=== PATIENT | female | born 1945 | race Caucasian/White ===

== ENCOUNTER 2017-12-30 09:44 | Inpatient (IN) | payer MEDICARE, OTHER, SELFPAY ==
[2017-12-30] VITALS (24 sets, daily range): BP systolic 100–158; BP diastolic 59–105; PULSE 90–140; RESP 14–22; TEMP 36.3–37; O2SAT 94–98; BMI 31.9; BMI 30.9
--- NOTE | 2017-12-30 10:03 | EKG12_ITS ---
Test Reason : Blood Pressure : / mmHG Vent. Rate : 131 BPM Atrial Rate : 120 BPM P-R Int : 000 ms QRS Dur : 088 ms QT Int : 330 ms P-R-T Axes : 000 -17 043 degrees QTc Int : 487 ms Atrial fibrillation Anteroseptal infarct , age undetermined Abnormal ECG Confirmed by ELOISE GILBERT, JAXON ([id number]), science editor NORMA SALEH ([id number] on 01/01/2018 3:28:32 PM Referred By: PRITI Confirmed By:JAXON NAVAS MD
--- NOTE | 2017-12-30 10:03 | RAD_ITS ---
STUDY: X-RAY CHEST REASON FOR EXAM: Female, 72 years old. Shortness of breath x5 days TECHNIQUE: Single AP portable view of the chest. COMPARISON: None. FINDINGS: There is hyperinflation of the lungs consistent with chronic obstructive lung disease (COPD). Right lung is clear. There is left upper lobe airspace disease with questionable nodule measuring 3.3 x 1.8 cm. There is no demonstrated pleural abnormality. There is mild cardiac enlargement. Normal mediastinum and mike. Normal visualized pulmonary arteries. Normal visualized aortic arch and descending thoracic aorta. There is a dextroscoliosis of the thoracic spine. Normal visualized ribs, clavicles, and shoulders. There is no demonstrated abnormality of the visualized soft tissue structures of the upper abdomen. RAD/Chest 1 View (Portable) IMPRESSION: Right lung is clear. Left upper lobe airspace disease with possible nodule. Underlying neoplastic process cannot be excluded with post obstructive pneumonia. Recommend CT chest to further evaluate Electronically Signed: Vishal Ruiz DO at 10:45 EDT Tel , Service support ,
[2017-12-30 10:14] LABS: Absolute Lymphocyte Count 1.65 X10^3/ul (0.83-4.51); Basophil# 0.03 X10^3/uL; Basophil% 0.5 % (0-1); Eosinophil# 0.14 X10^3/uL; Eosinophils% 2.2 % (0-5); Hematocrit 47.9 % (37-47); Hemoglobin 15.3 g/dl (12.0-15.0); Lymphocyte # 1.65 X10^3/ul (4.0); Lymphocyte % 25.9 % (19-41); Mean Corp Hgb Conc 31.9 g/gl (32-36); Mean Corpuscular Hgb 32.1 pg (27.0-32.0); Mean Corpuscular Volume 100.6 fL (81-99); Mean Platelet Vol. 9.2 fl (6.2-12.0); Monocyte# 0.52 X10^3/uL; Monocyte% 8.2 % (0-10); Neutrophil # 4.01 X10^3/uL (2.7-7.7); Platelet Count 234 K/mm3 (150-450); RBC Distribution Width SD 47.3 fl (35.1-43.9); Red Blood Count 4.76 M/mm3 (4.2-5.4); White Blood Count 6.4 K/mm3 (4.4-11.0)
[2017-12-30 10:18] LABS: POSITIVE COUNT NO; POSITIVE DIFFERENTIAL NO; POSITIVE MORPHOLOGY NO
[2017-12-30] MEDS: dilTIAZem 25 MG/5 ML Vial 20 MG IV BOLUS (10:24)
[2017-12-30 10:27] LABS: Anion Gap 8 (5-15); BUN 6 mg/dL (7-18); BUN/Creat Ratio 6.3 RATIO (10-20); Calcium,Total 9.7 mg/dL (8.5-10.1); Chloride 102 mmol/L (98-107); Creatinine, Serum 0.94 mg/dL (0.55-1.02); EST Glomerular Filtration Rate 62 mL/min (>60); Est Glom Filt Rate - Afr Amer 75 mL/min (>60); Glucose 112 mg/dL (74-106); Potassium 3.9 mmol/L (3.5-5.1); Sodium Level 140 mmol/L (136-145)
--- NOTE | 2017-12-30 11:09 | CT_ITS ---
STUDY: CTA CHEST REASON FOR EXAM: Female, 72 years old. Chest pain and shortness of breath. Possible chest mass. RADIATION DOSAGE (If Supplied By Facility): CTDIvol = ( 11.9 ) mGy, DLP = ( 506.09 ) mGycm TECHNIQUE: The examination was performed with the intravenous administration of 100 ml of Isovue 300 contrast material. Post-processing of the angiographic images was performed, with multiplanar reformation and 3D reconstruction. Individualized dose optimization techniques were used for this CT. COMPARISON: 07/17/2010 FINDINGS: Normal enhancement of the main pulmonary artery and right and left pulmonary arteries. Normal enhancement of the bilateral peripheral pulmonary arteries. There is no demonstrated pulmonary embolism. Normal thoracic aorta and visualized great vessels. There is no demonstrated aortic dissection. Mild cardiomegaly. There is a component of pectus excavatum. Normal mediastinum. Normal hilar regions. Normal visualized trachea and bronchi. The lungs are hyper expanded, with flattening of the hemidiaphragms. Small amount of right lower lobe infiltrate could represent infection. Normal pleura. In the left hemithorax, there again is noted to be a dense calcified mass involving the third rib anteriorly. Patient is status post left mastectomy with left axillary lymph node dissection. This calcified mass involving the rib is essentially unchanged however, there has been development of a soft tissue mass versus area of scarring in the left upper lobe measuring 2.9 x 1.9 cm. No other pulmonary masses or nodules are seen. Unsure if this is radiation scarring versus recurrent disease. There is thickening of the skin of the right breast suggesting prior radiation involvement as well. Remaining osseous structures demonstrate degenerative change with some scoliosis. Normal visualized upper abdomen. CT/CTA Chest W/WO Contrast IMPRESSION: 1. Negative for pulmonary emphysema or thoracic aortic dissection 2. As compared to the exam from 2009, there is a stable calcified mass involving the left anterior third rib and chest wall however, there has been development of a spiculated masslike lesion in the left upper lobe measuring 2.9 x 1.9 cm. Recurrent or metastatic disease cannot be excluded. However, this may be related to post radiation changes. PET/CT versus tissue sampling may be needed to further evaluate 3. Subtle right lower lobe infiltrate could represent infection 4. Patient is status post left mastectomy with left axillary lymph node dissection. Postradiation changes noted of the right breast with skin thickening. Electronically Signed: Visahl Ruiz DO at 14:33 EDT Tel , Service support ,
[2017-12-30] MEDS: dilTIAZem 25 MG/5 ML Vial IV BOLUS (11:28)
--- NOTE | 2017-12-30 12:22 | ED.RN ---
WENT TO [facility]MED[facility] PT FOR CT SCAN WITH CONTRAST. PT APREHENSIVE AND WOUND LIKE TO DISCUSS WITH DR PRIOR TO MEDS/TEST
[2017-12-30] MEDS: DiphenhydrAMINE 50 MG/ML Syringe IV (12:33)
[2017-12-30] MEDS: MethylPREDNISolone 125 MG/2 ML Vial IV (12:33)
--- NOTE | 2017-12-30 15:03 | ED.VISSUMM ---
- ER Visit Summary Date of Service: 12/30/17 Chief Complaint: [Shortness of breath] History of Present Illness: The patient is a 72 F [presents with shortness of breath that started about 2 weeks ago. Patient also describes exertional dyspnea. Patient denies any chest pain or palpitations. Patient's legs have been swollen for about 4 days. Patient is gained about 5 pounds. Patient seen by primary care physician today sent to the ER for further workup and evaluation. Patient had EKG in the office that showed new onset A. fib RVR.] Physical Examination: [HEENT-PERRLA, EOMI. Cranial nerves II through XII grossly intact. TMs clear. Mucous membranes moist. No adenopathy. Cardiovascular-irregularly irregular, no murmurs auscultated. Lungs-clear to auscultation, chest wall stable without crepitus or subcu emphysema Abdomen-normoactive bowel sounds, soft, nontender, no rebound or rigidity, no peritoneal signs. Extremities-intact ?4, normal range of motion, normal pulses, atraumatic]. Patient has +2 edema both lower extremities. Test Results: EKG obtained on arrival showed atrial fibrillation with a ventricular rate of 131 bpm. Questionable old anterior wall infarct noted. CBC with differential obtained showed a white blood cell count of 6.4, hemoglobin 15, hematocrit 48, platelets 234. Chemistries unremarkable. Troponin was less than 0.02. BNP was 223. Chest x-ray showed questionable nodule left upper lobe and they recommended obtaining a CT scan to evaluate further. CT scan of the chest with IV contrast showed no evidence for PE or dissection. Patient was noted to have a left upper lobe spiculated mass which could be from prior radiation or may represent a cancerous lesion potentially. Patient tells me that she has had some scarring in the left upper lobe from prior radiation that she is aware of. Radiology recommended potentially obtaining a PET scan to evaluate further. [] Emergency Department Course and Treatment: [Patient was started on a Cardizem drip] Treatment Plan: [Admit for further workup and evaluation] Disposition: [Admit] Impression: [Atrial fibrillation with rapid ventricular response-new onset] This note was generated with [email or web address] dictation software. It may contain incorrect words, spelling, and punctuation that were not noted in review of the chart prior to signing ED Disposition - Plan for ED Patient: Chief Complaint: Palpitations Referrals: Juan Brandt MD [Primary Care Provider] -
--- NOTE | 2017-12-30 15:38 | PCM.HP.STD ---
Problem List (1) Acute CHF Status: Acute (2) New onset A. fib with RVR Status: Acute (3) History of breast cancer Status: Chronic (4) COPD (chronic obstructive pulmonary disease) Status: Chronic (5) Hypertension Status: Chronic History of Present Illness Date of Admission: 12/30/17 Chief Complaint: Shortness of breath. The patient is a 72 year old F with past medical history as mentioned above presented to the medicine because of shortness of breath. Her symptoms started around 2 weeks ago with progressive shortness of breath, initially was with moderate exertion that progressed to become even with minimal exertion and sometimes at rest, aggravated by activity, minimally relieved with rest associated with leg swelling more on the right leg as well as orthopnea. She mentioned that she sleeps on a recliner because of her back pain but over the last week, she has been also complaining of shortness of breath when she lay flat. She denied associated chest pain, dictation, dizziness or lightheadedness. Today, she went to her PCPs office for bilateral leg swelling and shortness of breath, EKG performed and she was found to be in A. fib with RVR and she was sent to the emergency department for evaluation. In the emergency room, she was in A. fib with RVR, heart rate has been in the 130s, blood pressure stable. She was dyspneic and tachypneic, pulse ox was 97% on room air. She was afebrile. Her routine blood work was unremarkable. Troponin was negative. BNP was 223. Her EKG revealed A. fib with RVR, rate has been in 130s, no acute ischemic changes. Chest x-ray revealed left upper lobe opacity, irregular. CTA chest revealed no evidence of PE or dissection, revealed spiculated masslike lesion in the left upper lobe which could be due to lung scarring versus possible metastasis. The patient mentioned that she is aware that she has lung scarring on the left upper lung and her doctor is aware of this as well. Admitted for new onset A. fib with RVR and acute probably systolic CHF. Past Medical History Past Medical History (Chronic Problems): Chronic Problems History of breast cancer (Chronic) COPD (chronic obstructive pulmonary disease) (Chronic) Hypertension (Chronic) Allergies albuterol sulfate [From Combivent] Allergy (Verified 12/30/17 09:50) Swelling ipratropium bromide [From Combivent] Allergy (Verified 12/30/17 09:50) Swelling metoprolol Allergy (Verified 12/30/17 09:50) Laryngospasms Sulfa (Sulfonamide Antibiotics) Allergy (Verified 12/30/17 09:50) Rash beclomethasone [From Qvar] Adverse Reaction (Verified 12/30/17 09:50) COUGHING benzalkonium chloride [From Merthiolate (benzalkonium)] Adverse Reaction (Verified 12/30/17 09:50) Other codeine Adverse Reaction (Verified 12/30/17 09:50) Other doxycycline Adverse Reaction (Verified 12/30/17 09:50) Abd cramps/diarrhea formoterol fumarate [From Dulera] Adverse Reaction (Verified 12/30/17 09:50) Other hydrochlorothiazide Adverse Reaction (Verified 12/30/17 09:50) Other ibuprofen [From Advil] Adverse Reaction (Verified 12/30/17 09:50) Other iodine Adverse Reaction (Verified 12/30/17 09:50) Itching merbromin Adverse Reaction (Verified 12/30/17 09:50) Other mometasone furoate [From Dulera] Adverse Reaction (Verified 12/30/17 09:50) Other prednisone Adverse Reaction (Verified 12/30/17 09:50) Abd cramps/diarrhea PLASTIC TAPE Allergy (Uncoded 12/30/17 09:50) Rash Home Medications: Ambulatory Orders Medication Instructions Recorded Amlodipine [Norvasc] 5 mg PO DAILY 04/11/15 Doxazosin Mesylate [Cardura] 0.5 mg PO QHS 04/11/15 Fluticasone/Salmeterol [Advair 1 puff INHALATION BID 04/11/15 250/50 Mcg Diskus] Quinapril HCl [Accupril] 20 mg PO BID 04/11/15 Acetaminophen [Tylenol] 325 mg PO PRN PRN 10/16/16 Albuterol Inhaler [Ventolin Hfa 1 - 2 puff INHALATION Q4H PRN PRN 10/16/16 (SP)] Multivitamins,Therapeutic 1 tablet PO DAILY 10/16/16 [Multivitamin] Vitamin B Complex 1 each PO DAILY 10/16/16 Vitamin E 400 unit PO DAILY 10/16/16 Surgical History: mastectomy Psychiatric History: No pertinent psych hx MEDICAL RESEARCHER 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 Denies: Chest Pain, Chest Pressure, Light Headedness, Orthopnea, Paroxysmal Noc. Dyspnea, Syncope Respiratory: Reports: Cough, Shortness of Breath, Shortness of breath at rest, Shortness of breath upon exertion. Denies: Pleuritic Pain, Sputum production, Wheezing Gastrointestinal: Denies: Abdominal Pain, Constipation, Diarrhea, Nausea, Vomiting Genitourinary: Denies: Dysuria, Frequency, Hematuria Musculoskeletal: Denies: Arm Pain, Back Pain Skin: Denies: Dryness, Rash Neurological: Denies: Balance problems, Double vision, Slurred speech, Confusion, Headaches, Incoordination Psychiatric: Denies: Anxiety, Depression Endocrine: Denies: Change in Body Habitus, Polydipsia VTE Information - Inpt Only VTE Present on Admission: No VTE Mechan Device Prophylaxis: None VTE Pharm Prophylaxis ordered?: No Patient Problems: Active and Suspected Problems Acute CHF (Acute) New onset A. fib with RVR (Acute) - Physical Exam General: Alert, Oriented x3, Cooperative, - - Moderately short of breath. HEENT: Atraumatic, PERRLA, EOMI Oral: Moist Mucosa, No Gingival or Mucosal Lesions/ Ulcerations Neck: Supple, No JVD, Negative Carotid Bruits, Trachea Midline, Thyroid Normal Size and Texture Lungs: No wheeze, Diminished, Rales, Rhonchi, Short of Breath, - - Decreased breath sounds at the bases, bilateral basal crackles, rhonchi. Cardiovascular: Normal S1, Normal S2, No murmurs, PMI Normal, Irregular Rate, Tachycardic Abdomen: Bowel Sounds Present, Soft, Non Tender, Non-Distended, No Hepato-splenomegaly Extremities: No clubbing, No cyanosis, Edema - Trace edema on the left leg,++ edema on the right leg. Skin: No rashes, No breakdown Lymphatic: No Cervical, Supraclavicular, or Inguinal Adenopathy Neurological: Cranial nerves II-XII grossly intact, Motor Exam 5/5 strength throughout Psych/Mental Status: Normal Affect, Appropriate, Alert and oriented to time, place, person, mood and affect Vital Signs Temp Pulse Resp BP Pulse Ox 98.2 F 115 H 20 H 123/90 H 96 12/30/17 09:46 12/30/17 15:35 12/30/17 15:35 12/30/17 15:35 12/30/17 15:35 Laboratory Tests 12/30/17 12/30/17 12/30/17 Range/Units 10:00 10:00 10:00 WBC 6.4 (4.4-11.0) K/mm3 RBC 4.76 (4.2-5.4) M/mm3 Hgb 15.3 H (12.0-15.0) g/dl Hct 47.9 H (37-47) % MCV 100.6 H (81-99) fL MCH 32.1 H (27.0-32.0) pg MCHC 31.9 L (32-36) g/gl RDW 13.0 (11.6-14.6) % RDW Differential 47.3 H (35.1-43.9) fl Plt Count 234 (150-450) K/mm3 MPV 9.2 (6.2-12.0) fl Immature Gran % (Auto) 0.200 (0.0-0.9) % Neut % (Auto) 63.0 (47-70) % Lymph % (Auto) 25.9 (19-41) % [place] % (Auto) 8.2 (0-10) % Eos % (Auto) 2.2 (0-5) % Baso % (Auto) 0.5 (0-1) % Absolute Neuts (auto) 4.0 (2.0-7.7) X10^3/uL Absolute Lymphs (auto) 1.65 (0.83-4.51) X10^3/ul Total Counted Not Reportable Sodium 140 (136-145) mmol/L Potassium 3.9 (3.5-5.1) mmol/L Chloride 102 (98-107) mmol/L Carbon Dioxide 30.0 (21.0-32.0) mmol/L Anion Gap 8 (5-15) BUN 6 L (7-18) mg/dL Creatinine 0.94 (0.55-1.02) mg/dL Estim Creat Clear Calc 47.40 ml/min Est GFR (MDRD) Af Amer 75 (>60) mL/min Est GFR (MDRD) Non-Af 62 (>60) mL/min BUN/Creatinine Ratio 6.3 L (10-20) RATIO Glucose 112 H (74-106) mg/dL Calcium 9.7 (8.5-10.1) mg/dL Troponin I < 0.02 (<0.06) ng/mL B-Natriuretic Peptide 223.0 H (0-100) pg/mL Clinical Impression(s) from Imaging Studies Chest X-Ray 12/30/17 10:03 IMPRESSION: Right lung is clear. Left upper lobe airspace disease with possible nodule. Underlying neoplastic process cannot be excluded with post obstructive pneumonia. Recommend CT chest to further evaluate Electronically Signed: Vishal Ruiz DO at 10:45 EDT Tel , Service support , Chest CTA 12/30/17 11:09 IMPRESSION: 1. Negative for pulmonary emphysema or thoracic aortic dissection 2. As compared to the exam from 2009, there is a stable calcified mass involving the left anterior third rib and chest wall however, there has been development of a spiculated masslike lesion in the left upper lobe measuring 2.9 x 1.9 cm. Recurrent or metastatic disease cannot be excluded. However, this may be related to post radiation changes. PET/CT versus tissue sampling may be needed to further evaluate 3. Subtle right lower lobe infiltrate could represent infection 4. Patient is status post left mastectomy with left axillary lymph node dissection. Postradiation changes noted of the right breast with skin thickening. Electronically Signed: Vishal Ruiz DO at 14:33 EDT Tel , Service support , Assessment/Plan Active and Suspected Problems Acute CHF (Acute) New onset A. fib with RVR (Acute) This is a 72 years old female patient seen because of shortness of breath and leg swelling and she was found to have new onset A. fib with RVR and acute probably systolic CHF. #1 new onset/newly diagnosed A. fib with RVR: Reviewed, revealed A. fib with RVR, rate has been in 130s, no acute ischemic changes. Patient received 2 bolus of IV Cardizem and she remained in 130s, blood pressure stable and she was started on IV Cardizem drip. First troponin is negative. Plan: Admit to PCU, cardiac monitoring, serial cardiac enzymes, repeat EKG tomorrow morning, continue IV Cardizem drip, start therapeutic Lovenox twice daily, TSH, serum magnesium, 2D echocardiogram, cardiology consult. Her [id number] is 4 and she is at moderate risk of stroke and she is a candidate for anticoagulation. #2 acute probably systolic CHF: This is based on symptoms of shortness of breath, leg edema and orthopnea as well as elevated BNP and chest x-ray findings. Plan: Diuresis with IV Lasix, 2D echocardiogram, further dissection to less than 1500 cc daily, continue Accupril. , Cardiology consult. She is allergic to beta-blockers. #3 questionable left upper lobe mass: CTA chest reviewed, revealed left upper lobe spiculated masslike. Patient mentioned she is aware she has scarring on her left lung due to radiation to her left breast cancer many years ago. I would recommend follow-up with her oncologist upon discharge. #3 history of breast cancer status post total left mastectomy and right lumpectomy: Status post chemotherapy and radiation. In remission at this time, plan to follow-up with her PCP and oncology as outpatient. #5 hypertension: Blood pressure stable, continue Norvasc and Accupril. #6 COPD: Pulse ox is normal on room air. She is allergic to albuterol and ipratropium bromide. Plan to continue Ventolin inhaler and Advair. #7 DVT prophylaxis: She will be on therapeutic Lovenox twice daily. This note was generated with [employer] dictation software. It may contain incorrect words, spelling, and punctuation that were not noted in checking the note before signing. Code Visit Inpatient E&M: 72712 Init Hosp L3
--- NOTE | 2017-12-30 15:52 | HP.PCM_ITS ---
Problem List (1) Acute CHF Status: Acute (2) New onset A. fib with RVR Status: Acute (3) History of breast cancer Status: Chronic (4) COPD (chronic obstructive pulmonary disease) Status: Chronic (5) Hypertension Status: Chronic History of Present Illness Date of Admission: 12/30/17 Chief Complaint: Shortness of breath. The patient is a 72 year old F with past medical history as mentioned above presented to the medicine because of shortness of breath. Her symptoms started around 2 weeks ago with progressive shortness of breath, initially was with moderate exertion that progressed to become even with minimal exertion and sometimes at rest, aggravated by activity, minimally relieved with rest associated with leg swelling more on the right leg as well as orthopnea. She mentioned that she sleeps on a recliner because of her back pain but over the last week, she has been also complaining of shortness of breath when she lay flat. She denied associated chest pain, dictation, dizziness or lightheadedness. Today, she went to her PCPs office for bilateral leg swelling and shortness of breath, EKG performed and she was found to be in A. fib with RVR and she was sent to the emergency department for evaluation. In the emergency room, she was in A. fib with RVR, heart rate has been in the 130s, blood pressure stable. She was dyspneic and tachypneic, pulse ox was 97% on room air. She was afebrile. Her routine blood work was unremarkable. Troponin was negative. BNP was 223. Her EKG revealed A. fib with RVR, rate has been in 130s, no acute ischemic changes. Chest x-ray revealed left upper lobe opacity, irregular. CTA chest revealed no evidence of PE or dissection, revealed spiculated masslike lesion in the left upper lobe which could be due to lung scarring versus possible metastasis. The patient mentioned that she is aware that she has lung scarring on the left upper lung and her doctor is aware of this as well. Admitted for new onset A. fib with RVR and acute probably systolic CHF. Past Medical History Past Medical History (Chronic Problems): Chronic Problems History of breast cancer (Chronic) COPD (chronic obstructive pulmonary disease) (Chronic) Hypertension (Chronic) Allergies albuterol sulfate [From Combivent] Allergy (Verified 12/30/17 09:50) Swelling ipratropium bromide [From Combivent] Allergy (Verified 12/30/17 09:50) Swelling metoprolol Allergy (Verified 12/30/17 09:50) Laryngospasms Sulfa (Sulfonamide Antibiotics) Allergy (Verified 12/30/17 09:50) Rash beclomethasone [From Qvar] Adverse Reaction (Verified 12/30/17 09:50) COUGHING benzalkonium chloride [From Merthiolate (benzalkonium)] Adverse Reaction ( Verified 12/30/17 09:50) Other codeine Adverse Reaction (Verified 12/30/17 09:50) Other doxycycline Adverse Reaction (Verified 12/30/17 09:50) Abd cramps/diarrhea formoterol fumarate [From Dulera] Adverse Reaction (Verified 12/30/17 09:50) Other hydrochlorothiazide Adverse Reaction (Verified 12/30/17 09:50) Other ibuprofen [From Advil] Adverse Reaction (Verified 12/30/17 09:50) Other iodine Adverse Reaction (Verified 12/30/17 09:50) Itching merbromin Adverse Reaction (Verified 12/30/17 09:50) Other mometasone furoate [From Dulera] Adverse Reaction (Verified 12/30/17 09:50) Other prednisone Adverse Reaction (Verified 12/30/17 09:50) Abd cramps/diarrhea PLASTIC TAPE Allergy (Uncoded 12/30/17 09:50) Rash Home Medications: Ambulatory Orders Medication Instructions Recorded Amlodipine [Norvasc] 5 mg PO DAILY 04/11/15 Doxazosin Mesylate [Cardura] 0.5 mg PO QHS 04/11/15 Fluticasone/Salmeterol [Advair 1 puff INHALATION BID 04/11/15 250/50 Mcg Diskus] Quinapril HCl [Accupril] 20 mg PO BID 04/11/15 Acetaminophen [Tylenol] 325 mg PO PRN PRN 10/16/16 Albuterol Inhaler [Ventolin Hfa 1 - 2 puff INHALATION Q4H PRN PRN 10/16/16 (SP)] Multivitamins,Therapeutic 1 tablet PO DAILY 10/16/16 [Multivitamin] Vitamin B Complex 1 each PO DAILY 10/16/16 Vitamin E 400 unit PO DAILY 10/16/16 Surgical History: mastectomy Psychiatric History: No pertinent psych hx 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 Denies: Chest Pain, Chest Pressure, Light Headedness, Orthopnea, Paroxysmal Noc. Dyspnea, Syncope Respiratory: Reports: Cough, Shortness of Breath, Shortness of breath at rest, Shortness of breath upon exertion. Denies: Pleuritic Pain, Sputum production, Wheezing Gastrointestinal: Denies: Abdominal Pain, Constipation, Diarrhea, Nausea, Vomiting Genitourinary: Denies: Dysuria, Frequency, Hematuria Musculoskeletal: Denies: Arm Pain, Back Pain Skin: Denies: Dryness, Rash Neurological: Denies: Balance problems, Double vision, Slurred speech, Confusion , Headaches, Incoordination Psychiatric: Denies: Anxiety, Depression Endocrine: Denies: Change in Body Habitus, Polydipsia VTE Information - Inpt Only VTE Present on Admission: No VTE Mechan Device Prophylaxis: None VTE Pharm Prophylaxis ordered?: No Patient Problems: Active and Suspected Problems Acute CHF (Acute) New onset A. fib with RVR (Acute) - Physical Exam General: Alert, Oriented x3, Cooperative, - - Moderately short of breath. HEENT: Atraumatic, PERRLA, EOMI Oral: Moist Mucosa, No Gingival or Mucosal Lesions/ Ulcerations Neck: Supple, No JVD, Negative Carotid Bruits, Trachea Midline, Thyroid Normal Size and Texture Lungs: No wheeze, Diminished, Rales, Rhonchi, Short of Breath, - - Decreased breath sounds at the bases, bilateral basal crackles, rhonchi. Cardiovascular: Normal S1, Normal S2, No murmurs, PMI Normal, Irregular Rate, Tachycardic Abdomen: Bowel Sounds Present, Soft, Non Tender, Non-Distended, No Hepato- splenomegaly Extremities: No clubbing, No cyanosis, Edema - Trace edema on the left leg,++ edema on the right leg. Skin: No rashes, No breakdown Lymphatic: No Cervical, Supraclavicular, or Inguinal Adenopathy Neurological: Cranial nerves II-XII grossly intact, Motor Exam 5/5 strength throughout Psych/Mental Status: Normal Affect, Appropriate, Alert and oriented to time, place, person, mood and affect Vital Signs Temp Pulse Resp BP Pulse Ox 98.2 F 115 H 20 H 123/90 H 96 12/30/17 09:46 12/30/17 15:35 12/30/17 15:35 12/30/17 15:35 12/30/17 15:35 Laboratory Tests 3 12/30/17 12/30/17 12/30/17 Range/Units 10:00 10:00 10:00 WBC 6.4 (4.4-11.0) K/mm3 RBC 4.76 (4.2-5.4) M/mm3 Hgb 15.3 H (12.0-15.0) g/dl Hct 47.9 H (37-47) % MCV 100.6 H (81-99) fL MCH 32.1 H (27.0-32.0) pg MCHC 31.9 L (32-36) g/gl RDW 13.0 (11.6-14.6) % RDW Differential 47.3 H (35.1-43.9) fl Plt Count 234 (150-450) K/mm3 MPV 9.2 (6.2-12.0) fl Immature Gran % (Auto) 0.200 (0.0-0.9) % Neut % (Auto) 63.0 (47-70) % Lymph % (Auto) 25.9 (19-41) % [place] % (Auto) 8.2 (0-10) % Eos % (Auto) 2.2 (0-5) % Baso % (Auto) 0.5 (0-1) % Absolute Neuts (auto) 4.0 (2.0-7.7) X10^3/uL Absolute Lymphs (auto) 1.65 (0.83-4.51) X10^3/ul Total Counted Not Reportable Sodium 140 (136-145) mmol/L Potassium 3.9 (3.5-5.1) mmol/L Chloride 102 (98-107) mmol/L Carbon Dioxide 30.0 (21.0-32.0) mmol/L Anion Gap 8 (5-15) BUN 6 L (7-18) mg/dL Creatinine 0.94 (0.55-1.02) mg/dL Estim Creat Clear Calc 47.40 ml/min Est GFR (MDRD) Af Amer 75 (>60) mL/min Est GFR (MDRD) Non-Af 62 (>60) mL/min BUN/Creatinine Ratio 6.3 L (10-20) RATIO Glucose 112 H (74-106) mg/dL Calcium 9.7 (8.5-10.1) mg/dL Troponin I < 0.02 (<0.06) ng/mL B-Natriuretic Peptide 223.0 H (0-100) pg/mL Clinical Impression(s) from Imaging Studies Chest X-Ray 12/30/17 10:03 IMPRESSION: Right lung is clear. Left upper lobe airspace disease with possible nodule. Underlying neoplastic process cannot be excluded with post obstructive pneumonia. Recommend CT chest to further evaluate Electronically Signed: Vishal Ruiz DO at 10:45 EDT Tel , Service support , Chest CTA 12/30/17 11:09 IMPRESSION: 1. Negative for pulmonary emphysema or thoracic aortic dissection 2. As compared to the exam from 2009, there is a stable calcified mass involving the left anterior third rib and chest wall however, there has been development of a spiculated masslike lesion in the left upper lobe measuring 2.9 x 1.9 cm. Recurrent or metastatic disease cannot be excluded. However, this may be related to post radiation changes. PET/CT versus tissue sampling may be needed to further evaluate 3. Subtle right lower lobe infiltrate could represent infection 4. Patient is status post left mastectomy with left axillary lymph node dissection. Postradiation changes noted of the right breast with skin thickening. Electronically Signed: Vishal Ruiz DO at 14:33 EDT Tel , Service support , Assessment/Plan Active and Suspected Problems Acute CHF (Acute) New onset A. fib with RVR (Acute) This is a 72 years old female patient seen because of shortness of breath and leg swelling and she was found to have new onset A. fib with RVR and acute probably systolic CHF. #1 new onset/newly diagnosed A. fib with RVR: Reviewed, revealed A. fib with RVR , rate has been in 130s, no acute ischemic changes. Patient received 2 bolus of IV Cardizem and she remained in 130s, blood pressure stable and she was started on IV Cardizem drip. First troponin is negative. Plan: Admit to PCU, cardiac monitoring, serial cardiac enzymes, repeat EKG tomorrow morning, continue IV Cardizem drip, start therapeutic Lovenox twice daily, TSH, serum magnesium, 2D echocardiogram, cardiology consult. Her [id number] is 4 and she is at moderate risk of stroke and she is a candidate for anticoagulation. #2 acute probably systolic CHF: This is based on symptoms of shortness of breath , leg edema and orthopnea as well as elevated BNP and chest x-ray findings. Plan: Diuresis with IV Lasix, 2D echocardiogram, further dissection to less than 1500 cc daily, continue Accupril. , Cardiology consult. She is allergic to beta-blockers. #3 questionable left upper lobe mass: CTA chest reviewed, revealed left upper lobe spiculated masslike. Patient mentioned she is aware she has scarring on her left lung due to radiation to her left breast cancer many years ago. I would recommend follow-up with her oncologist upon discharge. #3 history of breast cancer status post total left mastectomy and right lumpectomy: Status post chemotherapy and radiation. In remission at this time, plan to follow-up with her PCP and oncology as outpatient. #5 hypertension: Blood pressure stable, continue Norvasc and Accupril. #6 COPD: Pulse ox is normal on room air. She is allergic to albuterol and ipratropium bromide. Plan to continue Ventolin inhaler and Advair. #7 DVT prophylaxis: She will be on therapeutic Lovenox twice daily. This note was generated with Optimus dictation software. It may contain incorrect words, spelling, and punctuation that were not noted in checking the note before signing. Code Visit Inpatient E&M: 67650 Init Hosp L3
--- NOTE | 2017-12-30 16:16 | ECHOD_ITS ---
Reason For Study: AFIB/FLUTTER Procedure This was a 2D Doppler, Color Flow transthoracic echocardiogram. The study was technically difficult. Due to arrhythmia and left breast mastectomy. Exam performed portable in patient room. Left Ventricle Mild concentric left ventricular hypertrophy. The estimated ejection fraction is 60 %. No regional wall motion abnormalities noted. Right Ventricle Normal size and thickness. Normal systolic function. Atria The left atrium is moderately enlarged. The right atrium is mildly enlarged. Normal atrial septum. Mitral Valve Mild diffuse mitral valve thickening. Severe mitral annular calcification extending into the posterior leaflet. Mild (1+) mitral valve insufficiency. Tricuspid Valve Normal tricuspid valve. Trivial tricuspid valve insufficiency. Right ventricular systolic pressure estimated to be 43 mmHg. Mild pulmonary hypertension. Aortic Valve Trisinus/trileaflet aortic valve. Mild diffuse aortic valve thickening. Pulmonic Valve Normal pulmonic valve. Great Vessels Normal aortic root. Normal arch. Normal inferior vena cava. Inferior vena cava collapse with sniff. Pericardium/Pleural Trivial pericardial effusion. There are no echocardiographic indications of cardiac tamponade. MMode/2D Measurements & Calculations LVIDd: 3.9 cm IVSd: 1.3 cm Ao root diam: 2.4 cm LVIDs: 3.1 cm LVPWd: 1.2 cm LA dimension: 4.4 cm RVDd: 2.8 cm FS: 21.5 % LAV(MOD-bp): 85.0 ml LA A4 area: 24.6 cm2 RA A4 area: 21.8 cm2 LAV(MOD-bp) Indexed: 44.9 ml/m2 LAV(MOD-sp2): 84.2 ml LAV(MOD-sp4): 76.1 ml Doppler Measurements & Calculations MV E max cas: 123.9 cm/sec Ao V2 max: 155.1 cm/sec LV V1 max: 88.9 cm/sec Ao max P.7 mmHg LV V1 max P.2 mmHg PA V2 max: 94.2 cm/sec TR max cas: 256.5 cm/sec TR max P.3 mmHg Interpretation Summary Mild concentric left ventricular hypertrophy. The estimated ejection fraction is 60 %. The left atrium is moderately enlarged. The right atrium is mildly enlarged. Mild (1+) mitral valve insufficiency. Trivial tricuspid valve insufficiency. Right ventricular systolic pressure estimated to be 43 mmHg. Mild pulmonary hypertension. Trivial pericardial effusion. There are no echocardiographic indications of cardiac tamponade. PT appears to be in atrial fibrillation. There is no comparison study available. The study was technically difficult. Ordering Physician: Leno Croft Referring Physician: Juan Brandt Performed By: Arlette Fulton, JESUS, RVT
--- NOTE | 2017-12-30 16:16 | VDLE_ITS ---
Reason For Study: swelling RIGHT GSV is normal. CFV is compressible, spontaneous, phasic, competent and demonstrates normal augmentation. FV is compressible, spontaneous, phasic, competent and demonstrates normal augmentation. POP V is compressible, spontaneous, phasic, competent and demonstrates normal augmentation. T/P Trunk is compressible. PTV is compressible. RT PerV is compressible. Procedure Exam performed portable in patient room. The exam was diagnostic. A preliminary report was called and/or faxed to the pt's RN. Interpretation Summary There is no evidence of right lower extremity deep vein thrombosis. Right greater saphenous vein appears patent and compressible segmentally. Ordering Physician: Leno Croft Performed By: Edward Manriquez RVT
[2017-12-30 17:12] LABS: International Normalized Ratio 1.1
[2017-12-30] MEDS: Furosemide 40 MG/4 ML Vial IV (17:15)
[2017-12-30] MEDS: Enoxaparin 80 MG/0.8 ML Syringe SC (17:41)
[2017-12-30 18:03] LABS: Thyroid Stim Hormone (TSH) 1.09 uIU/mL (0.358-3.74)
--- NOTE | 2017-12-30 19:00 | PCM.CONS.C ---
Reason for Consult Date of Consultation: 12/30/17 Reason for Consultation: Shortness of breath and irregular heartbeat History of Present Illness: The patient is a 72 year old F with past medical history as mentioned above presented to the medicine because of shortness of breath. Her symptoms started around 2 weeks ago with progressive shortness of breath, initially was with moderate exertion that progressed to become even with minimal exertion and sometimes at rest, aggravated by activity, minimally relieved with rest associated with leg swelling more on the right leg as well as orthopnea. She denied any chest pain or palpitations or paroxysmal nocturnal dyspnea. She has not had any dizziness or diaphoresis no near syncope or syncope. Today, she went to her PCPs office for bilateral leg swelling and shortness of breath, EKG performed and she was found to be in A. fib with RVR and she was sent to the emergency department for evaluation. In the emergency room, she was in A. fib with RVR, heart rate has been in the 130s, blood pressure stable. She was dyspneic and tachypneic, pulse ox was 97% on room air. She was afebrile. Her routine blood work was unremarkable. Troponin was negative. BNP was 223. Her EKG revealed A. fib with RVR, rate has been in 130s, no acute ischemic changes. Chest x-ray revealed left upper lobe opacity, irregular. CTA chest revealed no evidence of PE or dissection, revealed spiculated masslike lesion in the left upper lobe which could be due to lung scarring versus possible metastasis. Cardiology was consulted to evaluate her and assist in management. Past Medical History Allergies/Adverse Reactions: Allergies albuterol sulfate [From Combivent] Allergy (Verified 12/30/17 09:50) Swelling ipratropium bromide [From Combivent] Allergy (Verified 12/30/17 09:50) Swelling metoprolol Allergy (Verified 12/30/17 09:50) Laryngospasms Sulfa (Sulfonamide Antibiotics) Allergy (Verified 12/30/17 09:50) Rash beclomethasone [From Qvar] Adverse Reaction (Verified 12/30/17 09:50) COUGHING benzalkonium chloride [From Merthiolate (benzalkonium)] Adverse Reaction (Verified 12/30/17 09:50) Other codeine Adverse Reaction (Verified 12/30/17 16:34) doesn't remember doxycycline Adverse Reaction (Verified 12/30/17 09:50) Abd cramps/diarrhea fluticasone [From Advair Diskus] Adverse Reaction (Verified 12/30/17 16:36) headache formoterol fumarate [From Dulera] Adverse Reaction (Verified 12/30/17 09:50) Other hydrochlorothiazide Adverse Reaction (Verified 12/30/17 09:50) Other ibuprofen [From Advil] Adverse Reaction (Verified 12/30/17 09:50) Other iodine Adverse Reaction (Verified 12/30/17 09:50) Itching merbromin Adverse Reaction (Verified 12/30/17 09:50) Other mometasone furoate [From Dulera] Adverse Reaction (Verified 12/30/17 09:50) Other oseltamivir [From Tamiflu] Adverse Reaction (Verified 12/30/17 16:32) uterine pain prednisone Adverse Reaction (Verified 12/30/17 09:50) Abd cramps/diarrhea PLASTIC TAPE Allergy (Uncoded 12/30/17 09:50) Rash Home Medications: Ambulatory Orders Medication Instructions Recorded Amlodipine [Norvasc] 5 mg PO DAILY 04/11/15 Doxazosin Mesylate [Cardura] 0.5 mg PO QHS 04/11/15 Fluticasone/Salmeterol [Advair 1 puff INHALATION BID 04/11/15 250/50 Mcg Diskus] Quinapril HCl [Accupril] 20 mg PO BID 04/11/15 Acetaminophen [Tylenol] 325 mg PO Q4H PRN PRN 10/16/16 Albuterol Inhaler [Ventolin Hfa 1 - 2 puff INHALATION Q4H PRN PRN 10/16/16 (SP)] Multivitamins,Therapeutic 1 tablet PO DAILY 10/16/16 [Multivitamin] Vitamin B Complex 1 each PO DAILY 10/16/16 Vitamin E 400 unit PO DAILY 10/16/16 Past Medical History (Chronic Problems): Chronic Problems History of breast cancer (Chronic) COPD (chronic obstructive pulmonary disease) (Chronic) Hypertension (Chronic) Surgical History: mastectomy Psychiatric History: No pertinent psych hx 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 Denies: Fever, Night Sweats Cardiovascular: Reports: Shortness of Breath, Shortness of Breath at Rest, Shortness of Breath with Exertion, Peripheral Edema. Denies: Chest Discomfort, Orthopnea, PND, Palpitations, Lightheadedness, Dizziness, Near Syncope, Syncope Respiratory: Denies: Cough, Sputum Production, Hemoptysis Gastrointestinal: Denies: Hematemesis, Hematochezia, Melena Genitourinary: Denies: Dysuria, Hematuria Skin: Denies: Rash Psychiatric: Reports: Anxiety Subjectve: Elderly lady in no apparent distress. Objective: Vital Signs Temp Pulse Resp BP Pulse Ox 97.9 F 110 H 20 H 113/79 94 12/30/17 16:53 12/30/17 18:00 12/30/17 18:00 12/30/17 18:00 12/30/17 18:00 Oxygen Flow Rate (L/min) 2 Oxygen Delivery Method Nasal Cannula Weight: 180 lb 1.6 oz Body Mass Index (BMI) 30.9 Intake and Output for Last 24 Hours 12/28/17 12/29/17 12/30/17 22:59 23:59 23:59 Intake Total 309.2 / 309.2 Output Total 1100 / 1100 Balance -790.8 / -790.8 General: Awake, Alert, Oriented x 3 HEENT: PERRL, EOMI, Sclera Non Icteric Neck: Supple, Good ROM, No Lymph Node Enlargement Lungs: Diminished Cortes Bases Cardiovascular: Irregular Rhythm, Normal S1, Normal S2, No Murmurs, No Rubs, No Gallops Vascular: No Carotid Bruits, Normal Femoral Pulses, Normal Radial Pulses, Normal Dorsalis Pedal Pulse, Normal Posterior Tibial Pulses Abdomen: Bowel Sounds Present, Soft, Non Tender, No HSM, No Organomegaly Extremities: No Cyanosis, No Clubbing, No edema Neurological: No Focal Motor or Sensory Deficit Psych/Mental Status: Appropriate 12/30/17 16:48: PT 14.0, INR 1.1 12/30/17 16:48: Magnesium 2.0 12/30/17 16:48: Troponin I < 0.02 Rhythm: EKG: Atrial fibrillation with a ventricular response rate of 131 bpm Assessment/Plan #1 Newly diagnosed A. fib with RVR: She has been started on intravenous Cardizem which will be continued for rate control. An echocardiogram should be performed to assess her left ventricular function.. Her [id number] is 4 and she is at moderate risk of stroke and she is a candidate for anticoagulation. My recommendation at this time would be to start her on a factor X inhibitor starting in a.m. #2 Congestive heart failure -acute systolic : This is based on symptoms of shortness of breath, leg edema and orthopnea as well as elevated BNP and chest x-ray findings. Plan: Diuresis with IV Lasix, 2D echocardiogram, further dissection to less than 1500 cc daily, continue Accupril. , She apparently has not tolerated beta-blockers in the past but we may be able to start her on carvedilol after she is off the Cardizem. I would need to exclude chemotherapy or radiation induced cardiomyopathy as an etiology of the above. #3 Hypertension: Blood pressure stable, continue Norvasc and Accupril. Will suggest aggressive management of the above. Thank you for allowing me to participate in the care of your patient. Please don't hesitate to call if any issues arise
[2017-12-30] MEDS: Budesonide Respules 0.5 MG/2 ML AMPUL.NEB. INHALATION (19:01)
[2017-12-30] MEDS: Albuterol 2.5 MG/3 ML VIAL.NEB. INHALATION (19:01)
--- NOTE | 2017-12-30 19:03 | CON.PCM_ITS ---
Reason for Consult Date of Consultation: 12/30/17 Reason for Consultation: Shortness of breath and irregular heartbeat History of Present Illness: The patient is a 72 year old F with past medical history as mentioned above presented to the medicine because of shortness of breath. Her symptoms started around 2 weeks ago with progressive shortness of breath, initially was with moderate exertion that progressed to become even with minimal exertion and sometimes at rest, aggravated by activity, minimally relieved with rest associated with leg swelling more on the right leg as well as orthopnea. She denied any chest pain or palpitations or paroxysmal nocturnal dyspnea. She has not had any dizziness or diaphoresis no near syncope or syncope. Today, she went to her PCPs office for bilateral leg swelling and shortness of breath, EKG performed and she was found to be in A. fib with RVR and she was sent to the emergency department for evaluation. In the emergency room, she was in A. fib with RVR, heart rate has been in the 130s, blood pressure stable. She was dyspneic and tachypneic, pulse ox was 97% on room air. She was afebrile. Her routine blood work was unremarkable. Troponin was negative. BNP was 223. Her EKG revealed A. fib with RVR, rate has been in 130s, no acute ischemic changes. Chest x-ray revealed left upper lobe opacity, irregular. CTA chest revealed no evidence of PE or dissection, revealed spiculated masslike lesion in the left upper lobe which could be due to lung scarring versus possible metastasis. Cardiology was consulted to evaluate her and assist in management. Past Medical History Allergies/Adverse Reactions: Allergies albuterol sulfate [From Combivent] Allergy (Verified 12/30/17 09:50) Swelling ipratropium bromide [From Combivent] Allergy (Verified 12/30/17 09:50) Swelling metoprolol Allergy (Verified 12/30/17 09:50) Laryngospasms Sulfa (Sulfonamide Antibiotics) Allergy (Verified 12/30/17 09:50) Rash beclomethasone [From Qvar] Adverse Reaction (Verified 12/30/17 09:50) COUGHING benzalkonium chloride [From Merthiolate (benzalkonium)] Adverse Reaction ( Verified 12/30/17 09:50) Other codeine Adverse Reaction (Verified 12/30/17 16:34) doesn't remember doxycycline Adverse Reaction (Verified 12/30/17 09:50) Abd cramps/diarrhea fluticasone [From Advair Diskus] Adverse Reaction (Verified 12/30/17 16:36) headache formoterol fumarate [From Dulera] Adverse Reaction (Verified 12/30/17 09:50) Other hydrochlorothiazide Adverse Reaction (Verified 12/30/17 09:50) Other ibuprofen [From Advil] Adverse Reaction (Verified 12/30/17 09:50) Other iodine Adverse Reaction (Verified 12/30/17 09:50) Itching merbromin Adverse Reaction (Verified 12/30/17 09:50) Other mometasone furoate [From Dulera] Adverse Reaction (Verified 12/30/17 09:50) Other oseltamivir [From Tamiflu] Adverse Reaction (Verified 12/30/17 16:32) uterine pain prednisone Adverse Reaction (Verified 12/30/17 09:50) Abd cramps/diarrhea PLASTIC TAPE Allergy (Uncoded 12/30/17 09:50) Rash Home Medications: Ambulatory Orders Medication Instructions Recorded Amlodipine [Norvasc] 5 mg PO DAILY 04/11/15 Doxazosin Mesylate [Cardura] 0.5 mg PO QHS 04/11/15 Fluticasone/Salmeterol [Advair 1 puff INHALATION BID 04/11/15 250/50 Mcg Diskus] Quinapril HCl [Accupril] 20 mg PO BID 04/11/15 Acetaminophen [Tylenol] 325 mg PO Q4H PRN PRN 10/16/16 Albuterol Inhaler [Ventolin Hfa 1 - 2 puff INHALATION Q4H PRN PRN 10/16/16 (SP)] Multivitamins,Therapeutic 1 tablet PO DAILY 10/16/16 [Multivitamin] Vitamin B Complex 1 each PO DAILY 10/16/16 Vitamin E 400 unit PO DAILY 10/16/16 Past Medical History (Chronic Problems): Chronic Problems History of breast cancer (Chronic) COPD (chronic obstructive pulmonary disease) (Chronic) Hypertension (Chronic) Surgical History: mastectomy Psychiatric History: No pertinent psych hx 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 Denies: Fever, Night Sweats Cardiovascular: Reports: Shortness of Breath, Shortness of Breath at Rest, Shortness of Breath with Exertion, Peripheral Edema. Denies: Chest Discomfort, Orthopnea, PND, Palpitations, Lightheadedness, Dizziness, Near Syncope, Syncope Respiratory: Denies: Cough, Sputum Production, Hemoptysis Gastrointestinal: Denies: Hematemesis, Hematochezia, Melena Genitourinary: Denies: Dysuria, Hematuria Skin: Denies: Rash Psychiatric: Reports: Anxiety Subjectve: Elderly lady in no apparent distress. Objective: Vital Signs Temp Pulse Resp BP Pulse Ox 97.9 F 110 H 20 H 113/79 94 12/30/17 16:53 12/30/17 18:00 12/30/17 18:00 12/30/17 18:00 12/30/17 18:00 Oxygen Flow Rate (L/min) 2 Oxygen Delivery Method Nasal Cannula Weight: 180 lb 1.6 oz Body Mass Index (BMI) 30.9 Intake and Output for Last 24 Hours 12/28/17 12/29/17 12/30/17 22:59 23:59 23:59 Intake Total 309.2 / 309.2 Output Total 1100 / 1100 Balance -790.8 / -790.8 General: Awake, Alert, Oriented x 3 HEENT: PERRL, EOMI, Sclera Non Icteric Neck: Supple, Good ROM, No Lymph Node Enlargement Lungs: Diminished Cortes Bases Cardiovascular: Irregular Rhythm, Normal S1, Normal S2, No Murmurs, No Rubs, No Gallops Vascular: No Carotid Bruits, Normal Femoral Pulses, Normal Radial Pulses, Normal Dorsalis Pedal Pulse, Normal Posterior Tibial Pulses Abdomen: Bowel Sounds Present, Soft, Non Tender, No HSM, No Organomegaly Extremities: No Cyanosis, No Clubbing, No edema Neurological: No Focal Motor or Sensory Deficit Psych/Mental Status: Appropriate 12/30/17 16:48: PT 14.0, INR 1.1 12/30/17 16:48: Magnesium 2.0 12/30/17 16:48: Troponin I < 0.02 Rhythm: EKG: Atrial fibrillation with a ventricular response rate of 131 bpm Assessment/Plan #1 Newly diagnosed A. fib with RVR: She has been started on intravenous Cardizem which will be continued for rate control. An echocardiogram should be performed to assess her left ventricular function.. Her [id number] is 4 and she is at moderate risk of stroke and she is a candidate for anticoagulation. My recommendation at this time would be to start her on a factor X inhibitor starting in a.m. #2 Congestive heart failure -acute systolic : This is based on symptoms of shortness of breath, leg edema and orthopnea as well as elevated BNP and chest x -ray findings. Plan: Diuresis with IV Lasix, 2D echocardiogram, further dissection to less than 1500 cc daily, continue Accupril. , She apparently has not tolerated beta- blockers in the past but we may be able to start her on carvedilol after she is off the Cardizem. I would need to exclude chemotherapy or radiation induced cardiomyopathy as an etiology of the above. #3 Hypertension: Blood pressure stable, continue Norvasc and Accupril. Will suggest aggressive management of the above. Thank you for allowing me to participate in the care of your patient. Please don't hesitate to call if any issues arise
[2017-12-30] MEDS: Lisinopril 20 MG Tablet PO (21:23)
[2017-12-30] MEDS: Doxazosin 1 MG Tablet 0.5 MG PO (21:23)
[2017-12-31] VITALS (26 sets, daily range): BP systolic 87–123; BP diastolic 53–90; PULSE 74–116; RESP 15–24; TEMP 36.4–36.9; O2SAT 93–97
[2017-12-31 03:14] LABS: Absolute Lymphocyte Count 0.81 X10^3/ul (0.83-4.51); Absolute Neutrophil Count 5.6 X10^3/uL (2.0-7.7); Basophil# 0.01 X10^3/uL; Basophil% 0.2 % (0-1); Hematocrit 44.5 % (37-47); Hemoglobin 14.4 g/dl (12.0-15.0); Lymphocyte # 0.81 X10^3/ul (4.0); Lymphocyte % 12.3 % (19-41); Mean Corp Hgb Conc 32.4 g/gl (32-36); Mean Corpuscular Volume 98.9 fL (81-99); Mean Platelet Vol. 9.3 fl (6.2-12.0); Monocyte# 0.15 X10^3/uL; Monocyte% 2.3 % (0-10); Platelet Count 235 K/mm3 (150-450); RBC Distribution Width CV 12.7 % (11.6-14.6); RBC Distribution Width SD 45.5 fl (35.1-43.9); White Blood Count 6.6 K/mm3 (4.4-11.0)
[2017-12-31 03:15] LABS: POSITIVE COUNT NO; POSITIVE DIFFERENTIAL NO; POSITIVE MORPHOLOGY NO
[2017-12-31 03:40] LABS: Anion Gap 8 (5-15); BUN 9 mg/dL (7-18); Calcium,Total 8.9 mg/dL (8.5-10.1); Chloride 102 mmol/L (98-107); EST Glomerular Filtration Rate 104 mL/min (>60); Est Glom Filt Rate - Afr Amer 126 mL/min (>60); Estimated Creatinine Clearance 44.56 ml/min; Glucose 138 mg/dL (74-106); Potassium 3.6 mmol/L (3.5-5.1); Sodium Level 138 mmol/L (136-145)
[2017-12-31] MEDS: Enoxaparin 80 MG/0.8 ML Syringe SC (05:34)
--- NOTE | 2017-12-31 05:55 | EKG12_ITS ---
Test Reason : AM EKG Blood Pressure : / mmHG Vent. Rate : 080 BPM Atrial Rate : 357 BPM P-R Int : 000 ms QRS Dur : 084 ms QT Int : 406 ms P-R-T Axes : 000 -15 017 degrees QTc Int : 468 ms Atrial fibrillation Anterior infarct , age undetermined Abnormal ECG When compared with ECG of 30-DEC-2017 09:55, MANUAL COMPARISON REQUIRED, DATA IS UNCONFIRMED Confirmed by ELOISE GILBERT, JAXON ([id number]), online content editor ONRMA SALEH ([id number]) on 01/03/2018 1:54:17 PM Referred By: APARNA Confirmed By:JAXON NAVAS MD
[2017-12-31] MEDS: Budesonide Respules 0.5 MG/2 ML AMPUL.NEB. INHALATION (06:49)
[2017-12-31] MEDS: Albuterol 2.5 MG/3 ML VIAL.NEB. INHALATION (06:49)
--- NOTE | 2017-12-31 07:30 | PCM.PN.CARD ---
Subjectve: The patient was seen and evaluated. She appears to be breathing much better today. Objective: Vital Signs Temp Pulse Resp BP Pulse Ox 97.6 F L 111 H 16 107/58 L 96 12/31/17 06:00 12/31/17 07:09 12/31/17 07:00 12/31/17 07:00 12/31/17 07:00 Oxygen Flow Rate (L/min) 2 Oxygen Delivery Method Nasal Cannula Weight: 177 lb 4.026 oz Body Mass Index (BMI) 30.9 Intake and Output for Last 24 Hours 12/29/17 12/30/17 12/31/17 23:59 23:59 23:59 Intake Total 429.2 / 429.2 120 / 120 Output Total 1825 / 1825 500 / 500 Balance -1395.8 / -1395.8 -380 / -380 General: Awake, Alert, Oriented x 3 HEENT: PERRL, EOMI, Sclera Non Icteric Neck: Supple, Good ROM, No Lymph Node Enlargement Lungs: Clear to auscultation Cardiovascular: Irregular Rhythm, Normal S1, Normal S2, No Murmurs, No Rubs, No Gallops Vascular: No Carotid Bruits, Normal Femoral Pulses, Normal Radial Pulses, Normal Dorsalis Pedal Pulse, Normal Posterior Tibial Pulses Abdomen: Bowel Sounds Present, Soft, Non Tender, No HSM, No Organomegaly Extremities: No Cyanosis, No Clubbing, No edema Neurological: No Focal Motor or Sensory Deficit 12/30/17 16:48: PT 14.0, INR 1.1 12/30/17 16:48: Magnesium 2.0 12/30/17 16:48: Troponin I < 0.02 12/30/17 20:50: Troponin I < 0.02 12/31/17 02:56: WBC 6.6, RBC 4.50, Hgb 14.4, Hct 44.5, MCV 98.9, MCH 32.0, MCHC 32.4, RDW 12.7, RDW Differential 45.5 H, Plt Count 235, MPV 9.3, Immature Gran % (Auto) 0.200, Neut % (Auto) 85.0 H, Lymph % (Auto) 12.3 L, [place] % (Auto) 2.3, Eos % (Auto) 0.0, Baso % (Auto) 0.2, Absolute Neuts (auto) 5.6, Total Counted Not Reportable 12/31/17 02:56: Sodium 138, Potassium 3.6, Chloride 102, Carbon Dioxide 28.0, Anion Gap 8, BUN 9, Creatinine 0.60, Est GFR (MDRD) Af Amer 126, Est GFR (MDRD) Non-Af 104, BUN/Creatinine Ratio 15.0, Glucose 138 H, Calcium 8.9 12/31/17 02:56: Troponin I < 0.02 Rhythm: Atrial fibrillation with a controlled ventricular response rate. Assessment/Plan #1 Newly diagnosed AMatt martin with RVR: She has been started on intravenous Cardizem which will be continued for rate control. An echocardiogram should be performed to assess her left ventricular function.. Her [id number] is 4 and she is at moderate risk of stroke and she is a candidate for anticoagulation. My recommendation at this time would be to start her on a factor X inhibitor starting in a.m. I would like to switch her to Coreg oral twice a day. #2 Congestive heart failure -acute systolic : This is based on symptoms of shortness of breath, leg edema and orthopnea as well as elevated BNP and chest x-ray findings. Plan: Diuresis with IV Lasix, 2D echocardiogram, further dissection to less than 1500 cc daily, continue Accupril. , She apparently has not tolerated beta-blockers in the past but we may be able to start her on carvedilol after she is off the intravenous Cardizem. I would need to exclude chemotherapy or radiation induced cardiomyopathy as an etiology of the above. #3 Hypertension: Blood pressure stable, continue Norvasc and Accupril. Will suggest aggressive management of the above. Thank you for allowing me to participate in the care of your patient. Please don't hesitate to call if any issues arise
--- NOTE | 2017-12-31 07:38 | PN.CARD_ITS ---
Subjectve: The patient was seen and evaluated. She appears to be breathing much better today. Objective: Vital Signs Temp Pulse Resp BP Pulse Ox 97.6 F L 111 H 16 107/58 L 96 12/31/17 06:00 12/31/17 07:09 12/31/17 07:00 12/31/17 07:00 12/31/17 07:00 Oxygen Flow Rate (L/min) 2 Oxygen Delivery Method Nasal Cannula Weight: 177 lb 4.026 oz Body Mass Index (BMI) 30.9 Intake and Output for Last 24 Hours 12/29/17 12/30/17 12/31/17 23:59 23:59 23:59 Intake Total 429.2 / 429.2 120 / 120 Output Total 1825 / 1825 500 / 500 Balance -1395.8 / -1395.8 -380 / -380 General: Awake, Alert, Oriented x 3 HEENT: PERRL, EOMI, Sclera Non Icteric Neck: Supple, Good ROM, No Lymph Node Enlargement Lungs: Clear to auscultation Cardiovascular: Irregular Rhythm, Normal S1, Normal S2, No Murmurs, No Rubs, No Gallops Vascular: No Carotid Bruits, Normal Femoral Pulses, Normal Radial Pulses, Normal Dorsalis Pedal Pulse, Normal Posterior Tibial Pulses Abdomen: Bowel Sounds Present, Soft, Non Tender, No HSM, No Organomegaly Extremities: No Cyanosis, No Clubbing, No edema Neurological: No Focal Motor or Sensory Deficit 12/30/17 16:48: PT 14.0, INR 1.1 12/30/17 16:48: Magnesium 2.0 12/30/17 16:48: Troponin I < 0.02 12/30/17 20:50: Troponin I < 0.02 12/31/17 02:56: WBC 6.6, RBC 4.50, Hgb 14.4, Hct 44.5, MCV 98.9, MCH 32.0, MCHC 32.4, RDW 12.7, RDW Differential 45.5 H, Plt Count 235, MPV 9.3, Immature Gran % (Auto) 0.200, Neut % (Auto) 85.0 H, Lymph % (Auto) 12.3 L, [place] % (Auto) 2.3, Eos % (Auto) 0.0, Baso % (Auto) 0.2, Absolute Neuts (auto) 5.6, Total Counted Not Reportable 12/31/17 02:56: Sodium 138, Potassium 3.6, Chloride 102, Carbon Dioxide 28.0, Anion Gap 8, BUN 9, Creatinine 0.60, Est GFR (MDRD) Af Amer 126, Est GFR (MDRD) Non-Af 104, BUN/Creatinine Ratio 15.0, Glucose 138 H, Calcium 8.9 12/31/17 02:56: Troponin I < 0.02 Rhythm: Atrial fibrillation with a controlled ventricular response rate. Assessment/Plan #1 Newly diagnosed AMatt martin with RVR: She has been started on intravenous Cardizem which will be continued for rate control. An echocardiogram should be performed to assess her left ventricular function.. Her [id number] is 4 and she is at moderate risk of stroke and she is a candidate for anticoagulation. My recommendation at this time would be to start her on a factor X inhibitor starting in a.m. I would like to switch her to Coreg oral twice a day. #2 Congestive heart failure -acute systolic : This is based on symptoms of shortness of breath, leg edema and orthopnea as well as elevated BNP and chest x -ray findings. Plan: Diuresis with IV Lasix, 2D echocardiogram, further dissection to less than 1500 cc daily, continue Accupril. , She apparently has not tolerated beta- blockers in the past but we may be able to start her on carvedilol after she is off the intravenous Cardizem. I would need to exclude chemotherapy or radiation induced cardiomyopathy as an etiology of the above. #3 Hypertension: Blood pressure stable, continue Norvasc and Accupril. Will suggest aggressive management of the above. Thank you for allowing me to participate in the care of your patient. Please don't hesitate to call if any issues arise
[2017-12-31] MEDS: Carvedilol 6.25 MG Tablet PO ×2 (08:10→20:51)
[2017-12-31] MEDS: Lisinopril 20 MG Tablet PO ×2 (10:47→20:51)
[2017-12-31] MEDS: Furosemide 40 MG Tablet PO ×2 (10:47→16:42)
--- NOTE | 2017-12-31 10:47 | CASEMGMT ---
SANAM THAPA ASSESSMENT COMPLETE. LACE Strata: 3 ADM Dx: Afib with RVR, CHF Transition Planning; Care Coordination: Patient reports she is independent, drives, and denies use of mobility equipment. The patient understands she will need follow-up with oncology, cardiology, and PCP. The patient does have prescription drug coverage through [employer], and was provided with a $0/Free Trial coupon card for Xarelto. Patient denies other home going needs. SANAM THAPA will remain available to assist should additional needs arise. Verbal Handoff provided to Mono Kelly RN CM, PCU TMatt Jones, BSN, RN-BC, CCM
[2017-12-31] MEDS: 0.9% NaCl Peripheral Flush Adult/Peds IV (10:51)
--- NOTE | 2017-12-31 12:38 | PCM.PROGNOTE ---
<Javi Hankins - Last Filed: 12/31/17 12:38> Patient Problems: Active and Suspected Problems Acute CHF (Acute) New onset A. fib with RVR (Acute) Subjective: Pt presented with new onset AF with RVR, she had been placed on cardizem drip which was discontinued this AM and changed to PO coreg. When examined she had just returned from ambulating to the bathroom and her heart rate josue to at least 128 and she felt SOB. I asked her about the possible mass on CT and she thinks it is the same mass that was evaluated by her oncologist prior and found to be scar tissue. Regardless, I have asked her to follow up with her oncologist at [facility] in [place]. No CP. No palp. No Fever or Chills. The patient has smoked since being a teenager, although has cut back to one or two cigarettes per day. - Physical Exam General: Alert, Oriented x3, Cooperative HEENT: Atraumatic, PERRLA, EOMI, Normocephalic Neck: Supple, No JVD, Negative Carotid Bruits Lungs: Clear to auscultation, Normal air movement Cardiovascular: No murmurs, Irregular Rate, Tachycardic Abdomen: Bowel Sounds Present, Soft, Non Tender Extremities: No edema, Capillary Refill Less than 3 Seconds Skin: No rashes, No breakdown Musculoskeletal: No Tenderness to Palpation of Joints or Extremities Neurological: Cranial nerves II-XII grossly intact Psych/Mental Status: Normal Affect, Appropriate, Alert and oriented to time, place, person, mood and affect Vital Signs Temp Pulse Resp BP Pulse Ox 97.8 F 102 H 16 100/81 H 94 12/31/17 09:00 12/31/17 10:58 12/31/17 09:00 12/31/17 09:00 12/31/17 09:00 Oxygen Flow Rate (L/min) 2 Oxygen Delivery Method Room Air Weight: 80.4 kg Body Mass Index (BMI) 30.9 Intake and Output for Last 24 Hours 12/29/17 12/30/17 12/31/17 23:59 23:59 23:59 Intake Total 429.2 / 429.2 505 / 505 Output Total 1825 / 1825 700 / 700 Balance -1395.8 / -1395.8 -195 / -195 Laboratory Tests Past 24 Hrs 03/10/0712/30/17 12/30/17 16:48 16:48 16:48 WBC RBC Hgb Hct MCV MCH MCHC RDW RDW Differential Plt Count MPV Immature Gran % (Auto) Neut % (Auto) Lymph % (Auto) [place] % (Auto) Eos % (Auto) Baso % (Auto) Absolute Neuts (auto) Absolute Lymphs (auto) Total Counted PT 14.0 INR 1.1 Sodium Potassium Chloride Carbon Dioxide Anion Gap BUN Creatinine Estim Creat Clear Calc Est GFR (MDRD) Af Amer Est GFR (MDRD) Non-Af BUN/Creatinine Ratio Glucose Calcium Magnesium 2.0 Troponin I < 0.02 TSH 1.09 12/30/17 12/31/17 12/31/17 20:50 02:56 02:56 WBC 6.6 RBC 4.50 Hgb 14.4 Hct 44.5 MCV 98.9 MCH 32.0 MCHC 32.4 RDW 12.7 RDW Differential 45.5 H Plt Count 235 MPV 9.3 Immature Gran % (Auto) 0.200 Neut % (Auto) 85.0 H Lymph % (Auto) 12.3 L [place] % (Auto) 2.3 Eos % (Auto) 0.0 Baso % (Auto) 0.2 Absolute Neuts (auto) 5.6 Absolute Lymphs (auto) 0.81 L Total Counted Not Reportable PT INR Sodium 138 Potassium 3.6 Chloride 102 Carbon Dioxide 28.0 Anion Gap 8 BUN 9 Creatinine 0.60 Estim Creat Clear Calc 44.56 Est GFR (MDRD) Af Amer 126 Est GFR (MDRD) Non-Af 104 BUN/Creatinine Ratio 15.0 Glucose 138 H Calcium 8.9 Magnesium Troponin I < 0.02 TSH 12/31/17 02:56 WBC RBC Hgb Hct MCV MCH MCHC RDW RDW Differential Plt Count MPV Immature Gran % (Auto) Neut % (Auto) Lymph % (Auto) [place] % (Auto) Eos % (Auto) Baso % (Auto) Absolute Neuts (auto) Absolute Lymphs (auto) Total Counted PT INR Sodium Potassium Chloride Carbon Dioxide Anion Gap BUN Creatinine Estim Creat Clear Calc Est GFR (MDRD) Af Amer Est GFR (MDRD) Non-Af BUN/Creatinine Ratio Glucose Calcium Magnesium Troponin I < 0.02 TSH Assessment/Plan Active and Suspected Problems Acute CHF (Acute) New onset A. fib with RVR (Acute) 1. AF with RVR - new onset. Cardiology following. EKG with A flutter. Transitioned to coreg from cardizem today, however still tachy and SOB with light exertion. She will be started on xarelto. CTA neg for PE. Troponin negative ?4. Magnesium normal. TSH normal. -Echo with 60% EF mild concentric LVH, right ventricular systolic pressure estimated to be 43 mmHg, L a moderately enlarged, right a mildly enlarged, mild pulmonary hypertension no indication of tamponade on. 2. Acute diastolic CHF - continue lasix, lisinopril fluid restriction. Coreg started. BNP 223.0. EF 60%. 3. Lung mass vs scar tissue - follow up with oncology. Pt had breast cancer on that same side, and has smoked since teenager. 4. Tobacco abuse - encouraged cessation especially in light of above. 5. History of breast cancer-status post chemo and radiation, status post total left mastectomy and right lumpectomy follows with [facility] oncology. 6. Hypertension-running low, AM meds held other than coreg and lasix. 7. COPD-pulse ox normal on room air, continue aerosols as ordered. Allergic to albuterol and ipratropium bromide. DVT prophylaxis: Xarelto Discharge planning: Rate is still unstable This patient was seen by Javi Hankins PA-C under the supervision of Doctor Rao. <Rohan Yeh - Last Filed: 12/31/17 13:19> - Physical Exam Vital Signs Temp Pulse Resp BP Pulse Ox 97.8 F 102 H 16 100/81 H 94 12/31/17 09:00 12/31/17 10:58 12/31/17 09:00 12/31/17 09:00 12/31/17 09:00 Oxygen Flow Rate (L/min) 2 Oxygen Delivery Method Room Air Weight: 80.4 kg Body Mass Index (BMI) 30.9 Intake and Output for Last 24 Hours 12/29/17 12/30/17 12/31/17 23:59 23:59 23:59 Intake Total 429.2 / 429.2 505 / 505 Output Total 1825 / 1825 700 / 700 Balance -1395.8 / -1395.8 -195 / -195 Laboratory Tests Past 24 Hrs 12/30/17 12/30/17 12/30/17 16:48 16:48 16:48 WBC RBC Hgb Hct MCV MCH MCHC RDW RDW Differential Plt Count MPV Immature Gran % (Auto) Neut % (Auto) Lymph % (Auto) [place] % (Auto) Eos % (Auto) Baso % (Auto) Absolute Neuts (auto) Absolute Lymphs (auto) Total Counted PT 14.0 INR 1.1 Sodium Potassium Chloride Carbon Dioxide Anion Gap BUN Creatinine Estim Creat Clear Calc Est GFR (MDRD) Af Amer Est GFR (MDRD) Non-Af BUN/Creatinine Ratio Glucose Calcium Magnesium 2.0 Troponin I < 0.02 TSH 1.09 12/30/17 12/31/17 12/31/17 20:50 02:56 02:56 WBC 6.6 RBC 4.50 Hgb 14.4 Hct 44.5 MCV 98.9 MCH 32.0 MCHC 32.4 RDW 12.7 RDW Differential 45.5 H Plt Count 235 MPV 9.3 Immature Gran % (Auto) 0.200 Neut % (Auto) 85.0 H Lymph % (Auto) 12.3 L [place] % (Auto) 2.3 Eos % (Auto) 0.0 Baso % (Auto) 0.2 Absolute Neuts (auto) 5.6 Absolute Lymphs (auto) 0.81 L Total Counted Not Reportable PT INR Sodium 138 Potassium 3.6 Chloride 102 Carbon Dioxide 28.0 Anion Gap 8 BUN 9 Creatinine 0.60 Estim Creat Clear Calc 44.56 Est GFR (MDRD) Af Amer 126 Est GFR (MDRD) Non-Af 104 BUN/Creatinine Ratio 15.0 Glucose 138 H Calcium 8.9 Magnesium Troponin I < 0.02 TSH 12/31/17 02:56 WBC RBC Hgb Hct MCV MCH MCHC RDW RDW Differential Plt Count MPV Immature Gran % (Auto) Neut % (Auto) Lymph % (Auto) [place] % (Auto) Eos % (Auto) Baso % (Auto) Absolute Neuts (auto) Absolute Lymphs (auto) Total Counted PT INR Sodium Potassium Chloride Carbon Dioxide Anion Gap BUN Creatinine Estim Creat Clear Calc Est GFR (MDRD) Af Amer Est GFR (MDRD) Non-Af BUN/Creatinine Ratio Glucose Calcium Magnesium Troponin I < 0.02 TSH Assessment/Plan This patient was seen in conjunction with Javi Cr PA-C. I have independently interviewed and examined the patient and reviewed pertinent historical, laboratory, and other data. Please refer to Javi lin for details of this patient's presentation, findings, and recommendations. I have reviewed Javi Hankins PA-C note and concur with documented findings. In brief, patient is a 72-year-old female who was admitted with progressive shortness of breath and assessment of new onset A. fib with RVR was made, patient was also found to be in acute diastolic congestive heart failure admitted to a monitored bed for further management Physical Examination: GENERAL: Not in distress HEENT: Clear conjunctiva, NECK; supple, normal thyroid, CHEST: Diminished to auscultation bilaterally, HEART: Irregular S1 S2, ABDOMEN: soft, normoactive bowel sounds, MASTER FISHER: Awake, oriented to self and place SKIN: No Rash Assessment: 1. A. fib with RVR 2. Acute diastolic congestive heart failure 3. spiculated masslike lesion in the left upper lobe measuring 2.9 x 1.9 cm ~ Pulm noted 4. History of breast CA status post chemoradiation with left mastectomy and right lumpectomy 5. Hypertension 6. COPD 7. Tobacco dependence 8. DVT prophylaxis; Xarelto Recommendations: 1. I have discussed the results of my overview and impressions with the patient 2. Options for management were reviewed Clinical Impression(s) from Imaging Studies Chest X-Ray 12/30/17 10:03 IMPRESSION: Right lung is clear. Left upper lobe airspace disease with possible nodule. Underlying neoplastic process cannot be excluded with post obstructive pneumonia. Recommend CT chest to further evaluate Electronically Signed: Vishal Ruiz DO at 10:45 EDT Tel , Service support , Chest CTA 12/30/17 11:09 IMPRESSION: 1. Negative for pulmonary emphysema or thoracic aortic dissection 2. As compared to the exam from 2009, there is a stable calcified mass involving the left anterior third rib and chest wall however, there has been development of a spiculated masslike lesion in the left upper lobe measuring 2.9 x 1.9 cm. Recurrent or metastatic disease cannot be excluded. However, this may be related to post radiation changes. PET/CT versus tissue sampling may be needed to further evaluate 3. Subtle right lower lobe infiltrate could represent infection 4. Patient is status post left mastectomy with left axillary lymph node dissection. Postradiation changes noted of the right breast with skin thickening. Electronically Signed: Vishal Ruiz DO at 14:33 EDT Tel , Service support , Code Visit Inpatient E&M: [id number] Subs Hosp L3
--- NOTE | 2017-12-31 12:50 | PN_ITS ---
<Javi Hankins - Last Filed: 12/31/17 12:38> Patient Problems: Active and Suspected Problems Acute CHF (Acute) New onset A. fib with RVR (Acute) Subjective: Pt presented with new onset AF with RVR, she had been placed on cardizem drip which was discontinued this AM and changed to PO coreg. When examined she had just returned from ambulating to the bathroom and her heart rate josue to at least 128 and she felt SOB. I asked her about the possible mass on CT and she thinks it is the same mass that was evaluated by her oncologist prior and found to be scar tissue. Regardless, I have asked her to follow up with her oncologist at [facility] in [place]. No CP. No palp. No Fever or Chills. The patient has smoked since being a teenager, although has cut back to one or two cigarettes per day. - Physical Exam General: Alert, Oriented x3, Cooperative HEENT: Atraumatic, PERRLA, EOMI, Normocephalic Neck: Supple, No JVD, Negative Carotid Bruits Lungs: Clear to auscultation, Normal air movement Cardiovascular: No murmurs, Irregular Rate, Tachycardic Abdomen: Bowel Sounds Present, Soft, Non Tender Extremities: No edema, Capillary Refill Less than 3 Seconds Skin: No rashes, No breakdown Musculoskeletal: No Tenderness to Palpation of Joints or Extremities Neurological: Cranial nerves II-XII grossly intact Psych/Mental Status: Normal Affect, Appropriate, Alert and oriented to time, place, person, mood and affect Vital Signs Temp Pulse Resp BP Pulse Ox 97.8 F 102 H 16 100/81 H 94 12/31/17 09:00 12/31/17 10:58 12/31/17 09:00 12/31/17 09:00 12/31/17 09:00 Oxygen Flow Rate (L/min) 2 Oxygen Delivery Method Room Air Weight: 80.4 kg Body Mass Index (BMI) 30.9 Intake and Output for Last 24 Hours 12/29/17 12/30/17 12/31/17 23:59 23:59 23:59 Intake Total 429.2 / 429.2 505 / 505 Output Total 1825 / 1825 700 / 700 Balance -1395.8 / -1395.8 -195 / -195 Laboratory Tests Past 24 Hrs 03/10/0712/30/17 12/30/17 16:48 16:48 16:48 WBC RBC Hgb Hct MCV MCH MCHC RDW RDW Differential Plt Count MPV Immature Gran % (Auto) Neut % (Auto) Lymph % (Auto) [place] % (Auto) Eos % (Auto) Baso % (Auto) Absolute Neuts (auto) Absolute Lymphs (auto) Total Counted PT 14.0 INR 1.1 Sodium Potassium Chloride Carbon Dioxide Anion Gap BUN Creatinine Estim Creat Clear Calc Est GFR (MDRD) Af Amer Est GFR (MDRD) Non-Af BUN/Creatinine Ratio Glucose Calcium Magnesium 2.0 Troponin I < 0.02 TSH 1.09 12/30/17 12/31/17 12/31/17 20:50 02:56 02:56 WBC 6.6 RBC 4.50 Hgb 14.4 Hct 44.5 MCV 98.9 MCH 32.0 MCHC 32.4 RDW 12.7 RDW Differential 45.5 H Plt Count 235 MPV 9.3 Immature Gran % (Auto) 0.200 Neut % (Auto) 85.0 H Lymph % (Auto) 12.3 L [place] % (Auto) 2.3 Eos % (Auto) 0.0 Baso % (Auto) 0.2 Absolute Neuts (auto) 5.6 Absolute Lymphs (auto) 0.81 L Total Counted Not Reportable PT INR Sodium 138 Potassium 3.6 Chloride 102 Carbon Dioxide 28.0 Anion Gap 8 BUN 9 Creatinine 0.60 Estim Creat Clear Calc 44.56 Est GFR (MDRD) Af Amer 126 Est GFR (MDRD) Non-Af 104 BUN/Creatinine Ratio 15.0 Glucose 138 H Calcium 8.9 Magnesium Troponin I < 0.02 TSH 12/31/17 02:56 WBC RBC Hgb Hct MCV MCH MCHC RDW RDW Differential Plt Count MPV Immature Gran % (Auto) Neut % (Auto) Lymph % (Auto) [place] % (Auto) Eos % (Auto) Baso % (Auto) Absolute Neuts (auto) Absolute Lymphs (auto) Total Counted PT INR Sodium Potassium Chloride Carbon Dioxide Anion Gap BUN Creatinine Estim Creat Clear Calc Est GFR (MDRD) Af Amer Est GFR (MDRD) Non-Af BUN/Creatinine Ratio Glucose Calcium Magnesium Troponin I < 0.02 TSH Assessment/Plan Active and Suspected Problems Acute CHF (Acute) New onset A. fib with RVR (Acute) 1. AF with RVR - new onset. Cardiology following. EKG with A flutter. Transitioned to coreg from cardizem today, however still tachy and SOB with light exertion. She will be started on xarelto. CTA neg for PE. Troponin negative ?4. Magnesium normal. TSH normal. -Echo with 60% EF mild concentric LVH, right ventricular systolic pressure estimated to be 43 mmHg, L a moderately enlarged, right a mildly enlarged, mild pulmonary hypertension no indication of tamponade on. 2. Acute diastolic CHF - continue lasix, lisinopril fluid restriction. Coreg started. BNP 223.0. EF 60%. 3. Lung mass vs scar tissue - follow up with oncology. Pt had breast cancer on that same side, and has smoked since teenager. 4. Tobacco abuse - encouraged cessation especially in light of above. 5. History of breast cancer-status post chemo and radiation, status post total left mastectomy and right lumpectomy follows with [facility] oncology. 6. Hypertension-running low, AM meds held other than coreg and lasix. 7. COPD-pulse ox normal on room air, continue aerosols as ordered. Allergic to albuterol and ipratropium bromide. DVT prophylaxis: Xarelto Discharge planning: Rate is still unstable This patient was seen by Javi Hankins PA-C under the supervision of Doctor Rao. <Rohan Yeh - Last Filed: 12/31/17 13:19> - Physical Exam Vital Signs Temp Pulse Resp BP Pulse Ox 97.8 F 102 H 16 100/81 H 94 12/31/17 09:00 12/31/17 10:58 12/31/17 09:00 12/31/17 09:00 12/31/17 09:00 Oxygen Flow Rate (L/min) 2 Oxygen Delivery Method Room Air Weight: 80.4 kg Body Mass Index (BMI) 30.9 Intake and Output for Last 24 Hours 12/29/17 12/30/17 12/31/17 23:59 23:59 23:59 Intake Total 429.2 / 429.2 505 / 505 Output Total 1825 / 1825 700 / 700 Balance -1395.8 / -1395.8 -195 / -195 Laboratory Tests Past 24 Hrs 12/30/17 12/30/17 12/30/17 16:48 16:48 16:48 WBC RBC Hgb Hct MCV MCH MCHC RDW RDW Differential Plt Count MPV Immature Gran % (Auto) Neut % (Auto) Lymph % (Auto) [place] % (Auto) Eos % (Auto) Baso % (Auto) Absolute Neuts (auto) Absolute Lymphs (auto) Total Counted PT 14.0 INR 1.1 Sodium Potassium Chloride Carbon Dioxide Anion Gap BUN Creatinine Estim Creat Clear Calc Est GFR (MDRD) Af Amer Est GFR (MDRD) Non-Af BUN/Creatinine Ratio Glucose Calcium Magnesium 2.0 Troponin I < 0.02 TSH 1.09 12/30/17 12/31/17 12/31/17 20:50 02:56 02:56 WBC 6.6 RBC 4.50 Hgb 14.4 Hct 44.5 MCV 98.9 MCH 32.0 MCHC 32.4 RDW 12.7 RDW Differential 45.5 H Plt Count 235 MPV 9.3 Immature Gran % (Auto) 0.200 Neut % (Auto) 85.0 H Lymph % (Auto) 12.3 L [place] % (Auto) 2.3 Eos % (Auto) 0.0 Baso % (Auto) 0.2 Absolute Neuts (auto) 5.6 Absolute Lymphs (auto) 0.81 L Total Counted Not Reportable PT INR Sodium 138 Potassium 3.6 Chloride 102 Carbon Dioxide 28.0 Anion Gap 8 BUN 9 Creatinine 0.60 Estim Creat Clear Calc 44.56 Est GFR (MDRD) Af Amer 126 Est GFR (MDRD) Non-Af 104 BUN/Creatinine Ratio 15.0 Glucose 138 H Calcium 8.9 Magnesium Troponin I < 0.02 TSH 12/31/17 02:56 WBC RBC Hgb Hct MCV MCH MCHC RDW RDW Differential Plt Count MPV Immature Gran % (Auto) Neut % (Auto) Lymph % (Auto) [place] % (Auto) Eos % (Auto) Baso % (Auto) Absolute Neuts (auto) Absolute Lymphs (auto) Total Counted PT INR Sodium Potassium Chloride Carbon Dioxide Anion Gap BUN Creatinine Estim Creat Clear Calc Est GFR (MDRD) Af Amer Est GFR (MDRD) Non-Af BUN/Creatinine Ratio Glucose Calcium Magnesium Troponin I < 0.02 TSH Assessment/Plan This patient was seen in conjunction with Javi Cr PA-C. I have independently interviewed and examined the patient and reviewed pertinent historical, laboratory, and other data. Please refer to Javi lin for details of this patient's presentation, findings, and recommendations. I have reviewed Javi Hankins PA-C note and concur with documented findings. In brief, patient is a 72-year-old female who was admitted with progressive shortness of breath and assessment of new onset A. fib with RVR was made, patient was also found to be in acute diastolic congestive heart failure admitted to a monitored bed for further management Physical Examination: GENERAL: Not in distress HEENT: Clear conjunctiva, NECK; supple, normal thyroid, CHEST: Diminished to auscultation bilaterally, HEART: Irregular S1 S2, ABDOMEN: soft, normoactive bowel sounds, NUTRITION INTERN: Awake, oriented to self and place SKIN: No Rash Assessment: 1. A. fib with RVR 2. Acute diastolic congestive heart failure 3. spiculated masslike lesion in the left upper lobe measuring 2.9 x 1.9 cm ~ Pulm noted 4. History of breast CA status post chemoradiation with left mastectomy and right lumpectomy 5. Hypertension 6. COPD 7. Tobacco dependence 8. DVT prophylaxis; Xarelto Recommendations: 1. I have discussed the results of my overview and impressions with the patient 2. Options for management were reviewed Clinical Impression(s) from Imaging Studies Chest X-Ray 12/30/17 10:03 IMPRESSION: Right lung is clear. Left upper lobe airspace disease with possible nodule. Underlying neoplastic process cannot be excluded with post obstructive pneumonia. Recommend CT chest to further evaluate Electronically Signed: Vishal Ruiz DO at 10:45 EDT Tel , Service support , Chest CTA 12/30/17 11:09 IMPRESSION: 1. Negative for pulmonary emphysema or thoracic aortic dissection 2. As compared to the exam from 2009, there is a stable calcified mass involving the left anterior third rib and chest wall however, there has been development of a spiculated masslike lesion in the left upper lobe measuring 2.9 x 1.9 cm. Recurrent or metastatic disease cannot be excluded. However, this may be related to post radiation changes. PET/CT versus tissue sampling may be needed to further evaluate 3. Subtle right lower lobe infiltrate could represent infection 4. Patient is status post left mastectomy with left axillary lymph node dissection. Postradiation changes noted of the right breast with skin thickening. Electronically Signed: Vishal Ruiz DO at 14:33 EDT Tel , Service support , Code Visit Inpatient E&M: [id number] Subs Hosp L3
[2017-12-31] MEDS: Rivaroxaban 20 MG Tablet PO (16:42)
[2018-01-01] VITALS (14 sets, daily range): BP systolic 116–137; BP diastolic 51–83; PULSE 79–121; RESP 16–18; TEMP 36–36.8; O2SAT 93–95
[2018-01-01 06:05] LABS: Anion Gap 6 (5-15); BUN 16 mg/dL (7-18); BUN/Creat Ratio 24.3 RATIO (10-20); Calcium,Total 9.2 mg/dL (8.5-10.1); Chloride 100 mmol/L (98-107); Creatinine, Serum 0.66 mg/dL (0.55-1.02); EST Glomerular Filtration Rate 94 mL/min (>60); Est Glom Filt Rate - Afr Amer 114 mL/min (>60); Estimated Creatinine Clearance 44.56 ml/min; Glucose 94 mg/dL (74-106); Potassium 3.9 mmol/L (3.5-5.1); Sodium Level 136 mmol/L (136-145)
--- NOTE | 2018-01-01 07:44 | PN.CARD_ITS ---
Subjectve: The patient was seen and evaluated and appears to be stable and doing well. Objective: Vital Signs Temp Pulse Resp BP Pulse Ox 97.6 F L 88 16 116/72 95 01/01/18 02:22 01/01/18 03:04 01/01/18 02:22 01/01/18 02:22 01/01/18 07:31 Oxygen Flow Rate (L/min) 2 Oxygen Delivery Method Room Air Weight: 177 lb 11.081 oz Body Mass Index (BMI) 30.9 Intake and Output for Last 24 Hours 12/30/17 12/31/17 01/01/18 23:59 23:59 23:59 Intake Total 429.2 / 429.2 985 / 985 Output Total 1825 / 1825 700 / 700 Balance -1395.8 / -1395.8 285 / 285 General: Awake, Alert, Oriented x 3 HEENT: PERRL, EOMI, Sclera Non Icteric Neck: Supple, Good ROM, No Lymph Node Enlargement Lungs: Clear to auscultation Cardiovascular: Irregular Rhythm, Normal S1, Normal S2, No Murmurs, No Rubs, No Gallops Vascular: No Carotid Bruits, Normal Femoral Pulses, Normal Radial Pulses, Normal Dorsalis Pedal Pulse, Normal Posterior Tibial Pulses Abdomen: Bowel Sounds Present, Soft, Non Tender, No HSM, No Organomegaly Extremities: No Cyanosis, No Clubbing, No edema Neurological: No Focal Motor or Sensory Deficit 01/01/18 05:25: Sodium 136, Potassium 3.9, Chloride 100, Carbon Dioxide 30.0, Anion Gap 6, BUN 16, Creatinine 0.66, Est GFR (MDRD) Af Amer 114, Est GFR (MDRD ) Non-Af 94, BUN/Creatinine Ratio 24.3 H, Glucose 94, Calcium 9.2 Rhythm: Atrial fibrillation with a controlled ventricular response rate Assessment/Plan #1 Newly diagnosed A. fib with RVR: Her ventricular response rate appears to be better controlled at this time. She has been started on anticoagulation as well as beta-donovan for rate control. She can be followed up as an outpatient. Her left ventricular ejection fraction was noted to be normal based on the recent echocardiogram. I have discussed the above with them. I have also suggested minimal alcohol use. #2 Congestive heart failure -acute diastolic: This is based on symptoms of shortness of breath, leg edema and orthopnea as well as elevated BNP and chest x -ray findings. The plan will be to control her rate from her atrial fibrillation, continue diuresis, and beta-donovan for rate control. #3 Hypertension: Blood pressure stable, Accupril. Will suggest aggressive management of the above. We will increase the beta-donovan for blood pressure and rate control. She can be followed up as an outpatient. Thank you for allowing me to participate in the care of your patient. Please don't hesitate to call if any issues arise
[2018-01-01] MEDS: Lisinopril 20 MG Tablet PO ×2 (09:24→21:01)
[2018-01-01] MEDS: Furosemide 40 MG Tablet PO (09:24)
[2018-01-01] MEDS: Carvedilol 12.5 MG Tablet PO (09:26)
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
--- NOTE | 2018-01-01 14:27 | PCM.PROGNOTE ---
<Javi Hankins - Last Filed: 01/01/18 14:27> Patient Problems: Active and Suspected Problems Acute CHF (Acute) New onset A. fib with RVR (Acute) Subjective: The patient continues to have racing heart at rest, for example I went to see her while she was eating breakfast and her rate was between 120 and 140. She denies palpitations. When she ambulated around the unit she became short of breath. No fevers or chills. No wheezing. No SOB at rest. No CP/tightness/pressure. No dizziness or LH. - Physical Exam General: Alert, Oriented x3, Cooperative HEENT: Atraumatic, PERRLA, EOMI, Normocephalic Neck: Supple, No JVD, Negative Carotid Bruits Lungs: Clear to auscultation, Normal air movement Cardiovascular: Irregular Rate, Tachycardic Abdomen: Bowel Sounds Present, Soft, Non Tender Extremities: No edema, Capillary Refill Less than 3 Seconds Skin: No rashes, No breakdown Musculoskeletal: No Tenderness to Palpation of Joints or Extremities Neurological: Cranial nerves II-XII grossly intact Psych/Mental Status: Normal Affect, Appropriate, Alert and oriented to time, place, person, mood and affect Vital Signs Temp Pulse Resp BP Pulse Ox 98.2 F 121 H 16 134/78 H 95 01/01/18 08:30 01/01/18 12:00 01/01/18 08:30 01/01/18 08:30 01/01/18 08:30 Oxygen Flow Rate (L/min) 2 Oxygen Delivery Method Room Air Weight: 80.6 kg Body Mass Index (BMI) 30.9 Intake and Output for Last 24 Hours 12/30/17 12/31/17 01/01/18 23:59 23:59 23:59 Intake Total 429.2 / 429.2 985 / 985 325 / 325 Output Total 1825 / 1825 700 / 700 Balance -1395.8 / -1395.8 285 / 285 325 / 325 Laboratory Tests Past 24 Hrs 01/01/18 05:25 Sodium 136 Potassium 3.9 Chloride 100 Carbon Dioxide 30.0 Anion Gap 6 BUN 16 Creatinine 0.66 Estim Creat Clear Calc 44.56 Est GFR (MDRD) Af Amer 114 Est GFR (MDRD) Non-Af 94 BUN/Creatinine Ratio 24.3 H Glucose 94 Calcium 9.2 Assessment/Plan Active and Suspected Problems Acute CHF (Acute) New onset A. fib with RVR (Acute) 1. AF with RVR - new onset. Cardiology following. EKG with A flutter. Still in RVR at rest and exertion and SOB with light exertion. She will be started on xarelto. CTA neg for PE. Troponin negative ?4. Magnesium normal. TSH normal. -Echo with 60% EF mild concentric LVH, right ventricular systolic pressure estimated to be 43 mmHg, L a moderately enlarged, right a mildly enlarged, mild pulmonary hypertension no indication of tamponade on. 2. Acute diastolic CHF - lasix now PO. lisinopril. fluid restriction. Coreg. BNP 223.0. EF 60%. 3. Lung mass vs scar tissue - follow up with oncology and pulmonology. Pt had breast cancer on that same side, and has smoked since teenager. 4. Tobacco abuse - encouraged cessation especially in light of above. 5. History of breast cancer-status post chemo and radiation, status post total left mastectomy and right lumpectomy follows with [facility] oncology. 6. Hypertension- coreg, petra, lasix. 7. COPD-pulse ox normal on room air, continue aerosols as ordered. Allergic to albuterol and ipratropium bromide. DVT prophylaxis: Xarelto, will need rx Discharge planning: Rate is still unstable This patient was seen by Javi Hankins PA-C under the supervision of Doctor Rao. <Rohan Yeh - Last Filed: 01/01/18 15:24> - Physical Exam Vital Signs Temp Pulse Resp BP Pulse Ox 97.4 F L 108 H 16 133/83 H 93 01/01/18 14:30 01/01/18 14:30 01/01/18 14:30 01/01/18 14:30 01/01/18 14:35 Oxygen Flow Rate (L/min) 2 Oxygen Delivery Method Room Air Weight: 80.6 kg Body Mass Index (BMI) 30.9 Intake and Output for Last 24 Hours 12/30/17 12/31/17 01/01/18 23:59 23:59 23:59 Intake Total 429.2 / 429.2 985 / 985 325 / 325 Output Total 1825 / 1825 700 / 700 Balance -1395.8 / -1395.8 285 / 285 325 / 325 Laboratory Tests Past 24 Hrs 01/01/18 05:25 Sodium 136 Potassium 3.9 Chloride 100 Carbon Dioxide 30.0 Anion Gap 6 BUN 16 Creatinine 0.66 Estim Creat Clear Calc 44.56 Est GFR (MDRD) Af Amer 114 Est GFR (MDRD) Non-Af 94 BUN/Creatinine Ratio 24.3 H Glucose 94 Calcium 9.2 Assessment/Plan This patient was seen in conjunction with Javi Hankins PA-C. I have independently interviewed and examined the patient and reviewed pertinent historical, laboratory, and other data. Please refer to Javi Hankins PA-C note for details of this patient's presentation, findings, and recommendations. I have reviewed Javi Hankins PA-C note and concur with documented findings. In brief, patient is a 72-year-old female who was admitted with progressive shortness of breath and assessment of new onset A. 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 A. fib with RVR 2. Acute diastolic congestive heart failure 3. Spiculated masslike lesion in the left upper lobe measuring 2.9 x 1.9 cm ~ Pulm consulted 4. History of breast CA status post chemoradiation with left mastectomy and right lumpectomy 5. Hypertension 6. COPD 7. Tobacco dependence 8. DVT prophylaxis; Xarelto Recommendations: 1. I have discussed the results of my overview and impressions with the patient 2. Options for management were reviewed Code Visit Inpatient E&M: 02233 Subs Hosp L2
--- NOTE | 2018-01-01 14:38 | PN_ITS ---
<Javi Hankins - Last Filed: 01/01/18 14:27> Patient Problems: Active and Suspected Problems Acute CHF (Acute) New onset A. fib with RVR (Acute) Subjective: The patient continues to have racing heart at rest, for example I went to see her while she was eating breakfast and her rate was between 120 and 140. She denies palpitations. When she ambulated around the unit she became short of breath. No fevers or chills. No wheezing. No SOB at rest. No CP/tightness/ pressure. No dizziness or LH. - Physical Exam General: Alert, Oriented x3, Cooperative HEENT: Atraumatic, PERRLA, EOMI, Normocephalic Neck: Supple, No JVD, Negative Carotid Bruits Lungs: Clear to auscultation, Normal air movement Cardiovascular: Irregular Rate, Tachycardic Abdomen: Bowel Sounds Present, Soft, Non Tender Extremities: No edema, Capillary Refill Less than 3 Seconds Skin: No rashes, No breakdown Musculoskeletal: No Tenderness to Palpation of Joints or Extremities Neurological: Cranial nerves II-XII grossly intact Psych/Mental Status: Normal Affect, Appropriate, Alert and oriented to time, place, person, mood and affect Vital Signs Temp Pulse Resp BP Pulse Ox 98.2 F 121 H 16 134/78 H 95 01/01/18 08:30 01/01/18 12:00 01/01/18 08:30 01/01/18 08:30 01/01/18 08:30 Oxygen Flow Rate (L/min) 2 Oxygen Delivery Method Room Air Weight: 80.6 kg Body Mass Index (BMI) 30.9 Intake and Output for Last 24 Hours 12/30/17 12/31/17 01/01/18 23:59 23:59 23:59 Intake Total 429.2 / 429.2 985 / 985 325 / 325 Output Total 1825 / 1825 700 / 700 Balance -1395.8 / -1395.8 285 / 285 325 / 325 Laboratory Tests Past 24 Hrs 01/01/18 05:25 Sodium 136 Potassium 3.9 Chloride 100 Carbon Dioxide 30.0 Anion Gap 6 BUN 16 Creatinine 0.66 Estim Creat Clear Calc 44.56 Est GFR (MDRD) Af Amer 114 Est GFR (MDRD) Non-Af 94 BUN/Creatinine Ratio 24.3 H Glucose 94 Calcium 9.2 Assessment/Plan Active and Suspected Problems Acute CHF (Acute) New onset A. fib with RVR (Acute) 1. AF with RVR - new onset. Cardiology following. EKG with A flutter. Still in RVR at rest and exertion and SOB with light exertion. She will be started on xarelto. CTA neg for PE. Troponin negative ?4. Magnesium normal. TSH normal. -Echo with 60% EF mild concentric LVH, right ventricular systolic pressure estimated to be 43 mmHg, L a moderately enlarged, right a mildly enlarged, mild pulmonary hypertension no indication of tamponade on. 2. Acute diastolic CHF - lasix now PO. lisinopril. fluid restriction. Coreg. BNP 223.0. EF 60%. 3. Lung mass vs scar tissue - follow up with oncology and pulmonology. Pt had breast cancer on that same side, and has smoked since teenager. 4. Tobacco abuse - encouraged cessation especially in light of above. 5. History of breast cancer-status post chemo and radiation, status post total left mastectomy and right lumpectomy follows with [facility] oncology. 6. Hypertension- coreg, petra, lasix. 7. COPD-pulse ox normal on room air, continue aerosols as ordered. Allergic to albuterol and ipratropium bromide. DVT prophylaxis: Xarelto, will need rx Discharge planning: Rate is still unstable This patient was seen by Javi Hankins PA-C under the supervision of Doctor Rao. <Rohan Yeh - Last Filed: 01/01/18 15:24> - Physical Exam Vital Signs Temp Pulse Resp BP Pulse Ox 97.4 F L 108 H 16 133/83 H 93 01/01/18 14:30 01/01/18 14:30 01/01/18 14:30 01/01/18 14:30 01/01/18 14:35 Oxygen Flow Rate (L/min) 2 Oxygen Delivery Method Room Air Weight: 80.6 kg Body Mass Index (BMI) 30.9 Intake and Output for Last 24 Hours 12/30/17 12/31/17 01/01/18 23:59 23:59 23:59 Intake Total 429.2 / 429.2 985 / 985 325 / 325 Output Total 1825 / 1825 700 / 700 Balance -1395.8 / -1395.8 285 / 285 325 / 325 Laboratory Tests Past 24 Hrs 01/01/18 05:25 Sodium 136 Potassium 3.9 Chloride 100 Carbon Dioxide 30.0 Anion Gap 6 BUN 16 Creatinine 0.66 Estim Creat Clear Calc 44.56 Est GFR (MDRD) Af Amer 114 Est GFR (MDRD) Non-Af 94 BUN/Creatinine Ratio 24.3 H Glucose 94 Calcium 9.2 Assessment/Plan This patient was seen in conjunction with Javi Hankins PA-C. I have independently interviewed and examined the patient and reviewed pertinent historical, laboratory, and other data. Please refer to Javi Hankins PA-C note for details of this patient's presentation, findings, and recommendations. I have reviewed aJvi Hankins PA-C note and concur with documented findings. In brief, patient is a 72-year-old female who was admitted with progressive shortness of breath and assessment of new onset A. fib with RVR was made, patient was also found to be in acute diastolic congestive heart failure admitted to a monitored bed for further management 01/01/2018: Plan to discharge patient placed on hold after patient became tachycardic with minimal activity Physical Examination: GENERAL: Not in distress HEENT: Clear conjunctiva, NECK; supple, normal thyroid, CHEST: Diminished to auscultation bilaterally, HEART: Irregular S1 S2, ABDOMEN: soft, normoactive bowel sounds, HVAC SALES ENGINEER: Awake, oriented to self and place SKIN: No Rash Assessment: 1. A. fib with RVR 2. Acute diastolic congestive heart failure 3. Spiculated masslike lesion in the left upper lobe measuring 2.9 x 1.9 cm ~ Pulm consulted 4. History of breast CA status post chemoradiation with left mastectomy and right lumpectomy 5. Hypertension 6. COPD 7. Tobacco dependence 8. DVT prophylaxis; Xarelto Recommendations: 1. I have discussed the results of my overview and impressions with the patient 2. Options for management were reviewed Code Visit Inpatient E&M: 15701 Subs Hosp L2
[2018-01-01] MEDS: Rivaroxaban 20 MG Tablet PO (17:13)
[2018-01-01] MEDS: Carvedilol 25 MG Tablet PO (21:01)
[2018-01-02] VITALS (7 sets, daily range): BP systolic 120–137; BP diastolic 68–81; PULSE 73–112; RESP 18; TEMP 36–36.9; O2SAT 90–94
[2018-01-02] MEDS: Lisinopril 20 MG Tablet PO (09:50)
[2018-01-02] MEDS: Furosemide 40 MG Tablet PO (09:50)
[2018-01-02] MEDS: Carvedilol 25 MG Tablet PO (09:51)
--- NOTE | 2018-01-02 10:37 | PCM.DC ---
- Discharge Diagnoses Current Active Problems: Current Active and Chronic Problems Suspected chronic obstructive pulmonary disease based on initial evaluation (Chronic) Acute CHF (Acute) New onset A. fib with RVR (Acute) History of breast cancer (Chronic) COPD (chronic obstructive pulmonary disease) (Chronic) Hypertension (Chronic) You will use the following diet at home:: Cardiac Discharge Activity: Return to Normal Activity Call your doctor if you observe: Shortness of breath, Dizziness, Fainting spells, Chest pain, Increased palpitations (irregular heartbeat) Allergies/Adverse Reactions: Allergies albuterol sulfate [From Combivent] Allergy (Verified 12/30/17 09:50) Swelling ipratropium bromide [From Combivent] Allergy (Verified 12/30/17 09:50) Swelling metoprolol Allergy (Verified 12/30/17 09:50) Laryngospasms Sulfa (Sulfonamide Antibiotics) Allergy (Verified 12/30/17 09:50) Rash beclomethasone [From Qvar] Adverse Reaction (Verified 12/30/17 09:50) COUGHING benzalkonium chloride [From Merthiolate (benzalkonium)] Adverse Reaction (Verified 12/30/17 09:50) Other codeine Adverse Reaction (Verified 12/30/17 16:34) doesn't remember doxycycline Adverse Reaction (Verified 12/30/17 09:50) Abd cramps/diarrhea fluticasone [From Advair Diskus] Adverse Reaction (Verified 12/30/17 16:36) headache formoterol fumarate [From Dulera] Adverse Reaction (Verified 12/30/17 09:50) Other hydrochlorothiazide Adverse Reaction (Verified 12/30/17 09:50) Other ibuprofen [From Advil] Adverse Reaction (Verified 12/30/17 09:50) Other iodine Adverse Reaction (Verified 12/30/17 09:50) Itching merbromin Adverse Reaction (Verified 12/30/17 09:50) Other mometasone furoate [From Dulera] Adverse Reaction (Verified 12/30/17 09:50) Other oseltamivir [From Tamiflu] Adverse Reaction (Verified 12/30/17 16:32) uterine pain prednisone Adverse Reaction (Verified 12/30/17 09:50) Abd cramps/diarrhea PLASTIC TAPE Allergy (Uncoded 12/30/17 09:50) Rash Medications to take at Discharge Fluticasone/Salmeterol [Advair 250/50 Mcg Diskus] 1 puff INHALATION BID 04/11/15 Quinapril HCl [Accupril] 20 mg PO BID 04/11/15 Acetaminophen [Tylenol] 325 mg PO Q4H PRN PRN 10/16/16 Albuterol Inhaler [Ventolin Hfa] 1 - 2 puff INHALATION Q4H PRN PRN 10/16/16 Multivitamins,Therapeutic [Multivitamin] 1 tablet PO DAILY 10/16/16 Vitamin B Complex 1 each PO DAILY 10/16/16 Vitamin E 400 unit PO DAILY 10/16/16 Carvedilol [Coreg (Beta Dionisio)] 25 mg PO BID #60 tab 01/02/18 Furosemide [Lasix] 40 mg PO DAILY #30 tab 01/02/18 Rivaroxaban [Xarelto] 20 mg PO DINNER #30 tab 01/02/18 The following prescriptions were given: Furosemide [Lasix] 40 mg PO DAILY #30 tab Rivaroxaban [Xarelto] 20 mg PO DINNER #30 tab Carvedilol [Coreg (Beta Dionisio)] 25 mg PO BID #60 tab Primary Care Physician: Juan Brandt MD [Primary Care Provider] - Please follow up with your Primary Care Physician in: 1 Week Please Follow Up With: Rusty Jovel MD When: 1-2 Weeks Please Follow Up With: Mark Campos DO - May see PHOTOTYPESETTING EQUIPMENT MONITOR When: 1-2 Weeks Proposed Discharge Date: 01/02/18
--- NOTE | 2018-01-02 10:41 | DCINST_ITS ---
- Discharge Diagnoses Current Active Problems: Current Active and Chronic Problems Suspected chronic obstructive pulmonary disease based on initial evaluation ( Chronic) Acute CHF (Acute) New onset A. fib with RVR (Acute) History of breast cancer (Chronic) COPD (chronic obstructive pulmonary disease) (Chronic) Hypertension (Chronic) You will use the following diet at home:: Cardiac Discharge Activity: Return to Normal Activity Call your doctor if you observe: Shortness of breath, Dizziness, Fainting spells , Chest pain, Increased palpitations (irregular heartbeat) Allergies/Adverse Reactions: Allergies albuterol sulfate [From Combivent] Allergy (Verified 12/30/17 09:50) Swelling ipratropium bromide [From Combivent] Allergy (Verified 12/30/17 09:50) Swelling metoprolol Allergy (Verified 12/30/17 09:50) Laryngospasms Sulfa (Sulfonamide Antibiotics) Allergy (Verified 12/30/17 09:50) Rash beclomethasone [From Qvar] Adverse Reaction (Verified 12/30/17 09:50) COUGHING benzalkonium chloride [From Merthiolate (benzalkonium)] Adverse Reaction ( Verified 12/30/17 09:50) Other codeine Adverse Reaction (Verified 12/30/17 16:34) doesn't remember doxycycline Adverse Reaction (Verified 12/30/17 09:50) Abd cramps/diarrhea fluticasone [From Advair Diskus] Adverse Reaction (Verified 12/30/17 16:36) headache formoterol fumarate [From Dulera] Adverse Reaction (Verified 12/30/17 09:50) Other hydrochlorothiazide Adverse Reaction (Verified 12/30/17 09:50) Other ibuprofen [From Advil] Adverse Reaction (Verified 12/30/17 09:50) Other iodine Adverse Reaction (Verified 12/30/17 09:50) Itching merbromin Adverse Reaction (Verified 12/30/17 09:50) Other mometasone furoate [From Dulera] Adverse Reaction (Verified 12/30/17 09:50) Other oseltamivir [From Tamiflu] Adverse Reaction (Verified 12/30/17 16:32) uterine pain prednisone Adverse Reaction (Verified 12/30/17 09:50) Abd cramps/diarrhea PLASTIC TAPE Allergy (Uncoded 12/30/17 09:50) Rash Medications to take at Discharge Fluticasone/Salmeterol [Advair 250/50 Mcg Diskus] 1 puff INHALATION BID Quinapril HCl [Accupril] 20 mg PO BID 04/11/15 Acetaminophen [Tylenol] 325 mg PO Q4H PRN PRN 10/16/16 Albuterol Inhaler [Ventolin Hfa] 1 - 2 puff INHALATION Q4H PRN PRN 10/16/16 Multivitamins,Therapeutic [Multivitamin] 1 tablet PO DAILY 10/16/16 Vitamin B Complex 1 each PO DAILY 10/16/16 Vitamin E 400 unit PO DAILY 10/16/16 Carvedilol [Coreg (Beta Dionisio)] 25 mg PO BID #60 tab 01/02/18 Furosemide [Lasix] 40 mg PO DAILY #30 tab 01/02/18 Rivaroxaban [Xarelto] 20 mg PO DINNER #30 tab 01/02/18 The following prescriptions were given: Furosemide [Lasix] 40 mg PO DAILY #30 tab Rivaroxaban [Xarelto] 20 mg PO DINNER #30 tab Carvedilol [Coreg (Beta Dionisio)] 25 mg PO BID #60 tab Primary Care Physician: Juan Brandt MD [Primary Care Provider] - Please follow up with your Primary Care Physician in: 1 Week Please Follow Up With: Rusty Jovel MD When: 1-2 Weeks Please Follow Up With: Mark Campos DO - May see CREATIVE ENGAGEMENT DIRECTOR When: 1-2 Weeks Proposed Discharge Date: 01/02/18
--- NOTE | 2018-01-02 10:49 | PCM.DC.SUM ---
<Teodora Parsons - Last Filed: 01/02/18 11:09> Discharge Date and Diagnosis Date of Admission: 12/30/17 Date of Discharge: 01/02/18 - Primary Discharge Diagnosis Active and Suspected Problems 1. Acute diastolic CHF 2. New onset A. fib with RVR 3. Suspected COPD 4. Left-sided lung mass - Secondary Discharge Diagnosis Chronic Problems Suspected chronic obstructive pulmonary disease based on initial evaluation (Chronic) History of breast cancer (Chronic) Hypertension (Chronic) Tobacco abuse Hospital Course and Treatment Imaging Results: Diagnostic Data Chest X-Ray 12/30/17 10:03 IMPRESSION: Right lung is clear. Left upper lobe airspace disease with possible nodule. Underlying neoplastic process cannot be excluded with post obstructive pneumonia. Recommend CT chest to further evaluate Electronically Signed: Vishal Ruiz DO at 10:45 EDT Tel , Service support , Chest CTA 12/30/17 11:09 IMPRESSION: 1. Negative for pulmonary emphysema or thoracic aortic dissection 2. As compared to the exam from 2009, there is a stable calcified mass involving the left anterior third rib and chest wall however, there has been development of a spiculated masslike lesion in the left upper lobe measuring 2.9 x 1.9 cm. Recurrent or metastatic disease cannot be excluded. However, this may be related to post radiation changes. PET/CT versus tissue sampling may be needed to further evaluate 3. Subtle right lower lobe infiltrate could represent infection 4. Patient is status post left mastectomy with left axillary lymph node dissection. Postradiation changes noted of the right breast with skin thickening. Electronically Signed: Vishal Ruiz DO at 14:33 EDT Tel , Service support , Dr. Campos-Pulmonary Dr. Jovel- Cardiology Operations: None Procedures: 2-D Echocardiogram Summary of Care Provided: The patient is a 72 year old F admitted 12/30/2017 due to shortness of breath. She has a past medical history of breast cancer status post total l left mastectomy, right lumpectomy, chemotherapy/radiation, hypertension, suspected COPD. Patient was found to have new onset atrial fibrillation with RVR and acute diastolic CHF. Cardiology consulted. Echocardiogram showed an estimated ejection fraction of 60%, mild mitral valve insufficiency, trivial tricuspid valve insufficiency, RVSP estimated to be 43 mmHg, mild pulmonary hypertension. Troponin negative ?4. Patient was started on anticoagulation with Xarelto. She will continue carvedilol 25 mg twice daily, Lasix 40 mg daily, quinapril 20 mg twice daily. Heart rate currently well controlled, she remains in atrial fibrillation. She will follow-up as outpatient with Dr. Jovel in 1-2 weeks. Pulmonary medicine was consulted due to abnormal chest imaging. CTA showed soft tissue mass versus scarring in the left upper lobe. Patient does have a history of breast cancer. She previously followed with [facility] oncology. Patient has been on Advair and albuterol at home but denies previous diagnosis of COPD or asthma. She has a long time tobacco user. COPD suspected. Patient will need further follow-up with pulmonary medicine as outpatient in 1-2 weeks for pulmonary function testing for COPD and further monitoring of left upper lobe mass. She can continue albuterol inhaler as needed as well as Advair twice daily. Encourage smoking cessation. Recommend additional follow-up with oncology in 1-[address] findings as noted above. General: Alert, Oriented x3, Cooperative HEENT: Atraumatic, PERRLA, EOMI, Normocephalic Neck: Supple, No JVD, Negative Carotid Bruits Lungs: Clear to auscultation, diminished Cardiovascular: Atrial fibrillation, rate controlled Abdomen: Bowel Sounds Present, Soft, Non Tender Extremities: No edema, Capillary Refill Less than 3 Seconds Skin: No rashes, No breakdown Musculoskeletal: No Tenderness to Palpation of Joints or Extremities Neurological: Cranial nerves II-XII grossly intact Psych/Mental Status: Normal Affect, Appropriate Patient seen and examined prior to discharge. Physical assessment as above. Heart rate has remained stable. Patient denies shortness of breath, dizziness, chest pain. She is stable for discharge home with recommendations as noted above. This patient was seen by RAFAEL Le under the supervision of Dr. Yeh. Discharge Diet: Low fat/ Low Cholesterol Discharge Activity: Return to Normal Activity Call your doctor if you observe: Shortness of breath, Dizziness, Fainting spells, Chest pain, Increased palpitations (irregular heartbeat) Home Medications: Medications to take at Discharge Fluticasone/Salmeterol [Advair 250/50 Mcg Diskus] 1 puff INHALATION BID 04/11/15 Quinapril HCl [Accupril] 20 mg PO BID 04/11/15 Acetaminophen [Tylenol] 325 mg PO Q4H PRN PRN 10/16/16 Albuterol Inhaler [Ventolin Hfa] 1 - 2 puff INHALATION Q4H PRN PRN 10/16/16 Multivitamins,Therapeutic [Multivitamin] 1 tablet PO DAILY 10/16/16 Vitamin B Complex 1 each PO DAILY 10/16/16 Vitamin E 400 unit PO DAILY 10/16/16 Carvedilol [Coreg (Beta Dionisio)] 25 mg PO BID #60 tab 01/02/18 Furosemide [Lasix] 40 mg PO DAILY #30 tab 01/02/18 Rivaroxaban [Xarelto] 20 mg PO DINNER #30 tab 01/02/18 Following Prescrptions Were Given to Patient: Furosemide [Lasix] 40 mg PO DAILY #30 tab Rivaroxaban [Xarelto] 20 mg PO DINNER #30 tab Carvedilol [Coreg (Beta Dionisio)] 25 mg PO BID #60 tab Primary Care Physician: Juan Brandt MD [Primary Care Provider] - Please follow up with your Primary Care Physician in: 1 Week Please Follow Up With: Rusty Jovel MD When: 1-2 Weeks Please Follow Up With: Mark Campos DO - May see LIBRARY SCIENCE PROFESSOR When: 1-2 Weeks Please Follow Up With: [facility] When: 1-2 Weeks Disposition: Home Minutes spent on discharge:: 35 Patient Condition:: Stable Meaningful Use Info Meaningful Use Diagnoses (Choose all that apply): CHF - CHF EVELIN/ARB ordered at discharge?: Yes Documented LVEF (%): 60 <Rohan Yeh - Last Filed: 01/02/18 12:24> Discharge Date and Diagnosis - Secondary Discharge Diagnosis Chronic Problems Suspected chronic obstructive pulmonary disease based on initial evaluation (Chronic) History of breast cancer (Chronic) COPD (chronic obstructive pulmonary disease) (Chronic) Hypertension (Chronic) Hospital Course and Treatment Summary of Care Provided: In brief, patient is a 72-year-old female who was admitted with progressive shortness of breath and assessment of new onset A. fib with RVR was made, patient was also found to be in acute diastolic congestive heart failure admitted to a monitored bed for further management Assessment: 1. A. fib with RVR 2. Acute diastolic congestive heart failure 3. Spiculated masslike lesion in the left upper lobe measuring 2.9 x 1.9 cm ~ Pulm consulted 4. History of breast CA status post chemoradiation with left mastectomy and right lumpectomy 5. Hypertension 6. COPD 7. Tobacco dependence 8. DVT prophylaxis; [facility] course as elicited above by RAFAEL Le Time spent on Discharge 35 min Code Visit Inpatient E&M: 48908 Disch Hosp
--- NOTE | 2018-01-02 11:07 | DS.PCM_ITS ---
<Teodora Parsons - Last Filed: 01/02/18 11:09> Discharge Date and Diagnosis Date of Admission: 12/30/17 Date of Discharge: 01/02/18 - Primary Discharge Diagnosis Active and Suspected Problems 1. Acute diastolic CHF 2. New onset A. fib with RVR 3. Suspected COPD 4. Left-sided lung mass - Secondary Discharge Diagnosis Chronic Problems Suspected chronic obstructive pulmonary disease based on initial evaluation ( Chronic) History of breast cancer (Chronic) Hypertension (Chronic) Tobacco abuse Hospital Course and Treatment Imaging Results: Diagnostic Data Chest X-Ray 12/30/17 10:03 IMPRESSION: Right lung is clear. Left upper lobe airspace disease with possible nodule. Underlying neoplastic process cannot be excluded with post obstructive pneumonia. Recommend CT chest to further evaluate Electronically Signed: Vishal Ruiz DO at 10:45 EDT Tel , Service support , Chest CTA 12/30/17 11:09 IMPRESSION: 1. Negative for pulmonary emphysema or thoracic aortic dissection 2. As compared to the exam from 2009, there is a stable calcified mass involving the left anterior third rib and chest wall however, there has been development of a spiculated masslike lesion in the left upper lobe measuring 2.9 x 1.9 cm. Recurrent or metastatic disease cannot be excluded. However, this may be related to post radiation changes. PET/CT versus tissue sampling may be needed to further evaluate 3. Subtle right lower lobe infiltrate could represent infection 4. Patient is status post left mastectomy with left axillary lymph node dissection. Postradiation changes noted of the right breast with skin thickening. Electronically Signed: Vishal Ruiz DO at 14:33 EDT Tel , Service support , Dr. Campos-Pulmonary Dr. Jovel- Cardiology Operations: None Procedures: 2-D Echocardiogram Summary of Care Provided: The patient is a 72 year old F admitted 12/30/2017 due to shortness of breath. She has a past medical history of breast cancer status post total l left mastectomy, right lumpectomy, chemotherapy/radiation, hypertension, suspected COPD. Patient was found to have new onset atrial fibrillation with RVR and acute diastolic CHF. Cardiology consulted. Echocardiogram showed an estimated ejection fraction of 60%, mild mitral valve insufficiency, trivial tricuspid valve insufficiency, RVSP estimated to be 43 mmHg, mild pulmonary hypertension. Troponin negative ?4. Patient was started on anticoagulation with Xarelto. She will continue carvedilol 25 mg twice daily, Lasix 40 mg daily, quinapril 20 mg twice daily. Heart rate currently well controlled, she remains in atrial fibrillation. She will follow-up as outpatient with Dr. Jovel in 1-2 weeks. Pulmonary medicine was consulted due to abnormal chest imaging. CTA showed soft tissue mass versus scarring in the left upper lobe. Patient does have a history of breast cancer. She previously followed with [facility] oncology. Patient has been on Advair and albuterol at home but denies previous diagnosis of COPD or asthma. She has a long time tobacco user. COPD suspected. Patient will need further follow-up with pulmonary medicine as outpatient in 1-2 weeks for pulmonary function testing for COPD and further monitoring of left upper lobe mass. She can continue albuterol inhaler as needed as well as Advair twice daily. Encourage smoking cessation. Recommend additional follow-up with oncology in 1-[address] findings as noted above. General: Alert, Oriented x3, Cooperative HEENT: Atraumatic, PERRLA, EOMI, Normocephalic Neck: Supple, No JVD, Negative Carotid Bruits Lungs: Clear to auscultation, diminished Cardiovascular: Atrial fibrillation, rate controlled Abdomen: Bowel Sounds Present, Soft, Non Tender Extremities: No edema, Capillary Refill Less than 3 Seconds Skin: No rashes, No breakdown Musculoskeletal: No Tenderness to Palpation of Joints or Extremities Neurological: Cranial nerves II-XII grossly intact Psych/Mental Status: Normal Affect, Appropriate Patient seen and examined prior to discharge. Physical assessment as above. Heart rate has remained stable. Patient denies shortness of breath, dizziness, chest pain. She is stable for discharge home with recommendations as noted above. This patient was seen by RAFAEL Le under the supervision of Dr. Yeh. Discharge Diet: Low fat/ Low Cholesterol Discharge Activity: Return to Normal Activity Call your doctor if you observe: Shortness of breath, Dizziness, Fainting spells , Chest pain, Increased palpitations (irregular heartbeat) Home Medications: Medications to take at Discharge Fluticasone/Salmeterol [Advair 250/50 Mcg Diskus] 1 puff INHALATION BID Quinapril HCl [Accupril] 20 mg PO BID 04/11/15 Acetaminophen [Tylenol] 325 mg PO Q4H PRN PRN 10/16/16 Albuterol Inhaler [Ventolin Hfa] 1 - 2 puff INHALATION Q4H PRN PRN 10/16/16 Multivitamins,Therapeutic [Multivitamin] 1 tablet PO DAILY 10/16/16 Vitamin B Complex 1 each PO DAILY 10/16/16 Vitamin E 400 unit PO DAILY 10/16/16 Carvedilol [Coreg (Beta Dionisio)] 25 mg PO BID #60 tab 01/02/18 Furosemide [Lasix] 40 mg PO DAILY #30 tab 01/02/18 Rivaroxaban [Xarelto] 20 mg PO DINNER #30 tab 01/02/18 Following Prescrptions Were Given to Patient: Furosemide [Lasix] 40 mg PO DAILY #30 tab Rivaroxaban [Xarelto] 20 mg PO DINNER #30 tab Carvedilol [Coreg (Beta Dionisio)] 25 mg PO BID #60 tab Primary Care Physician: Juan Brandt MD [Primary Care Provider] - Please follow up with your Primary Care Physician in: 1 Week Please Follow Up With: Rusty Jovel MD When: 1-2 Weeks Please Follow Up With: Mark Campos DO - May see [employer] When: 1-2 Weeks Please Follow Up With: [facility] When: 1-2 Weeks Disposition: Home Minutes spent on discharge:: 35 Patient Condition:: Stable Meaningful Use Info Meaningful Use Diagnoses (Choose all that apply): CHF - CHF EVELIN/ARB ordered at discharge?: Yes Documented LVEF (%): 60 <Rohan Yeh - Last Filed: 01/02/18 12:24> Discharge Date and Diagnosis - Secondary Discharge Diagnosis Chronic Problems Suspected chronic obstructive pulmonary disease based on initial evaluation ( Chronic) History of breast cancer (Chronic) COPD (chronic obstructive pulmonary disease) (Chronic) Hypertension (Chronic) Hospital Course and Treatment Summary of Care Provided: In brief, patient is a 72-year-old female who was admitted with progressive shortness of breath and assessment of new onset A. fib with RVR was made, patient was also found to be in acute diastolic congestive heart failure admitted to a monitored bed for further management Assessment: 1. A. fib with RVR 2. Acute diastolic congestive heart failure 3. Spiculated masslike lesion in the left upper lobe measuring 2.9 x 1.9 cm ~ Pulm consulted 4. History of breast CA status post chemoradiation with left mastectomy and right lumpectomy 5. Hypertension 6. COPD 7. Tobacco dependence 8. DVT prophylaxis; [facility] Hospital course as elicited above by RAFAEL eL Time spent on Discharge 35 min Code Visit Inpatient E&M: 42339 Disch Hosp
--- NOTE | 2018-01-02 11:22 | CASEMGMT ---
Pt to be sent home on Xarelto. Script e-scribed to [facility] retail pharmacy. Call to Mark at [facility] pharmacy and he states that pt's co-pay will be $43.00. Pt had already been given Xarelto 30 day free coupon but her left it at home. This RN ELIER provided pt with a new coupon at this time. Pt updated on all and voices understanding at this time. Pt voices no further concerns/needs at this time. Pt aware that meds were e-scribed to [facility] retail pharmacy and that they can knot picker cloth there on their way out, voice understanding. SStaten SANAM THAPA
== END 2018-01-02 11:40 | disposition home or self-care (01) | DRG 308 ==
LOC: ED 11:21 → PCU 15:16
PROVIDERS: Physician Assistant; Admitting Provider Hospitalist; Emergency Provider Emergency Medicine; Family Provider Family Medicine; PCP Family Medicine; Visit Provider Internal Medicine
DX: I48.91 Unspecified atrial fibrillation (principal); I50.31 Acute diastolic (congestive) heart failure; I27.20 Pulmonary hypertension, unspecified; I08.1 Rheumatic disorders of both mitral and tricuspid valves; J44.9 Chronic obstructive pulmonary disease, unspecified; I11.0 Hypertensive heart disease with heart failure; Z85.3 Personal history of malignant neoplasm of breast; Z90.12 Acquired absence of left breast and nipple; Z92.21 Personal history of antineoplastic chemotherapy; Z92.3 Personal history of irradiation; R91.8 Other nonspecific abnormal finding of lung field; Z72.0 Tobacco use; Z79.899 Other long term (current) drug therapy
CPT/HCPCS: 36415; 71045; 71275; 80048; 83735; 83880; 84443; 84484; 85025; 85610; 93005; 93306; 93971; 94640; 97116; 97162; 97166; 97530; 97802; 99285; 99406; Q9967; A4216; J1940

== ENCOUNTER → 2018-01-27 08:40 | Outpatient (CLI) | payer MEDICARE, OTHER, SELFPAY ==
[2018-01-27 09:07] VITALS: PULSE 105; PULSE 110; PULSE 88; PULSE 91; PULSE 93; PULSE 94; PULSE 98; PULSE 99; O2SAT 90; O2SAT 91; O2SAT 92; O2SAT 93
--- NOTE | 2018-01-27 11:50 | WT_ITS ---
PSN 6 Minute Walk Test - 6 Minute Walk Test 6 Minute Walk Test: 6 Minute Walk Test PSN:6-Minute Walk Test Start: 01/27/18 09: 07 Freq: Status: Active Protocol: RESP.6MINW Document 01/27/18 09:07 ROYER (Rec: 01/27/18 09:11 ROYER [id number]) 6 Minute Walk Test Date Performed 01/27/18 Time Performed 08:49 Height 5 ft 4 in Weight: 175 lb 12.943 oz Weight in Pounds 175.[address]: Jayleen Burr Assistive device used: None Pre-test Oxygen Delivery Method Room Air Pulse Ox (%) 93 Pulse Rate (60-100 beats/min) 94 1st minute Oxygen Delivery Method Room Air Pulse Ox (%) 93 Pulse Rate (60-100 beats/min) 93 2nd minute Oxygen Delivery Method Room Air Pulse Ox (%) 92 Pulse Rate (60-100 beats/min) 91 3rd minute Oxygen Delivery Method Room Air Pulse Ox (%) 90 Pulse Rate (60-100 beats/min) 99 Number of Rests Taken 1 4th minute Oxygen Delivery Method Room Air Pulse Ox (%) 90 Pulse Rate (60-100 beats/min) 105 H 5th minute Oxygen Delivery Method Room Air Pulse Ox (%) 90 Pulse Rate (60-100 beats/min) 98 6th minute Oxygen Delivery Method Room Air Pulse Ox (%) 91 Pulse Rate (60-100 beats/min) 110 H Dyspnea Sravanthi Scale (0-10) 2 Exertion Sravanthi Scale (6-20) 13 Post-test Oxygen Delivery Method Room Air Pulse Ox (%) 91 Pulse Rate (60-100 beats/min) 88 Full Laps Walked 8 Partial Lap, Number of Tiles Walked 15 Total Distance Walked (ft) 487 - Interpretation Interpretation: The patient ambulated 487 feet over the course of 6 minutes beginning on room air without assistive devices or breaks. Pretesting oxygen saturation was noted to be 93% on room air. With ambulation, the bi oxygen saturation was 90%. Although there was evidence of impaired walk distance, there was no significant exertional oxygen desaturation. - Recommendations Recommendations: There is no indication for the use of supplemental oxygen at this time.
== END ==
PROVIDERS: Family Provider Family Medicine; PCP Family Medicine; Visit Provider Nurse Practitioner Acute Care
DX: J44.9 Chronic obstructive pulmonary disease, unspecified (principal)
CPT/HCPCS: 94618

== ENCOUNTER → 2018-01-30 10:40 | Outpatient (CLI) | payer MEDICARE, OTHER, SELFPAY ==
--- NOTE | 2018-01-31 10:55 | PFT ---
INTRODUCTION: The patient is a 72-year-old female currently under the care of myself the presents for pulmonary function testing secondary to a diagnosis of COPD. Respiratory therapy reports good patient effort and reports no other concerns. Bronchodilators were used during testing. INTERPRETATION: Forced expiration spirometry demonstrates the presence of a very severe large airways obstructive ventilatory defect. There was no significant bronchodilator response noted. Spirograms and respiratory flow volume loop are consistent with airways obstruction. Body plethysmography was performed and reveals an elevated RV to 165% of predicted, indicative of underlying air trapping. Diffusing capacity by single breath CO is moderately reduced at 48% of predicted. IMPRESSION: These pulmonary function studies demonstrate the presence of an irreversible very severe large airways obstructive ventilatory defect with associated air trapping and reduction in diffusing capacity.
== END ==
PROVIDERS: Family Provider Family Medicine; PCP Family Medicine; Visit Provider Nurse Practitioner Acute Care
DX: J44.9 Chronic obstructive pulmonary disease, unspecified (principal)
CPT/HCPCS: 94060; 94726; 94729

== ENCOUNTER → 2018-02-03 10:02 | Outpatient (CLI) | payer MEDICARE, OTHER, SELFPAY ==
--- NOTE | 2018-02-03 10:00 | PET_ITS ---
EXAMINATION: FDG PET CT INDICATIONS: A 72-year-old female with reported history of carcinoma of the breast presenting for restaging examination and evaluation of pulmonary nodularity. COMPARISON EXAMINATION: CT of the chest report dated 12/30/17. INDEX LESION SIZE SUV INTERPRETATION Left mid anterior hemithorax, left upper lobe 21.4 mm x 26.5 mm (frame 193) 6.8 Fulfills quantitative criteria for viable neoplasm, histopathologic analysis is recommended NON-INDEX LESION SIZE SUV INTERPRETATION Right breast heterogeneous 1.3 Quantitative criteria for viable neoplasm are not fulfilled Left anterior chest wall circumferential 1.1 Quantitative criteria for viable neoplasm are not fulfilled TECHNIQUE: Following the intravenous administration of 13.16 mCi of F-18 deoxyglucose via the left hand, multiplanar image acquisitions of the neck, chest, abdomen and pelvis to level of mid thigh, obtained at one hour post radiopharmaceutical administration contemporaneously interpreted with the current CT of the neck, chest, abdomen and pelvis to level of mid thigh, dated 02/03/[address] of the chest report dated 12/30/17 reveal: SERUM GLUCOSE LEVEL: 111 mg/dl. HEIGHT: 64 inches. WEIGHT: 175 lbs. FINDINGS: 1. Focal increased glucose metabolism is identified in the left mid anterior hemithorax pulmonary parenchyma, left upper lobe generating a calculated maximum standard uptake value of 6.8. The maximal axial diameter of the corresponding parenchymal density on review of CT of the thorax dated 02/03/18 is 21.4 mm (transverse) x 26.5 mm (AP). 2. Heterogeneous enhanced glucose metabolism is defined in the right breast with a calculated standard uptake value of 1.3. Quantitative criteria for viable neoplastic transformation are not fulfilled. 3. A circumferential increase in glucose concentration is demonstrated in the left upper anterior chest wall corresponding to a partially calcified soft tissue mass generating a calculated maximum standard uptake value of 1.1. 4. Normal physiologic distribution of the radiopharmaceutical is apparent in the hepatic (3.7) and splenic parenchyma, both renal units, bladder and visualized intestinal tract. There is uniform distribution of the radiopharmaceutical concentration compared on the cerebellar hemispheres and cerebral cortex. Diffuse intestinal tract activity is noted throughout all four quadrants of the abdominal-pelvic retroperitoneum, mesentery consistent with normal physiologic distribution of the radiopharmaceutical. Pertinent CT findings are as follows. CHEST: Surgical clips are identified in the bilateral axillary regions. The left breast is surgically absent. Atherosclerotic calcification is defined in the thoracic aorta without evidence of dilatation, aneurysm formation. Coronary arterial calcification is observed. A small left hemithorax pleural effusion demonstrates no evidence of quantitatively significant increased glucose metabolism. There are no additional parenchymal densities-nodules noted in the right-left hemithorax manifesting quantitatively significant increased glucose metabolism. Subcentimeter bilateral axillary soft tissue densities are non-glucose avid. ABDOMEN AND PELVIS: Cholelithiasis is defined. Atherosclerotic calcification is defined in the abdominal aorta without evidence of dilatation, aneurysm formation. Pelvic arterial calcification is observed. Right-left inguinal soft tissue densities with fatty hilus formation are ametabolic. SKELETAL: Degenerative changes defined in the cervical, thoracic and lumbar spine demonstrate no evidence for glucose hypermetabolism. PET/PET/CT Tumor Base -Thigh Init IMPRESSION: 1. Increased fluorine labeled glucose uptake defined in the left mid anterior hemithorax pulmonary parenchyma, left upper lobe fulfills quantitative criteria for viable neoplasm. Histopathologic analysis is recommended. (Polanco et al, Annals of Internal Medicine, 138:724, 2003). 2. Heterogeneous enhanced glucose metabolism manifest in the breast does not fulfill quantitative criteria for viable neoplasm. 3. The circumferential increase in radiopharmaceutical concentration demonstrated in the left anterior chest wall does not fulfill quantitative criteria for malignant transformation. Electronic Signature Dionisio Rdz D.O. Electronically Signed: Dionisio Rdz DO at 19:24 EDT Tel , Service support ,
== END ==
PROVIDERS: Family Provider Family Medicine; PCP Family Medicine; Visit Provider Internal Medicine Hematology & Oncology
DX: R91.1 Solitary pulmonary nodule (principal); Z85.3 Personal history of malignant neoplasm of breast
CPT/HCPCS: 78815; A9552; A4216

== ENCOUNTER → 2018-03-07 09:26 | Outpatient (CLI) | payer MEDICARE, OTHER, SELFPAY ==
[2018-03-07 10:48] LABS: Hematocrit 45.4 % (37-47); Hemoglobin 14.6 g/dl (12.0-15.0); Mean Corp Hgb Conc 32.2 g/gl (32-36); Mean Corpuscular Hgb 30.7 pg (27.0-32.0); Mean Corpuscular Volume 95.4 fL (81-99); Mean Platelet Vol. 9.8 fl (6.2-12.0); Platelet Count 249 K/mm3 (150-450); RBC Distribution Width CV 12.8 % (11.6-14.6); RBC Distribution Width SD 43.5 fl (35.1-43.9); Red Blood Count 4.76 M/mm3 (4.2-5.4); White Blood Count 5.6 K/mm3 (4.4-11.0)
[2018-03-07 10:50] LABS: International Normalized Ratio 1.1; Prothrombin Time (Protime)PT. 14.3 SECONDS (11.7-14.9)
[2018-03-07 10:55] LABS: Scan Indicated on CBC? Y/N NO
[2018-04-16 09:22] VITALS: BP 156/85; PULSE 113; RESP 18; TEMP 36.6; O2SAT 96; BMI 28.8
== END ==
PROVIDERS: Family Provider Family Medicine; PCP Family Medicine; Visit Provider Internal Medicine Critical Care Medicine
DX: I50.9 Heart failure, unspecified (principal); B37.0 Candidal stomatitis
CPT/HCPCS: 36415; 85027; 85610

== ENCOUNTER → 2018-04-16 08:47 | Outpatient (CLI) | payer MEDICARE, OTHER, SELFPAY ==
[2018-04-16] VITALS (9 sets, daily range): BP systolic 147–163; BP diastolic 73–110; PULSE 92–110; RESP 18–25; O2SAT 20–100
--- NOTE | 2018-04-16 | IMM_PTH ---
PATIENT: EUNICE BRAVO LOC: CT U#:[id number] AGE/SX: 79/F ROOM: RE04/16/[address]: Dr. Apolinar Cazares DO : 1945 BED: DIS: SPEC #: [id number] RECD: 04/17/18 12:05 STATUS: KEVIN REOumar #: [id number] ELSA: 04/16/18 00:[address]: Apolinar Cazares DEPT: IMMUNOHISTOCHEMISTRY RECD BY: Alexus Schwartz ENTERED: 04/17/18 12:07 SP TYPE: IMMUNO OTHR DR: Dr. Juan Brandt MD Tissues: Lung, NOS Procedures: ER (add) TTF1 (add) CK7 (initial) PHYSICIAN & INSTITUTION [place] [id number] SPECIMEN INFORMATION: Tissue Source: CT guided lung biopsy Clinical Info: Mass Specimen Number: [id number] CPT code: 01879, 39012 x2 METHODOLOGY: Deparaffinized sections of prefer/formalin-fixed tissue or PAP/DQ stained slides are incubated with monoclonal/polyclonal antibodies/oligonucleotide probes. Localization is made via biotin free immunoperoxidase method. Appropriate controls are performed and reacted as expected. Results on target cell population are indicated in the following table: RESULTS: ANTIBODY / CLONE RESULT CK7 (OV-TL12/30) positive ER (6F11) *non-contributory TTF-1 (8G7G3/1) *non-contributory These tests were developed and their performance characteristics determined by [facility]. They may not have been cleared or approved by the U.S. Food and Drug Administration. The FDA has determined that such clearance or approval is not necessary. INTERPRETATION: CT guided lung biopsy: Non-small cell carcinoma consistent with adenocarcinoma *The tissue is exhausted in the block Case has been reviewed in consultation with Dr. Trejo who concurs with the above diagnosis. IDC:[email or web address] AM:manny 04/21/18
--- NOTE | 2018-04-16 | ASPIGT_PTH ---
PATIENT: EUNICE BRAVO LOC: CT U#:[id number] AGE/SX: 79/F ROOM: RE04/16/[address]: Dr. Apolinar Cazares DO : 1945 BED: DIS: SPEC #: [id number] RECD: 04/16/18 13:16 STATUS: KEVIN MERLYN #: [id number] ELSA: 04/16/18 00:[address]: Apolinar Cazares DEPT: SURGICAL PATHOLOGY RECD BY: Leo Smith ENTERED: 04/16/18 13:16 SP TYPE: ASP RAD OTHR DR: Dr. Juan Brandt MD Tissues: Lung, NOS Procedures: FNA Specimen Adequacy Special Stain Group II Surgery Specimen Level IV Diff Quik Stain (control) Imprint (control) HEADER OPERATION: CT guided lung biopsy PRE-OP DIAGNOSIS: Mass TISSUE SUBMITTED: 20 gauge cores x4 MICROSCOPIC DI[address]IS CT guided lung mass, core biopsy: Non small cell carcinoma, adenocarcinoma. AM:sp 04/17/18 COMMENT The specimen is evaluated at the time of CT by Dr. Trejo. Immediate Evaluation = Atypical cells consistent with plasma cells are noted. Immunohistochemistry ([id number]) supports the above diagnosis. The tumor is positive for CK7. The tissue was limited and exhausted in the block. Clinical correlation is suggested. A metastatic carcinoma cannot be excluded. Case has been reviewed in consultation with Dr. Trejo who concurs with the above diagnosis. IDC:[email or web address] MICROSCOPIC DESCRIPTION Slides are reviewed. GROSS DESCRIPTION Received in fixative is one container labeled with the patient's name and designated lung biopsy CT guided. The specimen consists of multiple fragments of bliss soft tissue measuring in aggregate 1.5 x 0.1 x less than 0.1 cm. The specimen is totally submitted in one cassette. Smiley 04/16/18 TC:0 CPT: 10884, 63764, 43460
--- NOTE | 2018-04-16 09:11 | CT_ITS ---
PROCEDURE: CT GUIDED CORE NEEDLE BIOPSY OF A anterior left upper lobe LUNG LESION INDICATION: Female, 72 years old. Left upper lobe soft tissue density and overlying bony destruction. PHYSICIAN: Dr. Brad GILBERT CONSENT: Written informed consent was obtained having explained the risks, benefits and alternatives in detail with the patient who accepted the risks and agreed to proceed. Laboratory review and clinical assessment was performed. CONSCIOUS SEDATION PROTOCOL: The Drugs used were: 2 mg Versed, IV., and 50 mcg Fentanyl, IV. The sedation time was: 16 minutes. The contrast sedation protocol was started at 10:00 AM and terminated at 10:16 AM. The conscious sedation protocol was independently monitored. RADIATION DOSAGE (If Supplied By Facility): CTDIvol = ( 18.5 ) mGy, DLP = ( 495.17 ) mGycm Individualized dose optimization techniques were used for this CT. TECHNIQUE: The patient was placed in the supine position. A noncontrast CT was performed to localize the lesion in the anterior aspect of the left upper lobe . The skin surface was prepped and draped in a sterile fashion. 1% lidocaine was used for local anesthesia. Using CT guidance, a 20-gauge coaxial biopsy device was advanced to the periphery of the lesion. A total of 3 core specimens were obtained. The specimens were placed in a formalin solution. A post procedure CT demonstrated no adverse sequelae or pneumothorax. The patient tolerated the procedure well without adverse event. A negative biopsy does not exclude malignancy. Further imaging or clinical followup based on patient condition and degree of clinical suspicion for malignancy. Suggest rebiopsy, if biopsy results do not match with clinical scenario. CT/Biopsy/Inj or Needle Placement IMPRESSION: 1. CT directed core needle biopsy of the anterior left upper lobe pulmonary lesion using CT image guidance with image documentation as described. Pathology results are pending. 2. Conscious Sedation protocol utilized with independent monitoring. Electronically Signed: Kenneth Salinas MD at 11:14 EDT Tel [phone], Service support ,
[2018-04-16 09:28] LABS: International Normalized Ratio 1.1; Prothrombin Time (Protime)PT. 14.5 SECONDS (11.7-14.9)
[2018-04-16 09:33] LABS: Partial Thromboplast Time 27.1 Seconds (24.1-36.2)
--- NOTE | 2018-04-16 10:19 | RAD_ITS ---
STUDY: X-RAY CHEST REASON FOR EXAM: Female, 72 years old. Post left lung biopsy radiograph. TECHNIQUE: AP inspiration and expiration views. COMPARISON: Comparison is made with prior study dated December 30, 2017. FINDINGS: There is no evidence of pneumothorax on the post left lung biopsy radiographs. RAD/Chest Insp/Exp 2 View IMPRESSION: No evidence of pneumothorax. Electronically Signed: Kenneth Salinas MD at 8:30 EDT Tel [phone], Service support ,
== END ==
PROVIDERS: Family Provider Family Medicine; PCP Family Medicine; Visit Provider Internal Medicine Hematology & Oncology
DX: R91.1 Solitary pulmonary nodule (principal); Z85.3 Personal history of malignant neoplasm of breast
CPT/HCPCS: 32405; 36415; 71046; 77012; 85610; 85730; 88172; 88305; 88313; 88341; 88342; 99156; J7040; A4216

== ENCOUNTER → 2018-05-07 08:25 | Outpatient (CLI) | payer MEDICARE, OTHER, SELFPAY ==
[2018-05-07 09:23] LABS: Hematocrit 45.7 % (37-47); Hemoglobin 14.6 g/dl (12.0-15.0); Mean Corp Hgb Conc 31.9 g/gl (32-36); Mean Corpuscular Hgb 30.7 pg (27.0-32.0); Mean Corpuscular Volume 96.2 fL (81-99); Mean Platelet Vol. 9.9 fl (6.2-12.0); Platelet Count 192 K/mm3 (150-450); RBC Distribution Width CV 13.9 % (11.6-14.6); Red Blood Count 4.75 M/mm3 (4.2-5.4); White Blood Count 4.9 K/mm3 (4.4-11.0)
[2018-05-07 09:25] LABS: Scan Indicated on CBC? Y/N NO
[2018-05-07 09:30] LABS: International Normalized Ratio 1.2; Prothrombin Time (Protime)PT. 14.9 SECONDS (11.7-14.9)
[2018-05-07 09:31] LABS: Partial Thromboplast Time 28.6 Seconds (24.1-36.2)
== END ==
PROVIDERS: Family Provider Family Medicine; PCP Family Medicine; Visit Provider Nurse Practitioner Acute Care
DX: I50.9 Heart failure, unspecified (principal); R91.8 Other nonspecific abnormal finding of lung field; B37.0 Candidal stomatitis
CPT/HCPCS: 36415; 85027; 85610; 85730

== ENCOUNTER → 2018-05-09 09:31 | Outpatient (CLI) | payer MEDICARE, OTHER, SELFPAY ==
[2018-05-09] VITALS (9 sets, daily range): BP systolic 129–180; BP diastolic 75–128; PULSE 90–125; RESP 12–20; TEMP 36.6; O2SAT 92–98; BMI 28.5
--- NOTE | 2018-05-09 | ASPIGT_PTH ---
PATIENT: EUNICE BRAVO LOC: [facility] U#:[id number] AGE/SX: 79/F ROOM: RE05/09/[address]: RAFAEL Conner : 1945 BED: DIS: SPEC #: [id number] RECD: 05/09/18 14:36 STATUS: KEVIN REOumar #: [id number] ELSA: 05/09/18 00:[address]: Apolinar Cazares DEPT: SURGICAL PATHOLOGY RECD BY: Leo Smith ENTERED: 05/09/18 14:36 SP TYPE: ASP RAD OTHR DR: Dr. Juan Brandt, MD Jayleen Burr, GRADUATE TEACHING ASSOCIATE-C Tissues: Lung, NOS Procedures: FNA Specimen Adequacy Special Stain Group II Surgery Specimen Level IV Diff Quik Stain (control) Imprint (control) Comments: @ Ordering doctor for SSII edited from SHIRLEY to @ by GANESH at 05/12/18 1012 @ Ordering doctor for SUIV edited from SHIRLEY to DR.PMASCI Painting by GANESH at 05/12/18 1012 @ Ordering doctor for DQ edited from SHIRLEY to DR.PMASCI Painting by GANESH at 05/12/18 1012 @ Ordering doctor for IMPRINT edited from SHIRLEY to DR.PMASCI Painting by GANESH at 05/12/18 1012 @ Ordering doctor for FNASA edited from SHIRLEY to DR.PMASCI Painting by GANESH at 05/12/18 1012 @ Submitting doctor edited from SHIRLEY to DR.PMASCI Garima ANDERSEN at 05/12/18 1012 HEADER OPERATION: CT-guided left lung biopsy PRE-OP DIAGNOSIS: RICHARD lung mass TISSUE SUBMITTED: Left upper lung 18g core x4 MICROSCOPIC DIAGNOSIS Left upper lung lobe mass, CT-guided core biopsy: Malignant cells consistent with non-small cell carcinoma, adenocarcinoma. See comment. SJ:jayden 05/12/18 COMMENT The specimen is evaluated at the time of CT-guided biopsy by Dr. Trejo. Immediate Evaluation = Malignant cells present, non-small cell carcinoma. Immunohistochemistry ([id number]) supports the above diagnosis. Please make reference to previous specimen ([id number]) right breast, core biopsy with diagnosis of infiltrating ductal carcinoma and ([id number]) CT-guided lung mass, core biopsy with diagnosis of nonsmall cell carcinoma, adenocarcinoma. Molecular studies on the tumor will be reported separately as an addendum. MICROSCOPIC DESCRIPTION Slides are reviewed. GROSS DESCRIPTION Received in fixative is one container labeled with the patient's name and designated left upper lung mass, CT-guided core biopsy. The specimen consists of multiple elongated fragments of bliss soft tissue that in aggregate measure 1.5 x 0.3 x 0.1 cm. The entire specimen is submitted in two cassettes. One touch imprint is prepared at the time of core biopsy. / SJ:rg 05/09/18 TC:0 CPT: 11330, 84692 ADDENDUM ADDENDUM ADDENDUM ADDENDUM ADDENDUM ADDENDUM ADDENDUM ADDENDUM ADDENDUM ADDENDUM ADDENDUM ADDENDUM 06/02/2018 09:20 ADDENDUM 06/02/2018 09:20 ADDENDUM 06/02/2018 09:20 ADDENDUM 06/02/2018 09:20 ADDENDUM 06/02/2018 09:20 (KEYUDA) PD-L1 [facility] INTERPRETATION: No expression. Tumor proportion score 0% ALK FISH, LUNG, NON-SMALL CELL [facility] FISH RESULT: No result. INTERPRETATION: Repeated FISH testing on the paraffin block submitted was unsuccessful. Please see complete report in e-chart or EMR for complete details.
--- NOTE | 2018-05-09 | IMM_PTH ---
PATIENT: EUNICE BRAVO LOC: CT U#:[id number] AGE/SX: 79/F ROOM: RE05/09/[address]: Jayleen Burr, CUSTOMER SOLUTIONS TEAMMATE-C : 1945 BED: DIS: SPEC #: [id number] RECD: 05/12/18 09:59 STATUS: KEVIN REQ #: [id number] ELSA: 05/09/18 00:[address]: Apolinar Cazares DEPT: IMMUNOHISTOCHEMISTRY RECD BY: Lo Mejia ENTERED: 05/12/18 10:00 SP TYPE: IMMUNO OTHR DR: MD Jayleen Qureshi, CUSTOMER SOLUTIONS TEAMMATE-C Tissues: Lung, NOS Procedures: RCC (add) NAPSIN A (add) CK20 (add) CK5-6 (add) ER (add) MAMM (add) NH (add) TTF1 (add) GATA3 (add) P40 (add) CK7 (initial) Comments: @ Ordering doctor for CK7 edited from SHIRLEY to DR.PMASCI Painting by GANESH at 05/12/18 1012 @ Ordering doctor for NAP. edited from SHIRLEY to DR.PMASCI Painting by GANESH at 05/12/18 1012 @ Ordering doctor for CK20. edited from SHIRLEY to DR.PMASCI Painting by GANESH at 05/12/18 1012 @ Ordering doctor for CK5-6. edited from SHIRLEY to DR.PMASCI Painting by GANESH at 05/12/18 1012 @ Ordering doctor for TTF1. edited from SHIRLEY to DR.PMASCI Painting by GANESH at 05/12/18 1012 @ Ordering doctor for P40. edited from SHIRLEY to DR.PMASCI Painting by GANESH at 05/12/18 1012 @ Submitting doctor edited from SHIRLEY to @ by CHENGOD at 05/12/18 1012 PHYSICIAN & INSTITUTION [place] [id number] SPECIMEN INFORMATION: Tissue Source: Left upper lung Clinical Info: Left upper lung mass Specimen Number: [id number] #2 CPT code: 40732, 85787 x10 METHODOLOGY: Deparaffinized sections of prefer/formalin-fixed tissue or PAP/DQ stained slides are incubated with monoclonal/polyclonal antibodies/oligonucleotide probes. Localization is made via biotin free immunoperoxidase method. Appropriate controls are performed and reacted as expected. Results on target cell population are indicated in the following table: RESULTS: ANTIBODY / CLONE RESULT Block 2 CK7 (OV-TL12/30) positive CK20 (KS20.8) negative P40 (BC28) negative CK5-6 (D5 & 1684) negative TTF-1 (8G7G3/1) positive Napsin A (Rabbit Polyclonal) positive ER (6F11) negative NH (1E2) negative GATA3 (L50-823) negative Mammaglobin (31A5) negative RCC (PN-15) negative These tests were developed and their performance characteristics determined by [facility]. They may not have been cleared or approved by the U.S. Food and Drug Administration. The FDA has determined that such clearance or approval is not necessary. INTERPRETATION: Left upper lung, CT-guided biopsy: Non-small cell carcinoma, favor adenocarcinoma, consistent with lung primary. SJ:jayden 05/13/18
--- NOTE | 2018-05-09 09:33 | CT_ITS ---
PROCEDURE: CT GUIDED CORE NEEDLE BIOPSY OF A left upper lobe peripheral LUNG LESION INDICATION: Female, 72 years old. Metastatic breast cancer. PHYSICIAN: Dr. Brad GILBERT CONSENT: Written informed consent was obtained having explained the risks, benefits and alternatives in detail with the patient who accepted the risks and agreed to proceed. Laboratory review and clinical assessment was performed. CONSCIOUS SEDATION PROTOCOL: The Drugs used were: 1 mg Versed, IV., and 25 mcg Fentanyl, IV. The sedation time was: 18 minutes. Conscious sedation was started 10:15 AM and terminated at 10:33 AM. The conscious sedation protocol was independently monitored. RADIATION DOSAGE (If Supplied By Facility): CTDIvol = ( 22 ) mGy, DLP = ( 702.47 ) mGycm Individualized dose optimization techniques were used for this CT. TECHNIQUE: The patient was placed in the supine position. A noncontrast CT was performed to localize the lesion in the anterior aspect of the left upper lobe . The skin surface was prepped and draped in a sterile fashion. 1% lidocaine was used for local anesthesia. Using CT guidance, a 18-gauge coaxial biopsy device was advanced to the periphery of the lesion. A total of 6 core specimens were obtained. The specimens were placed in a formalin solution. A post procedure CT demonstrated no adverse sequelae or pneumothorax. The patient tolerated the procedure well without adverse event. A negative biopsy does not exclude malignancy. Further imaging or clinical followup based on patient condition and degree of clinical suspicion for malignancy. Suggest rebiopsy, if biopsy results do not match with clinical scenario. CT/Biopsy/Inj or Needle Placement IMPRESSION: 1. CT directed core needle biopsy of the left upper lobe using CT image guidance with image documentation as described. Pathology results are pending. 2. Conscious Sedation protocol utilized with independent monitoring. Electronically Signed: Kenneth Salinas MD at 12:49 EDT Tel [phone], Service support ,
--- NOTE | 2018-05-09 10:40 | RAD_ITS ---
STUDY: X-RAY CHEST REASON FOR EXAM: Female, 72 years old. Status post left lung biopsy. TECHNIQUE: AP expiration and inspiration views were obtained. COMPARISON: Comparison is made with prior study dated April 16, 2018. FINDINGS: The patient is status post left upper lobe biopsy. There is no evidence of pneumothorax. Stable nodular densities in the left mid lung. RAD/Chest Insp/Exp 2 View IMPRESSION: Status post left upper lobe biopsy. There is no evidence of pneumothorax. Electronically Signed: Kenneth Salinas MD at 14:52 EDT Tel [phone], Service support ,
== END ==
PROVIDERS: Family Provider Family Medicine; PCP Family Medicine; Visit Provider Nurse Practitioner Acute Care
DX: R91.1 Solitary pulmonary nodule (principal); C50.919 Malignant neoplasm of unspecified site of unspecified female breast; C79.9 Secondary malignant neoplasm of unspecified site
CPT/HCPCS: 32405; 71046; 77012; 88172; 88305; 88313; 88341; 88342; 99156; 99157; J7040; A4216

== ENCOUNTER → 2018-07-21 10:42 | Outpatient (CLI) | payer MEDICARE, OTHER, SELFPAY ==
--- NOTE | 2018-07-21 11:30 | PET_ITS ---
EXAMINATION: FDG PET CT INDICATIONS: A 72-year-old female with reported history of carcinoma of the breast presenting for restaging examination. COMPARISON EXAMINATION: Previous FDG PET study dated 02/02/18. INDEX LESION SIZE SUV INTERPRETATION PERSISTENT: Left mid anterior hemithorax pulmonary parenchyma, left upper lobe 19.7 mm x 29.1 mm (frame 177) compared to 26.5 mm, 02/03/18 10.5 compared to 6.8, 02/03/18 Quantitative criteria for viable neoplasm are fulfilled, interim metabolic progression NON-INDEX LESION SIZE SUV INTERPRETATION PERSISTENT: Right breast 1.6 compared to 1.3, 02/03/18 Quantitative criteria for viable neoplasm are not fulfilled PERSISTENT: Left anterior chest wall 1.2 compared to 1.1, 02/03/18 Quantitative criteria for viable neoplasm are not fulfilled TECHNIQUE: Following the intravenous administration of 14.8 mCi of F-18 deoxyglucose via the left antecubital fossa, multiplanar image acquisitions of the neck, chest, abdomen and pelvis to level of mid thigh, obtained at one hour post radiopharmaceutical administration contemporaneously interpreted with the current CT of the neck, chest, abdomen and pelvis to level of mid thigh, dated 07/21/18 via coregistration and previous FDG PET study dated 02/03/18 reveal: SERUM GLUCOSE LEVEL: 83 mg/dl. HEIGHT: 64 inches. WEIGHT: 160 lbs. FINDINGS: 1. Redefined increased glucose metabolism is manifest in the left mid anterior hemithorax pulmonary parenchyma, left upper lobe generating a current calculated maximum standard uptake value of 10.5 compared to 6.8 demonstrated on the FDG PET study dated 02/03/18. The maximal axial diameter of the corresponding parenchymal density on review of CT of the thorax dated 07/21/18 is 19.6 mm (transverse) x 29.1 mm (AP). 2. Normal physiologic distribution of the radiopharmaceutical is apparent in the hepatic (2.6/3.7) and splenic parenchyma, both renal units, bladder and visualized intestinal tract. There is uniform distribution of the radiopharmaceutical concentration defined in the visualized cerebellar hemispheres and cerebral cortical structures.? Diffuse intestinal tract activity is noted throughout all four quadrants of the abdominal-pelvic retroperitoneum, mesentery consistent with normal physiologic distribution of the radiopharmaceutical. Heterogeneous enhanced FDG uptake persists in the right breast generating a current calculated maximum standard uptake value of 1.6 compared to 1.3 defined on the FDG PET study dated 02/03/18 and left anterior chest wall with a current calculated maximum standard uptake value of 1.2 compared to 1.1 demonstrated on the examination dated 02/03/18. The prior defined morphologic-anatomic changes noted on CT of the neck, chest, abdomen and pelvis manifest on the FDG PET CT study dated 02/03/18 are essentially unchanged on the present examination. PET/PET/CT Tumor Base -Thigh Init IMPRESSION: 1. ABNORMAL EXAMINATION INDICATIVE OF MALIGNANT VIABLE NEOPLASM. 2. Increased glucose concentration persistently defined in the left mid anterior hemithorax pulmonary parenchyma, left upper lobe fulfills quantitative criteria for viable neoplasm. (Polanco et al, Annals of Internal Medicine, 138:724, 2003). 3. Facilitated FDG uptake persistently defined in the right breast and left anterior chest wall does not fulfill quantitative criteria for malignant transformation. 4. Overall, compared to the prior FDG PET study dated 02/03/18, there is interim metabolic progression of defined viable neoplastic disease within the context of the left mid anterior lung zone-left upper lobe hypermetabolic focus. Electronic Signature Dionisio Rdz D.O. Electronically Signed: Dionisio Rdz DO at 23:34 EDT Tel , Service support ,
== END ==
PROVIDERS: Family Provider Family Medicine; PCP Family Medicine; Referring Provider Internal Medicine Hematology & Oncology; Visit Provider Internal Medicine Hematology & Oncology
DX: C34.12 Malignant neoplasm of upper lobe, left bronchus or lung (principal); R91.8 Other nonspecific abnormal finding of lung field; Z85.3 Personal history of malignant neoplasm of breast
CPT/HCPCS: 78815; A9552

== ENCOUNTER → 2018-09-16 11:17 | Outpatient (CLI) | payer MEDICARE, OTHER, SELFPAY ==
[2018-09-03 11:10] VITALS: BMI 29.2
--- NOTE | 2018-09-16 | FLU_PTH ---
PATIENT: EUNICE BRAVO LOC: [facility]#:[id number] AGE/SX: 79/F ROOM: RE09/16/[address]: Dr. Apolinar Cazares DO : 1945 BED: DIS: SPEC #: [id number] RECD: 09/16/18 14:13 STATUS: KEVIN MERLYN #: [id number] ELSA: 09/16/18 00:[address]: Apolinar Cazares DEPT: CYTOLOGY RECD BY: Alexus Schwartz ENTERED: 09/16/18 14:14 SP TYPE: Fluid OTHR DR: Dr. Juan Brandt MD Tissues: THORACIC FLUID Procedures: Special Stain Group II Surgery Specimen Level IV Cytospin Fluid HEADER OPERATION: Ultrasound-guided right thoracentesis PRE-OP DIAGNOSIS: Right pleural effusion TISSUE SUBMITTED: Thoracentesis fluid for cytology DIAGNOSIS CYTOLOGY Thoracentesis fluid for cytology (cytospin and cell block): Negative for malignant cells. See cytology study and comment. SJ:jayden 09/17/18 COMMENT Clinical correlation and appropriate follow up are necessary. Please make reference to previous specimen ([id number]), left breast, modified radical mastectomy with diagnosis of invasive ductal carcinoma, ([id number]) right breast, lumpectomy with diagnosis of infiltrating moderately differentiated ductal carcinoma, ([id number] and [id number]) left lung, CT-guided core biopsy with diagnosis of non-small cell carcinoma, adenocarcinoma. CYTOLOGY STUDY Slides are reviewed. The specimen consists of macrophages, mesothelial cells and inflammatory cells. CYTOLOGY GROSS Received is 95 ml of cloudy red fluid labeled with the patient's name and and designated per the requisition as thoracentesis. Submitted for cytology preparation including cell block. / 09/16/18 TC:5 CPT: 75876, 63707
--- NOTE | 2018-09-16 11:37 | US_ITS ---
PROCEDURE: ULTRASOUND GUIDED THORACENTESIS. DATE: September 16, 2018. INDICATION: Female, 72 years old. Right pleural effusion. PHYSICIAN: Kenneth Salinas M.D. PROCEDURE: The risks, benefits, and alternatives to the procedure were explained to the patient. The specific risks of bleeding, infection, and pneumothorax requiring chest tube insertion were discussed and accepted. Written informed consent was obtained. Ultrasonographic evaluation of the right lower pleural space was carried out. An adequate pocket was identified. The patient was placed in the sitting, upright position. The overlying skin was prepped and draped in sterile fashion. 1% lidocaine was administered subcutaneously for local anesthesia. Under ultrasound guidance, a 5 [place] thoracentesis needle/catheter system was advanced into the right posterior lower pleural fluid collection. Approximately 220 mL of blood-tinged fluid fluid was drained. The catheter was removed, and a sterile dressing was applied. A specimen was collected and sent to the laboratory for analysis, as requested by the referring clinician. The patient tolerated the procedure well. A chest x-ray was ordered. US/Thoracentesis W US IMPRESSION: Ultrasound-guided right thoracentesis. Electronically Signed: Kenneth Salinas MD at 14:01 EST Tel [phone], Service support ,
[2018-09-16 11:54] LABS: ALB/GLOB Ratio 1.1 RATIO (0.9-2.4); AST(SGOT) 29 U/L (15-37); Alanine Aminotransfer ALT/SGPT 31 U/L (13-56); Albumin, Serum 3.7 g/dL (3.2-5.0); Alkaline Phosphatase 154 U/L (45-117); Anion Gap 5 (5-15); BUN 5 mg/dL (7-18); BUN/Creat Ratio 8.7 RATIO (10-20); Calcium,Total 9.2 mg/dL (8.5-10.1); Chloride 98 mmol/L (98-107); Creatinine, Serum 0.57 mg/dL (0.55-1.02); EST Glomerular Filtration Rate 110 mL/min (>60); Est Glom Filt Rate - Afr Amer 134 mL/min (>60); Globulin 3.3 g/dL (2.2-4.2); Glucose 111 mg/dL (74-106); LDH 165 U/L (84-246); Potassium 3.4 mmol/L (3.5-5.1); Sodium Level 134 mmol/L (136-145)
[2018-09-16 11:55] LABS: International Normalized Ratio 1.2; Prothrombin Time (Protime)PT. 14.7 SECONDS (11.7-14.9)
[2018-09-16 11:56] LABS: Partial Thromboplast Time 28.6 Seconds (24.1-36.2)
[2018-09-16 12:40] VITALS: BP 154/107; PULSE 111; RESP 16; O2SAT 93; BMI 27.4
[2018-09-16 12:52] VITALS: BP 150/102; PULSE 104; RESP 16; O2SAT 93
--- NOTE | 2018-09-16 12:58 | RAD_ITS ---
STUDY: X-RAY CHEST REASON FOR EXAM: Female, 72 years old. Post thoracentesis TECHNIQUE: 2 AP portable view of the chest. Inspiration and expiration views COMPARISON: 05/09/2018 FINDINGS: There is hyperinflation of the lungs consistent with chronic obstructive lung disease (COPD). Right and left pleural effusion is noted. No evidence of pneumothorax. Again noted is left midlung field mass. There is mild cardiac enlargement. Normal mediastinum and mike. Normal visualized pulmonary arteries. There is atherosclerotic tortuosity of the aortic arch and descending thoracic aorta. There is a dextroscoliosis of the thoracic spine. Normal visualized ribs, clavicles, and shoulders. There is no demonstrated abnormality of the visualized soft tissue structures of the upper abdomen. RAD/Chest Insp/Exp 2 View IMPRESSION: No evidence of pneumothorax. Small bilateral pleural effusions. COPD. Left midlung field mass Electronically Signed: Vishal Ruiz DO at 11:41 EST Tel , Service support ,
[2018-09-16 13:05] VITALS: BP 163/97; PULSE 103; RESP 16; O2SAT 93
[2018-09-16 13:34] LABS: Cytology, Body Fluid / CSF SEE PATHOLOGY REPORT
[2018-09-16 14:19] LABS: LDH,Body Fluid 71 Units/l (Not Establ.); Protein, Body Fluid 2.7 g/dL (Not Establ.)
--- OUTSIDE RECORDS SUMMARY | 2018-10-29 03:00 | XMS RPT_ITS ---
:1945 Author Organization OHIP Support Name Relationship Address Phone R Unavailable Unavailable Unavailable LAWRENCE MARIA DOLORES Unavailable [id number] + [place] [address] R Unavailable Unavailable Unavailable EV MARIA DOLORES Unavailable [address] + [place] [address] R Unavailable Unavailable Unavailable LAWRENCE MARIA DOLORES Unavailable [address] + [place] [address] R Unavailable Unavailable Unavailable EV MARIA DOLORES Unavailable [id number] [place] [address] RD + [place] [address] R Unavailable Unavailable Unavailable EV MARIA DOLORES Unavailable [address] + [place] [address] R Unavailable Unavailable Unavailable EV MARIA DOLORES Unavailable [address] + [place] [address] R Unavailable Unavailable Unavailable LAWRENCE MARIA DOLORES Unavailable [address] + [place] [address] R Unavailable Unavailable Unavailable LAWRENCE MARIA DOLORES Unavailable [address] + [place] [address] R Unavailable Unavailable Unavailable EV MARIA DOLORES Unavailable [address] + [place] [address] R Unavailable Unavailable Unavailable EV MARIA DOLORES Unavailable [address] + [place] [address] R Unavailable Unavailable Unavailable LAWRENCE MARIA DOLORES Unavailable [address] + [place] [address] R Unavailable Unavailable Unavailable LAWRENCE MARIA DOLORES Unavailable [address] + [place] [address] R Unavailable Unavailable Unavailable LAWRENCE MARIA DOLORES Unavailable [address] + [place] [address] R Unavailable Unavailable Unavailable [facility] MARIA DOLORES Unavailable [address] + [place] [address] R Unavailable Unavailable Unavailable [facility] MARIA DOLORES Unavailable [address] + [place] [address] R Unavailable Unavailable Unavailable [facility] MARIA DOLORES Unavailable [address] + [place] [address] R Unavailable Unavailable Unavailable [facility] MARIA DOLORES Unavailable [address] + [place] [address] R Unavailable Unavailable Unavailable [facility] MARIA DOLORES Unavailable [address] + [place] [address] R Unavailable Unavailable Unavailable [facility] MARIA DOLORES Unavailable [address] + [place] [address] R Unavailable Unavailable Unavailable [facility] MARIA DOLORES Unavailable [address] + [place] [address] R Unavailable Unavailable Unavailable [facility] MARIA DOLORES Unavailable [address] + [place] [address] R Unavailable Unavailable Unavailable [facility] MARIA DOLORES Unavailable [address] + [place] [address] R Unavailable Unavailable Unavailable [facility] MARIA DOLORES Unavailable [address] + [place] [address] R Unavailable Unavailable Unavailable [facility] MARIA DOLORES Unavailable [address] + [place] [address] R Unavailable Unavailable Unavailable [facility] MARIA DOLORES Unavailable [address] + [place] [address] R Unavailable Unavailable Unavailable [facility] MARIA DOLORES Unavailable [address] + [place] [address] R Unavailable Unavailable Unavailable [facility] MARIA DOLORES Unavailable [address] + [place] [address] R Unavailable Unavailable Unavailable [facility] MARIA DOLORES Unavailable [address] + [place] [address] R Unavailable Unavailable Unavailable LAWRENCE, MARIA DOLORES Unavailable [address] + [place] [address] R Unavailable Unavailable Unavailable LAWRENCE, MARIA DOLORES Unavailable [address] + [place] [address] R Unavailable Unavailable Unavailable LAWRENCE, MARIA DOLORES Unavailable [address] + [place] [address] Care Team Providers Name Role Phone JUAN MCDANIEL Attending Unavailable VIOLETAJUAN Referring Unavailable VIOLETA, JUAN Lehman Attending Unavailable RASHID BRISCOE (QUOTATION CHECKER) Attending Unavailable MASCI, APOLINAR Glass Attending Unavailable RASHID BRISCOE (QUOTATION CHECKER) Referring Unavailable RACHNARASHID GLASS (QUOTATION CHECKER) Referring Unavailable VIOLETA, JUAN Lehman Attending Unavailable VIOLETA, JUAN Lehman Referring Unavailable VIOLTEA, JUAN Lehman Referring Unavailable Isac AKBAR (MILLY) Attending Unavailable VIOLETA, JUAN Lehman Referring Unavailable VIOLETA, JUAN Lehman Referring Unavailable MASCI, APOLINAR Glass Attending Unavailable MASCI, APOLINAR Glass Referring Unavailable VIOLETA, JUAN Lehman Referring Unavailable MASCI, APOLINAR Glass Attending Unavailable MASCI, APOLINAR Glass Referring Unavailable VIOLETA, JUAN Lehman Attending Unavailable VIOLETA, JUAN Lehman Referring Unavailable VIOLETA, JUAN Lehman Referring Unavailable VIOLETA, JUAN Lehman Attending Unavailable VIOLETA, JUAN Lehman Referring Unavailable VIOLETA, JUAN Lehman Attending Unavailable VIOLETA, JUAN Lehman Referring Unavailable VIOLETA, JUAN Lehman Referring Unavailable MASCI, APOLINAR Glass Attending Unavailable MASCI, APOLINAR Glass Referring Unavailable MASCI, APOLINAR Glass Referring Unavailable MIRNA, GIOVANNI Attending Unavailable MASCI, APOLINAR Glass Referring Unavailable MIRNA, GIOVANNI Attending Unavailable MIRNA, GIOVANNI Referring Unavailable MIRNA, GIOVANNI Attending Unavailable MIRNA, GIOVANNI Attending Unavailable MIRNA, GIOVANNI Attending Unavailable MIRNA, GIOVANNI Attending Unavailable Param Jerome Attending Unavailable Gabriel Robert Referring Unavailable VioletaJuan cantu Primary Care Unavailable DoffingJuan cantu Primary Care Unavailable Ashelfah, Ghasem Admitting Unavailable Becka, [place] Consulting Unavailable Rohan Yeh Attending Unavailable Mark Campos D.O. Consulting Unavailable Ashelfah, Ghasem Admitting Unavailable Ashelfah, Ghasem Attending Unavailable Juan Mcdaniel Primary Care Unavailable Ashelfah, Ghasem Consulting Unavailable Ashelfah, Ghasem Admitting Unavailable Becka, [place] Attending Unavailable Juan Mcdaniel Primary Care Unavailable Becka, [place] Consulting Unavailable Kittoe, Rohan Consulting Unavailable Ashelfah, Ghasem Admitting Unavailable Doffing, Juan Primary Care Unavailable Becka, Rusty Consulting Unavailable Kittoe, Rohan Attending Unavailable Kittoe, Rohan Consulting Unavailable Ashelfah, Ghasem Admitting Unavailable Becka, [place] Attending Unavailable Doffing, Juan Primary Care Unavailable Becka, [place] Consulting Unavailable Mark Campos D.O. Consulting Unavailable Kithaider, Rohan Consulting Unavailable Ashelfah, Ghasem Admitting Unavailable Cassandra Kearns CHIEF CLIENT OFFICER-C Attending Unavailable Doffing, [facility] Primary Care Unavailable Becka, [place] Consulting Unavailable Mark Campos D.O. Consulting Unavailable Rao, Rohan Consulting Unavailable Ashelfah, Ghasem Admitting Unavailable Mark Campos D.O. Attending Unavailable Violeta, [facility] Primary Care Unavailable Becka, Rusty Consulting Unavailable Mark Campos D.O. Consulting Unavailable Kittotory, Rohan Consulting Unavailable Ashelfah, Ghasem Admitting Unavailable Doffing, [facility] Primary Care Unavailable Becka, Rusty Consulting Unavailable Rohan Yeh Attending Unavailable Catarino Blake.Donato Consulting Unavailable Rao, Rohan Consulting Unavailable Ashelfah, Ghasem Admitting Unavailable Teodora Parsons NP-C Attending Unavailable Doffing, [facility] Primary Care Unavailable Becka, Rusty Consulting Unavailable Mark Campos D.O. Consulting Unavailable Rohan Yeh Consulting Unavailable Jayleen Burr Attending Unavailable Violeta, Juan Referring Unavailable Manolo Rothman Attending Unavailable Violeta, Juan Referring Unavailable Doffing, [facility] Primary Care Unavailable Aminah, Jayleen Attending Unavailable Burr, Jayleen Referring Unavailable Doffing, [facility] Primary Care Unavailable Burr, Jayleen Attending Unavailable Burr, Jayleen Referring Unavailable Doffing, Juan Primary Care Unavailable Apolinar Cazares Attending Unavailable Doffing, Juan Primary Care Unavailable Becka, [place] Attending Unavailable Ashelfah, Ghasem Referring Unavailable Becka, [place] Attending Unavailable Ashelfah, Ghasem Referring Unavailable Vignesh Escalera Attending Unavailable Mark Campos D.O. Attending Unavailable Aminah, Jayleen Referring Unavailable Mark Campos D.O. Attending Unavailable Aminah, Jayleen Referring Unavailable Mark Campos D.O. Attending Unavailable Violeta, Juan Referring Unavailable Mark Campos D.O. Attending Unavailable Mark Campos D.O. Referring Unavailable Doffing, Juan Primary Care Unavailable Mark Campos D.O. Attending Unavailable Mark Campos D.O. Referring Unavailable Doffing, Juan Primary Care Unavailable Aminah, Jayleen Attending Unavailable Violeta, Juan Referring Unavailable Masci, Apolinar Attending Unavailable Masci, Apolinar Referring Unavailable Doffing, Juan Primary Care Unavailable Aminah, Jayleen Attending Unavailable Doffing, Juan Referring Unavailable Burr, Jayleen Attending Unavailable Burr, Jayleen Referring Unavailable Doffing, Juan Primary Care Unavailable Burr, Jayleen Attending Unavailable Burr, Jayleen Referring Unavailable Violeta, Juan Primary Care Unavailable Mark Campos D.O. Attending Unavailable Violeta, Juan Referring Unavailable Masci, Apolinar Attending Unavailable Masci, Apolinar Referring Unavailable Violeta, Juan Primary Care Unavailable Mark Campos D.O. Attending Unavailable Doffing, Juan Referring Unavailable Masci, Apolinar Attending Unavailable Masci, Apolinar Referring Unavailable Violeta, Juan Primary Care Unavailable PROBLEMS PROBLEMS DATE TYPE CONDITION / CODE ATTENDING STATUS SOURCE 09/19/2018 Unknown I50.9 - Heart failure, Apolinar Cazares Active [facility] unspecified / Community I50.9(ICD-10) Hospital Repository 09/19/2018 Unknown J90 - Pleural Masci, Apolinar Active [place] effusion, not Community elsewhere classified / Hospital J90(ICD-10) Repository 08/01/2012 Active Personal history of NA Active [place] malignant neoplasm of [facility] Main breast / Z85.3(ICD-10) [place] Repository 06/24/2018 Active Malignant neoplasm of NA Active [facility] upper lobe, left [facility] Main bronchus or lung / [place] C34.12(ICD-10) Repository 07/15/2018 Active Abnormal results of NA Active [facility] liver function studies [facility] Main / R94.5(ICD-10) [place] Repository 07/03/2018 Active Hypokalemia / NA Active [facility] E87.6(ICD-10) [facility] Main [place] Repository 06/26/2018 Active Localized edema / NA Active [facility] R60.0(ICD-10) Clinic Main [place] Repository 06/26/2018 Active Edema, unspecified / NA Active [facility] R60.9(ICD-10) [facility] Main [place] Repository 06/26/2018 Active Hypercalcemia / NA Active [facility] E83.52(ICD-10) Clinic Main [place] Repository 06/26/2018 Active Pain in right leg / NA Active [facility] M79.604(ICD-10) Clinic Main [place] Repository 05/05/2018 Active Abnormal levels of NA Active [facility] other serum enzymes / Clinic Main R74.8(ICD-10) [place] Repository 05/01/2018 Unknown B37.0 - Candidal Burr, Active [place] stomatitis / [facility] Community B37.0(ICD-10) Hospital Repository 05/01/2018 Unknown R91.8 - Other Burr, Active [place] nonspecific abnormal [facility] Community finding of lung field Hospital / R91.8(ICD-10) Repository 04/28/2018 Active Pericardial effusion NA Active [facility] (noninflammatory) / Clinic Main I31.3(ICD-10) [place] Repository 04/16/2018 Unknown R91.1 - Solitary Apolinar Cazares Active [place] pulmonary nodule / Community R91.1(ICD-10) Hospital Repository 04/16/2018 Unknown Z85.3 - Personal Apolinar Cazares Active [facility] history of malignant Community neoplasm of breast / Hospital Z85.3(ICD-10) Repository 04/11/2018 Active Other microscopic NA Active [facility] hematuria / Clinic Main R31.29(ICD-10) [place] Repository 04/04/2018 Active Abnormal weight loss / NA Active [facility] R63.4(ICD-10) Clinic Main [place] Repository 04/04/2018 Active Other malaise / NA Active [facility] R53.81(ICD-10) Clinic Main [place] Repository 04/04/2018 Active Unspecified atrial NA Active [place] fibrillation / Clinic Main I48.91(ICD-10) [place] Repository 07/10/2010 Active Essential (primary) NA Active [place] hypertension / Clinic Main I10(ICD-10) [place] Repository 07/10/2010 Active Mixed hyperlipidemia / NA Active [facility] E78.2(ICD-10) Clinic Main [place] Repository 03/04/2018 Unknown J44.9 - Chronic Mark Campos, Active [place] obstructive pulmonary D.O. Community disease, unspecified / Hospital J44.9(ICD-10) Repository 03/04/2018 Unknown F17.200 - Nicotine Mark Campos, Active [facility] dependence, D.O. Community unspecified, Hospital uncomplicated / Repository F17.200(ICD-10) 01/09/2018 Active Acute systolic RACHNACELIAE Active [facility] (congestive) heart (QUOTATION CHECKER) Clinic Main failure / [place] I50.21(ICD-10) Repository 01/09/2018 Active Other nonspecific RACHNARASHID Active [facility] abnormal finding of (QUOTATION CHECKER) [facility] Main lung field / [place] R91.8(ICD-10) Repository 01/09/2018 Active Persistent atrial RACHNARASHID Active [place] fibrillation / (QUOTATION CHECKER) [facility] Main I48.1(ICD-10) [place] Repository 02/01/2018 Unknown R94.31 - Abnormal Becka, Rusty Active [place] electrocardiogram Community [ECG] [EKG] / Hospital R94.31(ICD-10) Repository 02/12/2018 Unknown M79.89 - Other Cebul, Vignesh Active [facility] specified soft tissue Community disorders / Hospital M79.89(ICD-10) Repository 10/15/2017 Active Cough / R05(ICD-10) NA Active [facility] Repository PROCEDURES PROCEDURES No Procedure Records FoundRESULTS RESULTS PROGRESS Observed: 10/06/2018 Status: COMPLETED Source: [place] 12:01 PM [facility] REPOSITORY HNO ID: [id number] Author: Giovanni Ovalle Service: (none) Author Type: Physician Type: Progress Notes Filed: 10/06/2018 12:30 PM Note Text: Radiation Oncology - On Treatment Review (OTR) Note PATIENT NAME: Cecile Vallejo PATIENT DIAGNOSIS: 1. Clinical stage I, T1cN0, non-small cell lung cancer (adenocarcinmoa). 2. history of stage III, T2N2, left breast adenocarcinoma (ER less than 2%, MS less than 2%) in 1996, s/p left modified radical mastectomy on 10/06/96 followed by 3 cycles of FAC and then radiation treatment to the left chest wall and lymphatics. 3. history of stage II, T1N1, right breast invasive ductal carcinoma (ER positive, MS negative and Her2/yoav positive) in 2003 treated with right breast lumpectomy and sentinel node biopsy, adjuvant chemotherapy and then radiation treatment to the right breast COURSE: definitive AREA TREATED: Left upper lobe lung. CURRENT DOSE: 2000 cGy in 2 fx PLANNED DOSE: 5000 cGy in 5 fx SUBJECTIVE: She is doing well without any specific new complaints related to radiation treatment. EXAM: KPS: 100 BP 138/86 Pulse 107 Temp 36.5 ?C (97.7 ?F) (Temporal Artery) Resp 20 Wt 79.6 kg (175 lb 8 oz) SpO2 94% BMI 32.62 kg/m? General Appearance: Alert and oriented. No acute distress. No radiation dermatitis. IMAGING/LAB RESULTS: None Treatment chart checked: Yes Patient treatment site reviewed and verified:Yes CBCTs reviewed and current:Yes Medications started: None ASSESSMENT/PLAN: Clinically stable. No signs of toxicity. Continue radiation treatment as planned. Giovanni Ovalle MD CNOV Observed: 10/06/2018 Status: COMPLETED Source: [place] 12:00 PM [facility] REPOSITORY Office Visit (RADTWS) CECILE VALLEJO ([id number]) 1945 F Date Time Provider Department 10/06/18 12:00 PM GIOVANNI OVALLE During your visit today, we recorded the following information about you: Temperature Pulse Respiration Blood pressure 97.7 degrees 107/minute 20/minute 138/86 Weight 79.6 kg Bandar Miramontes, RN, RN 10/06/2018 12:04 PM Signed Radiation Therapy - Nursing Note (OTV) PATIENT NAME: Cecile Vallejo PATIENT October 06, 2018 [facility] FACILITY/LOCATION: [place] NURSING NOTE TYPE: CHEST Subjective Data No c/o Additional Data Do you want to see a Knife Machine Operator? No Status: Post-menopausal. Stress Scale: On a scale of 0 to 10, what number best describes how much distress you have experienced in the past week?(0 being no distress and 10 being extreme distress) 4 Social work notified: no Nursing Assessment Fatigue: increased fatigue over baseline but not altering normal activities Appetite: good Nutritional Intake: Regular oral intake. Weight Gain/Loss: No Ambulatory weight history: Last 6 Encounter Wt Readings: Date: Wt: 10/06/2018 79.6 kg (175 lb 8 oz) 07/17/2018 76.4 kg (168 lb 8 oz) 07/16/2018 76 kg (167 lb 8 oz) 06/27/2018 74.4 kg (164 lb) 06/24/2018 75.3 kg (166 lb) 06/18/2018 75.3 kg (166 lb) Nausea:None Vomiting: None Bowel Function: normal bowel movements Erythema/Hyperpigmentation:none Desquamation:none Rash:none Skin Care: Aquaphor Skin Sensation: mild itching Focused Assessment CHEST: Dysphagia: No. Pain with swallowing: No. Shortness of breath: On Exertion. Cough: Moderate. SIGNED by: NANDA Hernandez MD 10/06/2018 12:30 PM Signed Radiation Oncology - On Treatment Review (OTR) Note PATIENT NAME: Cecile Vallejo PATIENT DIAGNOSIS: 1. Clinical stage I, T1cN0, non-small cell lung cancer (adenocarcinmoa). 2. history of stage III, T2N2, left breast adenocarcinoma (ER less than 2%, MS less than 2%) in 1996, s/p left modified radical mastectomy on 10/06/96 followed by 3 cycles of FAC and then radiation treatment to the left chest wall and lymphatics. 3. history of stage II, T1N1, right breast invasive ductal carcinoma (ER positive, MS negative and Her2/yoav positive) in 2003 treated with right breast lumpectomy and sentinel node biopsy, adjuvant chemotherapy and then radiation treatment to the right breast COURSE: definitive AREA TREATED: Left upper lobe lung. CURRENT DOSE: 2000 cGy in 2 fx PLANNED DOSE: 5000 cGy in 5 fx SUBJECTIVE: She is doing well without any specific new complaints related to radiation treatment. EXAM: KPS: 100 BP 138/86 Pulse 107 Temp 36.5 ?C (97.7 ?F) (Temporal Artery) Resp 20 Wt 79.6 kg (175 lb 8 oz) SpO2 94% BMI 32.62 kg/m? General Appearance: Alert and oriented. No acute distress. No radiation dermatitis. IMAGING/LAB RESULTS: None Treatment chart checked: Yes Patient treatment site reviewed and verified:Yes CBCTs reviewed and current:Yes Medications started: None ASSESSMENT/PLAN: Clinically stable. No signs of toxicity. Continue radiation treatment as planned. Giovanni Ovalle MD Allergies As of Date: 10/06/2018 Noted Allergy Reaction SULFA (SULFONAMIDE ANTIBIOTICS) 08/08/2005 2 - Rash Comments: SOME SULFA DRUGS Specifically reacted to topical sulfa cream, pt stated. CODEINE 03/05/2008 Comments: Severe headaches COMBIVENT (IPRATROPIUM-ALBUTEROL) 08/25/2012 7 - Swelling DOXYCYCLINE 08/08/2005 5 - Intolerance Comments: Stomach pains..it makes me double over, pt stated. DULERA (MOMETASONE-FORMOTEROL) 09/03/2012 5 - Intolerance Comments: tachycardia GABAPENTIN 06/16/2014 14 - Other: See Comments Comments: Loss of balance HCTZ (AMILORIDE-HYDROCHLOROTHIAZI*01/19/2009 Comments: blurry vision, fatigue IODINE 08/08/2005 MERCUROCHROME (MERBROMIN) 08/08/2005 5 - Intolerance Comments: Wound becomes infected, inflamed AND hyper- reactionary, pt stated. MERTHIOLATE [Other] 08/08/2005 METOPROLOL 07/17/2013 3 - Cough PREDNISONE 01/19/2009 Comments: messed up stomach patient states is able to take in small divided doses QVAR (BECLOMETHASONE) 03/08/2016 14 - Other: See Comments Comments: Reports coughing, headache, dizziness, nausea, wheezing. TAMIFLU (OSELTAMIVIR) 12/30/2017 5 - Intolerance Comments: Reported abdominal pain, changes in breathing, and severe dry mouth tape [Other] 03/28/2006 2 - Rash ADVIL (IBUPROFEN) 08/08/2005 5 - Intolerance Comments: severe headache Date Reviewed: 10/06/2018 Reviewed by: Bandar LópezRn) NANDA Miramontes - Fully Assessed Reason for Visit: Radiotherapy On-treatment Visit [1722] Primary Visit Diagnosis:Cancer of upper lobe of left lung (HCC) [C34.12] Prescriptions as of 10/06/2018 Sig: ACETAMINOPHEN 500 MG TABLET Take one(1) tablet every four* ALBUTEROL SULFATE HFA 90 MCG/* Inhale 2 Puffs as instructed * VITAMIN B COMPLEX ER TABLET,E* Take 1 tablet by mouth once d* CARVEDILOL 25 MG TABLET Take 25 mg by mouth twice lynda* EMOLLIENT COMBINATION NO.10 T* APPLY 1 APPLICATION TO AFFECT* FLUTICASONE 250 MCG-SALMETERO* Inhale 1 Puff as instructed t* FUROSEMIDE 40 MG TABLET Take 40 mg by mouth once yoli* QUINAPRIL 20 MG TABLET Take 1 tablet by mouth twice * RANITIDINE 75 MG TABLET Take 1 tablet by mouth twice * RIVAROXABAN 20 MG TABLET Take 1 tablet by mouth daily * TIOTROPIUM BROMIDE 2.5 MCG/AC* Inhale 2 Puffs as instructed * TRIAMCINOLONE ACETONIDE 0.025* Apply 1 application to affect* VITAMIN E 400 UNIT TABLET Take 1 tablet by mouth once d* CLINDAMYCIN HCL 150 MG CAPSULE Take 1 capsule by mouth four * Problem List As Of Date 10/06/2018 Noted Resolved Breast neoplasm [D49.3] More... Essential Hypertension, Benign [I10] INVALID FOR* Osteoarth NOS-Unspec [M19.90] INVALID FOR* Malig Yayo Lymph-Axilla/Arm [C77.3] INVALID FOR*07/10/2010 Sebaceous Cyst [L72.3] INVALID FOR*07/10/2010 Unspecified Pleural Effusion [J90] INVALID FOR*07/10/2010 SCREEN (SEE ALSO ADMISSION) CANCER - COLON [Z*INVALID FOR*07/10/2010 Emphysema of lung (HCC) [J43.9] INVALID FOR* Tobacco Use Disorder [F17.200] INVALID FOR* POLYP COLON [D12.6] INVALID FOR* More... DIVERTICULOSIS [K57.30] INVALID FOR*02/01/2017 Routine general medical examination at a [facility]*INVALID FOR*08/01/2012 Class: Chronic More... Routine gynecological examination [Z01.419] INVALID FOR*08/01/2012 Class: Chronic More... RIB LESION, UNCERTAIN BEHAVIOR [M99.9] INVALID FOR*08/14/2016 More... Mixed Hyperlipidemia [E78.2] INVALID FOR* Back pain [M54.9] INVALID FOR* Personal history of breast cancer [Z85.3] INVALID FOR* COPD (chronic obstructive pulmonary disease) (H* 08/14/2016 Lumbar radiculopathy [M54.16] INVALID FOR* DDD (degenerative disc disease), lumbar [M51.36]INVALID FOR* Lumbar scoliosis [M41.9] INVALID FOR* Persistent atrial fibrillation (HCC) [I48.1] INVALID FOR* More... Mass of upper lobe of lung [R91.8] INVALID FOR*06/18/2018 More... Acute systolic CHF (congestive heart failure) (*INVALID FOR* More... Cancer of upper lobe of left lung (HCC) [C34.12]INVALID FOR* Visit Notes: >> Bandar (Nanda) NANDA Miramontes SatOct 06, 2018 11:59 AM Status: Signed Radiation Therapy - Nursing Note (OTV) PATIENT NAME: Cecile Vallejo PATIENT October 06, 2018 [facility] FACILITY/LOCATION: [facility] NOTE TYPE: CHEST Subjective Data No c/o Additional Data Do you want to see a Knife Machine Operator? No Status: Post-menopausal. Stress Scale: On a scale of 0 to 10, what number best describes how much distress you have experienced in the past week?(0 being no distress and 10 being extreme distress) 4 Social work notified: no Nursing Assessment Fatigue: increased fatigue over baseline but not altering normal activities Appetite: good Nutritional Intake: Regular oral intake. Weight Gain/Loss: No Ambulatory weight history: Last 6 Encounter Wt Readings: Date: Wt: 10/06/2018 79.6 kg (175 lb 8 oz) 07/17/2018 76.4 kg (168 lb 8 oz) 07/16/2018 76 kg (167 lb 8 oz) 06/27/2018 74.4 kg (164 lb) 06/24/2018 75.3 kg (166 lb) 06/18/2018 75.3 kg (166 lb) Nausea:None Vomiting: None Bowel Function: normal bowel movements Erythema/Hyperpigmentation:none Desquamation:none Rash:none Skin Care: Aquaphor Skin Sensation: mild itching Focused Assessment CHEST: Dysphagia: No. Pain with swallowing: No. Shortness of breath: On Exertion. Cough: Moderate. SIGNED by: Bandar Miramontes RN Encounter Status:Closed by GIOVANNI OVALLE MD on 10/06/18 PROGRESS Observed: 10/03/2018 Status: COMPLETED Source: [place] 1:47 PM [facility] REPOSITORY HNO ID: [id number] Author: Giovanni Ovalle Service: (none) Author Type: Physician Type: Progress Notes Filed: 10/03/2018 2:01 PM Note Text: Radiation Oncology - On Treatment Review (OTR) Note PATIENT NAME: Cecile Vallejo PATIENT DIAGNOSIS: 1. Clinical stage I, T1cN0, non-small cell lung cancer (adenocarcinmoa). 2. history of stage III, T2N2, left breast adenocarcinoma (ER less than 2%, MS less than 2%) in 1996, s/p left modified radical mastectomy on 12/17/96 followed by 3 cycles of FAC and then radiation treatment to the left chest wall and lymphatics. 3. history of stage II, T1N1, right breast invasive ductal carcinoma (ER positive, MS negative and Her2/yoav positive) in 2004 treated with right breast lumpectomy and sentinel node biopsy, adjuvant chemotherapy and then radiation treatment to the right breast COURSE: definitive AREA TREATED: Left upper lobe lung. CURRENT DOSE: 1000 cGy in 1 fx PLANNED DOSE: 5000 cGy in 5 fx SUBJECTIVE: She is doing well without any specific new complaints related to radiation treatment. EXAM: KPS: 100 BP 142/90 Pulse 99 Temp 36.7 ?C (98 ?F) (Temporal Artery) Resp 20 SpO2 91% General Appearance: Alert and oriented. No acute distress. IMAGING/LAB RESULTS: None Treatment chart checked: Yes Patient treatment site reviewed and verified:Yes CBCTs reviewed and current:Yes Medications started: None ASSESSMENT/PLAN: Clinically stable. No signs of toxicity. Continue radiation treatment as planned. Giovanni Ovalle MD CNOV Observed: 10/03/2018 Status: COMPLETED Source: [place] 1:15 PM [facility] REPOSITORY Office Visit (RADTWS) CECILE VALLEJO ([id number]) 1945 F Date Time Provider Department 10/03/18 1:15 PM GIOVANNI OVALLE [facility]PoliWS During your visit today, we recorded the following information about you: Temperature Pulse Respiration Blood pressure 98 degrees 99/minute 20/minute 142/90 Bandar Miramontes, RN, RN 10/03/2018 1:45 PM Signed Radiation Therapy - Nursing Note (OTV) PATIENT NAME: Cecile Vallejo PATIENT October 03, 2018 [facility] FACILITY/LOCATION: [place] NURSING NOTE TYPE: CHEST Subjective Data No c/o Additional Data Do you want to see a Knife Machine Operator? No Status: Post-menopausal. Stress Scale: On a scale of 0 to 10, what number best describes how much distress you have experienced in the past week?(0 being no distress and 10 being extreme distress) 4 Social work notified: no Nursing Assessment Fatigue: increased fatigue over baseline but not altering normal activities Appetite: fair Nutritional Intake: Regular oral intake. Weight Gain/Loss: No Ambulatory weight history: Last 6 Encounter Wt Readings: Date: Wt: 07/17/2018 76.4 kg (168 lb 8 oz) 07/16/2018 76 kg (167 lb 8 oz) 06/27/2018 74.4 kg (164 lb) 06/24/2018 75.3 kg (166 lb) 06/18/2018 75.3 kg (166 lb) 04/28/2018 79.6 kg (175 lb 8 oz) Nausea:None Vomiting: None Bowel Function: normal bowel movements Erythema/Hyperpigmentation:none Desquamation:none Rash:none Skin Care: Aquaphor Skin Sensation: Within Normal Limits Focused Assessment CHEST: Dysphagia: No. Pain with swallowing: No. Shortness of breath: On Exertion. Cough: Mild. SIGNED by: NANDA Hernandez MD 10/03/2018 2:01 PM Signed Radiation Oncology - On Treatment Review (OTR) Note PATIENT NAME: Cecile Vallejo PATIENT DIAGNOSIS: 1. Clinical stage I, T1cN0, non-small cell lung cancer (adenocarcinmoa). 2. history of stage III, T2N2, left breast adenocarcinoma (ER less than 2%, MS less than 2%) in 1996, s/p left modified radical mastectomy on 10/06/96 followed by 3 cycles of FAC and then radiation treatment to the left chest wall and lymphatics. 3. history of stage II, T1N1, right breast invasive ductal carcinoma (ER positive, MS negative and Her2/yoav positive) in 2003 treated with right breast lumpectomy and sentinel node biopsy, adjuvant chemotherapy and then radiation treatment to the right breast COURSE: definitive AREA TREATED: Left upper lobe lung. CURRENT DOSE: 1000 cGy in 1 fx PLANNED DOSE: 5000 cGy in 5 fx SUBJECTIVE: She is doing well without any specific new complaints related to radiation treatment. EXAM: KPS: 100 BP 142/90 Pulse 99 Temp 36.7 ?C (98 ?F) (Temporal Artery) Resp 20 SpO2 91% General Appearance: Alert and oriented. No acute distress. IMAGING/LAB RESULTS: None Treatment chart checked: Yes Patient treatment site reviewed and verified:Yes CBCTs reviewed and current:Yes Medications started: None ASSESSMENT/PLAN: Clinically stable. No signs of toxicity. Continue radiation treatment as planned. Giovanni Ovalle MD Allergies As of Date: 10/03/2018 Noted Allergy Reaction SULFA (SULFONAMIDE ANTIBIOTICS) 08/08/2005 2 - Rash Comments: SOME SULFA DRUGS Specifically reacted to topical sulfa cream, pt stated. CODEINE 03/05/2008 Comments: Severe headaches COMBIVENT (IPRATROPIUM-ALBUTEROL) 08/25/2012 7 - Swelling DOXYCYCLINE 08/08/2005 5 - Intolerance Comments: Stomach pains..it makes me double over, pt stated. DULERA (MOMETASONE-FORMOTEROL) 09/03/2012 5 - Intolerance Comments: tachycardia GABAPENTIN 06/16/2014 14 - Other: See Comments Comments: Loss of balance HCTZ (AMILORIDE-HYDROCHLOROTHIAZI*01/19/2009 Comments: blurry vision, fatigue IODINE 08/08/2005 MERCUROCHROME (MERBROMIN) 08/08/2005 5 - Intolerance Comments: Wound becomes infected, inflamed AND hyper- reactionary, pt stated. MERTHIOLATE [Other] 08/08/2005 METOPROLOL 07/17/2013 3 - Cough PREDNISONE 01/19/2009 Comments: messed up stomach patient states is able to take in small divided doses QVAR (BECLOMETHASONE) 03/08/2016 14 - Other: See Comments Comments: Reports coughing, headache, dizziness, nausea, wheezing. TAMIFLU (OSELTAMIVIR) 12/30/2017 5 - Intolerance Comments: Reported abdominal pain, changes in breathing, and severe dry mouth tape [Other] 03/28/2006 2 - Rash ADVIL (IBUPROFEN) 08/08/2005 5 - Intolerance Comments: severe headache Date Reviewed: 10/03/2018 Reviewed by: Bandar (Rn) NANDA Miramontes - Fully Assessed Reason for Visit: Radiotherapy On-treatment Visit [1722] Primary Visit Diagnosis:Cancer of upper lobe of left lung (HCC) [C34.12] Prescriptions as of 10/03/2018 Sig: ACETAMINOPHEN 500 MG TABLET Take one(1) tablet every four* ALBUTEROL SULFATE HFA 90 MCG/* Inhale 2 Puffs as instructed * VITAMIN B COMPLEX ER TABLET,E* Take 1 tablet by mouth once d* CARVEDILOL 25 MG TABLET Take 25 mg by mouth twice lynda* EMOLLIENT COMBINATION NO.10 T* APPLY 1 APPLICATION TO AFFECT* FLUTICASONE 250 MCG-SALMETERO* Inhale 1 Puff as instructed t* FUROSEMIDE 40 MG TABLET Take 40 mg by mouth once yoli* QUINAPRIL 20 MG TABLET Take 1 tablet by mouth twice * RANITIDINE 75 MG TABLET Take 1 tablet by mouth twice * RIVAROXABAN 20 MG TABLET Take 1 tablet by mouth daily * TIOTROPIUM BROMIDE 2.5 MCG/AC* Inhale 2 Puffs as instructed * TRIAMCINOLONE ACETONIDE 0.025* Apply 1 application to affect* VITAMIN E 400 UNIT TABLET Take 1 tablet by mouth once d* CLINDAMYCIN HCL 150 MG CAPSULE Take 1 capsule by mouth four * Problem List As Of Date 10/03/2018 Noted Resolved Breast neoplasm [D49.3] More... Essential Hypertension, Benign [I10] INVALID FOR* Osteoarth NOS-Unspec [M19.90] INVALID FOR* Malig Yayo Lymph-Axilla/Arm [C77.3] INVALID FOR*07/10/2010 Sebaceous Cyst [L72.3] INVALID FOR*07/10/2010 Unspecified Pleural Effusion [J90] INVALID FOR*07/10/2010 SCREEN (SEE ALSO ADMISSION) CANCER - COLON [Z*INVALID FOR*07/10/2010 Emphysema of lung (HCC) [J43.9] INVALID FOR* Tobacco Use Disorder [F17.200] INVALID FOR* POLYP COLON [D12.6] INVALID FOR* More... DIVERTICULOSIS [K57.30] INVALID FOR*02/01/2017 Routine general medical examination at a health*INVALID FOR*08/01/2012 Class: Chronic More... Routine gynecological examination [Z01.419] INVALID FOR*08/01/2012 Class: Chronic More... RIB LESION, UNCERTAIN BEHAVIOR [M99.9] INVALID FOR*08/14/2016 More... Mixed Hyperlipidemia [E78.2] INVALID FOR* Back pain [M54.9] INVALID FOR* Personal history of breast cancer [Z85.3] INVALID FOR* COPD (chronic obstructive pulmonary disease) (H* 08/14/2016 Lumbar radiculopathy [M54.16] INVALID FOR* DDD (degenerative disc disease), lumbar [M51.36]INVALID FOR* Lumbar scoliosis [M41.9] INVALID FOR* Persistent atrial fibrillation (HCC) [I48.1] INVALID FOR* More... Mass of upper lobe of lung [R91.8] INVALID FOR*06/18/2018 More... Acute systolic CHF (congestive heart failure) (*INVALID FOR* More... Cancer of upper lobe of left lung (HCC) [C34.12]INVALID FOR* Visit Notes: >> Bandar (Nanda) NANDA Miramontes SatOct 03, 2018 1:43 PM Status: Signed Radiation Therapy - Nursing Note (OTV) PATIENT NAME: Cecile Vallejo PATIENT October 03, 2018 [facility] FACILITY/LOCATION: [place] NURSING NOTE TYPE: CHEST Subjective Data No c/o Additional Data Do you want to see a Knife Machine Operator? No Status: Post-menopausal. Stress Scale: On a scale of 0 to 10, what number best describes how much distress you have experienced in the past week?(0 being no distress and 10 being extreme distress) 4 Social work notified: no Nursing Assessment Fatigue: increased fatigue over baseline but not altering normal activities Appetite: fair Nutritional Intake: Regular oral intake. Weight Gain/Loss: No Ambulatory weight history: Last 6 Encounter Wt Readings: Date: Wt: 07/17/2018 76.4 kg (168 lb 8 oz) 07/16/2018 76 kg (167 lb 8 oz) 06/27/2018 74.4 kg (164 lb) 06/24/2018 75.3 kg (166 lb) 06/18/2018 75.3 kg (166 lb) 04/28/2018 79.6 kg (175 lb 8 oz) Nausea:None Vomiting: None Bowel Function: normal bowel movements Erythema/Hyperpigmentation:none Desquamation:none Rash:none Skin Care: Aquaphor Skin Sensation: Within Normal Limits Focused Assessment CHEST: Dysphagia: No. Pain with swallowing: No. Shortness of breath: On Exertion. Cough: Mild. SIGNED by: Bandar Miramontes RN Encounter Status:Closed by GIOVANNI OVALLE MD on 10/03/18 CHEST INSP/EXP 2 VIEW Observed: 09/16/2018 Status: F Source: [place] 12:58 PM [facility] REPOSITORY [facility] Imaging Services [address] [place] [id number] Chest Insp/Exp 2 View MR#: [id number] Acct: [id number] Name: CECILE VALLEJO Rep #: [id number] : 1945 F 72 From: Vishal Ruiz DO PCP: Juan Mcdaniel MD Status: REG CLI Study: Chest Insp/Exp 2 View Date of Exam: 09/16/18 Exam# [id number] Ordering Dr: Kenneth Salinas MD STUDY: X-RAY CHEST REASON FOR EXAM: Female, 72 years old. Post thoracentesis TECHNIQUE: 2 AP portable view of the chest. Inspiration and expiration views COMPARISON: 05/09/2018 FINDINGS: There is hyperinflation of the lungs consistent with chronic obstructive lung disease (COPD). Right and left pleural effusion is noted. No evidence of pneumothorax. Again noted is left midlung field mass. There is mild cardiac enlargement. Normal mediastinum and mike. Normal visualized pulmonary arteries. There is atherosclerotic tortuosity of the aortic arch and descending thoracic aorta. There is a dextroscoliosis of the thoracic spine. Normal visualized ribs, clavicles, and shoulders. There is no demonstrated abnormality of the visualized soft tissue structures of the upper abdomen. RAD/Chest Insp/Exp 2 View IMPRESSION: No evidence of pneumothorax. Small bilateral pleural effusions. COPD. Left midlung field mass Electronically Signed: Vishal Ruiz DO at 11:41 EST Tel , Service support , CC: Kenneth Salinas MD; Juan Mcdaniel MD [employer] Consultant: Signed PROTEIN, BODY FLUID Collected: 09/16/2018 Status: F Source: [place] 12:30 PM [facility] REPOSITORY Order Comment: Specimen Source: PLEURAL FLUID TYPE CODE TESTS RESULT OUT OF RANGE REFERENCE UNITS LAB L503.0300 Not Establ. g/dL Normal 2.7 PROTEIN,BF Performed By: #### L503.0300, L504.0250 #### [facility] [address] [place], [address] LDH,BODY FLUID Collected: 09/16/2018 Status: F Source: [place] 12:30 PM [facility] REPOSITORY Order Comment: Specimen Source: PLEURAL FLUID TYPE CODE TESTS RESULT OUT OF RANGE REFERENCE UNITS LAB L504.0250 Not Establ. Units/l Normal LDH,BF 72 Performed By: #### L503.0300, L504.0250 #### [facility] [address] [place], [address] CYTOLOGY, BODY FLUID / Collected: 09/16/2018 Status: F Source: [place] CSF 12:30 PM [facility] REPOSITORY Order Comment: Specimen Source: PLEURAL FLUID TYPE CODE TESTS RESULT OUT OF RANGE REFERENCE UNITS LAB L350.1000 SEE Normal PATHOLOGY CYTOLOGY,BF REPORT /CSF Result Comment: Specimen submitted to Anatomical Pathology Department for testing. Performed By: #### L350.1000 #### [facility] [address] [place], [address] MISCELLANEOUS LAB Collected: 09/16/2018 Status: F Source: [place] PROCEDURE 12:30 PM [facility] REPOSITORY Order Comment: Comments: [id number] ALBUMIN BODY FLUID Test(s) Ordered: [id number] ALBUMIN BODY FLUID TYPE CODE TESTS RESULT OUT OF RANGE REFERENCE UNITS LAB L801.1541 Normal MISC LAB TEST Result Comment: TEST RESULT LIMITS Albumin, Body Fluid 2.1 g/dL : Peritoneal : Pleural : Synovial : : : : : : : Transudate : Exudate : : : : : : : : Not Estab. : Not Estab. : Not Estab.: Not Estab. : : : : : : The method performance specifications have not been established for this test in body fluid. The test result should be integrated into the clinical context for interpretation. The reference intervals and other method performance specifications have not been established for this test. The test result should be integrated into the clinical context for interpretation. TESTING PERFORMED AT [facility]. ORIGINAL REPORT ON FILE IN LAB CONTAINS ADDITIONAL TEST SITE INFORMATION. Performed By: #### L801.1541 #### [facility] [address] [place], [address] THORACENTESIS W US Observed: 09/16/2018 Status: F Source: [place] 11:37 AM [facility] REPOSITORY [facility] Imaging Services [address] [place] [address] Thoracentesis W US MR#: [id number] Acct: [id number] Name: CECILE VALLEJO Rep #: [id number] : 1945 F 72 From: Kenneth Salinas MD PCP: Juan Mcdaniel MD Status: REG CLI Study: Thoracentesis W US Date of Exam: 09/16/18 Exam# [id number] Ordering Dr: Apolinar Cazares DO PROCEDURE: ULTRASOUND GUIDED THORACENTESIS. DATE: September 16, 2018. INDICATION: Female, 72 years old. Right pleural effusion. PHYSICIAN: Kenneth Salinas M.D. PROCEDURE: The risks, benefits, and alternatives to the procedure were explained to the patient. The specific risks of bleeding, infection, and pneumothorax requiring chest tube insertion were discussed and accepted. Written informed consent was obtained. Ultrasonographic evaluation of the right lower pleural space was carried out. An adequate pocket was identified. The patient was placed in the sitting, upright position. The overlying skin was prepped and draped in sterile fashion. 1% lidocaine was administered subcutaneously for local anesthesia. Under ultrasound guidance, a 5 Bengali thoracentesis needle/catheter system was advanced into the right posterior lower pleural fluid collection. Approximately 220 mL of blood-tinged fluid fluid was drained. The catheter was removed, and a sterile dressing was applied. A specimen was collected and sent to the laboratory for analysis, as requested by the referring clinician. The patient tolerated the procedure well. A chest x-ray was ordered. US/Thoracentesis W US IMPRESSION: Ultrasound-guided right thoracentesis. Electronically Signed: Kenneth Salinas MD at 14:01 EST Tel [phone], Service support , CC: Apolinar Mcdaniel MD [employer] Consultant: Signed COMPREHENSIVE METABOLIC Collected: 09/16/2018 Status: F Source: [place] PROFIL 11:22 AM [facility] REPOSITORY Order Comment: Serial Specimen #1, #2 or #3? 1 TYPE CODE TESTS RESULT OUT OF RANGE REFERENCE UNITS LAB L501.0100 74-106 mg/dL High GLU 111 Result Comment: Fasting Glucose result from 100 to 125 mg/dL suggests IMPAIRED HOMEOSTASIS per A.D.A. criteria. Please note revised GLUCOSE reference range effective 2017. LAB L501.1000 7-18 mg/dL Low BUN 5 LAB L501.1100 0.55-1.02 mg/dL Normal CREAT,SERUM 0.57 Result Comment: The validity of the calculated GFR AND GFRAA in patients over 70 years has not been determined. Clinical correlation is essential. LAB L501.1110 >60 mL/min Normal EST GFR 110 Result Comment: Non- GFR Calc LAB L501.1115 >60 mL/min Normal EST GFR - AA 134 Result Comment: GFR Calc LAB L501.1300 10-20 RATIO Low BUN/CRE 8.7 LAB L501.1500 6.4-8.2 g/dL Normal T PROT 7.0 LAB L501.1800 3.2-5.0 g/dL Normal ALB 3.7 LAB L501.1950 2.2-4.2 g/dL Normal GLOB 3.3 LAB L501.2000 0.9-2.4 RATIO Normal A/G 1.1 LAB L501.2200 8.5-10.1 mg/dL Normal CA 9.2 LAB L501.4100 15-37 U/L Normal AST 29 LAB L501.4305 45-117 U/L High ALK P 154 LAB L501.4405 13-56 U/L Normal ALT 31 LAB L501.4600 0.20-1.00 mg/dL High T BILI 1.80 LAB L501.5300 136-145 mmol/L Low NA 134 LAB L501.5600 3.5-5.1 mmol/L Low K 3.4 LAB L501.5900 98-107 mmol/L Normal CL 98 LAB L501.6100 21.0-32.0 mmol/L Normal CO2 31.0 LAB L501.6200 5-15 Normal GAP 5 Performed By: #### L500.4050, L504.2610 #### [facility] [address] [address] [facility] [place], [place], [address] LDH Collected: 09/16/2018 Status: F Source: [place] 11:22 AM [facility] REPOSITORY Order Comment: Serial Specimen #1, #2 or #3? 1 TYPE CODE TESTS RESULT OUT OF RANGE REFERENCE UNITS LAB L504.2610 84-246 U/L Normal LDH 165 Performed By: #### L500.4050, L504.2610 #### [facility] [address] [place], [address] PROTHROMBIN TIME W/INR Collected: 09/16/2018 Status: F Source: [place] 11:21 AM [facility] REPOSITORY TYPE CODE TESTS RESULT OUT OF RANGE REFERENCE UNITS LAB L300.4150 11.7-14.9 SECONDS Normal PROTIME 14.7 LAB L300.4200 Normal INR 1.2 Performed By: #### L300.3900, L300.4310 #### [facility] [address] [place], [address] PARTIAL THROMBOPLAST Collected: 09/16/2018 Status: F Source: [place] TIME 11:21 AM [facility] REPOSITORY TYPE CODE TESTS RESULT OUT OF RANGE REFERENCE UNITS LAB L300.4310 24.1-36.2 Seconds Normal PTT 28.6 Performed By: #### L300.3900, L300.4310 #### [facility] [address] [place], [address] FLUID/WASHING Observed: 09/16/2018 Status: F Source: [place] 12:00 AM [facility] REPOSITORY Patient: CECILE VALLEJO : 1945 (72/F) Acct Num: [id number] Phys: Apolinar Cazares DO Unit Num: [id number] Loc: Specimen: [id number] Received: 09/16/18 - 1413 Spec Type: Fluid TISSUES 1 TISSUES: THORACIC FLUID COMMENT Clinical correlation and appropriate follow up are necessary. Please make reference to previous specimen ([id number]), left breast, modified radical mastectomy with diagnosis of invasive ductal carcinoma, ([id number]) right breast, lumpectomy with diagnosis of infiltrating moderately differentiated ductal carcinoma, (D13-3074 and N24-8560) left lung, CT-guided core biopsy with diagnosis of non-small cell carcinoma, adenocarcinoma. CYTOLOGY GROSS Received is 95 ml of cloudy red fluid labeled with the patient's name and and designated per the requisition as thoracentesis. Submitted for cytology preparation including cell block. / 09/16/18 TC:5 CPT: 06351, 88374 CYTOLOGY STUDY Slides are reviewed. The specimen consists of macrophages, mesothelial cells and inflammatory cells. DIAGNOSIS CYTOLOGY Thoracentesis fluid for cytology (cytospin and cell block): Negative for malignant cells. See cytology study and comment. SJ:jayden 09/17/18 HEADER OPERATION: Ultrasound-guided right thoracentesis PRE-OP DIAGNOSIS: Right pleural effusion TISSUE SUBMITTED: Thoracentesis fluid for cytology Signed Pasha Trejo 09/17/18 <signature on file> Performed By: #### PFLU #### [facility] [address] [place], [place], [address] PULMONARY VISIT REPORT Observed: 09/03/2018 Status: F Source: [place] 1:26 PM [facility] REPOSITORY [facility] [place] [address] [place], [place] [address] OFFICE VISIT Date of Service: 09/03/18 MR#: [id number] Acct: [id number] Name: CECILE VALLEJO Rep #: [id number] : 1945 Provider: Mark Campos D.O. Age/Sex: 72/F Location: [facility] Status: Signed Assessment AND Plan 1. Chronic obstructive pulmonary disease, unspecified COPD type J44.9 Plan The patient has known severe COPD and is currently on a triple therapy inhaler regimen. The patient is concerned about the cost of her Spiriva. We did look into potential patient assistance programs. However, I have recommended that the patient be given a trial of Trelegy, which would consolidate her inhaler regimen down to 1 maintenance inhaler. The patient is going to look into the cost at the pharmacy. The patient was provided with samples today. If the medication proves to be too expensive for the patient does not respond favorably to its use, she will be transitioned back to her prior inhaler regimen. 2. Non-small cell lung cancer C34.90 Plan The patient is currently following with Dr. Cazares at [facility] with plans for upcoming SBRT. 3. Nicotine dependence, cigarettes, uncomplicated F17.210 Plan The patient was once again counseled regarding the deleterious effects of ongoing tobacco use, including modalities which could be utilized to achieve a smoke-free lifestyle. Plan Detail Other Medications New: ircgcnwfvqt-tkrkwfbhh-jyskmwum 100-62.5-25 mcg (Trele1 inh Inhalation DAILY 1 device 6RF gy Ellipta) Follow Up 3 Months (CSM) HPI HPI Comments Details: The patient is a 72-year-old female who presents to the clinic today for a routine scheduled follow-up office visit. The patient was recently admitted to the hospital December 30 with decompensated diastolic heart failure, new onset atrial fibrillation and suspected COPD. A CTA chest was completed during that hospitalization was negative for the presence of pulmonary embolism. However, there was note of a new spiculated masslike lesion in left upper lobe measuring 2.9 x 1.9 cm. Surface echocardiogram revealed an ejection fraction of 60% with an RVSP which was estimated to be 43 mmHg. Pulmonary function testing completed January 31, 2018 revealed the presence of an irreversible very severe large airways obstructive ventilatory defect with associated air trapping and reduction in diffusing capacity. A 6 minute walk test was also completed at that time and revealed evidence of impaired walk distance without the need for supplemental oxygen with exertion. A PET scan, ordered by Dr. Cazares, and completed on February 03 revealed increased glucose uptake in the left upper lobe that fulfilled quantitative criteria for viable neoplasm. Therefore, the patient was referred to undergo a CT-guided lung biopsy, which was completed in March 2018. Pathology revealed malignant cells consistent with non-small cell carcinoma, adenocarcinoma. Following a discussion with the patient's oncologist, Dr. Cazares, the patient was referred to thoracic surgery, Dr. Nunez at [facility]. However, following evaluation, she was not deemed to be appropriate for surgical resection due to the severity of her underlying obstructive lung disease. The patient is now going to be prepped to undergo SBRT under the direction of Dr. Ovalle. Unfortunately, the patient continues to smoke 0.25 packs of cigarettes daily. She states that she is scheduled to undergo a thoracentesis tomorrow due to the presence of pleural effusions, prior to proceeding with radiation therapy. Her weight has remained stable. She denies fevers, chills or night sweats. Intake Vital Signs09/03/18 Height 5 ft 4 in 09/03/18 Weight: 170 lb Intake Visit Reasons: 3 M FU Accompanied by: Allergies albuterol sulfate [From Combivent] Allergy (Verified 09/03/18 11:11) Swelling ipratropium bromide [From Combivent] Allergy (Verified 09/03/18 11:11) Swelling metoprolol Allergy (Verified 09/03/18 11:11) Laryngospasms Sulfa (Sulfonamide Antibiotics) Allergy (Verified 09/03/18 11:11) Rash beclomethasone [From Qvar] Adverse Reaction (Verified 09/03/18 11:11) COUGHING benzalkonium chloride [From Merthiolate (benzalkonium)] Adverse Reaction (Verified 09/03/18 11:11) Other codeine Adverse Reaction (Verified 09/03/18 11:11) doesn't remember doxycycline Adverse Reaction (Verified 09/03/18 11:11) Abd cramps/diarrhea formoterol fumarate [From Dulera] Adverse Reaction (Verified 09/03/18 11:11) Other hydrochlorothiazide Adverse Reaction (Verified 09/03/18 11:11) Other ibuprofen [From Advil] Adverse Reaction (Verified 09/03/18 11:11) Other iodine Adverse Reaction (Verified 09/03/18 11:11) Itching merbromin Adverse Reaction (Verified 09/03/18 11:11) Other mometasone furoate [From Dulera] Adverse Reaction (Verified 09/03/18 11:11) Other oseltamivir [From Tamiflu] Adverse Reaction (Verified 09/03/18 11:11) uterine pain prednisone Adverse Reaction (Verified 09/03/18 11:11) Abd cramps/diarrhea PLASTIC TAPE Allergy (Uncoded 09/03/18 11:11) Rash Medications Fluticasone/Salmeterol [Advair 250/50 Mcg Diskus] 1 puff INHALATION BID 04/11/15 [History Confirmed 09/03/18] Quinapril HCl [Accupril] 20 mg PO BID 04/11/15 [History Confirmed 09/03/18] Acetaminophen [Tylenol] 500 mg PO Q4H PRN PRN 10/16/16 [History Confirmed 09/03/18] Albuterol Inhaler [Ventolin Hfa] 1 - 2 puff INHALATION Q4H PRN PRN 10/16/16 [History Confirmed 09/03/18] Multivitamins,Therapeutic [Multivitamin] 1 tab PO DAILY 10/16/16 [History Confirmed 09/03/18] Vitamin B Complex 1 ea PO DAILY 10/16/16 [History Confirmed 09/03/18] Vitamin E 400 unit PO DAILY 10/16/16 [History Confirmed 09/03/18] carvedilol 25 mg tablet 25 mg PO BID #180 tab 01/20/18 [Rx Confirmed 09/03/18] furosemide 40 mg tablet 40 mg PO DAILY #90 tab 01/20/18 [Rx Confirmed 09/03/18] rivaroxaban 20 mg tablet 20 mg PO DINNER #90 tab 01/20/18 [Rx Confirmed 09/03/18] tiotropium bromide 2.5 mcg/actuation mist for inhalation 2 puff INHALATION QDAY #1 device 03/04/18 [Rx Confirmed 09/03/18] Emollient Combination No.10 [Prutect] 45 gm TP 04/16/18 [History Confirmed 09/03/18] Triamcinolone 0.025% Cream [Kenalog] 1 applic TOPICAL BID 04/16/18 [History Confirmed 09/03/18] fluticasone 100 mcg-umeclid 62.5 mcg-vilant 25 mcg powd for inhalation 1 inh INHALATION DAILY #1 device 09/03/18 [Rx Confirmed 09/03/18] [facility] Medical History Nonrheumatic mitral (valve) insufficiency (Acute) Thrush, oral (Acute) Lung mass (Acute) Suspected chronic obstructive pulmonary disease based on initial evaluation (Chronic) Acute CHF (Acute) New onset A. fib with RVR (Acute) History of breast cancer (Chronic) COPD (chronic obstructive pulmonary disease) (Chronic) Hypertension (Chronic) Surgical History History of left mastectomy (Resolved) History of lumpectomy of right breast (Resolved) History of tubal ligation (Resolved) polyp removal (Resolved) Family History Father Emphysema of lung Sister Cancer uterine cancer Social History Smoking Status: Current every day smoker second hand exposure: Yes alcohol intake: current alcohol intake frequency: a few times a month Alcohol type: wine substance use type: does not use caffeine: No what type of physical activity do you participate in: none seatbelt use: always do you feel safe at home: Yes Review of Systems Const CONSTITUTIONAL: Negative anorexia, body ache, chills, daytime sleepiness, fever(s), night sweats, oral thrush, stops breathing during sleep, weight loss, sleeping in chair, fatigue, weight loss, weight gain, frequent colds, seasonal allergies, other, headache(s) or orthopnea EETM Ear Nose Throat Mouth: Positive hearing normal; negative hard of hearing, hoarseness, dry mouth in morning, change in vision, itchy eyes, eye pain, swallowing Difficulty, ear pain, nose bleed, headache(s), mouth pain, nasal congestion, nasal discharge, post nasal drip, sinus pain, sinus pressure, sore throat or other Cardio Cardiovascular: Negative chest pain, chest pain at rest, chest pain with activity, irregular heart rhythm, edema, shortness of breath when lying down, palpitations, murmur or other Resp Respiratory: Positive as per HPI and shortness of breath shortness of breath: Positive with activity; negative pain with cough, wheezing, chest congestion, cough, chest tightness, pain on inspiration, inhalers, increase use of rescue inhalers, snoring, apnea or other Gastro Gastrointestional: Negative bloody stools, change in appetite, difficulty swallowing, reflux, hematemesis, melena stool, loose stool, constipation or other Genitourinary: Negative blood in urine, nocturia, pain with urination or other Musc Musculoskeletal: Negative body pain, back pain, neck pain or other Skin/Breast Skin/Breast: Negative dry skin, itching, rash, unusual bruising, breast lump or other Neuro Neurological: Negative restless legs, confusion, weakness or other Psych Psychocological: Negative abnormal sleep pattern, anxiety, thoughts of hurting self/others, hopelessness or other Lymph Lymphatic: Negative easy bleeding, easy bruising, swollen lymph nodes or other Exam Const Constitutional: Positive conversant, cooperative, in no acute respiratory distress, well developed, well nourished and good hygiene Head Head: Positive normocephalic and atraumatic; negative cyanosis of lips/distal nose Eyes Eye: Positive clear conjunctiva; negative nystagmus or scleral abnormality Ears Ear: Positive hearing normal and external ears normal; negative hard of hearing Nose Nose: Positive external nose normal; negative epistaxis Mouth Mouth: Positive oral mucosae normal and posterior oropharynx is adequate; negative no lesions or post nasal drip Mallampati Score: II: Mallampati Score Neck Neck: Positive normal visual inspection and trachea midline; negative lymphadenopathy Chest Wall Chest: Positive symmetric chest movement Normal AP diameter. Resp lung sounds: Positive diminished diminished: Positive global and prolonged expiratory time; negative wheezes, rhonchi or rales Cardio Cardiac: Positive regular rate, regular rhythm, S1 normal and S2 normal; negative rub, gallop or murmur GI GI: Positive normal bowel sounds Soft without distention Genitourinary: Positive deferred Musc Musculoskeletal: Positive in a wheelchair Skin Pulmonary Skin Exam: Positive intact; negative lesion, ulcers, dermal atrophy or rash Pulses Pulse: Yes Pedal pulses present: Extremities Extremities: No clubbing, No cyanosis, No edema Neuro Neurologic: Yes conversant, Yes no focal neuro deficits, Yes cooperative Lymph Lymphatic: No lymphadenopathy Psych Appearance: Positive grossly normal Mental Status: Positive mental status grossly normal Mood: Positive congruent mood Affect: Positive normal affect Coding Level of Care Code Off vis,est,level 3 Diagnoses Chronic obstructive pulmonary disease, unspecified COPD type J44.9 COPD type: unspecified COPD Non-small cell lung cancer C34.90 Nicotine dependence, cigarettes, uncomplicated F17.210 09/03/18 1326 <Electronically signed by Mark Campos DO> Date Mark Campos DO Cosigner Signature: Date (if applicable) CC: Juan Mcdaniel MD [facility] CT NON-RADIOLOGY Observed: 08/28/2018 Status: F Source: [facility] 12:00 AM [facility] REPOSITORY [facility] - CT Images - Obtained Outside of Imaging In[place] [id number] PROGRESS Observed: 08/28/2018 Status: COMPLETED Source: [place] 12:00 AM [facility] [place] REPOSITORY HNO ID: [id number] Author: Giovanni Ovalle Service: (none) Author Type: Physician Type: Progress Notes Filed: 08/30/2018 12:34 AM Note Text: CECILE VALLEJO [id number] 08/28/2018 [facility] Department of Radiation Oncology [facility] RADIATION ONCOLOGY SIMULATION NOTE DATE OF SIMULATION: 08/28/2018 MACHINE: RF Controls Definition CT Simulator Diagnosis: Clinical stage I, T1cN0, non-small cell lung cancer AREA:left lung PATIENT POSITION: Supine. CONTRAST: None PROTOCOL: None BLOCKING: Custom blocking to be determined at treatment planning. FIXATION DEVICE: In order to achieve accurate and reproducible treatments, the patient is to be immobilized with full body vacbag PROCEDURE: A time-out was conducted and recorded by the therapist. Patient was simulated on the CT scanner for external beam radiation therapy. Treatment site was marked by the simulation therapist. ASSESSMENT/PLAN: Patient tolerated simulation procedure well. Treatments will be initiated after treatment planning. The patient is scheduled for a verification simulation on the treatment machine to ensure proper set-up and field arrangement is correct prior to the first treatment of primary and boost dawson if applicable. Electronically Signed Giovanni Ovalle M.D./srinivasan 08/29/20181:43 PM CNCNPATED Observed: 07/30/2018 Status: COMPLETED Source: [place] 12:00 AM [facility] REPOSITORY Education (RADTWS) CECILE VALLEJO ([id number]) 1945 F Date Time Provider Department 07/30/18 GIOVANNI OVALLE Reason for Visit: Patient Education [91] Visit Notes: >> Bandar (Nanda) NANDA Miramontes SatJul 30, 2018 11:09 AM Status: Signed Radiation Therapy - Patient Education Note PATIENT NAME: Cecile Vallejo PATIENT July 30, 2018 [facility] FACILITY/LOCATION: [place] READINESS TO LEARN Cognitive Ability: Alert and oriented Motivation to learn: Eager Interested Family Support: High - Very involved in pt care Instruction provide to: Patient and Spouse Patient learns best by: Individual Instruction Written Instruction - Hand-outs Verbal Instruction Factors effecting learning: None Physical limitations effecting learning: None LEARNING RESPONSE Diagnosis: Pt simulated today for radiation therapy to lung. Education Topic/Teaching Points: Radiation therapy, Side effects, OTV and ABC breathing: Reviewed [facility] hand out on Active Breathing Coordinator with pt. Explained to pt that machine will assist with holding breath for treatment. A call button to release the breath hold at anytime is held by the patient. The goal would be not to release the button because that will mean the treatment will be interrupted. Pt acknowledged that he/she can hold their breath for 20 seconds and can breathe without difficulty when patient's nose is clipped. Method of instruction: Teach Back skin care Individual instruction Written instruction - handouts Verbal instruction Patient /Family response: Patient and family verbalized understanding of radiation treatments, side effects, OTV, and transportation. Follow-up plan: Patient instructed to call with any further issues Reinforce - Repeat previous content Contact information given. Supplemental material: Informational handouts on Department phone list, Esophagitis/Mucositis, Fatigue, ABC Handout and XRT sheet, Satinder instruction, Aquaphor coupon. Referral (recommendation): None, Pt denied need for social work, van service, and automatic profile shaper operator. Signed by: Bandar Miramontes RN During your visit today, we recorded the following information about you: Allergies As of Date: 07/30/2018 Noted Allergy Reaction SULFA (SULFONAMIDE ANTIBIOTICS) 08/08/2005 2 - Rash Comments: SOME SULFA DRUGS Specifically reacted to topical sulfa cream, pt stated. CODEINE 03/05/2008 Comments: Severe headaches COMBIVENT (IPRATROPIUM-ALBUTEROL) 08/25/2012 7 - Swelling DOXYCYCLINE 08/08/2005 5 - Intolerance Comments: Stomach pains..it makes me double over, pt stated. DULERA (MOMETASONE-FORMOTEROL) 09/03/2012 5 - Intolerance Comments: tachycardia GABAPENTIN 06/16/2014 14 - Other: See Comments Comments: Loss of balance HCTZ (AMILORIDE-HYDROCHLOROTHIAZI*01/19/2009 Comments: blurry vision, fatigue IODINE 08/08/2005 MERCUROCHROME (MERBROMIN) 08/08/2005 5 - Intolerance Comments: Wound becomes infected, inflamed AND hyper- reactionary, pt stated. MERTHIOLATE [Other] 08/08/2005 METOPROLOL 07/17/2013 3 - Cough PREDNISONE 01/19/2009 Comments: messed up stomach patient states is able to take in small divided doses QVAR (BECLOMETHASONE) 03/08/2016 14 - Other: See Comments Comments: Reports coughing, headache, dizziness, nausea, wheezing. TAMIFLU (OSELTAMIVIR) 12/30/2017 5 - Intolerance Comments: Reported abdominal pain, changes in breathing, and severe dry mouth tape [Other] 03/28/2006 2 - Rash ADVIL (IBUPROFEN) 08/08/2005 5 - Intolerance Comments: severe headache Date Reviewed: 07/17/2018 Reviewed by: Mireya LópezRn) NANDA Pettit - Fully Assessed Prescriptions as of 07/30/2018 Sig: CLINDAMYCIN HCL 150 MG CAPSULE Take 1 capsule by mouth four * TIOTROPIUM BROMIDE 2.5 MCG/AC* Inhale 2 Puffs as instructed * RANITIDINE 75 MG TABLET Take 1 tablet by mouth twice * CARVEDILOL 25 MG TABLET Take 25 mg by mouth twice lynda* FUROSEMIDE 40 MG TABLET Take 40 mg by mouth once yoli* RIVAROXABAN 20 MG TABLET Take 1 tablet by mouth daily * QUINAPRIL 20 MG TABLET Take 1 tablet by mouth twice * TRIAMCINOLONE ACETONIDE 0.025* Apply 1 application to affect* FLUTICASONE 250 MCG-SALMETERO* Inhale 1 Puff as instructed t* ALBUTEROL SULFATE HFA 90 MCG/* Inhale 2 Puffs as instructed * EMOLLIENT COMBINATION NO.10 T* APPLY 1 APPLICATION TO AFFECT* VITAMIN B COMPLEX ER TABLET,E* Take 1 tablet by mouth once d* VITAMIN E 400 UNIT TABLET Take 1 tablet by mouth once d* ACETAMINOPHEN 500 MG TABLET Take one(1) tablet every four* Encounter Status:Closed by BANDAR MIRAMONTES on 07/30/18 PET/CT TUMOR BASE Observed: 07/21/2018 Status: F Source: [place] [facility] 5:23 AM [facility] REPOSITORY [facility] Imaging Services [address] [place] [address] PET/CT Tumor Base -Thigh Init MR#: [id number] Acct: [id number] Name: CECILE VALLEJO Rep #: [id number] : 1945 F 72 From: Dionisio Rdz DO PCP: Juan Mcdaniel MD Status: REG CLI Study: PET/CT Tumor Base -Thigh Init Date of Exam: 07/21/18 Exam# [id number] Ordering Dr: Apolinar Cazares DO EXAMINATION: FDG PET CT INDICATIONS: A 72-year-old female with reported history of carcinoma of the breast presenting for restaging examination. COMPARISON EXAMINATION: Previous FDG PET study dated 02/02/18. INDEX LESION SIZE SUV INTERPRETATION PERSISTENT: Left mid anterior hemithorax pulmonary parenchyma, left upper lobe 19.7 mm x 29.1 mm (frame 177) compared to 26.5 mm, 02/03/18 10.5 compared to 6.8, 02/03/18 Quantitative criteria for viable neoplasm are fulfilled, interim metabolic progression NON-INDEX LESION SIZE SUV INTERPRETATION PERSISTENT: Right breast 1.6 compared to 1.3, 02/03/18 Quantitative criteria for viable neoplasm are not fulfilled PERSISTENT: Left anterior chest wall 1.2 compared to 1.1, 02/03/18 Quantitative criteria for viable neoplasm are not fulfilled TECHNIQUE: Following the intravenous administration of 14.8 mCi of F-18 deoxyglucose via the left antecubital fossa, multiplanar image acquisitions of the neck, chest, abdomen and pelvis to level of mid thigh, obtained at one hour post radiopharmaceutical administration contemporaneously interpreted with the current CT of the neck, chest, abdomen and pelvis to level of mid thigh, dated 07/21/18 via coregistration and previous FDG PET study dated 02/03/18 reveal: SERUM GLUCOSE LEVEL: 83 mg/dl. HEIGHT: 64 inches. WEIGHT: 160 lbs. FINDINGS: 1. Redefined increased glucose metabolism is manifest in the left mid anterior hemithorax pulmonary parenchyma, left upper lobe generating a current calculated maximum standard uptake value of 10.5 compared to 6.8 demonstrated on the FDG PET study dated 02/03/18. The maximal axial diameter of the corresponding parenchymal density on review of CT of the thorax dated 07/21/18 is 19.6 mm (transverse) x 29.1 mm (AP). 2. Normal physiologic distribution of the radiopharmaceutical is apparent in the hepatic (2.6/3.7) and splenic parenchyma, both renal units, bladder and visualized intestinal tract. There is uniform distribution of the radiopharmaceutical concentration defined in the visualized cerebellar hemispheres and cerebral cortical structures.? Diffuse intestinal tract activity is noted throughout all four quadrants of the abdominal-pelvic retroperitoneum, mesentery consistent with normal physiologic distribution of the radiopharmaceutical. Heterogeneous enhanced FDG uptake persists in the right breast generating a current calculated maximum standard uptake value of 1.6 compared to 1.3 defined on the FDG PET study dated 02/03/18 and left anterior chest wall with a current calculated maximum standard uptake value of 1.2 compared to 1.1 demonstrated on the examination dated 02/03/18. The prior defined morphologic-anatomic changes noted on CT of the neck, chest, abdomen and pelvis manifest on the FDG PET CT study dated 02/03/18 are essentially unchanged on the present examination. PET/PET/CT Tumor Base -Thigh Init IMPRESSION: 1. ABNORMAL EXAMINATION INDICATIVE OF MALIGNANT VIABLE NEOPLASM. 2. Increased glucose concentration persistently defined in the left mid anterior hemithorax pulmonary parenchyma, left upper lobe fulfills quantitative criteria for viable neoplasm. (Polanco et al, Annals of Internal Medicine, 138:724, 2003). 3. Facilitated FDG uptake persistently defined in the right breast and left anterior chest wall does not fulfill quantitative criteria for malignant transformation. 4. Overall, compared to the prior FDG PET study dated 02/03/18, there is interim metabolic progression of defined viable neoplastic disease within the context of the left mid anterior lung zone-left upper lobe hypermetabolic focus. Electronic Signature Dionisio Rdz D.O. Electronically Signed: Dionisio Rdz DO at 23:34 EDT Tel , Service support , CC: Apolinar Cazares DO; Juan Mcdaniel MD [employer] Consultant: Signed PT-PET 1PETCT_WHOLEBODY Observed: 07/21/2018 Status: F Source: [place] (ADULT) IMPORT 12:00 AM [facility] REPOSITORY Images were obtained outside of [facility] [id number] CNOV Observed: 07/17/2018 Status: COMPLETED Source: [place] 1:30 PM [facility] REPOSITORY Office Visit (RADTWS) CECILE VALLEJO ([id number]) 1945 F Date Time Provider Department 07/17/18 1:30 PM IGOVANNI OVALLE During your visit today, we recorded the following information about you: Temperature Pulse Respiration Blood pressure 97.8 degrees 87/minute 18/minute 176/81 Weight 76.4 kg Giovanni Ovalle MD 07/18/2018 1:00 PM Signed Radiation Oncology - New Patient/Consult Note PATIENT NAME: Cecile Vallejo PATIENT REQUESTING PROVIDER: Apolinar Cazares DO DIAGNOSIS: 1. Clinical stage I, T1cN0, non-small cell lung cancer (adenocarcinmoa). 2. history of stage III, T2N2, left breast adenocarcinoma (ER less than 2%, MS less than 2%) in 1996, s/p left modified radical mastectomy on 10/06/96 followed by 3 cycles of FAC and then radiation treatment to the left chest wall and lymphatics. 3. history of stage II, T1N1, right breast invasive ductal carcinoma (ER positive, MS negative and Her2/yoav positive) in 2003 treated with right breast lumpectomy and sentinel node biopsy, adjuvant chemotherapy and then radiation treatment to the right breast HPI: 72 year old female who presents with above diagnosis, for an opinion regarding the role of radiation therapy in the management of the patient's disease. Final recommendations will be communicated back to the requesting physician by way of the shared medical record, or letter to requesting physician via [place] mail. 72 year old woman who is an active smoker for 52 years and with history of stage III, T2N2, left breast adenocarcinoma (ER less than 2%, MS less than 2%) in 1996. She had left modified radical mastectomy on 10/06/96 followed by 3 cycles of FAC and then radiation treatment to the left chest wall and lymphatics. She had 50 Gy in 25 fractions followed by chest wall boost of 16Gy from 02/09/97 to 03/26/97. She then had stage II, T1N1, right breast invasive ductal carcinoma (ER positive, MS negative and Her2/yoav positive) treated with right breast lumpectomy and sentinel node biopsy in 2003. She had chemotherapy. However, she didn't tolerate it well. She had radiation treatment to the right breast with 50Gy in 25 fractions followed by boost with 16 Gy in 8 fractions using 12 MeV electrons from 04/13/04 to 05/30/04. She was doing well until this spring when she had chest pain and shortness of breath. CXR on 12/30/17 showed a left upper lobe lung nodule measuring 3.3 x 1.8 cm. CTA chest on 12/30/17 showed a soft tissue mass vs. scarring in the left upper lobe lung measuring 2.9 cm. PET/CT scan on 02/03/18 showed a hypermetabolic lesion in the left upper lobe lung measuring 21.4 mm x 26.5 mm and max SUV of 6.8. CT guided core biopsy of the left upper lung lobe mass on 05/09/18 showed malignant cells consistent with non-small cell carcinoma, adenocarcinoma. IHC is consistent with lung primary. It's TTF-1 positive and ER/MS negative. CT abdomen/pelvis on 07/15/18 showed no definite evidence of metastases. She was seen by a thoracic surgeon, in [facility]. She was felt to be not a surgical candidate due to poor pulmonary reserve. She is here for consideration of SBRT. ALLERGIES Allergen Reactions - Sulfa (Sulfonamide * Rash SOME SULFA DRUGS Specifically reacted to topical sulfa cream, pt stated. - Codeine Severe headaches - Combivent [Ipratrop* Swelling - Doxycycline Intolerance Stomach pains..it makes me double over, pt stated. - Dulera [Mometasone-* Intolerance tachycardia - Gabapentin Other: See Comments Loss of balance - Hctz [Amiloride-Hyd* blurry vision, fatigue - Iodine - Mercurochrome [Merb* Intolerance Wound becomes infected, inflamed AND hyper-reactionary, pt stated. - Merthiolate [Other] - Metoprolol Cough - Prednisone messed up stomach patient states is able to take in small divided doses - Qvar [Beclomethason* Other: See Comments Reports coughing, headache, dizziness, nausea, wheezing. - Tamiflu [Oseltamivi* Intolerance Reported abdominal pain, changes in breathing, and severe dry mouth - Tape [Other] Rash - Advil [Ibuprofen] Intolerance severe headache PAST MEDICAL HISTORY Diagnosis Date - Benign neoplasm of colon - COPD (chronic obstructive pulmonary disease) (HCC) - History of breast cancer - Neoplasm of unspecified nature of breast left 13yrs ago/right 5yrs LEFT AND RIGHT - Scoliosis - Unspecified essential hypertension Prior radiation therapy, collagen vascular disease, or inflammatory bowel disease: Yes, previous radiation treatment to the left chest wall/axilla/SC and previous radiation treatment to the right breast as above. status: Post-menopausal. PAST SURGICAL HISTORY Procedure Laterality Date - BREAST BIOPSY W/ULTRASOUND GUIDANCE 06/10/14 U/S needle core upper inner right breast - COLONOS W/REM POLYP SNARE 03/04/09 Sigmoid polyp and diverticulosis - LIGATE FALLOPIAN TUBE 1987 Tubal ligation - MASTECTOMY 1993 Left - PAST SURGICAL HISTORY OF 2003 right lumpectomy - REM LESION NEC,HND,SCAL 1.1-2.0CM 03/13/06 Infected jacqueline cyst posterior neck - REMOVE PERM CANNULA/CATHETER 07/31/06 Remove right IJ port FAMILY HISTORY Problem Relation Age of Onset - Coronary Artery Disease Mother - Cancer Sister uterine or ovarian (pt not sure) - Cancer Brother , brain cancer Social History Marital status: Spouse name: maria dolores Years of education: 11 Number of children: 3 Occupational History 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 Alcohol use: Yes Comment: rarely Drug use: No Sexual activity: Yes Partners with: Male control/protection: Surgical Comment: tubal ligation COMPLETE REVIEW OF SYSTEMS: GENERAL: 20 pounds of weight loss over 10 months. HEENT: Negative for sudden vision or hearing changes. NECK: Negative for masses in the neck. RESPIRATORY: Occasional cough with white mucosa. She still smokes. CARDIAC: a fib and on Xarelto. GI: Negative for nausea, vomiting, diarrhea, constipation, blood per rectum, or melena. : stress incontinence. MUSCULOSKELETAL: Arthritis pain in the right leg and back. NEURO: Negative for dizziness, headache, weakness or numbness. HEMATOLOGIC: Negative for bleeding or easy bruising. SKIN: Negative for rashes or other skin changes. PHYSICAL EXAM: VS: BP 176/81 (BP Site: Right Arm, BP Position: Sitting, BP Cuff Size: Large Adult) Pulse 87 Temp 36.6 ?C (97.8 ?F) (Temporal Artery) Resp 18 Wt 76.4 kg (168 lb 8 oz) SpO2 96% BMI 31.32 kg/m? KPS: 100 General Appearance: Alert and oriented. No acute distress. HEENT: NCAT. Sclera anicteric. EOMI. Neck: Normal ROM. Chest: No respiratory distress. Lungs clear to auscultation bilaterally. Heart: Regular rate and rhythm. Abdomen: Soft. Nontender. Nondistended. Musculoskeletal: No edema. Normal ROM in extremities. Neuro: No gross focal deficits. Skin: No rashes noted Lymphatics: No palpable cervical or supraclavicular adenopathy. RADIOLOGY/LABORATORY DATA: see HPI ASSESSMENT AND PLAN: 72 year old woman with clinical stage I, T1cN0, non-small cell lung cancer (adenocarcinmoa). 2. history of stage III, T2N2, left breast adenocarcinoma (ER less than 2%, MS less than 2%) in 1996, s/p left modified radical mastectomy on 10/06/96 followed by 3 cycles of FAC and then radiation treatment to the left chest wall and lymphatics. 3. history of stage II, T1N1, right breast invasive ductal carcinoma (ER positive, MS negative and Her2/yoav positive) in 2003 treated with right breast lumpectomy and sentinel node biopsy, adjuvant chemotherapy and then radiation treatment to the right breast She was seen by a thoracic surgeon and was felt to be not a surgical candidate for her lung cancer due to poor pulmonary reserve. I recommend SBRT. Her last PET scan was done more than five months ago and she will have repeat PET scan on Saturday. I talked to her about more accurate mediastinum staging with EBUS but she declined it. I explained the rationale, benefits, alternative management options and potential complications of radiation treatment to the patient and she understands and agrees to proceed. It was explained and understood that other personnel such as radiation therapists, mooner, and physicists will participate in planning and delivery of radiation treatment. Permanent tattoo han will be placed to aid with positioning for daily treatment and the patient consented. Patient will have a simulation procedure after PET/CT scan on Saturday. Thank you very much for allowing us to participate in her care. Signed by: Giovanni Ovalle MD cc: Juan Mcdaniel MD [id number] [place] [address] Apolinar Cazares, [address] [facility] [address] Mireya Pettit RN, RN 07/17/2018 1:55 PM Signed Radiation Therapy - Nursing Note (Consult) PATIENT NAME: Cecile Vallejo PATIENT July 17, 2018 [facility] FACILITY/LOCATION: [place] Chief Complaint: consult Reason for visit: Consult. Referring physician: Internal provider Dr Cazares Subjective Data: no c/o. Additional Data Do you want to see a Knife Machine Operator? No Are you interested in information about fertility? No Sexual Activity: Female: No Stress Scale: On a scale of 0 to 10, what number best describes how much distress you have experienced in the past week?(0 being no distress and 10 being extreme distress) 3 Social work notified: Pt denied need to see social sciences research scientist at this time. SIGNED by: Mireya Pettit RN Referring Provider: APOLINAR CAZARES [[id number]] Allergies As of Date: 07/17/2018 Noted Allergy Reaction SULFA (SULFONAMIDE ANTIBIOTICS) 08/08/2005 2 - Rash Comments: SOME SULFA DRUGS Specifically reacted to topical sulfa cream, pt stated. CODEINE 03/05/2008 Comments: Severe headaches COMBIVENT (IPRATROPIUM-ALBUTEROL) 08/25/2012 7 - Swelling DOXYCYCLINE 08/08/2005 5 - Intolerance Comments: Stomach pains..it makes me double over, pt stated. DULERA (MOMETASONE-FORMOTEROL) 09/03/2012 5 - Intolerance Comments: tachycardia GABAPENTIN 06/16/2014 14 - Other: See Comments Comments: Loss of balance HCTZ (AMILORIDE-HYDROCHLOROTHIAZI*01/19/2009 Comments: blurry vision, fatigue IODINE 08/08/2005 MERCUROCHROME (MERBROMIN) 08/08/2005 5 - Intolerance Comments: Wound becomes infected, inflamed AND hyper- reactionary, pt stated. MERTHIOLATE [Other] 08/08/2005 METOPROLOL 07/17/2013 3 - Cough PREDNISONE 01/19/2009 Comments: messed up stomach patient states is able to take in small divided doses QVAR (BECLOMETHASONE) 03/08/2016 14 - Other: See Comments Comments: Reports coughing, headache, dizziness, nausea, wheezing. TAMIFLU (OSELTAMIVIR) 12/30/2017 5 - Intolerance Comments: Reported abdominal pain, changes in breathing, and severe dry mouth tape [Other] 03/28/2006 2 - Rash ADVIL (IBUPROFEN) 08/08/2005 5 - Intolerance Comments: severe headache Date Reviewed: 07/17/2018 Reviewed by: Mireya (Rn) NANDA Pettit - Fully Assessed Reason for Visit: Consult [502] Primary Visit Diagnosis:Cancer of upper lobe of left lung (HCC) [C34.12] Prescriptions as of 07/17/2018 Sig: TIOTROPIUM BROMIDE 2.5 MCG/AC* Inhale 2 Puffs as instructed * RANITIDINE 75 MG TABLET Take 1 tablet by mouth twice * CARVEDILOL 25 MG TABLET Take 25 mg by mouth twice lynda* FUROSEMIDE 40 MG TABLET Take 40 mg by mouth once yoli* RIVAROXABAN 20 MG TABLET Take 1 tablet by mouth daily * QUINAPRIL 20 MG TABLET Take 1 tablet by mouth twice * TRIAMCINOLONE ACETONIDE 0.025* Apply 1 application to affect* FLUTICASONE 250 MCG-SALMETERO* Inhale 1 Puff as instructed t* ALBUTEROL SULFATE HFA 90 MCG/* Inhale 2 Puffs as instructed * EMOLLIENT COMBINATION NO.10 T* APPLY 1 APPLICATION TO AFFECT* VITAMIN B COMPLEX ER TABLET,E* Take 1 tablet by mouth once d* VITAMIN E 400 UNIT TABLET Take 1 tablet by mouth once d* ACETAMINOPHEN 500 MG TABLET Take one(1) tablet every four* CLINDAMYCIN HCL 150 MG CAPSULE Take 1 capsule by mouth four * Problem List As Of Date 07/17/2018 Noted Resolved Breast neoplasm [D49.3] Priority: B More... Essential Hypertension, Benign [I10] INVALID FOR* Priority: A Osteoarth NOS-Unspec [M19.90] INVALID FOR* Malig Yayo Lymph-Axilla/Arm [C77.3] INVALID FOR*07/10/2010 Sebaceous Cyst [L72.3] INVALID FOR*07/10/2010 Unspecified Pleural Effusion [J90] INVALID FOR*07/10/2010 SCREEN (SEE ALSO ADMISSION) CANCER - COLON [Z*INVALID FOR*07/10/2010 Emphysema of lung (HCC) [J43.9] INVALID FOR* Priority: A Tobacco Use Disorder [F17.200] INVALID FOR* POLYP COLON [D12.6] INVALID FOR* Priority: B More... DIVERTICULOSIS [K57.30] INVALID FOR*02/01/2017 Priority: B Routine general medical examination at a health*INVALID FOR*08/01/2012 Class: Chronic More... Routine gynecological examination [Z01.419] INVALID FOR*08/01/2012 Class: Chronic More... RIB LESION, UNCERTAIN BEHAVIOR [M99.9] INVALID FOR*08/14/2016 Priority: A More... Mixed Hyperlipidemia [E78.2] INVALID FOR* Priority: A Back pain [M54.9] INVALID FOR* Priority: B Personal history of breast cancer [Z85.3] INVALID FOR* COPD (chronic obstructive pulmonary disease) (H* 08/14/2016 Lumbar radiculopathy [M54.16] INVALID FOR* DDD (degenerative disc disease), lumbar [M51.36]INVALID FOR* Lumbar scoliosis [M41.9] INVALID FOR* Persistent atrial fibrillation (HCC) [I48.1] INVALID FOR* More... Mass of upper lobe of lung [R91.8] INVALID FOR*06/18/2018 More... Acute systolic CHF (congestive heart failure) (*INVALID FOR* More... Cancer of upper lobe of left lung (HCC) [C34.12]INVALID FOR* Visit Notes: >> Mireya (Nanda) NANDA Pettit [facility] Jul 17, 2018 1:52 PM Status: Signed Radiation Therapy - Nursing Note (Consult) PATIENT NAME: Cecile Vallejo PATIENT July 17, 2018 [facility] FACILITY/LOCATION: [place] Chief Complaint: consult Reason for visit: Consult. Referring physician: Internal provider Dr Cazares Subjective Data: no c/o. Additional Data Do you want to see a Knife Machine Operator? No Are you interested in information about fertility? No Sexual Activity: Female: No Stress Scale: On a scale of 0 to 10, what number best describes how much distress you have experienced in the past week?(0 being no distress and 10 being extreme distress) 3 Social work notified: Pt denied need to see social sciences research scientist at this time. SIGNED by: Mireya Pettit RN Encounter Status:Closed by GIOVANNI OVALLE MD on 07/18/18 PROGRESS Observed: 07/17/2018 Status: COMPLETED Source: [place] [id number]:[id number] PM [facility] REPOSITORY HNO ID: [id number] Author: Giovanni Ovalle Service: (none) Author Type: Physician Type: Progress Notes Filed: 07/18/2018 1:00 PM Note Text: Radiation Oncology - New Patient/Consult Note PATIENT NAME: Cecile Vallejo PATIENT REQUESTING PROVIDER: Apolinar Cazares DO DIAGNOSIS: 1. Clinical stage I, T1cN0, non-small cell lung cancer (adenocarcinmoa). 2. history of stage III, T2N2, left breast adenocarcinoma (ER less than 2%, MS less than 2%) in 1996, s/p left modified radical mastectomy on 10/06/96 followed by 3 cycles of FAC and then radiation treatment to the left chest wall and lymphatics. 3. history of stage II, T1N1, right breast invasive ductal carcinoma (ER positive, MS negative and Her2/yoav positive) in 2003 treated with right breast lumpectomy and sentinel node biopsy, adjuvant chemotherapy and then radiation treatment to the right breast HPI: 72 year old female who presents with above diagnosis, for an opinion regarding the role of radiation therapy in the management of the patient's disease. Final recommendations will be communicated back to the requesting physician by way of the shared medical record, or letter to requesting physician via US mail. 72 year old woman who is an active smoker for 52 years and with history of stage III, T2N2, left breast adenocarcinoma (ER less than 2%, MS less than 2%) in 1996. She had left modified radical mastectomy on 10/06/96 followed by 3 cycles of FAC and then radiation treatment to the left chest wall and lymphatics. She had 50 Gy in 25 fractions followed by chest wall boost of 16Gy from 02/09/97 to 03/26/97. She then had stage II, T1N1, right breast invasive ductal carcinoma (ER positive, MS negative and Her2/yoav positive) treated with right breast lumpectomy and sentinel node biopsy in 2003. She had chemotherapy. However, she didn't tolerate it well. She had radiation treatment to the right breast with 50Gy in 25 fractions followed by boost with 16 Gy in 8 fractions using 12 MeV electrons from 04/13/04 to 05/30/04. She was doing well until this spring when she had chest pain and shortness of breath. CXR on 12/30/17 showed a left upper lobe lung nodule measuring 3.3 x 1.8 cm. CTA chest on 12/30/17 showed a soft tissue mass vs. scarring in the left upper lobe lung measuring 2.9 cm. PET/CT scan on 02/03/18 showed a hypermetabolic lesion in the left upper lobe lung measuring 21.4 mm x 26.5 mm and max SUV of 6.8. CT guided core biopsy of the left upper lung lobe mass on 05/09/18 showed malignant cells consistent with non-small cell carcinoma, adenocarcinoma. IHC is consistent with lung primary. It's TTF-1 positive and ER/MS negative. CT abdomen/pelvis on 07/15/18 showed no definite evidence of metastases. She was seen by a thoracic surgeon, in [facility]. She was felt to be not a surgical candidate due to poor pulmonary reserve. She is here for consideration of SBRT. ALLERGIES Allergen Reactions - Sulfa (Sulfonamide * Rash SOME SULFA DRUGS Specifically reacted to topical sulfa cream, pt stated. - Codeine Severe headaches - Combivent [Ipratrop* Swelling - Doxycycline Intolerance Stomach pains..it makes me double over, pt stated. - Dulera [Mometasone-* Intolerance tachycardia - Gabapentin Other: See Comments Loss of balance - Hctz [Amiloride-Hyd* blurry vision, fatigue - Iodine - Mercurochrome [Merb* Intolerance Wound becomes infected, inflamed AND hyper-reactionary, pt stated. - Merthiolate [Other] - Metoprolol Cough - Prednisone messed up stomach patient states is able to take in small divided doses - Qvar [Beclomethason* Other: See Comments Reports coughing, headache, dizziness, nausea, wheezing. - Tamiflu [Oseltamivi* Intolerance Reported abdominal pain, changes in breathing, and severe dry mouth - Tape [Other] Rash - Advil [Ibuprofen] Intolerance severe headache PAST MEDICAL HISTORY Diagnosis Date - Benign neoplasm of colon - COPD (chronic obstructive pulmonary disease) (HCC) - History of breast cancer - Neoplasm of unspecified nature of breast left 13yrs ago/right 5yrs LEFT AND RIGHT - Scoliosis - Unspecified essential hypertension Prior radiation therapy, collagen vascular disease, or inflammatory bowel disease: Yes, previous radiation treatment to the left chest wall/axilla/SC and previous radiation treatment to the right breast as above. status: Post-menopausal. PAST SURGICAL HISTORY Procedure Laterality Date - BREAST BIOPSY W/ULTRASOUND GUIDANCE 06/10/14 U/S needle core upper inner right breast - COLONOS W/REM POLYP SNARE 03/04/09 Sigmoid polyp and diverticulosis - LIGATE FALLOPIAN TUBE 1988 Tubal ligation - MASTECTOMY 1993 Left - PAST SURGICAL HISTORY OF 2003 right lumpectomy - REM LESION NEC,HND,SCAL 1.1-2.0CM 03/13/06 Infected jacqueline cyst posterior neck - REMOVE PERM CANNULA/CATHETER 07/31/06 Remove right IJ port FAMILY HISTORY Problem Relation Age of Onset - Coronary Artery Disease Mother - Cancer Sister uterine or ovarian (pt not sure) - Cancer Brother , brain cancer Social History Marital status: Spouse name: maria dolores Years of education: 11 Number of children: 3 Occupational History 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 Alcohol use: Yes Comment: rarely Drug use: No Sexual activity: Yes Partners with: Male control/protection: Surgical Comment: tubal ligation COMPLETE REVIEW OF SYSTEMS: GENERAL: 20 pounds of weight loss over 10 months. HEENT: Negative for sudden vision or hearing changes. NECK: Negative for masses in the neck. RESPIRATORY: Occasional cough with white mucosa. She still smokes. CARDIAC: a fib and on Xarelto. GI: Negative for nausea, vomiting, diarrhea, constipation, blood per rectum, or melena. : stress incontinence. MUSCULOSKELETAL: Arthritis pain in the right leg and back. NEURO: Negative for dizziness, headache, weakness or numbness. HEMATOLOGIC: Negative for bleeding or easy bruising. SKIN: Negative for rashes or other skin changes. PHYSICAL EXAM: VS: BP 176/81 (BP Site: Right Arm, BP Position: Sitting, BP Cuff Size: Large Adult) Pulse 87 Temp 36.6 ?C (97.8 ?F) (Temporal Artery) Resp 18 Wt 76.4 kg (168 lb 8 oz) SpO2 96% BMI 31.32 kg/m? KPS: 100 General Appearance: Alert and oriented. No acute distress. HEENT: NCAT. Sclera anicteric. EOMI. Neck: Normal ROM. Chest: No respiratory distress. Lungs clear to auscultation bilaterally. Heart: Regular rate and rhythm. Abdomen: Soft. Nontender. Nondistended. Musculoskeletal: No edema. Normal ROM in extremities. Neuro: No gross focal deficits. Skin: No rashes noted Lymphatics: No palpable cervical or supraclavicular adenopathy. RADIOLOGY/LABORATORY DATA: see HPI ASSESSMENT AND PLAN: 72 year old woman with clinical stage I, T1cN0, non-small cell lung cancer (adenocarcinmoa). 2. history of stage III, T2N2, left breast adenocarcinoma (ER less than 2%, MS less than 2%) in 1996, s/p left modified radical mastectomy on 10/06/96 followed by 3 cycles of FAC and then radiation treatment to the left chest wall and lymphatics. 3. history of stage II, T1N1, right breast invasive ductal carcinoma (ER positive, MS negative and Her2/yoav positive) in 2003 treated with right breast lumpectomy and sentinel node biopsy, adjuvant chemotherapy and then radiation treatment to the right breast She was seen by a thoracic surgeon and was felt to be not a surgical candidate for her lung cancer due to poor pulmonary reserve. I recommend SBRT. Her last PET scan was done more than five months ago and she will have repeat PET scan on Saturday. I talked to her about more accurate mediastinum staging with EBUS but she declined it. I explained the rationale, benefits, alternative management options and potential complications of radiation treatment to the patient and she understands and agrees to proceed. It was explained and understood that other personnel such as radiation therapists, mooner, and physicists will participate in planning and delivery of radiation treatment. Permanent tattoo han will be placed to aid with positioning for daily treatment and the patient consented. Patient will have a simulation procedure after PET/CT scan on Saturday. Thank you very much for allowing us to participate in her care. Signed by: Giovanni Ovalle MD cc: Juan Mcdaniel MD [id number] [place] [address] Apolinar Cazares DO [address] [facility] [id number] [address] BMP Collected: 07/16/2018 Status: F Source: [place] 11:14 AM [facility] REPOSITORY TYPE CODE TESTS RESULT OUT OF REFERENCE UNITS RANGE LAB NAWB 132-148 mmol/L Sodium, Whole 136 Bld LAB K1WB 3.5-5.0 mmol/L Potassium,Who 3.8 le Bld LAB CLWB 98-110 mmol/L Low Chloride, 97 Whole Bld LAB ICAWB 1.08-1.30 mmol/L Ionized 1.25 Calcium, WB Result Comment: Please note: This value represents ionized calcium not total calcium. LAB CO2WB 23-32 mmol/L TCO2, Whole Blood 28 LAB GLUWB 65-100 mg/dL Glucose, Whole Bld 92 LAB BUNWB 8-25 mg/dL Low BUN, Whole 7 Blood LAB BCRET 0.70-1.40 mg/dL Low Creatinine,Wh ole Bld 0.60 LAB AGAPWB 0-15 mmol/L Anion Gap, Whole Bld 11 LAB GFRAA eGFR- Amer. >60 LAB GFRNAA . eGFR-All Other Races >60 Result Comment: eGFR (Estimated GFR) Units of measure: mL/min/1.73 meters squared eGFR is derived from the reexpressed MDRD Study equation using the following parameters: serum creatinine, age, gender and race. The creatinine assay has been calibrated to be traceable to IDMS. An eGFR <60 mL/min/1.73m2 for >3 months is consistent with chronic kidney disease. Refer to KDOQI guidelines for clinical interpretation. In patients with unstable renal function, e.g. those with acute kidney injury, the eGFR may not accurately reflect actual GFR. PTH RELATED PEPTIDE Collected: 07/16/2018 Status: F Source: [place] 11:14 AM [facility] [place] REPOSITORY TYPE CODE TESTS RESULT OUT OF REFERENCE UNITS RANGE LAB PTHP 0.0-3.4 pmol/L PTH Related <2.0 Peptide Result Comment: (NOTE) INTERPRETIVE INFORMATION: Parathyroid Hormone-Related Peptide Test developed and characteristics determined by [facility]. See Compliance Statement B: [facility] Performed by [facility], [address] [place] [address] [email or web address] Kendall aHzel MD, Lab. Director Performed By: #### PTHPEP #### [facility] [address] [place] [address] [phone] PROGRESS Observed: 07/16/2018 Status: COMPLETED Source: [place] 10:32 AM [facility] REPOSITORY HNO ID: [id number] Author: Apolinar Cazares Service: (none) Author Type: Physician Type: Progress Notes Filed: 07/16/2018 11:04 AM Note Text: Diagnosis: 1) Breast cancer. 2) Lung mass. HPI: The patient is 72-year-old female with past medical history significant for bilateral breast cancer as outlined below, chronic back pain, tobacco use, COPD and atrial fibrillation. Patient was originally diagnosed in September 1996 with an infiltrating ductal carcinoma the left breast. It was a poorly differentiated tumor, grade 3 measuring 3 cm in diameter. There was also metastatic disease to 3 of 7 axillary nodes and lymphatic invasion of the nipple. She underwent a left modified radical mastectomy. Estrogen receptors were quantified less than 2% and progesterone receptors were less than 2%. She then received 3 cycles of FAC between 11/27/1996 through 01/07/1997. She had significant anorexia malaise and discontinued treatment after the third cycle. She went on to receive radiation treatment to the chest wall. In 2003 she was found to have an abnormality in the right breast. She underwent lumpectomy and sentinel lymph node dissection on 01/04/2004. 2 sentinel lymph nodes were positive for metastatic disease and subsequent axillary exploration showed no further lymph nodes in the specimen. Tumor in the breast measured 1 cm. Estrogen receptors quantified at 41%. MS was negative. HER-2 was strongly overexpressed. On 12/30/2017, she was directed to emergency room [facility] for progressive lower extremity edema and increasing shortness of breath. She was found to be in RVR atrial fibrillation. While in the emergency room she underwent a CTA of the chest because of her complaints. There was no evidence of pulmonary embolism but there was note made of a dense calcified mass involving the anterior portion of the third rib on the left. Patient was also noted be status post left mastectomy along with axillary lymph node dissection. The calcified mass was noted to be unchanged when compared to a CT done in June 2010 but there was development of a soft tissue mass versus area of scarring in the left upper lobe measuring 2.9 x 1.9 cm. No other pulmonary masses or nodules were visualized. Presents for ongoing oncologic management. Interim history: PET 02/03/2018: IMPRESSION: 1. Increased fluorine labeled glucose uptake defined in the left mid anterior hemithorax pulmonary parenchyma, left upper lobe fulfills quantitative criteria for viable neoplasm. Histopathologic analysis is recommended. (Sherri et al, Annals of Internal Medicine, 138:724, 2003). 2. Heterogeneous enhanced glucose metabolism manifest in the breast does not fulfill quantitative criteria for viable neoplasm. 3. The circumferential increase in radiopharmaceutical concentration demonstrated in the left anterior chest wall does not fulfill quantitative criteria for malignant transformation. CT guided biopsy of lung mass on 04/16/2018: MICROSCOPIC DIAGNOSIS CT guided lung mass, core biopsy: Non small cell carcinoma, adenocarcinoma. COMMENT The specimen is evaluated at the time of CT by Dr. Trejo. Immediate Evaluation = Atypical cells consistent with plasma cells are noted. Immunohistochemistry ([id number]) supports the above diagnosis. The tumor is positive for CK7. The tissue was limited and exhausted in the block. Clinical correlation is suggested. A metastatic carcinoma cannot be excluded. Underwent repeat CT guided biopsy 05/09/2018: Pathology: Left upper lung lobe mass, CT-guided core biopsy: Malignant cells consistent with non-small cell carcinoma, adenocarcinoma. See comment. ADDENDUM (KEYTRUDA) PD-L1 IMMUNOHISTOCHEMISTRY ANALYSIS FROM [facility] INTERPRETATION: No expression. Tumor proportion score 0% ALK FISH, LUNG, NON-SMALL CELL FROM [facility] FISH RESULT: No result. INTERPRETATION: Repeated FISH testing on the paraffin block submitted was unsuccessful. Presents for ongoing oncologic management. Interim history: She was seen by Dr. Nunez in [facility]. Not a surgical candidate due to the need for lobectomy and her poor pulmonary reserve. S/P RT was recommended. Symptoms or cellulitis have resolved. She was seen by her PCP and routine lab work suggested a mild increase in alkaline phosphatase. Fractionation demonstrated 80% from liver source. CT scan was done without IV contrast on Saturday. Results are still pending. She was also noted to have an increase in serum calcium. She was advised to stop multivitamins which she has done. PMH, medications and allergies personally reviewed by me today. Any changes documented in appropriate section. ROS: Constitutional: Denies episodes of fever and night sweats. Normal appetite. Fatigued. Neuro: Denies ALMEIDA, vertigo, dizziness and imbalance. HEENT: No recent change in voice, vision or hearing. Resp: See above. CVS: See above. GI: Denies dysgeusia. Denies symptoms of stomatitis. Denies dysphagia and odynophagia. Denies reflux, n/v, change in bowel habits and abdominal pain. : Denies dysuria or gross hematuria. No symptoms of bladder outlet obstruction. Endo: Denies hot flashes. Denies polyuria and polydipsia. Denies heat and cold intolerance. Musculoskeletal: See above. Derm: Denies rash. Denies jaundice. Heme: Denies unusual bleeding and unexplained bruising. Psych: Normal mood. PHYSICAL EXAM: Vitals: There were no vitals taken for this visit. Well-appearing and in no acute distress. EYES: Sclerae are anicteric bilaterally. NECK: Supple. LYMPHATIC: There is no palpable cervical, supraclavicular or axillary adenopathy. RESPIRATORY: Inspiratory breath sounds are of diminished intensity in all dawson. Coarse rhonchi throughout. CARDIOVASCULAR: Rhythm is regular. BREAST: Left mastectomy site is contracted from previous radiation. No chest wall mass or nodule. Extremities: More swelling with confluent erythema anterior RLE. SKIN: No jaundice or rash. No petechiae. NEUROLOGIC: band straightener II-XII are grossly intact. ASSESSMENT/PLAN: (C34.12) Cancer of upper lobe of left lung (HCC) (primary encounter diagnosis) (E83.52) Hypercalcemia Assessment: -The patient is a 72-year-old female who had 2 primary breast cancers. She has a chronic calcified lesion of the anterior left third rib most likely due to mal-healed fracture. -Biopsy proven NSCLC of RICHARD. -Clinical T1c N0 primary. PET from 02/2018 did not suggest hilar or mediastinal adenopathy nor was there evidence distant metastases. -Not a surgical candidate. -I discussed with her that I recommended repeat imaging including PET scan. She is allergic to iodine so the CT images from the PET scan and will be just as good as a non-IV contrast enhanced CT of the chest. We discussed the need for bronchoscopy for appropriate mediastinal staging is PET scan negative in the mediastinum but patient declines to undergo this procedure. She is anxious to get underway for therapy since the workup and treatment plan has taken place over months. -Discussed that our facility here is capable of S/P RT. She is interested in having it done here because she does not want to travel to [place] for radiation treatment. -I reviewed the CT of abdomen and pelvis along with the patient and her . It was done without oral and IV contrast. Very difficult to discern any abnormality in the liver but nothing obviously or grossly suggestive of malignancy. Plan: -Repeat PET scan on Saturday or first available which [facility]. -Referral to Dr. Ovalle for opinion on S/P RT. -Stat BMP/parathyroid-like hormone level today. -Awaiting CT A/P results. Apolinar Cazares DO CNOVSP Observed: 07/16/2018 Status: COMPLETED Source: [place] 10:30 AM [facility] REPOSITORY Visit (SP) Office ([place]) CECILE VALLEJO ([id number]) 1945 F Date Time Provider Department 07/16/18 10:30 AM APOLINAR CAZARES During your visit today, we recorded the following information about you: Temperature Pulse Blood pressure Weight 98.5 degrees 80/minute 124/78 76 kg Apolinar Cazares DO 07/16/2018 11:04 AM Signed Diagnosis: 1) Breast cancer. 2) Lung mass. HPI: The patient is 72-year-old female with past medical history significant for bilateral breast cancer as outlined below, chronic back pain, tobacco use, COPD and atrial fibrillation. Patient was originally diagnosed in September 1996 with an infiltrating ductal carcinoma the left breast. It was a poorly differentiated tumor, grade 3 measuring 3 cm in diameter. There was also metastatic disease to 3 of 7 axillary nodes and lymphatic invasion of the nipple. She underwent a left modified radical mastectomy. Estrogen receptors were quantified less than 2% and progesterone receptors were less than 2%. She then received 3 cycles of FAC between 11/27/1996 through 01/07/1997. She had significant anorexia malaise and discontinued treatment after the third cycle. She went on to receive radiation treatment to the chest wall. In 2003 she was found to have an abnormality in the right breast. She underwent lumpectomy and sentinel lymph node dissection on 01/04/2004. 2 sentinel lymph nodes were positive for metastatic disease and subsequent axillary exploration showed no further lymph nodes in the specimen. Tumor in the breast measured 1 cm. Estrogen receptors quantified at 41%. MS was negative. HER-2 was strongly overexpressed. On 12/30/2017, she was directed to emergency room [facility] for progressive lower extremity edema and increasing shortness of breath. She was found to be in RVR atrial fibrillation. While in the emergency room she underwent a CTA of the chest because of her complaints. There was no evidence of pulmonary embolism but there was note made of a dense calcified mass involving the anterior portion of the third rib on the left. Patient was also noted be status post left mastectomy along with axillary lymph node dissection. The calcified mass was noted to be unchanged when compared to a CT done in June 2010 but there was development of a soft tissue mass versus area of scarring in the left upper lobe measuring 2.9 x 1.9 cm. No other pulmonary masses or nodules were visualized. Presents for ongoing oncologic management. Interim history: PET 02/03/2018: IMPRESSION: 1. Increased fluorine labeled glucose uptake defined in the left mid anterior hemithorax pulmonary parenchyma, left upper lobe fulfills quantitative criteria for viable neoplasm. Histopathologic analysis is recommended. (Sherri et al, Annals of Internal Medicine, 138:724, 2003). 2. Heterogeneous enhanced glucose metabolism manifest in the breast does not fulfill quantitative criteria for viable neoplasm. 3. The circumferential increase in radiopharmaceutical concentration demonstrated in the left anterior chest wall does not fulfill quantitative criteria for malignant transformation. CT guided biopsy of lung mass on 04/16/2018: MICROSCOPIC DIAGNOSIS CT guided lung mass, core biopsy: Non small cell carcinoma, adenocarcinoma. COMMENT The specimen is evaluated at the time of CT by Dr. Trejo. Immediate Evaluation = Atypical cells consistent with plasma cells are noted. Immunohistochemistry ([id number]) supports the above diagnosis. The tumor is positive for CK7. The tissue was limited and exhausted in the block. Clinical correlation is suggested. A metastatic carcinoma cannot be excluded. Underwent repeat CT guided biopsy 05/09/2018: Pathology: Left upper lung lobe mass, CT-guided core biopsy: Malignant cells consistent with non-small cell carcinoma, adenocarcinoma. See comment. ADDENDUM (KEYTRUDA) PD-L1 IMMUNOHISTOCHEMISTRY ANALYSIS FROM [facility] INTERPRETATION: No expression. Tumor proportion score 0% ALK FISH, LUNG, NON-SMALL CELL FROM [facility] FISH RESULT: No result. INTERPRETATION: Repeated FISH testing on the paraffin block submitted was unsuccessful. Presents for ongoing oncologic management. Interim history: She was seen by Dr. Nunez in [facility]. Not a surgical candidate due to the need for lobectomy and her poor pulmonary reserve. S/P RT was recommended. Symptoms or cellulitis have resolved. She was seen by her PCP and routine lab work suggested a mild increase in alkaline phosphatase. Fractionation demonstrated 80% from liver source. CT scan was done without IV contrast on Saturday. Results are still pending. She was also noted to have an increase in serum calcium. She was advised to stop multivitamins which she has done. PMH, medications and allergies personally reviewed by me today. Any changes documented in appropriate section. ROS: Constitutional: Denies episodes of fever and night sweats. Normal appetite. Fatigued. Neuro: Denies ALMEIDA, vertigo, dizziness and imbalance. HEENT: No recent change in voice, vision or hearing. Resp: See above. CVS: See above. GI: Denies dysgeusia. Denies symptoms of stomatitis. Denies dysphagia and odynophagia. Denies reflux, n/v, change in bowel habits and abdominal pain. : Denies dysuria or gross hematuria. No symptoms of bladder outlet obstruction. Endo: Denies hot flashes. Denies polyuria and polydipsia. Denies heat and cold intolerance. Musculoskeletal: See above. Derm: Denies rash. Denies jaundice. Heme: Denies unusual bleeding and unexplained bruising. Psych: Normal mood. PHYSICAL EXAM: Vitals: There were no vitals taken for this visit. Well-appearing and in no acute distress. EYES: Sclerae are anicteric bilaterally. NECK: Supple. LYMPHATIC: There is no palpable cervical, supraclavicular or axillary adenopathy. RESPIRATORY: Inspiratory breath sounds are of diminished intensity in all dawson. Coarse rhonchi throughout. CARDIOVASCULAR: Rhythm is regular. BREAST: Left mastectomy site is contracted from previous radiation. No chest wall mass or nodule. Extremities: More swelling with confluent erythema anterior RLE. SKIN: No jaundice or rash. No petechiae. NEUROLOGIC: band straightener II-XII are grossly intact. ASSESSMENT/PLAN: (C34.12) Cancer of upper lobe of left lung (HCC) (primary encounter diagnosis) (E83.52) Hypercalcemia Assessment: -The patient is a 72-year-old female who had 2 primary breast cancers. She has a chronic calcified lesion of the anterior left third rib most likely due to mal-healed fracture. -Biopsy proven NSCLC of RICHARD. -Clinical T1c N0 primary. PET from 02/2018 did not suggest hilar or mediastinal adenopathy nor was there evidence distant metastases. -Not a surgical candidate. -I discussed with her that I recommended repeat imaging including PET scan. She is allergic to iodine so the CT images from the PET scan and will be just as good as a non-IV contrast enhanced CT of the chest. We discussed the need for bronchoscopy for appropriate mediastinal staging is PET scan negative in the mediastinum but patient declines to undergo this procedure. She is anxious to get underway for therapy since the workup and treatment plan has taken place over months. -Discussed that our facility here is capable of S/P RT. She is interested in having it done here because she does not want to travel to [place] for radiation treatment. -I reviewed the CT of abdomen and pelvis along with the patient and her . It was done without oral and IV contrast. Very difficult to discern any abnormality in the liver but nothing obviously or grossly suggestive of malignancy. Plan: -Repeat PET scan on Saturday or first available which [facility]. -Referral to Dr. Ovalle for opinion on S/P RT. -Stat BMP/parathyroid-like hormone level today. -Awaiting CT A/P results. Apolinar Cazares DO Referring Provider: APOLINAR CAZARES [[id number]] Allergies As of Date: 07/16/2018 Noted Allergy Reaction SULFA (SULFONAMIDE ANTIBIOTICS) 08/08/2005 2 - Rash Comments: SOME SULFA DRUGS Specifically reacted to topical sulfa cream, pt stated. CODEINE 03/05/2008 Comments: Severe headaches COMBIVENT (IPRATROPIUM-ALBUTEROL) 08/25/2012 7 - Swelling DOXYCYCLINE 08/08/2005 5 - Intolerance Comments: Stomach pains..it makes me double over, pt stated. DULERA (MOMETASONE-FORMOTEROL) 09/03/2012 5 - Intolerance Comments: tachycardia GABAPENTIN 06/16/2014 14 - Other: See Comments Comments: Loss of balance HCTZ (AMILORIDE-HYDROCHLOROTHIAZI*01/19/2009 Comments: blurry vision, fatigue IODINE 08/08/2005 MERCUROCHROME (MERBROMIN) 08/08/2005 5 - Intolerance Comments: Wound becomes infected, inflamed AND hyper- reactionary, pt stated. MERTHIOLATE [Other] 08/08/2005 METOPROLOL 07/17/2013 3 - Cough PREDNISONE 01/19/2009 Comments: messed up stomach patient states is able to take in small divided doses QVAR (BECLOMETHASONE) 03/08/2016 14 - Other: See Comments Comments: Reports coughing, headache, dizziness, nausea, wheezing. TAMIFLU (OSELTAMIVIR) 12/30/2017 5 - Intolerance Comments: Reported abdominal pain, changes in breathing, and severe dry mouth tape [Other] 03/28/2006 2 - Rash ADVIL (IBUPROFEN) 08/08/2005 5 - Intolerance Comments: severe headache Date Reviewed: 07/16/2018 Reviewed by: Analia Vences - Fully Assessed Reason for Visit: Established Patient [175] Primary Visit Diagnosis:Cancer of upper lobe of left lung (HCC) [C34.12] Other Visit Diagnoses:Lung nodules [R91.8] Personal history of breast cancer [Z85.3] Hypercalcemia [E83.52] Order(s):NM PET/CT SKULL-THIGH SUBQ [5512039] Order #: [id number] FUTURE SATINDER ISTAT BMP [SQWSTBMP] Order #: [id number] FUTURE PTH RELATED PEPTIDE [SQPTHPEP] Order #: [id number] FUTURE Follow-up and Disposition History Recorded Prescriptions as of 07/16/2018 Sig: TIOTROPIUM BROMIDE 2.5 MCG/AC* Inhale 2 Puffs as instructed * RANITIDINE 75 MG TABLET Take 1 tablet by mouth twice * CARVEDILOL 25 MG TABLET Take 25 mg by mouth twice lynda* FUROSEMIDE 40 MG TABLET Take 40 mg by mouth once yoli* RIVAROXABAN 20 MG TABLET Take 1 tablet by mouth daily * QUINAPRIL 20 MG TABLET Take 1 tablet by mouth twice * TRIAMCINOLONE ACETONIDE 0.025* Apply 1 application to affect* FLUTICASONE 250 MCG-SALMETERO* Inhale 1 Puff as instructed t* ALBUTEROL SULFATE HFA 90 MCG/* Inhale 2 Puffs as instructed * EMOLLIENT COMBINATION NO.10 T* APPLY 1 APPLICATION TO AFFECT* VITAMIN B COMPLEX ER TABLET,E* Take 1 tablet by mouth once d* VITAMIN E 400 UNIT TABLET Take 1 tablet by mouth once d* ACETAMINOPHEN 500 MG TABLET Take one(1) tablet every four* CLINDAMYCIN HCL 150 MG CAPSULE Take 1 capsule by mouth four * Medication notes this encounter CLINDAMYCIN HCL 150 MG CAPSULE >> Analia Vences MA 07/16/2018 10:30 AM >> ANALIA VENCES MA SatJul 16, 2018 10:30 AM Completed Problem List As Of Date 07/16/2018 Noted Resolved Breast neoplasm [D49.3] Priority: B More... Essential Hypertension, Benign [I10] INVALID FOR* Priority: A Osteoarth NOS-Unspec [M19.90] INVALID FOR* Malig Yayo Lymph-Axilla/Arm [C77.3] INVALID FOR*07/10/2010 Sebaceous Cyst [L72.3] INVALID FOR*07/10/2010 Unspecified Pleural Effusion [J90] INVALID FOR*07/10/2010 SCREEN (SEE ALSO ADMISSION) CANCER - COLON [Z*INVALID FOR*07/10/2010 Emphysema of lung (HCC) [J43.9] INVALID FOR* Priority: A Tobacco Use Disorder [F17.200] INVALID FOR* POLYP COLON [D12.6] INVALID FOR* Priority: B More... DIVERTICULOSIS [K57.30] INVALID FOR*02/01/2017 Priority: B Routine general medical examination at a health*INVALID FOR*08/01/2012 Class: Chronic More... Routine gynecological examination [Z01.419] INVALID FOR*08/01/2012 Class: Chronic More... RIB LESION, UNCERTAIN BEHAVIOR [M99.9] INVALID FOR*08/14/2016 Priority: A More... Mixed Hyperlipidemia [E78.2] INVALID FOR* Priority: A Back pain [M54.9] INVALID FOR* Priority: B Personal history of breast cancer [Z85.3] INVALID FOR* COPD (chronic obstructive pulmonary disease) (H* 08/14/2016 Lumbar radiculopathy [M54.16] INVALID FOR* DDD (degenerative disc disease), lumbar [M51.36]INVALID FOR* Lumbar scoliosis [M41.9] INVALID FOR* Persistent atrial fibrillation (HCC) [I48.1] INVALID FOR* More... Mass of upper lobe of lung [R91.8] INVALID FOR*06/18/2018 More... Acute systolic CHF (congestive heart failure) (*INVALID FOR* More... Cancer of upper lobe of left lung (HCC) [C34.12]INVALID FOR* Encounter Status:Closed by APOLINAR CAZARES DO on 07/16/18 PROGRESS Observed: 07/15/2018 Status: COMPLETED Source: [place] 11:31 AM [facility] REPOSITORY [facility] ID: [id number] Author: Celeste Samson Lockhartiain Baires Service: (none) Author Type: (none) Type: Progress Notes Filed: 07/15/2018 11:31 AM Note Text: Radiology Service Progress Note PATIENT NAME: Cecile Vallejo DATE OF SERVICE: July 15, 2018 TIME: 11:31 AM PATIENT IDENTITY VERIFICATION COMPLETED USING TWO (2) METHODS: Patient confirmed name verbally and Date of . PATIENT GENDER DATA: Female. status: : No status: NO. PATIENT RELEVANT IMPLANT DATA REVIEWED: Not Applicable RADIOLOGY DEPARTMENT: CT; Exam(s) Completed: Abdomen/Pelvis PERIPHERAL IV DATA: Not applicable SIGNED BY: Celeste Samson Chantelle Viry July 15, 2018 11:[address] ABD/PEL WO IVCON Observed: 07/15/2018 Status: F Source: [place] 8:30 AM [facility] REPOSITORY * * *Final Report* * * DATE OF EXAM: Jul 15 2018 8:30AM [facility] 0531 - CT ABD/PEL WO IVCON / PROCEDURE REASON: multiple diagnoses * * * * Physician Interpretation * * * * EXAMINATION: CT ABDOMEN AND PELVIS WITHOUT IV CONTRAST CLINICAL HISTORY: History of lung cancer. Abnormal liver function tests. TECHNIQUE: Non-IV contrast imaging of the abdomen and pelvis was performed using standard technique, scanning from just above the dome of the diaphragm to the symphysis pubis. Unenhanced imaging is limited for the evaluation of some intra-abdominal and pelvic pathology. MQ: [id number]_3 Contrast: IV: None Oral: None CT Radiation dose: Integrated Dose-length product (DLP) for this visit = 486 mGy*cm. CT Dose Reduction Employed: Automated exposure control(AEC) and iterative recon COMPARISON: CT abdomen and pelvis 04/11/[address]/PET scan 02/03/2018 RESULT: Abdomen / Pelvis: Liver: Normal hepatic morphology. There is a 2.5 x 1 cm hypodense area in the posterior right lobe of liver on image 32 which appears unchanged compared to both prior studies. Biliary: No biliary dilatation. There are tiny stones in the dependent portion of the gallbladder. Spleen: No splenomegaly. Pancreas: Unremarkable. Adrenals: No mass. Kidneys: No calculus, hydronephrosis or finding to suggest a cyst or mass in the unenhanced kidney. GI Tract: No bowel dilation. The appendix has a normal appearance. There are diverticula in the descending and sigmoid colon without evidence of acute diverticulitis. Lymph Nodes: No lymphadenopathy. Mesentery/peritoneum: No ascites. Retroperitoneum: No mass. Vasculature: No abdominal aortic aneurysm. Pelvis: No mass or ascites. The bladder has a normal appearance. Bones/Soft Tissues: No acute abnormality. There is degenerative disease of the lumbar spine. Lower thorax: No pleural effusion or consolidation. IMPRESSION: 1. Stable linear hypodense area in the posterior right lobe of the liver which may represent some scarring. No new liver lesion is visualized. 2. No acute pathology 3. Cholelithiasis [employer] Consultant: VICTORIANO Transcribe Date/Time: Jul 16 2018 3:11P Dictated by : CHALINO MAYER MD This examination was interpreted and the report reviewed and electronically signed by: CHALINO MAYER MD on Jul 16 2018 3:30PM EST [id number] Observed: 07/04/2018 Status: COMPLETED Source: [place] 10:25 AM [facility] REPOSITORY [facility] ID: [id number] Author: Juan Mcdaniel Service: (none) Author Type: Physician Type: Progress Notes Filed: 07/04/2018 10:41 AM Note Text: Patient presents with: Recheck: cellulitis HPI: Patient presents today for office visit for followup. She has a few antibiotics left did well with the prednisone. Overall is doing better. Rash and edema of both leg and back are much better. No itching. No fever or chills. Overall doing much better. Reviewed labs. Her calcium is still up. Her liver alk phos remains up. She is scheduled for a ct of her abd on 07/14 No stomach pain, itching or nausea or vomiting. Her calcium remains elevated. Her vit d and parathyroid are normal. ? Related to malignancy. Will discuss with oncology. Component Latest Ref Rng AND Units 06/26/2018 07/03/2018 WBC 3.70 - 11.00 k/uL 4.81 RBC 3.90 - 5.20 m/uL 4.93 Hemoglobin 11.5 - 15.5 g/dL 15.5 Hematocrit 36.0 - 46.0 % 48.7 (H) MCV 80.0 - 100.0 fL 98.8 MCH 26.0 - 34.0 pG 31.4 MCHC 30.5 - 36.0 g/dL 31.8 RDW-CV 11.5 - 15.0 % 13.6 Platelet Count 150 - 400 k/uL 258 MPV 9.0 - 12.7 fL 9.9 Neut% % 62.2 Abs Neut (ANC) 1.45 - 7.50 k/uL 2.98 Lymph% % 23.5 Abs Lymph 1.00 - 4.00 k/uL 1.13 [place]% % 8.7 Abs [place] <0.87 k/uL 0.42 Eosin% % 4.8 Abs Eosin <0.46 k/uL 0.23 Baso% % 0.8 Abs Baso <0.11 k/uL 0.04 Nucleated Reds 0 /100 WBC 0.0 Absolute nRBC <0.01 k/uL <0.01 Diff Type Auto Diff Glucose 74 - 99 mg/dL 96 98 BUN 7 - 21 mg/dL 3 (L) 5 (L) Creatinine 0.58 - 0.96 mg/dL 0.62 0.57 (L) Sodium 136 - 144 mmol/L 133 (L) 134 (L) Potassium 3.7 - 5.1 mmol/L 3.5 (L) 3.5 (L) Chloride 97 - 105 mmol/L 92 (L) 89 (L) CO2 22 - 30 mmol/L 27 31 (H) Anion Gap 9 - 18 mmol/L 14 14 Calcium 8.5 - 10.2 mg/dL 9.9 9.8 eGFR- >60 >60 eGFR-All Other Races . >60 >60 Albumin 3.9 - 4.9 g/dL 4.1 Bilirubin, Total 0.2 - 1.3 mg/dL 1.6 (H) Bilirubin, Conjug <0.2 mg/dL 0.6 (H) Alkaline Phosphatase 32 - 117 U/L 119 (H) AST 13 - 35 U/L 39 (H) ALT 7 - 38 U/L 29 Protein, Total 6.3 - 8.0 g/dL 6.5 Alkaline Phosphatase (ALKISO) 32 - 117 U/L 127 (H) Alk Phos Bone % 10.7 - 68.3 % 29.5 Bone Fraction 12.0 - 50.0 U/L 37.5 Alk Phos Liver % 26.0 - 86.2 % 66.2 Liver Fraction 15.0 - 66.0 U/L 84.1 (H) Alk Phos Intestine % 0.0 - 24.2 % 4.4 Intestine Fraction 0.0 - 15.3 U/L 5.6 Hep A Ab, IgM Negative Negative Hep B Surface Ag Negative Negative HCV RNA by PCR IU/mL HCV RNA not detected by PCR. Hep B Core Ab, IgM Negative Negative Ionized Calcium 1.08 - 1.30 mmol/L 1.31 (H) 1.37 (H) Normalized CAlcium 1.08 - 1.30 mmol/L 1.31 (H) 1.35 (H) PTH, Intact 15 - 65 pg/mL 47 Vitamin D 25 Hydroxy 31.0 - 80.0 ng/mL 30.9 (L) MEDICATIONS: Current Outpatient Prescriptions: clindamycin (CLEOCIN) 150 mg capsule Take 1 capsule by mouth four times daily. tiotropium bromide (SPIRIVA RESPIMAT) 2.5 mcg/actuation mist Inhale 2 Puffs as instructed once daily. ranitidine (ZANTAC 75) 75 mg tablet Take 1 tablet by mouth twice daily. carvedilol (COREG) 25 mg tablet Take 25 mg by mouth twice daily. furosemide (LASIX) 40 mg tablet Take 40 mg by mouth once daily. rivaroxaban (XARELTO) 20 mg tablet Take 1 tablet by mouth daily with dinner. quinapril (ACCUPRIL) 20 mg tablet Take 1 tablet by mouth twice daily. triamcinolone (KENALOG) 0.025 % cream Apply 1 application to affected area twice daily. fluticasone-salmeterol (ADVAIR DISKUS) 250-50 mcg/dose dsdv Inhale 1 Puff as instructed twice daily. Rinse and gargle mouth after use with water. albuterol HFA (VENTOLIN HFA) 90 mcg/actuation inhaler Inhale 2 Puffs as instructed every 4 hours as needed for Wheezing/Shortness of Breath. emollient combination (PRUTECT) emul APPLY 1 APPLICATION TO AFFECTED AREA NEEDED B Complex Vitamins (B-50 COMPLEX) TbER Take 1 tablet by mouth once daily. Vitamin E 400 unit tab Take 1 tablet by mouth once daily. ACETAMINOPHEN 500 MG TAB Take one(1) tablet every four(4) hours prn. No current facility-administered medications for this visit. ALLERGIES: ALLERGIES Allergen Reactions - Sulfa (Sulfonamide * Rash SOME SULFA DRUGS Specifically reacted to topical sulfa cream, pt stated. - Codeine Severe headaches - Combivent [Ipratrop* Swelling - Doxycycline Intolerance Stomach pains..it makes me double over, pt stated. - Dulera [Mometasone-* Intolerance tachycardia - Gabapentin Other: See Comments Loss of balance - Hctz [Amiloride-Hyd* blurry vision, fatigue - Iodine - Mercurochrome [Merb* Intolerance Wound becomes infected, inflamed AND hyper-reactionary, pt stated. - Merthiolate [Other] - Metoprolol Cough - Prednisone messed up stomach patient states is able to take in small divided doses - Qvar [Beclomethason* Other: See Comments Reports coughing, headache, dizziness, nausea, wheezing. - Tamiflu [Oseltamivi* Intolerance Reported abdominal pain, changes in breathing, and severe dry mouth - Tape [Other] Rash - Advil [Ibuprofen] Intolerance severe headache PAST MEDICAL HISTORY Diagnosis Date - Benign neoplasm of colon - COPD (chronic obstructive pulmonary disease) (HCC) - History of breast cancer - Neoplasm of unspecified nature of breast left 13yrs ago/right 5yrs LEFT AND RIGHT - Unspecified essential hypertension PAST SURGICAL HISTORY Procedure Laterality Date - BREAST BIOPSY W/ULTRASOUND GUIDANCE 06/10/14 U/S needle core upper inner right breast - COLONOS W/REM POLYP SNARE 03/04/09 Sigmoid polyp and diverticulosis - LIGATE FALLOPIAN TUBE 1987 Tubal ligation - MASTECTOMY 1993 Left - PAST SURGICAL HISTORY OF 2003 right lumpectomy - REM LESION NEC,HND,SCAL 1.1-2.0CM 03/13/06 Infected jacqueline cyst posterior neck - REMOVE PERM CANNULA/CATHETER 07/31/06 Remove right IJ port FAMILY HISTORY Problem Relation Age of Onset - Coronary Artery Disease Mother - Cancer Sister uterine or ovarian (pt not sure) - Cancer Brother , brain cancer Social History Marital status: Spouse name: maria dolores Years of education: 11 Number of children: 3 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 Alcohol use: Yes Comment: rarely Drug use: No Sexual activity: Yes Partners with: Male control/protection: Surgical Comment: tubal ligation Reviewed current medications, allergies, past medical history, surgical history, family history and social history today. REVIEW OF SYSTEMS RESPIRATORY: breathing is much better. no increased cough or congestion. CARDIOVASCULAR: no chest pain or palpitations. GI: Negative for change in bowel habit, heart burn, nausea, vomiting All other reviewed and negative other than HPI. HEALTH MAINTENANCE: Reviewed health maintenance issues today and recommended the following in detail. BP CONTROLLED (<130/80) due on 1964 VITALS: BP 138/72 Pulse 84 Temp 36.8 ?C (98.2 ?F) (Tympanic) Resp 18 Last 4 Encounter Wt Readings: Date: Wt: 06/27/2018 74.4 kg (164 lb) 06/24/2018 75.3 kg (166 lb) 06/18/2018 75.3 kg (166 lb) 04/28/2018 79.6 kg (175 lb 8 oz) PHYSICAL EXAMINATION: General appearance: Well appearing, alert, in no acute distress, well-hydrated, well nourished. Skin: rashes in lower back, both legs is markedly better. Still some mild redness on right leg and lower back. Head: Normocephalic, no masses, lesions, tenderness or abnormalities Lungs: Lungs clear to auscultation. No wheezing, rhonchi, rales Heart: RRR without murmur, gallop, or rubs. No ectopy Abdomen: Normal abdominal exam, Abdomen soft, non-tender. Bowel sounds normal. No masses, organomegaly Extremities: left leg shows no edema. Right leg is much improved in edema. No calf tenderness. PSYCH:Affect normal. Normal speech. Normal eye contact ASSESSMENT/PLAN: 1. Dermatitis - ICD9: 692.9, ICD10: L30.9 (primary diagnosis) - discussed skin care of rash - follow up if symptoms persist or worsen. - Rash dramatically improved with steroids. Will give five additional days. Call if symptoms worsen at all or if not better in one to two weeks - PREDNISONE 20 MG TABLET 2. Cellulitis of skin - ICD9: 682.9, ICD10: L03.90 - as above. Finish out antibiotic today just in case. Call if symptoms worsen at all or if not better in one to two weeks 3. Essential hypertension, benign - ICD9: 401.1, ICD10: I10 - good control - Continue current medication(s) - Goal of BP <140/90 4. Cancer of upper lobe of left lung (HCC) - ICD9: 162.3, ICD10: C34.12 - per oncology 5. Edema, unspecified type - ICD9: 782.3, ICD10: R60.9 - looks improved. Ct of abdomen will make sure nothing is obstructing the right leg. 6. Hypercalcemia - ICD9: 275.42, ICD10: E83.52 - will discuss with oncology. 7. Elevated alkaline phosphatase level - ICD9: 790.5, ICD10: R74.8 - check ct as above.l 8. Elevated liver enzymes - ICD9: 790.5, ICD10: R74.8 - liver alk phos is up. Will check ct of liver. Will notify heme onc Juan Mcdaniel MD RTO in three months and prn. CNOV Observed: 07/04/2018 Status: COMPLETED Source: [place] 9:40 AM [facility] REPOSITORY [facility] CECILE VALLEJO ([id number]) 1945 F Date Time Provider Department 07/04/18 9:40 AM JUAN MCDANIEL FAMPWS During your visit today, we recorded the following information about you: Temperature Pulse Respiration Blood pressure 98.2 degrees 84/minute 18/minute 138/72 Brynn Landaverde Ma 07/04/2018 9:51 AM Signed CELLULITIS: Patient has finished the prednisone. She has about 3-4 tablets of the antibiotic left. The itching has resolved. Some of the swelling and redness has subsided. Juan Mcdaniel MD 07/04/2018 10:41 AM Signed Patient presents with: Recheck: cellulitis HPI: Patient presents today for office visit for followup. She has a few antibiotics left did well with the prednisone. Overall is doing better. Rash and edema of both leg and back are much better. No itching. No fever or chills. Overall doing much better. Reviewed labs. Her calcium is still up. Her liver alk phos remains up. She is scheduled for a ct of her abd on 07/14 No stomach pain, itching or nausea or vomiting. Her calcium remains elevated. Her vit d and parathyroid are normal. ? Related to malignancy. Will discuss with oncology. Component Latest Ref Rng AND Units 06/26/2018 07/03/2018 WBC 3.70 - 11.00 k/uL 4.81 RBC 3.90 - 5.20 m/uL 4.93 Hemoglobin 11.5 - 15.5 g/dL 15.5 Hematocrit 36.0 - 46.0 % 48.7 (H) MCV 80.0 - 100.0 fL 98.8 MCH 26.0 - 34.0 pG 31.4 MCHC 30.5 - 36.0 g/dL 31.8 RDW-CV 11.5 - 15.0 % 13.6 Platelet Count 150 - 400 k/uL 258 MPV 9.0 - 12.7 fL 9.9 Neut% % 62.2 Abs Neut (ANC) 1.45 - 7.50 k/uL 2.98 Lymph% % 23.5 Abs Lymph 1.00 - 4.00 k/uL 1.13 [place]% % 8.7 Abs [place] <0.87 k/uL 0.42 Eosin% % 4.8 Abs Eosin <0.46 k/uL 0.23 Baso% % 0.8 Abs Baso <0.11 k/uL 0.04 Nucleated Reds 0 /100 WBC 0.0 Absolute nRBC <0.01 k/uL <0.01 Diff Type Auto Diff Glucose 74 - 99 mg/dL 96 98 BUN 7 - 21 mg/dL 3 (L) 5 (L) Creatinine 0.58 - 0.96 mg/dL 0.62 0.57 (L) Sodium 136 - 144 mmol/L 133 (L) 134 (L) Potassium 3.7 - 5.1 mmol/L 3.5 (L) 3.5 (L) Chloride 97 - 105 mmol/L 92 (L) 89 (L) CO2 22 - 30 mmol/L 27 31 (H) Anion Gap 9 - 18 mmol/L 14 14 Calcium 8.5 - 10.2 mg/dL 9.9 9.8 eGFR- >60 >60 eGFR-All Other Races . >60 >60 Albumin 3.9 - 4.9 g/dL 4.1 Bilirubin, Total 0.2 - 1.3 mg/dL 1.6 (H) Bilirubin, Conjug <0.2 mg/dL 0.6 (H) Alkaline Phosphatase 32 - 117 U/L 119 (H) AST 13 - 35 U/L 39 (H) ALT 7 - 38 U/L 29 Protein, Total 6.3 - 8.0 g/dL 6.5 Alkaline Phosphatase (ALKISO) 32 - 117 U/L 127 (H) Alk Phos Bone % 10.7 - 68.3 % 29.5 Bone Fraction 12.0 - 50.0 U/L 37.5 Alk Phos Liver % 26.0 - 86.2 % 66.2 Liver Fraction 15.0 - 66.0 U/L 84.1 (H) Alk Phos Intestine % 0.0 - 24.2 % 4.4 Intestine Fraction 0.0 - 15.3 U/L 5.6 Hep A Ab, IgM Negative Negative Hep B Surface Ag Negative Negative HCV RNA by PCR IU/mL HCV RNA not detected by PCR. Hep B Core Ab, IgM Negative Negative Ionized Calcium 1.08 - 1.30 mmol/L 1.31 (H) 1.37 (H) Normalized CAlcium 1.08 - 1.30 mmol/L 1.31 (H) 1.35 (H) PTH, Intact 15 - 65 pg/mL 47 Vitamin D 25 Hydroxy 31.0 - 80.0 ng/mL 30.9 (L) MEDICATIONS: Current Outpatient Prescriptions: clindamycin (CLEOCIN) 150 mg capsule Take 1 capsule by mouth four times daily. tiotropium bromide (SPIRIVA RESPIMAT) 2.5 mcg/actuation mist Inhale 2 Puffs as instructed once daily. ranitidine (ZANTAC 75) 75 mg tablet Take 1 tablet by mouth twice daily. carvedilol (COREG) 25 mg tablet Take 25 mg by mouth twice daily. furosemide (LASIX) 40 mg tablet Take 40 mg by mouth once daily. rivaroxaban (XARELTO) 20 mg tablet Take 1 tablet by mouth daily with dinner. quinapril (ACCUPRIL) 20 mg tablet Take 1 tablet by mouth twice daily. triamcinolone (KENALOG) 0.025 % cream Apply 1 application to affected area twice daily. fluticasone-salmeterol (ADVAIR DISKUS) 250-50 mcg/dose dsdv Inhale 1 Puff as instructed twice daily. Rinse and gargle mouth after use with water. albuterol HFA (VENTOLIN HFA) 90 mcg/actuation inhaler Inhale 2 Puffs as instructed every 4 hours as needed for Wheezing/Shortness of Breath. emollient combination (PRUTECT) emul APPLY 1 APPLICATION TO AFFECTED AREA NEEDED B Complex Vitamins (B-50 COMPLEX) TbER Take 1 tablet by mouth once daily. Vitamin E 400 unit tab Take 1 tablet by mouth once daily. ACETAMINOPHEN 500 MG TAB Take one(1) tablet every four(4) hours prn. No current facility-administered medications for this visit. ALLERGIES: ALLERGIES Allergen Reactions - Sulfa (Sulfonamide * Rash SOME SULFA DRUGS Specifically reacted to topical sulfa cream, pt stated. - Codeine Severe headaches - Combivent [Ipratrop* Swelling - Doxycycline Intolerance Stomach pains..it makes me double over, pt stated. - Dulera [Mometasone-* Intolerance tachycardia - Gabapentin Other: See Comments Loss of balance - Hctz [Amiloride-Hyd* blurry vision, fatigue - Iodine - Mercurochrome [Merb* Intolerance Wound becomes infected, inflamed AND hyper-reactionary, pt stated. - Merthiolate [Other] - Metoprolol Cough - Prednisone messed up stomach patient states is able to take in small divided doses - Qvar [Beclomethason* Other: See Comments Reports coughing, headache, dizziness, nausea, wheezing. - Tamiflu [Oseltamivi* Intolerance Reported abdominal pain, changes in breathing, and severe dry mouth - Tape [Other] Rash - Advil [Ibuprofen] Intolerance severe headache PAST MEDICAL HISTORY Diagnosis Date - Benign neoplasm of colon - COPD (chronic obstructive pulmonary disease) (HCC) - History of breast cancer - Neoplasm of unspecified nature of breast left 13yrs ago/right 5yrs LEFT AND RIGHT - Unspecified essential hypertension PAST SURGICAL HISTORY Procedure Laterality Date - BREAST BIOPSY W/ULTRASOUND GUIDANCE 06/10/14 U/S needle core upper inner right breast - COLONOS W/REM POLYP SNARE 03/04/09 Sigmoid polyp and diverticulosis - LIGATE FALLOPIAN TUBE 1987 Tubal ligation - MASTECTOMY 1993 Left - PAST SURGICAL HISTORY OF 2003 right lumpectomy - REM LESION NEC,HND,SCAL 1.1-2.0CM 03/13/06 Infected jacqueline cyst posterior neck - REMOVE PERM CANNULA/CATHETER 07/31/06 Remove right IJ port FAMILY HISTORY Problem Relation Age of Onset - Coronary Artery Disease Mother - Cancer Sister uterine or ovarian (pt not sure) - Cancer Brother , brain cancer Social History Marital status: Spouse name: maria dolores Years of education: 11 Number of children: 3 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 Alcohol use: Yes Comment: rarely Drug use: No Sexual activity: Yes Partners with: Male control/protection: Surgical Comment: tubal ligation Reviewed current medications, allergies, past medical history, surgical history, family history and social history today. REVIEW OF SYSTEMS RESPIRATORY: breathing is much better. no increased cough or congestion. CARDIOVASCULAR: no chest pain or palpitations. GI: Negative for change in bowel habit, heart burn, nausea, vomiting All other reviewed and negative other than HPI. HEALTH MAINTENANCE: Reviewed health maintenance issues today and recommended the following in detail. BP CONTROLLED (<130/80) due on 1964 VITALS: BP 138/72 Pulse 84 Temp 36.8 ?C (98.2 ?F) (Tympanic) Resp 18 Last 4 Encounter Wt Readings: Date: Wt: 06/27/2018 74.4 kg (164 lb) 06/24/2018 75.3 kg (166 lb) 06/18/2018 75.3 kg (166 lb) 04/28/2018 79.6 kg (175 lb 8 oz) PHYSICAL EXAMINATION: General appearance: Well appearing, alert, in no acute distress, well-hydrated, well nourished. Skin: rashes in lower back, both legs is markedly better. Still some mild redness on right leg and lower back. Head: Normocephalic, no masses, lesions, tenderness or abnormalities Lungs: Lungs clear to auscultation. No wheezing, rhonchi, rales Heart: RRR without murmur, gallop, or rubs. No ectopy Abdomen: Normal abdominal exam, Abdomen soft, non-tender. Bowel sounds normal. No masses, organomegaly Extremities: left leg shows no edema. Right leg is much improved in edema. No calf tenderness. PSYCH:Affect normal. Normal speech. Normal eye contact ASSESSMENT/PLAN: 1. Dermatitis - ICD9: 692.9, ICD10: L30.9 (primary diagnosis) - discussed skin care of rash - follow up if symptoms persist or worsen. - Rash dramatically improved with steroids. Will give five additional days. Call if symptoms worsen at all or if not better in one to two weeks - PREDNISONE 20 MG TABLET 2. Cellulitis of skin - ICD9: 682.9, ICD10: L03.90 - as above. Finish out antibiotic today just in case. Call if symptoms worsen at all or if not better in one to two weeks 3. Essential hypertension, benign - ICD9: 401.1, ICD10: I10 - good control - Continue current medication(s) - Goal of BP <140/90 4. Cancer of upper lobe of left lung (HCC) - ICD9: 162.3, ICD10: C34.12 - per oncology 5. Edema, unspecified type - ICD9: 782.3, ICD10: R60.9 - looks improved. Ct of abdomen will make sure nothing is obstructing the right leg. 6. Hypercalcemia - ICD9: 275.42, ICD10: E83.52 - will discuss with oncology. 7. Elevated alkaline phosphatase level - ICD9: 790.5, ICD10: R74.8 - check ct as above.l 8. Elevated liver enzymes - ICD9: 790.5, ICD10: R74.8 - liver alk phos is up. Will check ct of liver. Will notify heme onc Juan Mcdaniel MD RTO in three months and prn. Referring Provider: SELF [[id number]] Allergies As of Date: 07/04/2018 Noted Allergy Reaction SULFA (SULFONAMIDE ANTIBIOTICS) 08/08/2005 2 - Rash Comments: SOME SULFA DRUGS Specifically reacted to topical sulfa cream, pt stated. CODEINE 03/05/2008 Comments: Severe headaches COMBIVENT (IPRATROPIUM-ALBUTEROL) 08/25/2012 7 - Swelling DOXYCYCLINE 08/08/2005 5 - Intolerance Comments: Stomach pains..it makes me double over, pt stated. DULERA (MOMETASONE-FORMOTEROL) 09/03/2012 5 - Intolerance Comments: tachycardia GABAPENTIN 06/16/2014 14 - Other: See Comments Comments: Loss of balance HCTZ (AMILORIDE-HYDROCHLOROTHIAZI*01/19/2009 Comments: blurry vision, fatigue IODINE 08/08/2005 MERCUROCHROME (MERBROMIN) 08/08/2005 5 - Intolerance Comments: Wound becomes infected, inflamed AND hyper- reactionary, pt stated. MERTHIOLATE [Other] 08/08/2005 METOPROLOL 07/17/2013 3 - Cough PREDNISONE 01/19/2009 Comments: messed up stomach patient states is able to take in small divided doses QVAR (BECLOMETHASONE) 03/08/2016 14 - Other: See Comments Comments: Reports coughing, headache, dizziness, nausea, wheezing. TAMIFLU (OSELTAMIVIR) 12/30/2017 5 - Intolerance Comments: Reported abdominal pain, changes in breathing, and severe dry mouth tape [Other] 03/28/2006 2 - Rash ADVIL (IBUPROFEN) 08/08/2005 5 - Intolerance Comments: severe headache Date Reviewed: 07/04/2018 Reviewed by: Brynn Landaverde Ma - Fully Assessed Reason for Visit: Recheck [92] Cmt: cellulitis Primary Visit Diagnosis:Dermatitis [L30.9] Other Visit Diagnoses:Cellulitis of skin [L03.90] Essential hypertension, benign [I10] Cancer of upper lobe of left lung (HCC) [C34.12] Edema, unspecified type [R60.9] Hypercalcemia [E83.52] Elevated alkaline phosphatase level [R74.8] Elevated liver enzymes [R74.8] Order(s):predniSONE (DELTASONE) 20 mg tabletTake 1 tablet by mouth once daily for 5 days. Take daily with food.Disp: 5 tabletRfl: 0 Prescriptions as of 07/04/2018 Sig: CLINDAMYCIN HCL 150 MG CAPSULE Take 1 capsule by mouth four * TIOTROPIUM BROMIDE 2.5 MCG/AC* Inhale 2 Puffs as instructed * RANITIDINE 75 MG TABLET Take 1 tablet by mouth twice * CARVEDILOL 25 MG TABLET Take 25 mg by mouth twice lynda* FUROSEMIDE 40 MG TABLET Take 40 mg by mouth once yoli* RIVAROXABAN 20 MG TABLET Take 1 tablet by mouth daily * QUINAPRIL 20 MG TABLET Take 1 tablet by mouth twice * TRIAMCINOLONE ACETONIDE 0.025* Apply 1 application to affect* FLUTICASONE 250 MCG-SALMETERO* Inhale 1 Puff as instructed t* ALBUTEROL SULFATE HFA 90 MCG/* Inhale 2 Puffs as instructed * EMOLLIENT COMBINATION NO.10 T* APPLY 1 APPLICATION TO AFFECT* VITAMIN B COMPLEX ER TABLET,E* Take 1 tablet by mouth once d* VITAMIN E 400 UNIT TABLET Take 1 tablet by mouth once d* ACETAMINOPHEN 500 MG TABLET Take one(1) tablet every four* PREDNISONE 20 MG TABLET Take 1 tablet by mouth once d* Problem List As Of Date 07/04/2018 Noted Resolved Breast neoplasm [D49.3] Priority: B More... Essential Hypertension, Benign [I10] INVALID FOR* Priority: A Osteoarth NOS-Unspec [M19.90] INVALID FOR* Malig Yayo Lymph-Axilla/Arm [C77.3] INVALID FOR*07/10/2010 Sebaceous Cyst [L72.3] INVALID FOR*07/10/2010 Unspecified Pleural Effusion [J90] INVALID FOR*07/10/2010 SCREEN (SEE ALSO ADMISSION) CANCER - COLON [Z*INVALID FOR*07/10/2010 Emphysema of lung (HCC) [J43.9] INVALID FOR* Priority: A Tobacco Use Disorder [F17.200] INVALID FOR* POLYP COLON [D12.6] INVALID FOR* Priority: B More... DIVERTICULOSIS [K57.30] INVALID FOR*02/01/2017 Priority: B Routine general medical examination at a health*INVALID FOR*08/01/2012 Class: Chronic More... Routine gynecological examination [Z01.419] INVALID FOR*08/01/2012 Class: Chronic More... RIB LESION, UNCERTAIN BEHAVIOR [M99.9] INVALID FOR*08/14/2016 Priority: A More... Mixed Hyperlipidemia [E78.2] INVALID FOR* Priority: A Back pain [M54.9] INVALID FOR* Priority: B Personal history of breast cancer [Z85.3] INVALID FOR* COPD (chronic obstructive pulmonary disease) (H* 08/14/2016 Lumbar radiculopathy [M54.16] INVALID FOR* DDD (degenerative disc disease), lumbar [M51.36]INVALID FOR* Lumbar scoliosis [M41.9] INVALID FOR* Persistent atrial fibrillation (HCC) [I48.1] INVALID FOR* More... Mass of upper lobe of lung [R91.8] INVALID FOR*06/18/2018 More... Acute systolic CHF (congestive heart failure) (*INVALID FOR* More... Cancer of upper lobe of left lung (HCC) [C34.12]INVALID FOR* Visit Notes: >> Brynn Wallmani Aguilar SatJul 04, 2018 9:47 AM Status: Signed CELLULITIS: Patient has finished the prednisone. She has about 3-4 tablets of the antibiotic left. The itching has resolved. Some of the swelling and redness has subsided. Prescriptions ordered this encounter Disp Refills Start End PREDNISONE 20 MG TABLET 5 ta* 0 07/04/2018 07/09/2018 Route: ORAL Sig: Take 1 tablet by mouth once daily for 5 days. Take daily with food. Medications Discontinued During This Encounter predniSONE (DELTASONE) 10 mg tablet 5 ta* 0 06/27/2018 07/04/2018 Route: ORAL Sig: Take 1 tablet by mouth once daily. Disc: Course of therapy completed Disposition: Return in about 3 months (around 10/03/2018). Follow-up and Disposition History Recorded Encounter Status:Closed by JUAN MCDANIEL MD on 07/04/18 BASIC METABOLIC PANL Collected: 07/03/2018 Status: F Source: [place] 8:26 AM [facility] [place] REPOSITORY TYPE CODE TESTS RESULT OUT OF REFERENCE UNITS RANGE LAB GLU 74-99 mg/dL Glucose 98 Result Comment: The [place] Diabetes Association (ADA) provides guidance for cutoff values for fasting glucose and random glucose. The ADA defines fasting as no caloric intake for at least 8 hours. Fas ting plasma glucose results between 100 to 125 mg/dL indicate increased risk for diabetes (prediabetes). Fasting plasma glucose results greater than or equal to 126 mg/dL meet the criteria for diagnosis of diabetes. In the absence of unequivocal hyperglycemia, results should be confirmed by repeat testing. In a patient with classic symptoms of hyperglycemia or hyperglycemic crisis, random plasma glucose results greater than or equal to 200 mg/dL meet the criteria for diagnosis of diabetes. Reference: Standards of Medical Care in Diabetes 2016, [place] Diabetes Association. Diabetes Care. 2016.39(Suppl 1). LAB BUN 7-21 mg/dL Low BUN 5 LAB CRET 0.58-0.96 mg/dL Low Creatinine 0.57 LAB NA 136-144 mmol/L Low Sodium 134 LAB K 3.7-5.1 mmol/L Low Potassium 3.5 LAB CL 97-105 mmol/L Low Chloride 89 LAB CO2 22-30 mmol/L CO2 High 31 LAB AGAP 9-18 mmol/L Anion Gap 14 LAB CA 8.5-10.2 mg/dL Calcium, Total 9.8 LAB GFRAA eGFR- Amer. >60 LAB GFRNAA . eGFR-All Other Races >60 Result Comment: eGFR (Estimated GFR) Units of measure: mL/min/1.73 meters squared eGFR is derived from the reexpressed MDRD Study equation using the following parameters: serum creatinine, age, gender and race. The creatinine assay has been calibrated to be traceable to IDMS. An eGFR <60 mL/min/1.73m2 for >3 months is consistent with chronic kidney disease. Refer to KDOQI guidelines for clinical interpretation. In patients with unstable renal function, e.g. those with acute kidney injury, the eGFR may not accurately reflect actual GFR. Performed By: #### BMP, ICA #### [facility] [address] [place] [id number] CALCIUM, IONIZED Collected: 07/03/2018 Status: F Source: [place] 8:26 AM [facility] REPOSITORY TYPE CODE TESTS RESULT OUT OF REFERENCE UNITS RANGE LAB ICAL 1.08-1.30 mmol/L High Calcium, 1.37 Ionized Result Comment: Collection tube not filled. Ionized calcium may be falsely decreased. LAB NCA 1.08-1.30 mmol/L Calcium, High Normalized 1.35 Performed By: #### BMP, ICA #### [facility] [address] [place], [place] [id number] PROGRESS Observed: 06/27/2018 Status: COMPLETED Source: [place] 8:48 AM [facility] REPOSITORY HNO ID: [id number] Author: Juan Mcdaniel Service: (none) Author Type: Physician Type: Progress Notes Filed: 06/27/2018 5:38 PM Note Text: Patient presents with: Musculoskeletal Problem: right leg pain Rash HPI: Patient presents today for office visit for follow up. Her right leg is not really much different. Her left leg is now having a rash without swelling on the left. Also now has a rash on her trunk on the back. No fever or chills. She states she may have had a little bit of rash on left leg before being placed on the clindamycin. Rash on the back started Saturday but she did not say much about it. She did start drinking an acia containing juice which may have started some of the rash. Has now stopped it. No other new rashes. No real pain in the leg. Rash predates the antibiotics. labs are not completely done yet. Potassium is minimally low and calcium is borderline high. She is on a multivitamin that has calcium in it. Will stop it before working up further. Has issues with steroids but can take them in small dose. Rashes itch. Component Latest Ref Rng AND Units 06/26/2018 WBC 3.70 - 11.00 k/uL 4.81 RBC 3.90 - 5.20 m/uL 4.93 Hemoglobin 11.5 - 15.5 g/dL 15.5 Hematocrit 36.0 - 46.0 % 48.7 (H) MCV 80.0 - 100.0 fL 98.8 MCH 26.0 - 34.0 pG 31.4 MCHC 30.5 - 36.0 g/dL 31.8 RDW-CV 11.5 - 15.0 % 13.6 Platelet Count 150 - 400 k/uL 258 MPV 9.0 - 12.7 fL 9.9 Neut% % 62.2 Abs Neut (ANC) 1.45 - 7.50 k/uL 2.98 Lymph% % 23.5 Abs Lymph 1.00 - 4.00 k/uL 1.13 [place]% % 8.7 Abs [place] <0.87 k/uL 0.42 Eosin% % 4.8 Abs Eosin <0.46 k/uL 0.23 Baso% % 0.8 Abs Baso <0.11 k/uL 0.04 Nucleated Reds 0 /100 WBC 0.0 Absolute nRBC <0.01 k/uL <0.01 Diff Type Auto Diff Glucose 74 - 99 mg/dL 96 BUN 7 - 21 mg/dL 3 (L) Creatinine 0.58 - 0.96 mg/dL 0.62 Sodium 136 - 144 mmol/L 133 (L) Potassium 3.7 - 5.1 mmol/L 3.5 (L) Chloride 97 - 105 mmol/L 92 (L) CO2 22 - 30 mmol/L 27 Anion Gap 9 - 18 mmol/L 14 Calcium 8.5 - 10.2 mg/dL 9.9 eGFR- >60 eGFR-All Other Races . >60 Albumin 3.9 - 4.9 g/dL 4.1 Bilirubin, Total 0.2 - 1.3 mg/dL 1.6 (H) Bilirubin, Conjug <0.2 mg/dL 0.6 (H) Alkaline Phosphatase 32 - 117 U/L 119 (H) AST 13 - 35 U/L 39 (H) ALT 7 - 38 U/L 29 Protein, Total 6.3 - 8.0 g/dL 6.5 Hep A Ab, IgM Negative Negative Hep B Surface Ag Negative Negative HCV RNA by PCR IU/mL HCV RNA not detected by PCR. Hep B Core Ab, IgM Negative Negative Ionized Calcium 1.08 - 1.30 mmol/L 1.31 (H) Normalized CAlcium 1.08 - 1.30 mmol/L 1.31 (H) Alkaline Phosphatase (ALKISO) 32 - 117 U/L 127 (H) PTH, Intact 15 - 65 pg/mL 47 Vitamin D 25 Hydroxy 31.0 - 80.0 ng/mL 30.9 (L) MEDICATIONS: Current Outpatient Prescriptions: clindamycin (CLEOCIN) 150 mg capsule Take 1 capsule by mouth four times daily. tiotropium bromide (SPIRIVA RESPIMAT) 2.5 mcg/actuation mist Inhale 2 Puffs as instructed once daily. ranitidine (ZANTAC 75) 75 mg tablet Take 1 tablet by mouth twice daily. carvedilol (COREG) 25 mg tablet Take 25 mg by mouth twice daily. furosemide (LASIX) 40 mg tablet Take 40 mg by mouth once daily. rivaroxaban (XARELTO) 20 mg tablet Take 1 tablet by mouth daily with dinner. quinapril (ACCUPRIL) 20 mg tablet Take 1 tablet by mouth twice daily. triamcinolone (KENALOG) 0.025 % cream Apply 1 application to affected area twice daily. fluticasone-salmeterol (ADVAIR DISKUS) 250-50 mcg/dose dsdv Inhale 1 Puff as instructed twice daily. Rinse and gargle mouth after use with water. albuterol HFA (VENTOLIN HFA) 90 mcg/actuation inhaler Inhale 2 Puffs as instructed every 4 hours as needed for Wheezing/Shortness of Breath. emollient combination (PRUTECT) emul APPLY 1 APPLICATION TO AFFECTED AREA NEEDED B Complex Vitamins (B-50 COMPLEX) TbER Take 1 tablet by mouth once daily. Vitamin E 400 unit tab Take 1 tablet by mouth once daily. MULTIVITAMIN ORAL Take 1 tablet by mouth once daily. ACETAMINOPHEN 500 MG TAB Take one(1) tablet every four(4) hours prn. No current facility-administered medications for this visit. ALLERGIES: ALLERGIES Allergen Reactions - Sulfa (Sulfonamide * Rash SOME SULFA DRUGS Specifically reacted to topical sulfa cream, pt stated. - Codeine Severe headaches - Combivent [Ipratrop* Swelling - Doxycycline Intolerance Stomach pains..it makes me double over, pt stated. - Dulera [Mometasone-* Intolerance tachycardia - Gabapentin Other: See Comments Loss of balance - Hctz [Amiloride-Hyd* blurry vision, fatigue - Iodine - Mercurochrome [Merb* Intolerance Wound becomes infected, inflamed AND hyper-reactionary, pt stated. - Merthiolate [Other] - Metoprolol Cough - Prednisone messed up stomach patient states is able to take in small divided doses - Qvar [Beclomethason* Other: See Comments Reports coughing, headache, dizziness, nausea, wheezing. - Tamiflu [Oseltamivi* Intolerance Reported abdominal pain, changes in breathing, and severe dry mouth - Tape [Other] Rash - Advil [Ibuprofen] Intolerance severe headache PAST MEDICAL HISTORY Diagnosis Date - Benign neoplasm of colon - COPD (chronic obstructive pulmonary disease) (HCC) - History of breast cancer - Neoplasm of unspecified nature of breast left 13yrs ago/right 5yrs LEFT AND RIGHT - Unspecified essential hypertension PAST SURGICAL HISTORY Procedure Laterality Date - BREAST BIOPSY W/ULTRASOUND GUIDANCE 06/10/14 U/S needle core upper inner right breast - COLONOS W/REM POLYP SNARE 03/04/09 Sigmoid polyp and diverticulosis - LIGATE FALLOPIAN TUBE 1987 Tubal ligation - MASTECTOMY 1993 Left - PAST SURGICAL HISTORY OF 2003 right lumpectomy - REM LESION NEC,HND,SCAL 1.1-2.0CM 03/13/06 Infected jacqueline cyst posterior neck - REMOVE PERM CANNULA/CATHETER 07/31/06 Remove right IJ port FAMILY HISTORY Problem Relation Age of Onset - Coronary Artery Disease Mother - Cancer Sister uterine or ovarian (pt not sure) - Cancer Brother , brain cancer Social History Marital status: Spouse name: maria dolores Years of education: 11 Number of children: 3 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 Alcohol use: Yes Comment: rarely Drug use: No Sexual activity: Yes Partners with: Male control/protection: Surgical Comment: tubal ligation Reviewed current medications, allergies, past medical history, surgical history, family history and social history today. REVIEW OF SYSTEMS All other reviewed and negative other than HPI. HEALTH MAINTENANCE: Reviewed health maintenance issues today and recommended the following in detail. BP CONTROLLED (<130/80) due on 1964 VITALS: BP 128/80 Pulse 100 Temp 36.3 ?C (97.4 ?F) (Tympanic) Wt 74.4 kg (164 lb) SpO2 97% BMI 30.49 kg/m? Last 4 Encounter Wt Readings: Date: Wt: 06/27/2018 74.4 kg (164 lb) 06/24/2018 75.3 kg (166 lb) 06/18/2018 75.3 kg (166 lb) 04/28/2018 79.6 kg (175 lb 8 oz) PHYSICAL EXAMINATION: General appearance: Well appearing, alert, in no acute distress, well-hydrated, well nourished. Skin: right leg is still edematous. It is slightly less red. However now has red patches that itch on her left muñoz and a large patch on her back. Not tender and not warm. Slightly raised. Neck: Supple, no adenopathy; thyroid symmetric, normal size, no bruits Lungs: Lungs clear to auscultation. No wheezing, rhonchi, rales Heart: RRR without murmur, gallop, or rubs. No ectopy Abdomen: Normal abdominal exam, Abdomen soft, non-tender. Bowel sounds normal. No masses, organomegaly Extremities: No deformities, one pluse edema of leg. No palpable cords, skin discoloration, clubbing or cyanosis. Good capillary refill. ASSESSMENT/PLAN: 1. Hypercalcemia - ICD9: 275.42, ICD10: E83.52 (primary diagnosis) - stop multivitamin. Recheck labs in one week. - BASIC METABOLIC PNL - CALCIUM IONIZED B 2. Hypokalemia - ICD9: 276.8, ICD10: E87.6 - as above. - BASIC METABOLIC PNL - CALCIUM IONIZED B 3. Cellulitis of right lower extremity - ICD9: 682.6, ICD10: L03.115 - continue clindamycin. - Red flags for re-assessment reviewed with patient in detail. - Call if symptoms worsen at all or if not better in one to two weeks 4. Dermatitis - ICD9: 692.9, ICD10: L30.9 - ? Could some of this actually not be cellulitic, left muñoz and back do not appear to be. Discussed risks and benefits of new medication with the patient. Advised them to call if any side effects or questions. - PREDNISONE 10 MG TABLET 5. Essential hypertension, benign - ICD9: 401.1, ICD10: I10 - good control - Continue current medication(s) - Goal of BP <140/90 6. Persistent atrial fibrillation (HCC) - ICD9: 427.31, ICD10: I48.1 - continue meds. Juan Mcdaniel MD RTO in one week and prn. ROSALINA Observed: 06/27/2018 Status: COMPLETED Source: [place] 8:20 AM [facility] REPOSITORY Office Visit (FAMPWS) CECILE VALLEJO ([id number]) 1945 F Date Time Provider Department 06/27/18 8:20 AM JUAN MCDANIELWS During your visit today, we recorded the following information about you: Temperature Pulse Blood pressure Weight 97.4 degrees 100/minute 128/80 74.4 kg Janetgianna Francemary alice HOLGUIN 06/27/2018 8:27 AM Signed Still with swelling and redness to right lower leg. Now with rash on back and on her left foot. Itching to left muñoz and area is red. Using OTC Benadryl pills and cream. Has also been using her triamcinalone cream. Did buy different juice that has Acai levy in it and wonders if allergy to it so stopped drinking. Juan Mcdaniel MD 06/27/2018 5:38 PM Signed Patient presents with: Musculoskeletal Problem: right leg pain Rash HPI: Patient presents today for office visit for follow up. Her right leg is not really much different. Her left leg is now having a rash without swelling on the left. Also now has a rash on her trunk on the back. No fever or chills. She states she may have had a little bit of rash on left leg before being placed on the clindamycin. Rash on the back started Saturday but she did not say much about it. She did start drinking an acia containing juice which may have started some of the rash. Has now stopped it. No other new rashes. No real pain in the leg. Rash predates the antibiotics. labs are not completely done yet. Potassium is minimally low and calcium is borderline high. She is on a multivitamin that has calcium in it. Will stop it before working up further. Has issues with steroids but can take them in small dose. Rashes itch. Component Latest Ref Rng AND Units 06/26/2018 WBC 3.70 - 11.00 k/uL 4.81 RBC 3.90 - 5.20 m/uL 4.93 Hemoglobin 11.5 - 15.5 g/dL 15.5 Hematocrit 36.0 - 46.0 % 48.7 (H) MCV 80.0 - 100.0 fL 98.8 MCH 26.0 - 34.0 pG 31.4 MCHC 30.5 - 36.0 g/dL 31.8 RDW-CV 11.5 - 15.0 % 13.6 Platelet Count 150 - 400 k/uL 258 MPV 9.0 - 12.7 fL 9.9 Neut% % 62.2 Abs Neut (ANC) 1.45 - 7.50 k/uL 2.98 Lymph% % 23.5 Abs Lymph 1.00 - 4.00 k/uL 1.13 [place]% % 8.7 Abs [place] <0.87 k/uL 0.42 Eosin% % 4.8 Abs Eosin <0.46 k/uL 0.23 Baso% % 0.8 Abs Baso <0.11 k/uL 0.04 Nucleated Reds 0 /100 WBC 0.0 Absolute nRBC <0.01 k/uL <0.01 Diff Type Auto Diff Glucose 74 - 99 mg/dL 96 BUN 7 - 21 mg/dL 3 (L) Creatinine 0.58 - 0.96 mg/dL 0.62 Sodium 136 - 144 mmol/L 133 (L) Potassium 3.7 - 5.1 mmol/L 3.5 (L) Chloride 97 - 105 mmol/L 92 (L) CO2 22 - 30 mmol/L 27 Anion Gap 9 - 18 mmol/L 14 Calcium 8.5 - 10.2 mg/dL 9.9 eGFR- >60 eGFR-All Other Races . >60 Albumin 3.9 - 4.9 g/dL 4.1 Bilirubin, Total 0.2 - 1.3 mg/dL 1.6 (H) Bilirubin, Conjug <0.2 mg/dL 0.6 (H) Alkaline Phosphatase 32 - 117 U/L 119 (H) AST 13 - 35 U/L 39 (H) ALT 7 - 38 U/L 29 Protein, Total 6.3 - 8.0 g/dL 6.5 Hep A Ab, IgM Negative Negative Hep B Surface Ag Negative Negative HCV RNA by PCR IU/mL HCV RNA not detected by PCR. Hep B Core Ab, IgM Negative Negative Ionized Calcium 1.08 - 1.30 mmol/L 1.31 (H) Normalized CAlcium 1.08 - 1.30 mmol/L 1.31 (H) Alkaline Phosphatase (ALKISO) 32 - 117 U/L 127 (H) PTH, Intact 15 - 65 pg/mL 47 Vitamin D 25 Hydroxy 31.0 - 80.0 ng/mL 30.9 (L) MEDICATIONS: Current Outpatient Prescriptions: clindamycin (CLEOCIN) 150 mg capsule Take 1 capsule by mouth four times daily. tiotropium bromide (SPIRIVA RESPIMAT) 2.5 mcg/actuation mist Inhale 2 Puffs as instructed once daily. ranitidine (ZANTAC 75) 75 mg tablet Take 1 tablet by mouth twice daily. carvedilol (COREG) 25 mg tablet Take 25 mg by mouth twice daily. furosemide (LASIX) 40 mg tablet Take 40 mg by mouth once daily. rivaroxaban (XARELTO) 20 mg tablet Take 1 tablet by mouth daily with dinner. quinapril (ACCUPRIL) 20 mg tablet Take 1 tablet by mouth twice daily. triamcinolone (KENALOG) 0.025 % cream Apply 1 application to affected area twice daily. fluticasone-salmeterol (ADVAIR DISKUS) 250-50 mcg/dose dsdv Inhale 1 Puff as instructed twice daily. Rinse and gargle mouth after use with water. albuterol HFA (VENTOLIN HFA) 90 mcg/actuation inhaler Inhale 2 Puffs as instructed every 4 hours as needed for Wheezing/Shortness of Breath. emollient combination (PRUTECT) emul APPLY 1 APPLICATION TO AFFECTED AREA NEEDED B Complex Vitamins (B-50 COMPLEX) TbER Take 1 tablet by mouth once daily. Vitamin E 400 unit tab Take 1 tablet by mouth once daily. MULTIVITAMIN ORAL Take 1 tablet by mouth once daily. ACETAMINOPHEN 500 MG TAB Take one(1) tablet every four(4) hours prn. No current facility-administered medications for this visit. ALLERGIES: ALLERGIES Allergen Reactions - Sulfa (Sulfonamide * Rash SOME SULFA DRUGS Specifically reacted to topical sulfa cream, pt stated. - Codeine Severe headaches - Combivent [Ipratrop* Swelling - Doxycycline Intolerance Stomach pains..it makes me double over, pt stated. - Dulera [Mometasone-* Intolerance tachycardia - Gabapentin Other: See Comments Loss of balance - Hctz [Amiloride-Hyd* blurry vision, fatigue - Iodine - Mercurochrome [Merb* Intolerance Wound becomes infected, inflamed AND hyper-reactionary, pt stated. - Merthiolate [Other] - Metoprolol Cough - Prednisone messed up stomach patient states is able to take in small divided doses - Qvar [Beclomethason* Other: See Comments Reports coughing, headache, dizziness, nausea, wheezing. - Tamiflu [Oseltamivi* Intolerance Reported abdominal pain, changes in breathing, and severe dry mouth - Tape [Other] Rash - Advil [Ibuprofen] Intolerance severe headache PAST MEDICAL HISTORY Diagnosis Date - Benign neoplasm of colon - COPD (chronic obstructive pulmonary disease) (HCC) - History of breast cancer - Neoplasm of unspecified nature of breast left 13yrs ago/right 5yrs LEFT AND RIGHT - Unspecified essential hypertension PAST SURGICAL HISTORY Procedure Laterality Date - BREAST BIOPSY W/ULTRASOUND GUIDANCE 06/10/14 U/S needle core upper inner right breast - COLONOS W/REM POLYP SNARE 03/04/09 Sigmoid polyp and diverticulosis - LIGATE FALLOPIAN TUBE 1987 Tubal ligation - MASTECTOMY 1993 Left - PAST SURGICAL HISTORY OF 2003 right lumpectomy - REM LESION NEC,HND,SCAL 1.1-2.0CM 03/13/06 Infected jacqueline cyst posterior neck - REMOVE PERM CANNULA/CATHETER 07/31/06 Remove right IJ port FAMILY HISTORY Problem Relation Age of Onset - Coronary Artery Disease Mother - Cancer Sister uterine or ovarian (pt not sure) - Cancer Brother , brain cancer Social History Marital status: Spouse name: maria dolores Years of education: 11 Number of children: 3 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 Alcohol use: Yes Comment: rarely Drug use: No Sexual activity: Yes Partners with: Male control/protection: Surgical Comment: tubal ligation Reviewed current medications, allergies, past medical history, surgical history, family history and social history today. REVIEW OF SYSTEMS All other reviewed and negative other than HPI. HEALTH MAINTENANCE: Reviewed health maintenance issues today and recommended the following in detail. BP CONTROLLED (<130/80) due on 1964 VITALS: BP 128/80 Pulse 100 Temp 36.3 ?C (97.4 ?F) (Tympanic) Wt 74.4 kg (164 lb) SpO2 97% BMI 30.49 kg/m? Last 4 Encounter Wt Readings: Date: Wt: 06/27/2018 74.4 kg (164 lb) 06/24/2018 75.3 kg (166 lb) 06/18/2018 75.3 kg (166 lb) 04/28/2018 79.6 kg (175 lb 8 oz) PHYSICAL EXAMINATION: General appearance: Well appearing, alert, in no acute distress, well-hydrated, well nourished. Skin: right leg is still edematous. It is slightly less red. However now has red patches that itch on her left muñoz and a large patch on her back. Not tender and not warm. Slightly raised. Neck: Supple, no adenopathy; thyroid symmetric, normal size, no bruits Lungs: Lungs clear to auscultation. No wheezing, rhonchi, rales Heart: RRR without murmur, gallop, or rubs. No ectopy Abdomen: Normal abdominal exam, Abdomen soft, non-tender. Bowel sounds normal. No masses, organomegaly Extremities: No deformities, one pluse edema of leg. No palpable cords, skin discoloration, clubbing or cyanosis. Good capillary refill. ASSESSMENT/PLAN: 1. Hypercalcemia - ICD9: 275.42, ICD10: E83.52 (primary diagnosis) - stop multivitamin. Recheck labs in one week. - BASIC METABOLIC PNL - CALCIUM IONIZED B 2. Hypokalemia - ICD9: 276.8, ICD10: E87.6 - as above. - BASIC METABOLIC PNL - CALCIUM IONIZED B 3. Cellulitis of right lower extremity - ICD9: 682.6, ICD10: L03.115 - continue clindamycin. - Red flags for re-assessment reviewed with patient in detail. - Call if symptoms worsen at all or if not better in one to two weeks 4. Dermatitis - ICD9: 692.9, ICD10: L30.9 - ? Could some of this actually not be cellulitic, left muñoz and back do not appear to be. Discussed risks and benefits of new medication with the patient. Advised them to call if any side effects or questions. - PREDNISONE 10 MG TABLET 5. Essential hypertension, benign - ICD9: 401.1, ICD10: I10 - good control - Continue current medication(s) - Goal of BP <140/90 6. Persistent atrial fibrillation (HCC) - ICD9: 427.31, ICD10: I48.1 - continue meds. Juan Mcdaniel MD RTO in one week and prn. Referring Provider: SELF [[id number]] Allergies As of Date: 06/27/2018 Noted Allergy Reaction SULFA (SULFONAMIDE ANTIBIOTICS) 08/08/2005 2 - Rash Comments: SOME SULFA DRUGS Specifically reacted to topical sulfa cream, pt stated. CODEINE 03/05/2008 Comments: Severe headaches COMBIVENT (IPRATROPIUM-ALBUTEROL) 08/25/2012 7 - Swelling DOXYCYCLINE 08/08/2005 5 - Intolerance Comments: Stomach pains..it makes me double over, pt stated. DULERA (MOMETASONE-FORMOTEROL) 09/03/2012 5 - Intolerance Comments: tachycardia GABAPENTIN 06/16/2014 14 - Other: See Comments Comments: Loss of balance HCTZ (AMILORIDE-HYDROCHLOROTHIAZI*01/19/2009 Comments: blurry vision, fatigue IODINE 08/08/2005 MERCUROCHROME (MERBROMIN) 08/08/2005 5 - Intolerance Comments: Wound becomes infected, inflamed AND hyper- reactionary, pt stated. MERTHIOLATE [Other] 08/08/2005 METOPROLOL 07/17/2013 3 - Cough PREDNISONE 01/19/2009 Comments: messed up stomach patient states is able to take in small divided doses QVAR (BECLOMETHASONE) 03/08/2016 14 - Other: See Comments Comments: Reports coughing, headache, dizziness, nausea, wheezing. TAMIFLU (OSELTAMIVIR) 12/30/2017 5 - Intolerance Comments: Reported abdominal pain, changes in breathing, and severe dry mouth tape [Other] 03/28/2006 2 - Rash ADVIL (IBUPROFEN) 08/08/2005 5 - Intolerance Comments: severe headache Date Reviewed: 06/27/2018 Reviewed by: Janet Rubi LPN - Fully Assessed Reason for Visit: Musculoskeletal Problem [69] Cmt: right leg pain Rash [1087] Primary Visit Diagnosis:Hypercalcemia [E83.52] Other Visit Diagnoses:Hypokalemia [E87.6] Cellulitis of right lower extremity [L03.115] Dermatitis [L30.9] Essential hypertension, benign [I10] Persistent atrial fibrillation (HCC) [I48.1] Order(s):BASIC METABOLIC PNL [SQBMP] Order #: [id number] FUTURE CALCIUM IONIZED B [SQICA] Order #: [id number] FUTURE predniSONE (DELTASONE) 10 mg tabletTake 1 tablet by mouth once daily.Disp: 5 tabletRfl: 0 Prescriptions as of 06/27/2018 Sig: PREDNISONE 10 MG TABLET Take 1 tablet by mouth once d* CLINDAMYCIN HCL 150 MG CAPSULE Take 1 capsule by mouth four * TIOTROPIUM BROMIDE 2.5 MCG/AC* Inhale 2 Puffs as instructed * RANITIDINE 75 MG TABLET Take 1 tablet by mouth twice * CARVEDILOL 25 MG TABLET Take 25 mg by mouth twice lynda* FUROSEMIDE 40 MG TABLET Take 40 mg by mouth once yoli* RIVAROXABAN 20 MG TABLET Take 1 tablet by mouth daily * QUINAPRIL 20 MG TABLET Take 1 tablet by mouth twice * TRIAMCINOLONE ACETONIDE 0.025* Apply 1 application to affect* FLUTICASONE 250 MCG-SALMETERO* Inhale 1 Puff as instructed t* ALBUTEROL SULFATE HFA 90 MCG/* Inhale 2 Puffs as instructed * EMOLLIENT COMBINATION NO.10 T* APPLY 1 APPLICATION TO AFFECT* VITAMIN B COMPLEX ER TABLET,E* Take 1 tablet by mouth once d* VITAMIN E 400 UNIT TABLET Take 1 tablet by mouth once d* ACETAMINOPHEN 500 MG TABLET Take one(1) tablet every four* Problem List As Of Date 06/27/2018 Noted Resolved Breast neoplasm [D49.3] Priority: B More... Essential Hypertension, Benign [I10] INVALID FOR* Priority: A Osteoarth NOS-Unspec [M19.90] INVALID FOR* Malig Yayo Lymph-Axilla/Arm [C77.3] INVALID FOR*07/10/2010 Sebaceous Cyst [L72.3] INVALID FOR*07/10/2010 Unspecified Pleural Effusion [J90] INVALID FOR*07/10/2010 SCREEN (SEE ALSO ADMISSION) CANCER - COLON [Z*INVALID FOR*07/10/2010 Emphysema of lung (HCC) [J43.9] INVALID FOR* Priority: A Tobacco Use Disorder [F17.200] INVALID FOR* POLYP COLON [D12.6] INVALID FOR* Priority: B More... DIVERTICULOSIS [K57.30] INVALID FOR*02/01/2017 Priority: B Routine general medical examination at a health*INVALID FOR*08/01/2012 Class: Chronic More... Routine gynecological examination [Z01.419] INVALID FOR*08/01/2012 Class: Chronic More... RIB LESION, UNCERTAIN BEHAVIOR [M99.9] INVALID FOR*08/14/2016 Priority: A More... Mixed Hyperlipidemia [E78.2] INVALID FOR* Priority: A Back pain [M54.9] INVALID FOR* Priority: B Personal history of breast cancer [Z85.3] INVALID FOR* COPD (chronic obstructive pulmonary disease) (H* 08/14/2016 Lumbar radiculopathy [M54.16] INVALID FOR* DDD (degenerative disc disease), lumbar [M51.36]INVALID FOR* Lumbar scoliosis [M41.9] INVALID FOR* Persistent atrial fibrillation (HCC) [I48.1] INVALID FOR* More... Mass of upper lobe of lung [R91.8] INVALID FOR*06/18/2018 More... Acute systolic CHF (congestive heart failure) (*INVALID FOR* More... Cancer of upper lobe of left lung (HCC) [C34.12]INVALID FOR* Visit Notes: >> Janet Rubi CLINICAL PHLEBOTOMIST SatJun 27, 2018 8:18 AM Status: Signed Still with swelling and redness to right lower leg. Now with rash on back and on her left foot. Itching to left muñoz and area is red. Using OTC Benadryl pills and cream. Has also been using her triamcinalone cream. Did buy different juice that has Acai levy in it and wonders if allergy to it so stopped drinking. Prescriptions ordered this encounter Disp Refills Start End PREDNISONE 10 MG TABLET 5 ta* 0 06/27/2018 Route: ORAL Sig: Take 1 tablet by mouth once daily. Medications Discontinued During This Encounter MULTIVITAMIN ORAL 06/27/2018 Class: Historical Med Route: ORAL Sig: Take 1 tablet by mouth once daily. Disc: Reason for discontinue is not on file. Disposition: Return if symptoms worsen or fail to improve. Follow-up and Disposition History Recorded Encounter Status:Closed by JUAN MCDANIEL MD on 06/27/18 CBC AND DIFFERENTIAL Collected: 06/26/2018 Status: F Source: [place] 9:14 AM [facility] REPOSITORY TYPE CODE TESTS RESULT OUT OF REFERENCE UNITS RANGE LAB WBC 3.70-11.00 k/uL WBC 4.81 LAB RBC 3.90-5.20 m/uL RBC 4.93 LAB HGB 11.5-15.5 g/dL Hemoglobin 15.5 LAB HCT 36.0-46.0 % High Hematocrit 48.7 LAB MCV 80.0-100.0 fL MCV 98.8 LAB MCH 26.0-34.0 pG MCH 31.4 LAB MCHC 30.5-36.0 g/dL MCHC 31.8 LAB RDWCV 11.5-15.0 % RDW-CV 13.6 LAB PLTCT 150-400 k/uL Platelet Count 258 LAB MPV 9.0-12.7 fL MPV 9.9 LAB ANEUT % Neut% 62.2 LAB AANEUT 1.45-7.50 k/uL Abs Neut 2.98 LAB ALYMP % Lymph% 23.5 LAB AALYMP 1.00-4.00 k/uL Abs Lymph 1.13 LAB AMONO % [place]% 8.7 LAB AAMONO <0.87 k/uL Abs [place] 0.42 LAB AEOS % Eosin% 4.8 LAB AAEOS <0.46 k/uL Abs Eosin 0.23 LAB ABASO % Baso% 0.8 LAB AABASO <0.11 k/uL Abs Baso 0.04 LAB AUNRBC 0 /100 WBC NRBCs 0.0 LAB ABNRBC <0.01 k/uL Absolute nRBC <0.01 LAB DTYP DTYPE Auto Diff Performed By: #### CBCDIF, VITD, PTHI, ICA, BMP, HFP, HACRNA #### [facility] [address] [place], [place] [address] VITAMIN D 25 HYDROXY Collected: 06/26/2018 Status: F Source: [place] 9:14 [facility] REPOSITORY TYPE CODE TESTS RESULT OUT OF REFERENCE UNITS RANGE LAB VITD 31.0-80.0 ng/mL Low Vitamin D 25 30.9 Hydroxy Result Comment: Classification of 25 [place] Vitamin D status: Insufficiency/Moderate Deficiency: < or = 30 ng/mL Sufficiency/Optimal Levels: 31 to 80 ng/mL Toxicity: > 100 ng/mL Test performed by chemiluminescent immunoassay. Performed By: #### CBCDIF, VITD, PTHI, ICA, BMP, HFP, HACRNA #### [facility] [address] [place], [place] [address] PTH, INTACT Collected: 06/26/2018 Status: F Source: [place] 9:14 [facility] REPOSITORY TYPE CODE TESTS RESULT OUT OF REFERENCE UNITS RANGE LAB PTH 15-65 pg/mL PTH, Intact 47 Performed By: #### CBCDIF, VITD, PTHI, ICA, BMP, HFP, HACRNA #### [facility] [address] [place], [place] [address] CALCIUM, IONIZED Collected: 06/26/2018 Status: F Source: [place] 9:14 [facility] REPOSITORY TYPE CODE TESTS RESULT OUT OF REFERENCE UNITS RANGE LAB ICAL 1.08-1.30 mmol/L Calcium, High Ionized 1.31 LAB NCA 1.08-1.30 mmol/L Calcium, High Normalized 1.31 Performed By: #### CBCDIF, VITD, PTHI, ICA, BMP, HFP, HACRNA #### [facility] [address] [place] [id number] BASIC METABOLIC PANL Collected: 06/26/2018 Status: F Source: [place] 9:14 AM [facility] REPOSITORY TYPE CODE TESTS RESULT OUT OF REFERENCE UNITS RANGE LAB GLU 74-99 mg/dL Glucose 96 Result Comment: The [place] Diabetes Association (ADA) provides guidance for cutoff values for fasting glucose and random glucose. The ADA defines fasting as no caloric intake for at least 8 hours. Fas ting plasma glucose results between 100 to 125 mg/dL indicate increased risk for diabetes (prediabetes). Fasting plasma glucose results greater than or equal to 126 mg/dL meet the criteria for diagnosis of diabetes. In the absence of unequivocal hyperglycemia, results should be confirmed by repeat testing. In a patient with classic symptoms of hyperglycemia or hyperglycemic crisis, random plasma glucose results greater than or equal to 200 mg/dL meet the criteria for diagnosis of diabetes. Reference: Standards of Medical Care in Diabetes 2016, [place] Diabetes Association. Diabetes Care. 2016.39(Suppl 1). LAB BUN 7-21 mg/dL BUN Low 3 LAB CRET 0.58-0.96 mg/dL Creatinine 0.62 LAB NA 136-144 mmol/L Sodium Low 133 LAB K 3.7-5.1 mmol/L Potassium Low 3.5 LAB CL 97-105 mmol/L Chloride Low 92 LAB CO2 22-30 mmol/L CO2 27 LAB AGAP 9-18 mmol/L Anion Gap 14 LAB CA 8.5-10.2 mg/dL Calcium, Total 9.9 LAB GFRAA eGFR- Amer. >60 LAB GFRNAA . eGFR-All Other Races >60 Result Comment: eGFR (Estimated GFR) Units of measure: mL/min/1.73 meters squared eGFR is derived from the reexpressed MDRD Study equation using the following parameters: serum creatinine, age, gender and race. The creatinine assay has been calibrated to be traceable to IDMS. An eGFR <60 mL/min/1.73m2 for >3 months is consistent with chronic kidney disease. Refer to KDOQI guidelines for clinical interpretation. In patients with unstable renal function, e.g. those with acute kidney injury, the eGFR may not accurately reflect actual GFR. Performed By: #### CBCDIF, VITD, PTHI, ICA, BMP, HFP, HACRNA #### [facility] [address] [place] [id number] HEPATIC FUNCTN PANEL Collected: 06/26/2018 Status: F Source: [place] 9:14 AM [facility] REPOSITORY TYPE CODE TESTS RESULT OUT OF REFERENCE UNITS RANGE LAB ALB 3.9-4.9 g/dL Albumin 4.1 LAB TBIL 0.2-1.3 mg/dL Bilirubin, High Total 1.6 LAB CBIL <0.2 mg/dL High Bilirubin,Conjuga 0.6 aftab LAB ALKP 32-117 U/L Alkaline High Phosphatase 119 LAB AST 13-35 U/L AST High 39 LAB ALT 7-38 U/L ALT 29 LAB TP 6.3-8.0 g/dL Protein, Total 6.5 Performed By: #### CBCDIF, VITD, PTHI, ICA, BMP, HFP, HACRNA #### [facility] [address] [place] [address] HEPATITIS ACUTE RNA Collected: 06/26/2018 Status: F Source: [place] 9:14 [facility] REPOSITORY TYPE CODE TESTS RESULT OUT OF REFERENCE UNITS RANGE LAB AHAVM Negative Hepatitis A Ab Negative IgM LAB HBSAGA Negative HBsAg Negative LAB HCQPCR IU/mL Hepatitis C RNA HCV RNA not detected by PCR. Result Comment: Reference Range: Negative for HCV RNA The Linear Range of this assay is 15 IU/mL to 100,000,000 IU/mL. LAB AHBCM Negative Negative Hep B Core Ab, IgM Performed By: #### CBCDIF, VITD, PTHI, ICA, BMP, HFP, HACRNA #### [facility] [address] [id number] ALK PHOS ISOENZYMES Collected: 06/26/2018 Status: F Source: [place] 9:14 [facility] REPOSITORY TYPE CODE TESTS RESULT OUT OF REFERENCE UNITS RANGE LAB ALKPS 32-117 U/L Alkaline High Phosphatase 127 LAB ALKBO 10.7-68.3 % Alk Phos Bone % 29.5 LAB ALKBF 12.0-50.0 U/L Bone Fraction 37.5 LAB ALKLIV 26.0-86.2 % Alk Phos Liver % 66.2 LAB ALKLF 15.0-66.0 U/L Liver High Fraction 84.1 LAB ALKINT 0.0-24.2 % Alk Phos Intestine % 4.4 LAB ALKINF 0.0-15.3 U/L Intestine Fraction 5.6 Performed By: #### ALKISO #### [facility] [address] [place], [place] [address] PROGRESS Observed: 06/24/2018 Status: COMPLETED Source: [place] 11:56 AM [facility] REPOSITORY HNO ID: [id number] Author: Juan Mcdaniel Service: (none) Author Type: Physician Type: Progress Notes Filed: 06/24/2018 12:16 PM Note Text: Patient presents with: Edema: in right leg with some areas leaking clear fluid lower leg is red and warm to touch HPI: Patient presents today for office visit for acute visit. Patient complains of: cellulitis Duration: one month Location:right lower leg Associated Symptoms: no trauma. Has been more edematous. Has some itching. Now draining. Had some swelling since in the hospital. - seen recently by Dr. Cazares. Begun on Keflex. Did not do duplex since on eliquis. Reports compliance with meds. Did have some busted blood vessels in that leg. Did have a pet scan. Was bitten twice on the leg. ONC:to see surgery for possible intervention with her lung. ANTICOAGULATION: Patient is on eliquis for atrial fib except for procedures. Length of treatment: indefinite. Bleeding or bruising No.GERD: CARDIO:no chest pain. No increased shortness of breath. No left leg edema. PULMONARY: still using her inhalers. MEDICATIONS: Current Outpatient Prescriptions: amoxicillin-clavulanic acid (AUGMENTIN) 875-125 mg per tablet Take 1 tablet by mouth twice daily for 7 days. tiotropium bromide (SPIRIVA RESPIMAT) 2.5 mcg/actuation mist Inhale 2 Puffs as instructed once daily. ranitidine (ZANTAC 75) 75 mg tablet Take 1 tablet by mouth twice daily. carvedilol (COREG) 25 mg tablet Take 25 mg by mouth twice daily. furosemide (LASIX) 40 mg tablet Take 40 mg by mouth once daily. rivaroxaban (XARELTO) 20 mg tablet Take 1 tablet by mouth daily with dinner. quinapril (ACCUPRIL) 20 mg tablet Take 1 tablet by mouth twice daily. triamcinolone (KENALOG) 0.025 % cream Apply 1 application to affected area twice daily. fluticasone-salmeterol (ADVAIR DISKUS) 250-50 mcg/dose dsdv Inhale 1 Puff as instructed twice daily. Rinse and gargle mouth after use with water. albuterol HFA (VENTOLIN HFA) 90 mcg/actuation inhaler Inhale 2 Puffs as instructed every 4 hours as needed for Wheezing/Shortness of Breath. emollient combination (PRUTECT) emul APPLY 1 APPLICATION TO AFFECTED AREA NEEDED B Complex Vitamins (B-50 COMPLEX) TbER Take 1 tablet by mouth once daily. Vitamin E 400 unit tab Take 1 tablet by mouth once daily. MULTIVITAMIN ORAL Take 1 tablet by mouth once daily. ACETAMINOPHEN 500 MG TAB Take one(1) tablet every four(4) hours prn. No current facility-administered medications for this visit. ALLERGIES: ALLERGIES Allergen Reactions - Sulfa (Sulfonamide * Rash SOME SULFA DRUGS Specifically reacted to topical sulfa cream, pt stated. - Codeine Severe headaches - Combivent [Ipratrop* Swelling - Doxycycline Intolerance Stomach pains..it makes me double over, pt stated. - Dulera [Mometasone-* Intolerance tachycardia - Gabapentin Other: See Comments Loss of balance - Hctz [Amiloride-Hyd* blurry vision, fatigue - Iodine - Mercurochrome [Merb* Intolerance Wound becomes infected, inflamed AND hyper-reactionary, pt stated. - Merthiolate [Other] - Metoprolol Cough - Prednisone messed up stomach patient states is able to take in small divided doses - Qvar [Beclomethason* Other: See Comments Reports coughing, headache, dizziness, nausea, wheezing. - Tamiflu [Oseltamivi* Intolerance Reported abdominal pain, changes in breathing, and severe dry mouth - Tape [Other] Rash - Advil [Ibuprofen] Intolerance severe headache PAST MEDICAL HISTORY Diagnosis Date - Benign neoplasm of colon - COPD (chronic obstructive pulmonary disease) (HCC) - History of breast cancer - Neoplasm of unspecified nature of breast left 13yrs ago/right 5yrs LEFT AND RIGHT - Unspecified essential hypertension PAST SURGICAL HISTORY Procedure Laterality Date - BREAST BIOPSY W/ULTRASOUND GUIDANCE 06/10/14 U/S needle core upper inner right breast - COLONOS W/REM POLYP SNARE 03/04/09 Sigmoid polyp and diverticulosis - LIGATE FALLOPIAN TUBE 1987 Tubal ligation - MASTECTOMY 1993 Left - PAST SURGICAL HISTORY OF 2003 right lumpectomy - REM LESION NEC,HND,SCAL 1.1-2.0CM 03/13/06 Infected jacqueline cyst posterior neck - REMOVE PERM CANNULA/CATHETER 07/31/06 Remove right IJ port FAMILY HISTORY Problem Relation Age of Onset - Coronary Artery Disease Mother - Cancer Sister uterine or ovarian (pt not sure) - Cancer Brother , brain cancer Social History Marital status: Spouse name: maria dolores Years of education: 11 Number of children: 3 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 Alcohol use: Yes Comment: rarely Drug use: No Sexual activity: Yes Partners with: Male control/protection: Surgical Comment: tubal ligation Reviewed current medications, allergies, past medical history, surgical history, family history and social history today. REVIEW OF SYSTEMS RESPIRATORY: Negative for cough, hemoptysis, wheezing, COPD, dyspnea or shortness of breath GI: Negative for blood in stools or black stools, change in bowel habit : Negative All other reviewed and negative other than HPI. HEALTH MAINTENANCE: Reviewed health maintenance issues today and recommended the following in detail. BP CONTROLLED (<130/80) due on 1964 INFLUENZA(1) due on 06/21/2018-recommended declines VITALS: BP 138/86 Pulse 80 Temp 36.7 ?C (98.1 ?F) (Tympanic) Resp 28 Wt 75.3 kg (166 lb) BMI 30.86 kg/m? Last 4 Encounter Wt Readings: Date: Wt: 06/24/2018 75.3 kg (166 lb) 06/18/2018 75.3 kg (166 lb) 04/28/2018 79.6 kg (175 lb 8 oz) 04/04/2018 78.9 kg (174 lb) PHYSICAL EXAMINATION: General appearance: alert and comfortable. Skin: left muñoz is red and shows some clear fluid draining. Tender to touch. Goes three fingerbreadths below the knee. Neck: Supple, no adenopathy; thyroid symmetric, normal size, no bruits Lungs: Lungs clear to auscultation. No wheezing, rhonchi, rales Heart: RRR without murmur, gallop, or rubs. No ectopy Abdomen: Normal abdominal exam, Abdomen soft, non-tender. Bowel sounds normal. No masses, organomegaly Extremities: two plus edema of the right leg. As above. Musculoskeletal: No joint swelling, deformity, or tenderness Peripheral pulses: Normal ASSESSMENT/PLAN: 1. Cellulitis of leg, right - ICD9: 682.6, ICD10: L03.115 (primary diagnosis) - Begin treatment with Clindamycin - Check labs CBC with Diff and bmp - Red flags for re-assessment reviewed with patient in detail. - No lymphangetic streaking, this was defined for patient to watch for and to seek medical care immediately if appears - Follow up for recheck in three days 2. Cancer of upper lobe of left lung (HCC) - ICD9: 162.3, ICD10: C34.12 - recommended to follow with surgery. 3. Mixed hyperlipidemia - ICD9: 272.2, ICD10: E78.2 - good control - Continue current medication. 4. Essential hypertension, benign - ICD9: 401.1, ICD10: I10 - good control - Continue current medication(s) - Goal of BP <140/90 5. Acute systolic CHF (congestive heart failure) (HCC) - ICD9: 428.21, 428.0, ICD10: I50.21 - stable. Do not think this is an issue. 6. Persistent atrial fibrillation (HCC) - ICD9: 427.31, ICD10: I48.1 - continue meds. 7. Tobacco use disorder - ICD9: 305.1, ICD10: F17.200 - Cessation encouraged. - Physiologic and physical aspects of tobacco addiction as well as strategies for quitting were discussed. - Counseling was given focusing on the harmful effects of this addiction especially given the patient's medical condition(s) which will be worsened because of the chemicals in tobacco. 8. Personal history of breast cancer - ICD9: V10.3, ICD10: Z85.3 - stable. 9. Pain of right lower extremity - ICD9: 729.5, ICD10: M79.604 - reinforced need to elevate leg. - CBC + DIFF - BASIC METABOLIC PNL - CLINDAMYCIN HCL 150 MG CAPSULE 10. Localized edema - ICD9: 782.3, ICD10: R60.0 - US LEG VEIN DVT UNL VAS LAB 11. Edema, unspecified type - ICD9: 782.3, ICD10: R60.9 - US LEG VEIN DVT UNL VAS LAB Juan Mcdaniel MD RTO on Saturday and prn. CNOV Observed: 06/24/2018 Status: COMPLETED Source: [place] 11:00 AM [facility] REPOSITORY [facility] CECILE VALLEJO ([id number]) 1945 F Date Time Provider Department 06/24/18 11:00 AM JUAN MCDANIEL [facility] During your visit today, we recorded the following information about you: Temperature Pulse Respiration Blood pressure 98.1 degrees 80/minute 28/minute 138/86 Weight 75.3 kg Juan Mcdaniel MD 06/24/2018 12:16 PM Signed Patient presents with: Edema: in right leg with some areas leaking clear fluid lower leg is red and warm to touch HPI: Patient presents today for office visit for acute visit. Patient complains of: cellulitis Duration: one month Location:right lower leg Associated Symptoms: no trauma. Has been more edematous. Has some itching. Now draining. Had some swelling since in the hospital. - seen recently by Dr. Cazares. Begun on Keflex. Did not do duplex since on eliquis. Reports compliance with meds. Did have some busted blood vessels in that leg. Did have a pet scan. Was bitten twice on the leg. ONC:to see surgery for possible intervention with her lung. ANTICOAGULATION: Patient is on eliquis for atrial fib except for procedures. Length of treatment: indefinite. Bleeding or bruising No.GERD: CARDIO:no chest pain. No increased shortness of breath. No left leg edema. PULMONARY: still using her inhalers. MEDICATIONS: Current Outpatient Prescriptions: amoxicillin-clavulanic acid (AUGMENTIN) 875-125 mg per tablet Take 1 tablet by mouth twice daily for 7 days. tiotropium bromide (SPIRIVA RESPIMAT) 2.5 mcg/actuation mist Inhale 2 Puffs as instructed once daily. ranitidine (ZANTAC 75) 75 mg tablet Take 1 tablet by mouth twice daily. carvedilol (COREG) 25 mg tablet Take 25 mg by mouth twice daily. furosemide (LASIX) 40 mg tablet Take 40 mg by mouth once daily. rivaroxaban (XARELTO) 20 mg tablet Take 1 tablet by mouth daily with dinner. quinapril (ACCUPRIL) 20 mg tablet Take 1 tablet by mouth twice daily. triamcinolone (KENALOG) 0.025 % cream Apply 1 application to affected area twice daily. fluticasone-salmeterol (ADVAIR DISKUS) 250-50 mcg/dose dsdv Inhale 1 Puff as instructed twice daily. Rinse and gargle mouth after use with water. albuterol HFA (VENTOLIN HFA) 90 mcg/actuation inhaler Inhale 2 Puffs as instructed every 4 hours as needed for Wheezing/Shortness of Breath. emollient combination (PRUTECT) emul APPLY 1 APPLICATION TO AFFECTED AREA NEEDED B Complex Vitamins (B-50 COMPLEX) TbER Take 1 tablet by mouth once daily. Vitamin E 400 unit tab Take 1 tablet by mouth once daily. MULTIVITAMIN ORAL Take 1 tablet by mouth once daily. ACETAMINOPHEN 500 MG TAB Take one(1) tablet every four(4) hours prn. No current facility-administered medications for this visit. ALLERGIES: ALLERGIES Allergen Reactions - Sulfa (Sulfonamide * Rash SOME SULFA DRUGS Specifically reacted to topical sulfa cream, pt stated. - Codeine Severe headaches - Combivent [Ipratrop* Swelling - Doxycycline Intolerance Stomach pains..it makes me double over, pt stated. - Dulera [Mometasone-* Intolerance tachycardia - Gabapentin Other: See Comments Loss of balance - Hctz [Amiloride-Hyd* blurry vision, fatigue - Iodine - Mercurochrome [Merb* Intolerance Wound becomes infected, inflamed AND hyper-reactionary, pt stated. - Merthiolate [Other] - Metoprolol Cough - Prednisone messed up stomach patient states is able to take in small divided doses - Qvar [Beclomethason* Other: See Comments Reports coughing, headache, dizziness, nausea, wheezing. - Tamiflu [Oseltamivi* Intolerance Reported abdominal pain, changes in breathing, and severe dry mouth - Tape [Other] Rash - Advil [Ibuprofen] Intolerance severe headache PAST MEDICAL HISTORY Diagnosis Date - Benign neoplasm of colon - COPD (chronic obstructive pulmonary disease) (HCC) - History of breast cancer - Neoplasm of unspecified nature of breast left 13yrs ago/right 5yrs LEFT AND RIGHT - Unspecified essential hypertension PAST SURGICAL HISTORY Procedure Laterality Date - BREAST BIOPSY W/ULTRASOUND GUIDANCE 06/10/14 U/S needle core upper inner right breast - COLONOS W/REM POLYP SNARE 03/04/09 Sigmoid polyp and diverticulosis - LIGATE FALLOPIAN TUBE 1987 Tubal ligation - MASTECTOMY 1993 Left - PAST SURGICAL HISTORY OF 2003 right lumpectomy - REM LESION NEC,HND,SCAL 1.1-2.0CM 03/13/06 Infected jacqueline cyst posterior neck - REMOVE PERM CANNULA/CATHETER 07/31/06 Remove right IJ port FAMILY HISTORY Problem Relation Age of Onset - Coronary Artery Disease Mother - Cancer Sister uterine or ovarian (pt not sure) - Cancer Brother , brain cancer Social History Marital status: Spouse name: marai dolores Years of education: 11 Number of children: 3 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 Alcohol use: Yes Comment: rarely Drug use: No Sexual activity: Yes Partners with: Male control/protection: Surgical Comment: tubal ligation Reviewed current medications, allergies, past medical history, surgical history, family history and social history today. REVIEW OF SYSTEMS RESPIRATORY: Negative for cough, hemoptysis, wheezing, COPD, dyspnea or shortness of breath GI: Negative for blood in stools or black stools, change in bowel habit : Negative All other reviewed and negative other than HPI. HEALTH MAINTENANCE: Reviewed health maintenance issues today and recommended the following in detail. BP CONTROLLED (<130/80) due on 1964 INFLUENZA(1) due on 06/21/2018-recommended declines VITALS: BP 138/86 Pulse 80 Temp 36.7 ?C (98.1 ?F) (Tympanic) Resp 28 Wt 75.3 kg (166 lb) BMI 30.86 kg/m? Last 4 Encounter Wt Readings: Date: Wt: 06/24/2018 75.3 kg (166 lb) 06/18/2018 75.3 kg (166 lb) 04/28/2018 79.6 kg (175 lb 8 oz) 04/04/2018 78.9 kg (174 lb) PHYSICAL EXAMINATION: General appearance: alert and comfortable. Skin: left muñoz is red and shows some clear fluid draining. Tender to touch. Goes three fingerbreadths below the knee. Neck: Supple, no adenopathy; thyroid symmetric, normal size, no bruits Lungs: Lungs clear to auscultation. No wheezing, rhonchi, rales Heart: RRR without murmur, gallop, or rubs. No ectopy Abdomen: Normal abdominal exam, Abdomen soft, non-tender. Bowel sounds normal. No masses, organomegaly Extremities: two plus edema of the right leg. As above. Musculoskeletal: No joint swelling, deformity, or tenderness Peripheral pulses: Normal ASSESSMENT/PLAN: 1. Cellulitis of leg, right - ICD9: 682.6, ICD10: L03.115 (primary diagnosis) - Begin treatment with Clindamycin - Check labs CBC with Diff and bmp - Red flags for re-assessment reviewed with patient in detail. - No lymphangetic streaking, this was defined for patient to watch for and to seek medical care immediately if appears - Follow up for recheck in three days 2. Cancer of upper lobe of left lung (HCC) - ICD9: 162.3, ICD10: C34.12 - recommended to follow with surgery. 3. Mixed hyperlipidemia - ICD9: 272.2, ICD10: E78.2 - good control - Continue current medication. 4. Essential hypertension, benign - ICD9: 401.1, ICD10: I10 - good control - Continue current medication(s) - Goal of BP <140/90 5. Acute systolic CHF (congestive heart failure) (HCC) - ICD9: 428.21, 428.0, ICD10: I50.21 - stable. Do not think this is an issue. 6. Persistent atrial fibrillation (HCC) - ICD9: 427.31, ICD10: I48.1 - continue meds. 7. Tobacco use disorder - ICD9: 305.1, ICD10: F17.200 - Cessation encouraged. - Physiologic and physical aspects of tobacco addiction as well as strategies for quitting were discussed. - Counseling was given focusing on the harmful effects of this addiction especially given the patient's medical condition(s) which will be worsened because of the chemicals in tobacco. 8. Personal history of breast cancer - ICD9: V10.3, ICD10: Z85.3 - stable. 9. Pain of right lower extremity - ICD9: 729.5, ICD10: M79.604 - reinforced need to elevate leg. - CBC + DIFF - BASIC METABOLIC PNL - CLINDAMYCIN HCL 150 MG CAPSULE 10. Localized edema - ICD9: 782.3, ICD10: R60.0 - US LEG VEIN DVT UNL VAS LAB 11. Edema, unspecified type - ICD9: 782.3, ICD10: R60.9 - US LEG VEIN DVT UNL VAS LAB Juan Mcdaniel MD RTO on Saturday and prn. Referring Provider: SELF [[id number]] Allergies As of Date: 06/24/2018 Noted Allergy Reaction SULFA (SULFONAMIDE ANTIBIOTICS) 08/08/2005 2 - Rash Comments: SOME SULFA DRUGS Specifically reacted to topical sulfa cream, pt stated. CODEINE 03/05/2008 Comments: Severe headaches COMBIVENT (IPRATROPIUM-ALBUTEROL) 08/25/2012 7 - Swelling DOXYCYCLINE 08/08/2005 5 - Intolerance Comments: Stomach pains..it makes me double over, pt stated. DULERA (MOMETASONE-FORMOTEROL) 09/03/2012 5 - Intolerance Comments: tachycardia GABAPENTIN 06/16/2014 14 - Other: See Comments Comments: Loss of balance HCTZ (AMILORIDE-HYDROCHLOROTHIAZI*01/19/2009 Comments: blurry vision, fatigue IODINE 08/08/2005 MERCUROCHROME (MERBROMIN) 08/08/2005 5 - Intolerance Comments: Wound becomes infected, inflamed AND hyper- reactionary, pt stated. MERTHIOLATE [Other] 08/08/2005 METOPROLOL 07/17/2013 3 - Cough PREDNISONE 01/19/2009 Comments: messed up stomach patient states is able to take in small divided doses QVAR (BECLOMETHASONE) 03/08/2016 14 - Other: See Comments Comments: Reports coughing, headache, dizziness, nausea, wheezing. TAMIFLU (OSELTAMIVIR) 12/30/2017 5 - Intolerance Comments: Reported abdominal pain, changes in breathing, and severe dry mouth tape [Other] 03/28/2006 2 - Rash ADVIL (IBUPROFEN) 08/08/2005 5 - Intolerance Comments: severe headache Date Reviewed: 06/24/2018 Reviewed by: Judy Land LPN - Fully Assessed Reason for Visit: Edema [39] Cmt: in right leg with some areas leaking clear fluid lower leg is red and warm to touch Primary Visit Diagnosis:Cellulitis of leg, right [L03.115] Other Visit Diagnoses:Cancer of upper lobe of left lung (HCC) [C34.12] Mixed hyperlipidemia [E78.2] Essential hypertension, benign [I10] Acute systolic CHF (congestive heart failure) (HCC) [I50.21] Persistent atrial fibrillation (HCC) [I48.1] Tobacco use disorder [F17.200] Personal history of breast cancer [Z85.3] Pain of right lower extremity [M79.604] Localized edema [R60.0] Edema, unspecified type [R60.9] Order(s):US LEG VEIN DVT UNL VAS LAB [[id number]] Order #: [id number] FUTURE CBC + DIFF [SQCBCDIF] Order #: [id number] FUTURE BASIC METABOLIC PNL [SQBMP] Order #: [id number] FUTURE clindamycin (CLEOCIN) 150 mg capsuleTake 1 capsule by mouth four times daily.Disp: 40 capsuleRfl: 0 Prescriptions as of 06/24/2018 Sig: TIOTROPIUM BROMIDE 2.5 MCG/AC* Inhale 2 Puffs as instructed * RANITIDINE 75 MG TABLET Take 1 tablet by mouth twice * CARVEDILOL 25 MG TABLET Take 25 mg by mouth twice lynda* FUROSEMIDE 40 MG TABLET Take 40 mg by mouth once yoli* RIVAROXABAN 20 MG TABLET Take 1 tablet by mouth daily * QUINAPRIL 20 MG TABLET Take 1 tablet by mouth twice * TRIAMCINOLONE ACETONIDE 0.025* Apply 1 application to affect* FLUTICASONE 250 MCG-SALMETERO* Inhale 1 Puff as instructed t* ALBUTEROL SULFATE HFA 90 MCG/* Inhale 2 Puffs as instructed * EMOLLIENT COMBINATION NO.10 T* APPLY 1 APPLICATION TO AFFECT* VITAMIN B COMPLEX ER TABLET,E* Take 1 tablet by mouth once d* VITAMIN E 400 UNIT TABLET Take 1 tablet by mouth once d* MULTIVITAMIN ORAL Take 1 tablet by mouth once d* ACETAMINOPHEN 500 MG TABLET Take one(1) tablet every four* CLINDAMYCIN HCL 150 MG CAPSULE Take 1 capsule by mouth four * Problem List As Of Date 06/24/2018 Noted Resolved Breast neoplasm [D49.3] Priority: B More... Essential Hypertension, Benign [I10] INVALID FOR* Priority: A Osteoarth NOS-Unspec [M19.90] INVALID FOR* Malig Yayo Lymph-Axilla/Arm [C77.3] INVALID FOR*07/10/2010 Sebaceous Cyst [L72.3] INVALID FOR*07/10/2010 Unspecified Pleural Effusion [J90] INVALID FOR*07/10/2010 SCREEN (SEE ALSO ADMISSION) CANCER - COLON [Z*INVALID FOR*07/10/2010 Emphysema of lung (HCC) [J43.9] INVALID FOR* Priority: A Tobacco Use Disorder [F17.200] INVALID FOR* POLYP COLON [D12.6] INVALID FOR* Priority: B More... DIVERTICULOSIS [K57.30] INVALID FOR*02/01/2017 Priority: B Routine general medical examination at a health*INVALID FOR*08/01/2012 Class: Chronic More... Routine gynecological examination [Z01.419] INVALID FOR*08/01/2012 Class: Chronic More... RIB LESION, UNCERTAIN BEHAVIOR [M99.9] INVALID FOR*08/14/2016 Priority: A More... Mixed Hyperlipidemia [E78.2] INVALID FOR* Priority: A Back pain [M54.9] INVALID FOR* Priority: B Personal history of breast cancer [Z85.3] INVALID FOR* COPD (chronic obstructive pulmonary disease) (H* 08/14/2016 Lumbar radiculopathy [M54.16] INVALID FOR* DDD (degenerative disc disease), lumbar [M51.36]INVALID FOR* Lumbar scoliosis [M41.9] INVALID FOR* Persistent atrial fibrillation (HCC) [I48.1] INVALID FOR* More... Mass of upper lobe of lung [R91.8] INVALID FOR*06/18/2018 More... Acute systolic CHF (congestive heart failure) (*INVALID FOR* More... Cancer of upper lobe of left lung (HCC) [C34.12]INVALID FOR* Prescriptions ordered this encounter Disp Refills Start End CLINDAMYCIN HCL 150 MG CAPSULE 40 c* 0 06/24/2018 Route: ORAL Sig: Take 1 capsule by mouth four times daily. Medications Discontinued During This Encounter amoxicillin-clavulanic acid (AUGMENT* 14 t* 0 06/18/2018 06/24/2018 Route: ORAL Sig: Take 1 tablet by mouth twice daily for 7 days. Disc: Reason for discontinue is not on file. Follow-up and Disposition History Recorded Encounter Status:Closed by JUAN MCDANIEL MD on 06/24/18 PROGRESS Observed: 06/18/2018 Status: COMPLETED Source: [place] 4:50 PM [facility] [place] REPOSITORY [facility] ID: [id number] Author: Isabel Sears (Sw) Service: (none) Author Type: Copy Clerk Type: Progress Notes Filed: 06/18/2018 4:54 PM Note Text: Social Work Problem Referral Note INFORMATION/REFERRAL : Cecile Vallejo 72 year old female was referred by physician - Dr. Cazares to [facility] for the following reason(s): transportation PERSONS INTERVIEWED: patient and physician - Dr. Cazares INTERVENTION: Phone Contact, Team Meeting and Information AND Referral Service Co-ordination Affect/Mood: The patient is noted as appropriate IDENTIFIED PROBLEMS/NEEDS: Transportation Intervention/Referral to be provided:Information for transportation needs which include community support IMPRESSION/PLAN: REUBEN received referral from Dr. Cazares to speak with patient regarding transportation services to [id number] appointments. REUBEN researched some options and provided this information to patient. Patient had already contacted [facility] program through the [employer] and she states she did not have luck with this. REUBEN provided information for [id number], which Dr. Cazares states another patient has had success with. REUBEN then provided information for [employer] to see if patient may qualify for a waiver program. Patient is agreeable to calling REUBEN with outcomes of these options. F/U APPOINTMENT: DRE Izquierdo PROGRESS Observed: 06/18/2018 Status: COMPLETED Source: [place] 11:45 AM [facility] REPOSITORY HNO ID: [id number] Author: Apolinar Cazares Service: (none) Author Type: Physician Type: Progress Notes Filed: 06/18/2018 4:24 PM Note Text: Diagnosis: 1) Breast cancer. 2) Lung mass. HPI: The patient is 72-year-old female with past medical history significant for bilateral breast cancer as outlined below, chronic back pain, tobacco use, COPD and atrial fibrillation. Patient was originally diagnosed in September 1996 with an infiltrating ductal carcinoma the left breast. It was a poorly differentiated tumor, grade 3 measuring 3 cm in diameter. There was also metastatic disease to 3 of 7 axillary nodes and lymphatic invasion of the nipple. She underwent a left modified radical mastectomy. Estrogen receptors were quantified less than 2% and progesterone receptors were less than 2%. She then received 3 cycles of FAC between 11/27/1996 through 01/07/1997. She had significant anorexia malaise and discontinued treatment after the third cycle. She went on to receive radiation treatment to the chest wall. In 2003 she was found to have an abnormality in the right breast. She underwent lumpectomy and sentinel lymph node dissection on 01/04/2004. 2 sentinel lymph nodes were positive for metastatic disease and subsequent axillary exploration showed no further lymph nodes in the specimen. Tumor in the breast measured 1 cm. Estrogen receptors quantified at 41%. MS was negative. HER-2 was strongly overexpressed. On 12/30/2017, she was directed to emergency room [facility] for progressive lower extremity edema and increasing shortness of breath. She was found to be in RVR atrial fibrillation. While in the emergency room she underwent a CTA of the chest because of her complaints. There was no evidence of pulmonary embolism but there was note made of a dense calcified mass involving the anterior portion of the third rib on the left. Patient was also noted be status post left mastectomy along with axillary lymph node dissection. The calcified mass was noted to be unchanged when compared to a CT done in June 2010 but there was development of a soft tissue mass versus area of scarring in the left upper lobe measuring 2.9 x 1.9 cm. No other pulmonary masses or nodules were visualized. Presents for ongoing oncologic management. Interim history: PET 02/03/2018: IMPRESSION: 1. Increased fluorine labeled glucose uptake defined in the left mid anterior hemithorax pulmonary parenchyma, left upper lobe fulfills quantitative criteria for viable neoplasm. Histopathologic analysis is recommended. (Polanco et al, Annals of Internal Medicine, 138:724, 2003). 2. Heterogeneous enhanced glucose metabolism manifest in the breast does not fulfill quantitative criteria for viable neoplasm. 3. The circumferential increase in radiopharmaceutical concentration demonstrated in the left anterior chest wall does not fulfill quantitative criteria for malignant transformation. CT guided biopsy of lung mass on 04/16/2018: MICROSCOPIC DIAGNOSIS CT guided lung mass, core biopsy: Non small cell carcinoma, adenocarcinoma. COMMENT The specimen is evaluated at the time of CT by Dr. Trejo. Immediate Evaluation = Atypical cells consistent with plasma cells are noted. Immunohistochemistry ([id number]) supports the above diagnosis. The tumor is positive for CK7. The tissue was limited and exhausted in the block. Clinical correlation is suggested. A metastatic carcinoma cannot be excluded. Presents for ongoing oncologic management. Interim history: Underwent repeat CT guided biopsy 05/09/2018. Pathology: Left upper lung lobe mass, CT-guided core biopsy: Malignant cells consistent with non-small cell carcinoma, adenocarcinoma. See comment. ADDENDUM (KEYTRUDA) PD-L1 IMMUNOHISTOCHEMISTRY ANALYSIS FROM [facility] INTERPRETATION: No expression. Tumor proportion score 0% ALK FISH, LUNG, NON-SMALL CELL FROM [facility] FISH RESULT: No result. INTERPRETATION: Repeated FISH testing on the paraffin block submitted was unsuccessful. She has frequent cough with white sputum production. No hemoptysis. Stable FISHER and with hotter, humid days. No chest pain. Normal appetite. Has c/o RLE erythema and itch. Has had swelling in RLE since hospitalization in December. Last few weeks anterior RLE red and itchy. No fever. Has been using triamcinolone cream she had on hand. Not helping. PMH, medications and allergies personally reviewed by me today. Any changes documented in appropriate section. ROS: Constitutional: Denies episodes of fever and night sweats. Normal appetite. Fatigued. Neuro: Denies ALMEIDA, vertigo, dizziness and imbalance. HEENT: No recent change in voice, vision or hearing. Resp: See above. CVS: See above. GI: Denies dysgeusia. Denies symptoms of stomatitis. Denies dysphagia and odynophagia. Denies reflux, n/v, change in bowel habits and abdominal pain. : Denies dysuria or gross hematuria. No symptoms of bladder outlet obstruction. Endo: Denies hot flashes. Denies polyuria and polydipsia. Denies heat and cold intolerance. Musculoskeletal: See above. Derm: Denies rash. Denies jaundice. Heme: Denies unusual bleeding and unexplained bruising. Psych: Normal mood. PHYSICAL EXAM: Vitals: Blood pressure 169/91, pulse 73, temperature 36.8 ?C (98.3 ?F), temperature source Temporal Artery, weight 75.3 kg (166 lb). Well-appearing and in no acute distress. EYES: Sclerae are anicteric bilaterally. NECK: Supple. LYMPHATIC: There is no palpable cervical, supraclavicular or axillary adenopathy. RESPIRATORY: Inspiratory breath sounds are of diminished intensity in all dawson. Coarse rhonchi throughout. CARDIOVASCULAR: Rhythm is regular. BREAST: Left mastectomy site is contracted from previous radiation. No chest wall mass or nodule. Extremities: More swelling with confluent erythema anterior RLE. SKIN: No jaundice or rash. No petechiae. NEUROLOGIC: band straightener II-XII are grossly intact. ASSESSMENT/PLAN: (R91.1) Lung nodule (primary encounter diagnosis) (Z85.3) Personal history of breast cancer Assessment: -The patient is a 72-year-old female who had 2 primary breast cancers. She has a chronic calcified lesion of the anterior left third rib most likely due to mal-healed fracture. -Now biopsy proven NSCLC of RICHARD. -Clinical T1c N0 primary. PET from 02/2018 did not suggest hilar or mediastinal adenopathy nor was there evidence distant metastases. -Discussed with patient and that at this juncture surgical opinion is warranted. Anticipate will need repeat imaging. -Also discussed that if not a surgical candidate, then SB RT may be an option. She is very has a tentative about leaving the area for medical care however. But I told her that if has stage I/2 disease then surgery or SBRT would be the only therapies that offer potential long- term control or cure. We're going to have our social sciences research scientist assist with transportation. Plan: -She will keep her appointment with Dr. Nunez in June. -Office visit in one month. (L03.521) Cellulitis of right lower extremity Assessment: -On Eliquis, so very low suspicion underlying DVT. Plan: -Augmentin x7 days -Continue kenalog cream. -She'll let me know next week how it is doing. Apolinar Cazares DO CNOVSP Observed: 06/18/2018 Status: COMPLETED Source: [place] 11:30 AM [facility] REPOSITORY Visit (SP) Office ([place]) CECILE VALLEJO ([id number]) 1945 F Date Time Provider Department 06/18/18 11:30 AM APOLINAR CAZARES During your visit today, we recorded the following information about you: Temperature Pulse Blood pressure Weight 98.3 degrees 73/minute 169/91 75.3 kg Belle Engel LPN 06/18/2018 11:59 AM Signed Est patient. Had appointment with Dr. Campos last week, recommended appointment with Dr. Nunez. Patient is scheduled to see Dr. Nunez 07/08/2018, but is having trouble finding transportation. Belle Cazares DO 06/18/2018 4:24 PM Signed Diagnosis: 1) Breast cancer. 2) Lung mass. HPI: The patient is 72-year-old female with past medical history significant for bilateral breast cancer as outlined below, chronic back pain, tobacco use, COPD and atrial fibrillation. Patient was originally diagnosed in September 1996 with an infiltrating ductal carcinoma the left breast. It was a poorly differentiated tumor, grade 3 measuring 3 cm in diameter. There was also metastatic disease to 3 of 7 axillary nodes and lymphatic invasion of the nipple. She underwent a left modified radical mastectomy. Estrogen receptors were quantified less than 2% and progesterone receptors were less than 2%. She then received 3 cycles of FAC between 11/27/1996 through 01/07/1997. She had significant anorexia malaise and discontinued treatment after the third cycle. She went on to receive radiation treatment to the chest wall. In 2003 she was found to have an abnormality in the right breast. She underwent lumpectomy and sentinel lymph node dissection on 01/04/2004. 2 sentinel lymph nodes were positive for metastatic disease and subsequent axillary exploration showed no further lymph nodes in the specimen. Tumor in the breast measured 1 cm. Estrogen receptors quantified at 41%. MS was negative. HER-2 was strongly overexpressed. On 12/30/2017, she was directed to emergency room [facility] for progressive lower extremity edema and increasing shortness of breath. She was found to be in RVR atrial fibrillation. While in the emergency room she underwent a CTA of the chest because of her complaints. There was no evidence of pulmonary embolism but there was note made of a dense calcified mass involving the anterior portion of the third rib on the left. Patient was also noted be status post left mastectomy along with axillary lymph node dissection. The calcified mass was noted to be unchanged when compared to a CT done in June 2010 but there was development of a soft tissue mass versus area of scarring in the left upper lobe measuring 2.9 x 1.9 cm. No other pulmonary masses or nodules were visualized. Presents for ongoing oncologic management. Interim history: PET 02/03/2018: IMPRESSION: 1. Increased fluorine labeled glucose uptake defined in the left mid anterior hemithorax pulmonary parenchyma, left upper lobe fulfills quantitative criteria for viable neoplasm. Histopathologic analysis is recommended. (Sherri et al, Annals of Internal Medicine, 138:724, 2003). 2. Heterogeneous enhanced glucose metabolism manifest in the breast does not fulfill quantitative criteria for viable neoplasm. 3. The circumferential increase in radiopharmaceutical concentration demonstrated in the left anterior chest wall does not fulfill quantitative criteria for malignant transformation. CT guided biopsy of lung mass on 04/16/2018: MICROSCOPIC DIAGNOSIS CT guided lung mass, core biopsy: Non small cell carcinoma, adenocarcinoma. COMMENT The specimen is evaluated at the time of CT by Dr. Trejo. Immediate Evaluation = Atypical cells consistent with plasma cells are noted. Immunohistochemistry ([id number]) supports the above diagnosis. The tumor is positive for CK7. The tissue was limited and exhausted in the block. Clinical correlation is suggested. A metastatic carcinoma cannot be excluded. Presents for ongoing oncologic management. Interim history: Underwent repeat CT guided biopsy 05/09/2018. Pathology: Left upper lung lobe mass, CT-guided core biopsy: Malignant cells consistent with non-small cell carcinoma, adenocarcinoma. See comment. ADDENDUM (KEYTRUDA) PD-L1 IMMUNOHISTOCHEMISTRY ANALYSIS FROM [facility] INTERPRETATION: No expression. Tumor proportion score 0% ALK FISH, LUNG, NON-SMALL CELL FROM [facility] FISH RESULT: No result. INTERPRETATION: Repeated FISH testing on the paraffin block submitted was unsuccessful. She has frequent cough with white sputum production. No hemoptysis. Stable FISHER and with hotter, humid days. No chest pain. Normal appetite. Has c/o RLE erythema and itch. Has had swelling in RLE since hospitalization in December. Last few weeks anterior RLE red and itchy. No fever. Has been using triamcinolone cream she had on hand. Not helping. PMH, medications and allergies personally reviewed by me today. Any changes documented in appropriate section. ROS: Constitutional: Denies episodes of fever and night sweats. Normal appetite. Fatigued. Neuro: Denies ALMEIDA, vertigo, dizziness and imbalance. HEENT: No recent change in voice, vision or hearing. Resp: See above. CVS: See above. GI: Denies dysgeusia. Denies symptoms of stomatitis. Denies dysphagia and odynophagia. Denies reflux, n/v, change in bowel habits and abdominal pain. : Denies dysuria or gross hematuria. No symptoms of bladder outlet obstruction. Endo: Denies hot flashes. Denies polyuria and polydipsia. Denies heat and cold intolerance. Musculoskeletal: See above. Derm: Denies rash. Denies jaundice. Heme: Denies unusual bleeding and unexplained bruising. Psych: Normal mood. PHYSICAL EXAM: Vitals: Blood pressure 169/91, pulse 73, temperature 36.8 ?C (98.3 ?F), temperature source Temporal Artery, weight 75.3 kg (166 lb). Well-appearing and in no acute distress. EYES: Sclerae are anicteric bilaterally. NECK: Supple. LYMPHATIC: There is no palpable cervical, supraclavicular or axillary adenopathy. RESPIRATORY: Inspiratory breath sounds are of diminished intensity in all dawson. Coarse rhonchi throughout. CARDIOVASCULAR: Rhythm is regular. BREAST: Left mastectomy site is contracted from previous radiation. No chest wall mass or nodule. Extremities: More swelling with confluent erythema anterior RLE. SKIN: No jaundice or rash. No petechiae. NEUROLOGIC: band straightener II-XII are grossly intact. ASSESSMENT/PLAN: (R91.1) Lung nodule (primary encounter diagnosis) (Z85.3) Personal history of breast cancer Assessment: -The patient is a 72-year-old female who had 2 primary breast cancers. She has a chronic calcified lesion of the anterior left third rib most likely due to mal-healed fracture. -Now biopsy proven NSCLC of RICHARD. -Clinical T1c N0 primary. PET from 02/2018 did not suggest hilar or mediastinal adenopathy nor was there evidence distant metastases. -Discussed with patient and that at this juncture surgical opinion is warranted. Anticipate will need repeat imaging. -Also discussed that if not a surgical candidate, then SB RT may be an option. She is very has a tentative about leaving the area for medical care however. But I told her that if has stage I/2 disease then surgery or SBRT would be the only therapies that offer potential long-term control or cure. We're going to have our social sciences research scientist assist with transportation. Plan: -She will keep her appointment with Dr. Nunez in June. -Office visit in one month. (L03.115) Cellulitis of right lower extremity Assessment: -On Eliquis, so very low suspicion underlying DVT. Plan: -Augmentin x7 days -Continue kenalog cream. -She'll let me know next week how it is doing. Apolinar Cazares DO Referring Provider: APOLINAR CAZARES [[id number]] Allergies As of Date: 06/18/2018 Noted Allergy Reaction SULFA (SULFONAMIDE ANTIBIOTICS) 08/08/2005 2 - Rash Comments: SOME SULFA DRUGS Specifically reacted to topical sulfa cream, pt stated. CODEINE 03/05/2008 Comments: Severe headaches COMBIVENT (IPRATROPIUM-ALBUTEROL) 08/25/2012 7 - Swelling DOXYCYCLINE 08/08/2005 5 - Intolerance Comments: Stomach pains..it makes me double over, pt stated. DULERA (MOMETASONE-FORMOTEROL) 09/03/2012 5 - Intolerance Comments: tachycardia GABAPENTIN 06/16/2014 14 - Other: See Comments Comments: Loss of balance HCTZ (AMILORIDE-HYDROCHLOROTHIAZI*01/19/2009 Comments: blurry vision, fatigue IODINE 08/08/2005 MERCUROCHROME (MERBROMIN) 08/08/2005 5 - Intolerance Comments: Wound becomes infected, inflamed AND hyper- reactionary, pt stated. MERTHIOLATE [Other] 08/08/2005 METOPROLOL 07/17/2013 3 - Cough PREDNISONE 01/19/2009 Comments: messed up stomach patient states is able to take in small divided doses QVAR (BECLOMETHASONE) 03/08/2016 14 - Other: See Comments Comments: Reports coughing, headache, dizziness, nausea, wheezing. TAMIFLU (OSELTAMIVIR) 12/30/2017 5 - Intolerance Comments: Reported abdominal pain, changes in breathing, and severe dry mouth tape [Other] 03/28/2006 2 - Rash ADVIL (IBUPROFEN) 08/08/2005 5 - Intolerance Comments: severe headache Date Reviewed: 06/18/2018 Reviewed by: Belle Engel LPN - Fully Assessed Reason for Visit: Established Patient [175] Primary Visit Diagnosis:Malignant neoplasm of upper lobe of left lung (HCC) [C34.12] Other Visit Diagnosis:Cellulitis of right lower extremity [L03.115] Order(s):amoxicillin-clavulanic acid (AUGMENTIN) 875-125 mg per tabletTake 1 tablet by mouth twice daily for 7 days.Disp: 14 tabletRfl: 0 Follow-up and Disposition History Recorded Prescriptions as of 06/18/2018 Sig: TIOTROPIUM BROMIDE 2.5 MCG/AC* Inhale 2 Puffs as instructed * RANITIDINE 75 MG TABLET Take 1 tablet by mouth twice * CARVEDILOL 25 MG TABLET Take 25 mg by mouth twice lynda* FUROSEMIDE 40 MG TABLET Take 40 mg by mouth once yoli* RIVAROXABAN 20 MG TABLET Take 1 tablet by mouth daily * QUINAPRIL 20 MG TABLET Take 1 tablet by mouth twice * TRIAMCINOLONE ACETONIDE 0.025* Apply 1 application to affect* FLUTICASONE 250 MCG-SALMETERO* Inhale 1 Puff as instructed t* ALBUTEROL SULFATE HFA 90 MCG/* Inhale 2 Puffs as instructed * EMOLLIENT COMBINATION NO.10 T* APPLY 1 APPLICATION TO AFFECT* VITAMIN B COMPLEX ER TABLET,E* Take 1 tablet by mouth once d* VITAMIN E 400 UNIT TABLET Take 1 tablet by mouth once d* MULTIVITAMIN ORAL Take 1 tablet by mouth once d* ACETAMINOPHEN 500 MG TABLET Take one(1) tablet every four* AMOXICILLIN 875 MG-POTASSIUM * Take 1 tablet by mouth twice * Problem List As Of Date 06/18/2018 Noted Resolved Breast neoplasm [D49.3] Priority: B More... Essential Hypertension, Benign [I10] INVALID FOR* Priority: A Osteoarth NOS-Unspec [M19.90] INVALID FOR* Malig Yayo Lymph-Axilla/Arm [C77.3] INVALID FOR*07/10/2010 Sebaceous Cyst [L72.3] INVALID FOR*07/10/2010 Unspecified Pleural Effusion [J90] INVALID FOR*07/10/2010 SCREEN (SEE ALSO ADMISSION) CANCER - COLON [Z*INVALID FOR*07/10/2010 Emphysema of lung (HCC) [J43.9] INVALID FOR* Priority: A Tobacco Use Disorder [F17.200] INVALID FOR* POLYP COLON [D12.6] INVALID FOR* Priority: B More... DIVERTICULOSIS [K57.30] INVALID FOR*02/01/2017 Priority: B Routine general medical examination at a health*INVALID FOR*08/01/2012 Class: Chronic More... Routine gynecological examination [Z01.419] INVALID FOR*08/01/2012 Class: Chronic More... RIB LESION, UNCERTAIN BEHAVIOR [M99.9] INVALID FOR*08/14/2016 Priority: A More... Mixed Hyperlipidemia [E78.2] INVALID FOR* Priority: A Back pain [M54.9] INVALID FOR* Priority: B Personal history of breast cancer [Z85.3] INVALID FOR* COPD (chronic obstructive pulmonary disease) (H* 08/14/2016 Lumbar radiculopathy [M54.16] INVALID FOR* DDD (degenerative disc disease), lumbar [M51.36]INVALID FOR* Lumbar scoliosis [M41.9] INVALID FOR* Persistent atrial fibrillation (HCC) [I48.1] INVALID FOR* More... Mass of upper lobe of lung [R91.8] INVALID FOR*06/18/2018 More... Acute systolic CHF (congestive heart failure) (*INVALID FOR* More... Visit Notes: >> Belle Engel LPN SatJun 18, 2018 11:23 AM Status: Signed Est patient. Had appointment with Dr. Campos last week, recommended appointment with Dr. Nunez. Patient is scheduled to see Dr. Nunez 07/08/2018, but is having trouble finding transportation. Belle Engel LPN Encounter Status:Closed by APOLINAR CAZARES DO on 06/18/18 CNSW Observed: 06/18/2018 Status: COMPLETED Source: [place] 12:00 AM [facility] REPOSITORY Social Work (Ocision) CECILE VALLEJO ([id number]) 1945 F Date Time Provider Department 06/18/18 ISABEL SEARS) [place] During your visit today, we recorded the following information about you: DRE De Los Santos 06/18/2018 4:54 PM Signed Social Work Problem Referral Note INFORMATION/REFERRAL : Cecile Vallejo 72 year old female was referred by physician - Dr. Cazares to [facility] [facility] for the following reason(s): transportation PERSONS INTERVIEWED: patient and physician - Dr. Cazares INTERVENTION: Phone Contact, Team Meeting and Information AND Referral Service Co-ordination Affect/Mood: The patient is noted as appropriate IDENTIFIED PROBLEMS/NEEDS: Transportation Intervention/Referral to be provided:Information for transportation needs which include community support IMPRESSION/PLAN: SW received referral from Dr. Cazares to speak with patient regarding transportation services to [id number] appointments. SW researched some options and provided this information to patient. Patient had already contacted [facility] program through the [employer] and she states she did not have luck with this. REUBEN provided information for [facility], which Dr. Cazares states another patient has had success with. REUBEN then provided information for [employer] [facility] to see if patient may qualify for a waiver program. Patient is agreeable to calling REUBEN with outcomes of these options. F/U APPOINTMENT: PRN DRE De Los Santos Allergies As of Date: 06/18/2018 Noted Allergy Reaction SULFA (SULFONAMIDE ANTIBIOTICS) 08/08/2005 2 - Rash Comments: SOME SULFA DRUGS Specifically reacted to topical sulfa cream, pt stated. CODEINE 03/05/2008 Comments: Severe headaches COMBIVENT (IPRATROPIUM-ALBUTEROL) 08/25/2012 7 - Swelling DOXYCYCLINE 08/08/2005 5 - Intolerance Comments: Stomach pains..it makes me double over, pt stated. DULERA (MOMETASONE-FORMOTEROL) 09/03/2012 5 - Intolerance Comments: tachycardia GABAPENTIN 06/16/2014 14 - Other: See Comments Comments: Loss of balance HCTZ (AMILORIDE-HYDROCHLOROTHIAZI*01/19/2009 Comments: blurry vision, fatigue IODINE 08/08/2005 MERCUROCHROME (MERBROMIN) 08/08/2005 5 - Intolerance Comments: Wound becomes infected, inflamed AND hyper- reactionary, pt stated. MERTHIOLATE [Other] 08/08/2005 METOPROLOL 07/17/2013 3 - Cough PREDNISONE 01/19/2009 Comments: messed up stomach patient states is able to take in small divided doses QVAR (BECLOMETHASONE) 03/08/2016 14 - Other: See Comments Comments: Reports coughing, headache, dizziness, nausea, wheezing. TAMIFLU (OSELTAMIVIR) 12/30/2017 5 - Intolerance Comments: Reported abdominal pain, changes in breathing, and severe dry mouth tape [Other] 03/28/2006 2 - Rash ADVIL (IBUPROFEN) 08/08/2005 5 - Intolerance Comments: severe headache Date Reviewed: 06/18/2018 Reviewed by: Belle Engel LPN - Fully Assessed Reason for Visit: Social Work Services [507] Prescriptions as of 06/18/2018 Sig: AMOXICILLIN 875 MG-POTASSIUM * Take 1 tablet by mouth twice * TIOTROPIUM BROMIDE 2.5 MCG/AC* Inhale 2 Puffs as instructed * RANITIDINE 75 MG TABLET Take 1 tablet by mouth twice * CARVEDILOL 25 MG TABLET Take 25 mg by mouth twice lynda* FUROSEMIDE 40 MG TABLET Take 40 mg by mouth once yoli* RIVAROXABAN 20 MG TABLET Take 1 tablet by mouth daily * QUINAPRIL 20 MG TABLET Take 1 tablet by mouth twice * TRIAMCINOLONE ACETONIDE 0.025* Apply 1 application to affect* FLUTICASONE 250 MCG-SALMETERO* Inhale 1 Puff as instructed t* ALBUTEROL SULFATE HFA 90 MCG/* Inhale 2 Puffs as instructed * EMOLLIENT COMBINATION NO.10 T* APPLY 1 APPLICATION TO AFFECT* VITAMIN B COMPLEX ER TABLET,E* Take 1 tablet by mouth once d* VITAMIN E 400 UNIT TABLET Take 1 tablet by mouth once d* MULTIVITAMIN ORAL Take 1 tablet by mouth once d* ACETAMINOPHEN 500 MG TABLET Take one(1) tablet every four* Problem List As Of Date 06/18/2018 Noted Resolved Breast neoplasm [D49.3] Priority: B More... Essential Hypertension, Benign [I10] INVALID FOR* Priority: A Osteoarth NOS-Unspec [M19.90] INVALID FOR* Malig Yayo Lymph-Axilla/Arm [C77.3] INVALID FOR*07/10/2010 Sebaceous Cyst [L72.3] INVALID FOR*07/10/2010 Unspecified Pleural Effusion [J90] INVALID FOR*07/10/2010 SCREEN (SEE ALSO ADMISSION) CANCER - COLON [Z*INVALID FOR*07/10/2010 Emphysema of lung (HCC) [J43.9] INVALID FOR* Priority: A Tobacco Use Disorder [F17.200] INVALID FOR* POLYP COLON [D12.6] INVALID FOR* Priority: B More... DIVERTICULOSIS [K57.30] INVALID FOR*02/01/2017 Priority: B Routine general medical examination at a [facility]*INVALID FOR*08/01/2012 Class: Chronic More... Routine gynecological examination [Z01.419] INVALID FOR*08/01/2012 Class: Chronic More... RIB LESION, UNCERTAIN BEHAVIOR [M99.9] INVALID FOR*08/14/2016 Priority: A More... Mixed Hyperlipidemia [E78.2] INVALID FOR* Priority: A Back pain [M54.9] INVALID FOR* Priority: B Personal history of breast cancer [Z85.3] INVALID FOR* COPD (chronic obstructive pulmonary disease) (H* 08/14/2016 Lumbar radiculopathy [M54.16] INVALID FOR* DDD (degenerative disc disease), lumbar [M51.36]INVALID FOR* Lumbar scoliosis [M41.9] INVALID FOR* Persistent atrial fibrillation (HCC) [I48.1] INVALID FOR* More... Mass of upper lobe of lung [R91.8] INVALID FOR*06/18/2018 More... Acute systolic CHF (congestive heart failure) (*INVALID FOR* More... Encounter Status:Closed by ISABEL SEARS on 06/18/18 PULMONARY VISIT REPORT Observed: 06/11/2018 Status: F Source: ARVIN 1:16 PM [facility] REPOSITORY Pulmonary Medicine [address] [place] [address] OFFICE VISIT Date of Service: 06/11/18 MR#: [id number] Acct: [id number] Name: CECILE VALLEJO Rep #: [id number] : 1945 Provider: Mark Campos D.O. Age/Sex: 72/F Location: [facility] Status: Signed Assessment AND Plan 1. Chronic obstructive pulmonary disease, unspecified COPD type J44.9 Plan The patient's most recent pulmonary function testing from approximately 4 months ago revealed evidence of a very severe large airways obstructive ventilatory defect. She is currently on a maximal triple therapy inhaler regimen and seems to be doing well symptomatically. This will be continued without change. Her 6-minute walk test revealed no significant exertional oxygen desaturation. 2. Tobacco dependency F17.200 Plan The patient was again counseled regarding the deleterious effects of ongoing tobacco use, including modalities which could be utilized to achieve a smoke free lifestyle. 3. Non-small cell lung cancer C34.90 Plan Patient was recently diagnosed with non-small cell lung cancer, adenocarcinoma. She is currently following with Dr. Cazares of Oncology at [facility]. My last discussion with him, recommendation has been made for a referral to thoracic surgery, Dr. Nunez at [facility]. The patient is in agreement to follow-up with the aforementioned surgeon for further evaluation. Plan Detail Follow Up 3 Months (DMB) HPI HPI Comments Details: The patient is a 72-year-old female who presents to the clinic today for a routine scheduled follow-up office visit. The patient was recently admitted to the hospital December 30 with decompensated diastolic heart failure, new onset atrial fibrillation and suspected COPD. A CTA chest was completed during that hospitalization was negative for the presence of pulmonary embolism. However, there was note of a new spiculated masslike lesion in left upper lobe measuring 2.9 x 1.9 cm. Surface echocardiogram revealed an ejection fraction of 60% with an RVSP which was estimated to be 43 mmHg. Pulmonary function testing completed January 31, 2018 revealed the presence of an irreversible very severe large airways obstructive ventilatory defect with associated air trapping and reduction in diffusing capacity. A 6 minute walk test was also completed at that time and revealed evidence of impaired walk distance without the need for supplemental oxygen with exertion. A PET scan, ordered by Dr. Cazares, and completed on February 03 revealed increased glucose uptake in the left upper lobe that fulfilled quantitative criteria for viable neoplasm. Therefore, the patient was referred to undergo a CT-guided lung biopsy, which was completed in March 2018. Pathology revealed malignant cells consistent with non-small cell carcinoma, adenocarcinoma. Following a discussion with the patient's oncologist, Dr. Cazares, the patient was referred to thoracic surgery, Dr. Nunez at [facility]. Today, the patient remains on a stable inhaler regimen that includes Advair and Spiriva. She reports infrequent use of her rescue inhaler. She does report that heat and humidity oftentimes lead to worsening in her breathing quality. She does report that she has been losing weight recently. She continues to smoke cigarettes daily. She reports that she is anxious about going to [place] to see Dr. Nunez, due to the distance that she has to travel and the potential for traffic. Intake Vital Signs06/11/18 Height 5 ft 4 in 06/11/18 Weight: 164 lb Intake Visit Reasons: 1 M FU Allergies albuterol sulfate [From Combivent] Allergy (Verified 06/11/18 12:05) Swelling ipratropium bromide [From Combivent] Allergy (Verified 06/11/18 12:05) Swelling metoprolol Allergy (Verified 06/11/18 12:05) Laryngospasms Sulfa (Sulfonamide Antibiotics) Allergy (Verified 06/11/18 12:05) Rash beclomethasone [From Qvar] Adverse Reaction (Verified 06/11/18 12:05) COUGHING benzalkonium chloride [From Merthiolate (benzalkonium)] Adverse Reaction (Verified 06/11/18 12:05) Other codeine Adverse Reaction (Verified 06/11/18 12:05) doesn't remember doxycycline Adverse Reaction (Verified 06/11/18 12:05) Abd cramps/diarrhea formoterol fumarate [From Dulera] Adverse Reaction (Verified 06/11/18 12:05) Other hydrochlorothiazide Adverse Reaction (Verified 06/11/18 12:05) Other ibuprofen [From Advil] Adverse Reaction (Verified 06/11/18 12:05) Other iodine Adverse Reaction (Verified 06/11/18 12:05) Itching merbromin Adverse Reaction (Verified 06/11/18 12:05) Other mometasone furoate [From Dulera] Adverse Reaction (Verified 06/11/18 12:05) Other oseltamivir [From Tamiflu] Adverse Reaction (Verified 06/11/18 12:05) uterine pain prednisone Adverse Reaction (Verified 06/11/18 12:05) Abd cramps/diarrhea PLASTIC TAPE Allergy (Uncoded 06/11/18 12:05) Rash Medications Fluticasone/Salmeterol [Advair 250/50 Mcg Diskus] 1 puff INHALATION BID 04/11/15 [History Confirmed 06/11/18] Quinapril HCl [Accupril] 20 mg PO BID 04/11/15 [History Confirmed 06/11/18] Acetaminophen [Tylenol] 500 mg PO Q4H PRN PRN 10/16/16 [History Confirmed 06/11/18] Albuterol Inhaler [Ventolin Hfa] 1 - 2 puff INHALATION Q4H PRN PRN 10/16/16 [History Confirmed 06/11/18] Multivitamins,Therapeutic [Multivitamin] 1 tab PO DAILY 10/16/16 [History Confirmed 06/11/18] Vitamin B Complex 1 ea PO DAILY 10/16/16 [History Confirmed 06/11/18] Vitamin E 400 unit PO DAILY 10/16/16 [History Confirmed 06/11/18] carvedilol 25 mg tablet 25 mg PO BID #180 tab 01/20/18 [Rx Confirmed 06/11/18] furosemide 40 mg tablet 40 mg PO DAILY #90 tab 01/20/18 [Rx Confirmed 06/11/18] rivaroxaban 20 mg tablet 20 mg PO DINNER #90 tab 01/20/18 [Rx Confirmed 06/11/18] tiotropium bromide 2.5 mcg/actuation mist for inhalation 2 puff INHALATION QDAY #1 device 03/04/18 [Rx Confirmed 06/11/18] Emollient Combination No.10 [Prutect] 45 gm TP 04/16/18 [History Confirmed 06/11/18] Triamcinolone 0.025% Cream [Kenalog] 1 applic TOPICAL BID 04/16/18 [History Confirmed 06/11/18] PFSH Medical History Nonrheumatic mitral (valve) insufficiency (Acute) Thrush, oral (Acute) Lung mass (Acute) Suspected chronic obstructive pulmonary disease based on initial evaluation (Chronic) Acute CHF (Acute) New onset A. fib with RVR (Acute) History of breast cancer (Chronic) COPD (chronic obstructive pulmonary disease) (Chronic) Hypertension (Chronic) Surgical History History of left mastectomy (Resolved) History of lumpectomy of right breast (Resolved) History of tubal ligation (Resolved) polyp removal (Resolved) Family History Father Emphysema of lung Sister Cancer uterine cancer Social History Smoking Status: Current every day smoker second hand exposure: Yes alcohol intake: current alcohol intake frequency: a few times a month Alcohol type: wine substance use type: does not use caffeine: No what type of physical activity do you participate in: none seatbelt use: always do you feel safe at home: Yes Review of Systems Const CONSTITUTIONAL: Negative anorexia, body ache, chills, daytime sleepiness, fever(s), night sweats, oral thrush, stops breathing during sleep, weight loss, sleeping in chair, fatigue, weight loss, weight gain, frequent colds, seasonal allergies, other, headache(s) or orthopnea EETM Ear Nose Throat Mouth: Positive hearing normal; negative hard of hearing, hoarseness, dry mouth in morning, change in vision, itchy eyes, eye pain, swallowing Difficulty, ear pain, nose bleed, headache(s), mouth pain, nasal congestion, nasal discharge, post nasal drip, sinus pain, sinus pressure, sore throat or other Cardio Cardiovascular: Negative chest pain, chest pain at rest, chest pain with activity, irregular heart rhythm, edema, shortness of breath when lying down, palpitations, murmur or other Resp Respiratory: Positive as per HPI, shortness of breath shortness of breath: Positive with activity, inhalers and cough cough: Positive productive color: Positive thick and white; negative pain with cough, wheezing, chest congestion, chest tightness, pain on inspiration, increase use of rescue inhalers, snoring, apnea or other Gastro Gastrointestional: Negative bloody stools, change in appetite, difficulty swallowing, reflux, hematemesis, melena stool, loose stool, constipation or other Genitourinary: Negative blood in urine, nocturia, pain with urination or other Musc Musculoskeletal: Negative body pain, back pain, neck pain or other Skin/Breast Skin/Breast: Negative dry skin, itching, rash, unusual bruising, breast lump or other Neuro Neurological: Negative restless legs, confusion, weakness or other Psych Psychocological: Positive anxiety; negative abnormal sleep pattern, thoughts of hurting self/others, hopelessness or other Lymph Lymphatic: Negative easy bleeding, easy bruising, swollen lymph nodes or other Exam Const Constitutional: Positive conversant, cooperative, in no acute respiratory distress, well developed and good hygiene Head Head: Positive normocephalic and atraumatic; negative cyanosis of lips/distal nose Eyes Eye: Positive clear conjunctiva; negative nystagmus or scleral abnormality Ears Ear: Positive hearing normal and external ears normal; negative hard of hearing Nose Nose: Positive external nose normal; negative epistaxis Mouth Mouth: Positive oral mucosae normal and posterior oropharynx is adequate; negative no lesions or post nasal drip Mallampati Score: II: Mallampati Score Neck Neck: Positive normal visual inspection and trachea midline; negative lymphadenopathy Chest Wall Chest: Positive symmetric chest movement Normal AP diameter. Resp lung sounds: Positive diminished diminished: Positive global and prolonged expiratory time; negative wheezes, rhonchi or rales Cardio Cardiac: Positive S1 normal and S2 normal; negative rub, gallop or murmur IRIR GI GI: Positive normal bowel sounds Soft without distention Genitourinary: Positive deferred Musc Musculoskeletal: Positive in a wheelchair Skin Pulmonary Skin Exam: Positive intact; negative lesion, ulcers, dermal atrophy or rash Pulses Pulse: Yes Pedal pulses present: Extremities Extremities: No clubbing, No cyanosis, No edema Neuro Neurologic: Yes conversant, Yes no focal neuro deficits, Yes cooperative Lymph Lymphatic: No lymphadenopathy Psych Appearance: Positive grossly normal Mental Status: Positive mental status grossly normal Mood: Positive congruent mood Affect: Positive normal affect Coding Level of Care Code Off vis,est,level 3 Diagnoses Chronic obstructive pulmonary disease, unspecified COPD type J44.9 COPD type: unspecified COPD Tobacco dependency F17.200 Non-small cell lung cancer C34.90 06/11/18 1315 <Electronically signed by Mark Campos DO> Date Mark Campos DO Cosigner Signature: Date (if applicable) CC: Juan ROWE Observed: 05/14/2018 Status: COMPLETED Source: RAMOS 12:00 AM [facility] REPOSITORY Telephone (HEMAWS) CECILE VALLEJO ([id number]) 1945 F Date Time Provider Department 05/14/18 APOLINAR CAZARES During your visit today, we recorded the following information about you: Gideon KIMBROUGH 05/14/2018 10:00 AM Signed Bing from Pulmonary Medicine [facility] called to speak with a nurse about the results of the patient's recent CT biopsy. Please have a nurse call her back and follow th prompts to speak directly with a nurse. Their phone number is [phone] Thanks Gideon VILLEDAR Belle Engel LPN 05/14/2018 10:11 AM Signed Spoke with Bing from Pulmonary Medicine [facility]. She is faxing over the most recent CT biopsy results from 05/09/2018. Belle Engel LPN 05/14/2018 12:05 PM Signed Biopsy results placed on physician's desk for review. Belle Engel LPN Allergies As of Date: 05/14/2018 Noted Allergy Reaction SULFA (SULFONAMIDE ANTIBIOTICS) 08/08/2005 2 - Rash Comments: SOME SULFA DRUGS Specifically reacted to topical sulfa cream, pt stated. CODEINE 03/05/2008 Comments: Severe headaches COMBIVENT (IPRATROPIUM-ALBUTEROL) 08/25/2012 7 - Swelling DOXYCYCLINE 08/08/2005 5 - Intolerance Comments: Stomach pains..it makes me double over, pt stated. DULERA (MOMETASONE-FORMOTEROL) 09/03/2012 5 - Intolerance Comments: tachycardia GABAPENTIN 06/16/2014 14 - Other: See Comments Comments: Loss of balance HCTZ (AMILORIDE-HYDROCHLOROTHIAZI*01/19/2009 Comments: blurry vision, fatigue IODINE 08/08/2005 MERCUROCHROME (MERBROMIN) 08/08/2005 5 - Intolerance Comments: Wound becomes infected, inflamed AND hyper- reactionary, pt stated. MERTHIOLATE [Other] 08/08/2005 METOPROLOL 07/17/2013 3 - Cough PREDNISONE 01/19/2009 Comments: messed up stomach patient states is able to take in small divided doses QVAR (BECLOMETHASONE) 03/08/2016 14 - Other: See Comments Comments: Reports coughing, headache, dizziness, nausea, wheezing. TAMIFLU (OSELTAMIVIR) 12/30/2017 5 - Intolerance Comments: Reported abdominal pain, changes in breathing, and severe dry mouth tape [Other] 03/28/2006 2 - Rash ADVIL (IBUPROFEN) 08/08/2005 5 - Intolerance Comments: severe headache Date Reviewed: 04/28/2018 Reviewed by: Ramona Galdamez (Ezio) EZIO Puckett - Fully Assessed Reason for Visit: Results [95] Prescriptions as of 05/14/2018 Sig: TIOTROPIUM BROMIDE 2.5 MCG/AC* Inhale 2 Puffs as instructed * RANITIDINE 75 MG TABLET Take 1 tablet by mouth twice * CARVEDILOL 25 MG TABLET Take 25 mg by mouth twice lynda* FUROSEMIDE 40 MG TABLET Take 40 mg by mouth once yoli* RIVAROXABAN 20 MG TABLET Take 1 tablet by mouth daily * QUINAPRIL 20 MG TABLET Take 1 tablet by mouth twice * TRIAMCINOLONE ACETONIDE 0.025* Apply 1 application to affect* FLUTICASONE 250 MCG-SALMETERO* Inhale 1 Puff as instructed t* ALBUTEROL SULFATE HFA 90 MCG/* Inhale 2 Puffs as instructed * EMOLLIENT COMBINATION NO.10 T* APPLY 1 APPLICATION TO AFFECT* VITAMIN B COMPLEX ER TABLET,E* Take 1 tablet by mouth once d* VITAMIN E 400 UNIT TABLET Take 1 tablet by mouth once d* MULTIVITAMIN ORAL Take 1 tablet by mouth once d* ACETAMINOPHEN 500 MG TABLET Take one(1) tablet every four* Problem List As Of Date 05/14/2018 Noted Resolved Breast neoplasm [D49.3] Priority: B More... Essential Hypertension, Benign [I10] INVALID FOR* Priority: A Osteoarth NOS-Unspec [M19.90] INVALID FOR* Malig Yayo Lymph-Axilla/Arm [C77.3] INVALID FOR*07/10/2010 Sebaceous Cyst [L72.3] INVALID FOR*07/10/2010 Unspecified Pleural Effusion [J90] INVALID FOR*07/10/2010 SCREEN (SEE ALSO ADMISSION) CANCER - COLON [Z*INVALID FOR*07/10/2010 Emphysema of lung (HCC) [J43.9] INVALID FOR* Priority: A Tobacco Use Disorder [F17.200] INVALID FOR* POLYP COLON [D12.6] INVALID FOR* Priority: B More... DIVERTICULOSIS [K57.30] INVALID FOR*02/01/2017 Priority: B Routine general medical examination at a [facility]*INVALID FOR*08/01/2012 Class: Chronic More... Routine gynecological examination [Z01.419] INVALID FOR*08/01/2012 Class: Chronic More... RIB LESION, UNCERTAIN BEHAVIOR [M99.9] INVALID FOR*08/14/2016 Priority: A More... Mixed Hyperlipidemia [E78.2] INVALID FOR* Priority: A Back pain [M54.9] INVALID FOR* Priority: B Personal history of breast cancer [Z85.3] INVALID FOR* COPD (chronic obstructive pulmonary disease) (H* 08/14/2016 Lumbar radiculopathy [M54.16] INVALID FOR* DDD (degenerative disc disease), lumbar [M51.36]INVALID FOR* Lumbar scoliosis [M41.9] INVALID FOR* Persistent atrial fibrillation (HCC) [I48.1] INVALID FOR* More... Mass of upper lobe of lung [R91.8] INVALID FOR* More... Acute systolic CHF (congestive heart failure) (*INVALID FOR* More... Encounter Status:Closed by GIDEON DURBIN on 05/14/18 MISCELLANEOUS LAB Collected: 05/09/2018 Status: F Source: [place] PROCEDURE 12:08 PM [facility] REPOSITORY Order Comment: Comments: [id number], [id number] Test(s) Ordered: PD-L1 [id number] TYPE CODE TESTS RESULT OUT OF RANGE REFERENCE UNITS LAB L801.1541 Normal MIS LAB TEST Result Comment: Please see Pathology Report Performed By: #### L801.1541 #### [facility] [address] [place], [address] MISCELLANEOUS LAB Collected: 05/09/2018 Status: F Source: [place] PROCEDURE 2 12:08 PM [facility] REPOSITORY Order Comment: Comments: [id number], [id number] List Test(s) Ordered by Physician: EGFR/KRAS/ALK [id number] TYPE CODE TESTS RESULT OUT OF RANGE REFERENCE UNITS LAB L801.1543 Normal [facility] [place] TEST 2 Result Comment: Please see Pathology Report Performed By: #### L801.1543 #### [facility] [address] [place], [address] CHEST INSP/EXP 2 VIEW Observed: 05/09/2018 Status: F Source: [place] 10:40 AM [facility] REPOSITORY [facility] Imaging Services [address] [place] [address] Chest Insp/Exp 2 View MR#: [id number] Acct: [id number] Name: CECILE VALLEJO Rep #: [id number] : 1945 F 72 From: Kenneth Salinas MD PCP: Juan Mcdaniel MD Status: REG CLI Study: Chest Insp/Exp 2 View Date of Exam: 05/09/18 Exam# [id number] Ordering Dr: Kenneth Salinas MD STUDY: X-RAY CHEST REASON FOR EXAM: Female, 72 years old. Status post left lung biopsy. TECHNIQUE: AP expiration and inspiration views were obtained. COMPARISON: Comparison is made with prior study dated April 16, 2018. FINDINGS: The patient is status post left upper lobe biopsy. There is no evidence of pneumothorax. Stable nodular densities in the left mid lung. RAD/Chest Insp/Exp 2 View IMPRESSION: Status post left upper lobe biopsy. There is no evidence of pneumothorax. Electronically Signed: Kenneth Salinas MD at 14:52 EDT Tel [phone], Service support , CC: Kenneth Salinas MD; Juan Mcdaniel MD [employer] Consultant: Signed BIOPSY/INJ OR NEEDLE Observed: 05/09/2018 Status: F Source: [place] PLACEMENT 9:33 AM [facility] REPOSITORY [facility] Imaging Services [address] [place] [address] Biopsy/Inj or Needle Placement MR#: [id number] Acct: [id number] Name: CECILE VALLEJO Rep #: [id number] : 1945 F 72 From: Kenneth Salinas MD PCP: Juan Mcdaniel MD Status: REG CLI Study: Biopsy/Inj or Needle Placement Date of Exam: 05/09/18 Exam# [id number] Ordering Dr: Jayleen Burr CHIEF CLIENT OFFICER-C PROCEDURE: CT GUIDED CORE NEEDLE BIOPSY OF A left upper lobe peripheral LUNG LESION INDICATION: Female, 72 years old. Metastatic breast cancer. PHYSICIAN: Dr. Brad GILBERT CONSENT: Written informed consent was obtained having explained the risks, benefits and alternatives in detail with the patient who accepted the risks and agreed to proceed. Laboratory review and clinical assessment was performed. CONSCIOUS SEDATION PROTOCOL: The Drugs used were: 1 mg Versed, IV., and 25 mcg Fentanyl, IV. The sedation time was: 18 minutes. Conscious sedation was started 10:15 AM and terminated at 10:33 AM. The conscious sedation protocol was independently monitored. RADIATION DOSAGE (If Supplied By Facility): CTDIvol = ( 22 ) mGy, DLP = ( 702.47 ) mGycm Individualized dose optimization techniques were used for this CT. TECHNIQUE: The patient was placed in the supine position. A noncontrast CT was performed to localize the lesion in the anterior aspect of the left upper lobe . The skin surface was prepped and draped in a sterile fashion. 1% lidocaine was used for local anesthesia. Using CT guidance, a 18-gauge coaxial biopsy device was advanced to the periphery of the lesion. A total of 6 core specimens were obtained. The specimens were placed in a formalin solution. A post procedure CT demonstrated no adverse sequelae or pneumothorax. The patient tolerated the procedure well without adverse event. A negative biopsy does not exclude malignancy. Further imaging or clinical followup based on patient condition and degree of clinical suspicion for malignancy. Suggest rebiopsy, if biopsy results do not match with clinical scenario. CT/Biopsy/Inj or Needle Placement IMPRESSION: 1. CT directed core needle biopsy of the left upper lobe using CT image guidance with image documentation as described. Pathology results are pending. 2. Conscious Sedation protocol utilized with independent monitoring. Electronically Signed: Kenneth Salinas MD at 12:49 EDT Tel [phone], Service support , CC: Jayleen Burr; Juan Mcdaniel MD [employer] Consultant: Signed IMMUNOHISTOCHEMISTRY Observed: 05/09/2018 Status: F Source: [place] 12:00 AM [facility] REPOSITORY Patient: CECILE VALLEJO : 1945 (72/F) Acct Num: [id number] Phys: Jayleen Burr NP Unit Num: [id number] Loc: CT Specimen: [id number] Received: 05/12/18958 Spec Type: IMMUNO TISSUES TISSUES: Lung, NOS - #2 SPECIMEN INFORMATION: Tissue Source: Left upper lung Clinical Info: Left upper lung mass Specimen Number: [id number] #2 CPT code: 52098, 28201 x10 METHODOLOGY: Deparaffinized sections of prefer/formalin-fixed tissue or PAP/DQ stained slides are incubated with monoclonal/polyclonal antibodies/oligonucleotide probes. Localization is made via biotin free immunoperoxidase method. Appropriate controls are performed and reacted as expected. Results on target cell population are indicated in the following table: RESULTS: ANTIBODY / CLONE RESULT Block 2 CK7 (OV-TL12/30) positive CK20 (KS20.8) negative P40 (BC28) negative CK5-6 (D5 AND 1684) negative TTF-1 (8G7G3/1) positive Napsin A (Rabbit Polyclonal) positive ER (6F11) negative MS (1E2) negative GATA3 (L50-823) negative Mammaglobin (31A5) negative RCC (PN-15) negative These tests were developed and their performance characteristics determined by [facility]. They may not have been cleared or approved by the U.S. Food and Drug Administration. The FDA has determined that such clearance or approval is not necessary. INTERPRETATION: Left upper lung, CT-guided biopsy: Non-small cell carcinoma, favor adenocarcinoma, consistent with lung primary. SJ:jayden 05/13/18 PHYSICIAN AND INSTITUTION [place] [address] [place], [place] [address] Signed Pasha Trejo 05/13/18 <signature on file> Performed By: #### PIMM #### [facility] [place], [address] ASP RADIOLOGY (TISSUE) Observed: 05/09/2018 Status: F Source: ARV[place] 12:00 AM [facility] REPOSITORY Patient: CECILE VALLEJO : 1945 (72/F) Acct Num: [id number] Phys: Jayleen Burr CHIEF CLIENT OFFICER Unit Num: [id number] Loc: CT Specimen: [id number] Received: 05/09/18 - 1436 Spec Type: ASP RAD TISSUES TISSUES: Lung, NOS ADDENDUM Addendum Number 1 ([facility]) PD-L1 IMMUNOHISTOCHEMISTRY ANALYSIS FROM [facility] INTERPRETATION: No expression. Tumor proportion score 0% ALK FISH, LUNG, NON-SMALL CELL FROM [facility] FISH RESULT: No result. INTERPRETATION: Repeated FISH testing on the paraffin block submitted was unsuccessful. Please see complete report in e-chart or EMR for complete details. Addendum Signed Pasha Trejo 06/02/18 <signature on file> COMMENT The specimen is evaluated at the time of CT-guided biopsy by Dr. Trejo. Immediate Evaluation = Malignant cells present, non-small cell carcinoma. Immunohistochemistry ([id number]) supports the above diagnosis. Please make reference to previous specimen ([id number]) right breast, core biopsy with diagnosis of infiltrating ductal carcinoma and ([id number]) CT-guided lung mass, core biopsy with diagnosis of nonsmall cell carcinoma, adenocarcinoma. Molecular studies on the tumor will be reported separately as an addendum. GROSS DESCRIPTION Received in fixative is one container labeled with the patient's name and designated left upper lung mass, CT-guided core biopsy. The specimen consists of multiple elongated fragments of bliss soft tissue that in aggregate measure 1.5 x 0.3 x 0.1 cm. The entire specimen is submitted in two cassettes. One touch imprint is prepared at the time of core biopsy. / PADMAJA:jayden 05/09/18 TC:0 CPT: 37638, 42390 HEADER OPERATION: CT-guided left lung biopsy PRE-OP DIAGNOSIS: RICHARD lung mass TISSUE SUBMITTED: Left upper lung 18g core x4 MICROSCOPIC DESCRIPTION Slides are reviewed. MICROSCOPIC DIAGNOSIS Left upper lung lobe mass, CT-guided core biopsy: Malignant cells consistent with non-small cell carcinoma, adenocarcinoma. See comment. PADMAJA:jayden 05/12/18 Signed Pasha Trejo 05/13/18 <signature on file> Performed By: #### TONI #### [facility] [place], [address] CBC-COMPLETE BLOOD CNT Collected: 05/07/2018 Status: F Source: [place] NO DIFF 8:30 AM [facility] REPOSITORY TYPE CODE TESTS RESULT OUT OF RANGE REFERENCE UNITS LAB L100.1000 4.4-11.0 K/mm3 Normal WBC 4.9 LAB L100.1200 4.2-5.4 M/mm3 Normal RBC 4.75 LAB L100.1300 12.0-15.0 g/dl Normal HGB 14.6 LAB L100.1400 37-47 % Normal HCT 45.7 LAB L100.1500 81-99 fL Normal MCV 96.2 LAB L100.1600 27.0-32.0 pg Normal MCH 30.7 LAB L100.1700 32-36 g/gl Low MCHC 31.9 LAB L100.1810 11.6-14.6 % Normal RDW CV 13.9 LAB L100.1820 35.1-43.9 fl High RDW SD 49.0 LAB L100.1900 150-450 K/mm3 Normal PLT 192 LAB L100.2000 6.2-12.0 fl Normal MPV 9.9 Performed By: #### L100.0500, L300.3900, L300.4310 #### [facility] [address] [place], [address] PROTHROMBIN TIME W/INR Collected: 05/07/2018 Status: F Source: [place] 8:30 AM [facility] REPOSITORY TYPE CODE TESTS RESULT OUT OF RANGE REFERENCE UNITS LAB L300.4150 11.7-14.9 SECONDS Normal PROTIME 14.9 LAB L300.4200 Normal INR 1.2 Performed By: #### L100.0500, L300.3900, L300.4310 #### [facility] [address] [place], [place], [address] PARTIAL THROMBOPLAST Collected: 05/07/2018 Status: F Source: [place] TIME 8:30 AM [facility] REPOSITORY TYPE CODE TESTS RESULT OUT OF RANGE REFERENCE UNITS LAB L300.4310 24.1-36.2 Seconds Normal PTT 28.6 Performed By: #### L100.0500, L300.3900, L300.4310 #### [facility] [address] [place], [address] PROGRESS Observed: 05/05/2018 Status: COMPLETED Source: [place] 10:22 AM [facility] [place] REPOSITORY HNO ID: [id number] Author: Teodora Rahman Service: (none) Author Type: Cardiac Care Nurse Type: Progress Notes Filed: 05/05/2018 10:23 AM Note Text: Radiology Service Progress Note PATIENT NAME: Cecile Vallejo DATE OF SERVICE: May 05, 2018 TIME: 10:22 AM PATIENT IDENTITY VERIFICATION COMPLETED USING TWO (2) METHODS: Patient confirmed name verbally and Date of . PATIENT GENDER DATA: Female. status: : No status: N/A PATIENT RELEVANT IMPLANT DATA REVIEWED: Not Applicable RADIOLOGY DEPARTMENT: Ultrasound RUQ ABD wl Spleen PERIPHERAL IV DATA: Not applicable SIGNED BY: TEODORA RAHMAN RDMS RVT May 05, 2018 10:22 AM US ABD SPLEEN -NB Observed: 05/05/2018 Status: F Source: [place] 10:21 AM [facility] REPOSITORY * * *Final Report* * * DATE OF EXAM: May 05 2018 10:21AM [facility] 1232 - US ABD SPLEEN -NB / PROCEDURE REASON: Abnormal levels of other serum enzymes * * * * Physician Interpretation * * * * EXAMINATION: RIGHT UPPER QUADRANT ULTRASOUND CLINICAL HISTORY: Elevated liver enzymes. TECHNIQUE: Sonography of the right upper quadrant and spleen was performed. Images were obtained and stored in a permanent archive. MQ: URUQ_1 COMPARISON: CT 04/11/2018 RESULT: Pancreas: Normal sonographic appearance. Portions obscured: tail Liver: Echotexture: Normal, homogeneous. Echogenicity: Normal Surface contour: Smooth Lesions: None. Biliary: No intrahepatic biliary duct dilation. CBD: 0.3 cm at the hilum. Gallbladder: Upper normal in size measuring 9.9 x 4.6 x 3.8 cm. -Contents: Cholelithiasis and sludge present. 1.1 cm nonshadowing stone versus sludge in the gallbladder neck. -Wall: Normal -Other: No pericholecystic fluid. Right Kidney: No hydronephrosis. Ascites: None. Spleen: The craniocaudal length of the spleen is 9.3 cm, normal. There are no splenic lesions. IMPRESSION: CHOLELITHIASIS WITHOUT CHOLECYSTITIS. [employer] Consultant: VICTORIANO Transcribe Date/Time: May 05 2018 11:30A Dictated by : SUMAN DENT MD This examination was interpreted and the report reviewed and electronically signed by: SUMAN DENT MD on May 05 2018 11:35AM EST [id number] US ABD RIGHT UPPER Observed: 05/05/2018 Status: F Source: [facility] 10:21 AM [facility] REPOSITORY * * *Final Report* * * DATE OF EXAM: May 05 2018 10:21AM [facility] 1032 - US ABD RIGHT UPPER QUADRANT / PROCEDURE REASON: Abnormal levels of other serum enzymes * * * * Physician Interpretation * * * * EXAMINATION: RIGHT UPPER QUADRANT ULTRASOUND CLINICAL HISTORY: Elevated liver enzymes. TECHNIQUE: Sonography of the right upper quadrant and spleen was performed. Images were obtained and stored in a permanent archive. MQ: URUQ_1 COMPARISON: CT 04/11/2018 RESULT: Pancreas: Normal sonographic appearance. Portions obscured: tail Liver: Echotexture: Normal, homogeneous. Echogenicity: Normal Surface contour: Smooth Lesions: None. Biliary: No intrahepatic biliary duct dilation. CBD: 0.3 cm at the hilum. Gallbladder: Upper normal in size measuring 9.9 x 4.6 x 3.8 cm. -Contents: Cholelithiasis and sludge present. 1.1 cm nonshadowing stone versus sludge in the gallbladder neck. -Wall: Normal -Other: No pericholecystic fluid. Right Kidney: No hydronephrosis. Ascites: None. Spleen: The craniocaudal length of the spleen is 9.3 cm, normal. There are no splenic lesions. IMPRESSION: CHOLELITHIASIS WITHOUT CHOLECYSTITIS. [employer] Consultant: VICTORIANO Transcribe Date/Time: May 05 2018 11:30A Dictated by : SUMAN DENT MD This examination was interpreted and the report reviewed and electronically signed by: SUMAN DENT MD on May 05 2018 11:35AM EST [id number] PULMONARY VISIT REPORT Observed: 05/02/2018 Status: F Source: [place] 1:20 PM [facility] REPOSITORY Pulmonary Medicine of [address] [place] [address] OFFICE VISIT Date of Service: 05/01/18 MR#: [id number] Acct: [id number] Name: CECILE VALLEJO Rep #: [id number] : 1945 Provider: Jayleen Burr Age/Sex: 72/F Location: [facility] Status: Signed with Addenda ADDENDUM by Jayleen Burr on 05/02/18 at 1320 Addendum entered and electronically signed by RAFAEL Conner 05/02/18 13:20: Contacted the PCP, left a message with his nurse, regarding the patient's possible DVT, no additional testing was ordered, patient is back on appropriate therapy. Assessment AND Plan 1. Lung mass R91.8 Plan - RAFAEL Conner Explained to the patient adequate tissue sample had actually been obtained for the test that was requested, however additional tissue is necessary for more specific decisions regarding treatment. She does convey understanding. She is adamant that she does not wish to seek any treatment outside of blister. We discussed the possibility of being referred to [place] for a navigational bronchoscopy, as Dr. Campos has reviewed her CT results and believes the lesion in question is to peripherally based for a standard bronchoscopy. Another option would be that the patient have a second CT-guided biopsy. After discussing the benefits of each test, the patient chooses to remain here in [place] and have a repeat CT-guided biopsy. She states that she had a good experience with the previous CT-guided biopsy. She has a follow-up visit scheduled with Dr. Campos on June 11, which we will keep. She has also been educated that if she is needed to be seen prior to that she will be contacted for additional appointment. Otherwise, she has also been encouraged to contact our office in case of any acute needs, she conveys understanding. Blood work have been ordered to be obtained prior to CT-guided biopsy. The patient has been advised to hold her Xarelto 2 days prior to the scheduled procedure, she conveys understanding. Orders Orders: 2. Chronic obstructive pulmonary disease, unspecified COPD type J44.9 Plan - RAFAEL Conner She does not appear to be an exacerbation of her COPD today. No change in maintenance medications. No additional testing with regard to her COPD at this time. Keep previously scheduled routine follow-up with Dr. Campos. 3. Leg edema, right R60.0 Plan - RAFAEL Conner New onset of right lower extremity edema, this did occur after she was told to hold her anticoagulation for 7 days prior to the CT-guided biopsy. It is suspicious of a right lower extremity DVT, however she is back on her anticoagulation. Given that there would be no change in management of this problem I discussed with the patient and we have decided to defer further evaluation at this time. Considered right lower extremity venous ultrasound, deferred at this time. Continue anticoagulation as previously ordered. Monitor the lower extremity edema contact the office if it worsens. Should resolve with time. Discussed this case with my attending physician today. Plan Detail Other Orders Orders: 05/02/18 1320 <Electronically signed by Jayleen CARVAJALC> Date Jayleen Burr cc: Juan Mcdaniel MD * Signed Assessment AND Plan 1. Lung mass R91.8 Status Acute Plan Explained to the patient adequate tissue sample had actually been obtained for the test that was requested, however additional tissue is necessary for more specific decisions regarding treatment. She does convey understanding. She is adamant that she does not wish to seek any treatment outside [facility]. We discussed the possibility of being referred to [facility] for a navigational bronchoscopy, as Dr. Campos has reviewed her CT results and believes the lesion in question is to peripherally based for a standard bronchoscopy. Another option would be that the patient have a second CT-guided biopsy. After discussing the benefits of each test, the patient chooses to remain here in [place] and have a repeat CT-guided biopsy. She states that she had a good experience with the previous CT-guided biopsy. She has a follow-up visit scheduled with Dr. Campos on June 11, which we will keep. She has also been educated that if she is needed to be seen prior to that she will be contacted for additional appointment. Otherwise, she has also been encouraged to contact our office in case of any acute needs, she conveys understanding. Blood work have been ordered to be obtained prior to CT-guided biopsy. The patient has been advised to hold her Xarelto 2 days prior to the scheduled procedure, she conveys understanding. Orders Orders: 2. Chronic obstructive pulmonary disease, unspecified COPD type J44.9 Plan She does not appear to be an exacerbation of her COPD today. No change in maintenance medications. No additional testing with regard to her COPD at this time. Keep previously scheduled routine follow-up with Dr. Campos. 3. Leg edema, right R60.0 Plan New onset of right lower extremity edema, this did occur after she was told to hold her anticoagulation for 7 days prior to the CT-guided biopsy. It is suspicious of a right lower extremity DVT, however she is back on her anticoagulation. Given that there would be no change in management of this problem I discussed with the patient and we have decided to defer further evaluation at this time. Considered right lower extremity venous ultrasound, deferred at this time. Continue anticoagulation as previously ordered. Monitor the lower extremity edema contact the office if it worsens. Should resolve with time. Discussed this case with my attending physician today. Plan Detail Other Orders Orders: HPI FOLLOW UP PER DMB: Chief Complaint: None HPI Comments Details: This patient presents the office today to follow- up after having a CT-guided biopsy preformed on April 16, 2018. Pathology returned consistent with non-small cell lung cancer, adenocarcinoma. Unfortunately, suboptimal quantities of tissue was available for more specific evaluation to direct treatment. The oncologist has requested that the patient be considered for a bronchoscopy for additional tissue. She is here today to discuss options. She is in a wheelchair, wearing nasal cannula oxygen and accompanied today by her . She reports that she continues to smoke half pack cigarettes per day. She also has a cough that is productive of white sputum, this is her baseline sputum production. She continues to experience dyspnea on exertion, this has not worsened. She does admit to occasional hoarseness. She reports that all of these symptoms are baseline for her and she has no acute symptoms or concerns today. She has not been seen in the ED or urgent care for any respiratory problems since her last office visit. She has not required any antibiotics or prednisone for breathing problems. She is compliant with Advair twice daily, as well as Spiriva once daily. She reports that since initiation of the Spiriva she has noticed a decrease in her shortness of breath on exertion. They are very pleased with her response to the Spiriva. He has a Ventolin rescue inhaler which she reports she needs rarely. When questioned why she is here today she reports that she has been made aware that the biopsy results did show some type of lung cancer. And she was also told that they did not get enough tissue. They have not discussed treatment type at that point. Intake Vital Signs05/01/18 Height 5 ft 4 in 05/01/18 Weight: 172 lb Intake Visit Reasons: FOLLOW UP PER DMB Chief Complaint: Cough Allergies albuterol sulfate [From Combivent] Allergy (Verified 04/09/18 12:50) Swelling ipratropium bromide [From Combivent] Allergy (Verified 04/09/18 12:50) Swelling metoprolol Allergy (Verified 04/09/18 12:50) Laryngospasms Sulfa (Sulfonamide Antibiotics) Allergy (Verified 04/09/18 12:50) Rash beclomethasone [From Qvar] Adverse Reaction (Verified 04/09/18 12:50) COUGHING benzalkonium chloride [From Merthiolate (benzalkonium)] Adverse Reaction (Verified 04/09/18 12:50) Other codeine Adverse Reaction (Verified 04/09/18 12:50) doesn't remember doxycycline Adverse Reaction (Verified 04/09/18 12:50) Abd cramps/diarrhea formoterol fumarate [From Dulera] Adverse Reaction (Verified 04/09/18 12:50) Other hydrochlorothiazide Adverse Reaction (Verified 04/09/18 12:50) Other ibuprofen [From Advil] Adverse Reaction (Verified 04/09/18 12:50) Other iodine Adverse Reaction (Verified 04/09/18 12:50) Itching merbromin Adverse Reaction (Verified 04/09/18 12:50) Other mometasone furoate [From Dulera] Adverse Reaction (Verified 04/09/18 12:50) Other oseltamivir [From Tamiflu] Adverse Reaction (Verified 04/09/18 12:50) uterine pain prednisone Adverse Reaction (Verified 04/09/18 12:50) Abd cramps/diarrhea PLASTIC TAPE Allergy (Uncoded 04/09/18 12:50) Rash Medications Fluticasone/Salmeterol [Advair 250/50 Mcg Diskus] 1 puff INHALATION BID 04/11/15 [History Confirmed 04/16/18] Quinapril HCl [Accupril] 20 mg PO BID 04/11/15 [History Confirmed 04/16/18] Acetaminophen [Tylenol] 500 mg PO Q4H PRN PRN 10/16/16 [History Confirmed 04/16/18] Albuterol Inhaler [Ventolin Hfa] 1 - 2 puff INHALATION Q4H PRN PRN 10/16/16 [History Confirmed 04/16/18] Multivitamins,Therapeutic [Multivitamin] 1 tab PO DAILY 10/16/16 [History Confirmed 04/16/18] Vitamin B Complex 1 ea PO DAILY 10/16/16 [History Confirmed 04/16/18] Vitamin E 400 unit PO DAILY 10/16/16 [History Confirmed 04/16/18] carvedilol 25 mg tablet 25 mg PO BID #180 tab 01/20/18 [Rx Confirmed 04/16/18] furosemide 40 mg tablet 40 mg PO DAILY #90 tab 01/20/18 [Rx Confirmed 04/16/18] rivaroxaban 20 mg tablet 20 mg PO DINNER #90 tab 01/20/18 [Rx Confirmed 04/16/18] tiotropium bromide 2.5 mcg/actuation mist for inhalation 2 puff INHALATION QDAY #1 device 03/04/18 [Rx Confirmed 04/16/18] Emollient Combination No.10 [Prutect] 45 gm TP 04/16/18 [History] Triamcinolone 0.025% Cream [Kenalog] 1 applic TOPICAL BID 04/16/18 [History Confirmed 04/16/18] [facility] Medical History Thrush, oral (Acute) Lung mass (Acute) Suspected chronic obstructive pulmonary disease based on initial evaluation (Chronic) Acute CHF (Acute) New onset A. fib with RVR (Acute) History of breast cancer (Chronic) COPD (chronic obstructive pulmonary disease) (Chronic) Hypertension (Chronic) Surgical History History of left mastectomy (Resolved) History of lumpectomy of right breast (Resolved) History of tubal ligation (Resolved) polyp removal (Resolved) Family History Father Emphysema of lung Sister Cancer uterine cancer Social History Smoking Status: Current every day smoker second hand exposure: Yes alcohol intake: current alcohol intake frequency: a few times a month Alcohol type: wine substance use type: does not use caffeine: No what type of physical activity do you participate in: none seatbelt use: always do you feel safe at home: Yes Review of Systems Const CONSTITUTIONAL: Negative anorexia, body ache, chills, daytime sleepiness, fever(s), night sweats, oral thrush, stops breathing during sleep, weight loss, sleeping in chair, fatigue, weight loss, weight gain, frequent colds, seasonal allergies, other, headache(s) or orthopnea EETM Ear Nose Throat Mouth: Positive hearing normal and hoarseness; negative hard of hearing, dry mouth in morning, change in vision, itchy eyes, eye pain, swallowing Difficulty, ear pain, nose bleed, headache(s), mouth pain, nasal congestion, nasal discharge, sinus pain, sinus pressure, sore throat or other Cardio Cardiovascular: Negative chest pain, chest pain at rest, chest pain with activity, irregular heart rhythm, edema, shortness of breath when lying down, palpitations, murmur or other Resp Respiratory: Positive as per HPI, shortness of breath shortness of breath: Positive with activity and cough cough: Positive productive color: Positive white; negative pain with cough, wheezing, chest congestion, chest tightness, pain on inspiration, inhalers, increase use of rescue inhalers, snoring, apnea or other Gastro Gastrointestional: Negative bloody stools, change in appetite, difficulty swallowing, reflux, hematemesis, melena stool, loose stool, constipation or other Genitourinary: Negative blood in urine, nocturia, pain with urination or other Musc Musculoskeletal: Negative body pain, back pain, neck pain or other Skin/Breast Skin/Breast: Negative dry skin, itching, rash, unusual bruising, breast lump or other Neuro Neurological: Negative restless legs, confusion, weakness or other Psych Psychocological: Negative abnormal sleep pattern, anxiety, thoughts of hurting self/others, hopelessness or other Lymph Lymphatic: Negative easy bleeding, easy bruising, swollen lymph nodes or other Exam Const Constitutional: Positive conversant, cooperative, in no acute respiratory distress, good hygiene and frail appearing Head Head: Positive normocephalic and atraumatic; negative cyanosis of lips/distal nose Eyes Eye: Positive clear conjunctiva and nystagmus; negative scleral abnormality Ears Ear: Positive hearing normal and external ears normal; negative hard of hearing Nose Nose: Positive external nose normal and no nasal discharge; negative epistaxis Mouth Mouth: Positive oral mucosae normal; negative malodorous breath Neck Neck: Positive normal visual inspection, full ROM and trachea midline; negative lymphadenopathy, JVD or tender Chest Wall Chest: Positive symmetric chest movement and increased A/P diameter Resp lung sounds: Positive diminished, clear to auscultation, normal expiratory time and normal respiratory effort; negative wheezes, wheeze present on forced exhalation, rhonchi, rales or dullness to percussion Cardio Cardiac: Negative murmur, regular rate or regular rhythm GI GI: Positive normal to inspection and normal bowel sounds; negative distended Genitourinary: Positive deferred Musc Musculoskeletal: Positive ROM normal and in a wheelchair; negative kyphosis or scoliosis Skin Pulmonary Skin Exam: Positive intact; negative rash, lesion, ulcers, erythema, scaly or dermal atrophy Pulses Pulse: Yes pulses normal x4 extremities Extremities Extremities: Yes edema Location: lower extremity location: Right pitting +2, Yes capillary refill normal, Yes clubbing, No cyanosis, No stasis dermatitis Neuro Neurologic: Yes conversant, Yes no focal neuro deficits, Yes cooperative, Yes normal cognition, Yes normal concentration, Yes understands questions, Yes normal coordination Lymph Lymphatic: No lymphadenopathy, No tenderness, No cervical adenopathy, No axillary adenopathy Psych Appearance: Positive grossly normal, eye contact and well kempt Mental Status: Positive mental status grossly normal Mood: Positive labile mood Affect: Positive irritable affect Coding Level of Care Code Off vis,est,level 5 Diagnoses Lung mass R91.8 Chronic obstructive pulmonary disease, unspecified COPD type J44.9 COPD type: unspecified COPD Leg edema, right R60.0 05/02/18 0850 <Electronically signed by Jayleen HALL> Date Jayleen HALL Cosigner Signature: Date (if applicable) CC: Juan Mcdaniel MD PROGRESS Observed: 04/28/2018 Status: COMPLETED Source: [place] 4:31 PM [facility] [place] REPOSITORY HNO ID: [id number] Author: Apolinar Cazares Service: (none) Author Type: Physician Type: Progress Notes Filed: 04/29/2018 1:27 PM Note Text: Diagnosis: 1) Breast cancer. 2) Lung mass. HPI: The patient is 72-year-old female with past medical history significant for bilateral breast cancer as outlined below, chronic back pain, tobacco use, COPD and atrial fibrillation. Patient was originally diagnosed in September 1996 with an infiltrating ductal carcinoma the left breast. It was a poorly differentiated tumor, grade 3 measuring 3 cm in diameter. There was also metastatic disease to 3 of 7 axillary nodes and lymphatic invasion of the nipple. She underwent a left modified radical mastectomy. Estrogen receptors were quantified less than 2% and progesterone receptors were less than 2%. She then received 3 cycles of FAC between 11/27/1996 through 01/07/1997. She had significant anorexia malaise and discontinued treatment after the third cycle. She went on to receive radiation treatment to the chest wall. In 2003 she was found to have an abnormality in the right breast. She underwent lumpectomy and sentinel lymph node dissection on 01/04/2004. 2 sentinel lymph nodes were positive for metastatic disease and subsequent axillary exploration showed no further lymph nodes in the specimen. Tumor in the breast measured 1 cm. Estrogen receptors quantified at 41%. MS was negative. HER-2 was strongly overexpressed. On 12/30/2017, she was directed to emergency room [facility] for progressive lower extremity edema and increasing shortness of breath. She was found to be in RVR atrial fibrillation. While in the emergency room she underwent a CTA of the chest because of her complaints. There was no evidence of pulmonary embolism but there was note made of a dense calcified mass involving the anterior portion of the third rib on the left. Patient was also noted be status post left mastectomy along with axillary lymph node dissection. The calcified mass was noted to be unchanged when compared to a CT done in June 2010 but there was development of a soft tissue mass versus area of scarring in the left upper lobe measuring 2.9 x 1.9 cm. No other pulmonary masses or nodules were visualized. Presents for ongoing oncologic management. Interim history: PET 02/03/2018: IMPRESSION: 1. Increased fluorine labeled glucose uptake defined in the left mid anterior hemithorax pulmonary parenchyma, left upper lobe fulfills quantitative criteria for viable neoplasm. Histopathologic analysis is recommended. (Sherri et al, Annals of Internal Medicine, 138:724, 2003). 2. Heterogeneous enhanced glucose metabolism manifest in the breast does not fulfill quantitative criteria for viable neoplasm. 3. The circumferential increase in radiopharmaceutical concentration demonstrated in the left anterior chest wall does not fulfill quantitative criteria for malignant transformation. CT guided biopsy of lung mass on 04/16/2018: MICROSCOPIC DIAGNOSIS CT guided lung mass, core biopsy: Non small cell carcinoma, adenocarcinoma. COMMENT The specimen is evaluated at the time of CT by Dr. Trejo. Immediate Evaluation = Atypical cells consistent with plasma cells are noted. Immunohistochemistry ([id number]) supports the above diagnosis. The tumor is positive for CK7. The tissue was limited and exhausted in the block. Clinical correlation is suggested. A metastatic carcinoma cannot be excluded. She continues to smoke but says she doesn't inhale and never has. She has a chronic cough. She attributes this to a lot of medication she is taking. Her blood pressures elevated but she has white coat hypertension and is very nervous today about discussing biopsy results. No subjective sense a wheeze. Occasional palpitation. No shortness of breath at rest. PMH, medications and allergies personally reviewed by me today. Any changes documented in appropriate section. ROS: Constitutional: Denies episodes of fever and night sweats. Normal appetite. Fatigued. Neuro: Denies ALMEIDA, vertigo, dizziness and imbalance. HEENT: No recent change in voice, vision or hearing. Resp: See above. CVS: See above. GI: Denies dysgeusia. Denies symptoms of stomatitis. Denies dysphagia and odynophagia. Denies reflux, n/v, change in bowel habits and abdominal pain. : Denies dysuria or gross hematuria. No symptoms of bladder outlet obstruction. Endo: Denies hot flashes. Denies polyuria and polydipsia. Denies heat and cold intolerance. Musculoskeletal: See above. Derm: Denies rash. Denies jaundice and diffuse pruritis. Heme: Denies unusual bleeding and unexplained bruising. Psych: Normal mood. PHYSICAL EXAM: Vitals: Blood pressure 164/103, pulse 95, temperature 36.8 ?C (98.2 ?F), weight 79.6 kg (175 lb 8 oz). Well-appearing and in no acute distress. EYES: Sclerae are anicteric bilaterally. NECK: Supple. LYMPHATIC: There is no palpable cervical, supraclavicular or axillary adenopathy. RESPIRATORY: Inspiratory breath sounds are of diminished intensity in all dawson. Coarse rhonchi throughout. CARDIOVASCULAR: Rhythm is regular. BREAST: Left mastectomy site is well-healed and unremarkable. There is no particular palpable chest wall mass or protruding rib. The area is not tender. ABDOMEN: The abdomen is nondistended. No organomegaly. No tenderness. Extremities: Mild swelling with pitting at the ankles bilaterally. SKIN: No jaundice or rash. No petechiae. NEUROLOGIC: band straightener II-XII are grossly intact. ASSESSMENT/PLAN: (R91.1) Lung nodule (primary encounter diagnosis) (Z85.3) Personal history of breast cancer Assessment: -The patient is a 72-year-old female whose had 2 primary breast cancers. She has a chronic calcified lesion of the anterior left third rib most likely due to mal-healed fracture. -I reviewed the results of the biopsy which clearly indicated a malignancy. Unfortunately histology and molecular studies beyond that are not obtainable. 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 If that's not feasible then she will require thoracic surgery consultation as we definitely need more tissue for a clear diagnosis and molecular studies if truly lung adenocarcinoma. Plan: -Will contact Dr. Campos. Apolinar Cazares DO CNOVSP Observed: 04/28/2018 Status: COMPLETED Source: [place] 4:10 PM [facility] REPOSITORY Visit (SP) Office ([facility]) CECILE VALLEJO ([id number]) 1945 F Date Time Provider Department 04/28/18 4:10 PM APOLINAR CAZARES During your visit today, we recorded the following information about you: Temperature Pulse Blood pressure Weight 98.2 degrees 95/minute 164/103 79.6 kg Ramona Puckett LPN, LPN 04/28/2018 4:39 PM Signed Est pt. Discuss ct guided bx of lung results NOTE elevated Blood Pressure EZIO Ba DO 04/29/2018 1:27 PM Signed Diagnosis: 1) Breast cancer. 2) Lung mass. HPI: The patient is 72-year-old female with past medical history significant for bilateral breast cancer as outlined below, chronic back pain, tobacco use, COPD and atrial fibrillation. Patient was originally diagnosed in September 1996 with an infiltrating ductal carcinoma the left breast. It was a poorly differentiated tumor, grade 3 measuring 3 cm in diameter. There was also metastatic disease to 3 of 7 axillary nodes and lymphatic invasion of the nipple. She underwent a left modified radical mastectomy. Estrogen receptors were quantified less than 2% and progesterone receptors were less than 2%. She then received 3 cycles of FAC between 11/27/1996 through 01/07/1997. She had significant anorexia malaise and discontinued treatment after the third cycle. She went on to receive radiation treatment to the chest wall. In 2003 she was found to have an abnormality in the right breast. She underwent lumpectomy and sentinel lymph node dissection on 01/04/2004. 2 sentinel lymph nodes were positive for metastatic disease and subsequent axillary exploration showed no further lymph nodes in the specimen. Tumor in the breast measured 1 cm. Estrogen receptors quantified at 41%. MS was negative. HER-2 was strongly overexpressed. On 12/30/2017, she was directed to emergency room [facility] for progressive lower extremity edema and increasing shortness of breath. She was found to be in RVR atrial fibrillation. While in the emergency room she underwent a CTA of the chest because of her complaints. There was no evidence of pulmonary embolism but there was note made of a dense calcified mass involving the anterior portion of the third rib on the left. Patient was also noted be status post left mastectomy along with axillary lymph node dissection. The calcified mass was noted to be unchanged when compared to a CT done in June 2010 but there was development of a soft tissue mass versus area of scarring in the left upper lobe measuring 2.9 x 1.9 cm. No other pulmonary masses or nodules were visualized. Presents for ongoing oncologic management. Interim history: PET 02/03/2018: IMPRESSION: 1. Increased fluorine labeled glucose uptake defined in the left mid anterior hemithorax pulmonary parenchyma, left upper lobe fulfills quantitative criteria for viable neoplasm. Histopathologic analysis is recommended. (Polanco et al, Annals of Internal Medicine, 138:724, 2003). 2. Heterogeneous enhanced glucose metabolism manifest in the breast does not fulfill quantitative criteria for viable neoplasm. 3. The circumferential increase in radiopharmaceutical concentration demonstrated in the left anterior chest wall does not fulfill quantitative criteria for malignant transformation. CT guided biopsy of lung mass on 04/16/2018: MICROSCOPIC DIAGNOSIS CT guided lung mass, core biopsy: Non small cell carcinoma, adenocarcinoma. COMMENT The specimen is evaluated at the time of CT by Dr. Trejo. Immediate Evaluation = Atypical cells consistent with plasma cells are noted. Immunohistochemistry ([id number]) supports the above diagnosis. The tumor is positive for CK7. The tissue was limited and exhausted in the block. Clinical correlation is suggested. A metastatic carcinoma cannot be excluded. She continues to smoke but says she doesn't inhale and never has. She has a chronic cough. She attributes this to a lot of medication she is taking. Her blood pressures elevated but she has white coat hypertension and is very nervous today about discussing biopsy results. No subjective sense a wheeze. Occasional palpitation. No shortness of breath at rest. PMH, medications and allergies personally reviewed by me today. Any changes documented in appropriate section. ROS: Constitutional: Denies episodes of fever and night sweats. Normal appetite. Fatigued. Neuro: Denies ALMEIDA, vertigo, dizziness and imbalance. HEENT: No recent change in voice, vision or hearing. Resp: See above. CVS: See above. GI: Denies dysgeusia. Denies symptoms of stomatitis. Denies dysphagia and odynophagia. Denies reflux, n/v, change in bowel habits and abdominal pain. : Denies dysuria or gross hematuria. No symptoms of bladder outlet obstruction. Endo: Denies hot flashes. Denies polyuria and polydipsia. Denies heat and cold intolerance. Musculoskeletal: See above. Derm: Denies rash. Denies jaundice and diffuse pruritis. Heme: Denies unusual bleeding and unexplained bruising. Psych: Normal mood. PHYSICAL EXAM: Vitals: Blood pressure 164/103, pulse 95, temperature 36.8 ?C (98.2 ?F), weight 79.6 kg (175 lb 8 oz). Well-appearing and in no acute distress. EYES: Sclerae are anicteric bilaterally. NECK: Supple. LYMPHATIC: There is no palpable cervical, supraclavicular or axillary adenopathy. RESPIRATORY: Inspiratory breath sounds are of diminished intensity in all dawson. Coarse rhonchi throughout. CARDIOVASCULAR: Rhythm is regular. BREAST: Left mastectomy site is well-healed and unremarkable. There is no particular palpable chest wall mass or protruding rib. The area is not tender. ABDOMEN: The abdomen is nondistended. No organomegaly. No tenderness. Extremities: Mild swelling with pitting at the ankles bilaterally. SKIN: No jaundice or rash. No petechiae. NEUROLOGIC: band straightener II-XII are grossly intact. ASSESSMENT/PLAN: (R91.1) Lung nodule (primary encounter diagnosis) (Z85.3) Personal history of breast cancer Assessment: -The patient is a 72-year-old female whose had 2 primary breast cancers. She has a chronic calcified lesion of the anterior left third rib most likely due to mal-healed fracture. -I reviewed the results of the biopsy which clearly indicated a malignancy. Unfortunately histology and molecular studies beyond that are not obtainable. 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 If that's not feasible then she will require thoracic surgery consultation as we definitely need more tissue for a clear diagnosis and molecular studies if truly lung adenocarcinoma. Plan: -Will contact Dr. Campos. Apolinar Cazares DO Referring Provider: APOLINAR CAZARES [[id number]] Allergies As of Date: 04/28/2018 Noted Allergy Reaction SULFA (SULFONAMIDE ANTIBIOTICS) 08/08/2005 2 - Rash Comments: SOME SULFA DRUGS Specifically reacted to topical sulfa cream, pt stated. CODEINE 03/05/2008 Comments: Severe headaches COMBIVENT (IPRATROPIUM-ALBUTEROL) 08/25/2012 7 - Swelling DOXYCYCLINE 08/08/2005 5 - Intolerance Comments: Stomach pains..it makes me double over, pt stated. DULERA (MOMETASONE-FORMOTEROL) 09/03/2012 5 - Intolerance Comments: tachycardia GABAPENTIN 06/16/2014 14 - Other: See Comments Comments: Loss of balance HCTZ (AMILORIDE-HYDROCHLOROTHIAZI*01/19/2009 Comments: blurry vision, fatigue IODINE 08/08/2005 MERCUROCHROME (MERBROMIN) 08/08/2005 5 - Intolerance Comments: Wound becomes infected, inflamed AND hyper- reactionary, pt stated. MERTHIOLATE [Other] 08/08/2005 METOPROLOL 07/17/2013 3 - Cough PREDNISONE 01/19/2009 Comments: messed up stomach patient states is able to take in small divided doses QVAR (BECLOMETHASONE) 03/08/2016 14 - Other: See Comments Comments: Reports coughing, headache, dizziness, nausea, wheezing. TAMIFLU (OSELTAMIVIR) 12/30/2017 5 - Intolerance Comments: Reported abdominal pain, changes in breathing, and severe dry mouth tape [Other] 03/28/2006 2 - Rash ADVIL (IBUPROFEN) 08/08/2005 5 - Intolerance Comments: severe headache Date Reviewed: 04/28/2018 Reviewed by: Ramona Galdamez (Ezio) EZIO Puckett - Fully Assessed Reason for Visit: Established Patient [175] Primary Visit Diagnosis:Personal history of breast cancer [Z85.3] Other Visit Diagnosis:Lung nodule [R91.1] Prescriptions as of 04/28/2018 Sig: TIOTROPIUM BROMIDE 2.5 MCG/AC* Inhale 2 Puffs as instructed * RANITIDINE 75 MG TABLET Take 1 tablet by mouth twice * CARVEDILOL 25 MG TABLET Take 25 mg by mouth twice lynda* FUROSEMIDE 40 MG TABLET Take 40 mg by mouth once yoli* RIVAROXABAN 20 MG TABLET Take 1 tablet by mouth daily * QUINAPRIL 20 MG TABLET Take 1 tablet by mouth twice * TRIAMCINOLONE ACETONIDE 0.025* Apply 1 application to affect* FLUTICASONE 250 MCG-SALMETERO* Inhale 1 Puff as instructed t* ALBUTEROL SULFATE HFA 90 MCG/* Inhale 2 Puffs as instructed * EMOLLIENT COMBINATION NO.10 T* APPLY 1 APPLICATION TO AFFECT* VITAMIN B COMPLEX ER TABLET,E* Take 1 tablet by mouth once d* VITAMIN E 400 UNIT TABLET Take 1 tablet by mouth once d* MULTIVITAMIN ORAL Take 1 tablet by mouth once d* ACETAMINOPHEN 500 MG TABLET Take one(1) tablet every four* Medication notes this encounter RANITIDINE 75 MG TABLET >> Ramona Puckett LPN, LPN 04/28/2018 3:35 PM >> RAMONA PUCKETT Mon Apr 28, 2018 3:35 PM Using prn Problem List As Of Date 04/28/2018 Noted Resolved Breast neoplasm [D49.3] Priority: B More... Essential Hypertension, Benign [I10] INVALID FOR* Priority: A Osteoarth NOS-Unspec [M19.90] INVALID FOR* Malig Yayo Lymph-Axilla/Arm [C77.3] INVALID FOR*07/10/2010 Sebaceous Cyst [L72.3] INVALID FOR*07/10/2010 Unspecified Pleural Effusion [J90] INVALID FOR*07/10/2010 SCREEN (SEE ALSO ADMISSION) CANCER - COLON [Z*INVALID FOR*07/10/2010 Emphysema of lung (HCC) [J43.9] INVALID FOR* Priority: A Tobacco Use Disorder [F17.200] INVALID FOR* POLYP COLON [D12.6] INVALID FOR* Priority: B More... DIVERTICULOSIS [K57.30] INVALID FOR*02/01/2017 Priority: B Routine general medical examination at a health*INVALID FOR*08/01/2012 Class: Chronic More... Routine gynecological examination [Z01.419] INVALID FOR*08/01/2012 Class: Chronic More... RIB LESION, UNCERTAIN BEHAVIOR [M99.9] INVALID FOR*08/14/2016 Priority: A More... Mixed Hyperlipidemia [E78.2] INVALID FOR* Priority: A Back pain [M54.9] INVALID FOR* Priority: B Personal history of breast cancer [Z85.3] INVALID FOR* COPD (chronic obstructive pulmonary disease) (H* 08/14/2016 Lumbar radiculopathy [M54.16] INVALID FOR* DDD (degenerative disc disease), lumbar [M51.36]INVALID FOR* Lumbar scoliosis [M41.9] INVALID FOR* Persistent atrial fibrillation (HCC) [I48.1] INVALID FOR* More... Mass of upper lobe of lung [R91.8] INVALID FOR* More... Acute systolic CHF (congestive heart failure) (*INVALID FOR* More... Visit Notes: >> Ramona Puckett LPN Mon Apr 28, 2018 3:36 PM Status: Signed Est pt. Discuss ct guided bx of lung results NOTE elevated Blood Pressure Ramona Puckett LPN Encounter Status:Closed by APOLINAR CAZARES DO on 04/29/18 CHEST INSP/EXP 2 VIEW Observed: 04/16/2018 Status: F Source: [place] 10:20 AM [facility] REPOSITORY [facility] Imaging Services [address] [place] [address] Chest Insp/Exp 2 View MR#: [id number] Acct: [id number] Name: CECILE VALLEJO Rep #: [id number] : 1945 F 72 From: Kenneth Salinas MD PCP: Juan Mcdaniel MD Status: REG CLI Study: Chest Insp/Exp 2 View Date of Exam: 04/16/18 Exam# [id number] Ordering Dr: Kenneth Salinas MD STUDY: X-RAY CHEST REASON FOR EXAM: Female, 72 years old. Post left lung biopsy radiograph. TECHNIQUE: AP inspiration and expiration views. COMPARISON: Comparison is made with prior study dated December 30, 2017. FINDINGS: There is no evidence of pneumothorax on the post left lung biopsy radiographs. RAD/Chest Insp/Exp 2 View IMPRESSION: No evidence of pneumothorax. Electronically Signed: Kenneth Salinas MD at 8:30 EDT Tel [phone], Service support , CC: Kenneth Salinas MD; Juan Mcdaniel MD [employer] Consultant: Signed BIOPSY/INJ OR NEEDLE Observed: 04/16/2018 Status: F Source: [place] PLACEMENT 9:11 AM [facility] REPOSITORY [facility] Imaging Services [address] [place] [address] Biopsy/Inj or Needle Placement MR#: [id number] Acct: [id number] Name: CECILE VALLEJO Rep #: [id number] : 1945 F 72 From: Kenneth Salinas MD PCP: Juan Mcdaniel MD Status: REG CLI Study: Biopsy/Inj or Needle Placement Date of Exam: 04/16/18 Exam# [id number] Ordering Dr: Apolinar Cazares DO PROCEDURE: CT GUIDED CORE NEEDLE BIOPSY OF A anterior left upper lobe LUNG LESION INDICATION: Female, 72 years old. Left upper lobe soft tissue density and overlying bony destruction. PHYSICIAN: Dr. Brad GILBERT CONSENT: Written informed consent was obtained having explained the risks, benefits and alternatives in detail with the patient who accepted the risks and agreed to proceed. Laboratory review and clinical assessment was performed. CONSCIOUS SEDATION PROTOCOL: The Drugs used were: 2 mg Versed, IV., and 50 mcg Fentanyl, IV. The sedation time was: 16 minutes. The contrast sedation protocol was started at 10:00 AM and terminated at 10:16 AM. The conscious sedation protocol was independently monitored. RADIATION DOSAGE (If Supplied By Facility): CTDIvol = ( 18.5 ) mGy, DLP = ( 495.17 ) mGycm Individualized dose optimization techniques were used for this CT. TECHNIQUE: The patient was placed in the supine position. A noncontrast CT was performed to localize the lesion in the anterior aspect of the left upper lobe . The skin surface was prepped and draped in a sterile fashion. 1% lidocaine was used for local anesthesia. Using CT guidance, a 20-gauge coaxial biopsy device was advanced to the periphery of the lesion. A total of 3 core specimens were obtained. The specimens were placed in a formalin solution. A post procedure CT demonstrated no adverse sequelae or pneumothorax. The patient tolerated the procedure well without adverse event. A negative biopsy does not exclude malignancy. Further imaging or clinical followup based on patient condition and degree of clinical suspicion for malignancy. Suggest rebiopsy, if biopsy results do not match with clinical scenario. CT/Biopsy/Inj or Needle Placement IMPRESSION: 1. CT directed core needle biopsy of the anterior left upper lobe pulmonary lesion using CT image guidance with image documentation as described. Pathology results are pending. 2. Conscious Sedation protocol utilized with independent monitoring. Electronically Signed: Kenneth Salinas MD at 11:14 EDT Tel [phone], Service support , CC: Apolinar Mcdaniel MD [employer] Consultant: Signed PROTHROMBIN TIME W/INR Collected: 04/16/2018 Status: F Source: [place] 9:04 AM [facility] REPOSITORY TYPE CODE TESTS RESULT OUT OF RANGE REFERENCE UNITS LAB L300.4150 11.7-14.9 SECONDS Normal PROTIME 14.5 LAB L300.4200 Normal INR 1.1 Performed By: #### L300.3900, L300.4310 #### [facility] [address] [place], [address] PARTIAL THROMBOPLAST Collected: 04/16/2018 Status: F Source: [place] TIME 9:04 AM [facility] REPOSITORY TYPE CODE TESTS RESULT OUT OF RANGE REFERENCE UNITS LAB L300.4310 24.1-36.2 Seconds Normal PTT 27.1 Performed By: #### L300.3900, L300.4310 #### [facility] [address] [place], [address] ASP RADIOLOGY (TISSUE) Observed: 04/16/2018 Status: F Source: [place] 12:00 AM [facility] REPOSITORY Patient: CECILE VALLEJO : 1945 (72/) Acct Num: [id number] Phys: Apolinar Cazares DO Unit Num: [id number] Loc: CT Specimen: [id number] Received: 04/16/18 - 1316 Spec Type: ASP RAD TISSUES TISSUES: Lung, NOS COMMENT The specimen is evaluated at the time of CT by Dr. Trejo. Immediate Evaluation = Atypical cells consistent with plasma cells are noted. Immunohistochemistry ([id number]) supports the above diagnosis. The tumor is positive for CK7. The tissue was limited and exhausted in the block. Clinical correlation is suggested. A metastatic carcinoma cannot be excluded. Case has been reviewed in consultation with Dr. Trejo who concurs with the above diagnosis. IDC:SJ GROSS DESCRIPTION Received in fixative is one container labeled with the patient's name and designated lung biopsy CT guided. The specimen consists of multiple fragments of bliss soft tissue measuring in aggregate 1.5 x 0.1 x less than 0.1 cm. The specimen is totally submitted in one cassette. SJ:nidia 04/16/18 TC:0 CPT: 26764, 06770, 42839 HEADER OPERATION: CT guided lung biopsy PRE-OP DIAGNOSIS: Mass TISSUE SUBMITTED: 20 gauge cores x4 MICROSCOPIC DESCRIPTION Slides are reviewed. MICROSCOPIC DIAGNOSIS CT guided lung mass, core biopsy: Non small cell carcinoma, adenocarcinoma. AM:nidia 04/17/18 Signed [facility] 04/21/18 <signature on file> Performed By: #### PASPIGT #### [facility] [address] [place] [address]. [place], [address] IMMUNOHISTOCHEMISTRY Observed: 04/16/2018 Status: F Source: [place] 12:00 AM [facility] REPOSITORY Patient: CECILE VALLEJO : 1945 (72/F) Acct Num: [id number] Phys: Apolinar Cazares DO Unit Num: [id number] Loc: CT Specimen: [id number] Received: 04/17/18 - 1205 Spec Type: IMMUNO TISSUES TISSUES: Lung, NOS SPECIMEN INFORMATION: Tissue Source: CT guided lung biopsy Clinical Info: Mass Specimen Number: [id number] CPT code: 33860, 44540 x2 METHODOLOGY: Deparaffinized sections of prefer/formalin-fixed tissue or PAP/DQ stained slides are incubated with monoclonal/polyclonal antibodies/oligonucleotide probes. Localization is made via biotin free immunoperoxidase method. Appropriate controls are performed and reacted as expected. Results on target cell population are indicated in the following table: RESULTS: ANTIBODY / CLONE RESULT CK7 (OV-TL12/30) positive ER (6F11) *non-contributory TTF-1 (8G7G3/1) *non-contributory These tests were developed and their performance characteristics determined by [facility]. They may not have been cleared or approved by the U.S. Food and Drug Administration. The FDA has determined that such clearance or approval is not necessary. INTERPRETATION: CT guided lung biopsy: Non-small cell carcinoma consistent with adenocarcinoma *The tissue is exhausted in the block Case has been reviewed in consultation with Dr. Trejo who concurs with the above diagnosis. IDC:PADMAJA AM:cc 04/21/18 PHYSICIAN AND INSTITUTION [address] [address] Signed [facility] 04/21/18 <signature on file> Performed By: #### PIMM #### [facility] [address] [place] [address]. [place], [address] PROGRESS Observed: 04/11/2018 Status: COMPLETED Source: [place] 2:09 PM [facility] REPOSITORY HNO ID: [id number] Author: Celeste Baires Service: (none) Author Type: (none) Type: Progress Notes Filed: 04/11/2018 2:09 PM Note Text: Radiology Service Progress Note PATIENT NAME: Cecile Vallejo DATE OF SERVICE: April 11, 2018 TIME: 2:09 PM PATIENT IDENTITY VERIFICATION COMPLETED USING TWO (2) METHODS: Patient confirmed name verbally and Date of . PATIENT GENDER DATA: Female. status: : No status: NO. PATIENT RELEVANT IMPLANT DATA REVIEWED: Not Applicable RADIOLOGY DEPARTMENT: CT; Exam(s) Completed: Abdomen/Pelvis PERIPHERAL IV DATA: Not applicable SIGNED BY: Celeste Baries April 11, 2018 2:[address] FLANK WO IVCON Observed: 04/11/2018 Status: F Source: [place] 1:57 PM [facility] REPOSITORY * * *Final Report* * * DATE OF EXAM: Apr 11 2018 1:57PM [facility] 0529 - CT FLANK WO IVCON / PROCEDURE REASON: Other microscopic hematuria * * * * Physician Interpretation * * * * EXAMINATION: CT ABDOMEN AND PELVIS WITHOUT IV CONTRAST (Renal stone protocol) CLINICAL HISTORY: Unspecified flank pain. Hematuria. TECHNIQUE: Non-contrast imaging of the abdomen and pelvis was performed through the urinary tract. Study performed without intravenous or oral contrast to evaluate for urinary tract calculus. MQ: [id number] Contrast: IV contrast: None Oral contrast: None CT Radiation dose: Integrated dose-length product (DLP) for this visit = 372 mGy*cm. CT Dose Reduction Employed: Automated exposure control (AEC) COMPARISON: None. RESULT: Limitations: Unenhanced imaging is limited for the evaluation of some renal and other intra-abdominal and pelvic pathology. Urinary Tract: Right kidney and ureter: No calculus. No hydronephrosis. No finding to suggest cyst or mass in the unenhanced kidney. Left kidney and ureter: No calculus. No hydronephrosis. No finding to suggest cyst or mass in the unenhanced kidney. Bladder: Not completely distended but no calculus.. Abdomen and Pelvis: Liver: Unremarkable. Biliary: Cholelithiasis. Spleen: No splenomegaly. Pancreas: Unremarkable. Adrenals: Normal. GI Tract: Appendix is unremarkable. No bowel dilation. Lymph Nodes: No lymphadenopathy. Mesentery/peritoneum: No ascites. Vasculature: Tortuous atherosclerotic aorta without aneurysmal dilatation. Pelvis: Uterine calcifications probably calcified fibroids.. Bones/Soft Tissues: Levoscoliosis of lumbar spine with degenerative changes.. Lower thorax: Cardiomegaly. Pericardial effusion. Calcified mitral annulus.. IMPRESSION: No evidence for urolithiasis or obstructive uropathy. Cholelithiasis. No bowel obstruction. Unremarkable appendix. Limited evaluation due to lack of intravenous and oral contrast. Atherosclerotic aorta. Cardiomegaly, pericardial effusion and calcified mitral annulus. [employer] Consultant: VICTORIANO Transcribe Date/Time: Apr 13 2018 9:46A Dictated by : MICHAEL SALDANA MD This examination was interpreted and the report reviewed and electronically signed by: MICHAEL SALDANA MD on Apr 13 2018 9:51AM EST [id number] PULMONARY VISIT REPORT Observed: 04/10/2018 Status: F Source: [place] 8:22 AM [facility] REPOSITORY Pulmonary Medicine of [address] [place] [address] OFFICE VISIT Date of Service: 04/09/18 MR#: [id number] Acct: [id number] Name: CECILE VALLEJO Rep #: [id number] : 1945 Provider: Jayleen Burr Age/Sex: 72/F Location: [facility] Status: Signed Assessment AND Plan 1. Chronic obstructive pulmonary disease, unspecified COPD type J44.9 Status Chronic Plan She does not appear to be in exacerbation of her COPD today. No indication for antibiotics or prednisone. Continue triple therapy inhalers. No additional testing at this time. Follow-up with Dr. Campos in 1 month. 2. Lung mass R91.8 Status Acute Plan The patient canceled and rescheduled lung biopsy, therefore it is still pending. Follow-up with Dr. Campos in 1 month to discuss test results and to see a plan developed by oncology. 3. Thrush, oral B37.0 Status Acute Plan New. The patient was not aware that she has thrush however it was discovered on exam. She will be treated with nystatin 3 times daily for the next 10 days. Plan Detail Other Medications New: nystatin swish and swallow 5 cc three times per day for 10 da5 mL Mucous Membrane TID ys Follow Up 1 Month (JALEESA) HPI 1 M FU: Chief Complaint: Cough HPI Comments Details: This patient presents to the office today to follow- up on her COPD. She is in a wheelchair, currently on room air and accompanied today by her . She has not been to the ED or urgent care for any breathing problems since her last office visit. She has not required antibiotics or prednisone for breathing problems. Her last office visit she was ordered to have a lung biopsy which was set up for March 13, the patient canceled and rescheduled. She then followed up with her oncologist who also ordered the lung biopsy and it is now scheduled for April 16. Currently, she denies any shortness of breath during conversation, at rest or even on exertion. She does have a cough is productive of clear to white sputum. She denies any hemoptysis. She denies any wheezing, chest tightness, chest pain or palpitations. She has not experienced any fever, chills or body aches. She does report feeling fatigued. She is compliant with Advair twice daily. She does report rinsing her mouth out after each use. She does not believe she has thrush and denies any sore throat. She is not utilizing her rescue inhaler very often, does not feel it is necessary. She is compliant with Spiriva daily. She reports that she has only used the rescue inhaler 2 times since she was discharged from the hospital. She has not had any [id number] medications. See complete review of systems. Intake Vital Signs04/09/18 Height 5 ft 4 in 04/09/18 Weight: 174 lb Intake Visit Reasons: 1 M FU Chief Complaint: CHF/ A.Fib Client Support Administrator Required: No Accompanied by: Is patient in pain?: No Allergies albuterol sulfate [From Combivent] Allergy (Verified 04/09/18 12:50) Swelling ipratropium bromide [From Combivent] Allergy (Verified 04/09/18 12:50) Swelling metoprolol Allergy (Verified 04/09/18 12:50) Laryngospasms Sulfa (Sulfonamide Antibiotics) Allergy (Verified 04/09/18 12:50) Rash beclomethasone [From Qvar] Adverse Reaction (Verified 04/09/18 12:50) COUGHING benzalkonium chloride [From Merthiolate (benzalkonium)] Adverse Reaction (Verified 04/09/18 12:50) Other codeine Adverse Reaction (Verified 04/09/18 12:50) doesn't remember doxycycline Adverse Reaction (Verified 04/09/18 12:50) Abd cramps/diarrhea formoterol fumarate [From Dulera] Adverse Reaction (Verified 04/09/18 12:50) Other hydrochlorothiazide Adverse Reaction (Verified 04/09/18 12:50) Other ibuprofen [From Advil] Adverse Reaction (Verified 04/09/18 12:50) Other iodine Adverse Reaction (Verified 04/09/18 12:50) Itching merbromin Adverse Reaction (Verified 04/09/18 12:50) Other mometasone furoate [From Dulera] Adverse Reaction (Verified 04/09/18 12:50) Other oseltamivir [From Tamiflu] Adverse Reaction (Verified 04/09/18 12:50) uterine pain prednisone Adverse Reaction (Verified 04/09/18 12:50) Abd cramps/diarrhea PLASTIC TAPE Allergy (Uncoded 04/09/18 12:50) Rash Medications Fluticasone/Salmeterol [Advair 250/50 Mcg Diskus] 1 puff INHALATION BID 04/11/15 [History Confirmed 04/09/18] Quinapril HCl [Accupril] 20 mg PO BID 04/11/15 [History Confirmed 04/09/18] Acetaminophen [Tylenol] 325 mg PO Q4H PRN PRN 10/16/16 [History Confirmed 04/09/18] Albuterol Inhaler [Ventolin Hfa] 1 - 2 puff INHALATION Q4H PRN PRN 10/16/16 [History Confirmed 04/09/18] Multivitamins,Therapeutic [Multivitamin] 1 tab PO DAILY 10/16/16 [History Confirmed 04/09/18] Vitamin B Complex 1 ea PO DAILY 10/16/16 [History Confirmed 04/09/18] Vitamin E 400 unit PO DAILY 10/16/16 [History Confirmed 04/09/18] carvedilol 25 mg tablet 25 mg PO BID #180 tab 01/20/18 [Rx Confirmed 04/09/18] furosemide 40 mg tablet 40 mg PO DAILY #90 tab 01/20/18 [Rx Confirmed 04/09/18] rivaroxaban 20 mg tablet 20 mg PO DINNER #90 tab 01/20/18 [Rx Confirmed 04/09/18] tiotropium bromide 2.5 mcg/actuation mist for inhalation 2 puff INHALATION QDAY #1 device 03/04/18 [Rx Confirmed 04/09/18] nystatin 100,000 unit/mL oral suspension 5 ml MUCOUS MEMBRANE TID #250 ml 04/09/18 [Rx Confirmed 04/09/18] [facility] Medical History Thrush, oral (Acute) Lung mass (Acute) Suspected chronic obstructive pulmonary disease based on initial evaluation (Chronic) Acute CHF (Acute) New onset A. fib with RVR (Acute) History of breast cancer (Chronic) COPD (chronic obstructive pulmonary disease) (Chronic) Hypertension (Chronic) Surgical History History of left mastectomy (Resolved) History of lumpectomy of right breast (Resolved) History of tubal ligation (Resolved) polyp removal (Resolved) Family History Father Emphysema of lung Sister Cancer uterine cancer Social History Smoking Status: Current every day smoker second hand exposure: Yes alcohol intake: current alcohol intake frequency: a few times a month Alcohol type: wine substance use type: does not use caffeine: No what type of physical activity do you participate in: none seatbelt use: always do you feel safe at home: Yes Review of Systems Const CONSTITUTIONAL: Negative anorexia, body ache, chills, daytime sleepiness, fever(s), night sweats, oral thrush, stops breathing during sleep, weight loss, sleeping in chair, fatigue, weight loss, weight gain, frequent colds, seasonal allergies, other, headache(s) or orthopnea EETM Ear Nose Throat Mouth: Positive hearing normal; negative hard of hearing, hoarseness, dry mouth in morning, change in vision, itchy eyes, eye pain, swallowing Difficulty, ear pain, nose bleed, headache(s), mouth pain, nasal congestion, nasal discharge, post nasal drip, sinus pain, sinus pressure, sore throat or other Cardio Cardiovascular: Positive edema Location: lower extremity Right/Left: Right; negative chest pain, chest pain at rest, chest pain with activity, irregular heart rhythm, shortness of breath when lying down, palpitations, murmur or other Resp Respiratory: Positive as per HPI, cough cough: Positive productive color: Positive white and inhalers; negative shortness of breath, pain with cough, wheezing, chest congestion, chest tightness, pain on inspiration, increase use of rescue inhalers, snoring, apnea or other Gastro Gastrointestional: Negative bloody stools, change in appetite, difficulty swallowing, reflux, hematemesis, melena stool, loose stool, constipation or other Genitourinary: Negative blood in urine, nocturia, pain with urination or other Musc Musculoskeletal: Negative body pain, back pain, neck pain or other Skin/Breast Skin/Breast: Negative dry skin, itching, rash, unusual bruising, breast lump or other Neuro Neurological: Negative restless legs, confusion, weakness or other Psych Psychocological: Negative abnormal sleep pattern, anxiety, thoughts of hurting self/others, hopelessness or other Lymph Lymphatic: Negative easy bleeding, easy bruising, swollen lymph nodes or other Exam Const Constitutional: Positive conversant, cooperative, in no acute respiratory distress, well developed, well nourished, good hygiene, obese and frail appearing Head Head: Positive normocephalic and atraumatic; negative cyanosis of lips/distal nose Eyes Eye: Positive clear conjunctiva and nystagmus; negative scleral abnormality Ears Ear: Positive hearing normal and external ears normal; negative hard of hearing Nose Nose: Positive external nose normal and no nasal discharge; negative epistaxis Mouth Mouth: Positive oral thrush present, oral mucosae normal, no lesions and crowded posterior oropharynx; negative post nasal drip or malodorous breath Mallampati Score: III: Mallampati Score Neck Neck: Positive normal visual inspection, full ROM, trachea midline, thick neck and female neck greater than 37 cm (15 in); negative lymphadenopathy, JVD or tender Chest Wall Chest: Positive normal inspection of the chest and symmetric chest movement; negative increased A/P diameter Resp lung sounds: Positive wheeze present on forced exhalation, wheezes wheezing: Positive left, normal expiratory time and normal respiratory effort; negative rhonchi, rales or dullness to percussion Cardio Cardiac: Positive regular rate, regular rhythm, S1 normal and S2 normal; negative murmur GI GI: Positive normal to inspection, normal bowel sounds and obese; negative distended Genitourinary: Positive deferred Musc Musculoskeletal: Positive ROM normal and in a wheelchair; negative kyphosis or scoliosis Skin Pulmonary Skin Exam: Positive intact; negative rash, lesion, ulcers, erythema, scaly or dermal atrophy Pulses Pulse: Yes pulses normal x4 extremities Extremities Extremities: Yes capillary refill normal, No clubbing, No cyanosis, Yes edema Location: lower extremity location: Bilateral pitting +1, No stasis dermatitis Neuro Neurologic: Yes conversant, Yes no focal neuro deficits, Yes cooperative, Yes normal cognition, Yes normal coordination, Yes normal concentration, Yes understands questions, No tremor Lymph Lymphatic: No lymphadenopathy, No tenderness, No cervical adenopathy, No axillary adenopathy Psych Appearance: Positive grossly normal, eye contact and well kempt Mental Status: Positive mental status grossly normal Mood: Positive congruent mood Affect: Positive normal affect Coding Level of Care Code Off vis,est,level 4 Diagnoses Chronic obstructive pulmonary disease, unspecified COPD type J44.9 COPD type: unspecified COPD Lung mass R91.8 Thrush, oral B37.0 04/10/18 0822 <Electronically signed by Jayleen HALL> Date Jayleen HALL Cosigner Signature: Date (if applicable) CC: Juan Mcdaniel MD PROGRESS Observed: 04/08/2018 Status: COMPLETED Source: [place] 12:29 PM [facility] [place] REPOSITORY [facility] ID: [id number] Author: Isac Le) Raffy Service: (none) Author Type: Physician Securities Attorney Type: Progress Notes Filed: 04/08/2018 4:36 PM Note Text: Looks good. Follow up in 6 months. Thanks, Ronen Akbar PA-C PROGRESS Observed: 04/08/2018 Status: COMPLETED Source: [place] 9:13 AM [facility] REPOSITORY [facility] ID: [id number] Author: Isac Akbar Service: (none) Author Type: Physician Securities Attorney Type: Progress Notes Filed: 04/08/2018 4:36 PM Note Text: Manual Readin/82 Pulse: 104irregular Reason for blood pressure check - Last BP elevated Patient is: Taking medication as prescribed Yes Took medication today Yes Recommendations Continue taking medications as prescribed Follow-up Yes will come in next week open access to see Dr Mcdaniel. Pt has been identified by name and birthdate: Yes Allergies reviewed: Yes Latex allergy: no. Medication - prescribed and OTC reviewed and updated: Yes Do you need any prescription refills prior to your next visit: No Health Maintenance: Reviewed and up to date CNOV Observed: 04/08/2018 Status: COMPLETED Source: [place] 9:00 AM [facility] REPOSITORY [facility] CECILE VALLEJO ([id number]) 1945 F Date Time Provider Department 04/08/18 9:00 AM [facility] your visit today, we recorded the following information about you: Pulse Blood pressure 104/minute 122/82 Isac Akbar PA-C 04/08/2018 4:36 PM Signed Manual Readin/82 Pulse: 104irregular Reason for blood pressure check - Last BP elevated Patient is: Taking medication as prescribed Yes Took medication today Yes Recommendations Continue taking medications as prescribed Follow-up Yes will come in next week open access to see Dr Mcdaniel. Pt has been identified by name and birthdate: Yes Allergies reviewed: Yes Latex allergy: no. Medication - prescribed and OTC reviewed and updated: Yes Do you need any prescription refills prior to your next visit: No Health Maintenance: Reviewed and up to date Isac Akbar PA-C 04/08/2018 4:36 PM Signed Looks good. Follow up in 6 months. Thanks, Ronen Akbar PA-C Referring Provider: SELF [200] Allergies As of Date: 04/08/2018 Noted Allergy Reaction SULFA (SULFONAMIDE ANTIBIOTICS) 08/08/2005 2 - Rash Comments: SOME SULFA DRUGS Specifically reacted to topical sulfa cream, pt stated. CODEINE 03/05/2008 Comments: Severe headaches COMBIVENT (IPRATROPIUM-ALBUTEROL) 08/25/2012 7 - Swelling DOXYCYCLINE 08/08/2005 5 - Intolerance Comments: Stomach pains..it makes me double over, pt stated. DULERA (MOMETASONE-FORMOTEROL) 09/03/2012 5 - Intolerance Comments: tachycardia GABAPENTIN 06/16/2014 14 - Other: See Comments Comments: Loss of balance HCTZ (AMILORIDE-HYDROCHLOROTHIAZI*01/19/2009 Comments: blurry vision, fatigue IODINE 08/08/2005 MERCUROCHROME (MERBROMIN) 08/08/2005 5 - Intolerance Comments: Wound becomes infected, inflamed AND hyper- reactionary, pt stated. MERTHIOLATE [Other] 08/08/2005 METOPROLOL 07/17/2013 3 - Cough PREDNISONE 01/19/2009 Comments: messed up stomach patient states is able to take in small divided doses QVAR (BECLOMETHASONE) 03/08/2016 14 - Other: See Comments Comments: Reports coughing, headache, dizziness, nausea, wheezing. TAMIFLU (OSELTAMIVIR) 12/30/2017 5 - Intolerance Comments: Reported abdominal pain, changes in breathing, and severe dry mouth tape [Other] 03/28/2006 2 - Rash ADVIL (IBUPROFEN) 08/08/2005 5 - Intolerance Comments: severe headache Date Reviewed: 04/07/2018 Reviewed by: Celeste Lockhart Ct - Fully Assessed Reason for Visit: Blood Pressure [15] Primary Visit Diagnosis:Essential hypertension, benign [I10] Prescriptions as of 04/08/2018 Sig: TIOTROPIUM BROMIDE 2.5 MCG/AC* Inhale 2 Puffs as instructed * RANITIDINE 75 MG TABLET Take 1 tablet by mouth twice * CIPROFLOXACIN 250 MG TABLET Take 1 tablet by mouth twice * CARVEDILOL 25 MG TABLET Take 25 mg by mouth twice ylnda* FUROSEMIDE 40 MG TABLET Take 40 mg by mouth once yoli* RIVAROXABAN 20 MG TABLET Take 1 tablet by mouth daily * QUINAPRIL 20 MG TABLET Take 1 tablet by mouth twice * TRIAMCINOLONE ACETONIDE 0.025* Apply 1 application to affect* FLUTICASONE 250 MCG-SALMETERO* Inhale 1 Puff as instructed t* ALBUTEROL SULFATE HFA 90 MCG/* Inhale 2 Puffs as instructed * EMOLLIENT COMBINATION NO.10 T* APPLY 1 APPLICATION TO AFFECT* VITAMIN B COMPLEX ER TABLET,E* Take 1 tablet by mouth once d* VITAMIN E 400 UNIT TABLET Take 1 tablet by mouth once d* MULTIVITAMIN ORAL Take 1 tablet by mouth once d* ACETAMINOPHEN 500 MG TABLET Take one(1) tablet every four* Problem List As Of Date 04/08/2018 Noted Resolved Breast neoplasm [D49.3] Priority: B More... Essential Hypertension, Benign [I10] INVALID FOR* Priority: A Osteoarth NOS-Unspec [M19.90] INVALID FOR* Malig Yayo Lymph-Axilla/Arm [C77.3] INVALID FOR*07/10/2010 Sebaceous Cyst [L72.3] INVALID FOR*07/10/2010 Unspecified Pleural Effusion [J90] INVALID FOR*07/10/2010 SCREEN (SEE ALSO ADMISSION) CANCER - COLON [Z*INVALID FOR*07/10/2010 Emphysema of lung (HCC) [J43.9] INVALID FOR* Priority: A Tobacco Use Disorder [F17.200] INVALID FOR* POLYP COLON [D12.6] INVALID FOR* Priority: B More... DIVERTICULOSIS [K57.30] INVALID FOR*02/01/2017 Priority: B Routine general medical examination at a health*INVALID FOR*08/01/2012 Class: Chronic More... Routine gynecological examination [Z01.419] INVALID FOR*08/01/2012 Class: Chronic More... RIB LESION, UNCERTAIN BEHAVIOR [M99.9] INVALID FOR*08/14/2016 Priority: A More... Mixed Hyperlipidemia [E78.2] INVALID FOR* Priority: A Back pain [M54.9] INVALID FOR* Priority: B Personal history of breast cancer [Z85.3] INVALID FOR* COPD (chronic obstructive pulmonary disease) (H* 08/14/2016 Lumbar radiculopathy [M54.16] INVALID FOR* DDD (degenerative disc disease), lumbar [M51.36]INVALID FOR* Lumbar scoliosis [M41.9] INVALID FOR* Persistent atrial fibrillation (HCC) [I48.1] INVALID FOR* More... Mass of upper lobe of lung [R91.8] INVALID FOR* More... Acute systolic CHF (congestive heart failure) (*INVALID FOR* More... Follow-up and Disposition History Recorded Encounter Status:Closed by JANET RUBI LPN on 04/08/18 CBC AND DIFFERENTIAL Collected: 04/04/2018 Status: F Source: [place] 11:03 AM [facility] REPOSITORY TYPE CODE TESTS RESULT OUT OF REFERENCE UNITS RANGE LAB WBC 3.70-11.00 k/uL WBC 6.98 LAB RBC 3.90-5.20 m/uL RBC 4.70 LAB HGB 11.5-15.5 g/dL Hemoglobin 14.2 LAB HCT 36.0-46.0 % Hematocrit 45.3 LAB MCV 80.0-100.0 fL MCV 96.4 LAB MCH 26.0-34.0 pG MCH 30.2 LAB MCHC 30.5-36.0 g/dL MCHC 31.3 LAB RDWCV 11.5-15.0 % RDW-CV 13.0 LAB PLTCT 150-400 k/uL Platelet Count 286 LAB MPV 9.0-12.7 fL MPV 10.1 LAB ANEUT % Neut% 65.6 LAB AANEUT 1.45-7.50 k/uL Abs Neut 4.58 LAB ALYMP % Lymph% 22.8 LAB AALYMP 1.00-4.00 k/uL Abs Lymph 1.59 LAB AMONO % [place]% 9.5 LAB AAMONO <0.87 k/uL Abs [place] 0.66 LAB AEOS % Eosin% 1.4 LAB AAEOS <0.46 k/uL Abs Eosin 0.10 LAB ABASO % Baso% 0.7 LAB AABASO <0.11 k/uL Abs Baso 0.05 LAB AUNRBC 0 /100 WBC NRBCs 0.0 LAB ABNRBC <0.01 k/uL Absolute nRBC <0.01 LAB DTYP DTYPE Auto Diff Performed By: #### CBCDIF, NTBNP, TSH #### [facility] [address] [place] [id number] NT PRO BNP Collected: 04/04/2018 Status: F Source: [place] 11:03 AM [facility] REPOSITORY TYPE CODE TESTS RESULT OUT OF REFERENCE UNITS RANGE LAB PBNP <125 pg/mL High PRO B Natr 2525 Peptide Performed By: #### CBCDIF, NTBNP, TSH #### [facility] [address] [place] [address] TSH Collected: 04/04/2018 Status: F Source: [place] 11:03 AM [facility] REPOSITORY TYPE CODE TESTS RESULT OUT OF RANGE REFERENCE UNITS LAB TSH 0.400-5.500 uU/mL TSH 2.480 Performed By: #### CBCDIF, NTBNP, TSH #### [facility] [address] [place] [address] Observed: 04/04/2018 Status: F Source: [place] URINE CULTURE 10:59 AM [facility] REPOSITORY Sp. Request/Comment: - Specimen received in preservative Culture Result - 10,000 - <50,000 CFU/ml Normal urogenital luci Performed By: #### URCUL #### [facility] [address] [place] [address] PROGRESS Observed: 04/04/2018 Status: COMPLETED Source: [place] 9:52 AM [facility] REPOSITORY [facility] ID: [id number] Author: Juan Mcdaniel Service: (none) Author Type: Physician Type: Progress Notes Filed: 04/04/2018 11:02 AM Note Text: No chief complaint on file. HPI: Patient presents today for office visit for follow up. Nursing Notes: Brynn Landaverde Ma 04/04/2018 9:23 AM Signed LUNG MASS:Pt saw Dr Cazares on 01/28/18 and was advised to have a PET scan done based on her history of smoking and breast cancer. Based on PET scan results she was advised to get a biopsy. Pt feels that she has had this nodule for a long time and there is not a need. She is also concerned about her lung collapsing during the procedure. She is seeing Lopez Garza also. A FIB: Pt feels the new medications are causing multiple side effects. She is taking Coreg, Lasix, and Xarelto. She complains of swelling in her legs and feet, decreased energy, back pain, constipation, decreased appetite, dry mouth. Saw Manolo Rothman CNP at [facility] in February. FALL: Pt fell on 03/23/18 and land on her backside on top of her push mower. She later on urinated a pink color that day. She has done this on 03/27, 04/01, and 04/02. She also complains of abdominal cramping since. MOLE: Pt has a large irregular mole on her right axilla area that she keeps scratching at. Reviewed old records. Patients mass in the lung is NOT her previous calcified area. That was not suspicious for malignancy. Discussed at length the risks of not doing biopsy or staying on her meds, including massive stroke or . After discussion she is agreeable to stay on meds and have procedure done. She has cut back on her smoking. She sees pulmonary soon. She has been using spiriva and is breathing better. No pain in the chest. No hemoptysis. Cough is decreased. Discussed tobacco cessation, including risks of continued use. Offered assistance to help quit if patient desires. She did not take her coreg this am which could be why her heart rate was initially Up. Was in the 90's later. No chest pain. Does get occasional palpitations. No syncope. Gets occasional swelling. Does go down when elevated. Edema is better than in the hospital. Has a mole she has had on her right axilla. Irritated at times. She is unsure how long it has been there. No bruising issues. She noted some hematuria. Was taking a wheelbarrow out of the barn. 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 Denies trauma to the back or pelvis. Has noted some hematuria four times. Urine was mildly pink. No clots. Last time was a few days ago. Some bilateral flank pain and mid back pain. Goes across. No dysuria. No fever or chills. Some frequency. No abd pain. No nausea or vomiting. Has some constipation. Has been there on and off. Has issues eating things and has decreased appetite. No bloody or black stools. Says just has occasional upset stomach. Has zantac at home. Advised to start it. Has lost 9 lbs. Admits to mild depression. No suicidal ideation. She is upset because she can't do as much as she used to. Did previously ordered labs already this am. Urine shows one small leuks and mod blood MEDICATIONS: Current Outpatient Prescriptions: tiotropium bromide (SPIRIVA RESPIMAT) 2.5 mcg/actuation mist Inhale 2 Puffs as instructed once daily. carvedilol (COREG) 25 mg tablet Take 25 mg by mouth twice daily. furosemide (LASIX) 40 mg tablet Take 40 mg by mouth once daily. rivaroxaban (XARELTO) 20 mg tablet Take 1 tablet by mouth daily with dinner. quinapril (ACCUPRIL) 20 mg tablet Take 1 tablet by mouth twice daily. fluticasone-salmeterol (ADVAIR DISKUS) 250-50 mcg/dose dsdv Inhale 1 Puff as instructed twice daily. Rinse and gargle mouth after use with water. albuterol HFA (VENTOLIN HFA) 90 mcg/actuation inhaler Inhale 2 Puffs as instructed every 4 hours as needed for Wheezing/Shortness of Breath. emollient combination (PRUTECT) emul APPLY 1 APPLICATION TO AFFECTED AREA NEEDED B Complex Vitamins (B-50 COMPLEX) TbER Take 1 tablet by mouth once daily. Vitamin E 400 unit tab Take 1 tablet by mouth once daily. MULTIVITAMIN ORAL Take 1 tablet by mouth once daily. ACETAMINOPHEN 500 MG TAB Take one(1) tablet every four(4) hours prn. triamcinolone (KENALOG) 0.025 % cream Apply 1 application to affected area twice daily. No current facility-administered medications for this visit. ALLERGIES: ALLERGIES Allergen Reactions - Sulfa (Sulfonamide * Rash SOME SULFA DRUGS Specifically reacted to topical sulfa cream, pt stated. - Codeine Severe headaches - Combivent [Ipratrop* Swelling - Doxycycline Intolerance Stomach pains..it makes me double over, pt stated. - Dulera [Mometasone-* Intolerance tachycardia - Gabapentin Other: See Comments Loss of balance - Hctz [Amiloride-Hyd* blurry vision, fatigue - Iodine - Mercurochrome [Merb* Intolerance Wound becomes infected, inflamed AND hyper-reactionary, pt stated. - Merthiolate [Other] - Metoprolol Cough - Prednisone messed up stomach patient states is able to take in small divided doses - Qvar [Beclomethason* Other: See Comments Reports coughing, headache, dizziness, nausea, wheezing. - Tamiflu [Oseltamivi* Intolerance Reported abdominal pain, changes in breathing, and severe dry mouth - Tape [Other] Rash - Advil [Ibuprofen] Intolerance severe headache PAST MEDICAL HISTORY Diagnosis Date - Benign neoplasm of colon - COPD (chronic obstructive pulmonary disease) (HCC) - History of breast cancer - Neoplasm of unspecified nature of breast left 13yrs ago/right 5yrs LEFT AND RIGHT - Unspecified essential hypertension PAST SURGICAL HISTORY Procedure Laterality Date - BREAST BIOPSY W/ULTRASOUND GUIDANCE 06/10/14 U/S needle core upper inner right breast - COLONOS W/REM POLYP SNARE 03/04/09 Sigmoid polyp and diverticulosis - LIGATE FALLOPIAN TUBE 1987 Tubal ligation - MASTECTOMY 1993 Left - PAST SURGICAL HISTORY OF 2003 right lumpectomy - REM LESION NEC,HND,SCAL 1.1-2.0CM 03/13/06 Infected jacqueline cyst posterior neck - REMOVE PERM CANNULA/CATHETER 07/31/06 Remove right IJ port FAMILY HISTORY Problem Relation Age of Onset - Coronary Artery Disease Mother - Cancer Sister uterine or ovarian (pt not sure) - Cancer Brother , brain cancer Social History Marital status: Spouse name: maria dolores Years of education: 11 Number of children: 3 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 Alcohol use: Yes Comment: rarely Drug use: No Sexual activity: Yes Partners with: Male control/protection: Surgical Comment: tubal ligation Reviewed current medications, allergies, past medical history, surgical history, family history and social history today. REVIEW OF SYSTEMS All other reviewed and negative other than HPI. HEALTH MAINTENANCE: Reviewed health maintenance issues today and recommended the following in detail. VITALS: BP 152/80 Pulse 99 Wt 78.9 kg (174 lb) SpO2 96% BMI 32.34 kg/m? Last 4 Encounter Wt Readings: Date: Wt: 04/04/2018 78.9 kg (174 lb) 01/28/2018 83.2 kg (183 lb 8 oz) 01/09/2018 80.7 kg (178 lb) 12/30/2017 84.4 kg (186 lb) PHYSICAL EXAMINATION: General appearance: Well appearing, alert, in no acute distress, well-hydrated, well nourished. Skin: benign appearing lesion on right axilla. Appears to be sk vs ? Wart. Advised could freeze etc at some point but not urgent. Red flags for re-assessment reviewed with patient in detail. Head: Normocephalic, no masses, lesions, tenderness or abnormalities Neck: Supple, no adenopathy; thyroid symmetric, normal size, no bruits Back: no cva tendernss. Lungs: Lungs clear to auscultation. No wheezing, rhonchi, rales Heart: irregular. Normal s1 and s2 Abdomen: Normal abdominal exam, Abdomen soft, non-tender. Bowel sounds normal. No masses, organomegaly Extremities: right leg shows one plus edema. Left is normal. No palpable masses or cords. No redness or warmth. ASSESSMENT/PLAN: 1. Hematuria, unspecified type - ICD9: 599.70, ICD10: R31.9 (primary diagnosis) - rule out uti. Her mechanism of injury would be unlikely for trauma to the urinary tract. Also rule out stone etc. Do ct and labs. Cover with cipro. Push fluids. - Red flags for re-assessment reviewed with patient in detail. - UA DIP B/O - URINE CULTURE - CIPROFLOXACIN 250 MG TABLET - CT UROGRAM WO/W IVCON - IV CONTRAST (RADIOLOGY PROCEDURE) 2. Atrial fibrillation, unspecified type (HCC) - ICD9: 427.31, ICD10: I48.91 - reinforced need to follow cardiology recommendations and reinforced importance of med compliance Recheck pulse and bp when she has taken med - ECG COMPLETE W INTERPRETATION - TSH BLD 3. Mixed hyperlipidemia - ICD9: 272.2, ICD10: E78.2 - wait on pending labs. 4. Essential hypertension, benign - ICD9: 401.1, ICD10: I10 - suboptimal control - bp and pulse check in next week - Goal of BP <130/80 5. Breast neoplasm - ICD9: 239.3, ICD10: D49.3 - stable. 6. Mass of upper lobe of lung - ICD9: 786.6, ICD10: R91.8 - she has agreed to biopsy. Will let Dr. Cazares know 7. Acute systolic CHF (congestive heart failure) (HCC) - ICD9: 428.21, 428.0, ICD10: I50.21 - check labs. - NT PRO BNP 8. Tobacco use disorder - ICD9: 305.1, ICD10: F17.200 - Cessation encouraged. - Physiologic and physical aspects of tobacco addiction as well as strategies for quitting were discussed. - Counseling was given focusing on the harmful effects of this addiction especially given the patient's medical condition(s) which will be worsened because of the chemicals in tobacco. 9. Edema leg - ICD9: 782.3, ICD10: R60.0 - check venous duplex. I am not totally sure how compliant she has been with meds. Elevate prn. Take meds. Call if worsens. 10. Weight loss - ICD9: 783.21, ICD10: R63.4 - may in part be related to mood. Denies major depression but will follow - add zantac - could consider remeron. - follow closely - CBC + DIFF - TSH BLD - RANITIDINE 75 MG TABLET - CT UROGRAM WO/W IVCON - IV CONTRAST (RADIOLOGY PROCEDURE) 11. Malaise - ICD9: 780.79, ICD10: R53.81 - as above. - CBC + DIFF - RANITIDINE 75 MG TABLET 12. Gross hematuria - ICD9: 599.71, ICD10: R31.0 - CT UROGRAM WO/W IVCON Juan Mcdaniel MD RTO in two weeks and prn. bp and pulse check next week. ECG COMPLETE W Observed: 04/04/2018 Status: F Source: [place] INTERPRETATION 9:47 AM [facility] REPOSITORY NAME : CECILE VALLEJO PID : [id number] : 1945 Gender : Female Race : ORD : [id number] Procedure Date : Apr 04 2018 09:47:30 Edit Date : Apr 08 2018 07:45:04 Diagnosis:ATRIAL FIBRILLATION WITH PREMATURE VENTRICULAR COMPLEXES LOW VOLTAGE QRS, CONSIDER PULMONARY DISEASE, PERICARDIAL EFFUSION, OR NORMAL VARIANT ANTERIOR MYOCARDIAL INFARCTION , AGE UNDETERMINED ABNORMAL ECG Confirmed by SARIKA SNYDER D.O. ([id number]) on 04/08/2018 7:44:56 AM Ventricular Rate : 99 BPM Atrial Rate : 96 BPM QRS Duration : 84 ms Q-T Interval : 362 ms QTC Calculation(Bezet) : 464 ms R Marlow : -3 degrees T Marlow : 60 degrees Test Reason : Location : 185 : [facility] Overread By : SARIKA SNYDER D.O. Edited By : SARIKA SNYDER D.O. Referred By : JUAN MCDANIEL Acquired by : BRYNN LANDAVERDE CNOV Observed: 04/04/2018 Status: COMPLETED Source: [place] 8:40 AM [facility] REPOSITORY Office Visit (FAMPWS) CECILE VALLEJO ([id number]) 1945 F Date Time Provider Department 04/04/18 8:40 AM [facility] During your visit today, we recorded the following information about you: Pulse Blood pressure Weight 99/minute 152/80 78.9 kg Brynn Landaverde Ma 04/04/2018 9:23 AM Signed LUNG MASS:Pt saw Dr Cazares on 01/28/18 and was advised to have a PET scan done based on her history of smoking and breast cancer. Based on PET scan results she was advised to get a biopsy. Pt feels that she has had this nodule for a long time and there is not a need. She is also concerned about her lung collapsing during the procedure. She is seeing Lopez Garza also. A FIB: Pt feels the new medications are causing multiple side effects. She is taking Coreg, Lasix, and Xarelto. She complains of swelling in her legs and feet, decreased energy, back pain, constipation, decreased appetite, dry mouth. Saw Manolo Rothman CNP at [facility] in February. FALL: Pt fell on 03/23/18 and land on her backside on top of her push mower. She later on urinated a pink color that day. She has done this on 03/27, 04/01, and 04/02. She also complains of abdominal cramping since. MOLE: Pt has a large irregular mole on her right axilla area that she keeps scratching at. Juan Mcdaniel MD 04/04/2018 11:02 AM Signed No chief complaint on file. HPI: Patient presents today for office visit for follow up. Nursing Notes: Brynn Wallmani Aguilar 04/04/2018 9:23 AM Signed LUNG MASS:Pt saw Dr Cazares on 01/28/18 and was advised to have a PET scan done based on her history of smoking and breast cancer. Based on PET scan results she was advised to get a biopsy. Pt feels that she has had this nodule for a long time and there is not a need. She is also concerned about her lung collapsing during the procedure. She is seeing Lopez Garza also. A FIB: Pt feels the new medications are causing multiple side effects. She is taking Coreg, Lasix, and Xarelto. She complains of swelling in her legs and feet, decreased energy, back pain, constipation, decreased appetite, dry mouth. Saw Manolo Rothman CNP at [facility] in February. FALL: Pt fell on 03/23/18 and land on her backside on top of her push mower. She later on urinated a pink color that day. She has done this on 03/27, 04/01, and 04/02. She also complains of abdominal cramping since. MOLE: Pt has a large irregular mole on her right axilla area that she keeps scratching at. Reviewed old records. Patients mass in the lung is NOT her previous calcified area. That was not suspicious for malignancy. Discussed at length the risks of not doing biopsy or staying on her meds, including massive stroke or . After discussion she is agreeable to stay on meds and have procedure done. She has cut back on her smoking. She sees pulmonary soon. She has been using spiriva and is breathing better. No pain in the chest. No hemoptysis. Cough is decreased. Discussed tobacco cessation, including risks of continued use. Offered assistance to help quit if patient desires. She did not take her coreg this am which could be why her heart rate was initially Up. Was in the 90's later. No chest pain. Does get occasional palpitations. No syncope. Gets occasional swelling. Does go down when elevated. Edema is better than in the hospital. Has a mole she has had on her right axilla. Irritated at times. She is unsure how long it has been there. No bruising issues. She noted some hematuria. Was taking a wheelbarrow out of the barn. 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 Denies trauma to the back or pelvis. Has noted some hematuria four times. Urine was mildly pink. No clots. Last time was a few days ago. Some bilateral flank pain and mid back pain. Goes across. No dysuria. No fever or chills. Some frequency. No abd pain. No nausea or vomiting. Has some constipation. Has been there on and off. Has issues eating things and has decreased appetite. No bloody or black stools. Says just has occasional upset stomach. Has zantac at home. Advised to start it. Has lost 9 lbs. Admits to mild depression. No suicidal ideation. She is upset because she can't do as much as she used to. Did previously ordered labs already this am. Urine shows one small leuks and mod blood MEDICATIONS: Current Outpatient Prescriptions: tiotropium bromide (SPIRIVA RESPIMAT) 2.5 mcg/actuation mist Inhale 2 Puffs as instructed once daily. carvedilol (COREG) 25 mg tablet Take 25 mg by mouth twice daily. furosemide (LASIX) 40 mg tablet Take 40 mg by mouth once daily. rivaroxaban (XARELTO) 20 mg tablet Take 1 tablet by mouth daily with dinner. quinapril (ACCUPRIL) 20 mg tablet Take 1 tablet by mouth twice daily. fluticasone-salmeterol (ADVAIR DISKUS) 250-50 mcg/dose dsdv Inhale 1 Puff as instructed twice daily. Rinse and gargle mouth after use with water. albuterol HFA (VENTOLIN HFA) 90 mcg/actuation inhaler Inhale 2 Puffs as instructed every 4 hours as needed for Wheezing/Shortness of Breath. emollient combination (PRUTECT) emul APPLY 1 APPLICATION TO AFFECTED AREA NEEDED B Complex Vitamins (B-50 COMPLEX) TbER Take 1 tablet by mouth once daily. Vitamin E 400 unit tab Take 1 tablet by mouth once daily. MULTIVITAMIN ORAL Take 1 tablet by mouth once daily. ACETAMINOPHEN 500 MG TAB Take one(1) tablet every four(4) hours prn. triamcinolone (KENALOG) 0.025 % cream Apply 1 application to affected area twice daily. No current facility-administered medications for this visit. ALLERGIES: ALLERGIES Allergen Reactions - Sulfa (Sulfonamide * Rash SOME SULFA DRUGS Specifically reacted to topical sulfa cream, pt stated. - Codeine Severe headaches - Combivent [Ipratrop* Swelling - Doxycycline Intolerance Stomach pains..it makes me double over, pt stated. - Dulera [Mometasone-* Intolerance tachycardia - Gabapentin Other: See Comments Loss of balance - Hctz [Amiloride-Hyd* blurry vision, fatigue - Iodine - Mercurochrome [Merb* Intolerance Wound becomes infected, inflamed AND hyper-reactionary, pt stated. - Merthiolate [Other] - Metoprolol Cough - Prednisone messed up stomach patient states is able to take in small divided doses - Qvar [Beclomethason* Other: See Comments Reports coughing, headache, dizziness, nausea, wheezing. - Tamiflu [Oseltamivi* Intolerance Reported abdominal pain, changes in breathing, and severe dry mouth - Tape [Other] Rash - Advil [Ibuprofen] Intolerance severe headache PAST MEDICAL HISTORY Diagnosis Date - Benign neoplasm of colon - COPD (chronic obstructive pulmonary disease) (HCC) - History of breast cancer - Neoplasm of unspecified nature of breast left 13yrs ago/right 5yrs LEFT AND RIGHT - Unspecified essential hypertension PAST SURGICAL HISTORY Procedure Laterality Date - BREAST BIOPSY W/ULTRASOUND GUIDANCE 06/10/14 U/S needle core upper inner right breast - COLONOS W/REM POLYP SNARE 03/04/09 Sigmoid polyp and diverticulosis - LIGATE FALLOPIAN TUBE 1987 Tubal ligation - MASTECTOMY 1993 Left - PAST SURGICAL HISTORY OF 2003 right lumpectomy - REM LESION NEC,HND,SCAL 1.1-2.0CM 03/13/06 Infected jacqueline cyst posterior neck - REMOVE PERM CANNULA/CATHETER 07/31/06 Remove right IJ port FAMILY HISTORY Problem Relation Age of Onset - Coronary Artery Disease Mother - Cancer Sister uterine or ovarian (pt not sure) - Cancer Brother , brain cancer Social History Marital status: Spouse name: maria dolores Years of education: 11 Number of children: 3 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 Alcohol use: Yes Comment: rarely Drug use: No Sexual activity: Yes Partners with: Male control/protection: Surgical Comment: tubal ligation Reviewed current medications, allergies, past medical history, surgical history, family history and social history today. REVIEW OF SYSTEMS All other reviewed and negative other than HPI. HEALTH MAINTENANCE: Reviewed health maintenance issues today and recommended the following in detail. VITALS: BP 152/80 Pulse 99 Wt 78.9 kg (174 lb) SpO2 96% BMI 32.34 kg/m? Last 4 Encounter Wt Readings: Date: Wt: 04/04/2018 78.9 kg (174 lb) 01/28/2018 83.2 kg (183 lb 8 oz) 01/09/2018 80.7 kg (178 lb) 12/30/2017 84.4 kg (186 lb) PHYSICAL EXAMINATION: General appearance: Well appearing, alert, in no acute distress, well-hydrated, well nourished. Skin: benign appearing lesion on right axilla. Appears to be sk vs ? Wart. Advised could freeze etc at some point but not urgent. Red flags for re-assessment reviewed with patient in detail. Head: Normocephalic, no masses, lesions, tenderness or abnormalities Neck: Supple, no adenopathy; thyroid symmetric, normal size, no bruits Back: no cva tendernss. Lungs: Lungs clear to auscultation. No wheezing, rhonchi, rales Heart: irregular. Normal s1 and s2 Abdomen: Normal abdominal exam, Abdomen soft, non-tender. Bowel sounds normal. No masses, organomegaly Extremities: right leg shows one plus edema. Left is normal. No palpable masses or cords. No redness or warmth. ASSESSMENT/PLAN: 1. Hematuria, unspecified type - ICD9: 599.70, ICD10: R31.9 (primary diagnosis) - rule out uti. Her mechanism of injury would be unlikely for trauma to the urinary tract. Also rule out stone etc. Do ct and labs. Cover with cipro. Push fluids. - Red flags for re-assessment reviewed with patient in detail. - UA DIP B/O - URINE CULTURE - CIPROFLOXACIN 250 MG TABLET - CT UROGRAM WO/W IVCON - IV CONTRAST (RADIOLOGY PROCEDURE) 2. Atrial fibrillation, unspecified type (HCC) - ICD9: 427.31, ICD10: I48.91 - reinforced need to follow cardiology recommendations and reinforced importance of med compliance Recheck pulse and bp when she has taken med - ECG COMPLETE W INTERPRETATION - TSH BLD 3. Mixed hyperlipidemia - ICD9: 272.2, ICD10: E78.2 - wait on pending labs. 4. Essential hypertension, benign - ICD9: 401.1, ICD10: I10 - suboptimal control - bp and pulse check in next week - Goal of BP <130/80 5. Breast neoplasm - ICD9: 239.3, ICD10: D49.3 - stable. 6. Mass of upper lobe of lung - ICD9: 786.6, ICD10: R91.8 - she has agreed to biopsy. Will let Dr. Cazares know 7. Acute systolic CHF (congestive heart failure) (HCC) - ICD9: 428.21, 428.0, ICD10: I50.21 - check labs. - NT PRO BNP 8. Tobacco use disorder - ICD9: 305.1, ICD10: F17.200 - Cessation encouraged. - Physiologic and physical aspects of tobacco addiction as well as strategies for quitting were discussed. - Counseling was given focusing on the harmful effects of this addiction especially given the patient's medical condition(s) which will be worsened because of the chemicals in tobacco. 9. Edema leg - ICD9: 782.3, ICD10: R60.0 - check venous duplex. I am not totally sure how compliant she has been with meds. Elevate prn. Take meds. Call if worsens. 10. Weight loss - ICD9: 783.21, ICD10: R63.4 - may in part be related to mood. Denies major depression but will follow - add zantac - could consider remeron. - follow closely - CBC + DIFF - TSH BLD - RANITIDINE 75 MG TABLET - CT UROGRAM WO/W IVCON - IV CONTRAST (RADIOLOGY PROCEDURE) 11. Malaise - ICD9: 780.79, ICD10: R53.81 - as above. - CBC + DIFF - RANITIDINE 75 MG TABLET 12. Gross hematuria - ICD9: 599.71, ICD10: R31.0 - CT UROGRAM WO/W IVCON Juan Mcdaniel MD RTO in two weeks and prn. bp and pulse check next week. Referring Provider: SELF [[id number]] Allergies As of Date: 04/04/2018 Noted Allergy Reaction SULFA (SULFONAMIDE ANTIBIOTICS) 08/08/2005 2 - Rash Comments: SOME SULFA DRUGS Specifically reacted to topical sulfa cream, pt stated. CODEINE 03/05/2008 Comments: Severe headaches COMBIVENT (IPRATROPIUM-ALBUTEROL) 08/25/2012 7 - Swelling DOXYCYCLINE 08/08/2005 5 - Intolerance Comments: Stomach pains..it makes me double over, pt stated. DULERA (MOMETASONE-FORMOTEROL) 09/03/2012 5 - Intolerance Comments: tachycardia GABAPENTIN 06/16/2014 14 - Other: See Comments Comments: Loss of balance HCTZ (AMILORIDE-HYDROCHLOROTHIAZI*01/19/2009 Comments: blurry vision, fatigue IODINE 08/08/2005 MERCUROCHROME (MERBROMIN) 08/08/2005 5 - Intolerance Comments: Wound becomes infected, inflamed AND hyper- reactionary, pt stated. MERTHIOLATE [Other] 08/08/2005 METOPROLOL 07/17/2013 3 - Cough PREDNISONE 01/19/2009 Comments: messed up stomach patient states is able to take in small divided doses QVAR (BECLOMETHASONE) 03/08/2016 14 - Other: See Comments Comments: Reports coughing, headache, dizziness, nausea, wheezing. TAMIFLU (OSELTAMIVIR) 12/30/2017 5 - Intolerance Comments: Reported abdominal pain, changes in breathing, and severe dry mouth tape [Other] 03/28/2006 2 - Rash ADVIL (IBUPROFEN) 08/08/2005 5 - Intolerance Comments: severe headache Date Reviewed: 01/28/2018 Reviewed by: Apolinar Cazares - Fully Assessed Primary Visit Diagnosis:Hematuria, unspecified type [R31.9] Other Visit Diagnoses:Atrial fibrillation, unspecified type (HCC) [I48.91] Mixed hyperlipidemia [E78.2] Essential hypertension, benign [I10] Breast neoplasm [D49.3] Mass of upper lobe of lung [R91.8] Acute systolic CHF (congestive heart failure) (HCC) [I50.21] Tobacco use disorder [F17.200] Edema leg [R60.0] Weight loss [R63.4] Malaise [R53.81] Gross hematuria [R31.0] Order(s):UA DIP B/O [[id number]] Order #: [id number] ECG COMPLETE W INTERPRETATION [ECG01] Order #: [id number] FUTURE CBC + DIFF [SQCBCDIF] Order #: [id number] FUTURE NT PRO BNP [SQNTBNP] Order #: [id number] FUTURE URINE CULTURE [SQURCUL] Order #: [id number] TSH BLD [SQTSH] Order #: [id number] FUTURE ranitidine (ZANTAC 75) 75 mg tabletTake 1 tablet by mouth twice daily.Disp: 60 tabletRfl: 11 ciprofloxacin HCl (CIPRO) 250 mg tabletTake 1 tablet by mouth twice daily for 7 days.Disp: 14 tabletRfl: 0 CT UROGRAM WO/W IVCON [[id number]] Order #: [id number] FUTURE iv contrast (will be provided with radiology test)CT Urogram WO/W Inject, intravenously, once for 1 dose.No IV access, insert saline lock prior to the beginning of sedation, infusion, injection of imaging exam. Discontinue saline lock post exam. If Pt. has a central line or IVAD, may access for administration according to line specific nursing protocol. Once exam is complete flush line and de-access according to line specific nursing protocol in the CT contrast administration guidelines link.Disp: 1 EachRfl: 0 Prescriptions as of 04/04/2018 Sig: TIOTROPIUM BROMIDE 2.5 MCG/AC* Inhale 2 Puffs as instructed * CARVEDILOL 25 MG TABLET Take 25 mg by mouth twice lynda* FUROSEMIDE 40 MG TABLET Take 40 mg by mouth once yoli* RIVAROXABAN 20 MG TABLET Take 1 tablet by mouth daily * QUINAPRIL 20 MG TABLET Take 1 tablet by mouth twice * FLUTICASONE 250 MCG-SALMETERO* Inhale 1 Puff as instructed t* ALBUTEROL SULFATE HFA 90 MCG/* Inhale 2 Puffs as instructed * EMOLLIENT COMBINATION NO.10 T* APPLY 1 APPLICATION TO AFFECT* VITAMIN B COMPLEX ER TABLET,E* Take 1 tablet by mouth once d* VITAMIN E 400 UNIT TABLET Take 1 tablet by mouth once d* MULTIVITAMIN ORAL Take 1 tablet by mouth once d* ACETAMINOPHEN 500 MG TABLET Take one(1) tablet every four* RANITIDINE 75 MG TABLET Take 1 tablet by mouth twice * CIPROFLOXACIN 250 MG TABLET Take 1 tablet by mouth twice * IV CONTRAST (RADIOLOGY PROCED* CT Urogram WO/W Inject, intra* TRIAMCINOLONE ACETONIDE 0.025* Apply 1 application to affect* Problem List As Of Date 04/04/2018 Noted Resolved Breast neoplasm [D49.3] Priority: B More... Essential Hypertension, Benign [I10] INVALID FOR* Priority: A Osteoarth NOS-Unspec [M19.90] INVALID FOR* Malig Yayo Lymph-Axilla/Arm [C77.3] INVALID FOR*07/10/2010 Sebaceous Cyst [L72.3] INVALID FOR*07/10/2010 Unspecified Pleural Effusion [J90] INVALID FOR*07/10/2010 SCREEN (SEE ALSO ADMISSION) CANCER - COLON [Z*INVALID FOR*07/10/2010 Emphysema of lung (HCC) [J43.9] INVALID FOR* Priority: A Tobacco Use Disorder [F17.200] INVALID FOR* POLYP COLON [D12.6] INVALID FOR* Priority: B More... DIVERTICULOSIS [K57.30] INVALID FOR*02/01/2017 Priority: B Routine general medical examination at a [facility]*INVALID FOR*08/01/2012 Class: Chronic More... Routine gynecological examination [Z01.419] INVALID FOR*08/01/2012 Class: Chronic More... RIB LESION, UNCERTAIN BEHAVIOR [M99.9] INVALID FOR*08/14/2016 Priority: A More... Mixed Hyperlipidemia [E78.2] INVALID FOR* Priority: A Back pain [M54.9] INVALID FOR* Priority: B Personal history of breast cancer [Z85.3] INVALID FOR* COPD (chronic obstructive pulmonary disease) (H* 08/14/2016 Lumbar radiculopathy [M54.16] INVALID FOR* DDD (degenerative disc disease), lumbar [M51.36]INVALID FOR* Lumbar scoliosis [M41.9] INVALID FOR* Persistent atrial fibrillation (HCC) [I48.1] INVALID FOR* More... Mass of upper lobe of lung [R91.8] INVALID FOR* More... Acute systolic CHF (congestive heart failure) (*INVALID FOR* More... Visit Notes: >> Brynn Landaverde Ma SatApr 04, 2018 8:58 AM Status: Signed LUNG MASS:Pt saw Dr Cazares on 01/28/18 and was advised to have a PET scan done based on her history of smoking and breast cancer. Based on PET scan results she was advised to get a biopsy. Pt feels that she has had this nodule for a long time and there is not a need. She is also concerned about her lung collapsing during the procedure. She is seeing Lopez Garza also. A FIB: Pt feels the new medications are causing multiple side effects. She is taking Coreg, Lasix, and Xarelto. She complains of swelling in her legs and feet, decreased energy, back pain, constipation, decreased appetite, dry mouth. Saw Manolo Rothman CNP at [facility] in February. FALL: Pt fell on 03/23/18 and land on her backside on top of her push mower. She later on urinated a pink color that day. She has done this on 03/27, 04/01, and 04/02. She also complains of abdominal cramping since. MOLE: Pt has a large irregular mole on her right axilla area that she keeps scratching at. Prescriptions ordered this encounter Disp Refills Start End RANITIDINE 75 MG TABLET 60 t* 11 04/04/2018 Class: OTC Route: ORAL Sig: Take 1 tablet by mouth twice daily. CIPROFLOXACIN 250 MG TABLET 14 t* 0 04/04/2018 04/11/2018 Route: ORAL Sig: Take 1 tablet by mouth twice daily for 7 days. IV CONTRAST (RADIOLOGY PROCEDURE) 1 Ea* 0 04/04/2018 04/05/2018 Class: In Office Sig: CT Urogram WO/W Inject, intravenously, once for 1 dose.No IV access, insert saline lock prior to the beginning of sedation, infusion, injection of imaging exam. Discontinue saline lock post exam. If Pt. has a central line or IVAD, may access for administration according to line specific nursing protocol. Once exam is complete flush line and de-access according to line specific nursing protocol in the CT contrast administration guidelines link. Medications Discontinued During This Encounter hydrOXYzine pamoate (VISTARIL) 25 mg* 30 c* 0 01/09/2018 04/04/2018 Route: ORAL Sig: Take 1 capsule by mouth three times daily as needed. Patient not taking: Reported on 04/04/2018 Disc: Reason for discontinue is not on file. Disposition: Return in about 2 weeks (around 04/18/2018). Follow-up and Disposition History Recorded Encounter Status:Closed by JUAN MCDANIEL MD on 04/04/18 COMP METABOLIC PANEL Collected: 04/04/2018 Status: F Source: [place] 8:31 AM [facility] REPOSITORY TYPE CODE TESTS RESULT OUT OF REFERENCE UNITS RANGE LAB TP 6.3-8.0 g/dL Protein, Total 7.0 LAB ALB 3.9-4.9 g/dL Albumin 4.1 LAB CA 8.5-10.2 mg/dL Calcium, High Total 10.4 LAB TBIL 0.2-1.3 mg/dL Bilirubin, High Total 1.6 LAB ALKP 32-117 U/L Alkaline High Phosphatase 142 LAB AST 13-35 U/L AST 33 LAB GLU 74-99 mg/dL Glucose High 109 Result Comment: The [place] Diabetes Association (ADA) provides guidance for cutoff values for fasting glucose and random glucose. The ADA defines fasting as no caloric intake for at least 8 hours. Fas ting plasma glucose results between 100 to 125 mg/dL indicate increased risk for diabetes (prediabetes). Fasting plasma glucose results greater than or equal to 126 mg/dL meet the criteria for diagnosis of diabetes. In the absence of unequivocal hyperglycemia, results should be confirmed by repeat testing. In a patient with classic symptoms of hyperglycemia or hyperglycemic crisis, random plasma glucose results greater than or equal to 200 mg/dL meet the criteria for diagnosis of diabetes. Reference: Standards of Medical Care in Diabetes 2016, [place] Diabetes Association. Diabetes Care. 2016.39(Suppl 1). LAB BUN 7-21 mg/dL BUN Low 6 LAB CRET 0.58-0.96 mg/dL Creatinine 0.65 LAB NA 136-144 mmol/L Sodium Low 135 LAB K 3.7-5.1 mmol/L Potassium 3.9 LAB CL 97-105 mmol/L Chloride Low 93 LAB CO2 22-30 mmol/L CO2 30 LAB AGAP 9-18 mmol/L Anion Gap 12 LAB ALT 7-38 U/L ALT 30 LAB GFRAA eGFR- Amer. >60 LAB GFRNAA . eGFR-All Other Races >60 Result Comment: eGFR (Estimated GFR) Units of measure: mL/min/1.73 meters squared eGFR is derived from the reexpressed MDRD Study equation using the following parameters: serum creatinine, age, gender and race. The creatinine assay has been calibrated to be traceable to IDMS. An eGFR <60 mL/min/1.73m2 for >3 months is consistent with chronic kidney disease. Refer to KDOQI guidelines for clinical interpretation. In patients with unstable renal function, e.g. those with acute kidney injury, the eGFR may not accurately reflect actual GFR. Performed By: #### CMP, LIPB #### [facility] [address] [place], [place] [address] LIPID PANEL, BASIC Collected: 04/04/2018 Status: F Source: [place] 8:31 AM [facility] REPOSITORY TYPE CODE TESTS RESULT OUT OF REFERENCE UNITS RANGE LAB CHOL <200 mg/dL Cholesterol 140 Result Comment: <200 mg/dL, Desirable 200-239 mg/dL, Borderline high >239 mg/dL, High LAB TRIGLY <150 mg/dL Triglyceride 87 Result Comment: <150 mg/dL, Normal 150-199 mg/dL, Borderline high 200-499 mg/dL, High >499 mg/dL, Very high LAB HDL >39 mg/dL HDL-Cholesterol Low 36 Result Comment: 40-59 mg/dL, Acceptable >59 mg/dL, High: Negative risk factor for coronary heart disease <40 mg/dL, Low: Positive risk factor for coronary heart disease LAB LDL <100 mg/dL LDL-Cholesterol 87 Result Comment: <100 mg/dL, Optimal 100-129 mg/dL, Near optimal/above optimal 130-159 mg/dL, Borderline high 160-189 mg/dL, High >189 mg/dL, Very high Secondary prevention optimal LDL Cholesterol levels are recommended to be < 70 mg/dL LAB NONHDL <130 mg/dL Non HDL Cholesterol 104 Result Comment: <130 mg/dL, Optimal 130-159 mg/dL, Near optimal/above optimal 160-189 mg/dL, Borderline high 190-219 mg/dL, High >219 mg/dL, Very high Secondary prevention optimal non HDL Cholesterol levels are recommended to be < 100 mg/dL LAB FT hrs Fasting Time 14 LAB VLDL <30 mg/dL VLDL Cholesterol 17 LAB TCHDL <5.10 TC:HDL Ratio 3.89 LAB LDLHDL <2.54 LDL:HDL Ratio 2.42 Result Comment: Reference: 1. National Cholesterol Education Program ATP III Guideline At-A-Glance Quick Desk Reference: National Heart, Lung, and Blood Inez. National Institutes of Health. 2001: NIH Publication No. 01-3305. 2. An International Atherosclerosis Society position paper: global recommendations for the management of dyslipidemia: executive summary, Atherosclerosis. 2014: 232(2):410-413. Performed By: #### CMP, LIPB #### [facility] [address] [place] [id number] CNPN Observed: 04/04/2018 Status: COMPLETED Source: [place] 12:00 AM [facility] REPOSITORY Telephone (HEMAWS) CECILE VALLEJO ([id number]) 1945 F Date Time Provider Department 04/04/18 APOLINAR CAZARES During your visit today, we recorded the following information about you: Apolinar Cazares DO 04/04/2018 12:41 PM Signed I received a note from Dr. Mcdaniel who had discussed the importance of biopsy with the patient. She is now agreeable to biopsy. Please schedule at [facility] to be done under CT guidance. I would like for her to have an office visit with me established complex approximately 5-7 days after the biopsy. Please remind her to take Xarelto so the last dose is at least 48 hours prior to the biopsy. She may restart Xarelto when the radiologist who does the biopsy tells her it will be okay to do so. ? DO Angelica Pedro PSR 04/04/2018 2:39 PM Addendum Scheduled at [facility] on 04/16/18 @ 10:00 AM. Spoke with PT and relayed appointment information and CT prep guidelines per [facility]. Also scheduled follow-up on 04/28 @ 4:10 PM. Advised PT per Dr. Cazares to stop taking Xarelto only [address] due to A Fib. Mailing reminder of follow-up with hand-written information on CT guided biopsy appointment. Angelica Jacob PSR Allergies As of Date: 04/04/2018 Noted Allergy Reaction SULFA (SULFONAMIDE ANTIBIOTICS) 08/08/2005 2 - Rash Comments: SOME SULFA DRUGS Specifically reacted to topical sulfa cream, pt stated. CODEINE 03/05/2008 Comments: Severe headaches COMBIVENT (IPRATROPIUM-ALBUTEROL) 08/25/2012 7 - Swelling DOXYCYCLINE 08/08/2005 5 - Intolerance Comments: Stomach pains..it makes me double over, pt stated. DULERA (MOMETASONE-FORMOTEROL) 09/03/2012 5 - Intolerance Comments: tachycardia GABAPENTIN 06/16/2014 14 - Other: See Comments Comments: Loss of balance HCTZ (AMILORIDE-HYDROCHLOROTHIAZI*01/19/2009 Comments: blurry vision, fatigue IODINE 08/08/2005 MERCUROCHROME (MERBROMIN) 08/08/2005 5 - Intolerance Comments: Wound becomes infected, inflamed AND hyper- reactionary, pt stated. MERTHIOLATE [Other] 08/08/2005 METOPROLOL 07/17/2013 3 - Cough PREDNISONE 01/19/2009 Comments: messed up stomach patient states is able to take in small divided doses QVAR (BECLOMETHASONE) 03/08/2016 14 - Other: See Comments Comments: Reports coughing, headache, dizziness, nausea, wheezing. TAMIFLU (OSELTAMIVIR) 12/30/2017 5 - Intolerance Comments: Reported abdominal pain, changes in breathing, and severe dry mouth tape [Other] 03/28/2006 2 - Rash ADVIL (IBUPROFEN) 08/08/2005 5 - Intolerance Comments: severe headache Date Reviewed: 01/28/2018 Reviewed by: Apolinar Cazares - Fully Assessed Reason for Visit: Biopsy Request [[id number]] Prescriptions as of 04/04/2018 Sig: TIOTROPIUM BROMIDE 2.5 MCG/AC* Inhale 2 Puffs as instructed * RANITIDINE 75 MG TABLET Take 1 tablet by mouth twice * CIPROFLOXACIN 250 MG TABLET Take 1 tablet by mouth twice * IV CONTRAST (RADIOLOGY PROCED* CT Urogram WO/W Inject, intra* CARVEDILOL 25 MG TABLET Take 25 mg by mouth twice lynda* FUROSEMIDE 40 MG TABLET Take 40 mg by mouth once yoli* RIVAROXABAN 20 MG TABLET Take 1 tablet by mouth daily * QUINAPRIL 20 MG TABLET Take 1 tablet by mouth twice * TRIAMCINOLONE ACETONIDE 0.025* Apply 1 application to affect* FLUTICASONE 250 MCG-SALMETERO* Inhale 1 Puff as instructed t* ALBUTEROL SULFATE HFA 90 MCG/* Inhale 2 Puffs as instructed * EMOLLIENT COMBINATION NO.10 T* APPLY 1 APPLICATION TO AFFECT* VITAMIN B COMPLEX ER TABLET,E* Take 1 tablet by mouth once d* VITAMIN E 400 UNIT TABLET Take 1 tablet by mouth once d* MULTIVITAMIN ORAL Take 1 tablet by mouth once d* ACETAMINOPHEN 500 MG TABLET Take one(1) tablet every four* Problem List As Of Date 04/04/2018 Noted Resolved Breast neoplasm [D49.3] Priority: B More... Essential Hypertension, Benign [I10] INVALID FOR* Priority: A Osteoarth NOS-Unspec [M19.90] INVALID FOR* Malig Yayo Lymph-Axilla/Arm [C77.3] INVALID FOR*07/10/2010 Sebaceous Cyst [L72.3] INVALID FOR*07/10/2010 Unspecified Pleural Effusion [J90] INVALID FOR*07/10/2010 SCREEN (SEE ALSO ADMISSION) CANCER - COLON [Z*INVALID FOR*07/10/2010 Emphysema of lung (HCC) [J43.9] INVALID FOR* Priority: A Tobacco Use Disorder [F17.200] INVALID FOR* POLYP COLON [D12.6] INVALID FOR* Priority: B More... DIVERTICULOSIS [K57.30] INVALID FOR*02/01/2017 Priority: B Routine general medical examination at a health*INVALID FOR*08/01/2012 Class: Chronic More... Routine gynecological examination [Z01.419] INVALID FOR*08/01/2012 Class: Chronic More... RIB LESION, UNCERTAIN BEHAVIOR [M99.9] INVALID FOR*08/14/2016 Priority: A More... Mixed Hyperlipidemia [E78.2] INVALID FOR* Priority: A Back pain [M54.9] INVALID FOR* Priority: B Personal history of breast cancer [Z85.3] INVALID FOR* COPD (chronic obstructive pulmonary disease) (H* 08/14/2016 Lumbar radiculopathy [M54.16] INVALID FOR* DDD (degenerative disc disease), lumbar [M51.36]INVALID FOR* Lumbar scoliosis [M41.9] INVALID FOR* Persistent atrial fibrillation (HCC) [I48.1] INVALID FOR* More... Mass of upper lobe of lung [R91.8] INVALID FOR* More... Acute systolic CHF (congestive heart failure) (*INVALID FOR* More... Encounter Status:Closed by TRA KIMBROUGH ANGELICA on 04/04/18 CBC-COMPLETE BLOOD CNT Collected: 03/07/2018 Status: F Source: [place] NO [place] 9:39 AM [facility] REPOSITORY TYPE CODE TESTS RESULT OUT OF RANGE REFERENCE UNITS LAB L100.1000 4.4-11.0 K/mm3 Normal WBC 5.6 LAB L100.1200 4.2-5.4 M/mm3 Normal RBC 4.76 LAB L100.1300 12.0-15.0 g/dl Normal HGB 14.6 LAB L100.1400 37-47 % Normal HCT 45.4 LAB L100.1500 81-99 fL Normal MCV 95.4 LAB L100.1600 27.0-32.0 pg Normal MCH 30.7 LAB L100.1700 32-36 g/gl Normal MCHC 32.2 LAB L100.1810 11.6-14.6 % Normal RDW CV 12.8 LAB L100.1820 35.1-43.9 fl Normal RDW SD 43.5 LAB L100.1900 150-450 K/mm3 Normal PLT 249 LAB L100.2000 6.2-12.0 fl Normal MPV 9.8 Performed By: #### L100.0500 #### [facility] [address] [place], [place], [address] PROTHROMBIN TIME W/INR Collected: 03/07/2018 Status: F Source: [place] 9:39 AM [facility] REPOSITORY TYPE CODE TESTS RESULT OUT OF RANGE REFERENCE UNITS LAB L300.4150 11.7-14.9 SECONDS Normal PROTIME 14.3 LAB L300.4200 Normal INR 1.1 Performed By: #### L300.3900 #### [facility] [address] [place], [address] PULMONARY VISIT REPORT Observed: 03/04/2018 Status: F Source: [place] 9:58 AM [facility] REPOSITORY Pulmonary Medicine of [address] [place] [address] OFFICE VISIT Date of Service: 03/04/18 MR#: [id number] Acct: [id number] Name: CECILE VALLEJO Rep #: [id number] : 1945 Provider: Mark Campos D.O. Age/Sex: 72/F Location: [facility].PMW Status: Signed Assessment AND Plan 1. COPD (chronic obstructive pulmonary disease) J44.9 Plan The patient has evidence of very severe COPD based upon her recent pulmonary function testing. She is currently utilizing Advair and as needed albuterol. However, her reliance on her short acting beta agonist is excessive. Therefore, we will plan to start her on Spiriva Respimat to be used in conjunction with Advair as a maintenance inhaler regimen. She can continue to utilize albuterol on an as-needed basis. The patient will follow up with our nurse practitioner to assess her symptom response to therapy. 2. Lung mass R91.8 Plan The patient's recent PET scan was personally reviewed at today's office visit. The suspicious lesion in the left upper lobe fulfilled quantitative criteria for viable neoplasm. Therefore, I recommended that the patient undergo a percutaneous CT-guided lung biopsy for further evaluation. She is agreeable to proceed accordingly. Will place orders for CBC with PT/INR. The patient will need to hold her Xarelto therapy prior to the procedure. Depending on the results of the biopsy, she may need to follow-up with Dr. Cazares of oncology. Orders Orders: 3. Tobacco dependency F17.200 Plan I personally discussed the ongoing deleterious effects of tobacco use with the patient, including modalities which could be utilized to achieve a smoke-free lifestyle. The patient is now attempting to cut back. Plan Detail Other Orders Orders: Other Medications New: Follow Up 1 Month ([facility]) HPI HPI Comments Details: The patient is a 72-year-old female who presents to the clinic today for a routine scheduled follow-up office visit. The patient was recently admitted to the hospital December 30- with decompensated diastolic heart failure, new onset atrial fibrillation and suspected COPD. A CTA chest was completed during that hospitalization was negative for the presence of pulmonary embolism. However, there was note of a new spiculated masslike lesion in left upper lobe measuring 2.9 x 1.9 cm. Surface echocardiogram revealed an ejection fraction of 60% with an RVSP which was estimated to be 43 mmHg. Pulmonary function testing completed January 31, 2018 revealed the presence of an irreversible very severe large airways obstructive ventilatory defect with associated air trapping and reduction in diffusing capacity. A 6 minute walk test was also completed at that time and revealed evidence of impaired walk distance without the need for supplemental oxygen with exertion. A PET scan, ordered by Dr. Cazares, and completed on February 03 revealed increased glucose uptake in the left upper lobe that fulfilled quantitative criteria for viable neoplasm. Today, the patient reports continued cough and shortness of breath. The patient's cough is productive of sputum. She is currently utilizing Advair and as needed albuterol. She is relying on her rescue inhaler 4 times per day. The patient has a smoking history of 0.5 packs per day 50 years, but is cut back to 0.25 packs per day. She is insistent that despite her prolonged smoking history, she has never inhaled a cigarette. Her weight has remained stable. However, her appetite is poor. She denies fevers, chills or night sweats. She denies chest pain, dizziness or lightheadedness. The results from her recent PET scan were personally reviewed with her at today's office visit. Intake Vital Signs03/04/18 Height 5 ft 4 in 03/04/18 Weight: 180 lb Intake Visit Reasons: 1 M FU Chief Complaint: CHF/ A.Fib Accompanied by: Family / Other Allergies albuterol sulfate [From Combivent] Allergy (Verified 03/04/18 09:10) Swelling ipratropium bromide [From Combivent] Allergy (Verified 03/04/18 09:10) Swelling metoprolol Allergy (Verified 03/04/18 09:10) Laryngospasms Sulfa (Sulfonamide Antibiotics) Allergy (Verified 03/04/18 09:10) Rash beclomethasone [From Qvar] Adverse Reaction (Verified 03/04/18 09:10) COUGHING benzalkonium chloride [From Merthiolate (benzalkonium)] Adverse Reaction (Verified 03/04/18 09:10) Other codeine Adverse Reaction (Verified 03/04/18 09:10) doesn't remember doxycycline Adverse Reaction (Verified 03/04/18 09:10) Abd cramps/diarrhea formoterol fumarate [From Dulera] Adverse Reaction (Verified 03/04/18 09:10) Other hydrochlorothiazide Adverse Reaction (Verified 03/04/18 09:10) Other ibuprofen [From Advil] Adverse Reaction (Verified 03/04/18 09:10) Other iodine Adverse Reaction (Verified 03/04/18 09:10) Itching merbromin Adverse Reaction (Verified 03/04/18 09:10) Other mometasone furoate [From Dulera] Adverse Reaction (Verified 03/04/18 09:10) Other oseltamivir [From Tamiflu] Adverse Reaction (Verified 03/04/18 09:10) uterine pain prednisone Adverse Reaction (Verified 03/04/18 09:10) Abd cramps/diarrhea PLASTIC TAPE Allergy (Uncoded 03/04/18 09:10) Rash Medications Fluticasone/Salmeterol [Advair 250/50 Mcg Diskus] 1 puff INHALATION BID 04/11/15 [History Confirmed 03/04/18] Quinapril HCl [Accupril] 20 mg PO BID 04/11/15 [History Confirmed 03/04/18] Acetaminophen [Tylenol] 325 mg PO Q4H PRN PRN 10/16/16 [History Confirmed 03/04/18] Albuterol Inhaler [Ventolin Hfa] 1 - 2 puff INHALATION Q4H PRN PRN 10/16/16 [History Confirmed 03/04/18] Multivitamins,Therapeutic [Multivitamin] 1 tab PO DAILY 10/16/16 [History Confirmed 03/04/18] Vitamin B Complex 1 ea PO DAILY 10/16/16 [History Confirmed 03/04/18] Vitamin E 400 unit PO DAILY 10/16/16 [History Confirmed 03/04/18] carvedilol 25 mg tablet 25 mg PO BID #180 tab 01/20/18 [Rx Confirmed 03/04/18] furosemide 40 mg tablet 40 mg PO DAILY #90 tab 01/20/18 [Rx Confirmed 03/04/18] rivaroxaban 20 mg tablet 20 mg PO DINNER #90 tab 01/20/18 [Rx Confirmed 03/04/18] tiotropium bromide 2.5 mcg/actuation mist for inhalation 2 puff INHALATION QDAY #1 device 03/04/18 [Rx Confirmed 03/04/18] [facility] Medical History Thrush, oral (Acute) Lung mass (Acute) Suspected chronic obstructive pulmonary disease based on initial evaluation (Chronic) Acute CHF (Acute) New onset A. fib with RVR (Acute) History of breast cancer (Chronic) COPD (chronic obstructive pulmonary disease) (Chronic) Hypertension (Chronic) Surgical History History of left mastectomy (Resolved) History of lumpectomy of right breast (Resolved) History of tubal ligation (Resolved) polyp removal (Resolved) Family History Father Emphysema of lung Sister Cancer uterine cancer Social History Smoking Status: Current every day smoker second hand exposure: Yes alcohol intake: current alcohol intake frequency: a few times a month Alcohol type: wine substance use type: does not use caffeine: No what type of physical activity do you participate in: none seatbelt use: always do you feel safe at home: Yes Review of Systems Const CONSTITUTIONAL: Positive sleeping in chair and fatigue; negative anorexia, body ache, chills, daytime sleepiness, fever(s), night sweats, oral thrush, stops breathing during sleep, weight loss, weight loss, weight gain, frequent colds, seasonal allergies, other, headache(s) or orthopnea EETM Ear Nose Throat Mouth: Positive hearing normal; negative hard of hearing, hoarseness, dry mouth in morning, change in vision, itchy eyes, eye pain, swallowing Difficulty, ear pain, nose bleed, headache(s), mouth pain, nasal congestion, nasal discharge, post nasal drip, sinus pain, sinus pressure, sore throat or other Cardio Cardiovascular: Positive edema Location: lower extremity; negative chest pain, chest pain at rest, chest pain with activity, irregular heart rhythm, shortness of breath when lying down, palpitations, murmur or other Resp Respiratory: Positive as per HPI, shortness of breath shortness of breath: Positive with activity and cough cough: Positive productive color: Positive thick and white; negative pain with cough, wheezing, chest congestion, chest tightness, pain on inspiration, inhalers, increase use of rescue inhalers, snoring, apnea or other Gastro Gastrointestional: Negative bloody stools, change in appetite, difficulty swallowing, reflux, hematemesis, melena stool, loose stool, constipation or other Genitourinary: Negative blood in urine, nocturia, pain with urination or other Musc Musculoskeletal: Positive neck pain; negative body pain, back pain or other Skin/Breast Skin/Breast: Negative dry skin, itching, rash, unusual bruising, breast lump or other Neuro Neurological: Negative restless legs, confusion, weakness or other Psych Psychocological: Negative abnormal sleep pattern, anxiety, thoughts of hurting self/others, hopelessness or other Lymph Lymphatic: Negative easy bleeding, easy bruising, swollen lymph nodes or other Exam Const Constitutional: Positive conversant, cooperative, in no acute respiratory distress, well developed and smells of smoke Head Head: Positive normocephalic and atraumatic; negative cyanosis of lips/distal nose Eyes Eye: Positive clear conjunctiva; negative nystagmus or scleral abnormality Ears Ear: Positive hearing normal and external ears normal; negative hard of hearing Nose Nose: Positive external nose normal; negative epistaxis Mouth Mouth: Positive oral mucosae normal and posterior oropharynx is adequate; negative no lesions or post nasal drip Mallampati Score: II: Mallampati Score Neck Neck: Positive normal visual inspection and trachea midline; negative lymphadenopathy Chest Wall Chest: Positive symmetric chest movement Normal AP diameter. Resp lung sounds: Positive diminished diminished: Positive global and normal expiratory time; negative wheezes, rhonchi or rales Cardio Cardiac: Positive S1 normal and S2 normal; negative rub, gallop or murmur Irregular GI GI: Positive normal bowel sounds Soft without distention Genitourinary: Positive deferred Musc Musculoskeletal: Positive in a wheelchair Skin Pulmonary Skin Exam: Positive intact; negative lesion, ulcers, dermal atrophy or rash Pulses Pulse: Yes Pedal pulses present: Extremities Extremities: No clubbing, No cyanosis, Yes edema Location: lower extremity Neuro Neurologic: Yes conversant, Yes no focal neuro deficits, Yes cooperative Lymph Lymphatic: No lymphadenopathy Psych Appearance: Positive grossly normal Mental Status: Positive mental status grossly normal Mood: Positive congruent mood Affect: Positive flat Coding Level of Care Code Off vis,est,level 4 Diagnoses COPD (chronic obstructive pulmonary disease) J44.9 Lung mass R91.8 Tobacco dependency F17.200 03/04/18 0958 <Electronically signed by Mark Campos DO> Date Mark Campos DO Cosigner Signature: Date (if applicable) CC: Juan Mcdaniel MD PT-PET [id number] Observed: 02/03/2018 Status: F Source: [place] (ADULT) [place] 12:00 AM [facility] [facility] Images were obtained outside of [facility] [id number] PULMONARY FUNCTION Observed: 01/31/2018 Status: F Source: SATINDER TEST 10:57 AM [facility] REPOSITORY [facility] Pulmonary Services/Neurology [address] [place] [address] MR#: [id number] Acct: [id number] Name: CECILE VALLEJO Rep #: [id number] : 1945 72 From: Mark Campos DO Referring Dr: Jayleen Burr NP Status: REG CLI Ordering Dr: Date: Location: [facility] Sex: F C INTRODUCTION: The patient is a 72-year-old female currently under the care of myself the presents for pulmonary function testing secondary to a diagnosis of COPD. Respiratory therapy reports good patient effort and reports no other concerns. Bronchodilators were used during testing. INTERPRETATION: Forced expiration spirometry demonstrates the presence of a very severe large airways obstructive ventilatory defect. There was no significant bronchodilator response noted. Spirograms and respiratory flow volume loop are consistent with airways obstruction. Body plethysmography was performed and reveals an elevated RV to 165% of predicted, indicative of underlying air trapping. Diffusing capacity by single breath CO is moderately reduced at 48% of predicted. IMPRESSION: These pulmonary function studies demonstrate the presence of an irreversible very severe large airways obstructive ventilatory defect with associated air trapping and reduction in diffusing capacity. 01/31/18 1057 <Electronically signed by Mark Campos DO> Date Mark Campos DO CC: Jayleen Mcdaniel MD Date Dictated: 01/31/18 1055 Date Transcribed: 01/31/18 105 [employer] Consultant: HUNTER Signed PET/CT TUMOR BASE Observed: 01/31/2018 Status: F Source: SATINDER -THIGH INIT 9:58 AM [facility] REPOSITORY [facility] Imaging Services [address] [place] [address] PET/CT Tumor Base -Thigh Init MR#: [id number] Acct: [id number] Name: CECILE VALLEJO Rep #: [id number] : 1945 F 72 From: Dionisio Rdz DO PCP: Juan Mcdaniel MD Status: REG CLI Study: PET/CT Tumor Base -Thigh Init Date of Exam: 02/03/18 Exam# [id number] Ordering Dr: Apolinar Cazares DO EXAMINATION: FDG PET CT INDICATIONS: A 72-year-old female with reported history of carcinoma of the breast presenting for restaging examination and evaluation of pulmonary nodularity. COMPARISON EXAMINATION: CT of the chest report dated 12/30/17. INDEX LESION SIZE SUV INTERPRETATION Left mid anterior hemithorax, left upper lobe 21.4 mm x 26.5 mm (frame 193) 6.8 Fulfills quantitative criteria for viable neoplasm, histopathologic analysis is recommended NON-INDEX LESION SIZE SUV INTERPRETATION Right breast heterogeneous 1.3 Quantitative criteria for viable neoplasm are not fulfilled Left anterior chest wall circumferential 1.1 Quantitative criteria for viable neoplasm are not fulfilled TECHNIQUE: Following the intravenous administration of 13.16 mCi of F-18 deoxyglucose via the left hand, multiplanar image acquisitions of the neck, chest, abdomen and pelvis to level of mid thigh, obtained at one hour post radiopharmaceutical administration contemporaneously interpreted with the current CT of the neck, chest, abdomen and pelvis to level of mid thigh, dated 02/03/[address] of the chest report dated 12/30/17 reveal: SERUM GLUCOSE LEVEL: 111 mg/dl. HEIGHT: 64 inches. WEIGHT: 175 lbs. FINDINGS: 1. Focal increased glucose metabolism is identified in the left mid anterior hemithorax pulmonary parenchyma, left upper lobe generating a calculated maximum standard uptake value of 6.8. The maximal axial diameter of the corresponding parenchymal density on review of CT of the thorax dated 02/03/18 is 21.4 mm (transverse) x 26.5 mm (AP). 2. Heterogeneous enhanced glucose metabolism is defined in the right breast with a calculated standard uptake value of 1.3. Quantitative criteria for viable neoplastic transformation are not fulfilled. 3. A circumferential increase in glucose concentration is demonstrated in the left upper anterior chest wall corresponding to a partially calcified soft tissue mass generating a calculated maximum standard uptake value of 1.1. 4. Normal physiologic distribution of the radiopharmaceutical is apparent in the hepatic (3.7) and splenic parenchyma, both renal units, bladder and visualized intestinal tract. There is uniform distribution of the radiopharmaceutical concentration compared on the cerebellar hemispheres and cerebral cortex. Diffuse intestinal tract activity is noted throughout all four quadrants of the abdominal-pelvic retroperitoneum, mesentery consistent with normal physiologic distribution of the radiopharmaceutical. Pertinent CT findings are as follows. CHEST: Surgical clips are identified in the bilateral axillary regions. The left breast is surgically absent. Atherosclerotic calcification is defined in the thoracic aorta without evidence of dilatation, aneurysm formation. Coronary arterial calcification is observed. A small left hemithorax pleural effusion demonstrates no evidence of quantitatively significant increased glucose metabolism. There are no additional parenchymal densities-nodules noted in the right-left hemithorax manifesting quantitatively significant increased glucose metabolism. Subcentimeter bilateral axillary soft tissue densities are non-glucose avid. ABDOMEN AND PELVIS: Cholelithiasis is defined. Atherosclerotic calcification is defined in the abdominal aorta without evidence of dilatation, aneurysm formation. Pelvic arterial calcification is observed. Right- left inguinal soft tissue densities with fatty hilus formation are ametabolic. SKELETAL: Degenerative changes defined in the cervical, thoracic and lumbar spine demonstrate no evidence for glucose hypermetabolism. PET/PET/CT Tumor Base -Thigh Init IMPRESSION: 1. Increased fluorine labeled glucose uptake defined in the left mid anterior hemithorax pulmonary parenchyma, left upper lobe fulfills quantitative criteria for viable neoplasm. Histopathologic analysis is recommended. (Polanco et al, Annals of Internal Medicine, 138:724, 2003). 2. Heterogeneous enhanced glucose metabolism manifest in the breast does not fulfill quantitative criteria for viable neoplasm. 3. The circumferential increase in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 History Smoking Status: Current every day smoker second hand exposure: Yes alcohol intake: current alcohol intake frequency: a few times a month Alcohol type: wine substance use type: does not use caffeine: No what type of physical activity do you participate in: none seatbelt use: always do you feel safe at home: Yes ROS Const Const: Negative for fatigue, weakness, body ache, fever(s) or chills ENT ENT: Negative for dizziness Cardio Chest Pain: No Palpitations: No Edema: Left Muscle aches with walking: None Resp Respiratory: Positive for SOB with activity and SOB orthopnea\SOB lying down; negative for SOB at rest or paroxysmal nocturnal dyspnea GI GI: Negative nausea, black,tarry stools, bright, red blood in stools or vomiting blood/hematemesis : Negative for hematuria or frequent nighttime urination/ nocturia Musc Musc: Negative for muscle aches/ myalgia Neuro Neuro: Negative for weakness, dizziness, lightheadedness, near syncope, syncope or orthostatic symptoms Endo Endo: Negative for fatigue Cardiology Exam Const Appearance: cooperative, healthy appearing, comfortable and no acute distress Orientation: alert, awake and oriented x3 Head Head: normal to inspection Mouth: oral mucosae normal Neck Neck: no JVD and normal visual inspection Carotids: normal carotid upstroke Chest Chest inspection: normal inspection of the chest and normal respiratory effort Auscultation: Bilateral: Clear to Auscultation Cardio Rate: regular rate Rhythm: irregular rhythm Heart sounds: S1 normal and S2 normal; negative rub or gallop GI GI: normal to inspection Neuro General: alert, awake, oriented x3 and CN's II-XI intact bilaterally Skin Skin: no rashes or lesions noted Extremities Pulses: Normal: Right Posterior Tibial Pulse, Left Posterior Tibial Pulse, Right Radial Pulse, Left Radial Pulse Lower Extremity Edema: None: Left, +2: Right Psych Psychological: normal affect Supplemental Info Echocardiogram from December 2017 showed an estimated ejection fraction of 60%, moderately enlarged left atrium, mildly enlarged right atrium, mild mitral valve insufficiency, trivial tricuspid valve insufficiency, RVSP of 43 mmHg, mild pulmonary hypertension, trivial pericardial effusion, no echocardiographic indications of cardiac tamponade, and patient appear to be in atrial fibrillation. Lower extremity venous study was negative for right lower extremity DVT. Assessment AND Plan 1. New onset A. fib with RVR RAFAEL Portillo This does not appear to be causing any symptoms. Patient's heart rate is well controlled. She will continue with both beta-donovan and factor Xa inhibitor. We will continue to monitor this. 2. Essential hypertension I10 RAFAEL Portillo Patient blood pressures on the higher end of expected range. She will continue with current medications. We will continue to monitor this. 3. Suspected chronic obstructive pulmonary disease based on initial evaluation J44.9 RAFAEL Portillo Patient will continue to follow-up with pulmonology for further evaluation of this. We will defer to pulmonology team for management of this. 4. Lung mass R91.8 RAFAEL Portillo Patient will continue to follow-up with pulmonology for further evaluation of this. We will defer to pulmonology team for management of this. 5. Cough R05 Plan - RAFAEL Vanessa Patient does mention having a productive cough. She will continue pulmonology workup for this. She was reminded that if pulmonology workup cannot explain cough, we can consider switching EVELIN inhibitor. At this time we will not make any medication regimen changes and will continue to monitor this. Plan Detail Other Medications Refilled: Additional Comments - RAFAEL Vanessa Discussed the above patient with Dr. Jovel, he agrees with the plan of care. Thank you for allowing us to participate in the patients plan of care, if you have any questions please do not hesitate to call. This note was generated using a voice recognition system and there may be incorrect words, spelling or punctuation that were not noted when reviewing the office note prior to saving. Follow Up 6 Months (SACK SEWER) Coding Level of Care Code Off vis,est,level 3 Diagnoses New onset A. fib with RVR Essential hypertension I10 Hypertension type: essential hypertension Suspected chronic obstructive pulmonary disease based on initial evaluation J44.9 Lung mass R91.8 Cough R05 Coding Level of Care Code Off vis,est,level 3 Diagnoses New onset A. fib with RVR Essential hypertension I10 Hypertension type: essential hypertension Suspected chronic obstructive pulmonary disease based on initial evaluation J44.9 Lung mass R91.8 Cough R05 01/20/18 1153 <Electronically signed by Manolo CARVAJALC> Date Manolo CARVAJALC 01/21/18 1108<Electronically signed by Rusty Jovel MD> Cosigner Signature: Date (if applicable) Rusty Jovel MD CC: Juan Mcdaniel MD PULMONARY VISIT REPORT Observed: 01/16/2018 Status: F Source: [place] 5:39 PM [facility] REPOSITORY [facility] [address] [place] [address] OFFICE VISIT Date of Service: 01/16/18 MR#: [id number] Acct: [id number] Name: CECILE VALLEJO Rep #: [id number] : 1945 Provider: Jayleen Burr Age/Sex: 72/F Location: [facility] Status: Signed Assessment AND Plan 1. Suspected chronic obstructive pulmonary disease based on initial evaluation J44.9 Plan COPD changes noted on chest x-ray and CT. Smoking history of present, likely has COPD. Will obtain a complete pulmonary function test to identify if in fact she does have COPD and to quantify it. No maintenance medication changes done at this point, will await test results and if her plan to Dr. Campos at the one-month follow-up. Will also check for possible exertional hypoxia with a formal pulmonary stress test. If hypoxia is identified supplemental oxygen will be ordered appropriately. Orders Orders: 2. Lung mass R91.8 Status Acute Plan Unclear if this is new or existing. Have requested results of previous testing from [facility] for Dr. Campos to review prior to the one- month follow-up. Defer additional CT follow-up orders to Dr. Campos at the one-month follow-up. 3. Thrush, oral B37.0 Status Acute Plan New. Thrush was identified on exam today. She will be treated with nystatin 3 times daily. She has been encouraged to watch the lesions that identified today over the next 10 days to see if they resolve. Follow-up with Dr. Campos in 1 month. Plan Detail Other Medications New: nystatin swish and swallow 5 cc three times per day for 10 da5 mL Mucous Membrane TID ys Follow Up 1 Month ([facility]) [facility] Hospital FU: Chief Complaint: Cough HPI Comments Details: This is a 72 year old F, currently under the care of Juan Mcdaniel, here to follow up after a recent hospitalization at [facility] , from December 30 - January 02, 2018 for acute diastolic congestive heart failure, new onset A. fib with RVR, suspected COPD and left sided lung mass. The hospital stay relatively uncomplicated. 19 pages of hospital documentation was reviewed, and found to be significant for chest x-ray completed on December 30 showing left upper lobe airspace disease with possible nodule, CTA of the chest was completed on December 30, 2017 and was negative for pulmonary embolism, showed a stable calcified mass in the left anterior third rib and chest wall as compared to exam from 2010, however there was a new development of a spiculated masslike lesion in the left upper lobe measuring 2.9 x 1.9 cm. echocardiogram completed showed an EF of 60%, mild mitral valve insufficiency, trivial tricuspid valve insufficiency and RVSP estimated to be 43 mmHg and labeled as mild pulmonary hypertension. Upon discharge, the patient is on 40 mg of Lasix daily. Currently, she is ambulatory, on room air and accompanied by her . She states that her breathing is back to normal. She only uses her rescue inhaler rarely. She continues compliance with her maintenance medication consisting of Advair twice daily. She reports rinsing her mouth out after each use and denies any medication side effects such as sore throat or thrush. She believes that she had a pulmonary function test years ago. She currently smokes one half pack per day but never inhales. She has a history of breast cancer and received subsequent chemotherapy and radiation. She was told that she has scarring from the radiation. She believes that all of her breathing problems are related to the scarring. She does not feel as though she has COPD, but was told that she had a many years ago by a nurse. Currently she reports a nonproductive cough. She denies any sputum production or hemoptysis. She does experience shortness of breath on exertion. Denies any shortness of breath with conversation or at rest. She denies any chest pain or palpitations. She denies any other signs of bleeding such as easy bruising, hematemesis, hematochezia, epistaxis, or melena stools. See complete review of systems. Intake Vital Signs01/16/18 Height 5 ft 4 in 01/16/18 Weight: 174 lb Intake Visit Reasons: Hospital FU Chief Complaint: CHF/ A.Fib Accompanied by: Allergies albuterol sulfate [From Combivent] Allergy (Verified 01/16/18 09:47) Swelling ipratropium bromide [From Combivent] Allergy (Verified 01/16/18 09:47) Swelling metoprolol Allergy (Verified 01/16/18 09:47) Laryngospasms Sulfa (Sulfonamide Antibiotics) Allergy (Verified 01/16/18 09:47) Rash beclomethasone [From Qvar] Adverse Reaction (Verified 01/16/18 09:47) COUGHING benzalkonium chloride [From Merthiolate (benzalkonium)] Adverse Reaction (Verified 01/16/18 09:47) Other codeine Adverse Reaction (Verified 01/16/18 09:47) doesn't remember doxycycline Adverse Reaction (Verified 01/16/18 09:47) Abd cramps/diarrhea fluticasone [From Advair Diskus] Adverse Reaction (Verified 01/16/18 09:47) headache formoterol fumarate [From Dulera] Adverse Reaction (Verified 01/16/18 09:47) Other hydrochlorothiazide Adverse Reaction (Verified 01/16/18 09:47) Other ibuprofen [From Advil] Adverse Reaction (Verified 01/16/18 09:47) Other iodine Adverse Reaction (Verified 01/16/18 09:47) Itching merbromin Adverse Reaction (Verified 01/16/18 09:47) Other mometasone furoate [From Dulera] Adverse Reaction (Verified 01/16/18 09:47) Other oseltamivir [From Tamiflu] Adverse Reaction (Verified 01/16/18 09:47) uterine pain prednisone Adverse Reaction (Verified 01/16/18 09:47) Abd cramps/diarrhea PLASTIC TAPE Allergy (Uncoded 01/16/18 09:47) Rash Medications Fluticasone/Salmeterol [Advair 250/50 Mcg Diskus] 1 puff INHALATION BID 04/11/15 [History Confirmed 01/16/18] Quinapril HCl [Accupril] 20 mg PO BID 04/11/15 [History Confirmed 01/16/18] Acetaminophen [Tylenol] 325 mg PO Q4H PRN PRN 10/16/16 [History Confirmed 01/16/18] Albuterol Inhaler [Ventolin Hfa] 1 - 2 puff INHALATION Q4H PRN PRN 10/16/16 [History Confirmed 01/16/18] Multivitamins,Therapeutic [Multivitamin] 1 tab PO DAILY 10/16/16 [History Confirmed 01/16/18] Vitamin B Complex 1 ea PO DAILY 10/16/16 [History Confirmed 01/16/18] Vitamin E 400 unit PO DAILY 10/16/16 [History Confirmed 01/16/18] Carvedilol [Coreg (Beta Donovan)] 25 mg PO BID #60 tab 01/02/18 [Rx Confirmed 01/16/18] Furosemide [Lasix] 40 mg PO DAILY #30 tab 01/02/18 [Rx Confirmed 01/16/18] Rivaroxaban [Xarelto] 20 mg PO DINNER #30 tab 01/02/18 [Rx Confirmed 01/16/18] nystatin 100,000 unit/mL oral suspension 5 ml MUCOUS MEMBRANE TID #250 ml 01/16/18 [Rx Confirmed 01/16/18] [facility] Medical History Suspected chronic obstructive pulmonary disease based on initial evaluation (Chronic) Acute CHF (Acute) New onset A. fib with RVR (Acute) History of breast cancer (Chronic) COPD (chronic obstructive pulmonary disease) (Chronic) Hypertension (Chronic) Social History Smoking Status: Current every day smoker second hand exposure: Yes alcohol intake: current alcohol intake frequency: a few times a month substance use type: does not use Review of Systems Const CONSTITUTIONAL: Positive fatigue; negative anorexia, body ache, chills, daytime sleepiness, fever(s), night sweats, oral thrush, stops breathing during sleep, weight loss, sleeping in chair, weight loss, weight gain, frequent colds, seasonal allergies, other, headache(s) or orthopnea EETM Ear Nose Throat Mouth: Positive nasal congestion and post nasal drip; negative hard of hearing, hearing normal, hoarseness, dry mouth in morning, change in vision, itchy eyes, eye pain, swallowing Difficulty, ear pain, nose bleed, headache(s), mouth pain, nasal discharge, sinus pain, sinus pressure, sore throat or other Cardio Cardiovascular: Positive edema (now on Lasix ) Location: lower extremity and palpitations; negative chest pain, chest pain at rest, chest pain with activity, irregular heart rhythm, shortness of breath when lying down, murmur or other Resp Respiratory: Positive shortness of breath shortness of breath: Positive with activity, cough cough: Positive productive color: Positive thick and white and inhalers; negative as per HPI, pain with cough, wheezing, chest congestion, chest tightness, pain on inspiration, increase use of rescue inhalers, snoring, apnea or other Gastro Gastrointestional: Negative bloody stools, change in appetite, difficulty swallowing, reflux, hematemesis, melena stool, loose stool, constipation or other Genitourinary: Negative blood in urine, nocturia, pain with urination or other Musc Musculoskeletal: Negative body pain, back pain, neck pain or other Skin/Breast Skin/Breast: Negative dry skin, itching, rash, unusual bruising, breast lump or other Neuro Neurological: Negative restless legs, confusion, weakness or other Psych Psychocological: Negative abnormal sleep pattern, anxiety, thoughts of hurting self/others, hopelessness or other Lymph Lymphatic: Negative easy bleeding, easy bruising, swollen lymph nodes or other Exam Const Constitutional: Positive conversant, cooperative, in no acute respiratory distress, healthy appearing, well developed, well nourished and smells of smoke Head Head: Positive normocephalic and atraumatic; negative cyanosis of lips/distal nose Eyes Eye: Positive clear conjunctiva and nystagmus; negative scleral abnormality Ears Ear: Positive external ears normal; negative hard of hearing or hearing normal Nose Nose: Positive external nose normal and no nasal discharge; negative epistaxis Mouth Mouth: Positive post nasal drip, oral thrush present, oral mucosae normal, no lesions, poor dentition and posterior oropharynx is adequate; negative malodorous breath Mallampati Score: II: Mallampati Score Neck Neck: Positive normal visual inspection, full ROM and trachea midline; negative lymphadenopathy, JVD or tender Chest Wall Chest: Positive normal inspection of the chest and symmetric chest movement; negative increased A/P diameter Resp lung sounds: Positive wheeze present on forced exhalation, diminished, normal respiratory effort and prolonged expiratory time; negative wheezes, rhonchi, rales or dullness to percussion Cardio Cardiac: Positive S1 normal and S2 normal; negative murmur, regular rate or regular rhythm GI GI: Positive normal to inspection and normal bowel sounds; negative distended Genitourinary: Positive deferred Musc Musculoskeletal: Positive steady gait and ROM normal; negative kyphosis or scoliosis Skin Pulmonary Skin Exam: Positive intact; negative rash, lesion, ulcers, erythema, scaly or dermal atrophy Pulses Pulse: Yes pulses normal x4 extremities Extremities Extremities: Yes edema Location: lower extremity location: Bilateral pitting +2, Yes clubbing, No capillary refill normal, No cyanosis Neuro Neurologic: Yes conversant, Yes no focal neuro deficits, Yes cooperative, Yes normal cognition, Yes normal coordination, Yes normal concentration, Yes understands questions Lymph Lymphatic: No lymphadenopathy, No tenderness, No cervical adenopathy, No axillary adenopathy Psych Appearance: Positive grossly normal, eye contact and well kempt Mental Status: Positive mental status grossly normal Mood: Positive anxious mood and irritable mood Affect: Positive anxious affect and irritable affect Coding Level of Care Code Off vis,est,level 4 Diagnoses Suspected chronic obstructive pulmonary disease based on initial evaluation J44.9 Lung mass R91.8 Thrush, oral B37.0 01/16/18 1739 <Electronically signed by Jayleen HALL> Date Jayleen HALL Cosigner Signature: Date (if applicable) CC: Juan Mcdaniel MD PROGRESS Observed: 01/09/2018 Status: COMPLETED Source: [place] 9:03 AM [facility] [place] REPOSITORY [facility] ID: [id number] Author: Rashid (Bilingual School Psychologist) [place].[facility] Service: (none) Author Type: Nurse Practitioner Type: Progress Notes Filed: 01/09/2018 2:40 PM Note Text: Chief Complaint Patient presents with: [facility] F/U [facility] Cecile Vallejo is a 72 year old female who presents here today for Above Complaints.. Patient presents to the office for hospital follow up. Patient was originally in Dr. Mcdaniel's office on 12/30/2017. Had complaints of shortness of breath, tachycardia and bilateral leg swelling. Patient was found to be in atrial fibrillation with RVR. Sent to [facility] ER and was admitted. BNP was 223, chest x-ray indicated a left upper lobe opacity with irregularity. A CTA of the chest revealed no evidence of PE or dissection. It did reveal a speculated mass-like lesion in the left upper lobe measuring 2.9 X 1.9 cm. Pulmonology, Mark Campos DO, was consulted and will be following this finding outpatient. Patient does have prior finding of a calcified mass in the left anterior aspect of her chest wall that has been present since 2009. Does have a history of breast cancer status post total left mastectomy and right lumpectomy, status post chemotherapy and radiation. Follow up with oncology was indicated. During his admission, cardiology was consulted with Dr. Jovel. Echocardiogram was completed, which showed mild left ventricular hypertrophy, mild pulmonary hypertension, a moderately enlarged left atrium, a mildly enlarge right atrium, and a reserved EF of 60%. After the Cardizem drip was discontinued, the patient was transitioned to Carvedilol 25 mg bid for rate control and ant coagulated with Xarelto. Furosemide 40 mg daily was also prescribed. Patient was stabilized and eventually discharged. At this time, the patient is doing okay. Does have a rash on her chest and upper back. Pruritis is present. No swelling or drainage is present. Since discharge from the hospital on 01/02/2018, the patient is not experiencing any chest pain, shortness of breath, fevers, chills or leg swelling. No hemoptysis. No nausea, vomiting, or abdominal pain. No complaints of fatigue or weakness. She is states that she is able to walk long distances without any exertional fatigue and generally feels good. Weight is stable. She is weighing herself every morning with a dry weight. Will be following up with Dr. Jovel in the coming weeks. Also will be seeing a nurse practitioner with pulmonology. Does not have an oncologist, she previously saw Dr. Foy, who is not in the area anymore, would prefer not to see Dr. Hilliard. Past medical history, appointments, medications, allergies reviewed. Previous Medical History PAST MEDICAL HISTORY Diagnosis Date - Benign neoplasm of colon - COPD (chronic obstructive pulmonary disease) (HCC) - Neoplasm of unspecified nature of breast left 13yrs ago/right 5yrs LEFT AND RIGHT - Unspecified essential hypertension Previous Surgical History PAST SURGICAL HISTORY Procedure Laterality Date - BREAST BIOPSY W/ULTRASOUND GUIDANCE 06/10/14 U/S needle core upper inner right breast - COLONOS W/REM POLYP SNARE 03/04/09 Sigmoid polyp and diverticulosis - LIGATE FALLOPIAN TUBE 1987 Tubal ligation - MASTECTOMY 1993 Left - PAST SURGICAL HISTORY OF 2003 right lumpectomy - REM LESION NEC,HND,SCAL 1.1-2.0CM 03/13/06 Infected jacqueline cyst posterior neck - REMOVE PERM CANNULA/CATHETER 07/31/06 Remove right IJ port Family History FAMILY HISTORY Problem Relation Age of Onset - Coronary Artery Disease Mother - Cancer Sister uterine or ovarian (pt not sure) - Cancer Brother , brain cancer Patient Allergies ALLERGIES Allergen Reactions - Sulfa (Sulfonamide * Rash SOME SULFA DRUGS Specifically reacted to topical sulfa cream, pt stated. - Codeine Severe headaches - Combivent [Ipratrop* Swelling - Doxycycline Intolerance Stomach pains..it makes me double over, pt stated. - Dulera [Mometasone-* Intolerance tachycardia - Gabapentin Other: See Comments Loss of balance - Hctz [Amiloride-Hyd* blurry vision, fatigue - Iodine - Mercurochrome [Merb* Intolerance Wound becomes infected, inflamed AND hyper-reactionary, pt stated. - Merthiolate [Other] - Metoprolol Cough - Prednisone messed up stomach patient states is able to take in small divided doses - Qvar [Beclomethason* Other: See Comments Reports coughing, headache, dizziness, nausea, wheezing. - Tamiflu [Oseltamivi* Intolerance Reported abdominal pain, changes in breathing, and severe dry mouth - Tape [Other] Rash - Advil [Ibuprofen] Intolerance severe headache Current Medications Current Outpatient Prescriptions on File Prior to Visit: fluticasone-salmeterol (ADVAIR DISKUS) 250-50 mcg/dose dsdv Inhale 1 Puff as instructed twice daily. Rinse and gargle mouth after use with water. albuterol HFA (VENTOLIN HFA) 90 mcg/actuation inhaler Inhale 2 Puffs as instructed every 4 hours as needed for Wheezing/Shortness of Breath. emollient combination (PRUTECT) emul APPLY 1 APPLICATION TO AFFECTED AREA NEEDED B Complex Vitamins (B-50 COMPLEX) TbER Take 1 tablet by mouth once daily. Vitamin E 400 unit tab Take by mouth. MULTIVITAMIN ORAL Take by mouth. ACETAMINOPHEN 500 MG TAB Take one(1) tablet every four(4) hours prn. No current facility-administered medications on file prior to visit. 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 Reviewed relevant PMHx, PSHx, Social Hx, current medications and allergies. EXAM: BP 113/66 Pulse 96 Temp 36.2 ?C (97.1 ?F) (Tympanic) Wt 80.7 kg (178 lb) SpO2 96% BMI 33.36 kg/m2 General Appearance: Well appearing, alert, in no acute distress, well-hydrated, well nourished.. Skin: Non-blanchable rash is present on the upper back and upper chest wall with erythema present. Limbs are sparred. Head: Normocephalic, no masses, lesions, tenderness or abnormalities. Eyes: Anicteric sclera. Pupils are equally round and reactive to light. Extraocular movements are intact. . Ears: External ears normal, canals clear. Nose/Sinuses: Nares normal, septum midline, mucosa normal, no drainage or sinus tenderness. Oropharynx: Lips, mucosa, and tongue normal, teeth and gums normal, oropharynx normal. Neck: Supple, no adenopathy; thyroid symmetric, normal size, no bruits. Lungs: Lungs clear to auscultation. No wheezing, rhonchi, rales. Heart: Positive findings: controlled irregular rhythm without murmur or click. Abdomen: Normal abdominal exam, Abdomen soft, non-tender. Bowel sounds normal. No masses, organomegaly. Extremities: No deformities, very fine, trace edema is present bilaterally at sock line. Peripheral Pulses: Normal, Pulses: radial=4/4, dorsalis pedis=4/4, posterior tibial=4/4. Lymph Nodes: No cervical lymphadenopathy and No supraclavicular lymphadenopathy. Health Maintenance List TETANUS due on 01/19/2019 COLORECTAL CANCER SCREENING,SEE MODIFIER due on 03/04/2019 DIABETES SCREEN due on 05/31/2020 LIPID SCREEN due on 01/31/2022 BONE DENSITY Completed ADULT PREVNAR-13 Completed INFLUENZA Completed HEPATITIS C SCREENING Completed PNEUMOVAX AGE 65 AND OVER WITH 5YR LOOKBACK Completed Data reviewed [facility] ER note, discharge note, Chest x-ray, Echocardiogram, chest CT, labs results reviewed. ASSESSMENT/PLAN: 1. Persistent atrial fibrillation (HCC) - ICD9: 427.31, ICD10: I48.1 (primary diagnosis) - Controlled irregular rate, continue following with cardiology, continue with beta-donovan, anti-coag therapy. - RIVAROXABAN 20 MG TABLET 2. Mass of upper lobe of lung - ICD9: 786.6, ICD10: R91.8 - This spiculated mass is different in appearance than previous calcified area from radiation, Informed patient of this finding and need to continue to follow with pulmonology, oncology for possible PET scan. - Continue following with pulmonology; will get opinion from oncology as indicated in discharge summary. - CONSULT TO ONCOLOGY 3. Acute systolic CHF (congestive heart failure) (HCC) - ICD9: 428.21, 428.0, ICD10: I50.21 - Stable, continue following with cardiology. Continue with daily weights. Encouraged patient to reach out of the office, cardiology if greater than 3 pounds in 24 hours. - QUINAPRIL 20 MG TABLET 4. Essential hypertension, benign - ICD9: 401.1, ICD10: I10 - good control - Continue current medication(s) - Encouraged dietary sodium restriction/DASH diet - Recommended regular aerobic exercise. - Goal of BP <130/80 - QUINAPRIL 20 MG TABLET - COMP METABOLIC PANEL 5. Pulmonary emphysema, unspecified emphysema type (HCC) - ICD9: 492.8, ICD10: J43.9 - Stable. - Continue with current inhalers, following with pulmonology. 6. Mixed hyperlipidemia - ICD9: 272.2, ICD10: E78.2 - to be determined upon return of lab results - LIPID PANEL BASIC 7. Rash - ICD9: 782.1, ICD10: R21 - Unclear source. Does have new medications, Xarelto? She will reach out to cardiology to see if they want to switch to Eliquis. - TRIAMCINOLONE ACETONIDE 0.025 % TOPICAL CREAM - HYDROXYZINE PAMOATE 25 MG CAPSULE 8. Hospital discharge follow-up - ICD9: V67.59, ICD10: Z09 - See above. Follow up in 3 months with PCP team, sooner if problems arise, Get labs prior. Rashid Briscoe APRN.QUOTATION CHECKER CNOV Observed: 01/09/2018 Status: COMPLETED Source: [place] 9:00 AM [facility] REPOSITORY Office Visit (FAMPWS) CECILE VALLEJO ([id number]) 1945 F Date Time Provider Department 01/09/18 9:00 AM RASHID BRISCOE) [place] During your visit today, we recorded the following information about you: Temperature Pulse Blood pressure Weight 97.1 degrees 96/minute 113/66 80.7 kg Rashid rBiscoe APRN.CNP, APRN.CNP 01/09/2018 2:40 PM Addendum Chief Complaint Patient presents with: Hospital F/U HPI Cecile Vallejo is a 72 year old female who presents here today for Above Complaints.. Patient presents to the office for hospital follow up. Patient was originally in Dr. Mcdaniel's office on 12/30/2017. Had complaints of shortness of breath, tachycardia and bilateral leg swelling. Patient was found to be in atrial fibrillation with RVR. Sent to [facility] ER and was admitted. BNP was 223, chest x-ray indicated a left upper lobe opacity with irregularity. A CTA of the chest revealed no evidence of PE or dissection. It did reveal a speculated mass-like lesion in the left upper lobe measuring 2.9 X 1.9 cm. Pulmonology, Mark Campos DO, was consulted and will be following this finding outpatient. Patient does have prior finding of a calcified mass in the left anterior aspect of her chest wall that has been present since 2009. Does have a history of breast cancer status post total left mastectomy and right lumpectomy, status post chemotherapy and radiation. Follow up with oncology was indicated. During his admission, cardiology was consulted with Dr. Jovel. Echocardiogram was completed, which showed mild left ventricular hypertrophy, mild pulmonary hypertension, a moderately enlarged left atrium, a mildly enlarge right atrium, and a reserved EF of 60%. After the Cardizem drip was discontinued, the patient was transitioned to Carvedilol 25 mg bid for rate control and ant coagulated with Xarelto. Furosemide 40 mg daily was also prescribed. Patient was stabilized and eventually discharged. At this time, the patient is doing okay. Does have a rash on her chest and upper back. Pruritis is present. No swelling or drainage is present. Since discharge from the hospital on 01/02/2018, the patient is not experiencing any chest pain, shortness of breath, fevers, chills or leg swelling. No hemoptysis. No nausea, vomiting, or abdominal pain. No complaints of fatigue or weakness. She is states that she is able to walk long distances without any exertional fatigue and generally feels good. Weight is stable. She is weighing herself every morning with a dry weight. Will be following up with Dr. Jovel in the coming weeks. Also will be seeing a nurse practitioner with pulmonology. Does not have an oncologist, she previously saw Dr. Foy, who is not in the area anymore, would prefer not to see Dr. Hilliard. Past medical history, appointments, medications, allergies reviewed. Previous Medical History PAST MEDICAL HISTORY Diagnosis Date - Benign neoplasm of colon - COPD (chronic obstructive pulmonary disease) (HCC) - Neoplasm of unspecified nature of breast left 13yrs ago/right 5yrs LEFT AND RIGHT - Unspecified essential hypertension Previous Surgical History PAST SURGICAL HISTORY Procedure Laterality Date - BREAST BIOPSY W/ULTRASOUND GUIDANCE 06/10/14 U/S needle core upper inner right breast - COLONOS W/REM POLYP SNARE 03/04/09 Sigmoid polyp and diverticulosis - LIGATE FALLOPIAN TUBE 1987 Tubal ligation - MASTECTOMY 1993 Left - PAST SURGICAL HISTORY OF 2003 right lumpectomy - REM LESION NEC,HND,SCAL 1.1-2.0CM 03/13/06 Infected jacqueline cyst posterior neck - REMOVE PERM CANNULA/CATHETER 07/31/06 Remove right IJ port Family History FAMILY HISTORY Problem Relation Age of Onset - Coronary Artery Disease Mother - Cancer Sister uterine or ovarian (pt not sure) - Cancer Brother , brain cancer Patient Allergies ALLERGIES Allergen Reactions - Sulfa (Sulfonamide * Rash SOME SULFA DRUGS Specifically reacted to topical sulfa cream, pt stated. - Codeine Severe headaches - Combivent [Ipratrop* Swelling - Doxycycline Intolerance ANDquot;Stomach pains..it makes me double over,ANDquot; pt stated. - Dulera [Mometasone-* Intolerance tachycardia - Gabapentin Other: See Comments Loss of balance - Hctz [Amiloride-Hyd* blurry vision, fatigue - Iodine - Mercurochrome [Merb* Intolerance Wound becomes infected, inflamed ANDamp; ANDquot;hyper-reactionary,ANDquot; pt stated. - Merthiolate [Other] - Metoprolol Cough - Prednisone ANDquot;messed up stomachANDquot; patient states is able to take in small divided doses - Qvar [Beclomethason* Other: See Comments Reports coughing, headache, dizziness, nausea, wheezing. - Tamiflu [Oseltamivi* Intolerance Reported abdominal pain, changes in breathing, and severe dry mouth - Tape [Other] Rash - Advil [Ibuprofen] Intolerance severe headache Current Medications Current Outpatient Prescriptions on File Prior to Visit: fluticasone-salmeterol (ADVAIR DISKUS) 250-50 mcg/dose dsdv Inhale 1 Puff as instructed twice daily. Rinse and gargle mouth after use with water. albuterol HFA (VENTOLIN HFA) 90 mcg/actuation inhaler Inhale 2 Puffs as instructed every 4 hours as needed for Wheezing/Shortness of Breath. emollient combination (PRUTECT) emul APPLY 1 APPLICATION TO AFFECTED AREA NEEDED B Complex Vitamins (B-50 COMPLEX) TbER Take 1 tablet by mouth once daily. Vitamin E 400 unit tab Take by mouth. MULTIVITAMIN ORAL Take by mouth. ACETAMINOPHEN 500 MG TAB Take one(1) tablet every four(4) hours prn. No current facility-administered medications on file prior to visit. 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 Reviewed relevant PMHx, PSHx, Social Hx, current medications and allergies. EXAM: BP 113/66 Pulse 96 Temp 36.2 ?C (97.1 ?F) (Tympanic) Wt 80.7 kg (178 lb) SpO2 96% BMI 33.36 kg/m2 General Appearance: Well appearing, alert, in no acute distress, well-hydrated, well nourished.. Skin: Non-blanchable rash is present on the upper back and upper chest wall with erythema present. Limbs are sparred. Head: Normocephalic, no masses, lesions, tenderness or abnormalities. Eyes: Anicteric sclera. Pupils are equally round and reactive to light. Extraocular movements are intact. . Ears: External ears normal, canals clear. Nose/Sinuses: Nares normal, septum midline, mucosa normal, no drainage or sinus tenderness. Oropharynx: Lips, mucosa, and tongue normal, teeth and gums normal, oropharynx normal. Neck: Supple, no adenopathy; thyroid symmetric, normal size, no bruits. Lungs: Lungs clear to auscultation. No wheezing, rhonchi, rales. Heart: Positive findings: controlled irregular rhythm without murmur or click. Abdomen: Normal abdominal exam, Abdomen soft, non-tender. Bowel sounds normal. No masses, organomegaly. Extremities: No deformities, very fine, trace edema is present bilaterally at sock line. Peripheral Pulses: Normal, Pulses: radial=4/4, dorsalis pedis=4/4, posterior tibial=4/4. Lymph Nodes: No cervical lymphadenopathy and No supraclavicular lymphadenopathy. Health Maintenance List TETANUS due on 01/19/2019 COLORECTAL CANCER SCREENING,SEE MODIFIER due on 03/04/2019 DIABETES SCREEN due on 05/31/2020 LIPID SCREEN due on 01/31/2022 BONE DENSITY Completed ADULT PREVNAR-13 Completed INFLUENZA Completed HEPATITIS C SCREENING Completed PNEUMOVAX AGE 65 AND OVER WITH 5YR LOOKBACK Completed Data reviewed [facility] ER note, discharge note, Chest x-ray, Echocardiogram, chest CT, labs results reviewed. ASSESSMENT/PLAN: 1. Persistent atrial fibrillation (HCC) - ICD9: 427.31, ICD10: I48.1 (primary diagnosis) - Controlled irregular rate, continue following with cardiology, continue with beta-donovan, anti-coag therapy. - RIVAROXABAN 20 MG TABLET 2. Mass of upper lobe of lung - ICD9: 786.6, ICD10: R91.8 - This spiculated mass is different in appearance than previous calcified area from radiation, Informed patient of this finding and need to continue to follow with pulmonology, oncology for possible PET scan. - Continue following with pulmonology; will get opinion from oncology as indicated in discharge summary. - CONSULT TO ONCOLOGY 3. Acute systolic CHF (congestive heart failure) (HCC) - ICD9: 428.21, 428.0, ICD10: I50.21 - Stable, continue following with cardiology. Continue with daily weights. Encouraged patient to reach out of the office, cardiology if greater than 3 pounds in 24 hours. - QUINAPRIL 20 MG TABLET 4. Essential hypertension, benign - ICD9: 401.1, ICD10: I10 - good control - Continue current medication(s) - Encouraged dietary sodium restriction/DASH diet - Recommended regular aerobic exercise. - Goal of BP ANDlt;130/80 - QUINAPRIL 20 MG TABLET - COMP METABOLIC PANEL 5. Pulmonary emphysema, unspecified emphysema type (HCC) - ICD9: 492.8, ICD10: J43.9 - Stable. - Continue with current inhalers, following with pulmonology. 6. Mixed hyperlipidemia - ICD9: 272.2, ICD10: E78.2 - to be determined upon return of lab results - LIPID PANEL BASIC 7. Rash - ICD9: 782.1, ICD10: R21 - Unclear source. Does have new medications, Xarelto? She will reach out to cardiology to see if they want to switch to Eliquis. - TRIAMCINOLONE ACETONIDE 0.025 % TOPICAL CREAM - HYDROXYZINE PAMOATE 25 MG CAPSULE 8. Hospital discharge follow-up - ICD9: V67.59, ICD10: Z09 - See above. Follow up in 3 months with PCP team, sooner if problems arise, Get labs prior. Rashid Briscoe APRN.QUOTATION CHECKER Referring Provider: [facility] [[id number]] Allergies As of Date: 01/09/2018 Noted Allergy Reaction SULFA (SULFONAMIDE ANTIBIOTICS) 08/08/2005 2 - Rash Comments: SOME SULFA DRUGS Specifically reacted to topical sulfa cream, pt stated. CODEINE 03/05/2008 Comments: Severe headaches COMBIVENT (IPRATROPIUM-ALBUTEROL) 08/25/2012 7 - Swelling DOXYCYCLINE 08/08/2005 5 - Intolerance Comments: Stomach pains..it makes me double over, pt stated. DULERA (MOMETASONE-FORMOTEROL) 09/03/2012 5 - Intolerance Comments: tachycardia GABAPENTIN 06/16/2014 14 - Other: See Comments Comments: Loss of balance HCTZ (AMILORIDE-HYDROCHLOROTHIAZI*01/19/2009 Comments: blurry vision, fatigue IODINE 08/08/2005 MERCUROCHROME (MERBROMIN) 08/08/2005 5 - Intolerance Comments: Wound becomes infected, inflamed AND hyper- reactionary, pt stated. MERTHIOLATE [Other] 08/08/2005 METOPROLOL 07/17/2013 3 - Cough PREDNISONE 01/19/2009 Comments: messed up stomach patient states is able to take in small divided doses QVAR (BECLOMETHASONE) 03/08/2016 14 - Other: See Comments Comments: Reports coughing, headache, dizziness, nausea, wheezing. TAMIFLU (OSELTAMIVIR) 12/30/2017 5 - Intolerance Comments: Reported abdominal pain, changes in breathing, and severe dry mouth tape [Other] 03/28/2006 2 - Rash ADVIL (IBUPROFEN) 08/08/2005 5 - Intolerance Comments: severe headache Date Reviewed: 01/09/2018 Reviewed by: Ann Brown Diabetes Specialist - Fully Assessed Reason for Visit: Hospital F/U [57] Primary Visit Diagnosis:Persistent atrial fibrillation (HCC) [I48.1] Other Visit Diagnoses:Mass of upper lobe of lung [R91.8] Acute systolic CHF (congestive heart failure) (HCC) [I50.21] Essential hypertension, benign [I10] Pulmonary emphysema, unspecified emphysema type (HCC) [J43.9] Mixed hyperlipidemia [E78.2] Rash [R21] Hospital discharge follow-up [Z09] Order(s):rivaroxaban (XARELTO) 20 mg tabletTake 1 tablet by mouth daily with dinner.Disp: Rfl: quinapril (ACCUPRIL) 20 mg tabletTake 1 tablet by mouth twice daily.Disp: 180 tabletRfl: 4 triamcinolone (KENALOG) 0.025 % creamApply 1 application to affected area twice daily.Disp: 80 gRfl: 1 CONSULT TO ONCOLOGY [9087] Order #: [id number]: 1 hydrOXYzine pamoate (VISTARIL) 25 mg capsuleTake 1 capsule by mouth three times daily as needed.Disp: 30 capsuleRfl: 0 COMP METABOLIC PANEL [SQCMP] Order #: [id number] FUTURE LIPID PANEL BASIC [SQLIPB] Order #: [id number] FUTURE Prescriptions as of 01/09/2018 Sig: FLUTICASONE 250 MCG-SALMETERO* Inhale 1 Puff as instructed t* ALBUTEROL SULFATE HFA 90 MCG/* Inhale 2 Puffs as instructed * EMOLLIENT COMBINATION NO.10 T* APPLY 1 APPLICATION TO AFFECT* VITAMIN B COMPLEX ER TABLET,E* Take 1 tablet by mouth once d* VITAMIN E 400 UNIT TABLET Take by mouth. MULTIVITAMIN ORAL Take by mouth. ACETAMINOPHEN 500 MG TABLET Take one(1) tablet every four* CARVEDILOL 25 MG TABLET Take 25 mg by mouth twice lynda* FUROSEMIDE 40 MG TABLET Take 40 mg by mouth once yoli* RIVAROXABAN 20 MG TABLET Take 1 tablet by mouth daily * QUINAPRIL 20 MG TABLET Take 1 tablet by mouth twice * TRIAMCINOLONE ACETONIDE 0.025* Apply 1 application to affect* HYDROXYZINE PAMOATE 25 MG CAP* Take 1 capsule by mouth three* Medication notes this encounter QUINAPRIL 20 MG TABLET >> Ann Brown Cma 01/09/2018 8:52 AM Heart Doctor CARVEDILOL 25 MG TABLET >> Rashid Briscoe APRN.CNP, [facility]* 01/09/2018 8:49 AM >> RASHID BRISCOE CNP [place] Jan 09, 2018 8:49 AM Received from: External Pharmacy FUROSEMIDE 40 MG TABLET >> Rashid Briscoe APRN.CNP, [facility]* 01/09/2018 8:49 AM >> RASHID BRISCOE CNP [place] Jan 09, 2018 8:49 AM Received from: External Pharmacy Problem List As Of Date 01/09/2018 Noted Resolved Neoplasm of Unspecified Nature of Breast [D49.3] Priority: B More... Essential Hypertension, Benign [I10] INVALID FOR* Priority: A Osteoarth NOS-Unspec [M19.90] INVALID FOR* Malig Yayo Lymph-Axilla/Arm [C77.3] INVALID FOR*07/10/2010 Sebaceous Cyst [L72.3] INVALID FOR*07/10/2010 Unspecified Pleural Effusion [J90] INVALID FOR*07/10/2010 SCREEN (SEE ALSO ADMISSION) CANCER - COLON [Z*INVALID FOR*07/10/2010 Emphysema of lung (HCC) [J43.9] INVALID FOR* Priority: A Tobacco Use Disorder [F17.200] INVALID FOR* POLYP COLON [D12.6] INVALID FOR* Priority: B More... DIVERTICULOSIS [K57.30] INVALID FOR*02/01/2017 Priority: B Routine general medical examination at a health*INVALID FOR*08/01/2012 Class: Chronic More... Routine gynecological examination [Z01.419] INVALID FOR*08/01/2012 Class: Chronic More... RIB LESION, UNCERTAIN BEHAVIOR [M99.9] INVALID FOR*08/14/2016 Priority: A More... Mixed Hyperlipidemia [E78.2] INVALID FOR* Priority: A Back pain [M54.9] INVALID FOR* Priority: B Personal history of breast cancer [Z85.3] INVALID FOR* COPD (chronic obstructive pulmonary disease) (H* 08/14/2016 Lumbar radiculopathy [M54.16] INVALID FOR* DDD (degenerative disc disease), lumbar [M51.36]INVALID FOR* Lumbar scoliosis [M41.9] INVALID FOR* Persistent atrial fibrillation (HCC) [I48.1] INVALID FOR* More... Mass of upper lobe of lung [R91.8] INVALID FOR* More... Acute systolic CHF (congestive heart failure) (*INVALID FOR* More... Prescriptions ordered this encounter Disp Refills Start End RIVAROXABAN 20 MG TABLET 01/09/2018 Class: Med Update Route: ORAL Sig: Take 1 tablet by mouth daily with dinner. QUINAPRIL 20 MG TABLET 180 * 4 01/09/2018 Class: Med Update Route: ORAL Sig: Take 1 tablet by mouth twice daily. TRIAMCINOLONE ACETONIDE 0.025 % TOPI* 80 g 1 01/09/2018 Route: TOPICAL Sig: Apply 1 application to affected area twice daily. HYDROXYZINE PAMOATE 25 MG CAPSULE 30 c* 0 01/09/2018 Route: ORAL Sig: Take 1 capsule by mouth three times daily as needed. Medications Discontinued During This Encounter amLODIPine (NORVASC) 5 mg tablet 90 t* 1 11/18/2017 01/09/2018 Route: ORAL Sig: Take 1 tablet by mouth once daily. Patient taking differently: Take 2.5 mg by mouth once daily. Disc: Discontinued by another Health Care Provider quinapril (ACCUPRIL) 20 mg tablet 180 * 4 11/18/2017 01/09/2018 Route: ORAL Sig: Take 1 tablet by mouth twice daily. Disc: Discontinued by another Health Care Provider doxazosin (CARDURA) 1 mg tablet 45 t* 3 11/18/2017 01/09/2018 Route: ORAL Sig: Take 0.5 tablets by mouth once daily. Disc: Discontinued by another Health Care Provider Disposition: Return in about 3 months (around 04/11/2018) for Routine follow up . Follow-up and Disposition History Recorded Encounter Status:Closed by RASHID BRISCOE CNP on 01/09/18 12 LEAD ELECTROCARDIOGRAM Observed: 01/03/2018 Status: F Source: [place] 1:54 PM [facility] Cardiovascular Services [address] [place] [address] 12 Lead EKG 12/31/17 0531 MR#: [id number] Acct: [id number] Name: CECILE VALLEJO Rep #: [id number] : 1945 72 From: Rusty Jovel MD Attending Dr: Rohan Yeh MD Status: DIS IN Ordering Dr: Leno Croft MD Date: 12/31/17 Location: [facility] Sex: F C Admitted: 12/30/17 Test Reason : AM EKG Blood Pressure : / mmHG Vent. Rate : 080 BPM Atrial Rate : 357 BPM P-R Int : 000 ms QRS Dur : 084 ms QT Int : 406 ms P-R-T Axes : 000 -15 017 degrees QTc Int : 468 ms Atrial fibrillation Anterior infarct , age undetermined Abnormal ECG When compared with ECG of 30-DEC-2017 09:55, MANUAL COMPARISON REQUIRED, DATA IS UNCONFIRMED Confirmed by RUSTY JOVEL MD ([id number]), content editor NORMA SALEH ([id number]) on 01/03/2018 1:54:17 PM Referred By: APARNA Confirmed By:RUSTY JOVEL MD 01/03/18 1354 Date Rusty Jovel MD CC: Leno Croft; Juan Mcdaniel MD Signed DISCHARGE SUMMARY Observed: 01/02/2018 Status: F Source: [place] 12:25 PM [facility] Medical Records Department [address] [place] [address] Discharge Summary 01/02/18 1049 MR#: [id number] Acct: [id number] Name: CECILE VALLEJO Rep #: [id number] : 1945 72 From: Teodora CARVAJALC PCP: Juan Mcdaniel MD Status: DIS IN Y Location: [place] [address] <Teodora Parsons - Last Filed: 01/02/18 11:09> Discharge Date and Diagnosis Date of Admission: 12/30/17 Date of Discharge: 01/02/18 - Primary Discharge Diagnosis Active and Suspected Problems 1. Acute diastolic CHF 2. New onset A. fib with RVR 3. Suspected COPD 4. Left-sided lung mass - Secondary Discharge Diagnosis Chronic Problems Suspected chronic obstructive pulmonary disease based on initial evaluation (Chronic) History of breast cancer (Chronic) Hypertension (Chronic) Tobacco abuse Hospital Course and Treatment Imaging Results: Diagnostic Data Chest X-Ray 12/30/17 10:03 IMPRESSION: Right lung is clear. Left upper lobe airspace disease with possible nodule. Underlying neoplastic process cannot be excluded with post obstructive pneumonia. Recommend CT chest to further evaluate Electronically Signed: Vishal Ruiz DO at 10:45 EDT Tel , Service support , Chest CTA 12/30/17 11:09 IMPRESSION: 1. Negative for pulmonary emphysema or thoracic aortic dissection 2. As compared to the exam from 2009, there is a stable calcified mass involving the left anterior third rib and chest wall however, there has been development of a spiculated masslike lesion in the left upper lobe measuring 2.9 x 1.9 cm. Recurrent or metastatic disease cannot be excluded. However, this may be related to post radiation changes. PET/CT versus tissue sampling may be needed to further evaluate 3. Subtle right lower lobe infiltrate could represent infection 4. Patient is status post left mastectomy with left axillary lymph node dissection. Postradiation changes noted of the right breast with skin thickening. Electronically Signed: Vishal Ruiz DO at 14:33 EDT Tel , Service support , Dr. Campos-Pulmonary Dr. Jovel- Cardiology Operations: None Procedures: 2-D Echocardiogram Summary of Care Provided: The patient is a 72 year old F admitted 12/30/2017 due to shortness of breath. She has a past medical history of breast cancer status post total l left mastectomy, right lumpectomy, chemotherapy/radiation, hypertension, suspected COPD. Patient was found to have new onset atrial fibrillation with RVR and acute diastolic CHF. Cardiology consulted. Echocardiogram showed an estimated ejection fraction of 60%, mild mitral valve insufficiency, trivial tricuspid valve insufficiency, RVSP estimated to be 43 mmHg, mild pulmonary hypertension. Troponin negative 4. Patient was started on anticoagulation with Xarelto. She will continue carvedilol 25 mg twice daily, Lasix 40 mg daily, quinapril 20 mg twice daily. Heart rate currently well controlled, she remains in atrial fibrillation. She will follow-up as outpatient with Dr. Jovel in 1-2 weeks. Pulmonary medicine was consulted due to abnormal chest imaging. CTA showed soft tissue mass versus scarring in the left upper lobe. Patient does have a history of breast cancer. She previously followed with [facility] oncology. Patient has been on Advair and albuterol at home but denies previous diagnosis of COPD or asthma. She has a long time tobacco user. COPD suspected. Patient will need further follow-up with pulmonary medicine as outpatient in 1-2 weeks for pulmonary function testing for COPD and further monitoring of left upper lobe mass. She can continue albuterol inhaler as needed as well as Advair twice daily. Encourage smoking cessation. Recommend additional follow-up with oncology in 1-[address] findings as noted above. General: Alert, Oriented x3, Cooperative HEENT: Atraumatic, PERRLA, EOMI, Normocephalic Neck: Supple, No JVD, Negative Carotid Bruits Lungs: Clear to auscultation, diminished Cardiovascular: Atrial fibrillation, rate controlled Abdomen: Bowel Sounds Present, Soft, Non Tender Extremities: No edema, Capillary Refill Less than 3 Seconds Skin: No rashes, No breakdown Musculoskeletal: No Tenderness to Palpation of Joints or Extremities Neurological: Cranial nerves II-XII grossly intact Psych/Mental Status: Normal Affect, Appropriate Patient seen and examined prior to discharge. Physical assessment as above. Heart rate has remained stable. Patient denies shortness of breath, dizziness, chest pain. She is stable for discharge home with recommendations as noted above. This patient was seen by RAFAEL Le under the supervision of Dr. Yeh. Discharge Diet: Low fat/ Low Cholesterol Discharge Activity: Return to Normal Activity Call your doctor if you observe: Shortness of breath, Dizziness, Fainting spells, Chest pain, Increased palpitations (irregular heartbeat) Home Medications: Medications to take at Discharge Fluticasone/Salmeterol [Advair 250/50 Mcg Diskus] 1 puff INHALATION BID 04/11/15 Quinapril HCl [Accupril] 20 mg PO BID 04/11/15 Acetaminophen [Tylenol] 325 mg PO Q4H PRN PRN 10/16/16 Albuterol Inhaler [Ventolin Hfa] 1 - 2 puff INHALATION Q4H PRN PRN 10/16/16 Multivitamins,Therapeutic [Multivitamin] 1 tablet PO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 effective 2017. LAB L501.1000 7-18 mg/dL Normal BUN 16 LAB L501.1100 0.55-1.02 mg/dL Normal CREAT,SERUM 0.66 Result Comment: The validity of the calculated GFR AND GFRAA in patients over 70 years has not been determined. Clinical correlation is essential. LAB L501.1110 >60 mL/min Normal EST GFR 94 Result Comment: Non- GFR Calc LAB L501.1115 >60 mL/min Normal EST GFR - AA 114 Result Comment: GFR Calc LAB L501.1255 ml/min Normal Estimated CRCL 44.56 LAB L501.1300 10-20 RATIO High BUN/CRE 24.3 LAB L501.2200 8.5-10 mg/dL Normal .1 CA 9.2 LAB L501.5300 136-14 mmol/L Normal 5 NA 136 LAB L501.5600 3.5-5. mmol/L Normal 1 K 3.9 LAB L501.5900 98-107 mmol/L Normal CL 100 LAB L501.6100 21.0-3 mmol/L Normal 2.0 CO2 30.0 LAB L501.6200 5-15 Normal GAP 6 Performed By: #### L500.2500 #### [facility] [address] [place], [address] VENOUS DUPLEX LOWER Observed: 12/31/2017 Status: F Source: ARVIN EXTREMITY 6:45 PM [facility] REPOSITORY [facility] Cardiovascular Services [address] [place] [address] Venous Duplex US, Unilateral 12/31/17 0711 MR#: [id number] Acct: [id number] Name: CECILE VALLEJO Rep #: [id number] : 1945 72 From: Vignesh Escalera MD Attending Dr: Rohan Yeh MD Status: ADM IN Ordering Dr: Leno Croft MD Date: 12/30/17 Location: [facility] Sex: F C Admitted: 12/30/17 Reason For Study: swelling RIGHT GSV is normal. CFV is compressible, spontaneous, phasic, competent and demonstrates normal augmentation. FV is compressible, spontaneous, phasic, competent and demonstrates normal augmentation. POP V is compressible, spontaneous, phasic, competent and demonstrates normal augmentation. T/P Trunk is compressible. PTV is compressible. RT PerV is compressible. Procedure Exam performed portable in patient room. The exam was diagnostic. A preliminary report was called and/or faxed to the pt's RN. Interpretation Summary There is no evidence of right lower extremity deep vein thrombosis. Right greater saphenous vein appears patent and compressible segmentally. Ordering Physician: Leno Croft Performed By: Edward Manriquez RVT 12/31/175 Date Vignesh Escalera MD CC: Leno Croft; Juan Mcdaniel MD Date Dictated: 12/31/17 0711 Date Transcribed: 12/31/171844 [employer] Ebs Consultant: Signed CONSULTATION Observed: 12/31/2017 Status: F Source: ARV[place] 2:57 PM [facility] REPOSITORY [facility] Medical Records Department [address] [address] Consultation 12/30/17 1900 MR#: [id number] Acct: [id number] Name: CECILE VALLEJO Rep #: [id number] : 1945 72 From: Rusty Jovel MD PCP: Juan Mcdaniel MD Status: ADM IN Y Location: [place] [address] Reason for Consult Date of Consultation: 12/30/17 Reason for Consultation: Shortness of breath and irregular heartbeat History of Present Illness: The patient is a 72 year old F with past medical history as mentioned above presented to the medicine because of shortness of breath. Her symptoms started around 2 weeks ago with progressive shortness of breath, initially was with moderate exertion that progressed to become even with minimal exertion and sometimes at rest, aggravated by activity, minimally relieved with rest associated with leg swelling more on the right leg as well as orthopnea. She denied any chest pain or palpitations or paroxysmal nocturnal dyspnea. She has not had any dizziness or diaphoresis no near syncope or syncope. Today, she went to her PCPs office for bilateral leg swelling and shortness of breath, EKG performed and she was found to be in A. fib with RVR and she was sent to the emergency department for evaluation. In the emergency room, she was in A. fib with RVR, heart rate has been in the 130s, blood pressure stable. She was dyspneic and tachypneic, pulse ox was 97% on room air. She was afebrile. Her routine blood work was unremarkable. Troponin was negative. BNP was 223. Her EKG revealed A. fib with RVR, rate has been in 130s, no acute ischemic changes. Chest x-ray revealed left upper lobe opacity, irregular. CTA chest revealed no evidence of PE or dissection, revealed spiculated masslike lesion in the left upper lobe which could be due to lung scarring versus possible metastasis. Cardiology was consulted to evaluate her and assist in management. Past Medical History Allergies/Adverse Reactions: Allergies albuterol sulfate [From Combivent] Allergy (Verified 12/30/17 09:50) Swelling ipratropium bromide [From Combivent] Allergy (Verified 12/30/17 09:50) Swelling metoprolol Allergy (Verified 12/30/17 09:50) Laryngospasms Sulfa (Sulfonamide Antibiotics) Allergy (Verified 12/30/17 09:50) Rash beclomethasone [From Qvar] Adverse Reaction (Verified 12/30/17 09:50) COUGHING benzalkonium chloride [From Merthiolate (benzalkonium)] Adverse Reaction (Verified 12/30/17 09:50) Other codeine Adverse Reaction (Verified 12/30/17 16:34) doesn't remember doxycycline Adverse Reaction (Verified 12/30/17 09:50) Abd cramps/diarrhea fluticasone [From Advair Diskus] Adverse Reaction (Verified 12/30/17 16:36) headache formoterol fumarate [From Dulera] Adverse Reaction (Verified 12/30/17 09:50) Other hydrochlorothiazide Adverse Reaction (Verified 12/30/17 09:50) Other ibuprofen [From Advil] Adverse Reaction (Verified 12/30/17 09:50) Other iodine Adverse Reaction (Verified 12/30/17 09:50) Itching merbromin Adverse Reaction (Verified 12/30/17 09:50) Other mometasone furoate [From Dulera] Adverse Reaction (Verified 12/30/17 09:50) Other oseltamivir [From Tamiflu] Adverse Reaction (Verified 12/30/17 16:32) uterine pain prednisone Adverse Reaction (Verified 12/30/17 09:50) Abd cramps/diarrhea PLASTIC TAPE Allergy (Uncoded 12/30/17 09:50) Rash Home Medications: Ambulatory Orders Medication Instructions Recorded Amlodipine [Norvasc] 5 mg PO DAILY 04/11/15 Doxazosin Mesylate [Cardura] 0.5 mg PO QHS 04/11/15 Fluticasone/Salmeterol [Advair 1 puff INHALATION BID 04/11/15 Past Medical History (Chronic Problems): Chronic Problems History of breast cancer (Chronic) COPD (chronic obstructive pulmonary disease) (Chronic) Hypertension (Chronic) Surgical History: mastectomy Psychiatric History: No pertinent psych hx BUSINESS CONSULTANT History: No pertinent BUSINESS CONSULTANT 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 Denies: Fever, Night Sweats Cardiovascular: Reports: Shortness of Breath, Shortness of Breath at Rest, Shortness of Breath with Exertion, Peripheral Edema. Denies: Chest Discomfort, Orthopnea, PND, Palpitations, Lightheadedness, Dizziness, Near Syncope, Syncope Respiratory: Denies: Cough, Sputum Production, Hemoptysis Gastrointestinal: Denies: Hematemesis, Hematochezia, Melena Genitourinary: Denies: Dysuria, Hematuria Skin: Denies: Rash Psychiatric: Reports: Anxiety Subjectve: Elderly lady in no apparent distress. Objective: Vital Signs Temp Pulse Resp BP Pulse Ox 97.9 F 110 H 20 H 113/79 94 12/30/17 16:53 12/30/17 18:00 12/30/17 18:00 12/30/17 18:00 12/30/17 18:00 Oxygen Flow Rate (L/min) 2 Oxygen Delivery Method Nasal Cannula Weight: 180 lb 1.6 oz Body Mass Index (BMI) 30.9 Intake and Output for Last 24 Hours Intake Total 309.2 / 309.2 Output Total 1100 / 1100 Balance -790.8 / -790.8 General: Awake, Alert, Oriented x 3 HEENT: PERRL, EOMI, Sclera Non Icteric Neck: Supple, Good ROM, No Lymph Node Enlargement Lungs: Diminished Cortes Bases Cardiovascular: Irregular Rhythm, Normal S1, Normal S2, No Murmurs, No Rubs, No Gallops Vascular: No Carotid Bruits, Normal Femoral Pulses, Normal Radial Pulses, Normal Dorsalis Pedal Pulse, Normal Posterior Tibial Pulses Abdomen: Bowel Sounds Present, Soft, Non Tender, No HSM, No Organomegaly Extremities: No Cyanosis, No Clubbing, No edema Neurological: No Focal Motor or Sensory Deficit Psych/Mental Status: Appropriate 12/30/17 16:48: PT 14.0, INR 1.1 12/30/17 16:48: Magnesium 2.0 12/30/17 16:48: Troponin I < 0.02 Rhythm: EKG: Atrial fibrillation with a ventricular response rate of 131 bpm Assessment/Plan #1 Newly diagnosed A. fib with RVR: She has been started on intravenous Cardizem which will be continued for rate control. An echocardiogram should be performed to assess her left ventricular function.. Her [id number] is 4 and she is at moderate risk of stroke and she is a candidate for anticoagulation. My recommendation at this time would be to start her on a factor X inhibitor starting in a.m. #2 Congestive heart failure -acute systolic : This is based on symptoms of shortness of breath, leg edema and orthopnea as well as elevated BNP and chest x-ray findings. Plan: Diuresis with IV Lasix, 2D echocardiogram, further dissection to less than 1500 cc daily, continue Accupril. , She apparently has not tolerated beta-blockers in the past but we may be able to start her on carvedilol after she is off the Cardizem. I would need to exclude chemotherapy or radiation induced cardiomyopathy as an etiology of the above. #3 Hypertension: Blood pressure stable, continue Norvasc and Accupril. Will suggest aggressive management of the above. Thank you for allowing me to participate in the care of your patient. Please don't hesitate to call if any issues arise 12/31/17 7521 <Electronically signed by Rusty Jovel MD> Date Rusty Jovel MD Cosigner Signature (if applicable): Date CC: Rusty Jovel MD; Mark Campos D.O.; Juan Mcdaniel MD Signed ECHOCARDIOGRAM COMPLETE Observed: 12/31/2017 Status: F Source: SATINDER 10:22 AM [facility] REPOSITORY [facility] Cardiovascular Services [address] [place] [address] Echo Complete 12/31/17 0805 MR#: [id number] Acct: [id number] Name: CECILE VALLEJO Rep #: [id number] : 1945 72 From: Mike Freedman MD Attending Dr: Rohan Yeh MD Status: ADM IN Ordering Dr: Leno Croft MD Date: 12/30/17 Location: [facility] Sex: F C Admitted: 12/30/17 Reason For Study: AFIB/FLUTTER Procedure This was a 2D Doppler, Color Flow transthoracic echocardiogram. The study was technically difficult. Due to arrhythmia and left breast mastectomy. Exam performed portable in patient room. Left Ventricle Mild concentric left ventricular hypertrophy. The estimated ejection fraction is 60 %. No regional wall motion abnormalities noted. Right Ventricle Normal size and thickness. Normal systolic function. Atria The left atrium is moderately enlarged. The right atrium is mildly enlarged. Normal atrial septum. Mitral Valve Mild diffuse mitral valve thickening. Severe mitral annular calcification extending into the posterior leaflet. Mild (1+) mitral valve insufficiency. Tricuspid Valve Normal tricuspid valve. Trivial tricuspid valve insufficiency. Right ventricular systolic pressure estimated to be 43 mmHg. Mild pulmonary hypertension. Aortic Valve Trisinus/trileaflet aortic valve. Mild diffuse aortic valve thickening. Pulmonic Valve Normal pulmonic valve. Great Vessels Normal aortic root. Normal arch. Normal inferior vena cava. Inferior vena cava collapse with sniff. Pericardium/Pleural Trivial pericardial effusion. There are no echocardiographic indications of cardiac tamponade. MMode/2D Measurements AND Calculations LVIDd: 3.9 cm IVSd: 1.3 cm Ao root diam: 2.4 cm LVIDs: 3.1 cm LVPWd: 1.2 cm LA dimension: 4.4 cm RVDd: 2.8 cm FS: 21.5 % LAV(MOD-bp): 85.0 ml LA A4 area: 24.6 cm2 RA A4 area: 21.8 cm2 LAV(MOD-bp) Indexed: 44.9 ml/m2 LAV(MOD-sp2): 84.2 ml LAV(MOD-sp4): 76.1 ml Doppler Measurements AND Calculations MV E max cas: 123.9 cm/sec Ao V2 max: 155.1 cm/sec LV V1 max: 88.9 cm/sec Ao max P.7 mmHg LV V1 max P.2 mmHg PA V2 max: 94.2 cm/sec TR max cas: 256.5 cm/sec TR max P.3 mmHg Interpretation Summary Mild concentric left ventricular hypertrophy. The estimated ejection fraction is 60 %. The left atrium is moderately enlarged. The right atrium is mildly enlarged. Mild (1+) mitral valve insufficiency. Trivial tricuspid valve insufficiency. Right ventricular systolic pressure estimated to be 43 mmHg. Mild pulmonary hypertension. Trivial pericardial effusion. There are no echocardiographic indications of cardiac tamponade. PT appears to be in atrial fibrillation. There is no comparison study available. The study was technically difficult. Ordering Physician: Leno Croft Referring Physician: Juan Mcdaniel Performed By: Arlette Fulton, JESUS, RVT 03/13/18 1021 Date Mike Freedman MD CC: Leno Croft; Juan Mcdaniel MD Date Dictated: 12/31/17 0805 Date Transcribed: 12/31/17 1022 Oracle Ebs Consultant: Signed TROPONIN-I Collected: 12/31/2017 Status: F Source: [place] 2:56 AM [facility] REPOSITORY Order Comment: 'TROP' Serial specimen #1, #2, #3, or #4: 4 TYPE CODE TESTS RESULT OUT OF RANGE REFERENCE UNITS LAB L501.4010 <0.06 ng/mL Normal < 0.02 TROPONIN-I Result Comment: TROPONIN-I EXPECTED VALUES <0.05 NEGATIVE 0.06 - 0.59 AT RISK OF ID > OR = 0.60 SUGGEST ID Performed By: #### L501.4010 #### [facility] [place], [address] CBC W/DIFF, AUTOMATED Collected: 12/31/2017 Status: F Source: [place] 2:56 AM [facility] REPOSITORY TYPE CODE TESTS RESULT OUT OF RANGE REFERENCE UNITS LAB L100.1000 4.4-11.0 K/mm3 Normal WBC 6.6 LAB L100.1200 4.2-5.4 M/mm3 Normal RBC 4.50 LAB L100.1300 12.0-15.0 g/dl Normal HGB 14.4 LAB L100.1400 37-47 % Normal HCT 44.5 LAB L100.1500 81-99 fL Normal MCV 98.9 LAB L100.1600 27.0-32.0 pg Normal MCH 32.0 LAB L100.1700 32-36 g/gl Normal MCHC 32.4 LAB L100.1810 11.6-14.6 % Normal RDW CV 12.7 LAB L100.1820 35.1-43.9 fl High RDW SD 45.5 LAB L100.1900 150-450 K/mm3 Normal PLT 235 LAB L100.2000 6.2-12.0 fl Normal MPV 9.3 LAB L100.2100 47-70 % High NEUT% 85.0 LAB L100.2200 19-41 % Low LY% 12.3 LAB L100.2300 0-10 % Normal MONO% 2.3 LAB L100.2400 0-5 % Normal EO% 0.0 LAB L100.2500 0-1 % Normal BASO% 0.2 LAB L100.2550 0.0-0.9 % Normal IM GRAN % 0.200 Result Comment: IG% - Immature Granulocytes (promyelocytes, myelocytes and metamyelocytes) > 1% indicates that a LEFT SHIFT is Present. LAB L100.2620 2.0-7.7 X10 3/uL Normal Absolute Neut 5.6 LAB L100.2720 0.83-4.51 X10 3/ul Low Absolute Lymph 0.81 Performed By: #### L100.0100 #### [facility] [address] [place], [address] BASIC METABOLIC Collected: 12/31/2017 Status: F Source: [place]VIN PROFILE ([facility]) 2:56 AM [facility] REPOSITORY TYPE CODE TESTS RESULT OUT OF RANGE REFERENCE UNITS LAB L501.0100 74-106 mg/dL High GLU 138 Result Comment: Fasting Glucose result greater than or equal to 126 mg/dL suggests DIABETES MELLITUS per A.D.A. criteria. Please note revised GLUCOSE reference range effective 2017. LAB L501.1000 7-18 mg/dL Normal BUN 9 LAB L501.1100 0.55-1.02 mg/dL Normal CREAT,SERUM 0.60 Result Comment: The validity of the calculated GFR AND GFRAA in patients over 70 years has not been determined. Clinical correlation is essential. LAB L501.1110 >60 mL/min Normal EST GFR 104 Result Comment: Non- GFR Calc LAB L501.1115 >60 mL/min Normal EST GFR - AA 126 Result Comment: GFR Calc LAB L501.1255 ml/min Normal Estimated CRCL 44.56 LAB L501.1300 10-20 RATIO Normal BUN/CRE 15.0 LAB L501.2200 8.5-10 mg/dL Normal .1 CA 8.9 LAB L501.5300 136-14 mmol/L Normal 5 NA 138 LAB L501.5600 3.5-5. mmol/L Normal 1 K 3.6 LAB L501.5900 98-107 mmol/L Normal CL 102 LAB L501.6100 21.0-3 mmol/L Normal 2.0 CO2 28.0 LAB L501.6200 5-15 Normal GAP 8 Performed By: #### L500.2500 #### [facility] [address] [place], [address] PROTHROMBIN TIME W/INR Collected: 12/30/2017 Status: F Source: [place] 4:48 PM [facility] REPOSITORY TYPE CODE TESTS RESULT OUT OF RANGE REFERENCE UNITS LAB L300.4150 11.7-14.9 SECONDS Normal PROTIME 14.0 LAB L300.4200 Normal INR 1.1 Performed By: #### L300.3900 #### [facility] [address] [place], [address] TROPONIN-I Collected: 12/30/2017 Status: F Source: [place] 4:48 PM [facility] REPOSITORY Order Comment: 'TROP' Serial specimen #1, #2, #3, or #4: 2 TYPE CODE TESTS RESULT OUT OF RANGE REFERENCE UNITS LAB L501.4010 <0.06 ng/mL Normal < 0.02 TROPONIN-I Result Comment: TROPONIN-I EXPECTED VALUES <0.05 NEGATIVE 0.06 - 0.59 AT RISK OF ID > OR = 0.60 SUGGEST ID Performed By: #### L501.4010 #### [facility] [address] [place], [address] MAGNESIUM Collected: 12/30/2017 Status: F Source: [place] 4:48 PM [facility] REPOSITORY TYPE CODE TESTS RESULT OUT OF RANGE REFERENCE UNITS LAB L501.5200 1.6-2.6 mg/dL Normal MG 2.0 Result Comment: Please note revised Magnesium reference range effective 2017. Performed By: #### L501.5200, L501.9520 #### [facility] [address] [place], [address] THYROID STIM HORMONE Collected: 12/30/2017 Status: F Source: [facility] (TSH) 4[facility]48 PM [facility] TYPE CODE TESTS RESULT OUT OF RANGE REFERENCE UNITS LAB L501.9520 0.358-3.74 uIU/mL Normal TSH 1.09 Performed By: #### L501.5200, L501.9520 #### [facility] [address] [place], [address] HISTORY AND PHYSICAL Observed: 12/30/2017 Status: F Source: ARVIN EXAM 3:53 PM [facility] REPOSITORY [facility] Medical Records Department [address] [place] [address] History and Physical 12/30/17 1538 MR#: [id number] Acct: [id number] Name: CECILE VALLEJO Rep #: [id number] : 1945 72 From: Leno Croft MD PCP: Juan Mcdaniel MD Status: ADM IN Location: [place] [address] Problem List (1) Acute CHF Status: Acute (2) New onset A. fib with RVR Status: Acute (3) History of breast cancer Status: Chronic (4) COPD (chronic obstructive pulmonary disease) Status: Chronic (5) Hypertension Status: Chronic History of Present Illness Date of Admission: 12/30/17 Chief Complaint: Shortness of breath. The patient is a 72 year old F with past medical history as mentioned above presented to the medicine because of shortness of breath. Her symptoms started around 2 weeks ago with progressive shortness of breath, initially was with moderate exertion that progressed to become even with minimal exertion and sometimes at rest, aggravated by activity, minimally relieved with rest associated with leg swelling more on the right leg as well as orthopnea. She mentioned that she sleeps on a recliner because of her back pain but over the last week, she has been also complaining of shortness of breath when she lay flat. She denied associated chest pain, dictation, dizziness or lightheadedness. Today, she went to her PCPs office for bilateral leg swelling and shortness of breath, EKG performed and she was found to be in A. fib with RVR and she was sent to the emergency department for evaluation. In the emergency room, she was in A. fib with RVR, heart rate has been in the 130s, blood pressure stable. She was dyspneic and tachypneic, pulse ox was 97% on room air. She was afebrile. Her routine blood work was unremarkable. Troponin was negative. BNP was 223. Her EKG revealed A. fib with RVR, rate has been in 130s, no acute ischemic changes. Chest x- ray revealed left upper lobe opacity, irregular. CTA chest revealed no evidence of PE or dissection, revealed spiculated masslike lesion in the left upper lobe which could be due to lung scarring versus possible metastasis. The patient mentioned that she is aware that she has lung scarring on the left upper lung and her doctor is aware of this as well. Admitted for new onset A. fib with RVR and acute probably systolic CHF. Past Medical History Past Medical History (Chronic Problems): Chronic Problems History of breast cancer (Chronic) COPD (chronic obstructive pulmonary disease) (Chronic) Hypertension (Chronic) Allergies albuterol sulfate [From Combivent] Allergy (Verified 12/30/17 09:50) Swelling ipratropium bromide [From Combivent] Allergy (Verified 12/30/17 09:50) Swelling metoprolol Allergy (Verified 12/30/17 09:50) Laryngospasms Sulfa (Sulfonamide Antibiotics) Allergy (Verified 12/30/17 09:50) Rash beclomethasone [From Qvar] Adverse Reaction (Verified 12/30/17 09:50) COUGHING benzalkonium chloride [From Merthiolate (benzalkonium)] Adverse Reaction (Verified 12/30/17 09:50) Other codeine Adverse Reaction (Verified 12/30/17 09:50) Other doxycycline Adverse Reaction (Verified 12/30/17 09:50) Abd cramps/diarrhea formoterol fumarate [From Dulera] Adverse Reaction (Verified 12/30/17 09:50) Other hydrochlorothiazide Adverse Reaction (Verified 12/30/17 09:50) Other ibuprofen [From Advil] Adverse Reaction (Verified 12/30/17 09:50) Other iodine Adverse Reaction (Verified 12/30/17 09:50) Itching merbromin Adverse Reaction (Verified 12/30/17 09:50) Other mometasone furoate [From Dulera] Adverse Reaction (Verified 12/30/17 09:50) Other prednisone Adverse Reaction (Verified 12/30/17 09:50) Abd cramps/diarrhea PLASTIC TAPE Allergy (Uncoded 12/30/17 09:50) Rash Home Medications: Ambulatory Orders Medication Instructions Recorded Amlodipine [Norvasc] 5 mg PO DAILY 04/11/15 Doxazosin Mesylate [Cardura] 0.5 mg PO QHS 04/11/15 Fluticasone/Salmeterol [Advair 1 puff INHALATION BID 04/11/15 Surgical History: mastectomy Psychiatric History: No pertinent psych hx BUSINESS CONSULTANT History: No pertinent BUSINESS CONSULTANT history Lives: Spouse/ Significant Other Smoking Status: Current every day smoker Alcohol: None Drugs: None - *Family History Maternal History Items: No pertinent history Paternal History Items: No pertinent history Review of Systems Constitutional: Denies: Anorexia, Chills, Fever, Weakness Eyes: Denies: Blurred vision, Double vision, Drainage, Redness HEENT: Denies: Difficulty Hearing, Ear Pain, Eye Pain, Nasal Congestion, Sore Throat Cardiovascular: Reports: Edema. Denies: Chest Pain, Chest Pressure, Light Headedness, Orthopnea, Paroxysmal Noc. Dyspnea, Syncope Respiratory: Reports: Cough, Shortness of Breath, Shortness of breath at rest, Shortness of breath upon exertion. Denies: Pleuritic Pain, Sputum production, Wheezing Gastrointestinal: Denies: Abdominal Pain, Constipation, Diarrhea, Nausea, Vomiting Genitourinary: Denies: Dysuria, Frequency, Hematuria Musculoskeletal: Denies: Arm Pain, Back Pain Skin: Denies: Dryness, Rash Neurological: Denies: Balance problems, Double vision, Slurred speech, Confusion, Headaches, Incoordination Psychiatric: Denies: Anxiety, Depression Endocrine: Denies: Change in Body Habitus, Polydipsia VTE Information - Inpt Only VTE Present on Admission: No VTE Mechan Device Prophylaxis: None VTE Pharm Prophylaxis ordered?: No Patient Problems: Active and Suspected Problems Acute CHF (Acute) New onset A. fib with RVR (Acute) - Physical Exam General: Alert, Oriented x3, Cooperative, - - Moderately short of breath. HEENT: Atraumatic, PERRLA, EOMI Oral: Moist Mucosa, No Gingival or Mucosal Lesions/ Ulcerations Neck: Supple, No JVD, Negative Carotid Bruits, Trachea Midline, Thyroid Normal Size and Texture Lungs: No wheeze, Diminished, Rales, Rhonchi, Short of Breath, - - Decreased breath sounds at the bases, bilateral basal crackles, rhonchi. Cardiovascular: Normal S1, Normal S2, No murmurs, PMI Normal, Irregular Rate, Tachycardic Abdomen: Bowel Sounds Present, Soft, Non Tender, Non-Distended, No Hepato-splenomegaly Extremities: No clubbing, No cyanosis, Edema - Trace edema on the left leg,++ edema on the right leg. Skin: No rashes, No breakdown Lymphatic: No Cervical, Supraclavicular, or Inguinal Adenopathy Neurological: Cranial nerves II-XII grossly intact, Motor Exam 5/5 strength throughout Psych/Mental Status: Normal Affect, Appropriate, Alert and oriented to time, place, person, mood and affect Vital Signs Temp Pulse Resp BP Pulse Ox 98.2 F 115 H 20 H 123/90 H 96 12/30/17 09:46 12/30/17 15:35 12/30/17 15:35 12/30/17 15:35 12/30/17 15:35 Laboratory Tests WBC 6.4 (4.4-11.0) K/mm3 RBC 4.76 (4.2-5.4) M/mm3 Hgb 15.3 H (12.0-15.0) g/dl Hct 47.9 H (37-47) % Clinical Impression(s) from Imaging Studies Chest X-Ray 12/30/17 10:03 IMPRESSION: Right lung is clear. Left upper lobe airspace disease with possible nodule. Underlying neoplastic process cannot be excluded with post obstructive pneumonia. Recommend CT chest to further evaluate Electronically Signed: Vishal Ruiz DO at 10:45 EDT Tel , Service support , Chest CTA 12/30/17 11:09 IMPRESSION: 1. Negative for pulmonary emphysema or thoracic aortic dissection 2. As compared to the exam from 2009, there is a stable calcified mass involving the left anterior third rib and chest wall however, there has been development of a spiculated masslike lesion in the left upper lobe measuring 2.9 x 1.9 cm. Recurrent or metastatic disease cannot be excluded. However, this may be related to post radiation changes. PET/CT versus tissue sampling may be needed to further evaluate 3. Subtle right lower lobe infiltrate could represent infection 4. Patient is status post left mastectomy with left axillary lymph node dissection. Postradiation changes noted of the right breast with skin thickening. Electronically Signed: Vishal Ruiz DO at 14:33 EDT Tel , Service support , Assessment/Plan Active and Suspected Problems Acute CHF (Acute) New onset A. fib with RVR (Acute) This is a 72 years old female patient seen because of shortness of breath and leg swelling and she was found to have new onset A. fib with RVR and acute probably systolic CHF. #1 new onset/newly diagnosed A. fib with RVR: Reviewed, revealed A. fib with RVR, rate has been in 130s, no acute ischemic changes. Patient received 2 bolus of IV Cardizem and she remained in 130s, blood pressure stable and she was started on IV Cardizem drip. First troponin is negative. Plan: Admit to PCU, cardiac monitoring, serial cardiac enzymes, repeat EKG tomorrow morning, continue IV Cardizem drip, start therapeutic Lovenox twice daily, TSH, serum magnesium, 2D echocardiogram, cardiology consult. Her [id number]- VASc is 4 and she is at moderate risk of stroke and she is a candidate for anticoagulation. #2 acute probably systolic CHF: This is based on symptoms of shortness of breath, leg edema and orthopnea as well as elevated BNP and chest x-ray findings. Plan: Diuresis with IV Lasix, 2D echocardiogram, further dissection to less than 1500 cc daily, continue Accupril. , Cardiology consult. She is allergic to beta-blockers. #3 questionable left upper lobe mass: CTA chest reviewed, revealed left upper lobe spiculated masslike. Patient mentioned she is aware she has scarring on her left lung due to radiation to her left breast cancer many years ago. I would recommend follow-up with her oncologist upon discharge. #3 history of breast cancer status post total left mastectomy and right lumpectomy: Status post chemotherapy and radiation. In remission at this time, plan to follow-up with her PCP and oncology as outpatient. #5 hypertension: Blood pressure stable, continue Norvasc and Accupril. #6 COPD: Pulse ox is normal on room air. She is allergic to albuterol and ipratropium bromide. Plan to continue Ventolin inhaler and Advair. #7 DVT prophylaxis: She will be on therapeutic Lovenox twice daily. This note was generated with KXEN dictation software. It may contain incorrect words, spelling, and punctuation that were not noted in checking the note before signing. Code Visit Inpatient E AND M: 43271 Init Hosp L3 12/30/17 1553 <Electronically signed by Leno Croft MD> Date Leno Croft MD Cosigner Signature: Date (if applicable) CC: Leno Croft; Juan Mcdaniel MD Signed EMERGENCY DEPARTMENT Observed: 12/30/2017 Status: F Source: [facility]VIN SUMMARY 3:06 PM [facility] REPOSITORY [facility] Medical Records Department [address] [facility] [place] [place] [address] Emergency Department Summary 12/30/17 1503 MR#: [id number] Acct: [id number] Name: CECILE VALLEJO Rep #: [id number] : 1945 72 From: Emily Dsouza DO PCP: Juan Mcdaniel MD Status: REG ER - ER Visit Summary Date of Service: 12/30/17 Chief Complaint: [Shortness of breath] History of Present Illness: The patient is a 72 F [presents with shortness of breath that started about 2 weeks ago. Patient also describes exertional dyspnea. Patient denies any chest pain or palpitations. Patient's legs have been swollen for about 4 days. Patient is gained about 5 pounds. Patient seen by primary care physician today sent to the ER for further workup and evaluation. Patient had EKG in the office that showed new onset A. fib RVR.] Physical Examination: [HEENT-PERRLA, EOMI. Cranial nerves II through XII grossly intact. TMs clear. Mucous membranes moist. No adenopathy. Cardiovascular-irregularly irregular, no murmurs auscultated. Lungs-clear to auscultation, chest wall stable without crepitus or subcu emphysema Abdomen-normoactive bowel sounds, soft, nontender, no rebound or rigidity, no peritoneal signs. Extremities-intact 4, normal range of motion, normal pulses, atraumatic]. Patient has +2 edema both lower extremities. Test Results: EKG obtained on arrival showed atrial fibrillation with a ventricular rate of 131 bpm. Questionable old anterior wall infarct noted. CBC with differential obtained showed a white blood cell count of 6.4, hemoglobin 15, hematocrit 48, platelets 234. Chemistries unremarkable. Troponin was less than 0.02. BNP was 223. Chest x-ray showed questionable nodule left upper lobe and they recommended obtaining a CT scan to evaluate further. CT scan of the chest with IV contrast showed no evidence for PE or dissection. Patient was noted to have a left upper lobe spiculated mass which could be from prior radiation or may represent a cancerous lesion potentially. Patient tells me that she has had some scarring in the left upper lobe from prior radiation that she is aware of. Radiology recommended potentially obtaining a PET scan to evaluate further. [] Emergency Department Course and Treatment: [Patient was started on a Cardizem drip] Treatment Plan: [Admit for further workup and evaluation] Disposition: [Admit] Impression: [Atrial fibrillation with rapid ventricular response- new onset] This note was generated with KXEN dictation software. It may contain incorrect words, spelling, and punctuation that were not noted in review of the chart prior to signing ED Disposition - Plan for ED Patient: Chief Complaint: Palpitations Referrals: Juan Mcdaniel MD [Primary Care Provider] - What to do if you have Problems For any increased pain, shortness of breath, bleeding, nausea or vomiting, chest pain, or any unexpected problems, contact your Primary Care Provider. Call [facility] ([phone]) or report to the closest Emergency Room. Call 911 if necessary. 12/30/17 1506 <Electronically signed by Emily Dsouza DO> Date Emily Dsouza DO Cosigner Signature (If Indicated): Date CC: Juan Mcdaniel MD CTA CHEST W/WO Observed: 12/30/2017 Status: F Source: [place] CONTRAST 11:10 AM [facility] REPOSITORY [facility] Imaging Services [address] [place] [address] CTA Chest W/WO Contrast MR#: [id number] Acct: [id number] Name: CECILE VALLEJO Rep #: [id number] : 1945 F 72 From: Vishal Ruiz DO PCP: Juan Mcdaniel MD Status: REG ER Study: CTA Chest W/WO Contrast Date of Exam: 12/30/17 Exam# [id number] Ordering Dr: Emily Dsouza DO STUDY: CTA CHEST REASON FOR EXAM: Female, 72 years old. Chest pain and shortness of breath. Possible chest mass. RADIATION DOSAGE (If Supplied By Facility): CTDIvol = ( 11.9 ) mGy, DLP = ( 506.09 ) mGycm TECHNIQUE: The examination was performed with the intravenous administration of 100 ml of Isovue 300 contrast material. Post-processing of the angiographic images was performed, with multiplanar reformation and 3D reconstruction. Individualized dose optimization techniques were used for this CT. COMPARISON: 07/17/2010 FINDINGS: Normal enhancement of the main pulmonary artery and right and left pulmonary arteries. Normal enhancement of the bilateral peripheral pulmonary arteries. There is no demonstrated pulmonary embolism. Normal thoracic aorta and visualized great vessels. There is no demonstrated aortic dissection. Mild cardiomegaly. There is a component of pectus excavatum. Normal mediastinum. Normal hilar regions. Normal visualized trachea and bronchi. The lungs are hyper expanded, with flattening of the hemidiaphragms. Small amount of right lower lobe infiltrate could represent infection. Normal pleura. In the left hemithorax, there again is noted to be a dense calcified mass involving the third rib anteriorly. Patient is status post left mastectomy with left axillary lymph node dissection. This calcified mass involving the rib is essentially unchanged however, there has been development of a soft tissue mass versus area of scarring in the left upper lobe measuring 2.9 x 1.9 cm. No other pulmonary masses or nodules are seen. Unsure if this is radiation scarring versus recurrent disease. There is thickening of the skin of the right breast suggesting prior radiation involvement as well. Remaining osseous structures demonstrate degenerative change with some scoliosis. Normal visualized upper abdomen. CT/CTA Chest W/WO Contrast IMPRESSION: 1. Negative for pulmonary emphysema or thoracic aortic dissection 2. As compared to the exam from 2009, there is a stable calcified mass involving the left anterior third rib and chest wall however, there has been development of a spiculated masslike lesion in the left upper lobe measuring 2.9 x 1.9 cm. Recurrent or metastatic disease cannot be excluded. However, this may be related to post radiation changes. PET/CT versus tissue sampling may be needed to further evaluate 3. Subtle right lower lobe infiltrate could represent infection 4. Patient is status post left mastectomy with left axillary lymph node dissection. Postradiation changes noted of the right breast with skin thickening. Electronically Signed: Vishal Ruiz DO at 14:33 EDT Tel , Service support , CC: Emily Dsouza DO; Juan Mcdaniel MD [employer] Consultant: Signed CHEST 1 VIEW Observed: 12/30/2017 Status: F Source: ARVIN (PORTABLE) 10:04 AM [facility] REPOSITORY [facility] Imaging Services [address] [place] [id number] Chest 1 View (Portable) MR#: [id number] Acct: [id number] Name: CECILE VALLEJO Rep #: [id number] : 1945 F 72 From: Vishal Ruiz DO PCP: Juan Mcdaniel MD Status: REG ER Study: Chest 1 View (Portable) Date of Exam: 12/30/17 Exam# [id number] Ordering Dr: Emily Dsouza DO STUDY: X-RAY CHEST REASON FOR EXAM: Female, 72 years old. Shortness of breath x5 days TECHNIQUE: Single AP portable view of the chest. COMPARISON: None. FINDINGS: There is hyperinflation of the lungs consistent with chronic obstructive lung disease (COPD). Right lung is clear. There is left upper lobe airspace disease with questionable nodule measuring 3.3 x 1.8 cm. There is no demonstrated pleural abnormality. There is mild cardiac enlargement. Normal mediastinum and mike. Normal visualized pulmonary arteries. Normal visualized aortic arch and descending thoracic aorta. There is a dextroscoliosis of the thoracic spine. Normal visualized ribs, clavicles, and shoulders. There is no demonstrated abnormality of the visualized soft tissue structures of the upper abdomen. RAD/Chest 1 View (Portable) IMPRESSION: Right lung is clear. Left upper lobe airspace disease with possible nodule. Underlying neoplastic process cannot be excluded with post obstructive pneumonia. Recommend CT chest to further evaluate Electronically Signed: Vishal Ruiz DO at 10:45 EDT Tel , Service support , CC: Emily Dsouza DO; Juan Mcdaniel MD [employer] Consultant: Signed CBC W/DIFF, AUTOMATED Collected: 12/30/2017 Status: F Source: SATINDER 10:00 AM [facility] REPOSITORY TYPE CODE TESTS RESULT OUT OF RANGE REFERENCE UNITS LAB L100.1000 4.4-11.0 K/mm3 Normal WBC 6.4 LAB L100.1200 4.2-5.4 M/mm3 Normal RBC 4.76 LAB L100.1300 12.0-15.0 g/dl High HGB 15.3 LAB L100.1400 37-47 % High HCT 47.9 LAB L100.1500 81-99 fL High MCV 100.6 LAB L100.1600 27.0-32.0 pg High MCH 32.1 LAB L100.1700 32-36 g/gl Low MCHC 31.9 LAB L100.1810 11.6-14.6 % Normal RDW CV 13.0 LAB L100.1820 35.1-43.9 fl High RDW SD 47.3 LAB L100.1900 150-450 K/mm3 Normal PLT 234 LAB L100.2000 6.2-12.0 fl Normal MPV 9.2 LAB L100.2100 47-70 % Normal NEUT% 63.0 LAB L100.2200 19-41 % Normal LY% 25.9 LAB L100.2300 0-10 % Normal MONO% 8.2 LAB L100.2400 0-5 % Normal EO% 2.2 LAB L100.2500 0-1 % Normal BASO% 0.5 LAB L100.2550 0.0-0.9 % Normal IM GRAN % 0.200 Result Comment: IG% - Immature Granulocytes (promyelocytes, myelocytes and metamyelocytes) > 1% indicates that a LEFT SHIFT is Present. LAB L100.2620 2.0-7.7 X10 3/uL Normal Absolute Neut 4.0 LAB L100.2720 0.83-4.51 X10 3/ul Normal Absolute Lymph 1.65 Performed By: #### L100.0100 #### [facility] [address] [place], [address] BASIC METABOLIC Collected: 12/30/2017 Status: F Source: SATINDER PROFILE (BMP) 10:00 AM [facility] REPOSITORY Order Comment: 'TROP' Serial specimen #1, #2, #3, or #4: 1 TYPE CODE TESTS RESULT OUT OF RANGE REFERENCE UNITS LAB L501.0100 74-106 mg/dL High GLU 112 Result Comment: Fasting Glucose result from 100 to 125 mg/dL suggests IMPAIRED HOMEOSTASIS per A.D.A. criteria. Please note revised GLUCOSE reference range effective 2017. LAB L501.1000 7-18 mg/dL Low BUN 6 LAB L501.1100 0.55-1.02 mg/dL Normal CREAT,SERUM 0.94 Result Comment: The validity of the calculated GFR AND GFRAA in patients over 70 years has not been determined. Clinical correlation is essential. LAB L501.1110 >60 mL/min Normal EST GFR 62 Result Comment: Non- GFR Calc LAB L501.1115 >60 mL/min Normal EST GFR - AA 75 Result Comment: GFR Calc LAB L501.1255 ml/min Normal Estimated CRCL 47.40 LAB L501.1300 10-20 RATIO Low BUN/CRE 6.3 LAB L501.2200 8.5-10 mg/dL Normal .1 CA 9.7 LAB L501.5300 136-14 mmol/L Normal 5 NA 140 LAB L501.5600 3.5-5. mmol/L Normal 1 K 3.9 LAB L501.5900 98-107 mmol/L Normal CL 102 LAB L501.6100 21.0-3 mmol/L Normal 2.0 CO2 30.0 LAB L501.6200 5-15 Normal GAP 8 Performed By: #### L500.2500, L501.4010 #### [facility] [address] [facility] [place], [address] TROPONIN-I Collected: 12/30/2017 Status: F Source: ARVIN 10:00 AM [facility] REPOSITORY Order Comment: 'TROP' Serial specimen #1, #2, #3, or #4: 1 TYPE CODE TESTS RESULT OUT OF RANGE REFERENCE UNITS LAB L501.4010 <0.06 ng/mL Normal < 0.02 TROPONIN-I Result Comment: TROPONIN-I EXPECTED VALUES <0.05 NEGATIVE 0.06 - 0.59 AT RISK OF ID > OR = 0.60 SUGGEST ID Performed By: #### L500.2500, L501.4010 #### [facility] [address] [place], [address] BNP,B-TYPE NATRIURETIC Collected: 12/30/2017 Status: F Source: ARVIN PEPTIDE 10:00 AM [facility] REPOSITORY TYPE CODE TESTS RESULT OUT OF RANGE REFERENCE UNITS LAB L503.6620 0-100 pg/mL High B-TYPE 223.0 CATALINO PEP Performed By: #### L503.6620 #### [facility] [address] [facility] [place], [address] PROGRESS Observed: 12/30/2017 Status: COMPLETED Source: [place] 9:15 AM [facility] REPOSITORY HNO ID: [id number] Author: Juan Mcdaniel Service: (none) Author Type: Physician Type: Progress Notes Filed: 12/30/2017 9:24 AM Note Text: Patient presents with: Edema: bilateral ankle edema HPI: Patient presents today for office visit for an acute visit. Nursing Notes: Janet Rubi EZIO 12/30/2017 9:01 AM Addendum Bilateral ankle edema. Really flared up for the past 4 days. They are slightly better in the morning. Has noticed more cough and shortness of breath since swelling has started. had to bring her back to office in wheelchair today because she knew was too far with her shortness of breath. No fever or chills. No chest pain. Edema goes down slightly at night. Has gained 5 lbs. No pain in the calves. She is short of breath with any exertion. Nursing noted very rast and irregular heart rate on arrival. MEDICATIONS: Current Outpatient Prescriptions: fluticasone-salmeterol (ADVAIR DISKUS) 250-50 mcg/dose dsdv Inhale 1 Puff as instructed twice daily. Rinse and gargle mouth after use with water. albuterol HFA (VENTOLIN HFA) 90 mcg/actuation inhaler Inhale 2 Puffs as instructed every 4 hours as needed for Wheezing/Shortness of Breath. doxazosin (CARDURA) 1 mg tablet Take 0.5 tablets by mouth once daily. amLODIPine (NORVASC) 5 mg tablet Take 1 tablet by mouth once daily. (Patient taking differently: Take 2.5 mg by mouth once daily. ) quinapril (ACCUPRIL) 20 mg tablet Take 1 tablet by mouth twice daily. B Complex Vitamins (B-50 COMPLEX) TbER Take 1 tablet by mouth once daily. Vitamin E 400 unit tab Take by mouth. MULTIVITAMIN ORAL Take by mouth. emollient combination (PRUTECT) emul APPLY 1 APPLICATION TO AFFECTED AREA NEEDED ACETAMINOPHEN 500 MG TAB Take one(1) tablet every four(4) hours prn. No current facility-administered medications for this visit. ALLERGIES: ALLERGIES Allergen Reactions - Sulfa (Sulfonamide * Rash SOME SULFA DRUGS Specifically reacted to topical sulfa cream, pt stated. - Codeine Severe headaches - Combivent [Ipratrop* Swelling - Doxycycline Intolerance Stomach pains..it makes me double over, pt stated. - Dulera [Mometasone-* Intolerance tachycardia - Gabapentin Other: See Comments Loss of balance - Hctz [Amiloride-Hyd* blurry vision, fatigue - Iodine - Mercurochrome [Merb* Intolerance Wound becomes infected, inflamed AND hyper-reactionary, pt stated. - Merthiolate [Other] - Metoprolol Cough - Prednisone messed up stomach patient states is able to take in small divided doses - Qvar [Beclomethason* Other: See Comments Reports coughing, headache, dizziness, nausea, wheezing. - Tamiflu [Oseltamivi* Intolerance Reported abdominal pain, changes in breathing, and severe dry mouth 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 - Unspecified essential hypertension PAST SURGICAL HISTORY Procedure Laterality Date - BREAST BIOPSY W/ULTRASOUND GUIDANCE 06/10/14 U/S needle core upper inner right breast - COLONOS W/REM POLYP SNARE 03/04/09 Sigmoid polyp and diverticulosis - LIGATE FALLOPIAN TUBE 1987 Tubal ligation - MASTECTOMY 1993 Left - PAST SURGICAL HISTORY OF 2003 right lumpectomy - REM LESION NEC,HND,SCAL 1.1-2.0CM 03/13/06 Infected jacqueline cyst posterior neck - REMOVE PERM CANNULA/CATHETER 07/31/06 Remove right IJ port FAMILY HISTORY Problem Relation Age of Onset - Cancer Sister uterine or ovarian (pt not sure) - Coronary Artery Disease Mother - Cancer Brother , brain cancer Social History Marital status: Spouse name: maria dolores Years of education: 11 Number of children: 3 Occupational History 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 REVIEW OF SYSTEMS All other reviewed and negative other than HPI. HEALTH MAINTENANCE: Reviewed health maintenance issues today and recommended the following in detail. There are no preventive care reminders to display for this patient. VITALS: BP 152/82 Pulse (!) 127 Temp 36.7 ?C (98 ?F) (Tympanic) Wt 84.4 kg (186 lb) SpO2 93% BMI 34.86 kg/m2 Last 4 Encounter Wt Readings: Date: Wt: 12/30/2017 84.4 kg (186 lb) 10/15/2017 82.1 kg (181 lb) 05/31/2017 82.7 kg (182 lb 6.4 oz) 11/01/2016 85.1 kg (187 lb 9.6 oz) PHYSICAL EXAMINATION: General appearance: Well appearing, alert, in no acute distress, well-hydrated, well nourished. Skin: Skin color, texture, turgor normal, no suspicious rashes or lesions Head: Normocephalic, no masses, lesions, tenderness or abnormalities Lungs: Lungs clear to auscultation. No wheezing, rhonchi, rales Heart: tachy, irregularly irregular. No murmur Abdomen: Normal abdominal exam, Abdomen soft, non-tender. Bowel sounds normal. No masses, organomegaly Extremities: 2 plus edema. No redness or warmth. ASSESSMENT/PLAN: 1. Tachycardia - ICD9: 785.0, ICD10: R00.0 (primary diagnosis) - new onset a fib with rapid rate. She is symptomatic. No current chest pain. will transport to Er and will give report. - ECG COMPLETE W INTERPRETATION 2. Paroxysmal atrial fibrillation (HCC) - ICD9: 427.31, ICD10: I48.0 3. Generalized edema - ICD9: 782.3, ICD10: R60.1 4. Essential hypertension, benign - ICD9: 401.1, ICD10: I10 5. Pulmonary emphysema, unspecified emphysema type (HCC) - ICD9: 492.8, ICD10: J43.9 Juan Mcdaniel MD CNOV Observed: 12/30/2017 Status: COMPLETED Source: [place] 8:20 AM [facility] REPOSIT[facility] Office Visit (FAMPWS) CECILE VALLEJO ([id number]) 1945 F Date Time Provider Department 12/30/17 8:20 AM JUAN MCDANIEL During your visit today, we recorded the following information about you: Temperature Pulse Blood pressure Weight 98 degrees 127/minute 152/82 84.4 kg Janet Rubi ZEIO 12/30/2017 9:01 AM Addendum Bilateral ankle edema. Really flared up for the past 4 days. They are slightly better in the morning. Has noticed more cough and shortness of breath since swelling has started. had to bring her back to office in wheelchair today because she knew was too far with her shortness of breath. Juan Mcdaniel MD 12/30/2017 9:24 AM Signed Patient presents with: Edema: bilateral ankle edema HPI: Patient presents today for office visit for an acute visit. Nursing Notes: Janet Rubi EZIO 12/30/2017 9:01 AM Addendum Bilateral ankle edema. Really flared up for the past 4 days. They are slightly better in the morning. Has noticed more cough and shortness of breath since swelling has started. had to bring her back to office in wheelchair today because she knew was too far with her shortness of breath. No fever or chills. No chest pain. Edema goes down slightly at night. Has gained 5 lbs. No pain in the calves. She is short of breath with any exertion. Nursing noted very rast and irregular heart rate on arrival. MEDICATIONS: Current Outpatient Prescriptions: fluticasone-salmeterol (ADVAIR DISKUS) 250-50 mcg/dose dsdv Inhale 1 Puff as instructed twice daily. Rinse and gargle mouth after use with water. albuterol HFA (VENTOLIN HFA) 90 mcg/actuation inhaler Inhale 2 Puffs as instructed every 4 hours as needed for Wheezing/Shortness of Breath. doxazosin (CARDURA) 1 mg tablet Take 0.5 tablets by mouth once daily. amLODIPine (NORVASC) 5 mg tablet Take 1 tablet by mouth once daily. (Patient taking differently: Take 2.5 mg by mouth once daily. ) quinapril (ACCUPRIL) 20 mg tablet Take 1 tablet by mouth twice daily. B Complex Vitamins (B-50 COMPLEX) TbER Take 1 tablet by mouth once daily. Vitamin E 400 unit tab Take by mouth. MULTIVITAMIN ORAL Take by mouth. emollient combination (PRUTECT) emul APPLY 1 APPLICATION TO AFFECTED AREA NEEDED ACETAMINOPHEN 500 MG TAB Take one(1) tablet every four(4) hours prn. No current facility-administered medications for this visit. ALLERGIES: ALLERGIES Allergen Reactions - Sulfa (Sulfonamide * Rash SOME SULFA DRUGS Specifically reacted to topical sulfa cream, pt stated. - Codeine Severe headaches - Combivent [Ipratrop* Swelling - Doxycycline Intolerance ANDquot;Stomach pains..it makes me double over,ANDquot; pt stated. - Dulera [Mometasone-* Intolerance tachycardia - Gabapentin Other: See Comments Loss of balance - Hctz [Amiloride-Hyd* blurry vision, fatigue - Iodine - Mercurochrome [Merb* Intolerance Wound becomes infected, inflamed ANDamp; ANDquot;hyper-reactionary,ANDquot; pt stated. - Merthiolate [Other] - Metoprolol Cough - Prednisone ANDquot;messed up stomachANDquot; patient states is able to take in small divided doses - Qvar [Beclomethason* Other: See Comments Reports coughing, headache, dizziness, nausea, wheezing. - Tamiflu [Oseltamivi* Intolerance Reported abdominal pain, changes in breathing, and severe dry mouth 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 - Unspecified essential hypertension PAST SURGICAL HISTORY Procedure Laterality Date - BREAST BIOPSY W/ULTRASOUND GUIDANCE 06/10/14 U/S needle core upper inner right breast - COLONOS W/REM POLYP SNARE 03/04/09 Sigmoid polyp and diverticulosis - LIGATE FALLOPIAN TUBE 1987 Tubal ligation - MASTECTOMY 1993 Left - PAST SURGICAL HISTORY OF 2003 right lumpectomy - REM LESION NEC,HND,SCAL 1.1-2.0CM 03/13/06 Infected jacqueline cyst posterior neck - REMOVE PERM CANNULA/CATHETER 07/31/06 Remove right IJ port FAMILY HISTORY Problem Relation Age of Onset - Cancer Sister uterine or ovarian (pt not sure) - Coronary Artery Disease Mother - Cancer Brother , brain cancer Social History Marital status: Spouse name: maria dolores Years of education: 11 Number of children: 3 Occupational History 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 REVIEW OF SYSTEMS All other reviewed and negative other than HPI. HEALTH MAINTENANCE: Reviewed health maintenance issues today and recommended the following in detail. There are no preventive care reminders to display for this patient. VITALS: BP 152/82 Pulse (!) 127 Temp 36.7 ?C (98 ?F) (Tympanic) Wt 84.4 kg (186 lb) SpO2 93% BMI 34.86 kg/m2 Last 4 Encounter Wt Readings: Date: Wt: 12/30/2017 84.4 kg (186 lb) 10/15/2017 82.1 kg (181 lb) 05/31/2017 82.7 kg (182 lb 6.4 oz) 11/01/2016 85.1 kg (187 lb 9.6 oz) PHYSICAL EXAMINATION: General appearance: Well appearing, alert, in no acute distress, well-hydrated, well nourished. Skin: Skin color, texture, turgor normal, no suspicious rashes or lesions Head: Normocephalic, no masses, lesions, tenderness or abnormalities Lungs: Lungs clear to auscultation. No wheezing, rhonchi, rales Heart: tachy, irregularly irregular. No murmur Abdomen: Normal abdominal exam, Abdomen soft, non-tender. Bowel sounds normal. No masses, organomegaly Extremities: 2 plus edema. No redness or warmth. ASSESSMENT/PLAN: 1. Tachycardia - ICD9: 785.0, ICD10: R00.0 (primary diagnosis) - new onset a fib with rapid rate. She is symptomatic. No current chest pain. will transport to Er and will give report. - ECG COMPLETE W INTERPRETATION 2. Paroxysmal atrial fibrillation (HCC) - ICD9: 427.31, ICD10: I48.0 3. Generalized edema - ICD9: 782.3, ICD10: R60.1 4. Essential hypertension, benign - ICD9: 401.1, ICD10: I10 5. Pulmonary emphysema, unspecified emphysema type (HCC) - ICD9: 492.8, ICD10: J43.9 Juan Mcdaniel MD Referring Provider: SELF [[id number]] Allergies As of Date: 12/30/2017 Noted Allergy Reaction SULFA (SULFONAMIDE ANTIBIOTICS) 08/08/2005 2 - Rash Comments: SOME SULFA DRUGS Specifically reacted to topical sulfa cream, pt stated. CODEINE 03/05/2008 Comments: Severe headaches COMBIVENT (IPRATROPIUM-ALBUTEROL) 08/25/2012 7 - Swelling DOXYCYCLINE 08/08/2005 5 - Intolerance Comments: Stomach pains..it makes me double over, pt stated. DULERA (MOMETASONE-FORMOTEROL) 09/03/2012 5 - Intolerance Comments: tachycardia GABAPENTIN 06/16/2014 14 - Other: See Comments Comments: Loss of balance HCTZ (AMILORIDE-HYDROCHLOROTHIAZI*01/19/2009 Comments: blurry vision, fatigue IODINE 08/08/2005 MERCUROCHROME (MERBROMIN) 08/08/2005 5 - Intolerance Comments: Wound becomes infected, inflamed AND hyper- reactionary, pt stated. MERTHIOLATE [Other] 08/08/2005 METOPROLOL 07/17/2013 3 - Cough PREDNISONE 01/19/2009 Comments: messed up stomach patient states is able to take in small divided doses QVAR (BECLOMETHASONE) 03/08/2016 14 - Other: See Comments Comments: Reports coughing, headache, dizziness, nausea, wheezing. TAMIFLU (OSELTAMIVIR) 12/30/2017 5 - Intolerance Comments: Reported abdominal pain, changes in breathing, and severe dry mouth tape [Other] 03/28/2006 2 - Rash ADVIL (IBUPROFEN) 08/08/2005 5 - Intolerance Comments: severe headache Date Reviewed: 12/30/2017 Reviewed by: Janet Rubi LPN - Fully Assessed Reason for Visit: Edema [39] Cmt: bilateral ankle edema Primary Visit Diagnosis:Tachycardia [R00.0] Other Visit Diagnoses:Paroxysmal atrial fibrillation (HCC) [I48.0] Generalized edema [R60.1] Essential hypertension, benign [I10] Pulmonary emphysema, unspecified emphysema type (HCC) [J43.9] Order(s):ECG COMPLETE W INTERPRETATION [ECG01] Order #: [id number] FUTURE Prescriptions as of 12/30/2017 Sig: FLUTICASONE 250 MCG-SALMETERO* Inhale 1 Puff as instructed t* ALBUTEROL SULFATE HFA 90 MCG/* Inhale 2 Puffs as instructed * DOXAZOSIN 1 MG TABLET Take 0.5 tablets by mouth onc* AMLODIPINE 5 MG TABLET Take 1 tablet by mouth once d* Patient taking differently: Take 2.5 mg by mouth once lynda* QUINAPRIL 20 MG TABLET Take 1 tablet by mouth twice * VITAMIN B COMPLEX ER TABLET,E* Take 1 tablet by mouth once d* VITAMIN E 400 UNIT TABLET Take by mouth. MULTIVITAMIN ORAL Take by mouth. EMOLLIENT COMBINATION NO.10 T* APPLY 1 APPLICATION TO AFFECT* ACETAMINOPHEN 500 MG TABLET Take one(1) tablet every four* Problem List As Of Date 12/30/2017 Noted Resolved Neoplasm of Unspecified Nature of Breast [D49.3] Priority: B More... Essential Hypertension, Benign [I10] INVALID FOR* Priority: A Osteoarth NOS-Unspec [M19.90] INVALID FOR* Malig Yayo Lymph-Axilla/Arm [C77.3] INVALID FOR*07/10/2010 Sebaceous Cyst [L72.3] INVALID FOR*07/10/2010 Unspecified Pleural Effusion [J90] INVALID FOR*07/10/2010 SCREEN (SEE ALSO ADMISSION) CANCER - COLON [Z*INVALID FOR*07/10/2010 Emphysema of lung (HCC) [J43.9] INVALID FOR* Priority: A Tobacco Use Disorder [F17.200] INVALID FOR* POLYP COLON [D12.6] INVALID FOR* Priority: B More... DIVERTICULOSIS [K57.30] INVALID FOR*02/01/2017 Priority: B Routine general medical examination at a health*INVALID FOR*08/01/2012 Class: Chronic More... Routine gynecological examination [Z01.419] INVALID FOR*08/01/2012 Class: Chronic More... RIB LESION, UNCERTAIN BEHAVIOR [M99.9] INVALID FOR*08/14/2016 Priority: A More... Mixed Hyperlipidemia [E78.2] INVALID FOR* Priority: A Back pain [M54.9] INVALID FOR* Priority: B Personal history of breast cancer [Z85.3] INVALID FOR* COPD (chronic obstructive pulmonary disease) (H* 08/14/2016 Lumbar radiculopathy [M54.16] INVALID FOR* DDD (degenerative disc disease), lumbar [M51.36]INVALID FOR* Lumbar scoliosis [M41.9] INVALID FOR* Visit Notes: >> Janet Rubi LPN Mon Dec 30, 2017 8:42 AM Status: Addendum Bilateral ankle edema. Really flared up for the past 4 days. They are slightly better in the morning. Has noticed more cough and shortness of breath since swelling has started. had to bring her back to office in wheelchair today because she knew was too far with her shortness of breath. Medications Discontinued During This Encounter benzonatate (TESSALON PERLE) 100 mg * 20 c* 0 10/15/2017 12/30/2017 Route: ORAL Sig: Take 1 capsule by mouth three times daily as needed for Cough. Disc: Course of therapy completed Disposition: Return in about 3 months (around 04/01/2018). Follow-up and Disposition History Recorded Encounter Status:Closed by JUAN MCDANIEL MD on 12/30/17 OBSOLETE Observed: 11/18/2017 Status: COMPLETED Source: [place] 12:00 AM [facility] REPOS[facility]ORY Refill (FAMPWS) CECILE VALLEJO ([id number]) 1945 F Date Time Provider Department 11/18/17 [facility]CDANIEL [facility] your visit today, we recorded the following information about you: Brynn Geena Aguilar 11/18/2017 10:38 AM Signed Patient has been identified by name and date of : Yes Pending Prescriptions Disp Refills FLUTICASONE 250 MCG-SALMETEROL 50 MCG/DOSE BLISTR POWDR FOR INHALATION 3 Inhaler 3 Sig: Inhale 1 Puff as instructed twice daily. Rinse and gargle mouth after use with water. ADRIEN: No ALBUTEROL SULFATE HFA 90 MCG/ACTUATION AEROSOL INHALER 3 Inhaler 3 Sig: Inhale 2 Puffs as instructed every 4 hours as needed for Wheezing/Shortness of Breath. ADRIEN: No DOXAZOSIN 1 MG TABLET 45 tablet 3 Sig: Take 0.5 tablets by mouth once daily. ADRIEN: No AMLODIPINE 5 MG TABLET 90 tablet 1 Sig: Take 1 tablet by mouth once daily. ADRIEN: No QUINAPRIL 20 MG TABLET 180 tablet 4 Sig: Take 1 tablet by mouth twice daily. ADRIEN: No RX INSTRUCTIONS: Patient aware RX will be sent to pharmacy. No need to notify patient. Brynn Land LPN 11/18/2017 4:18 PM Signed The following approved medication requests have been transmitted electronically. Signed Prescriptions Disp Refills fluticasone-salmeterol (ADVAIR DISKUS) 250-50 mcg/dose dsdv 3 Inhaler 3 Sig: Inhale 1 Puff as instructed twice daily. Rinse and gargle mouth after use with water. ADRIEN: No Authorizing Provider: JUAN MCDANIEL albuterol HFA (VENTOLIN HFA) 90 mcg/actuation inhaler 3 Inhaler 3 Sig: Inhale 2 Puffs as instructed every 4 hours as needed for Wheezing/Shortness of Breath. ADRIEN: No Authorizing Provider: JUAN MCDANIEL doxazosin (CARDURA) 1 mg tablet 45 tablet 3 Sig: Take 0.5 tablets by mouth once daily. ADRIEN: No Authorizing Provider: JUAN MCDANIEL amLODIPine (NORVASC) 5 mg tablet 90 tablet 1 Sig: Take 1 tablet by mouth once daily. ADRIEN: No Authorizing Provider: JUAN MCDANIEL quinapril (ACCUPRIL) 20 mg tablet 180 tablet 4 Sig: Take 1 tablet by mouth twice daily. ADRIEN: No Authorizing Provider: JUAN MCDANIEL LPN Allergies As of Date: 11/18/2017 Noted Allergy Reaction SULFA (SULFONAMIDE ANTIBIOTICS) 08/08/2005 2 - Rash Comments: SOME SULFA DRUGS Specifically reacted to topical sulfa cream, pt stated. CODEINE 03/05/2008 Comments: Severe headaches COMBIVENT (IPRATROPIUM-ALBUTEROL) 08/25/2012 7 - Swelling DOXYCYCLINE 08/08/2005 5 - Intolerance Comments: Stomach pains..it makes me double over, pt stated. DULERA (MOMETASONE-FORMOTEROL) 09/03/2012 5 - Intolerance Comments: tachycardia GABAPENTIN 06/16/2014 14 - Other: See Comments Comments: Loss of balance HCTZ (AMILORIDE-HYDROCHLOROTHIAZI*01/19/2009 Comments: blurry vision, fatigue IODINE 08/08/2005 MERCUROCHROME (MERBROMIN) 08/08/2005 5 - Intolerance Comments: Wound becomes infected, inflamed AND hyper- reactionary, pt stated. MERTHIOLATE [Other] 08/08/2005 METOPROLOL 07/17/2013 3 - Cough PREDNISONE 01/19/2009 Comments: messed up stomach patient states is able to take in small divided doses QVAR (BECLOMETHASONE) 03/08/2016 14 - Other: See Comments Comments: Reports coughing, headache, dizziness, nausea, wheezing. tape [Other] 03/28/2006 2 - Rash ADVIL (IBUPROFEN) 08/08/2005 5 - Intolerance Comments: severe headache Date Reviewed: 10/15/2017 Reviewed by: Tiffany De Leon Ma - Fully Assessed Primary Visit Diagnosis:Screening for breast cancer [Z12.31] Other Visit Diagnosis:Pulmonary emphysema, unspecified emphysema type (HCC) [J43.9] Order(s):[facility] SCREENING [[id number]] Order #: [id number] FUTURE fluticasone-salmeterol (ADVAIR DISKUS) 250-50 mcg/dose dsdvInhale 1 Puff as instructed twice daily. Rinse and gargle mouth after use with water.Disp: 3 InhalerRfl: 3 albuterol HFA (VENTOLIN HFA) 90 mcg/actuation inhalerInhale 2 Puffs as instructed every 4 hours as needed for Wheezing/Shortness of Breath.Disp: 3 InhalerRfl: 3 doxazosin (CARDURA) 1 mg tabletTake 0.5 tablets by mouth once daily.Disp: 45 tabletRfl: 3 amLODIPine (NORVASC) 5 mg tabletTake 1 tablet by mouth once daily.Disp: 90 tabletRfl: 1 quinapril (ACCUPRIL) 20 mg tabletTake 1 tablet by mouth twice daily.Disp: 180 tabletRfl: 4 Prescriptions as of 11/18/2017 Sig: FLUTICASONE 250 MCG-SALMETERO* Inhale 1 Puff as instructed t* ALBUTEROL SULFATE HFA 90 MCG/* Inhale 2 Puffs as instructed * DOXAZOSIN 1 MG TABLET Take 0.5 tablets by mouth onc* AMLODIPINE 5 MG TABLET Take 1 tablet by mouth once d* QUINAPRIL 20 MG TABLET Take 1 tablet by mouth twice * BENZONATATE 100 MG CAPSULE Take 1 capsule by mouth three* EMOLLIENT COMBINATION NO.10 T* APPLY 1 APPLICATION TO AFFECT* VITAMIN B COMPLEX ER TABLET,E* Take 1 tablet by mouth once d* VITAMIN E 400 UNIT TABLET Take by mouth. MULTIVITAMIN ORAL Take by mouth. ACETAMINOPHEN 500 MG TABLET Take one(1) tablet every four* Problem List As Of Date 11/18/2017 Noted Resolved Neoplasm of Unspecified Nature of Breast [D49.3] Priority: B More... Essential Hypertension, Benign [I10] INVALID FOR* Priority: A Osteoarth NOS-Unspec [M19.90] INVALID FOR* Malig Yayo Lymph-Axilla/Arm [C77.3] INVALID FOR*07/10/2010 Sebaceous Cyst [L72.3] INVALID FOR*07/10/2010 Unspecified Pleural Effusion [J90] INVALID FOR*07/10/2010 SCREEN (SEE ALSO ADMISSION) CANCER - COLON [Z*INVALID FOR*07/10/2010 Emphysema of lung (HCC) [J43.9] INVALID FOR* Priority: A Tobacco Use Disorder [F17.200] INVALID FOR* POLYP COLON [D12.6] INVALID FOR* Priority: B More... DIVERTICULOSIS [K57.30] INVALID FOR*02/01/2017 Priority: B Routine general medical examination at a health*INVALID FOR*08/01/2012 Class: Chronic More... Routine gynecological examination [Z01.419] INVALID FOR*08/01/2012 Class: Chronic More... RIB LESION, UNCERTAIN BEHAVIOR [M99.9] INVALID FOR*08/14/2016 Priority: A More... Mixed Hyperlipidemia [E78.2] INVALID FOR* Priority: A Back pain [M54.9] INVALID FOR* Priority: B Personal history of breast cancer [Z85.3] INVALID FOR* COPD (chronic obstructive pulmonary disease) (H* 08/14/2016 Lumbar radiculopathy [M54.16] INVALID FOR* DDD (degenerative disc disease), lumbar [M51.36]INVALID FOR* Lumbar scoliosis [M41.9] INVALID FOR* Prescriptions ordered this encounter Disp Refills Start End FLUTICASONE 250 MCG-SALMETEROL 50 MC* 3 In* 3 11/18/2017 Cmt: Failed q allen Route: INHALATION Sig: Inhale 1 Puff as instructed twice daily. Rinse and gargle mouth after use with water. ALBUTEROL SULFATE HFA 90 MCG/ACTUATI* 3 In* 3 11/18/2017 Route: INHALATION Sig: Inhale 2 Puffs as instructed every 4 hours as needed for Wheezing/Shortness of Breath. DOXAZOSIN 1 MG TABLET 45 t* 3 11/18/2017 Route: ORAL Sig: Take 0.5 tablets by mouth once daily. AMLODIPINE 5 MG TABLET 90 t* 1 11/18/2017 Route: ORAL Sig: Take 1 tablet by mouth once daily. QUINAPRIL 20 MG TABLET 180 * 4 11/18/2017 Route: ORAL Sig: Take 1 tablet by mouth twice daily. Medications Discontinued During This Encounter fluticasone-salmeterol (ADVAIR DISKU* 3 In* 3 07/10/2017 11/18/2017 Cmt: Failed q allen Route: INHALATION Sig: Inhale 1 Puff as instructed twice daily. Rinse and gargle mouth after use with water. Disc: Reason for discontinue is not on file. albuterol HFA (VENTOLIN HFA) 90 mcg/* 3 In* 3 05/31/2017 11/18/2017 Route: INHALATION Sig: Inhale 2 Puffs as instructed every 4 hours as needed for Wheezing/Shortness of Breath. Disc: Reason for discontinue is not on file. doxazosin (CARDURA) 1 mg tablet 45 t* 3 02/22/2017 11/18/2017 Sig: TAKE ONE-HALF (1/2) TABLET DAILY Disc: Reason for discontinue is not on file. amLODIPine (NORVASC) 5 mg tablet 90 t* 1 12/10/2016 11/18/2017 Route: ORAL Sig: Take 1 tablet by mouth once daily. Disc: Reason for discontinue is not on file. quinapril (ACCUPRIL) 20 mg tablet 180 * 4 08/31/2016 11/18/2017 Route: ORAL Sig: Take 1 tablet by mouth twice daily. Disc: Reason for discontinue is not on file. Encounter Status:Closed by JUDY LAND LPN on 11/18/17 XR CHEST 2V FRONTAL/LAT Observed: 10/15/2017 Status: F Source: [place] 10:17 AM [facility] RE[facility] * * *Final Report* * * DATE OF EXAM: Oct 15 2017 10:17AM WOX [id number] - XR CHEST 2V FRONTAL/LAT / PROCEDURE REASON: Cough * * * * Physician Interpretation * * * * EXAMINATION: CHEST RADIOGRAPH (2 VIEW FRONTAL and LATERAL) Clinical History: Cough M: XC2_3 Comparison: Comparison is made to prior chest dated 02/13/2016 and dating back to 07/10/2013 RESULT: Lines, tubes, and devices: None. Lungs and pleura: Chronic interstitial lung changes with left midlung fibrocalcific plaque are stable. There is no focal consolidation or acute pleural process. There is no overt pulmonary edema. Cardiomediastinal silhouette: The cardiac, mediastinal and hilar shadows are unchanged. Other: The visualized bony structures are intact IMPRESSION: Stable chest. No acute cardiopulmonary process. [employer] Consultant: VICTORIANO Transcribe Date/Time: Oct 15 2017 10:48A Dictated by : ELSA HERNANDEZ MD This examination was interpreted and the report reviewed and electronically signed by: ELSA HERNANDEZ MD on Oct 15 2017 10:50AM EST [id number] Observed: 10/15/2017 Status: COMPLETED Source: [place] 10:09 AM [facility] REPOSITORY HNO ID: [id number] Author: Ruth Ann Mills (Tech) Service: (none) Author Type: Sericulturist Type: Progress Notes Filed: 10/15/2017 10:17 AM Note Text: Radiology Service Progress Note PATIENT NAME: Cecile Vallejo DATE OF SERVICE: October 15, 2017 TIME: 10:09 AM PATIENT IDENTITY VERIFICATION COMPLETED USING TWO (2) METHODS: Patient confirmed name verbally and Date of . PATIENT GENDER DATA: Female. status: : No status: NO. PATIENT RELEVANT IMPLANT DATA REVIEWED: Not Applicable RADIOLOGY DEPARTMENT: General X-ray: Exam(s) Completed: Chest X-Ray PERIPHERAL IV DATA: Not applicable SIGNED BY: Ruth Ann Montero October 15, 2017 10:09 AM PROGRESS Observed: 10/15/2017 Status: COMPLETED Source: [place] 9:37 AM [facility] REPOSITORY HNO ID: [id number] Author: Juan Mcdaniel Service: (none) Author Type: Physician Type: Progress Notes Filed: 10/15/2017 9:51 AM Note Text: Patient presents with: Cough HPI: Patient presents today for office visit for Patient presents today complaining of increased cough. Feels similar to when she had walking pneumonia. Duration: since Saturday Cough is productive:YES, white. Fever: :YES. Shortness of breath:YES. Sore throat :No. Ear Pain :No. Chest Pain :No. Previous treatments tried: using advair and delsym. . MEDICATIONS: Current Outpatient Prescriptions: fluticasone-salmeterol (ADVAIR DISKUS) 250-50 mcg/dose dsdv Inhale 1 Puff as instructed twice daily. Rinse and gargle mouth after use with water. albuterol HFA (VENTOLIN HFA) 90 mcg/actuation inhaler Inhale 2 Puffs as instructed every 4 hours as needed for Wheezing/Shortness of Breath. emollient combination (PRUTECT) emul APPLY 1 APPLICATION TO AFFECTED AREA NEEDED doxazosin (CARDURA) 1 mg tablet TAKE ONE-HALF (1/2) TABLET DAILY amLODIPine (NORVASC) 5 mg tablet Take 1 tablet by mouth once daily. quinapril (ACCUPRIL) 20 mg tablet Take 1 tablet by mouth twice daily. B Complex Vitamins (B-50 COMPLEX) TbER Take 1 tablet by mouth once daily. Vitamin E 400 unit tab Take by mouth. MULTIVITAMIN ORAL Take by mouth. ACETAMINOPHEN 500 MG TAB Take one(1) tablet every four(4) hours prn. No current facility-administered medications for this visit. ALLERGIES: ALLERGIES Allergen Reactions - Sulfa (Sulfonamide * Rash SOME SULFA DRUGS Specifically reacted to topical sulfa cream, pt stated. - Codeine Severe headaches - Combivent [Ipratrop* Swelling - Doxycycline Intolerance Stomach pains..it makes me double over, pt stated. - Dulera [Mometasone-* Intolerance tachycardia - Gabapentin Other: See Comments Loss of balance - Hctz [Amiloride-Hyd* blurry vision, fatigue - Iodine - Mercurochrome [Merb* Intolerance Wound becomes infected, inflamed AND hyper-reactionary, pt stated. - Merthiolate [Other] - Metoprolol Cough - Prednisone messed up stomach patient states is able to take in small divided doses - Qvar [Beclomethason* Other: See Comments Reports coughing, headache, dizziness, nausea, wheezing. 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 - Unspecified essential hypertension PAST SURGICAL HISTORY Procedure Laterality Date - BREAST BIOPSY W/ULTRASOUND GUIDANCE 06/10/14 U/S needle core upper inner right breast - COLONOS W/REM POLYP SNARE 03/04/09 Sigmoid polyp and diverticulosis - LIGATE FALLOPIAN TUBE 1987 Tubal ligation - MASTECTOMY 1993 Left - PAST SURGICAL HISTORY OF 2003 right lumpectomy - REM LESION NEC,HND,SCAL 1.1-2.0CM 03/13/06 Infected jacqueline cyst posterior neck - REMOVE PERM CANNULA/CATHETER 07/31/06 Remove right IJ port FAMILY HISTORY Problem Relation Age of Onset - Cancer Sister uterine or ovarian (pt not sure) - Coronary Artery Disease Mother - Cancer Brother , brain cancer Social History Marital status: Spouse name: maria dolores Years of education: 11 Number of children: 3 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 Offered assistance to help quit if patient desires. Reviewed current medications, allergies, past medical history, surgical history, family history and social history today. REVIEW OF SYSTEMS GI: No nausea, vomiting, or diarrhea All other reviewed and negative other than HPI. HEALTH MAINTENANCE: Reviewed health maintenance issues today and recommended the following in detail. There are no preventive care reminders to display for this patient. VITALS: BP 138/70 Pulse 98 Temp 38.7 ?C (101.6 ?F) (Left Tympanic) Resp 20 Wt 82.1 kg (181 lb) SpO2 95% BMI 33.92 kg/m2 Last 4 Encounter Wt Readings: Date: Wt: 10/15/2017 82.1 kg (181 lb) 05/31/2017 82.7 kg (182 lb 6.4 oz) 11/01/2016 85.1 kg (187 lb 9.6 oz) 09/27/2016 85.3 kg (188 lb) PHYSICAL EXAMINATION: General appearance: Well appearing, alert, in no acute distress, well-hydrated, well nourished. Skin: Skin color, texture, turgor normal, no suspicious rashes or lesions Head: Normocephalic, no masses, lesions, tenderness or abnormalities Eyes: Anicteric sclera. Pupils are equally round and reactive to light. Extraocular movements are intact. Ears: External ears normal, canals clear Nose/Sinuses: Nares normal, septum midline, mucosa normal, no drainage or sinus tenderness Oropharynx: Lips, mucosa, and tongue normal, teeth and gums normal, oropharynx normal Neck: Supple, no adenopathy; thyroid symmetric, normal size, no bruits Lungs: Lungs clear to auscultation. No wheezing, rhonchi, rales Heart: RRR without murmur, gallop, or rubs. No ectopy Abdomen: Normal abdominal exam, Abdomen soft, non-tender. Bowel sounds normal. No masses, organomegaly Moving air well and speaking in full sentences. ASSESSMENT/PLAN: 1. Cough - ICD9: 786.2, ICD10: R05 (primary diagnosis) - could be flu. Treat empirically. Hold on antibiotics unless worsens or does not improve. Check xray. - Red flags for re-assessment reviewed with patient in detail. - Discussed risks and benefits of new medication with the patient. Advised them to call if any side effects or questions. - Call if symptoms worsen at all or if not better in one to two weeks - XR CHEST 2V FRONTAL/LAT - OSELTAMIVIR 75 MG CAPSULE - BENZONATATE 100 MG CAPSULE 2. Essential hypertension, benign - ICD9: 401.1, ICD10: I10 - good control - Continue current medication(s) - Goal of BP <140/90 3. Tobacco use disorder - ICD9: 305.1, ICD10: F17.200 - Cessation encouraged. - Physiologic and physical aspects of tobacco addiction as well as strategies for quitting were discussed. - Counseling was given focusing on the harmful effects of this addiction especially given the patient's medical condition(s) which will be worsened because of the chemicals in tobacco. 4. Pulmonary emphysema, unspecified emphysema type (HCC) - ICD9: 492.8, ICD10: J43.9 Juan Mcdaniel MD RTO prn. CNOV Observed: 10/15/2017 Status: COMPLETED Source: [place] 9:20 AM [facility] REPOSITORY Office Visit (FAMPWS) LAWRENCECECILE Cristofer ([id number]) 1945 F Date Time Provider Department 10/15/17 9:20 AM [facility]CD[facility] During your visit today, we recorded the following information about you: Temperature Pulse Respiration Blood pressure 101.6 degrees 98/minute 20/minute 138/70 Weight 82.1 kg Juan Mcdaniel MD 10/15/2017 9:51 AM Signed Patient presents with: Cough HPI: Patient presents today for office visit for Patient presents today complaining of increased cough. Feels similar to when she had ANDquot;walking pneumonia.ANDquot; Duration: since Saturday Cough is productive:YES, white. Fever: :YES. Shortness of breath:YES. Sore throat :No. Ear Pain :No. Chest Pain :No. Previous treatments tried: using advair and delsym. . MEDICATIONS: Current Outpatient Prescriptions: fluticasone-salmeterol (ADVAIR DISKUS) 250-50 mcg/dose dsdv Inhale 1 Puff as instructed twice daily. Rinse and gargle mouth after use with water. albuterol HFA (VENTOLIN HFA) 90 mcg/actuation inhaler Inhale 2 Puffs as instructed every 4 hours as needed for Wheezing/Shortness of Breath. emollient combination (PRUTECT) emul APPLY 1 APPLICATION TO AFFECTED AREA NEEDED doxazosin (CARDURA) 1 mg tablet TAKE ONE-HALF (1/2) TABLET DAILY amLODIPine (NORVASC) 5 mg tablet Take 1 tablet by mouth once daily. quinapril (ACCUPRIL) 20 mg tablet Take 1 tablet by mouth twice daily. B Complex Vitamins (B-50 COMPLEX) TbER Take 1 tablet by mouth once daily. Vitamin E 400 unit tab Take by mouth. MULTIVITAMIN ORAL Take by mouth. ACETAMINOPHEN 500 MG TAB Take one(1) tablet every four(4) hours prn. No current facility-administered medications for this visit. ALLERGIES: ALLERGIES Allergen Reactions - Sulfa (Sulfonamide * Rash SOME SULFA DRUGS Specifically reacted to topical sulfa cream, pt stated. - Codeine Severe headaches - Combivent [Ipratrop* Swelling - Doxycycline Intolerance ANDquot;Stomach pains..it makes me double over,ANDquot; pt stated. - Dulera [Mometasone-* Intolerance tachycardia - Gabapentin Other: See Comments Loss of balance - Hctz [Amiloride-Hyd* blurry vision, fatigue - Iodine - Mercurochrome [Merb* Intolerance Wound becomes infected, inflamed ANDamp; ANDquot;hyper-reactionary,ANDquot; pt stated. - Merthiolate [Other] - Metoprolol Cough - Prednisone ANDquot;messed up stomachANDquot; patient states is able to take in small divided doses - Qvar [Beclomethason* Other: See Comments Reports coughing, headache, dizziness, nausea, wheezing. 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 - Unspecified essential hypertension PAST SURGICAL HISTORY Procedure Laterality Date - BREAST BIOPSY W/ULTRASOUND GUIDANCE 06/10/14 U/S needle core upper inner right breast - COLONOS W/REM POLYP SNARE 03/04/09 Sigmoid polyp and diverticulosis - LIGATE FALLOPIAN TUBE 1987 Tubal ligation - MASTECTOMY 1993 Left - PAST SURGICAL HISTORY OF 2003 right lumpectomy - REM LESION NEC,HND,SCAL 1.1-2.0CM 03/13/06 Infected jacqueline cyst posterior neck - REMOVE PERM CANNULA/CATHETER 07/31/06 Remove right IJ port FAMILY HISTORY Problem Relation Age of Onset - Cancer Sister uterine or ovarian (pt not sure) - Coronary Artery Disease Mother - Cancer Brother , brain cancer Social History Marital status: Spouse name: maria dolores Years of education: 11 Number of children: 3 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 Offered assistance to help quit if patient desires. Reviewed current medications, allergies, past medical history, surgical history, family history and social history today. REVIEW OF SYSTEMS GI: No nausea, vomiting, or diarrhea All other reviewed and negative other than HPI. HEALTH MAINTENANCE: Reviewed health maintenance issues today and recommended the following in detail. There are no preventive care reminders to display for this patient. VITALS: BP 138/70 Pulse 98 Temp 38.7 ?C (101.6 ?F) (Left Tympanic) Resp 20 Wt 82.1 kg (181 lb) SpO2 95% BMI 33.92 kg/m2 Last 4 Encounter Wt Readings: Date: Wt: 10/15/2017 82.1 kg (181 lb) 05/31/2017 82.7 kg (182 lb 6.4 oz) 11/01/2016 85.1 kg (187 lb 9.6 oz) 09/27/2016 85.3 kg (188 lb) PHYSICAL EXAMINATION: General appearance: Well appearing, alert, in no acute distress, well-hydrated, well nourished. Skin: Skin color, texture, turgor normal, no suspicious rashes or lesions Head: Normocephalic, no masses, lesions, tenderness or abnormalities Eyes: Anicteric sclera. Pupils are equally round and reactive to light. Extraocular movements are intact. Ears: External ears normal, canals clear Nose/Sinuses: Nares normal, septum midline, mucosa normal, no drainage or sinus tenderness Oropharynx: Lips, mucosa, and tongue normal, teeth and gums normal, oropharynx normal Neck: Supple, no adenopathy; thyroid symmetric, normal size, no bruits Lungs: Lungs clear to auscultation. No wheezing, rhonchi, rales Heart: RRR without murmur, gallop, or rubs. No ectopy Abdomen: Normal abdominal exam, Abdomen soft, non-tender. Bowel sounds normal. No masses, organomegaly Moving air well and speaking in full sentences. ASSESSMENT/PLAN: 1. Cough - ICD9: 786.2, ICD10: R05 (primary diagnosis) - could be flu. Treat empirically. Hold on antibiotics unless worsens or does not improve. Check xray. - Red flags for re-assessment reviewed with patient in detail. - Discussed risks and benefits of new medication with the patient. Advised them to call if any side effects or questions. - Call if symptoms worsen at all or if not better in one to two weeks - XR CHEST 2V FRONTAL/LAT - OSELTAMIVIR 75 MG CAPSULE - BENZONATATE 100 MG CAPSULE 2. Essential hypertension, benign - ICD9: 401.1, ICD10: I10 - good control - Continue current medication(s) - Goal of BP ANDlt;140/90 3. Tobacco use disorder - ICD9: 305.1, ICD10: F17.200 - Cessation encouraged. - Physiologic and physical aspects of tobacco addiction as well as strategies for quitting were discussed. - Counseling was given focusing on the harmful effects of this addiction especially given the patient's medical condition(s) which will be worsened because of the chemicals in tobacco. 4. Pulmonary emphysema, unspecified emphysema type (HCC) - ICD9: 492.8, ICD10: J43.9 Juan Mcdaniel MD RTO prn. Referring Provider: SELF [[id number]] Allergies As of Date: 10/15/2017 Noted Allergy Reaction SULFA (SULFONAMIDE ANTIBIOTICS) 08/08/2005 2 - Rash Comments: SOME SULFA DRUGS Specifically reacted to topical sulfa cream, pt stated. CODEINE 03/05/2008 Comments: Severe headaches COMBIVENT (IPRATROPIUM-ALBUTEROL) 08/25/2012 7 - Swelling DOXYCYCLINE 08/08/2005 5 - Intolerance Comments: Stomach pains..it makes me double over, pt stated. DULERA (MOMETASONE-FORMOTEROL) 09/03/2012 5 - Intolerance Comments: tachycardia GABAPENTIN 06/16/2014 14 - Other: See Comments Comments: Loss of balance HCTZ (AMILORIDE-HYDROCHLOROTHIAZI*01/19/2009 Comments: blurry vision, fatigue IODINE 08/08/2005 MERCUROCHROME (MERBROMIN) 08/08/2005 5 - Intolerance Comments: Wound becomes infected, inflamed AND hyper- reactionary, pt stated. MERTHIOLATE [Other] 08/08/2005 METOPROLOL 07/17/2013 3 - Cough PREDNISONE 01/19/2009 Comments: messed up stomach patient states is able to take in small divided doses QVAR (BECLOMETHASONE) 03/08/2016 14 - Other: See Comments Comments: Reports coughing, headache, dizziness, nausea, wheezing. tape [Other] 03/28/2006 2 - Rash ADVIL (IBUPROFEN) 08/08/2005 5 - Intolerance Comments: severe headache Date Reviewed: 10/15/2017 Reviewed by: Tiffany De Leon Ma - Fully Assessed Reason for Visit: Cough [28] Primary Visit Diagnosis:Cough [R05] Other Visit Diagnoses:Essential hypertension, benign [I10] Tobacco use disorder [F17.200] Pulmonary emphysema, unspecified emphysema type (HCC) [J43.9] Order(s):XR CHEST 2V FRONTAL/LAT [0483097] Order #: [id number] FUTURE oseltamivir (TAMIFLU) 75 mg capsuleTake 1 capsule by mouth twice daily for 5 days.Disp: 10 capsuleRfl: 0 benzonatate (TESSALON PERLE) 100 mg capsuleTake 1 capsule by mouth three times daily as needed for Cough.Disp: 20 capsuleRfl: 0 Prescriptions as of 10/15/2017 Sig: FLUTICASONE 250 MCG-SALMETERO* Inhale 1 Puff as instructed t* ALBUTEROL SULFATE HFA 90 MCG/* Inhale 2 Puffs as instructed * EMOLLIENT COMBINATION NO.10 T* APPLY 1 APPLICATION TO AFFECT* DOXAZOSIN 1 MG TABLET TAKE ONE-HALF (1/2) TABLET DA* AMLODIPINE 5 MG TABLET Take 1 tablet by mouth once d* QUINAPRIL 20 MG TABLET Take 1 tablet by mouth twice * VITAMIN B COMPLEX ER TABLET,E* Take 1 tablet by mouth once d* VITAMIN E 400 UNIT TABLET Take by mouth. MULTIVITAMIN ORAL Take by mouth. ACETAMINOPHEN 500 MG TABLET Take one(1) tablet every four* OSELTAMIVIR 75 MG CAPSULE Take 1 capsule by mouth twice* BENZONATATE 100 MG CAPSULE Take 1 capsule by mouth three* Problem List As Of Date 10/15/2017 Noted Resolved Neoplasm of Unspecified Nature of Breast [D49.3] Priority: B More... Essential Hypertension, Benign [I10] INVALID FOR* Priority: A Osteoarth NOS-Unspec [M19.90] INVALID FOR* Malig Yayo Lymph-Axilla/Arm [C77.3] INVALID FOR*07/10/2010 Sebaceous Cyst [L72.3] INVALID FOR*07/10/2010 Unspecified Pleural Effusion [J90] INVALID FOR*07/10/2010 SCREEN (SEE ALSO ADMISSION) CANCER - COLON [Z*INVALID FOR*07/10/2010 Emphysema of lung (HCC) [J43.9] INVALID FOR* Priority: A Tobacco Use Disorder [F17.200] INVALID FOR* POLYP COLON [D12.6] INVALID FOR* Priority: B More... DIVERTICULOSIS [K57.30] INVALID FOR*02/01/2017 Priority: B Routine general medical examination at a health*INVALID FOR*08/01/2012 Class: Chronic More... Routine gynecological examination [Z01.419] INVALID FOR*08/01/2012 Class: Chronic More... RIB LESION, UNCERTAIN BEHAVIOR [M99.9] INVALID FOR*08/14/2016 Priority: A More... Mixed Hyperlipidemia [E78.2] INVALID FOR* Priority: A Back pain [M54.9] INVALID FOR* Priority: B Personal history of breast cancer [Z85.3] INVALID FOR* COPD (chronic obstructive pulmonary disease) (H* 08/14/2016 Lumbar radiculopathy [M54.16] INVALID FOR* DDD (degenerative disc disease), lumbar [M51.36]INVALID FOR* Lumbar scoliosis [M41.9] INVALID FOR* Prescriptions ordered this encounter Disp Refills Start End OSELTAMIVIR 75 MG CAPSULE 10 c* 0 10/15/2017 10/20/2017 Route: ORAL Sig: Take 1 capsule by mouth twice daily for 5 days. BENZONATATE 100 MG CAPSULE 20 c* 0 10/15/2017 Route: ORAL Sig: Take 1 capsule by mouth three times daily as needed for Cough. Encounter Status:Closed by JUAN MCDANIEL MD on 10/15/17 ALLERGIES ALLERGIES DATE TYPE / CODE NAME / CODE REACTION SEVERITY SOURCE 09/03/20 Drug ipratropium Swelling Unknown [place] [facility] Allergy/386046353 bromide/[id number] [facility] (SNOMED CT) (RXNORM) Hospital Repository 09/03/20 Drug albuterol Swelling Unknown [place] [facility] Allergy/760260374 sulfate/Q330694751 [facility] (SNOMED CT) (RXNORM) Hospital Repository 09/03/20 Drug formoterol Other Unknown [place] 18 Allergy/149212840 fumarate/X26554048 [facility] (SNOMED CT) (RXNO) Hospital Repository 09/03/20 Drug Sulfa (Sulfonamide Rash Unknown [place] 18 Allergy/475509435 Antibiotics)/F0010 [facility] (SNOMED CT) [address]152(RXNORM) Hospital Repository 09/03/20 Drug iodine/Y511260274( Itching Unknown [place] 18 Allergy/656484168 RXNORM) [facility] (SNOMED CT) Hospital Repository 09/03/20 Drug codeine/[id number] doesn't remember Unknown [place] 18 Allergy/143489257 (RXNORM) [facility] (SNOMED CT) Hospital Repository 09/03/20 Drug prednisone/K541669 Abd Unknown [place] 18 Allergy/384124017 164(RXNORM) cramps/diarrhea [facility] (SNOMED CT) Hospital Repository 09/03/20 Drug mometasone Other Unknown [place] 18 Allergy/491306331 furoate/Y711646576 [facility] (OMED CT) (RXNORM) Hospital Repository 09/03/20 Drug hydrochlorothiazid Other Unknown [place] 18 Allergy/175226481 e/F889202279([facility] ([facility] ) Hospital Repository 09/03/20 Drug ibuprofen/Y4035274 Other Unknown [place] 18 Allergy/425995596 77(RXNORM) [facility] (SNOMED CT) Hospital Repository 09/03/20 Drug doxycycline/M89048 Abd Unknown [place] 18 Allergy/881173143 2748(RXNORM) cramps/diarrhea [facility] (OMED CT) Hospital Repository 09/03/20 Drug merbromin/Y8943342 Other Unknown [place] 18 Allergy/641325941 29(RXNORM) [facility] (SNOMED CT) Hospital Repository 09/03/20 Drug benzalkonium Other Unknown [place] 18 Allergy/805971466 chloride/G03123606 [facility] (SNOMED CT) 1(RXNORM) Hospital Repository 09/03/20 Drug metoprolol/N969921 Laryngospasms Unknown [place] 18 Allergy/415224796 627(RXNORM) [facility] (SNOMED CT) Hospital Repository 09/03/20 Drug beclomethasone/F00 COUGHING Unknown [place] 18 Allergy/198486239 8912399(RXNORM) [facility] (SNOMED CT) Hospital Repository 09/03/20 Drug oseltamivir/O23863 uterine pain Unknown [place] 18 Allergy/970988997 7918(RXNORM) [facility] (SNOMED CT) Hospital Repository 09/03/20 Miscellaneous PLASTIC TAPE Rash Unknown [place] 18 Allergy/061231112 [facility] (SNOMED CT) Hospital Repository 01/17/20 Drug fluticasone/Q05586 HEADACHE Unknown [place] 18 Allergy/443205325 4952(RXNORM) [facility] (SNOMED CT) Hospital Repository 12/31/19 DRUG OSELTAMIVIR INTOLERANCE [place] [facility] INGREDI/[id number] [facility] (SNOMED [facility]) [place] Repository 03/08/20 DRUG BECLOMETHASONE OTHER: SEE C [place] 16 INGREDI/[id number] [facility] (SNOMED CT) [place] Repository 06/16/20 DRUG GABAPENTIN OTHER: SEE C [place] [facility] INGREDI/[id number] [facility] (SNOMED CT) [place] Repository 07/17/20 DRUG METOPROLOL COUGH [place] [facility] INGREDI/[id number] [facility] (SNOMED CT) [place] Repository 09/03/20 DRUG/[id number](SN MOMETASONE-FORMOTE INTOLERANCE [place] [address]) ROL [facility] [place] Repository 08/25/20 DRUG/[id number](SN IPRATROPIUM-ALBUTE SWELLING [place] [address]) ROL [facility] [place] Repository 01/20/20 DRUG/[id number](SN AMILORIDE-HYDROCHL [place] [address]) OROTHIAZIDE [facility] [place] Repository 01/20/20 DRUG PREDNISONE [place] [facility] INGREDI/[id number] [facility] (SNOMED CT) [place] Repository 03/05/20 DRUG CODEINE [place] 08 INGREDI/[id number] [facility] (SNOMED CT) [place] Repository 03/28/20 Miscellaneous OTHER RASH [place] 06 Allergy/240761527 [facility] (SNOMED CT) [place] Repository 08/08/20 Drug SULFA (SULFONAMIDE RASH [facility] [place] 05 Class/606528816(S ANTIBIOTICS) [facility] NOMED CT) [place] Repository 08/08/20 DRUG DOXYCYCLINE INTOLERANCE [place] 05 INGREDI/[id number] [facility] (SNOMED CT) [place] Repository 08/08/20 DRUG IODINE [place] 05 INGREDI/[id number] [facility] (SNOMED CT) [place] Repository 08/08/20 DRUG MERBROMIN INTOLERANCE [place] 05 INGREDI/[id number] [facility] (SNOMED CT) [place] Repository 08/08/20 Miscellaneous OTHER [place] 05 Allergy/934306420 [facility] (SNOMED CT) [place] Repository 08/08/20 DRUG IBUPROFEN INTOLERANCE [place] 05 INGREDI/[id number] [facility] Main (SNOMED CT) [place] Repository ENCOUNTERS ENCOUNTERS ADMIT/DISCHARGE ACCOUNT NUMBER ADMITTING ENCOUNTER LOCATION SOURCE CLASS 10/06/2018/10/06/20 [id number] Ambulatory [address] Main [place] Repository 10/06/2018/10/06/20 [id number] Ambulatory [address] [facility] [place] Repository 10/03/2018/10/03/20 [id number] Ambulatory [address] [facility] [place] Repository 10/03/2018/10/03/20 [id number] Ambulatory [address] [facility] [place] Repository 09/25/2018/09/25/20 [id number] Ambulatory [address] [place] Repository 09/16/2018 [id number] Ambulatory [facility] ding:[place] Repository 09/03/2018/09/03/20 [id number] Ambulatory [facility]MSBuilding: [address] Repository 08/28/2018/09/03/20 [id number] Ambulatory [address] [place] Repository 07/30/2018 [id number] Ambulatory [facility] [place] Repository 07/21/2018 [id number] Ambulatory [facility] ding:[facility] Repository 07/17/2018/07/18/20 [id number] Ambulatory [address] [place] Repository 07/17/2018 [id number] Ambulatory [facility] Repository 07/16/2018/07/16/20 [id number] Ambulatory [address] [facility] [place] Repository 07/16/2018/07/17/20 [id number] Ambulatory [address] Main [place] Repository 07/15/2018/07/15/20 [id number] Ambulatory [address] Main [place] Repository 07/15/2018/07/15/20 [id number] Ambulatory [address] Main [place] Repository 07/04/2018/07/08/20 [id number] Ambulatory [address] [place] Repository 07/03/2018/07/03/20 [id number] Ambulatory [address] [place] Repository 06/27/2018/06/30/20 [id number] Ambulatory [address] Repository 06/26/2018/06/26/20 [id number] Ambulatory [address] Repository 06/26/2018/06/26/20 [id number] Ambulatory [address] Repository 06/24/2018/06/25/20 [id number] Ambulatory [address] Repository 06/18/2018/06/19/20 [id number] Ambulatory [address] Repository 06/11/2018/06/11/20 [id number] Ambulatory BMSBuilding: [place] 18 BMS.[facility] Repository 05/09/2018 [id number] Ambulatory [facility] ding:CT Repository 05/07/2018 [id number] Ambulatory [facility] ding:LAB Repository 05/05/2018/05/05/20 [id number] Ambulatory [address] Repository 05/01/2018/05/01/20 [id number] Ambulatory BMSBuilding: [place] 18 BMS.[facility] Repository 04/28/2018/04/29/20 [id number] Ambulatory [address] Repository 04/28/2018/04/28/20 [id number] Ambulatory [address] Repository 04/16/2018 [id number] Ambulatory [facility] ding:CT Repository 04/11/2018/04/11/20 [id number] Ambulatory [address] Repository 04/09/2018/04/09/20 [id number] Ambulatory BMSBuilding: [place] 18 BMS.[facility] Repository 04/08/2018/04/09/20 [id number] Ambulatory [address] Repository 04/04/2018 [id number] Ambulatory [facility] Repository 04/04/2018/04/04/20 [id number] Ambulatory [address] Repository 04/04/2018/04/07/20 [id number] Ambulatory [address] Repository 04/04/2018 [id number] Ambulatory [facility] Repository 03/13/2018 [id number] Ambulatory [facility] ding:CT Repository 03/07/2018 [id number] Ambulatory [facility] ding:LAB Repository 03/04/2018/03/04/20 [id number] Ambulatory BMSBuilding: [place] 18 BMS.[facility] Repository 02/03/2018 [id number] Ambulatory [facility] ding:ONC Repository 01/31/2018 [id number] Ambulatory BMSBuilding: [facility] Repository 01/30/2018 [id number] Ambulatory [facility] ding:PSN Repository 01/28/2018/01/30/20 [id number] Ambulatory [address] Repository 01/27/2018 [id number] Ambulatory [facility] ding:PSN Repository 01/27/2018 [id number] Ambulatory BMSBuilding: [facility] Repository 01/20/2018/01/21/20 [id number] Ambulatory BMSBuilding: [place] 18 BMS.[facility] Repository 01/16/2018/01/17/20 [id number] Ambulatory BMSBuilding: [place] 18 BMS.[facility] Repository 01/09/2018/01/14/20 [id number] Ambulatory [address] Repository 12/31/2017/01/03/20 [id number] Ambulatory BMSBuilding: [place] 18 [facility] Repository 12/30/2017/01/03/20 [id number] [place], Inpatient [place] [facility] : [id number]: 1 12/30/2017 [id number] [place], Ambulatory BMSBuilding: [place] Ghasem BMS.[facility] Repository 12/30/2017 [id number] [place], Ambulatory BMSBuilding: [place] Ghasem BMS.[facility] Repository 12/30/2017 [id number] [place], Ambulatory BMSBuilding: [place] Ghasem BMS.[facility] Repository 12/30/2017 [id number] [place], Ambulatory BMSBuilding: [place] Ghasem BMS.CF.[facility] Repository 12/30/2017 [id number] [place], Ambulatory BMSBuilding: [place] Ghasem [facility] Repository 12/30/2017 [id number] [place], Ambulatory BMSBuilding: [place] Ghasem BMS.CF.[facility] Repository 12/30/2017 [id number] [place], Ambulatory BMSBuilding: [place] Ghasem BMS.[facility] Repository 12/30/2017 [id number] [place], Ambulatory BMSBuilding: [place] Ghasem BMS.[facility] Repository 12/30/2017/01/03/20 [id number] Ambulatory BMSBuilding: [place] 18 [facility] Repository 12/30/2017/01/03/20 [id number] Ambulatory BMSBuilding: [place] 18 BMS.CF.[facility] Repository 12/30/2017/01/01/20 [id number] Ambulatory [address] Repository 10/15/2017/10/15/20 [id number] Ambulatory [address] Repository 10/15/2017/10/15/20 [id number] Ambulatory [address] Repository PAYERS PAYERS ENCOUNTER GUARANTOR PAYER SUBSCRIBER SOURCE 09/16/2018 CECILE L Primary CECILE L [place] [id number] Insurance:MEDICARE ROCKHOLDDOB: [facility] [id number] Number: Repository [address]Txq: (654) [id number] [phone] () Date:2018-09-02 09/16/2018 Secondary CECILE L [place] Insurance:CIGNA [facility] ROCKHOLDDOB: Community SUPPLEMENT [id number] of [facility] Repository Number: [id number] Date:1910-27-87PVSMNM [facility] [address] [place] [address]RU: 09/16/2018 Tertiary NOT GIVENUNK [place] Insurance:SELF PAY [facility] Number: Effective Repository Date:2018-09-02 09/03/2018 CECILE L Primary CECILE L [place] [id number] Insurance:MEDICARE ROCKHOLDDOB: [facility] [id number] Number: Repository [address]Ksr: (167) [id number] [phone] (HP) Date:2018-06-11 09/03/2018 Secondary CECILE L [place] Insurance:CIGNA [facility]DD[facility]: Community SUPPLEMENT [id number] of [facility] Hospital and [facility] Repository Number: [id number] Date:9202-06-60AFDMCD [employer] [address] [address]N, [place] [address]MV: 09/03/2018 Tertiary NOT GIVENUNK [place] Insurance:SELF PAY [facility] Number: Effective Repository Date:2018-06-11 07/21/2018 CECILE L Primary CECILE L [place] [id number] Insurance:MEDICARE ROCKHOLDDOB: [facility] [id number], [place] Number: Repository [address]Zur: (247) [id number] [phone] (HP) Date:2018-07-18 07/21/2018 Secondary CECILE L [place] Insurance:[facility]ENTER[facility]OLDDOB: Community SUPPLEMENT [id number] of [facility] Hospital and Clinics Repository Number: [id number] Date:9259-76-33EDTHIU [employer] [address] [address]QVIKZV, [place] [address]RG: 07/21/2018 Tertiary NOT GIVENUNK [place] Insurance:SELF PAY [facility] Number: Effective Repository Date:2018-07-18 07/17/2018 Cecile L Primary [facility] Insurance:MedicarePol SmithlandholdDOB: System [id number] icy Number: Effective [id number] [facility] Date: [place], [place] [address]Whx: () 07/17/2018 Secondary Cecile L [facility] Insurance:MedicarePol SmithlandholdDOB: System icy Number: Effective [id number] Repository Date: 07/17/2018 Tertiary Cecile L [facility] RockholdDOB: System Number: Effective [id number] Repository Date: 06/11/2018 CECILE L Primary CECILE L [place] [id number] Insurance:MEDICARE ROCKHOLDDOB: [facility] [id number], [place] Number: Repository [address]Ywh: 330 [id number] [phone] () Date:2018-04-09 06/11/2018 Secondary CECILE L [place] Insurance:[facility] SUPPLEMENT [id number] of [facility] Hospital and [facility] Repository Number: [id number] Date:3558-96-49PYZMSZ [address] [address] [address]DWDJAK, [place] [address]ZI: 06/11/2018 Tertiary NOT GIVENUNK [place] Insurance:SELF PAY [facility] Number: Effective Repository Date:2018-06-04 05/09/2018 CECILE L Primary CECILE L [place] [id number] Insurance:MEDICARE MANSFIELDHOLDDOB: [facility] [id number] Hospital [facility] Number: Repository [address]Fto: 330 [id number] [phone] () Date:2018-05-01 05/09/2018 Secondary CECILE L [place] Insurance:[facility]OSPITALDOB: [facility] SUPPLEMENT [id number] of [facility] Hospital [facility] Repository Number: [id number] Date:5488-33-05QCAZNK [employer] [address] [address]UCSHGR, [place] [address]YV: 05/09/2018 Tertiary NOT GIVENUNK [place] Insurance:SELF PAY [facility] Number: Effective Repository Date:2018-05-01 05/07/2018 CECILE L Primary CECILE L [place] [id number] Insurance:MEDICARE ROCKHOLDDOB: [facility] [id number] Hospital District, [place] Number: Repository [address]Qhv: 330 [id number] [phone] (HP) Date:2018-05-07 05/07/2018 Secondary CECILE L [place] Insurance:VIVIAN LUONGB: Community SUPPLEMENT [id number] of [facility] Hospital and Clinics Repository Number: [id number] Date:6484-10-43NGJBCR [employer] [address] [address] [address]OPTOBQ, [place] [address]ED: 05/07/2018 Tertiary NOT GIVENUNK [place] Insurance:SELF PAY [facility] Number: Effective Repository Date:2018-05-07 05/01/2018 CECILE L Primary CECILE L [place] [id number] Insurance:MEDICARE ROCKHOLDDOB: [facility] [id number] Regional MedCenter [place] Number: Repository [address]Ayy: 330 [id number] [phone] (HP) Date:2018-04-29 05/01/2018 Secondary CECILE L [place] Insurance:VIVIAN LUONGB: Community SUPPLEMENT [id number] of [facility] Hospital [facility] Repository Number: [id number] Date:5591-48-25YPCXNR [employer] [address] [address]FHYAGJ, [place] [address]CN: 05/01/2018 Tertiary NOT GIVENUNK [place] Insurance:SELF PAY [facility] Number: Effective Repository Date:2018-04-29 04/16/2018 CECILE L Primary CECILE L [place] [id number] Insurance:MEDICARE ROCKHOLDDOB: [facility] [id number] Regional MedCenter [place] Number: Repository [address]Fue: 330 [id number] [phone] (HP) Date:2018-04-04 04/16/2018 Secondary CECILE L [place] Insurance:VIVIAN LUONGB: Community SUPPLEMENT [id number] of Wisconsin Hospital and Clinics Repository Number: [id number] Date:9625-17-44SNDHVN [employer] [address]AQZEFS, [place] [address]IS: 04/16/2018 Tertiary NOT GIVENUNK [place] Insurance:SELF PAY [facility] Number: Effective Repository Date:2018-04-04 04/09/2018 CECILE L Primary CECILE L [place] [id number] Insurance:MEDICARE ROCKHOLDDOB: [facility] [id number] Number: Repository [address]Hmc: 330 [id number] [phone] () Date:2018-03-04 04/09/2018 Secondary CECILE L [place] [facility]: Community SUPPLEMENT [id number] of [facility] Hospital and Clinics Repository Number: [id number] Date:7365-56-36JUJHBX [employer] [address] [address]IYUPSY, [place] [address]XZ: 04/09/2018 Tertiary NOT GIVENUNK [place] Insurance:SELF PAY [facility] Number: Effective Repository Date:2018-04-04 03/13/2018 CECILE L Primary CECILE L [place] [id number] Insurance:MEDICARE ROCKHOLDDOB: [facility] [id number], [place] Number: Repository [address]Xgm: 330 [id number] [phone] () Date:2018-03-04 03/13/2018 Secondary CECILE L [place] Insurance:VIVIAN [facility]ITALHOLDDOB: Community SUPPLEMENT [id number] of [facility] Hospital and Clinics Repository Number: [id number] Date:6643-56-09EBHRQI [employer] [address] [address]TPQOXC, [place] [address]UK: 03/13/2018 Tertiary NOT GIVENUNK [place] Insurance:SELF PAY [facility] Number: Effective Repository Date:2018-03-04 03/07/2018 CECILE L Primary CECILE L [place] [id number] Insurance:MEDICARE ROCKHOLDDOB: [facility] [id number] Hospital District, [place] Number: Repository [address]Wds: 330) [id number] [phone] (HP) Date:2018-03-07 03/07/2018 Secondary CECILE L [place] Insurance:VIVIAN VALLEJODOB: Community SUPPLEMENT [id number] of Wisconsin Hospital and Clinics Repository Number: [id number] Date:0442-28-54HSLYQF [employer] [address] [address]TWPZTE, [place] [address]IG: 03/07/2018 Tertiary NOT GIVENUNK [place] Insurance:SELF PAY [facility] Number: Effective Repository Date:2018-03-07 03/04/2018 CECILE L Primary CECILE L [place] [id number] Insurance:MEDICARE ROCKHOLDDOB: [facility] [id number], [place] Number: Repository [address]Kaf: 330 [id number] [phone] () Date:2018-01-16 03/04/2018 Secondary CECILE L [place] Insurance:VIVIAN VALLEJODOB: Community SUPPLEMENT [id number] of Wisconsin Hospital and Clinics Repository Number: [id number] Date:1185-74-67EHPTDO [employer] [address] [address]YRGBFY, [place] [address]EG: 03/04/2018 Tertiary NOT GIVENUNK [place] Insurance:SELF PAY [facility] Number: Effective Repository Date:2018-02-28 02/03/2018 CECILE L Primary CECILE L [place] [id number] Insurance:MEDICARE ROCKHOLDDOB: [facility] [id number], [place] Number: Repository [address]Zwv: 330 [id number] [phone] () Date:2018-01-30 02/03/2018 Secondary CECILE L [place] Insurance:VIVIAN VALLEJODOB: Community SUPPLEMENT [id number] of Wisconsin Hospital and Clinics Repository Number: [id number] Date:9214-52-66RYETUK [employer] [address] [address]ZORVNZ, [place] [address]PZ: 02/03/2018 Tertiary NOT GIVENUNK [place] Insurance:SELF PAY [facility] Number: Effective Repository Date:2018-01-30 01/31/2018 CECILE L Primary CECILE L [place] [id number] Insurance:MEDICARE ROCKHOLDDOB: [facility] [id number] Regional MedCenter [place] Number: Repository [address]Sjr: 330 [id number] [phone] () Date:2018-01-16 01/31/2018 Secondary CECILE L [place] Insurance:[facility]ASWEDISH MEDICAL CENTERHOLDDOB: Community SUPPLEMENT [id number] of [facility] Hospital [facility] Repository Number: [id number] Date:8770-30-07GYOQSH [employer] [address] [address]LBYPMT, [place] [address]IQ: 01/31/2018 Tertiary NOT GIVENUNK [place] Insurance:SELF PAY [facility] Number: Effective Repository Date:2018-01-31 01/30/2018 CECILE L Primary CECILE L [place] [id number] Insurance:MEDICARE ROCKHOLDDOB: [facility] [id number] Regional MedCenter [place] Number: Repository [address]Qak: 330 [id number] [phone] () Date:2018-01-16 01/30/2018 Secondary CECILE L [place] Insurance:VIVIAN [facility]ITALHOLDDOB: Community SUPPLEMENT [id number] of [facility] Hospital [facility] Repository Number: [id number] Date:1529-56-25YBIUGH [employer] [address] [address]J[place]AL[place], [place] [address]BP: 01/30/2018 Tertiary NOT GIVENUNK [place] Insurance:SELF PAY [facility] Number: Effective Repository Date:2018-01-16 01/27/2018 CECILE L Primary CECILE L [place] [id number] Insurance:MEDICARE ROCKHOLDDOB: [facility] [id number] Hospital District, [place] Number: Repository [address]Wmd: 330 [id number] [phone] (HP) Date:2018-01-16 01/27/2018 Secondary CECILE L [place] Insurance:VIVIAN VALLEJODOB: Community SUPPLEMENT [id number] of Wisconsin Hospital and Clinics Repository Number: [id number] Date:8252-92-60UWYSXG [employer] [address] [address]OFLLFA, [place] [address]BT: 01/27/2018 Tertiary NOT GIVENUNK [place] Insurance:SELF PAY [facility] Number: Effective Repository Date:2018-01-16 01/27/2018 CECILE L Primary CECILE L [place] [id number] Insurance:MEDICARE ROCKHOLDDOB: [facility] [id number] Hospital District, [place] Number: Repository [address]Yea: 330 [id number] [phone] () Date:2018-01-16 01/27/2018 Secondary CECILE L [place] Insurance:VIVIAN VALLEJODOB: Community SUPPLEMENT [id number] of [facility] Hospital [facility] Repository Number: [id number] Date:0476-93-62ARURXG [employer] [address] [address]CFBCNY, [place] [address]YQ: 01/27/2018 Tertiary NOT GIVENUNK [place] Insurance:SELF PAY [facility] Number: Effective Repository Date:2018-01-27 01/20/2018 CECILE L Primary CECILE L [place] [id number] Insurance:MEDICARE ROCKHOLDDOB: [facility] [id number] Hospital District, [place] Number: Repository [address]Njn: 330 [id number] [phone] (HP) Date:2017-12-31 01/20/2018 Secondary CECILE L [place] Insurance:VIVIAN VALLEJODOB: Community SUPPLEMENT [id number] of [facility] Hospital and Clinics Repository Number: [id number] Date:2665-96-75FEGXAB [employer] [address] [address]SAA[place], [place] [address]ZN: 01/20/2018 Tertiary NOT GIVENUNK [place] Insurance:SELF PAY [facility] Number: Effective Repository Date:2018-01-20 01/16/2018 CECILE L Primary CECILE L [place] [id number] Insurance:MEDICARE ROCKHOLDDOB: [facility] [id number], [place] Number: Repository [address]Tjs: 330 [id number] [phone] () Date:2018-01-02 01/16/2018 Secondary CECILE L [place] Insurance:VIVIAN REYHOLDDOB: Community SUPPLEMENT [id number] of [facility] Hospital and Clinics Repository Number: [id number] Date:5663-99-12VLORQE [employer] [address] [address] [address]EHEXJI, [place] [address]TU: 01/16/2018 Tertiary NOT GIVENUNK [place] Insurance:SELF PAY [facility] Number: Effective Repository Date:2018-01-14 12/31/2017 CECILE L Primary CECILE L [place] [id number] Insurance:MEDICARE ROCKHOLDDOB: [facility] [id number], [place] Number: Repository [address]Xhw: 330 [id number] [phone] () Date:2017-12-30 12/31/2017 Secondary CECILE L [place] Insurance:VIVIAN VALLEJODOB: Community SUPPLEMENT [id number] of [facility] Hospital and Clinics Repository Number: [id number] Date:4475-75-30RVUKTK [employer] [address] [address]KMTUVW, [place] [address]EU: 12/31/2017 Tertiary NOT GIVENUNK [place] Insurance:SELF PAY [facility] Number: Effective Repository Date:2017-12-31 12/30/2017 CECILE L Primary CECILE L [place] [id number] Insurance:MEDICARE ROCKHOLDDOB: [facility] [id number] Hospital District, [place] Number: Repository [address]Sxo: 330 [id number] [phone] (HP) Date:2017-12-30 12/30/2017 Secondary CECILE L [place] Insurance:VIVIAN VALLEJODOB: Community SUPPLEMENT [id number] of Wisconsin Hospital and Clinics Repository Number: [id number] Date:8269-08-96QPCQSM [employer] [address] [address]OFIDQJ, [place] [address]WR: 12/30/2017 Tertiary NOT GIVENUNK [place] Insurance:SELF PAY [facility] Number: Effective Repository Date:2017-12-30 12/30/2017 CECILE L Primary CECILE L [place] [id number] Insurance:MEDICARE ROCKHOLDDOB: [facility] [id number] Hospital District, [place] Number: Repository [address]Fhv: 330 [id number] [phone] (HP) Date:2017-12-30 12/30/2017 Secondary CECILE L [place] Insurance:VIVIAN VALLEJODOB: Community SUPPLEMENT [id number] of [facility] Hospital and Clinics Repository Number: [id number] Date:1199-38-42MZOWBL [employer] [address] [address]LXSDKG, [place] [address]UU: 12/30/2017 Tertiary NOT GIVENUNK [place] Insurance:SELF PAY [facility] Number: Effective Repository Date:2017-12-30 12/30/2017 CECILE L Primary CECILE L [place] [id number] Insurance:MEDICARE ROCKHOLDDOB: [facility] A [facility] [id number] Hospital District, [place] Number: Repository [address]Kkb: 330 [id number] [phone] (HP) Date:2017-12-30 12/30/2017 Secondary CECILE L [place] Insurance:VIVIAN VALLEJODOB: Community SUPPLEMENT [id number] of Wisconsin Hospital and Clinics Repository Number: [id number] Date:3443-39-85VJOBQR [employer] [address] [address]MMUVLG, [place] [address]WK: 12/30/2017 Tertiary NOT GIVENUNK [place] Insurance:SELF PAY [facility] Number: Effective Repository Date:2017-12-30 12/30/2017 CECILE L Primary CECILE L [place] [id number] Insurance:MEDICARE ROCKHOLDDOB: [facility] A [facility] [id number] Hospital District, [place] Number: Repository [address]Dzo: 330 [id number] [phone] () Date:2017-12-30 12/30/2017 Secondary CECILE L [place] Insurance:CIGNA AMADOU ROCKHOLDDOB: Community SUPPLEMENT [id number] of Wisconsin Hospital and Clinics Repository Number: [id number] Date:5479-26-15MHAIDJ [employer] [address] [address]WLCJPF, [place] [address]US: 12/30/2017 Tertiary NOT GIVENUNK [place] Insurance:SELF PAY [facility] Number: Effective Repository Date:2017-12-30 12/30/2017 CECILE L Primary CECILE L [place] [id number] Insurance:MEDICARE ROCKHOLDDOB: [facility] A [facility] [id number], [place] Number: Repository [address]Gwg: 330 [id number] [phone] () Date:2017-12-30 12/30/2017 Secondary CECILE L [place] Insurance:VIVIAN TOBAR MANSFIELDHOLDDOB: Community SUPPLEMENT [id number] of Wisconsin Hospital and Clinics Repository Number: [id number] Date:9219-56-50BBMTKE [employer] [address] [address]TYYQRK, [place] [address]HQ: 12/30/2017 Tertiary NOT GIVENUNK [place] Insurance:SELF PAY [facility] Number: Effective Repository Date:2017-12-30 12/30/2017 CECILE L Primary CECILE L [place] [id number] Insurance:MEDICARE ROCKHOLDDOB: [facility] [id number] Regional MedCenter [place] Number: Repository [address]Cyi: 330 [id number] [phone] (HP) Date:2017-12-30 12/30/2017 Secondary CECILE L [place] Insurance:VIVIAN VALLEJODOB: Community SUPPLEMENT [id number] of Wisconsin Hospital and Clinics Repository Number: [id number] Date:5996-37-93VBYYPS [employer] [address] [address]YLLFTK, [place] [address]ST: 12/30/2017 Tertiary NOT GIVENUNK [place] Insurance:SELF PAY [facility] Number: Effective Repository Date:2017-12-30 12/30/2017 CECILE L Primary CECILE L [place] [id number] Insurance:MEDICARE ROCKHOLDDOB: [facility] [id number] Hospital District, [place] Number: Repository [address]Bps: 330 [id number] [phone] (HP) Date:2017-12-30 12/30/2017 Secondary CECILE L [place] Insurance:VIVIAN LUONGB: [facility] SUPPLEMENT [id number] of [facility] Hospital and Clinics Repository Number: [id number] Date:1901-64-36PBEBDW [employer] [address] [address]BNSBSI, [place] [address]MV: 12/30/2017 Tertiary NOT GIVENUNK [place] Insurance:SELF PAY [facility] Number: Effective Repository Date:2017-12-30 12/30/2017 CECILE L Primary CECILE L [place] [id number] Insurance:MEDICARE ROCKHOLDDOB: [facility] [id number] [place] Number: Repository [address]Uew: [id number] [phone] (HP) Date:2017-12-30 12/30/2017 Secondary CECILE L [place] Insurance:VIVIAN VALLEJODOB: Community [facility]PPLE[id number] Number: [id number] Date:[id number] [employer] [address] [address], [place] [address]ZA: 12/30/2017 Tertiary NOT GIVENUNK [place] Insurance:SELF PAY [facility]: Effective Repository Date:2017-12-30 12/30/2017 CECILE L Primary CECILE L [place] [id number] Insurance:MEDICARE ROCKHOLDDOB: [facility] [id number]: Rep[place] [id number]: [phone] [phone] () Date:2017-12-30 12/30/2017 Secondary CECILE L [place] Insurance:CIGNA AMADOU ROCKHOLDDOB: Community SUPPLEMENT [id number] Number: [id number] Date:[id number] [employer] [address] [address], [place] [address]QS: 12/30/2017 Tertiary NOT GIVENUNK [place] Insurance:SELF PAY [facility] Number: Effective Repository Date:2017-12-30 12/30/2017 CECILE L Primary CECILE L [place] [id number] Insurance:MEDICARE ROCKHOLDDOB: [facility] [id number] Number: Repository [id number]: [phone] [id number] [phone] () Date:2017-12-30 12/30/2017 Secondary CECILE L [place] Insurance:CIGNA AMADOU ROCKHOLDDOB: Community SUPPLEMENT [id number] of [facility] Repository Number: [id number] Date:1506-54-31RUUCBF [employer] [address] [address], [place] [address]ZH: 12/30/2017 Tertiary NOT GIVENUNK [place] Insurance:SELF PAY [facility]: Effective Repository Date:2017-12-30 12/30/2017 CECILE L Primary CECILE L [place] [id number] Insurance:MEDICARE ROCKHOLDDOB: Community [facility] PART A BPolicy [id number] Number: Repository [id number]: [phone] [id number] [phone] () Date:2017-12-30 12/30/2017 Secondary CECILE Rajan Insurance:CIGNA [facility]CR [facility] SUPPLEMENT [id number] of [facility] Hospital and Clin[facility] Repository Number: [id number] Date:[id number] [employer] [address] [address], [place] [address]FL: 12/30/2017 Tertiary NOT GIVENUNK [place] Insurance:SELF PAY [facility] Number: Effective Repository Date:2017-12-30
== END ==
PROVIDERS: Family Provider Family Medicine; PCP Family Medicine; Referring Provider Internal Medicine Hematology & Oncology; Visit Provider Internal Medicine Hematology & Oncology
DX: J90 Pleural effusion, not elsewhere classified (principal); C34.90 Malignant neoplasm of unspecified part of unspecified bronchus or lung
CPT/HCPCS: 32555; 36415; 71046; 80053; 83615; 84157; 85610; 85730; 88108; 88305; 88313

== ENCOUNTER → 2019-02-02 14:06 | Outpatient (CLI) | payer MEDICARE, OTHER, SELFPAY ==
[2019-02-02 13:49] VITALS: BMI 27.4
[2019-02-02 15:14] LABS: Anion Gap 7 (5-15); BUN 6 mg/dL (7-18); Chloride 92 mmol/L (98-107); EST Glomerular Filtration Rate 128 mL/min (>60); Est Glom Filt Rate - Afr Amer 155 mL/min (>60); Glucose 117 mg/dL (74-106); Sodium Level 128 mmol/L (136-145)
== END ==
PROVIDERS: Family Provider Family Medicine; PCP Family Medicine; Referring Provider Nurse Practitioner Family; Visit Provider Nurse Practitioner Family
DX: I48.0 Paroxysmal atrial fibrillation (principal); I10 Essential (primary) hypertension; I34.0 Nonrheumatic mitral (valve) insufficiency
CPT/HCPCS: 36415; 80048

== ENCOUNTER → 2019-02-03 09:07 | Outpatient (CLI) | payer MEDICARE, OTHER, SELFPAY ==
[2019-02-02 13:49] VITALS: BMI 27.4
== END ==
PROVIDERS: Family Provider Family Medicine; PCP Family Medicine; Referring Provider Nurse Practitioner Family; Visit Provider Nurse Practitioner Family
DX: I10 Essential (primary) hypertension (principal); I48.0 Paroxysmal atrial fibrillation; I34.0 Nonrheumatic mitral (valve) insufficiency
CPT/HCPCS: 93225; 93226

== ENCOUNTER → 2019-02-25 08:32 | Outpatient (CLI) | payer MEDICARE, OTHER, SELFPAY ==
[2019-02-02 13:49] VITALS: BMI 27.4
[2019-02-25 09:45] LABS: Anion Gap 2 (5-15); BUN 4 mg/dL (7-18); Calcium,Total 9.1 mg/dL (8.5-10.1); Chloride 93 mmol/L (98-107); Creatinine, Serum 0.57 mg/dL (0.55-1.02); EST Glomerular Filtration Rate 111 mL/min (>60); Est Glom Filt Rate - Afr Amer 135 mL/min (>60); Glucose 111 mg/dL (74-106); Potassium 3.6 mmol/L (3.5-5.1); Sodium Level 127 mmol/L (136-145)
== END ==
PROVIDERS: Family Provider Family Medicine; PCP Family Medicine; Referring Provider Nurse Practitioner Family; Visit Provider Nurse Practitioner Family
DX: I10 Essential (primary) hypertension (principal); I48.91 Unspecified atrial fibrillation
CPT/HCPCS: 36415; 80048

== ENCOUNTER → 2019-04-08 13:39 | Outpatient (CLI) | payer MEDICARE, OTHER, SELFPAY ==
[2019-04-08 12:59] VITALS: BMI 27.4
[2019-04-08 14:32] LABS: Anion Gap 5 (5-15); BUN 6 mg/dL (7-18); BUN/Creat Ratio 11.4 RATIO (10-20); Calcium,Total 9.8 mg/dL (8.5-10.1); Chloride 94 mmol/L (98-107); Creatinine, Serum 0.53 mg/dL (0.55-1.02); EST Glomerular Filtration Rate 121 mL/min (>60); Est Glom Filt Rate - Afr Amer 146 mL/min (>60); Glucose 100 mg/dL (74-106); Potassium 4.1 mmol/L (3.5-5.1); Sodium Level 131 mmol/L (136-145)
== END ==
PROVIDERS: Family Provider Family Medicine; PCP Family Medicine; Referring Provider Nurse Practitioner Family; Visit Provider Nurse Practitioner Family
DX: E87.1 Hypo-osmolality and hyponatremia (principal); I48.91 Unspecified atrial fibrillation
CPT/HCPCS: 36415; 80048

== ENCOUNTER 2019-10-05 11:06 | Inpatient (IN) | payer MEDICARE, OTHER, SELFPAY ==
[2019-07-23 14:10] VITALS: BMI 28.1
[2019-10-05] VITALS (10 sets, daily range): BP systolic 137–151; BP diastolic 73–97; PULSE 72–104; RESP 17–22; TEMP 36.6–36.7; O2SAT 92–100; BMI 27.4; BMI 29.7
--- NOTE | 2019-10-05 11:14 | EKG12_ITS ---
Test Reason : EDEMA Blood Pressure : / mmHG Vent. Rate : 085 BPM Atrial Rate : 085 BPM P-R Int : 000 ms QRS Dur : 092 ms QT Int : 362 ms P-R-T Axes : 000 -26 093 degrees QTc Int : 430 ms Atrial fibrillation Low voltage QRS Cannot rule out Anterior infarct , age undetermined Abnormal ECG Confirmed by ANIKET GILBERT, CATALINA ([id number]), editor trade journal DANIEL GRANGER ([id number]) on 10/07/2019 11:54:01 AM Referred By: Rohan Yeh Confirmed By:CATALINA MARCIAL MD
--- NOTE | 2019-10-05 11:24 | RAD_ITS ---
STUDY: X-RAY CHEST REASON FOR EXAM: Female, 73 years old. Cough and chest congestion. TECHNIQUE: Single AP portable view of the chest. COMPARISON: Comparison is made with prior study dated September 16, 2018. FINDINGS: Surgical clips are seen in both axillary regions. Increasing right pleural effusion with right basilar infiltration and/or atelectasis. Stable pleural parenchymal changes at the left lung base. Stable appearance of the calcific pleural plaques in the left midlung. Normal size heart. Normal mediastinum and mike. Normal visualized pulmonary arteries. There is atherosclerotic calcification of the aortic arch with tortuosity. There are diffuse degenerative changes of the visualized thoracic spine. Findings suggestive of skeletal metastatic disease. Normal visualized ribs, clavicles, and shoulders. There is no demonstrated abnormality of the visualized soft tissue structures of the upper abdomen. RAD/Chest 1 View (Portable) IMPRESSION: Increasing right pleural effusion with underlying infiltration and/or atelectasis. Electronically Signed: Kenneth Salinas, at 11:42 EST , Service support ,
[2019-10-05 11:42] LABS: Absolute Lymphocyte Count 0.65 X10^3/uL (0.83-4.51); Basophil# 0.03 X10^3/uL; Basophil% 0.6 % (0-1); Eosinophil# 0.04 X10^3/uL; Eosinophils% 0.8 % (0-5); Hemoglobin 13.7 g/dL (12.0-15.0); Lymphocyte # 0.65 X10^3/ul (4.0); Lymphocyte % 12.5 % (19-41); Mean Corp Hgb Conc 33.4 g/dL (32-36); Mean Corpuscular Hgb 31.9 pg (27.0-32.0); Mean Corpuscular Volume 95.3 fL (81-99); Mean Platelet Vol. 9.3 fl (6.2-12.0); Monocyte# 0.53 X10^3/uL; Monocyte% 10.2 % (0-10); NRBC Flagged by Analyzer 0 % (0-5); Neutrophil # 3.95 X10^3/uL (2.7-7.7); Neutrophil % 75.5 % (47-70); Platelet Count 204 K/mm3 (150-450); RBC Distribution Width CV 12.8 % (11.6-14.6); RBC Distribution Width SD 44.8 fl (35.1-43.9); White Blood Count 5.2 K/mm3 (4.4-11.0)
[2019-10-05 12:00] LABS: Anion Gap 2 (5-15); BUN 5 mg/dL (7-18); BUN/Creat Ratio 9.8 RATIO (10-20); Calcium,Total 8.7 mg/dL (8.5-10.1); Chloride 88 mmol/L (98-107); Creatinine, Serum 0.51 mg/dL (0.55-1.02); EST Glomerular Filtration Rate 126 mL/min (>60); Est Glom Filt Rate - Afr Amer 152 mL/min (>60); Estimated Creatinine Clearance 43.91 ml/min; Glucose 105 mg/dL (74-106); Potassium 4.4 mmol/L (3.5-5.1); Sodium Level 125 mmol/L (136-145)
[2019-10-05 12:09] LABS: BNP,B-Type NATRIURETIC PEPTIDE 1716.2 pg/mL (0-100)
--- NOTE | 2019-10-05 12:23 | ED.VIS.GEN ---
History of Present Illness Chief Complaint: Edema Informant: Patient, Family Onset: Weeks Maximum Severity: Mild Narrative: Increasing lower extremity edema shortness of breath she now indicates she has had worsening edema for many weeks to the point she has blisters that are oozing fluid right leg more than left, she also complains of increasing shortness of breath decreased exertional status, chronic cough unchanged no fever normal bowel bladder habits she is seen by pulmonary and cardiology Past Medical History - Allergies and Home Meds Allergies/Adverse Reactions: Allergies albuterol sulfate [From Combivent] Allergy (Verified 10/05/19 11:08) Swelling ipratropium bromide [From Combivent] Allergy (Verified 10/05/19 11:08) Swelling metoprolol Allergy (Verified 10/05/19 11:08) Laryngospasms Sulfa (Sulfonamide Antibiotics) Allergy (Verified 10/05/19 11:08) Rash beclomethasone [From Qvar] Adverse Reaction (Verified 10/05/19 11:08) COUGHING benzalkonium chloride [From Merthiolate (benzalkonium)] Adverse Reaction (Verified 10/05/19 11:08) Other codeine Adverse Reaction (Verified 10/05/19 11:08) doesn't remember doxycycline Adverse Reaction (Verified 10/05/19 11:08) Abd cramps/diarrhea formoterol fumarate [From Dulera] Adverse Reaction (Verified 10/05/19 11:08) Other hydrochlorothiazide Adverse Reaction (Verified 10/05/19 11:08) Other ibuprofen [From Advil] Adverse Reaction (Verified 10/05/19 11:08) Other iodine Adverse Reaction (Verified 10/05/19 11:08) Itching merbromin Adverse Reaction (Verified 10/05/19 11:08) Other mometasone furoate [From Dulera] Adverse Reaction (Verified 10/05/19 11:08) Other oseltamivir [From Tamiflu] Adverse Reaction (Verified 10/05/19 11:08) uterine pain prednisone Adverse Reaction (Verified 10/05/19 11:08) Abd cramps/diarrhea PLASTIC TAPE Allergy (Uncoded 10/05/19 11:08) Rash Primary Care Physician: Juan Brandt MD [Primary Care Provider] - Past Medical History: - - Includes as above CHF hypertension edema Surgical History: mastectomy Smoking Status: Current some day smoker - Family History Maternal Family History: Family History (Last Reviewed 07/23/19 @ 14:37 by Rusty Jovel MD) Father Emphysema of lung Sister Cancer Family History: Reports: No pertinent history Paternal Family History: Family History (Last Reviewed 07/23/19 @ 14:37 by Rusty Jovel MD) Father Emphysema of lung Sister Cancer Family History: Reports: No pertinent history Review of Systems General: Denies: Chills, Fever, Sweats Eyes: Denies: Visual changes - bilaterally, Diplopia ENT: Denies: Rhinorrhea, Sore throat Cardiovascular: Denies: Chest pain, Palpitations Respiratory: Reports: Dyspnea, Cough. Denies: Dyspnea on exertion Gastrointestinal: Denies: Abdominal pain, Nausea, Vomiting, Diarrhea, Melena, Hematochezia Genitourinary: Denies: Dysuria, Hematuria, Frequency Musculoskeletal: Reports: Swelling. Denies: Back pain, Extremity Pain Skin: Denies: Rash, Wounds Neurological: Denies: Headache, Weakness, Numbness Physical Exam Vital Signs/Narrative: Vital Signs Temp Pulse Resp BP Pulse Ox 10/05/19 11:47 92 10/05/19 11:09 97.8 F 89 17 147/96 H 94 10/05/19 11:07 86 18 137/97 H 94 General: Well nourished, Well developed, No Acute Distress Head: Normocephalic, Atraumatic Eyes: Perrl, EOMI ENT: Moist mucous membranes, No rhinorrhea Neck: Supple, Nontender Cardiovascular: Regular rate, Regular rhythm, No murmurs Respiratory: No distress, Chest nontender, Diminished, Decreased Air Movement Abdomen: Soft, Nontender, Nondistended, Normal bowel sounds Back: Nontender, Normal Inspection Extremities: Nontender, Edema Skin: Normal color, - - He has blisters to her lower extremities right greater than left that are oozing clear fluid some minimal redness Neurological: Alert, Oriented x3, Cranial nerves II-XII grossly intact, Normal Strength, Normal Sensation Psychological: Normal affect, Normal Mood Diagnostic/Tx/Re-eval - Medical Decision Making Differentials rather extensive CHF might, cellulitis The patient's EKG shows atrial fibrillation rate of about 80 no acute injury pattern appreciated chest x-ray per radiology shows worsening pleural effusions, atelectasis versus pneumonia, and her BNP is about 1300, at this time she is resting comfortably in the bed there is no signs of cardiopulmonary failure she will be started IV Lasix we have asked hospice here for admission for further management of all the above Admit stable Impression final acute congestive heart failure ED Disposition - Plan for ED Patient: Diagnosis: Acute CHF, Atrial fibrillation, Hypertension Referrals: Juan Brandt MD [Primary Care Provider] -
--- NOTE | 2019-10-05 13:05 | NURSING ---
[address] [facility]
--- NOTE | 2019-10-05 13:45 | ECHOD_ITS ---
Reason For Study: CHF Procedure This was a 2D Doppler, Color Flow transthoracic echocardiogram. Pt sitting upright due to SOB. Exam performed portable in patient room. Left Ventricle Normal LV size. The estimated ejection fraction is 37 %. No regional wall motion abnormalities noted. Right Ventricle Normal RV size. Normal systolic function. Atria Normal left atrium. The right atrium is mildly enlarged. Mitral Valve Bileaflet diffuse mitral valve thickening. Moderately severe (3+) eccentric mitral valve insufficiency. Tricuspid Valve Normal tricuspid valve. Moderate (2+) tricuspid valve insufficiency. Moderate pulmonary hypertension. Pulmonary artery systolic pressure is 60 mmHg. Great Vessels Normal aortic root. The pulmonary artery is normal size. The inferior vena cava is dilated. Pericardium/Pleural Small pericardial effusion. There are no echocardiographic indications of cardiac tamponade. Moderate size left pleural effusion. MMode/2D Measurements & Calculations LVIDd: 5.3 cm IVSd: 0.80 cm Ao root diam: 3.6 cm LVIDs: 4.4 cm LVPWd: 0.89 cm RVDd: 3.6 cm FS: 17.6 % LAV(MOD-bp): 76.8 ml LA dimension(2D): 4.6 cm LA A4 area: 19.1 cm2 LAV(MOD-bp) Indexed: 43.2 ml/m2 LAV(MOD-sp2): 90.3 ml LAV(MOD-sp4): 53.4 ml RA A4 area: 22.4 cm2 Doppler Measurements & Calculations MV V2 max: 127.1 cm/sec Ao V2 max: 123.0 cm/sec LV V1 max: 78.3 cm/sec MV max P.5 mmHg Ao max P.1 mmHg LV V1 max P.5 mmHg MV V2 mean: 62.2 cm/sec Ao V2 mean: 90.1 cm/sec LV V1 mean P.2 mmHg MV mean P.0 mmHg Ao mean P.6 mmHg LV V1 mean: 51.3 cm/sec MV V2 VTI: 25.7 cm Ao V2 VTI: 19.7 cm LV V1 VTI: 11.9 cm PA V2 max: 60.5 cm/sec TR max cas: 363.2 cm/sec TR max P.8 mmHg Interpretation Summary Normal LV size. The estimated ejection fraction is 37 %. No regional wall motion abnormalities noted. The right atrium is mildly enlarged. Moderate pulmonary hypertension. Pulmonary artery systolic pressure is 60 mmHg. Small pericardial effusion. Ordering Physician: Rohan Yeh Referring Physician: GINA MCDANIEL Performed By: Kayla Bustamante RDCS, RVT
--- NOTE | 2019-10-05 13:51 | HP.PCM_ITS ---
Problem List (1) Paroxysmal atrial fibrillation Status: Chronic (2) Atrial fibrillation Status: Chronic Qualifiers: Atrial fibrillation type: paroxysmal Qualified Code(s): I48.0 - Paroxysmal atrial fibrillation (3) Nonrheumatic mitral (valve) insufficiency Status: Chronic (4) Lung mass Status: Chronic (5) Suspected chronic obstructive pulmonary disease based on initial evaluation Status: Chronic (6) Acute CHF Status: Acute Qualifiers: Heart failure type: diastolic Qualified Code(s): I50.31 - Acute diastolic (congestive) heart failure (7) History of breast cancer Status: Chronic (8) COPD (chronic obstructive pulmonary disease) Status: Chronic Qualifiers: COPD type: unspecified COPD Qualified Code(s): J44.9 - Chronic obstructive pulmonary disease, unspecified (9) Hypertension Status: Chronic Qualifiers: Hypertension type: essential hypertension Qualified Code(s): I10 - Essential (primary) hypertension History of Present Illness Date of Admission: 10/05/19 Chief Complaint: Bilateral lower extremity swelling The patient is a 73 year old F last medical history significant for congestive heart failure with preserved ejection fraction, paroxysmal atrial fibrillation who presented with bilateral lower extremity swelling. Patient reports 2 weeks of increasing swelling involving both lower extremity. He did notice some excoriations on the lateral aspect of the right lower extremity hence the decision to present to the ED. In the ED patient was found to have Increasing right pleural effusion with underlying infiltration and/or atelectasis. Was also noted to have elevated BNP a diagnosis of acute congestive heart failure made admitted to regular nursing floor for further management Past Medical History Past Medical History (Chronic Problems): Chronic Problems (Last Reviewed 10/05/19 @ 13:53 by Rohan Yeh MD) Paroxysmal atrial fibrillation (Chronic) Atrial fibrillation (Chronic) Nonrheumatic mitral (valve) insufficiency (Chronic) Lung mass (Chronic) Suspected chronic obstructive pulmonary disease based on initial evaluation (Chronic) History of breast cancer (Chronic) COPD (chronic obstructive pulmonary disease) (Chronic) Hypertension (Chronic) Medical History: Medical History (Last Reviewed 10/05/19 @ 13:53 by Rohan Yeh MD) Paroxysmal atrial fibrillation (Chronic) I48.0 Nonrheumatic mitral (valve) insufficiency (Chronic) I34.0 Lung mass (Chronic) R91.8 Suspected chronic obstructive pulmonary disease based on initial evaluation (Chronic) J44.9 Acute CHF (Acute) I50.9 History of breast cancer (Chronic) Z85.3 COPD (chronic obstructive pulmonary disease) (Chronic) J44.9 Hypertension (Chronic) I10 New onset A. fib with RVR Thrush, oral (Resolved) B37.0 Allergies albuterol sulfate [From Combivent] Allergy (Verified 10/05/19 11:08) Swelling ipratropium bromide [From Combivent] Allergy (Verified 10/05/19 11:08) Swelling metoprolol Allergy (Verified 10/05/19 11:08) Laryngospasms Sulfa (Sulfonamide Antibiotics) Allergy (Verified 10/05/19 11:08) Rash beclomethasone [From Qvar] Adverse Reaction (Verified 10/05/19 11:08) COUGHING benzalkonium chloride [From Merthiolate (benzalkonium)] Adverse Reaction (Verified 10/05/19 11:08) Other codeine Adverse Reaction (Verified 10/05/19 11:08) doesn't remember doxycycline Adverse Reaction (Verified 10/05/19 11:08) Abd cramps/diarrhea formoterol fumarate [From Dulera] Adverse Reaction (Verified 10/05/19 11:08) Other hydrochlorothiazide Adverse Reaction (Verified 10/05/19 11:08) Other ibuprofen [From Advil] Adverse Reaction (Verified 10/05/19 11:08) Other iodine Adverse Reaction (Verified 10/05/19 11:08) Itching merbromin Adverse Reaction (Verified 10/05/19 11:08) Other mometasone furoate [From Dulera] Adverse Reaction (Verified 10/05/19 11:08) Other oseltamivir [From Tamiflu] Adverse Reaction (Verified 10/05/19 11:08) uterine pain prednisone Adverse Reaction (Verified 10/05/19 11:08) Abd cramps/diarrhea PLASTIC TAPE Allergy (Uncoded 10/05/19 11:08) Rash Home Medications: Ambulatory Orders Medication Instructions Recorded Albuterol Inhaler [Ventolin Hfa] 1 - 2 puff INHALATION Q4H PRN PRN 10/16/16 carvedilol 25 mg tablet 25 mg PO BID #180 tab 02/02/19 quinapril 20 mg tablet 20 mg PO BID #180 tab 02/02/19 rivaroxaban 20 mg tablet 20 mg PO DINNER #30 tab 02/02/19 fluticasone propionate-salmeterol 2 puff INHALATION BID #1 device 04/08/19 230 mcg-21 mcg/actuation HFA inhaler furosemide 40 mg tablet 40 mg PO BID #120 tab 07/23/19 potassium chloride ER 20 mEq 20 meq PO DAILY #90 tab 07/23/19 tablet,extended release Multivit-Min/Iron/Folic/Lutein 1 tab PO DAILY 10/05/19 [Centrum Silver Women Tablet] Tiotropium [place] [Spiriva 2 puff INHALATION BID 10/05/19 Respimat] Surgical History: Surgical History (Last Reviewed 10/05/19 @ 13:53 by Rohan Yeh MD) History of left mastectomy Z90.12 History of lumpectomy of right breast Z98.890 History of tubal ligation Z98.51 polyp removal uterus Surgical History: mastectomy Psychiatric History: No pertinent psych hx 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 Denies: Anorexia, Chills, Fever, Night Sweats, Weight Change HEENT: Denies: Head Aches, Sinus Congestion, Sinus Drainage Cardiovascular: Reports: Edema. Denies: Chest Pain, Orthopnea, Palpitations, Paroxysmal Noc. Dyspnea Respiratory: Reports: Cough, Shortness of Breath Gastrointestinal: Denies: Abdominal Pain, Hematemesis, Hematochezia, Nausea, Melena, Vomiting Genitourinary: Denies: Dysuria, Frequency, Hematuria, Urgency Musculoskeletal: Denies: Joint Pain, Joint Tenderness Skin: Denies: Rash Neurological: Denies: Focal weakness, Numbness, Tingling Psychiatric: Denies: Homicidal Ideations, Suicidal Ideations Hematologic/ Lymphatic: Denies: Easy Bruising, Easy Bleeding VTE Information - Inpt Only VTE Present on Admission: No VTE Mechan Device Prophylaxis: None VTE Pharm Prophylaxis ordered?: Yes Patient Problems: Active and Suspected Problems (Last Reviewed 10/05/19 @ 13:53 by oRhan Yeh MD) Acute CHF (Acute) Objective: GENERAL: cooperative HEENT: Atraumatic; EYES; Anicteric, Normal Conjunctiva NECK; supple, normal thyroid, RESPIRATORY: Diminished to auscultation CARDIOVASCULAR: Regular S1 S2, GI: soft, normoactive bowel sounds, : No Renal angle tenderness; EXTREMITIES: Bilateral stasis dermatitis, MUSCULOSKELETAL: no muscle waisting NEURO: Awake; no lateralizing signs. SKIN: No Rash PSYCH; Flat affect - Physical Exam Vitals/I&O's: Vital Signs Temp Pulse Resp BP Pulse Ox 97.8 F 89 17 147/96 H 92 10/05/19 11:09 10/05/19 11:09 10/05/19 11:10/05/19 11:10/05/19 11:47 Oxygen Flow Rate (L/min) 2 Oxygen Delivery Method Nasal Cannula Weight: 78.9 kg Body Mass Index (BMI) 29.7 Laboratory Results 10/05/19 11:25: WBC 5.2, RBC 4.30, Hgb 13.7, Hct 41.0, MCV 95.3, MCH 31.9, MCHC 33.4, RDW Std Deviation 44.8 H, RDW Coeff of Malini 12.8, Plt Count 204, MPV 9.3, Immature Gran % (Auto) 0.400, Neut % (Auto) 75.5 H, Lymph % (Auto) 12.5 L, [place] % (Auto) 10.2 H, Eos % (Auto) 0.8, Baso % (Auto) 0.6, Absolute Neuts (auto) 4.0, Absolute Lymphs (auto) 0.65 L, Nucleated RBC % 0 10/05/19 11:25: Sodium 125 L, Potassium 4.4, Chloride 88 L, Carbon Dioxide 35.0 H, Anion Gap 2 L, BUN 5 L, Creatinine 0.51 L, Estim Creat Clear Calc 43.91, Est GFR (MDRD) Af Amer 152, Est GFR (MDRD) Non-Af 126, BUN/Creatinine Ratio 9.8 L, Glucose 105, Calcium 8.7, Troponin I < 0.015 10/05/19 11:25: B-Natriuretic Peptide 1716.2 H Current Medications Acetaminophen (Tylenol) 650 mg PO Q6H PRN PRN PRN Reason: Pain Score 1-3/Temp > 100.7 F Al Hydroxide/Mg Hydroxide (Mylanta Ii) 30 ml PO Q6H PRN PRN PRN Reason: Gastric Burning Albuterol Sulfate (Ventolin Aerosols) 2.5 mg INHALATION Q2H PRN PRN PRN Reason: DYSPNEA/WHEEZING/SOB Carvedilol (Coreg) 25 mg PO BID NIKKI Guaifenesin (Robitussin) 20 ml PO Q4H PRN PRN PRN Reason: COUGH Magnesium Hydroxide (Milk Of Magnesia) 30 ml PO DAILY PRN PRN PRN Reason: Constipation Melatonin (Melatonin) 3 mg PO QHS PRN PRN PRN Reason: INSOMNIA Non-Formulary Medication (Multivit-Min/Iron/Folic/Lutein [Centrum Silver Women Tablet]) 1 tab PO DAILY [facility] Non-Formulary Medication (Quinapril Hcl [Accupril]) 20 mg PO BID [facility] Non-Formulary Medication (Potassium Chloride [K-Tab Er]) 20 meq PO DAILY [facility] Non-Formulary Medication (Fluticasone/Salmeterol) 2 puff INHALATION BID NIKKI Non-Formulary Medication (Tiotropium [place]) 2 puff inhalation BID [facility] Ondansetron HCl (Zofran) 4 mg IV Q8H PRN PRN PRN Reason: NAUSEA/VOMITING Oxycodone HCl (Oxyir) 5 mg PO Q4H PRN PRN PRN Reason: Pain Score 4-5/10 Oxycodone HCl (Oxyir) 10 mg PO Q4H PRN PRN PRN Reason: Pain Score 6-10/10 Promethazine HCl (Phenergan) 25 mg IM Q6H PRN PRN PRN Reason: Breakthrough Nausea/Vomiting Rivaroxaban (Xarelto) 20 mg PO DINNER [facility] Assessment/Plan All Active Problems (Last Reviewed 10/05/19 @ 13:53 by Rohan Yeh MD) Acute CHF (Acute) Thrush, oral (Resolved) Patient is a 73-year-old lady who presented with progressive shortness of breath and assessment of acute congestive heart failure made admitted to monitored nursing floor further management 1. Acute congestive heart failure with preserved ejection fraction ?Echo obtained on 04/29/2018 demonstrated preserved ejection fraction of 50%. Patient has been admitted to monitored bed placed on strict input and output: Daily weight, low-sodium diet and IV Lasix. Repeat echo ordered for EF assessment 2. Paroxysmal atrial fibrillation ~ rate controlled on systemic anticoagulation with Xarelto did continue 3. COPD ~ Currently not in exacerbation did continue patient home aerosol regimen 4. History of breast CA ~status post chemoradiation with left mastectomy and right lumpectomy and has since remained in remission 5. Non-small cell carcinoma of lung ?Involving the left upper lobe. Patient was treated with radiation therapy. Patient was deemed to be a poor surgical candidate for resection in view of her severe underlying obstructive lung disease. Patient is managed by Dr. Cazares as outpatient 6. Hypertension ~ blood pressure controlled, home medications continued with dose adjustment as needed 7. Tobacco dependence counseled on cessation, offered nicotine patch for tobacco cravings 8. DVT prophylaxis ~ Xarelto Advance planning; did discuss with the patient and patient's regarding advanced directives as well as CODE STATUS. Did explain the various scenarios involved ( FULL CODE, DNR CCA, DNR CCA with no intubation, and DNR CC and what each meant) patient elected main full code with intubation and CPR if warranted. Order was placed. Time spent on discussion 16 minutes. Code Visit Inpatient E&M: 97204 Init Hosp L3 Procedures: 59599 Advncd Care Plan 30 Min
[2019-10-05] MEDS: Ipratropium/Albuterol Sulfate 3 ML AMPUL.NEB INHALATION ×2 (15:59→18:54)
[2019-10-05] MEDS: Rivaroxaban 20 MG Tablet PO (18:26)
[2019-10-05] MEDS: Furosemide 40 MG/4 ML Vial IV (18:26)
[2019-10-05] MEDS: Budesonide Respules 0.5 MG/2 ML AMPUL.NEB. INHALATION (18:54)
[2019-10-05] MEDS: Lisinopril 20 MG Tablet PO (22:30)
[2019-10-05] MEDS: Carvedilol 25 MG Tablet PO (22:30)
[2019-10-06] VITALS (13 sets, daily range): BP systolic 120–135; BP diastolic 58–82; PULSE 72–95; RESP 16–20; TEMP 36.4–36.7; O2SAT 89–98
[2019-10-06 05:18] LABS: Absolute Lymphocyte Count 0.57 X10^3/uL (0.83-4.51); Absolute Neutrophil Count 3.2 X10^3/uL (2.0-7.7); Basophil# 0.02 X10^3/uL; Basophil% 0.5 % (0-1); Eosinophil# 0.03 X10^3/uL; Eosinophils% 0.7 % (0-5); Hemoglobin 12.6 g/dL (12.0-15.0); Lymphocyte # 0.57 X10^3/ul (4.0); Mean Corp Hgb Conc 33.2 g/dL (32-36); Mean Corpuscular Hgb 31.7 pg (27.0-32.0); Mean Corpuscular Volume 95.7 fL (81-99); Mean Platelet Vol. 9.4 fl (6.2-12.0); Monocyte% 11.4 % (0-10); NRBC Flagged by Analyzer 0 % (0-5); Neutrophil # 3.24 X10^3/uL (2.7-7.7); Neutrophil % 74.2 % (47-70); POSITIVE DIFFERENTIAL YES; Platelet Count 198 K/mm3 (150-450); RBC Distribution Width CV 12.8 % (11.6-14.6); RBC Distribution Width SD 45.4 fl (35.1-43.9); Red Blood Count 3.97 M/mm3 (4.2-5.4); White Blood Count 4.4 K/mm3 (4.4-11.0)
[2019-10-06 05:30] LABS: Differential Indicated SCAN CRITERIA MET
[2019-10-06 05:44] LABS: Anion Gap 4 (5-15); BUN 5 mg/dL (7-18); BUN/Creat Ratio 12.1 RATIO (10-20); Calcium,Total 8.7 mg/dL (8.5-10.1); Chloride 88 mmol/L (98-107); Creatinine, Serum 0.41 mg/dL (0.55-1.02); EST Glomerular Filtration Rate 161 mL/min (>60); Est Glom Filt Rate - Afr Amer 195 mL/min (>60); Estimated Creatinine Clearance 43.91 ml/min; Glucose 94 mg/dL (74-106); Potassium 3.2 mmol/L (3.5-5.1); Sodium Level 126 mmol/L (136-145)
[2019-10-06] MEDS: 0.9% Saline Lock 10 ML Syringe IV ×2 (05:55→08:59)
[2019-10-06] MEDS: Furosemide 40 MG/4 ML Vial IV ×3 (05:55→21:37)
[2019-10-06] MEDS: Budesonide Respules 0.5 MG/2 ML AMPUL.NEB. INHALATION ×2 (06:49→18:35)
[2019-10-06] MEDS: Ipratropium/Albuterol Sulfate 3 ML AMPUL.NEB INHALATION ×3 (06:49→18:35)
--- NOTE | 2019-10-06 07:01 | CON.PCM_ITS ---
Reason for Consult Date of Consultation: 10/06/19 Reason for Consultation: Pleural effusion History of Present Illness: The patient is a 73-year-old female, with a history as outlined below, who presented to the emergency department on October 05 with worsening shortness of breath and bilateral lower extremity edema. I currently follow the patient in the pulmonary medicine clinic due to a history of COPD and non-small cell lung cancer. The patient's last pulmonary function studies from January 2018 did reveal evidence of an irreversible very severe large airways obstructive ventilatory defect with associated air trapping and reduction in diffusing capacity. A 6-minute walk test completed at that time revealed evidence of impaired walk distance without the need for supplemental oxygen. In March 2018, the patient underwent CT-guided lung biopsy of the left upper lobe, which revealed malignant cells consistent with non-small cell carcinoma, adenocarcinoma. Following a discussion with the patient's oncologist, Dr. Cazares, the patient was referred to thoracic surgery, Dr. Nunez at [facility]. However, following evaluation, she was not deemed to be appropriate for surgical resection due to the severity of her underlying obstructive lung disease. The patient recently completed radiation treatment at [facility] in October. The patient is currently prescribed a triple therapy inhaler regimen including Advair and Spiriva. Despite the aforementioned medical history, the patient does continue to smoke cigarettes daily. The patient is also followed by Dr. Jovel in the cardiology clinic due to a history of atrial fibrillation and underlying heart failure. On presentation to the emergency department, the patient was noted to be afebrile and hemodynamically stable. She was initially documented to be saturating 94% on room air. Initial laboratory evaluation revealed no evidence of a leukocytosis. Chemistry profile was notable for a sodium of 125, chloride of 88, bicarbonate of 35 and creatinine of 0.51. Troponin was negative. However, BNP was elevated to 1716. Plain film chest x-ray revealed a moderate sized right-sided pleural effusion. A surface echocardiogram was obtained on October 05 which revealed normal LV size with an ejection fraction of 37%. No regional wall motion abnormalities were identified. There was evidence of mild right atrial enlargement along with moderately severe mitral valve insufficiency and moderate tricuspid valve insufficiency with a pulmonary artery systolic pressure estimated to be 60 mmHg. The patient was subsequently admitted to the progressive care unit for management of her acute decompensated heart failure. Past Medical History Past Medical History (Chronic Problems): Chronic Problems (Last Reviewed 10/05/19 @ 13:53 by Rohan Yeh MD) Paroxysmal atrial fibrillation (Chronic) Atrial fibrillation (Chronic) Nonrheumatic mitral (valve) insufficiency (Chronic) Lung mass (Chronic) Suspected chronic obstructive pulmonary disease based on initial evaluation (Chronic) History of breast cancer (Chronic) COPD (chronic obstructive pulmonary disease) (Chronic) Hypertension (Chronic) Medical History: Medical History (Last Reviewed 10/05/19 @ 13:53 by Rohan Yeh MD) Paroxysmal atrial fibrillation (Chronic) I48.0 Nonrheumatic mitral (valve) insufficiency (Chronic) I34.0 Lung mass (Chronic) R91.8 Suspected chronic obstructive pulmonary disease based on initial evaluation (Chronic) J44.9 Acute CHF (Acute) I50.9 History of breast cancer (Chronic) Z85.3 COPD (chronic obstructive pulmonary disease) (Chronic) J44.9 Hypertension (Chronic) I10 New onset A. fib with RVR Thrush, oral (Resolved) B37.0 Allergies albuterol sulfate [From Combivent] Allergy (Verified 10/05/19 11:08) Swelling ipratropium bromide [From Combivent] Allergy (Verified 10/05/19 11:08) Swelling metoprolol Allergy (Verified 10/05/19 11:08) Laryngospasms Sulfa (Sulfonamide Antibiotics) Allergy (Verified 10/05/19 11:08) Rash beclomethasone [From Qvar] Adverse Reaction (Verified 10/05/19 11:08) COUGHING benzalkonium chloride [From Merthiolate (benzalkonium)] Adverse Reaction (Verified 10/05/19 11:08) Other codeine Adverse Reaction (Verified 10/05/19 11:08) doesn't remember doxycycline Adverse Reaction (Verified 10/05/19 11:08) Abd cramps/diarrhea formoterol fumarate [From Dulera] Adverse Reaction (Verified 10/05/19 11:08) Other hydrochlorothiazide Adverse Reaction (Verified 10/05/19 11:08) Other ibuprofen [From Advil] Adverse Reaction (Verified 10/05/19 11:08) Other iodine Adverse Reaction (Verified 10/05/19 11:08) Itching merbromin Adverse Reaction (Verified 10/05/19 11:08) Other mometasone furoate [From Dulera] Adverse Reaction (Verified 10/05/19 11:08) Other oseltamivir [From Tamiflu] Adverse Reaction (Verified 10/05/19 11:08) uterine pain prednisone Adverse Reaction (Verified 10/05/19 11:08) Abd cramps/diarrhea PLASTIC TAPE Allergy (Uncoded 10/05/19 11:08) Rash Home Medications: Ambulatory Orders Medication Instructions Recorded Albuterol Inhaler [Ventolin Hfa] 1 - 2 puff INHALATION Q4H PRN PRN 10/16/16 carvedilol 25 mg tablet 25 mg PO BID #180 tab 02/02/19 quinapril 20 mg tablet 20 mg PO BID #180 tab 02/02/19 rivaroxaban 20 mg tablet 20 mg PO DINNER #30 tab 02/02/19 fluticasone propionate-salmeterol 2 puff INHALATION BID #1 device 04/08/19 230 mcg-21 mcg/actuation HFA inhaler furosemide 40 mg tablet 40 mg PO BID #120 tab 07/23/19 potassium chloride 20 mEq 20 meq PO DAILY #90 tab 07/23/19 tablet,extended release Multivit-Min/Iron/Folic/Lutein 1 tab PO DAILY 10/05/19 [Centrum Silver Women Tablet] Tiotropium [place] [Spiriva 2 puff INHALATION BID 10/05/19 Respimat] Surgical History: Surgical History (Last Reviewed 10/05/19 @ 13:53 by Rohan Yeh MD) History of left mastectomy Z90.12 History of lumpectomy of right breast Z98.890 History of tubal ligation Z98.51 polyp removal uterus Surgical History: mastectomy Psychiatric History: No pertinent psych hx [employer] History: No pertinent [employer] history Smoking Status: Current some day smoker - *Family History Maternal Family History: Family History (Last Reviewed 10/05/19 @ 13:53 by Rohan Yeh MD) Father Emphysema of lung Sister Cancer History Items: No pertinent history Paternal Family History: Family History (Last Reviewed 10/05/19 @ 13:53 by Rohan Yeh MD) Father Emphysema of lung Sister Cancer History Items: No pertinent history Review of Systems Constitutional: Denies: Chills, Fever Eyes: Denies: Blurred vision, Double vision HEENT: Denies: Head Aches, Sinus Congestion, Sinus Drainage Cardiovascular: Reports: Edema. Denies: Chest Pain, Palpitations Respiratory: Reports: Shortness of Breath Gastrointestinal: Denies: Abdominal Pain, Nausea, Vomiting Genitourinary: Denies: Dysuria Musculoskeletal: Denies: Joint Pain, Joint Tenderness Skin: Denies: Rash, Wounds Neurological: Denies: Numbness, Tingling, Focal weakness Psychiatric: Denies: Anxiety, Depression, Homicidal Ideations, Suicidal Ideations Hematologic/ Lymphatic: Denies: Easy Bruising, Easy Bleeding Patient Problems: Active and Suspected Problems (Last Reviewed 10/05/19 @ 13:53 by Rohan Yeh MD) Acute CHF (Acute) Objective: The patient's most recent lab work, culture data and imaging studies have all been personally reviewed. - Physical Exam Vitals/I&O's: Vital Signs Temp Pulse Resp BP Pulse Ox 97.7 F L 81 16 132/82 H 98 10/06/19 03:55 10/06/19 03:55 10/06/19 03:55 10/06/19 03:55 10/06/19 03:55 Oxygen Flow Rate (L/min) 2 Oxygen Delivery Method Nasal Cannula Weight: 174 lb 2.643 oz Body Mass Index (BMI) 29.7 Intake and Output for Last 24 Hours 10/04/19 10/05/19 10/06/19 23:59 23:59 23:59 Intake Total 390 / 390 120 / 120 Output Total 2200 / 2200 1000 / 1000 Balance -1810 / -1810 -880 / -880 General: Alert, Cooperative, No apparent distress, - - Sitting in bedside recliner, eating breakfast. HEENT: Atraumatic, PERRLA, Normocephalic Oral: No Gingival or Mucosal Lesions/ Ulcerations Neck: Supple, No Nodes, Trachea Midline Lungs: Diminished, Rales Cardiovascular: Regular rate, Regular Rhythm, Normal S1, Normal S2, No murmurs Abdomen: Bowel Sounds Present, Soft, Non Tender Extremities: No clubbing, No cyanosis, Edema Skin: No breakdown Musculoskeletal: No Muscle Wasting Lymphatic: No Cervical, Supraclavicular, or Inguinal Adenopathy Neurological: Cranial nerves II-XII grossly intact, Neuro grossly intact Psych/Mental Status: Normal Affect, Appropriate Labs (Last 48 Hours) 10/05/19 10/05/19 10/05/19 11:25 11:25 11:25 WBC 5.2 RBC 4.30 Hgb 13.7 Hct 41.0 MCV 95.3 MCH 31.9 MCHC 33.4 RDW Std Deviation 44.8 H RDW Coeff of Malini 12.8 Plt Count 204 MPV 9.3 Immature Gran % (Auto) 0.400 Neut % (Auto) 75.5 H Lymph % (Auto) 12.5 L [place] % (Auto) 10.2 H Eos % (Auto) 0.8 Baso % (Auto) 0.6 Absolute Neuts (auto) 4.0 Absolute Lymphs (auto) 0.65 L Nucleated RBC % 0 Diff Path Review Sodium 125 L Potassium 4.4 Chloride 88 L Carbon Dioxide 35.0 H Anion Gap 2 L BUN 5 L Creatinine 0.51 L Estim Creat Clear Calc 43.91 Est GFR (MDRD) Af Amer 152 Est GFR (MDRD) Non-Af 126 BUN/Creatinine Ratio 9.8 L Glucose 105 Calcium 8.7 Troponin I < 0.015 B-Natriuretic Peptide 1716.2 H 10/05/19 10/05/19 10/06/19 15:00 17:13 04:38 WBC 4.4 RBC 3.97 L Hgb 12.6 Hct 38.0 MCV 95.7 MCH 31.7 MCHC 33.2 RDW Std Deviation 45.4 H RDW Coeff of Malini 12.8 Plt Count 198 MPV 9.4 Immature Gran % (Auto) 0.200 Neut % (Auto) 74.2 H Lymph % (Auto) 13.0 L [place] % (Auto) 11.4 H Eos % (Auto) 0.7 Baso % (Auto) 0.5 Absolute Neuts (auto) 3.2 Absolute Lymphs (auto) 0.57 L Nucleated RBC % 0 Diff Path Review May foll Sodium Potassium Chloride Carbon Dioxide Anion Gap BUN Creatinine Estim Creat Clear Calc Est GFR (MDRD) Af Amer Est GFR (MDRD) Non-Af BUN/Creatinine Ratio Glucose Calcium Troponin I < 0.015 < 0.015 B-Natriuretic Peptide 10/06/19 04:38 WBC RBC Hgb Hct MCV MCH MCHC RDW Std Deviation RDW Coeff of Malini Plt Count MPV Immature Gran % (Auto) Neut % (Auto) Lymph % (Auto) [place] % (Auto) Eos % (Auto) Baso % (Auto) Absolute Neuts (auto) Absolute Lymphs (auto) Nucleated RBC % Diff Path Review Sodium 126 L Potassium 3.2 L Chloride 88 L Carbon Dioxide 34.0 H Anion Gap 4 L BUN 5 L Creatinine 0.41 L Estim Creat Clear Calc 43.91 Est GFR (MDRD) Af Amer 195 Est GFR (MDRD) Non-Af 161 BUN/Creatinine Ratio 12.1 Glucose 94 Calcium 8.7 Troponin I B-Natriuretic Peptide Clinical Impression(s) from Imaging Studies Chest X-Ray 10/05/19 11:24 IMPRESSION: Increasing right pleural effusion with underlying infiltration and/or atelectasis. Electronically Signed: Kenneth Brad, at 11:42 EST , Service support , Current Medications Acetaminophen (Tylenol) 650 mg PO Q6H PRN PRN PRN Reason: Pain Score 1-3/Temp > 100.7 F Al Hydroxide/Mg Hydroxide (Mylanta Ii) 30 ml PO Q6H PRN PRN PRN Reason: Gastric Burning Albuterol Sulfate (Ventolin Aerosols) 2.5 mg INHALATION Q2H PRN PRN PRN Reason: DYSPNEA/WHEEZING/SOB Albuterol/Ipratropium (Duoneb) 3 ml INHALATION Q6HWA.RT [facility] Last Admin: 10/06/19 06:49 Dose: 3 ml Documented by: Budesonide (Pulmicort Aerosol) 0.5 mg INHALATION Q12H.RT [facility] Last Admin: 10/06/19 06:49 Dose: 0.5 mg Documented by: Carvedilol (Coreg) 25 mg PO BID [facility] Last Admin: 10/05/19 22:30 Dose: 25 mg Documented by: Furosemide (Lasix) 40 mg IV Q8 [facility] Last Admin: 10/06/19 05:55 Dose: 40 mg Documented by: Guaifenesin (Robitussin) 20 ml PO Q4H PRN PRN PRN Reason: COUGH Lisinopril (Zestril) 20 mg PO BID [facility] Last Admin: 10/05/19 22:30 Dose: 20 mg Documented by: Magnesium Hydroxide (Milk Of Magnesia) 30 ml PO DAILY PRN PRN PRN Reason: Constipation Melatonin (Melatonin) 3 mg PO QHS PRN PRN PRN Reason: INSOMNIA Multivitamins/Minerals (Multivitamin With Minerals) 1 tablet PO DAILY@0800 [facility] Ondansetron HCl (Zofran) 4 mg IV Q8H PRN PRN PRN Reason: NAUSEA/VOMITING Oxycodone HCl (Oxyir) 5 mg PO Q4H PRN PRN PRN Reason: Pain Score 4-5/10 Oxycodone HCl (Oxyir) 10 mg PO Q4H PRN PRN PRN Reason: Pain Score 6-10/10 Potassium Chloride (K-Dur) 20 meq PO DAILYCM [facility] Promethazine HCl (Phenergan) 25 mg IM Q6H PRN PRN PRN Reason: Breakthrough Nausea/Vomiting Rivaroxaban (Xarelto) 20 mg PO DINNER [facility] Last Admin: 10/05/19 18:26 Dose: 20 mg Documented by: Sodium Chloride () 10 - 40 ml IV UD PRN PRN Reason: SALINE FLUSH Last Admin: 10/06/19 05:55 Dose: 10 ml Documented by: Assessment/Plan All Active Problems (Last Reviewed 10/05/19 @ 13:53 by Rohan Yeh MD) Acute CHF (Acute) Thrush, oral (Resolved) RECOMMENDATIONS: 1. Continue attempts at diuresis. 2. Place consultation to cardiology as the patient's presenting symptoms appear to be related to decompensated heart failure. 3. Continue bronchodilators and inhaled corticosteroid. 4. Wean supplemental oxygen to maintain saturations at or above 90%. Encourage incentive spirometer use. 5. Hold Xarelto, should thoracentesis be required in the next 24 to 48 hours. IMPRESSIONS: 1. Acute hypoxemic respiratory insufficiency Likely secondary to right pleural effusion in the setting of decompensated heart failure. The patient's echocardiogram did reveal a depressed ejection fraction when compared to prior echocardiogram, along with valvular heart disease and pulmonary hypertension. Her BNP was elevated. Therefore, I do suspect that her pleural effusion is likely secondary to her current cardiac status. Agree with attempts at aggressive diuresis. If the patient's pleural effusion does not improve with attempts at diuretic therapy, consideration can be given to performing an ultrasound-guided thoracentesis. Accordingly, I would recommend that we empirically hold her Xarelto, should this procedure be required in the next 24 to 48 hours. In the interim, recommend weaning supplemental oxygen to maintain saturations at or above 90%. Encourage incentive spirometer use. 2. Non-small cell carcinoma of the lung The patient is currently under the management of [facility] oncology. 3. Continuous tobacco dependency I spent 5 minutes once again discussing the deleterious effects of continued tobacco use with the patient, including modalities which could be utilized to achieve a smoke-free lifestyle. 4. Baseline severe COPD without exacerbation Continue scheduled bronchodilators and inhaled corticosteroid. 5. Paroxysmal atrial fibrillation/history of breast CA/hypertension/hyponatremia/hypokalemia Complicates care, management, recovery and prognosis. Suspect electrolyte abnormalities are related to state of hypervolemia. Continue electrolyte repletion as needed. This note was generated with [employer] dictation software. It may contain incorrect words, spelling, and punctuation that were not noted in checking the note before signing. Code Visit Inpatient E&M: 18512 Init Hosp L3 - Behavior Interventions Behavior Intervention: 07298 Smoking Cessation 3-10 min
--- NOTE | 2019-10-06 07:43 | PCM.PN.HOSP ---
Patient Problems: Active and Suspected Problems (Last Reviewed 10/05/19 @ 13:53 by Rohan Yeh MD) Acute CHF (Acute) Reason for Visit: Acute congestive heart failure Subjective: Patient was admitted with acute congestive heart failure, right-sided pleural effusion,. Found to be hyponatremic and hypokalemic this morning. Objective: GENERAL: cooperative HEENT: Atraumatic; EYES; Anicteric, Normal Conjunctiva NECK; supple, normal thyroid, RESPIRATORY: Diminished to auscultation CARDIOVASCULAR: Regular S1 S2, GI: soft, normoactive bowel sounds, : No Renal angle tenderness; EXTREMITIES: Bilateral stasis dermatitis, MUSCULOSKELETAL: no muscle waisting NEURO: Awake; no lateralizing signs. SKIN: No Rash PSYCH; Flat affect Vitals/I&O's: Vital Signs Temp Pulse Resp BP Pulse Ox 97.7 F L 82 16 132/82 H 98 10/06/19 03:55 10/06/19 06:54 10/06/19 03:55 10/06/19 03:55 10/06/19 03:55 Oxygen Flow Rate (L/min) 2 Oxygen Delivery Method Nasal Cannula Weight: 79 kg Body Mass Index (BMI) 29.7 Intake and Output for Last 24 Hours 10/04/19 10/05/19 10/06/19 23:59 23:59 23:59 Intake Total 390 / 390 120 / 120 Output Total 2200 / 2200 1000 / 1000 Balance -1810 / -1810 -880 / -880 Laboratory Results 10/05/19 11:25: WBC 5.2, RBC 4.30, Hgb 13.7, Hct 41.0, MCV 95.3, MCH 31.9, MCHC 33.4, RDW Std Deviation 44.8 H, RDW Coeff of Malini 12.8, Plt Count 204, MPV 9.3, Immature Gran % (Auto) 0.400, Neut % (Auto) 75.5 H, Lymph % (Auto) 12.5 L, [place] % (Auto) 10.2 H, Eos % (Auto) 0.8, Baso % (Auto) 0.6, Absolute Neuts (auto) 4.0, Absolute Lymphs (auto) 0.65 L, Nucleated RBC % 0 10/05/19 11:25: Sodium 125 L, Potassium 4.4, Chloride 88 L, Carbon Dioxide 35.0 H, Anion Gap 2 L, BUN 5 L, Creatinine 0.51 L, Estim Creat Clear Calc 43.91, Est GFR (MDRD) Af Amer 152, Est GFR (MDRD) Non-Af 126, BUN/Creatinine Ratio 9.8 L, Glucose 105, Calcium 8.7, Troponin I < 0.015 10/05/19 11:25: B-Natriuretic Peptide 1716.2 H 10/05/19 15:00: Troponin I < 0.015 10/05/19 17:13: Troponin I < 0.015 10/06/19 04:38: WBC 4.4, RBC 3.97 L, Hgb 12.6, Hct 38.0, MCV 95.7, MCH 31.7, MCHC 33.2, RDW Std Deviation 45.4 H, RDW Coeff of Malini 12.8, Plt Count 198, MPV 9.4, Immature Gran % (Auto) 0.200, Neut % (Auto) 74.2 H, Lymph % (Auto) 13.0 L, [place] % (Auto) 11.4 H, Eos % (Auto) 0.7, Baso % (Auto) 0.5, Absolute Neuts (auto) 3.2, Absolute Lymphs (auto) 0.57 L, Nucleated RBC % 0, Diff Path Review February10/06/19 04:38: Sodium 126 L, Potassium 3.2 L, Chloride 88 L, Carbon Dioxide 34.0 H, Anion Gap 4 L, BUN 5 L, Creatinine 0.41 L, Estim Creat Clear Calc 43.91, Est GFR (MDRD) Af Amer 195, Est GFR (MDRD) Non-Af 161, BUN/Creatinine Ratio 12.1, Glucose 94, Calcium 8.7 Current Medications Acetaminophen (Tylenol) 650 mg PO Q6H PRN PRN PRN Reason: Pain Score 1-3/Temp > 100.7 F Al Hydroxide/Mg Hydroxide (Mylanta Ii) 30 ml PO Q6H PRN PRN PRN Reason: Gastric Burning Albuterol Sulfate (Ventolin Aerosols) 2.5 mg INHALATION Q2H PRN PRN PRN Reason: DYSPNEA/WHEEZING/SOB Albuterol/Ipratropium (Duoneb) 3 ml INHALATION Q6HWA.RT [facility] Last Admin: 10/06/19 06:49 Dose: 3 ml Documented by: Budesonide (Pulmicort Aerosol) 0.5 mg INHALATION Q12H.RT [facility] Last Admin: 10/06/19 06:49 Dose: 0.5 mg Documented by: Carvedilol (Coreg) 25 mg PO BID [facility] Last Admin: 10/05/19 22:30 Dose: 25 mg Documented by: Furosemide (Lasix) 40 mg IV Q8 [facility] Last Admin: 10/06/19 05:55 Dose: 40 mg Documented by: Guaifenesin (Robitussin) 20 ml PO Q4H PRN PRN PRN Reason: COUGH Lisinopril (Zestril) 20 mg PO BID [facility] Last Admin: 10/05/19 22:30 Dose: 20 mg Documented by: Magnesium Hydroxide (Milk Of Magnesia) 30 ml PO DAILY PRN PRN PRN Reason: Constipation Melatonin (Melatonin) 3 mg PO QHS PRN PRN PRN Reason: INSOMNIA Multivitamins/Minerals (Multivitamin With Minerals) 1 tablet PO DAILY@0800 [facility] Ondansetron HCl (Zofran) 4 mg IV Q8H PRN PRN PRN Reason: NAUSEA/VOMITING Oxycodone HCl (Oxyir) 5 mg PO Q4H PRN PRN PRN Reason: Pain Score 4-5/10 Oxycodone HCl (Oxyir) 10 mg PO Q4H PRN PRN PRN Reason: Pain Score 6-10/10 Potassium Chloride (K-Dur) 20 meq PO DAILYCM [facility] Promethazine HCl (Phenergan) 25 mg IM Q6H PRN PRN PRN Reason: Breakthrough Nausea/Vomiting Rivaroxaban (Xarelto) 20 mg PO DINNER [facility] Last Admin: 10/05/19 18:26 Dose: 20 mg Documented by: Sodium Chloride () 10 - 40 ml IV UD PRN PRN Reason: SALINE FLUSH Last Admin: 10/06/19 05:55 Dose: 10 ml Documented by: STROKE Vital Signs/Narrative: Vital Signs Temp Pulse Resp BP Pulse Ox 10/06/19 06:54 82 10/06/19 03:55 97.7 F L 81 16 132/82 H 98 Medical Necessity - Tobacco Use Smoking Status: Current some day smoker Assessment/Plan All Active Problems (Last Reviewed 10/05/19 @ 13:53 by Rohan Yeh MD) Acute CHF (Acute) Thrush, oral (Resolved) Patient is a 73-year-old lady who presented with progressive shortness of breath and assessment of acute congestive heart failure made admitted to monitored nursing floor further management 1. Acute congestive heart failure with reduced ejection fraction. ?Echo obtained on 04/29/2018 demonstrated preserved ejection fraction of 50%. Patient has been admitted to monitored bed placed on strict input and output: Daily weight, low-sodium diet and IV Lasix. Repeat echo ordered for EF assessment ?10/06/2019; repeat echo demonstrated Normal LV size. The estimated ejection fraction is 37 %. No regional wall motion abnormalities noted. The right atrium is mildly enlarged. Moderate pulmonary hypertension. Pulmonary artery systolic pressure is 60 mmHg. Small pericardial effusion. Consult was placed to cardiology given patient significantly reduced ejection fraction 2. Right-sided pleural effusion ~[place] to be related to patient acute congestive heart failure. Patient had previously been seen and evaluated by Dr. Campos with pulmonary medicine consult placed to him case discussed with him. Did discuss about possibility of patient undergoing ultrasound-guided thoracocentesis if pleural effusion persist. Repeat chest x-ray ordered for 10/07/2019. 2. Paroxysmal atrial fibrillation ~ rate controlled on systemic anticoagulation with Xarelto did continue ?10/06/2019; Xarelto held in anticipation of possible ultrasound-guided thoracocentesis 3. COPD ~ Currently not in exacerbation did continue patient home aerosol regimen 4. History of breast CA ~status post chemoradiation with left mastectomy and right lumpectomy and has since remained in remission 5. Non-small cell carcinoma of lung ?Involving the left upper lobe. Patient was treated with radiation therapy. Patient was deemed to be a poor surgical candidate for resection in view of her severe underlying obstructive lung disease. Patient is managed by Dr. Cazares as outpatient 6. Hypertension ~ blood pressure controlled, home medications continued with dose adjustment as needed 7. Tobacco dependence counseled on cessation, offered nicotine patch for tobacco cravings 8. DVT prophylaxis ~ Xarelto 9. Hyponatremia ~Thought to be secondary to patient fluid overload status as well as possible SIADH given patient history of lung CA 10. Hypokalemia ~Corrected per protocol. Subsequent BMP ordered for monitoring Code Visit Inpatient E&M: 83779 [facility] Hosp L3
[2019-10-06] MEDS: Multivitamins,Ther W-Minerals Tablet 1 TABLET PO (08:58)
[2019-10-06] MEDS: Carvedilol 25 MG Tablet PO ×2 (08:58→21:37)
[2019-10-06] MEDS: Lisinopril 20 MG Tablet PO ×2 (08:58→21:37)
--- NOTE | 2019-10-06 11:02 | CON.PCM_ITS ---
<Manolo Rothman - Last Filed: 10/06/19 12:35> Problem List (1) Paroxysmal atrial fibrillation Status: Chronic (2) Nonrheumatic mitral (valve) insufficiency Status: Chronic (3) Acute CHF Status: Acute Qualifiers: Heart failure type: diastolic Qualified Code(s): I50.31 - Acute diastolic (congestive) heart failure (4) Hypertension Status: Chronic Qualifiers: Hypertension type: essential hypertension Qualified Code(s): I10 - Essential (primary) hypertension Reason for Consult Date of Consultation: 10/06/19 Reason for Consultation: CHF, PAF, Mitral Valve Insufficiency History of Present Illness: The patient is a 73 year old F who presented to [facility] Emergency Department on 10/05/2019 for ongoing shortness of breath on exertion and lower extremity bilateral edema. She has a past medical history of atrial fibrillation, diastolic congestive heart failure, breast cancer status post mastectomy, chemotherapy, and radiation, lung cancer status post radiation therapy in September 2018 x 5 treatments, COPD, hypertension, and tobacco abuse starting at age 20. Her Emergency Department work-up revealed an EKG showing atrial fibrillation wit h a controlled rate without acute ST or T wave changes. Her chest x-ray revealed a right pleural effusion and infiltrate/atelectasis. Her BNP was elevated at 1300. She received IV Lasix and was admitted for further evaluation. She underwent an echocardiogram on 10/05/2019 that showed ejection fraction of 37%, no regional wall motion abnormalities, mildly enlarged right atrium, moderate pulmonary hypertension RVSP of 60 mmHg, 3+ moderately severe mitral valve insufficiency, and small pericardial effusion. Her previous echocardiogram in December 2017 showed ejection unction of 60%, no regional wall motion abnormalities, mild right atrial enlargement, 1+ mitral valve regurgitation, RVSP of 43 mmHg, and trivial pericardial effusion. Due to symptoms and changes on echocardiogram, cardiology was consulted for further input. Past Medical History Allergies/Adverse Reactions: Allergies albuterol sulfate [From Combivent] Allergy (Verified 10/05/19 11:08) Swelling ipratropium bromide [From Combivent] Allergy (Verified 10/05/19 11:08) Swelling metoprolol Allergy (Verified 10/05/19 11:08) Laryngospasms Sulfa (Sulfonamide Antibiotics) Allergy (Verified 10/05/19 11:08) Rash beclomethasone [From Qvar] Adverse Reaction (Verified 10/05/19 11:08) COUGHING benzalkonium chloride [From Merthiolate (benzalkonium)] Adverse Reaction (Verifi ed 10/05/19 11:08) Other codeine Adverse Reaction (Verified 10/05/19 11:08) doesn't remember doxycycline Adverse Reaction (Verified 10/05/19 11:08) Abd cramps/diarrhea formoterol fumarate [From Dulera] Adverse Reaction (Verified 10/05/19 11:08) Other hydrochlorothiazide Adverse Reaction (Verified 10/05/19 11:08) Other ibuprofen [From Advil] Adverse Reaction (Verified 10/05/19 11:08) Other iodine Adverse Reaction (Verified 10/05/19 11:08) Itching merbromin Adverse Reaction (Verified 10/05/19 11:08) Other mometasone furoate [From Dulera] Adverse Reaction (Verified 10/05/19 11:08) Other oseltamivir [From Tamiflu] Adverse Reaction (Verified 10/05/19 11:08) uterine pain prednisone Adverse Reaction (Verified 10/05/19 11:08) Abd cramps/diarrhea PLASTIC TAPE Allergy (Uncoded 10/05/19 11:08) Rash Home Medications: Ambulatory Orders Medication Instructions Recorded Albuterol Inhaler [Ventolin Hfa] 1 - 2 puff INHALATION Q4H PRN PRN 10/16/16 carvedilol 25 mg tablet 25 mg PO BID #180 tab 02/02/19 quinapril 20 mg tablet 20 mg PO BID #180 tab 02/02/19 rivaroxaban 20 mg tablet 20 mg PO DINNER #30 tab 02/02/19 fluticasone propionate-salmeterol 2 puff INHALATION BID #1 device 04/08/19 230 mcg-21 mcg/actuation HFA inhaler furosemide 40 mg tablet 40 mg PO BID #120 tab 07/23/19 potassium chloride 20 mEq 20 meq PO DAILY #90 tab 07/23/19 tablet,extended release Multivit-Min/Iron/Folic/Lutein 1 tab PO DAILY 10/05/19 [Centrum Silver Women Tablet] Tiotropium [place] [Spiriva 2 puff INHALATION BID 10/05/19 Respimat] Past Medical History (Chronic Problems): Chronic Problems (Last Reviewed 10/05/19 @ 13:53 by Rohan Yeh MD) Paroxysmal atrial fibrillation (Chronic) Atrial fibrillation (Chronic) Nonrheumatic mitral (valve) insufficiency (Chronic) Lung mass (Chronic) Suspected chronic obstructive pulmonary disease based on initial evaluation (Chronic) History of breast cancer (Chronic) COPD (chronic obstructive pulmonary disease) (Chronic) Hypertension (Chronic) Surgical History: mastectomy Psychiatric History: No pertinent psych hx NURSING EDUCATOR History: No pertinent NURSING EDUCATOR history - *Family History Maternal Family History: Family History (Last Reviewed 10/05/19 @ 13:53 by Rohan Yeh MD) Father Emphysema of lung Sister Cancer History Items: No pertinent history Paternal Family History: Family History (Last Reviewed 10/05/19 @ 13:53 by Rohan Yeh MD) Father Emphysema of lung Sister Cancer History Items: No pertinent history Smoking Status: Current some day smoker Review of Systems - Review of Systems General: Denies: Fever, Fatigue, Malaise, Chills HEENT: Denies: Vision Change Cardiovascular: Reports: Shortness of Breath, Shortness of Breath with Exertion, Peripheral Edema. Denies: Chest Discomfort, Chest Discomfort at Rest, Chest Discomfort with Exertion, Chest Pressure, Chest Tightness, Chest Heaviness, Shortness of Breath at Rest, Orthopnea, PND, Palpitations, Lightheadedness, Dizziness, Near Syncope, Syncope, Orthostatic Symptoms, Claudication Respiratory: Reports: Cough Neurological: Denies: Dizziness Subjectve: Patient seen and evaluated. She does acknowledge improvement in shortness of breath since admission. Her activity level has been very limited. She denies any ongoing chest pain today or prior to admission. She does continue to have fatigue with minimal activity. Objective: Vital Signs Temp Pulse Resp BP Pulse Ox 97.5 F L 78 18 135/76 H 92 10/06/19 08:57 10/06/19 08:57 10/06/19 08:57 10/06/19 08:57 10/06/19 08:57 Oxygen Flow Rate (L/min) 2 Oxygen Delivery Method Nasal Cannula Weight: 174 lb 2.643 oz Body Mass Index (BMI) 29.7 Intake and Output for Last 24 Hours 10/04/19 10/05/19 10/06/19 23:59 23:59 23:59 Intake Total 390 / 390 120 / 120 Output Total 2200 / 2200 1000 / 1000 Balance -1810 / -1810 -880 / -880 General: Healthy Appearing, Awake, Alert, Oriented x 3, Cooperative, No Acute Distress Neck: No Lymph Node Enlargement Lungs: Diminished Right Base, - - Inspiratory left base crackles Cardiovascular: Irregular Rhythm, Normal S1, Normal S2, No Rubs, No Gallops Murmur Murmur: Grade 2/6, Soft, LLSB Vascular: No Carotid Bruits Abdomen: Bowel Sounds Present, Soft Extremities: No Cyanosis, No Clubbing, Normal Capillary Refill, Bilateral Edema +3 Skin: No Rashes, No Breakdown, No Tears, No Excoriation, No Ulcers Neurological: No Focal Motor or Sensory Deficit Psych/Mental Status: Appropriate, Normal Affect 10/05/19 11:25: WBC 5.2, RBC 4.30, Hgb 13.7, Hct 41.0, MCV 95.3, MCH 31.9, MCHC 33.4, Plt Count 204, MPV 9.3, Immature Gran % (Auto) 0.400, Neut % (Auto) 75.5 H , Lymph % (Auto) 12.5 L, [place] % (Auto) 10.2 H, Eos % (Auto) 0.8, Baso % (Auto) 0.6, Absolute Neuts (auto) 4.0, Nucleated RBC % 0 10/05/19 11:25: Sodium 125 L, Potassium 4.4, Chloride 88 L, Carbon Dioxide 35.0 H, Anion Gap 2 L, BUN 5 L, Creatinine 0.51 L, Est GFR (MDRD) Af Amer 152, Est GFR (MDRD) Non-Af 126, BUN/Creatinine Ratio 9.8 L, Glucose 105, Calcium 8.7, Troponin I < 0.015 10/05/19 11:25: B-Natriuretic Peptide 1716.2 H 10/05/19 15:00: Troponin I < 0.015 10/05/19 17:13: Troponin I < 0.015 10/06/19 04:38: WBC 4.4, RBC 3.97 L, Hgb 12.6, Hct 38.0, MCV 95.7, MCH 31.7, MCHC 33.2, Plt Count 198, MPV 9.4, Immature Gran % (Auto) 0.200, Neut % (Auto) 74.2 H, Lymph % (Auto) 13.0 L, [place] % (Auto) 11.4 H, Eos % (Auto) 0.7, Baso % (Auto) 0.5, Absolute Neuts (auto) 3.2, Nucleated RBC % 0 10/06/19 04:38: Sodium 126 L, Potassium 3.2 L, Chloride 88 L, Carbon Dioxide 34.0 H, Anion Gap 4 L, BUN 5 L, Creatinine 0.41 L, Est GFR (MDRD) Af Amer 195, Est GFR (MDRD) Non-Af 161, BUN/Creatinine Ratio 12.1, Glucose 94, Calcium 8.7 Rhythm: EKG: ECHO: 10/05/2019 Interpretation Summary Normal LV size. The estimated ejection fraction is 37 %. No regional wall motion abnormalities noted. The right atrium is mildly enlarged. Moderate pulmonary hypertension. Pulmonary artery systolic pressure is 60 mmHg. Small pericardial effusion. ECHO: 12/31/2017 Interpretation Summary Mild concentric left ventricular hypertrophy. The estimated ejection fraction is 60 %. The left atrium is moderately enlarged. The right atrium is mildly enlarged. Mild (1+) mitral valve insufficiency. Trivial tricuspid valve insufficiency. Right ventricular systolic pressure estimated to be 43 mmHg. Mild pulmonary hypertension. Trivial pericardial effusion. There are no echocardiographic indications of cardiac tamponade. PT appears to be in atrial fibrillation. There is no comparison study available. The study was technically difficult. Stress Test: Cardiac Cath: PCI: CT Surgery: Holter monitor: EPS: PPM: CXR: Chest CT Scan: Assessment/Plan 1. Congestive heart failure Patient's echocardiogram showed ejection fraction of 37%. Compared to December 2017 this is reduced from 60%. Her echocardiogram did reveal 3+ mitral valve insufficiency versus 1+ mitral valve insufficiency previously. Her RVSP has increased from 43 mmHg to 60 mmHg. Her BNP on admission was elevated at 1300. She does acknowledge improvement in symptoms since admission. At this time, she will continue with IV diuretic therapy and electrolyte replacement. She will continue with DOUGLAS inhibitor and beta-donovan therapy. Possible etiology for reduced ejection fraction include radiation therapy 1 year ago for left sided small cell lung cancer and previous breast cancer treatment, atrial fibrillation, worsening mitral valve disease, or undiagnosed coronary artery disease. It appears that her Xarelto is currently on hold for potential thoracentesis on 10/07/2019. Thus, cardioversion will be considered at a later date. In regards to medication therapy, Aldactone and Entresto can be considered based on overall work-up. Her case will be discussed with Dr. Lawrence in regards to stress testing to further rule out coronary artery disease. Her troponin has been negative x3. She denies any chest pain prior to admission. Her EKG was negative for acute ST or T wave changes. However, she does acknowledge very low level energy and gets fatigued very easily, which could be an anginal equivalent. She may require stress test and/or heart catheterization to further rule out coronary artery disease. Her last dose of Xarelto appears to have been yesterday on 10/05/2019. 2. Paroxysmal atrial fibrillation At this time, her rate is well controlled. As mentioned above, her Xarelto is being held for thoracentesis. She will continue with current beta-donovan. She will resume Xarelto once clinically stable and indicated. Cardioversion could be considered, even on an outpatient basis if still indicated. 3. Hypertension Patient's blood pressure is well-controlled. We will continue to monitor. We will not make any medication regimen changes. 4. Mitral valve insufficiency This has worsened compared to previous echocardiogram. This may be due to to worsening valvular disease or fluid volume overload state. This will need to be reassessed in the future post diuresis. This can be done on an outpatient basis. 5. COPD This will be evaluated and managed by Automobile Assembly Supervisor and Primary team. Patient's case was discussed with Dr. Lawrence, who also will personally evaluate patient. Thank you for allowing us to participate in the patients plan of care, if you have any questions please do not hesitate to call. This note was generated using a voice recognition system and there may be incorrect words, spelling or punctuation that were not noted when reviewing the office note prior to saving. <Apolinar Lawrence - Last Filed: 10/06/19 17:48> Reason for Consult History of Present Illness: The patient is a 73 year old F [] Past Medical History - *Family History Maternal Family History: Family History (Last Reviewed 10/05/19 @ 13:53 by Rohan Yeh MD) Father Emphysema of lung Sister Cancer Paternal Family History: Family History (Last Reviewed 10/05/19 @ 13:53 by Rohan Yeh MD) Father Emphysema of lung Sister Cancer Objective: Vital Signs Temp Pulse Resp BP Pulse Ox 98.1 F 87 16 120/67 92 10/06/19 14:52 10/06/19 15:02 10/06/19 14:52 10/06/19 14:52 10/06/19 14:52 Oxygen Flow Rate (L/min) 92 Oxygen Delivery Method Room Air Weight: 174 lb 2.643 oz Body Mass Index (BMI) 29.7 Intake and Output for Last 24 Hours 10/04/19 10/05/19 10/06/19 23:59 23:59 23:59 Intake Total 390 / 390 240 / 240 Output Total 2200 / 2200 1400 / 1400 Balance -1810 / -1810 -1160 / -1160 10/05/19 17:13: Troponin I < 0.015 10/06/19 04:38: WBC 4.4, RBC 3.97 L, Hgb 12.6, Hct 38.0, MCV 95.7, MCH 31.7, MCHC 33.2, Plt Count 198, MPV 9.4, Immature Gran % (Auto) 0.200, Neut % (Auto) 74.2 H, Lymph % (Auto) 13.0 L, [place] % (Auto) 11.4 H, Eos % (Auto) 0.7, Baso % (Auto) 0.5, Absolute Neuts (auto) 3.2, Nucleated RBC % 0 10/06/19 04:38: Sodium 126 L, Potassium 3.2 L, Chloride 88 L, Carbon Dioxide 34.0 H, Anion Gap 4 L, BUN 5 L, Creatinine 0.41 L, Est GFR (MDRD) Af Amer 195, Est GFR (MDRD) Non-Af 161, BUN/Creatinine Ratio 12.1, Glucose 94, Calcium 8.7 Rhythm: EKG: ECHO: Stress Test: Cardiac Cath: PCI: CT Surgery: Holter monitor: EPS: PPM: CXR: Chest CT Scan: Assessment/Plan Addendum: Date: 10-06-19 The patient was independently evaluated and examined The patient originally complained of concerns of a infection of the lower extremity. Upon evaluation at the [facility] she was found to have concerns of underlying volume overload and CHF . She has subsequently undergone additional evaluation which demonstrated negative troponin I levels, and elevated BNP level, and a transthoracic echocardiogram suggesting her LVEF had declined to 37% with additional findings of moderately severe MR, moderate TR, and an estimated RV systolic pressure of 60 mmHg compatible with pulmonary hypertension. She states that she is short of breath and dyspneic at home. She sleeps in a recliner because she cannot lie flat because she cannot breathe comfortably. She has been having edema of her lower extremities including up to her thigh regions. She denies ongoing chest discomfort at this time. There is been no near syncope or syncope. She does have a history of atrial fibrillation and she appears to be in atrial fibrillation at this time. She states she is unaware of her underlying rate or rhythm. On examination her lungs demonstrate diminished breath sounds bilaterally. Her cardiovascular exam demonstrates an irregular rhythm with a normal S1-S2 and a soft 2/6 somewhat holosystolic murmur in the apex/left axillary region. Her lower extremities demonstrate positive peripheral pitting edema in her thigh area. Her legs are wrapped in Douglas wraps bilaterally. Her transthoracic echocardiogram is as noted. At the present time the concerns are related to her underlying atrial dysrhythmia, congestive heart failure which had previously been considered diastolic but now based upon diminished LV systolic function may be systolic mediated, mitral valve regurgitation, elevated pulmonary pressures and a right- sided pleural effusion. This is superimposed upon a history of underlying COPD. The etiology of her declining LV systolic function is uncertain. There would be concerns about the possibility of CAD, her mitral valve disease process contributing to her diminished LV systolic function, or her previous breast carcinoma chemotherapy and/or radiation therapy. At the moment from a cardiac standpoint she is continue to be monitored. She will continue medical therapy. This will include a combination of medicines for her underlying atrial dysrhythmia and appearance of a cardiomyopathy and systolic mediated CHF as well as her mitral valve regurgitation and elevated pulmonary pressures. Her medication combination can include agent such as nitrates, beta-blockers, diuretics, and afterload reducing agents with adjustment as needed. She has been on anticoagulant therapy. This is being temporarily interrupted for the possibility of a thoracentesis procedure. From a further diagnostic standpoint, once she is symptomatically improved she may need to be considered for further noninvasive and/or invasive studies to further evaluate further etiologies of her diminishing LV systolic function such as coronary artery disease with either noninvasive studies and/or diagnostic cardiac catheterization. The above was discussed with the patient and her spouse. The above was also discussed with Manolo Rothman CNP. Thank you for allowing me to participate in the care of your patient. Please don't hesitate to call if any issues arise
--- NOTE | 2019-10-06 11:10 | NURSING ---
wound photo: right posterolateral lower leg
--- NOTE | 2019-10-06 11:11 | NURSING ---
wound photo: left medial lower leg
[2019-10-06 12:07] LABS: Pathologist Review Reviewed
--- NOTE | 2019-10-06 13:28 | CASEMGMT ---
Social Work Palliative Care Screening Tool completed with a patient score of 6. SW met with pt and spouse and presented the Palliative Medicine Program. Pt states she will accept written information and consider program but is not interested in a referral at this time. RADHA Webber
--- NOTE | 2019-10-06 14:20 | CASEMGMT ---
RN CM Assessment Introduced role of RN CM to patient and patient Bernardino at bedside.? Patient is alert, oriented and able?to participate in RN CM Assessment. ?Care providers, pharmacy, and demographics verified. Presentation: Bilt LE swelling. H/o CHF w/preserved EF. Admit Dx: CHF Re-Admit: No Barriers/Issues: None. Discussed CHF and offered CCN referral, declines at this point and states that they will f/u with the providers first to see what they need to do. States has a scale at home to weigh self, denies being told on a sodium and fluid restriction yet. PCP: latonia Brandt Specialists: Cardio- Dr Jovel, Pulm- Dr Campos Preferred [facility]acy: [facility] Insurance: [employer], [facility]:?Yes ?LNOK: Bernardino Vallejo LW/HPOA: Not addressed by this group underwriter at this time. Living Arrangements:? Lives with her in a SSh, 4 steps to enter home at one entrance, 3 steps to enter at another entrance ADL?s: WC Bound, can walk 3-4ft to transfer places. Transportation: , denies any transportation issues. DME: WC, denies any other DME HHC: None SNF: None Goal: Home and does not think will have any needs. Denies any issues, concerns, or questions at this time. Aware CM remains available for any emerging needs. DC PLAN: Home with no anticipated needs identified at this time. PT/OT currently at bedside during RNCM assessment to work with patient. CM to f/u on PT/OT progression for any further care coordination needs. Mono Mckenna, ARACELI
--- NOTE | 2019-10-06 14:31 | CASEMGMT ---
RN CM Assessment Introduced role of RN CM to patient and patient Bernardino at bedside.? Patient is alert, oriented and able?to participate in RN CM Assessment. ?Care providers, pharmacy, and demographics verified. Presentation: Bilt LE swelling. H/o CHF w/preserved EF. Admit Dx: CHF Re-Admit: No Barriers/Issues: None. Discussed CHF and offered CCN referral, declines at this point and states that they will f/u with the providers first to see what they need to do. States has a scale at home to weigh self, denies being told on a sodium and fluid restriction yet. PCP: latonia Brandt- does not want to see him anymore and wants to switch, agreed to pcp list- this commercial loan underwriter provided pcp list. Specialists: Cardio- Dr Jovel, Pulm- Dr Campos Preferred Pharmacy: [facility] Insurance: [facility], [facility] Benef[facility]:?Yes ?LNOK: Bernardino Vallejo LW/HPOA: Denies/None. Denies offered information or completion on this admission. Living Arrangements:? Lives with her in a SSh, 4 steps to enter home at one entrance, 3 steps to enter at another entrance ADL?s: WC Bound, can walk 3-4ft to transfer places. Transportation: , denies any transportation issues. DME: WC, denies any other DME HHC: None SNF: None Goal: Home and does not think will have any needs. Denies any issues, concerns, or questions at this time. Aware CM remains available for any emerging needs. DC PLAN: Home with no anticipated needs identified at this time. PT/OT currently at bedside during RNCM assessment to work with patient. CM to f/u on PT/OT progression for any further care coordination needs. ARACELI Hull
[2019-10-06] MEDS: guaiFENesin 10 ML UDC (200MG/10ML) 20 ML PO (16:19)
[2019-10-06] MEDS: Spironolactone 25 MG Tablet PO (18:33)
[2019-10-06] MEDS: Benzonatate 100 MG Capsule PO (21:37)
[2019-10-06] MEDS: guaiFENesin 1,200 MG Tablet 1200 MG PO (21:38)
[2019-10-07] VITALS (15 sets, daily range): BP systolic 99–144; BP diastolic 58–86; PULSE 65–90; RESP 16–22; TEMP 36.4–37; O2SAT 93–100
--- NOTE | 2019-10-07 | FLU_PTH ---
PATIENT: EUNICE BRAVO LOC: PCU U#:[id number] AGE/SX: 73/F [facility]OM: [facility] RE10/05/[address]: Dr. Rohan Yeh MD : 1945 BED: 1 DIS: 10/08/2019 SPEC #: [id number] RECD: 10/07/19 14:31 STATUS: KEVIN REQ #: [id number] ELSA: 10/07/19 00:[address]: Rohan Yeh DEPT: CYTOLOGY RECD BY: Swapnil Alberts ENTERED: 10/08/19 08:57 SP TYPE: Fluid OTHR DR: DO Dr. Apolinar Coles MD Dr. William Lago, MD Tissues: THORACIC FLUID Procedures: Special Stain Group II Surgery Specimen Level IV Cytospin Fluid HEADER OPERATION: Ultrasound-guided thoracentesis PRE-OP DIAGNOSIS: Right pleural effusion TISSUE SUBMITTED: Thoracentesis fluid for cytology DIAGNOSIS CYTOLOGY Thoracentesis fluid for cytology (cytospin and cell block): Negative for malignant cells. See comment. PADMAJA:jayden 10/09/19 COMMENT Please make reference to previous specimens ([id number] and [id number]) lung, CT-guided biopsies with diagnosis of malignant cells present consistent with non-small cell carcinoma, adenocarcinoma. CYTOLOGY STUDY Slides are reviewed. CYTOLOGY GROSS Received is 100 ml of red cloudy fluid labeled with the patient's name and and designated per the requisition as thoracentesis. Submitted for cytology preparation including cell block. / PADMAJA:jayden 10/08/19 TC:5 CPT: 71672, 58429
--- NOTE | 2019-10-07 05:55 | RAD_ITS ---
We are attempting to reach an attending provider to discuss findings. An addendum with communication details will be sent when the communication is complete. HISTORY: RT SIDED PLEURAL EFFUSION EXAM: XR Chest 1 View: COMPARISON: October 05, 2019 FINDINGS: # of images incl. paperwork: 1 Bilateral pleural effusions right greater than left are similar sizes to previous study. Left lung airspace disease similar in distribution and severity of the previous study. A right pneumothorax is present. It is small in apical, less than 10%. Bilateral axillary surgical clips. Scoliosis. Severe calcific plaque within the aortic arch. Likely cardiomegaly. Shoulder arthritis. RAD/Chest 1 View IMPRESSION: Small right apical pneumothorax, perhaps 10%. Bilateral pleural effusion right greater than left. Persistent left lung disease. at 0543 Reported and signed by: Norm Vega MD Electronically Signed: Norm Vega MD at 5:42 EST Tel , Service support ,
[2019-10-07 06:34] LABS: Absolute Lymphocyte Count 0.61 X10^3/uL (0.83-4.51); Absolute Neutrophil Count 2.9 X10^3/uL (2.0-7.7); Basophil# 0.02 X10^3/uL; Basophil% 0.5 % (0-1); Eosinophil# 0.03 X10^3/uL; Eosinophils% 0.7 % (0-5); Hematocrit 36.4 % (37-47); Hemoglobin 11.9 g/dL (12.0-15.0); Lymphocyte # 0.61 X10^3/ul (4.0); Lymphocyte % 14.9 % (19-41); Mean Corp Hgb Conc 32.7 g/dL (32-36); Mean Corpuscular Hgb 31.4 pg (27.0-32.0); Mean Platelet Vol. 9.3 fl (6.2-12.0); Monocyte% 12.2 % (0-10); NRBC Flagged by Analyzer 0 % (0-5); Neutrophil # 2.93 X10^3/uL (2.7-7.7); Neutrophil % 71.5 % (47-70); Platelet Count 184 K/mm3 (150-450); RBC Distribution Width SD 46.5 fl (35.1-43.9); Red Blood Count 3.79 M/mm3 (4.2-5.4); White Blood Count 4.1 K/mm3 (4.4-11.0)
--- NOTE | 2019-10-07 06:35 | PN_ITS ---
Progress Note Notified on a 10% right apical pneumothorax. Patient already on oxygen by nasal cannula. Patient is stable. Discussed with wind commissioning technician. STROKE Vital Signs/Narrative: Vital Signs Temp Pulse Resp BP Pulse Ox 10/07/19 03:45 97.8 F 85 18 127/67 H 94 10/07/19 03:02 71
[2019-10-07] MEDS: Furosemide 40 MG/4 ML Vial IV ×3 (06:37→21:03)
[2019-10-07] MEDS: 0.9% Saline Lock 10 ML Syringe IV ×2 (06:38→14:39)
[2019-10-07] MEDS: Budesonide Respules 0.5 MG/2 ML AMPUL.NEB. INHALATION ×2 (06:48→19:05)
[2019-10-07] MEDS: Ipratropium/Albuterol Sulfate 3 ML AMPUL.NEB INHALATION ×3 (06:48→19:05)
--- NOTE | 2019-10-07 06:51 | PN_ITS ---
Patient Problems: Active and Suspected Problems (Last Reviewed 10/05/19 @ 13:53 by Rohan Yeh MD) Acute CHF (Acute) Subjective: The patient was seen and examined at the bedside this morning. Events from the last 24 hours have been reviewed. The patient is currently afebrile, hemodynamically stable and maintaining appropriate oxygen saturations on 2 L/min via nasal cannula. I was contacted this morning by the overnight hospitalist with regards to the patient's morning plain film chest x-ray, which reportedly demonstrated a small right apical pneumothorax. However, on my review of the patient's plain film chest x-ray from this morning, I suspect that it is her overlying oxygen tubing which may have given the perception of a pneumothorax. A noncontrasted chest CT was completed this morning as well and personally reviewed. There is no evidence of pneumothorax on CT scan. The patient does have stable appearing left mid lung field lung changes along with a right-sided pleural effusion. Objective: The patient's most recent lab work, culture data and imaging studies have all been personally reviewed. Surface echocardiogram revealed normal LV size with an ejection fraction of 37%. No regional wall motion abnormalities were identified. There was moderately severe mitral valve insufficiency, moderate tricuspid valve insufficiency and a pulmonary artery systolic pressure estimated to be 60 mmHg. - Physical Exam Vitals/I&O's: Vital Signs Temp Pulse Resp BP Pulse Ox 97.8 F 85 18 127/67 H 94 10/07/19 03:45 10/07/19 03:45 10/07/19 03:45 10/07/19 03:45 10/07/19 03:45 Oxygen Flow Rate (L/min) 2 Oxygen Delivery Method Nasal Cannula Weight: 171 lb 15.369 oz Body Mass Index (BMI) 29.7 Intake and Output for Last 24 Hours 10/05/19 10/06/19 10/07/19 23:59 23:59 23:59 Intake Total 390 / 390 1071 / 1071 200 / 200 Output Total 2200 / 2200 1750 / 1750 1100 / 1100 Balance -1810 / -1810 -679 / -679 -900 / -900 General: Alert, Cooperative, No apparent distress, - - Sitting in bedside recliner. is present at the bedside. HEENT: Atraumatic, PERRLA, Normocephalic Oral: No Gingival or Mucosal Lesions/ Ulcerations Neck: Supple, No Nodes, Trachea Midline Lungs: Diminished Cardiovascular: Normal S1, Normal S2, Irregular Rate, Murmur Abdomen: Bowel Sounds Present, Soft, Non Tender Extremities: No clubbing, No cyanosis, Edema Skin: - - Wrapped lower extremities. Musculoskeletal: No Tenderness to Palpation of Joints or Extremities Lymphatic: No Cervical, Supraclavicular, or Inguinal Adenopathy Neurological: Cranial nerves II-XII grossly intact, Neuro grossly intact Psych/Mental Status: Normal Affect, Appropriate Labs (Last 48 Hours) 10/05/19 10/05/19 10/05/19 11:25 11:25 11:25 WBC 5.2 RBC 4.30 Hgb 13.7 Hct 41.0 MCV 95.3 MCH 31.9 MCHC 33.4 RDW Std Deviation 44.8 H RDW Coeff of Malini 12.8 Plt Count 204 MPV 9.3 Immature Gran % (Auto) 0.400 Neut % (Auto) 75.5 H Lymph % (Auto) 12.5 L [place] % (Auto) 10.2 H Eos % (Auto) 0.8 Baso % (Auto) 0.6 Absolute Neuts (auto) 4.0 Absolute Lymphs (auto) 0.65 L Nucleated RBC % 0 Diff Path Review Sodium 125 L Potassium 4.4 Chloride 88 L Carbon Dioxide 35.0 H Anion Gap 2 L BUN 5 L Creatinine 0.51 L Estim Creat Clear Calc 43.91 Est GFR (MDRD) Af Amer 152 Est GFR (MDRD) Non-Af 126 BUN/Creatinine Ratio 9.8 L Glucose 105 Calcium 8.7 Troponin I < 0.015 B-Natriuretic Peptide 1716.2 H 10/05/19 10/05/19 10/06/19 15:00 17:13 04:38 WBC 4.4 RBC 3.97 L Hgb 12.6 Hct 38.0 MCV 95.7 MCH 31.7 MCHC 33.2 RDW Std Deviation 45.4 H RDW Coeff of Malini 12.8 Plt Count 198 MPV 9.4 Immature Gran % (Auto) 0.200 Neut % (Auto) 74.2 H Lymph % (Auto) 13.0 L [place] % (Auto) 11.4 H Eos % (Auto) 0.7 Baso % (Auto) 0.5 Absolute Neuts (auto) 3.2 Absolute Lymphs (auto) 0.57 L Nucleated RBC % 0 [address] Review Reviewed Sodium Potassium Chloride Carbon Dioxide Anion Gap BUN Creatinine Estim Creat Clear Calc Est GFR (MDRD) Af Amer Est GFR (MDRD) Non-Af BUN/Creatinine Ratio Glucose Calcium Troponin I < 0.015 < 0.015 B-Natriuretic Peptide 10/06/19 10/07/19 10/07/19 04:38 06:00 06:00 WBC 4.1 L RBC 3.79 L Hgb 11.9 L Hct 36.4 L MCV 96.0 MCH 31.4 MCHC 32.7 RDW Std Deviation 46.5 H RDW Coeff of Malini 13.0 Plt Count 184 MPV 9.3 Immature Gran % (Auto) 0.200 Neut % (Auto) 71.5 H Lymph % (Auto) 14.9 L [place] % (Auto) 12.2 H Eos % (Auto) 0.7 Baso % (Auto) 0.5 Absolute Neuts (auto) 2.9 Absolute Lymphs (auto) 0.61 L Nucleated RBC % 0 Diff Path Review Sodium 126 L Pending Potassium 3.2 L Pending Chloride 88 L Pending Carbon Dioxide 34.0 H Pending Anion Gap 4 L Pending BUN 5 L Pending Creatinine 0.41 L Pending Estim Creat Clear Calc 43.91 Est GFR (MDRD) Af Amer 195 Pending Est GFR (MDRD) Non-Af 161 Pending BUN/Creatinine Ratio 12.1 Pending Glucose 94 Pending Calcium 8.7 Pending Troponin I B-Natriuretic Peptide Clinical Impression(s) from Imaging Studies Chest X-Ray 10/05/19 11:24 IMPRESSION: Increasing right pleural effusion with underlying infiltration and/or atelectasis. Electronically Signed: Kenneth Brad, at 11:42 EST , Service support , Chest X-Ray 10/07/19 05:55 IMPRESSION: Small right apical pneumothorax, perhaps 10%. Bilateral pleural effusion right greater than left. Persistent left lung disease. at 0543 Reported and signed by: Norm Vega MD Electronically Signed: Nomr Vega MD at 5:42 EST Tel , Service support , ADDENDUM: 10/07/19 0602 IMPRESSION: Small right apical pneumothorax, perhaps 10%. Bilateral pleural effusion right greater than left. Persistent left lung disease. at 0543 Reported and signed by: Norm Vega MD N.B. : The above information has been verbally conveyed by Norm Vega MD to Kiesha Ca RN, on 10/07/2019 05:55:52 (ET). Electronically Signed: Norm Vega MD at 5:42 EST Tel , Service support , Current Medications Acetaminophen (Tylenol) 650 mg PO Q6H PRN PRN PRN Reason: Pain Score 1-3/Temp > 100.7 F Al Hydroxide/Mg Hydroxide (Mylanta Ii) 30 ml PO Q6H PRN PRN PRN Reason: Gastric Burning Albuterol Sulfate (Ventolin Aerosols) 2.5 mg INHALATION Q2H PRN PRN PRN Reason: DYSPNEA/WHEEZING/SOB Albuterol/Ipratropium (Duoneb) 3 ml INHALATION Q6HWA.RT NIKKI Last Admin: 10/07/19 06:48 Dose: 3 ml Documented by: Benzonatate (Tessalon Perle) 100 mg PO TID PRN PRN PRN Reason: COUGH Last Admin: 10/06/19 21:37 Dose: 100 mg Documented by: Budesonide (Pulmicort Aerosol) 0.5 mg INHALATION Q12H.RT NIKKI Last Admin: 10/07/19 06:48 Dose: 0.5 mg Documented by: Carvedilol (Coreg) 25 mg PO BID NIKKI Last Admin: 10/06/19 21:37 Dose: 25 mg Documented by: Chlorothiazide Sodium (Diuril) 500 mg IV X1 ONE Stop: 10/07/19 07:31 Furosemide (Lasix) 40 mg IV Q8 NIKKI Last Admin: 10/07/19 06:37 Dose: 40 mg Documented by: Guaifenesin (Robitussin) 20 ml PO Q4H PRN PRN PRN Reason: COUGH Last Admin: 10/06/19 16:19 Dose: 20 ml Documented by: Guaifenesin (Mucinex) 1,200 mg PO BID [facility] Last Admin: 10/06/19 21:38 Dose: 1,200 mg Documented by: Lisinopril (Zestril) 20 mg PO BID [facility] Last Admin: 10/06/19 21:37 Dose: 20 mg Documented by: Magnesium Hydroxide (Milk Of Magnesia) 30 ml PO DAILY PRN PRN PRN Reason: Constipation Melatonin (Melatonin) 3 mg PO QHS PRN PRN PRN Reason: INSOMNIA Multivitamins/Minerals (Multivitamin With Minerals) 1 tablet PO DAILY@0800 [facility] Last Admin: 10/06/19 08:58 Dose: 1 tablet Documented by: Ondansetron HCl (Zofran) 4 mg IV Q8H PRN PRN PRN Reason: NAUSEA/VOMITING Oxycodone HCl (Oxyir) 5 mg PO Q4H PRN PRN PRN Reason: Pain Score 4-5/10 Oxycodone HCl (Oxyir) 10 mg PO Q4H PRN PRN PRN Reason: Pain Score 6-10/10 Potassium Chlor[facility] ([facility]Dur) [facility] Last Admin: 10/06/19 16:08 Dose: 40 meq Documented by: Promethazine HCl (Phenergan) 25 mg IM Q6H PRN PRN PRN Reason: Breakthrough Nausea/Vomiting Sodium Chloride () 10 - 40 ml IV UD PRN PRN Reason: SALINE FLUSH Last Admin: 10/07/19 06:38 Dose: 10 ml Documented by: Spironolactone (Aldactone) 25 mg PO DAILY [facility] Last Admin: 10/06/19 18:33 Dose: 25 mg Documented by: Medical Necessity - Tobacco Use Smoking Status: Current some day smoker Assessment/Plan All Active Problems (Last Reviewed 10/05/19 @ 13:53 by Rohan Yeh MD) Acute CHF (Acute) Thrush, oral (Resolved) RECOMMENDATIONS: 1. Obtain noncontrasted chest CT. 2. Continue to hold Xarelto for now. 3. Continue volume optimization with IV diuretic therapy. 4. Continue scheduled potassium repletion. 5. Obtain ultrasound-guided thoracentesis. Orders for pleural fluid studies have been placed. IMPRESSIONS: 1. Acute hypoxemic respiratory insufficiency Likely secondary to right pleural effusion in the setting of decompensated heart failure. The patient's echocardiogram did reveal a depressed ejection fraction when compared to prior echocardiogram, along with valvular heart disease and pulmonary hypertension. Her BNP was elevated. Therefore, I do suspect that her pleural effusion is likely secondary to her current cardiac status. Agree with attempts at aggressive diuresis. Given that the patient has been off of Xarelto now for greater than 24 hours, will plan to proceed with ultrasound-guided thoracentesis. Pleural fluid studies will be sent. Continue to encourage aggressive incentive spirometer use. Wean supplemental oxygen to maintain saturations at or above 90%. Encourage incentive spirometer use. Xarelto can be resumed post thoracentesis. 2. Non-small cell carcinoma of the lung The patient is currently under the management of [facility] oncology. 3. Continuous tobacco dependency Complete tobacco cessation is strongly recommended. Counseling was provided. 4. Baseline severe COPD without exacerbation Continue scheduled bronchodilators and inhaled corticosteroid. 5. Paroxysmal atrial fibrillation/history of breast CA/hypertension/hyponatremia/hypokalemia Complicates care, management, recovery and prognosis. Suspect electrolyte a bnormalities are related to state of hypervolemia. Continue electrolyte repletion as needed. This note was generated with [employer] dictation software. It may contain incorrect words, spelling, and punctuation that were not noted in checking the note before signing. Code Visit Inpatient E&M: [address] [facility] L3
[2019-10-07 07:02] LABS: Anion Gap 2 (5-15); BUN 6 mg/dL (7-18); Calcium,Total 9.2 mg/dL (8.5-10.1); Chloride 91 mmol/L (98-107); Creatinine, Serum 0.46 mg/dL (0.55-1.02); EST Glomerular Filtration Rate 142 mL/min (>60); Est Glom Filt Rate - Afr Amer 171 mL/min (>60); Estimated Creatinine Clearance 43.91 ml/min; Glucose 88 mg/dL (74-106); Potassium 3.3 mmol/L (3.5-5.1); Sodium Level 130 mmol/L (136-145)
--- NOTE | 2019-10-07 07:59 | CT_ITS ---
STUDY: CT CHEST WITHOUT CONTRAST REASON FOR EXAM: Female, 73 years old. Patient has history of breast carcinoma. Possible mass. RADIATION DOSAGE (If Supplied By Facility): CTDIvol = ( 9.78 ) mGy, DLP = ( 330.05 ) mGycm TECHNIQUE: Transaxial imaging was performed without the administration of intravenous contrast material. Multiplanar coronal and sagittal images were reformatted. Individualized dose optimization techniques were used for this CT. COMPARISON: Comparison is made with prior examination dated July 17, 2010. FINDINGS: Mild degree of emphysematous changes in the upper lobes. There is a 3.2 cm x 2.5 cm mass in the left upper lobe. This is pleural-based. There is evidence of sclerosis of the overlying ribs. This may represent a neoplastic process treated with radiation therapy and causing radiation necrosis of the overlying bony ribs. The soft tissue density has progressed slightly as compared to prior study. Clinical correlation is recommended. Moderate sized right pleural effusion with left lower lobe infiltration and atelectasis. Small left pleural effusion with atelectasis. There are calcifications of the coronary arteries. There are multiple small lymph nodes within the mediastinum, which are normal in size and morphology most compatible with reactive lymph hyperplasia. Normal hilar regions. Normal unenhanced pulmonary arteries. Normal aorta arch and descending thoracic aorta. There are multi-level degenerative changes of the thoracic spine. Sclerotic changes of the anterior left upper ribs. There is no demonstrated abnormality of the visualized upper abdomen. CT/Chest without Contrast IMPRESSION: Bilateral pleural effusions right greater than left with underlying infiltration and/or atelectasis worse on the right side. Slight increase in size of the left upper lobe peripheral mass with the sclerosis of the overlying ribs. Electronically Signed: eKnneth Salinas, at 11:17 EST , Service support ,
--- NOTE | 2019-10-07 08:47 | US_ITS ---
PROCEDURE: ULTRASOUND GUIDED THORACENTESIS. DATE: October 07, 2019. INDICATION: Female, 73 years old. Right pleural effusion. PHYSICIAN: Kenneth Salinas M.D. PROCEDURE: The risks, benefits, and alternatives to the procedure were explained to the patient. The specific risks of bleeding, infection, and pneumothorax requiring chest tube insertion were discussed and accepted. Written informed consent was obtained. Ultrasonographic evaluation of the right lower pleural space was carried out. An adequate pocket was identified. The patient was placed in the sitting, upright position. The overlying skin was prepped and draped in sterile fashion. 1% lidocaine was administered subcutaneously for local anesthesia. Under ultrasound guidance, a 5 [place] thoracentesis needle/catheter system was advanced into the right posterior lower pleural fluid collection. Approximately 850 mL of blood tinged fluid was drained. The catheter was removed, and a sterile dressing was applied. A specimen was collected and sent to the laboratory for analysis, as requested by the referring clinician. The patient tolerated the procedure well. A chest x-ray was ordered. US/Thoracentesis W US IMPRESSION: Ultrasound-guided right thoracentesis. Electronically Signed: Kenneth Salinas, at 14:47 EST , Service support ,
[2019-10-07] MEDS: Carvedilol 25 MG Tablet PO ×2 (08:56→21:03)
[2019-10-07] MEDS: Multivitamins,Ther W-Minerals Tablet 1 TABLET PO (08:56)
[2019-10-07] MEDS: Spironolactone 25 MG Tablet PO (08:56)
[2019-10-07] MEDS: Lisinopril 20 MG Tablet PO ×2 (08:57→21:03)
[2019-10-07] MEDS: guaiFENesin 1,200 MG Tablet 1200 MG PO ×2 (08:57→21:03)
[2019-10-07 09:12] LABS: Partial Thromboplast Time 33.8 Seconds (24.1-36.2)
--- NOTE | 2019-10-07 09:24 | CASEMGMT ---
Addendum entered by Hill Rogers 10/07/19 14:38: Participated in PCU rounds @ bedside. RIVETER HAND informed SANAM THAPA that she felt pt may be interested in OP therapy or HHC after she worked with pt today. RIVETER HAND also stated felt pt could use a walker. Addressed HHC and OP therapy with pt/ again during rounds and pt states she is still not interested in doing either, stating she will do the exercises taught to her by therapy already. Pt/ also state that pt has a walker at home, although she does not use it. Original Note: SANAM THAPA NOTE: Reviewed PT/OT notes. PT recommended further therapy/HHC. SANAM THAPA to room to talk with pt. Introduced self/role. Pt sitting up in recliner chair. A/O. Pt made aware of PT recommendations. Pt declines any HHC or OP therapy. She states she feels she is back to her baseline, stating, I don't feel like I need that. I'm pretty strong and getting around better than I had been. Pt made aware that if she decides in the future that she would like any additional therapy, HHC/OP PT, to discuss this with her PCP. Pt voices understanding. She denies any concerns/needs @ discharge at this time. Benjy SARMIENTO RN, CM
[2019-10-07 09:36] LABS: LDH 189 U/L (84-246); Protein, Total 6.1 g/dL (6.4-8.2)
[2019-10-07 09:48] LABS: International Normalized Ratio 1.4; Prothrombin Time (Protime)PT. 16.7 SECONDS (11.7-14.9)
--- NOTE | 2019-10-07 10:00 | PCM.PN.HOSP ---
Patient Problems: Active and Suspected Problems (Last Reviewed 10/05/19 @ 13:53 by Rohan Yeh MD) Acute CHF (Acute) Reason for Visit: Follow-up acute congestive heart failure and right-sided pleural effusion. Subjective: Patient is a 73-year-old lady who is currently being managed as a case of acute congestive heart failure with right-sided pleural effusion. Follow-up chest x-ray obtained this a.m. was questionable for small right apical pneumothorax however CT subsequently obtained did not demonstrate any evidence of pleural effusion. Objective: GENERAL: cooperative HEENT: Atraumatic; EYES; Anicteric, Normal Conjunctiva NECK; supple, normal thyroid, RESPIRATORY: Diminished to auscultation CARDIOVASCULAR: Regular S1 S2, GI: soft, normoactive bowel sounds, : No Renal angle tenderness; EXTREMITIES: Bilateral stasis dermatitis, MUSCULOSKELETAL: no muscle waisting NEURO: Awake; no lateralizing signs. SKIN: No Rash PSYCH; Flat affect Vitals/I&O's: Vital Signs Temp Pulse Resp BP Pulse Ox 97.5 F L 82 20 H 127/64 H 98 10/07/19 08:45 10/07/19 08:45 10/07/19 08:45 10/07/19 08:45 10/07/19 08:45 Oxygen Flow Rate (L/min) 4 Oxygen Delivery Method Nasal Cannula Weight: 78 kg Body Mass Index (BMI) 29.7 Intake and Output for Last 24 Hours 10/05/19 10/06/19 10/07/19 23:59 23:59 23:59 Intake Total 390 / 390 1071 / 1071 200 / 200 Output Total 2200 / 2200 1750 / 1750 1100 / 1100 Balance -1810 / -1810 -679 / -679 -900 / -900 Laboratory Results 10/06/19 04:38: Diff Path Review Reviewed 10/07/19 06:00: WBC 4.1 L, RBC 3.79 L, Hgb 11.9 L, Hct 36.4 L, MCV 96.0, MCH 31.4, MCHC 32.7, RDW Std Deviation 46.5 H, RDW Coeff of Malini 13.0, Plt Count 184, MPV 9.3, Immature Gran % (Auto) 0.200, Neut % (Auto) 71.5 H, Lymph % (Auto) 14.9 L, [place] % (Auto) 12.2 H, Eos % (Auto) 0.7, Baso % (Auto) 0.5, Absolute Neuts (auto) 2.9, Absolute Lymphs (auto) 0.61 L, Nucleated RBC % 0 10/07/19 06:00: Sodium 130 L, Potassium 3.3 L, Chloride 91 L, Carbon Dioxide 37.0 H, Anion Gap 2 L, BUN 6 L, Creatinine 0.46 L, Estim Creat Clear Calc 43.91, Est GFR (MDRD) Af Amer 171, Est GFR (MDRD) Non-Af 142, BUN/Creatinine Ratio 13.0, Glucose 88, Calcium 9.2 10/07/19 06:00: Lactate Dehydrogenase 189, Total Protein 6.1 L, Globulin 3.0, Albumin/Globulin Ratio 1.0 10/07/19 06:00: PT 16.7 H, INR 1.4 10/07/19 06:00: APTT 33.8 Current Medications Acetaminophen (Tylenol) 650 mg PO Q6H PRN PRN PRN Reason: Pain Score 1-3/Temp > 100.7 F Al Hydroxide/Mg Hydroxide (Mylanta Ii) 30 ml PO Q6H PRN PRN PRN Reason: Gastric Burning Albuterol Sulfate (Ventolin Aerosols) 2.5 mg INHALATION Q2H PRN PRN PRN Reason: DYSPNEA/WHEEZING/SOB Albuterol/Ipratropium (Duoneb) 3 ml INHALATION Q6HWA.RT [facility] Last Admin: 10/07/19 06:48 Dose: 3 ml Documented by: Benzonatate (Tessalon Perle) 100 mg PO TID PRN PRN PRN Reason: COUGH Last Admin: 10/06/19 21:37 Dose: 100 mg Documented by: Budesonide (Pulmicort Aerosol) 0.5 mg INHALATION Q12H.RT [facility] Last Admin: 10/07/19 06:48 Dose: 0.5 mg Documented by: Carvedilol (Coreg) 25 mg PO BID [facility] Last Admin: 10/07/19 08:56 Dose: 25 mg Documented by: Furosemide (Lasix) 40 mg IV Q8 NIKKI Last Admin: 10/07/19 06:37 Dose: 40 mg Documented by: Guaifenesin (Robitussin) 20 ml PO Q4H PRN PRN PRN Reason: COUGH Last Admin: 10/06/19 16:19 Dose: 20 ml Documented by: Guaifenesin (Mucinex) 1,200 mg PO BID [facility] Last Admin: 10/07/19 08:57 Dose: 1,200 mg Documented by: Lisinopril (Zestril) 20 mg PO BID [facility] Last Admin: 10/07/19 08:57 Dose: 20 mg Documented by: Magnesium Hydroxide (Milk Of Magnesia) 30 ml PO DAILY PRN PRN PRN Reason: Constipation Melatonin (Melatonin) 3 mg PO QHS PRN PRN PRN Reason: INSOMNIA Multivitamins/Minerals (Multivitamin With Minerals) 1 tablet PO DAILY@0800 [facility] Last Admin: 10/07/19 08:56 Dose: 1 tablet Documented by: Ondansetron HCl (Zofran) 4 mg IV Q8H PRN PRN PRN Reason: NAUSEA/VOMITING Oxycodone HCl (Oxyir) 5 mg PO Q4H PRN PRN PRN Reason: Pain Score 4-5/10 Oxycodone HCl (Oxyir) 10 mg PO Q4H PRN PRN PRN Reason: Pain Score 6-10/10 Potassium Chlor[facility] (K-Dur) [facility] Last Admin: 10/07/19 08:56 Dose: 40 meq Documented by: Promethazine HCl (Phenergan) 25 mg IM Q6H PRN PRN PRN Reason: Breakthrough Nausea/Vomiting Sodium Chloride () 10 - 40 ml IV UD PRN PRN Reason: SALINE FLUSH Last Admin: 10/07/19 06:38 Dose: 10 ml Documented by: Spironolactone (Aldactone) 25 mg PO DAILY [facility] Last Admin: 10/07/19 08:56 Dose: 25 mg Documented by: STROKE Vital Signs/Narrative: Vital Signs Temp Pulse Resp BP Pulse Ox 10/07/19 08:45 97.5 F L 82 20 H 127/64 H 98 10/07/19 06:51 80 10/07/19 06:48 90 18 98 Medical Necessity - Tobacco Use Smoking Status: Current some day smoker Assessment/Plan All Active Problems (Last Reviewed 10/05/19 @ 13:53 by Rohan Yeh MD) Acute CHF (Acute) Thrush, oral (Resolved) Patient is a 73-year-old lady who presented with progressive shortness of breath and assessment of acute congestive heart failure made admitted to monitored nursing floor further management 1. Acute congestive heart failure with reduced ejection fraction. ?Echo obtained on 04/29/2018 demonstrated preserved ejection fraction of 50%. Patient has been admitted to monitored bed placed on strict input and output: Daily weight, low-sodium diet and IV Lasix. Repeat echo ordered for EF assessment ?10/06/2019; repeat echo demonstrated Normal LV size. The estimated ejection fraction is 37 %. No regional wall motion abnormalities noted. The right atrium is mildly enlarged. Moderate pulmonary hypertension. Pulmonary artery systolic pressure is 60 mmHg. Small pericardial effusion. Consult was placed to cardiology given patient significantly reduced ejection fraction 2. Right-sided pleural effusion ~[place] to be related to patient acute congestive heart failure. Patient had previously been seen and evaluated by Dr. Campos with pulmonary medicine consult placed to him case discussed with him. Did discuss about possibility of patient undergoing ultrasound-guided thoracocentesis if pleural effusion persist. Repeat chest x-ray ordered for 10/07/2019. ?10/07/2019; Follow-up chest x-ray obtained this a.m. was questionable for small right apical pneumothorax however CT subsequently obtained did not demonstrate any evidence of pleural effusion. Patient has subsequently been scheduled to undergo ultrasound-guided thoracocentesis of her right-sided pleural effusion. 3. Paroxysmal atrial fibrillation ~ rate controlled on systemic anticoagulation with Xarelto did continue ?10/06/2019; Xarelto held in anticipation of possible ultrasound-guided thoracocentesis 4. COPD ~ Currently not in exacerbation did continue patient home aerosol regimen 5. History of breast CA ~status post chemoradiation with left mastectomy and right lumpectomy and has since remained in remission 6. Non-small cell carcinoma of lung ?Involving the left upper lobe. Patient was treated with radiation therapy. Patient was deemed to be a poor surgical candidate for resection in view of her severe underlying obstructive lung disease. Patient is managed by Dr. Cazares as outpatient 7. Hypertension ~ blood pressure controlled, home medications continued with dose adjustment as needed 8. Tobacco dependence counseled on cessation, offered nicotine patch for tobacco cravings 9. DVT prophylaxis ~ Xarelto 10. Hyponatremia ~Thought to be secondary to patient fluid overload status as well as possible SIADH given patient history of lung CA ?10/07/2019: Patient sodium levels improving with fluid restriction 11. Hypokalemia ~Corrected per protocol. Subsequent BMP ordered for monitoring Code Visit Inpatient E&M: 57593 Subs Hosp L2
--- NOTE | 2019-10-07 13:06 | PN.CARD_ITS ---
Subjectve: Patient seen and evaluated. Appears to be breathing better. Sitting in chair today. Objective: Vital Signs Temp Pulse Resp BP Pulse Ox 97.5 F L 82 20 H 127/64 H 98 10/07/19 08:45 10/07/19 08:45 10/07/19 08:45 10/07/19 08:45 10/07/19 08:45 Oxygen Flow Rate (L/min) 4 Oxygen Delivery Method Nasal Cannula Weight: 171 lb 15.369 oz Body Mass Index (BMI) 29.7 Intake and Output for Last 24 Hours 10/05/19 10/06/19 10/07/19 23:59 23:59 23:59 Intake Total 390 / 390 1071 / 1071 440 / 440 Output Total 2200 / 2200 1750 / 1750 3450 / 3450 Balance -1810 / -1810 -679 / -679 -3010 / -3010 General: Awake, Alert, Oriented x 3 HEENT: PERRL, EOMI, Sclera Non Icteric Neck: Supple, Good ROM, No Lymph Node Enlargement Lungs: Diminished Cortes Bases Cardiovascular: Regular Rhythm, Normal S1, Normal S2, No Murmurs, No Rubs, No Gallops Vascular: No Carotid Bruits, Normal Femoral Pulses, Normal Radial Pulses, Normal Dorsalis Pedal Pulse, Normal Posterior Tibial Pulses Abdomen: Bowel Sounds Present, Soft, Non Tender, No HSM, No Organomegaly Extremities: No Cyanosis, No Clubbing, Bilateral Edema +2 Musculoskeletal: No Erythema Skin: No Rashes Neurological: No Focal Motor or Sensory Deficit Psych/Mental Status: Appropriate 10/07/19 06:00: WBC 4.1 L, RBC 3.79 L, Hgb 11.9 L, Hct 36.4 L, MCV 96.0, MCH 31.4, MCHC 32.7, Plt Count 184, MPV 9.3, Immature Gran % (Auto) 0.200, Neut % (Auto) 71.5 H, Lymph % (Auto) 14.9 L, Benzie % (Auto) 12.2 H, Eos % (Auto) 0.7, Baso % (Auto) 0.5, Absolute Neuts (auto) 2.9, Nucleated RBC % 0 10/07/19 06:00: Sodium 130 L, Potassium 3.3 L, Chloride 91 L, Carbon Dioxide 37.0 H, Anion Gap 2 L, BUN 6 L, Creatinine 0.46 L, Est GFR (MDRD) Af Amer 171, Est GFR (MDRD) Non-Af 142, BUN/Creatinine Ratio 13.0, Glucose 88, Calcium 9.2 10/07/19 06:00: PT 16.7 H, INR 1.4 10/07/19 06:00: APTT 33.8 Rhythm: EKG: ECHO: Stress Test: Cardiac Cath: PCI: CT Surgery: Holter monitor: EPS: PPM: CXR: Chest CT Scan: Medical Necessity - Tobacco Use Smoking Status: Current some day smoker Assessment/Plan 1. Congestive heart failure Patient's echocardiogram showed ejection fraction of 37%. Compared to December 2017 this is reduced from 60%. Her echocardiogram did reveal 3+ mitral valve insufficiency versus 1+ mitral valve insufficiency previously. Her RVSP has increased from 43 mmHg to 60 mmHg. Her BNP on admission was elevated at 1300. She does acknowledge improvement in symptoms since admission. At this time, she will continue with IV diuretic therapy and electrolyte replacement. She will continue with EVELIN inhibitor and beta-donovan therapy. * Possible etiology for reduced ejection fraction include radiation therapy 1 year ago for left sided small cell lung cancer and previous breast cancer treatment, atrial fibrillation, worsening mitral valve disease, or undiagnosed coronary artery disease. * Eventually she may need an evaluation of her coronary anatomy at some point to exclude obstructive coronary disease 2. Paroxysmal atrial fibrillation At this time, her rate is well controlled. As mentioned above, her Xarelto is being held for thoracentesis. She will continue with current beta-donovan. She will resume Xarelto once clinically stable and indicated. Cardioversion could be considered, even on an outpatient basis if still indicated. 3. Hypertension Patient's blood pressure is well-controlled. We will continue to monitor. We will not make any medication regimen changes. 4. Mitral valve insufficiency This has worsened compared to previous echocardiogram. This may be due to to worsening valvular disease or fluid volume overload state. This will need to be reassessed in the future post diuresis. This can be done on an outpatient basis. 5. COPD This will be evaluated and managed by Strategic Partnership Representative and Primary team. Thank you for allowing me to participate in the care of your patient. Please don't hesitate to call if any issues arise
--- NOTE | 2019-10-07 14:05 | RAD_ITS ---
STUDY: X-RAY CHEST REASON FOR EXAM: Female, 73 years old. Status post right thoracentesis. TECHNIQUE: AP inspiration and expiration views. COMPARISON: Comparison is made with prior examination dated October 07, 2019 at 4:57 AM. FINDINGS: EKG electrodes are seen. Surgical clips are seen in both axillary regions. The patient is status post right thoracentesis. There is no evidence of pneumothorax. The remainder of the examination is unchanged. RAD/Chest Insp/Exp 2 View IMPRESSION: Status post right thoracentesis. There is no evidence of pneumothorax. Electronically Signed: Kenneth Salinas, at 15:36 EST , Service support ,
[2019-10-07 14:31] LABS: Cytology, Body Fluid / CSF SEE PATHOLOGY REPORT
--- NOTE | 2019-10-07 14:40 | NURSING ---
Multidisciplinary rounds held late due to patient's thorocentesis at the regularly scheduled time.
[2019-10-07 14:56] LABS: Body Fluid Mononuclear WBC # 0.077 10^3/uL; Body Fluid Mononuclear WBC % 88.5 %; Body Fluid Polynuclear WBC % 11.5 %; Body Fluid Total Cells Counted 0.098 10^3/ul; White Blood Count/Body Fluid 0.087 10^3/uL
[2019-10-07 15:14] LABS: Appearance/Body Fluid SL CLDY; Auto B Fluid Analyzer BKGD Ct COUNTS W/IN LIMITS (W/IN LIMITS); Color/Body Fluid YELLOW; Glucose, Body Fluid 105 mg/dL (40-70); LDH,Body Fluid 59 Units/l (Not Establ.); Protein, Body Fluid 2.8 g/dL (Not Establ.); Source- Body Fluid THORACENTESIS
[2019-10-07 15:22] LABS: Red Cell Count/Body Fluid 604 /mm3
[2019-10-07 15:40] LABS: Body Fluid QC Type(s) BF1Q; Lymphocytes 28 %; Monocytes 36 %; Neutrophil (Segs) 16 %; Other Cell Type/BF 20 %
[2019-10-07] MEDS: Acetaminophen 325 MG Tablet 650 MG PO (19:25)
[2019-10-08] VITALS (8 sets, daily range): BP systolic 101–125; BP diastolic 43–64; PULSE 75–88; RESP 18–20; TEMP 36.4–37.1; O2SAT 84–96
[2019-10-08] MEDS: Acetaminophen 325 MG Tablet 650 MG PO (05:12)
[2019-10-08] MEDS: Furosemide 40 MG/4 ML Vial IV (05:15)
[2019-10-08] MEDS: 0.9% Saline Lock 10 ML Syringe IV (05:16)
[2019-10-08] MEDS: Budesonide Respules 0.5 MG/2 ML AMPUL.NEB. INHALATION (06:39)
[2019-10-08] MEDS: Ipratropium/Albuterol Sulfate 3 ML AMPUL.NEB INHALATION (06:39)
--- NOTE | 2019-10-08 06:46 | PCM.PN.PUL ---
Patient Problems: Active and Suspected Problems (Last Reviewed 10/05/19 @ 13:53 by Rohan Yeh MD) Acute CHF (Acute) Subjective: The patient was seen and examined at the bedside this morning. Events from the last 24 hours have been reviewed. The patient is currently afebrile, hemodynamically stable and maintaining appropriate oxygen saturations on 2 L/min via nasal cannula. The patient underwent successful ultrasound-guided thoracentesis with 850 mL's of fluid removed. Objective: The patient's most recent lab work, culture data and imaging studies have all been personally reviewed. Surface echocardiogram revealed normal LV size with an ejection fraction of 37%. No regional wall motion abnormalities were identified. There was moderately severe mitral valve insufficiency, moderate tricuspid valve insufficiency and a pulmonary artery systolic pressure estimated to be [address] revealed no evidence of pneumothorax. There were stable appearing left mid lung field lung changes along with a right-sided pleural effusion. - Physical Exam Vitals/I&O's: Vital Signs Temp Pulse Resp BP Pulse Ox 98.8 F 75 20 H 101/43 L 94 10/08/19 02:25 10/08/19 03:00 10/08/19 02:25 10/08/19 02:25 10/08/19 02:25 Oxygen Flow Rate (L/min) [4] 2 Oxygen Flow Rate (L/min) [3] 2 Oxygen Flow Rate (L/min) [2] 2 Oxygen Flow Rate (L/min) [1 ( 2 Initial Baseline)] Oxygen Flow Rate (L/min) 2 Oxygen Delivery Method [4] Nasal Cannula Oxygen Delivery Method [3] Nasal Cannula Oxygen Delivery Method [2] Nasal Cannula Oxygen Delivery Method [1 ( Nasal Cannula Initial Baseline)] Oxygen Delivery Method Nasal Cannula Weight: 165 lb 9.074 oz Body Mass Index (BMI) 29.7 Intake and Output for Last 24 Hours 10/06/19 10/07/19 10/08/19 23:59 23:59 23:59 Intake Total 1071 / 1071 674 / 974 540 / 540 Output Total 1750 / 1750 6400 / 7600 1900 / 1900 Balance -679 / -679 -5726 / -6626 -1360 / -1360 General: Alert, Cooperative, No apparent distress HEENT: Atraumatic, PERRLA, Normocephalic Oral: No Gingival or Mucosal Lesions/ Ulcerations Neck: Supple, No Nodes, Trachea Midline Lungs: No rhonchi, No wheeze, No rales, Diminished Cardiovascular: Normal S1, Normal S2, Irregular Rate, Murmur Abdomen: Bowel Sounds Present, Soft, Non Tender Extremities: No clubbing, No cyanosis, Edema Skin: - - No significant change from previous. Musculoskeletal: No Tenderness to Palpation of Joints or Extremities Lymphatic: No Cervical, Supraclavicular, or Inguinal Adenopathy Neurological: Cranial nerves II-XII grossly intact, Neuro grossly intact Psych/Mental Status: Alert and oriented to time, place, person, mood and affect Labs (Last 48 Hours) 10/06/19 10/07/19 10/07/19 04:38 06:00 06:00 WBC 4.1 L RBC 3.79 L Hgb 11.9 L Hct 36.4 L MCV 96.0 MCH 31.4 MCHC 32.7 RDW Std Deviation 46.5 H RDW Coeff of Malini 13.0 Plt Count 184 MPV 9.3 Immature Gran % (Auto) 0.200 Neut % (Auto) 71.5 H Lymph % (Auto) 14.9 L Burnett % (Auto) 12.2 H Eos % (Auto) 0.7 Baso % (Auto) 0.5 Absolute Neuts (auto) 2.9 Absolute Lymphs (auto) 0.61 L Nucleated RBC % 0 Diff Path Review Reviewed PT INR APTT Sodium 130 L Potassium 3.3 L Chloride 91 L Carbon Dioxide 37.0 H Anion Gap 2 L BUN 6 L Creatinine 0.46 L Estim Creat Clear Calc 43.91 Est GFR (MDRD) Af Amer 171 Est GFR (MDRD) Non-Af 142 BUN/Creatinine Ratio 13.0 Glucose 88 Calcium 9.2 Lactate Dehydrogenase Total Protein Globulin Albumin/Globulin Ratio Fluid Source Fluid Color Fluid Appearance Fluid WBC Fluid RBC Fluid Tot Cell Count Fld Polynuclear WBCs # Fld Polynuclear WBCs % Fluid Mononuclear WBCs Fld Mononuclear WBCs % Fluid Neutrophils Fluid Lymphocytes Fluid Monocytes Fluid Other Cells Fl Pathologist Comment Fluid Glucose Fluid Total Protein Fluid LDH Fluid Comment 2 Miscellaneous Cytology 10/07/19 10/07/19 10/07/19 06:00 06:00 06:00 WBC RBC Hgb Hct MCV MCH MCHC RDW Std Deviation RDW Coeff of Malini Plt Count MPV Immature Gran % (Auto) Neut % (Auto) Lymph % (Auto) Burnett % (Auto) Eos % (Auto) Baso % (Auto) Absolute Neuts (auto) Absolute Lymphs (auto) Nucleated RBC % Diff Path Review PT 16.7 H INR 1.4 APTT 33.8 Sodium Potassium Chloride Carbon Dioxide Anion Gap BUN Creatinine Estim Creat Clear Calc Est GFR (MDRD) Af Amer Est GFR (MDRD) Non-Af BUN/Creatinine Ratio Glucose Calcium Lactate Dehydrogenase 189 Total Protein 6.1 L Globulin 3.0 Albumin/Globulin Ratio 1.0 Fluid Source Fluid Color Fluid Appearance Fluid WBC Fluid RBC Fluid Tot Cell Count Fld Polynuclear WBCs # Fld Polynuclear WBCs % Fluid Mononuclear WBCs Fld Mononuclear WBCs % Fluid Neutrophils Fluid Lymphocytes Fluid Monocytes Fluid Other Cells Fl Pathologist Comment Fluid Glucose Fluid Total Protein Fluid LDH Fluid Comment 2 Miscellaneous Cytology 10/07/19 10/07/19 10/07/19 14:00 14:00 14:00 WBC RBC Hgb Hct MCV MCH MCHC RDW Std Deviation RDW Coeff of Malini Plt Count MPV Immature Gran % (Auto) Neut % (Auto) Lymph % (Auto) Burnett % (Auto) Eos % (Auto) Baso % (Auto) Absolute Neuts (auto) Absolute Lymphs (auto) Nucleated RBC % Diff Path Review PT INR APTT Sodium Potassium Chloride Carbon Dioxide Anion Gap BUN Creatinine Estim Creat Clear Calc Est GFR (MDRD) Af Amer Est GFR (MDRD) Non-Af BUN/Creatinine Ratio Glucose Calcium Lactate Dehydrogenase Total Protein Globulin Albumin/Globulin Ratio Fluid Source THORACENTESIS Fluid Color YELLOW Fluid Appearance SL CLDY Fluid WBC 0.087 Fluid RBC 604 Fluid Tot Cell Count 0.098 H Fld Polynuclear WBCs # 0.010 Fld Polynuclear WBCs % 11.5 Fluid Mononuclear WBCs 0.077 Fld Mononuclear WBCs % 88.5 Fluid Neutrophils 16 Fluid Lymphocytes 28 Fluid Monocytes 36 Fluid Other Cells 20 Fl Pathologist Comment May follow Fluid Glucose 105 H Fluid Total Protein 2.8 Fluid LDH 59 Fluid Comment 2 SEE COMMENT Miscellaneous Cytology Pending 10/08/19 05:55 WBC RBC Hgb Hct MCV MCH MCHC RDW Std Deviation RDW Coeff of Malini Plt Count MPV Immature Gran % (Auto) Neut % (Auto) Lymph % (Auto) Burnett % (Auto) Eos % (Auto) Baso % (Auto) Absolute Neuts (auto) Absolute Lymphs (auto) Nucleated RBC % Diff Path Review PT INR APTT Sodium Pending Potassium Pending Chloride Pending Carbon Dioxide Pending Anion Gap Pending BUN Pending Creatinine Pending Estim Creat Clear Calc Est GFR (MDRD) Af Amer Pending Est GFR (MDRD) Non-Af Pending BUN/Creatinine Ratio Pending Glucose Pending Calcium Pending Lactate Dehydrogenase Total Protein Globulin Albumin/Globulin Ratio Fluid Source Fluid Color Fluid Appearance Fluid WBC Fluid RBC Fluid Tot Cell Count Fld Polynuclear WBCs # Fld Polynuclear WBCs % Fluid Mononuclear WBCs Fld Mononuclear WBCs % Fluid Neutrophils Fluid Lymphocytes Fluid Monocytes Fluid Other Cells Fl Pathologist Comment Fluid Glucose Fluid Total Protein Fluid LDH Fluid Comment 2 Miscellaneous Cytology Clinical Impression(s) from Imaging Studies Chest X-Ray 10/05/19 11:24 IMPRESSION: Increasing right pleural effusion with underlying infiltration and/or atelectasis. Electronically Signed: Kenneth Salinas, at 11:42 EST , Service support , Chest X-Ray 10/07/19 05:55 IMPRESSION: Small right apical pneumothorax, perhaps 10%. Bilateral pleural effusion right greater than left. Persistent left lung disease. at 8439 Reported and signed by: Norm Vega MD Electronically Signed: Norm Vega MD at 5:42 EST Tel , Service support , ADDENDUM: 10/07/19 0602 IMPRESSION: Small right apical pneumothorax, perhaps 10%. Bilateral pleural effusion right greater than left. Persistent left lung disease. at 3996 Reported and signed by: Norm Vega MD N.B. : The above information has been verbally conveyed by Norm Vega MD to Kiesha Ca RN, on 10/07/2019 05:55:52 (ET). Electronically Signed: Norm Vega MD at 5:42 EST Tel , Service support , Chest CT 10/07/19 07:59 IMPRESSION: Bilateral pleural effusions right greater than left with underlying infiltration and/or atelectasis worse on the right side. Slight increase in size of the left upper lobe peripheral mass with the sclerosis of the overlying ribs. Electronically Signed: Kenneth Salinas, at 11:17 EST , Service support , Thoracentesis Ultrasound 10/07/19 08:47 IMPRESSION: Ultrasound-guided right thoracentesis. Electronically Signed: Kenneth Salinas, at 14:47 EST , Service support , Chest X-Ray 10/07/19 14:05 IMPRESSION: Status post right thoracentesis. There is no evidence of pneumothorax. Electronically Signed: Kenneth Salinas, at 15:36 EST , Service support , Current Medications Acetaminophen (Tylenol) 650 mg PO Q6H PRN PRN PRN Reason: Pain Score 1-3/Temp > 100.7 F Last Admin: 10/08/19 05:12 Dose: 650 mg Documented by: Al Hydroxide/Mg Hydroxide (Mylanta Ii) 30 ml PO Q6H PRN PRN PRN Reason: Gastric Burning Albuterol Sulfate (Ventolin Aerosols) 2.5 mg INHALATION Q2H PRN PRN PRN Reason: DYSPNEA/WHEEZING/SOB Albuterol/Ipratropium (Duoneb) 3 ml INHALATION Q6HWA.RT NIKKI Last Admin: 10/08/19 06:39 Dose: 3 ml Documented by: Benzonatate (Tessalon Perle) 100 mg PO TID PRN PRN PRN Reason: COUGH Last Admin: 10/06/19 21:37 Dose: 100 mg Documented by: Budesonide (Pulmicort Aerosol) 0.5 mg INHALATION Q12H.RT [facility] Last Admin: 10/08/19 06:39 Dose: 0.5 mg Documented by: Carvedilol (Coreg) 25 mg PO BID [facility] Last Admin: 10/07/19 21:03 Dose: 25 mg Documented by: Furosemide (Lasix) 40 mg IV Q8 [facility] Last Admin: 10/08/19 05:15 Dose: 40 mg Documented by: Guaifenesin (Robitussin) 20 ml PO Q4H PRN PRN PRN Reason: COUGH Last Admin: 10/06/19 16:19 Dose: 20 ml Documented by: Guaifenesin (Mucinex) 1,200 mg PO BID [facility] Last Admin: 10/07/19 21:03 Dose: 1,200 mg Documented by: Lisinopril (Zestril) 20 mg PO BID [facility] Last Admin: 10/07/19 21:03 Dose: 20 mg Documented by: Magnesium Hydroxide (Milk Of Magnesia) 30 ml PO DAILY PRN PRN PRN Reason: Constipation Melatonin (Melatonin) 3 mg PO QHS PRN PRN PRN Reason: INSOMNIA Multivitamins/Minerals (Multivitamin With Minerals) 1 tablet PO DAILY@0800 [facility] Last Admin: 10/07/19 08:56 Dose: 1 tablet Documented by: Nutritional Formula (Lactose Free) (Ensure Enlive) 60 ml PO 4X/DAY [facility] Last Admin: 10/07/19 21:02 Dose: 60 ml Documented by: Ondansetron HCl (Zofran) 4 mg IV Q8H PRN PRN PRN Reason: NAUSEA/VOMITING Oxycodone HCl (Oxyir) 5 mg PO Q4H PRN PRN PRN Reason: Pain Score 4-5/10 Oxycodone HCl (Oxyir) 10 mg PO Q4H PRN PRN PRN Reason: Pain Score 6-10/10 Potassium Chloride (K-Dur) 40 meq PO BIDCM [facility] Last Admin: 10/07/19 16:36 Dose: 40 meq Documented by: Promethazine HCl (Phenergan) 25 mg IM Q6H PRN PRN PRN Reason: Breakthrough Nausea/Vomiting Sodium Chloride () 10 - 40 ml IV UD PRN PRN Reason: SALINE FLUSH Last Admin: 10/08/19 05:16 Dose: 10 ml Documented by: Spironolactone (Aldactone) 25 mg PO DAILY NIKKI Last Admin: 10/07/19 08:56 Dose: 25 mg Documented by: Medical Necessity - Tobacco Use Smoking Status: Current some day smoker Assessment/Plan All Active Problems (Last Reviewed 10/05/19 @ 13:53 by Rohan Yeh MD) Acute CHF (Acute) Thrush, oral (Resolved) RECOMMENDATIONS: 1. Continue diuretic therapy per cardiology recommendations. 2. Resume Xarelto. 3. Continue bronchodilators. 4. Wean supplemental oxygen to maintain saturations at or above 90%. 5. Perform walking oximetry study prior to consideration for discharge home. 6. Outpatient pulmonary follow-up within 2 weeks of discharge is warranted. IMPRESSIONS: 1. Acute hypoxemic respiratory insufficiency Likely secondary to right pleural effusion in the setting of decompensated heart failure. The patient's echocardiogram did reveal a depressed ejection fraction when compared to prior echocardiogram, along with valvular heart disease and pulmonary hypertension. Her BNP was elevated. Therefore, I do suspect that her pleural effusion is likely secondary to her current cardiac status. Agree with attempts at aggressive diuresis. The patient also underwent a successful ultrasound-guided thoracentesis with 850 mL's of fluid removed. Per traditional Light's criteria, if at least one of the following three is fulfilled, the fluid would be considered an exudate: 1. Pleural fluid protein/serum protein ratio greater than 0.5 2. Pleural fluid LDH/serum LDH ratio greater than 0.6 3. Pleural fluid LDH greater than two thirds the upper limits of the laboratories normal serum LDH Based upon my review of the patient's pleural fluid analysis, along with serum LDH and total protein levels, the pleural fluid would be considered transudative in nature. 2. Non-small cell carcinoma of the lung The patient is currently under the management of [facility] oncology. 3. Continuous tobacco dependency Complete tobacco cessation is strongly recommended. Counseling was provided. 4. Baseline severe COPD without exacerbation Continue scheduled bronchodilators and inhaled corticosteroid. 5. Paroxysmal atrial fibrillation/history of breast CA/hypertension/hyponatremia/hypokalemia Complicates care, management, recovery and prognosis. Suspect electrolyte abnormalities are related to state of hypervolemia. Continue electrolyte repletion as needed. This note was generated with [employer] software. It may contain incorrect words, spelling, and punctuation that were not noted in checking the note before signing. Code Visit Inpatient E&M: 80485 Subs Hosp L2
[2019-10-08 06:52] LABS: Anion Gap 2 (5-15); BUN 7 mg/dL (7-18); BUN/Creat Ratio 13.4 RATIO (10-20); Calcium,Total 9.4 mg/dL (8.5-10.1); Chloride 90 mmol/L (98-107); Creatinine, Serum 0.52 mg/dL (0.55-1.02); EST Glomerular Filtration Rate 122 mL/min (>60); Est Glom Filt Rate - Afr Amer 148 mL/min (>60); Estimated Creatinine Clearance 43.91 ml/min; Glucose 113 mg/dL (74-106); Potassium 3.5 mmol/L (3.5-5.1); Sodium Level 130 mmol/L (136-145)
[2019-10-08] MEDS: Multivitamins,Ther W-Minerals Tablet 1 TABLET PO (09:02)
[2019-10-08] MEDS: Carvedilol 25 MG Tablet PO (09:02)
[2019-10-08] MEDS: Lisinopril 20 MG Tablet PO (09:02)
[2019-10-08] MEDS: Spironolactone 25 MG Tablet PO (09:03)
[2019-10-08] MEDS: guaiFENesin 1,200 MG Tablet 1200 MG PO (09:03)
--- NOTE | 2019-10-08 09:43 | PCM.DC ---
- Discharge Diagnoses Current Active Problems: Current Active and Chronic Problems (Last Reviewed 10/05/19 @ 13:53 by Rohan Yeh MD) Atrial fibrillation (Chronic) Acute CHF (Acute) Hypertension (Chronic) You will use the following diet at home:: Fluid restricted (specify 2000 mls, 1500 mls) - 1500 Your food should be the consistency of: Regular Allergies/Adverse Reactions: Allergies albuterol sulfate [From Combivent] Allergy (Verified 10/05/19 11:08) Swelling ipratropium bromide [From Combivent] Allergy (Verified 10/05/19 11:08) Swelling metoprolol Allergy (Verified 10/05/19 11:08) Laryngospasms Sulfa (Sulfonamide Antibiotics) Allergy (Verified 10/05/19 11:08) Rash beclomethasone [From Qvar] Adverse Reaction (Verified 10/05/19 11:08) COUGHING benzalkonium chloride [From Merthiolate (benzalkonium)] Adverse Reaction (Verified 10/05/19 11:08) Other codeine Adverse Reaction (Verified 10/05/19 11:08) doesn't remember doxycycline Adverse Reaction (Verified 10/05/19 11:08) Abd cramps/diarrhea formoterol fumarate [From Dulera] Adverse Reaction (Verified 10/05/19 11:08) Other hydrochlorothiazide Adverse Reaction (Verified 10/05/19 11:08) Other ibuprofen [From Advil] Adverse Reaction (Verified 10/05/19 11:08) Other iodine Adverse Reaction (Verified 10/05/19 11:08) Itching merbromin Adverse Reaction (Verified 10/05/19 11:08) Other mometasone furoate [From Dulera] Adverse Reaction (Verified 10/05/19 11:08) Other oseltamivir [From Tamiflu] Adverse Reaction (Verified 10/05/19 11:08) uterine pain prednisone Adverse Reaction (Verified 10/05/19 11:08) Abd cramps/diarrhea PLASTIC TAPE Allergy (Uncoded 10/05/19 11:08) Rash Medications to take at Discharge Albuterol Inhaler [Ventolin Hfa] 1 - 2 puff INHALATION Q4H PRN PRN 10/16/16 carvedilol 25 mg tablet 25 mg PO BID #180 tab 02/02/19 quinapril 20 mg tablet 20 mg PO BID #180 tab 02/02/19 rivaroxaban 20 mg tablet 20 mg PO DINNER #30 tab 02/02/19 fluticasone propionate-salmeterol 230 mcg-21 mcg/actuation HFA inhaler 2 puff INHALATION BID #1 device 04/08/19 furosemide 40 mg tablet 40 mg PO BID #120 tab 07/23/19 potassium chloride 20 mEq tablet,extended release 20 meq PO DAILY #90 tab 07/23/19 Multivit-Min/Iron/Folic/Lutein [Centrum Silver Women Tablet] 1 tab PO DAILY 10/05/19 Tiotropium [place] [Spiriva Respimat] 2 puff INHALATION BID 10/05/19 Spironolactone [Aldactone] 25 mg PO DAILY #60 tab 10/08/19 The following prescriptions were given: Spironolactone [Aldactone] 25 mg PO DAILY #60 tab Transmission Status: Pending to [facility] [place] [facility] Primary Care Physician: Juan Brandt MD [Primary Care Provider] - Please follow up with your Primary Care Physician in: in 5-7 days Test Results: Test results from this visit will be discussed in further detail at your follow-up appointment, if applicable. Please Follow Up With: Juan Brandt MD Please Follow Up With: Rusty Jovel MD When: in 2-3 weeks Please Follow Up With: Mark Campos DO When: in 2-3 weeks Please Follow Up With: Clinic,Wound When: for leg wraps Proposed Discharge Date: 10/08/19
--- NOTE | 2019-10-08 09:45 | DS.PCM_ITS ---
Discharge Date and Diagnosis Date of Admission: 10/05/19 Date of Discharge: 10/08/19 - Primary Discharge Diagnosis Active and Suspected Problems (Last Reviewed 10/05/19 @ 13:53 by Rohan Yeh MD) Acute CHF (Acute) - Secondary Discharge Diagnosis Chronic Problems (Last Reviewed 10/05/19 @ 13:53 by Rohan Yeh MD) Paroxysmal atrial fibrillation (Chronic) Atrial fibrillation (Chronic) Nonrheumatic mitral (valve) insufficiency (Chronic) Lung mass (Chronic) Suspected chronic obstructive pulmonary disease based on initial evaluation (Chronic) History of breast cancer (Chronic) COPD (chronic obstructive pulmonary disease) (Chronic) Hypertension (Chronic) Hospital Course and Treatment Consultations 10/05/19 13:45 Consult: Onc/Wound/adolescent counselor Routine Comment: Operations: None Summary of Care Provided: Patient is a 73-year-old lady who presented with progressive shortness of breath and assessment of acute congestive heart failure made admitted to monitored nursing floor further management 1. Acute congestive heart failure with reduced ejection fraction. ?Echo obtained on 04/29/2018 demonstrated preserved ejection fraction of 50%. Patient has been admitted to monitored bed placed on strict input and output: Daily weight, low-sodium diet and IV Lasix. Repeat echo ordered for EF assessment ?10/06/2019; repeat echo demonstrated Normal LV size. The estimated ejection fraction is 37 %. No regional wall motion abnormalities noted. The right atrium is mildly enlarged. Moderate pulmonary hypertension. Pulmonary artery systolic pressure is 60 mmHg. Small pericardial effusion. Consult was placed to cardiology given patient significantly reduced ejection fraction 2. Right-sided pleural effusion ~[place] to be related to patient acute congestive heart failure. Patient had previously been seen and evaluated by Dr. Campos with pulmonary medicine consult placed to him case discussed with him. Did discuss about possibility of patient undergoing ultrasound-guided thoracocentesis if pleural effusion persist. Repeat chest x-ray ordered for 10/07/2019. ?10/07/2019; Follow-up chest x-ray obtained this a.m. was questionable for small right apical pneumothorax however CT subsequently obtained did not demonstrate any evidence of pleural effusion. Patient has subsequently been scheduled to undergo ultrasound-guided thoracocentesis of her right-sided pleural effusion. ~ 10/08/2019 thoracocentesis performed the day prior; 850 mL of transudate fluid was taking on. Case was discussed with Dr. Campos on the day of patient's discharge to follow-up with the patient regarding the cytology results 3. Paroxysmal atrial fibrillation ~ rate controlled on systemic anticoagulation with Xarelto did continue ?10/06/2019; Xarelto held in anticipation of possible ultrasound-guided thoracocentesis 4. COPD ~ Currently not in exacerbation did continue patient home aerosol regimen 5. History of breast CA ~status post chemoradiation with left mastectomy and right lumpectomy and has since remained in remission 6. Non-small cell carcinoma of lung ?Involving the left upper lobe. Patient was treated with radiation therapy. Patient was deemed to be a poor surgical candidate for resection in view of her severe underlying obstructive lung disease. Patient is managed by Dr. Cazares as outpatient 7. Hypertension ~ blood pressure controlled, home medications continued with dose adjustment as needed 8. Tobacco dependence counseled on cessation, offered nicotine patch for tobacco cravings 9. DVT prophylaxis ~ Xarelto 10. Hyponatremia ~Thought to be secondary to patient fluid overload status as well as possible SIADH given patient history of lung CA ?10/07/2019: Patient sodium levels improving with fluid restriction 11. Hypokalemia ~Corrected per protocol. Subsequent BMP ordered for monitoring 4. Acute respiratory insufficiency secondary to patient's CHF as well as COPD Patient was assessed for home oxygen prior to discharge she did qualify she would need portability since patient is active both at home as well as in the community Objective: GENERAL: cooperative HEENT: Atraumatic; EYES; Anicteric, Normal Conjunctiva NECK; supple, normal thyroid, RESPIRATORY: Diminished to auscultation CARDIOVASCULAR: Regular S1 S2, GI: soft, normoactive bowel sounds, : No Renal angle tenderness; EXTREMITIES: Bilateral stasis dermatitis, MUSCULOSKELETAL: no muscle waisting NEURO: Awake; no lateralizing signs. SKIN: No Rash PSYCH; Flat affect - Physical Exam Vitals/I&O's: Vital Signs Temp Pulse Resp BP Pulse Ox 97.5 F L 84 18 125/64 H 86 10/08/19 09:00 10/08/19 09:00 10/08/19 09:00 10/08/19 09:00 10/08/19 09:19 Oxygen Flow Rate (L/min) [4] 2 Oxygen Flow Rate (L/min) [3] 2 Oxygen Flow Rate (L/min) [2] 2 Oxygen Flow Rate (L/min) [1 ( 2 Initial Baseline)] Oxygen Flow Rate (L/min) 2 Oxygen Delivery Method [4] Nasal Cannula Oxygen Delivery Method [3] Nasal Cannula Oxygen Delivery Method [2] Nasal Cannula Oxygen Delivery Method [1 ( Nasal Cannula Initial Baseline)] Oxygen Delivery Method Room Air Weight: 75.1 kg Body Mass Index (BMI) 29.7 Intake and Output for Last 24 Hours 10/06/19 10/07/19 10/08/19 23:59 23:59 23:59 Intake Total 1071 / 1071 674 / 974 540 / 540 Output Total 1750 / 1750 6400 / 7600 1900 / 1900 Balance -679 / -679 -5726 / -6626 -1360 / -1360 Laboratory Results 10/07/19 06:00: PT 16.7 H, INR 1.4 10/07/19 14:00: Fluid Glucose 105 H, Fluid Total Protein 2.8, Fluid LDH 59 10/07/19 14:00: Miscellaneous Cytology Pending 10/07/19 14:00: Fluid Source THORACENTESIS, Fluid Color YELLOW, Fluid Appearance SL CLDY, Fluid WBC 0.087, Fluid RBC 604, Fluid Tot Cell Count 0.098 H, Fld Polynuclear WBCs # 0.010, Fld Polynuclear WBCs % 11.5, Fluid Mononuclear WBCs 0.077, Fld Mononuclear WBCs % 88.5, Fluid Neutrophils 16, Fluid Lymphocytes 28, Fluid Monocytes 36, Fluid Other Cells 20, Fl Pathologist Comment May follow, Fluid Comment 2 SEE COMMENT 10/08/19 05:55: Sodium 130 L, Potassium 3.5, Chloride 90 L, Carbon Dioxide 38.0 H, Anion Gap 2 L, BUN 7, Creatinine 0.52 L, Estim Creat Clear Calc 43.91, Est GFR (MDRD) Af Amer 148, Est GFR (MDRD) Non-Af 122, BUN/Creatinine Ratio 13.4, Glucose 113 H, Calcium 9.4 Current Medications Acetaminophen (Tylenol) 650 mg PO Q6H PRN PRN PRN Reason: Pain Score 1-3/Temp > 100.7 F Last Admin: 10/08/19 05:12 Dose: 650 mg Documented by: Al Hydroxide/Mg Hydroxide (Mylanta Ii) 30 ml PO Q6H PRN PRN PRN Reason: Gastric Burning Albuterol Sulfate (Ventolin Aerosols) 2.5 mg INHALATION Q2H PRN PRN PRN Reason: DYSPNEA/WHEEZING/SOB Albuterol/Ipratropium (Duoneb) 3 ml INHALATION Q6HWA.RT [facility] Last Admin: 10/08/19 06:39 Dose: 3 ml Documented by: Benzonatate (Tessalon Perle) 100 mg PO TID PRN PRN PRN Reason: COUGH Last Admin: 10/06/19 21:37 Dose: 100 mg Documented by: Budesonide (Pulmicort Aerosol) 0.5 mg INHALATION Q12H.RT [facility] Last Admin: 10/08/19 06:39 Dose: 0.5 mg Documented by: Carvedilol (Coreg) 25 mg PO BID [facility] Last Admin: 10/08/19 09:02 Dose: 25 mg Documented by: Furosemide (Lasix) 40 mg IV Q8 [facility] Last Admin: 10/08/19 05:15 Dose: 40 mg Documented by: Guaifenesin (Robitussin) 20 ml PO Q4H PRN PRN PRN Reason: COUGH Last Admin: 10/06/19 16:19 Dose: 20 ml Documented by: Guaifenesin (Mucinex) 1,200 mg PO BID [facility] Last Admin: 10/08/19 09:03 Dose: 1,200 mg Documented by: Lisinopril (Zestril) 20 mg PO BID [facility] Last Admin: 10/08/19 09:02 Dose: 20 mg Documented by: Magnesium Hydroxide (Milk Of Magnesia) 30 ml PO DAILY PRN PRN PRN Reason: Constipation Melatonin (Melatonin) 3 mg PO QHS PRN PRN PRN Reason: INSOMNIA Multivitamins/Minerals (Multivitamin With Minerals) 1 tablet PO DAILY@0800 [facility] Last Admin: 10/08/19 09:02 Dose: 1 tablet Documented by: Nutritional Formula (Lactose Free) (Ensure Enlive) 60 ml PO 4X/DAY [facility] Last Admin: 10/08/19 09:06 Dose: 60 ml Documented by: Ondansetron HCl (Zofran) 4 mg IV Q8H PRN PRN PRN Reason: NAUSEA/VOMITING Oxycodone HCl (Oxyir) 5 mg PO Q4H PRN PRN PRN Reason: Pain Score 4-5/10 Oxycodone HCl (Oxyir) 10 mg PO Q4H PRN PRN PRN Reason: Pain Score 6-10/10 Potassium Ch[facility] ([facility]-Dur) [facility] Admin: 10/08/19 09:02 Dose: 40 meq Documented by: Promethazine HCl (Phenergan) 25 mg IM Q6H PRN PRN PRN Reason: Breakthrough Nausea/Vomiting Sodium Chloride () 10 - 40 ml IV UD PRN PRN Reason: SALINE FLUSH Last Admin: 10/08/19 05:16 Dose: 10 ml Documented by: Spironolactone (Aldactone) 25 mg PO DAILY [facility] Last Admin: 10/08/19 09:03 Dose: 25 mg Documented by: Discharge Diet: 8 Cup Fluid Restriciton Discharge Activity: Return to Normal Activity Home Medications: Medications to take at Discharge Albuterol Inhaler [Ventolin Hfa] 1 - 2 puff INHALATION Q4H PRN PRN 10/16/16 carvedilol 25 mg tablet 25 mg PO BID #180 tab 02/02/19 quinapril 20 mg tablet 20 mg PO BID #180 tab 02/02/19 rivaroxaban 20 mg tablet 20 mg PO DINNER #30 tab 02/02/19 fluticasone propionate-salmeterol 230 mcg-21 mcg/actuation HFA inhaler 2 puff INHALATION BID #1 device 04/08/19 furosemide 40 mg tablet 40 mg PO BID #120 tab 07/23/19 potassium chloride 20 mEq tablet,extended release 20 meq PO DAILY #90 tab 07/23/19 Multivit-Min/Iron/Folic/Lutein [Centrum Silver Women Tablet] 1 tab PO DAILY 10/05/19 Tiotropium [place] [Spiriva Respimat] 2 puff INHALATION BID 10/05/19 Spironolactone [Aldactone] 25 mg PO DAILY #60 tab 10/08/19 Following Prescrptions Were Given to Patient: Spironolactone [Aldactone] 25 mg PO DAILY #60 tab Transmission Status: Received by [employer] [id number] Primary Care Physician: Juan Brandt MD [Primary Care Provider] - Please follow up with your Primary Care Physician in: in 5-7 days Please Follow Up With: Juan Brandt MD Please Follow Up With: Rusty Jovel MD When: in 2-3 weeks Please Follow Up With: Brown,Mark, DO When: in 2-3 weeks Please Follow Up With: Clinic,Wound When: for leg wraps Disposition: Home Minutes spent on discharge:: 35 Patient Condition:: Stable Medical Necessity - Tobacco Use Smoking Status: Current some day smoker Meaningful Use Info Meaningful Use Diagnoses (Choose all that apply): CHF - CHF EVELIN/ARB ordered at discharge?: Yes Documented LVEF (%): 35 Code Visit Inpatient E&M: 67742 Disch Hosp
--- NOTE | 2019-10-08 10:57 | CASEMGMT ---
Per Jesica MARION, pt does qualify for home oxygen at this time. Pt provided with list of local DME companies and pt would like [facility] for home oxygen at this time. Referral faxed to [facility] at this time and call to Omar at [facility] and he is aware of referral and that pt to be discharged today, voices understanding. Pt declines any other needs at this time and per Shahid, slots manager, pt's will change dressings at home and pt will f/u in the wound clinic at discharge. [place] secretary of state aware at this time to make f/u appt in the wound center, voices understanding. Pt/ voice no further concerns/needs at this time. Brenton MARION CM
[2019-10-08 14:12] LABS: Pathologist Comment/Body Fluid Reviewed
--- NOTE | 2019-10-09 16:46 | CASEMGMT ---
SANAM THAPA Discharge Follow-Up Phone Call. Marialuisa: Comfort Strata: 3 Discharge Date: 10/08/19 Adm Dx: CHF Call to pt to inquire about how she has been doing since being discharged from the hospital. Pt states, I'm doing great. She states she was able to peanut picker the new prescription yesterday after discharge and denies having any questions about the discharge instructions or medications. She states she is aware of the follow-up appts with the doctors. She also states she has been doing the exercises the therapists gave her. She states her breathing is good as well and that the home oxygen was delivered shortly upon returning home yesterday. She denies having any concerns/needs. SANAM THAPA thanked pt for choosing [facility] Benjy STOKESN SANAM THAPA
== END 2019-10-08 11:51 | disposition home or self-care (01) | DRG 291 ==
LOC: ED 13:40 → PCU 13:44
PROVIDERS: Internal Medicine Critical Care Medicine; Admitting Provider Internal Medicine; Emergency Provider Emergency Medicine; Family Provider Family Medicine; PCP Family Medicine; Referring Provider Internal Medicine; Visit Provider Internal Medicine
DX: I11.0 Hypertensive heart disease with heart failure (principal); I50.21 Acute systolic (congestive) heart failure; J91.8 Pleural effusion in other conditions classified elsewhere; C34.12 Malignant neoplasm of upper lobe, left bronchus or lung; E22.2 Syndrome of inappropriate secretion of antidiuretic hormone; I48.0 Paroxysmal atrial fibrillation; J44.9 Chronic obstructive pulmonary disease, unspecified; E87.6 Hypokalemia; I34.0 Nonrheumatic mitral (valve) insufficiency; F17.200 Nicotine dependence, unspecified, uncomplicated; I27.20 Pulmonary hypertension, unspecified; Z85.3 Personal history of malignant neoplasm of breast; Z92.3 Personal history of irradiation; Z92.21 Personal history of antineoplastic chemotherapy; Z90.12 Acquired absence of left breast and nipple; Z79.01 Long term (current) use of anticoagulants; R06.89 Other abnormalities of breathing
CPT/HCPCS: 32555; 36415; 71045; 71046; 71250; 80048; 82945; 83615; 83880; 84156; 84157; 84484; 85025; 85610; 85730; 88108; 88305; 88313; 89050; 93005; 93306; 94640; 97116; 97162; 97165; 97530; 97802; 99251; 99285; 99406; A4216; G0463; J1940

== ENCOUNTER 2019-10-20 09:01 | Outpatient (RCR) | payer MEDICARE, OTHER, SELFPAY ==
[2019-10-05 13:49] VITALS: BMI 29.7
[2019-10-20 09:20] VITALS: BP 140/69; PULSE 98; RESP 16; TEMP 36.7; BMI 25.4
--- NOTE | 2019-10-20 13:25 | HP.PCM_ITS ---
(1) Tobacco abuse Status: Chronic Current Visit: Yes Code(s): Z72.0 - Tobacco use (2) Tobacco abuse counseling Status: Chronic Current Visit: Yes Code(s): Z71.6 - Tobacco abuse counseling (3) Lumbar disc disease Status: Chronic Current Visit: No Code(s): M51.9 - Unspecified thoracic, thoracolumbar and lumbosacral intervertebral disc disorder (4) Dependence on supplemental oxygen Status: Chronic Current Visit: Yes Code(s): Z99.81 - Dependence on supplemental oxygen (5) Debility Status: Chronic Current Visit: Yes Code(s): R53.81 - Other malaise (6) Chronic anticoagulation Status: Chronic Current Visit: No Code(s): Z79.01 - skilled nursing (current) use of anticoagulants (7) Dependent edema Status: Chronic Current Visit: Yes Code(s): R60.9 - Edema, unspecified (8) Immobility Status: Chronic Current Visit: Yes Code(s): Z74.09 - Other reduced mobility (9) Leg swelling Status: Chronic Current Visit: Yes Code(s): M79.89 - Other specified soft tissue disorders (10) Leg edema, left Status: Chronic Current Visit: Yes Code(s): R60.0 - Localized edema (11) Leg edema, right Status: Chronic Current Visit: Yes Code(s): R60.0 - Localized edema (12) Bilateral leg ulcer Status: Chronic Current Visit: Yes Qualifiers: Non-pressure ulcer stage: with fat layer exposed Qualified Code(s): L97.912 - Non-pressure chronic ulcer of unspecified part of right lower leg with fat layer exposed; L97.922 - Non-pressure chronic ulcer of unspecified part of left lower leg with fat layer exposed Code(s): L97.919 - Non-pressure chronic ulcer of unspecified part of right lower leg with unspecified severity; L97.929 - Non-pressure chronic ulcer of unspecified part of left lower leg with unspecified severity (13) Atrial fibrillation Status: Chronic Current Visit: No Qualifiers: Code(s): I48.91 - Unspecified atrial fibrillation (14) Nonrheumatic mitral (valve) insufficiency Status: Chronic Current Visit: No Code(s): I34.0 - Nonrheumatic mitral (valve) insufficiency (15) Suspected chronic obstructive pulmonary disease based on initial evaluation Status: Chronic Current Visit: No Code(s): J44.9 - Chronic obstructive pulmonary disease, unspecified (16) Acute CHF Status: Acute Current Visit: No Qualifiers: Code(s): I50.9 - Heart failure, unspecified (17) History of breast cancer Status: Chronic Current Visit: No Code(s): Z85.3 - Personal history of malignant neoplasm of breast (18) COPD (chronic obstructive pulmonary disease) Status: Chronic Current Visit: No Qualifiers: Code(s): J44.9 - Chronic obstructive pulmonary disease, unspecified (19) Hypertension Status: Chronic Current Visit: No Qualifiers: Code(s): I10 - Essential (primary) hypertension History of Present Illness Date of Service: 10/20/19 Chief Complaint: Bilateral lower extremity swelling and edema with bilateral lower extremity ulcerations. History of Wound: This is a 73-year-old female who was hospitalized approximately 2 weeks ago at [facility] and treatment for congestive heart failure and a right pleural effusion. She was treated medically by means of diuretics, and underwent a right thoracentesis for drainage of her pleural effusion. She was noted to have extreme swelling and edema in her lower extremities, which has persisted until the current time. She presents for evaluation and management relative to the swelling and edema in her lower extremities, which are associated with ulcerations. The patient is debilitated, and relatively immobile. Her ambulatory capacity is extremely limited. She sits throughout the day, and sleeps in a chair in an upright position at night. The swelling and edema in her legs has been present for over 1 month. The ulcerations on her lower extremities are said to have begun as blisters. The patient denies a history of lower extremity thrombophlebitis. She has multiple pre-existing medical problems, as listed below. Past Medical History Past Medical History: Chronic Problems (Last Reviewed 10/05/19 @ 13:53 by Rohan Yeh MD) Tobacco abuse (Chronic) Tobacco abuse counseling (Chronic) Lumbar disc disease (Chronic) Dependence on supplemental oxygen (Chronic) Debility (Chronic) Chronic anticoagulation (Chronic) Dependent edema (Chronic) Immobility (Chronic) Leg swelling (Chronic) Leg edema, left (Chronic) Leg edema, right (Chronic) Bilateral leg ulcer (Chronic) Paroxysmal atrial fibrillation (Chronic) Atrial fibrillation (Chronic) Nonrheumatic mitral (valve) insufficiency (Chronic) Lung mass (Chronic) Suspected chronic obstructive pulmonary disease based on initial evaluation (Chronic) History of breast cancer (Chronic) COPD (chronic obstructive pulmonary disease) (Chronic) Hypertension (Chronic) Past Medical History: The patient's history is negative for diabetes mellitus. The patient has a history of atrial fibrillation, for which she is on systemic anticoagulation with Xarelto. She has a history of congestive heart failure, bilateral breast cancer, chronic obstructive pulmonary disease, hypertension, tobacco abuse, lumbar disc disease, debility, and obesity. Surgical History: mastectomy, - - The patient has previously undergone a left ma stectomy, right breast lumpectomy, and resection of a left pulmonary nodule. She also has undergone tubal ligation. She is a Ab0. Allergies/Adverse Reactions: Allergies albuterol sulfate [From Combivent] Allergy (Verified 10/05/19 11:08) Swelling ipratropium bromide [From Combivent] Allergy (Verified 10/05/19 11:08) Swelling metoprolol Allergy (Verified 10/05/19 11:08) Laryngospasms Sulfa (Sulfonamide Antibiotics) Allergy (Verified 10/05/19 11:08) Rash beclomethasone [From Qvar] Adverse Reaction (Verified 10/05/19 11:08) COUGHING benzalkonium chloride [From Merthiolate (benzalkonium)] Adverse Reaction (Verified 10/05/19 11:08) Other codeine Adverse Reaction (Verified 10/05/19 11:08) doesn't remember doxycycline Adverse Reaction (Verified 10/05/19 11:08) Abd cramps/diarrhea formoterol fumarate [From Dulera] Adverse Reaction (Verified 10/05/19 11:08) Other hydrochlorothiazide Adverse Reaction (Verified 10/05/19 11:08) Other ibuprofen [From Advil] Adverse Reaction (Verified 10/05/19 11:08) Other iodine Adverse Reaction (Verified 10/05/19 11:08) Itching merbromin Adverse Reaction (Verified 10/05/19 11:08) Other mometasone furoate [From Dulera] Adverse Reaction (Verified 10/05/19 11:08) Other oseltamivir [From Tamiflu] Adverse Reaction (Verified 10/05/19 11:08) uterine pain prednisone Adverse Reaction (Verified 10/05/19 11:08) Abd cramps/diarrhea PLASTIC TAPE Allergy (Uncoded 10/05/19 11:08) Rash Home Medications: Ambulatory Orders Medication Instructions Recorded Albuterol Inhaler [Ventolin Hfa] 1 - 2 puff INHALATION Q4H PRN PRN 10/16/16 carvedilol 25 mg tablet 25 mg PO BID #180 tab 02/02/19 quinapril 20 mg tablet 20 mg PO BID #180 tab 02/02/19 rivaroxaban 20 mg tablet 20 mg PO DINNER #30 tab 02/02/19 fluticasone propionate-salmeterol 2 puff INHALATION BID #1 device 04/08/19 230 mcg-21 mcg/actuation HFA inhaler furosemide 40 mg tablet 40 mg PO BID #120 tab 07/23/19 potassium chloride 20 mEq 20 meq PO DAILY #90 tab 07/23/19 tablet,extended release Multivit-Min/Iron/Folic/Lutein 1 tab PO DAILY 10/05/19 [Centrum Silver Women Tablet] Tiotropium [place] [Spiriva 2 puff INHALATION BID 10/05/19 Respimat] Spironolactone [Aldactone] 25 mg PO DAILY #60 tab 10/08/19 - Family History Maternal Family History: Family History (Last Reviewed 10/05/19 @ 13:53 by Rohan Yeh MD) Father Emphysema of lung Sister Cancer No pertinent history Paternal Family History: Family History (Last Reviewed 10/05/19 @ 13:53 by Rohan Yeh MD) Father Emphysema of lung Sister Cancer No pertinent history Social History: The patient lives with her . 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 She has a longstanding history of tobacco abuse. She has several alcoholic beverages on a daily basis. Lives: Spouse/ Significant Other Smoking Status: Current some day smoker Tobacco Use: Cigarettes Alcohol: Heavy - Daily Drugs: None Review of Systems Constitutional: Denies: Chills, Fever, Weight Change Eyes: Denies: Pain, Vision Change HEENT: Denies: Difficulty Hearing, Difficulty Swallowing, Sinus Congestion Cardiovascular: Denies: Chest Pain, Palpitations Respiratory: Denies: Cough, Shortness of Breath Gastrointestinal: Denies: Diarrhea, Nausea, Vomiting Genitourinary: Denies: Dysuria, Hematuria Endocrine: Denies: Heat/ Cold Intolerance, Polydipsia, Polyuria Hematologic/ Lymphatic: Denies: Easy Bruising, Easy Bleeding - Physical Exam Vital Signs Temp Pulse Resp BP 98.1 F 98 16 140/69 H 10/20/19 09:20 10/20/19 09:20 10/20/19 09:20 10/20/19 09:20 General: Alert, Oriented x3, Cooperative, No apparent distress, Well developed, Well nourished, - - Patient is mildly obese HEENT: Atraumatic, PERRLA, EOMI, Normocephalic Oral: Moist Mucosa Neck: Supple, No JVD, Negative Carotid Bruits, Negative Hepatojugular Reflux, No Nodes, No Nuchal Rigidity, Trachea Midline Lungs: Clear to auscultation, Normal air movement, No rhonchi, No wheeze, No rales Cardiovascular: Regular rate, Regular Rhythm, Normal S1, Normal S2, No murmurs Abdomen: Soft, Non Tender, Non-Distended, Obese Extremities: No clubbing, No cyanosis, No Calf Tenderness, - - Bilateral lower extremity swelling and edema is noted. There are ulcerations on the right posterior calf, which is rather large in size, and on both the left medial and lateral calf. Dimensions are documented elsewhere. There is a moderate amount of bioburden. There is no sign of infection or cellulitis. Wound Measurements and Assessment WC - Nurse 1 - General Ulcer Measurement Start: 10/20/19 09:20 Freq: Status: Active Protocol: Activity Type Activity Date Activity User E-Sign Co-Sign Detail Recorded Client Recorded Date Recorded By Document 10/20/19 09:20 [facility] [id number] 10/20/19 09:46 [facility] 10/20/19 09:20 Wound Center Nurse 1 [Ulcer Assessment] #3 L MED LE -Current Size (cm) - Length 1.9 -Current Size (cm) - Width 0.3 -Current Size (cm) - Depth 0.1 -Total Square Cm 0.57 -Photo Taken Yes -Exudate Amt Medium -Exudate Type Serosanguineous -Wound Margin Distinct, Outline Attached -Granulation Amt Large (67-100%) -Granulation Quality Pale,[place] -Necrosis Amt Small (1-33%) -Necrotic Tissue Type Adherent Slough -Structure Exposed N/A -Texture (Yesenia-wound Skin Appearance) Localized Edema ,Scarring -Moisture (Yesenia-wound Skin Appearance Weeping ) -Color (Yesenia-wound Skin Appearance) Erythema -Temperature (Yesenia-wound Skin No Abnormality Appearance) (Pt Warm) -Tenderness on Palpation (Yesenia-wound Yes Skin Appearance) -Ulcer Cleansing Wound Cleanser -Anesthetic Used 4% Lidocaine Solution,5% Lidocaine Gel #2 L LAT LE -Current Size (cm) - Length 0.9 -Current Size (cm) - Width 0.4 -Current Size (cm) - Depth 0.2 -Total Square Cm 0.36 -Photo Taken Yes -Classification - Thickness Full Thickness without Exposed Support Structure -Exudate Amt Medium -Exudate Type Serosanguineous -Wound Margin Distinct, Outline Attached -Granulation Amt Medium (34-66%) -Granulation Quality Red -Necrosis Amt Medium (34-66%) -Necrotic Tissue Type Adherent Slough -Structure Exposed N/A -Texture (Yesenia-wound Skin Appearance) Localized Edema ,Scarring -Moisture (Yesenia-wound Skin Appearance Weeping ) -Color (Yesenia-wound Skin Appearance) Erythema -Temperature (Yesenia-wound Skin No Abnormality Appearance) (Pt Warm) -Tenderness on Palpation (Yesenia-wound Yes Skin Appearance) -Ulcer Cleansing Wound Cleanser -Foul Odor after Cleansing No -Anesthetic Used 4% Lidocaine Solution,5% Lidocaine Gel #1 r cALF -Current Size (cm) - Length 16.2 -Current Size (cm) - Width 17.1 -Current Size (cm) - Depth 0.1 -Total Square Cm 277.02 -Photo Taken Yes -Classification - Thickness Full Thickness without Exposed Support Structure -Exudate Amt Large -Exudate Type Serosanguineous -Wound Margin Indistinct, Non -Visible -Granulation Amt Medium (34-66%) -Granulation Quality Red -Necrosis Amt Medium (34-66%) -Necrotic Tissue Type Adherent Slough -Structure Exposed N/A -Texture (Yesenia-wound Skin Appearance) Localized Edema ,Scarring -Moisture (Yesenia-wound Skin Appearance Weeping ) -Color (Yesenia-wound Skin Appearance) Erythema -Temperature (Yesenia-wound Skin No Abnormality Appearance) (Pt Warm) -Tenderness on Palpation (Yesenia-wound Yes Skin Appearance) -Ulcer Cleansing Wound Cleanser -Foul Odor after Cleansing No -Anesthetic Used 4% Lidocaine Solution,5% Lidocaine Gel [Edema Assessment] -Right Calf (cm) 41.1 -Right Ankle (cm) 23.5 -Left Calf (cm) 40.7 -Left Ankle (cm) 23.4 WC - Nurse 2 - General Ulcer CM Notes Start: 10/20/19 09:20 Freq: Status: Active Protocol: Activity Type Activity Date Activity User E-Sign Co-Sign Detail Recorded Client Recorded Date Recorded By Document 10/20/19 11:02 [facility] [id number] 10/20/19 11:07 10/20/19 11:02 Wound Center Nurse 2 [Procedure/Treatment] #3 L MED LE -Correct Patient No -Correct Side, Site, Position No -Correct Procedure No -Procedure Performed No -Wound/Ulcer Outcome Not Healed #2 L LAT LE -Correct Patient No -Correct Side, Site, Position No -Correct Procedure No -Procedure Performed No -Wound/Ulcer Outcome Not Healed #1 r cALF -Time 11:06 -Correct Patient Yes -Correct Side, Site, Position Yes -Correct Procedure Yes -Procedure Performed Yes -Type of Procedure Debridement -Clinical Debridement Subcutaneous -Post Debridement Size (cm) - Length 16.2 -Post Debridement Size (cm) - Width 17.2 -Post Debridement Size (cm) - Depth 0.1 -Total Square Cm 278.64 -Wound/Ulcer Outcome Not Healed -Ulcer Cleansing Rinsed/ Irrigated with Saline -Foul Odor after Cleansing No -Bioengineered Tissue No -Bleeding Controlled with Pressure -Offloading No -Treatment Response Procedure Tolerated Well [See Physician Procedure note for Specifics] Pain Scale: 0-10 Numeric [Pain] -Is Patient Pain Free? Yes Neurological: Cranial nerves II-XII grossly intact, Neuro grossly intact Psych/Mental Status: Normal Affect, Appropriate, Alert and oriented to time, place, person, mood and affect Debridement Note Post-Debridement Measurements/Treatment WC - Nurse 2 - General Ulcer CM Notes Start: 10/20/19 09:20 Freq: Status: Active Protocol: Activity Type Activity Date Activity User E-Sign Co-Sign Detail Recorded Client Recorded Date Recorded By Document 10/20/19 11:02 [facility] [id number] 10/20/19 11:07 10/20/19 11:02 Wound Center Nurse 2 #3 L MED LE -Correct Patient No -Correct Side, Site, Position No -Correct Procedure No -Procedure Performed No -Wound/Ulcer Outcome Not Healed #2 L LAT LE -Correct Patient No -Correct Side, Site, Position No -Correct Procedure No -Procedure Performed No -Wound/Ulcer Outcome Not Healed #1 r cALF -Time 11:06 -Correct Patient Yes -Correct Side, Site, Position Yes -Correct Procedure Yes -Procedure Performed Yes -Type of Procedure Debridement -Clinical Debridement Subcutaneous -Post Debridement Size (cm) - Length 16.2 -Post Debridement Size (cm) - Width 17.2 -Post Debridement Size (cm) - Depth 0.1 -Total Square Cm 278.64 -Wound/Ulcer Outcome Not Healed -Ulcer Cleansing Rinsed/ Irrigated with Saline -Foul Odor after Cleansing No -Bioengineered Tissue No -Bleeding Controlled with Pressure -Offloading No -Treatment Response Procedure Tolerated Well Pain Scale: 0-10 Numeric Is Patient Pain Free? Yes Laterality: Right - Posterior calf Type of Debridement: Excisional debridement Anesthesia Used: 5% Lidocaine Gel Depth: Down to and including healthy tissue, in the subcutaneous layer Percentage of wound debrided: 100 Instrument Used: 5mm curette Tissue Removed: Bioburden and nonviable tissue Severity: Fat Layer Exposed Amount of bleeding with debridement: Mild Bleeding Controlled with: Compression and gauze Patient tolerated procedure well - Additional Wound Laterality: Left - Medial and lateral calf Type of Debridement: Excisional debridement Anesthesia Used: 5% Lidocaine Gel Depth: Down to and including healthy tissue, in the subcutaneous layer Percentage of wound debrided: 100 Instrument Used: 5mm curette Tissue Removed: Bioburden and nonviable tissue Severity: Fat Layer Exposed Amount of bleeding with debridement: Mild Bleeding Controlled with: Compression and gauze Patient tolerated procedure: Patient tolerated procedure well Assessment/Plan Active Problems (Last Reviewed 10/05/19 @ 13:53 by Rohan Yeh MD) Tobacco abuse (Chronic) Tobacco abuse counseling (Chronic) Dependence on supplemental oxygen (Chronic) Debility (Chronic) Dependent edema (Chronic) Immobility (Chronic) Leg swelling (Chronic) Leg edema, left (Chronic) Leg edema, right (Chronic) Bilateral leg ulcer (Chronic) Assessment: This is a 73-year-old female who presents with severe swelling, edema, and ulcerations in her lower extremities. She has also noted drainage from her ulcerations as well. She has recently been treated as an inpatient at [facility] for congestive heart failure and a right pleural effusion. It has been ascertained that the patient is relatively immobile. She sits for long hours each day. Due to her pre-existing medical problems, she also sleeps in a chair, sitting in an upright position. Thus, it appears as though the swelling and edema in her lower extremities is largely related to dependency and a lack of activity. She has recently undergone diagnostic studies, the results of which are as follows: White blood count 4.1, hemoglobin 11.9, hematocrit 36.4, platelets 184,000, Plan: A lengthy discussion has been undertaken with the patient and her , who was at the bedside. The importance of leg elevation has been strongly stressed. Patient has been encouraged to elevate her lower extremities much as possible. She resolutely states that she is unable to lay on a flat mattress. Therefore, she has been encouraged to elevate her lower extremities as much as possible while in her recliner. It has been stressed that the patient should position her legs to the same level as her heart, or higher. This should be accomplished as much as possible. Activity has been encouraged. Prolonged idle sitting has been discouraged. We are to implement modest compression initially by means of Douglas wraps, though it is anticipated that this will be increased subsequent to the performance of a noninvasive lower extremity arterial study. A noninvasive lower extremity arterial study will be obtained to assess the arterial status in the patient's lower extremities. A venous duplex examination will also be obtained. We are to implement the use of Aquacel Extra topically to the ulcerations on her lower extremities. This will be applied on a daily basis. The patient has been instructed in the appropriate means of application. Patient is to return in 1 week for reassessment. Serial excisional debridements are anticipated. It is expected that the degree of compression will be enhanced, unless contraindicated by findings of her noninvasive lower extremity arterial study. Ultimately, mechanical pneumatic compression pumps may be of some benefit as well. Certainly, these measures will be implemented in staged fashion, given the patient's recent treatment for congestive heart failure. Nutritional optimization has been encouraged. Patient is to return in 1 week for reassessment. Influenza vaccine was not administered. The patient is a smoker, and has been advised to quit. Hazards of smoking have been explained. The patient weighs 148 pounds. She stands 5 feet 4 inches tall. Her BMI is 25.4, which places her in the overweight category. Weight optimization has been recommended.
== END 2019-10-20 23:59 ==
LOC: WC 09:01
PROVIDERS: Family Provider Family Medicine; PCP Family Medicine; Visit Provider Surgery
DX: I87.2 Venous insufficiency (chronic) (peripheral) (principal); J44.9 Chronic obstructive pulmonary disease, unspecified; M51.9 Unspecified thoracic, thoracolumbar and lumbosacral intervertebral disc disorder; R60.0 Localized edema; M79.89 Other specified soft tissue disorders; I48.20 Chronic atrial fibrillation, unspecified; I48.0 Paroxysmal atrial fibrillation; L97.222 Non-pressure chronic ulcer of left calf with fat layer exposed; L97.212 Non-pressure chronic ulcer of right calf with fat layer exposed; I11.0 Hypertensive heart disease with heart failure; I50.9 Heart failure, unspecified; Z99.81 Dependence on supplemental oxygen; Z79.01 Long term (current) use of anticoagulants; F17.210 Nicotine dependence, cigarettes, uncomplicated
CPT/HCPCS: 11042; 11045; 99213; G0463

== ENCOUNTER 2019-11-09 08:28 | Day surgery (SDC) | payer MEDICARE, OTHER, SELFPAY ==
[2019-10-22 12:23] VITALS: BMI 25.9
[2019-11-06 09:40] VITALS: BMI 25.9
[2019-11-06 11:50] VITALS: BMI 25.9
--- NOTE | 2019-11-09 11:06 | CL.D_ITS ---
Patient Name: EUNICE BRAVO Study Date: 11/09/2019 Performing: Rusty Jovel MD Ht: 64.17 inches 163 cm : 1945 Wt: 149.91 lbs 68 kg Age: 73 Gender: female BSA: 1.73 PROCEDURE(S) PERFORMED PR66-FQR/COR/LV CLINICAL PROFILE AND INDICATIONS Indications: Suspected CAD Heart Failure: NYHA Class: 2, Newly Diagnosed: Yes, Heart Failure Type: Diastolic CONCLUSIONS Mild nonobstructive coronary artery disease, hypertension, mitral annular calcification with mild reg urgitation. RECOMMENDATIONS Medical therapy Repeat echocardiogram DESCRIPTION OF PROCEDURE The patient arrived to the procedure lab. The risks and benefits of the procedure as well as a full d escription of our services here and current unavailability of surgical backup were fully explained to the patient and/or their significant other prior to the catheterization. The Timeout was completed, verifying the correct patient and procedure. The patient's procedural site was prepped and draped in the usual fashion. Local anesthetic was given subcutaneously to right radial region with Lidocaine 2% . Using a modified Seldinger technique, arterial access was obtained via the right radial artery, a 6 Fr sheath was inserted. Left Coronary Artery selective angiography was performed in multiple views u sing a 5 Fr. 4.0 Cayce catheter. Right Coronary Artery selective angiography was then performed in mu ltiple views using a 5 Fr. 4.0 Cayce catheter. Left Ventriculography was performed in LINO projection using a 5 Fr. Pigtail catheter. LV to AO pullback pressures were then recorded.The arterial sheath was pulled and a TR Band was applied for hemostasis. 11cc air CORONARY ANGIOGRAPHY DOMINANCE: Right Dominant LEFT HEART ASSESSMENT Left Ventricular Ejection Fraction: by LV Gram 60 % Normal LV wall motion Normal Left Ventricular systolic function LEFT MAIN: Mild calcification LEFT ANTERIOR DESCENDING ARTERY: MID LAD: Mild luminal irregularities less than 30% CIRCUMFLEX ARTERY: Mild luminal irregularities RIGHT CORONARY ARTERY: No significant disease noted VALVE FINDINGS: Mitral Valve Calcification Severe Mitral Valve Insufficiency - Grade 1 COMPLICATIONS No Complications PROCEDURE MEDICATIONS Fentanyl 25 mcg IV Fentanyl 25 mcg IV Versed 1 mg IV Fentanyl 25 mcg IV Heparin diluted in 23cc Heparinized saline. Patient given 10cc IA of this solution. 11/09/2019 10:41: 44 Verapamil 2.5mg, Ntg 100mcgs, 2000 units of Heparin diluted in 23cc Heparinized saline. Patient give n 10cc IA of this solution. 11/09/2019 10:41:44 SUMMARY OF HEMODYNAMIC DATA Time AIR REST ECG 09:17:54 ECG 10:28:17 AO 142/66 (94) SA 10:47:37 LV 137/3, 21 10:54:04 LV 152/0, 4 10:54:11 LV 139/2, 5 10:55:01 LVp 146/2, 6 10:55:09 AOp 133/-74 (26) 10:55:14 Signed By Rusty Jovel MD On 11/09/2019 11:05:49 Rusty Jovel MD
--- NOTE | 2019-11-09 11:36 | ECHOD_ITS ---
Version 2 Reason For Study: Assess MV Procedure This was a 2D Doppler, Color Flow transthoracic echocardiogram. Echo done with patient sitting mostly upright. Heart Cath done prior to echo. Exam performed in department. Left Ventricle Normal LV size. Mild concentric left ventricular hypertrophy. Left ventricular systolic function is lower limits of normal. The estimated ejection fraction is 50 %. Stage 3 diastolic dysfunction. No regional wall motion abnormalities noted. Right Ventricle Normal RV size. Normal systolic function. Atria The left atrium is moderately enlarged. The right atrium is moderately enlarged. Mitral Valve There is moderate to severe mitral annular calcification. Mild-Moderate (1-2+) eccentric mitral valve insufficiency. Tricuspid Valve Normal tricuspid valve. Mild to moderate (1-2+) tricuspid valve insufficiency. Pulmonary artery systolic pressure is 26 mmHg. Pulmonic Valve Normal pulmonic valve. Great Vessels Normal aortic root. The pulmonary artery is normal size. Pericardium/Pleural Small pericardial effusion. MMode/2D Measurements & Calculations LVIDd: 4.3 cm IVSd: 1.2 cm LA dimension: 4.3 cm LVIDs: 2.9 cm LVPWd: 1.3 cm RVDd: 3.7 cm FS: 33.8 % LAV(MOD-sp4): 120.1 ml LA A4 area: 32.4 cm2 RA A4 area: 29.4 cm2 Time Measurements MV dec time: 0.18 sec Doppler Measurements & Calculations MV E max cas: 121.8 cm/sec MV V2 max: 120.8 cm/sec MV P1/2t max cas: 121.5 cm/sec MV A max cas: 37.0 cm/sec MV max P.8 mmHg MV P1/2t: 89.0 msec MV E/A: 3.3 MV V2 mean: 54.7 cm/sec MV mean P.6 mmHg MV dec slope: 399.9 cm/sec2 MV V2 VTI: 31.9 cm MVA(P1/2t): 2.5 cm2 MR max cas: 522.9 cm/sec PA V2 max: 95.3 cm/sec TR max cas: 236.5 cm/sec MR max P.4 mmHg TR max P.4 mmHg MR mean cas: 425.3 cm/sec MR mean P.2 mmHg MR VTI: 181.7 cm Interpretation Summary Normal LV size. Mild concentric left ventricular hypertrophy. Left ventricular systolic function is lower limits of normal. The estimated ejection fraction is 50 %. The left atrium is moderately enlarged. The right atrium is moderately enlarged. Stage 3 diastolic dysfunction. Pulmonary artery systolic pressure is 26 mmHg. Compared to the previous the pulmonary pressures are better There is moderate to severe mitral annular calcification. Small pericardial effusion. Ordering Physician: Rusty Jovel Referring Physician: Juan Brandt Performed By: Chuy Kinney RCS
== END 2019-11-09 12:58 | disposition home or self-care (01) ==
PROVIDERS: Family Provider Family Medicine; PCP Family Medicine; Referring Provider Internal Medicine Cardiovascular Disease; Visit Provider Internal Medicine Cardiovascular Disease
DX: I25.10 Atherosclerotic heart disease of native coronary artery without angina pectoris (principal); I11.0 Hypertensive heart disease with heart failure; I50.23 Acute on chronic systolic (congestive) heart failure; I48.0 Paroxysmal atrial fibrillation; I27.21 Secondary pulmonary arterial hypertension; I36.1 Nonrheumatic tricuspid (valve) insufficiency; I34.0 Nonrheumatic mitral (valve) insufficiency; J44.9 Chronic obstructive pulmonary disease, unspecified; F17.200 Nicotine dependence, unspecified, uncomplicated; Z99.81 Dependence on supplemental oxygen; Z79.01 Long term (current) use of anticoagulants; Z85.3 Personal history of malignant neoplasm of breast; Z92.21 Personal history of antineoplastic chemotherapy; Z92.3 Personal history of irradiation
CPT/HCPCS: 93005; 93306; 93458; 99152; 99153; J7040; Q9967; C1769; C1894

== ENCOUNTER 2019-11-17 11:00 | Outpatient (RCR) | payer MEDICARE, OTHER, SELFPAY ==
[2019-10-21 01:10] VITALS: BP 140/69; PULSE 98; RESP 16; TEMP 36.7
[2019-10-22 12:23] VITALS: BMI 25.9
[2019-10-22 16:08] LABS: Absolute Lymphocyte Count 0.71 X10^3/uL (0.83-4.51); Absolute Neutrophil Count 3.6 X10^3/uL (2.0-7.7); Basophil# 0.03 X10^3/uL; Basophil% 0.6 % (0-1); Eosinophil# 0.07 X10^3/uL; Eosinophils% 1.4 % (0-5); Hematocrit 38.6 % (37-47); Hemoglobin 12.4 g/dL (12.0-15.0); Lymphocyte # 0.71 X10^3/ul (4.0); Lymphocyte % 14.2 % (19-41); Mean Corp Hgb Conc 32.1 g/dL (32-36); Mean Corpuscular Hgb 30.4 pg (27.0-32.0); Mean Corpuscular Volume 94.6 fL (81-99); Mean Platelet Vol. 8.9 fl (6.2-12.0); Monocyte# 0.56 X10^3/uL; Monocyte% 11.2 % (0-10); NRBC Flagged by Analyzer 0 % (0-5); Neutrophil # 3.62 X10^3/uL (2.7-7.7); Neutrophil % 72.4 % (47-70); Platelet Count 297 K/mm3 (150-450); RBC Distribution Width CV 12.6 % (11.6-14.6); Red Blood Count 4.08 M/mm3 (4.2-5.4)
[2019-10-22 16:26] LABS: Anion Gap 4 (5-15); BUN 6 mg/dL (7-18); BUN/Creat Ratio 12.6 RATIO (10-20); Calcium,Total 9.2 mg/dL (8.5-10.1); Chloride 89 mmol/L (98-107); Creatinine, Serum 0.48 mg/dL (0.55-1.02); EST Glomerular Filtration Rate 136 mL/min (>60); Est Glom Filt Rate - Afr Amer 165 mL/min (>60); Estimated Creatinine Clearance 43.91 ml/min; Glucose 95 mg/dL (74-106); Potassium 4.5 mmol/L (3.5-5.1); Sodium Level 125 mmol/L (136-145)
[2019-10-27 10:51] VITALS: BP 143/62; PULSE 66; RESP 18; TEMP 36.6; BMI 25.9
--- NOTE | 2019-10-27 11:41 | HP.PCM_ITS ---
(1) Bilateral leg ulcer Status: Chronic Current Visit: Yes Qualifiers: Non-pressure ulcer stage: with fat layer exposed Code(s): L97.919 - Non-pressure chronic ulcer of unspecified part of right lower leg with unspecified severity; L97.929 - Non-pressure chronic ulcer of unspecified part of left lower leg with unspecified severity (2) Non-ischemic cardiomyopathy Status: Chronic Current Visit: No Code(s): I42.8 - Other cardiomyopathies (3) Paroxysmal atrial fibrillation Status: Chronic Current Visit: No Code(s): I48.0 - Paroxysmal atrial fibrillation (4) Acute on chronic systolic (congestive) heart failure Status: Chronic Current Visit: No Code(s): I50.23 - Acute on chronic systolic (congestive) heart failure (5) Secondary pulmonary arterial hypertension Status: Chronic Current Visit: No Code(s): I27.21 - Secondary pulmonary arterial hypertension (6) Non-rheumatic tricuspid valve insufficiency Status: Chronic Current Visit: No Code(s): I36.1 - Nonrheumatic tricuspid (valve) insufficiency (7) Nonrheumatic mitral (valve) insufficiency Status: Chronic Current Visit: No Code(s): I34.0 - Nonrheumatic mitral (valve) insufficiency (8) Essential (primary) hypertension Status: Chronic Current Visit: No Code(s): I10 - Essential (primary) hypertension (9) Lung mass Status: Chronic Current Visit: No Code(s): R91.8 - Other nonspecific abnormal finding of lung field (10) History of breast cancer Status: Chronic Current Visit: No Code(s): Z85.3 - Personal history of malignant neoplasm of breast (11) COPD (chronic obstructive pulmonary disease) Status: Chronic Current Visit: No Qualifiers: Code(s): J44.9 - Chronic obstructive pulmonary disease, unspecified (12) Nicotine dependence Status: Chronic Current Visit: No Code(s): F17.200 - Nicotine dependence, unspecified, uncomplicated (13) Chronic anticoagulation Status: Chronic Current Visit: No Code(s): Z79.01 - retirement (current) use of anticoagulants (14) Tobacco abuse Status: Chronic Current Visit: Yes Code(s): Z72.0 - Tobacco use (15) Tobacco abuse counseling Status: Chronic Current Visit: Yes Code(s): Z71.6 - Tobacco abuse counseling (16) Dependent edema Status: Chronic Current Visit: Yes Code(s): R60.9 - Edema, unspecified History of Present Illness Date of Service: 10/27/19 Chief Complaint: Bilateral lower extremity swelling and edema with bilateral lower extremity ulcerations. History of Wound: This is a 73-year-old female who was hospitalized approximately 2 weeks prior to presentation at [facility] in treatment for congestive heart failure and a right pleural effusion. She was treated medically by means of diuretics, and underwent a right thoracentesis for drainage of her pleural effusion. She was noted to have extreme swelling and edema in her lower extremities. [facility] and [facility] relative to the swelling and edema in her lower extremities, which are associated with ulcerations. The patient is debilitated, and relatively immobile. Her ambulatory capacity is extremely limited. She sits throughout the day, and sleeps in a chair in an upright position at night. The swelling and edema in her legs has been present for over 1 month. The ulcerations on her lower extremities are said to have begun as blisters. The patient denies a history of lower extremity thrombophlebitis. She has multiple pre-existing medical problems, as listed below. Past Medical History Past Medical History: Chronic Problems (Last Reviewed 10/22/19 @ 14:50 by Rusty Jovel MD) Tobacco abuse (Chronic) Tobacco abuse counseling (Chronic) Dependent edema (Chronic) Bilateral leg ulcer (Chronic) Non-ischemic cardiomyopathy (Chronic) Paroxysmal atrial fibrillation (Chronic) Acute on chronic systolic (congestive) heart failure (Chronic) Secondary pulmonary arterial hypertension (Chronic) Non-rheumatic tricuspid valve insufficiency (Chronic) Nonrheumatic mitral (valve) insufficiency (Chronic) Essential (primary) hypertension (Chronic) Lung mass (Chronic) History of breast cancer (Chronic) COPD (chronic obstructive pulmonary disease) (Chronic) Nicotine dependence (Chronic) Chronic anticoagulation (Chronic) Surgical History: mastectomy, - - The patient has previously undergone a left mastectomy, right breast lumpectomy, and resection of a left pulmonary nodule. She also has undergone tubal ligation. She is a Ab0. Allergies/Adverse Reactions: Allergies albuterol sulfate [From Combivent] Allergy (Verified 10/22/19 12:24) Swelling ipratropium bromide [From Combivent] Allergy (Verified 10/22/19 12:24) Swelling metoprolol Allergy (Verified 10/22/19 12:24) Laryngospasms Sulfa (Sulfonamide Antibiotics) Allergy (Verified 10/22/19 12:24) Rash beclomethasone [From Qvar] Adverse Reaction (Verified 10/22/19 12:24) COUGHING benzalkonium chloride [From Merthiolate (benzalkonium)] Adverse Reaction (Verified 10/22/19 12:24) Other codeine Adverse Reaction (Verified 10/22/19 12:24) doesn't remember doxycycline Adverse Reaction (Verified 10/22/19 12:24) Abd cramps/diarrhea formoterol fumarate [From Dulera] Adverse Reaction (Verified 10/22/19 12:24) Other hydrochlorothiazide Adverse Reaction (Verified 10/22/19 12:24) Other ibuprofen [From Advil] Adverse Reaction (Verified 10/22/19 12:24) Other iodine Adverse Reaction (Verified 10/22/19 12:24) Itching merbromin Adverse Reaction (Verified 10/22/19 12:24) Other mometasone furoate [From Dulera] Adverse Reaction (Verified 10/22/19 12:24) Other oseltamivir [From Tamiflu] Adverse Reaction (Verified 10/22/19 12:24) uterine pain prednisone Adverse Reaction (Verified 10/22/19 12:24) Abd cramps/diarrhea PLASTIC TAPE Allergy (Uncoded 10/22/19 12:24) Rash Home Medications: Ambulatory Orders Medication Instructions Recorded Albuterol Inhaler [Ventolin Hfa] 1 - 2 puff INHALATION Q4H PRN PRN 10/16/16 carvedilol 25 mg tablet 25 mg PO BID #180 tab 02/02/19 rivaroxaban 20 mg tablet 20 mg PO DINNER #30 tab 02/02/19 fluticasone propionate 230 2 puff INHALATION BID #1 device 04/08/19 mcg-salmeterol 21 mcg/actuation HFA inhaler furosemide 40 mg tablet 40 mg PO BID #120 tab 07/23/19 potassium chloride 20 mEq 20 meq PO DAILY #90 tab 07/23/19 tablet,extended release Multivit-Min/Iron/Folic/Lutein 1 tab PO DAILY 10/05/19 [Centrum Silver Women Tablet] Tiotropium [place] [Spiriva 2 puff INHALATION BID 12/16/19 Respimat] Spironolactone [Aldactone] 25 mg PO DAILY #60 tab 10/08/19 Handicap Placard #1 ea 10/22/19 quinapril 20 mg tablet 20 mg PO BID #180 tab 10/22/19 - Family History Maternal Family History: Family History (Last Reviewed 10/22/19 @ 14:50 by Rusty Jovel MD) Father Emphysema of lung Sister Cancer No pertinent history Paternal Family History: Family History (Last Reviewed 10/22/19 @ 14:50 by Rusty Jovel MD) Father Emphysema of lung Sister Cancer No pertinent history Smoking Status: Current some day smoker Tobacco Use: Cigarettes Review of Systems Constitutional: Denies: Chills, Fever, Weight Change Eyes: Denies: Pain, Vision Change HEENT: Denies: Difficulty Hearing, Difficulty Swallowing, Sinus Congestion Cardiovascular: Denies: Chest Pain, Palpitations Respiratory: Denies: Cough, Shortness of Breath Gastrointestinal: Denies: Diarrhea, Nausea, Vomiting Genitourinary: Denies: Dysuria, Hematuria Endocrine: Denies: Heat/ Cold Intolerance, Polydipsia, Polyuria Hematologic/ Lymphatic: Denies: Easy Bruising, Easy Bleeding - Physical Exam Vital Signs Temp Pulse Resp BP 98 F 66 18 143/62 H 10/27/19 10:51 10/27/19 10:51 10/27/19 10:51 10/27/19 10:51 General: Alert, Oriented x3, Cooperative, No apparent distress, Well developed, Well nourished HEENT: Atraumatic, PERRLA, EOMI, Normocephalic Oral: Moist Mucosa Neck: No JVD Lungs: Normal air movement Abdomen: Non-Distended Extremities: No clubbing, No cyanosis, No Calf Tenderness, - - Swelling and edema are noted bilaterally in the lower extremities. Rather diffuse and large ulceration is noted on the right calf. Several very small superficial ulcerations are noted on the left calf. Dimensions are documented elsewhere. There is no sign of infection or cellulitis. Wound Measurements and Assessment WC - Nurse 1 - General Ulcer Measurement Start: 10/27/19 10:49 Freq: Status: Active Protocol: Activity Type Activity Date Activity User E-Sign Co-Sign Detail Recorded Client Recorded Date Recorded By Document 10/27/19 10:51 [facility] [id number] 10/27/19 11:06 BMF 10/27/19 10:51 [facility] Nurse 1 [Ulcer Assessment] #3 L MED LE -Combined with other wound No -Current Size (cm) - Length 0.1 -Current Size (cm) - Width 0.1 -Current Size (cm) - Depth 0.1 -Total Square Cm 0.01 -Photo Taken No -Epithelialization Large 67-100% -Tunneling No -Undermining/Tunneling No -Circular Undermining No -Exudate Amt None Present -Granulation Amt Small (1-33%) -Granulation Quality [place] -Texture (Yesenia-wound Skin Appearance) Assessed, Scarring -Moisture (Yesenia-wound Skin Appearance Assessed, ) Weeping -Color (Yesenia-wound Skin Appearance) Assessed -Temperature (Yesenia-wound Skin No Abnormality Appearance) (Pt Warm) -Tenderness on Palpation (Yesenia-wound No Skin Appearance) -Ulcer Cleansing soapy water -Foul Odor after Cleansing No -Anesthetic Used 4% Lidocaine Solution #2 L LAT LE -Combined with other wound No -Current Size (cm) - Length 0.3 -Current Size (cm) - Width 0.2 -Current Size (cm) - Depth 0.1 -Total Square Cm 0.06 -Photo Taken No -Epithelialization Small 1-33% -Tunneling No -Undermining/Tunneling No -Circular Undermining No -Exudate Amt Small -Exudate Type Serous -Wound Margin Flat & Intact -Granulation Amt Small (1-33%) -Granulation Quality Red -Slough/Fibrin Yes -Necrosis Amt Small (1-33%) -Necrotic Tissue Type Adherent Slough -Texture (Yesenia-wound Skin Appearance) Assessed -Moisture (Yesenia-wound Skin Appearance Assessed, ) Weeping -Color (Yesenia-wound Skin Appearance) Assessed -Temperature (Yesenia-wound Skin No Abnormality Appearance) (Pt Warm) -Tenderness on Palpation (Yesenia-wound No Skin Appearance) -Ulcer Cleansing soapy water -Foul Odor after Cleansing No -Anesthetic Used 4% Lidocaine Solution #1 r cALF -Combined with other wound No -Current Size (cm) - Length 14.5 -Current Size (cm) - Width 6.1 -Current Size (cm) - Depth 0.2 -Total Square Cm 88.45 -Photo Taken No -Epithelialization Small 1-33% -Tunneling No -Undermining/Tunneling No -Circular Undermining No -Exudate Amt Small -Exudate Type Serosanguineous -Wound Margin Distinct, Outline Attached -Granulation Amt Small (1-33%) -Granulation Quality Red -Slough/Fibrin Yes -Necrosis Amt Large (67-100%) -Necrotic Tissue Type Adherent Slough -Texture (Yesenia-wound Skin Appearance) Assessed, Scarring -Moisture (Yesenia-wound Skin Appearance Assessed ) -Color (Yesenia-wound Skin Appearance) Assessed, Erythema -Temperature (Yesenia-wound Skin No Abnormality Appearance) (Pt Warm) -Tenderness on Palpation (Yesenia-wound Yes Skin Appearance) -Ulcer Cleansing soapy water -Foul Odor after Cleansing No -Anesthetic Used 4% Lidocaine Solution [Edema Assessment] -Lower Limb Edema Present Yes -Right Calf (cm) 43.2 -Right Ankle (cm) 23.3 -Left Calf (cm) 42.3 -Left Ankle (cm) 20.8 Neurological: Cranial nerves II-XII grossly intact, Neuro grossly intact Psych/Mental Status: Normal Affect, Appropriate, Alert and oriented to time, place, person, mood and affect Debridement Note Laterality: Right - Lateral calf Type of Debridement: Excisional debridement Anesthesia Used: 5% Lidocaine Gel Depth: Down to and including healthy tissue, in the subcutaneous layer Percentage of wound debrided: 100 Instrument Used: 5mm curette Tissue Removed: Bioburden and nonviable tissue Severity: Fat Layer Exposed Amount of bleeding with debridement: Mild Bleeding Controlled with: Compression and gauze Patient tolerated procedure well Assessment/Plan Active Problems (Last Reviewed 10/22/19 @ 14:50 by Rusty Jovel MD) Tobacco abuse (Chronic) Tobacco abuse counseling (Chronic) Dependent edema (Chronic) Bilateral leg ulcer (Chronic) Assessment: This is a 73-year-old female who presented with severe swelling, edema, and ulcerations in her lower extremities. She has also noted drainage from her ulcerations as well. She has recently been treated as an inpatient at [facility] for congestive heart failure and a right pleural effusion. It has been ascertained that the patient is relatively immobile. She sits for long hours each day. Due to her pre-existing medical problems, she also sleeps in a chair, sitting in an upright position. Thus, it appears as though the swelling and edema in her lower extremities is largely related to dependency and a lack of activity. She has recently undergone diagnostic studies, the results of which are as follows: White blood count 4.1, hemoglobin 11.9, hematocrit 36.4, platelets 184,000, Plan: A lengthy discussion has been undertaken with the patient and her , who was at the bedside. The importance of leg elevation has been strongly stressed. Patient has been encouraged to elevate her lower extremities much as possible. She resolutely states that she is unable to lay on a flat mattress. Therefore, she has been encouraged to elevate her lower extremities as much as possible while in her recliner. It has been stressed that the patient should position her legs to the same level as her heart, or higher. This should be accomplished as much as possible. Activity has been encouraged. Prolonged idle sitting has been discouraged. We are to continue modest compression initially by means of [place] wraps, though it is anticipated that this will be increased subsequent to the performance of a noninvasive lower extremity arterial study. A noninvasive lower extremity arterial study will be obtained to assess the arterial status in the patient's lower extremities. The noninvasive lower extremity arterial study has not yet been performed, but attempts will be made to expedite this diagnostic study. A venous duplex examination will also be obtained. We are to continue the use of Aquacel Extra topically to the ulcerations on her lower extremities. This will be applied on a daily basis. The patient has been instructed in the appropriate means of application. Patient is to return in 1 week for reassessment. It is expected that the degree of compression will be enhanced, unless contraindicated by findings of her noninvasive lower extremity arterial study. Ultimately, mechanical pneumatic compression pumps may be of some benefit as well. Certainly, these measures will be implemented in staged fashion, given the patient's recent treatment for congestive heart failure. Nutritional optimization has been encouraged. Patient is to return in 1 week for reassessment. Influenza vaccine was not adm inistered. The patient is a smoker, and has been advised to quit. Hazards of smoking have been explained. The patient weighs 148 pounds. She stands 5 feet 4 inches tall. Her BMI is 25.4, which places her in the overweight category. Weight optimization has been recommended.
--- NOTE | 2019-10-27 12:44 | HP.PCM_ITS ---
(1) Bilateral leg ulcer Status: Chronic Current Visit: Yes Qualifiers: Non-pressure ulcer stage: with fat layer exposed Code(s): L97.919 - Non-pressure chronic ulcer of unspecified part of right lower leg with unspecified severity; L97.929 - Non-pressure chronic ulcer of unspecified part of left lower leg with unspecified severity (2) Non-ischemic cardiomyopathy Status: Chronic Current Visit: No Code(s): I42.8 - Other cardiomyopathies (3) Paroxysmal atrial fibrillation Status: Chronic Current Visit: No Code(s): I48.0 - Paroxysmal atrial fibrillation (4) Acute on chronic systolic (congestive) heart failure Status: Chronic Current Visit: No Code(s): I50.23 - Acute on chronic systolic (congestive) heart failure (5) Secondary pulmonary arterial hypertension Status: Chronic Current Visit: No Code(s): I27.21 - Secondary pulmonary arterial hypertension (6) Non-rheumatic tricuspid valve insufficiency Status: Chronic Current Visit: No Code(s): I36.1 - Nonrheumatic tricuspid (valve) insufficiency (7) Nonrheumatic mitral (valve) insufficiency Status: Chronic Current Visit: No Code(s): I34.0 - Nonrheumatic mitral (valve) insufficiency (8) Essential (primary) hypertension Status: Chronic Current Visit: No Code(s): I10 - Essential (primary) hypertension (9) Lung mass Status: Chronic Current Visit: No Code(s): R91.8 - Other nonspecific abnormal finding of lung field (10) History of breast cancer Status: Chronic Current Visit: No Code(s): Z85.3 - Personal history of malignant neoplasm of breast (11) COPD (chronic obstructive pulmonary disease) Status: Chronic Current Visit: No Qualifiers: Code(s): J44.9 - Chronic obstructive pulmonary disease, unspecified (12) Nicotine dependence Status: Chronic Current Visit: No Code(s): F17.200 - Nicotine dependence, unspecified, uncomplicated (13) Chronic anticoagulation Status: Chronic Current Visit: No Code(s): Z79.01 - correction (current) use of anticoagulants (14) Tobacco abuse Status: Chronic Current Visit: Yes Code(s): Z72.0 - Tobacco use (15) Tobacco abuse counseling Status: Chronic Current Visit: Yes Code(s): Z71.6 - Tobacco abuse counseling (16) Dependent edema Status: Chronic Current Visit: Yes Code(s): R60.9 - Edema, unspecified History of Present Illness Date of Service: 10/27/19 Chief Complaint: Bilateral lower extremity swelling and edema with bilateral lower extremity ulcerations. History of Wound: This is a 73-year-old female who was hospitalized approximately 2 weeks prior to presentation at [facility] in treatment for congestive heart failure and a right pleural effusion. She was treated medically by means of diuretics, and underwent a right thoracentesis for drainage of her pleural effusion. She was noted to have extreme swelling and edema in her lower extremities. [facility] relative to the swelling and edema in her lower extremities, which are associated with ulcerations. The patient is debilitated, and relatively immobile. Her ambulatory capacity is extremely limited. She sits throughout the day, and sleeps in a chair in an upright position at night. The swelling and edema in her legs has been present for over 1 month. The ulcerations on her lower extremities are said to have begun as blisters. The patient denies a history of lower extremity thrombophlebitis. She has multiple pre-existing medical problems, as listed below. Past Medical History Past Medical History: Chronic Problems (Last Reviewed 10/22/19 @ 14:50 by Rusty Jovel MD) Tobacco abuse (Chronic) Tobacco abuse counseling (Chronic) Dependent edema (Chronic) Bilateral leg ulcer (Chronic) Non-ischemic cardiomyopathy (Chronic) Paroxysmal atrial fibrillation (Chronic) Acute on chronic systolic (congestive) heart failure (Chronic) Secondary pulmonary arterial hypertension (Chronic) Non-rheumatic tricuspid valve insufficiency (Chronic) Nonrheumatic mitral (valve) insufficiency (Chronic) Essential (primary) hypertension (Chronic) Lung mass (Chronic) History of breast cancer (Chronic) COPD (chronic obstructive pulmonary disease) (Chronic) Nicotine dependence (Chronic) Chronic anticoagulation (Chronic) Surgical History: mastectomy, - - The patient has previously undergone a left mastectomy, right breast lumpectomy, and resection of a left pulmonary nodule. She also has undergone tubal ligation. She is a Ab0. Allergies/Adverse Reactions: Allergies albuterol sulfate [From Combivent] Allergy (Verified 10/22/19 12:24) Swelling ipratropium bromide [From Combivent] Allergy (Verified 10/22/19 12:24) Swelling metoprolol Allergy (Verified 10/22/19 12:24) Laryngospasms Sulfa (Sulfonamide Antibiotics) Allergy (Verified 10/22/19 12:24) Rash beclomethasone [From Qvar] Adverse Reaction (Verified 10/22/19 12:24) COUGHING benzalkonium chloride [From Merthiolate (benzalkonium)] Adverse Reaction (Verified 10/22/19 12:24) Other codeine Adverse Reaction (Verified 10/22/19 12:24) doesn't remember doxycycline Adverse Reaction (Verified 10/22/19 12:24) Abd cramps/diarrhea formoterol fumarate [From Dulera] Adverse Reaction (Verified 10/22/19 12:24) Other hydrochlorothiazide Adverse Reaction (Verified 10/22/19 12:24) Other ibuprofen [From Advil] Adverse Reaction (Verified 10/22/19 12:24) Other iodine Adverse Reaction (Verified 10/22/19 12:24) Itching merbromin Adverse Reaction (Verified 10/22/19 12:24) Other mometasone furoate [From Dulera] Adverse Reaction (Verified 10/22/19 12:24) Other oseltamivir [From Tamiflu] Adverse Reaction (Verified 10/22/19 12:24) uterine pain prednisone Adverse Reaction (Verified 10/22/19 12:24) Abd cramps/diarrhea PLASTIC TAPE Allergy (Uncoded 10/22/19 12:24) Rash Home Medications: Ambulatory Orders Medication Instructions Recorded Albuterol Inhaler [Ventolin Hfa] 1 - 2 puff INHALATION Q4H PRN PRN 10/16/16 carvedilol 25 mg tablet 25 mg PO BID #180 tab 02/02/19 rivaroxaban 20 mg tablet 20 mg PO DINNER #30 tab 02/02/19 fluticasone propionate 230 2 puff INHALATION BID #1 device 04/08/19 mcg-salmeterol 21 mcg/actuation HFA inhaler furosemide 40 mg tablet 40 mg PO BID #120 tab 07/23/19 potassium chloride 20 mEq 20 meq PO DAILY #90 tab 07/23/19 tablet,extended release Multivit-Min/Iron/Folic/Lutein 1 tab PO DAILY 10/05/19 [Centrum Silver Women Tablet] Tiotropium [place] [Spiriva 2 puff INHALATION BID 12/16/19 Respimat] Spironolactone [Aldactone] 25 mg PO DAILY #60 tab 10/08/19 Handicap Placard #1 ea 10/22/19 quinapril 20 mg tablet 20 mg PO BID #180 tab 10/22/19 - Family History Maternal Family History: Family History (Last Reviewed 10/22/19 @ 14:50 by Rusty Jovel MD) Father Emphysema of lung Sister Cancer No pertinent history Paternal Family History: Family History (Last Reviewed 10/22/19 @ 14:50 by Rusty Jovel MD) Father Emphysema of lung Sister Cancer No pertinent history Smoking Status: Current some day smoker Tobacco Use: Cigarettes - Physical Exam Vital Signs Temp Pulse Resp BP 98 F 66 18 143/62 H 10/27/19 10:51 10/27/19 10:51 10/27/19 10:51 10/27/19 10:51 Wound Measurements and Assessment WC - Nurse 1 - General Ulcer Measurement Start: 10/27/19 10:49 Freq: Status: Active Protocol: Activity Type Activity Date Activity User E-Sign Co-Sign Detail Recorded Client Recorded Date Recorded By Document 10/27/19 10:51 [facility] [id number] 10/27/19 11:06 [facility] 10/27/19 10:51 Wound Center Nurse 1 [Ulcer Assessment] #3 L MED LE -Combined with other wound No -Current Size (cm) - Length 0.1 -Current Size (cm) - Width 0.1 -Current Size (cm) - Depth 0.1 -Total Square Cm 0.01 -Photo Taken No -Epithelialization Large 67-100% -Tunneling No -Undermining/Tunneling No -Circular Undermining No -Exudate Amt None Present -Granulation Amt Small (1-33%) -Granulation Quality [place] -Texture (Yesenia-wound Skin Appearance) Assessed, Scarring -Moisture (Yesenia-wound Skin Appearance Assessed, ) Weeping -Color (Yesenia-wound Skin Appearance) Assessed -Temperature ([place]-wound Skin No Abnormality Appearance) (Pt Warm) -Tenderness on Palpation (Yesenia-wound No Skin Appearance) -Ulcer Cleansing soapy water -Foul Odor after Cleansing No -Anesthetic Used 4% Lidocaine Solution #2 L LAT LE -Combined with other wound No -Current Size (cm) - Length 0.3 -Current Size (cm) - Width 0.2 -Current Size (cm) - Depth 0.1 -Total Square Cm 0.06 -Photo Taken No -Epithelialization Small 1-33% -Tunneling No -Undermining/Tunneling No -Circular Undermining No -Exudate Amt Small -Exudate Type Serous -Wound Margin Flat & Intact -Granulation Amt Small (1-33%) -Granulation Quality Red -Slough/Fibrin Yes -Necrosis Amt Small (1-33%) -Necrotic Tissue Type Adherent Slough -Texture ([place]-wound Skin Appearance) Assessed -Moisture (Yes[place]-wound Skin Appearance Assessed, ) Weeping -Color ([place]-wound Skin Appearance) Assessed -Temperature ([place]-wound Skin No Abnormality Appearance) (Pt Warm) -Tenderness on Palpation ([place]-wound No Skin Appearance) -Ulcer Cleansing soapy water -Foul Odor after Cleansing No -Anesthetic Used 4% Lidocaine Solution #1 Lateral RLE -Combined with other wound No -Current Size (cm) - Length 14.5 -Current Size (cm) - Width 6.1 -Current Size (cm) - Depth 0.2 -Total Square Cm 88.45 -Photo Taken No -Epithelialization Small 1-33% -Tunneling No -Undermining/Tunneling No -Circular Undermining No -Exudate Amt Small -Exudate Type Serosanguineous -Wound Margin Distinct, Outline Attached -Granulation Amt Small (1-33%) -Granulation Quality Red -Slough/Fibrin Yes -Necrosis Amt Large (67-100%) -Necrotic Tissue Type Adherent Slough -Texture ([place]-wound Skin Appearance) Assessed, Scarring -Moisture ([place]-wound Skin Appearance Assessed ) -Color (Yesenia-wound Skin Appearance) Assessed, Erythema -Temperature ([place]-wound Skin No Abnormality Appearance) (Pt Warm) -Tenderness on Palpation (Yesenia-wound Yes Skin Appearance) -Ulcer Cleansing soapy water -Foul Odor after Cleansing No -Anesthetic Used 4% Lidocaine Solution [Edema Assessment] -Lower Limb Edema Present Yes -Right Calf (cm) 43.2 -Right Ankle (cm) 23.3 -Left Calf (cm) 42.3 -Left Ankle (cm) 20.8 WC - Nurse 2 - General Ulcer CM Notes Start: 10/27/19 10:49 Freq: Status: Active Protocol: Activity Type Activity Date Activity User E-Sign Co-Sign Detail Recorded Client Recorded Date Recorded By Document 10/27/19 11:43 DV [id number] 10/27/19 11:46 DV 10/27/19 11:43 Wound Center Nurse 2 [Procedure/Treatment] #3 L MED LE -Time 11:43 -Correct Patient Yes -Correct Side, Site, Position Yes -Correct Procedure No -Procedure Performed No -Wound/Ulcer Outcome Not Healed #2 L LAT LE -Time 11:44 -Correct Patient Yes -Correct Side, Site, Position Yes -Correct Procedure No -Procedure Performed No -Wound/Ulcer Outcome Not Healed #1 Lateral RLE -Time 11:45 -Correct Patient Yes -Correct Side, Site, Position Yes -Correct Procedure Yes -Procedure Performed Yes -Type of Procedure Debridement -Clinical Debridement Subcutaneous -Post Debridement Size (cm) - Length 15.0 -Post Debridement Size (cm) - Width 7.0 -Post Debridement Size (cm) - Depth 0.2 -Total Square Cm 105.00 -Wound/Ulcer Outcome Not Healed -Ulcer Cleansing Rinsed/ Irrigated with Saline -Foul Odor after Cleansing No -Bioengineered Tissue No -Bleeding Controlled with Pressure -Offloading No -Treatment Response Procedure Tolerated Well [See Physician Procedure note for Specifics] Pain Scale: 0-10 Numeric [Pain] -Is Patient Pain Free? Yes Debridement Note Post-Debridement Measurements/Treatment WC - Nurse 2 - General Ulcer CM Notes Start: 10/27/19 10:49 Freq: Status: Active Protocol: Activity Type Activity Date Activity User E-Sign Co-Sign Detail Recorded Client Recorded Date Recorded By Document 10/27/19 11:43 DV [id number] 10/27/19 11:46 DV 10/27/19 11:43 Wound Center Nurse 2 #3 L MED LE -Time 11:43 -Correct Patient Yes -Correct Side, Site, Position Yes -Correct Procedure No -Procedure Performed No -Wound/Ulcer Outcome Not Healed #2 L LAT LE -Time 11:44 -Correct Patient Yes -Correct Side, Site, Position Yes -Correct Procedure No -Procedure Performed No -Wound/Ulcer Outcome Not Healed #1 Lateral RLE -Time 11:45 -Correct Patient Yes -Correct Side, Site, Position Yes -Correct Procedure Yes -Procedure Performed Yes -Type of Procedure Debridement -Clinical Debridement Subcutaneous -Post Debridement Size (cm) - Length 15.0 -Post Debridement Size (cm) - Width 7.0 -Post Debridement Size (cm) - Depth 0.2 -Total Square Cm 105.00 -Wound/Ulcer Outcome Not Healed -Ulcer Cleansing Rinsed/ Irrigated with Saline -Foul Odor after Cleansing No -Bioengineered Tissue No -Bleeding Controlled with Pressure -Offloading No -Treatment Response Procedure Tolerated Well Pain Scale: 0-10 Numeric Is Patient Pain Free? Yes Assessment/Plan Active Problems (Last Reviewed 10/22/19 @ 14:50 by Rusty Jovel MD) Tobacco abuse (Chronic) Tobacco abuse counseling (Chronic) Dependent edema (Chronic) Bilateral leg ulcer (Chronic) Assessment: This is a 73-year-old female who presented with severe swelling, edema, and ulcerations in her lower extremities. She has also noted drainage from her ulcerations as well. She has recently been treated as an inpatient at [facility] for congestive heart failure and a right pleural effusion. It has been ascertained that the patient is relatively immobile. She sits for long hours each day. Due to her pre-existing medical problems, she also sleeps in a chair, sitting in an upright position. Thus, it appears as though the swelling and edema in her lower extremities is largely related to dependency and a lack of activity. She has recently undergone diagnostic studies on October 22, 2019, the results of which are as follows: White blood co unt 5.0, hemoglobin 12.4, hematocrit 38.6, platelets 297,000, glucose 95, BUN 6, creatinine 0.48, sodium 125, potassium 4.5, chloride 89. Plan: A lengthy discussion has been undertaken with the patient and her , who was at the bedside. The importance of leg elevation has been strongly stressed. Patient has been encouraged to elevate her lower extremities much as possible. She resolutely states that she is unable to lay on a flat mattress. Therefore, she has been encouraged to elevate her lower extremities as much as possible while in her recliner. It has been stressed that the patient should position her legs to the same level as her heart, or higher. This should be accomplished as much as possible. Activity has been encouraged. Prolonged idle sitting has been discouraged. We are to continue modest compression initially by means of Douglas wraps, though it is anticipated that this will be increased subsequent to the performance of a noninvasive lower extremity arterial study. A noninvasive lower extremity arterial study will be obtained to assess the arterial status in the patient's lower extremities. The noninvasive lower extremity arterial study has not yet been performed, but attempts will be made to expedite this diagnostic study. A venous duplex examination will also be obtained. We are to continue the use of Aquacel Extra topically to the ulcerations on her lower extremities. This will be applied on a daily basis. The patient has been instructed in the appropriate means of application. Patient is to return in 1 week for reassessment. It is expected that the degree of compression will be enhanced, unless contraindicated by findings of her noninvasive lower extremity arterial study. Ultimately, mechanical pneumatic compression pumps may be of some benefit as well. Certainly, these measures will be implemented in staged fashion, given the patient's recent treatment for congestive heart failure. Nutritional optimization has been encouraged. Patient is to return in 1 week for reassessment. Influenza vaccine was not administered. The patient is a smoker, and has been advised to quit. Hazards of smoking have been explained. The patient weighs 148 pounds. She stands 5 feet 4 inches tall. Her BMI is 25.4, which places her in the overweight category. Weight optimization has been recommended.
--- NOTE | 2019-11-03 09:51 | VDLE_ITS ---
Reason For Study: Leg ulcer RIGHT LEFT CFV is compressible, spontaneous, phasic, CFV is compressible, spontaneous, phasic, competent and demonstrates normal competent, and demonstrates normal augmentation. augmentation. FV is compressible, spontaneous, phasic, FV is compressible, spontaneous, phasic, competent and demonstrates normal competent and demonstrates normal augmentation. augmentation. POP V is compressible, spontaneous, phasic, POP V is compressible, spontaneous, phasic, competent and demonstrates normal competent and demonstrates normal augmentation. augmentation. T/P Trunk is compressible. T/P Trunk is compressible. PTV is compressible. PTV is compressible. RT PerV is compressible. LT PerV is compressible. SFJ is competent and measures 0.78 x 0.86 cm. SFJ is competent and measures 0.66 x 0.75 cm. GSV proximal thigh measures 0.33 x 0.34 cm. GSV proximal thigh measures 0.35 x 0.38 cm. GSV above knee is competent. GSV at knee measures 0.28 x 0.30 cm. GSV at knee measures 0.29 x 0.30 cm. GSV is competent throughout. GSV below knee is INCOMPETENT for greater SSV at junction is competent and measures than 0.5 seconds. 0.40 x 0.36 cm. SSV at junction is competent and measures 0.24 x 0.23 cm. Procedure Exam performed in department. A preliminary report was called and/or faxed to . Interpretation Summary Deep veins of the lower extremities are bilaterally patent and compressible segmentally. There is no evidence of deep vein thrombosis on either side. Valvular competence appears intact within the proximal deep venous systems bilaterally. The great saphenous veins appear bilaterally patent and compressible segmentally. Sapheno-femoral junctions are bilaterally competent . The right great saphenous vein appears competent above the knee. The right great saphenous vein appears incompetent below the knee. The left great saphenous vein appears segmentally competent. Small saphenous veins are patent and competent bilaterally. Ordering Physician: Franco Mckinley Referring Physician: Juan Brandt Performed By: Maylin Cheung RVT
--- NOTE | 2019-11-03 09:57 | ART_ITS ---
Reason For Study: PVD Procedure A bilateral lower extremity continuous wave Doppler with analog waveform analysis,segmental pressures,and ankle brachial indexes without exercise. Left Segmental Pressures Left brachial= 145mmHg. Left posterior tibial artery = 164mmHg. Left dorsalis pedis artery = 160mmHg. Left digit = 139 mmHg. The left dorsalis pedis waveforms are triphasic. The left posterior tibial artery waveforms are triphasic. Right Segmental Pressures Right brachial= 141mmHg. Right posterior tibial artery = 176mmHg. Right dorsalis pedis artery = 154mmHg. Right digit = 116 mmHg. The right dorsalis pedis waveforms are triphasic. The right posterior tibial artery waveforms are triphasic. Indices The right ankle brachial index by the dorsalis pedis is 1.06. The right ankle brachial index by the posterior tibial artery is 1.21. The right digital-brachial index is 0.80. The left ankle brachial index by the dorsalis pedis is 1.10. The left ankle brachial index by the posterior tibial artery is 1.13. The left digital-brachial index is 0.96. Interpretation Summary Triphasic Doppler waveforms are noted at ankle level bilaterally. Pulse-volume recordings appear satisfactory bilaterally. Resting ankle-brachial indices are normal bilaterally. Digital-brachial indices are normal bilaterally. There is no evidence of significant arterial occlusive disease in the lower extremities bilaterally. Ordering Physician: Franco Mckinley Referring Physician: Juan Brandt Performed By: Maylin Cheung RVT
[2019-11-03 11:24] VITALS: BP 143/65; PULSE 74; RESP 18; TEMP 36.3; BMI 25.9
--- NOTE | 2019-11-03 11:53 | HP.PCM_ITS ---
(1) Bilateral leg ulcer Status: Chronic Current Visit: Yes Qualifiers: Non-pressure ulcer stage: with fat layer exposed Code(s): L97.919 - Non-pressure chronic ulcer of unspecified part of right lower leg with unspecified severity; L97.929 - Non-pressure chronic ulcer of unspecified part of left lower leg with unspecified severity (2) Non-ischemic cardiomyopathy Status: Chronic Current Visit: No Code(s): I42.8 - Other cardiomyopathies (3) Paroxysmal atrial fibrillation Status: Chronic Current Visit: No Code(s): I48.0 - Paroxysmal atrial fibrillation (4) Acute on chronic systolic (congestive) heart failure Status: Chronic Current Visit: No Code(s): I50.23 - Acute on chronic systolic (congestive) heart failure (5) Secondary pulmonary arterial hypertension Status: Chronic Current Visit: No Code(s): I27.21 - Secondary pulmonary arterial hypertension (6) Non-rheumatic tricuspid valve insufficiency Status: Chronic Current Visit: No Code(s): I36.1 - Nonrheumatic tricuspid (valve) insufficiency (7) Nonrheumatic mitral (valve) insufficiency Status: Chronic Current Visit: No Code(s): I34.0 - Nonrheumatic mitral (valve) insufficiency (8) Essential (primary) hypertension Status: Chronic Current Visit: No Code(s): I10 - Essential (primary) hypertension (9) Lung mass Status: Chronic Current Visit: No Code(s): R91.8 - Other nonspecific abnormal finding of lung field (10) History of breast cancer Status: Chronic Current Visit: No Code(s): Z85.3 - Personal history of malignant neoplasm of breast (11) COPD (chronic obstructive pulmonary disease) Status: Chronic Current Visit: No Qualifiers: Code(s): J44.9 - Chronic obstructive pulmonary disease, unspecified (12) Nicotine dependence Status: Chronic Current Visit: No Code(s): F17.200 - Nicotine dependence, unspecified, uncomplicated (13) Chronic anticoagulation Status: Chronic Current Visit: No Code(s): Z79.01 - shelter (current) use of anticoagulants (14) Tobacco abuse Status: Chronic Current Visit: Yes Code(s): Z72.0 - Tobacco use (15) Tobacco abuse counseling Status: Chronic Current Visit: Yes Code(s): Z71.6 - Tobacco abuse counseling (16) Dependent edema Status: Chronic Current Visit: Yes Code(s): R60.9 - Edema, unspecified History of Present Illness Date of Service: 11/03/19 Chief Complaint: Bilateral lower extremity swelling and edema with bilateral lower extremity ulcerations. History of Wound: This is a 73-year-old female who was hospitalized approximately 2 weeks prior to presentation at [facility] in treatment for congestive heart failure and a right pleural effusion. She was treated medically by means of diuretics, and underwent a right thoracentesis for drainage of her pleural effusion. She was noted to have extreme swelling and edema in her lower extremities. [facility] and management relative to the swelling and edema in her lower extremities, which are associated with ulcerations. The patient is debilitated, and relatively immobile. Her ambulatory capacity is extremely limited. She sits throughout the day, and sleeps in a chair in an upright position at night. The swelling and edema in her legs has been present for over 1 month. The ulcerations on her lower extremities are said to have begun as blisters. The patient denies a history of lower extremity thrombophlebitis. She has multiple pre-existing medical problems, as listed below. Past Medical History Past Medical History: Chronic Problems (Last Reviewed 10/29/19 @ 10:43 by RAFAEL Conner) Tobacco abuse (Chronic) Tobacco abuse counseling (Chronic) Dependent edema (Chronic) Bilateral leg ulcer (Chronic) Non-ischemic cardiomyopathy (Chronic) Paroxysmal atrial fibrillation (Chronic) Acute on chronic systolic (congestive) heart failure (Chronic) Secondary pulmonary arterial hypertension (Chronic) Non-rheumatic tricuspid valve insufficiency (Chronic) Nonrheumatic mitral (valve) insufficiency (Chronic) Essential (primary) hypertension (Chronic) Lung mass (Chronic) History of breast cancer (Chronic) COPD (chronic obstructive pulmonary disease) (Chronic) Nicotine dependence (Chronic) Chronic anticoagulation (Chronic) Surgical History: mastectomy, - - The patient has previously undergone a left mastectomy, right breast lumpectomy, and resection of a left pulmonary nodule. She also has undergone tubal ligation. She is a Ab0. Allergies/Adverse Reactions: Allergies albuterol sulfate [From Combivent] Allergy (Verified 10/29/19 10:26) Swelling ipratropium bromide [From Combivent] Allergy (Verified 10/29/19 10:26) Swelling metoprolol Allergy (Verified 10/29/19 10:) Laryngospasms Sulfa (Sulfonamide Antibiotics) Allergy (Verified 10/29/19 10:) Rash beclomethasone [From Qvar] Adverse Reaction (Verified 10/29/19 10:) COUGHING benzalkonium chloride [From Merthiolate (benzalkonium)] Adverse Reaction (Verified 10/29/19 10:) Other codeine Adverse Reaction (Verified 10/29/19 10:) doesn't remember doxycycline Adverse Reaction (Verified 10/29/19 10:) Abd cramps/diarrhea formoterol fumarate [From Dulera] Adverse Reaction (Verified 10/29/19 10:) Other hydrochlorothiazide Adverse Reaction (Verified 10/29/19 10:) Other ibuprofen [From Advil] Adverse Reaction (Verified 10/29/19 10:) Other iodine Adverse Reaction (Verified 10/29/19 10:) Itching merbromin Adverse Reaction (Verified 10/29/19 10:) Other mometasone furoate [From Dulera] Adverse Reaction (Verified 10/29/19 10:) Other oseltamivir [From Tamiflu] Adverse Reaction (Verified 10/29/19 10:) uterine pain prednisone Adverse Reaction (Verified 10/29/19 10:) Abd cramps/diarrhea PLASTIC TAPE Allergy (Uncoded 10/29/19 10:) Rash Home Medications: Ambulatory Orders Medication Instructions Recorded Albuterol Inhaler [Ventolin Hfa] 1 - 2 puff INHALATION Q4H PRN PRN 10/16/16 carvedilol 25 mg tablet 25 mg PO BID #180 tab 02/02/19 rivaroxaban 20 mg tablet 20 mg PO DINNER #30 tab 02/02/19 fluticasone propionate 230 2 puff INHALATION BID #1 device 04/08/19 mcg-salmeterol 21 mcg/actuation HFA inhaler furosemide 40 mg tablet 40 mg PO BID #120 tab 07/23/19 potassium chloride 20 mEq 20 meq PO DAILY #90 tab 07/23/19 tablet,extended release Multivit-Min/Iron/Folic/Lutein 1 tab PO DAILY 10/05/19 [Centrum Silver Women Tablet] Tiotropium [place] [Spiriva 2 puff INHALATION BID 12/16/19 Respimat] Spironolactone [Aldactone] 25 mg PO DAILY #60 tab 10/08/19 Handicap Placard #1 ea 10/22/19 quinapril 20 mg tablet 20 mg PO BID #180 tab 10/22/19 - Family History Maternal Family History: Family History (Last Reviewed 10/29/19 @ 10:43 by RAFAEL Conner) Father Emphysema of lung Sister Cancer No pertinent history Paternal Family History: Family History (Last Reviewed 10/29/19 @ 10:43 by RAFAEL Conner) Father Emphysema of lung Sister Cancer No pertinent history Smoking Status: Current some day smoker Tobacco Use: Cigarettes Review of Systems Constitutional: Denies: Chills, Fever, Weight Change Eyes: Denies: Pain, Vision Change HEENT: Denies: Difficulty Hearing, Difficulty Swallowing, Sinus Congestion Cardiovascular: Denies: Chest Pain, Palpitations Respiratory: Denies: Cough, Shortness of Breath Gastrointestinal: Denies: Diarrhea, Nausea, Vomiting Genitourinary: Denies: Dysuria, Hematuria Endocrine: Denies: Heat/ Cold Intolerance, Polydipsia, Polyuria Hematologic/ Lymphatic: Denies: Easy Bruising, Easy Bleeding - Physical Exam Vital Signs Temp Pulse Resp BP 97.3 F L 74 18 143/65 H 11/03/19 11:24 11/03/19 11:24 11/03/19 11:24 11/03/19 11:24 General: Alert, Oriented x3, Cooperative, No apparent distress, Well developed, Well nourished HEENT: Atraumatic, PERRLA, EOMI, Normocephalic Oral: Moist Mucosa Neck: No JVD Lungs: Normal air movement Abdomen: Non-Distended Extremities: No clubbing, No cyanosis, No Calf Tenderness, - - Mild swelling and edema persist in the lower extremities bilaterally, though much improved recently. The ulceration on the left medial calf is now completely healed and epithelialized. Ulcerations on the right posterior calf persists, though appeared improved. Dimensions are documented elsewhere. They are clustered ulcerations, and with evidence of epithelialization. There is no sign of infection or cellulitis. There is a small amount of bioburden. Wound Measurements and Assessment WC - Nurse 1 - General Ulcer Measurement Start: 10/27/19 10:49 Freq: Status: Active Protocol: Activity Type Activity Date Activity User E-Sign Co-Sign Detail Recorded Client Recorded Date Recorded By Document 11/03/19 11:24 [facility] [id number] 11/03/19 11:30 [facility] 11/03/19 11:24 W[facility] Center Nurse 1 [Ulcer Assessment] #3 L MED LE -Combined with other wound No -Current Size (cm) - Length 0.1 -Current Size (cm) - Width 0.1 -Current Size (cm) - Depth 0.1 -Total Square Cm 0.01 -Epithelialization Large 67-100% -Tunneling No -Undermining/Tunneling No -Circular Undermining No -Exudate Amt None Present -Wound Margin Flat & Intact -Granulation Amt Large (67-100%) -Granulation Quality [place],Red -Slough/Fibrin No -Necrosis Amt None Present (0 %) -Structure Exposed N/A -Texture (Yesenia-wound Skin Appearance) Assessed -Moisture (Yesenia-wound Skin Appearance Assessed ) -Color (Yesenia-wound Skin Appearance) Assessed -Temperature (Yesenia-wound Skin No Abnormality Appearance) (Pt Warm) -Tenderness on Palpation (Yesenia-wound No Skin Appearance) -Ulcer Cleansing Rinsed/ Irrigated with Saline -Foul Odor after Cleansing No #2 L LAT LE -Combined with other wound No -Current Size (cm) - Length 0.1 -Current Size (cm) - Width 0.1 -Current Size (cm) - Depth 0.1 -Total Square Cm 0.01 -Epithelialization Large 67-100% -Tunneling No -Undermining/Tunneling No -Circular Undermining No -Exudate Amt None Present -Wound Margin Flat & Intact -Granulation Amt Large (67-100%) -Granulation Quality [place] -Slough/Fibrin No -Necrosis Amt None Present (0 %) -Structure Exposed N/A -Texture (Yesenia-wound Skin Appearance) Assessed -Moisture (Yesenia-wound Skin Appearance Assessed ) -Color (Yesenia-wound Skin Appearance) Assessed -Temperature (Yesenia-wound Skin No Abnormality Appearance) (Pt Warm) -Tenderness on Palpation (Yesenia-wound No Skin Appearance) -Ulcer Cleansing Rinsed/ Irrigated with Saline #1 Lateral RLE -Combined with other wound No -Current Size (cm) - Length 5 -Current Size (cm) - Width 2.8 -Current Size (cm) - Depth 0.2 -Total Square Cm 14.0 -Tunneling No -Undermining/Tunneling No -Circular Undermining No -Exudate Amt Small -Exudate Type Serosanguineous -Wound Margin Flat & Intact -Granulation Amt Medium (34-66%) -Granulation Quality [place],Red -Slough/Fibrin Yes -Necrosis Amt Medium (34-66%) -Necrotic Tissue Type Adherent Slough -Structure Exposed N/A -Texture (Yesenia-wound Skin Appearance) Scarring -Moisture (Yesenia-wound Skin Appearance Dry/Scaly ) -Color (Yesenia-wound Skin Appearance) Assessed -Temperature (Yesenia-wound Skin No Abnormality Appearance) (Pt Warm) -Tenderness on Palpation (Yesenia-wound No Skin Appearance) -Ulcer Cleansing Wound Cleanser -Foul Odor after Cleansing No -Anesthetic Used 4% Lidocaine Solution [Edema Assessment] -Lower Limb Edema Present Yes -Right Calf (cm) 41.3 -Right Ankle (cm) 23 -Left Calf (cm) 37.7 -Left Ankle (cm) 23.1 WC - Nurse 2 - General Ulcer CM Notes Start: 10/27/19 10:49 Freq: Status: Active Protocol: Activity Type Activity Date Activity User E-Sign Co-Sign Detail Recorded Client Recorded Date Recorded By Document 11/03/19 11:42 DV [id number] 11/03/19 11:48 DV 11/03/19 11:42 Wound Center Nurse 2 [Procedure/Treatment] #3 L MED LE -Time 11:45 -Correct Patient Yes -Correct Side, Site, Position Yes -Correct Procedure No -Procedure Performed No -Post Debridement Size (cm) - Length 0 -Post Debridement Size (cm) - Width 0 -Post Debridement Size (cm) - Depth 0 -Total Square Cm 0 -Wound/Ulcer Outcome Healed- Epithelialized #2 L LAT LE -Time 11:45 -Correct Patient Yes -Correct Side, Site, Position Yes -Correct Procedure No -Procedure Performed No -Post Debridement Size (cm) - Length 0 -Post Debridement Size (cm) - Width 0 -Post Debridement Size (cm) - Depth 0 -Total Square Cm 0 -Wound/Ulcer Outcome Healed- Epithelialized #1 Lateral RLE -Time 11:46 -Correct Patient Yes -Correct Side, Site, Position Yes -Correct Procedure No -Procedure Performed No -Wound/Ulcer Outcome Not Healed [See Physician Procedure note for Specifics] Pain Scale: 0-10 Numeric [Pain] -Is Patient Pain Free? Yes Neurological: Cranial nerves II-XII grossly intact, Neuro grossly intact Psych/Mental Status: Normal Affect, Appropriate, Alert and oriented to time, place, person, mood and affect Debridement Note Post-Debridement Measurements/Treatment WC - Nurse 2 - General Ulcer CM Notes Start: 10/27/19 10:49 Freq: Status: Active Protocol: Activity Type Activity Date Activity User E-Sign Co-Sign Detail Recorded Client Recorded Date Recorded By Document 10/27/19 11:43 DV [id number] 10/27/19 11:46 DV Document 11/03/19 11:42 DV [id number] 11/03/19 11:48 DV 10/27/19 11/03/19 11:43 11:42 Wound Center Nurse 2 #3 L MED LE -Time 11:43 11:45 -Correct Patient Yes Yes -Correct Side, Site, Position Yes Yes -Correct Procedure No No -Procedure Performed No No -Post Debridement Size (cm) - Length 0 -Post Debridement Size (cm) - Width 0 -Post Debridement Size (cm) - Depth 0 -Total Square Cm 0 -Wound/Ulcer Outcome Not Healed Healed- Epithelialized #2 L LAT LE -Time 11:44 11:45 -Correct Patient Yes Yes -Correct Side, Site, Position Yes Yes -Correct Procedure No No -Procedure Performed No No -Post Debridement Size (cm) - Length 0 -Post Debridement Size (cm) - Width 0 -Post Debridement Size (cm) - Depth 0 -Total Square Cm 0 -Wound/Ulcer Outcome Not Healed Healed- Epithelialized #1 Lateral RLE -Time 11:45 11:46 -Correct Patient Yes Yes -Correct Side, Site, Position Yes Yes -Correct Procedure Yes No -Procedure Performed Yes No -Type of Procedure Debridement -Clinical Debridement Subcutaneous -Post Debridement Size (cm) - Length 15.0 -Post Debridement Size (cm) - Width 7.0 -Post Debridement Size (cm) - Depth 0.2 -Total Square Cm 105.00 -Wound/Ulcer Outcome Not Healed Not Healed -Ulcer Cleansing Rinsed/ Irrigated with Saline -Foul Odor after Cleansing No -Bioengineered Tissue No -Bleeding Controlled with Pressure -Offloading No -Treatment Response Procedure Tolerated Well Pain Scale: 0-10 Numeric Is Patient Pain Free? Yes Yes Laterality: Right - Posterior calf Type of Debridement: Excisional debridement Anesthesia Used: 5% Lidocaine Gel Depth: Down to and including healthy tissue, in the subcutaneous layer Percentage of wound debrided: 100 Instrument Used: 5mm curette Tissue Removed: Bioburden and nonviable tissue Severity: Fat Layer Exposed Amount of bleeding with debridement: Mild Bleeding Controlled with: Compression and gauze Patient tolerated procedure well Assessment/Plan Active Problems (Last Reviewed 10/29/19 @ 10:43 by RAFAEL Conner) Tobacco abuse (Chronic) Tobacco abuse counseling (Chronic) Dependent edema (Chronic) Bilateral leg ulcer (Chronic) Assessment: This is a 73-year-old female who presented with severe swelling, edema, and ulcerations in her lower extremities. She has also noted drainage from her ulcerations as well. She has recently been treated as an inpatient at [facility] for congestive heart failure and a right pleural effusion. It has been ascertained that the patient is relatively immobile. She sits for long hours each day. Due to her pre-existing medical problems, she also sleeps in a chair, sitting in an upright position. Thus, it appears as though the swelling and edema in her lower extremities is largely related to dependency and a lack of activity. She has recently undergone diagnostic studies on October 22, 2019, the results of which are as follows: White blood count 5.0, hemoglobin 12.4, hematocrit 38.6, platelets 297,000, glucose 95, BUN 6, creatinine 0.48, sodium 125, potassium 4.5, chloride 89. Plan: A lengthy discussion has been undertaken with the patient and her , who was at the bedside. The importance of leg elevation has been strongly stressed. Patient has been encouraged to elevate her lower extremities much as possible. She resolutely states that she is unable to lay on a flat mattress. Therefore, she has been encouraged to elevate her lower extremities as much as possible while in her recliner. It has been stressed that the patient should position her legs to the same level as her heart, or higher. This should be accomplished as much as possible. Activity has been encouraged. Prolonged idle sitting has been discouraged. We are to implement compression of the right lower extremity by means of an Unna boot compression wrap. This will be changed twice weekly. Compression is warranted in the left lower extremity as well. However, due to the patient's recent treatment for congestive heart failure, we will refrain from higher degrees of compression in the left lower extremity. Thus, we will continue with the Douglas wrap applied by the patient on a daily basis to the left lower extremity. A noninvasive lower extremity arterial study was performed earlier today, revealing no evidence of significant arterial occlusive disease, with triphasic waveforms at ankle level bilaterally, and normal resting ankle-brachial indices bilaterally, and normal digital-brachial indices bilaterally. A venous duplex examination reveals incompetence of the right great saphenous vein below the knee, though no other significant superficial venous abnormalities. The patient is to return in 1 week for reassessment. Ultimately, mechanical pneumatic compression pumps may be of some benefit as well. Certainly, these measures will be implemented in staged fashion, given the patient's recent treatment for congestive heart failure. Nutritional optimization has been encouraged. Patient is to return in 1 week for reassessment. Influenza vaccine was not administered. The patient is a smoker, and has been advised to quit. Hazards of smoking have been explained. The patient weighs 148 pounds. She stands 5 feet 4 inches tall. Her BMI is 25.4, which places her in the overweight category. Weight optimization has been recommended.
[2019-11-06 11:50] VITALS: BP 113/61; PULSE 86; RESP 16; TEMP 35.9; BMI 25.9
[2019-11-10 13:03] VITALS: BP 136/60; PULSE 75; RESP 18; TEMP 36.1; BMI 25.9
[2019-11-13 08:41] VITALS: BP 139/65; PULSE 78; RESP 16; TEMP 36.7; BMI 25.9
[2019-11-17 10:51] VITALS: BP 143/48; PULSE 67; RESP 16; TEMP 36.2; BMI 25.9
--- NOTE | 2019-11-17 11:44 | HP.PCM_ITS ---
(1) Bilateral leg ulcer Status: Chronic Current Visit: Yes Qualifiers: Non-pressure ulcer stage: with fat layer exposed Code(s): L97.919 - Non-pressure chronic ulcer of unspecified part of right lower leg with unspecified severity; L97.929 - Non-pressure chronic ulcer of unspecified part of left lower leg with unspecified severity (2) Non-ischemic cardiomyopathy Status: Chronic Current Visit: No Code(s): I42.8 - Other cardiomyopathies (3) Paroxysmal atrial fibrillation Status: Chronic Current Visit: No Code(s): I48.0 - Paroxysmal atrial fibrillation (4) Acute on chronic systolic (congestive) heart failure Status: Chronic Current Visit: No Code(s): I50.23 - Acute on chronic systolic (congestive) heart failure (5) Secondary pulmonary arterial hypertension Status: Chronic Current Visit: No Code(s): I27.21 - Secondary pulmonary arterial hypertension (6) Non-rheumatic tricuspid valve insufficiency Status: Chronic Current Visit: No Code(s): I36.1 - Nonrheumatic tricuspid (valve) insufficiency (7) Nonrheumatic mitral (valve) insufficiency Status: Chronic Current Visit: No Code(s): I34.0 - Nonrheumatic mitral (valve) insufficiency (8) Essential (primary) hypertension Status: Chronic Current Visit: No Code(s): I10 - Essential (primary) hypertension (9) Lung mass Status: Chronic Current Visit: No Code(s): R91.8 - Other nonspecific abnormal finding of lung field (10) History of breast cancer Status: Chronic Current Visit: No Code(s): Z85.3 - Personal history of malignant neoplasm of breast (11) COPD (chronic obstructive pulmonary disease) Status: Chronic Current Visit: No Qualifiers: Code(s): J44.9 - Chronic obstructive pulmonary disease, unspecified (12) Nicotine dependence Status: Chronic Current Visit: No Code(s): F17.200 - Nicotine dependence, unspecified, uncomplicated (13) Chronic anticoagulation Status: Chronic Current Visit: No Code(s): Z79.01 - senior care (current) use of anticoagulants (14) Tobacco abuse Status: Chronic Current Visit: Yes Code(s): Z72.0 - Tobacco use (15) Tobacco abuse counseling Status: Chronic Current Visit: Yes Code(s): Z71.6 - Tobacco abuse counseling (16) Dependent edema Status: Chronic Current Visit: Yes Code(s): R60.9 - Edema, unspecified History of Present Illness Date of Service: 11/17/19 Chief Complaint: Bilateral lower extremity swelling and edema with bilateral lower extremity ulcerations. History of Wound: This is a 73-year-old female who was hospitalized approximately 2 weeks prior to presentation at [facility] in treatment for congestive heart failure and a right pleural effusion. She was treated medically by means of diuretics, and underwent a right thoracentesis for drainage of her pleural effusion. She was noted to have extreme swelling and edema in her lower extremities. [facility] relative to the swelling and edema in her lower extremities, which are associated with ulcerations. The patient is debilitated, and relatively immobile. Her ambulatory capacity is extremely limited. She sits throughout the day, and sleeps in a chair in an upright position at night. The swelling and edema in her legs has been present for over 1 month. The ulcerations on her lower extremities are said to have begun as blisters. The patient denies a history of lower extremity thrombophlebitis. She has multiple pre-existing medical problems, as listed below. Past Medical History Past Medical History: Chronic Problems (Last Reviewed 10/29/19 @ 10:43 by RAFAEL Conner) Tobacco abuse (Chronic) Tobacco abuse counseling (Chronic) Dependent edema (Chronic) Bilateral leg ulcer (Chronic) Non-ischemic cardiomyopathy (Chronic) Paroxysmal atrial fibrillation (Chronic) Acute on chronic systolic (congestive) heart failure (Chronic) Secondary pulmonary arterial hypertension (Chronic) Non-rheumatic tricuspid valve insufficiency (Chronic) Nonrheumatic mitral (valve) insufficiency (Chronic) Essential (primary) hypertension (Chronic) Lung mass (Chronic) History of breast cancer (Chronic) COPD (chronic obstructive pulmonary disease) (Chronic) Nicotine dependence (Chronic) Chronic anticoagulation (Chronic) Surgical History: mastectomy, - - The patient has previously undergone a left mastectomy, right breast lumpectomy, and resection of a left pulmonary nodule. She also has undergone tubal ligation. She is a Ab0. Allergies/Adverse Reactions: Allergies albuterol sulfate [From Combivent] Allergy (Verified 11/06/19 09:37) Swelling ipratropium bromide [From Combivent] Allergy (Verified 11/06/19 09:37) Swelling metoprolol Allergy (Verified 11/06/19 09:37) Laryngospasms Sulfa (Sulfonamide Antibiotics) Allergy (Verified 11/06/19 09:37) Rash beclomethasone [From Qvar] Adverse Reaction (Verified 11/06/19 09:37) COUGHING benzalkonium chloride [From Merthiolate (benzalkonium)] Adverse Reaction (Verified 11/06/19 09:37) Other codeine Adverse Reaction (Verified 11/06/19 09:37) doesn't remember doxycycline Adverse Reaction (Verified 11/06/19 09:37) Abd cramps/diarrhea formoterol fumarate [From Dulera] Adverse Reaction (Verified 11/06/19 09:37) Other hydrochlorothiazide Adverse Reaction (Verified 11/06/19 09:37) Other ibuprofen [From Advil] Adverse Reaction (Verified 11/06/19 09:37) Other iodine Adverse Reaction (Verified 11/06/19 09:37) Itching merbromin Adverse Reaction (Verified 11/06/19 09:37) Other mometasone furoate [From Dulera] Adverse Reaction (Verified 11/06/19 09:37) Other oseltamivir [From Tamiflu] Adverse Reaction (Verified 11/06/19 09:37) uterine pain prednisone Adverse Reaction (Verified 11/06/19 09:37) Abd cramps/diarrhea PLASTIC TAPE Allergy (Uncoded 10/29/19 10:26) Rash Home Medications: Ambulatory Orders Medication Instructions Recorded Albuterol Inhaler [Ventolin Hfa] 1 - 2 puff INHALATION Q4H PRN PRN 16 carvedilol 25 mg tablet 25 mg PO BID #180 tab 02/02/19 rivaroxaban 20 mg tablet 20 mg PO DINNER #30 tab 02/02/19 fluticasone propionate 230 2 puff INHALATION BID #1 device 04/08/19 mcg-salmeterol 21 mcg/actuation HFA inhaler furosemide 40 mg tablet 40 mg PO BID #120 tab 07/23/19 potassium chloride 20 mEq 20 meq PO DAILY #90 tab 07/23/19 tablet,extended release Multivit-Min/Iron/Folic/Lutein 1 tab PO DAILY 10/05/19 [Centrum Silver Women Tablet] Tiotropium [place] [Spiriva 2 puff INHALATION BID 12/16/19 Respimat] Spironolactone [Aldactone] 25 mg PO DAILY #60 tab 10/08/19 Handicap Placard #1 ea 10/22/19 quinapril 20 mg tablet 20 mg PO BID #180 tab 10/22/19 - Family History Maternal Family History: Family History (Last Reviewed 10/29/19 @ 10:43 by RAFAEL Conner) Father Emphysema of lung Sister Cancer No pertinent history Paternal Family History: Family History (Last Reviewed 10/29/19 @ 10:43 by RAFAEL Conner) Father Emphysema of lung Sister Cancer No pertinent history Smoking Status: Current some day smoker Tobacco Use: Cigarettes Review of Systems Constitutional: Denies: Chills, Fever, Weight Change Eyes: Denies: Pain, Vision Change HEENT: Denies: Difficulty Hearing, Difficulty Swallowing, Sinus Congestion Cardiovascular: Denies: Chest Pain, Palpitations Respiratory: Denies: Cough, Shortness of Breath Gastrointestinal: Denies: Diarrhea, Nausea, Vomiting Genitourinary: Denies: Dysuria, Hematuria Endocrine: Denies: Heat/ Cold Intolerance, Polydipsia, Polyuria Hematologic/ Lymphatic: Denies: Easy Bruising, Easy Bleeding - Physical Exam Vital Signs Temp Pulse Resp BP 97.2 F L 67 16 143/48 H 11/17/19 10:51 11/17/19 10:51 11/17/19 10:51 11/17/19 10:51 General: Alert, Oriented x3, Cooperative, No apparent distress, Well developed, Well nourished HEENT: Atraumatic, PERRLA, EOMI, Normocephalic Oral: Moist Mucosa Neck: No JVD Lungs: Normal air movement Abdomen: Non-Distended Extremities: No clubbing, No cyanosis, No Calf Tenderness, - - The swelling and edema in the patient's lower extremities appears to be reasonably well controlled. The ulceration on the right posterior calf is now completely healed and epithelialized. There are no remaining unhealed ulcerations in the patient's lower extremities. Skin: No rashes, No breakdown Wound Measurements and Assessment WC - Nurse 1 - General Ulcer Measurement Start: 10/27/19 10:49 Freq: Status: Active Protocol: Activity Type Activity Date Activity User E-Sign Co-Sign Detail Recorded Client Recorded Date Recorded By Document 11/17/19 10:51 BM[facility] [id number] 11/17/19 11:02 [facility] 11/17/19 10:51 Wound Center Nurse 1 [Ulcer Assessment] #1 Lateral RLE -Combined with other wound No -Current Size (cm) - Length 0.1 -Current Size (cm) - Width 0.1 -Current Size (cm) - Depth 0.1 -Total Square Cm 0.01 -Epithelialization Large 67-100% -Tunneling No -Undermining/Tunneling No -Circular Undermining No -Texture (Yesenia-wound Skin Appearance) Assessed -Moisture (Yesenia-wound Skin Appearance Assessed,Dry/ ) Scaly -Color ([place]-wound Skin Appearance) Assessed -Temperature ([place]enia-wound Skin No Abnormality Appearance) (Pt Warm) -Tenderness on Palpation (Yesenia-wound No Skin Appearance) -Ulcer Cleansing SOAPY WATER -Foul Odor after Cleansing No -Anesthetic Used 4% Lidocaine Solution [Edema Assessment] -Lower Limb Edema Present Yes -Right Calf (cm) 31.7 -Right Ankle (cm) 21.3 WC - Nurse 2 - General Ulcer CM Notes Start: 10/27/19 10:49 Freq: Status: Active Protocol: Activity Type Activity Date Activity User E-Sign Co-Sign Detail Recorded Client Recorded Date Recorded By Document 11/17/19 11:41 DV [id number] 11/17/19 11:43 DV 11/17/19 11:41 Wound Center Nurse 2 [Procedure/Treatment] #1 Lateral RLE -Time 11:41 -Correct Patient Yes -Correct Side, Site, Position Yes -Correct Procedure No -Procedure Performed No -Post Debridement Size (cm) - Length 0 -Post Debridement Size (cm) - Width 0 -Post Debridement Size (cm) - Depth 0 -Total Square Cm 0 -Wound/Ulcer Outcome Healed- Epithelialized [See Physician Procedure note for Specifics] Pain Scale: 0-10 Numeric [Pain] -Is Patient Pain Free? Yes Neurological: Cranial nerves II-XII grossly intact, Neuro grossly intact Psych/Mental Status: Normal Affect, Appropriate, Alert and oriented to time, place, person, mood and affect Debridement Note Post-Debridement Measurements/Treatment WC - Nurse 2 - General Ulcer CM Notes Start: 10/27/19 10:49 Freq: Status: Active Protocol: Activity Type Activity Date Activity User E-Sign Co-Sign Detail Recorded Client Recorded Date Recorded By Document 10/27/19 11:43 DV [id number] 10/27/19 11:46 DV Document 11/03/19 11:42 DV [id number] 11/03/19 11:48 DV Document 11/17/19 11:41 DV [id number] 11/17/19 11:43 DV 10/27/19 11/03/19 11/17/19 11:43 11:42 11:41 Wound Center Nurse 2 #3 L MED LE -Time 11:43 11:45 -Correct Patient Yes Yes -Correct Side, Site, Position Yes Yes -Correct Procedure No No -Procedure Performed No No -Post Debridement Size (cm) - Length 0 -Post Debridement Size (cm) - Width 0 -Post Debridement Size (cm) - Depth 0 -Total Square Cm 0 -Wound/Ulcer Outcome Not Healed Healed- Epithelialized #2 L LAT LE -Time 11:44 11:45 -Correct Patient Yes Yes -Correct Side, Site, Position Yes Yes -Correct Procedure No No -Procedure Performed No No -Post Debridement Size (cm) - Length 0 -Post Debridement Size (cm) - Width 0 -Post Debridement Size (cm) - Depth 0 -Total Square Cm 0 -Wound/Ulcer Outcome Not Healed Healed- Epithelialized #1 Lateral RLE -Time 11:45 11:46 11:41 -Correct Patient Yes Yes Yes -Correct Side, Site, Position Yes Yes Yes -Correct Procedure Yes No No -Procedure Performed Yes No No -Type of Procedure Debridement -Clinical Debridement Subcutaneous -Post Debridement Size (cm) - Length 15.0 0 -Post Debridement Size (cm) - Width 7.0 0 -Post Debridement Size (cm) - Depth 0.2 0 -Total Square Cm 105.00 0 -Wound/Ulcer Outcome Not Healed Not Healed Healed- Epithelialized -Ulcer Cleansing Rinsed/ Irrigated with Saline -Foul Odor after Cleansing No -Bioengineered Tissue No -Bleeding Controlled with Pressure -Offloading No -Treatment Response Procedure Tolerated Well Pain Scale: 0-10 Numeric Is Patient Pain Free? Yes Yes Yes No debridement was completed today - The patient is completely healed and epithelialized. There are no open wounds or ulcerations. Assessment/Plan Active Problems (Last Reviewed 10/29/19 @ 10:43 by RAFAEL Conner) Tobacco abuse (Chronic) Tobacco abuse counseling (Chronic) Dependent edema (Chronic) Bilateral leg ulcer (Chronic) Assessment: This is a 73-year-old female who presented with severe swelling, edema, and ulcerations in her lower extremities. She has also noted drainage from her ulcerations as well. She has recently been treated as an inpatient at [facility] for congestive heart failure and a right pleural effusion. It has been ascertained that the patient is relatively immobile. She sits for long hours each day. Due to her pre-existing medical problems, she also sleeps in a chair, sitting in an upright position. Thus, it appears as though the swelling and edema in her lower extremities is largely related to dependency and a lack of activity. She has recently undergone diagnostic studies on October 22, 2019, the results of which are as follows: White blood count 5.0, hemoglobin 12.4, hematocrit 38.6, platelets 297,000, glucose 95, BUN 6, creatinine 0.48, sodium 125, potassium 4.5, chloride 89. Plan: The patient's lower extremity ulcerations are now completely healed and epithelialized. There are no open wounds or ulcerations. Patient is done quite well. Furthermore, there is no significant swelling or edema in the patient's lower extremities. A lengthy discussion has been undertaken with the patient and her , who was at the bedside. The importance of leg elevation has been strongly stressed. Patient has been encouraged to elevate her lower extremities much as possible. It has been stressed that the patient should position her legs to the same level as her heart, or higher. This should be accomplished as much as possible. Activity has been encouraged. Prolonged idle sitting has been discouraged. The patient is to be discharged. She has been provided a prescription for graduated compression stockings of 15 to 20 mmHg compression, which are to be worn daily. Because of her history of congestive heart failure, we have downgraded the amount of compression as compared to that which we would normally recommend. The patient will follow-up henceforth on an as-needed basis. She has responded well to conservative treatment measures, and appears to understand our recommendations for ongoing management. Influenza vaccine was not administered. The patient is a smoker, and has been advised to quit. Hazards of smoking have been explained. The patient weighs 148 pounds. She stands 5 feet 4 inches tall. Her BMI is 25.4, which places her in the overweight category. Weight optimization has been recommended.
== END 2019-11-20 23:59 ==
LOC: WC 11:00
PROVIDERS: Internal Medicine Cardiovascular Disease; Family Provider Family Medicine; PCP Family Medicine; Visit Provider Surgery
DX: L97.222 Non-pressure chronic ulcer of left calf with fat layer exposed (principal); L97.212 Non-pressure chronic ulcer of right calf with fat layer exposed; M79.89 Other specified soft tissue disorders; R60.0 Localized edema; I11.0 Hypertensive heart disease with heart failure; I50.22 Chronic systolic (congestive) heart failure; I48.0 Paroxysmal atrial fibrillation; I27.21 Secondary pulmonary arterial hypertension; I42.8 Other cardiomyopathies; J44.9 Chronic obstructive pulmonary disease, unspecified; E66.3 Overweight; Z68.25 Body mass index [BMI] 25.0-25.9, adult; Z71.6 Tobacco abuse counseling; F17.210 Nicotine dependence, cigarettes, uncomplicated; Z79.01 Long term (current) use of anticoagulants
CPT/HCPCS: 11042; 29580; 29581; 36415; 80048; 85025; 93923; 93970; 99212; 99213; G0463

== ENCOUNTER 2020-04-18 08:08 | Inpatient (IN) | payer MEDICARE, OTHER, SELFPAY ==
[2020-01-25 09:17] VITALS: BMI 25.9
[2020-04-18] VITALS (12 sets, daily range): BP systolic 108–146; BP diastolic 67–83; PULSE 70–102; RESP 18–25; TEMP 36.3–36.6; O2SAT 98–100; BMI 38.0; BMI 36.1
--- NOTE | 2020-04-18 08:29 | EKG12_ITS ---
Test Reason : SOB Blood Pressure : / mmHG Vent. Rate : 085 BPM Atrial Rate : 079 BPM P-R Int : 000 ms QRS Dur : 098 ms QT Int : 386 ms P-R-T Axes : 000 -04 081 degrees QTc Int : 459 ms Atrial fibrillation Low voltage QRS (limb leads) Nonspecific T wave abnormality Poor R-wave progression Abnormal ECG Confirmed by ANIKET GILBERT, CATALINA ([id number]), editor greeting card NORMA SALEH ([id number]) on 04/28/2020 4:28:04 PM Referred By: JAMA Confirmed By:CATALINA MARCIAL MD
--- NOTE | 2020-04-18 08:39 | EKG12_ITS ---
Test Reason : SOB Blood Pressure : / mmHG Vent. Rate : 086 BPM Atrial Rate : 192 BPM P-R Int : 000 ms QRS Dur : 098 ms QT Int : 386 ms P-R-T Axes : 000 -18 084 degrees QTc Int : 461 ms Atrial fibrillation Low voltage QRS Abnormal ECG Confirmed by CORINNA MÉNDEZ ([id number]), editorial assistant DANIEL GRANGER ([id number]) on 04/21/2020 11:55:22 AM Referred By: JAMA Confirmed By:CORINNA MÉNDEZ
--- NOTE | 2020-04-18 08:39 | RAD_ITS ---
STUDY: X-RAY CHEST REASON FOR EXAM: Female, 74 years old. Increased in SOB, been retaining fluid needing O2 more frequently at home, BLE edema, h/o COPD CHF TECHNIQUE: Single AP portable view of the chest. COMPARISON: Comparison is made with prior examination dated October 07, 2019. FINDINGS: EKG electrodes are seen. Surgical clips are seen in both axillary regions. There are small bilateral pleural effusions right greater than left with bibasilar atelectasis and/or infiltration right greater than left. There has been progression as compared to prior study. Persistent enlargement of the left parahilar region with the infiltrate although this has improved. There is calcification of the mitral valve annulus. Normal mediastinum and mike. Normal visualized pulmonary arteries. There is atherosclerotic calcification of the aortic arch with tortuosity. There is a dextroscoliosis of the thoracic spine. Normal visualized ribs, clavicles, and shoulders. There is no demonstrated abnormality of the visualized soft tissue structures of the upper abdomen. RAD/Chest 1 View (Portable) IMPRESSION: Increasing bilateral pleural effusions right greater than left with bibasilar atelectasis and/or infiltrate. Residual infiltration in the left perihilar region although there has been improvement. Electronically Signed: Kenneth Salinas, at 9:37 EDT , Service support ,
[2020-04-18] MEDS: Furosemide 40 MG/4 ML Vial IV ×2 (08:47→17:49)
[2020-04-18 08:53] LABS: Absolute Lymphocyte Count 0.39 X10^3/uL (0.83-4.51); Absolute Neutrophil Count 5.6 X10^3/uL (2.0-7.7); Basophil# 0.01 X10^3/uL; Basophil% 0.1 % (0-1); Hematocrit 31.6 % (37-47); Hemoglobin 9.2 g/dL (12.0-15.0); Lymphocyte # 0.39 X10^3/ul (4.0); Lymphocyte % 5.8 % (19-41); Mean Corp Hgb Conc 29.1 g/dL (32-36); Mean Corpuscular Hgb 21.7 pg (27.0-32.0); Mean Corpuscular Volume 74.5 fL (81-99); Mean Platelet Vol. 8.6 fl (6.2-12.0); Monocyte# 0.68 X10^3/uL; Monocyte% 10.1 % (0-10); NRBC Flagged by Analyzer 0 % (0-5); Neutrophil # 5.58 X10^3/uL (2.7-7.7); Neutrophil % 83.4 % (47-70); POSITIVE DIFFERENTIAL YES; Platelet Count 261 K/mm3 (150-450); RBC Distribution Width CV 16.2 % (11.6-14.6); RBC Distribution Width SD 43.4 fl (35.1-43.9); Red Blood Count 4.24 M/mm3 (4.2-5.4); White Blood Count 6.7 K/mm3 (4.4-11.0)
[2020-04-18 08:57] LABS: Differential Indicated SCAN CRITERIA MET
[2020-04-18 09:13] LABS: International Normalized Ratio 1.5; Prothrombin Time (Protime)PT. 17.3 SECONDS (11.7-14.9)
[2020-04-18 09:14] LABS: Partial Thromboplast Time 36.2 Seconds (24.1-36.2)
[2020-04-18 09:33] LABS: Bacteria 0 SEEN /hpf (None Seen); Mucous, Urine 0 SEEN /hpf (<or=2+); Red Blood Cells-Urine 0 SEEN /hpf (0-5); White Blood Cells 0 SEEN /hpf (0-5)
[2020-04-18 09:39] LABS: BNP,B-Type NATRIURETIC PEPTIDE 1251.1 pg/mL (0-100)
[2020-04-18 09:42] LABS: Color, Urine Yellow (Yellow); Glucose, Dipstick Normal (Normal); Ketone-Dipstick 5 mg/dl (Negative); Leukocyte Esterase-Dipstick Negative /ul (Negative); Nitrite-Dipstick Negative (Negative); Occult Blood-Urine Negative /ul (Negative); Protein-Dipstick Negative (Negative); Specific Gravity, Urine 1.015 (1.002-1.030); Urine Bilirubin Dipstick Negative (Negative); Urine Clarity Sl. Cloudy (Clear); Urine Urobilinogen 1 mg/dl (Normal); Urine pH 6.5 (5.0 - 8.0)
[2020-04-18 09:45] LABS: ALB/GLOB Ratio 0.9 RATIO (0.9-2.4); AST(SGOT) 22 U/L (15-37); Alanine Aminotransfer ALT/SGPT 22 U/L (13-56); Albumin, Serum 3.6 g/dL (3.2-5.0); Alkaline Phosphatase 171 U/L (45-117); Anion Gap 5 (5-15); BUN 7 mg/dL (7-18); BUN/Creat Ratio 15.7 RATIO (10-20); Chloride 77 mmol/L (98-107); Creatinine, Serum 0.45 mg/dL (0.55-1.02); EST Glomerular Filtration Rate 146 mL/min (>60); Est Glom Filt Rate - Afr Amer 177 mL/min (>60); Estimated Creatinine Clearance 41.45 ml/min; Globulin 3.8 g/dL (2.2-4.2); Glucose 109 mg/dL (74-106); Potassium 4.1 mmol/L (3.5-5.1); Protein, Total 7.4 g/dL (6.4-8.2); Sodium Level 114 mmol/L (136-145)
[2020-04-18 10:07] LABS: Squamous Epithelial Cells - UA 0-5 SEEN /hpf (5-10)
--- NOTE | 2020-04-18 10:32 | NURSING ---
DR BHARGAVI YUN
[2020-04-18] MEDS: Sodium Chloride 3% 500 ML 50 ML IV ×2 (10:42→14:11)
--- NOTE | 2020-04-18 10:44 | NURSING ---
ICU BHARGAVI HYPONATREMIA
--- NOTE | 2020-04-18 10:45 | ED.DCSUM_ITS ---
- ER Visit Summary Date of Service: 04/18/20 Chief Complaint: Shortness of breath History of Present Illness: The patient is a 74 F who presents with shortness of breath that is been getting worse over the past 2 days. Patient states her breathing is worse with any exertion and with laying flat. Patient states her breathing improves with her inhaler. Patient states she is coughing up some white sputum. Patient denies any rhinorrhea or sore throat. Patient denies any fevers or chills. Patient denies any chest pain. Patient does admit to some lower extremity edema and increased weight gain. She does have a history of congestive heart failure and COPD. Patient also has a history of breast cancer and lung cancer. Physical Examination: Vital signs are stable. Patient is afebrile. Patient is in no acute distress. Oral mucosa is pink and moist. Neck is supple. Trachea is midline. There is no JVD. Heart was irregularly irregular. Lungs are diminished in the bases bilaterally. There is good respiratory effort noted. Abdomen is soft. Bowel sounds are normal. There is no tenderness. There is no guarding. Extremities are intact. There is 3+ edema of the lower extremities bilaterally. There is no tenderness. Cranial nerves II through XII are intact. There are no focal motor or sensory deficits noted. Test Results: Chest x-ray was obtained. There are bilateral pleural effusions, right worse than the left. There is bibasilar atelectasis. Was interpreted by the radiologist and reviewed by myself. EKG showed atrial fibrillation with a rate of 86. There are no acute ST or T wave changes. CBC was essentially within normal limits. Comprehensive metabolic profile showed a sodium of 114. This is new compared to previous result from October 22. Emergency Department Course and Treatment: Patient was given Lasix initially. Patient was given 3% saline, 100 mL bolus. Case was discussed with the hospitalist. This is what he recommended. Patient will be admitted to PCU. Patient and family understood and were agreeable with the plan. All questions were answered. Disposition: Admit to hospital Impression: 1. Hyponatremia Critical care time: 30 minutes. This was time spent obtaining history, performing physical exam, interpreting results, discussion with consultants, discussion with family, and determining disposition. This note was generated with [employer] software. It may contain incorrect words, spelling, and punctuation that were not noted in review of the chart prior to signing ED Disposition - Plan for ED Patient: Disposition: Acute Care Hospital [facility] Diagnosis: Hyponatremia
--- NOTE | 2020-04-18 10:56 | PN_ITS ---
Vitals/I&O's: Vital Signs Temp Pulse Resp BP Pulse Ox 97.9 F 81 18 138/72 H 98 04/18/20 08:10 04/18/20 10:00 04/18/20 10:00 04/18/20 10:00 04/18/20 10:00 Oxygen Flow Rate (L/min) 2 Oxygen Delivery Method Nasal Cannula Weight: 214 lb 11.684 oz Body Mass Index (BMI) 38.0 Laboratory Results 04/18/20 08:42: WBC 6.7, RBC 4.24, Hgb 9.2 L, Hct 31.6 L, MCV 74.5 L, MCH 21.7 L , MCHC 29.1 L, RDW Std Deviation 43.4, RDW Coeff of Malini 16.2 H, Plt Count 261, MPV 8.6, Immature Gran % (Auto) 0.600, Neut % (Auto) 83.4 H, Lymph % (Auto) 5.8 L, [place] % (Auto) 10.1 H, Eos % (Auto) 0.0, Baso % (Auto) 0.1, Absolute Neuts (auto) 5.6, Absolute Lymphs (auto) 0.39 L, Nucleated RBC % 0 04/18/20 08:42: PT 17.3 H, INR 1.5, APTT 36.2 04/18/20 08:42: Sodium 114 L*, Potassium 4.1, Chloride 77 L, Carbon Dioxide 32. 0, Anion Gap 5, BUN 7, Creatinine 0.45 L, Estim Creat Clear Calc 41.45, Est GFR (MDRD) Af Amer 177, Est GFR (MDRD) Non-Af 146, BUN/Creatinine Ratio 15.7, Glucose 109 H, Calcium 9.0, Total Bilirubin 1.50 H, AST 22, ALT 22, Alkaline Phosphatase 171 H, Troponin I < 0.015, Total Protein 7.4, Albumin 3.6, Globulin 3.8, Albumin/Globulin Ratio 0.9 04/18/20 08:42: B-Natriuretic Peptide 1251.1 H 04/18/20 09:20: Urine Color Yellow, Urine Clarity Sl. Cloudy, Urine pH 6.5, Ur Specific [place] 1.015, Urine Protein Negative, Urine Glucose (UA) Normal, Urine Ketones 5 H, Urine Occult Blood Negative, Urine Nitrite Negative, Urine Bilirubin Negative, Urine Urobilinogen 1 H, Ur Leukocyte Esterase Negative, Urine RBC 0 SEEN, Urine WBC 0 SEEN, Ur Squamous Epith Cells 0-5 SEEN, Urine Bacteria 0 SEEN, Urine Mucus 0 SEEN Current Medications Sodium Chloride (Sodium Chloride 3%) 500 mls @ 50 mls/hr IV .Q10H [id number] Stop: 04/18/20 12:05 Last Admin: 04/18/20 10:42 Dose: 50 mls/hr Documented by: STROKE Vital Signs/Narrative: Vital Signs Temp Pulse Resp BP Pulse Ox 04/18/20 10:00 81 18 138/72 H 98 04/18/20 09:08 77 25 H 135/76 H 100 04/18/20 08:10 97.9 F 89 19 H 146/79 H 100 Medical Necessity - Tobacco Use Smoking Status: Current some day smoker Assessment/Plan All Active Problems (Last Reviewed 01/25/20 @ 10:49 by Jayleen Burr NP-C) Thrush, oral (Resolved)
[2020-04-18 12:50] LABS: Magnesium 1.7 mg/dL (1.6-2.6)
--- NOTE | 2020-04-18 12:52 | PCM.HP.STD ---
Problem List (1) Hyponatremia Status: Acute (2) Chronic respiratory failure with hypoxia Status: Chronic (3) Tobacco abuse Status: Chronic (4) Tobacco abuse counseling Status: Chronic (5) Dependent edema Status: Chronic (6) Bilateral leg ulcer Status: Chronic Qualifiers: (7) Non-ischemic cardiomyopathy Status: Chronic (8) Paroxysmal atrial fibrillation Status: Chronic (9) Acute on chronic systolic (congestive) heart failure Status: Chronic (10) Secondary pulmonary arterial hypertension Status: Chronic (11) Non-rheumatic tricuspid valve insufficiency Status: Chronic (12) Nonrheumatic mitral (valve) insufficiency Status: Chronic (13) Essential (primary) hypertension Status: Chronic (14) Lung mass Status: Chronic (15) History of breast cancer Status: Chronic (16) COPD (chronic obstructive pulmonary disease) Status: Chronic Qualifiers: (17) Nicotine dependence Status: Chronic (18) Chronic anticoagulation Status: Chronic (19) COPD exacerbation Status: Acute History of Present Illness Date of Admission: 04/18/20 Chief Complaint: Exacerbation of shortness of breath for 2 days The patient is a 74 year old F with multiple comorbidities as listed above including chronic hypoxic respiratory failure on 2 L of oxygen on exertion and CHF came to ER with progressive worsening shortness of breath for 2 days. She has increasing lower extremity edema for about 1 to 2 months and does not restrict her fluid intake. She is mostly on wheelchair because of lower extremity edema/lymphedema and shortness of breath. Denies chest pain, tightness or pressure. No fever or chills. She was last seen by Jayleen Terrell in January 2020 virtual visit and still smokes 3 to 4 cigarettes. She is on triple therapy inhaler. She also follows Dr. luo for CHF. In ED, she was found short of breath, tachypneic, pulse ox 100% on 2 L of oxygen respiratory rate 19 to 25/min. Significant abnormal initial ED lab work was sodium 114, chloride 77, BNP 1251, alkaline phosphatase 171. Chest x-ray was individually reviewed and shows bilateral increasing pleural effusion right more than left with bibasilar atelectasis and/or infiltrate. She also has history of left upper lobe mass and had radiotherapy about a year ago. 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 She has CT-guided biopsy of left upper lobe mass reported non-small cell carcinoma favor adenocarcinoma consistent with lung primary. Patient completed radiotherapy about a year ago. Follows Dr. Cazares. Patient had last thoracocentesis in September 2019 during previous admission 850 mils and was of transudate nature. Had recent 2D echo in September 2019 reported as EF 37% with moderately severe MR, moderate. TR with RVSP 60 mm history of moderate pulmonary hypertension. Past Medical History Past Medical History (Chronic Problems): Chronic Problems (Last Reviewed 01/25/20 @ 10:49 by Jayleen Burr NP-C) Chronic respiratory failure with hypoxia (Chronic) Tobacco abuse (Chronic) Tobacco abuse counseling (Chronic) Dependent edema (Chronic) Bilateral leg ulcer (Chronic) Non-ischemic cardiomyopathy (Chronic) Paroxysmal atrial fibrillation (Chronic) Acute on chronic systolic (congestive) heart failure (Chronic) Secondary pulmonary arterial hypertension (Chronic) Non-rheumatic tricuspid valve insufficiency (Chronic) Nonrheumatic mitral (valve) insufficiency (Chronic) Essential (primary) hypertension (Chronic) Lung mass (Chronic) History of breast cancer (Chronic) COPD (chronic obstructive pulmonary disease) (Chronic) Nicotine dependence (Chronic) Chronic anticoagulation (Chronic) Medical History: Medical History (Last Reviewed 01/25/20 @ 10:49 by Jayleen Burr NP-C) Bilateral leg ulcer (Chronic) L97.919, L97.929 Non-ischemic cardiomyopathy (Chronic) I42.8 Paroxysmal atrial fibrillation (Chronic) I48.0 Acute on chronic systolic (congestive) heart failure (Chronic) I50.23 Secondary pulmonary arterial hypertension (Chronic) I27.21 Non-rheumatic tricuspid valve insufficiency (Chronic) I36.1 Nonrheumatic mitral (valve) insufficiency (Chronic) I34.0 Essential (primary) hypertension (Chronic) I10 Lung mass (Chronic) R91.8 History of breast cancer (Chronic) Z85.3 COPD (chronic obstructive pulmonary disease) (Chronic) J44.9 Nicotine dependence (Chronic) F17.200 Debility R53.81 Dependence on supplemental oxygen Z99.81 Dependent edema R60.9 Immobility Z74.09 Leg edema, left R60.0 Leg edema, right R60.0 Leg swelling M79.89 Lumbar disc disease M51.9 Suspected chronic obstructive pulmonary disease based on initial evaluation J44.9 Tobacco abuse Z72.0 Tobacco abuse counseling Z71.6 New onset A. fib with RVR Thrush, oral (Resolved) B37.0 Acute CHF (Inactive) I50.9 Allergies albuterol sulfate [From Combivent] Allergy (Verified 04/18/20 08:22) Swelling ipratropium bromide [From Combivent] Allergy (Verified 04/18/20 08:22) Swelling metoprolol Allergy (Verified 04/18/20 08:22) Laryngospasms Sulfa (Sulfonamide Antibiotics) Allergy (Verified 04/18/20 08:22) Rash beclomethasone [From Qvar] Adverse Reaction (Verified 04/18/20 08:22) COUGHING benzalkonium chloride [From Merthiolate (benzalkonium)] Adverse Reaction (Verified 04/18/20 08:22) Rash codeine Adverse Reaction (Verified 04/18/20 08:22) Chest tightness chest hurts doxycycline Adverse Reaction (Verified 04/18/20 08:22) Abd cramps/diarrhea formoterol fumarate [From Dulera] Adverse Reaction (Verified 04/18/20 08:22) PT UNSURE OF REACTION hydrochlorothiazide Adverse Reaction (Verified 04/18/20 08:22) PT UNSURE OF REACTION ibuprofen [From Advil] Adverse Reaction (Verified 04/18/20 08:22) PT UNSURE OF REACTION iodine Adverse Reaction (Verified 04/18/20 08:22) Itching merbromin Adverse Reaction (Verified 04/18/20 08:22) PT UNSURE OF REACTION mometasone furoate [From Dulera] Adverse Reaction (Verified 04/18/20 08:22) PT UNSURE OF REACTION oseltamivir [From Tamiflu] Adverse Reaction (Verified 04/18/20 08:22) uterine pain prednisone Adverse Reaction (Verified 04/18/20 08:22) Abd cramps/diarrhea PLASTIC TAPE Allergy (Uncoded 04/18/20 08:22) Rash Home Medications: Ambulatory Orders Medication Instructions Recorded Albuterol Inhaler [Ventolin Hfa] 1 - 2 puff INHALATION Q4H PRN PRN 10/16/16 furosemide 40 mg tablet 40 mg PO BID #120 tab 07/23/19 potassium chloride 20 mEq 20 meq PO DAILY #90 tab 07/23/19 tablet,extended release Multivit-Min/Iron/Folic/Lutein 1 tab PO DAILY 10/05/19 [Centrum Silver Women Tablet] Handicap Placard #1 ea 10/22/19 fluticasone propionate 230 2 puff INHALATION BID #1 device 01/25/20 mcg-salmeterol 21 mcg/actuation HFA inhaler rivaroxaban 20 mg tablet 20 mg PO DINNER #30 tab 01/25/20 tiotropium bromide 2.5 2 puff INHALATION BID #4 g 01/25/20 mcg/actuation mist for inhalation quinapril 20 mg tablet 20 mg PO BID #180 tab 02/03/20 carvedilol 25 mg tablet 25 mg PO BID #180 tab 02/25/20 Surgical History: Surgical History (Last Reviewed 01/25/20 @ 10:49 by RAFAEL Conner) History of left heart catheterization Onset Date: 11/09/19 Z98.890 History of left mastectomy Z90.12 History of lumpectomy of right breast Z98.890 History of tubal ligation Z98.51 polyp removal uterus Surgical History: mastectomy, - - The patient has previously undergone a left mastectomy, right breast lumpectomy, and resection of a left pulmonary nodule. She also has undergone tubal ligation. She is a Ab0. Psychiatric History: No pertinent psych hx [employer] IN[employer] SPECIALIST History: No pertinent H[employer] IN[employer]ORY SPECIALIST history Smoking Status: Current some day smoker - *Family History Maternal Family History: Family History (Last Reviewed 01/25/20 @ 10:49 by RAFAEL Conner) Father Emphysema of lung Sister Cancer History Items: No pertinent history Paternal Family History: Family History (Last Reviewed 01/25/20 @ 10:49 by RAFAEL Conner) Father Emphysema of lung Sister Cancer History Items: No pertinent history Review of Systems Constitutional: Denies: Chills, Fever, Weight Change HEENT: Denies: Head Aches, Sinus Congestion, Sinus Drainage Cardiovascular: Reports: Edema. Denies: Chest Pain, Palpitations Respiratory: Reports: Cough, Shortness of Breath, Shortness of breath at rest, Shortness of breath upon exertion, Sputum production - Mild sputum production, mucus. Denies: Hemoptysis, Pleuritic Pain Gastrointestinal: Denies: Abdominal Pain, Nausea, Vomiting Genitourinary: Denies: Dysuria, Frequency, Hematuria, Nocturia, Retention, Urgency Musculoskeletal: Denies: Joint Pain, Joint Tenderness Skin: Denies: Rash, Wounds Neurological: Denies: Numbness, Tingling, Focal weakness Psychiatric: Denies: Anxiety, Depression, Homicidal Ideations, Suicidal Ideations Hematologic/ Lymphatic: Denies: Easy Bruising, Easy Bleeding VTE Information - Inpt Only VTE Present on Admission: No VTE Mechan Device Prophylaxis: None VTE Pharm Prophylaxis ordered?: Yes Patient Problems: Active and Suspected Problems (Last Reviewed 01/25/20 @ 10:49 by RAFAEL Conner) Hyponatremia (Acute) COPD exacerbation (Acute) - Physical Exam Vitals/I&O's: Vital Signs Temp Pulse Resp BP Pulse Ox 97.5 F L 89 18 145/83 H 100 04/18/20 12:08 04/18/20 12:08 04/18/20 12:08 04/18/20 12:08 04/18/20 12:08 Oxygen Flow Rate (L/min) 2 Oxygen Delivery Method Nasal Cannula Weight: 203 lb 14.841 oz Body Mass Index (BMI) 36.1 Intake and Output for Last 24 Hours 04/16/20 04/17/20 04/18/20 23:59 23:59 23:59 Intake Total 500 / 500 Balance 500 / 500 General: Alert, Oriented x3, Cooperative HEENT: Atraumatic, PERRLA, EOMI, Normocephalic Oral: No Gingival or Mucosal Lesions/ Ulcerations, Dry Mucosa Neck: Supple, No JVD, Negative Carotid Bruits Lungs: Diminished - Air entry severely diminished in bilateral lower lungs, right more than left. Stony dullness present on the right lung base below fifth intercostal space posteriorly., Rhonchi, Short of Breath Cardiovascular: Irregular Rate - Rate is controlled., Murmur - Systolic murmur present over left lower sternal border. Abdomen: Bowel Sounds Present, Soft, Non Tender, Non-Distended Extremities: Capillary Refill Less than 3 Seconds, Edema - Bilateral lower extremity edema with lymphedema. Skin: No rashes, No breakdown Musculoskeletal: No Tenderness to Palpation of Joints or Extremities Neurological: Cranial nerves II-XII grossly intact, Deep Tendon Reflexes 2+/4 and Symmetrical, Neuro grossly intact, - - Mild lower extremity weakness secondary to lymphedema and edema. Physical deconditioning Psych/Mental Status: Normal Affect, Appropriate Laboratory Results 04/18/20 08:42: WBC 6.7, RBC 4.24, Hgb 9.2 L, Hct 31.6 L, MCV 74.5 L, MCH 21.7 L, MCHC 29.1 L, RDW Std Deviation 43.4, RDW Coeff of Malini 16.2 H, Plt Count 261, MPV 8.6, Immature Gran % (Auto) 0.600, Neut % (Auto) 83.4 H, Lymph % (Auto) 5.8 L, Pratt % (Auto) 10.1 H, Eos % (Auto) 0.0, Baso % (Auto) 0.1, Absolute Neuts (auto) 5.6, Absolute Lymphs (auto) 0.39 L, Nucleated RBC % 0 04/18/20 08:42: PT 17.3 H, INR 1.5, APTT 36.2 04/18/20 08:42: Sodium 114 L*, Potassium 4.1, Chloride 77 L, Carbon Dioxide 32.0, Anion Gap 5, BUN 7, Creatinine 0.45 L, Estim Creat Clear Calc 41.45, Est GFR (MDRD) Af Amer 177, Est GFR (MDRD) Non-Af 146, BUN/Creatinine Ratio 15.7, Glucose 109 H, Calcium 9.0, Total Bilirubin 1.50 H, AST 22, ALT 22, Alkaline Phosphatase 171 H, Troponin I < 0.015, Total Protein 7.4, Albumin 3.6, Globulin 3.8, Albumin/Globulin Ratio 0.9 04/18/20 08:42: B-Natriuretic Peptide 1251.1 H 04/18/20 08:42: Magnesium 1.7, Troponin I < 0.015 04/18/20 09:20: Urine Color Yellow, Urine Clarity Sl. Cloudy, Urine pH 6.5, Ur Specific [place] 1.015, Urine Protein Negative, Urine Glucose (UA) Normal, Urine Ketones 5 H, Urine Occult Blood Negative, Urine Nitrite Negative, Urine Bilirubin Negative, Urine Urobilinogen 1 H, Ur Leukocyte Esterase Negative, Urine RBC 0 SEEN, Urine WBC 0 SEEN, Ur Squamous Epith Cells 0-5 SEEN, Urine Bacteria 0 SEEN, Urine Mucus 0 SEEN Current Medications Acetaminophen (Tylenol) 650 mg PO Q6H PRN PRN PRN Reason: Pain Score 1-10/Temp > 100.7 F Al Hydroxide/Mg Hydroxide (Mylanta Ii) 30 ml PO Q6H PRN PRN PRN Reason: Gastric Burning Albuterol Sulfate (Ventolin Aerosols) 2.5 mg INHALATION Q2H PRN PRN PRN Reason: SOB/Wheezing Albuterol/Ipratropium (Duoneb) 3 ml INHALATION Q4HWA.RT NIKKI Budesonide (Pulmicort Aerosol) 0.5 mg INHALATION BID.RT NIKKI Carvedilol (Coreg) 25 mg PO BID NIKKI Dextrose (D50w Syringe) 0 gm IV X1 PRN; Protocol PRN Reason: Hypoglycemia Furosemide (Lasix) 40 mg IV BID@1000,1800 NIKKI Glucagon () 1 mg IM .X1 PRN PRN Reason: Hypoglycemia Melatonin (Melatonin) 3 mg PO QHS PRN PRN PRN Reason: INSOMNIA Morphine Sulfate () 2 mg IV Q3H PRN PRN PRN Reason: Pain Score 4-10/10 Nitroglycerin (Nitrostat) 0.4 mg SUBLINGUAL Q5M PRN PRN Reason: CARDIAC/CHEST PAIN Non-Formulary Medication (Potassium Chloride [K-Tab Er]) 20 meq PO DAILY NIKKI Rivaroxaban (Xarelto) 20 mg PO DINNER NIKKI Senna/Docusate Sodium (Senokot-S, Yesenia-Colace) 2 tablet PO BID PRN PRN PRN Reason: Constipation Sodium Chloride () 10 - 40 ml IV UD PRN PRN Reason: SALINE FLUSH Assessment/Plan All Active Problems (Last Reviewed 01/25/20 @ 10:49 by Jayleen Burr NP-C) Hyponatremia (Acute) COPD exacerbation (Acute) Thrush, oral (Resolved) The patient is a 74 year old F with multiple comorbidities as listed above including chronic hypoxic respiratory failure on 2 L of oxygen on exertion and CHF came to ER with progressive worsening shortness of breath for 2 days along with lower extremity edema and chest x-ray suggestive bilateral pleural effusion consistent with chronic hypoxic respiratory failure secondary to CHF exacerbation. Significant abnormal initial ED lab work was sodium 114, chloride 77, BNP 1251, alkaline phosphatase 171. Chest x-ray was individually reviewed and shows bilateral increasing pleural effusion right more than left with bibasilar atelectasis and/or infiltrate. Twelve-lead EKG shows A. fib at 86/min, QTC 460 ms. 1. Chronic hypoxic respiratory failure secondary to mainly CHF but mild COPD exacerbation: The patient is being admitted in PCU. On Lasix 40 mg IV twice daily. CHF core measures with fluid and salt restriction, daily weight measurement, strict intake and output, beta-donovan. Hold EVELIN inhibitor and blood pressure was lower 108/67. Pulmonary consult requested. 2. Acute on chronic hyponatremia most likely hypotonic hypervolemic from CHF: Sodium is 114. She was given 100 mL of 3% sodium chloride in ER and Lasix 40 mg IV. Repeat sodium is pending and depending upon we will decide upon further IV fluid normal saline. 3. CHF exacerbation with bilateral pleural effusion: Repeat chest x-ray tomorrow a.m. Hold Xarelto if she requires thoracocentesis. Previous echo in September 2019 EF 37% with moderately severe MR, moderate. TR with RVSP 60 mm history of moderate pulmonary hypertension. This was a decrease from EF 50% in April 2018. Last thoracocentesis in September 2019 during previous admission 850 mils and was of transudate nature. 4. Mild COPD exacerbation: DuoNeb every 4 hourly. Low-dose Solu-Medrol IV, switch to prednisone tomorrow a.m. Incentive spirometry, PEP and chest physiotherapy. 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 5. Non-small cell carcinoma of lung, left upper lobe: She has CT-guided biopsy of left upper lobe mass reported non-small cell carcinoma favor adenocarcinoma consistent with lung primary. Patient completed radiotherapy about a year ago. Follows Dr. Cazares. 6. Chronic A. fib on Xarelto: Hold Xarelto. 7. Hypertension: Currently on lower side. Hold lisinopril. 8. Continued smoking cigarette/nicotine dependence: Counseled on cessation. Nicotine patch offered. 9. DVT prophylaxis: Heparin 5000 units TID. Clinical Impression(s) from Imaging Studies Chest X-Ray 04/18/20 08:39 IMPRESSION: Increasing bilateral pleural effusions right greater than left with bibasilar atelectasis and/or infiltrate. Residual infiltration in the left perihilar region although there has been improvement Inpatient E&M: 73988 Init Hosp L3
[2020-04-18 13:38] LABS: Sodium Level 115 mmol/L (136-145)
[2020-04-18] MEDS: Heparin Injection (Vial) 5,000 UNIT/ML VIAL 5000 UNIT SC ×2 (14:11→21:16)
[2020-04-18] MEDS: Ipratropium/Albuterol Sulfate 3 ML AMPUL.NEB INHALATION ×2 (14:14→19:24)
[2020-04-18 17:27] LABS: Sodium Level 116 mmol/L (136-145)
[2020-04-18] MEDS: 0.9% Saline Lock 10 ML Syringe IV ×2 (17:49→21:16)
[2020-04-18] MEDS: Carvedilol 25 MG Tablet PO (21:16)
[2020-04-19] VITALS (16 sets, daily range): BP systolic 108–143; BP diastolic 47–89; PULSE 74–98; RESP 16–20; TEMP 36.2–37; O2SAT 92–99
--- NOTE | 2020-04-19 | FLU_PTH ---
PATIENT: EUNICE BRAVO LOC: [facility] U#:[id number] AGE/SX: 74/F ROOM: [facility] RE04/18/[address]: Dr. Deshaun oCta MD : [id number] BED: 1 DIS: 04/22/2020 SPEC #: [id number] RECD: 04/19/20 09:42 STATUS: KEVIN REQ #: [id number] ELSA: 04/19/20 00:[address]: Deshaun Cota DEPT: CYTOLOGY RECD BY: Leo Smith ENTERED: 04/20/20 09:42 SP TYPE: Fluid OTHR DR: DO Dr. Tony Coles MD No Primary Care Phys Tissues: THORACIC FLUID Procedures: Special Stain Group II Surgery Specimen Level IV Cytospin Fluid HEADER OPERATION: Thoracentesis PRE-OP DIAGNOSIS: Right pleural effusion TISSUE SUBMITTED: Thoracentesis fluid for cytology DIAGNOSIS CYTOLOGY Thoracentesis fluid for cytology (cytospin and cell block): Negative for malignant cells. SJ:jayden 04/21/20 COMMENT Please make reference to previous specimens ([id number] and [id number]) CT-guided lung mass, core biopsy with diagnosis of non-small cell carcinoma, adenocarcinoma and ([id number] and [id number]) thoracentesis fluid for cytology with diagnosis of negative for malignant cells and ([id number]) right breast, lumpectomy with diagnosis of infiltrating ductal carcinoma and ([id number]) left modified radical mastectomy with diagnosis of infiltrating poorly differentiated ductal adenocarcinoma. CYTOLOGY STUDY Slides are reviewed. CYTOLOGY GROSS Received is 80 ml of yellow cloudy fluid labeled with the patient's name and and designated per the requisition as Thoracentesis. Submitted for cytology preparation including cell block. / jayden 04/20/20 TC:5 CPT: 18608, 17115
[2020-04-19 00:33] LABS: Sodium Level 116 mmol/L (136-145)
[2020-04-19] MEDS: 0.9% Normal Saline 1,000 ML 100 ML IV (01:16)
[2020-04-19] MEDS: 0.9% Saline Lock 10 ML Syringe IV ×4 (01:16→21:18)
[2020-04-19] MEDS: Ipratropium/Albuterol Sulfate 3 ML AMPUL.NEB INHALATION ×5 (03:33→19:15)
[2020-04-19] MEDS: Heparin Injection (Vial) 5,000 UNIT/ML VIAL 5000 UNIT SC ×2 (05:54→21:18)
--- NOTE | 2020-04-19 05:55 | RAD_ITS ---
STUDY: X-RAY CHEST REASON FOR EXAM: Female, 74 years old. PLEURAL EFFUSION TECHNIQUE: Single AP portable view of the chest. COMPARISON: Comparison is made with prior study dated April 18, 2020. FINDINGS: EKG electrodes are seen. Surgical clips are seen in both axillary regions. Stable small right pleural effusion with right basilar infiltrate. Blunting of the left cosmetic angle with improved aeration of the left parahilar infiltrate. There is borderline cardiomegaly. Normal mediastinum and mike. Normal visualized pulmonary arteries. There is atherosclerotic calcification of the aortic arch with tortuosity. There are diffuse degenerative changes of the visualized thoracic spine. Normal visualized ribs, clavicles, and shoulders. There is no demonstrated abnormality of the visualized soft tissue structures of the upper abdomen. RAD/Chest PA and Lateral IMPRESSION: Stable examination with the small right pleural effusion with right basilar atelectasis and/or infiltrate. Blunting of the left costophrenic angle with improved aeration of the left perihilar infiltrate. Electronically Signed: Kenneth Salinas, at 12:50 EDT , Service support ,
--- NOTE | 2020-04-19 05:55 | RAD_ITS ---
STUDY: X-RAY CHEST REASON FOR EXAM: Female, 74 years old. PLEURAL EFFUSION TECHNIQUE: Right side down decubitus view. COMPARISON: Comparison is made with prior study dated April 18, 2020. FINDINGS: There is a small right pleural effusion with right basilar infiltration.. RAD/Special CXR (Obl/Decub/A/L) IMPRESSION: Small right pleural effusion with right basilar infiltration. Electronically Signed: Kenneth Salinas, at 12:47 EDT , Service support ,
--- NOTE | 2020-04-19 05:55 | RAD_ITS ---
STUDY: X-RAY CHEST REASON FOR EXAM: Female, 74 years old. PLEURAL EFFUSION TECHNIQUE: Left side down decubitus view. COMPARISON: Comparison is made with prior study dated April 18, 2020. FINDINGS: Minimal left pleural effusion. RAD/Special CXR (Obl/Decub/A/L) IMPRESSION: Minimal left pleural effusion. Electronically Signed: Kenneth Salinas, at 12:46 EDT , Service support ,
[2020-04-19 06:52] LABS: Absolute Lymphocyte Count 0.25 X10^3/uL (0.83-4.51); Absolute Neutrophil Count 4.8 X10^3/uL (2.0-7.7); Hemoglobin 8.3 g/dL (12.0-15.0); Lymphocyte # 0.25 X10^3/ul (4.0); Lymphocyte % 4.8 % (19-41); Mean Corp Hgb Conc 29.6 g/dL (32-36); Mean Corpuscular Volume 74.3 fL (81-99); Monocyte# 0.14 X10^3/uL; Monocyte% 2.7 % (0-10); NRBC Flagged by Analyzer 0 % (0-5); Neutrophil # 4.76 X10^3/uL (2.7-7.7); Neutrophil % 92.1 % (47-70); POSITIVE DIFFERENTIAL YES; POSITIVE MORPHOLOGY YES; Platelet Count 227 K/mm3 (150-450); RBC Distribution Width CV 16.9 % (11.6-14.6); RBC Distribution Width SD 43.9 fl (35.1-43.9); Red Blood Count 3.77 M/mm3 (4.2-5.4); White Blood Count 5.2 K/mm3 (4.4-11.0)
--- NOTE | 2020-04-19 06:54 | PCM.CONS.PUL ---
Reason for Consult Date of Consultation: 04/19/20 Reason for Consultation: Pleural Effusions History of Present Illness: The patient is a 74-year-old female, with a history as outlined below, who presented to the emergency department on April 18 with worsening shortness of breath. I currently follow the patient in the pulmonary medicine clinic due to a history of COPD and non-small cell lung cancer. The patient's last pulmonary function studies from January 2018 did reveal evidence of an irreversible very severe large airways obstructive ventilatory defect with associated air trapping and reduction in diffusing capacity. A 6-minute walk test completed at that time revealed evidence of impaired walk distance without the need for supplemental oxygen. In March 2018, the patient underwent CT-guided lung biopsy of the left upper lobe, which revealed malignant cells consistent with non-small cell carcinoma, adenocarcinoma. Following a discussion with the patient's oncologist, Dr. Cazares, the patient was referred to thoracic surgery, Dr. Nunez at [facility]. However, following evaluation, she was not deemed to be appropriate for surgical resection due to the severity of her underlying obstructive lung disease. The patient subsequently completed radiation treatment at [facility] in October. The patient is currently prescribed a triple therapy inhaler regimen including Advair and Spiriva. Despite the aforementioned medical history, the patient does continue to smoke cigarettes daily. The patient is also followed by Dr. Jovel in the cardiology clinic due to a history of atrial fibrillation and underlying heart failure. On presentation to the emergency department, the patient was noted to be afebrile and hemodynamically stable. Laboratory evaluation revealed no evidence of a leukocytosis. Coagulation profile was within normal limits. Chemistry profile was notable for a sodium of 114, chloride of 77 and creatinine of 0.45. BNP was elevated to 1251. Urine analysis was unremarkable. Chest x-ray revealed bilateral pleural effusions. The patient was subsequently admitted to the progressive care unit for further management. This morning, the patient does report some improvement in her overall breathing quality. She remains on IV Lasix. She does report that her last dose of Xarelto was this past Saturday. Past Medical History Past Medical History (Chronic Problems): Chronic Problems (Last Reviewed 01/25/20 @ 10:49 by RAFAEL Conner) Chronic respiratory failure with hypoxia (Chronic) Tobacco abuse (Chronic) Tobacco abuse counseling (Chronic) Dependent edema (Chronic) Bilateral leg ulcer (Chronic) Non-ischemic cardiomyopathy (Chronic) Paroxysmal atrial fibrillation (Chronic) Acute on chronic systolic (congestive) heart failure (Chronic) Secondary pulmonary arterial hypertension (Chronic) Non-rheumatic tricuspid valve insufficiency (Chronic) Nonrheumatic mitral (valve) insufficiency (Chronic) Essential (primary) hypertension (Chronic) Lung mass (Chronic) History of breast cancer (Chronic) COPD (chronic obstructive pulmonary disease) (Chronic) Nicotine dependence (Chronic) Chronic anticoagulation (Chronic) Medical History: Medical History (Last Reviewed 01/25/20 @ 10:49 by Jayleen Burr NP-C) Bilateral leg ulcer (Chronic) L97.919, L97.929 Non-ischemic cardiomyopathy (Chronic) I42.8 Paroxysmal atrial fibrillation (Chronic) I48.0 Acute on chronic systolic (congestive) heart failure (Chronic) I50.23 Secondary pulmonary arterial hypertension (Chronic) I27.21 Non-rheumatic tricuspid valve insufficiency (Chronic) I36.1 Nonrheumatic mitral (valve) insufficiency (Chronic) I34.0 Essential (primary) hypertension (Chronic) I10 Lung mass (Chronic) R91.8 History of breast cancer (Chronic) Z85.3 COPD (chronic obstructive pulmonary disease) (Chronic) J44.9 Nicotine dependence (Chronic) F17.200 Debility R53.81 Dependence on supplemental oxygen Z99.81 Dependent edema R60.9 Immobility Z74.09 Leg edema, left R60.0 Leg edema, right R60.0 Leg swelling M79.89 Lumbar disc disease M51.9 Suspected chronic obstructive pulmonary disease based on initial evaluation J44.9 Tobacco abuse Z72.0 Tobacco abuse counseling Z71.6 New onset A. fib with RVR Thrush, oral (Resolved) B37.0 Acute CHF (Inactive) I50.9 Allergies albuterol sulfate [From Combivent] Allergy (Verified 04/18/20 08:22) Swelling ipratropium bromide [From Combivent] Allergy (Verified 04/18/20 08:22) Swelling metoprolol Allergy (Verified 04/18/20 08:22) Laryngospasms Sulfa (Sulfonamide Antibiotics) Allergy (Verified 04/18/20 08:22) Rash beclomethasone [From Qvar] Adverse Reaction (Verified 04/18/20 08:22) COUGHING benzalkonium chloride [From Merthiolate (benzalkonium)] Adverse Reaction (Verified 04/18/20 08:22) Rash codeine Adverse Reaction (Verified 04/18/20 08:22) Chest tightness chest hurts doxycycline Adverse Reaction (Verified 04/18/20 08:22) Abd cramps/diarrhea formoterol fumarate [From Dulera] Adverse Reaction (Verified 04/18/20 08:22) PT UNSURE OF REACTION hydrochlorothiazide Adverse Reaction (Verified 04/18/20 08:22) PT UNSURE OF REACTION ibuprofen [From Advil] Adverse Reaction (Verified 04/18/20 08:22) PT UNSURE OF REACTION iodine Adverse Reaction (Verified 04/18/20 08:22) Itching merbromin Adverse Reaction (Verified 04/18/20 08:22) PT UNSURE OF REACTION mometasone furoate [From Dulera] Adverse Reaction (Verified 04/18/20 08:22) PT UNSURE OF REACTION oseltamivir [From Tamiflu] Adverse Reaction (Verified 04/18/20 08:22) uterine pain prednisone Adverse Reaction (Verified 04/18/20 08:22) Abd cramps/diarrhea PLASTIC TAPE Allergy (Uncoded 04/18/20 08:22) Rash Home Medications: Ambulatory Orders Medication Instructions Recorded Albuterol Inhaler [Ventolin Hfa] 1 - 2 puff INHALATION Q4H PRN PRN 10/16/16 furosemide 40 mg tablet 40 mg PO BID #120 tab 07/23/19 potassium chloride 20 mEq 20 meq PO DAILY #90 tab 07/23/19 tablet,extended release Multivit-Min/Iron/Folic/Lutein 1 tab PO DAILY 10/05/19 [Centrum Silver Women Tablet] Handicap Placard #1 ea 10/22/19 fluticasone propionate 230 2 puff INHALATION BID #1 device 01/25/20 mcg-salmeterol 21 mcg/actuation HFA inhaler rivaroxaban 20 mg tablet 20 mg PO DINNER #30 tab 01/25/20 tiotropium bromide 2.5 2 puff INHALATION BID #4 g 01/25/20 mcg/actuation mist for inhalation quinapril 20 mg tablet 20 mg PO BID #180 tab 02/03/20 carvedilol 25 mg tablet 25 mg PO BID #180 tab 02/25/20 Surgical History: Surgical History (Last Reviewed 01/25/20 @ 10:49 by Jayleen Burr NP-C) History of left heart catheterization Onset Date: 11/09/19 Z98.890 History of left mastectomy Z90.12 History of lumpectomy of right breast Z98.890 History of tubal ligation Z98.51 polyp removal uterus Surgical History: mastectomy, - - The patient has previously undergone a left mastectomy, right breast lumpectomy, and resection of a left pulmonary nodule. She also has undergone tubal ligation. She is a Ab0. Psychiatric History: No pertinent psych hx [employer] History: No pertinent [employer] history Smoking Status: Current some day smoker - *Family History Maternal Family History: Family History (Last Reviewed 01/25/20 @ 10:49 by RAFAEL Conner) Father Emphysema of lung Sister Cancer History Items: No pertinent history Paternal Family History: Family History (Last Reviewed 01/25/20 @ 10:49 by RAFAEL Conner) Father Emphysema of lung Sister Cancer History Items: No pertinent history Review of Systems Constitutional: Denies: Chills, Fever Eyes: Denies: Blurred vision, Double vision HEENT: Denies: Head Aches, Sinus Congestion, Sinus Drainage Cardiovascular: Denies: Chest Pain, Palpitations Respiratory: Reports: Cough, Shortness of Breath Gastrointestinal: Denies: Abdominal Pain, Nausea, Vomiting Genitourinary: Denies: Dysuria Musculoskeletal: Denies: Joint Pain, Joint Tenderness Skin: Denies: Rash, Wounds Neurological: Denies: Numbness, Tingling, Focal weakness Psychiatric: Denies: Anxiety, Depression, Homicidal Ideations, Suicidal Ideations Hematologic/ Lymphatic: Reports: Anemia Patient Problems: Active and Suspected Problems (Last Reviewed 01/25/20 @ 10:49 by RAFAEL Conner) Hyponatremia (Acute) COPD exacerbation (Acute) Objective: The patient's most recent lab work, culture data and imaging studies have all been personally reviewed. Surface echocardiogram from October 2019 revealed mild concentric LVH with an ejection fraction of 50% and stage III diastolic dysfunction. - Physical Exam Vitals/I&O's: Vital Signs Temp Pulse Resp BP Pulse Ox 97.8 F 92 20 H 143/89 H 97 04/19/20 03:10 04/19/20 03:33 04/19/20 03:33 04/19/20 03:10 04/19/20 03:10 Oxygen Flow Rate (L/min) 2 Oxygen Delivery Method Nasal Cannula Weight: 197 lb 15.602 oz Body Mass Index (BMI) 36.1 Intake and Output for Last 24 Hours 04/17/20 04/18/20 04/19/20 23:59 23:59 23:59 Intake Total 749.17 / 749.17 220 / 220 Output Total 2049 / 2049 200 / 200 Balance -1300.83 / -1300.83 General: Alert, Cooperative, No apparent distress, - - Sitting in bedside recliner. is present at the bedside. HEENT: Atraumatic, Normocephalic Oral: No Gingival or Mucosal Lesions/ Ulcerations Neck: Supple, No Nodes, Trachea Midline Lungs: Diminished, Rales, Wheezes Cardiovascular: Normal S1, Normal S2, Irregular Rate, Murmur Abdomen: Bowel Sounds Present, Soft, Non Tender Extremities: No clubbing, No cyanosis, Edema Skin: No breakdown Musculoskeletal: No Tenderness to Palpation of Joints or Extremities Lymphatic: No Cervical, Supraclavicular, or Inguinal Adenopathy Neurological: Neuro grossly intact Psych/Mental Status: Flat Affect Labs (Last 48 Hours) 04/18/20 04/18/20 04/18/20 08:42 08:42 08:42 WBC 6.7 RBC 4.24 Hgb 9.2 L Hct 31.6 L MCV 74.5 L MCH 21.7 L MCHC 29.1 L RDW Std Deviation 43.4 RDW Coeff of Malini 16.2 H Plt Count 261 MPV 8.6 Immature Gran % (Auto) 0.600 Neut % (Auto) 83.4 H Lymph % (Auto) 5.8 L [place] % (Auto) 10.1 H Eos % (Auto) 0.0 Baso % (Auto) 0.1 Absolute Neuts (auto) 5.6 Absolute Lymphs (auto) 0.39 L Nucleated RBC % 0 PT 17.3 H INR 1.5 APTT 36.2 Sodium 114 L* Potassium 4.1 Chloride 77 L Carbon Dioxide 32.0 Anion Gap 5 BUN 7 Creatinine 0.45 L Estim Creat Clear Calc 41.45 Est GFR (MDRD) Af Amer 177 Est GFR (MDRD) Non-Af 146 BUN/Creatinine Ratio 15.7 Glucose 109 H Calcium 9.0 Magnesium Total Bilirubin 1.50 H AST 22 ALT 22 Alkaline Phosphatase 171 H Troponin I < 0.015 B-Natriuretic Peptide Total Protein 7.4 Albumin 3.6 Globulin 3.8 Albumin/Globulin Ratio 0.9 Triglycerides Cholesterol LDL Cholesterol VLDL Cholesterol HDL Cholesterol TSH Urine Color Urine Clarity Urine pH Ur Specific [place] Urine Protein Urine Glucose (UA) Urine Ketones Urine Occult Blood Urine Nitrite Urine Bilirubin Urine Urobilinogen Ur Leukocyte Esterase Urine RBC Urine WBC Ur Squamous Epith Cells Urine Bacteria Urine Mucus 04/18/20 04/18/20 04/18/20 08:42 08:42 09:20 WBC RBC Hgb Hct MCV MCH MCHC RDW Std Deviation RDW Coeff of Malini Plt Count MPV Immature Gran % (Auto) Neut % (Auto) Lymph % (Auto) [place] % (Auto) Eos % (Auto) Baso % (Auto) Absolute Neuts (auto) Absolute Lymphs (auto) Nucleated RBC % PT INR APTT Sodium Potassium Chloride Carbon Dioxide Anion Gap BUN Creatinine Estim Creat Clear Calc Est GFR (MDRD) Af Amer Est GFR (MDRD) Non-Af BUN/Creatinine Ratio Glucose Calcium Magnesium 1.7 Total Bilirubin AST ALT Alkaline Phosphatase Troponin I Cancelled B-Natriuretic Peptide 1251.1 H Total Protein Albumin Globulin Albumin/Globulin Ratio Triglycerides Cholesterol LDL Cholesterol VLDL Cholesterol HDL Cholesterol TSH Urine Color Yellow Urine Clarity Sl. Cloudy Urine pH 6.5 Ur Specific [place] 1.015 Urine Protein Negative Urine Glucose (UA) Normal Urine Ketones 5 H Urine Occult Blood Negative Urine Nitrite Negative Urine Bilirubin Negative Urine Urobilinogen 1 H Ur Leukocyte Esterase Negative Urine RBC 0 SEEN Urine WBC 0 SEEN Ur Squamous Epith Cells 0-5 SEEN Urine Bacteria 0 SEEN Urine Mucus 0 SEEN 04/18/20 04/18/20 04/18/20 12:50 16:15 16:15 WBC RBC Hgb Hct MCV MCH MCHC RDW Std Deviation RDW Coeff of Malini Plt Count MPV Immature Gran % (Auto) Neut % (Auto) Lymph % (Auto) [place] % (Auto) Eos % (Auto) Baso % (Auto) Absolute Neuts (auto) Absolute Lymphs (auto) Nucleated RBC % PT INR APTT Sodium 115 L* 116 L* Potassium Chloride Carbon Dioxide Anion Gap BUN Creatinine Estim Creat Clear Calc Est GFR (MDRD) Af Amer Est GFR (MDRD) Non-Af BUN/Creatinine Ratio Glucose Calcium Magnesium Total Bilirubin AST ALT Alkaline Phosphatase Troponin I 0.022 < 0.015 B-Natriuretic Peptide Total Protein Albumin Globulin Albumin/Globulin Ratio Triglycerides Cholesterol LDL Cholesterol VLDL Cholesterol HDL Cholesterol TSH Urine Color Urine Clarity Urine pH Ur Specific [place] Urine Protein Urine Glucose (UA) Urine Ketones Urine Occult Blood Urine Nitrite Urine Bilirubin Urine Urobilinogen Ur Leukocyte Esterase Urine RBC Urine WBC Ur Squamous Epith Cells Urine Bacteria Urine Mucus 04/19/20 04/19/20 04/19/20 00:05 06:41 06:41 WBC RBC Hgb Hct MCV MCH MCHC RDW Std Deviation RDW Coeff of Malini Plt Count MPV Immature Gran % (Auto) Neut % (Auto) Lymph % (Auto) [place] % (Auto) Eos % (Auto) Baso % (Auto) Absolute Neuts (auto) Absolute Lymphs (auto) Nucleated RBC % PT INR APTT Sodium 116 L* Pending Potassium Pending Chloride Pending Carbon Dioxide Pending Anion Gap Pending BUN Pending Creatinine Pending Estim Creat Clear Calc Est GFR (MDRD) Af Amer Pending Est GFR (MDRD) Non-Af Pending BUN/Creatinine Ratio Pending Glucose Pending Calcium Pending Magnesium Total Bilirubin AST ALT Alkaline Phosphatase Troponin I B-Natriuretic Peptide Pending Total Protein Albumin Globulin Albumin/Globulin Ratio Triglycerides Pending Cholesterol Pending LDL Cholesterol Pending VLDL Cholesterol Pending HDL Cholesterol Pending TSH Pending Urine Color Urine Clarity Urine pH Ur Specific [place] Urine Protein Urine Glucose (UA) Urine Ketones Urine Occult Blood Urine Nitrite Urine Bilirubin Urine Urobilinogen Ur Leukocyte Esterase Urine RBC Urine WBC Ur Squamous Epith Cells Urine Bacteria Urine Mucus 04/19/20 06:41 WBC Pending RBC Pending Hgb Pending Hct Pending MCV Pending MCH Pending MCHC Pending RDW Std Deviation Pending RDW Coeff of Malini Pending Plt Count Pending MPV Immature Gran % (Auto) Neut % (Auto) Pending Lymph % (Auto) [place] % (Auto) Eos % (Auto) Baso % (Auto) Absolute Neuts (auto) Pending Absolute Lymphs (auto) Nucleated RBC % PT INR APTT Sodium Potassium Chloride Carbon Dioxide Anion Gap BUN Creatinine Estim Creat Clear Calc Est GFR (MDRD) Af Amer Est GFR (MDRD) Non-Af BUN/Creatinine Ratio Glucose Calcium Magnesium Total Bilirubin AST ALT Alkaline Phosphatase Troponin I B-Natriuretic Peptide Total Protein Albumin Globulin Albumin/Globulin Ratio Triglycerides Cholesterol LDL Cholesterol VLDL Cholesterol HDL Cholesterol TSH Urine Color Urine Clarity Urine pH Ur Specific [place] Urine Protein Urine Glucose (UA) Urine Ketones Urine Occult Blood Urine Nitrite Urine Bilirubin Urine Urobilinogen Ur Leukocyte Esterase Urine RBC Urine WBC Ur Squamous Epith Cells Urine Bacteria Urine Mucus Clinical Impression(s) from Imaging Studies Chest X-Ray 04/18/20 08:39 IMPRESSION: Increasing bilateral pleural effusions right greater than left with bibasilar atelectasis and/or infiltrate. Residual infiltration in the left perihilar region although there has been improvement. Electronically Signed: Kenneth Brad, at 9:37 EDT , Service support , Current Medications Acetaminophen (Tylenol) 650 mg PO Q6H PRN PRN PRN Reason: Pain Score 1-10/Temp > 100.7 F Al Hydroxide/Mg Hydroxide (Mylanta Ii) 30 ml PO Q6H PRN PRN PRN Reason: Gastric Burning Albuterol Sulfate (Ventolin Aerosols) 2.5 mg INHALATION Q2H PRN PRN PRN Reason: SOB/Wheezing Albuterol/Ipratropium (Duoneb) 3 ml INHALATION Q4HWA.RT [facility] Last Admin: 04/19/20 03:33 Dose: 3 ml Documented by: Carvedilol (Coreg) 25 mg PO BID [facility] Last Admin: 04/18/20 21:16 Dose: 25 mg Documented by: Dextrose (D50w Syringe) 0 gm IV X1 PRN; Protocol PRN Reason: Hypoglycemia Furosemide (Lasix) 40 mg IV BID@1000,1800 [facility] Last Admin: 04/18/20 17:49 Dose: 40 mg Documented by: Glucagon () 1 mg IM .X1 PRN PRN Reason: Hypoglycemia Heparin Sodium (Porcine) (Heparin Na) 5,000 unit SC Q8 [facility] Last Admin: 04/19/20 05:54 Dose: 5,000 unit Documented by: Sodium Chloride () 1,000 mls @ 100 mls/hr IV .Q10H [facility] Last Admin: 04/19/20 01:16 Dose: 100 mls/hr Documented by: Melatonin (Melatonin) 3 mg PO QHS PRN PRN PRN Reason: INSOMNIA Methylprednisolone (Solu-Medrol) 40 mg IV Q12 [facility] Last Admin: 04/18/20 21:15 Dose: 40 mg Documented by: Morphine Sulfate () 2 mg IV Q3H PRN PRN PRN Reason: Pain Score 4-10/10 Nicotine (Nicoderm Cq (Pbkc)) 21 mg TRANSDERM. DAILY [facility] Nitroglycerin (Nitrostat) 0.4 mg SUBLINGUAL Q5M PRN PRN Reason: CARDIAC/CHEST PAIN Potassium Chloride (K-Dur) 20 meq PO DAILY NIKKI Senna/Docusate Sodium (Senokot-S, Yesenia-Colace) 2 tablet PO BID PRN PRN PRN Reason: Constipation Sodium Chloride () 10 - 40 ml IV UD PRN PRN Reason: SALINE FLUSH Last Admin: 04/19/20 01:16 Dose: 10 ml Documented by: Assessment/Plan All Active Problems (Last Reviewed 01/25/20 @ 10:49 by Jayleen Burr, VERIFY REP-C) Hyponatremia (Acute) COPD exacerbation (Acute) Thrush, oral (Resolved) RECOMMENDATIONS: 1. Proceed with ultrasound-guided thoracentesis. 2. Send pleural fluid studies for LDH, total protein, cell count, cultures and cytology. Orders have been placed. 3. Continue scheduled diuretic therapy as tolerated by hemodynamics and renal function. 4. Continue scheduled bronchodilator therapy. 5. Wean supplemental oxygen to maintain saturations at or above 90%. 6. Encourage incentive spirometer use and mobilize patient as tolerated. 7. Continue nicotine replacement therapy. IMPRESSIONS: 1. Acute hypoxemic respiratory insufficiency Likely secondary to bilateral pleural effusions in the setting of decompensated heart failure. Agree with attempts at aggressive diuresis. Xarelto remains on hold in preparation for possible ultrasound-guided thoracentesis. Check serum LDH and total protein levels. Send pleural fluid studies for LDH, total protein, glucose, cell count, cultures and cytology. Wean supplemental oxygen to maintain saturations at or above 90%. Encourage incentive spirometer use and mobilize patient as tolerated. 2. Baseline severe COPD Continue scheduled bronchodilators and inhaled corticosteroid. I do not see an indication for systemic corticosteroids at this time. 3. Non-small cell carcinoma of the lung The patient is currently under the management of [facility] oncology. 4. Continuous tobacco dependency I personally spent 6 minutes discussing the deleterious effects of continued tobacco use with the patient, including modalities which could be utilized to achieve a smoke-free lifestyle. The patient remains pre-contemplative. Nicotine replacement therapy will be continued while admitted to the hospital. 5. Paroxysmal atrial fibrillation/history of breast CA/hypertension/hyponatremia/hypokalemia Complicates care, management, recovery and prognosis. Suspect electrolyte abnormalities are related to state of hypervolemia. Check serum and urine osmolality along with urine sodium level. This note was generated with [employer] dictation software. It may contain incorrect words, spelling, and punctuation that were not noted in checking the note before signing. Inpatient E&M: 65251 Init Hosp L3 - Behavior Interventions Behavior Intervention: 94522 Smoking Cessation 3-10 min
[2020-04-19 07:03] LABS: Differential Indicated SCAN CRITERIA MET
[2020-04-19 07:33] LABS: Anion Gap 7 (5-15); BUN 6 mg/dL (7-18); BUN/Creat Ratio 16.6 RATIO (10-20); Calcium,Total 8.5 mg/dL (8.5-10.1); Chloride 78 mmol/L (98-107); Cholesterol 104 mg/dL (200); Creatinine, Serum 0.36 mg/dL (0.55-1.02); EST Glomerular Filtration Rate 186 mL/min (>60); Est Glom Filt Rate - Afr Amer 226 mL/min (>60); Estimated Creatinine Clearance 41.45 ml/min; Glucose 124 mg/dL (74-106); High Density Lipoprotein 35 mg/dL; Potassium 3.6 mmol/L (3.5-5.1); Sodium Level 116 mmol/L (136-145); Thyroid Stim Hormone (TSH) 1.58 uIU/mL (0.358-3.74); Triglycerides 45 mg/dL; Very Low Density Lipoprotein 9 mg/dL (5-40)
[2020-04-19] MEDS: Furosemide 40 MG/4 ML Vial IV ×2 (09:03→17:04)
[2020-04-19] MEDS: Carvedilol 25 MG Tablet PO ×2 (09:03→21:18)
[2020-04-19 09:04] LABS: BNP,B-Type NATRIURETIC PEPTIDE 1047.7 pg/mL (0-100)
--- NOTE | 2020-04-19 09:10 | PCM.PN.HOSP ---
Patient Problems: Active and Suspected Problems (Last Reviewed 01/25/20 @ 10:49 by RAFAEL Conner) Hyponatremia (Acute) COPD exacerbation (Acute) Reason for Visit: Acute hypoxic respiratory insufficiency, CHF exacerbation and COPD exacerbation, chronic severe hypotonic hypervolemic hyponatremia Objective: Patient states her shortness of breath is better. Still mild cough with thin whitish sputum. No fever or chills. Blood pressure and heart rate are acceptable. On physical exam General: Alert, Oriented x3, Cooperative HEENT: Atraumatic, PERRLA, EOMI, Normocephalic Oral: No Gingival or Mucosal Lesions/ Ulcerations, Dry Mucosa Neck: Supple, No JVD, Negative Carotid Bruits Lungs: Air entry severely diminished in bilateral lower lungs, right more than left. Stony dullness present on the right lung base below fifth intercostal space posteriorly, Bilateral rhonchi, wheezing and egophony Cardiovascular: Irregular Rate - Rate is controlled., Murmur - Systolic murmur present over left lower sternal border. Abdomen: Bowel Sounds Present, Soft, Non Tender, Non-Distended Extremities: Capillary Refill Less than 3 Seconds, Edema - Bilateral lower extremity edema with lymphedema. Skin: No rashes, No breakdown Musculoskeletal: No Tenderness to Palpation of Joints or Extremities Neurological: Cranial nerves II-XII grossly intact, Deep Tendon Reflexes 2+/4 and Symmetrical, Neuro grossly intact, Mild lower extremity weakness secondary to lymphedema and edema. Physical deconditioning Psych/Mental Status: Normal Affect, Appropriate Vitals/I&O's: Vital Signs Temp Pulse Resp BP Pulse Ox 97.4 F L 74 18 143/74 H 99 04/19/20 09:00 04/19/20 09:00 04/19/20 09:00 04/19/20 09:00 04/19/20 09:00 Oxygen Flow Rate (L/min) 2 Oxygen Delivery Method Nasal Cannula Weight: 197 lb 15.602 oz Body Mass Index (BMI) 36.1 Intake and Output for Last 24 Hours 04/17/20 04/18/20 04/19/20 23:59 23:59 23:59 Intake Total 749.17 / 749.17 910 / 910 Output Total 2049 / 2049 200 / 200 Balance -1300.83 / -1300.83 710 / 710 Laboratory Results 04/18/20 08:42: PT 17.3 H, INR 1.5, APTT 36.2 04/18/20 08:42: Sodium 114 L*, Potassium 4.1, Chloride 77 L, Carbon Dioxide 32.0, Anion Gap 5, BUN 7, Creatinine 0.45 L, Estim Creat Clear Calc 41.45, Est GFR (MDRD) Af Amer 177, Est GFR (MDRD) Non-Af 146, BUN/Creatinine Ratio 15.7, Glucose 109 H, Calcium 9.0, Total Bilirubin 1.50 H, AST 22, ALT 22, Alkaline Phosphatase 171 H, Troponin I < 0.015, Total Protein 7.4, Albumin 3.6, Globulin 3.8, Albumin/Globulin Ratio 0.9 04/18/20 08:42: B-Natriuretic Peptide 1251.1 H 04/18/20 08:42: Magnesium 1.7, Troponin I Cancelled 04/18/20 09:20: Urine Color Yellow, Urine Clarity Sl. Cloudy, Urine pH 6.5, Ur Specific [place] 1.015, Urine Protein Negative, Urine Glucose (UA) Normal, Urine Ketones 5 H, Urine Occult Blood Negative, Urine Nitrite Negative, Urine Bilirubin Negative, Urine Urobilinogen 1 H, Ur Leukocyte Esterase Negative, Urine RBC 0 SEEN, Urine WBC 0 SEEN, Ur Squamous Epith Cells 0-5 SEEN, Urine Bacteria 0 SEEN, Urine Mucus 0 SEEN 04/18/20 12:50: Sodium 115 L*, Troponin I 0.022 04/18/20 16:15: Troponin I < 0.015 04/18/20 16:15: Sodium 116 L* 04/19/20 00:05: Sodium 116 L* 04/19/20 06:41: Sodium 116 L*, Potassium 3.6, Chloride 78 L, Carbon Dioxide 31.0, Anion Gap 7, BUN 6 L, Creatinine 0.36 L, Estim Creat Clear Calc 41.45, Est GFR (MDRD) Af Amer 226, Est GFR (MDRD) Non-Af 186, BUN/Creatinine Ratio 16.6, Glucose 124 H, Calcium 8.5, Triglycerides 45, Cholesterol 104, LDL Cholesterol 60, VLDL Cholesterol 9, HDL Cholesterol 35 L, TSH 1.58 04/19/20 06:41: B-Natriuretic Peptide 1047.7 H 04/19/20 06:41: WBC 5.2, RBC 3.77 L, Hgb 8.3 L, Hct 28.0 L, MCV 74.3 L, MCH 22.0 L, MCHC 29.6 L, RDW Std Deviation 43.9, RDW Coeff of Malini 16.9 H, Plt Count 227, MPV 9.0, Immature Gran % (Auto) 0.400, Neut % (Auto) 92.1 H, Lymph % (Auto) 4.8 L, [place] % (Auto) 2.7, Eos % (Auto) 0.0, Baso % (Auto) 0.0, Absolute Neuts (auto) 4.8, Absolute Lymphs (auto) 0.25 L, Nucleated RBC % 0 Current Medications Acetaminophen (Tylenol) 650 mg PO Q6H PRN PRN PRN Reason: Pain Score 1-10/Temp > 100.7 F Al Hydroxide/Mg Hydroxide (Mylanta Ii) 30 ml PO Q6H PRN PRN PRN Reason: Gastric Burning Albuterol Sulfate (Ventolin Aerosols) 2.5 mg INHALATION Q2H PRN PRN PRN Reason: SOB/Wheezing Albuterol/Ipratropium (Duoneb) 3 ml INHALATION Q4HWA.RT [facility] Last Admin: 04/19/20 07:28 Dose: 3 ml Documented by: Carvedilol (Coreg) 25 mg PO BID [facility] Last Admin: 04/18/20 21:16 Dose: 25 mg Documented by: Dextrose (D50w Syringe) 0 gm IV X1 PRN; Protocol PRN Reason: Hypoglycemia Furosemide (Lasix) 40 mg IV BID@1000,1800 [facility] Last Admin: 04/18/20 17:49 Dose: 40 mg Documented by: Glucagon () 1 mg IM .X1 PRN PRN Reason: Hypoglycemia Heparin Sodium (Porcine) (Heparin Na) 5,000 unit SC Q8 [facility] Last Admin: 04/19/20 05:54 Dose: 5,000 unit Documented by: Melatonin (Melatonin) 3 mg PO QHS PRN PRN PRN Reason: INSOMNIA Methylprednisolone (Solu-Medrol) 40 mg IV Q12 [facility] Last Admin: 04/18/20 21:15 Dose: 40 mg Documented by: Morphine Sulfate () 2 mg IV Q3H PRN PRN PRN Reason: Pain Score 4-10/10 Nicotine (Nicoderm Cq (Pbkc)) 21 mg TRANSDERM. DAILY NIKKI Nitroglycerin (Nitrostat) 0.4 mg SUBLINGUAL Q5M PRN PRN Reason: CARDIAC/CHEST PAIN Potassium Chloride (K-Dur) 20 meq PO DAILY NIKKI Senna/Docusate Sodium (Senokot-S, Yesenia-Colace) 2 tablet PO BID PRN PRN PRN Reason: Constipation Sodium Chloride () 10 - 40 ml IV UD PRN PRN Reason: SALINE FLUSH Last Admin: 04/19/20 01:16 Dose: 10 ml Documented by: STROKE Vital Signs/Narrative: Vital Signs Temp Pulse Resp BP Pulse Ox 04/19/20 09:00 97.4 F L 74 18 143/74 H 99 04/19/20 07:28 98 20 H 99 04/19/20 06:54 88 Medical Necessity - Tobacco Use Smoking Status: Current some day smoker Assessment/Plan All Active Problems (Last Reviewed 01/25/20 @ 10:49 by Jayleen Burr, LO[employer]PERATIONS MANAGER-C) Hyponatremia (Acute) COPD exacerbation (Acute) Thrush, oral (Resolved) The patient is a 74 year old F with multiple comorbidities as listed above including chronic hypoxic respiratory failure on 2 L of oxygen on exertion and CHF came to ER with progressive worsening shortness of breath for 2 days along with lower extremity edema and chest x-ray suggestive bilateral pleural effusion consistent with chronic hypoxic respiratory failure secondary to CHF exacerbation. Significant abnormal initial ED lab work was sodium 114, chloride 77, BNP 1251, alkaline phosphatase 171. Chest x-ray was individually reviewed and shows bilateral increasing pleural effusion right more than left with bibasilar atelectasis and/or infiltrate. Twelve-lead EKG shows A. fib at 86/min, QTC 460 ms. 1. Chronic hypoxic respiratory failure secondary to mainly CHF but mild COPD exacerbation: The patient is being admitted in PCU. On Lasix 40 mg IV twice daily. CHF core measures with fluid and salt restriction, daily weight measurement, strict intake and output, beta-donovan. Hold EVELIN inhibitor and blood pressure was lower 108/67. 2. Acute on chronic hyponatremia most likely hypotonic hypervolemic from CHF: Sodium is 114. She was given 100 mL of 3% sodium chloride in ER and Lasix 40 mg IV. 04/19: Patient was given about 150 mL of 3% sodium chloride on 04/18 but he still did not show good response, sodium went from 114-116. At night, night hospital started on normal saline 100 mils per hour which was discontinued in the morning. Subsequently started on sodium chloride tablet after discussion with pharmacist. Nephrology consult for further comanagement. Urine osmolality 247, sodium 81, potassium 23, chloride 101. Serum osmolality 235. 3. CHF exacerbation with bilateral pleural effusion: Repeat chest x-ray tomorrow a.m. Hold Xarelto if she requires thoracocentesis. Previous echo in September 2019 EF 37% with moderately severe MR, moderate. TR with RVSP 60 mm history of moderate pulmonary hypertension. This was a decrease from EF 50% in April 2018. Last thoracocentesis in September 2019 during previous admission 850 mils and was of transudate nature. 04/19: Discussed with the proposal consultant. Advised to proceed with ultrasound-guided thoracocentesis. Pleural fluid for chemistry, cell count culture and cytology was done. As per lights criteria, pleural fluid analysis is transudate. Total WBC count 108, polymorph 7%, mononuclear 93%. Pleural fluid Gram stain no organism 4. Mild COPD exacerbation: DuoNeb every 4 hourly. Low-dose Solu-Medrol IV, switch to prednisone tomorrow a.m. Incentive spirometry, PEP and chest physiotherapy. 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 04/19 on a scheduled bronchodilator. Incentive spirometry, pep, Mucinex and bronchopulmonary hygiene. 5. Non-small cell carcinoma of lung, left upper lobe: She has CT-guided biopsy of left upper lobe mass reported non-small cell carcinoma favor adenocarcinoma consistent with lung primary. Patient completed radiotherapy about a year ago. Follows Dr. Cazares. 6. Chronic A. fib on Xarelto: 7. Hypertension: Currently on lower side. Hold lisinopril. 8. Continued smoking cigarette/nicotine dependence: Counseled on cessation. Nicotine patch offered. 9. DVT prophylaxis: Heparin 5000 units TID. Total time of the visit including total time spent in counseling or coordination of care, (more than 50% of the total time, spent in obtaining medical information from nurses and other ancillary care providers), , review of labs and imaging is 30 minutes Microbiology Past 72 Hours 04/19/20 13:15 Fluid - Thoracentesis Fluid Gram Stain - Final Laboratory Results 04/18/20 16:15: Troponin I < 0.015 04/18/20 16:15: Sodium 116 L* 04/19/20 00:05: Sodium 116 L* 04/19/20 06:41: Sodium 116 L*, Potassium 3.6, Chloride 78 L, Carbon Dioxide 31.0, Anion Gap 7, BUN 6 L, Creatinine 0.36 L, Estim Creat Clear Calc 41.45, Est GFR (MDRD) Af Amer 226, Est GFR (MDRD) Non-Af 186, BUN/Creatinine Ratio 16.6, Glucose 124 H, Calcium 8.5, Triglycerides 45, Cholesterol 104, LDL Cholesterol 60, VLDL Cholesterol 9, HDL Cholesterol 35 L, TSH 1.58 04/19/20 06:41: B-Natriuretic Peptide 1047.7 H 04/19/20 06:41: WBC 5.2, RBC 3.77 L, Hgb 8.3 L, Hct 28.0 L, MCV 74.3 L, MCH 22.0 L, MCHC 29.6 L, RDW Std Deviation 43.9, RDW Coeff of Malini 16.9 H, Plt Count 227, MPV 9.0, Immature Gran % (Auto) 0.400, Neut % (Auto) 92.1 H, Lymph % (Auto) 4.8 L, [place] % (Auto) 2.7, Eos % (Auto) 0.0, Baso % (Auto) 0.0, Absolute Neuts (auto) 4.8, Absolute Lymphs (auto) 0.25 L, Nucleated RBC % 0 04/19/20 06:41: Lactate Dehydrogenase 153, Total Protein 6.5, Globulin 3.4, Albumin/Globulin Ratio 0.9 04/19/20 06:41: Serum Osmolality 235 L 04/19/20 12:10: U Random Total Protein < 6.0 04/19/20 12:10: Urine Creatinine < 13.00 04/19/20 12:10: Urine Osmolality 247 04/19/20 12:10: Ur Random Sodium 81, Urine Potassium 23.0, Urine Chloride 101 04/19/20 13:15: Fluid Glucose 127 H, Fluid Total Protein 3.0, Fluid LDH 56 04/19/20 13:15: Fluid Source THORACENTESIS, Fluid Color YELLOW, Fluid Appearance CLEAR, Fluid WBC 0.108, Fluid RBC 0.003, Fluid Tot Cell Count 0.159 H, Fld Polynuclear WBCs # 0.008, Fld Polynuclear WBCs % 7.4, Fluid Mononuclear WBCs 0.100, Fld Mononuclear WBCs % 92.6, Fluid Neutrophils 6, Fluid Lymphocytes 6, Fluid Macrophages 88, Fl Pathologist Comment May follow, Fluid Comment 2 SEE COMMENT 04/19/20 13:15: Miscellaneous Cytology Pending Clinical Impression(s) from Imaging Studies Chest X-Ray 04/18/20 08:39 IMPRESSION: Increasing bilateral pleural effusions right greater than left with bibasilar atelectasis and/or infiltrate. Residual infiltration in the left perihilar region although there has been improvement Inpatient E&M: 29255 Subs Hosp L3
--- NOTE | 2020-04-19 10:32 | US_ITS ---
PROCEDURE: ULTRASOUND GUIDED THORACENTESIS. DATE: April 19, 2020. INDICATION: Female, 74 years old. Right pleural effusion. PHYSICIAN: Kenneth Salinas M.D. PROCEDURE: The risks, benefits, and alternatives to the procedure were explained to the patient. The specific risks of bleeding, infection, and pneumothorax requiring chest tube insertion were discussed and accepted. Written informed consent was obtained. Ultrasonographic evaluation of the right lower pleural space was carried out. An adequate pocket was identified. The patient was placed in the sitting, upright position. The overlying skin was prepped and draped in sterile fashion. 1% lidocaine was administered subcutaneously for local anesthesia. Under ultrasound guidance, a 5 Syrian thoracentesis needle/catheter system was advanced into the right posterior lower pleural fluid collection. Approximately 1150 mL of melinda-colored fluid was drained. The catheter was removed, and a sterile dressing was applied. A specimen was collected and sent to the laboratory for analysis, as requested by the referring clinician. The patient tolerated the procedure well. A chest x-ray was ordered. US/Thoracentesis W US IMPRESSION: Ultrasound-guided right thoracentesis. Electronically Signed: Kenneth Salinas, at 14:06 EDT , Service support ,
[2020-04-19 11:24] LABS: Osmolality, Serum 235 mOsm/KG (280-301)
[2020-04-19 11:32] LABS: ALB/GLOB Ratio 0.9 RATIO (0.9-2.4); Globulin 3.4 g/dL (2.2-4.2); LDH 153 U/L (84-246); Protein, Total 6.5 g/dL (6.4-8.2)
[2020-04-19 12:32] LABS: Urine Chloride 101 mmol/L (Not Establ.); Urine Sodium 81 mmol/L (Not Establ.)
[2020-04-19 12:38] LABS: Protein, Urine (Random) < 6.0 mg/dL (<11.9)
[2020-04-19 12:44] LABS: Creatinine, Urine < 13.00 mg/dL (NO RANGE EST.)
[2020-04-19 12:54] LABS: Osmolality, Urine 247 mOsm/KG
--- NOTE | 2020-04-19 13:20 | RAD_ITS ---
STUDY: X-RAY CHEST REASON FOR EXAM: Female, 74 years old. Post thorax TECHNIQUE: AP inspiration and expiration views. COMPARISON: Comparison is made with prior study done earlier in the day. FINDINGS: The patient is status post right thoracentesis. There is no evidence of pneumothorax. RAD/Chest Insp/Exp 2 View IMPRESSION: Status post right thoracentesis. No evidence of pneumothorax. Electronically Signed: Kenneth Salinas, at 14:07 EDT , Service support ,
[2020-04-19 13:31] LABS: Cytology, Body Fluid / CSF SEE PATHOLOGY REPORT
--- NOTE | 2020-04-19 13:50 | CASEMGMT ---
SANAM THAPA assessment: Face to Face with patient for initial transition planning/care coordination assessment. SANAM THAPA introduced self and role at [facility], pt voices understanding and consents to assessment at this time. Pt is sitting up in bed in no distress at this time. Pt is A/Ox4 at this time and answers all questions appropriately at this time. Care providers, pharmacy, and demographics verified at this time. Presentation: Increased SOB, been retaining fluid and needing more O2 frequently at home, BLE edema, hx COPD, CHF Admitting dx: Hyponatremia PCP: Pt states does not currently have a PCP. She states she used to see Watson but does not see him any longer. Pt declines PCP list at this time. Specialists: Becka,cardio; Andres, pulm; Debora, onc [facility]erred [facility]acy[facility] Insurance: MYOS A/B, [id number] Prescription Benefit: Yes Living Will/HPOA: Pt states does not have LW/HPOA and declines AD info at this time. LNOK: Bernardino Vallejo, Living Arrangements: Pt states lives with in 1 story home and mostly w/c bound at home except for short walk to bathroom. Pt states she has a walker and cane but feels unsteady and prefers w/c. Pt states does assist with some ADL's and states no concerns. Transportation: Pt states drives and states no transportation concerns at this time. DME/HHC: Pt states has the following DME: cane, walker, shower bench, w/c, and 2 liters home oxygen 24/7 thru [employer]. Pt states no need for any further DME at this time. Pt states no hx of HHC or SNF in the past. Pt states no concerns with going home at time of discharge. Pt states is disabled. Pt states quit smoking cigarettes 5 days ago and states does not drink ETOH. Pt states no further concerns/needs at this time. CM to follow for PT/OT evals and any further discharge planning/needs. Advised pt to ask for CM if any further questions/concerns/needs arise, voices understanding. Pt Goal: Home Plan: [place] SANAM THAPA
[2020-04-19 13:52] LABS: Body Fluid Mononuclear WBC % 92.6 %; Body Fluid Polynuclear WBC # 0.008 10^3/uL; Body Fluid Polynuclear WBC % 7.4 %; Body Fluid Total Cells Counted 0.159 10^3/ul; Red Cell Count/Body Fluid 0.003 10^6/ul; White Blood Count/Body Fluid 0.108 10^3/uL
[2020-04-19 13:53] LABS: Appearance/Body Fluid CLEAR; Auto B Fluid Analyzer BKGD Ct COUNTS W/IN LIMITS (W/IN LIMITS); Color/Body Fluid YELLOW; Source- Body Fluid THORACENTESIS
[2020-04-19 13:57] LABS: Glucose, Body Fluid 127 mg/dL (40-70); LDH,Body Fluid 56 Units/l (Not Establ.)
[2020-04-19] MEDS: Nystatin Powder 15gm Bottle 1 APPLIC TOPICAL ×2 (14:10→21:18)
[2020-04-19] MEDS: SODIUM CHLORIDE 1 GM TABLET PO (14:10)
[2020-04-19] MEDS: BENZOCAINE/MENTHOL 1 LOZENGE MUCOUS MEM ×3 (14:10→19:54)
[2020-04-19 14:27] LABS: Lymphocytes 6 %; Macrophages 88 %; Neutrophil (Segs) 6 %
[2020-04-19 14:36] LABS: Body Fluid QC Type(s) BF1Q
--- NOTE | 2020-04-19 19:56 | PCM.PN.BLA ---
Progress Note received call from dr britt. reviewed chart. history of CHF COPD lung ca. admit with low sodium. urine osm more than 100. urine sodium 81. on iv lasix dw pharmacy. no samsca available here. will place a request. in the meantime increase salt tablets to 3 gm TID and continue IV lasix. full consult to follow. STROKE Vital Signs/Narrative: Vital Signs Temp Pulse Resp BP Pulse Ox 04/19/20 17:02 98.6 F 80 16 125/65 H 97
[2020-04-19] MEDS: guaiFENesin 1,200 MG Tablet 1200 MG PO (21:18)
[2020-04-19] MEDS: SODIUM CHLORIDE 1 GM TABLET 3 GM PO (21:18)
[2020-04-20] VITALS (15 sets, daily range): BP systolic 124–149; BP diastolic 70–85; PULSE 72–98; RESP 14–21; TEMP 36.4–36.6; O2SAT 97–100
[2020-04-20] MEDS: BENZOCAINE/MENTHOL 1 LOZENGE MUCOUS MEM ×3 (03:44→08:31)
[2020-04-20] MEDS: Nystatin Powder 15gm Bottle 1 APPLIC TOPICAL ×3 (05:13→22:43)
[2020-04-20] MEDS: Heparin Injection (Vial) 5,000 UNIT/ML VIAL 5000 UNIT SC ×3 (05:13→22:47)
[2020-04-20] MEDS: SODIUM CHLORIDE 1 GM TABLET 3 GM PO ×3 (05:13→22:47)
[2020-04-20 06:55] LABS: Absolute Neutrophil Count 6.9 X10^3/uL (2.0-7.7); Hematocrit 28.2 % (37-47); Hemoglobin 8.3 g/dL (12.0-15.0); Lymphocyte % 5.2 % (19-41); Mean Corp Hgb Conc 29.4 g/dL (32-36); Mean Corpuscular Hgb 21.8 pg (27.0-32.0); Mean Corpuscular Volume 74.2 fL (81-99); Mean Platelet Vol. 8.9 fl (6.2-12.0); Monocyte# 0.41 X10^3/uL; Monocyte% 5.3 % (0-10); NRBC Flagged by Analyzer 0 % (0-5); Neutrophil # 6.88 X10^3/uL (2.7-7.7); Neutrophil % 88.7 % (47-70); POSITIVE DIFFERENTIAL YES; Platelet Count 264 K/mm3 (150-450); RBC Distribution Width SD 44.8 fl (35.1-43.9); White Blood Count 7.8 K/mm3 (4.4-11.0)
[2020-04-20 07:22] LABS: Anion Gap 5 (5-15); BUN 6 mg/dL (7-18); BUN/Creat Ratio 19.4 RATIO (10-20); Calcium,Total 8.3 mg/dL (8.5-10.1); Chloride 80 mmol/L (98-107); Creatinine, Serum 0.31 mg/dL (0.55-1.02); EST Glomerular Filtration Rate 224 mL/min (>60); Est Glom Filt Rate - Afr Amer 271 mL/min (>60); Estimated Creatinine Clearance 41.45 ml/min; Glucose 139 mg/dL (74-106); Potassium 3.1 mmol/L (3.5-5.1); Sodium Level 119 mmol/L (136-145)
[2020-04-20] MEDS: Ipratropium/Albuterol Sulfate 3 ML AMPUL.NEB INHALATION ×4 (07:27→18:56)
[2020-04-20 07:42] LABS: Differential Indicated SCAN CRITERIA MET
[2020-04-20 08:37] LABS: Differential Comment SCANNED
[2020-04-20] MEDS: predniSONE 20 MG Tablet 40 MG PO (09:36)
[2020-04-20] MEDS: Carvedilol 25 MG Tablet PO ×2 (09:36→22:43)
[2020-04-20] MEDS: guaiFENesin 1,200 MG Tablet 1200 MG PO ×2 (09:36→22:47)
[2020-04-20] MEDS: Furosemide 40 MG/4 ML Vial IV ×3 (09:37→22:47)
[2020-04-20] MEDS: 0.9% Saline Lock 10 ML Syringe IV ×4 (09:38→22:43)
--- NOTE | 2020-04-20 11:38 | PCM.PN.PUL ---
Patient Problems: Active and Suspected Problems (Last Reviewed 01/25/20 @ 10:49 by RAFAEL Conner) Hyponatremia (Acute) COPD exacerbation (Acute) Subjective: The patient was seen and examined at the bedside this morning. Events from the last 24 hours have been reviewed. The patient is currently afebrile, hemodynamically stable and maintaining appropriate oxygen saturations on 2L/min via nasal cannula. The patient underwent successful ultrasound-guided thoracentesis yesterday with 1.1 L of melinda-colored fluid removed from her right hemithorax. She remains on scheduled IV Lasix twice daily. Sodium has improved to 119 this morning. Potassium is low at 3.1. Objective: The patient's most recent lab work, culture data and imaging studies have all been personally reviewed. Pleural fluid culture has shown no growth to date. - Physical Exam Vitals/I&O's: Vital Signs Temp Pulse Resp BP Pulse Ox 97.7 F L 82 19 H 144/70 H 98 04/20/20 09:15 04/20/20 10:34 04/20/20 10:34 04/20/20 09:15 04/20/20 10:34 Oxygen Flow Rate (L/min) [4] 2 Oxygen Flow Rate (L/min) [3] 2 Oxygen Flow Rate (L/min) [2] 2 Oxygen Flow Rate (L/min) [1 ( 2 Initial Baseline)] Oxygen Flow Rate (L/min) 2 Oxygen Delivery Method [4] Nasal Cannula Oxygen Delivery Method [3] Nasal Cannula Oxygen Delivery Method [2] Nasal Cannula Oxygen Delivery Method [1 ( Nasal Cannula Initial Baseline)] Oxygen Delivery Method Nasal Cannula Weight: 196 lb 10.437 oz Body Mass Index (BMI) 36.1 Intake and Output for Last 24 Hours 04/18/20 04/19/20 04/20/20 23:59 23:59 23:59 Intake Total 749.17 / 749.17 2109 / 2109 200 / 200 Output Total 2049 5000 / 5000 Balance -1300.83 / -1300.83 -2890 / -2890 200 / 200 General: Alert, Cooperative, No apparent distress, - - Sitting in bedside recliner HEENT: Atraumatic, PERRLA, Normocephalic Oral: No Gingival or Mucosal Lesions/ Ulcerations Neck: Supple, No Nodes, Trachea Midline Lungs: No rhonchi, No wheeze, No rales, Diminished Cardiovascular: Irregular Rate, Murmur Abdomen: Bowel Sounds Present, Soft, Non Tender Extremities: No clubbing, No cyanosis, Edema Skin: No breakdown Musculoskeletal: No Tenderness to Palpation of Joints or Extremities, No Muscle Wasting Lymphatic: No Cervical, Supraclavicular, or Inguinal Adenopathy Neurological: Cranial nerves II-XII grossly intact, Neuro grossly intact Psych/Mental Status: Flat Affect Labs (Last 48 Hours) 04/18/20 04/18/20 04/18/20 08:42 12:50 16:15 WBC RBC Hgb Hct MCV MCH MCHC RDW Std Deviation RDW Coeff of Malini Plt Count MPV Immature Gran % (Auto) Neut % (Auto) Lymph % (Auto) [place] % (Auto) Eos % (Auto) Baso % (Auto) Absolute Neuts (auto) Absolute Lymphs (auto) Nucleated RBC % Differential Comment Sodium 115 L* Potassium Chloride Carbon Dioxide Anion Gap BUN Creatinine Estim Creat Clear Calc Est GFR (MDRD) Af Amer Est GFR (MDRD) Non-Af BUN/Creatinine Ratio Glucose Serum Osmolality Calcium Magnesium 1.7 Lactate Dehydrogenase Troponin I Cancelled 0.022 < 0.015 B-Natriuretic Peptide Total Protein Globulin Albumin/Globulin Ratio Triglycerides Cholesterol LDL Cholesterol VLDL Cholesterol HDL Cholesterol TSH Urine Osmolality U Random Total Protein Ur Random Sodium Urine Creatinine Urine Potassium Urine Chloride Fluid Source Fluid Color Fluid Appearance Fluid WBC Fluid RBC Fluid Tot Cell Count Fld Polynuclear WBCs # Fld Polynuclear WBCs % Fluid Mononuclear WBCs Fld Mononuclear WBCs % Fluid Neutrophils Fluid Lymphocytes Fluid Macrophages Fl Pathologist Comment Fluid Glucose Fluid Total Protein Fluid LDH Fluid Comment 2 Miscellaneous Cytology 04/18/20 04/19/20 04/19/20 16:15 00:05 06:41 WBC RBC Hgb Hct MCV MCH MCHC RDW Std Deviation RDW Coeff of Malini Plt Count MPV Immature Gran % (Auto) Neut % (Auto) Lymph % (Auto) [place] % (Auto) Eos % (Auto) Baso % (Auto) Absolute Neuts (auto) Absolute Lymphs (auto) Nucleated RBC % Differential Comment Sodium 116 L* 116 L* 116 L* Potassium 3.6 Chloride 78 L Carbon Dioxide 31.0 Anion Gap 7 BUN 6 L Creatinine 0.36 L Estim Creat Clear Calc 41.45 Est GFR (MDRD) Af Amer 226 Est GFR (MDRD) Non-Af 186 BUN/Creatinine Ratio 16.6 Glucose 124 H Serum Osmolality Calcium 8.5 Magnesium Lactate Dehydrogenase Troponin I B-Natriuretic Peptide Total Protein Globulin Albumin/Globulin Ratio Triglycerides 45 Cholesterol 104 LDL Cholesterol 60 VLDL Cholesterol 9 HDL Cholesterol 35 L TSH 1.58 Urine Osmolality U Random Total Protein Ur Random Sodium Urine Creatinine Urine Potassium Urine Chloride Fluid Source Fluid Color Fluid Appearance Fluid WBC Fluid RBC Fluid Tot Cell Count Fld Polynuclear WBCs # Fld Polynuclear WBCs % Fluid Mononuclear WBCs Fld Mononuclear WBCs % Fluid Neutrophils Fluid Lymphocytes Fluid Macrophages Fl Pathologist Comment Fluid Glucose Fluid Total Protein Fluid LDH Fluid Comment 2 Miscellaneous Cytology 04/19/20 04/19/20 04/19/20 06:41 06:41 06:41 WBC 5.2 RBC 3.77 L Hgb 8.3 L Hct 28.0 L MCV 74.3 L MCH 22.0 L MCHC 29.6 L RDW Std Deviation 43.9 RDW Coeff of Malini 16.9 H Plt Count 227 MPV 9.0 Immature Gran % (Auto) 0.400 Neut % (Auto) 92.1 H Lymph % (Auto) 4.8 L [place] % (Auto) 2.7 Eos % (Auto) 0.0 Baso % (Auto) 0.0 Absolute Neuts (auto) 4.8 Absolute Lymphs (auto) 0.25 L Nucleated RBC % 0 Differential Comment Sodium Potassium Chloride Carbon Dioxide Anion Gap BUN Creatinine Estim Creat Clear Calc Est GFR (MDRD) Af Amer Est GFR (MDRD) Non-Af BUN/Creatinine Ratio Glucose Serum Osmolality Calcium Magnesium Lactate Dehydrogenase 153 Troponin I B-Natriuretic Peptide 1047.7 H Total Protein 6.5 Globulin 3.4 Albumin/Globulin Ratio 0.9 Triglycerides Cholesterol LDL Cholesterol VLDL Cholesterol HDL Cholesterol TSH Urine Osmolality U Random Total Protein Ur Random Sodium Urine Creatinine Urine Potassium Urine Chloride Fluid Source Fluid Color Fluid Appearance Fluid WBC Fluid RBC Fluid Tot Cell Count Fld Polynuclear WBCs # Fld Polynuclear WBCs % Fluid Mononuclear WBCs Fld Mononuclear WBCs % Fluid Neutrophils Fluid Lymphocytes Fluid Macrophages Fl Pathologist Comment Fluid Glucose Fluid Total Protein Fluid LDH Fluid Comment 2 Miscellaneous Cytology 04/19/20 04/19/20 04/19/20 06:41 12:10 12:10 WBC RBC Hgb Hct MCV MCH MCHC RDW Std Deviation RDW Coeff of Malini Plt Count MPV Immature Gran % (Auto) Neut % (Auto) Lymph % (Auto) [place] % (Auto) Eos % (Auto) Baso % (Auto) Absolute Neuts (auto) Absolute Lymphs (auto) Nucleated RBC % Differential Comment Sodium Potassium Chloride Carbon Dioxide Anion Gap BUN Creatinine Estim Creat Clear Calc Est GFR (MDRD) Af Amer Est GFR (MDRD) Non-Af BUN/Creatinine Ratio Glucose Serum Osmolality 235 L Calcium Magnesium Lactate Dehydrogenase Troponin I B-Natriuretic Peptide Total Protein Globulin Albumin/Globulin Ratio Triglycerides Cholesterol LDL Cholesterol VLDL Cholesterol HDL Cholesterol TSH Urine Osmolality U Random Total Protein < 6.0 Ur Random Sodium Urine Creatinine < 13.00 Urine Potassium Urine Chloride Fluid Source Fluid Color Fluid Appearance Fluid WBC Fluid RBC Fluid Tot Cell Count Fld Polynuclear WBCs # Fld Polynuclear WBCs % Fluid Mononuclear WBCs Fld Mononuclear WBCs % Fluid Neutrophils Fluid Lymphocytes Fluid Macrophages Fl Pathologist Comment Fluid Glucose Fluid Total Protein Fluid LDH Fluid Comment 2 Miscellaneous Cytology 04/19/20 04/19/20 04/19/20 12:10 12:10 13:15 WBC RBC Hgb Hct MCV MCH MCHC RDW Std Deviation RDW Coeff of Malini Plt Count MPV Immature Gran % (Auto) Neut % (Auto) Lymph % (Auto) [place] % (Auto) Eos % (Auto) Baso % (Auto) Absolute Neuts (auto) Absolute Lymphs (auto) Nucleated RBC % Differential Comment Sodium Potassium Chloride Carbon Dioxide Anion Gap BUN Creatinine Estim Creat Clear Calc Est GFR (MDRD) Af Amer Est GFR (MDRD) Non-Af BUN/Creatinine Ratio Glucose Serum Osmolality Calcium Magnesium Lactate Dehydrogenase Troponin I B-Natriuretic Peptide Total Protein Globulin Albumin/Globulin Ratio Triglycerides Cholesterol LDL Cholesterol VLDL Cholesterol HDL Cholesterol TSH Urine Osmolality 247 U Random Total Protein Ur Random Sodium 81 Urine Creatinine Urine Potassium 23.0 Urine Chloride 101 Fluid Source Fluid Color Fluid Appearance Fluid WBC Fluid RBC Fluid Tot Cell Count Fld Polynuclear WBCs # Fld Polynuclear WBCs % Fluid Mononuclear WBCs Fld Mononuclear WBCs % Fluid Neutrophils Fluid Lymphocytes Fluid Macrophages Fl Pathologist Comment Fluid Glucose 127 H Fluid Total Protein 3.0 Fluid LDH 56 Fluid Comment 2 Miscellaneous Cytology 04/19/20 04/19/20 04/20/20 13:15 13:15 05:58 WBC 7.8 RBC 3.80 L Hgb 8.3 L Hct 28.2 L MCV 74.2 L MCH 21.8 L MCHC 29.4 L RDW Std Deviation 44.8 H RDW Coeff of Malini 17.0 H Plt Count 264 MPV 8.9 Immature Gran % (Auto) 0.800 Neut % (Auto) 88.7 H Lymph % (Auto) 5.2 L [place] % (Auto) 5.3 Eos % (Auto) 0.0 Baso % (Auto) 0.0 Absolute Neuts (auto) 6.9 Absolute Lymphs (auto) 0.40 L Nucleated RBC % 0 Differential Comment SCANNED Sodium Potassium Chloride Carbon Dioxide Anion Gap BUN Creatinine Estim Creat Clear Calc Est GFR (MDRD) Af Amer Est GFR (MDRD) Non-Af BUN/Creatinine Ratio Glucose Serum Osmolality Calcium Magnesium Lactate Dehydrogenase Troponin I B-Natriuretic Peptide Total Protein Globulin Albumin/Globulin Ratio Triglycerides Cholesterol LDL Cholesterol VLDL Cholesterol HDL Cholesterol TSH Urine Osmolality U Random Total Protein Ur Random Sodium Urine Creatinine Urine Potassium Urine Chloride Fluid Source THORACENTESIS Fluid Color YELLOW Fluid Appearance CLEAR Fluid WBC 0.108 Fluid RBC 0.003 Fluid Tot Cell Count 0.159 H Fld Polynuclear WBCs # 0.008 Fld Polynuclear WBCs % 7.4 Fluid Mononuclear WBCs 0.100 Fld Mononuclear WBCs % 92.6 Fluid Neutrophils 6 Fluid Lymphocytes 6 Fluid Macrophages 88 Fl Pathologist Comment May follow Fluid Glucose Fluid Total Protein Fluid LDH Fluid Comment 2 SEE COMMENT Miscellaneous Cytology Pending 04/20/20 05:58 WBC RBC Hgb Hct MCV MCH MCHC RDW Std Deviation RDW Coeff of Malini Plt Count MPV Immature Gran % (Auto) Neut % (Auto) Lymph % (Auto) [place] % (Auto) Eos % (Auto) Baso % (Auto) Absolute Neuts (auto) Absolute Lymphs (auto) Nucleated RBC % Differential Comment Sodium 119 L* Potassium 3.1 L Chloride 80 L Carbon Dioxide 34.0 H Anion Gap 5 BUN 6 L Creatinine 0.31 L Estim Creat Clear Calc 41.45 Est GFR (MDRD) Af Amer 271 Est GFR (MDRD) Non-Af 224 BUN/Creatinine Ratio 19.4 Glucose 139 H Serum Osmolality Calcium 8.3 L Magnesium Lactate Dehydrogenase Troponin I B-Natriuretic Peptide Total Protein Globulin Albumin/Globulin Ratio Triglycerides Cholesterol LDL Cholesterol VLDL Cholesterol HDL Cholesterol TSH Urine Osmolality U Random Total Protein Ur Random Sodium Urine Creatinine Urine Potassium Urine Chloride Fluid Source Fluid Color Fluid Appearance Fluid WBC Fluid RBC Fluid Tot Cell Count Fld Polynuclear WBCs # Fld Polynuclear WBCs % Fluid Mononuclear WBCs Fld Mononuclear WBCs % Fluid Neutrophils Fluid Lymphocytes Fluid Macrophages Fl Pathologist Comment Fluid Glucose Fluid Total Protein Fluid LDH Fluid Comment 2 Miscellaneous Cytology Microbiology 04/19/20 13:15 Fluid - Thoracentesis Fluid Gram Stain - Final 04/19/20 13:15 Fluid - Thoracentesis Fluid Body Fluid Culture - Preliminary No growth-Final to follow Clinical Impression(s) from Imaging Studies Chest X-Ray 04/18/20 08:39 IMPRESSION: Increasing bilateral pleural effusions right greater than left with bibasilar atelectasis and/or infiltrate. Residual infiltration in the left perihilar region although there has been improvement. Electronically Signed: Kenneth Salinas, at 9:37 EDT , Service support , Chest X-Ray 04/19/20 05:55 IMPRESSION: Stable examination with the small right pleural effusion with right basilar atelectasis and/or infiltrate. Blunting of the left costophrenic angle with improved aeration of the left perihilar infiltrate. Electronically Signed: Kenneth Salinas at 12:50 EDT , Service support , Chest X-Ray 04/19/20 05:55 IMPRESSION: Small right pleural effusion with right basilar infiltration. Electronically Signed: Kenneth Salinas at 12:47 EDT , Service support , Chest X-Ray 04/19/20 05:55 IMPRESSION: Minimal left pleural effusion. Electronically Signed: Kenneth Salinas at 12:46 EDT , Service support , Thoracentesis Ultrasound 04/19/20 10:32 IMPRESSION: Ultrasound-guided right thoracentesis. Electronically Signed: Kenneth Salinas at 14:06 EDT , Service support , Chest X-Ray 04/19/20 13:20 IMPRESSION: Status post right thoracentesis. No evidence of pneumothorax. Electronically Signed: Kenneth Salinas, at 14:07 EDT , Service support , Current Medications Acetaminophen (Tylenol) 650 mg PO Q6H PRN PRN PRN Reason: Pain Score 1-10/Temp > 100.7 F Al Hydroxide/Mg Hydroxide (Mylanta Ii) 30 ml PO Q6H PRN PRN PRN Reason: Gastric Burning Albuterol Sulfate (Ventolin Aerosols) 2.5 mg INHALATION Q2H PRN PRN PRN Reason: SOB/Wheezing Albuterol/Ipratropium (Duoneb) 3 ml INHALATION Q4HWA.RT [facility] Last Admin: 04/20/20 10:35 Dose: 3 ml Documented by: Carvedilol (Coreg) 25 mg PO BID [facility] Last Admin: 04/20/20 09:36 Dose: 25 mg Documented by: Dextrose (D50w Syringe) 0 gm IV X1 PRN; Protocol PRN Reason: Hypoglycemia Furosemide (Lasix) 40 mg IV BID@1000,1800 [facility] Last Admin: 04/20/20 09:37 Dose: 40 mg Documented by: Glucagon () 1 mg IM .X1 PRN PRN Reason: Hypoglycemia Guaifenesin (Mucinex) 1,200 mg PO BID [facility] Last Admin: 04/20/20 09:36 Dose: 1,200 mg Documented by: Heparin Sodium (Porcine) (Heparin Na) 5,000 unit SC Q8 [facility] Last Admin: 04/20/20 05:13 Dose: 5,000 unit Documented by: Melatonin (Melatonin) 3 mg PO QHS PRN PRN PRN Reason: INSOMNIA Morphine Sulfate () 2 mg IV Q3H PRN PRN PRN Reason: Pain Score 4-10/10 Nicotine (Nicoderm Cq (Pbkc)) 21 mg TRANSDERM. DAILY [facility] Last Admin: 04/20/20 09:42 Dose: Not Given Documented by: Nitroglycerin (Nitrostat) 0.4 mg SUBLINGUAL Q5M PRN PRN Reason: CARDIAC/CHEST PAIN Nystatin (Mycostatin Powder) 1 applic TOPICAL TID [facility]; Protocol Last Admin: 04/20/20 05:13 Dose: 1 applicatio Documented by: Potassium Chloride (K-Dur) 40 meq PO BIDCM [facility] Stop: 04/23/20 08:01 Last Admin: 04/20/20 10:19 Dose: 40 meq Documented by: Prednisone () 40 mg PO DAILY@0800 [facility] Last Admin: 04/20/20 09:36 Dose: 40 mg Documented by: Senna/Docusate Sodium (Senokot-S, Yeseina-Colace) 2 tablet PO BID PRN PRN PRN Reason: Constipation Sodium Chloride () 10 - 40 ml IV UD PRN PRN Reason: SALINE FLUSH Last Admin: 04/20/20 09:38 Dose: 10 ml Documented by: Sodium Chloride (Sodium Chloride) 3 gm PO TID [facility] Last Admin: 04/20/20 05:13 Dose: 3 gm Documented by: Throat Lozenges (Cepacol Sore Throat Lozenge) 1 lozenge MUCOUS MEM Q2H PRN PRN PRN Reason: cough/sore throat Last Admin: 04/20/20 08:31 Dose: 1 lozenge Documented by: Medical Necessity - Tobacco Use Smoking Status: Current some day smoker Assessment/Plan All Active Problems (Last Reviewed 01/25/20 @ 10:49 by Jayleen Burr NP-C) Hyponatremia (Acute) COPD exacerbation (Acute) Thrush, oral (Resolved) RECOMMENDATIONS: 1. Continue scheduled diuretic therapy as tolerated by hemodynamics and renal function. 2. Continue scheduled bronchodilator therapy. 3. Wean supplemental oxygen to maintain saturations at or above 90%. 4. Encourage incentive spirometer use and mobilize patient as tolerated. 5. Continue nicotine replacement therapy. IMPRESSIONS: 1. Acute hypoxemic respiratory insufficiency Likely secondary to bilateral pleural effusions in the setting of decompensated heart failure. Agree with attempts at aggressive diuresis. The patient also underwent successful ultrasound guided thoracentesis with subsequent improvement in breathing quality. Per traditional Light's criteria, if at least one of the following three is fulfilled, the fluid would be considered an exudate: 1. Pleural fluid protein/serum protein ratio greater than 0.5 2. Pleural fluid LDH/serum LDH ratio greater than 0.6 3. Pleural fluid LDH greater than two thirds the upper limits of the laboratories normal serum LDH Based upon my review of the patient's pleural fluid analysis, along with serum LDH and total protein levels, the pleural fluid would be considered transudative in nature. Recommend continuing to wean supplemental oxygen to maintain saturations at or above 90%. Encourage incentive spirometer use and mobilize patient as tolerated. 2. Baseline severe COPD Continue scheduled bronchodilators and inhaled corticosteroid. I do not see an indication for systemic corticosteroids at this time. 3. Non-small cell carcinoma of the lung The patient is currently under the management of [facility]. 4. Continuous tobacco dependency Tobacco cessation counseling provided. Nicotine replacement therapy will be continued while admitted to the hospital. 5. Paroxysmal atrial fibrillation/history of breast CA/hypertension/hyponatremia/hypokalemia Complicates care, management, recovery and prognosis. Suspect electrolyte abnormalities are related to state of hypervolemia. Continue Lasix as ordered. This note was generated with [employer] dictation software. It may contain incorrect words, spelling, and punctuation that were not noted in checking the note before signing. Inpatient E&M: [id number] [facility] L[facility]
--- NOTE | 2020-04-20 12:08 | CON.PCM_ITS ---
Consultation - Renal 04/20/20 PCP/ Referring MD: Requesting physician: [] Primary care physician: No Primary Care Phys Reason for Consultation:: hyponatremia - History of Present Illness History of Present Illness: The patient is a 74 year old F with CHF r EF COPD lung ca. admit with low sodium 114 with urine osm more than 100. urine sodium 81. On iv lasix discuss with primary and pharmacy. no samsca available here. will place a request. in the meantime she was put on increase salt tablets to 3 gm TID and continue IV lasix. Na increased to 119. - Allergies Allergies: Allergies albuterol sulfate [From Combivent] Allergy (Verified 04/18/20 08:22) Swelling ipratropium bromide [From Combivent] Allergy (Verified 04/18/20 08:22) Swelling metoprolol Allergy (Verified 04/18/20 08:22) Laryngospasms Sulfa (Sulfonamide Antibiotics) Allergy (Verified 04/18/20 08:22) Rash beclomethasone [From Qvar] Adverse Reaction (Verified 04/18/20 08:22) COUGHING benzalkonium chloride [From Merthiolate (benzalkonium)] Adverse Reaction (Verified 04/18/20 08:22) Rash codeine Adverse Reaction (Verified 04/18/20 08:22) Chest tightness chest hurts doxycycline Adverse Reaction (Verified 04/18/20 08:22) Abd cramps/diarrhea formoterol fumarate [From Dulera] Adverse Reaction (Verified 04/18/20 08:22) PT UNSURE OF REACTION hydrochlorothiazide Adverse Reaction (Verified 04/18/20 08:22) PT UNSURE OF REACTION ibuprofen [From Advil] Adverse Reaction (Verified 04/18/20 08:22) PT UNSURE OF REACTION iodine Adverse Reaction (Verified 04/18/20 08:22) Itching merbromin Adverse Reaction (Verified 04/18/20 08:22) PT UNSURE OF REACTION mometasone furoate [From Dulera] Adverse Reaction (Verified 04/18/20 08:22) PT UNSURE OF REACTION oseltamivir [From Tamiflu] Adverse Reaction (Verified 04/18/20 08:22) uterine pain prednisone Adverse Reaction (Verified 04/18/20 08:22) Abd cramps/diarrhea PLASTIC TAPE Allergy (Uncoded 04/18/20 08:22) Rash - Current Medications Current Medications: Current Medications Acetaminophen (Tylenol) 650 mg PO Q6H PRN PRN PRN Reason: Pain Score 1-10/Temp > 100.7 F Al Hydroxide/Mg Hydroxide (Mylanta Ii) 30 ml PO Q6H PRN PRN PRN Reason: Gastric Burning Albuterol Sulfate (Ventolin Aerosols) 2.5 mg INHALATION Q2H PRN PRN PRN Reason: SOB/Wheezing Albuterol/Ipratropium (Duoneb) 3 ml INHALATION Q4HWA.RT [facility] Last Admin: 04/20/20 10:35 Dose: 3 ml Documented by: Carvedilol (Coreg) 25 mg PO BID [facility] Last Admin: 04/20/20 09:36 Dose: 25 mg Documented by: Dextrose (D50w Syringe) 0 gm IV X1 PRN; Protocol PRN Reason: Hypoglycemia Furosemide (Lasix) 40 mg IV BID@1000,1800 [facility] Last Admin: 04/20/20 09:37 Dose: 40 mg Documented by: Glucagon () 1 mg IM .X1 PRN PRN Reason: Hypoglycemia Guaifenesin (Mucinex) 1,200 mg PO BID [facility] Last Admin: 04/20/20 09:36 Dose: 1,200 mg Documented by: Heparin Sodium (Porcine) (Heparin Na) 5,000 unit SC Q8 [facility] Last Admin: 04/20/20 05:13 Dose: 5,000 unit Documented by: Melatonin (Melatonin) 3 mg PO QHS PRN PRN PRN Reason: INSOMNIA Morphine Sulfate () 2 mg IV Q3H PRN PRN PRN Reason: Pain Score 4-10/10 Nicotine (Nicoderm Cq (Pbkc)) 21 mg TRANSDERM. DAILY [facility] Last Admin: 04/20/20 09:42 Dose: Not Given Documented by: Nitroglycerin (Nitrostat) 0.4 mg SUBLINGUAL Q5M PRN PRN Reason: CARDIAC/CHEST PAIN Nystatin (Mycostatin Powder) 1 applic TOPICAL TID [facility]; Protocol Last Admin: 04/20/20 05:13 Dose: 1 applicatio Documented by: Potassium Chloride (K-Dur) 40 meq PO BIDCM [facility] Stop: 04/23/20 08:01 Last Admin: 04/20/20 10:19 Dose: 40 meq Documented by: Prednisone () 40 mg PO DAILY@0800 [facility] Last Admin: 04/20/20 09:36 Dose: 40 mg Documented by: Senna/Docusate Sodium (Senokot-S, Yesenia-Colace) 2 tablet PO BID PRN PRN PRN Reason: Constipation Sodium Chloride () 10 - 40 ml IV UD PRN PRN Reason: SALINE FLUSH Last Admin: 04/20/20 09:38 Dose: 10 ml Documented by: Sodium Chloride (Sodium Chloride) 3 gm PO TID [facility] Last Admin: 04/20/20 05:13 Dose: 3 gm Documented by: Throat Lozenges (Cepacol Sore Throat Lozenge) 1 lozenge MUCOUS MEM Q2H PRN PRN PRN Reason: cough/sore throat Last Admin: 04/20/20 08:31 Dose: 1 lozenge Documented by: - Past Medical History Past Medical History (Chronic Problems): Chronic Problems (Last Reviewed 01/25/20 @ 10:49 by RAFAEL Conner) Chronic respiratory failure with hypoxia (Chronic) Tobacco abuse (Chronic) Tobacco abuse counseling (Chronic) Dependent edema (Chronic) Bilateral leg ulcer (Chronic) Non-ischemic cardiomyopathy (Chronic) Paroxysmal atrial fibrillation (Chronic) Acute on chronic systolic (congestive) heart failure (Chronic) Secondary pulmonary arterial hypertension (Chronic) Non-rheumatic tricuspid valve insufficiency (Chronic) Nonrheumatic mitral (valve) insufficiency (Chronic) Essential (primary) hypertension (Chronic) Lung mass (Chronic) History of breast cancer (Chronic) COPD (chronic obstructive pulmonary disease) (Chronic) Nicotine dependence (Chronic) Chronic anticoagulation (Chronic) - Past Surgical History Surgical History: mastectomy, - - The patient has previously undergone a left mastectomy, right breast lumpectomy, and resection of a left pulmonary nodule. She also has undergone tubal ligation. She is a Ab0. - Social History Smoking Status: Current some day smoker - Family History Maternal Family History: Family History (Last Reviewed 01/25/20 @ 10:49 by RAFAEL Conner) Father Emphysema of lung Sister Cancer History Items: No pertinent history Paternal Family History: Family History (Last Reviewed 01/25/20 @ 10:49 by RAFAEL Conner) Father Emphysema of lung Sister Cancer History Items: No pertinent history Review of Systems HEENT: Reports: Dysphasia Cardiovascular: Reports: Chest Pain, Orthopnea Respiratory: Reports: Cough Gastrointestinal: Reports: Abdominal Pain Genitourinary: Reports: Dysuria Musculoskeletal: Denies: Joint Pain, Joint Tenderness Skin: Denies: Rash, Wounds Neurological: Denies: Numbness, Tingling, Focal weakness Psychiatric: Denies: Anxiety, Depression, Homicidal Ideations, Suicidal Ideations Hematologic/ Lymphatic: Reports: Adenopathy Patient Problems: Active and Suspected Problems (Last Reviewed 01/25/20 @ 10:49 by Jayleen Burr NP-C) Hyponatremia (Acute) COPD exacerbation (Acute) - Physical Exam Vitals/I&O's: Vital Signs Temp Pulse Resp BP Pulse Ox 97.7 F L 92 19 H 144/70 H 98 04/20/20 09:15 04/20/20 11:00 04/20/20 10:34 04/20/20 09:15 04/20/20 10:34 Oxygen Flow Rate (L/min) [4] 2 Oxygen Flow Rate (L/min) [3] 2 Oxygen Flow Rate (L/min) [2] 2 Oxygen Flow Rate (L/min) [1 ( 2 Initial Baseline)] Oxygen Flow Rate (L/min) 2 Oxygen Delivery Method [4] Nasal Cannula Oxygen Delivery Method [3] Nasal Cannula Oxygen Delivery Method [2] Nasal Cannula Oxygen Delivery Method [1 ( Nasal Cannula Initial Baseline)] Oxygen Delivery Method Nasal Cannula Weight: 89.2 kg Body Mass Index (BMI) 36.1 Intake and Output for Last 24 Hours 04/18/20 04/19/20 04/20/20 23:59 23:59 23:59 Intake Total 749.17 / 749.17 2110 / 2110 440 / 440 Output Total 2049 5000 / 5000 1750 / 1750 Balance -1300.83 / -1300.83 -2890 / -2890 -1310 / -1310 General: Alert, Oriented x3, Cooperative HEENT: Atraumatic, PERRLA, EOMI, Normocephalic Neck: JVD, Bilateral Lungs: Rhonchi, Short of Breath Cardiovascular: Regular rate, No murmurs Abdomen: Bowel Sounds Present, Soft, Non Tender Extremities: No edema, Capillary Refill Less than 3 Seconds Microbiology Past 72 Hours 04/19/20 13:15 Fluid - Thoracentesis Fluid Gram Stain - Final 04/19/20 13:15 Fluid - Thoracentesis Fluid Body Fluid Culture - Preliminary No growth-Final to follow Laboratory Results 04/19/20 12:10: U Random Total Protein < 6.0 04/19/20 12:10: Urine Creatinine < 13.00 04/19/20 12:10: Urine Osmolality 247 04/19/20 12:10: Ur Random Sodium 81, Urine Potassium 23.0, Urine Chloride 101 04/19/20 13:15: Fluid Glucose 127 H, Fluid Total Protein 3.0, Fluid LDH 56 04/19/20 13:15: Fluid Source THORACENTESIS, Fluid Color YELLOW, Fluid Appearance CLEAR, Fluid WBC 0.108, Fluid RBC 0.003, Fluid Tot Cell Count 0.159 H, Fld Polynuclear WBCs # 0.008, Fld Polynuclear WBCs % 7.4, Fluid Mononuclear WBCs 0.100, Fld Mononuclear WBCs % 92.6, Fluid Neutrophils 6, Fluid Lymphocytes 6, Fluid Macrophages 88, Fl Pathologist Comment May follow, Fluid Comment 2 SEE COMMENT 04/19/20 13:15: Miscellaneous Cytology Pending 04/20/20 05:58: WBC 7.8, RBC 3.80 L, Hgb 8.3 L, Hct 28.2 L, MCV 74.2 L, MCH 21.8 L, MCHC 29.4 L, RDW Std Deviation 44.8 H, RDW Coeff of Malini 17.0 H, Plt Count 264, MPV 8.9, Immature Gran % (Auto) 0.800, Neut % (Auto) 88.7 H, Lymph % (Auto) 5.2 L, [place] % (Auto) 5.3, Eos % (Auto) 0.0, Baso % (Auto) 0.0, Absolute Neuts (auto) 6.9, Absolute Lymphs (auto) 0.40 L, Nucleated RBC % 0, Differential Comment SCANNED 04/20/20 05:58: Sodium 119 L*, Potassium 3.1 L, Chloride 80 L, Carbon Dioxide 34.0 H, Anion Gap 5, BUN 6 L, Creatinine 0.31 L, Estim Creat Clear Calc 41.45, Est GFR (MDRD) Af Amer 271, Est GFR (MDRD) Non-Af 224, BUN/Creatinine Ratio 19.4, Glucose 139 H, Calcium 8.3 L Current Medications Acetaminophen (Tylenol) 650 mg PO Q6H PRN PRN PRN Reason: Pain Score 1-10/Temp > 100.7 F Al Hydroxide/Mg Hydroxide (Mylanta Ii) 30 ml PO Q6H PRN PRN PRN Reason: Gastric Burning Albuterol Sulfate (Ventolin Aerosols) 2.5 mg INHALATION Q2H PRN PRN PRN Reason: SOB/Wheezing Albuterol/Ipratropium (Duoneb) 3 ml INHALATION Q4HWA.RT [facility] Last Admin: 04/20/20 10:35 Dose: 3 ml Documented by: Carvedilol (Coreg) 25 mg PO BID [facility] Last Admin: 04/20/20 09:36 Dose: 25 mg Documented by: Dextrose (D50w Syringe) 0 gm IV X1 PRN; Protocol PRN Reason: Hypoglycemia Furosemide (Lasix) 40 mg IV BID@1000,1800 [facility] Last Admin: 04/20/20 09:37 Dose: 40 mg Documented by: Glucagon () 1 mg IM .X1 PRN PRN Reason: Hypoglycemia Guaifenesin (Mucinex) 1,200 mg PO BID [facility] Last Admin: 04/20/20 09:36 Dose: 1,200 mg Documented by: Heparin Sodium (Porcine) (Heparin Na) 5,000 unit SC Q8 [facility] Last Admin: 04/20/20 05:13 Dose: 5,000 unit Documented by: Melatonin (Melatonin) 3 mg PO QHS PRN PRN PRN Reason: INSOMNIA Morphine Sulfate () 2 mg IV Q3H PRN PRN PRN Reason: Pain Score 4-10/10 Nicotine (Nicoderm Cq (Pbkc)) 21 mg TRANSDERM. DAILY [facility] Last Admin: 04/20/20 09:42 Dose: Not Given Documented by: Nitroglycerin (Nitrostat) 0.4 mg SUBLINGUAL Q5M PRN PRN Reason: CARDIAC/CHEST PAIN Nystatin (Mycostatin Powder) 1 applic TOPICAL TID [facility]; Protocol Last Admin: 04/20/20 05:13 Dose: 1 applicatio Documented by: Potassium Chloride (K-Dur) 40 meq PO BIDCM [facility] Stop: 04/23/20 08:01 Last Admin: 04/20/20 10:19 Dose: 40 meq Documented by: Prednisone () 40 mg PO DAILY@0800 [facility] Last Admin: 04/20/20 09:36 Dose: 40 mg Documented by: Senna/Docusate Sodium (Senokot-S, Yesenia-Colace) 2 tablet PO BID PRN PRN PRN Reason: Constipation Sodium Chloride () 10 - 40 ml IV UD PRN PRN Reason: SALINE FLUSH Last Admin: 04/20/20 09:38 Dose: 10 ml Documented by: Sodium Chloride (Sodium Chloride) 3 gm PO TID [facility] Last Admin: 04/20/20 05:13 Dose: 3 gm Documented by: Throat Lozenges (Cepacol Sore Throat Lozenge) 1 lozenge MUCOUS MEM Q2H PRN PRN PRN Reason: cough/sore throat Last Admin: 04/20/20 08:31 Dose: 1 lozenge Documented by: Assessment/Plan All Active Problems (Last Reviewed 01/25/20 @ 10:49 by Jayleen Burr, CRISIS SPECIALIST-C) Hyponatremia (Acute) COPD exacerbation (Acute) Thrush, oral (Resolved) Hyponatremia with Lung Ca ? SIADH with CHF COPD Luli 81 - continue salt tablet -IV Lasix 40 mg TID -Albumin Q12
--- NOTE | 2020-04-20 15:15 | PN_ITS ---
Patient Problems: Active and Suspected Problems (Last Reviewed 01/25/20 @ 10:49 by RAFAEL Conner) Hyponatremia (Acute) COPD exacerbation (Acute) Reason for Visit: CHF exacerbation, COPD exacerbation and severe hyponatremia. Objective: Patient shortness of breath is better. Leg swelling has decreased after Douglas wrap bandage. Gradual sodium improvement. No chest pain. Physical exam EENT: Atraumatic, PERRLA, EOMI, Normocephalic Oral: No Gingival or Mucosal Lesions/ Ulcerations, Dry Mucosa Neck: Supple, No JVD, Negative Carotid Bruits Lungs: Air entry diminished in bilateral lower lungs, right more than left; although improved after thoracocentesis. Bilateral rhonchi, wheezing and egophony Cardiovascular: Irregular Rate - Rate is controlled.,Systolic murmur present over left lower sternal border. Abdomen: Bowel Sounds Present, Soft, Non Tender, Non-Distended Extremities: Capillary Refill Less than 3 Seconds, Bilateral lower extremity edema with lymphedema. Douglas wrap bandage applied. Skin: No rashes, No breakdown Musculoskeletal: No Tenderness to Palpation of Joints or Extremities Neurological: Cranial nerves II-XII grossly intact, Deep Tendon Reflexes 2+/4 and Symmetrical, Neuro grossly intact, Mild lower extremity weakness secondary to lymphedema and edema. Physical deconditioning Psych/Mental Status: Normal Affect, Appropriate Vitals/I&O's: Vital Signs Temp Pulse Resp BP Pulse Ox 97.7 F L 92 19 H 144/70 H 98 04/20/20 09:15 04/20/20 11:00 04/20/20 10:34 04/20/20 09:15 04/20/20 10:34 Oxygen Flow Rate (L/min) [4] 2 Oxygen Flow Rate (L/min) [3] 2 Oxygen Flow Rate (L/min) [2] 2 Oxygen Flow Rate (L/min) [1 ( 2 Initial Baseline)] Oxygen Flow Rate (L/min) 2 Oxygen Delivery Method [4] Nasal Cannula Oxygen Delivery Method [3] Nasal Cannula Oxygen Delivery Method [2] Nasal Cannula Oxygen Delivery Method [1 ( Nasal Cannula Initial Baseline)] Oxygen Delivery Method Nasal Cannula Weight: 196 lb 10.437 oz Body Mass Index (BMI) 36.1 Intake and Output for Last 24 Hours 04/18/20 04/19/20 04/20/20 23:59 23:59 23:59 Intake Total 749.17 / 749.17 2109 / 0 440 / 440 Output Total 2049 / 2049 5000 / 5000 1750 / 1750 Balance -1300.83 / -1300.83 -2890 / -2890 -1310 / -1310 Microbiology Past 72 Hours 04/19/20 13:15 Fluid - Thoracentesis Fluid Gram Stain - Final 04/19/20 13:15 Fluid - Thoracentesis Fluid Body Fluid Culture - Preliminary No growth-Final to follow Laboratory Results 04/20/20 05:58: WBC 7.8, RBC 3.80 L, Hgb 8.3 L, Hct 28.2 L, MCV 74.2 L, MCH 21.8 L, MCHC 29.4 L, RDW Std Deviation 44.8 H, RDW Coeff of Malini 17.0 H, Plt Count 264, MPV 8.9, Immature Gran % (Auto) 0.800, Neut % (Auto) 88.7 H, Lymph % (Auto) 5.2 L, [place] % (Auto) 5.3, Eos % (Auto) 0.0, Baso % (Auto) 0.0, Absolute Neuts (auto) 6.9, Absolute Lymphs (auto) 0.40 L, Nucleated RBC % 0, Differential Comment SCANNED 04/20/20 05:58: Sodium 119 L*, Potassium 3.1 L, Chloride 80 L, Carbon Dioxide 34.0 H, Anion Gap 5, BUN 6 L, Creatinine 0.31 L, Estim Creat Clear Calc 41.45, Est GFR (MDRD) Af Amer 271, Est GFR (MDRD) Non-Af 224, BUN/Creatinine Ratio 19.4, Glucose 139 H, Calcium 8.3 L Current Medications Acetaminophen (Tylenol) 650 mg PO Q6H PRN PRN PRN Reason: Pain Score 1-10/Temp > 100.7 F Al Hydroxide/Mg Hydroxide (Mylanta Ii) 30 ml PO Q6H PRN PRN PRN Reason: Gastric Burning Albuterol Sulfate (Ventolin Aerosols) 2.5 mg INHALATION Q2H PRN PRN PRN Reason: SOB/Wheezing Albuterol/Ipratropium (Duoneb) 3 ml INHALATION Q4HWA.RT [facility] Last Admin: 04/20/20 15:02 Dose: 3 ml Documented by: Carvedilol (Coreg) 25 mg PO BID [facility] Last Admin: 04/20/20 09:36 Dose: 25 mg Documented by: Dextrose (D50w Syringe) 0 gm IV X1 PRN; Protocol PRN Reason: Hypoglycemia Furosemide (Lasix) 40 mg IV BID@1000,1800 [facility] Last Admin: 04/20/20 09:37 Dose: 40 mg Documented by: Glucagon () 1 mg IM .X1 PRN PRN Reason: Hypoglycemia Guaifenesin (Mucinex) 1,200 mg PO BID [facility] Last Admin: 04/20/20 09:36 Dose: 1,200 mg Documented by: Heparin Sodium (Porcine) (Heparin Na) 5,000 unit SC Q8 [facility] Last Admin: 04/20/20 13:55 Dose: 5,000 unit Documented by: Melatonin (Melatonin) 3 mg PO QHS PRN PRN PRN Reason: INSOMNIA Morphine Sulfate () 2 mg IV Q3H PRN PRN PRN Reason: Pain Score 4-10/10 Nicotine (Nicoderm Cq (Pbkc)) 21 mg TRANSDERM. DAILY [facility] Last Admin: 04/20/20 09:42 Dose: Not Given Documented by: Nitroglycerin (Nitrostat) 0.4 mg SUBLINGUAL Q5M PRN PRN Reason: CARDIAC/CHEST PAIN Nystatin (Mycostatin Powder) 1 applic TOPICAL TID [facility]; Protocol Last Admin: 04/20/20 13:55 Dose: 1 applicatio Documented by: Potassium Chloride (K-Dur) 40 meq PO BIDCM [facility] Stop: 04/23/20 08:01 Last Admin: 04/20/20 10:19 Dose: 40 meq Documented by: Prednisone () 40 mg PO DAILY@0800 [facility] Last Admin: 04/20/20 09:36 Dose: 40 mg Documented by: Senna/Docusate Sodium (Senokot-S, Yesenia-Colace) 2 tablet PO BID PRN PRN PRN Reason: Constipation Sodium Chloride () 10 - 40 ml IV UD PRN PRN Reason: SALINE FLUSH Last Admin: 04/20/20 09:38 Dose: 10 ml Documented by: Sodium Chloride (Sodium Chloride) 3 gm PO TID [facility] Last Admin: 04/20/20 13:55 Dose: 3 gm Documented by: Throat Lozenges (Cepacol Sore Throat Lozenge) 1 lozenge MUCOUS MEM Q2H PRN PRN PRN Reason: cough/sore throat Last Admin: 04/20/20 08:31 Dose: 1 lozenge Documented by: Medical Necessity - Tobacco Use Smoking Status: Current some day smoker Assessment/Plan All Active Problems (Last Reviewed 01/25/20 @ 10:49 by RAFAEL Conner) Hyponatremia (Acute) COPD exacerbation (Acute) Thrush, oral (Resolved) The patient is a 74 year old F with multiple comorbidities as listed above including chronic hypoxic respiratory failure on 2 L of oxygen on exertion and CHF came to ER with progressive worsening shortness of breath for 2 days along with lower extremity edema and chest x-ray suggestive bilateral pleural effusion consistent with chronic hypoxic respiratory failure secondary to CHF exacerbation. Significant abnormal initial ED lab work was sodium 114, chloride 77, BNP 1251, alkaline phosphatase 171. Chest x-ray was individually reviewed and shows bilateral increasing pleural effusion right more than left with bibasilar atelectasis and/or infiltrate. Twelve-lead EKG shows A. fib at 86/min, QTC 460 ms. 1. Chronic hypoxic respiratory failure secondary to mainly CHF but mild COPD exacerbation: The patient is being admitted in PCU. On Lasix 40 mg IV twice daily. CHF core measures with fluid and salt restriction, daily weight measurement, strict intake and output, beta-donovan. Hold DOUGLAS inhibitor and bl ood pressure was lower 108/67. 04/20: Breathing is improved after thoracocentesis and Lasix. 2. Acute on chronic hyponatremia most likely hypotonic hypervolemic from CHF: Sodium is 114. She was given 100 mL of 3% sodium chloride in ER and Lasix 40 mg IV. 04/19: Patient was given about 150 mL of 3% sodium chloride on 04/18 but he still did not show good response, sodium went from 114-116. At night, night hospital started on normal saline 100 mils per hour which was discontinued in the morning. Subsequently started on sodium chloride tablet after discussion with pharmacist. Nephrology consult for further comanagement. Urine osmolality 247, sodium 81, potassium 23, chloride 101. Serum osmolality 235. 7/: Discussed with the primary clinician. As tolvaptan is not available in pharmacy, okay with sodium tablets 3 g 3 times daily 3. CHF exacerbation with bilateral pleural effusion: Repeat chest x-ray tomorrow a.m. Hold Xarelto if she requires thoracocentesis. Previous echo in September 2019 EF 37% with moderately severe MR, moderate. TR with RVSP 60 mm history of moderate pulmonary hypertension. This was a decrease from EF 50% in April 2018. Last thoracocentesis in September 2019 during previous admission 850 mils and was of transudate nature. 04/19: Discussed with the electrical checkout mechanic. Advised to proceed with ultrasound- guided thoracocentesis. Pleural fluid for chemistry, cell count culture and cytology was done. As per lights criteria, pleural fluid analysis is transudate. Total WBC count 108, polymorph 7%, mononuclear 93%. Pleural fluid Gram stain no organism 04/20: Lasix increased to 40 mg IV 3 times daily as per primary clinician recommendation along with IV albumin 85% every 12 hourly. Mild hypokalemia, potassium being replaced. Monitor electrolytes, urine output. Patient had -5.5 L fluid balance. 4. Mild COPD exacerbation: DuoNeb every 4 hourly. Low-dose Solu-Medrol IV, switch to prednisone tomorrow a.m. Incentive spirometry, PEP and chest physiotherapy. 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 04/19 on a scheduled bronchodilator. Incentive spirometry, pep, Mucinex and bronchopulmonary hygiene. 04/20: Patient encouraged for incentive spirometry and pep. Prednisone is discontinued as the steroid will promote fluid and salt retention. 5. Non-small cell carcinoma of lung, left upper lobe: She has CT-guided biopsy of left upper lobe mass reported non-small cell carcinoma favor adenocarcinoma consistent with lung primary. Patient completed radiotherapy about a year ago. Follows Dr. Cazares. 6. Chronic A. fib on Xarelto: 7. Hypertension: Currently on lower side. Hold lisinopril. 8. Continued smoking cigarette/nicotine dependence: Counseled on cessation. Nicotine patch offered. 9. DVT prophylaxis: Heparin 5000 units TID. Total time of the visit including total time spent in counseling or coordination of care, (more than 50% of the total time, spent in obtaining medical information from nurses and other ancillary care providers), discussion with consultants, primary clinician and electrical checkout mechanic, updated the clinical information to and at the bedside, review of labs and imaging is 30 minutes Microbiology Past 72 Hours 04/19/20 13:15 Fluid - Thoracentesis Fluid Gram Stain - Final 04/19/20 13:15 Fluid - Thoracentesis Fluid Body Fluid Culture - Preliminary No growth-Final to follow Laboratory Results 04/20/20 05:58: WBC 7.8, RBC 3.80 L, Hgb 8.3 L, Hct 28.2 L, MCV 74.2 L, MCH 21.8 L, MCHC 29.4 L, RDW Std Deviation 44.8 H, RDW Coeff of Malini 17.0 H, Plt Count 264, MPV 8.9, Immature Gran % (Auto) 0.800, Neut % (Auto) 88.7 H, Lymph % (Auto) 5.2 L, [place] % (Auto) 5.3, Eos % (Auto) 0.0, Baso % (Auto) 0.0, Absolute Neuts (auto) 6.9, Absolute Lymphs (auto) 0.40 L, Nucleated RBC % 0, Differential Comment SCANNED 04/20/20 05:58: Sodium 119 L*, Potassium 3.1 L, Chloride 80 L, Carbon Dioxide 34.0 H, Anion Gap 5, BUN 6 L, Creatinine 0.31 L, Estim Creat Clear Calc 41.45, Est GFR (MDRD) Af Amer 271, Est GFR (MDRD) Non-Af 224, BUN/Creatinine Ratio 19.4, Glucose 139 H, Calcium 8.3 L Clinical Impression(s) from Imaging Studies Chest X-Ray 04/18/20 08:39 IMPRESSION: Increasing bilateral pleural effusions right greater than left with bibasilar atelectasis and/or infiltrate. Residual infiltration in the left perihilar region although there has been improvement Inpatient E&M: 50324 Subs Hosp L3
[2020-04-20] MEDS: Albumin Human 25% (100 mL) 25 GM/100 ML BAG IV ×2 (16:47→23:17)
[2020-04-21] VITALS (13 sets, daily range): BP systolic 106–146; BP diastolic 56–76; PULSE 74–101; RESP 15–20; TEMP 36.3–36.6; O2SAT 87–100
[2020-04-21] MEDS: 0.9% Saline Lock 10 ML Syringe IV ×3 (00:55→14:04)
[2020-04-21] MEDS: Albuterol 2.5 MG/3 ML VIAL.NEB. INHALATION (04:41)
[2020-04-21 06:20] LABS: Absolute Lymphocyte Count 0.68 X10^3/uL (0.83-4.51); Absolute Neutrophil Count 7.2 X10^3/uL (2.0-7.7); Eosinophil# 0.14 X10^3/uL; Eosinophils% 1.6 % (0-5); Hematocrit 30.6 % (37-47); Hemoglobin 8.9 g/dL (12.0-15.0); Lymphocyte # 0.68 X10^3/ul (4.0); Lymphocyte % 7.5 % (19-41); Mean Corp Hgb Conc 29.1 g/dL (32-36); Mean Corpuscular Hgb 21.8 pg (27.0-32.0); Mean Corpuscular Volume 74.8 fL (81-99); Mean Platelet Vol. 8.8 fl (6.2-12.0); Monocyte# 0.96 X10^3/uL; Monocyte% 10.6 % (0-10); NRBC Flagged by Analyzer 0 % (0-5); Neutrophil # 7.21 X10^3/uL (2.7-7.7); Neutrophil % 79.9 % (47-70); POSITIVE MORPHOLOGY YES; Platelet Count 278 K/mm3 (150-450); RBC Distribution Width CV 16.9 % (11.6-14.6); RBC Distribution Width SD 45.5 fl (35.1-43.9); Red Blood Count 4.09 M/mm3 (4.2-5.4)
[2020-04-21 06:28] LABS: Differential Indicated SCAN CRITERIA MET
[2020-04-21] MEDS: SODIUM CHLORIDE 1 GM TABLET 3 GM PO ×3 (06:30→21:47)
[2020-04-21] MEDS: Heparin Injection (Vial) 5,000 UNIT/ML VIAL 5000 UNIT SC ×3 (06:30→21:49)
[2020-04-21] MEDS: Furosemide 40 MG/4 ML Vial IV ×2 (06:30→14:04)
[2020-04-21] MEDS: Nystatin Powder 15gm Bottle 1 APPLIC TOPICAL ×3 (06:33→21:45)
[2020-04-21 06:54] LABS: Anion Gap 6 (5-15); BUN 6 mg/dL (7-18); Calcium,Total 8.8 mg/dL (8.5-10.1); Chloride 79 mmol/L (98-107); EST Glomerular Filtration Rate 129 mL/min (>60); Est Glom Filt Rate - Afr Amer 156 mL/min (>60); Estimated Creatinine Clearance 41.45 ml/min; Glucose 121 mg/dL (74-106); Magnesium 1.4 mg/dL (1.6-2.6); Potassium 2.8 mmol/L (3.5-5.1); Sodium Level 123 mmol/L (136-145)
[2020-04-21] MEDS: Ipratropium/Albuterol Sulfate 3 ML AMPUL.NEB INHALATION ×4 (07:00→18:58)
[2020-04-21 07:26] LABS: Differential Comment SCANNED
--- NOTE | 2020-04-21 08:03 | PCM.PN.PUL ---
Patient Problems: Active and Suspected Problems (Last Reviewed 01/25/20 @ 10:49 by RAFAEL Conner) Hyponatremia (Acute) COPD exacerbation (Acute) Subjective: The patient was seen and examined at the bedside this morning. Events from the last 24 hours have been reviewed. The patient is currently afebrile, hemodynamically stable and maintaining appropriate oxygen saturations on 2 L/min via nasal cannula. The patient remains on scheduled IV Lasix. Sodium has improved this morning to 123. However, potassium is low at 2.8. Magnesium is also low at 1.4. Breathing quality overall continues to improve. Objective: The patient's most recent lab work, culture data and imaging studies have all been personally reviewed. Pleural fluid culture has shown no growth to date. - Physical Exam Vitals/I&O's: Vital Signs Temp Pulse Resp BP Pulse Ox 97.7 F L 98 20 H 146/76 H 95 04/21/20 03:51 04/21/20 07:00 04/21/20 04:41 04/21/20 03:51 04/21/20 03:51 Oxygen Flow Rate (L/min) [4] 2 Oxygen Flow Rate (L/min) [3] 2 Oxygen Flow Rate (L/min) [2] 2 Oxygen Flow Rate (L/min) [1 ( 2 Initial Baseline)] Oxygen Flow Rate (L/min) 2 Oxygen Delivery Method [4] Nasal Cannula Oxygen Delivery Method [3] Nasal Cannula Oxygen Delivery Method [2] Nasal Cannula Oxygen Delivery Method [1 ( Nasal Cannula Initial Baseline)] Oxygen Delivery Method Nasal Cannula Weight: 182 lb 1.629 oz Body Mass Index (BMI) 36.1 Intake and Output for Last 24 Hours 04/19/20 04/20/20 04/21/20 23:59 23:59 23:59 Intake Total 2110 / 2110 1530 / 1530 358 / 358 Output Total 5000 / 5000 4000 / 4000 2150 / 2150 Balance -2890 / -2890 -2470 / -2470 -1792 / -1792 General: Alert, Cooperative, No apparent distress HEENT: Atraumatic, Normocephalic Oral: No Gingival or Mucosal Lesions/ Ulcerations Neck: Supple, No Nodes, Trachea Midline Lungs: Diminished, - - No conversational dyspnea Cardiovascular: Normal S1, Normal S2, Irregular Rate, Murmur Abdomen: Bowel Sounds Present, Soft, Non Tender Extremities: No clubbing, No cyanosis, - - Improving edema Skin: - - No significant change from previous Musculoskeletal: No Tenderness to Palpation of Joints or Extremities, No Muscle Wasting Lymphatic: No Cervical, Supraclavicular, or Inguinal Adenopathy Neurological: Cranial nerves II-XII grossly intact, Neuro grossly intact Psych/Mental Status: Flat Affect Labs (Last 48 Hours) 04/19/20 04/19/20 04/19/20 06:41 06:41 06:41 WBC RBC Hgb Hct MCV MCH MCHC RDW Std Deviation RDW Coeff of Mlaini Plt Count MPV Immature Gran % (Auto) Neut % (Auto) Lymph % (Auto) Fannin % (Auto) Eos % (Auto) Baso % (Auto) Absolute Neuts (auto) Absolute Lymphs (auto) Nucleated RBC % Differential Comment Sodium Potassium Chloride Carbon Dioxide Anion Gap BUN Creatinine Estim Creat Clear Calc Est GFR (MDRD) Af Amer Est GFR (MDRD) Non-Af BUN/Creatinine Ratio Glucose Serum Osmolality 235 L Calcium Magnesium Lactate Dehydrogenase 153 B-Natriuretic Peptide 1047.7 H Total Protein 6.5 Globulin 3.4 Albumin/Globulin Ratio 0.9 Urine Osmolality U Random Total Protein Ur Random Sodium Urine Creatinine Urine Potassium Urine Chloride Fluid Source Fluid Color Fluid Appearance Fluid WBC Fluid RBC Fluid Tot Cell Count Fld Polynuclear WBCs # Fld Polynuclear WBCs % Fluid Mononuclear WBCs Fld Mononuclear WBCs % Fluid Neutrophils Fluid Lymphocytes Fluid Macrophages Fl Pathologist Comment Fluid Glucose Fluid Total Protein Fluid LDH Fluid Comment 2 Miscellaneous Cytology 04/19/20 04/19/20 04/19/20 12:10 12:10 12:10 WBC RBC Hgb Hct MCV MCH MCHC RDW Std Deviation RDW Coeff of Malini Plt Count MPV Immature Gran % (Auto) Neut % (Auto) Lymph % (Auto) Fannin % (Auto) Eos % (Auto) Baso % (Auto) Absolute Neuts (auto) Absolute Lymphs (auto) Nucleated RBC % Differential Comment Sodium Potassium Chloride Carbon Dioxide Anion Gap BUN Creatinine Estim Creat Clear Calc Est GFR (MDRD) Af Amer Est GFR (MDRD) Non-Af BUN/Creatinine Ratio Glucose Serum Osmolality Calcium Magnesium Lactate Dehydrogenase B-Natriuretic Peptide Total Protein Globulin Albumin/Globulin Ratio Urine Osmolality 247 U Random Total Protein < 6.0 Ur Random Sodium Urine Creatinine < 13.00 Urine Potassium Urine Chloride Fluid Source Fluid Color Fluid Appearance Fluid WBC Fluid RBC Fluid Tot Cell Count Fld Polynuclear WBCs # Fld Polynuclear WBCs % Fluid Mononuclear WBCs Fld Mononuclear WBCs % Fluid Neutrophils Fluid Lymphocytes Fluid Macrophages Fl Pathologist Comment Fluid Glucose Fluid Total Protein Fluid LDH Fluid Comment 2 Miscellaneous Cytology 04/19/20 04/19/20 04/19/20 12:10 13:15 13:15 WBC RBC Hgb Hct MCV MCH MCHC RDW Std Deviation RDW Coeff of Malini Plt Count MPV Immature Gran % (Auto) Neut % (Auto) Lymph % (Auto) Fannin % (Auto) Eos % (Auto) Baso % (Auto) Absolute Neuts (auto) Absolute Lymphs (auto) Nucleated RBC % Differential Comment Sodium Potassium Chloride Carbon Dioxide Anion Gap BUN Creatinine Estim Creat Clear Calc Est GFR (MDRD) Af Amer Est GFR (MDRD) Non-Af BUN/Creatinine Ratio Glucose Serum Osmolality Calcium Magnesium Lactate Dehydrogenase B-Natriuretic Peptide Total Protein Globulin Albumin/Globulin Ratio Urine Osmolality U Random Total Protein Ur Random Sodium 81 Urine Creatinine Urine Potassium 23.0 Urine Chloride 101 Fluid Source THORACENTESIS Fluid Color YELLOW Fluid Appearance CLEAR Fluid WBC 0.108 Fluid RBC 0.003 Fluid Tot Cell Count 0.159 H Fld Polynuclear WBCs # 0.008 Fld Polynuclear WBCs % 7.4 Fluid Mononuclear WBCs 0.100 Fld Mononuclear WBCs % 92.6 Fluid Neutrophils 6 Fluid Lymphocytes 6 Fluid Macrophages 88 Fl Pathologist Comment May follow Fluid Glucose 127 H Fluid Total Protein 3.0 Fluid LDH 56 Fluid Comment 2 SEE COMMENT Miscellaneous Cytology 04/19/20 04/20/20 04/20/20 13:15 05:58 05:58 WBC 7.8 RBC 3.80 L Hgb 8.3 L Hct 28.2 L MCV 74.2 L MCH 21.8 L MCHC 29.4 L RDW Std Deviation 44.8 H RDW Coeff of Malini 17.0 H Plt Count 264 MPV 8.9 Immature Gran % (Auto) 0.800 Neut % (Auto) 88.7 H Lymph % (Auto) 5.2 L Fannin % (Auto) 5.3 Eos % (Auto) 0.0 Baso % (Auto) 0.0 Absolute Neuts (auto) 6.9 Absolute Lymphs (auto) 0.40 L Nucleated RBC % 0 Differential Comment SCANNED Sodium 119 L* Potassium 3.1 L Chloride 80 L Carbon Dioxide 34.0 H Anion Gap 5 BUN 6 L Creatinine 0.31 L Estim Creat Clear Calc 41.45 Est GFR (MDRD) Af Amer 271 Est GFR (MDRD) Non-Af 224 BUN/Creatinine Ratio 19.4 Glucose 139 H Serum Osmolality Calcium 8.3 L Magnesium Lactate Dehydrogenase B-Natriuretic Peptide Total Protein Globulin Albumin/Globulin Ratio Urine Osmolality U Random Total Protein Ur Random Sodium Urine Creatinine Urine Potassium Urine Chloride Fluid Source Fluid Color Fluid Appearance Fluid WBC Fluid RBC Fluid Tot Cell Count Fld Polynuclear WBCs # Fld Polynuclear WBCs % Fluid Mononuclear WBCs Fld Mononuclear WBCs % Fluid Neutrophils Fluid Lymphocytes Fluid Macrophages Fl Pathologist Comment Fluid Glucose Fluid Total Protein Fluid LDH Fluid Comment 2 Miscellaneous Cytology Pending 04/21/20 04/21/20 05:55 05:55 WBC 9.0 RBC 4.09 L Hgb 8.9 L Hct 30.6 L MCV 74.8 L MCH 21.8 L MCHC 29.1 L RDW Std Deviation 45.5 H RDW Coeff of Malini 16.9 H Plt Count 278 MPV 8.8 Immature Gran % (Auto) 0.400 Neut % (Auto) 79.9 H Lymph % (Auto) 7.5 L Fannin % (Auto) 10.6 H Eos % (Auto) 1.6 Baso % (Auto) 0.0 Absolute Neuts (auto) 7.2 Absolute Lymphs (auto) 0.68 L Nucleated RBC % 0 Differential Comment SCANNED Sodium 123 L Potassium 2.8 L Chloride 79 L Carbon Dioxide 38.0 H Anion Gap 6 BUN 6 L Creatinine 0.50 L Estim Creat Clear Calc 41.45 Est GFR (MDRD) Af Amer 156 Est GFR (MDRD) Non-Af 129 BUN/Creatinine Ratio 12.0 Glucose 121 H Serum Osmolality Calcium 8.8 Magnesium 1.4 L Lactate Dehydrogenase B-Natriuretic Peptide Total Protein Globulin Albumin/Globulin Ratio Urine Osmolality U Random Total Protein Ur Random Sodium Urine Creatinine Urine Potassium Urine Chloride Fluid Source Fluid Color Fluid Appearance Fluid WBC Fluid RBC Fluid Tot Cell Count Fld Polynuclear WBCs # Fld Polynuclear WBCs % Fluid Mononuclear WBCs Fld Mononuclear WBCs % Fluid Neutrophils Fluid Lymphocytes Fluid Macrophages Fl Pathologist Comment Fluid Glucose Fluid Total Protein Fluid LDH Fluid Comment 2 Miscellaneous Cytology Microbiology 04/19/20 13:15 Fluid - Thoracentesis Fluid Gram Stain - Final 04/19/20 13:15 Fluid - Thoracentesis Fluid Body Fluid Culture - Preliminary No growth-Final to follow 04/19/20 13:15 Fluid - Thoracentesis Fluid Anaerobic Culture - Preliminary No growth in 48 hours. Clinical Impression(s) from Imaging Studies Chest X-Ray 04/18/20 08:39 IMPRESSION: Increasing bilateral pleural effusions right greater than left with bibasilar atelectasis and/or infiltrate. Residual infiltration in the left perihilar region although there has been improvement. Electronically Signed: Kenneth Salinas, at 9:37 EDT , Service support , Chest X-Ray 04/19/20 05:55 IMPRESSION: Stable examination with the small right pleural effusion with right basilar atelectasis and/or infiltrate. Blunting of the left costophrenic angle with improved aeration of the left perihilar infiltrate. Electronically Signed: Kenneth Salinas, at 12:50 EDT , Service support , Chest X-Ray 04/19/20 05:55 IMPRESSION: Small right pleural effusion with right basilar infiltration. Electronically Signed: Kenneth Salinas, at 12:47 EDT , Service support , Chest X-Ray 04/19/20 05:55 IMPRESSION: Minimal left pleural effusion. Electronically Signed: Kenneth Salinas, at 12:46 EDT , Service support , Thoracentesis Ultrasound 04/19/20 10:32 IMPRESSION: Ultrasound-guided right thoracentesis. Electronically Signed: Kenneth Salinas at 14:06 EDT , Service support , Chest X-Ray 04/19/20 13:20 IMPRESSION: Status post right thoracentesis. No evidence of pneumothorax. Electronically Signed: Kenneth Salinas, at 14:07 EDT , Service support , Current Medications Acetaminophen (Tylenol) 650 mg PO Q6H PRN PRN PRN Reason: Pain Score 1-10/Temp > 100.7 F Al Hydroxide/Mg Hydroxide (Mylanta Ii) 30 ml PO Q6H PRN PRN PRN Reason: Gastric Burning Albuterol Sulfate (Ventolin Aerosols) 2.5 mg INHALATION Q2H PRN PRN PRN Reason: SOB/Wheezing Last Admin: 04/21/20 04:41 Dose: 2.5 mg Documented by: Albuterol/Ipratropium (Duoneb) 3 ml INHALATION Q4HWA.RT [facility] Last Admin: 04/21/20 07:00 Dose: 3 ml Documented by: Carvedilol (Coreg) 25 mg PO BID [facility] Last Admin: 04/20/20 22:43 Dose: 25 mg Documented by: Dextrose (D50w Syringe) 0 gm IV X1 PRN; Protocol PRN Reason: Hypoglycemia Furosemide (Lasix) 40 mg IV Q8 [facility] Last Admin: 04/21/20 06:30 Dose: 40 mg Documented by: Glucagon () 1 mg IM .X1 PRN PRN Reason: Hypoglycemia Guaifenesin (Mucinex) 1,200 mg PO BID [facility] Last Admin: 04/20/20 22:47 Dose: 1,200 mg Documented by: Heparin Sodium (Porcine) (Heparin Na) 5,000 unit SC Q8 [facility] Last Admin: 04/21/20 06:30 Dose: 5,000 unit Documented by: Melatonin (Melatonin) 3 mg PO QHS PRN PRN PRN Reason: INSOMNIA Morphine Sulfate () 2 mg IV Q3H PRN PRN PRN Reason: Pain Score 4-10/10 Nicotine (Nicoderm Cq (Pbkc)) 21 mg TRANSDERM. DAILY [facility] Last Admin: 04/20/20 09:42 Dose: Not Given Documented by: Nitroglycerin (Nitrostat) 0.4 mg SUBLINGUAL Q5M PRN PRN Reason: CARDIAC/CHEST PAIN Nystatin (Mycostatin Powder) 1 applic TOPICAL TID NIKKI; Protocol Last Admin: 04/21/20 06:33 Dose: 1 applicatio Documented by: Potassium Chloride (K-Dur) 40 meq PO BIDCM NIKKI Stop: 04/23/20 08:01 Last Admin: 04/20/20 16:19 Dose: 40 meq Documented by: Senna/Docusate Sodium (Senokot-S, Yesenia-Colace) 2 tablet PO BID PRN PRN PRN Reason: Constipation Sodium Chloride () 10 - 40 ml IV UD PRN PRN Reason: SALINE FLUSH Last Admin: 04/21/20 06:38 Dose: 20 ml Documented by: Sodium Chloride (Sodium Chloride) 3 gm PO TID NIKKI Last Admin: 04/21/20 06:30 Dose: 3 gm Documented by: Throat Lozenges (Cepacol Sore Throat Lozenge) 1 lozenge MUCOUS MEM Q2H PRN PRN PRN Reason: cough/sore throat Last Admin: 04/20/20 08:31 Dose: 1 lozenge Documented by: Medical Necessity - Tobacco Use Smoking Status: Current some day smoker Assessment/Plan All Active Problems (Last Reviewed 01/25/20 @ 10:49 by Jayleen Burr NP-C) Hyponatremia (Acute) COPD exacerbation (Acute) Thrush, oral (Resolved) RECOMMENDATIONS: 1. Continue scheduled diuretic therapy as tolerated by hemodynamics and renal function. Consider transitioning to PO regimen today. 2. Continue scheduled bronchodilator therapy. 3. Wean supplemental oxygen to maintain saturations at or above 90%. 4. Encourage incentive spirometer use and mobilize patient as tolerated. 5. Continue nicotine replacement therapy. 6. Aggressive electrolyte repletion. 7. Perform walking oximetry study prior to consideration for discharge home. 8. Outpatient pulmonary follow-up in 2 weeks as warranted. IMPRESSIONS: 1. Acute hypoxemic respiratory insufficiency Likely secondary to bilateral pleural effusions in the setting of decompensated heart failure. Agree with attempts at aggressive diuresis. The patient also underwent successful ultrasound guided thoracentesis with subsequent improvement in breathing quality. Per traditional Light's criteria, if at least one of the following three is fulfilled, the fluid would be considered an exudate: 1. Pleural fluid protein/serum protein ratio greater than 0.5 2. Pleural fluid LDH/serum LDH ratio greater than 0.6 3. Pleural fluid LDH greater than two thirds the upper limits of the laboratories normal serum LDH Based upon my review of the patient's pleural fluid analysis, along with serum LDH and total protein levels, the pleural fluid would be considered transudative in nature. Recommend continuing to wean supplemental oxygen to maintain saturations at or above 90%. Encourage incentive spirometer use and mobilize patient as tolerated. 2. Baseline severe COPD Continue scheduled bronchodilators and inhaled corticosteroid. I do not see an indication for systemic corticosteroids at this time. 3. Non-small cell carcinoma of the lung The patient is currently under the management of [facility] oncology. 4. Continuous tobacco dependency Tobacco cessation counseling provided. Nicotine replacement therapy will be continued while admitted to the hospital. 5. Paroxysmal atrial fibrillation/history of breast CA/hypertension/hyponatremia/hypokalemia Complicates care, management, recovery and prognosis. Suspect electrolyte abnormalities are related to state of hypervolemia. Continue Lasix as ordered. This note was generated with Hang w/ dictation software. It may contain incorrect words, spelling, and punctuation that were not noted in checking the note before signing. Inpatient E&M: 43646 Subs Hosp L2
[2020-04-21] MEDS: Magnesium Sulfate 4gm/100mL 4 GM/100 ML IV.SOLN. IV (09:03)
[2020-04-21] MEDS: Potassium Chloride 10mEq/100mL 10 MEQ/100 ML IV.SOLN. 100 MEQ IV BOLUS ×4 (09:33→12:49)
[2020-04-21] MEDS: guaiFENesin 1,200 MG Tablet 1200 MG PO ×2 (09:34→21:48)
[2020-04-21] MEDS: Carvedilol 25 MG Tablet PO ×2 (09:34→21:47)
[2020-04-21 10:20] LABS: Pathologist Comment/Body Fluid Reviewed
--- NOTE | 2020-04-21 14:40 | PCM.PN.HOSP ---
Patient Problems: Active and Suspected Problems (Last Reviewed 01/25/20 @ 10:49 by RAFAEL Conner) Hyponatremia (Acute) COPD exacerbation (Acute) Reason for Visit: Acute hypoxic respiratory failure secondary to COPD and CHF exacerbation and hyponatremia. Vitals/I&O's: Vital Signs Temp Pulse Resp BP Pulse Ox 97.3 F L 74 20 H 137/56 H 95 04/21/20 09:10 04/21/20 11:00 04/21/20 10:58 04/21/20 09:10 04/21/20 10:58 Oxygen Flow Rate (L/min) [4] 2 Oxygen Flow Rate (L/min) [3] 2 Oxygen Flow Rate (L/min) [2] 2 Oxygen Flow Rate (L/min) [1 ( 2 Initial Baseline)] Oxygen Flow Rate (L/min) 2 Oxygen Delivery Method [4] Nasal Cannula Oxygen Delivery Method [3] Nasal Cannula Oxygen Delivery Method [2] Nasal Cannula Oxygen Delivery Method [1 ( Nasal Cannula Initial Baseline)] Oxygen Delivery Method Nasal Cannula Weight: 182 lb 1.629 oz Body Mass Index (BMI) 36.1 Intake and Output for Last 24 Hours 04/19/20 04/20/20 04/21/20 23:59 23:59 23:59 Intake Total 2110 / 2110 1530 / 1530 978 / 978 Output Total 5000 / 5000 4000 / 4000 3950 / 3950 Balance -2890 / -2890 -2470 / -2470 -2972 / -2972 Microbiology Past 72 Hours 04/19/20 13:15 Fluid - Thoracentesis Fluid Gram Stain - Final 04/19/20 13:15 Fluid - Thoracentesis Fluid Body Fluid Culture - Preliminary No growth-Final to follow 04/19/20 13:15 Fluid - Thoracentesis Fluid Anaerobic Culture - Preliminary No growth in 48 hours. Laboratory Results 04/19/20 13:15: Fl Pathologist Comment Reviewed 04/21/20 05:55: WBC 9.0, RBC 4.09 L, Hgb 8.9 L, Hct 30.6 L, MCV 74.8 L, MCH 21.8 L, MCHC 29.1 L, RDW Std Deviation 45.5 H, RDW Coeff of Malini 16.9 H, Plt Count 278, MPV 8.8, Immature Gran % (Auto) 0.400, Neut % (Auto) 79.9 H, Lymph % (Auto) 7.5 L, Navarro % (Auto) 10.6 H, Eos % (Auto) 1.6, Baso % (Auto) 0.0, Absolute Neuts (auto) 7.2, Absolute Lymphs (auto) 0.68 L, Nucleated RBC % 0, Differential Comment SCANNED 04/21/20 05:55: Sodium 123 L, Potassium 2.8 L, Chloride 79 L, Carbon Dioxide 38.0 H, Anion Gap 6, BUN 6 L, Creatinine 0.50 L, Estim Creat Clear Calc 41.45, Est GFR (MDRD) Af Amer 156, Est GFR (MDRD) Non-Af 129, BUN/Creatinine Ratio 12.0, Glucose 121 H, Calcium 8.8, Magnesium 1.4 L Current Medications Acetaminophen (Tylenol) 650 mg PO Q6H PRN PRN PRN Reason: Pain Score 1-10/Temp > 100.7 F Al Hydroxide/Mg Hydroxide (Mylanta Ii) 30 ml PO Q6H PRN PRN PRN Reason: Gastric Burning Albuterol Sulfate (Ventolin Aerosols) 2.5 mg INHALATION Q2H PRN PRN PRN Reason: SOB/Wheezing Last Admin: 04/21/20 04:41 Dose: 2.5 mg Documented by: Albuterol/Ipratropium (Duoneb) 3 ml INHALATION Q4HWA.RT [facility] Last Admin: 04/21/20 14:33 Dose: 3 ml Documented by: Carvedilol (Coreg) 25 mg PO BID [facility] Last Admin: 04/21/20 09:34 Dose: 25 mg Documented by: Dextrose (D50w Syringe) 0 gm IV X1 PRN; Protocol PRN Reason: Hypoglycemia Furosemide (Lasix) 40 mg IV Q8 [facility] Last Admin: 04/21/20 14:04 Dose: 40 mg Documented by: Glucagon () 1 mg IM .X1 PRN PRN Reason: Hypoglycemia Guaifenesin (Mucinex) 1,200 mg PO BID [facility] Last Admin: 04/21/20 09:34 Dose: 1,200 mg Documented by: Heparin Sodium (Porcine) (Heparin Na) 5,000 unit SC Q8 [facility] Last Admin: 04/21/20 14:08 Dose: 5,000 unit Documented by: Melatonin (Melatonin) 3 mg PO QHS PRN PRN PRN Reason: INSOMNIA Morphine Sulfate () 2 mg IV Q3H PRN PRN PRN Reason: Pain Score 4-10/10 Nicotine (Nicoderm Cq (Pbkc)) 21 mg TRANSDERM. DAILY [facility] Last Admin: 04/21/20 09:34 Dose: Not Given Documented by: Nitroglycerin (Nitrostat) 0.4 mg SUBLINGUAL Q5M PRN PRN Reason: CARDIAC/CHEST PAIN Nystatin (Mycostatin Powder) 1 applic TOPICAL TID NIKKI; Protocol Last Admin: 04/21/20 14:10 Dose: 1 applicatio Documented by: Potassium Chloride (K-Dur) 40 meq PO BIDCM NIKKI Stop: 04/23/20 08:01 Last Admin: 04/21/20 08:39 Dose: 40 meq Documented by: Senna/Docusate Sodium (Senokot-S, Yesenia-Colace) 2 tablet PO BID PRN PRN PRN Reason: Constipation Sodium Chloride () 10 - 40 ml IV UD PRN PRN Reason: SALINE FLUSH Last Admin: 04/21/20 14:04 Dose: 10 ml Documented by: Sodium Chloride (Sodium Chloride) 3 gm PO TID NIKKI Last Admin: 04/21/20 14:02 Dose: 3 gm Documented by: Throat Lozenges (Cepacol Sore Throat Lozenge) 1 lozenge MUCOUS MEM Q2H PRN PRN PRN Reason: cough/sore throat Last Admin: 04/20/20 08:31 Dose: 1 lozenge Documented by: STROKE Vital Signs/Narrative: Vital Signs Pulse Resp Pulse Ox 04/21/20 11:00 74 04/21/20 10:58 89 20 H 95 Medical Necessity - Tobacco Use Smoking Status: Current some day smoker Assessment/Plan All Active Problems (Last Reviewed 01/25/20 @ 10:49 by Jayleen Burr NP-C) Hyponatremia (Acute) COPD exacerbation (Acute) Thrush, oral (Resolved) The patient is a 74 year old F with multiple comorbidities as listed above including chronic hypoxic respiratory failure on 2 L of oxygen on exertion and CHF came to ER with progressive worsening shortness of breath for 2 days along with lower extremity edema and chest x-ray suggestive bilateral pleural effusion consistent with chronic hypoxic respiratory failure secondary to CHF exacerbation. Significant abnormal initial ED lab work was sodium 114, chloride 77, BNP 1251, alkaline phosphatase 171. Chest x-ray was individually reviewed and shows bilateral increasing pleural effusion right more than left with bibasilar atelectasis and/or infiltrate. Twelve-lead EKG shows A. fib at 86/min, QTC 460 ms. 1. Chronic hypoxic respiratory failure secondary to mainly CHF but mild COPD exacerbation: The patient is being admitted in PCU. On Lasix 40 mg IV twice daily. CHF core measures with fluid and salt restriction, daily weight measurement, strict intake and output, beta-donovan. Hold EVELIN inhibitor and blood pressure was lower 108/67. 04/20: Breathing is improved after thoracocentesis and Lasix. 2. Acute on chronic hyponatremia most likely hypotonic hypervolemic from CHF: Sodium is 114. She was given 100 mL of 3% sodium chloride in ER and Lasix 40 mg IV. 04/19: Patient was given about 150 mL of 3% sodium chloride on 04/18 but he still did not show good response, sodium went from 114-116. At night, night hospital started on normal saline 100 mils per hour which was discontinued in the morning. Subsequently started on sodium chloride tablet after discussion with pharmacist. Nephrology consult for further comanagement. Urine osmolality 247, sodium 81, potassium 23, chloride 101. Serum osmolality 235. 04/20: Discussed with the post acute care registered nurse. As tolvaptan is not available in pharmacy, okay with sodium tablets 3 g 3 times daily 04/21: Sodium gradually improving, today 123. Urine osmolality slightly more than serum osmolality. 3. CHF exacerbation with bilateral pleural effusion: Repeat chest x-ray tomorrow a.m. Hold Xarelto if she requires thoracocentesis. Previous echo in September 2019 EF 37% with moderately severe MR, moderate. TR with RVSP 60 mm history of moderate pulmonary hypertension. This was a decrease from EF 50% in April 2018. Last thoracocentesis in September 2019 during previous admission 850 mils and was of transudate nature. 04/19: Discussed with the precision farming specialist. Advised to proceed with ultrasound-guided thoracocentesis. Pleural fluid for chemistry, cell count culture and cytology was done. As per lights criteria, pleural fluid analysis is transudate. Total WBC count 108, polymorph 7%, mononuclear 93%. Pleural fluid Gram stain no organism 04/20: Lasix increased to 40 mg IV 3 times daily as per post acute care registered nurse recommendation along with IV albumin 85% every 12 hourly. Mild hypokalemia, potassium being replaced. Monitor electrolytes, urine output. Patient had -5.5 L fluid balance. 7: Patient had about -10 L negative fluid balance. Patient lost about 21 to 22 pounds. Lasix decreased to 40 mg IV twice daily. Hypokalemia and hypomagnesemia, magnesium and potassium are getting replaced. 4. Mild COPD exacerbation: DuoNeb every 4 hourly. Low-dose Solu-Medrol IV, switch to prednisone tomorrow a.m. Incentive spirometry, PEP and chest physiotherapy. 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 04/19 on a scheduled bronchodilator. Incentive spirometry, pep, Mucinex and bronchopulmonary hygiene. 04/20: Patient encouraged for incentive spirometry and pep. Prednisone is discontinued as the steroid will promote fluid and salt retention. 04/21: Pleural fluid culture shows no growth. Thoracocentesis negative for malignant cells. 5. Non-small cell carcinoma of lung, left upper lobe: She has CT-guided biopsy of left upper lobe mass reported non-small cell carcinoma favor adenocarcinoma consistent with lung primary. Patient completed radiotherapy about a year ago. Follows Dr. Cazares. 6. Chronic A. fib on Xarelto: 7. Hypertension: Currently on lower side. Hold lisinopril. 8. Continued smoking cigarette/nicotine dependence: Counseled on cessation. Nicotine patch offered. 9. DVT prophylaxis: Heparin 5000 units TID. Total time of the visit including total time spent in counseling or coordination of care, (more than 50% of the total time, spent in obtaining medical information from nurses and other ancillary care providers), discussion with consultants, post acute care registered nurse and precision farming specialist, updated the clinical information to and at the bedside, review of labs and imaging is 30 minutes Microbiology Past 72 Hours 04/19/20 13:15 Fluid - Thoracentesis Fluid Gram Stain - Final 04/19/20 13:15 Fluid - Thoracentesis Fluid Body Fluid Culture - Preliminary No growth-Final to follow 04/19/20 13:15 Fluid - Thoracentesis Fluid Anaerobic Culture - Preliminary No growth in 48 hours. Laboratory Results 04/19/20 13:15: Fl Pathologist Comment Reviewed 04/21/20 05:55: WBC 9.0, RBC 4.09 L, Hgb 8.9 L, Hct 30.6 L, MCV 74.8 L, MCH 21.8 L, MCHC 29.1 L, RDW Std Deviation 45.5 H, RDW Coeff of Malini 16.9 H, Plt Count 278, MPV 8.8, Immature Gran % (Auto) 0.400, Neut % (Auto) 79.9 H, Lymph % (Auto) 7.5 L, Navarro % (Auto) 10.6 H, Eos % (Auto) 1.6, Baso % (Auto) 0.0, Absolute Neuts (auto) 7.2, Absolute Lymphs (auto) 0.68 L, Nucleated RBC % 0, Differential Comment SCANNED 04/21/20 05:55: Sodium 123 L, Potassium 2.8 L, Chloride 79 L, Carbon Dioxide 38.0 H, Anion Gap 6, BUN 6 L, Creatinine 0.50 L, Estim Creat Clear Calc 41.45, Est GFR (MDRD) Af Amer 156, Est GFR (MDRD) Non-Af 129, BUN/Creatinine Ratio 12.0, Glucose 121 H, Calcium 8.8, Magnesium 1.4 L Clinical Impression(s) from Imaging Studies Chest X-Ray 04/18/20 08:39 IMPRESSION: Increasing bilateral pleural effusions right greater than left with bibasilar atelectasis and/or infiltrate. Residual infiltration in the left perihilar region although there has been improvement Inpatient E&M: 67178 Subs Hosp L3
--- NOTE | 2020-04-21 16:12 | PCM.PN.REN ---
Patient Problems: Active and Suspected Problems (Last Reviewed 01/25/20 @ 10:49 by RAFAEL Conner) Hyponatremia (Acute) COPD exacerbation (Acute) Subjective: no new events urine output is good - Physical Exam Vitals/I&O's: Vital Signs Temp Pulse Resp BP Pulse Ox 97.3 F L 82 20 H 137/56 H 95 04/21/20 09:10 04/21/20 15:00 04/21/20 14:33 04/21/20 09:10 04/21/20 10:58 Oxygen Flow Rate (L/min) [4] 2 Oxygen Flow Rate (L/min) [3] 2 Oxygen Flow Rate (L/min) [2] 2 Oxygen Flow Rate (L/min) [1 ( 2 Initial Baseline)] Oxygen Flow Rate (L/min) 2 Oxygen Delivery Method [4] Nasal Cannula Oxygen Delivery Method [3] Nasal Cannula Oxygen Delivery Method [2] Nasal Cannula Oxygen Delivery Method [1 ( Nasal Cannula Initial Baseline)] Oxygen Delivery Method Nasal Cannula Weight: 82.6 kg Body Mass Index (BMI) 36.1 Intake and Output for Last 24 Hours 04/19/20 04/20/20 04/21/20 23:59 23:59 23:59 Intake Total 2110 / 2110 1530 / 1530 978 / 978 Output Total 5000 / 5000 4000 / 4000 3950 / 3950 Balance -2890 / -2890 -2470 / -2470 -2972 / -2972 General: Alert, Oriented x3, Cooperative HEENT: Atraumatic, PERRLA, EOMI, Normocephalic Neck: Supple, No JVD, Negative Carotid Bruits Lungs: Clear to auscultation, Normal air movement Cardiovascular: Regular rate, No murmurs Abdomen: Bowel Sounds Present, Soft, Non Tender Extremities: Capillary Refill Less than 3 Seconds, Edema Skin: No rashes, No breakdown Musculoskeletal: No Tenderness to Palpation of Joints or Extremities Neurological: Cranial nerves II-XII grossly intact Psych/Mental Status: Normal Affect, Appropriate Microbiology Past 72 Hours 04/19/20 13:15 Fluid - Thoracentesis Fluid Gram Stain - Final 04/19/20 13:15 Fluid - Thoracentesis Fluid Body Fluid Culture - Preliminary No growth-Final to follow 04/19/20 13:15 Fluid - Thoracentesis Fluid Anaerobic Culture - Preliminary No growth in 48 hours. Laboratory Results 04/19/20 13:15: Fl Pathologist Comment Reviewed 04/21/20 05:55: WBC 9.0, RBC 4.09 L, Hgb 8.9 L, Hct 30.6 L, MCV 74.8 L, MCH 21.8 L, MCHC 29.1 L, RDW Std Deviation 45.5 H, RDW Coeff of Malini 16.9 H, Plt Count 278, MPV 8.8, Immature Gran % (Auto) 0.400, Neut % (Auto) 79.9 H, Lymph % (Auto) 7.5 L, Rich % (Auto) 10.6 H, Eos % (Auto) 1.6, Baso % (Auto) 0.0, Absolute Neuts (auto) 7.2, Absolute Lymphs (auto) 0.68 L, Nucleated RBC % 0, Differential Comment SCANNED 04/21/20 05:55: Sodium 123 L, Potassium 2.8 L, Chloride 79 L, Carbon Dioxide 38.0 H, Anion Gap 6, BUN 6 L, Creatinine 0.50 L, Estim Creat Clear Calc 41.45, Est GFR (MDRD) Af Amer 156, Est GFR (MDRD) Non-Af 129, BUN/Creatinine Ratio 12.0, Glucose 121 H, Calcium 8.8, Magnesium 1.4 L Current Medications Acetaminophen (Tylenol) 650 mg PO Q6H PRN PRN PRN Reason: Pain Score 1-10/Temp > 100.7 F Al Hydroxide/Mg Hydroxide (Mylanta Ii) 30 ml PO Q6H PRN PRN PRN Reason: Gastric Burning Albuterol Sulfate (Ventolin Aerosols) 2.5 mg INHALATION Q2H PRN PRN PRN Reason: SOB/Wheezing Last Admin: 04/21/20 04:41 Dose: 2.5 mg Documented by: Albuterol/Ipratropium (Duoneb) 3 ml INHALATION Q4HWA.RT [facility] Last Admin: 04/21/20 14:33 Dose: 3 ml Documented by: Carvedilol (Coreg) 25 mg PO BID [facility] Last Admin: 04/21/20 09:34 Dose: 25 mg Documented by: Dextrose (D50w Syringe) 0 gm IV X1 PRN; Protocol PRN Reason: Hypoglycemia Furosemide (Lasix) 40 mg IV Q12 [facility] Glucagon () 1 mg IM .X1 PRN PRN Reason: Hypoglycemia Guaifenesin (Mucinex) 1,200 mg PO BID [facility] Last Admin: 04/21/20 09:34 Dose: 1,200 mg Documented by: Heparin Sodium (Porcine) (Heparin Na) 5,000 unit SC Q8 [facility] Last Admin: 04/21/20 14:08 Dose: 5,000 unit Documented by: Melatonin (Melatonin) 3 mg PO QHS PRN PRN PRN Reason: INSOMNIA Morphine Sulfate () 2 mg IV Q3H PRN PRN PRN Reason: Pain Score 4-10/10 Nicotine (Nicoderm Cq (Pbkc)) 21 mg TRANSDERM. DAILY [facility] Last Admin: 04/21/20 09:34 Dose: Not Given Documented by: Nitroglycerin (Nitrostat) 0.4 mg SUBLINGUAL Q5M PRN PRN Reason: CARDIAC/CHEST PAIN Nystatin (Mycostatin Powder) 1 applic TOPICAL TID [facility]; Protocol Last Admin: 04/21/20 14:10 Dose: 1 applicatio Documented by: Potassium Chloride (K-Dur) 40 meq PO BIDCM [facility] Stop: 04/23/20 08:01 Last Admin: 04/21/20 08:39 Dose: 40 meq Documented by: Senna/Docusate Sodium (Senokot-S, Yesenia-Colace) 2 tablet PO BID PRN PRN PRN Reason: Constipation Sodium Chloride () 10 - 40 ml IV UD PRN PRN Reason: SALINE FLUSH Last Admin: 04/21/20 14:04 Dose: 10 ml Documented by: Sodium Chloride (Sodium Chloride) 3 gm PO TID [facility] Last Admin: 04/21/20 14:02 Dose: 3 gm Documented by: Throat Lozenges (Cepacol Sore Throat Lozenge) 1 lozenge MUCOUS MEM Q2H PRN PRN PRN Reason: cough/sore throat Last Admin: 04/20/20 08:31 Dose: 1 lozenge Documented by: Medical Necessity - Tobacco Use Smoking Status: Current some day smoker Assessment/Plan All Active Problems (Last Reviewed 01/25/20 @ 10:49 by Jayleen Burr NP-C) Hyponatremia (Acute) COPD exacerbation (Acute) Thrush, oral (Resolved) Hyponatremia. Hypervolemic. has massive edema in lower extremities, pleural effusions responding well to IV lasix, legs have more wrinkles urine osm is not very high continue current medications hypokalemia. on repletion hypomagnesemia. repleted will stop salt tablets once sodium is closer to 130.
[2020-04-22] VITALS (9 sets, daily range): BP systolic 111–141; BP diastolic 47–69; PULSE 74–90; RESP 16–24; TEMP 36.7–36.8; O2SAT 92–98
[2020-04-22] MEDS: Ipratropium/Albuterol Sulfate 3 ML AMPUL.NEB INHALATION ×3 (03:36→11:09)
[2020-04-22] MEDS: SODIUM CHLORIDE 1 GM TABLET 3 GM PO (06:33)
[2020-04-22] MEDS: Heparin Injection (Vial) 5,000 UNIT/ML VIAL 5000 UNIT SC (06:34)
[2020-04-22 07:29] LABS: Anion Gap 4 (5-15); BUN 8 mg/dL (7-18); BUN/Creat Ratio 20.1 RATIO (10-20); Calcium,Total 8.7 mg/dL (8.5-10.1); Chloride 85 mmol/L (98-107); EST Glomerular Filtration Rate 167 mL/min (>60); Est Glom Filt Rate - Afr Amer 202 mL/min (>60); Estimated Creatinine Clearance 41.45 ml/min; Glucose 99 mg/dL (74-106); Magnesium 2.3 mg/dL (1.6-2.6); Potassium 3.9 mmol/L (3.5-5.1); Sodium Level 127 mmol/L (136-145)
--- NOTE | 2020-04-22 08:32 | PN_ITS ---
Subjective: The patient was seen and examined at the bedside this morning. Events from the last 24 hours have been reviewed. The patient is currently afebrile, hemodynamically stable and maintaining appropriate oxygen saturations on 2 L/min via nasal cannula. Breathing quality has improved and has returned back to baseline. Sodium has improved to 127 this morning. Objective: The patient's most recent lab work, culture data and imaging studies have all been personally reviewed. Pleural fluid culture has shown no growth to date. - Physical Exam Vitals/I&O's: Vital Signs Temp Pulse Resp BP Pulse Ox 98.0 F 90 20 H 141/69 H 98 04/22/20 03:09 04/22/20 07:55 04/22/20 03:36 04/22/20 03:09 04/22/20 03:09 Oxygen Flow Rate (L/min) [4] 2 Oxygen Flow Rate (L/min) [3] 2 Oxygen Flow Rate (L/min) [2] 2 Oxygen Flow Rate (L/min) [1 ( 2 Initial Baseline)] Oxygen Flow Rate (L/min) 2 Oxygen Delivery Method [4] Nasal Cannula Oxygen Delivery Method [3] Nasal Cannula Oxygen Delivery Method [2] Nasal Cannula Oxygen Delivery Method [1 ( Nasal Cannula Initial Baseline)] Oxygen Delivery Method Nasal Cannula Weight: 177 lb 4.026 oz Body Mass Index (BMI) 36.1 Intake and Output for Last 24 Hours 04/20/20 04/21/20 04/22/20 23:59 23:59 23:59 Intake Total 1530 / 1530 1488 / 1488 120 / 120 Output Total 4000 / 4000 5675 / 5675 150 / 150 Balance -2470 / -2470 -4187 / -4187 -30 / -30 General: Alert, Cooperative, No apparent distress HEENT: Atraumatic, PERRLA, Normocephalic Oral: Moist Mucosa, No Gingival or Mucosal Lesions/ Ulcerations Neck: Supple, No Nodes, Trachea Midline Lungs: Diminished Cardiovascular: Irregular Rate, Murmur Abdomen: Bowel Sounds Present, Soft, Non Tender Extremities: No clubbing, No cyanosis Skin: No breakdown Musculoskeletal: No Tenderness to Palpation of Joints or Extremities Lymphatic: No Cervical, Supraclavicular, or Inguinal Adenopathy Neurological: Cranial nerves II-XII grossly intact, Neuro grossly intact Psych/Mental Status: Flat Affect Labs (Last 48 Hours) 06/30/20 07/01/20 07/02/20 13:15 05:58 05:55 WBC 9.0 RBC 4.09 L Hgb 8.9 L Hct 30.6 L MCV 74.8 L MCH 21.8 L MCHC 29.1 L RDW Std Deviation 45.5 H RDW Coeff of Malini 16.9 H Plt Count 278 MPV 8.8 Immature Gran % (Auto) 0.400 Neut % (Auto) 79.9 H Lymph % (Auto) 7.5 L Taney % (Auto) 10.6 H Eos % (Auto) 1.6 Baso % (Auto) 0.0 Absolute Neuts (auto) 7.2 Absolute Lymphs (auto) 0.68 L Nucleated RBC % 0 Differential Comment SCANNED SCANNED Sodium Potassium Chloride Carbon Dioxide Anion Gap BUN Creatinine Estim Creat Clear Calc Est GFR (MDRD) Af Amer Est GFR (MDRD) Non-Af BUN/Creatinine Ratio Glucose Calcium Magnesium Fl Pathologist Comment Reviewed 04/21/20 04/22/20 05:55 06:45 WBC RBC Hgb Hct MCV MCH MCHC RDW Std Deviation RDW Coeff of Malini Plt Count MPV Immature Gran % (Auto) Neut % (Auto) Lymph % (Auto) Taney % (Auto) Eos % (Auto) Baso % (Auto) Absolute Neuts (auto) Absolute Lymphs (auto) Nucleated RBC % Differential Comment Sodium 123 L 127 L Potassium 2.8 L 3.9 Chloride 79 L 85 L Carbon Dioxide 38.0 H 38.0 H Anion Gap 6 4 L BUN 6 L 8 Creatinine 0.50 L 0.40 L Estim Creat Clear Calc 41.45 41.45 Est GFR (MDRD) Af Amer 156 202 Est GFR (MDRD) Non-Af 129 167 BUN/Creatinine Ratio 12.0 20.1 H Glucose 121 H 99 Calcium 8.8 8.7 Magnesium 1.4 L 2.3 Fl Pathologist Comment Microbiology 04/19/20 13:15 Fluid - Thoracentesis Fluid Gram Stain - Final 04/19/20 13:15 Fluid - Thoracentesis Fluid Body Fluid Culture - Preliminary No growth-Final to follow 04/19/20 13:15 Fluid - Thoracentesis Fluid Anaerobic Culture - Preliminary No growth in 48 hours. Clinical Impression(s) from Imaging Studies Chest X-Ray 04/18/20 08:39 IMPRESSION: Increasing bilateral pleural effusions right greater than left with bibasilar atelectasis and/or infiltrate. Residual infiltration in the left perihilar region although there has been improvement. Electronically Signed: Kenneth Salinas, at 9:37 EDT , Service support , Chest X-Ray 04/19/20 05:55 IMPRESSION: Stable examination with the small right pleural effusion with right basilar atelectasis and/or infiltrate. Blunting of the left costophrenic angle with improved aeration of the left perihilar infiltrate. Electronically Signed: Kenneth Salinas, at 12:50 EDT , Service support , Chest X-Ray 04/19/20 05:55 IMPRESSION: Small right pleural effusion with right basilar infiltration. Electronically Signed: Kenneth Salinas, at 12:47 EDT , Service support , Chest X-Ray 04/19/20 05:55 IMPRESSION: Minimal left pleural effusion. Electronically Signed: Kenneth Salinas at 12:46 EDT , Service support , Thoracentesis Ultrasound 04/19/20 10:32 IMPRESSION: Ultrasound-guided right thoracentesis. Electronically Signed: Kenneth Salinas at 14:06 EDT , Service support , Chest X-Ray 04/19/20 13:20 IMPRESSION: Status post right thoracentesis. No evidence of pneumothorax. Electronically Signed: Kenneth Salinas at 14:07 EDT , Service support , Current Medications Acetaminophen (Tylenol) 650 mg PO Q6H PRN PRN PRN Reason: Pain Score 1-10/Temp > 100.7 F Al Hydroxide/Mg Hydroxide (Mylanta Ii) 30 ml PO Q6H PRN PRN PRN Reason: Gastric Burning Albuterol Sulfate (Ventolin Aerosols) 2.5 mg INHALATION Q2H PRN PRN PRN Reason: SOB/Wheezing Last Admin: 04/21/20 04:41 Dose: 2.5 mg Documented by: Albuterol/Ipratropium (Duoneb) 3 ml INHALATION Q4HWA.RT ON LICENSE OF [facility] Last Admin: 04/22/20 06:49 Dose: 3 ml Documented by: Carvedilol (Coreg) 25 mg PO BID ON LICENSE OF [facility] Last Admin: 04/21/20 21:47 Dose: 25 mg Documented by: Dextrose (D50w Syringe) 0 gm IV X1 PRN; Protocol PRN Reason: Hypoglycemia Furosemide (Lasix) 40 mg IV Q12 ON LICENSE OF [facility] Glucagon () 1 mg IM .X1 PRN PRN Reason: Hypoglycemia Guaifenesin (Mucinex) 1,200 mg PO BID ON LICENSE OF [facility] Last Admin: 04/21/20 21:48 Dose: 1,200 mg Documented by: Heparin Sodium (Porcine) (Heparin Na) 5,000 unit SC Q8 ON LICENSE OF [facility] Last Admin: 04/22/20 06:34 Dose: 5,000 unit Documented by: Melatonin (Melatonin) 3 mg PO QHS PRN PRN PRN Reason: INSOMNIA Morphine Sulfate () 2 mg IV Q3H PRN PRN PRN Reason: Pain Score 4-10/10 Nicotine (Nicoderm Cq (Pbkc)) 21 mg TRANSDERM. DAILY ON LICENSE OF [facility] Last Admin: 04/21/20 09:34 Dose: Not Given Documented by: Nitroglycerin (Nitrostat) 0.4 mg SUBLINGUAL Q5M PRN PRN Reason: CARDIAC/CHEST PAIN Nystatin (Mycostatin Powder) 1 applic TOPICAL TID ON LICENSE OF [facility]; Protocol Last Admin: 04/22/20 06:34 Dose: Not Given Documented by: Potassium Chloride (K-Dur) 40 meq PO BIDCM ON LICENSE OF [facility] Stop: 04/23/20 08:01 Last Admin: 04/21/20 16:28 Dose: 40 meq Documented by: Senna/Docusate Sodium (Senokot-S, Yesenia-Colace) 2 tablet PO BID PRN PRN PRN Reason: Constipation Sodium Chloride () 10 - 40 ml IV UD PRN PRN Reason: SALINE FLUSH Last Admin: 04/21/20 14:04 Dose: 10 ml Documented by: Sodium Chloride (Sodium Chloride) 3 gm PO TID NIKKI Last Admin: 04/22/20 06:33 Dose: 3 gm Documented by: Throat Lozenges (Cepacol Sore Throat Lozenge) 1 lozenge MUCOUS MEM Q2H PRN PRN PRN Reason: cough/sore throat Last Admin: 04/20/20 08:31 Dose: 1 lozenge Documented by: Medical Necessity - Tobacco Use Smoking Status: Current some day smoker Assessment/Plan All Active Problems (Last Reviewed 01/25/20 @ 10:49 by Jayleen Burr NP-C) Hyponatremia (Acute) COPD exacerbation (Acute) Thrush, oral (Resolved) RECOMMENDATIONS: 1. Continue scheduled diuretic therapy as tolerated by hemodynamics and renal function. Consider transitioning to PO regimen today. 2. Continue scheduled bronchodilator therapy. 3. Wean supplemental oxygen to maintain saturations at or above 90%. 4. Encourage incentive spirometer use and mobilize patient as tolerated. 5. Continue nicotine replacement therapy. 6. Perform walking oximetry study prior to consideration for discharge home. 7. Outpatient pulmonary follow-up in 2 weeks as warranted. Okay for discharge from my perspective. Will sign off. IMPRESSIONS: 1. Acute hypoxemic respiratory insufficiency Likely secondary to bilateral pleural effusions in the setting of decompensated heart failure. Agree with attempts at aggressive diuresis. The patient also underwent successful ultrasound guided thoracentesis with subsequent improvement in breathing quality. Per traditional Light's criteria, if at least one of the following three is fulfilled, the fluid would be considered an exudate: 1. Pleural fluid protein/serum protein ratio greater than 0.5 2. Pleural fluid LDH/serum LDH ratio greater than 0.6 3. Pleural fluid LDH greater than two thirds the upper limits of the laboratories normal serum LDH Based upon my review of the patient's pleural fluid analysis, along with serum LDH and total protein levels, the pleural fluid would be considered transudative in nature. Recommend continuing to wean supplemental oxygen to maintain saturations at or above 90%. Encourage incentive spirometer use and mobilize patient as tolerated. 2. Baseline severe COPD Continue scheduled bronchodilators and inhaled corticosteroid. I do not see an indication for systemic corticosteroids at this time. 3. Non-small cell carcinoma of the lung The patient is currently under the management of [facility] oncology. 4. Continuous tobacco dependency Tobacco cessation counseling provided. Nicotine replacement therapy will be continued while admitted to the hospital. 5. Paroxysmal atrial fibrillation/history of breast CA/hypertension/hyp onatremia/hypokalemia Complicates care, management, recovery and prognosis. Suspect electrolyte abnormalities are related to state of hypervolemia. Continue Lasix as ordered. This note was generated with [employer] dictation software. It may contain incorrect words, spelling, and punctuation that were not noted in checking the note before signing. Inpatient E&M: 63576 Subs Hosp L2
[2020-04-22] MEDS: Furosemide 40 MG/4 ML Vial IV (08:47)
[2020-04-22] MEDS: 0.9% Saline Lock 10 ML Syringe IV (08:47)
--- NOTE | 2020-04-22 09:10 | PCM.DC ---
- Discharge Diagnoses Current Active Problems: Current Active and Chronic Problems (Last Reviewed 01/25/20 @ 10:49 by RAFAEL Conner) Hyponatremia (Acute) COPD exacerbation (Acute) You will use the following diet at home:: Cardiac Discharge Activity: May Not Drive Call your doctor if you observe: Fever of 101 or Higher, Coldness, Increased Pain, Numbness or Tingling, Inability to urinate, Inability to have a bowel movement, Shortness of breath, Dizziness, Fainting spells, Swelling in the ankles, Chest pain, Prolonged hiccoughing, Increased palpitations (irregular heartbeat), Calf discomfort, Uncontrolled pain Additional Instructions: Lasix was changed to Demadex for home medication 40 mg twice daily. SolTab were discontinued. Follow-up BMP on 04/25/2020 with the nursing consultant, Dr. Ying Allergies/Adverse Reactions: Allergies albuterol sulfate [From Combivent] Allergy (Verified 04/18/20 08:22) Swelling ipratropium bromide [From Combivent] Allergy (Verified 04/18/20 08:22) Swelling metoprolol Allergy (Verified 04/18/20 08:22) Laryngospasms Sulfa (Sulfonamide Antibiotics) Allergy (Verified 04/18/20 08:22) Rash beclomethasone [From Qvar] Adverse Reaction (Verified 04/18/20 08:22) COUGHING benzalkonium chloride [From Merthiolate (benzalkonium)] Adverse Reaction (Verified 04/18/20 08:22) Rash codeine Adverse Reaction (Verified 04/18/20 08:22) Chest tightness chest hurts doxycycline Adverse Reaction (Verified 04/18/20 08:22) Abd cramps/diarrhea formoterol fumarate [From Dulera] Adverse Reaction (Verified 04/18/20 08:22) PT UNSURE OF REACTION hydrochlorothiazide Adverse Reaction (Verified 04/18/20 08:22) PT UNSURE OF REACTION ibuprofen [From Advil] Adverse Reaction (Verified 04/18/20 08:22) PT UNSURE OF REACTION iodine Adverse Reaction (Verified 04/18/20 08:22) Itching merbromin Adverse Reaction (Verified 04/18/20 08:22) PT UNSURE OF REACTION mometasone furoate [From Dulera] Adverse Reaction (Verified 04/18/20 08:22) PT UNSURE OF REACTION oseltamivir [From Tamiflu] Adverse Reaction (Verified 04/18/20 08:22) uterine pain prednisone Adverse Reaction (Verified 04/18/20 08:22) Abd cramps/diarrhea PLASTIC TAPE Allergy (Uncoded 04/18/20 08:22) Rash Medications to take at Discharge Albuterol Inhaler [Ventolin Hfa] 1 - 2 puff INHALATION Q4H PRN PRN 10/16/16 Multivit-Min/Iron/Folic/Lutein [Centrum Silver Women Tablet] 1 tab PO DAILY 10/05/19 Handicap Placard #1 ea 10/22/19 fluticasone propionate 230 mcg-salmeterol 21 mcg/actuation HFA inhaler 2 puff INHALATION BID #1 device 01/25/20 rivaroxaban 20 mg tablet 20 mg PO DINNER #30 tab 01/25/20 tiotropium bromide 2.5 mcg/actuation mist for inhalation 2 puff INHALATION BID #4 g 01/25/20 carvedilol 25 mg tablet 25 mg PO BID #180 tab 02/25/20 Atorvastatin Calcium 20 mg PO DAILY #30 tab 04/22/20 Guaifenesin [Mucinex] 1,200 mg PO BID #14 tab 04/22/20 Nicotine [Nicoderm Cq] 21 mg TRANSDERM. DAILY #30 patch 04/22/20 Nystatin Powder [Mycostatin Powder] 1 applic TOPICAL TID #1 bottle 04/22/20 Potassium Chloride [K-Dur] 40 meq PO BIDCM #60 tab 04/22/20 Quinapril HCl [Accupril] 20 mg PO DAILY #180 tab 04/22/20 Torsemide [Demadex] 40 mg PO BID #120 tab 04/22/20 The following prescriptions were given: Atorvastatin Calcium 20 mg PO DAILY #30 tab Torsemide [Demadex] 40 mg PO BID #120 tab Transmission Status: Pending to [facility] #30 Potassium Chloride [K-Dur] 40 meq PO BIDCM #60 tab Transmission Status: Pending to [facility] Guaifenesin [Mucinex] 1,200 mg PO BID #14 tab Transmission Status: Pending to [facility] [employer] [facility]30 Nystatin Powder [Mycostatin Powder] 1 applic TOPICAL TID #1 bottle Transmission Status: Pending to [facility] [facility] [employer] [facility] Nicotine [Nicoderm Cq] 21 mg TRANSDERM. DAILY #30 patch Transmission Status: Pending to [facility] #30 Orders to be completed after discharge: Basic Metabolic Profile (BMP) Time Frame: 05/02/20, Facility: [facility], Location: Laboratory Primary Care Physician: Care Physician,No Primary [Primary Care Provider] - Please follow up with your Primary Care Physician in: in 2 weeks Test Results: Test results from this visit will be discussed in further detail at your follow-up appointment, if applicable. Please Follow Up With: Mark Campos DO When: Pulm office in 2 weeks Please Follow Up With: Apolinar Cazares DO When: in 4 weeks Please Follow Up With: Rusty Jovel MD When: in 4 weeks Please Follow Up With: Tony Ying MD When: in 1-2 weeks with BMP
--- NOTE | 2020-04-22 09:16 | PCM.DC.SUM ---
Discharge Date and Diagnosis Date of Admission: 04/18/20 Date of Discharge: 04/22/20 - Primary Discharge Diagnosis Acute Problems: Active Problems (Last Reviewed 01/25/20 @ 10:49 by RAFAEL Conner) Hyponatremia (Acute) COPD exacerbation (Acute) - Secondary Discharge Diagnosis Chronic Problems: Chronic Problems (Last Reviewed 01/25/20 @ 10:49 by RAFAEL Conner) Chronic respiratory failure with hypoxia (Chronic) Tobacco abuse (Chronic) Tobacco abuse counseling (Chronic) Dependent edema (Chronic) Bilateral leg ulcer (Chronic) Non-ischemic cardiomyopathy (Chronic) Paroxysmal atrial fibrillation (Chronic) Acute on chronic systolic (congestive) heart failure (Chronic) Secondary pulmonary arterial hypertension (Chronic) Non-rheumatic tricuspid valve insufficiency (Chronic) Nonrheumatic mitral (valve) insufficiency (Chronic) Essential (primary) hypertension (Chronic) Lung mass (Chronic) History of breast cancer (Chronic) COPD (chronic obstructive pulmonary disease) (Chronic) Nicotine dependence (Chronic) Chronic anticoagulation (Chronic) Hospital Course and Treatment Operations: None Summary of Care Provided: The patient is a 74 year old F with multiple comorbidities as listed above including chronic hypoxic respiratory failure on 2 L of oxygen on exertion and CHF came to ER with progressive worsening shortness of breath for 2 days along with lower extremity edema and chest x-ray suggestive bilateral pleural effusion consistent with chronic hypoxic respiratory failure secondary to CHF exacerbation. Significant abnormal initial ED lab work was sodium 114, chloride 77, BNP 1251, alkaline phosphatase 171. Chest x-ray was individually reviewed and shows bilateral increasing pleural effusion right more than left with bibasilar atelectasis and/or infiltrate. Twelve-lead EKG shows A. fib at 86/min, QTC 460 ms. 1. Chronic hypoxic respiratory failure secondary to mainly CHF but mild COPD exacerbation: The patient is being admitted in PCU. On Lasix 40 mg IV twice daily. CHF core measures with fluid and salt restriction, daily weight measurement, strict intake and output, beta-donovan. Hold DOUGLAS inhibitor and blood pressure was lower 108/67. Patient breathing status improved after thoracocentesis and diuresis. Patient was co-managed with it quality analyst/tin pourer, Dr. Campos. 2. Acute on chronic hyponatremia most likely hypotonic hypervolemic from CHF: Sodium is 114. She was given 100 mL of 3% sodium chloride in ER and Lasix 40 mg IV. Patient was initially treated with 150 mils of 3% sodium chloride but not significant improvement of serum sodium. Urine osmolality 247, serum osmolality 235. Theatrical Scenic Designer was consulted and started on sodium tablets 3 g 3 times daily along with Lasix 40 mg IV every 8 hourly. Sodium gradually improved to 123, 127. Patient lost about 26 pounds and -11 L of fluid balance. 3. CHF exacerbation with bilateral pleural effusion: Repeat chest x-ray tomorrow a.m. Hold Xarelto if she requires thoracocentesis. Previous echo in September 2019 EF 37% with moderately severe MR, moderate. TR with RVSP 60 mm history of moderate pulmonary hypertension. This was a decrease from EF 50% in April 2018. Last thoracocentesis in September 2019 during previous admission 850 mils and was of transudate nature. Patient had thoracocentesis which was again transudate as per lights criteria. Cell count showed mildly mononuclear cells 93% polymorphs 10%. Pleural fluid culture negative for more than 48 hours. Hypokalemia, hypomagnesemia. Managed with electrolytes replacement. Patient diuretic was changed to torsemide 40 mg twice daily along with potassium replacement supplement 40 M EQ twice daily. 4. Mild COPD exacerbation: DuoNeb every 4 hourly. Low-dose Solu-Medrol IV, switch to prednisone tomorrow a.m. Incentive spirometry, PEP and chest physiotherapy. 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 Treated with bronchodilator, Mucinex, pep and incentive spirometry. 5. Non-small cell carcinoma of lung, left upper lobe: She has CT-guided biopsy of left upper lobe mass reported non-small cell carcinoma favor adenocarcinoma consistent with lung primary. Patient completed radiotherapy about a year ago. Follows Dr. Cazares. 6. Chronic A. fib on Xarelto: 7. Hypertension: Currently on lower side. Hold lisinopril. 8. Continued smoking cigarette/nicotine dependence: Counseled on cessation. Nicotine patch offered. 9. DVT prophylaxis: Heparin 5000 units TID. Discharge medication reconciliation done. Discharge follow-up instructions completed. Discharge process discussed with the patient and all questions were answered to patient's satisfaction. Patient was advised to follow-up with guideman after the surgery in 1 week with follow-up BMP on 04/25/2020. Follow-up with cardiology, pulmonary office, and oncologist. Total time spent, exact 35 minutes on discharge meds reconciliation, examination, coordination of care with nurses and ancillary staff, review of imaging and blood test and discussion with the patient on follow-up instructions Objective: Seen and examined. Blood pressure is improved. Patient lost about 26 pounds during hospital course. Total negative fluid balance 11 L HEENT: Atraumatic, PERRLA, EOMI, Normocephalic Oral: No Gingival or Mucosal Lesions/ Ulcerations, Dry Mucosa Neck: Supple, No JVD, Negative Carotid Bruits Lungs: Air entry diminished in bilateral lower lungs, right more than left; mild occasional rhonchi and fine wheezing. Cardiovascular: Irregular Rate - Rate is controlled.,Systolic murmur present over left lower sternal border. Abdomen: Bowel Sounds Present, Soft, Non Tender, Non-Distended Extremities: Capillary Refill Less than 3 Seconds, Bilateral lower extremity edema with lymphedema; much improved. Douglas wrap bandage applied. Skin: No rashes, No breakdown Musculoskeletal: No Tenderness to Palpation of Joints or Extremities Neurological: Cranial nerves II-XII grossly intact, Deep Tendon Reflexes 2+/4 and Symmetrical, Neuro grossly intact, Mild lower extremity weakness secondary to lymphedema and edema. Physical deconditioning Psych/Mental Status: Normal Affect, Appropriate - Physical Exam Vitals/I&O's: Vital Signs Temp Pulse Resp BP Pulse Ox 98.2 F 88 16 121/50 H 94 04/22/20 08:41 04/22/20 08:41 04/22/20 08:41 04/22/20 08:41 04/22/20 08:41 Oxygen Flow Rate (L/min) [4] 2 Oxygen Flow Rate (L/min) [3] 2 Oxygen Flow Rate (L/min) [2] 2 Oxygen Flow Rate (L/min) [1 ( 2 Initial Baseline)] Oxygen Flow Rate (L/min) 2 Oxygen Delivery Method [4] Nasal Cannula Oxygen Delivery Method [3] Nasal Cannula Oxygen Delivery Method [2] Nasal Cannula Oxygen Delivery Method [1 ( Nasal Cannula Initial Baseline)] Oxygen Delivery Method Nasal Cannula Weight: 177 lb 4.026 oz Body Mass Index (BMI) 36.1 Intake and Output for Last 24 Hours 04/20/20 04/21/20 04/22/20 23:59 23:59 23:59 Intake Total 1530 / 1530 1488 / 1488 120 / 120 Output Total 4000 / 4000 5675 / 5675 150 / 150 Balance -2470 / -2470 -4187 / -4187 - / 30 Microbiology Past 72 Hours 04/19/20 13:15 Fluid - Thoracentesis Fluid Gram Stain - Final 04/19/20 13:15 Fluid - Thoracentesis Fluid Body Fluid Culture - Preliminary No growth-Final to follow 04/19/20 13:15 Fluid - Thoracentesis Fluid Anaerobic Culture - Preliminary No growth in 48 hours. Laboratory Results 04/19/20 13:15: Fl Pathologist Comment Reviewed 04/22/20 06:45: Sodium 127 L, Potassium 3.9, Chloride 85 L, Carbon Dioxide 38.0 H, Anion Gap 4 L, BUN 8, Creatinine 0.40 L, Estim Creat Clear Calc 41.45, Est GFR (MDRD) Af Amer 202, Est GFR (MDRD) Non-Af 167, BUN/Creatinine Ratio 20.1 H, Glucose 99, Calcium 8.7, Magnesium 2.3 Current Medications Acetaminophen (Tylenol) 650 mg PO Q6H PRN PRN PRN Reason: Pain Score 1-10/Temp > 100.7 F Al Hydroxide/Mg Hydroxide (Mylanta Ii) 30 ml PO Q6H PRN PRN PRN Reason: Gastric Burning Albuterol Sulfate (Ventolin Aerosols) 2.5 mg INHALATION Q2H PRN PRN PRN Reason: SOB/Wheezing Last Admin: 04/21/20 04:41 Dose: 2.5 mg Documented by: Albuterol/Ipratropium (Duoneb) 3 ml INHALATION Q4HWA.RT [facility] Last Admin: 04/22/20 06:49 Dose: 3 ml Documented by: Carvedilol (Coreg) 25 mg PO BID [facility] Last Admin: 04/21/20 21:47 Dose: 25 mg Documented by: Dextrose (D50w Syringe) 0 gm IV X1 PRN; Protocol PRN Reason: Hypoglycemia Furosemide (Lasix) 40 mg IV Q12 [facility] Last Admin: 04/22/20 08:47 Dose: 40 mg Documented by: Glucagon () 1 mg IM .X1 PRN PRN Reason: Hypoglycemia Guaifenesin (Mucinex) 1,200 mg PO BID [facility] Last Admin: 04/21/20 21:48 Dose: 1,200 mg Documented by: Heparin Sodium (Porcine) (Heparin Na) 5,000 unit SC Q8 [facility] Last Admin: 04/22/20 06:34 Dose: 5,000 unit Documented by: Melatonin (Melatonin) 3 mg PO QHS PRN PRN PRN Reason: INSOMNIA Morphine Sulfate () 2 mg IV Q3H PRN PRN PRN Reason: Pain Score 4-10/10 Nicotine (Nicoderm Cq (Pbkc)) 21 mg TRANSDERM. DAILY [facility] Last Admin: 04/22/20 08:51 Dose: Not Given Documented by: Nitroglycerin (Nitrostat) 0.4 mg SUBLINGUAL Q5M PRN PRN Reason: CARDIAC/CHEST PAIN Nystatin (Mycostatin Powder) 1 applic TOPICAL TID [facility]; Protocol Last Admin: 04/22/20 06:34 Dose: Not Given Documented by: Potassium Chloride (K-Dur) 40 meq PO BIDCM [facility] Stop: 04/23/20 08:01 Last Admin: 04/22/20 08:47 Dose: 40 meq Documented by: Senna/Docusate Sodium (Senokot-S, Yesenia-Colace) 2 tablet PO BID PRN PRN PRN Reason: Constipation Sodium Chloride () 10 - 40 ml IV UD PRN PRN Reason: SALINE FLUSH Last Admin: 04/22/20 08:47 Dose: 10 ml Documented by: Sodium Chloride (Sodium Chloride) 3 gm PO TID [facility] Last Admin: 04/22/20 06:33 Dose: 3 gm Documented by: Throat Lozenges (Cepacol Sore Throat Lozenge) 1 lozenge MUCOUS MEM Q2H PRN PRN PRN Reason: cough/sore throat Last Admin: 04/20/20 08:31 Dose: 1 lozenge Documented by: Discharge Activity: May Not Drive Call your doctor if you observe: Fever of 101 or Higher, Coldness, Increased Pain, Numbness or Tingling, Inability to urinate, Inability to have a bowel movement, Shortness of breath, Dizziness, Fainting spells, Swelling in the ankles, Chest pain, Prolonged hiccoughing, Increased palpitations (irregular heartbeat), Calf discomfort, Uncontrolled pain Home Medications: Medications to take at Discharge Albuterol Inhaler [Ventolin Hfa] 1 - 2 puff INHALATION Q4H PRN PRN 10/16/16 Multivit-Min/Iron/Folic/Lutein [Centrum Silver Women Tablet] 1 tab PO DAILY 10/05/19 Handicap Placard #1 ea 10/22/19 fluticasone propionate 230 mcg-salmeterol 21 mcg/actuation HFA inhaler 2 puff INHALATION BID #1 device 01/25/20 rivaroxaban 20 mg tablet 20 mg PO DINNER #30 tab 01/25/20 tiotropium bromide 2.5 mcg/actuation mist for inhalation 2 puff INHALATION BID #4 g 01/25/20 carvedilol 25 mg tablet 25 mg PO BID #180 tab 02/25/20 Atorvastatin Calcium 20 mg PO DAILY #30 tab 04/22/20 Guaifenesin [Mucinex] 1,200 mg PO BID #14 tab 04/22/20 Nicotine [Nicoderm Cq] 21 mg TRANSDERM. DAILY #30 patch 04/22/20 Nystatin Powder [Mycostatin Powder] 1 applic TOPICAL TID #1 bottle 04/22/20 Potassium Chloride [K-Dur] 40 meq PO BIDCM #60 tab 04/22/20 Quinapril HCl [Accupril] 20 mg PO DAILY #180 tab 04/22/20 Torsemide [Demadex] 40 mg PO BID #120 tab 04/22/20 Following Prescrptions Were Given to Patient: Atorvastatin Calcium 20 mg PO DAILY #30 tab Torsemide [Demadex] 40 mg PO BID #120 tab Transmission Status: Received by CourseAdvisor #30 Potassium Chloride [K-Dur] 40 meq PO BIDCM #60 tab Transmission Status: Received by CourseAdvisor #30 Guaifenesin [Mucinex] 1,200 mg PO BID #14 tab Transmission Status: Received by CourseAdvisor #30 Nystatin Powder [Mycostatin Powder] 1 applic TOPICAL TID #1 bottle Transmission Status: Received by CourseAdvisor #30 Nicotine [Nicoderm Cq] 21 mg TRANSDERM. DAILY #30 patch Transmission Status: Received by CourseAdvisor #30 Other Amb Orders: Basic Metabolic Profile (BMP) Time Frame: 05/02/20, Facility: [facility], Location: Laboratory Primary Care Physician: Care Physician,No Primary [Primary Care Provider] - Please follow up with your Primary Care Physician in: in 2 weeks Please Follow Up With: Mark Campos DO When: Pulm office in 2 weeks Please Follow Up With: Apolinar Cazares DO When: in 4 weeks Please Follow Up With: Rusty Jovel MD When: in 4 weeks Please Follow Up With: Tony Ying MD When: in 1-2 weeks with BMP Medical Necessity - Tobacco Use Smoking Status: Current some day smoker Meaningful Use Info Meaningful Use Diagnoses (Choose all that apply): CHF - CHF DOUGLAS/ARB ordered at discharge?: Yes Documented LVEF (%): 50 Inpatient E&M: 77228 Disch Hosp
[2020-04-22] MEDS: Carvedilol 25 MG Tablet PO (10:08)
[2020-04-22] MEDS: guaiFENesin 1,200 MG Tablet 1200 MG PO (10:08)
--- NOTE | 2020-04-22 10:52 | CASEMGMT ---
SANAM THAPA NOTE: PT/OT notes reviewed and additional therapy recommended. SANAM THAPA to room to talk with pt. in room @ this time. They were made aware of therapy recommendations and they both state would like [facility]. Pt is homebound/it takes considerable amt of effort to leave the home. Provided with list of local C agencies and [facility] is 1st preference. Pt/ state that pt does not have a PCP. Upon further inquiry, they state pt is still currently established w/Dr Brandt and that pt just saw him a few months ago, but she wants to switch to a different PCP. They were made aware pt needs to be established w/a PCP for [facility] and they are willing to continue w/Dr Brandt for now so he can write orders/follow her for [facility]. They were provided with list of local PCP's and were made aware pt can switch to a different PCP if she chooses to do so in the future. Call placed to [place], On-call nurse @ [facility]. She was made aware pt/ would like [facility] and that an order has been placed and that pt is being discharged today. She states she is not certain if they will be able to accept the patient, but asked for discharge instructions to be faxed to them and someone will contact pt on Saturday to let them know if they are able to see pt. [facility] order, discharge instructions, and summary all faxed to [facility] at this time. Pt/ made aware [facility] will contact them on Saturday and acceptance to their [facility] is not established yet. Pt/ made aware, if [facility] is not able to accept her, that they should contact Dr Brandt's office for assistance with getting set up with another [facility] agency. They voice understanding. Pt/ also provided with contact info to [facility] and instructed to call them if they have not heard from them by Saturday afternoon. Pt/ deny having any other discharge concerns/plans/needs at this time. Benyj SARMIENTO RN, CM
--- NOTE | 2020-04-22 12:01 | PCA ---
List of area PCPs given to patient with discharge paperwork
--- NOTE | 2020-04-25 09:58 | CASEMGMT ---
Addendum entered by Maylin Kelly 04/25/20 12:24: Call back from Kamille at [facility] and she states that pt does not want to go back to Dr. Brandt for PCP and that Dr. Campos is not willing to sign for HHC orders at this time. Kamille also states that pt is not very interested in having skilled HHC in home at this time anyway. CCN referral made. Brenton MARION CM Original Note: Call from Maryan at [facility] and she states that they are able to take pt at this time. Brenton MARION CM
== END 2020-04-22 14:00 | disposition home or self-care (01) | DRG 292 ==
LOC: ED 09:35 → PCU 11:29
PROVIDERS: Internal Medicine Critical Care Medicine; Admitting Provider Internal Medicine; Emergency Provider Emergency Medicine; Visit Provider Internal Medicine
DX: I11.0 Hypertensive heart disease with heart failure (principal); E87.1 Hypo-osmolality and hyponatremia; J96.11 Chronic respiratory failure with hypoxia; J44.1 Chronic obstructive pulmonary disease with (acute) exacerbation; I50.23 Acute on chronic systolic (congestive) heart failure; I42.8 Other cardiomyopathies; E87.6 Hypokalemia; E83.42 Hypomagnesemia; I34.0 Nonrheumatic mitral (valve) insufficiency; I36.1 Nonrheumatic tricuspid (valve) insufficiency; I27.21 Secondary pulmonary arterial hypertension; I48.0 Paroxysmal atrial fibrillation; I89.0 Lymphedema, not elsewhere classified; F17.210 Nicotine dependence, cigarettes, uncomplicated; Z79.01 Long term (current) use of anticoagulants; Z79.899 Other long term (current) drug therapy; Z99.81 Dependence on supplemental oxygen; Z85.118 Personal history of other malignant neoplasm of bronchus and lung; Z85.3 Personal history of malignant neoplasm of breast; Z92.3 Personal history of irradiation; Z90.12 Acquired absence of left breast and nipple
CPT/HCPCS: 32555; 36415; 71045; 71046; 80048; 80053; 80061; 81001; 82436; 82570; 82945; 83615; 83735; 83880; 83930; 83935; 84133; 84156; 84157; 84295; 84300; 84443; 84484; 85025; 85610; 85730; 87070; 87075; 87205; 88108; 88305; 88313; 89050; 93005; 94640; 94667; 94668; 97110; 97116; 97162; 97166; 97530; 97802; 97803; 99251; 99285; 99406; J7030; P9047; A4216; G0463; J1940

== ENCOUNTER → 2020-04-25 06:47 | Outpatient (CLI) | payer MEDICARE, OTHER, SELFPAY ==
[2020-04-18 12:08] VITALS: BMI 36.1
[2020-04-25 07:40] LABS: Anion Gap 7 (5-15); BUN 8 mg/dL (7-18); BUN/Creat Ratio 15.8 RATIO (10-20); Calcium,Total 8.8 mg/dL (8.5-10.1); Chloride 80 mmol/L (98-107); Creatinine, Serum 0.51 mg/dL (0.55-1.02); EST Glomerular Filtration Rate 126 mL/min (>60); Est Glom Filt Rate - Afr Amer 153 mL/min (>60); Glucose 100 mg/dL (74-106); Sodium Level 123 mmol/L (136-145)
== END ==
PROVIDERS: PCP Family Medicine; Referring Provider Internal Medicine; Visit Provider Internal Medicine
DX: E87.1 Hypo-osmolality and hyponatremia (principal); I50.9 Heart failure, unspecified
CPT/HCPCS: 36415; 80048

== ENCOUNTER 2020-06-09 08:56 | Emergency (ER) | payer MEDICARE, OTHER, SELFPAY ==
[2020-04-18 12:08] VITALS: BMI 36.1
[2020-06-09 08:57] VITALS: BP 126/71; PULSE 71; RESP 17; TEMP 36.5; O2SAT 99; BMI 25.7
--- NOTE | 2020-06-09 09:57 | ED.VISSUMM ---
- ER Visit Summary Date of Service: 06/09/20 Chief Complaint: Rash History of Present Illness: The patient is a 74 F presenting with rash. Patient states that this started approximately 1 week ago. She complains of red itchy rash to her groin. She denies vaginal discharge. Denies fever. Denies other complaints. She states she is using [id number] topical medication but she is unsure what she has tried. She does not currently have a physician. Denies history of diabetes. Physical Examination: Vitals are stable. Patient is afebrile. Alert no acute distress. HEENT exam is unremarkable. Neck is supple. Lungs are clear and equal bilaterally. Heart is regular rate and rhythm. Abdomen is soft nontender nondistended. Erythema to the suprapubic region and bilateral groin. No ulcerations or lesions. Extremities are unremarkable. Skin is warm and dry. No focal neurologic deficit. Remainder of exam is unremarkable. Emergency Department Course and Treatment: BGT 103. Patient was given Diflucan. She was given prescription for ketoconazole cream. She was given Dr. Sanders on-call for no doctor for follow-up. Advised to return to the ED for worsening complaints. Disposition: Discharge home Impression: Intertrigo This note was generated with [employer] dictation software. It may contain incorrect words, spelling, and punctuation that were not noted in review of the chart prior to signing ED Disposition - Plan for ED Patient: Instructions: ED Fungal Skin Infection Tinea Prescriptions: Ketoconazole [Nizoral Cream] 1 applic TOPICAL DAILY #1 tube Prescription Printed Referrals: Amber Sanders MD [STAFF PHYSICIAN] -
--- NOTE | 2020-06-09 10:12 | ED.DEP ---
ED Disposition - Plan for ED Patient: Instructions: ED Fungal Skin Infection Tinea Prescriptions: Ketoconazole [Nizoral Cream] 1 applic TOPICAL DAILY #1 tube Referrals: Amber Sanders MD [STAFF PHYSICIAN] -
[2020-06-09 10:16] LABS: Bedside Glucose 103 mg/dL (70-110)
[2020-06-09] MEDS: Fluconazole 100 MG Tablet 150 MG PO (10:29)
[2020-06-09 10:30] VITALS: BP 142/89; PULSE 87; RESP 22; O2SAT 97
--- NOTE | 2020-06-09 10:30 | ED.RN ---
THIS NURSE REVIEWED D/C INSTRUCTIONS WITH PT AND VISITOR. PT VERBALIZED UNDERSTANDING OF INSTRUCTIONS. PT DENIES FURTHER NEEDS OR QUESTIONS AT THIS TIME. PT ASSISTED TO VEHICLE VIA W/C AND ONE STAFF MEMBER
== END 2020-06-09 10:30 | disposition home or self-care (01) ==
LOC: ED 09:35
PROVIDERS: Emergency Provider Emergency Medicine
DX: L30.4 Erythema intertrigo (principal); I10 Essential (primary) hypertension; Z79.01 Long term (current) use of anticoagulants; Z79.899 Other long term (current) drug therapy
CPT/HCPCS: 82962; 99283

== ENCOUNTER 2020-06-23 12:22 | Emergency (ER) | payer MEDICARE, OTHER, SELFPAY ==
[2020-06-23 12:23] VITALS: BP 112/71; PULSE 81; RESP 16; TEMP 36.2; O2SAT 99; BMI 30.9
[2020-06-23 12:24] VITALS: BP 112/71; PULSE 81; RESP 16; TEMP 36.2; O2SAT 99
--- NOTE | 2020-06-23 13:02 | ED.VISSUMM ---
- ER Visit Summary Date of Service: 06/23/20 Chief Complaint: Cellulitis History of Present Illness: The patient is a 74 F who presents with cellulitis that is been getting worse over the past 2 weeks. Patient has open wounds in both lower legs. Patient is scheduled to see the wound care center for these wounds. Patient has dressings in place. Patient has noticed some redness going up her legs. Patient was evaluated by her nurse practitioner today who noticed that the redness was over the perineum, vulva, and lower abdomen. Patient states she has a burning sensation in her perineal area. Patient states nothing makes it better or worse. Patient denies any fevers or chills. Patient denies any nausea or vomiting. Patient denies any dysuria or hematuria. Physical Examination: Vital signs are stable. Patient is afebrile. Patient is in no acute distress. Oral mucosa is pink and moist. Neck is supple. Trachea is midline. There is no JVD. Heart was regular rate and rhythm. Lungs are clear and equal bilaterally. Abdomen is soft. Bowel sounds are normal. There is no tenderness. Cranial nerves II through XII are intact. There are no focal motor or sensory deficits noted. Skin is warm and dry. There is erythema and warmth over the lower legs bilaterally. There is also some erythema and warmth over the lower abdomen and vulva area. There is no discharge or drainage. There is no abscess formation. Test Results: CBC shows anemia with a hemoglobin of 7.5 and hematocrit 25.0. This is consistent with prior results. Comprehensive metabolic profile showed sodium of 126 and chloride of 91. These were also consistent with prior results. Alk phos was slightly elevated at 164. Urinalysis shows a leukocyte esterase 500 with 25-50 white blood cells and 1+ bacteria. Emergency Department Course and Treatment: Patient was given a gram of Ancef here. Since we were unable to obtain IV, the Ancef was given IM. Patient was given a prescription for Keflex. This will cover cellulitis and urinary tract infection. Patient states she does not want to be admitted to the hospital and wants to go home. Patient was instructed to follow-up with her primary care physician in 3 to 5 days. Patient understood and was agreeable with the plan. All questions were answered. Disposition: Discharge home Impression: 1. Lower extremity cellulitis 2. Urinary tract infection This note was generated with Dragon dictation software. It may contain incorrect words, spelling, and punctuation that were not noted in review of the chart prior to signing ED Disposition - Plan for ED Patient: Disposition: Home or Assisted Living Diagnosis: Cellulitis, Urinary tract infection Instructions: ED Cellulitis, ED CYSTITIS Female Adult Prescriptions: Cephalexin [Keflex] 500 mg PO Q6 #40 cap Prescription Printed Referrals: Lev Stephens MD [STAFF PHYSICIAN] - 5-7 Days
--- NOTE | 2020-06-23 14:18 | ED.RN ---
UNABLE TO OBTAIN IV ACCESS AT THIS TIME. DR YUN MADE AWARE. CALLED LAB TO OBTAIN BLOOD WORK. WILL CONTINUE TO MONITOR.
[2020-06-23 14:49] LABS: Absolute Neutrophil Count 4.3 X10^3/uL (2.0-7.7); Basophil# 0.05 X10^3/uL; Basophil% 0.8 % (0-1); Eosinophil# 0.38 X10^3/uL; Eosinophils% 5.9 % (0-5); Hemoglobin 7.5 g/dL (12.0-15.0); Lymphocyte % 15.5 % (19-41); Mean Corpuscular Hgb 23.4 pg (27.0-32.0); Mean Corpuscular Volume 78.1 fL (81-99); Mean Platelet Vol. 9.2 fl (6.2-12.0); Monocyte% 10.8 % (0-10); NRBC Flagged by Analyzer 0 % (0-5); Neutrophil # 4.31 X10^3/uL (2.7-7.7); Neutrophil % 66.5 % (47-70); POSITIVE MORPHOLOGY YES; Platelet Count 272 K/mm3 (150-450); RBC Distribution Width CV 20.3 % (11.6-14.6); RBC Distribution Width SD 57.6 fl (35.1-43.9); White Blood Count 6.5 K/mm3 (4.4-11.0)
[2020-06-23 14:50] LABS: Mucous, Urine 0 SEEN /hpf (<or=2+); Red Blood Cells-Urine 0 SEEN /hpf (0-5)
[2020-06-23 14:53] LABS: Differential Indicated SCAN CRITERIA MET
[2020-06-23 14:55] LABS: Color, Urine Yellow (Yellow); Glucose, Dipstick Normal (Normal); Ketone-Dipstick Negative (Negative); Leukocyte Esterase-Dipstick 500 /ul (Negative); Nitrite-Dipstick Negative (Negative); Occult Blood-Urine Negative /ul (Negative); Protein-Dipstick Negative (Negative); Urine Bilirubin Dipstick Negative (Negative); Urine Clarity Sl. Cloudy (Clear); Urine Urobilinogen Normal (Normal)
[2020-06-23 15:06] LABS: AST(SGOT) 27 U/L (15-37); Alanine Aminotransfer ALT/SGPT 21 U/L (13-56); Albumin, Serum 3.3 g/dL (3.2-5.0); Alkaline Phosphatase 164 U/L (45-117); Anion Gap 5 (5-15); BUN 11 mg/dL (7-18); BUN/Creat Ratio 15.3 RATIO (10-20); Calcium,Total 9.3 mg/dL (8.5-10.1); Chloride 91 mmol/L (98-107); Creatinine, Serum 0.72 mg/dL (0.55-1.02); EST Glomerular Filtration Rate 85 mL/min (>60); Est Glom Filt Rate - Afr Amer 102 mL/min (>60); Estimated Creatinine Clearance 43.27 ml/min; Globulin 3.4 g/dL (2.2-4.2); Glucose 94 mg/dL (74-106); Potassium 4.4 mmol/L (3.5-5.1); Protein, Total 6.7 g/dL (6.4-8.2); Sodium Level 126 mmol/L (136-145)
[2020-06-23 15:08] LABS: Bacteria 1+ /hpf (None Seen); Squamous Epithelial Cells - UA 0-5 SEEN /hpf (5-10); White Blood Cells 25-50 SEEN /hpf (0-5)
[2020-06-23 15:09] LABS: Lactic Acid 1.1 mmol/L (0.4-1.9)
[2020-06-23 15:20] VITALS: BP 117/65; PULSE 80; RESP 18; TEMP 36.8; O2SAT 93
--- NOTE | 2020-06-23 15:42 | ED.RN ---
PT WAS DIFFICULT IV STICK. PT STUCK SEVERAL TIMES WITH NO SUCCESS. DR. YUN INFORMED. ORDERS TO CHANGE MEDICATION TO IM ADMINISTRATION ROUTE. AWAITING MEDICATION FROM PHARMACY.
[2020-06-23 16:36] VITALS: BP 125/70; PULSE 71; RESP 16; TEMP 36.8; O2SAT 98
[2020-06-23] MEDS: Cefazolin 1 GM/5 ML Vial IM (16:38)
[2020-06-23 16:53] VITALS: BP 125/70; PULSE 71; RESP 15; O2SAT 98
== END 2020-06-23 17:06 | disposition home or self-care (01) ==
PROVIDERS: Emergency Provider Emergency Medicine
DX: L03.119 Cellulitis of unspecified part of limb (principal); N39.0 Urinary tract infection, site not specified
CPT/HCPCS: 36415; 80053; 81001; 83605; 85025; 87040; 96372; 99285; J7050; A4216

== ENCOUNTER 2020-07-08 13:45 | Outpatient (RCR) | payer MEDICARE, OTHER, SELFPAY ==
[2019-11-21 01:01] VITALS: BP 143/48; PULSE 67; RESP 16; TEMP 36.2
[2020-06-28 10:40] VITALS: BP 111/39; PULSE 79; RESP 18; TEMP 36.1; BMI 25.7
--- NOTE | 2020-06-28 10:54 | WC ---
LE ASSESSMT DEFERRED. PT LAST SEEN HERE IN OCT 2019 AND HAD ARTERIAL/VASCULAR STUDIES
--- NOTE | 2020-06-28 12:25 | HP.PCM_ITS ---
(1) Leg swelling Status: Chronic Current Visit: Yes Code(s): M79.89 - Other specified soft tissue disorders (2) Leg edema Status: Chronic Current Visit: Yes Code(s): R60.0 - Localized edema (3) Chronic respiratory failure with hypoxia Status: Chronic Current Visit: No Code(s): J96.11 - Chronic respiratory failure with hypoxia (4) Tobacco abuse Status: Chronic Current Visit: No Code(s): Z72.0 - Tobacco use (5) Tobacco abuse counseling Status: Chronic Current Visit: No Code(s): Z71.6 - Tobacco abuse counseling (6) Dependent edema Status: Chronic Current Visit: Yes Code(s): R60.9 - Edema, unspecified (7) Non-ischemic cardiomyopathy Status: Chronic Current Visit: No Code(s): I42.8 - Other cardiomyopathies (8) Paroxysmal atrial fibrillation Status: Chronic Current Visit: No Code(s): I48.0 - Paroxysmal atrial fibrillation (9) Acute on chronic systolic (congestive) heart failure Status: Chronic Current Visit: No Code(s): I50.23 - Acute on chronic systolic (congestive) heart failure (10) Secondary pulmonary arterial hypertension Status: Chronic Current Visit: No Code(s): I27.21 - Secondary pulmonary arterial hypertension (11) Non-rheumatic tricuspid valve insufficiency Status: Chronic Current Visit: No Code(s): I36.1 - Nonrheumatic tricuspid (valve) insufficiency (12) Nonrheumatic mitral (valve) insufficiency Status: Chronic Current Visit: No Code(s): I34.0 - Nonrheumatic mitral (valve) insufficiency (13) Essential (primary) hypertension Status: Chronic Current Visit: No Code(s): I10 - Essential (primary) hypertension (14) History of breast cancer Status: Chronic Current Visit: No Code(s): Z85.3 - Personal history of malignant neoplasm of breast (15) COPD (chronic obstructive pulmonary disease) Status: Chronic Current Visit: No Qualifiers: Code(s): J44.9 - Chronic obstructive pulmonary disease, unspecified (16) Nicotine dependence Status: Chronic Current Visit: No Code(s): F17.200 - Nicotine dependence, unspecified, uncomplicated (17) Chronic anticoagulation Status: Chronic Current Visit: No Code(s): Z79.01 - residential (current) use of anticoagulants History of Present Illness Date of Service: 06/28/20 Chief Complaint: Bilateral lower extremity swelling and edema History of Wound: This is a 74-year-old female with a longstanding history of chronic swelling and edema in her lower extremities bilaterally. She has previously been treated at this facility for the symptoms. According to the patient, the swelling and edema in her lower extremities became much more severe just within the last 2 weeks. The patient chronically sleeps in a chair, due to back problems. She is ambulatory, but not very active. She spends long hours each day in a sitting position. She suffers from multiple pre-existing medical problems, as detailed elsewhere. In the past, she has developed ulcerations in her lower extremities due to the severe swelling and edema. She has previously been prescribed graduated compression stockings, which she has not been wearing. Her project internship, Dr. Jovel, has previously prescribed a diuretic, but the patient has been noncompliant in taking the medication. Of note, a noninvasive lower extremity arterial study performed on November 03, 2019, revealed no evidence of significant arterial occlusive disease in the lower extremities. The patient was hospitalized in April 2020 for approximately 4 days in treatment for congestive heart failure. The patient is debilitated, and relatively immobile. Her ambulatory capacity is extremely limited. She sits throughout the day, and sleeps in a chair in an upright position at night. The patient denies a history of lower extremity thrombophlebitis. Past Medical History Past Medical History: Chronic Problems (Last Reviewed 01/25/20 @ 10:49 by Jayleen Burr LEAD GENERATION MARKETING MANAGER, LEAD GENERATION MARKETING MANAGER-C) Leg swelling (Chronic) Leg edema (Chronic) Chronic respiratory failure with hypoxia (Chronic) Tobacco abuse (Chronic) Tobacco abuse counseling (Chronic) Dependent edema (Chronic) Bilateral leg ulcer (Chronic) Non-ischemic cardiomyopathy (Chronic) Paroxysmal atrial fibrillation (Chronic) Acute on chronic systolic (congestive) heart failure (Chronic) Secondary pulmonary arterial hypertension (Chronic) Non-rheumatic tricuspid valve insufficiency (Chronic) Nonrheumatic mitral (valve) insufficiency (Chronic) Essential (primary) hypertension (Chronic) Lung mass (Chronic) History of breast cancer (Chronic) COPD (chronic obstructive pulmonary disease) (Chronic) Nicotine dependence (Chronic) Chronic anticoagulation (Chronic) Surgical History: mastectomy, - - The patient has previously undergone a left mastectomy, right breast lumpectomy, and resection of a left pulmonary nodule. She also has undergone tubal ligation. She is a Ab0. Allergies/Adverse Reactions: Allergies albuterol sulfate [From Combivent] Allergy (Verified 06/28/20 10:55) Swelling ipratropium bromide [From Combivent] Allergy (Verified 06/28/20 10:55) Swelling metoprolol Allergy (Verified 06/28/20 10:55) Laryngospasms Sulfa (Sulfonamide Antibiotics) Allergy (Verified 06/28/20 10:55) Rash beclomethasone [From Qvar] Adverse Reaction (Verified 06/28/20 10:55) COUGHING benzalkonium chloride [From Merthiolate (benzalkonium)] Adverse Reaction (Verified 06/28/20 10:55) Rash codeine Adverse Reaction (Verified 06/28/20 10:55) Chest tightness chest hurts doxycycline Adverse Reaction (Verified 06/28/20 10:55) Abd cramps/diarrhea formoterol fumarate [From Dulera] Adverse Reaction (Verified 06/28/20 10:55) PT UNSURE OF REACTION hydrochlorothiazide Adverse Reaction (Verified 06/28/20 10:55) PT UNSURE OF REACTION ibuprofen [From Advil] Adverse Reaction (Verified 06/28/20 10:55) PT UNSURE OF REACTION iodine Adverse Reaction (Verified 06/28/20 10:55) Itching merbromin Adverse Reaction (Verified 06/28/20 10:55) PT UNSURE OF REACTION mometasone furoate [From Dulera] Adverse Reaction (Verified 06/28/20 10:55) PT UNSURE OF REACTION oseltamivir [From Tamiflu] Adverse Reaction (Verified 06/28/20 10:55) uterine pain prednisone Adverse Reaction (Verified 06/28/20 10:55) Abd cramps/diarrhea PLASTIC TAPE Allergy (Uncoded 06/23/20 12:22) Rash Home Medications: Ambulatory Orders Medication Instructions Recorded Multivit-Min/Iron/Folic/Lutein 1 tab PO DAILY 10/05/19 [Centrum Silver Women Tablet] Handicap Placard #1 ea 10/22/19 rivaroxaban 20 mg tablet 20 mg PO DINNER #30 tab 01/25/20 carvedilol 25 mg tablet 25 mg PO BID #180 tab 02/25/20 Guaifenesin [Mucinex] 1,200 mg PO BID #14 tab 04/22/20 Nystatin Powder [Mycostatin Powder] 1 applic TOPICAL TID #1 bottle 04/22/20 Quinapril HCl [Accupril] 20 mg PO DAILY #180 tab 04/22/20 albuterol sulfate 90 mcg/actuation 1 - 2 puff INHALATION Q4H PRN PRN 04/29/20 aerosol inhaler #18 g fluticasone propionate 230 2 puff INHALATION BID #1 device 04/29/20 mcg-salmeterol 21 mcg/actuation HFA inhaler tiotropium bromide 2.5 2 puff INHALATION BID #4 g 04/29/20 mcg/actuation mist for inhalation Ketoconazole [Nizoral Cream] 1 applic TOPICAL DAILY #1 tube 06/09/20 Cephalexin [Keflex] 500 mg PO Q6 #40 cap 06/23/20 - Family History Maternal Family History: Family History (Last Reviewed 01/25/20 @ 10:49 by Jayleen Burr LEAD GENERATION MARKETING MANAGER, LEAD GENERATION MARKETING MANAGER-C) Father Emphysema of lung Sister Cancer No pertinent history Paternal Family History: Family History (Last Reviewed 01/25/20 @ 10:49 by Jayleen Burr LEAD GENERATION MARKETING MANAGER, LEAD GENERATION MARKETING MANAGER-C) Father Emphysema of lung Sister Cancer No pertinent history Lives: Spouse/ Significant Other Smoking Status: Current every day smoker Tobacco Use: Cigarettes Alcohol: None Drugs: None Review of Systems Constitutional: Denies: Chills, Fever, Weight Change Eyes: Denies: Pain, Vision Change HEENT: Denies: Difficulty Hearing, Difficulty Swallowing, Sinus Congestion Cardiovascular: Denies: Chest Pain, Palpitations Respiratory: Denies: Cough, Shortness of Breath Gastrointestinal: Denies: Diarrhea, Nausea, Vomiting Genitourinary: Denies: Dysuria, Hematuria Endocrine: Denies: Heat/ Cold Intolerance, Polydipsia, Polyuria Hematologic/ Lymphatic: Denies: Easy Bruising, Easy Bleeding - Physical Exam Vital Signs Temp Pulse Resp BP 97 F L 79 18 111/39 L 06/28/20 10:40 06/28/20 10:40 06/28/20 10:40 06/28/20 10:40 General: Alert, Oriented x3, Cooperative, No apparent distress, Well developed, Well nourished HEENT: Atraumatic, PERRLA, EOMI, Normocephalic Oral: Moist Mucosa Neck: Supple, No JVD, Negative Carotid Bruits, Negative Hepatojugular Reflux, No Nuchal Rigidity, Trachea Midline Lungs: Clear to auscultation, Normal air movement, No rhonchi, No wheeze, No rales Cardiovascular: Regular rate, Regular Rhythm, Normal S1, Normal S2, No murmurs Abdomen: Soft, Non Tender, Non-Distended, Obese Extremities: No clubbing, No cyanosis, No Calf Tenderness, - - Moderate to severe swelling and edema noted in the lower extremities bilaterally. There are no significant skin changes. No open wounds or ulcerations are noted at this time. Circumference measurements are documented elsewhere. Skin: No rashes, No breakdown Wound Measurements and Assessment - Nurse 1 - General Ulcer Measurement Start: 06/28/20 10:39 Freq: Status: Active Protocol: Activity Type Activity Date Activity User E-Sign Co-Sign Detail Recorded Client Recorded Date Recorded By Document 06/28/20 10:40 [facility] [id number] 06/28/20 10:54 [facility] 06/28/20 10:40 Wound Center Nurse 1 [Edema Assessment] -Lower Limb Edema Present Yes -Right Calf (cm) 47.2 -Right Ankle (cm) 26.9 -Left Calf (cm) 48 -Left Ankle (cm) 27 WC - Nurse 3 - General Ulcer D/C NN Start: 06/28/20 10:39 Freq: Status: Active Protocol: Activity Type Activity Date Activity User E-Sign Co-Sign Detail Recorded Client Recorded Date Recorded By Document 06/28/20 11:54 [facility] [id number] 06/28/20 11:55 [facility] 06/28/20 11:54 Wound Care Nurse 3 [Compression Applied] Right -Multi-Layered Wrap Application Unna Boot - Right ($) Left -Multi-Layered Wrap Application Multi-Layer Comp - Left ($) Pain Scale: 0-10 Numeric [Pain] -Is Patient Pain Free? Yes - Visit Discharge [Visit Discharge Information] -Discharge Condition Stable -Ambulatory Status Wheelchair -Transportation Private Auto -Accompanied by Neurological: Cranial nerves II-XII grossly intact, Neuro grossly intact Psych/Mental Status: Normal Affect, Appropriate, Alert and oriented to time, place, person, mood and affect Debridement Note Post-Debridement Measurements/Treatment - Nurse 3 - General Ulcer D/C NN Start: 06/28/20 10:39 Freq: Status: Active Protocol: Activity Type Activity Date Activity User E-Sign Co-Sign Detail Recorded Client Recorded Date Recorded By Document 06/28/20 11:54 [facility] [id number] 06/28/20 11:55 [facility] 06/28/20 11:54 Wound Care Nurse 3 Right -Multi-Layered Wrap Application Unna Boot - Right ($) Left -Multi-Layered Wrap Application Multi-Layer Comp - Left ($) Pain Scale: 0-10 Numeric Is Patient Pain Free? Yes WC - Visit Discharge Discharge Condition Stable Ambulatory Status Wheelchair Transportation Private Auto Accompanied by No debridement was completed today - There are no open wounds or ulcerations. Assessment/Plan Active Problems (Last Reviewed 01/25/20 @ 10:49 by Jayleen Burr LEAD GENERATION MARKETING MANAGER, LEAD GENERATION MARKETING MANAGER-C) Leg swelling (Chronic) Leg edema (Chronic) Dependent edema (Chronic) Assessment: This is a 74-year-old female who presented with severe swelling and edema in her lower extremities. She is also known to suffer from congestive heart failure. The patient is relatively immobile. She sits for long hours each day. Due to her pre-existing medical problems, she also sleeps in a chair, sitting in an upright position. Thus, it appears as though the swelling and edema in her lower extremities is largely related to dependency and a lack of activity. A noninvasive lower extremity arterial study has been performed earlier this year, revealing no evidence of arterial occlusive disease in the lower extremities. A regimen appropriate to the long-term management of the patient's lower extremity swelling has been previously detailed. However, the patient has been largely noncompliant. She had been prescribed graduated compression stockings, and advised to elevate her lower extremities much as possible. She has been told to avoid prolonged idle sitting. Activity had been encouraged. Plan: A lengthy discussion has been undertaken with the patient and her , who was at the bedside. The importance of leg elevation has been strongly stressed. Patient has been encouraged to elevate her lower extremities much as possible. It has been stressed that the patient should position her legs to the same level as her heart, or higher. This should be accomplished as much as possible. She has been encouraged to sleep on a flat surface at night, or at least with her legs at the same level as her heart. Activity has been encouraged. Prolonged idle sitting has been discouraged. We are to implement the use of 3M 2 layer compression wraps to the patient's lower extremities, which will be changed twice weekly. The patient and her have been advised to collaborate with her project internship, and informed that the measures implemented may create an enhanced venous return to her heart, and could result in symptoms of congestive heart failure. Therefore, patient has been advised to collaborate closely with her project internship. The patient is to return in 1 week for reassessment. Influenza vaccine was not administered. The patient is a smoker, and has been advised to quit. Hazards of smoking have been explained. The patient weighs 150 pounds. She stands 5 feet 4 inches tall. Her BMI is 25.7, which places her in the overweight category. Weight optimization has been recommended.
[2020-07-01 13:26] VITALS: BP 129/44; PULSE 85; RESP 18; TEMP 35.9; BMI 25.7
[2020-07-05 11:05] VITALS: BP 122/49; PULSE 93; RESP 20; TEMP 36.1; BMI 25.7
--- NOTE | 2020-07-05 12:23 | PCM.WC.HP ---
(1) Leg swelling Status: Chronic Current Visit: Yes Code(s): M79.89 - Other specified soft tissue disorders (2) Leg edema Status: Chronic Current Visit: Yes Code(s): R60.0 - Localized edema (3) Chronic respiratory failure with hypoxia Status: Chronic Current Visit: No Code(s): J96.11 - Chronic respiratory failure with hypoxia (4) Tobacco abuse Status: Chronic Current Visit: No Code(s): Z72.0 - Tobacco use (5) Tobacco abuse counseling Status: Chronic Current Visit: No Code(s): Z71.6 - Tobacco abuse counseling (6) Dependent edema Status: Chronic Current Visit: Yes Code(s): R60.9 - Edema, unspecified (7) Non-ischemic cardiomyopathy Status: Chronic Current Visit: No Code(s): I42.8 - Other cardiomyopathies (8) Paroxysmal atrial fibrillation Status: Chronic Current Visit: No Code(s): I48.0 - Paroxysmal atrial fibrillation (9) Acute on chronic systolic (congestive) heart failure Status: Chronic Current Visit: No Code(s): I50.23 - Acute on chronic systolic (congestive) heart failure (10) Secondary pulmonary arterial hypertension Status: Chronic Current Visit: No Code(s): I27.21 - Secondary pulmonary arterial hypertension (11) Non-rheumatic tricuspid valve insufficiency Status: Chronic Current Visit: No Code(s): I36.1 - Nonrheumatic tricuspid (valve) insufficiency (12) Nonrheumatic mitral (valve) insufficiency Status: Chronic Current Visit: No Code(s): I34.0 - Nonrheumatic mitral (valve) insufficiency (13) Essential (primary) hypertension Status: Chronic Current Visit: No Code(s): I10 - Essential (primary) hypertension (14) History of breast cancer Status: Chronic Current Visit: No Code(s): Z85.3 - Personal history of malignant neoplasm of breast (15) COPD (chronic obstructive pulmonary disease) Status: Chronic Current Visit: No Qualifiers: Code(s): J44.9 - Chronic obstructive pulmonary disease, unspecified (16) Nicotine dependence Status: Chronic Current Visit: No Code(s): F17.200 - Nicotine dependence, unspecified, uncomplicated (17) Chronic anticoagulation Status: Chronic Current Visit: No Code(s): Z79.01 - USP (current) use of anticoagulants History of Present Illness Date of Service: 07/05/20 Chief Complaint: Bilateral lower extremity swelling and edema History of Wound: This is a 74-year-old female with a longstanding history of chronic swelling and edema in her lower extremities bilaterally. She has previously been treated at this facility for the symptoms. According to the patient, the swelling and edema in her lower extremities became much more severe just within the last 2 weeks. The patient chronically sleeps in a chair, due to back problems. She is ambulatory, but not very active. She spends long hours each day in a sitting position. She suffers from multiple pre-existing medical problems, as detailed elsewhere. In the past, she has developed ulcerations in her lower extremities due to the severe swelling and edema. She has previously been prescribed graduated compression stockings, which she has not been wearing. Her service operator, Dr. Jovel, has previously prescribed a diuretic, but the patient has been noncompliant in taking the medication. Of note, a noninvasive lower extremity arterial study performed on November 03, 2019, revealed no evidence of significant arterial occlusive disease in the lower extremities. The patient was hospitalized in April 2020 for approximately 4 days in treatment for congestive heart failure. The patient is debilitated, and relatively immobile. Her ambulatory capacity is extremely limited. She sits throughout the day, and sleeps in a chair in an upright position at night. The patient denies a history of lower extremity thrombophlebitis. Past Medical History Past Medical History: Chronic Problems (Last Reviewed 01/25/20 @ 10:49 by Jayleen Burr OPERATING ROOM REGISTERED NURSE, OPERATING ROOM REGISTERED NURSE-C) Leg swelling (Chronic) Leg edema (Chronic) Chronic respiratory failure with hypoxia (Chronic) Tobacco abuse (Chronic) Tobacco abuse counseling (Chronic) Dependent edema (Chronic) Bilateral leg ulcer (Chronic) Non-ischemic cardiomyopathy (Chronic) Paroxysmal atrial fibrillation (Chronic) Acute on chronic systolic (congestive) heart failure (Chronic) Secondary pulmonary arterial hypertension (Chronic) Non-rheumatic tricuspid valve insufficiency (Chronic) Nonrheumatic mitral (valve) insufficiency (Chronic) Essential (primary) hypertension (Chronic) Lung mass (Chronic) History of breast cancer (Chronic) COPD (chronic obstructive pulmonary disease) (Chronic) Nicotine dependence (Chronic) Chronic anticoagulation (Chronic) Surgical History: mastectomy, - - The patient has previously undergone a left mastectomy, right breast lumpectomy, and resection of a left pulmonary nodule. She also has undergone tubal ligation. She is a Ab0. Allergies/Adverse Reactions: Allergies albuterol sulfate [From Combivent] Allergy (Verified 06/28/20 10:55) Swelling ipratropium bromide [From Combivent] Allergy (Verified 06/28/20 10:55) Swelling metoprolol Allergy (Verified 06/28/20 10:55) Laryngospasms Sulfa (Sulfonamide Antibiotics) Allergy (Verified 06/28/20 10:55) Rash beclomethasone [From Qvar] Adverse Reaction (Verified 06/28/20 10:55) COUGHING benzalkonium chloride [From Merthiolate (benzalkonium)] Adverse Reaction (Verified 06/28/20 10:55) Rash codeine Adverse Reaction (Verified 06/28/20 10:55) Chest tightness chest hurts doxycycline Adverse Reaction (Verified 06/28/20 10:55) Abd cramps/diarrhea formoterol fumarate [From Dulera] Adverse Reaction (Verified 06/28/20 10:55) PT UNSURE OF REACTION hydrochlorothiazide Adverse Reaction (Verified 06/28/20 10:55) PT UNSURE OF REACTION ibuprofen [From Advil] Adverse Reaction (Verified 06/28/20 10:55) PT UNSURE OF REACTION iodine Adverse Reaction (Verified 06/28/20 10:55) Itching merbromin Adverse Reaction (Verified 06/28/20 10:55) PT UNSURE OF REACTION mometasone furoate [From Dulera] Adverse Reaction (Verified 06/28/20 10:55) PT UNSURE OF REACTION oseltamivir [From Tamiflu] Adverse Reaction (Verified 06/28/20 10:55) uterine pain prednisone Adverse Reaction (Verified 06/28/20 10:55) Abd cramps/diarrhea PLASTIC TAPE Allergy (Uncoded 06/23/20 12:22) Rash Home Medications: Ambulatory Orders Medication Instructions Recorded Multivit-Min/Iron/Folic/Lutein 1 tab PO DAILY 10/05/19 [Centrum Silver Women Tablet] Handicap Placard #1 ea 10/22/19 rivaroxaban 20 mg tablet 20 mg PO DINNER #30 tab 01/25/20 carvedilol 25 mg tablet 25 mg PO BID #180 tab 02/25/20 Guaifenesin [Mucinex] 1,200 mg PO BID #14 tab 04/22/20 Nystatin Powder [Mycostatin Powder] 1 applic TOPICAL TID #1 bottle 04/22/20 Quinapril HCl [Accupril] 20 mg PO DAILY #180 tab 04/22/20 albuterol sulfate 90 mcg/actuation 1 - 2 puff INHALATION Q4H PRN PRN 04/29/20 aerosol inhaler #18 g fluticasone propionate 230 2 puff INHALATION BID #1 device 04/29/20 mcg-salmeterol 21 mcg/actuation HFA inhaler tiotropium bromide 2.5 2 puff INHALATION BID #4 g 04/29/20 mcg/actuation mist for inhalation Ketoconazole [Nizoral Cream] 1 applic TOPICAL DAILY #1 tube 06/09/20 Cephalexin [Keflex] 500 mg PO Q6 #40 cap 06/23/20 - Family History Maternal Family History: Family History (Last Reviewed 01/25/20 @ 10:49 by Jayleen Burr OPERATING ROOM REGISTERED NURSE, OPERATING ROOM REGISTERED NURSE-C) Father Emphysema of lung Sister Cancer No pertinent history Paternal Family History: Family History (Last Reviewed 01/25/20 @ 10:49 by Jayleen Burr OPERATING ROOM REGISTERED NURSE, OPERATING ROOM REGISTERED NURSE-C) Father Emphysema of lung Sister Cancer No pertinent history Lives: Spouse/ Significant Other Smoking Status: Current every day smoker Tobacco Use: Cigarettes Alcohol: None Drugs: None Review of Systems Constitutional: Denies: Chills, Fever, Weight Change Eyes: Denies: Pain, Vision Change HEENT: Denies: Difficulty Hearing, Difficulty Swallowing, Sinus Congestion Cardiovascular: Denies: Chest Pain, Palpitations Respiratory: Denies: Cough, Shortness of Breath Gastrointestinal: Denies: Diarrhea, Nausea, Vomiting Genitourinary: Denies: Dysuria, Hematuria Endocrine: Denies: Heat/ Cold Intolerance, Polydipsia, Polyuria Hematologic/ Lymphatic: Denies: Easy Bruising, Easy Bleeding - Physical Exam Vital Signs Temp Pulse Resp BP 97.0 F L 93 20 H 122/49 H 07/05/20 11:05 07/05/20 11:05 07/05/20 11:05 07/05/20 11:05 General: Alert, Oriented x3, Cooperative, No apparent distress, Well developed, Well nourished HEENT: Atraumatic, PERRLA, EOMI, Normocephalic Oral: Moist Mucosa Neck: No JVD Lungs: Normal air movement Abdomen: Non-Distended Extremities: No clubbing, No cyanosis, No Calf Tenderness, - - Mild swelling and edema persist in both lower extremities. However, it is markedly improved over that noted 1 week ago. Both visually, and by means of circumference measurements, there has been significant improvement in 1 week. There are no open wounds or ulcerations. There is mild erythema bilaterally. This does not appear to be cellulitic, but suspected to be inflammatory. Skin: No breakdown Wound Measurements and Assessment WC - Nurse 1 - General Ulcer Measurement Start: 06/28/20 10:39 Freq: Status: Active Protocol: Activity Type Activity Date Activity User E-Sign Co-Sign Detail Recorded Client Recorded Date Recorded By Document 07/05/20 11:05 [id number] 07/05/20 11:14 MW 07/05/20 11:05 Wound Center Nurse 1 [Edema Assessment] -Lower Limb Edema Present Yes -Right Calf (cm) 40.5 -Right Ankle (cm) 25.5 -Left Calf (cm) 41.5 -Left Ankle (cm) 25.5 Musculoskeletal: No Muscle Wasting Neurological: Cranial nerves II-XII grossly intact, Neuro grossly intact Psych/Mental Status: Normal Affect, Appropriate, Alert and oriented to time, place, person, mood and affect Debridement Note Post-Debridement Measurements/Treatment WC - Nurse 2 - General Ulcer CM Notes Start: 06/28/20 10:39 Freq: Status: Active Protocol: Activity Type Activity Date Activity User E-Sign Co-Sign Detail Recorded Client Recorded Date Recorded By Document 06/28/20 12:50 PL [id number] 06/28/20 12:50 PL 06/28/20 12:50 Pain Scale: 0-10 Numeric Is Patient Pain Free? Yes WC - Nurse 3 - General Ulcer D/C NN Start: 06/28/20 10:39 Freq: Status: Active Protocol: Activity Type Activity Date Activity User E-Sign Co-Sign Detail Recorded Client Recorded Date Recorded By Document 06/28/20 11:54 [facility] [id number] 06/28/20 11:55 [facility] Document 07/01/20 13:26 [facility] [id number] 07/01/20 13:28 [facility] 06/28/20 07/01/20 11:54 13:26 Wound Care Nurse 3 Right -Multi-Layered Wrap Application Multi-Layer Multi-Layer Comp - Right ($ Comp - Right ($ ) ) -Other abd Left -Multi-Layered Wrap Application Multi-Layer Multi-Layer Comp - Left ($) Comp - Right ($ ) -Other abd Treatment Response Procedure Tolerated Well Pain Scale: 0-10 Numeric Is Patient Pain Free? Yes Yes WC - Visit Discharge Discharge Condition Stable Stable Ambulatory Status Wheelchair Wheelchair Transportation Private Auto Private Auto Accompanied by No debridement was completed today - There are no open wounds or ulcerations. Assessment/Plan Active Problems (Last Reviewed 01/25/20 @ 10:49 by Jayleen Burr OPERATING ROOM REGISTERED NURSE, OPERATING ROOM REGISTERED NURSE-C) Leg swelling (Chronic) Leg edema (Chronic) Dependent edema (Chronic) Assessment: This is a 74-year-old female who presented with severe swelling and edema in her lower extremities. She is also known to suffer from congestive heart failure. The patient is relatively immobile. She sits for long hours each day. Due to her pre-existing medical problems, she also sleeps in a chair, sitting in an upright position. Thus, it appears as though the swelling and edema in her lower extremities is largely related to dependency and a lack of activity. A noninvasive lower extremity arterial study has been performed earlier this year, revealing no evidence of arterial occlusive disease in the lower extremities. A regimen appropriate to the long-term management of the patient's lower extremity swelling has been previously detailed. However, the patient has been largely noncompliant. She had been prescribed graduated compression stockings, and advised to elevate her lower extremities much as possible. She had been told to avoid prolonged idle sitting. Activity had been encouraged. Plan: A lengthy discussion has been undertaken with the patient and her once again. The importance of leg elevation has been strongly stressed. Patient has been encouraged to elevate her lower extremities much as possible. It has been stressed that the patient should position her legs to the same level as her heart, or higher. This should be accomplished as much as possible. She has been encouraged to sleep on a flat surface at night, or at least with her legs at the same level as her heart. Activity has been encouraged. Prolonged idle sitting has been discouraged. We are to implement the use of multilayer Unna boots bilaterally, in light of the erythema which has developed within the last week. The Unna boots will be changed twice weekly. The patient and her have been advised to collaborate with her service operator, and informed that the measures implemented may create an enhanced venous return to her heart, and could result in symptoms of congestive heart failure. Therefore, the patient has been advised to collaborate closely with her service operator. The patient is to return in 1 week for reassessment. Influenza vaccine was not administered. The patient is a smoker, and has been advised to quit. Hazards of smoking have been explained. The patient weighs 150 pounds. She stands 5 feet 4 inches tall. Her BMI is 25.7, which places her in the overweight category. Weight optimization has been recommended.
== END 2020-07-20 23:59 ==
LOC: WC 13:45
PROVIDERS: Family Provider Family Medicine; PCP Internal Medicine; Visit Provider Surgery
DX: M79.89 Other specified soft tissue disorders (principal); R60.0 Localized edema; I27.21 Secondary pulmonary arterial hypertension; J96.11 Chronic respiratory failure with hypoxia; I11.0 Hypertensive heart disease with heart failure; I50.23 Acute on chronic systolic (congestive) heart failure; I48.0 Paroxysmal atrial fibrillation; J44.9 Chronic obstructive pulmonary disease, unspecified; I42.8 Other cardiomyopathies; E66.3 Overweight; Z68.25 Body mass index [BMI] 25.0-25.9, adult; F17.210 Nicotine dependence, cigarettes, uncomplicated; Z91.19 Patient's noncompliance with other medical treatment and regimen; Z79.51 Long term (current) use of inhaled steroids; Z79.01 Long term (current) use of anticoagulants; Z85.3 Personal history of malignant neoplasm of breast; Z79.899 Other long term (current) drug therapy
CPT/HCPCS: 29580; 29581; 99212; G0463

== ENCOUNTER 2020-07-12 09:28 | Inpatient (IN) | payer MEDICARE, OTHER, SELFPAY ==
[2020-07-05 11:05] VITALS: BMI 25.7
[2020-07-12] VITALS (12 sets, daily range): BP systolic 98–125; BP diastolic 44–93; PULSE 60–77; RESP 15–20; TEMP 36.1–36.6; O2SAT 96–100; BMI 36.4; BMI 35.4; BMI 35.5
--- NOTE | 2020-07-12 09:44 | EKG12_ITS ---
Test Reason : SOB Blood Pressure : / mmHG Vent. Rate : 057 BPM Atrial Rate : 050 BPM P-R Int : 000 ms QRS Dur : 094 ms QT Int : 420 ms P-R-T Axes : 000 229 116 degrees QTc Int : 408 ms Atrial fibrillation with slow ventricular response Right superior axis deviation Pulmonary disease pattern Septal infarct , age undetermined Abnormal ECG Confirmed by ELOISE GILBERT, JAXON ([id number]), editor news DANIEL GRANGER ([id number]) on 07/15/2020 12:59:08 PM Referred By: KAYLENE Confirmed By:JAXON NAVAS MD
--- NOTE | 2020-07-12 09:44 | RAD_ITS ---
STUDY: X-RAY CHEST REASON FOR EXAM: Female, 74 years old. CHF, edema, SOB, cough TECHNIQUE: Single AP portable view of the chest. COMPARISON: Comparison is made with prior study dated 04/19/2020. FINDINGS: EKG electrodes are seen. Surgical clips are seen in both axillary regions. There is evidence of a left perihilar mass/infiltrate measuring 6.5 cm x 7.3 cm. Blunting of both costophrenic angles. There is moderate cardiac enlargement. Calcification of the mitral valve annulus. Normal mediastinum and mike. Normal visualized pulmonary arteries. There is atherosclerotic calcification of the aortic arch with tortuosity. There are diffuse degenerative changes of the visualized thoracic spine. Dextroscoliosis. Normal visualized ribs, clavicles, and shoulders. There is no demonstrated abnormality of the visualized soft tissue structures of the upper abdomen. RAD/Chest 1 View (Portable) IMPRESSION: Persistent left parahilar mass. Blunting of both costophrenic angles in keeping with small bilateral effusions. Electronically Signed: Kenneth Salinas, at 10:52 EDT , Service support ,
--- NOTE | 2020-07-12 09:48 | ED.DCSUM_ITS ---
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 Patient has a history of diastolic CHF and A. fib. Last echo showed an EF of about 50%. Family tells me that a prescription for Lasix has run out. She has been recently seen at the wound care clinic for sores on her leg. She saw . I did review that note noting his observations and plan. She wears 2 L of home oxygen chronically and despite chronic hypoxic respiratory failure continues to smoke. She is anticoagulated with Xarelto. Patient was admitted earlier this year with hyponatremia and was diuresed approximately 11 L and she lost 26 pounds. - Past Medical History (1) Hyponatremia Status: Chronic (2) Acute on chronic systolic (congestive) heart failure Status: Chronic (3) Bilateral leg ulcer Status: Chronic (4) COPD (chronic obstructive pulmonary disease) Status: Chronic (5) Chronic anticoagulation Status: Chronic (6) Chronic respiratory failure with hypoxia Status: Chronic (7) Dependent edema Status: Chronic (8) Nicotine dependence Status: Chronic (9) Non-ischemic cardiomyopathy Status: Chronic (10) Non-rheumatic tricuspid valve insufficiency Status: Chronic (11) Nonrheumatic mitral (valve) insufficiency Status: Chronic (12) Paroxysmal atrial fibrillation Status: Chronic (13) Secondary pulmonary arterial hypertension Status: Chronic Past Medical History - Allergies and Home Meds Allergies/Adverse Reactions: Allergies albuterol sulfate [From Combivent] Allergy (Verified 07/12/20 09:35) Swelling ipratropium bromide [From Combivent] Allergy (Verified 07/12/20 09:35) Swelling metoprolol Allergy (Verified 07/12/20 09:35) Laryngospasms Sulfa (Sulfonamide Antibiotics) Allergy (Verified 07/12/20 09:35) Rash beclomethasone [From Qvar] Adverse Reaction (Verified 07/12/20 09:35) COUGHING benzalkonium chloride [From Merthiolate (benzalkonium)] Adverse Reaction (Verified 07/12/20 09:35) Rash codeine Adverse Reaction (Verified 07/12/20 09:35) Chest tightness chest hurts doxycycline Adverse Reaction (Verified 07/12/20 09:35) Abd cramps/diarrhea formoterol fumarate [From Dulera] Adverse Reaction (Verified 07/12/20 09:35) PT UNSURE OF REACTION hydrochlorothiazide Adverse Reaction (Verified 07/12/20 09:35) PT UNSURE OF REACTION ibuprofen [From Advil] Adverse Reaction (Verified 07/12/20 09:35) PT UNSURE OF REACTION iodine Adverse Reaction (Verified 07/12/20 09:35) Itching merbromin Adverse Reaction (Verified 07/12/20 09:35) PT UNSURE OF REACTION mometasone furoate [From Dulera] Adverse Reaction (Verified 07/12/20 09:35) PT UNSURE OF REACTION oseltamivir [From Tamiflu] Adverse Reaction (Verified 07/12/20 09:35) uterine pain prednisone Adverse Reaction (Verified 07/12/20 09:35) Abd cramps/diarrhea PLASTIC TAPE Allergy (Uncoded 07/12/20 09:35) Rash Primary Care Physician: Amber Sanders MD [Primary Care Provider] - Prior records reviewed: Yes Surgical History: noncontributory, mastectomy, - - The patient has previously undergone a left mastectomy, right breast lumpectomy, and resection of a left pulmonary nodule. She also has undergone tubal ligation. She is a Ab0. Lives: Spouse/ Significant Other Smoking Status: Current every day smoker Drugs: None - Family History Maternal Family History: Family History (Last Reviewed 01/25/20 @ 10:49 by Jayleen Burr NP, TEACHER [employer]-C) Father Emphysema of lung Sister Cancer Family History: Reports: No pertinent history Paternal Family History: Family History (Last Reviewed 01/25/20 @ 10:49 by Jayleen Burr NP, TEACHER [employer]-C) Father Emphysema of lung Sister Cancer Family History: Reports: No pertinent history Review of Systems General: Denies: Chills, Fever, Sweats Eyes: Denies: Visual changes - bilaterally, Diplopia ENT: Denies: Rhinorrhea, Sore throat Cardiovascular: Denies: Chest pain, Palpitations Respiratory: Reports: Dyspnea, Cough, Dyspnea on exertion, Orthopnea Gastrointestinal: Denies: Abdominal pain, Nausea, Vomiting, Diarrhea, Melena, Hematochezia Genitourinary: Denies: Dysuria, Hematuria, Frequency Musculoskeletal: Reports: Swelling. Denies: Back pain, Extremity Pain Skin: Denies: Rash, Wounds Neurological: Denies: Headache, Weakness, Numbness Physical Exam Vital Signs/Narrative: Vital Signs Temp Pulse Resp BP Pulse Ox 07/12/20 09:34 96.9 F L 60 20 H 98/52 L 96 07/12/20 09:31 96.9 F L 60 20 H 98/52 L 96 Inital Vital Signs reviewed: Yes General: Well nourished, Well developed, No Acute Distress Head: Normocephalic, Atraumatic Eyes: Perrl, EOMI ENT: Moist mucous membranes, No rhinorrhea Neck: Supple, Nontender Cardiovascular: Irregular, Bradycardia, Murmur Respiratory: No distress, Chest nontender, Rales, Diminished Abdomen: Soft, Nontender, Nondistended, Normal bowel sounds Back: Nontender, Normal Inspection Extremities: Edema - Patient has significant pitting edema of the lower extremities above the thighs onto the lower abdomen, - - Chronic wounds of the lower extremity Skin: Normal color, No rash Neurological: Alert, Oriented x3, Cranial nerves II-XII grossly intact, Normal Strength, Normal Sensation Psychological: Normal affect, Normal Mood Diagnostic/Tx/Re-eval Clinical Impression(s) from Imaging Studies Chest X-Ray 07/12/20 09:44 IMPRESSION: Persistent left parahilar mass. Blunting of both costophrenic angles in keeping with small bilateral effusions. Electronically Signed: Kenneth Salinas, at 10:52 EDT , Service support , Laboratory Last Values WBC 7.0 K/mm3 (4.4-11.0) 07/12/20 09:55 RBC 3.32 M/mm3 (4.2-5.4) L 07/12/20 09:55 Hgb 7.3 g/dL (12.0-15.0) L 07/12/20 09:55 Hct 24.7 % (37-47) L 07/12/20 09:55 MCV 74.4 fL (81-99) L 07/12/20 09:55 MCH 22.0 pg (27.0-32.0) L 07/12/20 09:55 MCHC 29.6 g/dL (32-36) L 07/12/20 09:55 RDW Std Deviation 46.3 fl (35.1-43.9) H 07/12/20 09:55 RDW Coeff of Malini 17.2 % (11.6-14.6) H 07/12/20 09:55 Plt Count 338 K/mm3 (150-450) 07/12/20 09:55 MPV 9.2 fl (6.2-12.0) 07/12/20 09:55 Immature Gran % (Auto) 0.700 % (0.0-0.9) 07/12/20 09:55 Neut % (Auto) 81.2 % (47-70) H 07/12/20 09:55 Lymph % (Auto) 8.0 % (19-41) L 07/12/20 09:55 [place] % (Auto) 9.7 % (0-10) 07/12/20 09:55 Eos % (Auto) 0.3 % (0-5) 07/12/20 09:55 Baso % (Auto) 0.1 % (0-1) 07/12/20 09:55 Absolute Neuts (auto) 5.7 X10^3/uL (2.0-7.7) 07/12/20 09:55 Absolute Lymphs (auto) 0.56 X10^3/uL (0.83-4.51) L 07/12/20 09:55 Nucleated RBC % 2.6 % (0-5) 07/12/20 09:55 Nucleated RBCs/100 WBC % (0-5) 07/12/20 09:55 Differential Comment SCANNED 07/12/20 09:55 Diff Path Review February07/12/20 09:55 Polychromasia 1+ 07/12/20 09:55 Hypochromasia 3+ 07/12/20 09:55 Poikilocytosis 2+ 07/12/20 09:55 Anisocytosis 2+ 07/12/20 09:55 Microcytosis 1+ 07/12/20 09:55 Ovalocytes 1+ 07/12/20 09:55 Stomatocytes 2+ 07/12/20 09:55 PT 24.3 SECONDS (11.7-14.9) H 07/12/20 09:55 INR 2.2 07/12/20 09:55 APTT 40.4 Seconds (24.1-36.2) H 07/12/20 09:55 Sodium 111 mmol/L (136-145) L* 07/12/20 09:55 Potassium 5.8 mmol/L (3.5-5.1) H 07/12/20 09:55 Chloride 78 mmol/L (98-107) L 07/12/20 09:55 Carbon Dioxide 26.0 mmol/L (21.0-32.0) 07/12/20 09:55 Anion Gap 7 (5-15) 07/12/20 09:55 BUN 6 mg/dL (7-18) L 07/12/20 09:55 Creatinine 0.46 mg/dL (0.55-1.02) L 07/12/20 09:55 Estim Creat Clear Calc 43.27 ml/min 07/12/20 09:55 Est GFR (MDRD) Af Amer 172 mL/min (>60) 07/12/20 09:55 Est GFR (MDRD) Non-Af 142 mL/min (>60) 07/12/20 09:55 BUN/Creatinine Ratio 13.1 RATIO (10-20) 07/12/20 09:55 Glucose 81 mg/dL (74-106) 07/12/20 09:55 Lactic Acid 1.5 mmol/L (0.4-1.9) 07/12/20 09:55 Calcium 8.6 mg/dL (8.5-10.1) 07/12/20 09:55 Total Bilirubin 0.90 mg/dL (0.20-1.00) 07/12/20 09:55 AST 21 U/L (15-37) 07/12/20 09:55 ALT 18 U/L (13-56) 07/12/20 09:55 Alkaline Phosphatase 169 U/L (45-117) H 07/12/20 09:55 Troponin I < 0.015 ng/mL (<0.045) 07/12/20 09:55 B-Natriuretic Peptide 612.9 pg/mL (0-100) H 07/12/20 09:55 Total Protein 6.5 g/dL (6.4-8.2) 07/12/20 09:55 Albumin 3.3 g/dL (3.2-5.0) 07/12/20 09:55 Globulin 3.2 g/dL (2.2-4.2) 07/12/20 09:55 Albumin/Globulin Ratio 1.0 RATIO (0.9-2.4) 07/12/20 09:55 - EKG Initial EKG Interpretation: Atrial Fibrillation - EKG demonstrates atrial fibrillation with a slow ventricular response of 57. No concerning features of ACS - Medical Decision Making Cai catheter was placed in nursing notes skin sloughing of the perineum. She received Lasix. Patient noted to be hyponatremic. This is happened in the past was felt to be hypervolemic hyponatremia. She is noted to have a hemoglobin of 7.3 which is the lowest it has been possibly delusional but probably multifactorial but not acute blood loss. Plan is admission for diuresis and further care. ED Disposition - Plan for ED Patient: Disposition: Acute Care Hospital [facility] Diagnosis: Hyponatremia, Acute on chronic systolic (congestive) heart failure, Chronic an ticoagulation, Non-small cell lung cancer, Lung mass, Paroxysmal atrial fibrillation, Anemia Referrals: Amber Sanders MD [Primary Care Provider] -
[2020-07-12 10:12] LABS: Absolute Lymphocyte Count 0.56 X10^3/uL (0.83-4.51); Absolute Neutrophil Count 5.7 X10^3/uL (2.0-7.7); Basophil# 0.01 X10^3/uL; Basophil% 0.1 % (0-1); Eosinophil# 0.02 X10^3/uL; Eosinophils% 0.3 % (0-5); Hematocrit 24.7 % (37-47); Hemoglobin 7.3 g/dL (12.0-15.0); Lymphocyte # 0.56 X10^3/ul (4.0); Mean Corp Hgb Conc 29.6 g/dL (32-36); Mean Corpuscular Volume 74.4 fL (81-99); Mean Platelet Vol. 9.2 fl (6.2-12.0); Monocyte# 0.68 X10^3/uL; Monocyte% 9.7 % (0-10); NRBC Flagged by Analyzer 2.6 % (0-5); Neutrophil # 5.72 X10^3/uL (2.7-7.7); Neutrophil % 81.2 % (47-70); POSITIVE DIFFERENTIAL YES; Platelet Count 338 K/mm3 (150-450); RBC Distribution Width CV 17.2 % (11.6-14.6); RBC Distribution Width SD 46.3 fl (35.1-43.9); Red Blood Count 3.32 M/mm3 (4.2-5.4)
[2020-07-12 10:17] LABS: International Normalized Ratio 2.2; Prothrombin Time (Protime)PT. 24.3 SECONDS (11.7-14.9)
[2020-07-12 10:19] LABS: Partial Thromboplast Time 40.4 Seconds (24.1-36.2)
[2020-07-12 10:21] LABS: Differential Indicated SCAN CRITERIA MET
[2020-07-12 10:35] LABS: BNP,B-Type NATRIURETIC PEPTIDE 612.9 pg/mL (0-100)
[2020-07-12 10:42] LABS: Lactic Acid 1.5 mmol/L (0.4-1.9)
[2020-07-12 10:43] LABS: AST(SGOT) 21 U/L (15-37); Alanine Aminotransfer ALT/SGPT 18 U/L (13-56); Albumin, Serum 3.3 g/dL (3.2-5.0); Alkaline Phosphatase 169 U/L (45-117); Anion Gap 7 (5-15); BUN 6 mg/dL (7-18); BUN/Creat Ratio 13.1 RATIO (10-20); Calcium,Total 8.6 mg/dL (8.5-10.1); Chloride 78 mmol/L (98-107); Creatinine, Serum 0.46 mg/dL (0.55-1.02); EST Glomerular Filtration Rate 142 mL/min (>60); Est Glom Filt Rate - Afr Amer 172 mL/min (>60); Estimated Creatinine Clearance 43.27 ml/min; Globulin 3.2 g/dL (2.2-4.2); Glucose 81 mg/dL (74-106); Potassium 5.8 mmol/L (3.5-5.1); Protein, Total 6.5 g/dL (6.4-8.2); Sodium Level 111 mmol/L (136-145)
[2020-07-12 10:46] LABS: Differential Comment SCANNED; Hypochromasia 3+
[2020-07-12 10:49] LABS: Anisocytosis 2+; Microcytosis 1+; Poikilocytosis 2+; Stomatocyte 2+
[2020-07-12 10:51] LABS: Ovalocyte 1+; Polychromasia 1+
[2020-07-12] MEDS: Furosemide 100 MG/10 ML Vial 80 MG IV (10:51)
--- NOTE | 2020-07-12 11:14 | NURSING ---
DR BHARGAVI MAURICE
--- NOTE | 2020-07-12 11:25 | NURSING ---
PCU BHARGAVI CHF EXAC, HYPONATREMIA
--- NOTE | 2020-07-12 11:34 | PCM.HP.STD ---
Problem List (1) Hyponatremia Status: Acute (2) COPD exacerbation Status: Acute (3) Leg edema Status: Chronic (4) Non-small cell lung cancer Status: Chronic (5) Anemia Status: Acute (6) Chronic respiratory failure with hypoxia Status: Chronic (7) Tobacco abuse Status: Chronic (8) Tobacco abuse counseling Status: Chronic (9) Dependent edema Status: Chronic (10) Bilateral leg ulcer Status: Chronic Qualifiers: (11) Non-ischemic cardiomyopathy Status: Chronic (12) Paroxysmal atrial fibrillation Status: Chronic (13) Acute on chronic systolic (congestive) heart failure Status: Chronic (14) Secondary pulmonary arterial hypertension Status: Chronic (15) Non-rheumatic tricuspid valve insufficiency Status: Chronic (16) Nonrheumatic mitral (valve) insufficiency Status: Chronic (17) Essential (primary) hypertension Status: Chronic (18) Lung mass Status: Chronic (19) History of breast cancer Status: Chronic (20) COPD (chronic obstructive pulmonary disease) Status: Chronic Qualifiers: (21) Nicotine dependence Status: Chronic (22) Chronic anticoagulation Status: Chronic (23) Acute on chronic systolic heart failure Status: Acute History of Present Illness Date of Admission: 07/12/20 Chief Complaint: Shortness of breath for 3 weeks The patient is a 74 year old F WITH multiple comorbidities as listed above including chronic hypoxic respiratory failure on 2 L of oxygen on exertion and CHF, COPD came to ER with progressive worsening of shortness of breath for 3 weeks. Patient has anasarca, chronic bilateral lower extremity swelling up to thigh, abdominal swelling with subcutaneous edema. She denies chest pressure or chest pain. She also has cough and sputum which has increased in frequency and severity. Sputum is mainly whitish. Denies fever or chills. She was admitted between April 18?April 22, 2020 for similar history. [] She has not been taking Lasix and states she ran out about 3 weeks ago. She has not followed her doctors, Dr. luo for last 6 months, pulmonary clinic, Dr. Campos, ticketing clerk and oncologist. In the ED, triage vitals showed blood pressure 98/52, respiratory rate 20/min, heart rate 67 and pulse ox 96% on 2 L of oxygen. She was given Lasix 80 mg and her blood pressure improved to 125/93. She also has severe hyponatremia, sodium 111, K5.8, chloride 78, BUN 6/0.46. CBC hemoglobin 7.3, platelet 10/23/1936 no leukocytosis. INR 2.2 although not relevant as she is on Xarelto. Chest x-ray is been reviewed and shows small bilateral pleural effusion with chronic left perihilar mass 6.5 x 7.3 cm. EKG atrial fibrillation with PVC and LAD with slow ventricular response 57 bpm. Past Medical History Past Medical History (Chronic Problems): Chronic Problems (Last Reviewed 01/25/20 @ 10:49 by Jayleen Burr COMMISSIONS MANAGER, COMMISSIONS MANAGER-C) Leg edema (Chronic) Non-small cell lung cancer (Chronic) Chronic respiratory failure with hypoxia (Chronic) Tobacco abuse (Chronic) Tobacco abuse counseling (Chronic) Dependent edema (Chronic) Bilateral leg ulcer (Chronic) Non-ischemic cardiomyopathy (Chronic) Paroxysmal atrial fibrillation (Chronic) Acute on chronic systolic (congestive) heart failure (Chronic) Secondary pulmonary arterial hypertension (Chronic) Non-rheumatic tricuspid valve insufficiency (Chronic) Nonrheumatic mitral (valve) insufficiency (Chronic) Essential (primary) hypertension (Chronic) Lung mass (Chronic) History of breast cancer (Chronic) COPD (chronic obstructive pulmonary disease) (Chronic) Nicotine dependence (Chronic) Chronic anticoagulation (Chronic) Medical History: Medical History (Last Reviewed 01/25/20 @ 10:49 by Jayleen Burr COMMISSIONS MANAGER, COMMISSIONS MANAGER-C) Bilateral leg ulcer (Chronic) L97.919, L97.929 Non-ischemic cardiomyopathy (Chronic) I42.8 Paroxysmal atrial fibrillation (Chronic) I48.0 Acute on chronic systolic (congestive) heart failure (Chronic) I50.23 Secondary pulmonary arterial hypertension (Chronic) I27.21 Non-rheumatic tricuspid valve insufficiency (Chronic) I36.1 Nonrheumatic mitral (valve) insufficiency (Chronic) I34.0 Essential (primary) hypertension (Chronic) I10 Lung mass (Chronic) R91.8 History of breast cancer (Chronic) Z85.3 COPD (chronic obstructive pulmonary disease) (Chronic) J44.9 Nicotine dependence (Chronic) F17.200 Debility R53.81 Dependence on supplemental oxygen Z99.81 Dependent edema R60.9 Immobility Z74.09 Leg edema, left R60.0 Leg edema, right R60.0 Leg swelling M79.89 Lumbar disc disease M51.9 Suspected chronic obstructive pulmonary disease based on initial evaluation J44.9 Tobacco abuse Z72.0 Tobacco abuse counseling Z71.6 New onset A. fib with RVR Thrush, oral (Resolved) B37.0 Acute CHF (Inactive) I50.9 Allergies albuterol sulfate [From Combivent] Allergy (Verified 07/12/20 09:35) Swelling ipratropium bromide [From Combivent] Allergy (Verified 07/12/20 09:35) Swelling metoprolol Allergy (Verified 07/12/20 09:35) Laryngospasms Sulfa (Sulfonamide Antibiotics) Allergy (Verified 07/12/20 09:35) Rash beclomethasone [From Qvar] Adverse Reaction (Verified 07/12/20 09:35) COUGHING benzalkonium chloride [From Merthiolate (benzalkonium)] Adverse Reaction (Verified 07/12/20 09:35) Rash codeine Adverse Reaction (Verified 07/12/20 09:35) Chest tightness chest hurts doxycycline Adverse Reaction (Verified 07/12/20 09:35) Abd cramps/diarrhea formoterol fumarate [From Dulera] Adverse Reaction (Verified 07/12/20 09:35) PT UNSURE OF REACTION hydrochlorothiazide Adverse Reaction (Verified 07/12/20 09:35) PT UNSURE OF REACTION ibuprofen [From Advil] Adverse Reaction (Verified 07/12/20 09:35) PT UNSURE OF REACTION iodine Adverse Reaction (Verified 07/12/20 09:35) Itching merbromin Adverse Reaction (Verified 07/12/20 09:35) PT UNSURE OF REACTION mometasone furoate [From Dulera] Adverse Reaction (Verified 07/12/20 09:35) PT UNSURE OF REACTION oseltamivir [From Tamiflu] Adverse Reaction (Verified 07/12/20 09:35) uterine pain prednisone Adverse Reaction (Verified 07/12/20 09:35) Abd cramps/diarrhea PLASTIC TAPE Allergy (Uncoded 07/12/20 09:35) Rash Home Medications: Ambulatory Orders Medication Instructions Recorded Multivit-Min/Iron/Folic/Lutein 1 tab PO DAILY 10/05/19 [Centrum Silver Women Tablet] Handicap Placard #1 ea 10/22/19 rivaroxaban 20 mg tablet 20 mg PO DINNER #30 tab 01/25/20 carvedilol 25 mg tablet 25 mg PO BID #180 tab 02/25/20 Nystatin Powder [Mycostatin Powder] 1 applic TOPICAL TID #1 bottle 04/22/20 albuterol sulfate 90 mcg/actuation 1 - 2 puff INHALATION Q4H PRN PRN 04/29/20 aerosol inhaler #18 g fluticasone propionate 230 2 puff INHALATION BID #1 device 04/29/20 mcg-salmeterol 21 mcg/actuation HFA inhaler tiotropium bromide 2.5 2 puff INHALATION BID #4 g 04/29/20 mcg/actuation mist for inhalation Ketoconazole [Nizoral Cream] 1 applic TOPICAL DAILY #1 tube 06/09/20 Quinapril HCl [Accupril] 20 mg PO BID 07/12/20 Terbinafine HCl 250 mg PO DAILY 07/12/20 Surgical History: Surgical History (Last Reviewed 01/25/20 @ 10:49 by Jayleen Burr NP, COMMISSIONS MANAGER-C) History of left heart catheterization Onset Date: 11/09/19 Z98.890 History of left mastectomy Z90.12 History of lumpectomy of right breast Z98.890 History of tubal ligation Z98.51 polyp removal uterus Surgical History: noncontributory, mastectomy, - - The patient has previously undergone a left mastectomy, right breast lumpectomy, and resection of a left pulmonary nodule. She also has undergone tubal ligation. She is a Ab0. 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 Denies: Chills HEENT: Reports: Difficulty Hearing. Denies: Head Aches, Sinus Congestion, Sinus Drainage Cardiovascular: Reports: Edema. Denies: Chest Pain, Chest Pressure, Chest Tightness, Palpitations Respiratory: Reports: Cough, Shortness of Breath, Shortness of breath at rest, Shortness of breath upon exertion, -. Denies: Hemoptysis, Pleuritic Pain Gastrointestinal: Reports: Constipation, - - Abdominal distention. Denies: Abdominal Pain, Hematemesis, Hematochezia, Nausea, Melena, Vomiting Genitourinary: Denies: Dysuria, Frequency Musculoskeletal: Reports: Joint Pain. Denies: Joint Tenderness Skin: Denies: Rash, Wounds Neurological: Reports: Balance problems, Incoordination. Denies: Focal weakness, Numbness, Tingling Psychiatric: Denies: Anxiety, Depression, Homicidal Ideations, Suicidal Ideations Hematologic/ Lymphatic: Denies: Easy Bruising, Easy Bleeding VTE Information - Inpt Only VTE Present on Admission: No VTE Mechan Device Prophylaxis: SCD's VTE Pharm Prophylaxis ordered?: No Reason prophylaxis not ordered:: Medical Contraindication - Severe anemia Patient Problems: Active and Suspected Problems (Last Reviewed 01/25/20 @ 10:49 by Jayleen Burr COMMISSIONS MANAGER, COMMISSIONS MANAGER-C) Hyponatremia (Acute) Anemia (Acute) Acute on chronic systolic heart failure (Acute) - Physical Exam Vitals/I&O's: Vital Signs Temp Pulse Resp BP Pulse Ox 96.9 F L 75 15 125/93 H 96 07/12/20 09:34 07/12/20 11:20 07/12/20 11:20 07/12/20 11:20 07/12/20 11:20 Oxygen Flow Rate (L/min) 2 Oxygen Delivery Method Nasal Cannula Weight: 212 lb 4.882 oz Body Mass Index (BMI) 36.4 Finger Stick Blood Glucose 103 General: Alert, Oriented x3, Cooperative HEENT: Atraumatic, PERRLA, EOMI, Normocephalic Oral: No Gingival or Mucosal Lesions/ Ulcerations, Dry Mucosa Neck: Supple, No JVD, Negative Carotid Bruits Lungs: Diminished - Air entry diminished in bilateral lung bases, Rales - Bilateral fine rales present, Short of Breath Cardiovascular: Normal S1, Normal S2, No murmurs, Irregular Rate Abdomen: Bowel Sounds Present, Soft, Non Tender, Distended, - - Generalized abdominal swelling along with subcutaneous edema of lower abdominal skin. Extremities: No edema, Capillary Refill Less than 3 Seconds Skin: Ulcer/ Wound - Bilateral lower leg weeping ulcer, covered with Douglas wrap bandage Musculoskeletal: No Tenderness to Palpation of Joints or Extremities, Arthritic Changes Neurological: Cranial nerves II-XII grossly intact, Deep Tendon Reflexes 2+/4 and Symmetrical, Neuro grossly intact Psych/Mental Status: Normal Affect, Appropriate Laboratory Results 07/12/20 09:55: WBC 7.0, RBC 3.32 L, Hgb 7.3 L, Hct 24.7 L, MCV 74.4 L, MCH 22.0 L, MCHC 29.6 L, RDW Std Deviation 46.3 H, RDW Coeff of Malini 17.2 H, Plt Count 338, MPV 9.2, Immature Gran % (Auto) 0.700, Neut % (Auto) 81.2 H, Lymph % (Auto) 8.0 L, [place] % (Auto) 9.7, Eos % (Auto) 0.3, Baso % (Auto) 0.1, Absolute Neuts (auto) 5.7, Absolute Lymphs (auto) 0.56 L, Nucleated RBC % 2.6, Nucleated RBCs/100 WBC , Differential Comment SCANNED, Diff Path Review May foll, Polychromasia 1+, Hypochromasia 3+, Poikilocytosis 2+, Anisocytosis 2+, Microcytosis 1+, Ovalocytes 1+, Stomatocytes 2+ 07/12/20 09:55: PT 24.3 H, INR 2.2, APTT 40.4 H 07/12/20 09:55: Sodium 111 L*, Potassium 5.8 H, Chloride 78 L, Carbon Dioxide 26.0, Anion Gap 7, BUN 6 L, Creatinine 0.46 L, Estim Creat Clear Calc 43.27, Est GFR (MDRD) Af Amer 172, Est GFR (MDRD) Non-Af 142, BUN/Creatinine Ratio 13.1, Glucose 81, Calcium 8.6, Total Bilirubin 0.90, AST 21, ALT 18, Alkaline Phosphatase 169 H, Troponin I < 0.015, Total Protein 6.5, Albumin 3.3, Globulin 3.2, Albumin/Globulin Ratio 1.0 07/12/20 09:55: Lactic Acid 1.5 07/12/20 09:55: B-Natriuretic Peptide 612.9 H Current Medications Sodium Chloride (Sodium Chloride 3%) 500 mls @ 100 mls/hr IV .Q5H NIKKI Stop: 07/12/20 12:24 Assessment/Plan All Active Problems (Last Reviewed 01/25/20 @ 10:49 by Jayleen Burr COMMISSIONS MANAGER, COMMISSIONS MANAGER-C) Hyponatremia (Acute) COPD exacerbation (Acute) Anemia (Acute) Acute on chronic systolic heart failure (Acute) Thrush, oral (Resolved) The patient is a 74 year old F WITH multiple comorbidities as listed above including chronic hypoxic respiratory failure on 2 L of oxygen on exertion and CHF, COPD came to ER with progressive worsening of shortness of breath for 3 weeks along with productive cough and lab and chest x-ray findings consistent with CHF and COPD exacerbation. 1. Acute respiratory insufficiency with chronic hypoxic respiratory failure secondary to mainly CHF exacerbation but mild COPD exacerbation: The patient is being admitted in PCU. Patient was given Lasix 80 mg IV and then started on Lasix drip. CHF core measures with fluid restriction 1500 mL, daily weight measurement, strict intake and output, beta-donovan. 2. Acute on chronic hyponatremia most likely hypotonic hypervolemic from CHF exacerbation: Sodium is 111 and last time it was 114. She was given 100 mL of 3% sodium chloride in ER. Repeat sodium after 4 hours until sodium is 120. Nephrology consult. Started on sodium tablets, 2 g 3 times daily along with Lasix. 3. Acute on chronic systolic heart failure with anasarca: Started on Lasix drip after 80 mg IV Lasix bolus. Strict input and output. Previous 2D echo in October 2019 shows EF 50% with stage III diastolic dysfunction and both atria enlarged. RVSP 26 mmHg. Chest x-ray shows bilateral small pleural effusion. During previous admission, she had large pleural effusion for which thoracocentesis was done and was transudate. Patient dry weight is about 150 pound and currently she weighs 212 pounds. Interpretation Summary Normal LV size. Mild concentric left ventricular hypertrophy. Left ventricular systolic function is lower limits of normal. The estimated ejection fraction is 50 %. The left atrium is moderately enlarged. The right atrium is moderately enlarged. Stage 3 diastolic dysfunction. Pulmonary artery systolic pressure is 26 mmHg. Compared to the previous the pulmonary pressures are better There is moderate to severe mitral annular calcification. Small pericardial effusion. 4. Mild COPD exacerbation: DuoNeb every 4 hourly. On IV Solu-Medrol 40 mg every 8 hourly. Incentive spirometry, PEP and chest physiotherapy. 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 Patient did not follow-up in pulmonary clinic after discharge in April 2020. 5. Non-small cell carcinoma of lung, left upper lobe: She has CT-guided biopsy of left upper lobe mass reported non-small cell carcinoma favor adenocarcinoma consistent with lung primary. Patient completed radiotherapy about a year ago. Follows Dr. Cazares. 6. Chronic A. fib on Xarelto: Hold Xarelto as hemoglobin is 7.3. Denies any obvious external bleeding. 7. Hypertension: On lisinopril 10 mg daily. 8. Continued smoking cigarette/nicotine dependence: Counseled on cessation. Nicotine patch 9. DVT prophylaxis: Bilateral SCDs. Pharmacological prophylaxis contraindicated. Living will/advanced directive/end of life care: Patient does not have living will or advanced directive. After discussion of procedures involved with full code, DNR CC arrest and DNR CC, the patient opted for full code Patient does want artificial life support including intubation, tube feed, ventilator and/chest compression, central venous catheter, vasopressor and DC shock if needed Total time spent in [id number] encounter in discussion of advanced directive 16 minutes. Clinical Impression(s) from Imaging Studies Chest X-Ray 07/12/20 09:44 IMPRESSION: Persistent left parahilar mass. Blunting of both costophrenic angles in keeping with small bilateral effusions. Inpatient E&M: 41527 Init Hosp L3 Procedures: 59243 Advncd Care Plan 30 Min
[2020-07-12] MEDS: Sodium Chloride 3% 500 ML 100 ML IV (12:38)
--- NOTE | 2020-07-12 13:32 | NURSING ---
PCU BHARGAVI HYPONATREMIA, CHF
[2020-07-12 14:27] LABS: Magnesium 1.7 mg/dL (1.6-2.6)
[2020-07-12] MEDS: 0.9% Saline Lock 10 ML Syringe IV (15:01)
[2020-07-12 15:31] LABS: Anion Gap 6 (5-15); BUN 6 mg/dL (7-18); BUN/Creat Ratio 13.2 RATIO (10-20); Calcium,Total 8.5 mg/dL (8.5-10.1); Chloride 77 mmol/L (98-107); Creatinine, Serum 0.45 mg/dL (0.55-1.02); EST Glomerular Filtration Rate 144 mL/min (>60); Est Glom Filt Rate - Afr Amer 174 mL/min (>60); Estimated Creatinine Clearance 43.27 ml/min; Glucose 81 mg/dL (74-106); Potassium 4.3 mmol/L (3.5-5.1); Sodium Level 112 mmol/L (136-145)
[2020-07-12] MEDS: Ipratropium/Albuterol Sulfate 3 ML AMPUL.NEB INHALATION ×2 (15:35→19:33)
[2020-07-12] MEDS: Nystatin Powder 15gm Bottle 1 APPLIC TOPICAL ×2 (16:49→20:56)
[2020-07-12] MEDS: NYSTATIN 500,000 UNIT/5 ML UDC 500000 UNIT PO ×2 (18:58→20:57)
[2020-07-12] MEDS: guaiFENesin 1,200 MG Tablet 1200 MG PO (20:56)
[2020-07-12] MEDS: Carvedilol 25 MG Tablet PO (20:56)
[2020-07-12] MEDS: Menthol/Lanolin/Calamine/Znox 113 GM Tube 1 APPLIC TOPICAL (20:56)
[2020-07-12 21:41] LABS: Anion Gap 8 (5-15); BUN 7 mg/dL (7-18); BUN/Creat Ratio 15.5 RATIO (10-20); Calcium,Total 8.4 mg/dL (8.5-10.1); Chloride 76 mmol/L (98-107); Creatinine, Serum 0.45 mg/dL (0.55-1.02); EST Glomerular Filtration Rate 144 mL/min (>60); Est Glom Filt Rate - Afr Amer 174 mL/min (>60); Estimated Creatinine Clearance 43.27 ml/min; Glucose 116 mg/dL (74-106); Sodium Level 111 mmol/L (136-145)
[2020-07-13] VITALS (11 sets, daily range): BP systolic 99–140; BP diastolic 40–64; PULSE 62–101; RESP 16–20; TEMP 36.6–36.8; O2SAT 99–100
[2020-07-13] MEDS: 0.9% Saline Lock 10 ML Syringe IV (05:06)
[2020-07-13] MEDS: Nystatin Powder 15gm Bottle 1 APPLIC TOPICAL ×3 (05:06→21:25)
[2020-07-13 06:02] LABS: Absolute Lymphocyte Count 0.27 X10^3/uL (0.83-4.51); Absolute Neutrophil Count 3.6 X10^3/uL (2.0-7.7); Differential Indicated SCAN CRITERIA MET; Hematocrit 24.7 % (37-47); Hemoglobin 7.6 g/dL (12.0-15.0); Lymphocyte # 0.27 X10^3/ul (4.0); Lymphocyte % 6.9 % (19-41); Mean Corp Hgb Conc 30.8 g/dL (32-36); Mean Corpuscular Hgb 22.2 pg (27.0-32.0); Mean Corpuscular Volume 72.2 fL (81-99); Mean Platelet Vol. 8.7 fl (6.2-12.0); Monocyte# 0.09 X10^3/uL; Monocyte% 2.3 % (0-10); Neutrophil # 3.56 X10^3/uL (2.7-7.7); Neutrophil % 90.3 % (47-70); POSITIVE DIFFERENTIAL YES; POSITIVE MORPHOLOGY YES; Platelet Count 271 K/mm3 (150-450); RBC Distribution Width CV 17.1 % (11.6-14.6); RBC Distribution Width SD 44.6 fl (35.1-43.9); Red Blood Count 3.42 M/mm3 (4.2-5.4); White Blood Count 3.9 K/mm3 (4.4-11.0)
[2020-07-13 06:25] LABS: Differential Comment SCANNED; Reactive Lymphocyte RARE
[2020-07-13 06:41] LABS: Anion Gap 8 (5-15); BUN 5 mg/dL (7-18); BUN/Creat Ratio 10.9 RATIO (10-20); Calcium,Total 8.2 mg/dL (8.5-10.1); Chloride 75 mmol/L (98-107); Cholesterol 104 mg/dL (200); Creatinine, Serum 0.46 mg/dL (0.55-1.02); EST Glomerular Filtration Rate 141 mL/min (>60); Est Glom Filt Rate - Afr Amer 171 mL/min (>60); Estimated Creatinine Clearance 43.27 ml/min; Glucose 131 mg/dL (74-106); High Density Lipoprotein 41 mg/dL; Phosphorus 3.5 mg/dL (2.5-4.9); Potassium 3.1 mmol/L (3.5-5.1); Sodium Level 115 mmol/L (136-145); Triglycerides 38 mg/dL; Very Low Density Lipoprotein 8 mg/dL (5-40)
--- NOTE | 2020-07-13 09:37 | CASEMGMT ---
Assessment- SW met with patient, introduced self and role at [facility]. SW completed assessment with patient while she was up in the chair. SW also confirmed demographics including her contacts listed. Living situation- Patient lives with her in a 1 story home with 4 entry steps. PCP: Dr Sanders Specialists: Dr Jovel-Cardiology, Dr Campos-Pulmonary, and Dr Cazares-Oncology Pharmacy: [facility] DME: shower chair, wheeled walker, wheelchair, and 2L of O2 24/7 from [employer] ADL's/IADL's: Patient normally washes up at the sink, she uses her wheelchair to get around, her makes meals and does the housekeeping, she dresses her self, toilets herself, she does the bills, and manages her own medications. She does not drive, but her does. Past SNF/rehab: She has had not past SNF stays Past HH: No past home health. She was referred to [facility] HH last visit in April, but then declined when they called her. She has a new PCP which she has not seen yet and her old PCP will not sign for home health since she no longer wants to see him. LW: None POA: None Plan: When SW asked if she plans to go somewhere for rehab at discharge she said no and she plans on going home with maybe home health. That is when SW asked her if she has seen her new PCP and she has not. REUBEN discussed going somewhere for rehab and she agreed to let SW give her a list of local facilities and to put her name on the TCU list. REUBEN called [facility] in TCU and left her a voice mail with referral. Myrtle ERICKSON MSW
[2020-07-13] MEDS: Menthol/Lanolin/Calamine/Znox 113 GM Tube 1 APPLIC TOPICAL (10:07)
[2020-07-13] MEDS: Carvedilol 25 MG Tablet PO ×2 (10:07→21:26)
[2020-07-13] MEDS: Psyllium 1 PACKET PO (10:07)
[2020-07-13] MEDS: NYSTATIN 500,000 UNIT/5 ML UDC 500000 UNIT PO ×3 (10:08→21:27)
[2020-07-13] MEDS: guaiFENesin 1,200 MG Tablet 1200 MG PO ×2 (10:08→21:27)
[2020-07-13] MEDS: Lisinopril 10 MG Tablet PO (10:08)
--- NOTE | 2020-07-13 10:20 | PCM.PN.HOSP ---
Patient Problems: Active and Suspected Problems (Last Reviewed 01/25/20 @ 10:49 by Jayleen Burr SECURITY TEST ENGINEER, SECURITY TEST ENGINEER-C) Hyponatremia (Acute) Anemia (Acute) Acute on chronic systolic heart failure (Acute) Reason for Visit: Patient does not have symptoms of dizziness, confusion, seizure or involuntary movement. Blood pressure and heart rate is normal range. Interdisciplinary rounds was done. Physical exam General: Alert, Oriented x3, Cooperative HEENT: Atraumatic, PERRLA, EOMI, Normocephalic Oral: No Gingival or Mucosal Lesions/ Ulcerations Neck: Supple, No JVD, Negative Carotid Bruits Lungs: Air entry diminished in bilateral lung bases. Bilateral fine rales present. Shortness of breath is resolved. No crepitation/rhonchi Cardiovascular: Irregular rate and rhythm. Normal S1, Normal S2, No murmurs. nurse monitoring shows A. fib Abdomen: Bowel Sounds Present, Soft, Non Tender, Non-Distended. Generalized abdominal swelling with subcutaneous edema possible ascites : No renal angle tenderness. No suprapubic tenderness. Extremities: Pitting edema of thigh bilateral lower extremities. Capillary Refill Less than 3 Seconds Skin: No rashes, No breakdown Musculoskeletal: No Tenderness to Palpation of Joints or Extremities. Arthritic changes of bilateral knees and knee joints Neurological: Cranial nerves II-XII grossly intact, Deep Tendon Reflexes 2+/4 and Symmetrical, Neuro grossly intact Psych/Mental Status: Normal Affect, Appropriate. Vitals/I&O's: Vital Signs Temp Pulse Resp BP Pulse Ox 98.3 F 80 16 118/64 99 07/13/20 08:38 07/13/20 08:38 07/13/20 08:38 07/13/20 08:38 07/13/20 08:38 Oxygen Flow Rate (L/min) 2 Oxygen Delivery Method Room Air Weight: 192 lb 7.417 oz Body Mass Index (BMI) 35.4 Finger Stick Blood Glucose 103 Intake and Output for Last 24 Hours 07/11/20 07/12/20 07/13/20 23:59 23:59 23:59 Intake Total 1070 / 1070 257.82 / 257.82 Output Total 5900 / 5900 5000 / 5000 Balance -4830 / -4830 -4742.18 / -4742.18 Laboratory Results 07/12/20 09:55: WBC 7.0, RBC 3.32 L, Hgb 7.3 L, Hct 24.7 L, MCV 74.4 L, MCH 22.0 L, MCHC 29.6 L, RDW Std Deviation 46.3 H, RDW Coeff of Malini 17.2 H, Plt Count 338, MPV 9.2, Immature Gran % (Auto) 0.700, Neut % (Auto) 81.2 H, Lymph % (Auto) 8.0 L, [place] % (Auto) 9.7, Eos % (Auto) 0.3, Baso % (Auto) 0.1, Absolute Neuts (auto) 5.7, Absolute Lymphs (auto) 0.56 L, Nucleated RBC % 2.6, Nucleated RBCs/100 WBC , Differential Comment SCANNED, Diff Path Review May foll, Polychromasia 1+, Hypochromasia 3+, Poikilocytosis 2+, Anisocytosis 2+, Microcytosis 1+, Ovalocytes 1+, Stomatocytes 2+ 07/12/20 09:55: APTT 40.4 H 07/12/20 09:55: Sodium 111 L*, Potassium 5.8 H, Chloride 78 L, Carbon Dioxide 26.0, Anion Gap 7, BUN 6 L, Creatinine 0.46 L, Estim Creat Clear Calc 43.27, Est GFR (MDRD) Af Amer 172, Est GFR (MDRD) Non-Af 142, BUN/Creatinine Ratio 13.1, Glucose 81, Calcium 8.6, Total Bilirubin 0.90, AST 21, ALT 18, Alkaline Phosphatase 169 H, Troponin I < 0.015, Total Protein 6.5, Albumin 3.3, Globulin 3.2, Albumin/Globulin Ratio 1.0 07/12/20 09:55: Lactic Acid 1.5 07/12/20 09:55: B-Natriuretic Peptide 612.9 H 07/12/20 09:55: Magnesium 1.7 07/12/20 14:46: Troponin I < 0.015 07/12/20 14:46: Sodium 112 L*, Potassium 4.3, Chloride 77 L, Carbon Dioxide 29.0, Anion Gap 6, BUN 6 L, Creatinine 0.45 L, Estim Creat Clear Calc 43.27, Est GFR (MDRD) Af Amer 174, Est GFR (MDRD) Non-Af 144, BUN/Creatinine Ratio 13.2, Glucose 81, Calcium 8.5 07/12/20 17:09: Troponin I 0.017 07/12/20 21:06: Sodium 111 L*, Potassium 4.0, Chloride 76 L, Carbon Dioxide 27.0, Anion Gap 8, BUN 7, Creatinine 0.45 L, Estim Creat Clear Calc 43.27, Est GFR (MDRD) Af Amer 174, Est GFR (MDRD) Non-Af 144, BUN/Creatinine Ratio 15.5, Glucose 116 H, Calcium 8.4 L 07/13/20 05:50: WBC 3.9 L, RBC 3.42 L, Hgb 7.6 L, Hct 24.7 L, MCV 72.2 L, MCH 22.2 L, MCHC 30.8 L, RDW Std Deviation 44.6 H, RDW Coeff of Malini 17.1 H, Plt Count 271, MPV 8.7, Immature Gran % (Auto) 0.500, Neut % (Auto) 90.3 H, Lymph % (Auto) 6.9 L, [place] % (Auto) 2.3, Eos % (Auto) 0.0, Baso % (Auto) 0.0, Absolute Neuts (auto) 3.6, Absolute Lymphs (auto) 0.27 L, Nucleated RBC % 1.0, Differential Comment SCANNED, Diff Path Review February foll, Reactive Lymphocytes RARE 07/13/20 05:50: Sodium 115 L*, Potassium 3.1 L, Chloride 75 L, Carbon Dioxide 32.0, Anion Gap 8, BUN 5 L, Creatinine 0.46 L, Estim Creat Clear Calc 43.27, Est GFR (MDRD) Af Amer 171, Est GFR (MDRD) Non-Af 141, BUN/Creatinine Ratio 10.9, Glucose 131 H, Calcium 8.2 L, Phosphorus 3.5, Triglycerides 38, Cholesterol 104, LDL Cholesterol 55, VLDL Cholesterol 8, HDL Cholesterol 41 Current Medications Acetaminophen (Tylenol) 650 mg PO Q6H PRN PRN PRN Reason: Pain Score 1-10/Temp > 100.7 F Al Hydroxide/Mg Hydroxide (Mylanta Ii) 30 ml PO Q6H PRN PRN PRN Reason: Gastric Burning Albuterol Sulfate (Ventolin Aerosols) 2.5 mg INHALATION Q2H PRN PRN PRN Reason: SOB/Wheezing Albuterol/Ipratropium (Duoneb) 3 ml INHALATION Q4H.RT [facility] Last Admin: 07/13/20 06:52 Dose: Not Given Documented by: Calamine/Phenol (Calmoseptine Ointment) 1 applic TOPICAL BID [facility]; Protocol Last Admin: 07/13/20 10:07 Dose: 1 applicatio Documented by: Carvedilol (Coreg) 25 mg PO BID [facility] Last Admin: 07/13/20 10:07 Dose: 25 mg Documented by: Guaifenesin (Mucinex) 1,200 mg PO BID [facility] Last Admin: 07/13/20 10:08 Dose: 1,200 mg Documented by: Furosemide 500 mg/ (Miscellaneous Information) 50 mls @ 1 mls/hr CONT INF .Q50H [facility] Last Infusion: 07/13/20 08:58 Dose: 10 mg/hr, 1 mls/hr Documented by: Lisinopril (Zestril) 10 mg PO DAILY [facility] Last Admin: 07/13/20 10:08 Dose: 10 mg Documented by: Melatonin (Melatonin) 3 mg PO QHS PRN PRN PRN Reason: INSOMNIA Methylprednisolone (Solu-Medrol) 40 mg IV Q8 [facility] Last Admin: 07/13/20 05:06 Dose: 40 mg Documented by: Morphine Sulfate () 2 mg IV Q3H PRN PRN PRN Reason: Pain Score 6-10/10 Nitroglycerin (Nitrostat) 0.4 mg SUBLINGUAL Q5M PRN PRN Reason: CARDIAC/CHEST PAIN Nutritional Formula (Lactose Free) (Ensure Enlive) 120 ml PO 4X/DAY [facility] Last Admin: 07/13/20 08:47 Dose: 120 ml Documented by: Nystatin (Mycostatin Powder) 1 applic TOPICAL TID [facility]; Protocol Last Admin: 07/13/20 05:06 Dose: 1 applicatio Documented by: Nystatin (Nystatin) 500,000 unit PO 4X/DAY [facility] Last Admin: 07/13/20 10:08 Dose: 500,000 unit Documented by: Ondansetron HCl (Zofran) 4 mg IV Q8H PRN PRN PRN Reason: NAUSEA/VOMITING Oxycodone HCl (Oxyir) 5 mg PO Q4H PRN PRN PRN Reason: Pain Score 4-5/10 Potassium Chloride (K-Dur) 40 meq PO BID [facility] Stop: 07/16/20 07:41 Last Admin: 07/13/20 10:02 Dose: Not Given Documented by: Prochlorperazine Edisylate (Compazine Iv) 5 mg IV Q4H PRN PRN PRN Reason: Breakthrough Nausea/Vomiting Psyllium Hydrophilic Mucilloid (Metamucil) 1 packet PO DAILY NIKKI Last Admin: 07/13/20 10:07 Dose: 1 packet Documented by: Senna/Docusate Sodium (Senokot-S, [place]-Colace) 2 tablet PO BID PRN PRN PRN Reason: Constipation Sodium Chloride () 10 - 40 ml IV UD PRN PRN Reason: SALINE FLUSH Last Admin: 07/13/20 05:06 Dose: 10 ml Documented by: STROKE Vital Signs/Narrative: Vital Signs Temp Pulse Resp BP Pulse Ox 07/13/20 08:38 98.3 F 80 16 118/64 99 07/13/20 07:38 74 07/13/20 06:52 99 Medical Necessity - Tobacco Use Smoking Status: Current every day smoker Assessment/Plan All Active Problems (Last Reviewed 01/25/20 @ 10:49 by Jayleen Burr SECURITY TEST ENGINEER, SECURITY TEST ENGINEER-C) Hyponatremia (Acute) COPD exacerbation (Acute) Anemia (Acute) Acute on chronic systolic heart failure (Acute) Thrush, oral (Resolved) The patient is a 74 year old F WITH multiple comorbidities as listed above including chronic hypoxic respiratory failure on 2 L of oxygen on exertion and CHF, COPD came to ER with progressive worsening of shortness of breath for 3 weeks along with productive cough and lab and chest x-ray findings consistent with CHF and COPD exacerbation. 1. Acute respiratory insufficiency with chronic hypoxic respiratory failure secondary to mainly CHF exacerbation but mild COPD exacerbation: The patient is being admitted in PCU. Patient was given Lasix 80 mg IV and then started on Lasix drip. CHF core measures with fluid restriction 1500 mL, daily weight measurement, strict intake and output, beta-donovan. Shortness of breath is improved. 2. Acute on chronic hyponatremia most likely hypotonic hypervolemic from CHF exacerbation: Sodium is 111 and last time it was 114. She was given 100 mL of 3% sodium chloride in ER. Repeat sodium after 4 hours until sodium is 120. Nephrology consult. Started on sodium tablets, 2 g 3 times daily along with Lasix. 07/13: Seen by gut puller and discussed with him. Started on IV conivaptan drip at 4.16 mL/h for 24 hours for free water diuresis and clearance. Lasix drip is discontinued. Monitor intake and output. Gradual improvement of sodium. 3. Acute on chronic systolic heart failure with anasarca: Strict input and output. Previous 2D echo in October 2019 shows EF 50% with stage III diastolic dysfunction and both atria enlarged. RVSP 26 mmHg. Chest x-ray shows bilateral small pleural effusion. During previous admission, she had large pleural effusion for which thoracocentesis was done and was transudate. Patient dry weight is about 150 pound and currently she weighs 212 pounds. Interpretation Summary Normal LV size. Mild concentric left ventricular hypertrophy. Left ventricular systolic function is lower limits of normal. The estimated ejection fraction is 50 %. The left atrium is moderately enlarged. The right atrium is moderately enlarged. Stage 3 diastolic dysfunction. Pulmonary artery systolic pressure is 26 mmHg. Compared to the previous the pulmonary pressures are better There is moderate to severe mitral annular calcification. Small pericardial effusion. 07/13: I discussed with Dr. luo on 07/12. We agreed there is no indication to repeat echo as it was recently done and patient present condition is mainly secondary to noncompliance. 4. Mild COPD exacerbation: DuoNeb every 4 hourly. On IV Solu-Medrol 40 mg every 8 hourly. Incentive spirometry, PEP and chest physiotherapy. 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 Patient did not follow-up in pulmonary clinic after discharge in April 2020. 07/13: Solu-Medrol discontinued and started on prednisone 40 mg daily from tomorrow a.m. 5 days of a steroid burst therapy. 5. Non-small cell carcinoma of lung, left upper lobe: She has CT-guided biopsy of left upper lobe mass reported non-small cell carcinoma favor adenocarcinoma consistent with lung primary. Patient completed radiotherapy about a year ago. Follows Dr. Cazares. 6. Chronic A. fib on Xarelto: Hold Xarelto as hemoglobin is 7.3. Denies any obvious external bleeding. 7. Hypertension: On lisinopril 10 mg daily. 8. Continued smoking cigarette/nicotine dependence: Counseled on cessation. Nicotine patch 9. DVT prophylaxis: Bilateral SCDs. Pharmacological prophylaxis contraindicated. Living will/advanced directive/end of life care: Full code. Total time of the visit including total time spent in counseling or coordination of care, (more than 50% of the total time, spent in obtaining medical information from nurses and other ancillary care providers), interdisciplinary rounds and discussion with datastage consultant, review of labs and imaging is 30 minutes. Clinical Impression(s) from Imaging Studies Chest X-Ray 07/12/20 09:44 IMPRESSION: Persistent left parahilar mass. Blunting of both costophrenic angles in keeping with small bilateral effusions. Inpatient E&M: 29309 Subs Hosp L3
--- NOTE | 2020-07-13 10:48 | PCM.CONS.R ---
Consultation - Renal PCP/ Referring MD: Requesting physician: [] Primary care physician: Dr. Amber Sanders MD - History of Present Illness History of Present Illness: The patient is a 74 year old F PMH of lung CA, breast CA, hyponatremia, CHF, HTN, Afib, and COPD. Patient presented with significant weight gain, SOB, increase abdominal girth and legs edema. Na was found to be 111.K 5.8 Patient was admitted to [facility] and started on lasix drip at 1 ml/hour. Patient made 5 L of UOP. breathing is better and weight is decreasing. Patient's usual weight i~ 150 pounds and patient presented with 210 pounds Patient run out of lasix and KCl tab 2 weeks ago. ROS: 12 systems review is negative except SOB, weight gain [] - Allergies Allergies: Allergies albuterol sulfate [From Combivent] Allergy (Verified 07/12/20 09:35) Swelling ipratropium bromide [From Combivent] Allergy (Verified 07/12/20 09:35) Swelling metoprolol Allergy (Verified 07/12/20 09:35) Laryngospasms Sulfa (Sulfonamide Antibiotics) Allergy (Verified 07/12/20 09:35) Rash beclomethasone [From Qvar] Adverse Reaction (Verified 07/12/20 09:35) COUGHING benzalkonium chloride [From Merthiolate (benzalkonium)] Adverse Reaction (Verified 07/12/20 09:35) Rash codeine Adverse Reaction (Verified 07/12/20 09:35) Chest tightness chest hurts doxycycline Adverse Reaction (Verified 07/12/20 09:35) Abd cramps/diarrhea formoterol fumarate [From Dulera] Adverse Reaction (Verified 07/12/20 09:35) PT UNSURE OF REACTION hydrochlorothiazide Adverse Reaction (Verified 07/12/20 09:35) PT UNSURE OF REACTION ibuprofen [From Advil] Adverse Reaction (Verified 07/12/20 09:35) PT UNSURE OF REACTION iodine Adverse Reaction (Verified 07/12/20 09:35) Itching merbromin Adverse Reaction (Verified 07/12/20 09:35) PT UNSURE OF REACTION mometasone furoate [From Dulera] Adverse Reaction (Verified 07/12/20 09:35) PT UNSURE OF REACTION oseltamivir [From Tamiflu] Adverse Reaction (Verified 07/12/20 09:35) uterine pain prednisone Adverse Reaction (Verified 07/12/20 09:35) Abd cramps/diarrhea PLASTIC TAPE Allergy (Uncoded 07/12/20 09:35) Rash - Current Medications Current Medications: Current Medications Acetaminophen (Tylenol) 650 mg PO Q6H PRN PRN PRN Reason: Pain Score 1-10/Temp > 100.7 F Al Hydroxide/Mg Hydroxide (Mylanta Ii) 30 ml PO Q6H PRN PRN PRN Reason: Gastric Burning Albuterol Sulfate (Ventolin Aerosols) 2.5 mg INHALATION Q2H PRN PRN PRN Reason: SOB/Wheezing Albuterol/Ipratropium (Duoneb) 3 ml INHALATION Q4H.RT [facility] Last Admin: 07/13/20 06:52 Dose: Not Given Documented by: Calamine/Phenol (Calmoseptine Ointment) 1 applic TOPICAL BID [facility]; Protocol Last Admin: 07/13/20 10:07 Dose: 1 applicatio Documented by: Carvedilol (Coreg) 25 mg PO BID [facility] Last Admin: 07/13/20 10:07 Dose: 25 mg Documented by: Guaifenesin (Mucinex) 1,200 mg PO BID [facility] Last Admin: 07/13/20 10:08 Dose: 1,200 mg Documented by: Conivaptan HCl (Vaprisol 20 Mg/100 Ml Bag) 100 mls @ 4.167 mls/hr IV X1 ONE Stop: 07/14/20 10:59 Lisinopril (Zestril) 10 mg PO DAILY [facility] Last Admin: 07/13/20 10:08 Dose: 10 mg Documented by: Melatonin (Melatonin) 3 mg PO QHS PRN PRN PRN Reason: INSOMNIA Methylprednisolone (Solu-Medrol) 40 mg IV Q8 [facility] Last Admin: 07/13/20 05:06 Dose: 40 mg Documented by: Morphine Sulfate () 2 mg IV Q3H PRN PRN PRN Reason: Pain Score 6-10/10 Nitroglycerin (Nitrostat) 0.4 mg SUBLINGUAL Q5M PRN PRN Reason: CARDIAC/CHEST PAIN Nutritional Formula (Lactose Free) (Ensure Enlive) 120 ml PO 4X/DAY [facility] Last Admin: 07/13/20 08:47 Dose: 120 ml Documented by: Nystatin (Mycostatin Powder) 1 applic TOPICAL TID [facility]; Protocol Last Admin: 07/13/20 05:06 Dose: 1 applicatio Documented by: Nystatin (Nystatin) 500,000 unit PO 4X/DAY [facility] Last Admin: 07/13/20 10:08 Dose: 500,000 unit Documented by: Ondansetron HCl (Zofran) 4 mg IV Q8H PRN PRN PRN Reason: NAUSEA/VOMITING Oxycodone HCl (Oxyir) 5 mg PO Q4H PRN PRN PRN Reason: Pain Score 4-5/10 Potassium Chloride (K-Dur) 40 meq PO BID [facility] Stop: 07/16/20 07:41 Last Admin: 07/13/20 10:02 Dose: Not Given Documented by: Prochlorperazine Edisylate (Compazine Iv) 5 mg IV Q4H PRN PRN PRN Reason: Breakthrough Nausea/Vomiting Psyllium Hydrophilic Mucilloid (Metamucil) 1 packet PO DAILY [facility] Last Admin: 07/13/20 10:07 Dose: 1 packet Documented by: Senna/Docusate Sodium (Senokot-S, Yesenia-Colace) 2 tablet PO BID PRN PRN PRN Reason: Constipation Sodium Chloride () 10 - 40 ml IV UD PRN PRN Reason: SALINE FLUSH Last Admin: 07/13/20 05:06 Dose: 10 ml Documented by: - Past Medical History Past Medical History (Chronic Problems): Chronic Problems (Last Reviewed 01/25/20 @ 10:49 by Jayleen Burr RECORDS MANAGEMENT ASSISTANT, RECORDS MANAGEMENT ASSISTANT-C) Leg edema (Chronic) Non-small cell lung cancer (Chronic) Chronic respiratory failure with hypoxia (Chronic) Tobacco abuse (Chronic) Tobacco abuse counseling (Chronic) Dependent edema (Chronic) Bilateral leg ulcer (Chronic) Non-ischemic cardiomyopathy (Chronic) Paroxysmal atrial fibrillation (Chronic) Acute on chronic systolic (congestive) heart failure (Chronic) Secondary pulmonary arterial hypertension (Chronic) Non-rheumatic tricuspid valve insufficiency (Chronic) Nonrheumatic mitral (valve) insufficiency (Chronic) Essential (primary) hypertension (Chronic) Lung mass (Chronic) History of breast cancer (Chronic) COPD (chronic obstructive pulmonary disease) (Chronic) Nicotine dependence (Chronic) Chronic anticoagulation (Chronic) - Past Surgical History Surgical History: noncontributory, mastectomy, - - The patient has previously undergone a left mastectomy, right breast lumpectomy, and resection of a left pulmonary nodule. She also has undergone tubal ligation. She is a Ab0. - Social History Smoking Status: Current every day smoker Drugs: None - Family History Maternal Family History: Family History (Last Reviewed 01/25/20 @ 10:49 by Jayleen Burr RECORDS MANAGEMENT ASSISTANT, RECORDS MANAGEMENT ASSISTANT-C) Father Emphysema of lung Sister Cancer History Items: No pertinent history Paternal Family History: Family History (Last Reviewed 01/25/20 @ 10:49 by Jayleen Burr NP, RECORDS MANAGEMENT ASSISTANT-C) Father Emphysema of lung Sister Cancer History Items: No pertinent history Patient Problems: Active and Suspected Problems (Last Reviewed 01/25/20 @ 10:49 by Jayleen Burr NP, RECORDS MANAGEMENT ASSISTANT-C) Hyponatremia (Acute) Anemia (Acute) Acute on chronic systolic heart failure (Acute) - Physical Exam Vitals/I&O's: Vital Signs Temp Pulse Resp BP Pulse Ox 98.3 F 80 16 118/64 99 07/13/20 08:38 07/13/20 08:38 07/13/20 08:38 07/13/20 08:38 07/13/20 08:38 Oxygen Flow Rate (L/min) 2 Oxygen Delivery Method Room Air Weight: 87.3 kg Body Mass Index (BMI) 35.4 Finger Stick Blood Glucose 103 Intake and Output for Last 24 Hours 07/11/20 07/12/20 07/13/20 23:59 23:59 23:59 Intake Total 1070 / 1070 257.82 / 257.82 Output Total 5900 / 5900 5000 / 5000 Balance -4830 / -4830 -4742.18 / -4742.18 General: Alert, Oriented x3 HEENT: Atraumatic Oral: Moist Mucosa Neck: Supple, No JVD Lungs: Diminished, - - B.L lungs bases crackles Cardiovascular: Regular rate, Regular Rhythm, Normal S1, Normal S2 Abdomen: Bowel Sounds Present, Soft, Non Tender Extremities: No clubbing, No cyanosis, Edema - +2 edema of LE Skin: No rashes Lymphatic: No Cervical, Supraclavicular, or Inguinal Adenopathy Neurological: Cranial nerves II-XII grossly intact, Neuro grossly intact Psych/Mental Status: Appropriate Laboratory Results 07/12/20 09:55: Nucleated RBCs/100 WBC , Differential Comment SCANNED, Diff Path Review May foll, Polychromasia 1+, Hypochromasia 3+, Poikilocytosis 2+, Anisocytosis 2+, Microcytosis 1+, Ovalocytes 1+, Stomatocytes 2+ 07/12/20 09:55: Magnesium 1.7 07/12/20 14:46: Troponin I < 0.015 07/12/20 14:46: Sodium 112 L*, Potassium 4.3, Chloride 77 L, Carbon Dioxide 29.0, Anion Gap 6, BUN 6 L, Creatinine 0.45 L, Estim Creat Clear Calc 43.27, Est GFR (MDRD) Af Amer 174, Est GFR (MDRD) Non-Af 144, BUN/Creatinine Ratio 13.2, Glucose 81, Calcium 8.5 07/12/20 17:09: Troponin I 0.017 07/12/20 21:06: Sodium 111 L*, Potassium 4.0, Chloride 76 L, Carbon Dioxide 27.0, Anion Gap 8, BUN 7, Creatinine 0.45 L, Estim Creat Clear Calc 43.27, Est GFR (MDRD) Af Amer 174, Est GFR (MDRD) Non-Af 144, BUN/Creatinine Ratio 15.5, Glucose 116 H, Calcium 8.4 L 07/13/20 05:50: WBC 3.9 L, RBC 3.42 L, Hgb 7.6 L, Hct 24.7 L, MCV 72.2 L, MCH 22.2 L, MCHC 30.8 L, RDW Std Deviation 44.6 H, RDW Coeff of Malini 17.1 H, Plt Count 271, MPV 8.7, Immature Gran % (Auto) 0.500, Neut % (Auto) 90.3 H, Lymph % (Auto) 6.9 L, [place] % (Auto) 2.3, Eos % (Auto) 0.0, Baso % (Auto) 0.0, Absolute Neuts (auto) 3.6, Absolute Lymphs (auto) 0.27 L, Nucleated RBC % 1.0, Differential Comment SCANNED, Diff Path Review May foll, Reactive Lymphocytes RARE 07/13/20 05:50: Sodium 115 L*, Potassium 3.1 L, Chloride 75 L, Carbon Dioxide 32.0, Anion Gap 8, BUN 5 L, Creatinine 0.46 L, Estim Creat Clear Calc 43.27, Est GFR (MDRD) Af Amer 171, Est GFR (MDRD) Non-Af 141, BUN/Creatinine Ratio 10.9, Glucose 131 H, Calcium 8.2 L, Phosphorus 3.5, Triglycerides 38, Cholesterol 104, LDL Cholesterol 55, VLDL Cholesterol 8, HDL Cholesterol 41 Current Medications Acetaminophen (Tylenol) 650 mg PO Q6H PRN PRN PRN Reason: Pain Score 1-10/Temp > 100.7 F Al Hydroxide/Mg Hydroxide (Mylanta Ii) 30 ml PO Q6H PRN PRN PRN Reason: Gastric Burning Albuterol Sulfate (Ventolin Aerosols) 2.5 mg INHALATION Q2H PRN PRN PRN Reason: SOB/Wheezing Albuterol/Ipratropium (Duoneb) 3 ml INHALATION Q4H.RT [facility] Last Admin: 07/13/20 06:52 Dose: Not Given Documented by: Calamine/Phenol (Calmoseptine Ointment) 1 applic TOPICAL BID [facility]; Protocol Last Admin: 07/13/20 10:07 Dose: 1 applicatio Documented by: Carvedilol (Coreg) 25 mg PO BID [facility] Last Admin: 07/13/20 10:07 Dose: 25 mg Documented by: Guaifenesin (Mucinex) 1,200 mg PO BID [facility] Last Admin: 07/13/20 10:08 Dose: 1,200 mg Documented by: Conivaptan HCl (Vaprisol 20 Mg/100 Ml Bag) 100 mls @ 4.167 mls/hr IV X1 ONE Stop: 07/14/20 10:59 Lisinopril (Zestril) 10 mg PO DAILY [facility] Last Admin: 07/13/20 10:08 Dose: 10 mg Documented by: Melatonin (Melatonin) 3 mg PO QHS PRN PRN PRN Reason: INSOMNIA Methylprednisolone (Solu-Medrol) 40 mg IV Q8 [facility] Last Admin: 07/13/20 05:06 Dose: 40 mg Documented by: Morphine Sulfate () 2 mg IV Q3H PRN PRN PRN Reason: Pain Score 6-10/10 Nitroglycerin (Nitrostat) 0.4 mg SUBLINGUAL Q5M PRN PRN Reason: CARDIAC/CHEST PAIN Nutritional Formula (Lactose Free) (Ensure Enlive) 120 ml PO 4X/DAY [facility] Last Admin: 07/13/20 08:47 Dose: 120 ml Documented by: Nystatin (Mycostatin Powder) 1 applic TOPICAL TID [facility]; Protocol Last Admin: 07/13/20 05:06 Dose: 1 applicatio Documented by: Nystatin (Nystatin) 500,000 unit PO 4X/DAY [facility] Last Admin: 07/13/20 10:08 Dose: 500,000 unit Documented by: Ondansetron HCl (Zofran) 4 mg IV Q8H PRN PRN PRN Reason: NAUSEA/VOMITING Oxycodone HCl (Oxyir) 5 mg PO Q4H PRN PRN PRN Reason: Pain Score 4-5/10 Potassium Chloride (K-Dur) 40 meq PO BID [facility] Stop: 07/16/20 07:41 Last Admin: 07/13/20 10:02 Dose: Not Given Documented by: Prochlorperazine Edisylate (Compazine Iv) 5 mg IV Q4H PRN PRN PRN Reason: Breakthrough Nausea/Vomiting Psyllium Hydrophilic Mucilloid (Metamucil) 1 packet PO DAILY [facility] Last Admin: 07/13/20 10:07 Dose: 1 packet Documented by: Senna/Docusate Sodium (Senokot-S, Yesenia-Colace) 2 tablet PO BID PRN PRN PRN Reason: Constipation Sodium Chloride () 10 - 40 ml IV UD PRN PRN Reason: SALINE FLUSH Last Admin: 07/13/20 05:06 Dose: 10 ml Documented by: Assessment/Plan All Active Problems (Last Reviewed 01/25/20 @ 10:49 by Jayleen Burr RECORDS MANAGEMENT ASSISTANT, RECORDS MANAGEMENT ASSISTANT-C) Hyponatremia (Acute) COPD exacerbation (Acute) Anemia (Acute) Acute on chronic systolic heart failure (Acute) Thrush, oral (Resolved) 1- Hyponatremia with fluid overload.Patient has chronic h/o of hyponatremia . 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 Was asymptomatic.Patient did not need 3% NaCl Na level improved to 115 with lasix drip. No overcorrection Patient is not candidate for salt tabs due to heart failure. Urea and oral tolvaptan are not available in [facility] Will start the patient on conivaptan IV at 0.83 mg/hour . monitor Na level every 6 hours. will d/c lasix drip Urine study won't be accurate since the patient has been on lasix drip Will check morning K level since the patient presented with hyperkalemia and relatively low BP 2- hypokalemia: likely from lasix drip. replaced Monitor K level. keep K level within normal range will prevent Na level from falling 3- CHF exacerbation. Improved with lasix drip continue diuresis as above monitor weight thank you for the consult. Renal team will continue to follow Please call if any question at [phone] d/w Dr. Cipriano Martinez MD
--- NOTE | 2020-07-13 11:10 | NURSING ---
Was asked to see patient for ulcers to bilateral lower legs. removed Unna boots. there are no open areas noted. there is moderate edema noted. pt states the edema is much improved from yesterday. washed legs and feet with soap and water. pat dry. applied kerlix and EVELIN wraps from the base of the toes to just below the knees. legs elevated up in the chair. can reapply the Unna boots prior to discharge home. pt follows at the wound healing center. see skin photos.
[2020-07-13 12:11] LABS: Pathologist Review Reviewed
[2020-07-13 12:13] LABS: Sodium Level 113 mmol/L (136-145)
[2020-07-13 12:15] LABS: Pathologist Review Reviewed
--- NOTE | 2020-07-13 12:15 | NURSING ---
skin photo: bilateral lower legs
--- NOTE | 2020-07-13 13:49 | CASEMGMT ---
REUBEN received a return call from Roseann in TCU and she would be able to take patient. REUBEN will continue to follow. Myrtle CLIFTON
--- NOTE | 2020-07-13 15:54 | NURSING ---
This RN taking over care of pt at this time. Report received from Lidya.
[2020-07-13 18:46] LABS: Probe Check PASS; Specimen Processing Control PASS
[2020-07-13 19:12] LABS: Sodium Level 116 mmol/L (136-145)
[2020-07-13] MEDS: Ipratropium/Albuterol Sulfate 3 ML AMPUL.NEB INHALATION (19:13)
[2020-07-13 23:19] LABS: Sodium Level 117 mmol/L (136-145)
[2020-07-14] VITALS (15 sets, daily range): BP systolic 94–124; BP diastolic 34–55; PULSE 69–95; RESP 16–21; TEMP 36.4–37.1; O2SAT 84–100
[2020-07-14 05:17] LABS: Absolute Lymphocyte Count 0.37 X10^3/uL (0.83-4.51); Absolute Neutrophil Count 9.1 X10^3/uL (2.0-7.7); Eosinophil# 0.01 X10^3/uL; Eosinophils% 0.1 % (0-5); Hematocrit 23.9 % (37-47); Hemoglobin 7.2 g/dL (12.0-15.0); Lymphocyte # 0.37 X10^3/ul (4.0); Lymphocyte % 3.7 % (19-41); Mean Corp Hgb Conc 30.1 g/dL (32-36); Mean Corpuscular Volume 72.9 fL (81-99); Mean Platelet Vol. 8.8 fl (6.2-12.0); Monocyte# 0.53 X10^3/uL; Monocyte% 5.3 % (0-10); NRBC Flagged by Analyzer 0.3 % (0-5); Neutrophil # 9.12 X10^3/uL (2.7-7.7); Neutrophil % 90.3 % (47-70); POSITIVE DIFFERENTIAL YES; Platelet Count 247 K/mm3 (150-450); RBC Distribution Width CV 17.6 % (11.6-14.6); Red Blood Count 3.28 M/mm3 (4.2-5.4); White Blood Count 10.1 K/mm3 (4.4-11.0)
[2020-07-14 05:22] LABS: Differential Indicated SCAN CRITERIA MET
[2020-07-14 05:46] LABS: Anion Gap 10 (5-15); BUN 5 mg/dL (7-18); BUN/Creat Ratio 11.5 RATIO (10-20); Calcium,Total 8.6 mg/dL (8.5-10.1); Chloride 78 mmol/L (98-107); Creatinine, Serum 0.44 mg/dL (0.55-1.02); EST Glomerular Filtration Rate 150 mL/min (>60); Est Glom Filt Rate - Afr Amer 182 mL/min (>60); Estimated Creatinine Clearance 43.27 ml/min; Glucose 140 mg/dL (74-106); Potassium 3.4 mmol/L (3.5-5.1); Sodium Level 124 mmol/L (136-145)
[2020-07-14] MEDS: Nystatin Powder 15gm Bottle 1 APPLIC TOPICAL ×3 (05:49→21:02)
[2020-07-14] MEDS: 0.9% Saline Lock 10 ML Syringe IV (05:49)
[2020-07-14 06:14] LABS: Differential Comment SCANNED
[2020-07-14] MEDS: Ipratropium/Albuterol Sulfate 3 ML AMPUL.NEB INHALATION ×4 (07:04→22:58)
[2020-07-14] MEDS: predniSONE 20 MG Tablet 40 MG PO (07:36)
[2020-07-14] MEDS: Menthol/Lanolin/Calamine/Znox 113 GM Tube 1 APPLIC TOPICAL ×2 (09:03→21:02)
[2020-07-14] MEDS: NYSTATIN 500,000 UNIT/5 ML UDC 500000 UNIT PO ×4 (09:05→21:03)
[2020-07-14] MEDS: guaiFENesin 1,200 MG Tablet 1200 MG PO ×2 (09:06→21:02)
[2020-07-14] MEDS: Lisinopril 10 MG Tablet PO (09:06)
[2020-07-14] MEDS: Carvedilol 25 MG Tablet PO ×2 (09:06→21:02)
[2020-07-14] MEDS: Psyllium 1 PACKET PO (09:07)
--- NOTE | 2020-07-14 10:17 | PCM.PN.REN ---
Patient Problems: Active and Suspected Problems (Last Reviewed 01/25/20 @ 10:49 by Jayleen Burr PTA, PTA-C) Hyponatremia (Acute) Anemia (Acute) Acute on chronic systolic heart failure (Acute) Subjective: Patient said breathing is ok. on RA Made > 6L in the last 24 hrs No headache. No blurry vision. - Physical Exam Vitals/I&O's: Vital Signs Temp Pulse Resp BP Pulse Ox 97.7 F L 77 18 124/55 H 97 07/14/20 09:03 07/14/20 09:03 07/14/20 09:03 07/14/20 09:03 07/14/20 09:03 Oxygen Flow Rate (L/min) 2.5 Oxygen Delivery Method Room Air Weight: 82.3 kg Body Mass Index (BMI) 35.4 Finger Stick Blood Glucose 103 Intake and Output for Last 24 Hours 07/12/20 07/13/20 07/14/20 23:59 23:59 23:59 Intake Total 1070 / 1070 460.37 / 820.37 509.88 / 509.88 Output Total 5900 / 5900 6500 / 8150 3350 / 3350 Balance -4830 / -4830 -6039.63 / -7329.63 -2840.12 / -2840.12 General: Alert, Oriented x3 HEENT: Atraumatic Oral: Moist Mucosa Neck: Supple, No JVD Lungs: Clear to auscultation, Normal air movement, No rhonchi, No wheeze Cardiovascular: Regular rate, Regular Rhythm, Normal S1, Normal S2 Abdomen: Bowel Sounds Present, Soft, Non Tender, Non-Distended Extremities: No clubbing, No cyanosis, Edema - +1 edema Musculoskeletal: No Tenderness to Palpation of Joints or Extremities Lymphatic: No Cervical, Supraclavicular, or Inguinal Adenopathy Neurological: Cranial nerves II-XII grossly intact, Neuro grossly intact Psych/Mental Status: Appropriate Laboratory Results 07/12/20 09:55: Diff Path Review Reviewed 07/13/20 05:50: Diff Path Review Reviewed 07/13/20 11:40: Sodium 113 L* 07/13/20 17:30: Sodium 116 L* 07/13/20 22:58: Sodium 117 L* 07/13/20 : COVID-19 (FABIO) Not Detected 07/14/20 05:00: WBC 10.1, RBC 3.28 L, Hgb 7.2 L, Hct 23.9 L, MCV 72.9 L, MCH 22.0 L, MCHC 30.1 L, RDW Std Deviation 47.0 H, RDW Coeff of Malini 17.6 H, Plt Count 247, MPV 8.8, Immature Gran % (Auto) 0.600, Neut % (Auto) 90.3 H, Lymph % (Auto) 3.7 L, Gem % (Auto) 5.3, Eos % (Auto) 0.1, Baso % (Auto) 0.0, Absolute Neuts (auto) 9.1 H, Absolute Lymphs (auto) 0.37 L, Nucleated RBC % 0.3, Differential Comment SCANNED 07/14/20 05:00: Sodium 124 L, Potassium 3.4 L, Chloride 78 L, Carbon Dioxide 36.0 H, Anion Gap 10, BUN 5 L, Creatinine 0.44 L, Estim Creat Clear Calc 43.27, Est GFR (MDRD) Af Amer 182, Est GFR (MDRD) Non-Af 150, BUN/Creatinine Ratio 11.5, Glucose 140 H, Calcium 8.6 07/14/20 05:00: Cortisol 11.30 Current Medications Acetaminophen (Tylenol) 650 mg PO Q6H PRN PRN PRN Reason: Pain Score 1-10/Temp > 100.7 F Al Hydroxide/Mg Hydroxide (Mylanta Ii) 30 ml PO Q6H PRN PRN PRN Reason: Gastric Burning Albuterol Sulfate (Ventolin Aerosols) 2.5 mg INHALATION Q2H PRN PRN PRN Reason: SOB/Wheezing Albuterol/Ipratropium (Duoneb) 3 ml INHALATION Q4H.RT [facility] Last Admin: 07/14/20 07:04 Dose: 3 ml Documented by: Calamine/Phenol (Calmoseptine Ointment) 1 applic TOPICAL BID [facility]; Protocol Last Admin: 07/14/20 09:03 Dose: 1 applicatio Documented by: Carvedilol (Coreg) 25 mg PO BID [facility] Last Admin: 07/14/20 09:06 Dose: 25 mg Documented by: Guaifenesin (Mucinex) 1,200 mg PO BID [facility] Last Admin: 07/14/20 09:06 Dose: 1,200 mg Documented by: Lisinopril (Zestril) 10 mg PO DAILY [facility] Last Admin: 07/14/20 09:06 Dose: 10 mg Documented by: Melatonin (Melatonin) 3 mg PO QHS PRN PRN PRN Reason: INSOMNIA Morphine Sulfate () 2 mg IV Q3H PRN PRN PRN Reason: Pain Score 6-10/10 Nitroglycerin (Nitrostat) 0.4 mg SUBLINGUAL Q5M PRN PRN Reason: CARDIAC/CHEST PAIN Nutritional Formula (Lactose Free) (Ensure Enlive) 120 ml PO 4X/DAY [facility] Last Admin: 07/14/20 09:04 Dose: 120 ml Documented by: Nystatin (Mycostatin Powder) 1 applic TOPICAL TID [facility]; Protocol Last Admin: 07/14/20 05:49 Dose: 1 applicatio Documented by: Nystatin (Nystatin) 500,000 unit PO 4X/DAY [facility] Last Admin: 07/14/20 09:05 Dose: 500,000 unit Documented by: Ondansetron HCl (Zofran) 4 mg IV Q8H PRN PRN PRN Reason: NAUSEA/VOMITING Oxycodone HCl (Oxyir) 5 mg PO Q4H PRN PRN PRN Reason: Pain Score 4-5/10 Potassium Chloride (K-Dur) 40 meq PO BID [facility] Stop: 07/16/20 07:41 Last Admin: 07/14/20 09:07 Dose: 40 meq Documented by: Prednisone () 40 mg PO DAILY@0800 [facility] Stop: 07/16/20 08:01 Last Admin: 07/14/20 07:36 Dose: 40 mg Documented by: Prochlorperazine Edisylate (Compazine Iv) 5 mg IV Q4H PRN PRN PRN Reason: Breakthrough Nausea/Vomiting Psyllium Hydrophilic Mucilloid (Metamucil) 1 packet PO DAILY [facility] Last Admin: 07/14/20 09:07 Dose: 1 packet Documented by: Senna/Docusate Sodium (Senokot-S, Yesenia-Colace) 2 tablet PO BID PRN PRN PRN Reason: Constipation Sodium Chloride () 10 - 40 ml IV UD PRN PRN Reason: SALINE FLUSH Last Admin: 07/14/20 05:49 Dose: 10 ml Documented by: Torsemide (Demadex) 100 mg PO DAILY [facility] Necessity - Tobacco Use Smoking Status: Current every day smoker Assessment/Plan All Active Problems (Last Reviewed 01/25/20 @ 10:49 by Jayleen Burr PTA, PTA-C) Hyponatremia (Acute) COPD exacerbation (Acute) Anemia (Acute) Acute on chronic systolic heart failure (Acute) Thrush, oral (Resolved) 1- Hyponatremia with fluid overload.Patient has chronic h/o of hyponatremia . 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 No adrenal insufficiency Patient presented with serum Na 111. Was asymptomatic.Patient did not need 3% NaCl Na level improved to 115 on 07/13 with lasix drip. No overcorrection Patient was not candidate for salt tabs due to heart failure. Urea and oral tolvaptan are not available in [facility] lasix drip was stopped and conivaptan IV drip started on 07/13. Na level corrected to 124 which is appropriate will d/c conivaptan drip and start torsemide 100 mg PO daily fluid restriction 1200 cc Urine study won't be accurate since the patient has been on lasix 2- hypokalemia: likely from lasix drip. replaced Monitor K level. keep K level within normal range will prevent Na level from falling 3- CHF exacerbation. Improved with lasix drip/conivaptan IV continue diuresis as above monitor weight Renal team will continue to follow Please call if any question at [phone] d/w Dr. Cipriano Martinez MD
--- NOTE | 2020-07-14 11:01 | PCM.PN.HOSP ---
Patient Problems: Active and Suspected Problems (Last Reviewed 01/25/20 @ 10:49 by Jayleen Burr SEED LABORATORY ASSISTANT, SEED LABORATORY ASSISTANT-C) Hyponatremia (Acute) Anemia (Acute) Acute on chronic systolic heart failure (Acute) Reason for Visit: Follow-up for hyponatremia and acute on chronic heart failure Objective: Patient had good diuresis, 6.5 L free water. Only received about 6 L. IV conivaptan was discontinued and patient lost weight from 212 to 181 pounds. Physical exam General: Alert, Oriented x3, Cooperative HEENT: Atraumatic, PERRLA, EOMI, Normocephalic Oral: No Gingival or Mucosal Lesions/ Ulcerations Neck: Supple, No JVD, Negative Carotid Bruits Lungs: Air entry diminished in bilateral lung bases. shortness of breath is resolved. No crepitation/rhonchi Cardiovascular: Irregular rate and rhythm. Normal S1, Normal S2, No murmurs. personnel monitor shows A. fib Abdomen: Bowel Sounds Present, Soft, Non Tender, Non-Distended. Generalized abdominal swelling with subcutaneous edema possible ascites : No renal angle tenderness. No suprapubic tenderness. Extremities: Pitting edema of thigh bilateral lower extremities. Capillary Refill Less than 3 Seconds Skin: No rashes, No breakdown Musculoskeletal: No Tenderness to Palpation of Joints or Extremities. Arthritic changes of bilateral knees and knee joints Neurological: Cranial nerves II-XII grossly intact, Deep Tendon Reflexes 2+/4 and Symmetrical, Neuro grossly intact Psych/Mental Status: Normal Affect, Appropriate. Vitals/I&O's: Vital Signs Temp Pulse Resp BP Pulse Ox 97.7 F L 77 18 124/55 H 97 07/14/20 09:03 07/14/20 09:03 07/14/20 09:03 07/14/20 09:03 07/14/20 09:03 Oxygen Flow Rate (L/min) 2.5 Oxygen Delivery Method Room Air Weight: 181 lb 7.047 oz Body Mass Index (BMI) 35.4 Finger Stick Blood Glucose 103 Intake and Output for Last 24 Hours 07/12/20 07/13/20 07/14/20 23:59 23:59 23:59 Intake Total 1070 / 1070 460.37 / 820.37 509.88 / 509.88 Output Total 5900 / 5900 6500 / 8150 3350 / 3350 Balance -4830 / -4830 -6039.63 / -7329.63 -2840.12 / -2840.12 Laboratory Results 07/12/20 09:55: Diff Path Review Reviewed 07/13/20 05:50: Diff Path Review Reviewed 07/13/20 11:40: Sodium 113 L* 07/13/20 17:30: Sodium 116 L* 07/13/20 22:58: Sodium 117 L* 07/13/20 : COVID-19 (FABIO) Not Detected 07/14/20 05:00: WBC 10.1, RBC 3.28 L, Hgb 7.2 L, Hct 23.9 L, MCV 72.9 L, MCH 22.0 L, MCHC 30.1 L, RDW Std Deviation 47.0 H, RDW Coeff of Malini 17.6 H, Plt Count 247, MPV 8.8, Immature Gran % (Auto) 0.600, Neut % (Auto) 90.3 H, Lymph % (Auto) 3.7 L, [place] % (Auto) 5.3, Eos % (Auto) 0.1, Baso % (Auto) 0.0, Absolute Neuts (auto) 9.1 H, Absolute Lymphs (auto) 0.37 L, Nucleated RBC % 0.3, Differential Comment SCANNED 07/14/20 05:00: Sodium 124 L, Potassium 3.4 L, Chloride 78 L, Carbon Dioxide 36.0 H, Anion Gap 10, BUN 5 L, Creatinine 0.44 L, Estim Creat Clear Calc 43.27, Est GFR (MDRD) Af Amer 182, Est GFR (MDRD) Non-Af 150, BUN/Creatinine Ratio 11.5, Glucose 140 H, Calcium 8.6 07/14/20 05:00: Cortisol 11.30 Current Medications Acetaminophen (Tylenol) 650 mg PO Q6H PRN PRN PRN Reason: Pain Score 1-10/Temp > 100.7 F Al Hydroxide/Mg Hydroxide (Mylanta Ii) 30 ml PO Q6H PRN PRN PRN Reason: Gastric Burning Albuterol Sulfate (Ventolin Aerosols) 2.5 mg INHALATION Q2H PRN PRN PRN Reason: SOB/Wheezing Albuterol/Ipratropium (Duoneb) 3 ml INHALATION Q4H.RT NIKKI Last Admin: 07/14/20 07:04 Dose: 3 ml Documented by: Calamine/Phenol (Calmoseptine Ointment) 1 applic TOPICAL BID [facility]; Protocol Last Admin: 07/14/20 09:03 Dose: 1 applicatio Documented by: Carvedilol (Coreg) 25 mg PO BID [facility] Last Admin: 07/14/20 09:06 Dose: 25 mg Documented by: Guaifenesin (Mucinex) 1,200 mg PO BID [facility] Last Admin: 07/14/20 09:06 Dose: 1,200 mg Documented by: Lisinopril (Zestril) 10 mg PO DAILY [facility] Last Admin: 07/14/20 09:06 Dose: 10 mg Documented by: Melatonin (Melatonin) 3 mg PO QHS PRN PRN PRN Reason: INSOMNIA Morphine Sulfate () 2 mg IV Q3H PRN PRN PRN Reason: Pain Score 6-10/10 Nitroglycerin (Nitrostat) 0.4 mg SUBLINGUAL Q5M PRN PRN Reason: CARDIAC/CHEST PAIN Nutritional Formula (Lactose Free) (Ensure Enlive) 120 ml PO 4X/DAY [facility] Last Admin: 07/14/20 09:04 Dose: 120 ml Documented by: Nystatin (Mycostatin Powder) 1 applic TOPICAL TID [facility]; Protocol Last Admin: 07/14/20 05:49 Dose: 1 applicatio Documented by: Nystatin (Nystatin) 500,000 unit PO 4X/DAY [facility] Last Admin: 07/14/20 09:05 Dose: 500,000 unit Documented by: Ondansetron HCl (Zofran) 4 mg IV Q8H PRN PRN PRN Reason: NAUSEA/VOMITING Oxycodone HCl (Oxyir) 5 mg PO Q4H PRN PRN PRN Reason: Pain Score 4-5/10 Potassium Chloride (K-Dur) 40 meq PO BID [facility] Stop: 07/16/20 07:41 Last Admin: 07/14/20 09:07 Dose: 40 meq Documented by: Prednisone () 40 mg PO DAILY@0800 [facility] Stop: 07/16/20 08:01 Last Admin: 07/14/20 07:36 Dose: 40 mg Documented by: Prochlorperazine Edisylate (Compazine Iv) 5 mg IV Q4H PRN PRN PRN Reason: Breakthrough Nausea/Vomiting Psyllium Hydrophilic Mucilloid (Metamucil) 1 packet PO DAILY NIKKI Last Admin: 07/14/20 09:07 Dose: 1 packet Documented by: Senna/Docusate Sodium (Senokot-S, Yesenia-Colace) 2 tablet PO BID PRN PRN PRN Reason: Constipation Sodium Chloride () 10 - 40 ml IV UD PRN PRN Reason: SALINE FLUSH Last Admin: 07/14/20 05:49 Dose: 10 ml Documented by: Torsemide (Demadex) 100 mg PO DAILY NIKKI STROKE Vital Signs/Narrative: Vital Signs Temp Pulse Resp BP Pulse Ox 07/14/20 09:03 97.7 F L 77 18 124/55 H 97 07/14/20 07:05 83 18 98 Medical Necessity - Tobacco Use Smoking Status: Current every day smoker Assessment/Plan All Active Problems (Last Reviewed 01/25/20 @ 10:49 by Jayleen Burr SEED LABORATORY ASSISTANT, SEED LABORATORY ASSISTANT-C) Hyponatremia (Acute) COPD exacerbation (Acute) Anemia (Acute) Acute on chronic systolic heart failure (Acute) Thrush, oral (Resolved) The patient is a 74 year old F WITH multiple comorbidities as listed above including chronic hypoxic respiratory failure on 2 L of oxygen on exertion and CHF, COPD came to ER with progressive worsening of shortness of breath for 3 weeks along with productive cough and lab and chest x-ray findings consistent with CHF and COPD exacerbation. 1. Acute respiratory insufficiency with chronic hypoxic respiratory failure secondary to mainly CHF exacerbation but mild COPD exacerbation: The patient is being admitted in PCU. Patient was given Lasix 80 mg IV and then started on Lasix drip. CHF core measures with fluid restriction 1500 mL, daily weight measurement, strict intake and output, beta-donovan. Shortness of breath is improved. 2. Acute on chronic hyponatremia most likely hypotonic hypervolemic from CHF exacerbation: Sodium is 111 and last time it was 114. She was given 100 mL of 3% sodium chloride in ER. Repeat sodium after 4 hours until sodium is 120. Nephrology consult. Started on sodium tablets, 2 g 3 times daily along with Lasix. 07/13: Seen by assistant corporation counsel and discussed with him. Started on IV conivaptan drip at 4.16 mL/h for 24 hours for free water diuresis and clearance. Lasix drip is discontinued. Monitor intake and output. Gradual improvement of sodium. 3. Acute on chronic systolic heart failure with anasarca: Strict input and output. Previous 2D echo in October 2019 shows EF 50% with stage III diastolic dysfunction and both atria enlarged. RVSP 26 mmHg. Chest x-ray shows bilateral small pleural effusion. During previous admission, she had large pleural effusion for which thoracocentesis was done and was transudate. Patient dry weight is about 150 pound and currently she weighs 212 pounds. Interpretation Summary Normal LV size. Mild concentric left ventricular hypertrophy. Left ventricular systolic function is lower limits of normal. The estimated ejection fraction is 50 %. The left atrium is moderately enlarged. The right atrium is moderately enlarged. Stage 3 diastolic dysfunction. Pulmonary artery systolic pressure is 26 mmHg. Compared to the previous the pulmonary pressures are better There is moderate to severe mitral annular calcification. Small pericardial effusion. 07/13: I discussed with Dr. luo on 07/12. We agreed there is no indication to repeat echo as it was recently done and patient present condition is mainly secondary to noncompliance. 07/14: Patient had good diuresis and loss of fluid weight. Conivaptan IV infusion was discontinued. Patient was started back on Lasix 40 mg IV every 8 hourly. Patient was once again discussed about the CHF core measures to maintain at home including 2 g sodium and fluid restriction. 4. Mild COPD exacerbation: DuoNeb every 4 hourly. On IV Solu-Medrol 40 mg every 8 hourly. Incentive spirometry, PEP and chest physiotherapy. 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 Patient did not follow-up in pulmonary clinic after discharge in April 2020. 07/13: Solu-Medrol discontinued and started on prednisone 40 mg daily from tomorrow a.m. 5 days of a steroid burst therapy. 5. Non-small cell carcinoma of lung, left upper lobe: She has CT-guided biopsy of left upper lobe mass reported non-small cell carcinoma favor adenocarcinoma consistent with lung primary. Patient completed radiotherapy about a year ago. Follows Dr. Cazares. 6. Chronic A. fib on Xarelto: Hold Xarelto as hemoglobin is 7.3. Denies any obvious external bleeding. 7. Hypertension: On lisinopril 10 mg daily. 8. Continued smoking cigarette/nicotine dependence: Counseled on cessation. Nicotine patch 9. DVT prophylaxis: Bilateral SCDs. Pharmacological prophylaxis contraindicated. Living will/advanced directive/end of life care: Full code. Total time of the visit including total time spent in counseling or coordination of care, (more than 50% of the total time, spent in obtaining medical information from nurses and other ancillary care providers), interdisciplinary rounds and discussion with quality consultant, review of labs and imaging is 30 minutes. Clinical Impression(s) from Imaging Studies Chest X-Ray 07/12/20 09:44 IMPRESSION: Persistent left parahilar mass. Blunting of both costophrenic angles in keeping with small bilateral effusions. Inpatient E&M: 19230 Subs Hosp L2
--- NOTE | 2020-07-14 11:02 | CASEMGMT ---
Patient's asked to talk with REUBEN. SW met with him and he asked if SW had any resources for places that build ramps. SW gave him a list of companies that build ramps. SW asked if they had talked any more about her going to TCU at d/c. He said they had not as she spends most of her time sleeping. Myrtle ERICKSON MSW
--- NOTE | 2020-07-14 11:06 | CPS ---
pt placed back on 2L NC.
[2020-07-14 11:23] LABS: Sodium Level 123 mmol/L (136-145)
[2020-07-14] MEDS: Torsemide 100 MG Tablet PO (11:58)
[2020-07-14 17:41] LABS: Sodium Level 126 mmol/L (136-145)
[2020-07-15] VITALS (12 sets, daily range): BP systolic 94–109; BP diastolic 50–73; PULSE 65–98; RESP 14–20; TEMP 36.7–36.9; O2SAT 96–100
[2020-07-15] MEDS: Ipratropium/Albuterol Sulfate 3 ML AMPUL.NEB INHALATION ×3 (03:10→11:36)
[2020-07-15] MEDS: Nystatin Powder 15gm Bottle 1 APPLIC TOPICAL (05:58)
[2020-07-15 06:41] LABS: Absolute Lymphocyte Count 0.87 X10^3/uL (0.83-4.51); Absolute Neutrophil Count 8.7 X10^3/uL (2.0-7.7); Eosinophil# 0.01 X10^3/uL; Eosinophils% 0.1 % (0-5); Hematocrit 24.1 % (37-47); Lymphocyte # 0.87 X10^3/ul (4.0); Lymphocyte % 8.3 % (19-41); Mean Corpuscular Hgb 21.7 pg (27.0-32.0); Mean Corpuscular Volume 74.8 fL (81-99); Mean Platelet Vol. 8.7 fl (6.2-12.0); Monocyte# 0.89 X10^3/uL; Monocyte% 8.5 % (0-10); NRBC Flagged by Analyzer 0.2 % (0-5); Neutrophil # 8.66 X10^3/uL (2.7-7.7); Neutrophil % 82.4 % (47-70); Platelet Count 273 K/mm3 (150-450); RBC Distribution Width CV 17.8 % (11.6-14.6); RBC Distribution Width SD 48.6 fl (35.1-43.9); Red Blood Count 3.22 M/mm3 (4.2-5.4); White Blood Count 10.5 K/mm3 (4.4-11.0)
[2020-07-15 07:03] LABS: Anion Gap 2 (5-15); BUN 9 mg/dL (7-18); BUN/Creat Ratio 17.2 RATIO (10-20); Calcium,Total 8.6 mg/dL (8.5-10.1); Chloride 82 mmol/L (98-107); Creatinine, Serum 0.52 mg/dL (0.55-1.02); EST Glomerular Filtration Rate 122 mL/min (>60); Est Glom Filt Rate - Afr Amer 148 mL/min (>60); Estimated Creatinine Clearance 43.27 ml/min; Glucose 93 mg/dL (74-106); Potassium 3.6 mmol/L (3.5-5.1); Sodium Level 126 mmol/L (136-145)
--- NOTE | 2020-07-15 08:33 | NURSING ---
In to reassess bilateral lower legs. removed EVELIN wraps. no drainage noted. edema improved. no redness noted. washed legs and feet with soap and water. pt dry. reapplied the EVELIN wraps from the base of the toes to just below the knees. pt tolerated well. legs elevated up in the chair.
[2020-07-15] MEDS: guaiFENesin 1,200 MG Tablet 1200 MG PO (09:07)
[2020-07-15] MEDS: Torsemide 100 MG Tablet PO (09:07)
[2020-07-15] MEDS: Carvedilol 25 MG Tablet PO (09:07)
[2020-07-15] MEDS: Lisinopril 10 MG Tablet PO (09:07)
[2020-07-15] MEDS: Psyllium 1 PACKET PO (09:11)
[2020-07-15] MEDS: Menthol/Lanolin/Calamine/Znox 113 GM Tube 1 APPLIC TOPICAL (09:11)
[2020-07-15] MEDS: NYSTATIN 500,000 UNIT/5 ML UDC 500000 UNIT PO (09:11)
[2020-07-15] MEDS: predniSONE 20 MG Tablet 40 MG PO (09:11)
--- NOTE | 2020-07-15 09:13 | PCM.TXEXTCAR ---
- Diet 07/12/20 14:11 Diet: Cardiac - Heart Healthy Food consistency:: Regular Liquid Consistency:: Regular/Thin Fluid restriction:: 1500 mL - Routine Orders/Code Status Suppository Type: Dulcolax 10mg Suppository Frequency: Daily PRN Routine Lab Work: BMP - then weekly for 2 weeks and then a per PCP Code Status: Full Code - Wound(s) B/L LEGS Wound Type: Edema with oozing at times - Therapies Extremity Affected:: Bilateral Lower Physical Therapy: Eval and Treat Occupational Therapy: Eval and Treat Speech Therapy: Eval and Treat - Problem/Diagnosis (1) Hyponatremia Status: Acute Current Visit: Yes (2) COPD exacerbation Status: Acute Current Visit: No (3) Leg edema Status: Chronic Current Visit: No (4) Non-small cell lung cancer Status: Chronic Current Visit: Yes (5) Anemia Status: Acute Current Visit: Yes (6) Chronic respiratory failure with hypoxia Status: Chronic Current Visit: No (7) Tobacco abuse Status: Chronic Current Visit: No (8) Tobacco abuse counseling Status: Chronic Current Visit: No (9) Dependent edema Status: Chronic Current Visit: No (10) Bilateral leg ulcer Status: Chronic Current Visit: No (11) Non-ischemic cardiomyopathy Status: Chronic Current Visit: No (12) Paroxysmal atrial fibrillation Status: Chronic Current Visit: Yes (13) Acute on chronic systolic (congestive) heart failure Status: Chronic Current Visit: Yes (14) Secondary pulmonary arterial hypertension Status: Chronic Current Visit: No (15) Non-rheumatic tricuspid valve insufficiency Status: Chronic Current Visit: No (16) Nonrheumatic mitral (valve) insufficiency Status: Chronic Current Visit: No (17) Essential (primary) hypertension Status: Chronic Current Visit: No (18) Lung mass Status: Chronic Current Visit: Yes (19) History of breast cancer Status: Chronic Current Visit: No (20) COPD (chronic obstructive pulmonary disease) Status: Chronic Current Visit: No (21) Nicotine dependence Status: Chronic Current Visit: No (22) Chronic anticoagulation Status: Chronic Current Visit: Yes (23) Acute on chronic systolic heart failure Status: Acute Current Visit: Yes - Allergies/Procedures Done in Hospital Allergies/Adverse Reactions: Allergies albuterol sulfate [From Combivent] Allergy (Verified 07/12/20 09:35) Swelling ipratropium bromide [From Combivent] Allergy (Verified 07/12/20 09:35) Swelling metoprolol Allergy (Verified 07/12/20 09:35) Laryngospasms Sulfa (Sulfonamide Antibiotics) Allergy (Verified 07/12/20 09:35) Rash beclomethasone [From Qvar] Adverse Reaction (Verified 07/12/20 09:35) COUGHING benzalkonium chloride [From Merthiolate (benzalkonium)] Adverse Reaction (Verified 07/12/20 09:35) Rash codeine Adverse Reaction (Verified 07/12/20 09:35) Chest tightness chest hurts doxycycline Adverse Reaction (Verified 07/12/20 09:35) Abd cramps/diarrhea formoterol fumarate [From Dulera] Adverse Reaction (Verified 07/12/20 09:35) PT UNSURE OF REACTION hydrochlorothiazide Adverse Reaction (Verified 07/12/20 09:35) PT UNSURE OF REACTION ibuprofen [From Advil] Adverse Reaction (Verified 07/12/20 09:35) PT UNSURE OF REACTION iodine Adverse Reaction (Verified 07/12/20 09:35) Itching merbromin Adverse Reaction (Verified 07/12/20 09:35) PT UNSURE OF REACTION mometasone furoate [From Dulera] Adverse Reaction (Verified 07/12/20 09:35) PT UNSURE OF REACTION oseltamivir [From Tamiflu] Adverse Reaction (Verified 07/12/20 09:35) uterine pain prednisone Adverse Reaction (Verified 07/12/20 09:35) Abd cramps/diarrhea PLASTIC TAPE Allergy (Uncoded 07/12/20 09:35) Rash - Type of Care/Length of Stay Estimated LOS: Convalescent Care Less Than 30 days Type of Care Needed: Skilled Rehab Potential: Good Prognosis: Good - Additional Orders/Day of Discharge Day of Discharge: 07/15/20 - Dietary and Speech Recommendations Dietitian Recommendations/Changes: Continue cardiac diet w/ fluid restriction. Will decrease Ensure Enlive d/t fluid restriction to TID. - Follow Up Care Primary Care Physician: Amber Sanders MD [Primary Care Provider] - Please follow up with your Primary Care Physician in: IN 2 WEEKS Please Follow Up With: Amber Sanders MD Please Follow Up With: Rusty Jovel MD When: IN 2-4 WEEKS Please Follow Up With: Mark Campos DO When: in 4 weeks Please Follow Up With: Tony Ying MD When: in 2-3 weeks
--- NOTE | 2020-07-15 09:52 | PHA.DC.MR ---
Pharmacy Service has performed discharge medication reconciliation for this patient. The patient's discharge medication list was reviewed for discrepancies and discrepancies were resolved. Home Medications Multivit-Min/Iron/Folic/Lutein [Centrum Silver Women Tablet] 1 tab PO DAILY 10/05/19 albuterol sulfate 90 mcg/actuation aerosol inhaler 1 - 2 puff INHALATION Q4H PRN PRN #18 g 04/29/20 tiotropium bromide 2.5 mcg/actuation mist for inhalation 2 puff INHALATION BID #4 g 04/29/20 Carvedilol 25 mg PO BID 07/12/20 Fluticasone/Salmeterol [Advair Hfa 230-21 Mcg Inhaler] 2 puff INHALATION BID 07/12/20 Ketoconazole [Nizoral Cream] 1 applic TOPICAL DAILY 07/12/20 Nystatin Powder [Mycostatin Powder] 1 applic TOPICAL TID 07/12/20 Quinapril HCl [Accupril] 20 mg PO BID 07/12/20 Rivaroxaban [Xarelto] 20 mg PO DINNER 07/12/20 Terbinafine HCl 250 mg PO DAILY 07/12/20 Guaifenesin [Mucinex] 1,200 mg PO BID #14 tab 07/15/20 Potassium Chloride [K-Dur] 40 meq PO BID #60 tab 07/15/20 Torsemide [Demadex] 100 mg PO DAILY #30 tab 07/15/20
--- NOTE | 2020-07-15 10:08 | CASEMGMT ---
SW spoke with patient about discharge plan and she said she wants to go home with home health. She would like [facility] again. She has recently seen Dr Sanders's Nurse Practitioner. SW called [facility] and made referral for Retirement, PT, and OT. They are able to accept patient and will see her Saturday. REUBEN spoke with patient letting her know this information as well as that [facility] will call her to set up a time. She asked that SW share this same information with her when he returns. Plan: d/c home with [facility] nursing home PT, and OT. Myrtle ERICKSON MSW
[2020-07-15 10:19] LABS: Magnesium 1.7 mg/dL (1.6-2.6); Phosphorus 2.9 mg/dL (2.5-4.9)
--- NOTE | 2020-07-15 10:26 | DCINST_ITS ---
- Discharge Diagnoses Current Active Problems: Current Active and Chronic Problems (Last Reviewed 01/25/20 @ 10:49 by Jayleen Burr COMMERCIAL LIGHT FIXTURE ASSEMBLER, COMMERCIAL LIGHT FIXTURE ASSEMBLER-C) Hyponatremia (Acute) Non-small cell lung cancer (Chronic) Anemia (Acute) Acute on chronic systolic heart failure (Acute) Paroxysmal atrial fibrillation (Chronic) Acute on chronic systolic (congestive) heart failure (Chronic) Lung mass (Chronic) Chronic anticoagulation (Chronic) You will use the following diet at home:: Cardiac, Other - fluid restriction 1200 ml Your food should be the consistency of: Regular Discharge Activity: May Not Drive Call your doctor if you observe: Fever of 101 or Higher, Numbness or Tingling, Inability to urinate, Shortness of breath, Dizziness, Fainting spells, Swelling in the ankles, Chest pain, Prolonged hiccoughing, Increased palpitations (irregular heartbeat), Calf discomfort, Uncontrolled pain Additional Instructions: Serum BMP, magnesium and phosphorus on 07/18/2020 and follow-up with PCP. Patient is on diuretic therefore advised to do labs as mentioned above. Allergies/Adverse Reactions: Allergies albuterol sulfate [From Combivent] Allergy (Verified 07/12/20 09:35) Swelling ipratropium bromide [From Combivent] Allergy (Verified 07/12/20 09:35) Swelling metoprolol Allergy (Verified 07/12/20 09:35) Laryngospasms Sulfa (Sulfonamide Antibiotics) Allergy (Verified 07/12/20 09:35) Rash beclomethasone [From Qvar] Adverse Reaction (Verified 07/12/20 09:35) COUGHING benzalkonium chloride [From Merthiolate (benzalkonium)] Adverse Reaction (Verified 07/12/20 09:35) Rash codeine Adverse Reaction (Verified 07/12/20 09:35) Chest tightness chest hurts doxycycline Adverse Reaction (Verified 07/12/20 09:35) Abd cramps/diarrhea formoterol fumarate [From Dulera] Adverse Reaction (Verified 07/12/20 09:35) PT UNSURE OF REACTION hydrochlorothiazide Adverse Reaction (Verified 07/12/20 09:35) PT UNSURE OF REACTION ibuprofen [From Advil] Adverse Reaction (Verified 07/12/20 09:35) PT UNSURE OF REACTION iodine Adverse Reaction (Verified 07/12/20 09:35) Itching merbromin Adverse Reaction (Verified 07/12/20 09:35) PT UNSURE OF REACTION mometasone furoate [From Dulera] Adverse Reaction (Verified 07/12/20 09:35) PT UNSURE OF REACTION oseltamivir [From Tamiflu] Adverse Reaction (Verified 07/12/20 09:35) uterine pain prednisone Adverse Reaction (Verified 07/12/20 09:35) Abd cramps/diarrhea PLASTIC TAPE Allergy (Uncoded 07/12/20 09:35) Rash Medications to take at Discharge Multivit-Min/Iron/Folic/Lutein [Centrum Silver Women Tablet] 1 tab PO DAILY 10/05/19 albuterol sulfate 90 mcg/actuation aerosol inhaler 1 - 2 puff INHALATION Q4H PRN PRN #18 g 04/29/20 tiotropium bromide 2.5 mcg/actuation mist for inhalation 2 puff INHALATION BID #4 g 04/29/20 Carvedilol 25 mg PO BID 07/12/20 Fluticasone/Salmeterol [Advair Hfa 230-21 Mcg Inhaler] 2 puff INHALATION BID 07/12/20 Ketoconazole [Nizoral Cream] 1 applic TOPICAL DAILY 07/12/20 Nystatin Powder [Mycostatin Powder] 1 applic TOPICAL TID 07/12/20 Quinapril HCl [Accupril] 20 mg PO BID 07/12/20 Rivaroxaban [Xarelto] 20 mg PO DINNER 07/12/20 Terbinafine HCl 250 mg PO DAILY 07/12/20 Guaifenesin [Mucinex] 1,200 mg PO BID #14 tab 07/15/20 Magnesium Oxide 400 mg PO BID #60 tab 07/15/20 Potassium Chloride [K-Dur] 40 meq PO BID #60 tab 07/15/20 Torsemide [Demadex] 100 mg PO DAILY #30 tab 07/15/20 The following prescriptions were given: Torsemide [Demadex] 100 mg PO DAILY #30 tab Transmission Status: Received by [facility] Potassium Chloride [K-Dur] 40 meq PO BID #60 tab Transmission Status: Received by [facility] Magnesium Oxide 400 mg PO BID #60 tab Transmission Status: Pending to [facility] Guaifenesin [Mucinex] 1,200 mg PO BID #14 tab Transmission Status: Received by [facility] Primary Care Physician: Amber Sanders MD [Primary Care Provider] - Please follow up with your Primary Care Physician in: IN 2 WEEKS Test Results: Test results from this visit will be discussed in further detail at your follow- up appointment, if applicable. Please Follow Up With: Amber Sanders MD Please Follow Up With: Rusty Jovel MD When: IN 2-4 WEEKS Please Follow Up With: Mark Campos DO When: in 4 weeks Please Follow Up With: Tony Ying MD When: in 2-3 weeks
--- NOTE | 2020-07-15 10:29 | DS.PCM_ITS ---
Discharge Date and Diagnosis - Problem List Patient Problems: Active and Suspected Problems (Last Reviewed 01/25/20 @ 10:49 by Jayleen Burr OFFICE NURSE, OFFICE NURSE-C) Hyponatremia (Acute) Anemia (Acute) Acute on chronic systolic heart failure (Acute) Date of Admission: 07/12/20 Date of Discharge: 07/15/20 - Primary Discharge Diagnosis Acute Problems: Active Problems (Last Reviewed 01/25/20 @ 10:49 by Jayleen Burr OFFICE NURSE, OFFICE NURSE-C) Hyponatremia (Acute) Anemia (Acute) Acute on chronic systolic heart failure (Acute) - Secondary Discharge Diagnosis Chronic Problems: Chronic Problems (Last Reviewed 01/25/20 @ 10:49 by Jayleen Burr OFFICE NURSE, OFFICE NURSE-C) Leg edema (Chronic) Non-small cell lung cancer (Chronic) Chronic respiratory failure with hypoxia (Chronic) Tobacco abuse (Chronic) Tobacco abuse counseling (Chronic) Dependent edema (Chronic) Bilateral leg ulcer (Chronic) Non-ischemic cardiomyopathy (Chronic) Paroxysmal atrial fibrillation (Chronic) Acute on chronic systolic (congestive) heart failure (Chronic) Secondary pulmonary arterial hypertension (Chronic) Non-rheumatic tricuspid valve insufficiency (Chronic) Nonrheumatic mitral (valve) insufficiency (Chronic) Essential (primary) hypertension (Chronic) Lung mass (Chronic) History of breast cancer (Chronic) COPD (chronic obstructive pulmonary disease) (Chronic) Nicotine dependence (Chronic) Chronic anticoagulation (Chronic) Hospital Course and Treatment Consultations 07/13/20 01:07 Consult: Onc/Wound/oxidized finish plater Routine Comment: BLE Leg Ulcers Reason for Consult:: BLE Leg Ulcers Comments:: Pt. of wound clinic. Operations: None Summary of Care Provided: [] The patient is a 74 year old F WITH multiple comorbidities as listed above including chronic hypoxic respiratory failure on 2 L of oxygen on exertion and CHF, COPD came to ER with progressive worsening of shortness of breath for 3 weeks along with productive cough and lab and chest x-ray findings consistent with CHF and COPD exacerbation. 1. Acute respiratory insufficiency with chronic hypoxic respiratory failure secondary to mainly CHF exacerbation but mild COPD exacerbation: The patient is being admitted in PCU. Patient was given Lasix 80 mg IV and then started on Lasix drip. CHF core measures with fluid restriction 1500 mL, daily weight measurement, strict intake and output, beta-donovan. Shortness of breath is improved. 2. Acute on chronic hyponatremia most likely hypotonic hypervolemic from CHF exacerbation: Sodium is 111 and last time it was 114. She was given 100 mL of 3% sodium chloride in ER. Repeat sodium after 4 hours until sodium is 120. Nephrology consult. Started on sodium tablets, 2 g 3 times daily along with Lasix. Patient was seen by her salad chef. Was treated with IV conivaptan drip at 4.16 mL/h for 24 hours for free water diuresis and clearance. Patient lost about 31 pounds of water. Patient had good diuresis about 6 to 8 L in last 2 days. Sodium improved to 126. 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 Patient is discharged on torsemide 100 mg daily with potassium and magnesium supplement. Patient had 7 beats of NSVT. K3.6, magnesium 1.7 phosphorus 2.9. Patient asymptomatic with no dizziness, hypotension, tachycardia or palpitation. 3. Acute on chronic systolic heart failure with anasarca: Strict input and output. Previous 2D echo in October 2019 shows EF 50% with stage III diastolic dysfunction and both atria enlarged. RVSP 26 mmHg. Chest x-ray shows bilateral small pleural effusion. During previous admission, she had large pleural effusion for which thoracocentesis was done and was transudate. Interpretation Summary Normal LV size. Mild concentric left ventricular hypertrophy. Left ventricular systolic function is lower limits of normal. The estimated ejection fraction is 50 %. The left atrium is moderately enlarged. The right atrium is moderately enlarged. Stage 3 diastolic dysfunction. Pulmonary artery systolic pressure is 26 mmHg. Compared to the previous the pulmonary pressures are better There is moderate to severe mitral annular calcification. Small pericardial effusion. 07/13: I discussed with Dr. luo on 07/12. We agreed there is no indication to repeat echo as it was recently done and patient present condition is mainly secondary to noncompliance. 4. Mild COPD exacerbation: DuoNeb every 4 hourly. On IV Solu-Medrol 40 mg every 8 hourly. Incentive spirometry, PEP and chest physiotherapy. 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 Patient did not follow-up in pulmonary clinic after discharge in April 2020. 07/13: Solu-Medrol discontinued and started on prednisone 40 mg daily from tomorrow a.m. 5 days of a steroid burst therapy. 5. Non-small cell carcinoma of lung, left upper lobe: She has CT-guided biopsy of left upper lobe mass reported non-small cell carcinoma favor adenocarcinoma consistent with lung primary. Patient completed radiotherapy about a year ago. Follows Dr. Cazares. 6. Chronic A. fib on Xarelto: Hold Xarelto as hemoglobin is 7.3. Denies any obvious external bleeding. A prescription given for ferrous sulfate given. Hemoglobin is stable above 7 g% during hospital stay. Xarelto discontinued 7. Hypertension: On lisinopril 10 mg daily. 8. Continued smoking cigarette/nicotine dependence: Counseled on cessation. Nicotine patch 9. DVT prophylaxis: Bilateral SCDs. Pharmacological prophylaxis contraindicated. Discharge medication reconciliation done. Discharge follow-up instructions completed. Discharge process discussed with the patient and all questions were answered to patient's satisfaction. Interdisciplinary rounds was done. Patient and her was encouraged for SNF but patient refused. Prescription for torsemide, lisinopril, ferrous sulfate, potassium, magnesium supplement and Mucinex sent to the patient's pharmacy. Patient was encouraged to follow-up with PCP and consultants as mentioned in discharge instruction. Total time spent, exact 35 minutes on discharge meds reconciliation, examination, coordination of care with nurses and ancillary staff, review of imaging and blood test and discussion with the patient on follow-up instructions Clinical Impression(s) from Imaging Studies Chest X-Ray 07/12/20 09:44 IMPRESSION: Persistent left parahilar mass. Blunting of both costophrenic angles in keeping with small bilateral effusions. Patient Problems: Active and Suspected Problems (Last Reviewed 01/25/20 @ 10:49 by Jayleen Burr OFFICE NURSE, OFFICE NURSE-C) Hyponatremia (Acute) Anemia (Acute) Acute on chronic systolic heart failure (Acute) Objective: Seen and examined. Patient is not short of breath. No tachypnea. Respiratory rate 17 to 18/min. Blood pressure and heart rate controlled Physical exam General: Alert, Oriented x3, Cooperative HEENT: Atraumatic, PERRLA, EOMI, Normocephalic Oral: No Gingival or Mucosal Lesions/ Ulcerations Neck: Supple, No JVD, Negative Carotid Bruits Lungs: Air entry diminished in bilateral lung bases. shortness of breath is resolved. No crepitation/rhonchi Cardiovascular: Irregular rate and rhythm. Normal S1, Normal S2, No murmurs. school bus monitor shows A. fib Abdomen: Bowel Sounds Present, Soft, Non Tender, Non-Distended. Generalized abdominal swelling with subcutaneous edema possible ascites : No renal angle tenderness. No suprapubic tenderness. Extremities: Pitting edema of thigh bilateral lower extremities has improved. Capillary Refill Less than 3 Seconds Skin: No rashes, No breakdown Musculoskeletal: No Tenderness to Palpation of Joints or Extremities. Arthritic changes of bilateral knees and knee joints Neurological: Cranial nerves II-XII grossly intact, Deep Tendon Reflexes 2+/4 and Symmetrical, Neuro grossly intact Psych/Mental Status: Normal Affect, Appropriate. - Physical Exam Vitals/I&O's: Vital Signs Temp Pulse Resp BP Pulse Ox 98.0 F 76 18 109/73 97 07/15/20 09:04 07/15/20 09:04 07/15/20 09:04 07/15/20 09:04 07/15/20 09:04 Oxygen Flow Rate (L/min) 2 Oxygen Delivery Method Nasal Cannula Weight: 181 lb 7.047 oz Body Mass Index (BMI) 35.4 Finger Stick Blood Glucose 103 Intake and Output for Last 24 Hours 07/13/20 07/14/20 07/15/20 23:59 23:59 23:59 Intake Total 460.37 / 820.37 1349.88 / 1349.88 100 / 100 Output Total 6500 / 8150 8050 / 8050 300 / 300 Balance -6039.63 / -7329.63 -6700.12 / -6700.12 -200 / -200 Laboratory Results 07/14/20 10:55: Sodium 123 L 07/14/20 17:06: Sodium 126 L 07/15/20 06:13: WBC 10.5, RBC 3.22 L, Hgb 7.0 L, Hct 24.1 L, MCV 74.8 L, MCH 21.7 L, MCHC 29.0 L, RDW Std Deviation 48.6 H, RDW Coeff of Malini 17.8 H, Plt Count 273, MPV 8.7, Immature Gran % (Auto) 0.700, Neut % (Auto) 82.4 H, Lymph % (Auto) 8.3 L, [place] % (Auto) 8.5, Eos % (Auto) 0.1, Baso % (Auto) 0.0, Absolute Neuts (auto) 8.7 H, Absolute Lymphs (auto) 0.87, Nucleated RBC % 0.2 07/15/20 06:13: Sodium 126 L, Potassium 3.6, Chloride 82 L, Carbon Dioxide 42.0 H, Anion Gap 2 L, BUN 9, Creatinine 0.52 L, Estim Creat Clear Calc 43.27, Est GFR (MDRD) Af Amer 148, Est GFR (MDRD) Non-Af 122, BUN/Creatinine Ratio 17.2, Glucose 93, Calcium 8.6 Current Medications Acetaminophen (Tylenol) 650 mg PO Q6H PRN PRN PRN Reason: Pain Score 1-10/Temp > 100.7 F Al Hydroxide/Mg Hydroxide (Mylanta Ii) 30 ml PO Q6H PRN PRN PRN Reason: Gastric Burning Albuterol Sulfate (Ventolin Aerosols) 2.5 mg INHALATION Q2H PRN PRN PRN Reason: SOB/Wheezing Albuterol/Ipratropium (Duoneb) 3 ml INHALATION Q4H.RT [facility] Last Admin: 07/15/20 07:15 Dose: 3 ml Documented by: Calamine/Phenol (Calmoseptine Ointment) 1 applic TOPICAL BID [facility]; Protocol Last Admin: 07/15/20 09:11 Dose: 1 applicatio Documented by: Carvedilol (Coreg) 25 mg PO BID [facility] Last Admin: 07/15/20 09:07 Dose: 25 mg Documented by: Guaifenesin (Mucinex) 1,200 mg PO BID [facility] [place] Last Admin: 07/15/20 09:07 Dose: 1,200 mg Documented by: Lisinopril (Zestril) 10 mg PO DAILY [facility] Last Admin: 07/15/20 09:07 Dose: 10 mg Documented by: Melatonin (Melatonin) 3 mg PO QHS PRN PRN PRN Reason: INSOMNIA Morphine Sulfate () 2 mg IV Q3H PRN PRN PRN Reason: Pain Score 6-10/10 Nitroglycerin (Nitrostat) 0.4 mg SUBLINGUAL Q5M PRN PRN Reason: CARDIAC/CHEST PAIN Nutritional Formula (Lactose Free) (Ensure Enlive) 120 ml PO 4X/DAY [facility] Last Admin: 07/15/20 09:14 Dose: 120 ml Documented by: Nystatin (Mycostatin Powder) 1 applic TOPICAL TID [facility]; Protocol Last Admin: 07/15/20 05:58 Dose: 1 applicatio Documented by: Nystatin (Nystatin) 500,000 unit PO 4X/DAY [facility] [place] Last Admin: 07/15/20 09:11 Dose: 500,000 unit Documented by: Ondansetron HCl (Zofran) 4 mg IV Q8H PRN PRN PRN Reason: NAUSEA/VOMITING Oxycodone HCl (Oxyir) 5 mg PO Q4H PRN PRN PRN Reason: Pain Score 4-5/10 Potassium Chloride (K-Dur) 40 meq PO BID [facility] Stop: 07/16/20 07:41 Last Admin: 07/15/20 09:11 Dose: 40 meq Documented by: Prednisone () 40 mg PO DAILY@0800 [facility] Stop: 07/16/20 08:01 Last Admin: 07/15/20 09:11 Dose: 40 mg Documented by: Prochlorperazine Edisylate (Compazine Iv) 5 mg IV Q4H PRN PRN PRN Reason: Breakthrough Nausea/Vomiting Psyllium Hydrophilic Mucilloid (Metamucil) 1 packet PO DAILY [facility] Last Admin: 07/15/20 09:11 Dose: 1 packet Documented by: Senna/Docusate Sodium (Senokot-S, Yesenia-Colace) 2 tablet PO BID PRN PRN PRN Reason: Constipation Sodium Chloride () 10 - 40 ml IV UD PRN PRN Reason: SALINE FLUSH Last Admin: 07/14/20 05:49 Dose: 10 ml Documented by: Torsemide (Demadex) 100 mg PO DAILY [facility] Last Admin: 07/15/20 09:07 Dose: 100 mg Documented by: Home Medications: Medications to take at Discharge Multivit-Min/Iron/Folic/Lutein [Centrum Silver Women Tablet] 1 tab PO DAILY 10/05/19 albuterol sulfate 90 mcg/actuation aerosol inhaler 1 - 2 puff INHALATION Q4H PRN PRN #18 g 04/29/20 tiotropium bromide 2.5 mcg/actuation mist for inhalation 2 puff INHALATION BID #4 g 04/29/20 Carvedilol 25 mg PO BID 07/12/20 Fluticasone/Salmeterol [Advair Hfa 230-21 Mcg Inhaler] 2 puff INHALATION BID 09/22/20 Ketoconazole [Nizoral Cream] 1 applic TOPICAL DAILY 07/12/20 Nystatin Powder [Mycostatin Powder] 1 applic TOPICAL TID 07/12/20 Quinapril HCl [Accupril] 20 mg PO BID 07/12/20 Rivaroxaban [Xarelto] 20 mg PO DINNER 07/12/20 Terbinafine HCl 250 mg PO DAILY 07/12/20 Guaifenesin [Mucinex] 1,200 mg PO BID #14 tab 07/15/20 Magnesium Oxide 400 mg PO BID #60 tab 07/15/20 Potassium Chloride [K-Dur] 40 meq PO BID #60 tab 07/15/20 Torsemide [Demadex] 100 mg PO DAILY #30 tab 07/15/20 Following Prescriptions Were Given to Patient: Torsemide [Demadex] 100 mg PO DAILY #30 tab Transmission Status: Received by [facility] Potassium Chloride [K-Dur] 40 meq PO BID #60 tab Transmission Status: Received by [facility] Magnesium Oxide 400 mg PO BID #60 tab Transmission Status: Received by [facility] Guaifenesin [Mucinex] 1,200 mg PO BID #14 tab Transmission Status: Received by [facility] Primary Care Physician: Amber Sanders MD [Primary Care Provider] - Please follow up with your Primary Care Physician in: IN 2 WEEKS Please Follow Up With: Amber Sanedrs MD Please Follow Up With: Rusty Luo MD When: IN 2-4 WEEKS Please Follow Up With: Mark Campos DO When: in 4 weeks Please Follow Up With: Tony Ying MD When: in 2-3 weeks Medical Necessity - Tobacco Use Smoking Status: Current every day smoker Meaningful Use Info Meaningful Use Diagnoses (Choose all that apply): CHF - CHF EVELIN/ARB ordered at discharge?: Yes Documented LVEF (%): 55 Inpatient E&M: [id number] Disch Hosp
[2020-07-15] MEDS: Na Biphos/Potassium Phosphate PACKET 1 PACKET PO (11:09)
--- NOTE | 2020-07-15 13:41 | NURSING ---
Read and reviewed SN documentation
--- NOTE | 2020-07-15 15:10 | NURSING ---
Read and reviewed SN documentation
--- NOTE | 2020-07-18 14:14 | CASEMGMT ---
[facility] PHONE CALL DC DATE: 07/15/2020 DC Disposition: Home with [facility] Diagnosis on Discharge: Hyponatremia, anemia LACE/STRATA: 01/02 Call to [facility] to verify services. Start of care was opened 07/17/2020. Call to patient deferred. Andreea SARMIENTO RN [facility]
== END 2020-07-15 14:02 | disposition home health service (06) | DRG 292 ==
LOC: ED 11:06 → PCU 11:31
PROVIDERS: Internal Medicine Nephrology; Admitting Provider Internal Medicine; Emergency Provider Emergency Medicine; PCP Internal Medicine; Visit Provider Internal Medicine
DX: I11.0 Hypertensive heart disease with heart failure (principal); J96.11 Chronic respiratory failure with hypoxia; E87.1 Hypo-osmolality and hyponatremia; J44.1 Chronic obstructive pulmonary disease with (acute) exacerbation; I50.23 Acute on chronic systolic (congestive) heart failure; I42.8 Other cardiomyopathies; I48.0 Paroxysmal atrial fibrillation; D64.9 Anemia, unspecified; E87.6 Hypokalemia; T50.1X5A Adverse effect of loop [high-ceiling] diuretics, initial encounter; Y92.9 Unspecified place or not applicable; I49.3 Ventricular premature depolarization; I36.1 Nonrheumatic tricuspid (valve) insufficiency; I34.0 Nonrheumatic mitral (valve) insufficiency; I27.21 Secondary pulmonary arterial hypertension; F17.210 Nicotine dependence, cigarettes, uncomplicated; Z99.81 Dependence on supplemental oxygen; Z79.01 Long term (current) use of anticoagulants; Z79.899 Other long term (current) drug therapy; Z85.3 Personal history of malignant neoplasm of breast; Z85.118 Personal history of other malignant neoplasm of bronchus and lung; Z92.3 Personal history of irradiation
CPT/HCPCS: 36415; 71045; 80048; 80053; 80061; 82533; 83605; 83735; 83880; 84100; 84295; 84484; 85025; 85610; 85730; 87635; 93005; 94640; 97110; 97116; 97162; 97166; 97530; 97535; 97802; 99251; 99285; 99406; A4216; G0463; J1940; U0003

== ENCOUNTER 2020-12-14 09:50 | Outpatient (RCR) | payer MEDICARE, OTHER, SELFPAY ==
[2020-07-29 13:02] VITALS: BMI 28.7
[2020-12-14 10:07] VITALS: BP 122/50; PULSE 78; TEMP 36.4; BMI 28.7
--- NOTE | 2020-12-14 11:38 | PCM.WC.PN ---
(1) Bilateral cellulitis of lower leg Status: Acute Code(s): L03.116 - Cellulitis of left lower limb; L03.115 - Cellulitis of right lower limb (2) Acute on chronic systolic heart failure Status: Acute (3) Anemia Status: Acute Qualifiers: Anemia type: due to chronic kidney disease Code(s): D64.9 - Anemia, unspecified (4) COPD exacerbation Status: Chronic (5) Acute on chronic systolic (congestive) heart failure Status: Chronic Code(s): I50.23 - Acute on chronic systolic (congestive) heart failure (6) Chronic anticoagulation Status: Chronic Code(s): Z79.01 - group home (current) use of anticoagulants (7) History of breast cancer Status: Chronic Code(s): Z85.3 - Personal history of malignant neoplasm of breast (8) Paroxysmal atrial fibrillation Status: Chronic Code(s): I48.0 - Paroxysmal atrial fibrillation (9) Tobacco abuse Status: Chronic Code(s): Z72.0 - Tobacco use Type of Wound Date of Service: 12/14/20 Chief Complaint: Bilateral lower extremity swelling and edema History of Wound: This is a 75-year-old female with a longstanding history of chronic swelling and edema in her lower extremities bilaterally. She has previously been treated at this facility for the symptoms. According to the patient, the swelling and edema in her lower extremities became much more severe just within the last 2 weeks. She has been having problems since 21 October and now she is developed open sores on her calfs. She states she is allergic to the wraps. The patient chronically sleeps in a chair, due to back problems. She is ambulatory, but not very active. She spends long hours each day in a sitting position. She suffers from multiple pre-existing medical problems, as detailed elsewhere. In the past, she has developed ulcerations in her lower extremities due to the severe swelling and edema. She has previously been prescribed graduated compression stockings, which she has not been wearing. Her iso coordinator, Dr. Jovel, has previously prescribed a diuretic, but the patient has been noncompliant in taking the medication. Of note, a noninvasive lower extremity arterial study performed on November 03, 2019, revealed no evidence of significant arterial occlusive disease in the lower extremities. The patient was hospitalized in April 2020 for approximately 4 days in treatment for congestive heart failure. The patient is debilitated, and relatively immobile. Her ambulatory capacity is extremely limited. She sits throughout the day, and sleeps in a chair in an upright position at night. The patient denies a history of lower extremity thrombophlebitis. Progress of Wound: The wounds on the left lower ankle area are superficial right posterior calf are a little bit deeper with some slough. Patient's skin is so edematous it is wrinkling into her toes with fluid. - Physical Exam Vital Signs Temp Pulse BP 97.5 F L 78 122/50 H 12/14/20 10:07 12/14/20 10:07 12/14/20 10:07 General: Oriented x3, Cooperative, Well developed HEENT: Atraumatic, PERRLA Oral: Moist Mucosa Neck: Supple, No JVD Lungs: Clear to auscultation, Normal air movement Cardiovascular: Regular rate, Regular Rhythm Abdomen: Bowel Sounds Present, Soft, Non Tender, No Hepato-splenomegaly Extremities: No clubbing, No edema Wound Measurements and Assessment WC - Nurse 1 - General Ulcer Measurement Start: 12/14/20 10:07 Freq: Status: Active Protocol: Activity Type Activity Date Activity User E-Sign Co-Sign Detail Recorded Client Recorded Date Recorded By Document 12/14/20 10:07 EVERETT [id number] 12/14/20 10:29 EVERETT 12/14/20 10:07 Wound Center Nurse 1 [Ulcer Assessment] # 5 Right calf -Current Size (cm) - Length 5.5 -Current Size (cm) - Width 3 -Current Size (cm) - Depth 0.1 -Total Square Cm 16.5 -Exudate Amt Medium -Exudate Type Serosanguineous -Wound Margin Distinct, Outline Attached -Granulation Amt Medium (34-66%) -Granulation Quality Red -Necrosis Amt Medium (34-66%) -Necrotic Tissue Type Adherent Slough -Texture (Yesenia-wound Skin Appearance) Assessed, Scarring -Moisture (Yesenia-wound Skin Appearance Assessed, ) Maceration -Color (Yesenia-wound Skin Appearance) No Abnormality, Assessed -Temperature (Yesenia-wound Skin No Abnormality Appearance) (Pt Warm) -Tenderness on Palpation (Yesenia-wound No Skin Appearance) -Ulcer Cleansing Rinsed/ Irrigated with Saline -Foul Odor after Cleansing No -Anesthetic Used 4% Lidocaine Solution #4 Left Calf -Current Size (cm) - Length 6.2 -Current Size (cm) - Width 5.5 -Current Size (cm) - Depth 0.1 -Total Square Cm 34.10 -Exudate Amt Medium -Exudate Type Serosanguineous -Wound Margin Distinct, Outline Attached -Granulation Amt Medium (34-66%) -Granulation Quality Red -Necrosis Amt Medium (34-66%) -Necrotic Tissue Type Adherent Slough -Texture (Yesenia-wound Skin Appearance) Assessed, Scarring -Moisture (Yesenia-wound Skin Appearance Assessed ) -Color (Yesenia-wound Skin Appearance) No Abnormality, Assessed -Temperature (Yesenia-wound Skin No Abnormality Appearance) (Pt Warm) -Tenderness on Palpation (Yesenia-wound No Skin Appearance) -Ulcer Cleansing Rinsed/ Irrigated with Saline -Foul Odor after Cleansing No -Anesthetic Used 4% Lidocaine Solution [Edema Assessment] -Right Calf (cm) 42.5 -Right Ankle (cm) 27 -Left Calf (cm) 47 -Left Ankle (cm) 28 WC - Nurse 2 - General Ulcer CM Notes Start: 12/14/20 10:07 Freq: Status: Active Protocol: Activity Type Activity Date Activity User E-Sign Co-Sign Detail Recorded Client Recorded Date Recorded By Document 12/14/20 10:45 MW [id number] 12/14/20 10:53 MW 12/14/20 10:45 Wound Center Nurse 2 [Procedure/Treatment] # 5 Right calf -Time 10:51 -Correct Patient Yes -Correct Side, Site, Position Yes -Correct Procedure Yes -Procedure Performed Yes -Type of Procedure Debridement -Clinical Debridement Subcutaneous -Tissue Removed Subcutaneous -Post Debridement (cm) - Length 5.0 -Post Debridement (cm) - Width 2.5 -Post Debridement (cm) - Depth 0.1 -Total Square (Post) (cm) 12.50 -Area of Debridement (cm) - Length 5.0 -Area of Debridement (cm) - Width 2.5 -Total Square (Area) (cm) 12.50 -Tunneling No -Undermining/Tunneling No -Circular Undermining No -Wound/Ulcer Outcome Not Healed -Ulcer Cleansing Rinsed/ Irrigated with Saline -Foul Odor after Cleansing No -Bioengineered Tissue No -Bleeding Controlled with Pressure -Offloading No -Debridement - Subq, 1st 20sq cm Yes #4 Left Calf -Time 10:51 -Correct Patient Yes -Correct Side, Site, Position Yes -Correct Procedure Yes -Procedure Performed No -Post Debridement (cm) - Length 6.5 -Post Debridement (cm) - Width 5.5 -Post Debridement (cm) - Depth 0.1 -Total Square (Post) (cm) 35.75 -Wound/Ulcer Outcome Not Healed [See Physician Procedure note for Specifics] Pain Scale: 0-10 Numeric [Pain] -Is Patient Pain Free? Yes ALEIDA - Nurse 3 - General Ulcer D/C NN Start: 12/14/20 10:07 Freq: Status: Active Protocol: Activity Type Activity Date Activity User E-Sign Co-Sign Detail Recorded Client Recorded Date Recorded By Document 12/14/20 11:18 [facility] [id number] 12/14/20 11:19 [facility] 12/14/20 11:18 Wound Care Nurse 3 [Wound Dressing] # 5 Right calf -Ulcer Cleansing Rinsed/ Irrigated with Saline -Foul Odor after Cleansing No -Primary Dressing Applied NonAdherent Contact Layer -Other Dressing xeroform -Primary Dressing Covered/Secured Dry Gauze & with Roll Gauze, Secured with Tape,Other -Other Covering abd #4 Left Calf -Ulcer Cleansing Rinsed/ Irrigated with Saline -Foul Odor after Cleansing No -Primary Dressing Applied NonAdherent Contact Layer -Other Dressing xeroform -Primary Dressing Covered/Secured Dry Gauze & with Roll Gauze, Secured with Tape,Other -Other Covering abd [Compression Applied] Right -Compression Wrap Douglas Wrap -Tubular Bandage Single Layer -Size of Tubigrip Used Size F -Size F ($) 2 -Other sent extra Left -Compression Wrap Douglas Wrap -Tubular Bandage Single Layer -Size of Tubigrip Used Size F -Size F ($) 2 -Other sent extra Pain Scale: 0-10 Numeric [Pain] -Is Patient Pain Free? Yes WC - Visit Discharge [Visit Discharge Information] -Discharge Condition Stable -Ambulatory Status Wheelchair -Transportation Private Auto -Accompanied by [Facility Notification] -Facility Type Home Health Musculoskeletal: No Tenderness to Palpation of Joints or Extremities Lymphatic: No Cervical, Supraclavicular, or Inguinal Adenopathy Neurological: Cranial nerves II-XII grossly intact, Neuro grossly intact Psych/Mental Status: Normal Affect, Appropriate Debridement Note Post-Debridement Measurements/Treatment ALEIDA - Nurse 2 - General Ulcer CM Notes Start: 12/14/20 10:07 Freq: Status: Active Protocol: Activity Type Activity Date Activity User E-Sign Co-Sign Detail Recorded Client Recorded Date Recorded By Document 12/14/20 10:45 MW [id number] 12/14/20 10:53 MW 12/14/20 10:45 Wound Center Nurse 2 # 5 Right calf -Time 10:51 -Correct Patient Yes -Correct Side, Site, Position Yes -Correct Procedure Yes -Procedure Performed Yes -Type of Procedure Debridement -Clinical Debridement Subcutaneous -Tissue Removed Subcutaneous -Post Debridement (cm) - Length 5.0 -Post Debridement (cm) - Width 2.5 -Post Debridement (cm) - Depth 0.1 -Total Square (Post) (cm) 12.50 -Area of Debridement (cm) - Length 5.0 -Area of Debridement (cm) - Width 2.5 -Total Square (Area) (cm) 12.50 -Tunneling No -Undermining/Tunneling No -Circular Undermining No -Wound/Ulcer Outcome Not Healed -Ulcer Cleansing Rinsed/ Irrigated with Saline -Foul Odor after Cleansing No -Bioengineered Tissue No -Bleeding Controlled with Pressure -Offloading No -Debridement - Subq, 1st 20sq cm Yes #4 Left Calf -Time 10:51 -Correct Patient Yes -Correct Side, Site, Position Yes -Correct Procedure Yes -Procedure Performed No -Post Debridement (cm) - Length 6.5 -Post Debridement (cm) - Width 5.5 -Post Debridement (cm) - Depth 0.1 -Total Square (Post) (cm) 35.75 -Wound/Ulcer Outcome Not Healed Pain Scale: 0-10 Numeric Is Patient Pain Free? Yes - Nurse 3 - General Ulcer D/C NN Start: 12/14/20 10:07 Freq: Status: Active Protocol: Activity Type Activity Date Activity User E-Sign Co-Sign Detail Recorded Client Recorded Date Recorded By Document 12/14/20 11:18 [facility] [id number] 12/14/20 11:19 [facility] 12/14/20 11:18 Wound Care Nurse 3 # 5 Right calf -Ulcer Cleansing Rinsed/ Irrigated with Saline -Foul Odor after Cleansing No -Primary Dressing Applied NonAdherent Contact Layer -Other Dressing xeroform -Primary Dressing Covered/Secured with Dry Gauze & Roll Gauze, Secured with Tape,Other -Other Covering abd #4 Left Calf -Ulcer Cleansing Rinsed/ Irrigated with Saline -Foul Odor after Cleansing No -Primary Dressing Applied NonAdherent Contact Layer -Other Dressing xeroform -Primary Dressing Covered/Secured with Dry Gauze & Roll Gauze, Secured with Tape,Other -Other Covering abd Right -Compression Wrap Douglas Wrap -Tubular Bandage Single Layer -Size of Tubigrip Used Size F -Size F ($) 2 -Other sent extra Left -Compression Wrap Douglas Wrap -Tubular Bandage Single Layer -Size of Tubigrip Used Size F -Size F ($) 2 -Other sent extra Pain Scale: 0-10 Numeric Is Patient Pain Free? Yes WC - Visit Discharge Discharge Condition Stable Ambulatory Status Wheelchair Transportation Private Auto Accompanied by Facility Type Home Health Assessment/Plan Assessment: This is a 74-year-old female who presented with severe swelling and edema in her lower extremities. She is also known to suffer from congestive heart failure. The patient is relatively immobile. She sits for long hours each day. Due to her pre-existing medical problems, she also sleeps in a chair, sitting in an upright position. Thus, it appears as though the swelling and edema in her lower extremities is largely related to dependency and a lack of activity. A noninvasive lower extremity arterial study has been performed earlier this year, revealing no evidence of arterial occlusive disease in the lower extremities. A regimen appropriate to the long-term management of the patient's lower extremity swelling has been previously detailed. However, the patient has been largely noncompliant. She had been prescribed graduated compression stockings, and advised to elevate her lower extremities much as possible. She had been told to avoid prolonged idle sitting. Activity had been encouraged. Plan: A lengthy discussion has been undertaken with the patient and her once again. The importance of leg elevation has been strongly stressed. Patient has been encouraged to elevate her lower extremities much as possible. It has been stressed that the patient should position her legs to the same level as her heart, or higher. This should be accomplished as much as possible. She has been encouraged to sleep on a flat surface at night, or at least with her legs at the same level as her heart. Activity has been encouraged. Prolonged idle sitting has been discouraged. We are to implement the use of multilayer Unna boots bilaterally, in light of the erythema which has developed within the last week. The Unna boots will be changed twice weekly. The patient and her have been advised to collaborate with her iso coordinator, and informed that the measures implemented may create an enhanced venous return to her heart, and could result in symptoms of congestive heart failure. Therefore, the patient has been advised to collaborate closely with her iso coordinator. The patient is to return in 1 week for reassessment. Influenza vaccine was not administered. The patient is a smoker, and has been advised to quit. Hazards of smoking have been explained. The patient weighs 150 pounds. She stands 5 feet 4 inches tall. Her BMI is 25.7, which places her in the overweight category. Weight optimization has been recommended.
--- NOTE | 2020-12-14 11:49 | PCM.WC.HP ---
(1) Bilateral cellulitis of lower leg Status: Acute Code(s): L03.116 - Cellulitis of left lower limb; L03.115 - Cellulitis of right lower limb (2) Acute on chronic systolic heart failure Status: Acute (3) Anemia Status: Acute Qualifiers: Anemia type: due to chronic kidney disease Code(s): D64.9 - Anemia, unspecified (4) COPD exacerbation Status: Chronic (5) Acute on chronic systolic (congestive) heart failure Status: Chronic Code(s): I50.23 - Acute on chronic systolic (congestive) heart failure (6) Chronic anticoagulation Status: Chronic Code(s): Z79.01 - long term care phlebotomist (current) use of anticoagulants (7) History of breast cancer Status: Chronic Code(s): Z85.3 - Personal history of malignant neoplasm of breast (8) Paroxysmal atrial fibrillation Status: Chronic Code(s): I48.0 - Paroxysmal atrial fibrillation (9) Tobacco abuse Status: Chronic Code(s): Z72.0 - Tobacco use History of Present Illness Date of Service: 12/14/20 Chief Complaint: Bilateral lower extremity swelling and edema History of Wound: This is a 75-year-old female with a longstanding history of chronic swelling and edema in her lower extremities bilaterally. She has previously been treated at this facility for the symptoms. According to the patient, the swelling and edema in her lower extremities became much more severe just within the last 2 weeks. The patient chronically sleeps in a chair, due to back problems. She is ambulatory, but not very active. She spends long hours each day in a sitting position. She suffers from multiple pre-existing medical problems, as detailed elsewhere. In the past, she has developed ulcerations in her lower extremities due to the severe swelling and edema. She has previously been prescribed graduated compression stockings, which she has not been wearing. Her media analytics manager, Dr. Jovel, has previously prescribed a diuretic doses with problems now with sodium and potassium levels. Of note, a noninvasive lower extremity arterial study performed on November 03, 2019, revealed no evidence of significant arterial occlusive disease in the lower extremities. The patient was hospitalized in April 2020 for approximately 4 days in treatment for congestive heart failure. The patient is debilitated, and relatively immobile. Her ambulatory capacity is extremely limited. She sits throughout the day, and sleeps in a chair in an upright position at night. The patient denies a history of lower extremity thrombophlebitis. The sores on her legs have started in October [id number]. Past Medical History Past Medical History: Chronic Problems (Last Reviewed 01/25/20 @ 10:49 by Jayleen Burr REPORT MANAGER, REPORT MANAGER-C) COPD exacerbation (Chronic) Leg edema (Chronic) Non-small cell lung cancer (Chronic) Chronic respiratory failure with hypoxia (Chronic) Tobacco abuse (Chronic) Tobacco abuse counseling (Chronic) Dependent edema (Chronic) Bilateral leg ulcer (Chronic) Non-ischemic cardiomyopathy (Chronic) Paroxysmal atrial fibrillation (Chronic) Acute on chronic systolic (congestive) heart failure (Chronic) Secondary pulmonary arterial hypertension (Chronic) Non-rheumatic tricuspid valve insufficiency (Chronic) Nonrheumatic mitral (valve) insufficiency (Chronic) Essential (primary) hypertension (Chronic) Lung mass (Chronic) History of breast cancer (Chronic) COPD (chronic obstructive pulmonary disease) (Chronic) Nicotine dependence (Chronic) Chronic anticoagulation (Chronic) Surgical History: noncontributory, mastectomy, - - The patient has previously undergone a left mastectomy, right breast lumpectomy, and resection of a left pulmonary nodule. She also has undergone tubal ligation. She is a Ab0. Allergies/Adverse Reactions: Allergies albuterol sulfate [From Combivent] Allergy (Verified 07/29/20 13:02) Swelling ipratropium bromide [From Combivent] Allergy (Verified 07/29/20 13:02) Swelling metoprolol Allergy (Verified 07/29/20 13:02) Laryngospasms Sulfa (Sulfonamide Antibiotics) Allergy (Verified 07/29/20 13:02) Rash beclomethasone [From Qvar] Adverse Reaction (Verified 07/29/20 13:02) COUGHING benzalkonium chloride [From Merthiolate (benzalkonium)] Adverse Reaction (Verified 07/29/20 13:02) Rash codeine Adverse Reaction (Verified 07/29/20 13:02) Chest tightness chest hurts doxycycline Adverse Reaction (Verified 07/29/20 13:02) Abd cramps/diarrhea formoterol fumarate [From Dulera] Adverse Reaction (Verified 07/29/20 13:02) PT UNSURE OF REACTION hydrochlorothiazide Adverse Reaction (Verified 07/29/20 13:02) PT UNSURE OF REACTION ibuprofen [From Advil] Adverse Reaction (Verified 07/29/20 13:02) PT UNSURE OF REACTION iodine Adverse Reaction (Verified 07/29/20 13:02) Itching merbromin Adverse Reaction (Verified 07/29/20 13:02) PT UNSURE OF REACTION mometasone furoate [From Dulera] Adverse Reaction (Verified 07/29/20 13:02) PT UNSURE OF REACTION oseltamivir [From Tamiflu] Adverse Reaction (Verified 07/29/20 13:02) uterine pain prednisone Adverse Reaction (Verified 07/29/20 13:02) Abd cramps/diarrhea PLASTIC TAPE Allergy (Uncoded 07/12/20 09:35) Rash Home Medications: Ambulatory Orders Medication Instructions Recorded Multivit-Min/Iron/Folic/Lutein 1 tab PO DAILY 10/05/19 [Centrum Silver Women Tablet] albuterol sulfate 90 mcg/actuation 1 - 2 puff INHALATION Q4H PRN PRN 04/29/20 aerosol inhaler #18 g Carvedilol 25 mg PO BID 07/12/20 Fluticasone/Salmeterol [Advair Hfa 2 puff INHALATION BID 07/12/20 230-21 Mcg Inhaler] Ferrous Sulfate 325 mg PO BID #60 tab 07/15/20 Guaifenesin [Mucinex] 1,200 mg PO BID #14 tab 07/15/20 Lisinopril [Prinivil] 10 mg PO DAILY #30 tab 07/15/20 Potassium Chloride Oral Tablet 40 meq PO BID #60 tab 07/15/20 [K-Dur] Torsemide [Demadex] 100 mg PO DAILY #30 tab 07/15/20 - Family History Maternal Family History: Family History (Last Reviewed 01/25/20 @ 10:49 by Jayleen Burr NP, REPORT MANAGER-C) Father Emphysema of lung Sister Cancer No pertinent history Paternal Family History: Family History (Last Reviewed 01/25/20 @ 10:49 by Jayleen Burr NP, REPORT MANAGER-C) Father Emphysema of lung Sister Cancer No pertinent history Lives: Spouse/ Significant Other Smoking Status: Current every day smoker - He states she does not inhale 1/2 pack a day Review of Systems Constitutional: Denies: Chills, Fever Eyes: Denies: Blurred vision, Drainage, Pain HEENT: Denies: Difficulty Hearing, Difficulty Swallowing, Sore Throat, Visual Changes Cardiovascular: Denies: Chest Pain, Palpitations, Syncope Respiratory: Reports: Cough. Denies: Shortness of Breath, Wheezing Gastrointestinal: Denies: Abdominal Pain, Nausea, Vomiting Genitourinary: Denies: Dysuria, Frequency Musculoskeletal: Denies: Joint Pain, Muscle pain Skin: Reports: Wounds - Lower extremity bilateral left anterior right posterior. Right posterior is some depth with slough. Denies: Jaundice, Rash Neurological: Denies: Balance problems, Change in Speech, Difficulty swallowing, Focal weakness Psychiatric: Denies: Anxiety, Depression Endocrine: Denies: Change in Body Habitus Hematologic/ Lymphatic: Denies: Adenopathy - Physical Exam Vital Signs Temp Pulse BP 97.5 F L 78 122/50 H 12/14/20 10:07 12/14/20 10:07 12/14/20 10:07 General: Oriented x3, Cooperative, Well developed HEENT: Atraumatic, PERRLA Oral: Moist Mucosa Neck: Supple, No JVD Lungs: Clear to auscultation, Normal air movement Cardiovascular: Regular rate, No murmurs, Irregular Rate Abdomen: Bowel Sounds Present, Soft, Non Tender, No Hepato-splenomegaly Extremities: No clubbing, Diminished Peripheral Pulses, Edema, - - Wounds left anterior right posterior Skin: Ulcer/ Wound Wound Measurements and Assessment WC - Nurse 1 - General Ulcer Measurement Start: 12/14/20 10:07 Freq: Status: Active Protocol: Activity Type Activity Date Activity User E-Sign Co-Sign Detail Recorded Client Recorded Date Recorded By Document 12/14/20 10:07 [facility]ER[facility]T [id number] 12/14/20 10:29 EVERETT 12/14/20 10:07 Wound Center Nurse 1 [Ulcer Assessment] # 5 Right calf -Current Size (cm) - Length 5.5 -Current Size (cm) - Width 3 -Current Size (cm) - Depth 0.1 -Total Square Cm 16.5 -Exudate Amt Medium -Exudate Type Serosanguineous -Wound Margin Distinct, Outline Attached -Granulation Amt Medium (34-66%) -Granulation Quality Red -Necrosis Amt Medium (34-66%) -Necrotic Tissue Type Adherent Slough -Texture (Yesenia-wound Skin Appearance) Assessed, Scarring -Moisture (Yesenia-wound Skin Appearance Assessed, ) Maceration -Color (Yesenia-wound Skin Appearance) No Abnormality, Assessed -Temperature (Yesenia-wound Skin No Abnormality Appearance) (Pt Warm) -Tenderness on Palpation (Yesenia-wound No Skin Appearance) -Ulcer Cleansing Rinsed/ Irrigated with Saline -Foul Odor after Cleansing No -Anesthetic Used 4% Lidocaine Solution #4 Left Calf -Current Size (cm) - Length 6.2 -Current Size (cm) - Width 5.5 -Current Size (cm) - Depth 0.1 -Total Square Cm 34.10 -Exudate Amt Medium -Exudate Type Serosanguineous -Wound Margin Distinct, Outline Attached -Granulation Amt Medium (34-66%) -Granulation Quality Red -Necrosis Amt Medium (34-66%) -Necrotic Tissue Type Adherent Slough -Texture (Yesenia-wound Skin Appearance) Assessed, Scarring -Moisture (Yesenia-wound Skin Appearance Assessed ) -Color (Yesenia-wound Skin Appearance) No Abnormality, Assessed -Temperature (Yesenia-wound Skin No Abnormality Appearance) (Pt Warm) -Tenderness on Palpation (Yesenia-wound No Skin Appearance) -Ulcer Cleansing Rinsed/ Irrigated with Saline -Foul Odor after Cleansing No -Anesthetic Used 4% Lidocaine Solution [Edema Assessment] -Right Calf (cm) 42.5 -Right Ankle (cm) 27 -Left Calf (cm) 47 -Left Ankle (cm) 28 WC - Nurse 2 - General Ulcer CM Notes Start: 12/14/20 10:07 Freq: Status: Active Protocol: Activity Type Activity Date Activity User E-Sign Co-Sign Detail Recorded Client Recorded Date Recorded By Document 12/14/20 10:45 MW [id number] 12/14/20 10:53 MW 12/14/20 10:45 Wound Center Nurse 2 [Procedure/Treatment] # 5 Right calf -Time 10:51 -Correct Patient Yes -Correct Side, Site, Position Yes -Correct Procedure Yes -Procedure Performed Yes -Type of Procedure Debridement -Clinical Debridement Subcutaneous -Tissue Removed Subcutaneous -Post Debridement (cm) - Length 5.0 -Post Debridement (cm) - Width 2.5 -Post Debridement (cm) - Depth 0.1 -Total Square (Post) (cm) 12.50 -Area of Debridement (cm) - Length 5.0 -Area of Debridement (cm) - Width 2.5 -Total Square (Area) (cm) 12.50 -Tunneling No -Undermining/Tunneling No -Circular Undermining No -Wound/Ulcer Outcome Not Healed -Ulcer Cleansing Rinsed/ Irrigated with Saline -Foul Odor after Cleansing No -Bioengineered Tissue No -Bleeding Controlled with Pressure -Offloading No -Debridement - Subq, 1st 20sq cm Yes #4 Left Calf -Time 10:51 -Correct Patient Yes -Correct Side, Site, Position Yes -Correct Procedure Yes -Procedure Performed No -Post Debridement (cm) - Length 6.5 -Post Debridement (cm) - Width 5.5 -Post Debridement (cm) - Depth 0.1 -Total Square (Post) (cm) 35.75 -Wound/Ulcer Outcome Not Healed [See Physician Procedure note for Specifics] Pain Scale: 0-10 Numeric [Pain] -Is Patient Pain Free? Yes - Nurse 3 - General Ulcer D/C NN Start: 12/14/20 10:07 Freq: Status: Active Protocol: Activity Type Activity Date Activity User E-Sign Co-Sign Detail Recorded Client Recorded Date Recorded By Document 12/14/20 11:18 [facility] [id number] 12/14/20 11:19 [facility] 12/14/20 11:18 Wound Care Nurse 3 [Wound Dressing] # 5 Right calf -Ulcer Cleansing Rinsed/ Irrigated with Saline -Foul Odor after Cleansing No -Primary Dressing Applied NonAdherent Contact Layer -Other Dressing xeroform -Primary Dressing Covered/Secured Dry Gauze & with Roll Gauze, Secured with Tape,Other -Other Covering abd #4 Left Calf -Ulcer Cleansing Rinsed/ Irrigated with Saline -Foul Odor after Cleansing No -Primary Dressing Applied NonAdherent Contact Layer -Other Dressing xeroform -Primary Dressing Covered/Secured Dry Gauze & with Roll Gauze, Secured with Tape,Other -Other Covering abd [Compression Applied] Right -Compression Wrap Douglas Wrap -Tubular Bandage Single Layer -Size of Tubigrip Used Size F -Size F ($) 2 -Other sent extra Left -Compression Wrap Douglas Wrap -Tubular Bandage Single Layer -Size of Tubigrip Used Size F -Size F ($) 2 -Other sent extra Pain Scale: 0-10 Numeric [Pain] -Is Patient Pain Free? Yes - Visit Discharge [Visit Discharge Information] -Discharge Condition Stable -Ambulatory Status Wheelchair -Transportation Private Auto -Accompanied by [Facility Notification] -Facility Type Home Health Musculoskeletal: No Tenderness to Palpation of Joints or Extremities Lymphatic: No Cervical, Supraclavicular, or Inguinal Adenopathy Neurological: Cranial nerves II-XII grossly intact, Neuro grossly intact Psych/Mental Status: Normal Affect, Appropriate, Alert and oriented to time, place, person, mood and affect Debridement Note Post-Debridement Measurements/Treatment WC - Nurse 2 - General Ulcer CM Notes Start: 12/14/20 10:07 Freq: Status: Active Protocol: Activity Type Activity Date Activity User E-Sign Co-Sign Detail Recorded Client Recorded Date Recorded By Document 12/14/20 10:45 MW [id number] 12/14/20 10:53 MW 12/14/20 10:45 Wound Center Nurse 2 # 5 Right calf -Time 10:51 -Correct Patient Yes -Correct Side, Site, Position Yes -Correct Procedure Yes -Procedure Performed Yes -Type of Procedure Debridement -Clinical Debridement Subcutaneous -Tissue Removed Subcutaneous -Post Debridement (cm) - Length 5.0 -Post Debridement (cm) - Width 2.5 -Post Debridement (cm) - Depth 0.1 -Total Square (Post) (cm) 12.50 -Area of Debridement (cm) - Length 5.0 -Area of Debridement (cm) - Width 2.5 -Total Square (Area) (cm) 12.50 -Tunneling No -Undermining/Tunneling No -Circular Undermining No -Wound/Ulcer Outcome Not Healed -Ulcer Cleansing Rinsed/ Irrigated with Saline -Foul Odor after Cleansing No -Bioengineered Tissue No -Bleeding Controlled with Pressure -Offloading No -Debridement - Subq, 1st 20sq cm Yes #4 Left Calf -Time 10:51 -Correct Patient Yes -Correct Side, Site, Position Yes -Correct Procedure Yes -Procedure Performed No -Post Debridement (cm) - Length 6.5 -Post Debridement (cm) - Width 5.5 -Post Debridement (cm) - Depth 0.1 -Total Square (Post) (cm) 35.75 -Wound/Ulcer Outcome Not Healed Pain Scale: 0-10 Numeric Is Patient Pain Free? Yes ALEIDA - Nurse 3 - General Ulcer D/C NN Start: 12/14/20 10:07 Freq: Status: Active Protocol: Activity Type Activity Date Activity User E-Sign Co-Sign Detail Recorded Client Recorded Date Recorded By Document 12/14/20 11:18 [facility] [id number] 12/14/20 11:19 [facility] 12/14/20 11:18 Wound Care Nurse 3 # 5 Right calf -Ulcer Cleansing Rinsed/ Irrigated with Saline -Foul Odor after Cleansing No -Primary Dressing Applied NonAdherent Contact Layer -Other Dressing xeroform -Primary Dressing Covered/Secured with Dry Gauze & Roll Gauze, Secured with Tape,Other -Other Covering abd #4 Left Calf -Ulcer Cleansing Rinsed/ Irrigated with Saline -Foul Odor after Cleansing No -Primary Dressing Applied NonAdherent Contact Layer -Other Dressing xeroform -Primary Dressing Covered/Secured with Dry Gauze & Roll Gauze, Secured with Tape,Other -Other Covering abd Right -Compression Wrap Douglas Wrap -Tubular Bandage Single Layer -Size of Tubigrip Used Size F -Size F ($) 2 -Other sent extra Left -Compression Wrap Douglas Wrap -Tubular Bandage Single Layer -Size of Tubigrip Used Size F -Size F ($) 2 -Other sent extra Pain Scale: 0-10 Numeric Is Patient Pain Free? Yes WC - Visit Discharge Discharge Condition Stable Ambulatory Status Wheelchair Transportation Private Auto Accompanied by Facility Type Home Health Wound debrided: Right posterior Type of Debridement: Excisional debridement Anesthesia Used: 5% Lidocaine Gel Depth: Down to and including healthy tissue, in the subcutaneous layer Percentage of wound debrided: 100 Instrument Used: 5mm curette Tissue Removed: Slough Severity: Fat Layer Exposed Amount of bleeding with debridement: Mild Bleeding Controlled with: Compression and gauze Patient tolerated procedure well Assessment/Plan Assessment: CHF with peripheral vascular disease. A. fib. Long-term use of blood thinners. Peripheral vascular disease with wounds Plan: Wash legs with antibacterial soap. Apply Xeroform dressing to left anterior right posterior leg cover with gauze and Yonis. Single to double layer Tubigrip with Douglas wraps over top. Follow-up in 1 week
== END 2020-12-18 23:59 ==
LOC: WC 09:50
PROVIDERS: PCP Internal Medicine; Visit Provider Nurse Practitioner
DX: R60.0 Localized edema (principal); J44.9 Chronic obstructive pulmonary disease, unspecified; L03.116 Cellulitis of left lower limb; L03.115 Cellulitis of right lower limb; I50.22 Chronic systolic (congestive) heart failure; I13.0 Hypertensive heart and chronic kidney disease with heart failure and stage 1 through stage 4 chronic kidney disease, or unspecified chronic kidney disease; N18.9 Chronic kidney disease, unspecified; D63.1 Anemia in chronic kidney disease; Z79.01 Long term (current) use of anticoagulants; I48.0 Paroxysmal atrial fibrillation; M79.89 Other specified soft tissue disorders; J96.11 Chronic respiratory failure with hypoxia; Z79.899 Other long term (current) drug therapy; F17.200 Nicotine dependence, unspecified, uncomplicated; I73.9 Peripheral vascular disease, unspecified; L97.212 Non-pressure chronic ulcer of right calf with fat layer exposed
CPT/HCPCS: 11042; 99213; G0463

== ENCOUNTER 2021-01-18 11:00 | Outpatient (RCR) | payer MEDICARE, OTHER, SELFPAY ==
[2020-12-19 00:40] VITALS: BP 122/50; PULSE 78; TEMP 36.4
[2020-12-21 09:54] VITALS: BP 132/69; PULSE 76; RESP 18; BMI 28.7
--- NOTE | 2020-12-21 10:18 | PN.PCM_ITS ---
(1) Acute on chronic systolic heart failure Status: Acute (2) Bilateral cellulitis of lower leg Status: Acute Code(s): L03.116 - Cellulitis of left lower limb; L03.115 - Cellulitis of right lower limb (3) Bilateral leg ulcer Status: Chronic Qualifiers: Non-pressure ulcer stage: limited to breakdown of skin Qualified Code(s): L97.911 - Non-pressure chronic ulcer of unspecified part of right lower leg limited to breakdown of skin; L97.921 - Non-pressure chronic ulcer of unspecified part of left lower leg limited to breakdown of skin Code(s): L97.919 - Non-pressure chronic ulcer of unspecified part of right lower leg with unspecified severity; L97.929 - Non-pressure chronic ulcer of unspecified part of left lower leg with unspecified severity (4) COPD (chronic obstructive pulmonary disease) Status: Chronic Qualifiers: Code(s): J44.9 - Chronic obstructive pulmonary disease, unspecified Type of Wound Date of Service: 12/21/20 Chief Complaint: Bilateral lower extremity swelling and edema History of Wound: This is a 75-year-old female with a longstanding history of chronic swelling and edema in her lower extremities bilaterally. She has previously been treated at this facility for the symptoms. According to the patient, the swelling and edema in her lower extremities became much more severe just within the last 2 weeks. The patient chronically sleeps in a chair, due to back problems. She is ambulatory, but not very active. She spends long hours each day in a sitting position. She suffers from multiple pre-existing medical problems, as detailed elsewhere. In the past, she has developed ulcerations in her lower extremities due to the severe swelling and edema. She has previously been prescribed graduated compression stockings, which she has not been wearing. Her renal dialysis rn, Dr. Jovel, has previously prescribed a diuretic doses with problems now with sodium and potassium levels. Of note, a noninvasive lower extremity arterial study performed on November 03, 2019, revealed no evidence of significant arterial occlusive disease in the lower extremities. The patient was hospitalized in April 2020 for approximately 4 days in treatment for congestive heart failure. The patient is debilitated, and relatively immobile. Her ambulatory capacity is extremely limited. She sits throughout the day, and sleeps in a chair in an upright position at night. The patient denies a history of lower extremity thrombophlebitis. The sores on her legs have started in October 212020. Progress of Wound: Today was able to debride all the slough out of the posterior bilateral lower legs. Wounds are about the same size but shallow. New using Xeroform and compression. Patient feels she is allergic to latex so we will put a stockinette on over her leg and then the Douglas wraps on top for her comfort. - Physical Exam Vital Signs Temp Pulse Resp BP 97.5 F L 76 18 132/69 H 12/19/20 00:40 12/21/20 09:54 12/21/20 09:54 12/21/20 09:54 General: Oriented x3, Cooperative, Well developed HEENT: Atraumatic, PERRLA Oral: Moist Mucosa Neck: Supple, No JVD Lungs: Clear to auscultation, Normal air movement Cardiovascular: Regular rate, Regular Rhythm Abdomen: Bowel Sounds Present, Soft, Non Tender, No Hepato-splenomegaly Extremities: No clubbing, Diminished Peripheral Pulses, Edema Skin: Rash Present Wound Measurements and Assessment WC - Nurse 1 - General Ulcer Measurement Start: 12/21/20 09:54 Freq: Status: Active Protocol: Activity Type Activity Date Activity User E-Sign Co-Sign Detail Recorded Client Recorded Date Recorded By Document 12/21/20 09:54 [facility] [id number] 12/21/20 10:00 [facility] 12/21/20 09:54 Wound Center Nurse 1 [Ulcer Assessment] # 5 Right calf -Combined with other wound No -Current Size (cm) - Length 5.6 -Current Size (cm) - Width 3.7 -Current Size (cm) - Depth 0.1 -Total Square Cm 20.72 -Photo Taken No -Epithelialization None Present -Tunneling No -Undermining/Tunneling No -Circular Undermining No -Exudate Amt Medium -Exudate Type Serosanguineous -Wound Margin Distinct, Outline Attached -Granulation Amt Medium (34-66%) -Granulation Quality Red -Slough/Fibrin Yes -Necrosis Amt Medium (34-66%) -Necrotic Tissue Type Adherent Slough -Texture (Yesenia-wound Skin Appearance) Assessed, Scarring -Moisture (Yesenia-wound Skin Appearance Assessed ) -Color (Yesenia-wound Skin Appearance) Assessed, Erythema -Temperature (Yesenia-wound Skin No Abnormality Appearance) (Pt Warm) -Tenderness on Palpation (Yesenia-wound No Skin Appearance) -Ulcer Cleansing Rinsed/ Irrigated with Saline -Foul Odor after Cleansing No -Anesthetic Used 4% Lidocaine Solution #4 Left Calf -Combined with other wound No -Current Size (cm) - Length 10.5 -Current Size (cm) - Width 7 -Current Size (cm) - Depth 0.1 -Total Square Cm 73.5 -Photo Taken No -Epithelialization None Present -Tunneling No -Undermining/Tunneling No -Circular Undermining No -Exudate Amt Medium -Exudate Type Serosanguineous -Wound Margin Distinct, Outline Attached -Granulation Amt Medium (34-66%) -Granulation Quality Red -Slough/Fibrin Yes -Necrosis Amt Medium (34-66%) -Necrotic Tissue Type Adherent Slough -Texture (Yesenia-wound Skin Appearance) Assessed, Scarring -Moisture (Yesenia-wound Skin Appearance Assessed, ) Maceration -Color (Yesenia-wound Skin Appearance) Assessed, Erythema,Palor -Temperature (Yesenia-wound Skin No Abnormality Appearance) (Pt Warm) -Tenderness on Palpation (Yesenia-wound No Skin Appearance) -Ulcer Cleansing Rinsed/ Irrigated with Saline -Foul Odor after Cleansing No -Anesthetic Used 4% Lidocaine Solution [Edema Assessment] -Lower Limb Edema Present Yes -Right Calf (cm) 39 -Right Ankle (cm) 23.5 -Left Calf (cm) 41 -Left Ankle (cm) 24.5 WC - Nurse 2 - General Ulcer CM Notes Start: 12/21/20 09:54 Freq: Status: Active Protocol: Activity Type Activity Date Activity User E-Sign Co-Sign Detail Recorded Client Recorded Date Recorded By Document 12/21/20 10:07 MW [id number] 12/21/20 10:12 MW 12/21/20 10:07 Wound Center Nurse 2 [Procedure/Treatment] # 5 Right calf -Time 10:07 -Correct Patient Yes -Correct Side, Site, Position Yes -Correct Procedure Yes -Procedure Performed Yes -Type of Procedure Debridement -Clinical Debridement Subcutaneous -Tissue Removed Subcutaneous -Post Debridement (cm) - Length 7.5 -Post Debridement (cm) - Width 2.8 -Post Debridement (cm) - Depth 0.1 -Total Square (Post) (cm) 21.00 -Area of Debridement (cm) - Length 7.5 -Area of Debridement (cm) - Width 2.8 -Total Square (Area) (cm) 21.00 -Tunneling No -Undermining/Tunneling No -Circular Undermining No -Wound/Ulcer Outcome Not Healed -Ulcer Cleansing Rinsed/ Irrigated with Saline -Foul Odor after Cleansing No -Bioengineered Tissue No -Bleeding Controlled with Pressure -Offloading No -Treatment Response Procedure Tolerated Well -Debridement - Subq, 1st 20sq cm Yes -Debridement, SubQ, ea addt'l 20sq cm 1 or part thereof #4 Left Calf -Time 10:08 -Correct Patient Yes -Correct Side, Site, Position Yes -Correct Procedure Yes -Procedure Performed Yes -Type of Procedure Debridement -Clinical Debridement Subcutaneous -Tissue Removed Subcutaneous -Post Debridement (cm) - Length 6.0 -Post Debridement (cm) - Width 5.0 -Post Debridement (cm) - Depth 0.1 -Total Square (Post) (cm) 30.00 -Area of Debridement (cm) - Length 6.0 -Area of Debridement (cm) - Width 5.0 -Total Square (Area) (cm) 30.00 -Tunneling No -Undermining/Tunneling No -Circular Undermining No -Wound/Ulcer Outcome Not Healed -Ulcer Cleansing Rinsed/ Irrigated with Saline -Foul Odor after Cleansing No -Bioengineered Tissue No -Bleeding Controlled with Pressure -Offloading No -Treatment Response Procedure Tolerated Well -Debridement - Subq, 1st 20sq cm No -Debridement, SubQ, ea addt'l 20sq cm 1 or part thereof [See Physician Procedure note for Specifics] Pain Scale: 0-10 Numeric [Pain] -Is Patient Pain Free? Yes Musculoskeletal: No Tenderness to Palpation of Joints or Extremities Lymphatic: No Cervical, Supraclavicular, or Inguinal Adenopathy Neurological: Cranial nerves II-XII grossly intact, Neuro grossly intact Psych/Mental Status: Normal Affect, Appropriate, Alert and oriented to time, place, person, mood and affect Debridement Note Post-Debridement Measurements/Treatment WC - Nurse 2 - General Ulcer CM Notes Start: 12/21/20 09:54 Freq: Status: Active Protocol: Activity Type Activity Date Activity User E-Sign Co-Sign Detail Recorded Client Recorded Date Recorded By Document 12/21/20 10:07 MW [id number] 12/21/20 10:12 MW 12/21/20 10:07 Wound Center Nurse 2 # 5 Right calf -Time 10:07 -Correct Patient Yes -Correct Side, Site, Position Yes -Correct Procedure Yes -Procedure Performed Yes -Type of Procedure Debridement -Clinical Debridement Subcutaneous -Tissue Removed Subcutaneous -Post Debridement (cm) - Length 7.5 -Post Debridement (cm) - Width 2.8 -Post Debridement (cm) - Depth 0.1 -Total Square (Post) (cm) 21.00 -Area of Debridement (cm) - Length 7.5 -Area of Debridement (cm) - Width 2.8 -Total Square (Area) (cm) 21.00 -Tunneling No -Undermining/Tunneling No -Circular Undermining No -Wound/Ulcer Outcome Not Healed -Ulcer Cleansing Rinsed/ Irrigated with Saline -Foul Odor after Cleansing No -Bioengineered Tissue No -Bleeding Controlled with Pressure -Offloading No -Treatment Response Procedure Tolerated Well -Debridement - Subq, 1st 20sq cm Yes -Debridement, SubQ, ea addt'l 20sq cm 1 or part thereof #4 Left Calf -Time 10:08 -Correct Patient Yes -Correct Side, Site, Position Yes -Correct Procedure Yes -Procedure Performed Yes -Type of Procedure Debridement -Clinical Debridement Subcutaneous -Tissue Removed Subcutaneous -Post Debridement (cm) - Length 6.0 -Post Debridement (cm) - Width 5.0 -Post Debridement (cm) - Depth 0.1 -Total Square (Post) (cm) 30.00 -Area of Debridement (cm) - Length 6.0 -Area of Debridement (cm) - Width 5.0 -Total Square (Area) (cm) 30.00 -Tunneling No -Undermining/Tunneling No -Circular Undermining No -Wound/Ulcer Outcome Not Healed -Ulcer Cleansing Rinsed/ Irrigated with Saline -Foul Odor after Cleansing No -Bioengineered Tissue No -Bleeding Controlled with Pressure -Offloading No -Treatment Response Procedure Tolerated Well -Debridement - Subq, 1st 20sq cm No -Debridement, SubQ, ea addt'l 20sq cm 1 or part thereof Pain Scale: 0-10 Numeric Is Patient Pain Free? Yes Wound debrided: Left posterior calf Type of Debridement: Excisional debridement Anesthesia Used: 5% Lidocaine Gel Depth: Down to and including healthy tissue, in the subcutaneous layer Percentage of wound debrided: 100 Instrument Used: 5mm curette Tissue Removed: Slough Severity: Limited To Skin Breakdown Amount of bleeding with debridement: Mild Bleeding Controlled with: Compression and gauze Patient tolerated procedure well - Additional Wound Wound debrided: Right posterior calf Type of Debridement: Excisional debridement Anesthesia Used: 5% Lidocaine Gel Depth: Down to and including healthy tissue, in the subcutaneous layer Percentage of wound debrided: 100 Instrument Used: 5mm curette Tissue Removed: Slough Severity: Limited To Skin Breakdown Amount of bleeding with debridement: Mild Bleeding Controlled with: Compression and gauze Patient tolerated procedure: Patient tolerated procedure well Assessment/Plan Assessment: CHF with peripheral vascular disease. A. fib. Long-term use of blood thinners. Peripheral vascular disease with wounds Plan: Wash legs with antibacterial soap. Apply Xeroform dressing to left anterior right posterior leg cover with gauze and Yonis then stockinette. with Douglas wraps over top. Follow-up in 1 week
[2020-12-28 10:00] VITALS: BP 120/78; PULSE 92; RESP 18; TEMP 35.8; BMI 28.7
--- NOTE | 2020-12-28 10:20 | PN.PCM_ITS ---
(1) Acute on chronic systolic heart failure Status: Acute (2) Bilateral cellulitis of lower leg Status: Acute Code(s): L03.116 - Cellulitis of left lower limb; L03.115 - Cellulitis of right lower limb (3) Bilateral leg ulcer Status: Chronic Qualifiers: Non-pressure ulcer stage: limited to breakdown of skin Qualified Code(s): L97.911 - Non-pressure chronic ulcer of unspecified part of right lower leg limited to breakdown of skin; L97.921 - Non-pressure chronic ulcer of unspecified part of left lower leg limited to breakdown of skin Code(s): L97.919 - Non-pressure chronic ulcer of unspecified part of right lower leg with unspecified severity; L97.929 - Non-pressure chronic ulcer of unspecified part of left lower leg with unspecified severity (4) COPD (chronic obstructive pulmonary disease) Status: Chronic Qualifiers: Code(s): J44.9 - Chronic obstructive pulmonary disease, unspecified Type of Wound Date of Service: 12/28/20 Chief Complaint: Bilateral lower extremity swelling and edema History of Wound: This is a 75-year-old female with a longstanding history of chronic swelling and edema in her lower extremities bilaterally. She has previously been treated at this facility for the symptoms. According to the patient, the swelling and edema in her lower extremities became much more severe just within the last 2 weeks. The patient chronically sleeps in a chair, due to back problems. She is ambulatory, but not very active. She spends long hours each day in a sitting position. She suffers from multiple pre-existing medical problems, as detailed elsewhere. In the past, she has developed ulcerations in her lower extremities due to the severe swelling and edema. She has previously been prescribed graduated compression stockings, which she has not been wearing. Her recapper, Dr. Jovel, has previously prescribed a diuretic doses with problems now with sodium and potassium levels. Of note, a noninvasive lower extremity arterial study performed on November 03, 2019, revealed no evidence of significant arterial occlusive disease in the lower extremities. The patient was hospitalized in April 2020 for approximately 4 days in treatment for congestive heart failure. The patient is debilitated, and relatively immobile. Her ambulatory capacity is extremely limited. She sits throughout the day, and sleeps in a chair in an upright position at night. The patient denies a history of lower extremity thrombophlebitis. The sores on her legs have started in October 212020. Progress of Wound: Today was able to debride all the slough out of the posterior bilateral lower legs. Wounds are slightly smaller we will change from Xeroform over to Aquacel extra. Patient is noncompliant with the compression now it is about soaking her dressings with compression. Cultures to make sure that there is nothing growing that skin repeating her healing abilities. - Physical Exam Vital Signs Temp Pulse Resp BP 96.5 F L 92 18 120/78 12/28/20 10:00 12/28/20 10:00 12/28/20 10:00 12/28/20 10:00 General: Oriented x3, Cooperative, Well developed HEENT: Atraumatic, PERRLA Oral: Moist Mucosa Neck: Supple, No JVD Lungs: Clear to auscultation, Normal air movement Cardiovascular: Regular rate, Regular Rhythm Abdomen: Bowel Sounds Present, Soft, Non Tender, No Hepato-splenomegaly Extremities: No clubbing, No edema Skin: Ulcer/ Wound - Open wounds bilateral calfs posterior Wound Measurements and Assessment WC - Nurse 1 - General Ulcer Measurement Start: 12/21/20 09:54 Freq: Status: Active Protocol: Activity Type Activity Date Activity User E-Sign Co-Sign Detail Recorded Client Recorded Date Recorded By Document 12/28/20 10:00 [facility] [id number] 12/28/20 10:03 [facility] 12/28/20 10:00 Wound Center Nurse 1 [Ulcer Assessment] # 5 Right calf -Combined with other wound No -Current Size (cm) - Length 6.4 -Current Size (cm) - Width 1.5 -Current Size (cm) - Depth 0.1 -Total Square Cm 9.60 -Photo Taken No -Epithelialization None Present -Tunneling No -Undermining/Tunneling No -Circular Undermining No -Exudate Amt Medium -Exudate Type Serosanguineous -Wound Margin Distinct, Outline Attached -Granulation Amt Medium (34-66%) -Granulation Quality Red -Slough/Fibrin Yes -Necrosis Amt Large (67-100%) -Necrotic Tissue Type Adherent Slough -Texture (Yesenia-wound Skin Appearance) Assessed, Scarring -Moisture (Yesenia-wound Skin Appearance Assessed ) -Color (Yesenia-wound Skin Appearance) Assessed -Temperature (Yesenia-wound Skin No Abnormality Appearance) (Pt Warm) -Tenderness on Palpation (Yesenia-wound Yes Skin Appearance) -Ulcer Cleansing Rinsed/ Irrigated with Saline -Foul Odor after Cleansing No -Anesthetic Used 4% Lidocaine Solution #4 Left Calf -Combined with other wound No -Current Size (cm) - Length 8 -Current Size (cm) - Width 4.6 -Current Size (cm) - Depth 0.2 -Total Square Cm 36.8 -Photo Taken No -Epithelialization None Present -Tunneling No -Undermining/Tunneling No -Circular Undermining No -Exudate Amt Large -Exudate Type Serosanguineous -Wound Margin Distinct, Outline Attached -Granulation Amt Medium (34-66%) -Granulation Quality Red -Slough/Fibrin Yes -Necrosis Amt Medium (34-66%) -Necrotic Tissue Type Adherent Slough -Texture (Yesenia-wound Skin Appearance) Assessed, Scarring -Moisture (Yesenia-wound Skin Appearance Assessed ) -Color (Yesenia-wound Skin Appearance) Assessed -Temperature (Yesenia-wound Skin No Abnormality Appearance) (Pt Warm) -Tenderness on Palpation (Yesenia-wound Yes Skin Appearance) -Ulcer Cleansing Rinsed/ Irrigated with Saline -Foul Odor after Cleansing No -Anesthetic Used 4% Lidocaine Solution [Edema Assessment] -Lower Limb Edema Present Yes -Right Calf (cm) 42 -Right Ankle (cm) 26 -Left Calf (cm) 40 -Left Ankle (cm) 25.5 WC - Nurse 2 - General Ulcer CM Notes Start: 12/21/20 09:54 Freq: Status: Active Protocol: Activity Type Activity Date Activity User E-Sign Co-Sign Detail Recorded Client Recorded Date Recorded By Document 12/28/20 10:10 MW [id number] 12/28/20 10:19 MW 12/28/20 10:10 Wound Center Nurse 2 [Procedure/Treatment] # 5 Right calf -Time 10:11 -Correct Patient Yes -Correct Side, Site, Position Yes -Correct Procedure Yes -Procedure Performed Yes -Type of Procedure Debridement -Clinical Debridement Subcutaneous -Tissue Removed Subcutaneous -Post Debridement (cm) - Length 6.0 -Post Debridement (cm) - Width 3.0 -Post Debridement (cm) - Depth 0.1 -Total Square (Post) (cm) 18.00 -Area of Debridement (cm) - Length 6.0 -Area of Debridement (cm) - Width 3.0 -Total Square (Area) (cm) 18.00 -Tunneling No -Undermining/Tunneling No -Circular Undermining No -Wound/Ulcer Outcome Not Healed -Ulcer Cleansing Rinsed/ Irrigated with Saline -Foul Odor after Cleansing No -Bioengineered Tissue No -Bleeding Controlled with Pressure -Offloading No -Treatment Response Procedure Tolerated Well -Debridement - Subq, 1st 20sq cm Yes -Debridement, SubQ, ea addt'l 20sq cm 2 or part thereof #4 Left Calf -Time 10:11 -Correct Patient Yes -Correct Side, Site, Position Yes -Correct Procedure Yes -Procedure Performed Yes -Type of Procedure Debridement -Clinical Debridement Subcutaneous -Tissue Removed Subcutaneous -Post Debridement (cm) - Length 7.5 -Post Debridement (cm) - Width 4.0 -Post Debridement (cm) - Depth 0.1 -Total Square (Post) (cm) 30.00 -Area of Debridement (cm) - Length 7.5 -Area of Debridement (cm) - Width 4.0 -Total Square (Area) (cm) 30.00 -Tunneling No -Undermining/Tunneling No -Circular Undermining No -Wound/Ulcer Outcome Not Healed -Ulcer Cleansing Rinsed/ Irrigated with Saline -Foul Odor after Cleansing No -Bioengineered Tissue No -Bleeding Controlled with Pressure -Offloading No -Debridement - Subq, 1st 20sq cm No [See Physician Procedure note for Specifics] Pain Scale: 0-10 Numeric [Pain] -Is Patient Pain Free? Yes Musculoskeletal: No Tenderness to Palpation of Joints or Extremities Lymphatic: No Cervical, Supraclavicular, or Inguinal Adenopathy Neurological: Cranial nerves II-XII grossly intact, Neuro grossly intact Psych/Mental Status: Normal Affect, Appropriate Debridement Note Post-Debridement Measurements/Treatment WC - Nurse 2 - General Ulcer CM Notes Start: 12/21/20 09:54 Freq: Status: Active Protocol: Activity Type Activity Date Activity User E-Sign Co-Sign Detail Recorded Client Recorded Date Recorded By Document 12/21/20 10:07 MW [id number] 12/21/20 10:12 MW Document 12/28/20 10:10 MW [id number] 12/28/20 10:19 MW 12/21/20 12/28/20 10:07 10:10 Wound Center Nurse 2 # 5 Right calf -Time 10:07 10:11 -Correct Patient Yes Yes -Correct Side, Site, Position Yes Yes -Correct Procedure Yes Yes -Procedure Performed Yes Yes -Type of Procedure Debridement Debridement -Clinical Debridement Subcutaneous Subcutaneous -Tissue Removed Subcutaneous Subcutaneous -Post Debridement (cm) - Length 7.5 6.0 -Post Debridement (cm) - Width 2.8 3.0 -Post Debridement (cm) - Depth 0.1 0.1 -Total Square (Post) (cm) 21.00 18.00 -Area of Debridement (cm) - Length 7.5 6.0 -Area of Debridement (cm) - Width 2.8 3.0 -Total Square (Area) (cm) 21.00 18.00 -Tunneling No No -Undermining/Tunneling No No -Circular Undermining No No -Wound/Ulcer Outcome Not Healed Not Healed -Ulcer Cleansing Rinsed/ Rinsed/ Irrigated with Irrigated with Saline Saline -Foul Odor after Cleansing No No -Bioengineered Tissue No No -Bleeding Controlled with Pressure Pressure -Offloading No No -Treatment Response Procedure Procedure Tolerated Well Tolerated Well -Debridement - Subq, 1st 20sq cm Yes Yes -Debridement, SubQ, ea addt'l 20sq cm 1 2 or part thereof #4 Left Calf -Time 10:08 10:11 -Correct Patient Yes Yes -Correct Side, Site, Position Yes Yes -Correct Procedure Yes Yes -Procedure Performed Yes Yes -Type of Procedure Debridement Debridement -Clinical Debridement Subcutaneous Subcutaneous -Tissue Removed Subcutaneous Subcutaneous -Post Debridement (cm) - Length 6.0 7.5 -Post Debridement (cm) - Width 5.0 4.0 -Post Debridement (cm) - Depth 0.1 0.1 -Total Square (Post) (cm) 30.00 30.00 -Area of Debridement (cm) - Length 6.0 7.5 -Area of Debridement (cm) - Width 5.0 4.0 -Total Square (Area) (cm) 30.00 30.00 -Tunneling No No -Undermining/Tunneling No No -Circular Undermining No No -Wound/Ulcer Outcome Not Healed Not Healed -Ulcer Cleansing Rinsed/ Rinsed/ Irrigated with Irrigated with Saline Saline -Foul Odor after Cleansing No No -Bioengineered Tissue No No -Bleeding Controlled with Pressure Pressure -Offloading No No -Treatment Response Procedure Tolerated Well -Debridement - Subq, 1st 20sq cm No No -Debridement, SubQ, ea addt'l 20sq cm 1 or part thereof Pain Scale: 0-10 Numeric Is Patient Pain Free? Yes Yes WC - Nurse 3 - General Ulcer D/C NN Start: 12/21/20 09:54 Freq: Status: Active Protocol: Activity Type Activity Date Activity User E-Sign Co-Sign Detail Recorded Client Recorded Date Recorded By Document 12/21/20 10:57 HI [id number] 12/21/20 11:00 HI 12/21/20 10:57 Wound Care Nurse 3 # 5 Right calf -Primary Dressing Applied Other -Other Dressing XEROFORM, ABD -Primary Dressing Covered/Secured with Dry Gauze & Roll Gauze, Secured with Tape #4 Left Calf -Primary Dressing Applied Other -Other Dressing XEROFORM, ABD -Primary Dressing Covered/Secured with Dry Gauze,Dry Gauze & Roll Gauze,Secured with Tape Right -Compression Wrap Douglas Wrap -Other STOCKINETTE THAN DOUGLAS WRAP Left -Compression Wrap Douglas Wrap -Other STOCKINETTE THAN DOUGLAS WRAP WC - Visit Discharge Discharge Condition Stable Ambulatory Status Wheelchair Transportation Private Auto Medication Reconcilliation completed & No provided to patient/care provider Clinical Summary of Care Provided Yes Notes: CHANGE WOUNDS BILAT TO KEEP CLEAN, DRY AND INTACT. Wound debrided: Right posterior calf Type of Debridement: Excisional debridement Anesthesia Used: 5% Lidocaine Gel Depth: Down to and including healthy tissue, in the subcutaneous layer Percentage of wound debrided: 100 Instrument Used: 5mm curette Tissue Removed: Slough Severity: Limited To Skin Breakdown Amount of bleeding with debridement: Mild Bleeding Controlled with: Compression and gauze - Additional Wound Wound debrided: Left posterior calf Type of Debridement: Excisional debridement Anesthesia Used: 5% Lidocaine Gel Depth: Down to and including healthy tissue Percentage of wound debrided: 100 Instrument Used: 5mm curette Tissue Removed: Slough Severity: Limited To Skin Breakdown Amount of bleeding with debridement: Mild Bleeding Controlled with: Compression and gauze Patient tolerated procedure: Patient tolerated procedure well Assessment/Plan Aerobic and anaerobic cultures obtained Active Problems (Last Reviewed 01/25/20 @ 10:49 by Jayleen Burr BOARD MEMBER, BOARD MEMBER-C) Acute on chronic systolic heart failure (Acute) Bilateral cellulitis of lower leg (Acute) Bilateral leg ulcer (Chronic) COPD (chronic obstructive pulmonary disease) (Chronic) Assessment: CHF with peripheral vascular disease. A. fib. Long-term use of blood thinners. Peripheral vascular disease with wounds Plan: Wash legs with antibacterial soap. Apply Aquacel extra to left & right posterior leg cover with gauze and Yonis then stockinette. with Douglas wraps over top. Follow-up in 1 week. Will call if cultures grow anything
--- NOTE | 2021-01-13 13:56 | WC ---
Received a call from [facility] home health nurse Cande stating patient's did not like the side effect list of Levofloxacin prescribed by Jovanna Partida NP so he flushed them down the toilet. Home michael nurse explained the importance of this medication due to wound infection. Patient and agreed to try antibiotic. Called Jovanna and updated on patient concern but willing to try medication. Verbal order received to refill Levofloxacin. Called Rx [facility] in [place]. Patient and home health nurse notified. Patient to pickling drum operator later today.
[2021-01-18 09:23] VITALS: BP 124/63; PULSE 78; RESP 18; TEMP 36; BMI 28.7
--- NOTE | 2021-01-18 11:02 | VDLE_ITS ---
Reason For Study: RLE swelling RIGHT GSV is normal. CFV is compressible, spontaneous, competent and demonstrates pulsatile venous flow. FV is compressible, spontaneous, competent and demonstrates pulsatile venous flow. POP V is compressible, spontaneous, competent and demonstrates pulsatile venous flow. T/P Trunk is compressible. PTV is compressible. RT PerV is compressible. Procedure This is a venous duplex using B-mode, color flow and spectral Doppler. Exam performed in department. The study was technically difficult. PT unable to lie down for exam. Exam performed in a sitting position. A preliminary report was called and/or faxed to . VL/Venous Duplex US, Unilateral Interpretation Summary Deep veins of the right lower extremity are patent and compressible segmentally . There is no evidence of right lower extremity deep vein thrombosis. Valvular competence axel ears intact within the proximal deep venous system on the right . The right great saphenous vein a ppears patent and compressible segmentally. Pulsatile flow is noted in the right lower extremity deep venous system, which may be indicative of elevated central venous pressure (i.e. congestive he art failure, tricuspid valve insufficiency, etc.). Clinical correlation is advised. Ordering Physician: Jovanna Partida Referring Physician: Amber Sanders Performed By: Arlette Fulton, CAMMYCS, RVT
--- NOTE | 2021-01-18 11:17 | PN.PCM_ITS ---
(1) Acute on chronic systolic heart failure Status: Acute (2) Bilateral cellulitis of lower leg Status: Acute Code(s): L03.116 - Cellulitis of left lower limb; L03.115 - Cellulitis of right lower limb (3) Bilateral leg ulcer Status: Chronic Qualifiers: Non-pressure ulcer stage: limited to breakdown of skin Qualified Code(s): L97.911 - Non-pressure chronic ulcer of unspecified part of right lower leg limited to breakdown of skin; L97.921 - Non-pressure chronic ulcer of unspecified part of left lower leg limited to breakdown of skin Code(s): L97.919 - Non-pressure chronic ulcer of unspecified part of right lower leg with unspecified severity; L97.929 - Non-pressure chronic ulcer of unspecified part of left lower leg with unspecified severity (4) COPD (chronic obstructive pulmonary disease) Status: Chronic Qualifiers: Code(s): J44.9 - Chronic obstructive pulmonary disease, unspecified Type of Wound Date of Service: 01/18/21 Chief Complaint: Bilateral lower extremity swelling and edema History of Wound: This is a 75-year-old female with a longstanding history of chronic swelling and edema in her lower extremities bilaterally. She has previously been treated at this facility for the symptoms. According to the patient, the swelling and edema in her lower extremities became much more severe just within the last 2 weeks. The patient chronically sleeps in a chair, due to back problems. She is ambulatory, but not very active. She spends long hours each day in a sitting position. She suffers from multiple pre-existing medical problems, as detailed elsewhere. In the past, she has developed ulcerations in her lower extremities due to the severe swelling and edema. She has previously been prescribed graduated compression stockings, which she has not been wearing. Her hoop punch operator helper, Dr. Jovel, has previously prescribed a diuretic doses with problems now with sodium and potassium levels. Of note, a noninvasive lower extremity arterial study performed on November 03, 2019, revealed no evidence of significant arterial occlusive disease in the lower extremities. The patient was hospitalized in April 2020 for approximately 4 days in treatment for congestive heart failure. The patient is debilitated, and relatively immobile. Her ambulatory capacity is extremely limited. She sits throughout the day, and sleeps in a chair in an upright position at night. The patient denies a history of lower extremity thrombophlebitis. The sores on her legs have started in October [id number]. Progress of Wound: Today was able to debride all the slough out of the posterior bilateral lower legs. Wounds are slightly smaller we will change from Xeroform over to Aquacel extra. Patient is noncompliant with the compression now it is about soaking her dressings with compression. Cultures are positive for bacteria and patient was started on antibiotics that they decided they did not want to take. They did not tell us the hits not taken the medication so basically she is about 2 weeks behind. The right lower leg is now extremely edematous red not warm to touch but up into her thigh appears to be a little bit warmer. Both wounds on the back of her legs are healing better but draining like water clear yellowish discharge. Patient still not wearing compression. Discussed with patient that this right leg is doing worse and that we will have to check for a DVT again and get lab work on her for a D-dimer and a CBC and an x-ray of the right lower leg. states she sits in a wheelchair all day and refuses to elevate. I was very blunt with her and told her if she does not start getting that leg elevated she is going to lose the leg. - Physical Exam Vital Signs Temp Pulse Resp BP 96.8 F L 78 18 124/63 H 01/18/21 09:23 01/18/21 09:23 01/18/21 09:23 01/18/21 09:23 General: Oriented x3, Cooperative, Well developed HEENT: Atraumatic, PERRLA Oral: Moist Mucosa Neck: Supple, No JVD Lungs: Clear to auscultation, Normal air movement Cardiovascular: Regular rate, Regular Rhythm Abdomen: Bowel Sounds Present, Soft, Non Tender, No Hepato-splenomegaly Extremities: No clubbing, Edema - Extreme edema and redness right lower leg and right upper thigh warm to touch. No lymphadenopathy at the groin or back of knee Skin: Ulcer/ Wound - Right and left posterior calf Wound Measurements and Assessment WC - Nurse 1 - General Ulcer Measurement Start: 12/21/20 09:54 Freq: Status: Active Protocol: Activity Type Activity Date Activity User E-Sign Co-Sign Detail Recorded Client Recorded Date Recorded By Document 01/18/21 09:23 PL [id number] 01/18/21 09:39 PL 01/18/21 09:23 Wound Center Nurse 1 [Ulcer Assessment] # 5 Right calf -Combined with other wound No -Current Size (cm) - Length 5.5 -Current Size (cm) - Width 3.5 -Current Size (cm) - Depth 0.1 -Total Square Cm 19.25 -Photo Taken No -Epithelialization None Present -Tunneling No -Undermining/Tunneling No -Circular Undermining No -Exudate Amt Large -Exudate Type Serosanguineous -Granulation Amt Small (1-33%) -Granulation Quality [place] -Slough/Fibrin Yes -Necrosis Amt Large (67-100%) -Necrotic Tissue Type Adherent Slough -Ulcer Cleansing Soap And Water -Anesthetic Used 5% Lidocaine Gel #4 Left Calf -Current Size (cm) - Length 4.0 -Current Size (cm) - Width 4.0 -Current Size (cm) - Depth 0.1 -Total Square Cm 16.00 -Photo Taken No -Tunneling No -Undermining/Tunneling No -Circular Undermining No -Exudate Amt Large -Exudate Type Serosanguineous -Granulation Amt Medium (34-66%) -Granulation Quality Pale -Slough/Fibrin Yes -Necrosis Amt Medium (34-66%) -Necrotic Tissue Type Adherent Slough -Texture (Yesenia-wound Skin Appearance) No Abnormality -Moisture (Yesenia-wound Skin Appearance No Abnormality ) -Color (Yesenia-wound Skin Appearance) No Abnormality -Temperature (Yesenia-wound Skin No Abnormality Appearance) (Pt Warm) -Ulcer Cleansing Rinsed/ Irrigated with Saline -Foul Odor after Cleansing No -Anesthetic Used 5% Lidocaine Gel WC - Nurse 2 - General Ulcer CM Notes Start: 12/21/20 09:54 Freq: Status: Active Protocol: Activity Type Activity Date Activity User E-Sign Co-Sign Detail Recorded Client Recorded Date Recorded By Document 01/18/21 09:54 MW [id number] 01/18/21 10:00 MW 01/18/21 09:54 Wound Center Nurse 2 [Procedure/Treatment] # 5 Right calf -Time 09:54 -Correct Patient Yes -Correct Side, Site, Position Yes -Correct Procedure Yes -Procedure Performed Yes -Type of Procedure Debridement -Clinical Debridement Subcutaneous -Tissue Removed Subcutaneous -Post Debridement (cm) - Length 9.5 -Post Debridement (cm) - Width 3.0 -Post Debridement (cm) - Depth 0.2 -Total Square (Post) (cm) 28.50 -Area of Debridement (cm) - Length 9.5 -Area of Debridement (cm) - Width 3.0 -Total Square (Area) (cm) 28.50 -Tunneling No -Undermining/Tunneling No -Circular Undermining No -Wound/Ulcer Outcome Not Healed -Ulcer Cleansing Rinsed/ Irrigated with Saline -Foul Odor after Cleansing No -Bioengineered Tissue No -Bleeding Controlled with Pressure -Offloading No -Treatment Response Procedure Tolerated Well -Debridement - Subq, 1st 20sq cm Yes -Debridement, SubQ, ea addt'l 20sq cm 1 or part thereof #4 Left Calf -Time 09:55 -Correct Patient Yes -Correct Side, Site, Position Yes -Correct Procedure Yes -Procedure Performed Yes -Type of Procedure Debridement -Clinical Debridement Subcutaneous -Tissue Removed Subcutaneous -Post Debridement (cm) - Length 3.5 -Post Debridement (cm) - Width 3.0 -Post Debridement (cm) - Depth 0.2 -Total Square (Post) (cm) 10.50 -Area of Debridement (cm) - Length 3.5 -Area of Debridement (cm) - Width 3.0 -Total Square (Area) (cm) 10.50 -Tunneling No -Undermining/Tunneling No -Circular Undermining No -Wound/Ulcer Outcome Not Healed -Ulcer Cleansing Rinsed/ Irrigated with Saline -Foul Odor after Cleansing No -Bioengineered Tissue No -Bleeding Controlled with Pressure -Offloading No -Treatment Response Procedure Tolerated Well -Debridement - Subq, 1st 20sq cm No [See Physician Procedure note for Specifics] Pain Scale: 0-10 Numeric [Pain] -Is Patient Pain Free? Yes WC - Nurse 3 - General Ulcer D/C NN Start: 12/21/20 09:54 Freq: Status: Active Protocol: Activity Type Activity Date Activity User E-Sign Co-Sign Detail Recorded Client Recorded Date Recorded By Document 01/18/21 10:27 PL [id number] 01/18/21 10:29 PL 01/18/21 10:27 Wound Care Nurse 3 [Wound Dressing] # 5 Right calf -Ulcer Cleansing Rinsed/ Irrigated with Saline -Foul Odor after Cleansing No -Primary Dressing Applied Aquacel Extra -Other Dressing Xtrasorb, kerlix, tape -Aquacel Extra 1 #4 Left Calf -Ulcer Cleansing Rinsed/ Irrigated with Saline -Foul Odor after Cleansing No -Other Dressing AquacelXtra, Xtrasorb, kerlix, tape Pain Scale: 0-10 Numeric [Pain] -Is Patient Pain Free? Yes Musculoskeletal: No Tenderness to Palpation of Joints or Extremities Lymphatic: No Cervical, Supraclavicular, or Inguinal Adenopathy Neurological: Cranial nerves II-XII grossly intact, Neuro grossly intact Psych/Mental Status: Normal Affect, Appropriate Debridement Note Post-Debridement Measurements/Treatment WC - Nurse 2 - General Ulcer CM Notes Start: 12/21/20 09:54 Freq: Status: Active Protocol: Activity Type Activity Date Activity User E-Sign Co-Sign Detail Recorded Client Recorded Date Recorded By Document 12/21/20 10:07 MW [id number] 12/21/20 10:12 MW Document 12/28/20 10:10 MW [id number] 12/28/20 10:19 MW Document 01/18/21 09:54 MW [id number] 01/18/21 10:00 MW 12/21/20 12/28/20 01/18/21 10:07 10:10 09:54 Wound Center Nurse 2 # 5 Right calf -Time 10:07 10:11 09:54 -Correct Patient Yes Yes Yes -Correct Side, Site, Position Yes Yes Yes -Correct Procedure Yes Yes Yes -Procedure Performed Yes Yes Yes -Type of Procedure Debridement Debridement Debridement -Clinical Debridement Subcutaneous Subcutaneous Subcutaneous -Tissue Removed Subcutaneous Subcutaneous Subcutaneous -Post Debridement (cm) - Length 7.5 6.0 9.5 -Post Debridement (cm) - Width 2.8 3.0 3.0 -Post Debridement (cm) - Depth 0.1 0.1 0.2 -Total Square (Post) (cm) 21.00 18.00 28.50 -Area of Debridement (cm) - Length 7.5 6.0 9.5 -Area of Debridement (cm) - Width 2.8 3.0 3.0 -Total Square (Area) (cm) 21.00 18.00 28.50 -Tunneling No No No -Undermining/Tunneling No No No -Circular Undermining No No No -Wound/Ulcer Outcome Not Healed Not Healed Not Healed -Ulcer Cleansing Rinsed/ Rinsed/ Rinsed/ Irrigated with Irrigated with Irrigated with Saline Saline Saline -Foul Odor after Cleansing No No No -Bioengineered Tissue No No No -Bleeding Controlled with Pressure Pressure Pressure -Offloading No No No -Treatment Response Procedure Procedure Procedure Tolerated Well Tolerated Well Tolerated Well -Debridement - Subq, 1st 20sq cm Yes Yes Yes -Debridement, SubQ, ea addt'l 20sq cm 1 2 1 or part thereof #4 Left Calf -Time 10:08 10:11 09:55 -Correct Patient Yes Yes Yes -Correct Side, Site, Position Yes Yes Yes -Correct Procedure Yes Yes Yes -Procedure Performed Yes Yes Yes -Type of Procedure Debridement Debridement Debridement -Clinical Debridement Subcutaneous Subcutaneous Subcutaneous -Tissue Removed Subcutaneous Subcutaneous Subcutaneous -Post Debridement (cm) - Length 6.0 7.5 3.5 -Post Debridement (cm) - Width 5.0 4.0 3.0 -Post Debridement (cm) - Depth 0.1 0.1 0.2 -Total Square (Post) (cm) 30.00 30.00 10.50 -Area of Debridement (cm) - Length 6.0 7.5 3.5 -Area of Debridement (cm) - Width 5.0 4.0 3.0 -Total Square (Area) (cm) 30.00 30.00 10.50 -Tunneling No No No -Undermining/Tunneling No No No -Circular Undermining No No No -Wound/Ulcer Outcome Not Healed Not Healed Not Healed -Ulcer Cleansing Rinsed/ Rinsed/ Rinsed/ Irrigated with Irrigated with Irrigated with Saline Saline Saline -Foul Odor after Cleansing No No No -Bioengineered Tissue No No No -Bleeding Controlled with Pressure Pressure Pressure -Offloading No No No -Treatment Response Procedure Procedure Tolerated Well Tolerated Well -Debridement - Subq, 1st 20sq cm No No No -Debridement, SubQ, ea addt'l 20sq cm 1 or part thereof Pain Scale: 0-10 Numeric Is Patient Pain Free? Yes Yes Yes - Nurse 3 - General Ulcer D/C NN Start: 12/21/20 09:54 Freq: Status: Active Protocol: Activity Type Activity Date Activity User E-Sign Co-Sign Detail Recorded Client Recorded Date Recorded By Document 12/21/20 10:57 MT [id number] 12/21/20 11:00 MT Document 12/28/20 10:20 MW [id number] 12/28/20 10:22 MW Document 01/18/21 10:27 PL [id number] 01/18/21 10:29 PL 12/21/20 12/28/20 01/18/21 10:57 10:20 10:27 Wound Care Nurse 3 # 5 Right calf -Ulcer Cleansing Rinsed/ Rinsed/ Irrigated with Irrigated with Saline Saline -Foul Odor after Cleansing No No -Negative Pressure Wound Therapy N/A -Primary Dressing Applied Other Aquacel Extra Aquacel Extra -Other Dressing XEROFORM, ABD Xtrasorb, kerlix, tape -Primary Dressing Covered/Secured with Dry Gauze & Dry Gauze & Roll Gauze, Roll Gauze, Secured with Secured with Tape Tape -Other Covering ABD -Aquacel Extra 2 1 #4 Left Calf -Ulcer Cleansing Rinsed/ Rinsed/ Irrigated with Irrigated with Saline Saline -Foul Odor after Cleansing No No -Negative Pressure Wound Therapy N/A -Primary Dressing Applied Other -Other Dressing XEROFORM, ABD AQUACEL EXTRA AquacelXtra, Xtrasorb, kerlix, tape -Primary Dressing Covered/Secured with Dry Gauze,Dry Dry Gauze & Gauze & Roll Roll Gauze, Gauze,Secured Secured with with Tape Tape -Other Covering ABD PAD Right -Lotion applied to leg before No compression wrap -Compression Wrap Douglas Wrap Douglas Wrap -Other STOCKINETTE STOCKINETTE THAN DOUGLAS WRAP Left -Lotion applied to leg before No compression wrap -Compression Wrap Douglas Wrap Douglas Wrap -Other STOCKINETTE STOCKINETTE THAN DOUGLAS WRAP Treatment Response Procedure Tolerated Well Pain Scale: 0-10 Numeric Is Patient Pain Free? Yes Yes Teaching: Wound Center Dressing Your Wound -Person Taught Patient -Teaching Method Discussion -Response to teaching Verbalize understanding WC - Visit Discharge Discharge Condition Stable Stable Ambulatory Status Wheelchair Wheelchair Transportation Private Auto Private Auto Accompanied by Medication Reconcilliation completed & No No provided to patient/care provider Clinical Summary of Care Provided Yes Yes Notes: CHANGE WOUNDS BILAT TO KEEP CLEAN, DRY AND INTACT. Wound debrided: Left posterior calf Type of Debridement: Excisional debridement Anesthesia Used: 5% Lidocaine Gel Depth: Down to and including healthy tissue, in the subcutaneous layer Percentage of wound debrided: 100 Instrument Used: 7mm curette Tissue Removed: Slough and fibrin Severity: Fat Layer Exposed Amount of bleeding with debridement: Mild Bleeding Controlled with: Compression and gauze Patient tolerated procedure well - Additional Wound Wound debrided: Posterior calf Type of Debridement: Excisional debridement Anesthesia Used: 5% Lidocaine Gel Depth: Down to and including healthy tissue, in the subcutaneous layer Instrument Used: 5mm curette Tissue Removed: Fibrin and slough Severity: Fat Layer Exposed Amount of bleeding with debridement: Mild Bleeding Controlled with: Compression and gauze Patient tolerated procedure: Patient tolerated procedure well Assessment/Plan D-dimer CBC stat ultrasound right leg Active Problems (Last Reviewed 01/25/20 @ 10:49 by Jayleen Burr [facility]) Acute on chronic systolic heart failure (Acute) Bilateral cellulitis of lower leg (Acute) Bilateral leg ulcer (Chronic) COPD (chronic obstructive pulmonary disease) (Chronic) Assessment: CHF with peripheral vascular disease. A. fib. Long-term use of blood thinners. Peripheral vascular disease with wounds Plan: Wash legs with antibacterial soap. Apply Aquacel extra to left & right posterior leg cover with gauze and Yonis then stockinette. with Douglas wraps over top. Patient is to lay on couch or in bed for at least most of the day and she was allowed up in the wheelchair for 1 to 2 hours at intervals a day. Follow-up in 1 week. Can you for Floxin 500 mg 1 p.o. daily for 14 days
--- NOTE | 2021-01-18 11:32 | RAD_ITS ---
STUDY: X-RAY - RIGHT TIBIA AND FIBULA REASON FOR EXAM: Right leg pain, swelling, no recent injury. TECHNIQUE: 2 view(s) of the tibia and fibula were obtained. COMPARISON: None. FINDINGS: Normal visualized tibia. Normal visualized fibula. There is soft tissue swelling. RAD/Tibia & Fibula 2 Views IMPRESSION: Soft tissue swelling. Electronically Signed: Bobby Blanchard MD at 12:16 EDT Tel , Service support ,
[2021-01-18 12:39] LABS: Absolute Lymphocyte Count 0.81 X10^3/uL (0.83-4.51); Absolute Neutrophil Count 6.1 X10^3/uL (2.0-7.7); Basophil# 0.04 X10^3/uL; Basophil% 0.5 % (0-1); Eosinophil# 0.07 X10^3/uL; Eosinophils% 0.9 % (0-5); Hematocrit 39.1 % (37-47); Hemoglobin 12.8 g/dL (12.0-15.0); Lymphocyte # 0.81 X10^3/ul (4.0); Lymphocyte % 10.4 % (19-41); Mean Corp Hgb Conc 32.7 g/dL (32-36); Mean Corpuscular Hgb 32.2 pg (27.0-32.0); Mean Corpuscular Volume 98.2 fL (81-99); Mean Platelet Vol. 8.7 fl (6.2-12.0); Monocyte# 0.74 X10^3/uL; Monocyte% 9.5 % (0-10); NRBC Flagged by Analyzer 0 % (0-5); Neutrophil # 6.06 X10^3/uL (2.7-7.7); Neutrophil % 78.2 % (47-70); Platelet Count 273 K/mm3 (150-450); RBC Distribution Width CV 12.8 % (11.6-14.6); RBC Distribution Width SD 46.6 fl (35.1-43.9); Red Blood Count 3.98 M/mm3 (4.2-5.4); White Blood Count 7.8 K/mm3 (4.4-11.0)
[2021-01-18 13:01] LABS: D-Dimer Quantitative (DVT/PE) 0.36 FEU/ug/m (0.27-0.49)
--- NOTE | 2021-01-18 16:18 | WC ---
Labs and xray results of right lower extremity reviewed per Jovanna Partida CNP. Patient notified of results. Voiced understanding.
== END 2021-01-18 23:59 ==
LOC: CVS 11:00
PROVIDERS: PCP Internal Medicine; Visit Provider Nurse Practitioner
DX: I73.9 Peripheral vascular disease, unspecified (principal); I48.91 Unspecified atrial fibrillation; I50.22 Chronic systolic (congestive) heart failure; L97.221 Non-pressure chronic ulcer of left calf limited to breakdown of skin; L97.211 Non-pressure chronic ulcer of right calf limited to breakdown of skin; L03.115 Cellulitis of right lower limb; L03.116 Cellulitis of left lower limb; J44.9 Chronic obstructive pulmonary disease, unspecified; M79.89 Other specified soft tissue disorders
CPT/HCPCS: 11042; 11045; 36415; 73590; 85025; 85379; 87070; 87075; 87077; 87186; 87205; 93971

== ENCOUNTER 2021-02-01 09:30 | Outpatient (RCR) | payer MEDICARE, OTHER, SELFPAY ==
[2021-01-19 00:46] VITALS: BP 124/63; PULSE 78; RESP 18; TEMP 36
[2021-01-25 09:28] VITALS: BP 123/54; PULSE 86; TEMP 36.3; BMI 28.7
--- NOTE | 2021-01-25 09:59 | PN.PCM_ITS ---
(1) Acute on chronic systolic heart failure Status: Acute (2) Hyponatremia Status: Acute Code(s): E87.1 - Hypo-osmolality and hyponatremia (3) Bilateral leg ulcer Status: Chronic Qualifiers: Code(s): L97.919 - Non-pressure chronic ulcer of unspecified part of right lower leg with unspecified severity; L97.929 - Non-pressure chronic ulcer of unspecified part of left lower leg with unspecified severity (4) COPD (chronic obstructive pulmonary disease) Status: Chronic Qualifiers: Code(s): J44.9 - Chronic obstructive pulmonary disease, unspecified (5) Leg edema Status: Chronic Code(s): R60.0 - Localized edema Type of Wound Date of Service: 01/25/21 Chief Complaint: Bilateral lower extremity swelling and edema History of Wound: This is a 75-year-old female with a longstanding history of chronic swelling and edema in her lower extremities bilaterally. She has previously been treated at this facility for the symptoms. According to the patient, the swelling and edema in her lower extremities became much more severe just within the last 2 weeks. The patient chronically sleeps in a chair, due to back problems. She is ambulatory, but not very active. She spends long hours each day in a sitting position. She suffers from multiple pre-existing medical problems, as detailed elsewhere. In the past, she has developed ulcerations in her lower extremities due to the severe swelling and edema. She has previously been prescribed graduated compression stockings, which she has not been wearing. Her corporate administrative assistant, Dr. Jovel, has previously prescribed a diuretic doses with problems now with sodium and potassium levels. Of note, a noninvasive lower extremity arterial study performed on November 03, 2019, revealed no evidence of significant arterial occlusive disease in the lower extremities. The patient was hospitalized in April 2020 for approximately 4 days in treatment for congestive heart failure. The patient is debilitated, and relatively immobile. Her ambulatory capacity is extremely limited. She sits throughout the day, and sleeps in a chair in an upright position at night. The patient denies a history of lower extremity thrombophlebitis. The sores on her legs have started in October [id number]. Progress of Wound: Today was able to debride all the slough out of the posterior bilateral lower legs. Wounds are smaller we have been using Aquacel extra. Patient is noncompliant with the compression now it is about soaking her dressings with compression. Cultures were positive for bacteria and patient was started on antibiotics that she is finishing now. Both wounds on the back of her legs are healing better but draining like water clear yellowish discharge. Patient still not wearing compression. Discussed with patient that this right leg is doing worse and that we will have to check for a DVT again that was negative and labs all normal. X-ray was normal of the right tib-fib. She is starting to getting legs elevated she . Now her having a problem with home health not ordering supplies for patient we will have to discuss with home health care with going on. Are going to apply for a skin substitute this week - Physical Exam Vital Signs Temp Pulse Resp BP 97.3 F L 86 18 123/54 H 01/25/21 09:28 01/25/21 09:28 01/19/21 00:46 01/25/21 09:28 General: Oriented x3, Cooperative, Well developed HEENT: Atraumatic, PERRLA Oral: Moist Mucosa Neck: Supple, No JVD Lungs: Clear to auscultation, Normal air movement Cardiovascular: Regular rate, Regular Rhythm Abdomen: Bowel Sounds Present, Soft, Non Tender, No Hepato-splenomegaly Extremities: No clubbing, Edema Skin: Ulcer/ Wound - Bilateral wounds to back of bilateral lower legs smaller depth is better Wound Measurements and Assessment WC - Nurse 1 - General Ulcer Measurement Start: 01/25/21 09:28 Freq: Status: Active Protocol: Activity Type Activity Date Activity User E-Sign Co-Sign Detail Recorded Client Recorded Date Recorded By Document 01/25/21 09:28 EVERETT [id number] 01/25/21 09:34 EVERETT 01/25/21 09:28 Wound Center Nurse 1 [Ulcer Assessment] # 5 Right calf -Current Size (cm) - Length 6.4 -Current Size (cm) - Width 3.1 -Current Size (cm) - Depth 0.3 -Total Square Cm 19.84 -Exudate Amt Medium -Exudate Type Serosanguineous -Wound Margin Distinct, Outline Attached -Granulation Amt Medium (34-66%) -Granulation Quality Red -Necrosis Amt Medium (34-66%) -Necrotic Tissue Type Adherent Slough -Texture (Yesenia-wound Skin Appearance) Assessed, Localized Edema -Moisture (Yesenia-wound Skin Appearance Assessed, ) Maceration, Weeping -Color (Yesenia-wound Skin Appearance) Assessed -Temperature (Yesenia-wound Skin No Abnormality Appearance) (Pt Warm) -Tenderness on Palpation (Yesenia-wound No Skin Appearance) -Ulcer Cleansing Rinsed/ Irrigated with Saline -Foul Odor after Cleansing No -Anesthetic Used 4% Lidocaine Solution #4 Left Calf -Current Size (cm) - Length 3.3 -Current Size (cm) - Width 2.7 -Current Size (cm) - Depth 0.2 -Total Square Cm 8.91 -Exudate Amt Medium -Exudate Type Serosanguineous -Wound Margin Distinct, Outline Attached -Granulation Amt Large (67-100%) -Granulation Quality Red -Necrosis Amt None Present (0 %) -Texture (Yesenia-wound Skin Appearance) Assessed, Scarring -Moisture (Yesenia-wound Skin Appearance Assessed, ) Maceration, Weeping -Color (Yesenia-wound Skin Appearance) No Abnormality, Assessed -Temperature (Yesenia-wound Skin No Abnormality Appearance) (Pt Warm) -Tenderness on Palpation (Yesenia-wound No Skin Appearance) -Ulcer Cleansing Rinsed/ Irrigated with Saline -Foul Odor after Cleansing No -Anesthetic Used 4% Lidocaine Solution [Edema Assessment] -Right Calf (cm) 50.5 -Right Ankle (cm) 27.1 -Left Calf (cm) 44.5 -Left Ankle (cm) 25.8 WC - Nurse 2 - General Ulcer CM Notes Start: 01/25/21 09:28 Freq: Status: Active Protocol: Activity Type Activity Date Activity User E-Sign Co-Sign Detail Recorded Client Recorded Date Recorded By Document 01/25/21 09:45 MW [id number] 01/25/21 09:50 MW 01/25/21 09:45 Wound Center Nurse 2 [Procedure/Treatment] # 5 Right calf -Time 09:46 -Correct Patient Yes -Correct Side, Site, Position Yes -Correct Procedure Yes -Procedure Performed Yes -Type of Procedure Debridement -Clinical Debridement Subcutaneous -Tissue Removed Subcutaneous -Post Debridement (cm) - Length 6.0 -Post Debridement (cm) - Width 3.0 -Post Debridement (cm) - Depth 0.2 -Total Square (Post) (cm) 18.00 -Area of Debridement (cm) - Length 6.0 -Area of Debridement (cm) - Width 3.0 -Total Square (Area) (cm) 18.00 -Tunneling No -Undermining/Tunneling No -Circular Undermining No -Wound/Ulcer Outcome Not Healed -Ulcer Cleansing Rinsed/ Irrigated with Saline -Foul Odor after Cleansing No -Bioengineered Tissue No -Bleeding Controlled with Pressure -Offloading No -Treatment Response Procedure Tolerated Well -Debridement - Subq, 1st 20sq cm Yes #4 Left Calf -Time 09:47 -Correct Patient Yes -Correct Side, Site, Position Yes -Correct Procedure Yes -Procedure Performed Yes -Type of Procedure Debridement -Clinical Debridement Subcutaneous -Tissue Removed Subcutaneous -Post Debridement (cm) - Length 3.5 -Post Debridement (cm) - Width 2.8 -Post Debridement (cm) - Depth 0.2 -Total Square (Post) (cm) 9.80 -Area of Debridement (cm) - Length 3.5 -Area of Debridement (cm) - Width 2.8 -Total Square (Area) (cm) 9.80 -Tunneling No -Undermining/Tunneling No -Circular Undermining No -Wound/Ulcer Outcome Not Healed -Ulcer Cleansing Rinsed/ Irrigated with Saline -Foul Odor after Cleansing No -Bioengineered Tissue No -Bleeding Controlled with Pressure -Offloading No -Treatment Response Procedure Tolerated Well -Debridement - Subq, 1st 20sq cm No [See Physician Procedure note for Specifics] Pain Scale: 0-10 Numeric [Pain] -Is Patient Pain Free? Yes Musculoskeletal: No Tenderness to Palpation of Joints or Extremities Lymphatic: No Cervical, Supraclavicular, or Inguinal Adenopathy Neurological: Cranial nerves II-XII grossly intact, Neuro grossly intact Psych/Mental Status: Normal Affect, Appropriate, Alert and oriented to time, place, person, mood and affect Debridement Note Post-Debridement Measurements/Treatment WC - Nurse 2 - General Ulcer CM Notes Start: 01/25/21 09:28 Freq: Status: Active Protocol: Activity Type Activity Date Activity User E-Sign Co-Sign Detail Recorded Client Recorded Date Recorded By Document 01/25/21 09:45 MW [id number] 01/25/21 09:50 MW 01/25/21 09:45 Wound Center Nurse 2 # 5 Right calf -Time 09:46 -Correct Patient Yes -Correct Side, Site, Position Yes -Correct Procedure Yes -Procedure Performed Yes -Type of Procedure Debridement -Clinical Debridement Subcutaneous -Tissue Removed Subcutaneous -Post Debridement (cm) - Length 6.0 -Post Debridement (cm) - Width 3.0 -Post Debridement (cm) - Depth 0.2 -Total Square (Post) (cm) 18.00 -Area of Debridement (cm) - Length 6.0 -Area of Debridement (cm) - Width 3.0 -Total Square (Area) (cm) 18.00 -Tunneling No -Undermining/Tunneling No -Circular Undermining No -Wound/Ulcer Outcome Not Healed -Ulcer Cleansing Rinsed/ Irrigated with Saline -Foul Odor after Cleansing No -Bioengineered Tissue No -Bleeding Controlled with Pressure -Offloading No -Treatment Response Procedure Tolerated Well -Debridement - Subq, 1st 20sq cm Yes #4 Left Calf -Time 09:47 -Correct Patient Yes -Correct Side, Site, Position Yes -Correct Procedure Yes -Procedure Performed Yes -Type of Procedure Debridement -Clinical Debridement Subcutaneous -Tissue Removed Subcutaneous -Post Debridement (cm) - Length 3.5 -Post Debridement (cm) - Width 2.8 -Post Debridement (cm) - Depth 0.2 -Total Square (Post) (cm) 9.80 -Area of Debridement (cm) - Length 3.5 -Area of Debridement (cm) - Width 2.8 -Total Square (Area) (cm) 9.80 -Tunneling No -Undermining/Tunneling No -Circular Undermining No -Wound/Ulcer Outcome Not Healed -Ulcer Cleansing Rinsed/ Irrigated with Saline -Foul Odor after Cleansing No -Bioengineered Tissue No -Bleeding Controlled with Pressure -Offloading No -Treatment Response Procedure Tolerated Well -Debridement - Subq, 1st 20sq cm No Pain Scale: 0-10 Numeric Is Patient Pain Free? Yes Wound debrided: Posterior calf wounds Type of Debridement: Excisional debridement Anesthesia Used: 5% Lidocaine Gel Depth: Down to and including healthy tissue, in the subcutaneous layer Percentage of wound debrided: 100 Instrument Used: 5mm curette Tissue Removed: Slough and fibrin Severity: Limited To Skin Breakdown Amount of bleeding with debridement: Mild Bleeding Controlled with: Compression and gauze Patient tolerated procedure well - Additional Wound Wound debrided: Left posterior calf Type of Debridement: Excisional debridement Anesthesia Used: 5% Lidocaine Gel Depth: Down to and including healthy tissue Percentage of wound debrided: 100 Instrument Used: 5mm curette Tissue Removed: Slough and fibrin Amount of bleeding with debridement: Mild Bleeding Controlled with: Compression and gauze Patient tolerated procedure: Patient tolerated procedure well Assessment/Plan Assessment: CHF with peripheral vascular disease. A. fib. Long-term use of blood thinners. Peripheral vascular disease with wounds Plan: Wash legs with antibacterial soap. Apply Aquacel extra to left & right posterior leg cover with gauze and Yonis then stockinette. with Douglas wraps over top. Patient is to lay on couch or in bed for at least most of the day and she was allowed up in the wheelchair for 1 to 2 hours at intervals a day. Follow-up in 1 week. Finish levofloxin 500 mg 1 p.o. daily for 14 days
[2021-02-01 09:29] VITALS: TEMP 36.2; BMI 28.7
--- NOTE | 2021-02-01 11:26 | PN.PCM_ITS ---
(1) Acute on chronic systolic heart failure Status: Acute (2) Hyponatremia Status: Acute Code(s): E87.1 - Hypo-osmolality and hyponatremia (3) Bilateral leg ulcer Status: Chronic Qualifiers: Code(s): L97.919 - Non-pressure chronic ulcer of unspecified part of right lower leg with unspecified severity; L97.929 - Non-pressure chronic ulcer of unspecified part of left lower leg with unspecified severity (4) COPD (chronic obstructive pulmonary disease) Status: Chronic Qualifiers: Code(s): J44.9 - Chronic obstructive pulmonary disease, unspecified (5) Leg edema Status: Chronic Code(s): R60.0 - Localized edema Type of Wound Date of Service: 02/01/21 Chief Complaint: Bilateral lower extremity swelling and edema History of Wound: This is a 75-year-old female with a longstanding history of chronic swelling and edema in her lower extremities bilaterally. She has previously been treated at this facility for the symptoms. According to the patient, the swelling and edema in her lower extremities became much more severe just within the last 2 weeks. The patient chronically sleeps in a chair, due to back problems. She is ambulatory, but not very active. She spends long hours each day in a sitting position. She suffers from multiple pre-existing medical problems, as detailed elsewhere. In the past, she has developed ulcerations in her lower extremities due to the severe swelling and edema. She has previously been prescribed graduated compression stockings, which she has not been wearing. Her automotive professional, Dr. Jovel, has previously prescribed a diuretic doses with problems now with sodium and potassium levels. Of note, a noninvasive lower extremity arterial study performed on November 03, 2019, revealed no evidence of significant arterial occlusive disease in the lower extremities. The patient was hospitalized in April 2020 for approximately 4 days in treatment for congestive heart failure. The patient is debilitated, and relatively immobile. Her ambulatory capacity is extremely limited. She sits throughout the day, and sleeps in a chair in an upright position at night. The patient denies a history of lower extremity thrombophlebitis. The sores on her legs have started in October [id number]. Progress of Wound: Today was able to debride all the slough out of the posterior bilateral lower legs. Wounds are smaller we have been using Aquacel extra. Patient was approved for puraply and applied puraply for the first time this week. We will follow-up in 1 week - Physical Exam Vital Signs Temp Pulse Resp BP 97.2 F L 86 18 123/54 H 02/01/21 09:29 01/25/21 09:28 01/19/21 00:46 01/25/21 09:28 General: Oriented x3, Cooperative, Well developed HEENT: Atraumatic, PERRLA Oral: Moist Mucosa Neck: Supple, No JVD Lungs: Clear to auscultation, Normal air movement Cardiovascular: Regular rate, Regular Rhythm Abdomen: Bowel Sounds Present, Soft, Non Tender, No Hepato-splenomegaly Extremities: No clubbing, No edema, - - Left posterior open wounds nonhealing Wound Measurements and Assessment WC - Nurse 1 - General Ulcer Measurement Start: 01/25/21 09:28 Freq: Status: Active Protocol: Activity Type Activity Date Activity User E-Sign Co-Sign Detail Recorded Client Recorded Date Recorded By Document 02/01/21 09:29 EVERETT [id number] 02/01/21 09:37 EVERETT 02/01/21 09:29 Wound Center Nurse 1 [Ulcer Assessment] # 5 Right calf -Current Size (cm) - Length 6.4 -Current Size (cm) - Width 3.4 -Current Size (cm) - Depth 0.1 -Total Square Cm 21.76 -Exudate Amt Medium -Exudate Type Serosanguineous -Wound Margin Distinct, Outline Attached -Granulation Amt None Present (0 %) -Necrosis Amt Large (67-100%) -Necrotic Tissue Type Adherent Slough -Texture (Yesenia-wound Skin Appearance) Assessed, Scarring -Moisture (Yesenia-wound Skin Appearance No Abnormality, ) Assessed -Temperature (Yesenia-wound Skin No Abnormality Appearance) (Pt Warm) -Tenderness on Palpation (Yesenia-wound No Skin Appearance) -Ulcer Cleansing Rinsed/ Irrigated with Saline -Foul Odor after Cleansing No -Anesthetic Used 4% Lidocaine Solution #4 Left Calf -Current Size (cm) - Length 1.8 -Current Size (cm) - Width 2.5 -Current Size (cm) - Depth 0.2 -Total Square Cm 4.50 -Exudate Amt Medium -Exudate Type Serosanguineous -Wound Margin Distinct, Outline Attached -Granulation Amt Medium (34-66%) -Granulation Quality Red -Necrosis Amt Medium (34-66%) -Necrotic Tissue Type Adherent Slough -Texture (Yesenia-wound Skin Appearance) Assessed, Scarring -Moisture (Yesenia-wound Skin Appearance No Abnormality, ) Assessed -Color (Yesenia-wound Skin Appearance) No Abnormality, Assessed -Temperature (Yesenia-wound Skin No Abnormality Appearance) (Pt Warm) -Tenderness on Palpation (Yesenia-wound No Skin Appearance) -Ulcer Cleansing Rinsed/ Irrigated with Saline -Foul Odor after Cleansing No -Anesthetic Used 4% Lidocaine Solution [Edema Assessment] -Right Calf (cm) 51.4 -Right Ankle (cm) 27.2 -Left Calf (cm) 45.6 -Left Ankle (cm) 26.1 WC - Nurse 2 - General Ulcer CM Notes Start: 01/25/21 09:28 Freq: Status: Active Protocol: Activity Type Activity Date Activity User E-Sign Co-Sign Detail Recorded Client Recorded Date Recorded By Document 02/01/21 10:10 MW [id number] 02/01/21 10:23 MW 02/01/21 10:10 Wound Center Nurse 2 [Procedure/Treatment] # 5 Right calf -Time 10:10 -Correct Patient Yes -Correct Side, Site, Position Yes -Correct Procedure Yes -Procedure Performed Yes -Type of Procedure Debridement -Clinical Debridement Subcutaneous -Tissue Removed Subcutaneous -Post Debridement (cm) - Length 5.5 -Post Debridement (cm) - Width 3.5 -Post Debridement (cm) - Depth 0.2 -Total Square (Post) (cm) 19.25 -Area of Debridement (cm) - Length 5.5 -Area of Debridement (cm) - Width 3.5 -Total Square (Area) (cm) 19.25 -Tunneling No -Undermining/Tunneling No -Circular Undermining No -Wound/Ulcer Outcome Not Healed -Ulcer Cleansing Rinsed/ Irrigated with Saline -Foul Odor after Cleansing No -Bioengineered Tissue Yes -Type of Bioengineered Tissue PuraPly AM -Expiration Date 03/03/23 -Product Lot Number [id number] -Percent Used 100 -Lot number of Saline Used [id number] -Bleeding Controlled with Pressure -Offloading No -Treatment Response Procedure Tolerated Well -Debridement - Subq, 1st 20sq cm No -Apply Skin Sub - 1st 25 sq cm - Legs 1 -PuraPly AM (per sq cm) 12 #4 Left Calf -Time 10:13 -Correct Patient Yes -Correct Side, Site, Position Yes -Correct Procedure Yes -Procedure Performed Yes -Type of Procedure Debridement -Clinical Debridement Subcutaneous -Tissue Removed Subcutaneous -Post Debridement (cm) - Length 1.2 -Post Debridement (cm) - Width 2.3 -Post Debridement (cm) - Depth 0.2 -Total Square (Post) (cm) 2.76 -Area of Debridement (cm) - Length 1.2 -Area of Debridement (cm) - Width 2.3 -Total Square (Area) (cm) 2.76 -Tunneling No -Undermining/Tunneling No -Circular Undermining No -Wound/Ulcer Outcome Not Healed -Ulcer Cleansing Rinsed/ Irrigated with Saline -Foul Odor after Cleansing No -Bioengineered Tissue No -Bleeding Controlled with Pressure -Offloading No -Treatment Response Procedure Tolerated Well -Debridement - Subq, 1st 20sq cm Yes [See Physician Procedure note for Specifics] Pain Scale: 0-10 Numeric [Pain] -Is Patient Pain Free? Yes - Nurse 3 - General Ulcer D/C NN Start: 01/25/21 09:28 Freq: Status: Active Protocol: Activity Type Activity Date Activity User E-Sign Co-Sign Detail Recorded Client Recorded Date Recorded By Document 02/01/21 10:32 EVERETT [id number] 02/01/21 10:34 EVERETT 02/01/21 10:32 Wound Care Nurse 3 [Wound Dressing] # 5 Right calf -Primary Dressing Covered/Secured Secured with with Tape -Other Covering ABD pads #4 Left Calf -Primary Dressing Covered/Secured Dry Gauze, with Secured with Tape -Other Covering Abd pads [Compression Applied] Right -Other douglas wraps Left -Other douglas wraps Pain Scale: 0-10 Numeric [Pain] -Is Patient Pain Free? Yes - Visit Discharge [Visit Discharge Information] -Discharge Condition Stable -Ambulatory Status Wheelchair -Transportation Private Auto -Accompanied by Musculoskeletal: No Tenderness to Palpation of Joints or Extremities Lymphatic: No Cervical, Supraclavicular, or Inguinal Adenopathy Neurological: Cranial nerves II-XII grossly intact, Neuro grossly intact Psych/Mental Status: Normal Affect, Appropriate Debridement Note Post-Debridement Measurements/Treatment WC - Nurse 2 - General Ulcer CM Notes Start: 01/25/21 09:28 Freq: Status: Active Protocol: Activity Type Activity Date Activity User E-Sign Co-Sign Detail Recorded Client Recorded Date Recorded By Document 01/25/21 09:45 MW [id number] 01/25/21 09:50 MW Document 02/01/21 10:10 MW [id number] 02/01/21 10:23 MW 01/25/21 02/01/21 09:45 10:10 Wound Center Nurse 2 # 5 Right calf -Time 09:46 10:10 -Correct Patient Yes Yes -Correct Side, Site, Position Yes Yes -Correct Procedure Yes Yes -Procedure Performed Yes Yes -Type of Procedure Debridement Debridement -Clinical Debridement Subcutaneous Subcutaneous -Tissue Removed Subcutaneous Subcutaneous -Post Debridement (cm) - Length 6.0 5.5 -Post Debridement (cm) - Width 3.0 3.5 -Post Debridement (cm) - Depth 0.2 0.2 -Total Square (Post) (cm) 18.00 19.25 -Area of Debridement (cm) - Length 6.0 5.5 -Area of Debridement (cm) - Width 3.0 3.5 -Total Square (Area) (cm) 18.00 19.25 -Tunneling No No -Undermining/Tunneling No No -Circular Undermining No No -Wound/Ulcer Outcome Not Healed Not Healed -Ulcer Cleansing Rinsed/ Rinsed/ Irrigated with Irrigated with Saline Saline -Foul Odor after Cleansing No No -Bioengineered Tissue No Yes -Type of Bioengineered Tissue PuraPly AM -Expiration Date 03/03/23 -Product Lot Number [id number] -Percent Used 100 -Lot number of Saline Used [id number] -Bleeding Controlled with Pressure Pressure -Offloading No No -Treatment Response Procedure Procedure Tolerated Well Tolerated Well -Debridement - Subq, 1st 20sq cm Yes No -Apply Skin Sub - 1st 25 sq cm - Legs 1 -PuraPly AM (per sq cm) 12 #4 Left Calf -Time 09:47 10:13 -Correct Patient Yes Yes -Correct Side, Site, Position Yes Yes -Correct Procedure Yes Yes -Procedure Performed Yes Yes -Type of Procedure Debridement Debridement -Clinical Debridement Subcutaneous Subcutaneous -Tissue Removed Subcutaneous Subcutaneous -Post Debridement (cm) - Length 3.5 1.2 -Post Debridement (cm) - Width 2.8 2.3 -Post Debridement (cm) - Depth 0.2 0.2 -Total Square (Post) (cm) 9.80 2.76 -Area of Debridement (cm) - Length 3.5 1.2 -Area of Debridement (cm) - Width 2.8 2.3 -Total Square (Area) (cm) 9.80 2.76 -Tunneling No No -Undermining/Tunneling No No -Circular Undermining No No -Wound/Ulcer Outcome Not Healed Not Healed -Ulcer Cleansing Rinsed/ Rinsed/ Irrigated with Irrigated with Saline Saline -Foul Odor after Cleansing No No -Bioengineered Tissue No No -Bleeding Controlled with Pressure Pressure -Offloading No No -Treatment Response Procedure Procedure Tolerated Well Tolerated Well -Debridement - Subq, 1st 20sq cm No Yes Pain Scale: 0-10 Numeric Is Patient Pain Free? Yes Yes - Nurse 3 - General Ulcer D/C NN Start: 01/25/21 09:28 Freq: Status: Active Protocol: Activity Type Activity Date Activity User E-Sign Co-Sign Detail Recorded Client Recorded Date Recorded By Document 01/25/21 10:05 EVERETT [id number] 01/25/21 10:07 KR Document 02/01/21 10:32 KR [id number] 02/01/21 10:34 KR 01/25/21 02/01/21 10:05 10:32 Wound Care Nurse 3 # 5 Right calf -Ulcer Cleansing Rinsed/ Irrigated with Saline -Primary Dressing Applied Aquacel Extra -Primary Dressing Covered/Secured with Dry Gauze, Secured with Secured with Tape Tape -Other Covering ABD pads -Aquacel Extra 1 #4 Left Calf -Ulcer Cleansing Rinsed/ Irrigated with Saline -Primary Dressing Covered/Secured with Dry Gauze, Dry Gauze, Secured with Secured with Tape Tape -Other Covering Abd pads Right -Compression Wrap Douglas Wrap -Other douglas wraps Left -Compression Wrap Douglas Wrap -Other douglas wraps Pain Scale: 0-10 Numeric Is Patient Pain Free? Yes Yes - Visit Discharge Discharge Condition Stable Stable Ambulatory Status Wheelchair Wheelchair Transportation Private Auto Private Auto Accompanied by Wound debrided: Right posterior calf Type of Debridement: Excisional debridement Anesthesia Used: 5% Lidocaine Gel Depth: Down to and including healthy tissue, in the subcutaneous layer Percentage of wound debrided: 100 Instrument Used: 5mm curette Tissue Removed: Slough and devitalized tissue Severity: Limited To Skin Breakdown Amount of bleeding with debridement: Mild Bleeding Controlled with: Compression and gauze Patient tolerated procedure well - Additional Wound Wound debrided: Left posterior calf Type of Debridement: Excisional debridement Anesthesia Used: 5% Lidocaine Gel Depth: Down to and including healthy tissue, in the subcutaneous layer Percentage of wound debrided: 100 Instrument Used: 5mm curette Tissue Removed: Fibrin Severity: Limited To Skin Breakdown Amount of bleeding with debridement: Mild Bleeding Controlled with: Compression and gauze Patient tolerated procedure: Patient tolerated procedure well Assessment/Plan Active Problems (Last Reviewed 01/25/20 @ 10:49 by Jayleen Burr C[employer]OL[employer] MELTING SUPERVISOR, CUPOLA MELTING SUPERVISOR-C) Hyponatremia (Acute) Leg edema (Chronic) Acute on chronic systolic heart failure (Acute) Bilateral leg ulcer (Chronic) COPD (chronic obstructive pulmonary disease) (Chronic) Assessment: CHF with peripheral vascular disease. A. fib. Long-term use of blood thinners. Peripheral vascular disease with wounds Plan: Dressing changes this week May reinforce or change outside dressings down to Steri-Strips. Tubey pasting inspector with Douglas wraps over top. Patient is to lay on couch or in bed for at least most of the day and she was allowed up in the wheelchair for 1 to 2 hours at intervals a day. Follow-up in 1 week
== END 2021-02-17 23:59 ==
LOC: WC 09:30
PROVIDERS: PCP Internal Medicine; Visit Provider Nurse Practitioner
DX: L97.211 Non-pressure chronic ulcer of right calf limited to breakdown of skin (principal); L97.221 Non-pressure chronic ulcer of left calf limited to breakdown of skin; I73.9 Peripheral vascular disease, unspecified; M79.89 Other specified soft tissue disorders; R60.0 Localized edema; Z91.19 Patient's noncompliance with other medical treatment and regimen; I50.22 Chronic systolic (congestive) heart failure; E87.1 Hypo-osmolality and hyponatremia; I48.91 Unspecified atrial fibrillation; J44.9 Chronic obstructive pulmonary disease, unspecified; R53.81 Other malaise; Z79.899 Other long term (current) drug therapy
CPT/HCPCS: 11042; 15271; Q4196

== ENCOUNTER 2021-05-12 12:46 | Inpatient (IN) | payer MEDICARE, OTHER, SELFPAY ==
[2021-05-12] VITALS (8 sets, daily range): BP systolic 95–138; BP diastolic 56–79; PULSE 78–86; RESP 16–18; TEMP 36.2–36.6; O2SAT 96–100; BMI 25.7; BMI 26.5
--- NOTE | 2021-05-12 13:36 | EDS_ITS ---
HPI History of Present Illness Chief Complaint: Abscess Informant: patient and spouse/S.O. Onset/Context/Timing Onset: Weeks (1-2) Context: Gradual Onset Timing: Continuous Quality: sore, occasionally leaking fluid and small amts blood Location: buttocks, RLE Current Severity: Moderate Maximum Severity: Moderate Worsened by: sitting on affected areas Relieved by: relieving pressure Associated Symptoms Associated Symptoms: no fevers/chills Narrative Narrative: Patient has chronic lymphedema and has had multiple wounds recently. She accidentally was stuck in the left posterior calf by part of a wheelchair that created a wound that she has not yet had evaluated or treated at all. She has had some minor ulcerations in her right lower leg that have been leaking a lot, she is continue to wrap them. There is some mild pain but not really painful. Now, she has wounds on her buttocks that have been painful, and occasionally bleeding. She is wheelchair-bound. states she also has chronic hyponatremia and she has been a little more confused in the last several weeks than usual, and would like to see what her sodium looks like today as well. [facility] Medical History (Updated 05/12/21 @ 15:[address] Ty Vallejo MD) Acute CHF Acute on chronic systolic (congestive) heart failure Bilateral leg ulcer COPD (chronic obstructive pulmonary disease) Debility Dependence on supplemental oxygen Dependent edema Essential (primary) hypertension History of breast cancer Immobility Leg edema, left Leg edema, right Leg swelling Lumbar disc disease Lung mass New onset A. fib with RVR Nicotine dependence Non-ischemic cardiomyopathy Non-rheumatic tricuspid valve insufficiency Nonrheumatic mitral (valve) insufficiency Paroxysmal atrial fibrillation Secondary pulmonary arterial hypertension Suspected chronic obstructive pulmonary disease based on initial evaluation Thrush, oral Tobacco abuse Tobacco abuse counseling Home Medications [id number] 1 tab PO DAILY 10/05/19 [History Last Taken 05/11/21] albuterol sulfate 90 mcg/actuation aerosol inhaler 1 - 2 puff INHALATION Q4H PRN PRN #18 g 04/29/20 [Rx Last Taken 07/12/20] carvedilol 25 mg PO BID 07/12/20 [History Last Taken 05/11/21] fluticasone propion-salmeterol 2 puff INHALATION BID 07/12/20 [History Last Taken 05/11/21] ferrous sulfate 325 mg PO BID #60 tab 07/15/20 [Rx Last Taken 05/11/21] guaifenesin 1,200 mg PO BID #14 tab 07/15/20 [Rx Last Taken Unknown] torsemide 100 mg PO DAILY #30 tab 07/15/20 [Rx Last Taken 05/11/21] magnesium oxide 400 mg PO DAILY 05/12/21 [History Last Taken 05/11/21] potassium chloride 40 meq PO BID 05/12/21 [History Last Taken 05/11/21] rivaroxaban [Xarelto] 20 mg PO DAILY 05/12/21 [History Last Taken 05/11/21] tiotropium bromide [Spiriva Respimat] 2 inh INHALATION BID 05/12/21 [History Last Taken 05/11/21] Allergy/AdvReac Type Severity Reaction Status Date / Time albuterol sulfate Allergy Swelling Verified 05/12/21 12:48 [From Combivent] ipratropium bromide Allergy Swelling Verified 05/12/21 12:48 [From Combivent] metoprolol Allergy Laryngospas Verified 05/12/21 12:48 ms Sulfa (Sulfonamide Allergy Rash Verified 05/12/21 12:48 Antibiotics) beclomethasone [From Qvar] AdvReac COUGHING Verified 05/12/21 12:48 benzalkonium chloride AdvReac Rash Verified 05/12/21 12:48 [From Merthiolate (benzalkonium)] codeine AdvReac Chest Verified 05/12/21 12:48 tightness doxycycline AdvReac Abd Verified 05/12/21 12:48 cramps/diarrhea formoterol fumarate AdvReac PT UNSURE Verified 05/12/21 12:48 [From Dulera] OF REACTION hydrochlorothiazide AdvReac PT UNSURE Verified 05/12/21 12:48 OF REACTION ibuprofen [From Advil] AdvReac PT UNSURE Verified 05/12/21 12:48 OF REACTION iodine AdvReac Itching Verified 05/12/21 12:48 merbromin AdvReac PT UNSURE Verified 05/12/21 12:48 OF REACTION mometasone furoate AdvReac PT UNSURE Verified 05/12/21 12:48 [From Dulera] OF REACTION oseltamivir [From Tamiflu] AdvReac uterine Verified 05/12/21 12:48 pain prednisone AdvReac Abd Verified 05/12/21 12:48 cramps/diarrhea PLASTIC TAPE Allergy Rash Uncoded 05/12/21 12:48 Family History (Reviewed 01/25/20 @ 10:49 by Jayleen Burr DEPARTMENT COORDINATOR, DEPARTMENT COORDINATOR-C) Father Emphysema of lung Sister Cancer uterine cancer Surgical History History of left heart catheterization (11/09/19) History of left mastectomy History of lumpectomy of right breast History of tubal ligation polyp removal Social History Smoking Status: Current every day smoker tobacco type: cigarettes second hand exposure: Yes alcohol intake: current alcohol intake frequency: 0-2 drinks per day Alcohol type: wine substance use type: does not use caffeine: No what type of physical activity do you participate in: none seatbelt use: always do you feel safe at home: Yes ROS ROS ED Constitutional Constitutional ED: Denies chills or fever(s) Eyes Eyes: Denies change in vision or diplopia ENT ENT ED: Denies rhinorrhea or sore throat Cardiovascular Cardiovascular: Reports leg edema; Denies chest pain or palpitations Respiratory/Chest Respiratory/Chest: Denies cough or dyspnea Gastrointestinal Gastrointestinal: Denies abdominal pain, diarrhea, nausea or vomiting Genitourinary Genitourinary ED: Denies dysuria or hematuria Musculoskeletal Musculoskeletal: Denies back pain or neck pain Integumentary Reports as per HPI, non-healing lesions, rash and wounds Neurologic Neurologic: Reports weakness and other Details: Occasional confusion. Weakness in both legs chronically. ; Denies headache(s) or paresthesias Psychiatric Psychiatric: Denies anxiety or suicidal thoughts EXAM Physical Exam Const Vital Signs: 05/12/21 12:48 05/12/21 13:23 Temperature 97.2 F L 97.2 F L Temperature Source Temporal Temporal Pulse Rate 81 81 Respiratory Rate 16 16 Blood Pressure 95/56 L 95/56 L Blood Pressure Mean 69 69 Pulse Ox 98 98 Oxygen Delivery Method Room Air Room Air Positive well nourished, well developed and unkempt General Appearance ED: unkempt, well developed and NAD HEENT Reports moist mucous membranes normocephalic and atraumatic Eyes PERRL and EOMs intact bilaterally Neck full ROM and supple Resp normal respiratory effort and clear to auscultation bilaterally Cardio regular rate and regular rhythm Heart Sounds: murmur systolic GI non-tender and non-distended Auscultation: normoactive bowel sounds Palpation: soft Back/Spine no CVA tenderness General Back: other FROM Extremity normal to inspection Extremity Narrative: Significant edema both lower extremities fairly symmetric. There is nontender erythema throughout the right lower leg that stops at the ankle, there are superficial wounds that are seeping clear fluid no bleeding at this time, no abscess or purulent drainage. In the short time the patient has been in the ER prior to evaluation, the sheets of the bed below this part of her leg are soaked in water. On her left calf, there is a nontender deep traumatic wound without any erythema, she is able to move all joints without any difficulty throughout both lower and upper extremities. General Extremety ED: Yes edema; Negative for pulses abnormal or tenderness General Extremity: edema; Negative for pulses abnormal Neuro oriented x3, CN's II-XII intact bilaterally and no sensory deficits noted Sensorium / Orientation: awake and alert Motor Exam: strength 5/5 throughout Psych Appearance: unkempt Skin Skin Narrative: Wounds as described above on legs. On the buttocks/ischial tuberosity region bilaterally, there are red sore intact wounds along with a couple areas on the proximal left thigh/buttock with superficial ulceration, there is more erythema surrounding this area and it is more tender. No deep ulcerative wounds. MDM MDM MDM Narrative Medical decision making narrative: Patient's wounds do not require admission. I think it is reasonable to put her on antibiotics because of the severe pain she is having in her buttock and the erythema around it, but nothing else looks infected. However, she has been getting a little more confused lately and her sodium is 118, so for this reason I think she should be admitted for monitoring until we can get her sodium back up. It looks like 126 was good for her in the past. Nurses cleansed and dressed her wounds, she should follow-up with wound care there. She was given a dose of Ancef empirically. Lab Data Attestation: I reviewed the patient's lab results. Labs: Laboratory Results - last 24 hr 05/12/21 05/12/21 05/12/21 13:50 13:50 14:25 WBC 7.4 RBC 4.30 Hgb 13.4 Hct 39.1 MCV 90.9 MCH 31.2 MCHC 34.3 RDW Std Deviation 43.2 RDW Coeff of Malini 13.1 Plt Count 340 MPV 8.6 Immature Gran % (Auto) 1.500 H Neut % (Auto) 76.5 H Lymph % (Auto) 11.1 L [place] % (Auto) 9.3 Eos % (Auto) 1.1 Baso % (Auto) 0.5 Absolute Neuts (auto) 5.7 Absolute Lymphs (auto) 0.82 L Nucleated RBC % 0 Sodium Cancelled 118 L* Potassium Cancelled 4.3 Chloride Cancelled 86 L Carbon Dioxide Cancelled 25.0 Anion Gap Cancelled 7 BUN Cancelled 14 Creatinine Cancelled 0.89 Estim Creat Clear Calc Cancelled 47.89 Est GFR (MDRD) Af Amer Cancelled 80 Est GFR (MDRD) Non-Af Cancelled 66 BUN/Creatinine Ratio Cancelled 15.7 Glucose Cancelled 108 H Calcium Cancelled 9.4 Discharge Plan Dx/Rx/DC Orders Clinical Impression: Acute hyponatremia, Wound of sacral region, Wound of lower extremity, Lymphedema of both lower extremities, ZA (acute kidney injury) Disposition Disposition: Acute Care [facility]
[2021-05-12] MEDS: Cefazolin 1 GM/50 ML BAG IV (13:56)
[2021-05-12 13:58] LABS: Absolute Lymphocyte Count 0.82 X10^3/uL (0.83-4.51); Absolute Neutrophil Count 5.7 X10^3/uL (2.0-7.7); Basophil# 0.04 X10^3/uL; Basophil% 0.5 % (0-1); Eosinophil# 0.08 X10^3/uL; Eosinophils% 1.1 % (0-5); Hematocrit 39.1 % (37-47); Hemoglobin 13.4 g/dL (12.0-15.0); Lymphocyte # 0.82 X10^3/ul (0.83-4.51); Lymphocyte % 11.1 % (19-41); Mean Corp Hgb Conc 34.3 g/dL (32-36); Mean Corpuscular Hgb 31.2 pg (27.0-32.0); Mean Corpuscular Volume 90.9 fL (81-99); Mean Platelet Vol. 8.6 fl (6.2-12.0); Monocyte# 0.69 X10^3/uL; Monocyte% 9.3 % (0-10); NRBC Flagged by Analyzer 0 % (0-5); Neutrophil # 5.65 X10^3/uL (2.7-7.7); Neutrophil % 76.5 % (47-70); Platelet Count 340 K/mm3 (150-450); RBC Distribution Width CV 13.1 % (11.6-14.6); RBC Distribution Width SD 43.2 fl (35.1-43.9); White Blood Count 7.4 K/mm3 (4.4-11.0)
[2021-05-12 14:48] LABS: Anion Gap 7 (5-15); BUN 14 mg/dL (7-18); BUN/Creat Ratio 15.7 RATIO (10-20); Calcium,Total 9.4 mg/dL (8.5-10.1); Chloride 86 mmol/L (98-107); Creatinine, Serum 0.89 mg/dL (0.55-1.02); EST Glomerular Filtration Rate 66 mL/min (>60); Est Glom Filt Rate - Afr Amer 80 mL/min (>60); Estimated Creatinine Clearance 47.89 ml/min; Glucose 108 mg/dL (74-106); Potassium 4.3 mmol/L (3.5-5.1); Sodium Level 118 mmol/L (136-145)
--- NOTE | 2021-05-12 16:10 | HP.PCM.HOS_ITS ---
HPI - General General Date of Admission: 05/12/21 HPI Narrative EUNICE BRAVO, is a 75 F who presents with a history of chronic lymphedema and multiple wounds, she was recently struck in her left leg by her wheelchair and has a new deep wound as well as wound over her buttock secondary to her inability to lay flat and constantly sitting in a chair. However her says that the biggest problem is that she has a chronic hyponatremia but she seemed more confused recently and on admission in the ER she was found to have a sodium of 118. Of note her creatinine is double what it normally is, today she is 0.89 but at baseline she is around 0.4. [facility] Medical History (Updated 05/12/21 @ 15:39 by Ann Levine) Acute CHF Acute on chronic systolic (congestive) heart failure Bilateral leg ulcer COPD (chronic obstructive pulmonary disease) Debility Dependence on supplemental oxygen Dependent edema Essential (primary) hypertension History of breast cancer Immobility Irregular heart beat Leg edema, left Leg edema, right Leg swelling Lumbar disc disease Lung mass New onset A. fib with RVR Nicotine dependence Non-ischemic cardiomyopathy Non-rheumatic tricuspid valve insufficiency Nonrheumatic mitral (valve) insufficiency Osteoporosis Paroxysmal atrial fibrillation Secondary pulmonary arterial hypertension Smoker Suspected chronic obstructive pulmonary disease based on initial evaluation Thrush, oral Tobacco abuse Tobacco abuse counseling Home Medications xhjnnwgm-sfi-nndn-FA-lutein 1 tab PO DAILY 10/05/19 [History Last Taken 05/11/21] albuterol sulfate 90 mcg/actuation aerosol inhaler 1 - 2 puff INHALATION Q4H PRN PRN #18 g 04/29/20 [Rx Last Taken 07/12/20] carvedilol 25 mg PO BID 07/12/20 [History Last Taken 05/11/21] fluticasone propion-salmeterol 2 puff INHALATION BID 07/12/20 [History Last Taken 05/11/21] ferrous sulfate 325 mg PO BID #60 tab 07/15/20 [Rx Last Taken 05/11/21] guaifenesin 1,200 mg PO BID #14 tab 07/15/20 [Rx Last Taken Unknown] torsemide 100 mg PO DAILY #30 tab 07/15/20 [Rx Last Taken 05/11/21] magnesium oxide 400 mg PO DAILY 05/12/21 [History Last Taken 05/11/21] potassium chloride 40 meq PO BID 05/12/21 [History Last Taken 05/11/21] rivaroxaban [Xarelto] 20 mg PO DAILY 05/12/21 [History Last Taken 05/11/21] tiotropium bromide [Spiriva Respimat] 2 inh INHALATION BID 05/12/21 [History Last Taken 05/11/21] Allergy/AdvReac Type Severity Reaction Status Date / Time albuterol sulfate Allergy Swelling Verified 05/12/21 12:48 [From Combivent] ipratropium bromide Allergy Swelling Verified 05/12/21 12:48 [From Combivent] metoprolol Allergy Laryngospas Verified 05/12/21 12:48 ms Sulfa (Sulfonamide Allergy Rash Verified 05/12/21 12:48 Antibiotics) beclomethasone [From Qvar] AdvReac COUGHING Verified 05/12/21 12:48 benzalkonium chloride AdvReac Rash Verified 05/12/21 12:48 [From Merthiolate (benzalkonium)] codeine AdvReac Chest Verified 05/12/21 12:48 tightness doxycycline AdvReac Abd Verified 05/12/21 12:48 cramps/diarrhea formoterol fumarate AdvReac PT UNSURE Verified 05/12/21 12:48 [From Dulera] OF REACTION hydrochlorothiazide AdvReac PT UNSURE Verified 05/12/21 12:48 OF REACTION ibuprofen [From Advil] AdvReac PT UNSURE Verified 05/12/21 12:48 OF REACTION iodine AdvReac Itching Verified 05/12/21 12:48 merbromin AdvReac PT UNSURE Verified 05/12/21 12:48 OF REACTION mometasone furoate AdvReac PT UNSURE Verified 05/12/21 12:48 [From Dulera] OF REACTION oseltamivir [From Tamiflu] AdvReac uterine Verified 05/12/21 12:48 pain prednisone AdvReac Abd Verified 05/12/21 12:48 cramps/diarrhea PLASTIC TAPE Allergy Rash Uncoded 05/12/21 12:48 Family History Father Emphysema of lung Sister Cancer uterine cancer Surgical History (Updated 05/12/21 @ 15:39 by Ann Levine) History of left heart catheterization (11/09/19) History of left mastectomy History of lumpectomy of right breast History of tubal ligation polyp removal S/P lumpectomy, right breast Social History Smoking Status: Current every day smoker tobacco type: cigarettes second hand exposure: Yes alcohol intake: current alcohol intake frequency: 0-2 drinks per day Alcohol type: wine substance use type: does not use caffeine: No what type of physical activity do you participate in: none seatbelt use: always do you feel safe at home: Yes ROS Constitutional Constitutional: Denies chills, fatigue, fever(s) or malaise Eyes Eyes: Denies blurry vision ENT HEENT: Denies headache(s) or nasal discharge Cardiovascular Cardiovascular: Reports leg edema; Denies chest pain, dyspnea on exertion or syncope Respiratory/Chest Respiratory/Chest: Denies cough, shortness of breath at rest or shortness of breath with exertion Gastrointestinal Gastrointestinal: Denies constipation, diarrhea, nausea or vomiting Genitourinary Genitourinary: Denies dysuria Integumentary Integumentary: Reports wounds Neurologic Neurologic: Reports confusion; Denies focal weakness, numbness or tremor(s) Psychiatric Psychiatric: Denies anxiety or depression Vital Signs Vital Signs Vital Signs: 05/12/21 12:48 05/12/21 13:23 05/12/21 15:30 Temperature 97.2 F L 97.2 F L Temperature Source Temporal Temporal Pulse Rate 81 81 86 Respiratory Rate 16 16 Blood Pressure 95/56 L 95/56 L 120/69 Blood Pressure Mean 69 69 86 Pulse Ox 98 98 97 Oxygen Delivery Method Room Air Room Air Room Air 05/12/21 15:36 Temperature 97.2 F L Temperature Source Temporal Pulse Rate 86 Respiratory Rate 16 Blood Pressure 120/69 Blood Pressure Mean 86 Pulse Ox 97 Oxygen Delivery Method Room Air Weight Weight: 150 lb Body Mass Index (BMI) 25.7 Physical Exam Const alert and no apparent distress General Appearance: cooperative Orientation / Consciousness: oriented to person and oriented to place; Negative for oriented to time HEENT normocephalic Mouth: dry mucous membranes Eyes PERRL, EOMs intact bilaterally and conjunctivae normal Neck supple and no JVD Resp normal respiratory effort, no retractions, no use of accessory muscles and clear to auscultation bilaterally Auscultation: Negative for crackles, rales, rhonchi or wheezes Cardio regular rate, regular rhythm, S1 normal heart sound, S2 normal heart sound and no murmurs GI soft to palpation, non-tender and non-distended; Negative for hepatosplenomegaly Extremity General Extremity: edema bilateral; Negative for clubbing or cyanosis Skin Skin Narrative: Bilateral redness with multiple wounds secondary to significant lymphedema. She has inflammation intergluteal fold consistent with yeast infection Neuro no focal motor deficits and no sensory deficits noted Psych affect normal Appearance: appropriate Results Lab / Micro Data Result Diagrams: 05/12/21 13:50 05/12/21 14:25 Labs: Laboratory Results - last 24 hr 05/12/21 13:50: WBC 7.4, RBC 4.30, Hgb 13.4, Hct 39.1, MCV 90.9, MCH 31.2, MCHC 34.3, RDW Std Deviation 43.2, RDW Coeff of Malini 13.1, Plt Count 340, MPV 8.6, Immature Gran % (Auto) 1.500 H, Neut % (Auto) 76.5 H, Lymph % (Auto) 11.1 L, [place] % (Auto) 9.3, Eos % (Auto) 1.1, Baso % (Auto) 0.5, Absolute Neuts (auto) 5.7, Absolute Lymphs (auto) 0.82 L, Nucleated RBC % 0 05/12/21 13:50: Sodium Cancelled, Potassium Cancelled, Chloride Cancelled, C arbon Dioxide Cancelled, Anion Gap Cancelled, BUN Cancelled, Creatinine Cancelled, Estim Creat Clear Calc Cancelled, Est GFR (MDRD) Af Amer Cancelled, Est GFR (MDRD) Non-Af Cancelled, BUN/Creatinine Ratio Cancelled, Glucose Cancelled, Calcium Cancelled 05/12/21 14:25: Sodium 118 L*, Potassium 4.3, Chloride 86 L, Carbon Dioxide 25 .0, Anion Gap 7, BUN 14, Creatinine 0.89, Estim Creat Clear Calc 47.89, Est GFR (MDRD) Af Amer 80, Est GFR (MDRD) Non-Af 66, BUN/Creatinine Ratio 15.7, Glucose 108 H, Calcium 9.4 Assessment & Plan Assessment/Plan (1) Hyponatremia: (2) Lymphedema of both lower extremities: PLAN: 1. Confusion secondary to acute on chronic hyponatremia with an ZA -We will obtain a urine sodium and a urine osmolality to assist in evaluation -Creatinine is 0.89 on admission baseline is around 0.4, will provide her with some minimal IV fluids -She states a decrease in p.o. intake, indicative of potential hypovolemic hyponatremia -Some of her episodes of hyponatremia have been secondary to CHF exacerbations however she is also had episodes of SIADH -If no improvement with IV fluids we will get nephrology on board, she does have a history of lung mass, which was a non-small cell lung cancer at the time of discovery 2. Bilateral lymphedema/chronic systolic CHF/venous ulcer/HTN/HLD/A. fi b/peripheral artery disease -We will monitor blood pressure, and if stabilizes can restart her home Coreg -Continue with Xarelto -We will hold torsemide for now -Would recommend wound treatment and wrapping lower extremities, consult to the wound care nurse -Wounds in her groin and inner buttock are consistent with a yeast, will provide topical barrier cream 3. COPD not currently in exacerbation -Monitor and can place on duo nebs DVT: Xarelto Charges/Coding Visit Charges OBSV E&M: 53556 Initial observation care L3
--- NOTE | 2021-05-12 16:18 | ED.RN ---
Aquacel AG placed to RT ankle wound & LT upper calf wound. 4x4 placed over each. Trauma drsg used to wrap leg d/t copious amt of fluids draining. Then wrapped in Kerlix & EVELIN wraps. Pt tolerated well.
[2021-05-12] MEDS: 0.9% Normal Saline 1,000 ML 100 ML IV (17:08)
[2021-05-12] MEDS: Rivaroxaban 20 MG Tablet PO (17:11)
[2021-05-12] MEDS: Ferrous Sulfate 325 MG Tablet PO (17:11)
[2021-05-12] MEDS: Menthol/Lanolin/Calamine/Znox 113 GM Tube 1 APPLIC TOPICAL ×2 (18:51→21:46)
[2021-05-12] MEDS: Nystatin/Triamcin Cream Tube 1 APPLIC TOPICAL (18:51)
[2021-05-12] MEDS: Ipratropium/Albuterol Sulfate 3 ML AMPUL.NEB INHALATION (19:28)
--- NOTE | 2021-05-12 20:39 | CPS ---
Patient reported to have allergy to both albuterol and ipratropium bromide per chart. 1 minute of duoneb tx was given and TECHNICAL ENGINEER stopped tx. Clarified with pharmacy on med order. Pharmacist reported that med is fine to give per recent documented visits and review of home meds. She was observed to have been given Duoneb in the past with no issues. TECHNICAL ENGINEER went back to give patient rest of tx and she said that she did not want one at this time.
[2021-05-12] MEDS: guaiFENesin 1,200 MG Tablet 1200 MG PO (21:46)
[2021-05-13] VITALS (11 sets, daily range): BP systolic 97–121; BP diastolic 40–68; PULSE 65–99; RESP 16–22; TEMP 36.5–36.7; O2SAT 94–98
[2021-05-13] MEDS: 0.9% Normal Saline 1,000 ML 100 ML IV ×3 (01:46→20:55)
[2021-05-13 07:13] LABS: Absolute Lymphocyte Count 0.73 X10^3/uL (0.83-4.51); Absolute Neutrophil Count 4.9 X10^3/uL (2.0-7.7); Basophil# 0.04 X10^3/uL; Basophil% 0.6 % (0-1); Eosinophil# 0.07 X10^3/uL; Eosinophils% 1.1 % (0-5); Hematocrit 36.9 % (37-47); Hemoglobin 12.3 g/dL (12.0-15.0); Lymphocyte # 0.73 X10^3/ul (0.83-4.51); Lymphocyte % 11.3 % (19-41); Mean Corp Hgb Conc 33.3 g/dL (32-36); Mean Corpuscular Hgb 30.8 pg (27.0-32.0); Mean Corpuscular Volume 92.5 fL (81-99); Mean Platelet Vol. 8.3 fl (6.2-12.0); Monocyte% 10.8 % (0-10); NRBC Flagged by Analyzer 0 % (0-5); Neutrophil # 4.85 X10^3/uL (2.7-7.7); Neutrophil % 74.8 % (47-70); Platelet Count 287 K/mm3 (150-450); RBC Distribution Width CV 12.5 % (11.6-14.6); RBC Distribution Width SD 42.5 fl (35.1-43.9); Red Blood Count 3.99 M/mm3 (4.2-5.4); White Blood Count 6.5 K/mm3 (4.4-11.0)
[2021-05-13] MEDS: Ipratropium/Albuterol Sulfate 3 ML AMPUL.NEB INHALATION ×3 (07:19→19:11)
[2021-05-13 08:05] LABS: Anion Gap 6 (5-15); BUN 9 mg/dL (7-18); BUN/Creat Ratio 13.2 RATIO (10-20); Calcium,Total 9.2 mg/dL (8.5-10.1); Chloride 93 mmol/L (98-107); Creatinine, Serum 0.68 mg/dL (0.55-1.02); EST Glomerular Filtration Rate 90 mL/min (>60); Est Glom Filt Rate - Afr Amer 109 mL/min (>60); Estimated Creatinine Clearance 42.62 ml/min; Glucose 92 mg/dL (74-106); Potassium 4.5 mmol/L (3.5-5.1); Sodium Level 122 mmol/L (136-145)
[2021-05-13] MEDS: guaiFENesin 1,200 MG Tablet 1200 MG PO ×2 (09:04→20:54)
[2021-05-13] MEDS: Nystatin/Triamcin Cream Tube 1 APPLIC TOPICAL ×2 (09:04→20:54)
[2021-05-13] MEDS: Menthol/Lanolin/Calamine/Znox 113 GM Tube 1 APPLIC TOPICAL ×4 (09:05→20:54)
[2021-05-13] MEDS: Acetaminophen 325 MG Tablet 650 MG PO (09:29)
--- NOTE | 2021-05-13 10:31 | PN.HOSP_ITS ---
Subjective Subjective Feels better today, no new issues overnight. Confusion has resolved. Objective Data Objective Data Vital Signs: Vital Signs Temp Pulse Resp BP Pulse Ox 98.1 F 77 16 115/56 L 97 05/13/21 09:02 05/13/21 09:02 05/13/21 09:02 05/13/21 09:02 05/13/21 09:02 Oxygen Delivery Method Room Air Weight: 154 lb 11.2 oz Body Mass Index (BMI) 26.5 Intake & Output: Intake and Output for Last 24 Hours 05/12/21 05/13/21 05/14/21 03:59 03:59 03:59 Intake Total 1353.33 / 1353.33 100 / 100 Output Total 150 / 150 Balance 1203.33 / 1203.33 100 / 100 Lab / Micro Data Result Diagrams: 05/13/21 06:47 05/13/21 06:47 Labs: Laboratory Results - last 24 hr 05/12/21 13:50: WBC 7.4, RBC 4.30, Hgb 13.4, Hct 39.1, MCV 90.9, MCH 31.2, MCHC 34.3, RDW Std Deviation 43.2, RDW Coeff of Malini 13.1, Plt Count 340, MPV 8.6, Immature Gran % (Auto) 1.500 H, Neut % (Auto) 76.5 H, Lymph % (Auto) 11.1 L, [place] % (Auto) 9.3, Eos % (Auto) 1.1, Baso % (Auto) 0.5, Absolute Neuts (auto) 5.7, Absolute Lymphs (auto) 0.82 L, Nucleated RBC % 0 05/12/21 13:50: Sodium Cancelled, Potassium Cancelled, Chloride Cancelled, Carbon Dioxide Cancelled, Anion Gap Cancelled, BUN Cancelled, Creatinine Cancelled, Estim Creat Clear Calc Cancelled, Est GFR (MDRD) Af Amer Cancelled, Est GFR (MDRD) Non-Af Cancelled, BUN/Creatinine Ratio Cancelled, Glucose Canc elled, Calcium Cancelled 05/12/21 14:25: Sodium 118 L*, Potassium 4.3, Chloride 86 L, Carbon Dioxide 25.0, Anion Gap 7, BUN 14, Creatinine 0.89, Estim Creat Clear Calc 47.89, Est GFR (MDRD) Af Amer 80, Est GFR (MDRD) Non-Af 66, BUN/Creatinine Ratio 15.7, Glucose 108 H, Calcium 9.4 05/13/21 06:47: WBC 6.5, RBC 3.99 L, Hgb 12.3, Hct 36.9 L, MCV 92.5, MCH 30.8, MCHC 33.3, RDW Std Deviation 42.5, RDW Coeff of Malini 12.5, Plt Count 287, MPV 8 .3, Immature Gran % (Auto) 1.400 H, Neut % (Auto) 74.8 H, Lymph % (Auto) 11.3 L, [place] % (Auto) 10.8 H, Eos % (Auto) 1.1, Baso % (Auto) 0.6, Absolute Neuts (auto) 4.9, Absolute Lymphs (auto) 0.73 L, Nucleated RBC % 0 05/13/21 06:47: Sodium 122 L, Potassium 4.5, Chloride 93 L, Carbon Dioxide 23.0, Anion Gap 6, BUN 9, Creatinine 0.68, Estim Creat Clear Calc 42.62, Est GFR (MDRD) Af Amer 109, Est GFR (MDRD) Non-Af 90, BUN/Creatinine Ratio 13.2, Glucose 92, Calcium 9.2 Physical Exam Const alert, oriented x3 and no apparent distress General Appearance: cooperative HEENT normocephalic and moist oral mucous membranes Eyes PERRL, EOMs intact bilaterally and conjunctivae normal Neck supple and no JVD Resp normal respiratory effort, no retractions, no use of accessory muscles and clear to auscultation bilaterally Auscultation: Negative for crackles, rales, rhonchi or wheezes Cardio regular rate, regular rhythm, S1 normal heart sound, S2 normal heart sound and no murmurs GI soft to palpation, non-tender and non-distended; Negative for hepatosplenomegaly Extremity no clubbing, cyanosis or edema General Extremity: edema bilateral; Negative for clubbing or cyanosis Skin no rashes or lesions noted Skin Narrative: Bilateral redness with multiple wounds secondary to significant lymphedema. She has inflammation intergluteal fold consistent with yeast infection Neuro no focal motor deficits and no sensory deficits noted Psych affect normal Appearance: appropriate Assessment & Plan Assessment/Plan (1) Hyponatremia: (2) Lymphedema of both lower extremities: PLAN: 1. Confusion secondary to acute on chronic hyponatremia with an ZA -We will obtain a urine sodium and a urine osmolality to assist in evaluation -Creatinine is 0.89 on admission baseline is around 0.4, will provide her with some minimal IV fluids, creatinine is improved hyponatremia -She states a decrease in p.o. intake, indicative of potential hypovolemic hyponatremia -Some of her episodes of hyponatremia have been secondary to CHF exacerbations however she is also had episodes of SIADH -Sodium up to 122 today from 118, with IV fluids. 2. Bilateral lymphedema/chronic systolic CHF/venous ulcer/HTN/HLD/A. fib/peripheral artery disease -We will monitor blood pressure, and if stabilizes can restart her home Coreg -Continue with Xarelto -We will hold torsemide for now -Would recommend wound treatment and wrapping lower extremities, consult to the wound care nurse -Wounds in her groin and inner buttock are consistent with a yeast, will provide topical barrier cream 3. COPD not currently in exacerbation -Monitor and can place on duo nebs DVT: Xarelto Charges/Coding Visit Charges OBSV E&M: 60903 Subsequent observation care L2
[2021-05-13] MEDS: Ferrous Sulfate 325 MG Tablet PO ×2 (11:38→16:12)
[2021-05-13 15:38] LABS: Urine Chloride < 10 mmol/L (Not Establ.); Urine Sodium < 5 mmol/L (Not Establ.)
[2021-05-13 15:57] LABS: Osmolality, Urine 277 mOsm/KG
[2021-05-13] MEDS: Rivaroxaban 20 MG Tablet PO (16:12)
[2021-05-14 02:30] VITALS: BP 115/68; PULSE 88; RESP 20; TEMP 36.8; O2SAT 97
[2021-05-14 06:33] VITALS: PULSE 64
[2021-05-14] MEDS: 0.9% Normal Saline 1,000 ML 100 ML IV (06:50)
[2021-05-14 07:04] LABS: Anion Gap 5 (5-15); BUN 5 mg/dL (7-18); BUN/Creat Ratio 10.7 RATIO (10-20); Calcium,Total 9.1 mg/dL (8.5-10.1); Chloride 101 mmol/L (98-107); Creatinine, Serum 0.47 mg/dL (0.55-1.02); EST Glomerular Filtration Rate 138 mL/min (>60); Est Glom Filt Rate - Afr Amer 167 mL/min (>60); Estimated Creatinine Clearance 42.62 ml/min; Glucose 95 mg/dL (74-106); Sodium Level 129 mmol/L (136-145)
[2021-05-14 07:08] VITALS: PULSE 90; RESP 18; O2SAT 97
[2021-05-14] MEDS: Ipratropium/Albuterol Sulfate 3 ML AMPUL.NEB INHALATION (07:08)
--- NOTE | 2021-05-14 08:49 | NURSING ---
Pt had bedside thoracentesis. Time out called by Dr. Cary at 08:22. 1360ccs of dark tea/blood tinged fluid removed by Dr. Cary.
[2021-05-14 09:35] VITALS: BP 102/51; PULSE 72; RESP 20; TEMP 36.7; O2SAT 97
[2021-05-14] MEDS: guaiFENesin 1,200 MG Tablet 1200 MG PO (09:37)
[2021-05-14] MEDS: Nystatin/Triamcin Cream Tube 1 APPLIC TOPICAL (09:37)
[2021-05-14] MEDS: Menthol/Lanolin/Calamine/Znox 113 GM Tube 1 APPLIC TOPICAL (09:37)
--- NOTE | 2021-05-14 10:33 | PCM.DC ---
Discharge Instructions Diet Discharge Diet: Low fat / Low cholesterol Activity Discharge Activity: Return to Normal Activity Dressing / Incision Call your doctor if you observe: Fever of 101 or Higher, Shortness of breath, Dizziness, Swelling in the ankles, Chest pain and Increased palpitations (irregular heartbeat) Follow Up Care Test Results: Test results from this visit will be discussed in further detail at your follow-up appointment, if applicable. Discharge Plan Admission Admit Date/Time: 05/13/21 14:17 Attending Provider: Damian Root Primary Care Provider: Amber Sanders Instructions Patient Instructions: ED Hyponatremia Additional Instructions / Restrictions: Follow-up with wound care center, and obtain an outpatient BMP to monitor your sodium by your PCP. Discharge Orders/Prescriptions Prescriptions: Continued mrmmildt-lyc-zyvd-FA-lutein 1 EACH tablet 1 tab PO DAILY RF: 0 carvedilol 25 MG tablet 25 mg PO BID RF: 0 fluticasone propion-salmeterol 1 PUFF inhaler 2 puff inhalation BID RF: 0 guaifenesin 1,200 MG tablet 1,200 mg PO BID Qty: 14 RF: 0 ferrous sulfate 325 MG tablet 325 mg PO BID Qty: 60 RF: 0 potassium chloride 10 mEq capsule, extended release 40 meq PO BID RF: 0 magnesium oxide 400 mg (241.3 mg magnesium) tablet 400 mg PO DAILY RF: 0 Xarelto 20 mg tablet 20 mg PO DAILY RF: 0 Spiriva Respimat 2.5 mcg/actuation mist 2 inh INHALATION BID RF: 0 albuterol sulfate 90 mcg/actuation HFA aerosol inhaler 1 - 2 puff INHALATION Q4H PRN PRN (Reason: Asthma) Qty: 18 RF: 6 Held torsemide 100 MG tablet 100 mg PO DAILY Qty: 30 RF: 1 Hold Instructions: Resume on 05/16/21. Referrals / Follow Up: Amber Sanders MD [Primary Care Provider] - In 1 Week Disposition Disposition (needs filled in before D/C Order can be placed): Home, Self Care
--- NOTE | 2021-05-14 10:40 | DS.PCM_ITS ---
Providers Date of Admission: 05/13/21 Primary Care Physician: Dr. Amber Sanders MD Consultations 05/12/21 16:43 Consult: Onc/Wound/loan broker Routine Comment: Reason For Visit: HYPONATREMIA Diagnosis Discharge Diagnosis (1) Hyponatremia: Status: Acute Code(s): E87.1 - Hypo-osmolality and hyponatremia (2) Lymphedema of both lower extremities: Status: Acute Code(s): I89.0 - Lymphedema, not elsewhere classified Medications at Discharge Home Medications snevixol-ikm-zmyy-FA-lutein 1 tab PO DAILY 10/05/19 albuterol sulfate 90 mcg/actuation aerosol inhaler 1 - 2 puff INHALATION Q4H PRN PRN #18 g 04/29/20 carvedilol 25 mg PO BID 07/12/20 fluticasone propion-salmeterol 2 puff INHALATION BID 07/12/20 ferrous sulfate 325 mg PO BID #60 tab 07/15/20 guaifenesin 1,200 mg PO BID #14 tab 07/15/20 torsemide 100 mg PO DAILY #30 tab 07/15/20 Spiriva Respimat 2 inh INHALATION BID 05/12/21 Xarelto 20 mg PO DAILY 05/12/21 magnesium oxide 400 mg PO DAILY 05/12/21 potassium chloride 40 meq PO BID 05/12/21 Hospital Course Operations None Procedures None Summary of Care Provided Minutes Spent on Discharge: 40 Hospital Course: Per HPI: EUNICE BRAVO, is a 75 F who presents with a history of chronic lymphedema and multiple wounds, she was recently struck in her left leg by her wheelchair and has a new deep wound as well as wound over her buttock secondary to her inability to lay flat and constantly sitting in a chair. However her says that the biggest problem is that she has a chronic hy ponatremia but she seemed more confused recently and on admission in the ER she was found to have a sodium of 118. Of note her creatinine is double what it normally is, today she is 0.89 but at baseline she is around 0.4. Hospital Course: 1. Confusion secondary to acute on chronic hyponatremia with an [id number]-old female with a history of hyponatremia secondary to her medications, presents to the hospital with confusion and hyponatremia. Chest has chronic lymphedema which is why she is receiving/high dose of diuretics. She has had issues with hyponatremia in the past especially with heart failure exacerbations and also SIADH. During this admission she was found to have an ZA, her creatinine had doubled from her baseline of 0.4 to about 1.9. She was started on IV fluids and has had her sodium increased from 1 18-1 29 and she is feeling much better today . We will plan for discharge to home. I did discuss the plan and she expressed understanding of the benefits of going home and would like to go home today. She will need to hold her torsemide until Saturday and she will need to follow-up with her PCP as an outpatient for monitoring of her hyponatremia. She also has chronic venous ulcers as well as peripheral artery disease and therefore she bharath l need to follow-up with the wound care as well for management however she was afebrile did not have an elevated white count therefore I did not feel that any of these wounds were infected and/or of need of treatment with antibiotics. 2. Bilateral lymphedema, chronic systolic CHF, venous ulcers, hypertension, hyperlipidemia, A. fib, peripheral artery disease, COPD are all chronic medical conditions which complicate her care. Her own medications were continued where appropriate. Physical Exam Const alert, oriented x3 and no apparent distress General Appearance: cooperative HEENT normocephalic and moist oral mucous membranes Eyes PERRL, EOMs intact bilaterally and conjunctivae normal Neck supple and no JVD Resp normal respiratory effort, no retractions, no use of accessory muscles and clear to auscultation bilaterally Auscultation: Negative for crackles, rales, rhonchi or wheezes Cardio regular rate, regular rhythm, S1 normal heart sound, S2 normal heart sound and no murmurs GI soft to palpation, non-tender and non-distended; Negative for hepatosplenomegaly Extremity no clubbing, cyanosis or edema General Extremity: edema bilateral; Negative for clubbing or cyanosis Skin no rashes or lesions noted Skin Narrative: Bilateral redness with multiple wounds secondary to significant lymphedema. She has inflammation intergluteal fold consistent with yeast infection Neuro no focal motor deficits and no sensory deficits noted Psych affect normal Appearance: appropriate Medical Records Data Medical Nutrition Assessment Dietitian: Nutrition Therapy Diagnosis Start: 05/13/21 15:50 Freq: Status: Active Protocol: Document 05/13/21 16:04 BP (Rec: 05/13/21 16:04 BP [id number]) Nutrition Malnutrition Evidence of Malnutrition Exists No Intake Problem Increased Nutrient Needs (specify) Etiology protein need related to wound healing Signs/Symptoms as evidenced by inner thigh/ right ankle ulcerations, and left upper calf pressure injury. Status Active Problem Inadequate Oral Intake Etiology related to lack of motivation to consume sufficient energy/ protein to meet estimated nutrition needs Signs/Symptoms as evidenced by pt report dislike of food served consuming <50% at meals. Status Active Problem Recommendation Dietitian Recommendations/Changes Will liberalize pt to regular diet with no added salt as pt with poor intake at meals. Will provide Pj 1pkt BID w/ meals & ensure enlive 120 ml 4x/day with medpass for additional juju/protein if consumed. Weight / BMI Weight Weight: 154 lb 11.209 oz Body Mass Index (BMI) 26.5 ABG / Lab / Microbiology Data Result Diagrams: 05/13/21 06:47 05/14/21 05:52 Laboratory: Laboratory Results - last 24 hr 05/13/21 09:45: Urine Osmolality 277 05/13/21 09:45: Ur Random Sodium < 5, Urine Potassium 26.0, Urine Chloride < 10 05/14/21 05:52: Sodium 129 L, Potassium 4.0, Chloride 101, Carbon Dioxide 23.0, Anion Gap 5, BUN 5 L, Creatinine 0.47 L, Estim Creat Clear Calc 42.62, Est GFR (MDRD) Af Amer 167, Est GFR (MDRD) Non-Af 138, BUN/Creatinine Ratio 10.7, Glucose 95, Calcium 9.1 D/C Instructions Discharge Diet: Low fat / Low cholesterol Call your doctor if you observe: Fever of 101 or Higher, Shortness of breath, Dizziness, Swelling in the ankles, Chest pain and Increased palpitations (irregular heartbeat) Meaningful Use Info Meaningful Use Diagnoses (Choose all that apply): None applicable Discharge Plan Admission Admit Date/Time: 05/13/21 14:17 Attending Provider: Damian Root Primary Care Provider: Amber Sanders Instructions Patient Instructions: ED Hyponatremia Additional Instructions / Restrictions: Follow-up with wound care center, and obtain an outpatient BMP to monitor your sodium by your PCP. Discharge Orders/Prescriptions Prescriptions: Continued jvzifwle-cso-dguz-FA-lutein 1 EACH tablet 1 tab PO DAILY RF: 0 carvedilol 25 MG tablet 25 mg PO BID RF: 0 fluticasone propion-salmeterol 1 PUFF inhaler 2 puff inhalation BID RF: 0 guaifenesin 1,200 MG tablet 1,200 mg PO BID Qty: 14 RF: 0 ferrous sulfate 325 MG tablet 325 mg PO BID Qty: 60 RF: 0 potassium chloride 10 mEq capsule, extended release 40 meq PO BID RF: 0 magnesium oxide 400 mg (241.3 mg magnesium) tablet 400 mg PO DAILY RF: 0 Xarelto 20 mg tablet 20 mg PO DAILY RF: 0 Spiriva Respimat 2.5 mcg/actuation mist 2 inh INHALATION BID RF: 0 albuterol sulfate 90 mcg/actuation HFA aerosol inhaler 1 - 2 puff INHALATION Q4H PRN PRN (Reason: Asthma) Qty: 18 RF: 6 Held torsemide 100 MG tablet 100 mg PO DAILY Qty: 30 RF: 1 Hold Instructions: Resume on 05/16/21. Referrals / Follow Up: Amber Sanders MD [Primary Care Provider] - In 1 Week Disposition Disposition (needs filled in before D/C Order can be placed): Home, Self Care Charges/Coding Visit Charges Inpatient E&M: 38464 Disch Hosp
== END 2021-05-14 11:32 | disposition home or self-care (01) | DRG 641 ==
LOC: ED 15:47 → PCU 16:13
PROVIDERS: Admitting Provider Family Medicine; Emergency Provider Emergency Medicine; PCP Internal Medicine; Visit Provider Family Medicine
DX: E87.1 Hypo-osmolality and hyponatremia (principal); N17.9 Acute kidney failure, unspecified; I50.22 Chronic systolic (congestive) heart failure; L97.919 Non-pressure chronic ulcer of unspecified part of right lower leg with unspecified severity; L97.929 Non-pressure chronic ulcer of unspecified part of left lower leg with unspecified severity; I11.0 Hypertensive heart disease with heart failure; B37.2 Candidiasis of skin and nail; R41.0 Disorientation, unspecified; I89.0 Lymphedema, not elsewhere classified; M79.89 Other specified soft tissue disorders; I48.0 Paroxysmal atrial fibrillation; J44.9 Chronic obstructive pulmonary disease, unspecified; E78.5 Hyperlipidemia, unspecified; I73.9 Peripheral vascular disease, unspecified; F17.210 Nicotine dependence, cigarettes, uncomplicated; Z99.3 Dependence on wheelchair; Z79.01 Long term (current) use of anticoagulants; Z79.899 Other long term (current) drug therapy; Z99.81 Dependence on supplemental oxygen; Z85.3 Personal history of malignant neoplasm of breast
CPT/HCPCS: 36415; 80048; 82436; 83935; 84133; 84300; 85025; 94640; 97162; 97166; 97802; 99285; 99406; J7030; A4216

== ENCOUNTER 2021-05-20 10:59 | Inpatient (IN) | payer MEDICARE, OTHER, SELFPAY ==
[2021-05-12 16:33] VITALS: BMI 26.5
[2021-05-20] VITALS (8 sets, daily range): BP systolic 88–109; BP diastolic 38–65; PULSE 73–95; RESP 16–18; TEMP 35.8–36.9; O2SAT 94–100; BMI 26.5; BMI 28.1
--- NOTE | 2021-05-20 11:47 | EX.ED.DYSGE1 ---
HPI History of Present Illness Chief Complaint: Wound Informant: patient and family Onset/Context/Timing Onset: Weeks Narrative Narrative: Patient presents with family secondary to wounds and pain on her buttocks. Symptoms have been ongoing for several weeks. She denies any drainage from the area. Patient does sit in her wheelchair the majority of the time and this is felt to be pressure from sitting. She was recently in the hospital for hyponatremia. Discharge noted that time stated that the wounds did not appear to be infected and she had no white count. Family states they called yesterday and talked with one of the nurses. It is felt the patient needs to be placed in rehab for therapy. They presented today for evaluation. [facility] Medical History (Updated 05/20/21 @ 13:[address] Ann Randle MD) Acute on chronic systolic (congestive) heart failure Bilateral leg ulcer COPD (chronic obstructive pulmonary disease) Debility Dependence on supplemental oxygen Dependent edema Essential (primary) hypertension History of breast cancer Immobility Irregular heart beat Leg edema, left Leg edema, right Leg swelling Lumbar disc disease Lung mass New onset A. fib with RVR Nicotine dependence Non-ischemic cardiomyopathy Non-rheumatic tricuspid valve insufficiency Nonrheumatic mitral (valve) insufficiency Osteoporosis Paroxysmal atrial fibrillation Secondary pulmonary arterial hypertension Smoker Suspected chronic obstructive pulmonary disease based on initial evaluation Thrush, oral Tobacco abuse Tobacco abuse counseling Wound cellulitis Home Medications jnxvsqzx-rpo-qxqs-FA-lutein 1 tab PO DAILY 10/05/19 [History Last Taken 05/11/21] albuterol sulfate 90 mcg/actuation aerosol inhaler 1 - 2 puff INHALATION Q4H PRN PRN #18 g 04/29/20 [Rx Last Taken 07/12/20] carvedilol 25 mg PO BID 07/12/20 [History Last Taken 05/11/21] fluticasone propion-salmeterol 2 puff INHALATION BID 07/12/20 [History Last Taken 05/11/21] ferrous sulfate 325 mg PO BID #60 tab 07/15/20 [Rx Last Taken 05/11/21] guaifenesin 1,200 mg PO BID #14 tab 07/15/20 [Rx Last Taken Unknown] torsemide 100 mg PO DAILY #30 tab 07/15/20 [Rx Last Taken 05/11/21] Spiriva Respimat 2 inh INHALATION BID 05/12/21 [History Last Taken 05/11/21] Xarelto 20 mg PO DAILY 05/12/21 [History Last Taken 05/11/21] magnesium oxide 400 mg PO DAILY 05/12/21 [History Last Taken 05/11/21] potassium chloride 40 meq PO BID 05/12/21 [History Last Taken 05/11/21] Allergy/AdvReac Type Severity Reaction Status Date / Time albuterol sulfate Allergy Swelling Verified 05/20/21 11:57 [From Combivent] ipratropium bromide Allergy Swelling Verified 05/20/21 11:57 [From Combivent] metoprolol Allergy Laryngospas Verified 05/20/21 11:57 ms Sulfa (Sulfonamide Allergy Rash Verified 05/20/21 11:57 Antibiotics) beclomethasone [From Qvar] AdvReac COUGHING Verified 05/20/21 11:57 benzalkonium chloride AdvReac Rash Verified 05/20/21 11:57 [From Merthiolate (benzalkonium)] codeine AdvReac Chest Verified 05/20/21 11:57 tightness doxycycline AdvReac Abd Verified 05/20/21 11:57 cramps/diarrhea formoterol fumarate AdvReac PT UNSURE Verified 05/20/21 11:57 [From Dulera] OF REACTION hydrochlorothiazide AdvReac PT UNSURE Verified 05/20/21 11:57 OF REACTION ibuprofen [From Advil] AdvReac PT UNSURE Verified 05/20/21 11:57 OF REACTION iodine AdvReac Itching Verified 05/20/21 11:57 merbromin AdvReac PT UNSURE Verified 05/20/21 11:57 OF REACTION mometasone furoate AdvReac PT UNSURE Verified 05/20/21 11:57 [From Dulera] OF REACTION oseltamivir [From Tamiflu] AdvReac uterine Verified 05/20/21 11:57 pain prednisone AdvReac Abd Verified 05/20/21 11:57 cramps/diarrhea PLASTIC TAPE Allergy Rash Uncoded 05/20/21 11:57 Family History Father Emphysema of lung Sister Cancer uterine cancer Surgical History History of left heart catheterization (01/20/20) History of left mastectomy History of lumpectomy of right breast History of tubal ligation polyp removal S/P lumpectomy, right breast Social History Smoking Status: Current every day smoker tobacco type: cigarettes second hand exposure: Yes alcohol intake: current alcohol intake frequency: 0-2 drinks per day Alcohol type: wine substance use type: does not use caffeine: No what type of physical activity do you participate in: none seatbelt use: always do you feel safe at home: Yes ROS ROS ED Constitutional Constitutional ED: Denies chills or fever(s) Eyes Eyes: Denies change in vision ENT ENT ED: Denies sore throat Cardiovascular Cardiovascular: Denies chest pain Respiratory/Chest Respiratory/Chest: Denies cough or dyspnea Gastrointestinal Gastrointestinal: Denies abdominal pain, diarrhea, nausea or vomiting Genitourinary Genitourinary ED: Denies dysuria Musculoskeletal Musculoskeletal: Reports other Details: Pain along bilateral buttocks ; Denies back pain Integumentary Reports other Details: Pressure sores on buttock Neurologic Neurologic: Denies headache(s) or weakness Psychiatric Psychiatric: Denies anxiety or depression Endocrine Endocrinology: Denies polydipsia or polyuria Allergic/Immunologic Allergic/Immunologic ED: Denies urticaria EXAM Physical Exam Const Vital Signs: 05/20/21 10:59 Temperature 97.4 F L Temperature Source Temporal Pulse Rate 73 Respiratory Rate 18 Blood Pressure 109/65 Blood Pressure Mean 79 Pulse Ox 99 Oxygen Delivery Method Room Air Positive well nourished and well developed General Appearance ED: well developed HEENT Reports normocephalic and head/scalp atraumatic Eyes PERRL and EOMs intact bilaterally Neck supple Chest Wall inspection of chest normal and palpation of chest normal Resp normal respiratory effort and clear to auscultation bilaterally Cardio regular rate and regular rhythm GI normal to inspection, nondistended, normoactive bowel sounds and non-tender Palpation: soft Narrative: Patient has pressure sores noted on bilateral buttocks. Few small areas of superficial skin breakdown. No sign of acute infection. Back/Spine no CVA tenderness Extremity Extremity Narrative: Right lower extremity edematous, erythematous, warm to the touch. Chronic wound noted to the posterior leg. Neuro oriented x3 and no sensory deficits noted Sensorium / Orientation: alert Motor Exam: strength 5/5 throughout Psych mental status grossly normal MDM MDM MDM Narrative Medical decision making narrative: Labs and blood cultures were drawn. I did speak with social work and let them know the patient was interested in going to rehab. Lab Data Attestation: I reviewed the patient's lab results. Labs: Laboratory Results - last 24 hr 05/20/21 05/20/21 11:50 11:50 WBC 8.5 RBC 3.75 L Hgb 11.8 L Hct 36.9 L MCV 98.4 MCH 31.5 MCHC 32.0 RDW Std Deviation 46.4 H RDW Coeff of Malini 13.1 Plt Count 278 MPV 8.5 Immature Gran % (Auto) 0.600 Neut % (Auto) 81.7 H Lymph % (Auto) 8.1 L [place] % (Auto) 6.5 Eos % (Auto) 2.7 Baso % (Auto) 0.4 Absolute Neuts (auto) 7.0 Absolute Lymphs (auto) 0.69 L Nucleated RBC % 0 Sodium 121 L Potassium 5.9 H Chloride 95 L Carbon Dioxide 21.0 Anion Gap 5 BUN 6 L Creatinine 0.46 L Estim Creat Clear Calc 40.83 Est GFR (MDRD) Af Amer 173 Est GFR (MDRD) Non-Af 143 BUN/Creatinine Ratio 13.2 Glucose 98 Calcium 9.6 Treatment and Re-Evaluation Comments:: Lab work is unremarkable with no significant white count. Patient's right lower extremity is significantly erythematous and warm. She states this just started 2 or 3 days ago. In light of this I will give her a dose of antibiotics here. Patient's sodium has dropped again down to 121. I will speak with hospitalist regarding admission for correction of electrolytes and observation of her cellulitis. Social work will start working on placement for rehab. Discharge Plan Triage Chief Complaint: Wound ED Provider: Ann Randle Dx/Rx/DC Orders Clinical Impression: Hyponatremia, Cellulitis, Pressure sore on buttocks Prescriptions: No Action sxvplcuk-xjr-begf-FA-lutein 1 EACH tablet 1 tab PO DAILY RF: 0 carvedilol 25 MG tablet 25 mg PO BID RF: 0 fluticasone propion-salmeterol 1 PUFF inhaler 2 puff inhalation BID RF: 0 torsemide 100 MG tablet 100 mg PO DAILY Qty: 30 RF: 1 Hold Instructions: Resume on 05/16/21. guaifenesin 1,200 MG tablet 1,200 mg PO BID Qty: 14 RF: 0 ferrous sulfate 325 MG tablet 325 mg PO BID Qty: 60 RF: 0 potassium chloride 10 mEq capsule, extended release 40 meq PO BID RF: 0 magnesium oxide 400 mg (241.3 mg magnesium) tablet 400 mg PO DAILY RF: 0 Xarelto 20 mg tablet 20 mg PO DAILY RF: 0 Spiriva Respimat 2.5 mcg/actuation mist 2 inh INHALATION BID RF: 0 albuterol sulfate 90 mcg/actuation HFA aerosol inhaler 1 - 2 puff INHALATION Q4H PRN PRN (Reason: Asthma) Qty: 18 RF: 6 Primary Care Provider: Amber Sanders Referrals: Amber Sanders MD [Primary Care Provider] - Disposition Disposition: Acute Care [facility]
[2021-05-20 12:02] LABS: Absolute Lymphocyte Count 0.69 X10^3/uL (0.83-4.51); Basophil# 0.03 X10^3/uL; Basophil% 0.4 % (0-1); Eosinophil# 0.23 X10^3/uL; Eosinophils% 2.7 % (0-5); Hematocrit 36.9 % (37-47); Hemoglobin 11.8 g/dL (12.0-15.0); Lymphocyte # 0.69 X10^3/ul (0.83-4.51); Lymphocyte % 8.1 % (19-41); Mean Corpuscular Hgb 31.5 pg (27.0-32.0); Mean Corpuscular Volume 98.4 fL (81-99); Mean Platelet Vol. 8.5 fl (6.2-12.0); Monocyte# 0.55 X10^3/uL; Monocyte% 6.5 % (0-10); NRBC Flagged by Analyzer 0 % (0-5); Neutrophil # 6.96 X10^3/uL (2.7-7.7); Neutrophil % 81.7 % (47-70); Platelet Count 278 K/mm3 (150-450); RBC Distribution Width CV 13.1 % (11.6-14.6); RBC Distribution Width SD 46.4 fl (35.1-43.9); Red Blood Count 3.75 M/mm3 (4.2-5.4); White Blood Count 8.5 K/mm3 (4.4-11.0)
[2021-05-20 12:11] LABS: Anion Gap 5 (5-15); BUN 6 mg/dL (7-18); BUN/Creat Ratio 13.2 RATIO (10-20); Calcium,Total 9.6 mg/dL (8.5-10.1); Chloride 95 mmol/L (98-107); Creatinine, Serum 0.46 mg/dL (0.55-1.02); EST Glomerular Filtration Rate 143 mL/min (>60); Est Glom Filt Rate - Afr Amer 173 mL/min (>60); Estimated Creatinine Clearance 40.83 ml/min; Glucose 98 mg/dL (74-106); Potassium 5.9 mmol/L (3.5-5.1); Sodium Level 121 mmol/L (136-145)
--- NOTE | 2021-05-20 13:20 | CM.ED ---
REUBEN Note REUBEN Referral Source: MD Referral Reason: Discharge planning advised that patient was just discharge from hospital. stated patient wants rehab but will get admitted to hospital due to her sodium levels. However, at discharge from hospital she wants rehab. REUBEN sent email to Sarah Martinez from TCU/Rehab admission advising her of patient's desire to go to rehab at hospital discharge. Plan: Rehab at discharge [facility]
[2021-05-20] MEDS: 0.9% Normal Saline 1,000 ML 150 ML IV (13:40)
[2021-05-20] MEDS: Vancomycin IV 1,000 MG/200 ML BAG 200 MG IV (14:19)
--- NOTE | 2021-05-20 14:24 | EKG12_ITS ---
Test Reason : Blood Pressure : / mmHG Vent. Rate : 085 BPM Atrial Rate : 094 BPM P-R Int : 000 ms QRS Dur : 082 ms QT Int : 362 ms P-R-T Axes : 000 -64 027 degrees QTc Int : 430 ms Atrial fibrillation Left axis deviation Septal infarct , age undetermined Abnormal ECG Confirmed by ANIKET GILBERT, CATALINA ([id number]), news copy editor DANIEL GRANGER ([id number]) on 05/25/2021 1:00:41 PM Referred By: SABA Confirmed By:CATALINA MARCIAL MD
--- NOTE | 2021-05-20 14:25 | CM.ED ---
SW Note Referral Source: MD Referral Reason: Discharge planning SW met with patient and her . Provided them with list of Skilled Nuring Facility (SNF)in [facility]. Patient said that they want to stay at the hospital for rehab. Patient's said that he is unsure of if patient had previously been in TCU or Rehab 4Floor. Patient and her in agreement for discharge plan that includes rehab at [facility] ([facility]). . Plan: To be determined [facility] ESPINOS[facility] .
--- NOTE | 2021-05-20 14:27 | HP.PCM.HOS_ITS ---
HPI - General HPI Narrative EUNICE BRAVO, is a 75 F who came to ER for painful wound on her buttock, lymphedema and left leg posterior ulcer about 3 to 4 weeks ago. Patient also found hyponatremia, sodium 121. Patient has history of multiple admissions last , 05/12-05/14 for hyponatremia and leg wounds/lymphedema. She struck her left leg on wheelchair about 3 to 4 weeks ago and wound has purulent drainage, thick and indurated margin. Denies any fever or chills. She was advised not to take torsemide until 05/14 but she is not taking it but sodium went down from 1 29- 121. 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 She follows [facility] oncology. Twelve-lead EKG ordered. IV vancomycin and Zosyn ordered in ER and normal saline at 150/h. [facility] Medical History Acute on chronic systolic (congestive) heart failure Bilateral leg ulcer COPD (chronic obstructive pulmonary disease) Debility Dependence on supplemental oxygen Dependent edema Essential (primary) hypertension History of breast cancer Immobility Irregular heart beat Leg edema, left Leg edema, right Leg swelling Lumbar disc disease Lung mass New onset A. fib with RVR Nicotine dependence Non-ischemic cardiomyopathy Non-rheumatic tricuspid valve insufficiency Nonrheumatic mitral (valve) insufficiency Osteoporosis Paroxysmal atrial fibrillation Secondary pulmonary arterial hypertension Smoker Suspected chronic obstructive pulmonary disease based on initial evaluation Thrush, oral Tobacco abuse Tobacco abuse counseling Wound cellulitis Home Medications donkccty-adz-izjd-FA-lutein 1 tab PO DAILY 10/05/19 [History Last Taken 05/11/21] albuterol sulfate 90 mcg/actuation aerosol inhaler 1 - 2 puff INHALATION Q4H PRN PRN #18 g 04/29/20 [Rx Last Taken 07/12/20] carvedilol 25 mg PO BID 07/12/20 [History Last Taken 05/11/21] fluticasone propion-salmeterol 2 puff INHALATION BID 07/12/20 [History Last Taken 05/11/21] ferrous sulfate 325 mg PO BID #60 tab 07/15/20 [Rx Last Taken 05/11/21] guaifenesin 1,200 mg PO BID #14 tab 07/15/20 [Rx Last Taken Unknown] Spiriva Respimat 2 inh INHALATION BID 05/12/21 [History Last Taken 05/11/21] Xarelto 20 mg PO DAILY 05/12/21 [History Last Taken 05/11/21] magnesium oxide 400 mg PO DAILY 05/12/21 [History Last Taken 05/11/21] potassium chloride 40 meq PO BID 05/12/21 [History Last Taken 05/11/21] Allergy/AdvReac Type Severity Reaction Status Date / Time albuterol sulfate Allergy Swelling Verified 05/20/21 11:57 [From Combivent] ipratropium bromide Allergy Swelling Verified 05/20/21 11:57 [From Combivent] metoprolol Allergy Laryngospas Verified 05/20/21 11:57 ms Sulfa (Sulfonamide Allergy Rash Verified 05/20/21 11:57 Antibiotics) beclomethasone [From Qvar] AdvReac COUGHING Verified 05/20/21 11:57 benzalkonium chloride AdvReac Rash Verified 05/20/21 11:57 [From Merthiolate (benzalkonium)] codeine AdvReac Chest Verified 05/20/21 11:57 tightness doxycycline AdvReac Abd Verified 05/20/21 11:57 cramps/diarrhea formoterol fumarate AdvReac PT UNSURE Verified 05/20/21 11:57 [From Dulera] OF REACTION hydrochlorothiazide AdvReac PT UNSURE Verified 05/20/21 11:57 OF REACTION ibuprofen [From Advil] AdvReac PT UNSURE Verified 05/20/21 11:57 OF REACTION iodine AdvReac Itching Verified 05/20/21 11:57 merbromin AdvReac PT UNSURE Verified 05/20/21 11:57 OF REACTION mometasone furoate AdvReac PT UNSURE Verified 05/20/21 11:57 [From Dulera] OF REACTION oseltamivir [From Tamiflu] AdvReac uterine Verified 05/20/21 11:57 pain prednisone AdvReac Abd Verified 05/20/21 11:57 cramps/diarrhea PLASTIC TAPE Allergy Rash Uncoded 05/20/21 11:57 Family History Father Emphysema of lung Sister Cancer uterine cancer Surgical History History of left heart catheterization (11/09/19) History of left mastectomy History of lumpectomy of right breast History of tubal ligation polyp removal S/P lumpectomy, right breast Social History Smoking Status: Current every day smoker tobacco type: cigarettes second hand exposure: Yes alcohol intake: current alcohol intake frequency: 0-2 drinks per day Alcohol type: wine substance use type: does not use caffeine: No what type of physical activity do you participate in: none seatbelt use: always do you feel safe at home: Yes ROS ROS Narrative Constitutional: Reports fatigue and weakness. Mainly wheelchair-bound HEENT: Reports systems reviewed and no addt'l complaints, except as documented Respiratory/Chest: Chronic cough and shortness of breath. shortness of breath with exertion Gastrointestinal: Denies coffee ground emesis, hematemesis or vomiting Genitourinary: Denies burning urination. 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 Both lower extremity swelling, lymphedema Neurologic: Denies seizure-like activity skin: Weeping of both legs. Ulcer on left leg traumatic Endocrinology: Reports systems reviewed and no addt'l complaints, except as documented Hematologic/Lymphatic: Reports systems reviewed and no addt'l complaints, except as documented Rest 12 ROS are negative except as mentioned in HPI Vital Signs Vital Signs Vital Signs: 05/20/21 10:59 05/20/21 14:20 Temperature 97.4 F L 96.4 F L Temperature Source Temporal Temporal Pulse Rate 73 75 Respiratory Rate 18 18 Blood Pressure 109/65 99/63 Blood Pressure Mean 79 75 Pulse Ox 99 100 Oxygen Delivery Method Room Air Room Air Weight Weight: 150 lb Body Mass Index (BMI) 26.5 Physical Exam Narrative General: Alert, Oriented x3, Cooperative. Fatigue HEENT: Atraumatic, PERRLA, EOMI, Normocephalic Oral: No Gingival or Mucosal Lesions/ Ulcerations Neck: Supple, No JVD, Negative Carotid Bruits Lungs: Air entry diminished in bilateral lung bases. Bilateral expiratory rhonchi Cardiovascular: Irregular rate and rhythm, A. fib. Normal S1, Normal S2, No m urmurs Abdomen: Bowel Sounds Present, Soft, Non Tender, Non-Distended : No renal angle tenderness. No suprapubic tenderness. Extremities: No edema, Capillary Refill Less than 3 Seconds Skin: Bilateral legs weeping edema. Right leg is erythematous with pooling of blood but not tender. Left leg has chronic ulcer posterior aspect with purulent drainage, thick indurated margin. Musculoskeletal: No Tenderness to Palpation of Joints or Extremities Neurological: Cranial nerves II-XII grossly intact, Deep Tendon Reflexes 2+/4 and Symmetrical, Neuro grossly intact Psych/Mental Status: Flat affect. Results Lab / Micro Data Result Diagrams: 05/20/21 11:50 05/20/21 11:50 Labs: Laboratory Results - last 24 hr 05/20/21 11:50: WBC 8.5, RBC 3.75 L, Hgb 11.8 L, Hct 36.9 L, MCV 98.4, MCH 31.5, MCHC 32.0, RDW Std Deviation 46.4 H, RDW Coeff of Malini 13.1, Plt Count 278, MPV 8.5, Immature Gran % (Auto) 0.600, Neut % (Auto) 81.7 H, Lymph % (Auto) 8.1 L, [place] % (Auto) 6.5, Eos % (Auto) 2.7, Baso % (Auto) 0.4, Absolute Neuts (auto) 7.0, Absolute Lymphs (auto) 0.69 L, Nucleated RBC % 0 05/20/21 11:50: Sodium 121 L, Potassium 5.9 H, Chloride 95 L, Carbon Dioxide 21.0, Anion Gap 5, BUN 6 L, Creatinine 0.46 L, Estim Creat Clear Calc 40.83, Est GFR (MDRD) Af Amer 173, Est GFR (MDRD) Non-Af 143, BUN/Creatinine Ratio 13.2, Glucose 98, Calcium 9.6 Assessment & Plan Assessment/Plan (1) Hyponatremia: (2) Wound of lower extremity: PLAN: This 75-year-old female coming to ER for bilateral lymphedema, nonhealing ulcer of left leg and hyponatremia 1. 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 IV fluid half-normal saline at 75 mill for slow correction of sodium. Monitor sodium in the evening. Nephrology consult. Free water restriction 1500 mils per day 2. Chronic bilateral lower extremity lymphedema, suspicion of right leg cellulitis, nonhealing ulcer left leg with purulent drainage: Patient received 1 dose of vancomycin and Zosyn in ER. Deep wound culture for MRSA. Blood cultures x2. Empirically start on IV Unasyn. If MRSA positive, will need doxycycline although showing allergy of abdominal cramps/diarrhea which I do not think is true allergy. Consult plastic surgeon and wound care nurse. Douglas wrap bandage. 3. 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 Patient significant biopsy left upper lobe reported non-small cell lung cancer favoring adenocarcinoma. Patient completed radiotherapy about 2 years ago. Continue home inhalers. Patient follows [facility]. Patient is still a smoker about a pack per day. Advised quitting. It seems patient never followed in pulmonary clinic. Dr. Campos has seen in June 2020 4. Chronic systolic heart failure with bilateral lymphedema: Strict input and output. Previous 2D echo in October 2019 shows EF 50% with stage III diastolic dysfunction and both atria enlarged. RVSP 26 mmHg. During previous hospitalization in 2019, she had thoracocentesis which revealed transudate. Mild hyperkalemia. Hold torsemide until seen by construction project engineer. 5. Chronic A. fib on Xarelto: H&H 11.8/36.9. Continue Xarelto 6. Hypertension: Patient was on lisinopril in the past but seems probably disc ontinued to low blood pressure. BP 99/63. 7. Continued smoking cigarette/nicotine dependence: Counseled on cessation. Nicotine patch 8. DVT prophylaxis: On Xarelto PT and OT. Try for SNF placement. Living will/advanced directive/end of life care: Patient does not have living will or advanced directive. After discussion of benefits/risks procedures involved with full code, DNR CC arrest and DNR CC, the patient opted for full code and she said she wants to live. Patient does want artificial life support including intubation, tube feed, ventilator and/chest compression, central venous catheter, vasopressor and DC shock if needed Total time spent in [id number] encounter in discussion of advanced directive 16 minutes. Charges/Coding Visit Charges Inpatient E&M: 14637 Init Hosp L3 Procedures Hospitalists Procedures: 35116 Advncd Care Plan 30 Min
[2021-05-20 15:37] LABS: Magnesium 1.9 mg/dL (1.6-2.6)
[2021-05-20] MEDS: 0.45% Normal Saline 1,000 ML 75 ML IV (15:58)
[2021-05-20] MEDS: Rivaroxaban 20 MG Tablet PO (16:41)
[2021-05-20] MEDS: Menthol/Lanolin/Calamine/Znox 113 GM Tube 1 APPLIC TOPICAL ×2 (18:19→21:12)
[2021-05-20 18:24] LABS: M R Staph aureus DNA By PCR Negative (Negative); Probe Check PASS; Specimen Processing Control PASS; Staph aureus DNA By PCR NEGATIVE (Negative)
[2021-05-20] MEDS: Budesonide Respules 0.5 MG/2 ML AMPUL.NEB. INHALATION (18:38)
[2021-05-20] MEDS: Albuterol 2.5 MG/3 ML VIAL.NEB. INHALATION (18:38)
[2021-05-20 20:26] LABS: M R Staph aureus DNA By PCR Negative (Negative); Probe Check PASS; Specimen Processing Control PASS
--- NOTE | 2021-05-20 20:43 | NURSING ---
PT INSISTED ON GETTING UP TO THE CHAIR DUE TO HER BACK PAIN. ENCOURAGED TO STAY IN THE BED. PT STATES SHE IS JUST TOO UNCOMFORTABLE TO STAY IN THE BED TONIGHT. OFFERED PAIN MEDICATION PT STATES THAT IS NOT ENOUGH THAT SHE NEEDS UP TO THE CHAIR. ASSISTED TO THE CHAIR WITH 2 ASSIST. PILLOW UNDER COCCYX. LEGS ELEVATED. PT STATES IT IS COMFORTABLE AT THIS TIME. PUREWICK IN PLACE.
[2021-05-20] MEDS: guaiFENesin 1,200 MG Tablet 1200 MG PO (21:15)
[2021-05-20] MEDS: 0.9% Saline Lock 10 ML Syringe IV (21:25)
[2021-05-20 22:10] LABS: Anion Gap 6 (5-15); BUN 5 mg/dL (7-18); Calcium,Total 9.2 mg/dL (8.5-10.1); Chloride 94 mmol/L (98-107); Creatinine, Serum 0.42 mg/dL (0.55-1.02); EST Glomerular Filtration Rate 158 mL/min (>60); Est Glom Filt Rate - Afr Amer 192 mL/min (>60); Estimated Creatinine Clearance 40.83 ml/min; Glucose 102 mg/dL (74-106); Potassium 5.1 mmol/L (3.5-5.1); Sodium Level 123 mmol/L (136-145)
[2021-05-21] VITALS (13 sets, daily range): BP systolic 94–114; BP diastolic 47–65; PULSE 63–97; RESP 16–20; TEMP 36–37.1; O2SAT 95–98
[2021-05-21] MEDS: Acetaminophen 325 MG Tablet 650 MG PO (00:49)
[2021-05-21 06:02] LABS: Absolute Lymphocyte Count 0.63 X10^3/uL (0.83-4.51); Absolute Neutrophil Count 4.5 X10^3/uL (2.0-7.7); Basophil# 0.03 X10^3/uL; Basophil% 0.5 % (0-1); Eosinophil# 0.18 X10^3/uL; Hematocrit 31.7 % (37-47); Hemoglobin 10.5 g/dL (12.0-15.0); Lymphocyte # 0.63 X10^3/ul (0.83-4.51); Lymphocyte % 10.6 % (19-41); Mean Corp Hgb Conc 33.1 g/dL (32-36); Mean Corpuscular Hgb 31.2 pg (27.0-32.0); Mean Corpuscular Volume 94.1 fL (81-99); Mean Platelet Vol. 8.7 fl (6.2-12.0); Monocyte# 0.54 X10^3/uL; Monocyte% 9.1 % (0-10); NRBC Flagged by Analyzer 0 % (0-5); Neutrophil # 4.52 X10^3/uL (2.7-7.7); Neutrophil % 76.5 % (47-70); Platelet Count 271 K/mm3 (150-450); RBC Distribution Width SD 44.4 fl (35.1-43.9); Red Blood Count 3.37 M/mm3 (4.2-5.4); White Blood Count 5.9 K/mm3 (4.4-11.0)
[2021-05-21 06:30] LABS: Anion Gap 7 (5-15); BUN 5 mg/dL (7-18); BUN/Creat Ratio 14.8 RATIO (10-20); Chloride 97 mmol/L (98-107); Creatinine, Serum 0.34 mg/dL (0.55-1.02); EST Glomerular Filtration Rate 201 mL/min (>60); Est Glom Filt Rate - Afr Amer 243 mL/min (>60); Estimated Creatinine Clearance 40.83 ml/min; Glucose 96 mg/dL (74-106); Potassium 4.8 mmol/L (3.5-5.1); Sodium Level 125 mmol/L (136-145)
[2021-05-21] MEDS: Budesonide Respules 0.5 MG/2 ML AMPUL.NEB. INHALATION ×2 (07:27→18:55)
[2021-05-21] MEDS: Albuterol 2.5 MG/3 ML VIAL.NEB. INHALATION ×3 (07:29→18:56)
[2021-05-21] MEDS: Magnesium Chloride 64 MG Delay Rel.Tablet 128 MG PO (07:59)
[2021-05-21] MEDS: guaiFENesin 1,200 MG Tablet 1200 MG PO ×2 (08:00→21:00)
[2021-05-21] MEDS: Carvedilol 25 MG Tablet PO (08:00)
[2021-05-21] MEDS: Multivitamins,Ther W-Minerals Tablet 1 TABLET PO (08:01)
[2021-05-21] MEDS: Menthol/Lanolin/Calamine/Znox 113 GM Tube 1 APPLIC TOPICAL ×2 (08:01→20:59)
--- NOTE | 2021-05-21 10:57 | CON.PCM_ITS ---
Assessment & Plan Assessment/Plan (1) Ulcer of left lower extremity with fat layer exposed: (2) Leg edema: (3) Acute on chronic systolic heart failure: (4) Bilateral cellulitis of lower leg: (5) Lymphedema of both lower extremities: PLAN: Patient seen and examined bedside with present Patient noted to have left posterior leg ulceration down to level of fat. After verbal consent was obtained by the patient this was debrided. Sharp excisional nonselective debridement was carried out into the level of subcutaneous tissue with a curette with removal of all devitalized, slough, biofilm, and fibrous tis manoj. This was done without incidence. This was tolerated. Discussed with patient the need to offload the area in order to allow for better healing. Discussed that patient can do this with a pillow underneath her lower leg to offload her upper left posterior leg. Discussed importance of elevation in general to control her lymphedema especially given that patient states that she is allergic to any kind of compression dressing such as an Douglas wrap material. Discussed the importance of proper wound care. Discussed importance of smoking cessation, blood sugar control, weight management, offloading, proper nutrition, infection control and hygiene to optimize healing potential. Patient noted to be a smoker. Reviewed its impact on wound healing Reviewed tib-fib x-rays without significant findings. Patient is noted to have no systemic signs of illness and a normal white blood cell count. Patient is noted to have been seen by Jovanna Partida NP at the wound care center last in February 01, 2021. Patient relates that she thought she can get better on her own and that is why she stopped going to her appointments. Is noted that at her last appointment she was approved for advanced skin substitute pure apply but did not finish that treatment course. Cultures obtained of left posterior leg wound. Santyl ordered. To continue daily Santyl dressing changes after legs are cleaned with soap and water and covered with dry sterile dressing. Patient relates she is allergic to compression dressing such as Douglas wrap material so she needs to elevate in order to control her swelling All questions answered. Thank you for the consult. Please call contact if any questions or concerns. Patient should follow-up at the wound care center upon discharge for continued wound therapy for her leg. Patient also noted to have wound to her but as well. Patient was previously established with Jovanan Partida's at the wound care center. Shyann Olivares DPM [facility] [phone] This note was generated with [employer] dictation software. It may contain incorrect words, spelling, and punctuation that were not noted in checking the note before signing. HPI Consult Data Date of Consult: 05/21/21 HPI Narrative HPI Narrative: EUNICE BRAVO, is a 75 F who presents for worsening wounds to her buttocks and left lower leg. Patient is unsure as long duration of these wounds. Of note the patient has been seen in the wound care center in the past for these wounds. She states that she was sent from the wound care center to the hospital and has not return to the wound care center for continued treatment. Through chart review this was noted to be back in January. Patient denies any systemic signs of illness. Patient is noted to be a smoker and states that her last cigarette was right before she came into the hospital this time. She also has significant medical history including lymphedema, chronic respiratory failure, COPD, non-small cell lung cancer, anemia, heart failure, hypertension. [facility] Medical History Acute on chronic systolic (congestive) heart failure Bilateral leg ulcer COPD (chronic obstructive pulmonary disease) Debility Dependence on supplemental oxygen Dependent edema Essential (primary) hypertension History of breast cancer Immobility Irregular heart beat Leg edema, left Leg edema, right Leg swelling Lumbar disc disease Lung mass New onset A. fib with RVR Nicotine dependence Non-ischemic cardiomyopathy Non-rheumatic tricuspid valve insufficiency Nonrheumatic mitral (valve) insufficiency Osteoporosis Paroxysmal atrial fibrillation Secondary pulmonary arterial hypertension Smoker Suspected chronic obstructive pulmonary disease based on initial evaluation Thrush, oral Tobacco abuse Tobacco abuse counseling Wound cellulitis Home Medications [id number]-xear-FA-lutein 1 tab PO DAILY 10/05/19 [History Last Taken 05/11/21] albuterol sulfate 90 mcg/actuation aerosol inhaler 1 - 2 puff INHALATION Q4H PRN PRN #18 g 04/29/20 [Rx Last Taken 07/12/20] carvedilol 25 mg PO BID 07/12/20 [History Last Taken 05/11/21] fluticasone propion-salmeterol 2 puff INHALATION BID 07/12/20 [History Last Taken 05/11/21] ferrous sulfate 325 mg PO BID #60 tab 07/15/20 [Rx Last Taken 05/11/21] guaifenesin 1,200 mg PO BID #14 tab 07/15/20 [Rx Last Taken Unknown] Spiriva Respimat 2 inh INHALATION BID 05/12/21 [History Last Taken 05/11/21] Xarelto 20 mg PO DAILY 05/12/21 [History Last Taken 05/11/21] magnesium oxide 400 mg PO DAILY 05/12/21 [History Last Taken 05/11/21] potassium chloride 40 meq PO BID 05/12/21 [History Last Taken 05/11/21] Allergy/AdvReac Type Severity Reaction Status Date / Time albuterol sulfate Allergy Swelling Verified 05/20/21 11:57 [From Combivent] ipratropium bromide Allergy Swelling Verified 05/20/21 11:57 [From Combivent] metoprolol Allergy Laryngospas Verified 05/20/21 11:57 ms Sulfa (Sulfonamide Allergy Rash Verified 05/20/21 11:57 Antibiotics) beclomethasone [From Qvar] AdvReac COUGHING Verified 05/20/21 11:57 benzalkonium chloride AdvReac Rash Verified 05/20/21 11:57 [From Merthiolate (benzalkonium)] codeine AdvReac Chest Verified 05/20/21 11:57 tightness doxycycline AdvReac Abd Verified 05/20/21 11:57 cramps/diarrhea formoterol fumarate AdvReac PT UNSURE Verified 05/20/21 11:57 [From Dulera] OF REACTION hydrochlorothiazide AdvReac PT UNSURE Verified 05/20/21 11:57 OF REACTION ibuprofen [From Advil] AdvReac PT UNSURE Verified 05/20/21 11:57 OF REACTION iodine AdvReac Itching Verified 05/20/21 11:57 merbromin AdvReac PT UNSURE Verified 05/20/21 11:57 OF REACTION mometasone furoate AdvReac PT UNSURE Verified 05/20/21 11:57 [From Dulera] OF REACTION oseltamivir [From Tamiflu] AdvReac uterine Verified 05/20/21 11:57 pain prednisone AdvReac Abd Verified 05/20/21 11:57 cramps/diarrhea PLASTIC TAPE Allergy Rash Uncoded 05/20/21 11:57 Family History Father Emphysema of lung Sister Cancer uterine cancer Surgical History History of left heart catheterization (11/09/19) History of left mastectomy History of lumpectomy of right breast History of tubal ligation polyp removal S/P lumpectomy, right breast Social History Smoking Status: Current every day smoker tobacco type: cigarettes second hand exposure: Yes alcohol intake: current alcohol intake frequency: 0-2 drinks per day Alcohol type: wine substance use type: does not use caffeine: No what type of physical activity do you participate in: none seatbelt use: always do you feel safe at home: Yes ROS Constitutional Constitutional: Denies chills or fever(s) Cardiovascular Cardiovascular: Denies chest pain Respiratory/Chest Respiratory/Chest: Denies cough Gastrointestinal Gastrointestinal: Denies nausea or vomiting Musculoskeletal Musculoskeletal: Denies muscle cramps or muscle weakness Integumentary Integumentary: Reports wounds Neurologic Neurologic: Reports numbness and tingling Physical Exam Const alert and no apparent distress General Appearance: cooperative and comfortable HEENT Head and Scalp: atraumatic Lymph Lymphatic: lymphedema Resp normal respiratory effort Effort and Inspection: able to speak in complete sentences Extremity normal capillary refill and no calf tenderness General Extremity: edema bilateral lower extremity and other findings Other Details: Capillary refill time less than 3 seconds noted to digits ; Negative for clubbing or cyanosis Peripheral Pulses: Yes posterior tibial pulses present bilateral (Nonpalpable secondary to swelling) and dorsalis pedis pulses present bilateral diminished Skin General Skin Exam: atrophy and dry skin; Negative for ecchymosis, eschar, pallor or dermatitis Rashes: no rashes Wounds: wounds noted Wound Narrative: ulcers noted to left posterior leg No malodor, erythema, purulence, probing to bone, streaking, fluctuation, crepi tus, or other signs of infection. Skin is atrophic and hairless. Fibrotic base. There is chronic lymphedema skin changes noted to bilateral lower extremities right worse than left with skin with wrinkled appearance. Chronic erythema color changes noted to bilateral lower extremities. Posterior right lower leg noted to have preulcerative area without any open lesions noted. No drainage or open wounds was noted. Patient reports itching to bilateral lower extremities. Patient noted to have dry flaky skin. Neuro Sensory Exam: extremities light-touch: normal Psych Appearance: appropriate Attitude: calm Lab / Micro Data Result Diagrams: 05/21/21 04:30 05/21/21 04:30 Labs: Laboratory Results - last 24 hr 05/20/21 11:50: WBC 8.5, RBC 3.75 L, Hgb 11.8 L, Hct 36.9 L, MCV 98.4, MCH 31.5, MCHC 32.0, RDW Std Deviation 46.4 H, RDW Coeff of Malini 13.1, Plt Count 278, MPV 8.5, Immature Gran % (Auto) 0.600, Neut % (Auto) 81.7 H, Lymph % (Auto) 8.1 L, [place] % (Auto) 6.5, Eos % (Auto) 2.7, Baso % (Auto) 0.4, Absolute Neuts (auto) 7.0, Absolute Lymphs (auto) 0.69 L, Nucleated RBC % 0 05/20/21 11:50: Sodium 121 L, Potassium 5.9 H, Chloride 95 L, Carbon Dioxide 21.0, Anion Gap 5, BUN 6 L, Creatinine 0.46 L, Estim Creat Clear Calc 40.83, Est GFR (MDRD) Af Amer 173, Est GFR (MDRD) Non-Af 143, BUN/Creatinine Ratio 13.2, Glucose 98, Calcium 9.6 05/20/21 11:50: Magnesium 1.9 05/20/21 17:00: S.aureus Protein A PCR NEGATIVE, MRSA (PCR) Negative 05/20/21 18:20: MRSA (PCR) Negative 05/20/21 21:00: Sodium 123 L, Potassium 5.1, Chloride 94 L, Carbon Dioxide 23.0, Anion Gap 6, BUN 5 L, Creatinine 0.42 L, Estim Creat Clear Calc 40.83, Est GFR (MDRD) Af Amer 192, Est GFR (MDRD) Non-Af 158, BUN/Creatinine Ratio 12.0, Glucose 102, Calcium 9.2 05/21/21 04:30: WBC 5.9, RBC 3.37 L, Hgb 10.5 L, Hct 31.7 L, MCV 94.1, MCH 31.2, MCHC 33.1, RDW Std Deviation 44.4 H, RDW Coeff of Malini 13.0, Plt Count 271, MPV 8.7, Immature Gran % (Auto) 0.300, Neut % (Auto) 76.5 H, Lymph % (Auto) 10.6 L, [place] % (Auto) 9.1, Eos % (Auto) 3.0, Baso % (Auto) 0.5, Absolute Neuts (auto) 4.5, Absolute Lymphs (auto) 0.63 L, Nucleated RBC % 0 05/21/21 04:30: Sodium 125 L, Potassium 4.8, Chloride 97 L, Carbon Dioxide 21.0, Anion Gap 7, BUN 5 L, Creatinine 0.34 L, Estim Creat Clear Calc 40.83, Est GFR (MDRD) Af Amer 243, Est GFR (MDRD) Non-Af 201, BUN/Creatinine Ratio 14.8, Glucose 96, Calcium 9.0
--- NOTE | 2021-05-21 11:17 | PCM.PN.HOSP ---
Subjective Subjective There is improvement in the leg swelling. Calmoseptine ointment and dressing was done yesterday. Serum sodium is better. Discussed about the importance of fluid restriction to the patient. Mild chronic cough. Objective Data Objective Data Vital Signs: Vital Signs Temp Pulse Resp BP Pulse Ox 96.8 F L 79 18 114/62 96 05/21/21 07:57 05/21/21 07:57 05/21/21 07:57 05/21/21 07:57 05/21/21 07:57 Oxygen Delivery Method Room Air Weight: 158 lb 15.253 oz Body Mass Index (BMI) 28.1 Intake & Output: Intake and Output for Last 24 Hours 05/19/21 05/20/21 05/21/21 23:59 23:59 23:59 Intake Total 644.5 / 764.5 1589 / 1589 Output Total 525 / 525 Balance 644.5 / 489.5 1064 / 1064 Lab / Micro Data Result Diagrams: 05/21/21 04:30 05/21/21 04:30 Labs: Laboratory Results - last 24 hr 05/20/21 11:50: WBC 8.5, RBC 3.75 L, Hgb 11.8 L, Hct 36.9 L, MCV 98.4, MCH 31.5, MCHC 32.0, RDW Std Deviation 46.4 H, RDW Coeff of Malini 13.1, Plt Count 278, MPV 8.5, Immature Gran % (Auto) 0.600, Neut % (Auto) 81.7 H, Lymph % (Auto) 8.1 L, [place] % (Auto) 6.5, Eos % (Auto) 2.7, Baso % (Auto) 0.4, Absolute Neuts (auto) 7.0, Absolute Lymphs (auto) 0.69 L, Nucleated RBC % 0 05/20/21 11:50: Sodium 121 L, Potassium 5.9 H, Chloride 95 L, Carbon Dioxide 21.0, Anion Gap 5, BUN 6 L, Creatinine 0.46 L, Estim Creat Clear Calc 40.83, Est GFR (MDRD) Af Amer 173, Est GFR (MDRD) Non-Af 143, BUN/Creatinine Ratio 13.2, Glucose 98, Calcium 9.6 05/20/21 11:50: Magnesium 1.9 05/20/21 17:00: S.aureus Protein A PCR NEGATIVE, MRSA (PCR) Negative 05/20/21 18:20: MRSA (PCR) Negative 05/20/21 21:00: Sodium 123 L, Potassium 5.1, Chloride 94 L, Carbon Dioxide 23.0, Anion Gap 6, BUN 5 L, Creatinine 0.42 L, Estim Creat Clear Calc 40.83, Est GFR (MDRD) Af Amer 192, Est GFR (MDRD) Non-Af 158, BUN/Creatinine Ratio 12.0, Glucose 102, Calcium 9.2 05/21/21 04:30: WBC 5.9, RBC 3.37 L, Hgb 10.5 L, Hct 31.7 L, MCV 94.1, MCH 31.2, MCHC 33.1, RDW Std Deviation 44.4 H, RDW Coeff of Malini 13.0, Plt Count 271, MPV 8.7, Immature Gran % (Auto) 0.300, Neut % (Auto) 76.5 H, Lymph % (Auto) 10.6 L, [place] % (Auto) 9.1, Eos % (Auto) 3.0, Baso % (Auto) 0.5, Absolute Neuts (auto) 4.5, Absolute Lymphs (auto) 0.63 L, Nucleated RBC % 0 05/21/21 04:30: Sodium 125 L, Potassium 4.8, Chloride 97 L, Carbon Dioxide 21.0, Anion Gap 7, BUN 5 L, Creatinine 0.34 L, Estim Creat Clear Calc 40.83, Est GFR (MDRD) Af Amer 243, Est GFR (MDRD) Non-Af 201, BUN/Creatinine Ratio 14.8, Glucose 96, Calcium 9.0 Physical Exam Narrative General: Alert, Oriented x3, Cooperative. HEENT: Atraumatic, PERRLA, EOMI, Normocephalic Oral: No Gingival or Mucosal Lesions/ Ulcerations Neck: Supple, No JVD, Negative Carotid Bruits Lungs: Air entry diminished in bilateral lung bases. Bilateral expiratory rhonchi Cardiovascular: Irregular rate and rhythm, A. fib. Normal S1, Normal S2, No murmurs Abdomen: Bowel Sounds Present, Soft, Non Tender, Non-Distended : No renal angle tenderness. No suprapubic tenderness. Extremities: No edema, Capillary Refill Less than 3 Seconds Skin: Leg swelling is better. Improvement in erythema/redness. Left leg has chronic ulcer posterior aspect. Musculoskeletal: No Tenderness to Palpation of Joints or Extremities Neurological: Cranial nerves II-XII grossly intact, Deep Tendon Reflexes 2+/4 and Symmetrical, Neuro grossly intact Psych/Mental Status: Flat affect. Assessment & Plan Assessment/Plan (1) Hyponatremia: (2) Wound of lower extremity: PLAN: This 75-year-old female coming to ER for bilateral lymphedema, nonhealing ulcer of left leg and hyponatremia 1. 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 IV fluid half-normal saline at 75 mill for slow correction of sodium. Monitor sodium in the evening. Nephrology consult. Free water restriction 1500 mils per day 05/21: Serum sodium improved to 125 from 121. Fluid restriction. Further recommendation as per patient transport officer. 2. Chronic bilateral lower extremity lymphedema, suspicion of right leg cellulitis, nonhealing ulcer left leg with purulent drainage: Patient received 1 dose of vancomycin and Zosyn in ER. Deep wound culture for MRSA. Blood cultures x2. Empirically start on IV Unasyn. If MRSA positive, will need doxycycline although showing allergy of abdominal cramps/diarrhea which I do not think is true allergy. Consult plastic surgeon and wound care nurse. Douglas wrap bandage. 05/21: MRSA is negative. Blood cultures are pending. Continue Unasyn. 3. 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 Patient significant biopsy left upper lobe reported non-small cell lung cancer favoring adenocarcinoma. Patient completed radiotherapy about 2 years ago. Continue home inhalers. Patient follows [facility] oncology. Patient is still a smoker about a pack per day. Advised quitting. It seems patient never followed in pulmonary clinic. Dr. Campos has seen in June 202005/21: Patient does not remember about diagnosis of non-small cell lung cancer. She did not follow with her oncologist in last 2 years. 4. Chronic systolic heart failure with bilateral lymphedema: Strict input and output. Previous 2D echo in October 2019 shows EF 50% with stage III diastolic dysfunction and both atria enlarged. RVSP 26 mmHg. During previous hospitalization in 2019, she had thoracocentesis which revealed transudate. Mild hyperkalemia. Hold torsemide until seen by patient transport officer. 5. Chronic A. fib on Xarelto: H&H 11.8/36.9. Continue Xarelto 6. Hypertension: Patient was on lisinopril in the past but seems probably discontinued to low blood pressure. BP 99/63. 7. Continued smoking cigarette/nicotine dependence: Counseled on cessation. Nicotine patch 8. DVT prophylaxis: On Xarelto PT and OT. Discussed with pillowcase folder for SNF placement Living will/advanced directive/end of life care: Patient does not have living will or advanced directive. After discussion of benefits/risks procedures involved with full code, DNR CC arrest and DNR CC, the patient opted for full code and she said she wants to live. Patient does want artificial life support including intubation, tube feed, ventilator and/chest compression, central venous catheter, vasopressor and DC shock if needed Total time spent in [id number] encounter in discussion of advanced directive 16 minutes. Charges/Coding Visit Charges Inpatient E&M: 80191 Subs Hosp L2
[2021-05-21] MEDS: Collagenase 30gm Tube 1 APPLIC TOPICAL (14:44)
[2021-05-21] MEDS: Juven (unflavored) Packet 1 PACKET PO (14:45)
[2021-05-21] MEDS: Rivaroxaban 20 MG Tablet PO (16:38)
[2021-05-21 16:46] LABS: M R Staph aureus DNA By PCR Negative (Negative); Probe Check PASS; Specimen Processing Control PASS; Staph aureus DNA By PCR NEGATIVE (Negative)
--- NOTE | 2021-05-21 16:57 | CON.PCM.RE_ITS ---
Assessment & Plan Assessment/Plan (1) Acute hyponatremia: PLAN: Patient has chronic history of hyponatremia from likely SIADH induced by lung malignancy, Acute worsening of hyponatremia likely from depleted intravascular volume. Patient presented with a sodium level 121. Sodium level corrected to 125 with normal saline. Currently of normal saline. Asymptomatic. No need for 3% sodium chloride. Continue holding diuretics. Continue holding IV fluids. Check sodium level now. Check urine osmolality and urine sodium Thank you for the consult. We will continue to follow HPI Consult Data Date of Consult: 05/21/21 HPI Narrative HPI Narrative: EUNICE BRAVO, is a 75 F who presents with buttock pain and L leg non healing ulcer and RLE cellulitis. Renal team is consulted for hyponatremia. 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 Na was low at 121 mmol/l. Patient received NS and Na corrected to 125 this am Currently on fluid restriction. off NS Feeling Ok No nausea No vomiting No SOB ROS: 12 symte review is negative [facility] Medical History Acute on chronic systolic (congestive) heart failure Bilateral leg ulcer COPD (chronic obstructive pulmonary disease) Debility Dependence on supplemental oxygen Dependent edema Essential (primary) hypertension History of breast cancer Immobility Irregular heart beat Leg edema, left Leg edema, right Leg swelling Lumbar disc disease Lung mass New onset A. fib with RVR Nicotine dependence Non-ischemic cardiomyopathy Non-rheumatic tricuspid valve insufficiency Nonrheumatic mitral (valve) insufficiency Osteoporosis Paroxysmal atrial fibrillation Secondary pulmonary arterial hypertension Smoker Suspected chronic obstructive pulmonary disease based on initial evaluation Thrush, oral Tobacco abuse Tobacco abuse counseling Wound cellulitis Home Medications gxbsdyny-rhk-xgvc-FA-lutein 1 tab PO DAILY 10/05/19 [History Last Taken 05/11/21] albuterol sulfate 90 mcg/actuation aerosol inhaler 1 - 2 puff INHALATION Q4H PRN PRN #18 g 04/29/20 [Rx Last Taken 07/12/20] carvedilol 25 mg PO BID 07/12/20 [History Last Taken 05/11/21] fluticasone propion-salmeterol 2 puff INHALATION BID 07/12/20 [History Last Taken 05/11/21] ferrous sulfate 325 mg PO BID #60 tab 07/15/20 [Rx Last Taken 05/11/21] guaifenesin 1,200 mg PO BID #14 tab 07/15/20 [Rx Last Taken Unknown] Spiriva Respimat 2 inh INHALATION BID 05/12/21 [History Last Taken 05/11/21] Xarelto 20 mg PO DAILY 05/12/21 [History Last Taken 05/11/21] magnesium oxide 400 mg PO DAILY 05/12/21 [History Last Taken 05/11/21] potassium chloride 40 meq PO BID 05/12/21 [History Last Taken 05/11/21] Allergy/AdvReac Type Severity Reaction Status Date / Time albuterol sulfate Allergy Swelling Verified 05/20/21 11:57 [From Combivent] ipratropium bromide Allergy Swelling Verified 05/20/21 11:57 [From Combivent] metoprolol Allergy Laryngospas Verified 05/20/21 11:57 ms Sulfa (Sulfonamide Allergy Rash Verified 05/20/21 11:57 Antibiotics) beclomethasone [From Qvar] AdvReac COUGHING Verified 05/20/21 11:57 benzalkonium chloride AdvReac Rash Verified 05/20/21 11:57 [From Merthiolate (benzalkonium)] codeine AdvReac Chest Verified 05/20/21 11:57 tightness doxycycline AdvReac Abd Verified 05/20/21 11:57 cramps/diarrhea formoterol fumarate AdvReac PT UNSURE Verified 05/20/21 11:57 [From Dulera] OF REACTION hydrochlorothiazide AdvReac PT UNSURE Verified 05/20/21 11:57 OF REACTION ibuprofen [From Advil] AdvReac PT UNSURE Verified 05/20/21 11:57 OF REACTION iodine AdvReac Itching Verified 05/20/21 11:57 merbromin AdvReac PT UNSURE Verified 05/20/21 11:57 OF REACTION mometasone furoate AdvReac PT UNSURE Verified 05/20/21 11:57 [From Dulera] OF REACTION oseltamivir [From Tamiflu] AdvReac uterine Verified 05/20/21 11:57 pain prednisone AdvReac Abd Verified 05/20/21 11:57 cramps/diarrhea PLASTIC TAPE Allergy Rash Uncoded 05/20/21 11:57 Family History Father Emphysema of lung Sister Cancer uterine cancer Surgical History History of left heart catheterization (11/09/19) History of left mastectomy History of lumpectomy of right breast History of tubal ligation polyp removal S/P lumpectomy, right breast Social History Smoking Status: Current every day smoker tobacco type: cigarettes second hand exposure: Yes alcohol intake: current alcohol intake frequency: 0-2 drinks per day Alcohol type: wine substance use type: does not use caffeine: No what type of physical activity do you participate in: none seatbelt use: always do you feel safe at home: Yes Physical Exam Narrative Patient is awake alert oriented. neck no JVD. heart S1-S2. lungs clear to auscultation. abdomen soft positive bowel sounds. neurology. awake alert oriented x3. extremity. both legs are wrapped. lymphedema Medical Records Data Medical Nutrition Assessment Dietitian: Nutrition Therapy Diagnosis Start: 05/21/21 11:04 Freq: Status: Active Protocol: Document 05/21/21 11:19 DERIC (Rec: 05/21/21 11:19 [facility] [id number]) Nutrition Malnutrition Evidence of Malnutrition Exists No Intake Problem Increased Nutrient Needs (specify) Etiology (protein) related to skin status Signs/Symptoms as evidenced by PI coccyx/ buttocks Status Active Problem Recommendation Dietitian Recommendations/Changes Will change ensure enlive w/ medpass to ensure pudding w/ meals d/t fluid restriction Will order Pj bid w/ medpass for increase nutrition if consumed. Lab / Micro Data Result Diagrams: 05/21/21 04:30 05/21/21 04:30 Labs: Laboratory Results - last 24 hr 05/20/21 17:00: S.aureus Protein A PCR NEGATIVE, MRSA (PCR) Negative 05/20/21 18:20: MRSA (PCR) Negative 05/20/21 21:00: Sodium 123 L, Potassium 5.1, Chloride 94 L, Carbon Dioxide 23.0, Anion Gap 6, BUN 5 L, Creatinine 0.42 L, Estim Creat Clear Calc 40.83, Est GFR (MDRD) Af Amer 192, Est GFR (MDRD) Non-Af 158, BUN/Creatinine Ratio 12.0, Glucose 102, Calcium 9.2 08/01/21 04:30: WBC 5.9, RBC 3.37 L, Hgb 10.5 L, Hct 31.7 L, MCV 94.1, MCH 31.2, MCHC 33.1, RDW Std Deviation 44.4 H, RDW Coeff of Malini 13.0, Plt Count 271, MPV 8.7, Immature Gran % (Auto) 0.300, Neut % (Auto) 76.5 H, Lymph % (Auto) 10.6 L, [place] % (Auto) 9.1, Eos % (Auto) 3.0, Baso % (Auto) 0.5, Absolute Neuts (auto) 4.5, Absolute Lymphs (auto) 0.63 L, Nucleated RBC % 0 05/21/21 04:30: Sodium 125 L, Potassium 4.8, Chloride 97 L, Carbon Dioxide 21.0, Anion Gap 7, BUN 5 L, Creatinine 0.34 L, Estim Creat Clear Calc 40.83, Est GFR (MDRD) Af Amer 243, Est GFR (MDRD) Non-Af 201, BUN/Creatinine Ratio 14.8, Glucose 96, Calcium 9.0 05/21/21 15:00: S.aureus Protein A PCR NEGATIVE, MRSA (PCR) Negative
[2021-05-21 17:58] LABS: Urine Sodium < 5 mmol/L (Not Establ.)
[2021-05-21 18:17] LABS: Osmolality, Urine 503 mOsm/KG
[2021-05-21] MEDS: Nystatin Powder 15gm Bottle 1 APPLIC TOPICAL (20:59)
[2021-05-21] MEDS: 0.9% Saline Lock 10 ML Syringe IV (23:59)
[2021-05-22] VITALS (11 sets, daily range): BP systolic 98–104; BP diastolic 37–78; PULSE 68–96; RESP 16–20; TEMP 36.5–37.3; O2SAT 95–98
[2021-05-22] MEDS: Albuterol 2.5 MG/3 ML VIAL.NEB. INHALATION ×3 (06:36→19:50)
[2021-05-22] MEDS: Budesonide Respules 0.5 MG/2 ML AMPUL.NEB. INHALATION ×2 (06:37→19:50)
[2021-05-22 07:45] LABS: Absolute Lymphocyte Count 0.58 X10^3/uL (0.83-4.51); Absolute Neutrophil Count 3.5 X10^3/uL (2.0-7.7); Basophil# 0.04 X10^3/uL; Basophil% 0.8 % (0-1); Eosinophil# 0.21 X10^3/uL; Eosinophils% 4.4 % (0-5); Hematocrit 34.1 % (37-47); Hemoglobin 11.2 g/dL (12.0-15.0); Lymphocyte # 0.58 X10^3/ul (0.83-4.51); Lymphocyte % 12.1 % (19-41); Mean Corp Hgb Conc 32.8 g/dL (32-36); Mean Corpuscular Hgb 31.4 pg (27.0-32.0); Mean Corpuscular Volume 95.5 fL (81-99); Mean Platelet Vol. 8.4 fl (6.2-12.0); Monocyte# 0.43 X10^3/uL; Monocyte% 8.9 % (0-10); NRBC Flagged by Analyzer 0 % (0-5); Neutrophil # 3.53 X10^3/uL (2.7-7.7); Neutrophil % 73.4 % (47-70); POSITIVE DIFFERENTIAL YES; Platelet Count 292 K/mm3 (150-450); RBC Distribution Width CV 13.2 % (11.6-14.6); RBC Distribution Width SD 45.6 fl (35.1-43.9); Red Blood Count 3.57 M/mm3 (4.2-5.4); White Blood Count 4.8 K/mm3 (4.4-11.0)
[2021-05-22 07:50] LABS: Differential Indicated SCAN CRITERIA MET
[2021-05-22 07:58] LABS: Anion Gap 6 (5-15); BUN 6 mg/dL (7-18); BUN/Creat Ratio 15.6 RATIO (10-20); Calcium,Total 8.9 mg/dL (8.5-10.1); Chloride 100 mmol/L (98-107); Creatinine, Serum 0.38 mg/dL (0.55-1.02); EST Glomerular Filtration Rate 174 mL/min (>60); Est Glom Filt Rate - Afr Amer 210 mL/min (>60); Estimated Creatinine Clearance 40.83 ml/min; Glucose 101 mg/dL (74-106); Potassium 4.1 mmol/L (3.5-5.1); Sodium Level 129 mmol/L (136-145)
[2021-05-22 08:22] LABS: Differential Comment SCANNED
--- NOTE | 2021-05-22 08:40 | PN.RENAL_ITS ---
Subjective Subjective no new complaints. breathing is ok. no urinary complaints. Objective Data Objective Data Vital Signs: Vital Signs Temp Pulse Resp BP Pulse Ox 99.0 F 88 16 98/37 L 96 05/22/21 03:09 05/22/21 07:00 05/22/21 06:37 05/22/21 03:09 05/22/21 06:37 Oxygen Delivery Method Room Air Weight: 72.1 kg Body Mass Index (BMI) 28.1 Intake & Output: Intake and Output for Last 24 Hours 05/20/21 05/21/21 05/22/21 23:59 23:59 23:59 Intake Total 644.5 / 764.5 2533 / 2733 524 / 524 Output Total 725 / 1025 300 / 300 Balance 644.5 / 489.5 1808 / 1708 224 / 224 Medical Nutrition Assessment Dietitian: Nutrition Therapy Diagnosis Start: 05/21/21 11:04 Freq: Status: Active Protocol: Document 05/21/21 11:19 DERIC (Rec: 05/21/21 11:19 SLA [id number]) Nutrition Malnutrition Evidence of Malnutrition Exists No Intake Problem Increased Nutrient Needs (specify) Etiology (protein) related to skin status Signs/Symptoms as evidenced by PI coccyx/ buttocks Status Active Problem Recommendation Dietitian Recommendations/Changes Will change ensure enlive w/ medpass to ensure pudding w/ meals d/t fluid restriction Will order Pj bid w/ medpass for increase nutrition if consumed. Lab / Micro Data Result Diagrams: 05/22/21 07:35 05/22/21 07:35 Labs: Laboratory Results - last 24 hr 05/21/21 15:00: S.aureus Protein A PCR NEGATIVE, MRSA (PCR) Negative 05/21/21 17:45: Urine Osmolality 503, Ur Random Sodium < 5 05/22/21 07:35: WBC 4.8, RBC 3.57 L, Hgb 11.2 L, Hct 34.1 L, MCV 95.5, MCH 31.4, MCHC 32.8, RDW Std Deviation 45.6 H, RDW Coeff of Malini 13.2, Plt Count 292, MPV 8.4, Immature Gran % (Auto) 0.400, Neut % (Auto) 73.4 H, Lymph % (Auto) 12.1 L, [place] % (Auto) 8.9, Eos % (Auto) 4.4, Baso % (Auto) 0.8, Absolute Neuts (auto) 3.5, Absolute Lymphs (auto) 0.58 L, Nucleated RBC % 0, Differential Comment SCANNED 05/22/21 07:35: Sodium 129 L, Potassium 4.1, Chloride 100, Carbon Dioxide 23.0, Anion Gap 6, BUN 6 L, Creatinine 0.38 L, Estim Creat Clear Calc 40.83, Est GFR (MDRD) Af Amer 210, Est GFR (MDRD) Non-Af 174, BUN/Creatinine Ratio 15.6, Glucose 101, Calcium 8.9 Physical Exam Narrative Alert awake oriented x 3 no obvious distress no pallor no icterus no JVD s1s2 no murmurs lungs clear abdomen soft no organomegaly lymphedema no cyanosis Assessment & Plan Assessment/Plan (1) Acute hyponatremia: PLAN: Patient has known history of chronic hyponatremia. 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 She has history of lung malignancy which presumably is causing this. In general she has not been compliant with physician follow- ups. With fluid restriction alone, sodium is up to 129. Surprisingly urine sodium is less than 20. There might be some complement of volume overload especially since she has lymphedema. Since sodium is up to 129, no further workup needed. I would not start salt tablets on her due to edema situation. She might be a candidate for urea but she needs preauthorization. We will arrange follow-up as outpatient. Discussed with hospitalist
[2021-05-22] MEDS: Juven (unflavored) Packet 1 PACKET PO ×2 (09:59→16:26)
[2021-05-22] MEDS: Ferrous Sulfate 325 MG Tablet PO (10:00)
[2021-05-22] MEDS: Carvedilol 25 MG Tablet PO ×2 (10:00→21:24)
[2021-05-22] MEDS: Multivitamins,Ther W-Minerals Tablet 1 TABLET PO (10:00)
[2021-05-22] MEDS: Collagenase 30gm Tube 1 APPLIC TOPICAL (10:00)
[2021-05-22] MEDS: guaiFENesin 1,200 MG Tablet 1200 MG PO ×2 (10:00→21:24)
[2021-05-22] MEDS: Magnesium Chloride 64 MG Delay Rel.Tablet 128 MG PO (10:01)
[2021-05-22] MEDS: Nystatin Powder 15gm Bottle 1 APPLIC TOPICAL ×2 (10:02→21:27)
[2021-05-22] MEDS: Menthol/Lanolin/Calamine/Znox 113 GM Tube 1 APPLIC TOPICAL ×2 (10:02→21:27)
--- NOTE | 2021-05-22 10:10 | CASEMGMT ---
Social Work Met with patient in room. Patient confirms plan for TCU at discharge. Telephone call to TCU, Sarah. Sarah confirms to have patient on list. Will continue to follow. Geo CLIFTON, MIKKI
--- NOTE | 2021-05-22 11:25 | CASEMGMT ---
Social Work Telephone call from [facility], [facility]. Sarah confirms to be able to accept patient but no until tomorrow. Patient and medical team updated on above. PLAN: Discharge to TCU tomorrow. Geo CLIFTON, MIKKI
--- NOTE | 2021-05-22 11:55 | NURSING ---
skin photo: bilateral lower legs
--- NOTE | 2021-05-22 11:55 | NURSING ---
wound photo: left posterior lower leg
--- NOTE | 2021-05-22 12:15 | PN.HOSP_ITS ---
Subjective Subjective Discussed with the thermal cutter hand. Serum sodium is on baseline. Advised fluid restriction. Discussed with the wound care nurse, nurse case management and nursing staff. No fever or chills. Objective Data Objective Data Vital Signs: Vital Signs Temp Pulse Resp BP Pulse Ox 99.0 F 88 16 98/37 L 96 05/22/21 03:09 05/22/21 07:00 05/22/21 06:37 05/22/21 03:09 05/22/21 06:37 Oxygen Delivery Method Room Air Weight: 158 lb 15.253 oz Body Mass Index (BMI) 28.1 Intake & Output: Intake and Output for Last 24 Hours 05/20/21 05/21/21 05/22/21 23:59 23:59 23:59 Intake Total 644.5 / 764.5 2533 / 2733 524 / 524 Output Total 725 / 1025 300 / 300 Balance 644.5 / 489.5 1808 / 1708 224 / 224 Medical Nutrition Assessment Dietitian: Nutrition Therapy Diagnosis Start: 05/21/21 11:04 Freq: Status: Active Protocol: Document 05/21/21 11:19 SLA (Rec: 05/21/21 11:19 SLA [id number]) Nutrition Malnutrition Evidence of Malnutrition Exists No Intake Problem Increased Nutrient Needs (specify) Etiology (protein) related to skin status Signs/Symptoms as evidenced by PI coccyx/ buttocks Status Active Problem Recommendation Dietitian Recommendations/Changes Will change ensure enlive w/ medpass to ensure pudding w/ meals d/t fluid restriction Will order Pj bid w/ medpass for increase nutrition if consumed. Lab / Micro Data Result Diagrams: 05/22/21 07:35 05/22/21 07:35 Labs: Laboratory Results - last 24 hr 05/21/21 15:00: S.aureus Protein A PCR NEGATIVE, MRSA (PCR) Negative 05/21/21 17:45: Urine Osmolality 503, Ur Random Sodium < 5 05/22/21 07:35: WBC 4.8, RBC 3.57 L, Hgb 11.2 L, Hct 34.1 L, MCV 95.5, MCH 31.4, MCHC 32.8, RDW Std Deviation 45.6 H, RDW Coeff of Malini 13.2, Plt Count 292, MPV 8.4, Immature Gran % (Auto) 0.400, Neut % (Auto) 73.4 H, Lymph % (Auto) 12.1 L, [place] % (Auto) 8.9, Eos % (Auto) 4.4, Baso % (Auto) 0.8, Absolute Neuts (auto) 3.5, Absolute Lymphs (auto) 0.58 L, Nucleated RBC % 0, Differential Comment SCANNED 05/22/21 07:35: Sodium 129 L, Potassium 4.1, Chloride 100, Carbon Dioxide 23.0, Anion Gap 6, BUN 6 L, Creatinine 0.38 L, Estim Creat Clear Calc 40.83, Est GFR (MDRD) Af Amer 210, Est GFR (MDRD) Non-Af 174, BUN/Creatinine Ratio 15.6, Glucose 101, Calcium 8.9 Micro: Microbiology 05/21/21 15:00 Wound - Leg, Left Gram Stain - Final 05/21/21 15:00 Wound - Leg, Left Wound Culture - Preliminary Gram positive organism Physical Exam Narrative General: Alert, Oriented x3, Cooperative. HEENT: Atraumatic, PERRLA, EOMI, Normocephalic Oral: No Gingival or Mucosal Lesions/ Ulcerations Neck: Supple, No JVD, Negative Carotid Bruits Lungs: Air entry diminished in bilateral lung bases. Mild expiratory wheezing. Cardiovascular: Irregular rate and rhythm, A. fib. Normal S1, Normal S2, No murmurs Abdomen: Bowel Sounds Present, Soft, Non Tender, Non-Distended : No renal angle tenderness. No suprapubic tenderness. Extremities: No edema, Capillary Refill Less than 3 Seconds Skin: Leg swelling is better. Improvement in erythema/redness. Left leg has chronic ulcer had bedside debridement but he still has slough and devitalized tissue. Musculoskeletal: No Tenderness to Palpation of Joints or Extremities Neurological: Cranial nerves II-XII grossly intact, Deep Tendon Reflexes 2+/4 and Symmetrical, Neuro grossly intact Psych/Mental Status: Flat affect. Assessment & Plan Assessment/Plan (1) Hyponatremia: (2) Wound of lower extremity: PLAN: This 75-year-old female coming to ER for bilateral lymphedema, nonhealing ulcer of left leg and hyponatremia 1. 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 IV fluid half-normal saline at 75 mill for slow correction of sodium. Monitor sodium in the evening. Nephrology consult. Free water restriction 1500 mils per day 05/21: Serum sodium improved to 125 from 121. Fluid restriction. Further recommendation as per thermal cutter hand. 05/22: Serum sodium back to baseline 129. Continue fluid restriction. Discussed with the thermal cutter hand and advised follow-up as an outpatient to prior authorize urea for SIADH 2. Chronic bilateral lower extremity lymphedema, suspicion of right leg cellulitis, nonhealing ulcer left leg with purulent drainage: Patient received 1 dose of vancomycin and Zosyn in ER. Deep wound culture for MRSA. Blood cultures x2. Empirically start on IV Unasyn. If MRSA positive, will need doxycycline although showing allergy of abdominal cramps/diarrhea which I do not think is true allergy. Consult plastic surgeon and wound care nurse. Douglas wrap bandage. 05/21: MRSA is negative. Blood cultures are pending. Continue Unasyn. 05/22: Discussed with the wound nurse. Need further debridement and possible staged wound closure by Dr. Casillas probably as an outpatient. Follow-up wound care center. 3. 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 Patient significant biopsy left upper lobe reported non-small cell lung cancer favoring adenocarcinoma. Patient completed radiotherapy about 2 years ago. Continue home inhalers. Patient follows [facility]. Patient is still a smoker about a pack per day. Advised quitting. It seems patient never followed in pulmonary clinic. Dr. Campos has seen in June 202005/21: Patient does not remember about diagnosis of non-small cell lung cancer. She did not follow with her oncologist in last 2 years. 4. Chronic systolic heart failure with bilateral lymphedema: Strict input and output. Previous 2D echo in October 2019 shows EF 50% with stage III diastolic dysfunction and both atria enlarged. RVSP 26 mmHg. During previous hospitalization in 2019, she had thoracocentesis which revealed transudate. Mild hyperkalemia. 5. Chronic A. fib on Xarelto: H&H 11.8/36.9. Continue Xarelto 6. Hypertension: Patient was on lisinopril in the past but seems probably discontinued to low blood pressure. BP 99/63. 8/2: Blood pressure is on lower side, 98/31, 105/47. Continue to hold lisinopril and and torsemide. Discussed with the thermal cutter hand 7. Continued smoking cigarette/nicotine dependence: Counseled on cessation. Nicotine patch 8. DVT prophylaxis: On Xarelto PT and OT. Discussed with nurse case management for SNF placement Living will/advanced directive/end of life care: Patient does not have living will or advanced directive. After discussion of benefits/risks procedures involved with full code, DNR CC arrest and DNR CC, the patient opted for full code and she said she wants to live. Patient does want artificial life support including intubation, tube feed, ventilator and/chest compression, central venous catheter, vasopressor and DC shock if needed Total time spent in [id number] encounter in discussion of advanced directive 16 minutes. Charges/Coding Visit Charges Inpatient E&M: 48547 Subs Hosp L2
[2021-05-22] MEDS: 0.9% Saline Lock 10 ML Syringe IV (13:13)
--- NOTE | 2021-05-22 15:00 | CASEMGMT ---
Readmission chart review: Pt was admitted to PCU on 05/12/21 as OBS for Hyponatremia then status was changed to IP on 05/13/21. Pt then was discharged home 05/14/21. Pt returned to [facility] ED on 05/20/21 for weakness, wound on buttocks/groin and unable to care for self at home. Pt does have but per him, he has been doing a lot of pt's care at home. Pt requesting SNF placement and referral to TCU upon admission. Pt admitted to PCU for Hyponatremia, Leg wound. Therapy recommending SNF and pt/ are agreeable with recommendation. Pt to be discharged to TCU 05/23/21. SW following. SStnoam MARION CM
--- NOTE | 2021-05-22 15:43 | PN_ITS ---
Subjective Subjective Patient was seen today for follow up on ulcer and cellulitis left leg. Patient's is at bedside. Both patient and her relate the wound is much better. She has no new complaints. She has no complaints of fever, chills, nausea, or vomiting. Objective Data Objective Data Vital Signs: Vital Signs Temp Pulse Resp BP Pulse Ox 98.1 F 85 18 101/56 L 96 05/22/21 14:00 05/22/21 14:00 05/22/21 14:00 05/22/21 14:00 05/22/21 14:00 Oxygen Delivery Method Room Air Weight: 72.1 kg Body Mass Index (BMI) 28.1 Intake & Output: Intake and Output for Last 24 Hours 05/20/21 05/21/21 05/22/21 23:59 23:59 23:59 Intake Total 644.5 / 764.5 2533 / 2733 636 / 636 Output Total 725 / 1025 300 / 300 Balance 644.5 / 489.5 1808 / 1708 336 / 336 Medical Nutrition Assessment Dietitian: Nutrition Therapy Diagnosis Start: 05/21/21 11: 04 Freq: Status: Active Protocol: Document 05/21/21 11:19 SLA (Rec: 05/21/21 11:19 SLA [id number]) Nutrition Malnutrition Evidence of Malnutrition Exists No Intake Problem Increased Nutrient Needs (specify) Etiology (protein) related to skin status Signs/Symptoms as evidenced by PI coccyx/ buttocks Status Active Problem Recommendation Dietitian Recommendations/Changes Will change ensure enlive w/ medpass to ensure pudding w/ meals d/t fluid restriction Will order Pj bid w/ medpass for increase nutrition if consumed. Lab / Micro Data Result Diagrams: 05/23/21 05:50 05/23/21 05:50 Labs: Laboratory Results - last 24 hr 05/21/21 15:00: S.aureus Protein A PCR NEGATIVE, MRSA (PCR) Negative 05/21/21 17:45: Urine Osmolality 503, Ur Random Sodium < 5 05/22/21 07:35: WBC 4.8, RBC 3.57 L, Hgb 11.2 L, Hct 34.1 L, MCV 95.5, MCH 31.4, MCHC 32.8, RDW Std Deviation 45.6 H, RDW Coeff of Malini 13.2, Plt Count 292, MPV 8.4, Immature Gran % (Auto) 0.400, Neut % (Auto) 73.4 H, Lymph % (Auto) 12.1 L, [place] % (Auto) 8.9, Eos % (Auto) 4.4, Baso % (Auto) 0.8, Absolute Neuts (auto) 3.5, Absolute Lymphs (auto) 0.58 L, Nucleated RBC % 0, Differential Comment SCANNED 05/22/21 07:35: Sodium 129 L, Potassium 4.1, Chloride 100, Carbon Dioxide 23.0, Anion Gap 6, BUN 6 L, Creatinine 0.38 L, Estim Creat Clear Calc 40.83, Est GFR (MDRD) Af Amer 210, Est GFR (MDRD) Non-Af 174, BUN/Creatinine Ratio 15.6, Glucose 101, Calcium 8.9 Micro: Microbiology 05/20/21 11:50 Blood Culture (Wb) - Left Wrist Blood Culture - Preliminary No growth in 48 hours. 05/20/21 12:05 Blood Culture (Wb) - Right Hand Blood Culture - Preliminary No growth in 48 hours. 05/21/21 15:00 Wound - Leg, Left Gram Stain - Final 05/21/21 15:00 Wound - Leg, Left Wound Culture - Preliminary Gram positive organism Physical Exam Const alert and no apparent distress General Appearance: cooperative and comfortable Lymph Lymphatic: lymphedema Resp normal respiratory effort Effort and Inspection: able to speak in complete sentences Extremity normal capillary refill and no calf tenderness General Extremity: edema bilateral lower extremity and other findings Other Details: Capillary refill time less than 3 seconds noted to digits ; Negative for clubbing or cyanosis Skin General Skin Exam: atrophy and dry skin; Negative for ecchymosis, eschar, pallor or dermatitis Rashes: no rashes Wounds: wounds noted Wound Narrative: ulcer noted to left posterior leg, fibrogranular base, down to subcutaneous tissue, no malodor, erythema much improved, no purulence, no probing to bone, no streaking, no fluctuation, no crepitus, and no other signs of infection. Skin is atrophic and hairless. There is chronic lymphedema skin changes noted to bilateral lower extremities right worse than left with skin with wrinkled appearance. Chronic erythema color changes noted to bilateral lower extremities. Neuro Sensory Exam: extremities light-touch: normal Psych Appearance: appropriate Attitude: calm Assessment & Plan Assessment/Plan (1) Ulcer of left lower extremity with fat layer exposed: (2) Leg edema: (3) Acute on chronic systolic heart failure: (4) Bilateral cellulitis of lower leg: (5) Lymphedema of both lower extremities: PLAN: Patient seen and examined bedside with present. Appears left calf ulceration is improved, cellulitis improved. Continue with offloading, a long with daily dressing changes- currently Santyl and gauze. Keep lower extremity elevated, she states she is allergic to any kind of compression dressing such as an Douglas wrap material. Importance of proper wound care, smoking cessation, proper nutrition and weight management has been discussed to help optimize healing potential. Reviewed tib-fib x-rays without significant findings. Patient is noted to have no systemic signs of illness and a normal white blood cell count is noted. Cultures have been obtained of left posterior leg wound - results pending - patient on IV antibiotic therapy at this time. It is also noted Dr. Casillas saw patient today and considering possible wound debridement and closure in OR. Since Dr. Casillas following, podiatry will follow up as needed.
[2021-05-22] MEDS: Rivaroxaban 20 MG Tablet PO (16:26)
[2021-05-22] MEDS: Miconazole-7 Nitrate Cream 1 APPLIC VAGINAL (16:27)
--- NOTE | 2021-05-22 19:37 | CON.PCM_ITS ---
Assessment & Plan Assessment/Plan (1) Ulcer of left lower extremity with fat layer exposed: (2) Lymphedema of both lower extremities: (3) Lymphangitis of lower extremity: (4) Smoker: PLAN: Continue Santyl wound care to the left posterior leg ulcer. Continue IV antibiotics for the lymphangitis. Compression will help but she states she is allergic to compression wraps. So will keep her legs elevated. Culture thus far shows Gram positive organism. Probably Staph. Anticipate po antibiotics at discharge. Her posterior leg ulcer will have a difficult time to heal because of her lymphedema and surrounding periwound scar tissue that is curled inward. Recommend operative intervention with surgical preparation left posterior leg with incision and drainage and excisional debridement nonhealing infected ulcer. Will leave the wound open postoperatively and begin postoperative wound care with the [facility]. After discharge, will followup at the [facility]. With her lymphedema, it will be difficult to heal this ulcer. But there is a chance that the base of the ulcer can stabilize enough in the future to proceed with a skin graft or placement of advanced skin substitute grafts at the Wound Center. If surgery is not done, the ulcer will continue to fester and wound place her at risk for possible worsening of the infection, which can ultimately lead to an amputation, that can be potentially life threatening. She is in the process of being evaluated to go to TCU. Would like to proceed with the surgery before she is discharged home. Patient voices understanding. At the time of surgery, will send tissue to Pathology for analysis to rule out carcinoma and to Microbiology for culture. A positive culture will necessitate antibiotic therapy. Patient was informed of the risks and complications of the procedure including alternatives to surgery. These were discussed with the patient personally. Patient voices understanding and wishes to proceed. Encouraged patient to stop smoking as it may have deleterious effects on wound healing. We discussed the current risks associated with COVID-19. While it is understood that there is a community spread of COVID-19, the risk of maxim COVID-19 while at [facility] ([facility]) is very low; however, the risk cannot be completely mitigated because of the community spread of the disease. We discussed in detail the risk of exposure to and/or potential harm posed by the COVID-19 virus with having a surgery/procedure at this time versus the risk of delaying the surgery/procedure. It is not possible to know either the risk of delaying the surgery or procedure or chance of getting an infection with perfect accuracy, but a joint decision was made to proceed at this time with the scheduled surgery/procedure as indicated on the consent form. Patient was notified that we will need to comply with any screening or testing [facility] wishes to perform or that surgery may be delayed for any positive results. HPI Consult Data Date of Consult: 05/22/21 PCP / Referring MD: Dr. Amber Sanders MD Attending Care Provider: Dr. Deshaun Cota MD HPI Narrative Reason for Consultation: Nonhealing ulcer left posterior leg. HPI Narrative: EUNICE BRAVO, is a 75 F who was admitted for lymphedema with lymphangitis and hyponatremia. 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 For her lymphangitis she was started on Vancomycin and Zosyn. She stated about a month ago she struck her left leg on her wheelchair and sustained a nonhealing ulcer. Recent culture shows Gram positive organism. I was asked to evaluate the patient for surgical options for treatment. [facility] Medical History Acute on chronic systolic (congestive) heart failure Bilateral leg ulcer COPD (chronic obstructive pulmonary disease) Debility Dependence on supplemental oxygen Dependent edema Essential (primary) hypertension History of breast cancer Hyponatremia Immobility Irregular heart beat Leg edema, left Leg edema, right Leg swelling Lumbar disc disease Lung mass Lymphangitis of lower extremity Lymphedema of both lower extremities New onset A. fib with RVR Nicotine dependence Non-ischemic cardiomyopathy Non-rheumatic tricuspid valve insufficiency Nonrheumatic mitral (valve) insufficiency Osteoporosis Paroxysmal atrial fibrillation Secondary pulmonary arterial hypertension Smoker Suspected chronic obstructive pulmonary disease based on initial evaluation Thrush, oral Tobacco abuse Tobacco abuse counseling Ulcer of left lower extremity with fat layer exposed Wound cellulitis Home Medications tkibijaz-bod-stub-FA-lutein 1 tab PO DAILY 10/05/19 [History Last Taken 05/11/21] albuterol sulfate 90 mcg/actuation aerosol inhaler 1 - 2 puff INHALATION Q4H PRN PRN #18 g 04/29/20 [Rx Last Taken 07/12/20] carvedilol 25 mg PO BID 07/12/20 [History Last Taken 05/11/21] fluticasone propion-salmeterol 2 puff INHALATION BID 07/12/20 [History Last Taken 05/11/21] Spiriva Respimat 2 inh INHALATION BID 05/12/21 [History Last Taken 05/11/21] Xarelto 20 mg PO DAILY 05/12/21 [History Last Taken 05/11/21] magnesium oxide 400 mg PO DAILY 05/12/21 [History Last Taken 05/11/21] amoxicillin-pot clavulanate [Augmentin] 1 tab PO BID 05/23/21 [History Last Taken 05/23/21 1034] tmbik-aekw-GnQDO-mubypl-hq-ivt [Pj (with collagen)] 1 packet PO BIDCM 05/23/21 [History Last Taken Unknown] collagenase clostridium histo. [Santyl] 1 applic TOPICAL DAILY 05/23/21 [History Last Taken Unknown] ferrous sulfate [FeroSul] 325 mg PO QODAY@1200 05/23/21 [History Last Taken Unknown] guaifenesin 1,200 mg PO BID 05/23/21 [History Last Taken Unknown] menthol-zinc oxide [Calmoseptine] 1 applic TOPICAL BID 05/23/21 [History Last Taken Unknown] miconazole nitrate 1 applic VAGINAL QHS 05/23/21 [History Last Taken Unknown] nystatin [Nyamyc] 1 applic TOPICAL BID 05/23/21 [History Last Taken Unknown] sennosides-docusate sodium [Stool Softener-Stimulant Laxat] 2 tab PO BID 05/23/21 [History Last Taken Unknown] Allergy/AdvReac Type Severity Reaction Status Date / Time albuterol sulfate Allergy Swelling Verified 05/20/21 11:57 [From Combivent] ipratropium bromide Allergy Swelling Verified 05/20/21 11:57 [From Combivent] metoprolol Allergy Laryngospas Verified 05/20/21 11:57 ms Sulfa (Sulfonamide Allergy Rash Verified 05/20/21 11:57 Antibiotics) beclomethasone [From Qvar] AdvReac COUGHING Verified 05/20/21 11:57 benzalkonium chloride AdvReac Rash Verified 05/20/21 11:57 [From Merthiolate (benzalkonium)] codeine AdvReac Chest Verified 05/20/21 11:57 tightness doxycycline AdvReac Abd Verified 05/20/21 11:57 cramps/diarrhea formoterol fumarate AdvReac PT UNSURE Verified 05/20/21 11:57 [From Dulera] OF REACTION hydrochlorothiazide AdvReac PT UNSURE Verified 05/20/21 11:57 OF REACTION ibuprofen [From Advil] AdvReac PT UNSURE Verified 05/20/21 11:57 OF REACTION iodine AdvReac Itching Verified 05/20/21 11:57 merbromin AdvReac PT UNSURE Verified 05/20/21 11:57 OF REACTION mometasone furoate AdvReac PT UNSURE Verified 05/20/21 11:57 [From Dulera] OF REACTION oseltamivir [From Tamiflu] AdvReac uterine Verified 05/20/21 11:57 pain prednisone AdvReac Abd Verified 05/20/21 11:57 cramps/diarrhea PLASTIC TAPE Allergy Rash Uncoded 05/20/21 11:57 Family History Father Emphysema of lung Sister Cancer uterine cancer Surgical History History of left heart catheterization (11/09/19) History of left mastectomy History of lumpectomy of right breast History of tubal ligation polyp removal S/P lumpectomy, right breast Social History household members: spouse Smoking Status: Current every day smoker tobacco type: cigarettes second hand exposure: Yes alcohol intake: current alcohol intake frequency: 0-2 drinks per day Alcohol type: wine substance use type: does not use caffeine: No what type of physical activity do you participate in: none seatbelt use: always do you feel safe at home: Yes ROS ROS Narrative General - Denies fever, fatigue, and weight loss. Mainly wheelchair-bound. Eyes - Denies cataracts and glaucoma. ENT - Denies nasal congestion and sore throat. Endocrine - Denies excessive thirst and urination. Skin - Denies suspicious lesions and skin cancer. Has lower extremity lymphedema with lymphangitis. Musculoskeletal - Has joint pain. Denies joint stiffness, weakness of muscles and joints, back pain, and arthritis. Neuro - Denies headaches. Cardiovascular - Denies chest pain, fatigue, and shortness of breath with exertion. Psych - Denies anxiety and depression. Respiratory - Denies chronic cough and shortness of breath. Gastrointestinal - Denies nausea, vomiting, diarrhea, and constipation. Hematologic - Denies abnormal bruising and bleeding. Genitourinary - Denies hematuria and urinary frequency. Physical Exam Narrative General - Alert and Oriented. HEENT - PERRL. EOMI. Throat is clear. Neck - Supple and nontender. No cervical adenopathy. Lungs - Clear to auscultation. Heart - Regular rate and rhythm. Abdomen - Soft and nondistended. Extremities - FROM. No axillary adenopathy. Radial pulses are palpable. No inguinal adenopathy. Dorsalis pedis pulses are diminished secondary to lymphedema. Has bilateral lymphedema lower extremities with lymphangitis. On the left posterior proximal leg is a nonhealing ulcer. Measures 5 cm. Some exudate. No purulent drainage. Irregular borders. Neuro - CN II-XII grossly intact. Psych - Normal mood and affect. Medical Records Data Medical Nutrition Assessment Dietitian: Nutrition Therapy Diagnosis Start: 05/21/21 11:04 Freq: Status: Active Protocol: Document 05/21/21 11:19 DERIC (Rec: 05/21/21 11:19 [facility] [id number]) Nutrition Malnutrition Evidence of Malnutrition Exists No Intake Problem Increased Nutrient Needs (specify) Etiology (protein) related to skin status Signs/Symptoms as evidenced by PI coccyx/ buttocks Status Active Problem Recommendation Dietitian Recommendations/Changes Will change ensure enlive w/ medpass to ensure pudding w/ meals d/t fluid restriction Will order Pj bid w/ medpass for increase nutrition if consumed. Lab / Micro Data Attestation: I reviewed the patient's lab results. Result Diagrams: 05/23/21 05:50 05/23/21 05:50 Labs: Laboratory Results - last 24 hr 05/22/21 07:35: WBC 4.8, RBC 3.57 L, Hgb 11.2 L, Hct 34.1 L, MCV 95.5, MCH 31.4, MCHC 32.8, RDW Std Deviation 45.6 H, RDW Coeff of Malini 13.2, Plt Count 292, MPV 8.4, Immature Gran % (Auto) 0.400, Neut % (Auto) 73.4 H, Lymph % (Auto) 12.1 L, Boone % (Auto) 8.9, Eos % (Auto) 4.4, Baso % (Auto) 0.8, Absolute Neuts (auto) 3.5, Absolute Lymphs (auto) 0.58 L, Nucleated RBC % 0, Differential Comment SCANNED 05/22/21 07:35: Sodium 129 L, Potassium 4.1, Chloride 100, Carbon Dioxide 23.0, Anion Gap 6, BUN 6 L, Creatinine 0.38 L, Estim Creat Clear Calc 40.83, Est GFR (MDRD) Af Amer 210, Est GFR (MDRD) Non-Af 174, BUN/Creatinine Ratio 15.6, Glucose 101, Calcium 8.9 Micro: Microbiology 05/22/21 14:50 Mucosa - Nasopharyngeal SARS-CoV-2 Antigen (Rapid) - Final 05/20/21 11:50 Blood Culture (Wb) - Left Wrist Blood Culture - Preliminary No growth in 48 hours. 05/20/21 12:05 Blood Culture (Wb) - Right Hand Blood Culture - Preliminary No growth in 48 hours. 05/21/21 15:00 Wound - Leg, Left Gram Stain - Final 05/21/21 15:00 Wound - Leg, Left Wound Culture - Preliminary Gram positive organism Procedure Criteria Type of Procedure Procedure Type: Elective Elective Risks - COVID COVID Risk Discussion: The surgeon/proceduralist and patient have discussed in detail the risk of exposure to and/or potential harm posed by the COVID-19 virus with having a surgery/procedure at this time versus the risk of delaying the surgery/procedure. It is not possible to know either the risk of delaying the surgery or procedure or chance of getting an infection with perfect accuracy, but a joint decision was made between the patient and the surgeon/proceduralist to proceed at this time with the scheduled surgery/procedure as indicated on the consent form. Charges/Coding Visit Charges Inpatient E&M: 82926 Init Hosp L2 (ICD-10 - L97.922, I89.0, I89.1, F17.200)
[2021-05-22] MEDS: Senna/Docusate Sodium 1 Tablet 2 TABLET PO (21:26)
[2021-05-23] VITALS (7 sets, daily range): BP systolic 142; BP diastolic 72–79; PULSE 77–91; RESP 18–20; TEMP 36.4–36.6; O2SAT 91–98
[2021-05-23] MEDS: 0.9% Saline Lock 10 ML Syringe IV (05:11)
[2021-05-23] MEDS: Budesonide Respules 0.5 MG/2 ML AMPUL.NEB. INHALATION (06:52)
[2021-05-23] MEDS: Albuterol 2.5 MG/3 ML VIAL.NEB. INHALATION ×2 (06:52→13:09)
[2021-05-23 07:10] LABS: Absolute Lymphocyte Count 0.67 X10^3/uL (0.83-4.51); Absolute Neutrophil Count 2.7 X10^3/uL (2.0-7.7); Basophil# 0.04 X10^3/uL; Eosinophil# 0.23 X10^3/uL; Eosinophils% 5.6 % (0-5); Hematocrit 35.4 % (37-47); Hemoglobin 11.3 g/dL (12.0-15.0); Lymphocyte # 0.67 X10^3/ul (0.83-4.51); Lymphocyte % 16.4 % (19-41); Mean Corp Hgb Conc 31.9 g/dL (32-36); Mean Corpuscular Hgb 31.4 pg (27.0-32.0); Mean Corpuscular Volume 98.3 fL (81-99); Mean Platelet Vol. 8.5 fl (6.2-12.0); Monocyte# 0.44 X10^3/uL; Monocyte% 10.8 % (0-10); NRBC Flagged by Analyzer 0 % (0-5); Neutrophil # 2.69 X10^3/uL (2.7-7.7); Neutrophil % 65.7 % (47-70); Platelet Count 281 K/mm3 (150-450); RBC Distribution Width CV 13.2 % (11.6-14.6); RBC Distribution Width SD 47.3 fl (35.1-43.9); White Blood Count 4.1 K/mm3 (4.4-11.0)
[2021-05-23 07:37] LABS: Anion Gap 6 (5-15); BUN 12 mg/dL (7-18); BUN/Creat Ratio 32.3 RATIO (10-20); Calcium,Total 9.1 mg/dL (8.5-10.1); Chloride 99 mmol/L (98-107); Creatinine, Serum 0.37 mg/dL (0.55-1.02); EST Glomerular Filtration Rate 180 mL/min (>60); Est Glom Filt Rate - Afr Amer 218 mL/min (>60); Estimated Creatinine Clearance 40.83 ml/min; Glucose 96 mg/dL (74-106); Potassium 4.1 mmol/L (3.5-5.1); Sodium Level 129 mmol/L (136-145)
[2021-05-23] MEDS: guaiFENesin 1,200 MG Tablet 1200 MG PO (08:36)
[2021-05-23] MEDS: Carvedilol 25 MG Tablet PO (08:36)
[2021-05-23] MEDS: Magnesium Chloride 64 MG Delay Rel.Tablet 128 MG PO (08:36)
[2021-05-23] MEDS: Multivitamins,Ther W-Minerals Tablet 1 TABLET PO (08:37)
[2021-05-23] MEDS: Juven (unflavored) Packet 1 PACKET PO (10:06)
--- NOTE | 2021-05-23 10:22 | PCM.TXEXTCAR ---
Diet 05/20/21 15:33 Diet: Cardiac - Heart Healthy Food consistency:: Regular Liquid Consistency:: Regular/Thin Type of Dietary Supplement:: Ensure Pudding Diet Comments: Fluid restriction 1500 mL/DAY; ensure pudding with lunch and dinner Routine Orders/Code Status Suppository Type: Dulcolax 10mg Suppository Frequency: Daily PRN Routine Lab Work: CBC and BMP (weekly) Code Status: Full Code Wound(s) coccyx/buttocks: Wound Type: Pressure Injury legs: Wound Type: Pressure Injury RLE: Wound Type: cellulitis L POST CALF: Wound Type: traumatic wound from wheelchair Dressing Change: santyl with dry dressing Therapies Weight Bearing: Full weight bearing Extremity Affected:: Bilateral Lower Physical Therapy: Eval and Treat Occupational Therapy: Eval and Treat Speech Therapy: Eval and Treat Problem/Diagnosis (1) Ulcer of left lower extremity with fat layer exposed: Status: Acute (2) Leg edema: Status: Chronic (3) Acute on chronic systolic heart failure: Status: Acute (4) Bilateral cellulitis of lower leg: Status: Acute (5) Lymphedema of both lower extremities: Status: Acute Allergies/Procedures Done in Hospital Allergies albuterol sulfate [From Combivent] Allergy (Verified 05/20/21 11:57) Swelling ipratropium bromide [From Combivent] Allergy (Verified 05/20/21 11:57) Swelling metoprolol Allergy (Verified 05/20/21 11:57) Laryngospasms Sulfa (Sulfonamide Antibiotics) Allergy (Verified 05/20/21 11:57) Rash beclomethasone [From Qvar] Adverse Reaction (Verified 05/20/21 11:57) COUGHING benzalkonium chloride [From Merthiolate (benzalkonium)] Adverse Reaction (Verified 05/20/21 11:57) Rash codeine Adverse Reaction (Verified 05/20/21 11:57) Chest tightness chest hurts doxycycline Adverse Reaction (Verified 05/20/21 11:57) Abd cramps/diarrhea formoterol fumarate [From Dulera] Adverse Reaction (Verified 05/20/21 11:57) PT UNSURE OF REACTION hydrochlorothiazide Adverse Reaction (Verified 05/20/21 11:57) PT UNSURE OF REACTION ibuprofen [From Advil] Adverse Reaction (Verified 05/20/21 11:57) PT UNSURE OF REACTION iodine Adverse Reaction (Verified 05/20/21 11:57) Itching merbromin Adverse Reaction (Verified 05/20/21 11:57) PT UNSURE OF REACTION mometasone furoate [From Dulera] Adverse Reaction (Verified 05/20/21 11:57) PT UNSURE OF REACTION oseltamivir [From Tamiflu] Adverse Reaction (Verified 05/20/21 11:57) uterine pain prednisone Adverse Reaction (Verified 05/20/21 11:57) Abd cramps/diarrhea PLASTIC TAPE Allergy (Uncoded 05/20/21 11:57) Rash Type of Care/Length of Stay Estimated LOS: Convalescent Care Less Than 30 days Type of Care Needed: Skilled Rehab Potential: Good Prognosis: Good Additional Orders/Day of Discharge Day of Discharge: 05/23/21 Dietary and Speech Recommendations Dietitian Recommendations/Changes: Will change ensure enlive w/ medpass to ensure pudding w/ meals d/t fluid restriction Will order Pj bid w/ medpass for increase nutrition if consumed. Follow Up Care Please follow up with your Primary Care Physician in: in 1 week Please Follow Up With: Tony Ying MD When: in 2 weeks for hyponatremia, SIADH Please Follow Up With: Apolinar Cazares DO When: IN 4 WEEKS Please Follow Up With: Matt Casillas MD When: As scheudled Please Follow Up With: Vignesh Georges MD When: as needed for antibiotic issues/leg infection Please Follow Up With: Shyann Olivares DPM When: in wound center in 2 weeks Discharge Plan Admission Admit Date/Time: 05/20/21 14:24 Primary Reason for Your Visit: Hyponatremia, LEFT leg infection Attending Provider: Deshaun Cota Primary Care Provider: Amber Sanders Consulting Providers: Vandana Martinez ; Shyann Olivares ; Matt Casillas Instructions Patient Instructions: Hyponatremia Dc Additional Instructions / Restrictions: To continue with daily dressing changes. To wash foot and leg with soap and water bilateral. Then apply Santyl to posterior left leg ulceration covered with dry sterile dressing including 4 x 4's ABDs Kerlix. To apply ABD Kerlix to right lower extremity to offload and support the preulcerative area to posterior calf. To elevate and offload bilateral lower extremities much as possible. Recommend pillow underneath the lower calf in order to float ulcerative and preulcerative areas on upper posterior calf. Follow-up in wound center every week with Dr. Olivares. Discharge Orders/Prescriptions Prescriptions: New Santyl 250 unit/gram Ointment 1 applic topical DAILY Qty: 0 RF: 0 sennosides-docusate sodium [Stool Softener-Stimulant Laxat] 8.6-50 mg Tablet 2 tab PO BID Qty: 0 RF: 0 miconazole nitrate 2 % Cream 1 applic vaginal QHS Qty: 0 RF: 0 ferrous sulfate [FeroSul] 325 mg (65 mg iron) Tablet 325 mg PO QODAY@1200 Qty: 0 RF: 0 nystatin [Nyamyc] 100,000 unit/gram Powder 1 applic topical BID Qty: 0 RF: 0 menthol-zinc oxide [Calmoseptine] 0.44-20.6 % Ointment 1 applic topical BID Qty: 0 RF: 0 Pj (with collagen) 7-7-1.5 gram Powder In Packet 1 packet PO BIDCM Qty: 0 RF: 0 amoxicillin-pot clavulanate [Augmentin] 875-125 mg tablet 1 tab PO BID Qty: 8 RF: 0 Continued qrrprxep-zyy-fhfw-FA-lutein 1 EACH tablet 1 tab PO DAILY RF: 0 carvedilol 25 MG tablet 25 mg PO BID RF: 0 fluticasone propion-salmeterol 1 PUFF inhaler 2 puff inhalation BID RF: 0 magnesium oxide 400 mg (241.3 mg magnesium) tablet 400 mg PO DAILY RF: 0 Xarelto 20 mg tablet 20 mg PO DAILY RF: 0 Spiriva Respimat 2.5 mcg/actuation mist 2 inh INHALATION BID RF: 0 guaifenesin 1,200 MG tablet 1,200 mg PO BID Qty: 14 RF: 0 albuterol sulfate 90 mcg/actuation HFA aerosol inhaler 1 - 2 puff INHALATION Q4H PRN PRN (Reason: Asthma) Qty: 18 RF: 6 Discontinued ferrous sulfate 325 MG tablet 325 mg PO BID Qty: 60 RF: 0 potassium chloride 10 mEq capsule, extended release 40 meq PO BID RF: 0 Referrals / Follow Up: Wound Health [Outside] (Previously established with Jovanna Partida. Noted wounds to leg and butt.) Amber Sanders MD [Primary Care Provider] - Disposition Disposition (needs filled in before D/C Order can be placed): [facility]
[2021-05-23] MEDS: Menthol/Lanolin/Calamine/Znox 113 GM Tube 1 APPLIC TOPICAL (10:44)
[2021-05-23] MEDS: Nystatin Powder 15gm Bottle 1 APPLIC TOPICAL (10:45)
[2021-05-23] MEDS: Collagenase 30gm Tube 1 APPLIC TOPICAL (10:45)
--- NOTE | 2021-05-23 10:49 | PHA.DC.MR ---
Pharmacy Service has performed discharge medication reconciliation for this patient. The patient's discharge medication list was reviewed for discrepancies and discrepancies were resolved. Home Medications gahforck-wio-culp-FA-lutein 1 tab PO DAILY 10/05/19 albuterol sulfate 90 mcg/actuation aerosol inhaler 1 - 2 puff INHALATION Q4H PRN PRN #18 g 04/29/20 carvedilol 25 mg PO BID 07/12/20 fluticasone propion-salmeterol 2 puff INHALATION BID 07/12/20 Spiriva Respimat 2 inh INHALATION BID 05/12/21 Xarelto 20 mg PO DAILY 05/12/21 magnesium oxide 400 mg PO DAILY 05/12/21 amoxicillin-pot clavulanate [Augmentin] 1 tab PO BID #8 tab 05/23/21 fhalf-giae-CnVFG-rxtmpx-kk-gkg [Pj (with collagen)] 1 packet PO BIDCM #0 ea 05/23/21 collagenase clostridium histo. [Santyl] 1 applic TOPICAL DAILY #0 g 05/23/21 ferrous sulfate [FeroSul] 325 mg PO QODAY@1200 #0 tab 05/23/21 guaifenesin 1,200 mg PO BID #14 tab 05/23/21 menthol-zinc oxide [Calmoseptine] 1 applic TOPICAL BID #0 g 05/23/21 miconazole nitrate 1 applic VAGINAL QHS #0 g 05/23/21 nystatin [Nyamyc] 1 applic TOPICAL BID #0 g 05/23/21 sennosides-docusate sodium [Stool Softener-Stimulant Laxat] 2 tab PO BID #0 tab 05/23/21
--- NOTE | 2021-05-23 13:03 | NURSING ---
report called to [facility] with no questions voiced. will call when room cleaned
--- NOTE | 2021-05-23 13:44 | PCM.DC.SUM ---
Providers Date of Admission: 05/20/21 Primary Care Physician: Dr. Amber Sanders MD Consultations 05/20/21 15:33 Consult: Nephrology Routine Consulting Provider: Vandana Martinez Reason for Consult: Acute on chronic hyponatremia, bilateral lymphedema. Torsemide on hold EMERGENT Consult: No MD Notified: Yes Date Notified: 05/20/21 Time Notified: 15:47 Method of Notification: Answering Service Consult: Onc/Wound/lumber sorter Routine Comment: Reason for Consult:: Left leg posterior aspect wound. Bilateral lymphedema Consult: Podiatry Routine Consulting Provider: Shyann Olivares Reason for Consult: B/L weeping/lymphedema EMERGENT Consult: No MD Notified: Yes Date Notified: 05/20/21 Time Notified: 16:09 Method of Notification: Text Consult: Vascular Surgery Routine Consulting Provider: Matt Casillas Reason for Consult: Left leg deep wound, purulent drainage after fall, 3-4 weeks ago EMERGENT Consult: No MD Notified: Yes Date Notified: 05/20/21 Time Notified: 16:07 Method of Notification: telephone- Reason For Visit: HYPONATREMIA LEG WOUND Diagnosis Discharge Diagnosis (1) Ulcer of left lower extremity with fat layer exposed: Status: Acute Code(s): L97.922 - Non-pressure chronic ulcer of unspecified part of left lower leg with fat layer exposed (2) Leg edema: Status: Chronic Code(s): R60.0 - Localized edema (3) Acute on chronic systolic heart failure: Status: Acute (4) Bilateral cellulitis of lower leg: Status: Acute Code(s): L03.116 - Cellulitis of left lower limb; L03.115 - Cellulitis of right lower limb (5) Lymphedema of both lower extremities: Status: Acute Code(s): I89.0 - Lymphedema, not elsewhere classified Medications at Discharge Home Medications wnglhepl-uhd-ojtr-FA-lutein 1 tab PO DAILY 10/05/19 albuterol sulfate 90 mcg/actuation aerosol inhaler 1 - 2 puff INHALATION Q4H PRN PRN #18 g 04/29/20 carvedilol 25 mg PO BID 07/12/20 fluticasone propion-salmeterol 2 puff INHALATION BID 07/12/20 Spiriva Respimat 2 inh INHALATION BID 05/12/21 Xarelto 20 mg PO DAILY 05/12/21 magnesium oxide 400 mg PO DAILY 05/12/21 amoxicillin-pot clavulanate [Augmentin] 1 tab PO BID #8 tab 05/23/21 wblia-oefw-UhQFY-fhvbso-io-lzl [Pj (with collagen)] 1 packet PO BIDCM #0 ea 05/23/21 collagenase clostridium histo. [Santyl] 1 applic TOPICAL DAILY #0 g 05/23/21 ferrous sulfate [FeroSul] 325 mg PO QODAY@1200 #0 tab 05/23/21 guaifenesin 1,200 mg PO BID #14 tab 05/23/21 menthol-zinc oxide [Calmoseptine] 1 applic TOPICAL BID #0 g 05/23/21 miconazole nitrate 1 applic VAGINAL QHS #0 g 05/23/21 nystatin [Nyamyc] 1 applic TOPICAL BID #0 g 05/23/21 sennosides-docusate sodium [Stool Softener-Stimulant Laxat] 2 tab PO BID #0 tab 05/23/21 Hospital Course Summary of Care Provided Hospital Course: This 75-year-old female coming to ER for bilateral lymphedema, nonhealing ulcer of left leg and hyponatremia 1. 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 IV fluid half-normal saline at 75 mill for slow correction of sodium. Monitor sodium in the evening. Nephrology consult. Free water restriction 1500 mils per day. See sodium improved to 129. Discussed with the brewery representative and advised follow-up as an outpatient to prior authorize urea for SIADH 2. Chronic bilateral lower extremity lymphedema, suspicion of right leg cellulitis, nonhealing ulcer left leg with purulent drainage: Patient received 1 dose of vancomycin and Zosyn in ER. Deep wound culture for MRSA. Blood cultures x2. Empirically start on IV Unasyn. If MRSA positive, will need doxycycline although showing allergy of abdominal cramps/diarrhea which I do not think is true allergy. Consult plastic surgeon and wound care nurse. Douglas wrap bandage. MRSA is negative. Wound culture shows gram-negative faith rare, staph species very rare. Blood cultures are negative. Patient is discharged on Augmentin to complete a total of 7 days. Earlier discussed with Dr. Casillas for outpatient staged wound debridement and closure after wound infection is cleared. 3. 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 Patient significant biopsy left upper lobe reported non-small cell lung cancer favoring adenocarcinoma. Patient completed radiotherapy about 2 years ago. Continue home inhalers. Patient follows [facility] oncology. Patient is still a smoker about a pack per day. Advised quitting. It seems patient never followed in pulmonary clinic. Dr. Campos has seen in June 2020. Her said patient had radiation, about 3 years ago and follow Dr. Cazares about 2 to 3 years ago and since then no follow-up. Advised to continue follow-up. 4. Chronic systolic heart failure with bilateral lymphedema: Strict input and output. Previous 2D echo in October 2019 shows EF 50% with stage III diastolic dysfunction and both atria enlarged. RVSP 26 mmHg. During previous hospitalization in 2019, she had thoracocentesis which revealed transudate. Mild hyperkalemia. /3: Hyperkalemia resolved. Supplemental potassium discontinued and torsemide discontinued 5. Chronic A. fib on Xarelto: H&H 11.8/36.9. Continue Xarelto 6. Hypertension: Patient was on lisinopril in the past but seems probably discontinued to low blood pressure. BP 99/63. Blood pressure is on lower side, 98/31, 105/47 and then improved. Not on lisinopril anymore. Discussed with the brewery representative. Reevaluate as an outpatient if patient can be put back on lisinopril 7. Continued smoking cigarette/nicotine dependence: Counseled on cessation. Nicotine patch 8. DVT prophylaxis: On Xarelto PT and OT. Discussed with foster care case manager for SNF placement Living will/advanced directive/end of life care: Full code Discharge medication reconciliation done. Discharge follow-up instructions completed. Discharge process discussed with the patient and all questions were answered to patient's satisfaction. Discharged to TCU Total time spent, exact 35 minutes on discharge meds reconciliation, examination, coordination of care with nurses and ancillary staff, review of imaging and blood test and discussion with the patient on follow-up instructions Physical Exam Narrative General: Alert, Oriented x3, Cooperative. HEENT: Atraumatic, PERRLA, EOMI, Normocephalic Oral: No Gingival or Mucosal Lesions/ Ulcerations Neck: Supple, No JVD, Negative Carotid Bruits Lungs: Air entry diminished in bilateral lung bases. Mild expiratory wheezing. Cardiovascular: Irregular rate and rhythm, A. fib. Normal S1, Normal S2, No murmurs Abdomen: Bowel Sounds Present, Soft, Non Tender, Non-Distended : No renal angle tenderness. No suprapubic tenderness. Extremities: No edema, Capillary Refill Less than 3 Seconds Skin: Leg swelling is better. Improvement in erythema/redness. Left leg has chronic ulcer had bedside debridement but he still has slough and devitalized tissue. Musculoskeletal: No Tenderness to Palpation of Joints or Extremities Neurological: Cranial nerves II-XII grossly intact, Deep Tendon Reflexes 2+/4 and Symmetrical, Neuro grossly intact Psych/Mental Status: Flat affect. Medical Records Data Medical Nutrition Assessment Dietitian: Nutrition Therapy Diagnosis Start: 05/21/21 11:04 Freq: Status: Active Protocol: Document 05/21/21 11:19 [facility] (Rec: 05/21/21 11:19 [facility] [id number]) Nutrition Malnutrition Evidence of Malnutrition Exists No Intake Problem Increased Nutrient Needs (specify) Etiology (protein) related to skin status Signs/Symptoms as evidenced by PI coccyx/ buttocks Status Active Problem Recommendation Dietitian Recommendations/Changes Will change ensure enlive w/ medpass to ensure pudding w/ meals d/t fluid restriction Will order Pj bid w/ medpass for increase nutrition if consumed. Weight / BMI Weight Weight: 158 lb 15.253 oz Body Mass Index (BMI) 28.1 ABG / Lab / Microbiology Data Result Diagrams: 05/23/21 05:50 05/23/21 05:50 Laboratory: Laboratory Results - last 24 hr 05/23/21 05:50: WBC 4.1 L, RBC 3.60 L, Hgb 11.3 L, Hct 35.4 L, MCV 98.3, MCH 31.4, MCHC 31.9 L, RDW Std Deviation 47.3 H, RDW Coeff of Malini 13.2, Plt Count 281, MPV 8.5, Immature Gran % (Auto) 0.500, Neut % (Auto) 65.7, Lymph % (Auto) 16.4 L, Lawrence % (Auto) 10.8 H, Eos % (Auto) 5.6 H, Baso % (Auto) 1.0, Absolute Neuts (auto) 2.7, Absolute Lymphs (auto) 0.67 L, Nucleated RBC % 0 05/23/21 05:50: Sodium 129 L, Potassium 4.1, Chloride 99, Carbon Dioxide 24.0, Anion Gap 6, BUN 12, Creatinine 0.37 L, Estim Creat Clear Calc 40.83, Est GFR (MDRD) Af Amer 218, Est GFR (MDRD) Non-Af 180, BUN/Creatinine Ratio 32.3 H, Glucose 96, Calcium 9.1 Microbiology: Microbiology 05/21/21 15:00 Wound - Leg, Left Gram Stain - Final 05/21/21 15:00 Wound - Leg, Left Wound Culture - Preliminary Gram negative faith Staphylococcus species 05/22/21 14:50 Mucosa - Nasopharyngeal SARS-CoV-2 Antigen (Rapid) - Final 05/20/21 11:50 Blood Culture (Wb) - Left Wrist Blood Culture - Preliminary No growth in 48 hours. 05/20/21 12:05 Blood Culture (Wb) - Right Hand Blood Culture - Preliminary No growth in 48 hours. D/C Instructions Please Follow Up With: Tony Ying MD Meaningful Use Info Meaningful Use Diagnoses (Choose all that apply): None applicable Discharge Plan Admission Admit Date/Time: 05/20/21 14:24 Primary Reason for Your Visit: Hyponatremia, LEFT leg infection Attending Provider: Deshaun Cota Primary Care Provider: Amber Sanders Consulting Providers: Vandana Martinez ; Shyann Olivares ; Matt Casillas Instructions Patient Instructions: Hyponatremia Dc Additional Instructions / Restrictions: To continue with daily dressing changes. To wash foot and leg with soap and water bilateral. Then apply Santyl to posterior left leg ulceration covered with dry sterile dressing including 4 x 4's ABDs Kerlix. To apply ABD Kerlix to right lower extremity to offload and support the preulcerative area to posterior calf. To elevate and offload bilateral lower extremities much as possible. Recommend pillow underneath the lower calf in order to float ulcerative and preulcerative areas on upper posterior calf. Follow-up in wound center every week with Dr. Olivares. Discharge Orders/Prescriptions Prescriptions: New Santyl 250 unit/gram Ointment 1 applic topical DAILY Qty: 0 RF: 0 sennosides-docusate sodium [Stool Softener-Stimulant Laxat] 8.6-50 mg Tablet 2 tab PO BID Qty: 0 RF: 0 miconazole nitrate 2 % Cream 1 applic vaginal QHS Qty: 0 RF: 0 ferrous sulfate [FeroSul] 325 mg (65 mg iron) Tablet 325 mg PO QODAY@1200 Qty: 0 RF: 0 nystatin [Nyamyc] 100,000 unit/gram Powder 1 applic topical BID Qty: 0 RF: 0 menthol-zinc oxide [Calmoseptine] 0.44-20.6 % Ointment 1 applic topical BID Qty: 0 RF: 0 Pj (with collagen) 7-7-1.5 gram Powder In Packet 1 packet PO BIDCM Qty: 0 RF: 0 amoxicillin-pot clavulanate [Augmentin] 875-125 mg tablet 1 tab PO BID Qty: 8 RF: 0 Continued iiupmjjj-tzs-zpjy-FA-lutein 1 EACH tablet 1 tab PO DAILY RF: 0 carvedilol 25 MG tablet 25 mg PO BID RF: 0 fluticasone propion-salmeterol 1 PUFF inhaler 2 puff inhalation BID RF: 0 magnesium oxide 400 mg (241.3 mg magnesium) tablet 400 mg PO DAILY RF: 0 Xarelto 20 mg tablet 20 mg PO DAILY RF: 0 Spiriva Respimat 2.5 mcg/actuation mist 2 inh INHALATION BID RF: 0 guaifenesin 1,200 MG tablet 1,200 mg PO BID Qty: 14 RF: 0 albuterol sulfate 90 mcg/actuation HFA aerosol inhaler 1 - 2 puff INHALATION Q4H PRN PRN (Reason: Asthma) Qty: 18 RF: 6 Discontinued ferrous sulfate 325 MG tablet 325 mg PO BID Qty: 60 RF: 0 potassium chloride 10 mEq capsule, extended release 40 meq PO BID RF: 0 Referrals / Follow Up: Wound Health [Outside] (Previously established with Jovanna Partida. Noted wounds to leg and butt.) Amber Sanders MD [Primary Care Provider] - Disposition Disposition (needs filled in before D/C Order can be placed): Assisted Facility Charges/Coding Visit Charges Inpatient E&M: 82411 Disch Hosp
== END 2021-05-23 15:31 | disposition skilled nursing facility (03) | DRG 571 ==
LOC: ED 14:26 → PCU 14:36
PROVIDERS: Internal Medicine Nephrology; Podiatrist Foot & Ankle Surgery; Admitting Provider Internal Medicine; Emergency Provider Emergency Medicine; PCP Internal Medicine; Visit Provider Internal Medicine
DX: L97.222 Non-pressure chronic ulcer of left calf with fat layer exposed (principal); E22.2 Syndrome of inappropriate secretion of antidiuretic hormone; I42.8 Other cardiomyopathies; L03.115 Cellulitis of right lower limb; L03.116 Cellulitis of left lower limb; I50.22 Chronic systolic (congestive) heart failure; I48.20 Chronic atrial fibrillation, unspecified; J96.10 Chronic respiratory failure, unspecified whether with hypoxia or hypercapnia; I11.0 Hypertensive heart disease with heart failure; E87.5 Hyperkalemia; J44.9 Chronic obstructive pulmonary disease, unspecified; I48.0 Paroxysmal atrial fibrillation; I27.21 Secondary pulmonary arterial hypertension; L89.152 Pressure ulcer of sacral region, stage 2; L89.322 Pressure ulcer of left buttock, stage 2; L89.312 Pressure ulcer of right buttock, stage 2; M79.89 Other specified soft tissue disorders; R60.0 Localized edema; I89.0 Lymphedema, not elsewhere classified; F17.210 Nicotine dependence, cigarettes, uncomplicated; Z91.19 Patient's noncompliance with other medical treatment and regimen; Z99.81 Dependence on supplemental oxygen; Z79.01 Long term (current) use of anticoagulants; Z79.899 Other long term (current) drug therapy; Z99.3 Dependence on wheelchair; Z92.3 Personal history of irradiation; Z85.3 Personal history of malignant neoplasm of breast; Z85.118 Personal history of other malignant neoplasm of bronchus and lung
CPT/HCPCS: 36415; 80048; 83735; 83935; 84300; 85025; 87040; 87070; 87075; 87077; 87186; 87205; 87426; 87640; 87641; 93005; 94640; 97110; 97116; 97162; 97166; 97530; 97535; 97802; 99251; 99285; 99406; J7030; J7040; A4216; G0463; J0295

== ENCOUNTER 2021-05-23 15:35 | Inpatient (IN) | payer MEDICARE, OTHER, SELFPAY ==
[2021-05-20 14:57] VITALS: BMI 28.1
[2021-05-23 15:47] VITALS: BP 120/58; PULSE 90; RESP 18; TEMP 36; O2SAT 95; BMI 27.4
--- NOTE | 2021-05-23 16:38 | NURSING ---
Resident here and states she doesnt want to stay here if she has to be quarantined. fibreglass lay up worker, Ambika, in to talk with her and she tells Ambika she will stay for 2 days. Also asking if she can take herself to bathroom. RESPIRATORY PRACTITIONER explained that you are to call if you have to use bathroom.
[2021-05-23] MEDS: Carvedilol 25 MG Tablet PO (18:02)
[2021-05-23] MEDS: Rivaroxaban 20 MG Tablet PO (18:03)
[2021-05-23] MEDS: Amox/Clavulanate 875 MG Tablet PO (18:03)
[2021-05-23] MEDS: guaiFENesin 1,200 MG Tablet 1200 MG PO (18:03)
[2021-05-23] MEDS: Fluticasone/Salmeterol 232-14 Inhaler 1 PUFF INHALATION (18:05)
[2021-05-23] MEDS: Senna/Docusate Sodium 1 Tablet 2 TABLET PO (18:05)
--- NOTE | 2021-05-23 20:04 | HP.PCM_ITS ---
HPI - General General Date of Admission: 05/23/21 HPI Narrative 05/20/2021 EUNICE BRAVO, is a 75 Female who presents to Emergency Department with wound. Buttock wounds, pain, ongoing for weeks. Sits in wheelchair, pressure on buttocks. Recent hospitalization for hyponatremia. Needs rehabilitation. Antibiotics given for right lower extremity cellulitis. Sodium 121. 05/20/2021 Admit to Hospital. / normal saline IV, Consult Nephrology, for hyponatremia secondary to SIADH. Panculture, Unasyn IV, consult plastic surgery for right lower extremity cellulitis, left lower extremity ulcer. Hold Torsemide. 05/21/2021 Dr. Olivares debrided left lower extremity ulcer. Sodium improved from 121 to 125. MRSA negative, blood culture pending, continue IV Unasyn for right lower extremity cellulitis. PT/OT for SNF. 05/22/2021 Dr. Ying SIAART secondary to lung cancer. Sodium improved to 129. 05/22/2021 Fluid restriction for SIADH. 05/22/2021 Dr. Casillas to consider wound closure as outpatient. 05/23/2021 Admit to TCU with debility, here for rehabilitation, strengthening, prior to dischare home with . [facility] Medical History Acute on chronic systolic (congestive) heart failure Bilateral leg ulcer COPD (chronic obstructive pulmonary disease) Debility Dependence on supplemental oxygen Dependent edema Essential (primary) hypertension History of breast cancer Hyponatremia Immobility Irregular heart beat Leg edema, left Leg edema, right Leg swelling Lumbar disc disease Lung mass New onset A. fib with RVR Nicotine dependence Non-ischemic cardiomyopathy Non-rheumatic tricuspid valve insufficiency Nonrheumatic mitral (valve) insufficiency Osteoporosis Paroxysmal atrial fibrillation Secondary pulmonary arterial hypertension Smoker Suspected chronic obstructive pulmonary disease based on initial evaluation Thrush, oral Tobacco abuse Tobacco abuse counseling Wound cellulitis Home Medications uuehwlzj-yvs-edvz-FA-lutein 1 tab PO DAILY 10/05/19 [History Last Taken 05/11/21] albuterol sulfate 90 mcg/actuation aerosol inhaler 1 - 2 puff INHALATION Q4H PRN PRN #18 g 04/29/20 [Rx Last Taken 07/12/20] carvedilol 25 mg PO BID 07/12/20 [History Last Taken 05/11/21] fluticasone propion-salmeterol 2 puff INHALATION BID 07/12/20 [History Last Taken 05/11/21] Spiriva Respimat 2 inh INHALATION BID 05/12/21 [History Last Taken 05/11/21] Xarelto 20 mg PO DAILY 05/12/21 [History Last Taken 05/11/21] magnesium oxide 400 mg PO DAILY 05/12/21 [History Last Taken 05/11/21] amoxicillin-pot clavulanate [Augmentin] 1 tab PO BID 05/23/21 [History Last Taken 05/23/21 1034] jurrm-sesg-RhBHG-xpvvsk-jr-pgx [Pj (with collagen)] 1 packet PO BIDCM 05/23/21 [History Last Taken Unknown] collagenase clostridium histo. [Santyl] 1 applic TOPICAL DAILY 05/23/21 [History Last Taken Unknown] ferrous sulfate [FeroSul] 325 mg PO QODAY@1200 05/23/21 [History Last Taken Unknown] guaifenesin 1,200 mg PO BID 05/23/21 [History Last Taken Unknown] menthol-zinc oxide [Calmoseptine] 1 applic TOPICAL BID 05/23/21 [History Last Taken Unknown] miconazole nitrate 1 applic VAGINAL QHS 05/23/21 [History Last Taken Unknown] nystatin [Nyamyc] 1 applic TOPICAL BID 05/23/21 [History Last Taken Unknown] sennosides-docusate sodium [Stool Softener-Stimulant Laxat] 2 tab PO BID 05/23/21 [History Last Taken Unknown] Allergy/AdvReac Type Severity Reaction Status Date / Time albuterol sulfate Allergy Swelling Verified 05/20/21 11:57 [From Combivent] ipratropium bromide Allergy Swelling Verified 05/20/21 11:57 [From Combivent] metoprolol Allergy Laryngospas Verified 05/20/21 11:57 ms Sulfa (Sulfonamide Allergy Rash Verified 05/20/21 11:57 Antibiotics) beclomethasone [From Qvar] AdvReac COUGHING Verified 05/20/21 11:57 benzalkonium chloride AdvReac Rash Verified 05/20/21 11:57 [From Merthiolate (benzalkonium)] codeine AdvReac Chest Verified 05/20/21 11:57 tightness doxycycline AdvReac Abd Verified 05/20/21 11:57 cramps/diarrhea formoterol fumarate AdvReac PT UNSURE Verified 05/20/21 11:57 [From Dulera] OF REACTION hydrochlorothiazide AdvReac PT UNSURE Verified 05/20/21 11:57 OF REACTION ibuprofen [From Advil] AdvReac PT UNSURE Verified 05/20/21 11:57 OF REACTION iodine AdvReac Itching Verified 05/20/21 11:57 merbromin AdvReac PT UNSURE Verified 05/20/21 11:57 OF REACTION mometasone furoate AdvReac PT UNSURE Verified 05/20/21 11:57 [From Dulera] OF REACTION oseltamivir [From Tamiflu] AdvReac uterine Verified 05/20/21 11:57 pain prednisone AdvReac Abd Verified 05/20/21 11:57 cramps/diarrhea PLASTIC TAPE Allergy Rash Uncoded 05/20/21 11:57 Family History Father Emphysema of lung Sister Cancer uterine cancer Surgical History History of left heart catheterization (11/09/19) History of left mastectomy History of lumpectomy of right breast History of tubal ligation polyp removal S/P lumpectomy, right breast Social History (Updated 05/23/21 @ 20:[address] Andrea Rosenthal MD) household members: spouse Smoking Status: Current every day smoker tobacco type: cigarettes second hand exposure: Yes alcohol intake: current alcohol intake frequency: 0-2 drinks per day Alcohol type: wine substance use type: does not use caffeine: No what type of physical activity do you participate in: none seatbelt use: always do you feel safe at home: Yes ROS Constitutional Constitutional: Denies chills, fever(s) or weight gain ENT HEENT: Denies headache(s), nasal congestion or nasal discharge Cardiovascular Cardiovascular: Denies chest pain or palpitations Respiratory/Chest Respiratory/Chest: Denies cough, excessive phlegm production or shortness of breath with exertion Gastrointestinal Gastrointestinal: Denies abdominal pain, nausea or vomiting Genitourinary Genitourinary: Denies dysuria Musculoskeletal Musculoskeletal: Denies joint pain or joint swelling Integumentary Integumentary: Denies rash or wounds Neurologic Neurologic: Denies focal weakness, numbness or tingling Psychiatric Psychiatric: Reports auditory hallucinations; Denies anxiety, depression, homicidal ideation or suicidal ideation Vital Signs Vital Signs Vital Signs: 05/23/21 15:47 Temperature 96.8 F L Temperature Source Temporal Pulse Rate 90 Respiratory Rate 18 Blood Pressure 120/58 L Blood Pressure Mean 78 Blood Pressure Source Monitor Blood Pressure Position Sitting Blood Pressure Location Right Arm Pulse Ox 95 Oxygen Delivery Method Room Air Weight Weight: 70.307 kg Body Mass Index (BMI) 27.4 Physical Exam Const alert and oriented x3 General Appearance: cooperative HEENT normocephalic Eyes PERRL and EOMs intact bilaterally Neck supple, no JVD and no carotid bruits Resp normal respiratory effort, normal air movement and clear to auscultation bilaterally Cardio regular rate and regular rhythm GI normal to inspection, nondistended, normoactive bowel sounds, non-tender and non-distended Extremity normal capillary refill Extremity Narrative: Bilateral lower extremities dressed. General Extremity: Negative for edema Skin no rashes or lesions noted General Skin Exam: no breakdown Psych affect normal Appearance: appropriate Assessment & Plan Assessment/Plan (1) Debility: (2) Ulcer of left lower extremity with fat layer exposed: (3) Cellulitis of right lower extremity: (4) Hyponatremia: (5) SIADH (syndrome of inappropriate ADH production): (6) Non-small cell lung cancer: (7) Chronic obstructive pulmonary disease: (8) Chronic systolic congestive heart failure: (9) Atrial fibrillation: (10) Iron deficiency anemia: (11) Hypomagnesemia: (12) Hypokalemia: PLAN: 75 year old female with below past medical history hospitalized for right lower extremity cellulitis, left lower extremity ulcer, complicated by hyponatremia secondary to 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 * Debility - PT/OT. * Pain - Tylenol 1000mg Q6H prn pain (1-10). * Bowel - Senna/colace 2 tablets twice daily, Dulcolax 10mg daily prn. * Adult immunization - Administer prevnar 13, pneumovax 23, fluzone, covid19 vaccine as appropriate. * DVT prophylaxis - Not necessary, already anticoagulated. * COPD - Advair 1 puff Q12H, Incruse 1 puff daily, Albuterol 1-2 puff Q4H PRN. * Right lower extremity cellulitis - Augmentin 875MG twice daily x 7 days. * Atrial fibrillation - Coreg 25mg twice daily, Xarelto 20mg daily. * Lower lower extremity ulcer - Santyl topical daily. * Iron deficiency anemia - Ferrous sulfate 325mg every other day. * Congestion - Mucinex 1200mg twice daily thru 05/28/2021. * Hypomagnesemia - Magnesium 128mg daily. * Skin irritation - Calmoseptine topical twice daily, * Yeast vaginitis - Miconazole 1 application vaginally thru 05/27/2021. * Nutrition - MVI daily, Pj 1 packet twice daily. * Tinea Corporis - Nystatin powder topical twice daily.
[2021-05-23] MEDS: Menthol/Lanolin/Calamine/Znox 113 GM Tube 1 APPLIC TOPICAL (21:58)
[2021-05-23] MEDS: Nystatin Powder 15gm Bottle 1 APPLIC TOPICAL (21:59)
[2021-05-23] MEDS: Miconazole-7 Nitrate Cream 1 APPLIC VAGINAL (22:07)
[2021-05-23 22:47] VITALS: PULSE 88
[2021-05-24 05:36] LABS: Absolute Lymphocyte Count 0.69 X10^3/uL (0.83-4.51); Basophil# 0.05 X10^3/uL; Basophil% 1.1 % (0-1); Eosinophil# 0.35 X10^3/uL; Eosinophils% 7.8 % (0-5); Hematocrit 36.1 % (37-47); Hemoglobin 11.5 g/dL (12.0-15.0); Lymphocyte # 0.69 X10^3/ul (0.83-4.51); Lymphocyte % 15.4 % (19-41); Mean Corp Hgb Conc 31.9 g/dL (32-36); Mean Corpuscular Hgb 31.1 pg (27.0-32.0); Mean Corpuscular Volume 97.6 fL (81-99); Mean Platelet Vol. 8.4 fl (6.2-12.0); Monocyte# 0.41 X10^3/uL; Monocyte% 9.2 % (0-10); NRBC Flagged by Analyzer 0 % (0-5); Neutrophil # 2.95 X10^3/uL (2.7-7.7); Neutrophil % 66.1 % (47-70); Platelet Count 287 K/mm3 (150-450); RBC Distribution Width CV 13.3 % (11.6-14.6); RBC Distribution Width SD 47.8 fl (35.1-43.9); White Blood Count 4.5 K/mm3 (4.4-11.0)
[2021-05-24 05:54] LABS: Anion Gap 4 (5-15); BUN 15 mg/dL (7-18); BUN/Creat Ratio 33.8 RATIO (10-20); Calcium,Total 9.1 mg/dL (8.5-10.1); Chloride 100 mmol/L (98-107); Creatinine, Serum 0.44 mg/dL (0.55-1.02); EST Glomerular Filtration Rate 147 mL/min (>60); Est Glom Filt Rate - Afr Amer 178 mL/min (>60); Estimated Creatinine Clearance 40.83 ml/min; Glucose 94 mg/dL (74-106); Potassium 4.2 mmol/L (3.5-5.1); Sodium Level 131 mmol/L (136-145)
[2021-05-24 06:34] VITALS: BP 93/61; PULSE 78; RESP 18; O2SAT 98
[2021-05-24] MEDS: Menthol/Lanolin/Calamine/Znox 113 GM Tube 1 APPLIC TOPICAL ×2 (06:38→19:45)
[2021-05-24] MEDS: Nystatin Powder 15gm Bottle 1 APPLIC TOPICAL ×2 (06:39→19:44)
[2021-05-24] MEDS: guaiFENesin 1,200 MG Tablet 1200 MG PO ×2 (06:39→16:36)
[2021-05-24] MEDS: Umeclidinium Bromide Inhaler 1 PUFF INHALATION (06:39)
[2021-05-24] MEDS: Fluticasone/Salmeterol 232-14 Inhaler 1 PUFF INHALATION ×2 (06:39→16:36)
[2021-05-24] MEDS: Carvedilol 25 MG Tablet PO ×2 (06:39→16:37)
[2021-05-24] MEDS: Senna/Docusate Sodium 1 Tablet 2 TABLET PO (06:40)
[2021-05-24] MEDS: Magnesium Chloride 64 MG Delay Rel.Tablet 128 MG PO (08:41)
[2021-05-24] MEDS: Multivitamins,Ther W-Minerals Tablet 1 TABLET PO (08:41)
[2021-05-24] MEDS: Amox/Clavulanate 875 MG Tablet PO ×2 (08:41→16:36)
[2021-05-24 10:15] LABS: Bedside Glucose 97 mg/dL (70-110)
[2021-05-24] MEDS: Acetaminophen 500 MG Tablet 1000 MG PO (11:14)
[2021-05-24] MEDS: Ferrous Sulfate 325 MG Tablet PO (11:53)
--- NOTE | 2021-05-24 15:18 | NURSING ---
skin photo: bilateral lower legs
--- NOTE | 2021-05-24 15:19 | NURSING ---
wound photo: left posterior lower leg
--- NOTE | 2021-05-24 15:21 | CASEMGMT ---
Social Work Met with pt and spouse for initial assessment. SW discussed Code status with pt and assisted pt in completing MOLST form. Pt would like to be full code with intubation. MOLST form communicated to physician and placed on pt chart. Physician requesting Palliative Medicine. Referral faxed to [facility]. SW explained Medicare benefit and that first 20 days are covered at 100% and starting on day 21 (06/12) pt will be responsible for copay. Pt plans to return home with her spouse at time of discharge. REUBEN will follow for d/c planning and support. RADHA Webber
[2021-05-24] MEDS: Tuberculin,Purif.prot.deriv. 50 TU/ML Vial 0.1 ML ID (15:31)
[2021-05-24] MEDS: Collagenase 30gm Tube 1 APPLIC TOPICAL (15:36)
[2021-05-24 15:40] VITALS: O2SAT 94
[2021-05-24 15:44] VITALS: BP 107/57; PULSE 79; RESP 17; TEMP 37; O2SAT 94
[2021-05-24] MEDS: Rivaroxaban 20 MG Tablet PO (16:36)
--- NOTE | 2021-05-24 16:47 | PHA.CONS_ITS ---
Progress Note - Pharmacy Subjective: TCU Admission Objective: Allergies albuterol sulfate [From Combivent] Allergy (Verified 05/20/21 11:57) Swelling ipratropium bromide [From Combivent] Allergy (Verified 05/20/21 11:57) Swelling metoprolol Allergy (Verified 05/20/21 11:57) Laryngospasms Sulfa (Sulfonamide Antibiotics) Allergy (Verified 05/20/21 11:57) Rash beclomethasone [From Qvar] Adverse Reaction (Verified 05/20/21 11:57) COUGHING benzalkonium chloride [From Merthiolate (benzalkonium)] Adverse Reaction (Verified 05/20/21 11:57) Rash codeine Adverse Reaction (Verified 05/20/21 11:57) Chest tightness chest hurts doxycycline Adverse Reaction (Verified 05/20/21 11:57) Abd cramps/diarrhea formoterol fumarate [From Dulera] Adverse Reaction (Verified 05/20/21 11:57) PT UNSURE OF REACTION hydrochlorothiazide Adverse Reaction (Verified 05/20/21 11:57) PT UNSURE OF REACTION ibuprofen [From Advil] Adverse Reaction (Verified 05/20/21 11:57) PT UNSURE OF REACTION iodine Adverse Reaction (Verified 05/20/21 11:57) Itching merbromin Adverse Reaction (Verified 05/20/21 11:57) PT UNSURE OF REACTION mometasone furoate [From Dulera] Adverse Reaction (Verified 05/20/21 11:57) PT UNSURE OF REACTION oseltamivir [From Tamiflu] Adverse Reaction (Verified 05/20/21 11:57) uterine pain prednisone Adverse Reaction (Verified 05/20/21 11:57) Abd cramps/diarrhea PLASTIC TAPE Allergy (Uncoded 05/20/21 11:57) Rash Current Medications Generic Name Dose Route Start Last Admin Trade Name Freq PRN Reason Stop Dose Admin Acetaminophen 1,000 mg 05/23/21 20:22 05/24/21 11:14 Acetaminophen 500 Mg Tablet PO 1,000 mg Q6H PRN PRN Administration Pain Score 1-10 Albuterol Sulfate 1 - 2 puff 05/23/21 15:55 Albuterol Sulfate 8 Gm Inhaler (60 Puffs) INHALATION Q4H PRN PRN Asthma Amoxicillin/Clavulanate Potassium 875 mg 05/23/21 17:00 05/24/21 16:36 Amox/Clavulanate 875 Mg Tablet PO 05/30/21 17:01 875 mg BIDCM [facility] Administration Bisacodyl 10 mg 05/23/21 20:22 Bisacodyl 5 Mg Tablet PO DAILY PRN CONSTIPATION Calamine/Phenol 1 applic 05/23/21 22:00 05/24/21 06:38 Menthol/Lanolin/Calamine/Znox 113 Gm Tube TOPICAL 1 applic [facility] Administration Protocol Carvedilol 25 mg 05/23/21 18:00 05/24/21 16:37 Carvedilol 25 Mg Tablet PO 25 mg BID NIKKI Administration Collagenase 1 applic 05/24/21 06:00 05/24/21 15:36 Collagenase 30gm Tube TOPICAL 1 applic DAILY [facility] Administration Protocol Ferrous Sulfate 325 mg 05/24/21 12:00 05/24/21 11:53 Ferrous Sulfate 325 Mg Tablet PO 325 mg QODAY@1200 [facility] Administration Guaifenesin 1,200 mg 05/23/21 18:00 05/24/21 16:36 Guaifenesin 1,200 Mg Tablet PO 05/28/21 18:01 1,200 mg BID NIKKI Administration Magnesium Chloride 128 mg 05/24/21 08:00 05/24/21 08:41 Magnesium Chloride 64 Mg Delay Rel.Tablet PO 128 mg DAILYCM [facility] Administration Miconazole Nitrate 1 applic 05/23/21 22:00 05/23/21 22:07 Miconazole-7 Nitrate Cream VAGINAL 05/27/21 22:01 1 applic QHS [facility] Administration Multivitamins/Minerals 1 tablet 05/24/21 08:00 05/24/21 08:41 Multivitamins,Ther W-Minerals Tablet PO 1 tablet BREAKFAST [facility] Administration Nutritional Formula 1 packet 05/23/21 17:00 05/24/21 16:36 Nutritional Supplement (Pj) Packet PO 1 packet BIDCM [facility] Administration Nystatin 1 applic 05/23/21 22:00 05/24/21 06:39 Nystatin Powder 15gm Bottle TOPICAL 1 appful [facility] Administration Protocol Rivaroxaban 20 mg 05/23/21 17:00 05/24/21 16:36 Rivaroxaban 20 Mg Tablet PO 20 mg DINNER [facility] Administration Fluticasone/Salmeterol 1 puff 05/23/21 18:00 05/24/21 16:36 Fluticasone/Salmeterol 232-14 Inhaler INHALATION 1 puff Q12 NIKKI Administration Senna/Docusate Sodium 2 tablet 05/23/21 18:00 05/24/21 16:42 Senna/Docusate Sodium 1 Tablet PO Not Given BID NIKKI Tuberculin PPD 0.1 ml 05/31/21 10:00 Tuberculin,Purif.Prot.Deriv. 50 Tu/Ml Vial ID 05/31/21 10:01 X1 ONE Umeclidinium [place] 1 puff 05/24/21 06:00 05/24/21 06:39 Umeclidinium [place] Inhaler INHALATION 1 puff DAILY NIKKI Administration Problem List (Last Updated 05/23/21 @ 22:[address] Matt Casillas MD) Ulcer of left lower extremity with fat layer exposed (Chronic) Hypokalemia (Acute) Hypomagnesemia (Acute) Iron deficiency anemia (Acute) Atrial fibrillation (Acute) Chronic systolic congestive heart failure (Chronic) Chronic obstructive pulmonary disease (Chronic) SIADH (syndrome of inappropriate ADH production) (Acute) Cellulitis of right lower extremity (Acute) Debility (Acute) Non-small cell lung cancer (Chronic) Hyponatremia (Acute) Vital Signs Temp Pulse Resp BP Pulse Ox 98.6 F 79 17 107/57 L 94 05/24/21 15:44 05/24/21 15:44 05/24/21 15:44 05/24/21 15:44 05/24/21 15:44 Oxygen Delivery Method Room Air Weight: 70.307 kg Body Mass Index (BMI) 27.4 Sodium 131 mmol/L (136-145) L 05/24/21 05:10 Potassium 4.2 mmol/L (3.5-5.1) 05/24/21 05:10 Chloride 100 mmol/L (98-107) 05/24/21 05:10 Carbon Dioxide 27.0 mmol/L (21.0-32.0) 05/24/21 05:10 Anion Gap 4 (5-15) L 05/24/21 05:10 BUN 15 mg/dL (7-18) 05/24/21 05:10 Creatinine 0.44 mg/dL (0.55-1.02) L 05/24/21 05:10 Est GFR (MDRD) Af Amer 178 mL/min (>60) 05/24/21 05:10 Est GFR (MDRD) Non-Af 147 mL/min (>60) 05/24/21 05:10 BUN/Creatinine Ratio 33.8 RATIO (10-20) H 05/24/21 05:10 Glucose 94 mg/dL (74-106) 05/24/21 05:10 Assessment/Plan: 1. Pain: acetaminophen 1000mg PO Q6H PRN pain 1-10. Please continue to monitor for increased pain and PRN usage. 2. Right lower extremity cellulitis: Augmentin 875mg PO BIDCM thru 05/30/21. Please continue to monitor for S/S of infection, diarrhea and renal function. 3. Atrial fibrillation: carvedilol 25mg PO BID and rivaroxaban 20mg PO dinner. Please continue to monitor HR (last 79), BP (last 107/57), S/S of bleeding and hemoglobin (last 11.5g/dL). 4. Iron deficiency anemia: ferrous sulfate 325mg PO QODAY. Please continue to monitor hemoglobin, constipation and for dark stools. 5. COPD: Advair 232/14 1puff Q12H, Incruse 1puff daily, and albuterol inhaler 1- 2puff Q4H PRN asthma. Please continue to monitor for PRN usage, thrush and HR. Please rinse mouth with water and spit out following Advair administration to prevent thrush. Thanks. 6. Congestion: guaifenesin 1200mg PO BID thru 05/28/21. Please continue to monitor for congestion. 7. Hypomagnesemia: magnesium chloride 128mg PO DAILYCM. Please continue to monitor magnesium levels (last 1.9mg/dL). 8. Yeast vaginitis: miconazole-7 nitrate cream 1 application vaginal QHS thru 05/27/21. Please continue to monitor. 9. Nutrition: multivitamin with minerals 1T PO breakfast. Please continue to monitor. Psychotropic Medications: None Unnecessary Medications: None Bowel Regimen: senna/docusate 2T PO BID and bisacodyl 10mg PO daily PRN constipation. Please continue to monitor for constipation and PRN usage. Date of Note:: 05/24/21
[2021-05-24] MEDS: Miconazole-7 Nitrate Cream 1 APPLIC VAGINAL (19:33)
[2021-05-25 06:26] LABS: Bedside Glucose 93 mg/dL (70-110)
[2021-05-25 06:27] VITALS: BP 106/49; PULSE 86; RESP 14; TEMP 36.2; O2SAT 99
[2021-05-25] MEDS: guaiFENesin 1,200 MG Tablet 1200 MG PO ×2 (06:32→17:03)
[2021-05-25] MEDS: Menthol/Lanolin/Calamine/Znox 113 GM Tube 1 APPLIC TOPICAL ×2 (06:32→21:46)
[2021-05-25] MEDS: Nystatin Powder 15gm Bottle 1 APPLIC TOPICAL ×2 (06:32→21:46)
[2021-05-25] MEDS: Miconazole-7 Nitrate Cream 1 APPLIC VAGINAL ×2 (06:33→21:46)
[2021-05-25] MEDS: Umeclidinium Bromide Inhaler 1 PUFF INHALATION (06:40)
[2021-05-25] MEDS: Fluticasone/Salmeterol 232-14 Inhaler 1 PUFF INHALATION ×2 (06:43→17:03)
[2021-05-25 06:45] VITALS: BP 95/42; PULSE 69
[2021-05-25 08:51] VITALS: BP 103/43; PULSE 85
[2021-05-25] MEDS: Multivitamins,Ther W-Minerals Tablet 1 TABLET PO (08:51)
[2021-05-25] MEDS: Amox/Clavulanate 875 MG Tablet PO ×2 (08:51→17:08)
[2021-05-25] MEDS: Magnesium Chloride 64 MG Delay Rel.Tablet 128 MG PO (08:51)
--- NOTE | 2021-05-25 10:08 | CON.PCM.PA_ITS ---
Assessment & Plan Assessment/Plan (1) Debility: (2) Non-small cell lung cancer: QUALIFIERS: Laterality: left Qualified Code(s): C34.92 - Malignant neoplasm of unspecified part of left bronchus or lung (3) Chronic back pain greater than 3 months duration: (4) Pain of left lower extremity: (5) Chronic systolic congestive heart failure: (6) Lymphedema of both lower extremities: (7) Smoker: (8) Ulcer of left lower extremity with fat layer exposed: (9) Lymphangitis of lower extremity: (10) Hypokalemia: (11) Hypomagnesemia: (12) Iron deficiency anemia: QUALIFIERS: Iron deficiency anemia type: unspecified iron deficiency Qualified Code(s): D50.9 - Iron deficiency anemia, unspecified (13) Atrial fibrillation: QUALIFIERS: Atrial fibrillation type: unspecified chronic Qualified Code(s): I48.20 - Chronic atrial fibrillation, unspecified (14) Chronic obstructive pulmonary disease: QUALIFIERS: COPD type: unspecified COPD Qualified Code(s): J44.9 - Chronic obstructive pulmonary disease, unspecified (15) SIADH (syndrome of inappropriate ADH production): (16) Chronic anticoagulation: (17) Tobacco abuse: (18) Chronic respiratory failure with hypoxia: (19) Wound of sacral region: QUALIFIERS: Encounter type: subsequent encounter Qualified Code(s): S31.000D - Unspecified open wound of lower back and pelvis without penetration into retroperitoneum, subsequent encounter (20) Pressure sore on buttocks: QUALIFIERS: Laterality: unspecified laterality Pressure injury stage: unspecified pressure injury stage Qualified Code(s): L89.309 - Pressure ulcer of unspecified buttock, unspecified stage (21) Non-ischemic cardiomyopathy: (22) Secondary pulmonary arterial hypertension: (23) Non-rheumatic tricuspid valve insufficiency: (24) Nonrheumatic mitral (valve) insufficiency: (25) Essential (primary) hypertension: (26) History of breast cancer: (27) Nicotine dependence: QUALIFIERS: Nicotine product type: cigarettes Substance use status: uncomplicated Qualified Code(s): F17.210 - Nicotine dependence, cigarettes, uncomplicated PLAN: 75-year-old female with NSCLC, wounds, and generalized weakness, seen today for palliative care consultation due to her cancer, shortness of breath, and significant decrease in ability to perform ADLs. She has also had several presentations to the ED this year. Patient is a FULL code. 1. Weakness/debility: Currently receiving therapy in the transitional care unit. Patient wishes to return home with her spouse when discharged. She would like to think about palliative care. Explained we do not provide personal care, it seems that is what she is mainly looking for. We would be happy to be involved and augment her current plan of care. 2. NSCLC: She has possibly been lost to follow-up. Recommend reestablishing if she wants to pursue treatment. She will likely need repeat scans and diagnostic work-up to check for metastases. 3. Left lower extremity pain, chronic back pain: Controlled with Tylenol. Make adjustments as indicated, no recommendations at this time. 4. Chronic systolic CHF/chronic lymphedema/current smoker/SIADH/chronic anticoagulation secondary to A. fib/chronic hypoxemic respiratory failure/wounds/nonischemic cardiomyopathy/pulmonary hypertension/history of breast cancer, HTN: Complicates overall care, management, recovery, and prognosis. Defer management to primary team Thank you for the opportunity to participate in this patient's care, please do not hesitate to contact [facility] Palliative with any further questions or concerns. Palliative direct line is [phone]. We will follow up after discharge and will discuss palliative services further at that time. Greater than 50% of F2F visit dedicated to education and counseling of palliative care services, medications, comorbid conditions and potential assistance with management, and plan of care moving forward. Start time: 1045 End time: 1140 HPI Consult Data Date of Consult: 05/25/21 HPI Narrative HPI Narrative: EUNICE BRAVO, is a 75 F with PMH as below, history of non- small cell lung cancer left upper lobe, who was originally admitted to [facility] 05/12/2021 with wounds on her buttocks and right lower extremity, had drainage so spouse brought her to the ED. Patient has a history of chronic lymphedema and was accidentally stuck in the left posterior calf by part of a wheelchair that created a wound. She had not previously been evaluated or treated for this wound, which is now infected. Patient also has chronic hyponatremia and sodium was 118 on admit. She apparently hangs out around 126. She was eventually stabilized and discharged home 05/14, but then returned to the ED 05/20 with worsening wounds and weakness. Nephrology was consulted. Patient was maintained on a 1500 mL fluid restriction per day. Her sodium improved to [address] Casillas was consulted for outpatient wound debridement and closure after wound infection had been cleared. The wound was debrided 05/[address] Olivares. Patient was discharged on a 7-day course of Augmentin. As far as her cancer goes, she completed radiotherapy around 2 years ago and follows with [facility] oncology. She had radiation about 3 years ago. She still smokes about a pack per day of cigarettes. She had seen Dr. Campos last fall, but never followed up? He apparently sent her to a specialist to evaluate for surgical consult, however she was not a candidate. Also follows with Dr. Jovel in the past. She really has not followed up with Dr. Cazares in the last couple of years either, states there was no reason to. Patient is on Xarelto for chronic A. fib. Again, she was eventually stabilized and transferred to TCU for further rehab. As far as pain control, patient currently has Rx for Tylenol 1 g every 6 hours as needed for pain. This has been effective. When asked how high her pain ~her leg typically gets, she states 4 out of 10. Tylenol brings it down to a 1 or 2. She does have chronic back pain as well and takes Tylenol at home for that. Her back pain is usually between a 6 and 8 out of 10. She has documented a llergies to codeine, ibuprofen, prednisone, and several other medications. Patient has been unable to care for herself at home, spouse doing much of the work. Patient denies any current nausea or vomiting. No abdominal pain. Her left leg pain currently is 3 out of 10. No radiation. No numbness or tingling. No shortness of breath or chest discomfort. Denies headaches. No dizziness or syn cope. She is ambulating with use of walker and 1 assist. No urinary complaints. No constipation or diarrhea. [facility] Medical History Acute on chronic systolic (congestive) heart failure Bilateral leg ulcer COPD (chronic obstructive pulmonary disease) Debility Dependence on supplemental oxygen Dependent edema Essential (primary) hypertension History of breast cancer Hyponatremia Immobility Irregular heart beat Leg edema, left Leg edema, right Leg swelling Lumbar disc disease Lung mass Lymphangitis of lower extremity Lymphedema of both lower extremities New onset A. fib with RVR Nicotine dependence Non-ischemic cardiomyopathy Non-rheumatic tricuspid valve insufficiency Nonrheumatic mitral (valve) insufficiency Osteoporosis Paroxysmal atrial fibrillation Secondary pulmonary arterial hypertension Smoker Suspected chronic obstructive pulmonary disease based on initial evaluation Thrush, oral Tobacco abuse Tobacco abuse counseling Ulcer of left lower extremity with fat layer exposed Wound cellulitis Home Medications [id number]-FA-lutein 1 tab PO DAILY 10/05/19 [History Last Taken 05/11/21] albuterol sulfate 90 mcg/actuation aerosol inhaler 1 - 2 puff INHALATION Q4H PRN PRN #18 g 04/29/20 [Rx Last Taken 07/12/20] carvedilol 25 mg PO BID 07/12/20 [History Last Taken 05/11/21] fluticasone propion-salmeterol 2 puff INHALATION BID 07/12/20 [History Last Taken 05/11/21] Spiriva Respimat 2 inh INHALATION BID 05/12/21 [History Last Taken 05/11/21] Xarelto 20 mg PO DAILY 05/12/21 [History Last Taken 05/11/21] magnesium oxide 400 mg PO DAILY 05/12/21 [History Last Taken 05/11/21] amoxicillin-pot clavulanate [Augmentin] 1 tab PO BID 05/23/21 [History Last Taken 05/23/21 1034] [id number]-fjfphg-er-ghz [Pj (with collagen)] 1 packet PO BIDCM 05/23/21 [History Last Taken Unknown] collagenase clostridium histo. [Santyl] 1 applic TOPICAL DAILY 05/23/21 [History Last Taken Unknown] ferrous sulfate [FeroSul] 325 mg PO QODAY@1200 05/23/21 [History Last Taken Unknown] guaifenesin 1,200 mg PO BID 05/23/21 [History Last Taken Unknown] menthol-zinc oxide [Calmoseptine] 1 applic TOPICAL BID 05/23/21 [History Last Taken Unknown] miconazole nitrate 1 applic VAGINAL QHS 05/23/21 [History Last Taken Unknown] nystatin [Nyamyc] 1 applic TOPICAL BID 05/23/21 [History Last Taken Unknown] sennosides-docusate sodium [Stool Softener-Stimulant Laxat] 2 tab PO BID 05/23/21 [History Last Taken Unknown] Allergy/AdvReac Type Severity Reaction Status Date / Time albuterol sulfate Allergy Swelling Verified 05/20/21 11:57 [From Combivent] ipratropium bromide Allergy Swelling Verified 05/20/21 11:57 [From Combivent] metoprolol Allergy Laryngospas Verified 05/20/21 11:57 ms Sulfa (Sulfonamide Allergy Rash Verified 05/20/21 11:57 Antibiotics) beclomethasone [From Qvar] AdvReac COUGHING Verified 05/20/21 11:57 benzalkonium chloride AdvReac Rash Verified 05/20/21 11:57 [From Merthiolate (benzalkonium)] codeine AdvReac Chest Verified 05/20/21 11:57 tightness doxycycline AdvReac Abd Verified 05/20/21 11:57 cramps/diarrhea formoterol fumarate AdvReac PT UNSURE Verified 05/20/21 11:57 [From Dulera] OF REACTION hydrochlorothiazide AdvReac PT UNSURE Verified 05/20/21 11:57 OF REACTION ibuprofen [From Advil] AdvReac PT UNSURE Verified 05/20/21 11:57 OF REACTION iodine AdvReac Itching Verified 05/20/21 11:57 merbromin AdvReac PT UNSURE Verified 05/20/21 11:57 OF REACTION mometasone furoate AdvReac PT UNSURE Verified 05/20/21 11:57 [From Dulera] OF REACTION oseltamivir [From Tamiflu] AdvReac uterine Verified 05/20/21 11:57 pain prednisone AdvReac Abd Verified 05/20/21 11:57 cramps/diarrhea PLASTIC TAPE Allergy Rash Uncoded 05/20/21 11:57 Family History Father Emphysema of lung Sister Cancer uterine cancer Surgical History History of left heart catheterization (11/09/19) History of left mastectomy History of lumpectomy of right breast History of tubal ligation polyp removal S/P lumpectomy, right breast Social History household members: spouse Smoking Status: Current every day smoker tobacco type: cigarettes second hand exposure: Yes alcohol intake: current alcohol intake frequency: 0-2 drinks per day Alcohol type: wine substance use type: does not use caffeine: No what type of physical activity do you participate in: none seatbelt use: always do you feel safe at home: Yes ROS ROS Narrative Review of systems otherwise negative from a constitutional, HEENT, respiratory, cardiovascular, GI, genitourinary, musculoskeletal, skin, neurologic, psychiatric and hematologic system unless stated above. Physical Exam Const alert, oriented x3 and no apparent distress General Appearance: cooperative HEENT normocephalic and head/scalp atraumatic Neck supple General: trachea midline Resp normal respiratory effort Effort and Inspection: able to speak in complete sentences and symmetric chest movement Auscultation: clear to auscultation bilaterally and diminished lung sounds Cardio regular rate, S1 normal heart sound and S2 normal heart sound GI normal to inspection, nondistended, normoactive bowel sounds Extremity General Extremity: edema; Negative for clubbing or cyanosis Skin Rashes: no rashes Wound Narrative: Left posterior calf wound, covered with dressing. Is somewhat saturated. Also pressure ulcer to sacral area, not observed. Sitting in chair. Neuro CN's II-XII intact bilaterally and no focal motor deficits Psych Appearance: appropriate Speech: normal speech Mood & Affect: flat affect
--- NOTE | 2021-05-25 13:24 | CON.PCM.ID_ITS ---
Assessment & Plan Assessment/Plan (1) Pain of left lower extremity: PLAN: LLE infected wound - wound cx with rare serratia, very rare MRSE. On augmentin. Given persistent inflammation, will add linezolid x1week to cover the MRSE. Has allergy to doxy and bactrim. Will follow as needed, thank you. Encouraged her and to get covid vaccine. HPI Consult Data Date of Consult: 05/25/21 HPI Narrative HPI Narrative: EUNICE BRAVO, is a 75 F who presented with altered mental status, hyponatremia, LLE wound infection. Has chronic edema. reports LLE wound started about 6 weeks after fall where she hit leg on wheelchair. Admitted twice to [facility], seen by podiatry and Dr. Casillas, discharged to TCU on augmentin for one week. Leg still red and sore. No fever. She and have not gotten covid vaccine. Full ROS performed and neg except as noted above. [facility] Medical History Acute on chronic systolic (congestive) heart failure Bilateral leg ulcer COPD (chronic obstructive pulmonary disease) Debility Dependence on supplemental oxygen Dependent edema Essential (primary) hypertension History of breast cancer Hyponatremia Immobility Irregular heart beat Leg edema, left Leg edema, right Leg swelling Lumbar disc disease Lung mass Lymphangitis of lower extremity Lymphedema of both lower extremities New onset A. fib with RVR Nicotine dependence Non-ischemic cardiomyopathy Non-rheumatic tricuspid valve insufficiency Nonrheumatic mitral (valve) insufficiency Osteoporosis Paroxysmal atrial fibrillation Secondary pulmonary arterial hypertension Smoker Suspected chronic obstructive pulmonary disease based on initial evaluation Thrush, oral Tobacco abuse Tobacco abuse counseling Ulcer of left lower extremity with fat layer exposed Wound cellulitis Home Medications gkvbfydn-xbl-ztgs-FA-lutein 1 tab PO DAILY 10/05/19 [History Last Taken 05/11/21] albuterol sulfate 90 mcg/actuation aerosol inhaler 1 - 2 puff INHALATION Q4H PRN PRN #18 g 04/29/20 [Rx Last Taken 07/12/20] carvedilol 25 mg PO BID 07/12/20 [History Last Taken 05/11/21] fluticasone propion-salmeterol 2 puff INHALATION BID 07/12/20 [History Last Taken 05/11/21] Spiriva Respimat 2 inh INHALATION BID 05/12/21 [History Last Taken 05/11/21] Xarelto 20 mg PO DAILY 05/12/21 [History Last Taken 05/11/21] magnesium oxide 400 mg PO DAILY 05/12/21 [History Last Taken 05/11/21] amoxicillin-pot clavulanate [Augmentin] 1 tab PO BID 05/23/21 [History Last Taken 05/23/21 1034] xurud-vsmu-JjZRQ-lxbztm-in-snr [Pj (with collagen)] 1 packet PO BIDCM 05/23/21 [History Last Taken Unknown] collagenase clostridium histo. [Santyl] 1 applic TOPICAL DAILY 05/23/21 [History Last Taken Unknown] ferrous sulfate [FeroSul] 325 mg PO QODAY@1200 05/23/21 [History Last Taken Unknown] guaifenesin 1,200 mg PO BID 05/23/21 [History Last Taken Unknown] menthol-zinc oxide [Calmoseptine] 1 applic TOPICAL BID 05/23/21 [History Last Taken Unknown] miconazole nitrate 1 applic VAGINAL QHS 05/23/21 [History Last Taken Unknown] nystatin [Nyamyc] 1 applic TOPICAL BID 05/23/21 [History Last Taken Unknown] sennosides-docusate sodium [Stool Softener-Stimulant Laxat] 2 tab PO BID 05/23/21 [History Last Taken Unknown] Allergy/AdvReac Type Severity Reaction Status Date / Time albuterol sulfate Allergy Swelling Verified 05/20/21 11:57 [From Combivent] ipratropium bromide Allergy Swelling Verified 05/20/21 11:57 [From Combivent] metoprolol Allergy Laryngospas Verified 05/20/21 11:57 ms Sulfa (Sulfonamide Allergy Rash Verified 05/20/21 11:57 Antibiotics) beclomethasone [From Qvar] AdvReac COUGHING Verified 05/20/21 11:57 benzalkonium chloride AdvReac Rash Verified 05/20/21 11:57 [From Merthiolate (benzalkonium)] codeine AdvReac Chest Verified 05/20/21 11:57 tightness doxycycline AdvReac Abd Verified 05/20/21 11:57 cramps/diarrhea formoterol fumarate AdvReac PT UNSURE Verified 05/20/21 11:57 [From Dulera] OF REACTION hydrochlorothiazide AdvReac PT UNSURE Verified 05/20/21 11:57 OF REACTION ibuprofen [From Advil] AdvReac PT UNSURE Verified 05/20/21 11:57 OF REACTION iodine AdvReac Itching Verified 05/20/21 11:57 merbromin AdvReac PT UNSURE Verified 05/20/21 11:57 OF REACTION mometasone furoate AdvReac PT UNSURE Verified 05/20/21 11:57 [From Dulera] OF REACTION oseltamivir [From Tamiflu] AdvReac uterine Verified 05/20/21 11:57 pain prednisone AdvReac Abd Verified 05/20/21 11:57 cramps/diarrhea PLASTIC TAPE Allergy Rash Uncoded 05/20/21 11:57 Family History Father Emphysema of lung Sister Cancer uterine cancer Surgical History History of left heart catheterization (11/09/19) History of left mastectomy History of lumpectomy of right breast History of tubal ligation polyp removal S/P lumpectomy, right breast Social History household members: spouse Smoking Status: Current every day smoker tobacco type: cigarettes second hand exposure: Yes alcohol intake: current alcohol intake frequency: 0-2 drinks per day Alcohol type: wine substance use type: does not use caffeine: No what type of physical activity do you participate in: none seatbelt use: always do you feel safe at home: Yes Physical Exam Const alert and no apparent distress General Appearance: cooperative Exam Limitations: no limitations HEENT head/scalp atraumatic Eyes PERRL and EOMs intact bilaterally Neck nodes Resp normal air movement and clear to auscultation bilaterally Cardio regular rate and regular rhythm GI normal to inspection, nondistended, normoactive bowel sounds Extremity General Extremity: edema Skin Skin Narrative: reviewed photos Neuro CN's II-XII intact bilaterally Medical Records Data Medical Nutrition Assessment Dietitian: Nutrition Therapy Diagnosis Start: 05/24/21 12:39 Freq: Status: Active Protocol: Document 05/24/21 12:57 DERIC (Rec: 05/24/21 12:57 SLA [id number]) Nutrition Malnutrition Evidence of Malnutrition Exists No Intake Problem Increased Nutrient Needs (specify) Etiology (protein) due to skin status Signs/Symptoms as evidenced by shearing coccyx/ nik LE cellulitis ( reddened) Status Active Problem Recommendation Dietitian Recommendations/Changes Will continue diet as ordered Rec d/c Pj when no longer indicated Lab / Micro Data Result Diagrams: 05/24/21 05:10 05/24/21 05:10 Labs: Laboratory Results - last 24 hr 05/25/21 06:15: POC Glucose 93
--- NOTE | 2021-05-25 14:20 | PCM.CONS.R ---
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 However clinically she has significant lower extremity edema. Last urine sodium was less than 20. Possible hypervolemic hyponatremia now. We will start torsemide orally. Increase dose as tolerated. HPI Consult Data Date of Consult: 05/25/21 HPI Narrative HPI Narrative: EUNICE BRAVO, is a 75 F who presents to the rehab for therapy services. Nephrology consulted for hyponatremia. She is known to us from recent hospital admission. Known history of hyponatremia, previous labs consistent with SIADH. Last urine sodium was less than 20. She has significant lower extremity edema hence there might be some component of hypervolemic hyponatremia. Currently denies any complaints. [facility] Medical History Acute on chronic systolic (congestive) heart failure Bilateral leg ulcer COPD (chronic obstructive pulmonary disease) Debility Dependence on supplemental oxygen Dependent edema Essential (primary) hypertension History of breast cancer Hyponatremia Immobility Irregular heart beat Leg edema, left Leg edema, right Leg swelling Lumbar disc disease Lung mass Lymphangitis of lower extremity Lymphedema of both lower extremities New onset A. fib with RVR Nicotine dependence Non-ischemic cardiomyopathy Non-rheumatic tricuspid valve insufficiency Nonrheumatic mitral (valve) insufficiency Osteoporosis Paroxysmal atrial fibrillation Secondary pulmonary arterial hypertension Smoker Suspected chronic obstructive pulmonary disease based on initial evaluation Thrush, oral Tobacco abuse Tobacco abuse counseling Ulcer of left lower extremity with fat layer exposed Wound cellulitis Home Medications mojfespj-fmd-omrb-FA-lutein 1 tab PO DAILY 10/05/19 [History Last Taken 05/11/21] albuterol sulfate 90 mcg/actuation aerosol inhaler 1 - 2 puff INHALATION Q4H PRN PRN #18 g 04/29/20 [Rx Last Taken 07/12/20] carvedilol 25 mg PO BID 07/12/20 [History Last Taken 05/11/21] fluticasone propion-salmeterol 2 puff INHALATION BID 07/12/20 [History Last Taken 05/11/21] Spiriva Respimat 2 inh INHALATION BID 05/12/21 [History Last Taken 05/11/21] Xarelto 20 mg PO DAILY 05/12/21 [History Last Taken 05/11/21] magnesium oxide 400 mg PO DAILY 05/12/21 [History Last Taken 05/11/21] amoxicillin-pot clavulanate [Augmentin] 1 tab PO BID 05/23/21 [History Last Taken 05/23/21 1034] mpmcl-zdac-VkYQI-qijzvk-bo-ovd [Pj (with collagen)] 1 packet PO BIDCM 05/23/21 [History Last Taken Unknown] collagenase clostridium histo. [Santyl] 1 applic TOPICAL DAILY 05/23/21 [History Last Taken Unknown] ferrous sulfate [FeroSul] 325 mg PO QODAY@1200 05/23/21 [History Last Taken Unknown] guaifenesin 1,200 mg PO BID 05/23/21 [History Last Taken Unknown] menthol-zinc oxide [Calmoseptine] 1 applic TOPICAL BID 05/23/21 [History Last Taken Unknown] miconazole nitrate 1 applic VAGINAL QHS 05/23/21 [History Last Taken Unknown] nystatin [Nyamyc] 1 applic TOPICAL BID 05/23/21 [History Last Taken Unknown] sennosides-docusate sodium [Stool Softener-Stimulant Laxat] 2 tab PO BID 05/23/21 [History Last Taken Unknown] Allergy/AdvReac Type Severity Reaction Status Date / Time albuterol sulfate Allergy Swelling Verified 05/20/21 11:57 [From Combivent] ipratropium bromide Allergy Swelling Verified 05/20/21 11:57 [From Combivent] metoprolol Allergy Laryngospas Verified 05/20/21 11:57 ms Sulfa (Sulfonamide Allergy Rash Verified 05/20/21 11:57 Antibiotics) beclomethasone [From Qvar] AdvReac COUGHING Verified 05/20/21 11:57 benzalkonium chloride AdvReac Rash Verified 05/20/21 11:57 [From Merthiolate (benzalkonium)] codeine AdvReac Chest Verified 05/20/21 11:57 tightness doxycycline AdvReac Abd Verified 05/20/21 11:57 cramps/diarrhea formoterol fumarate AdvReac PT UNSURE Verified 05/20/21 11:57 [From Dulera] OF REACTION hydrochlorothiazide AdvReac PT UNSURE Verified 05/20/21 11:57 OF REACTION ibuprofen [From Advil] AdvReac PT UNSURE Verified 05/20/21 11:57 OF REACTION iodine AdvReac Itching Verified 05/20/21 11:57 merbromin AdvReac PT UNSURE Verified 05/20/21 11:57 OF REACTION mometasone furoate AdvReac PT UNSURE Verified 05/20/21 11:57 [From Dulera] OF REACTION oseltamivir [From Tamiflu] AdvReac uterine Verified 05/20/21 11:57 pain prednisone AdvReac Abd Verified 05/20/21 11:57 cramps/diarrhea PLASTIC TAPE Allergy Rash Uncoded 05/20/21 11:57 Family History Father Emphysema of lung Sister Cancer uterine cancer Surgical History History of left heart catheterization (11/09/19) History of left mastectomy History of lumpectomy of right breast History of tubal ligation polyp removal S/P lumpectomy, right breast Social History household members: spouse Smoking Status: Current every day smoker tobacco type: cigarettes second hand exposure: Yes alcohol intake: current alcohol intake frequency: 0-2 drinks per day Alcohol type: wine substance use type: does not use caffeine: No what type of physical activity do you participate in: none seatbelt use: always do you feel safe at home: Yes ROS ROS Narrative Review of systems negative except mentioned in the history Physical Exam Narrative Alert awake oriented x 3 no obvious distress no pallor no icterus no JVD s1s2 no murmurs lungs clear abdomen soft no organomegaly +++ edema no cyanosis Medical Records Data Medical Nutrition Assessment Dietitian: Nutrition Therapy Diagnosis Start: 05/24/21 12:39 Freq: Status: Active Protocol: Document 05/24/21 12:57 DERIC (Rec: 05/24/21 12:57 SLA [id number]) Nutrition Malnutrition Evidence of Malnutrition Exists No Intake Problem Increased Nutrient Needs (specify) Etiology (protein) due to skin status Signs/Symptoms as evidenced by shearing coccyx/ nik LE cellulitis ( reddened) Status Active Problem Recommendation Dietitian Recommendations/Changes Will continue diet as ordered Rec d/c Pj when no longer indicated Lab / Micro Data Result Diagrams: 05/24/21 05:10 05/24/21 05:10 Labs: Laboratory Results - last 24 hr 05/25/21 06:15: POC Glucose 93
[2021-05-25 14:41] VITALS: BP 108/55; PULSE 89; RESP 17; TEMP 36.7; O2SAT 98
[2021-05-25] MEDS: Linezolid 600 MG Tablet PO (15:28)
[2021-05-25] MEDS: Furosemide 40 MG Tablet PO (17:03)
[2021-05-25] MEDS: Carvedilol 25 MG Tablet PO (17:03)
[2021-05-25] MEDS: Senna/Docusate Sodium 1 Tablet 2 TABLET PO (17:03)
[2021-05-25] MEDS: Rivaroxaban 20 MG Tablet PO (17:03)
[2021-05-26 05:12] VITALS: BP 116/63; PULSE 79; RESP 16; TEMP 36.6; O2SAT 99
[2021-05-26] MEDS: Furosemide 40 MG Tablet PO (05:16)
[2021-05-26] MEDS: Linezolid 600 MG Tablet PO ×2 (05:16→17:20)
[2021-05-26] MEDS: Fluticasone/Salmeterol 232-14 Inhaler 1 PUFF INHALATION ×2 (05:16→17:19)
[2021-05-26] MEDS: Umeclidinium Bromide Inhaler 1 PUFF INHALATION (05:16)
[2021-05-26] MEDS: guaiFENesin 1,200 MG Tablet 1200 MG PO ×2 (05:16→17:19)
[2021-05-26] MEDS: Carvedilol 25 MG Tablet PO ×2 (05:16→17:19)
[2021-05-26] MEDS: Senna/Docusate Sodium 1 Tablet 2 TABLET PO (05:16)
[2021-05-26] MEDS: Menthol/Lanolin/Calamine/Znox 113 GM Tube 1 APPLIC TOPICAL ×2 (05:16→19:47)
[2021-05-26] MEDS: Nystatin Powder 15gm Bottle 1 APPLIC TOPICAL ×2 (05:17→19:46)
[2021-05-26] MEDS: Miconazole-7 Nitrate Cream 1 APPLIC VAGINAL (05:17)
[2021-05-26 06:21] LABS: Bedside Glucose 102 mg/dL (70-110)
[2021-05-26] MEDS: Multivitamins,Ther W-Minerals Tablet 1 TABLET PO (09:39)
[2021-05-26] MEDS: Amox/Clavulanate 875 MG Tablet PO ×2 (09:39→17:18)
[2021-05-26] MEDS: Magnesium Chloride 64 MG Delay Rel.Tablet 128 MG PO (09:40)
[2021-05-26] MEDS: Ferrous Sulfate 325 MG Tablet PO (12:50)
--- NOTE | 2021-05-26 13:09 | NURSING ---
Resident educated on the COVID 19 vaccine and does not want to receive it.
--- NOTE | 2021-05-26 13:23 | CASEMGMT ---
Social Work REUBEN informed by therapy and nursing that pt is requesting to return home. REUBEN met with pt and spouse to discuss discharge. SW reviewed benefits of staying in TCU for wound care and therapy. Pt acknowleging understanding but stating she will stay until tomorrow and then leave. Pt is agreeable to home health services. Pt spouse states they have utilized [facility] in the past and would like to use them again. Referral to [facility] and they are able to accept pt with a start of care on Tuesday 05/29. SW assisted pt in completing Health Care Power of Chuck Boner which names her Ochoa. Pt denies desire to complete Living Will. Copy of HCPOA placed on chart and original given to pt. Pt has needed DME. Plan: D/C 05/27/21 Home with spouse. [facility] Home Health Care PT/OT/SN/CHEMICAL PROCESSOR RADHA Webber
--- NOTE | 2021-05-26 14:06 | DS.PCM_ITS ---
Providers Date of Admission: 05/23/21 Primary Care Physician: Dr. Amber Sanders MD Consultations 05/23/21 16:04 Consult: Onc/Wound/cook short order Routine Comment: Reason for Consult:: Pressure injury and cellulitis 05/24/21 14:27 Consult: Plastic Surgery Routine Consulting Provider: Matt Casillas Reason for Consult: LT leg wound EMERGENT Consult: No Notified: Yes Date Notified: 05/24/21 Time Notified: 14:28 Method of Notification: Verbal 05/24/21 15:07 Consult: Infectious Disease Routine Consulting Provider: Vignesh Georges Reason for Consult: lt leg wound/infection EMERGENT Consult: No Notified: Yes Date Notified: 05/24/21 Time Notified: 15:07 Method of Notification: Verbal 05/24/21 15:12 Consult: Nephrology Routine Consulting Provider: Tony Ying Reason for Consult: hyponatremia EMERGENT Consult: No MD Notified: Yes Date Notified: 05/24/21 Time Notified: 15:16 Method of Notification: Verbal Reason For Visit: LEG WOUND Diagnosis Discharge Diagnosis (1) Hyponatremia: Status: Acute Code(s): E87.1 - Hypo-osmolality and hyponatremia Medications at Discharge Home Medications oupogywh-tzd-iqfk-FA-lutein 1 tab PO DAILY 10/05/19 carvedilol 25 mg PO BID 07/12/20 fluticasone propion-salmeterol 2 puff INHALATION BID 07/12/20 Spiriva Respimat 2 inh INHALATION BID 05/12/21 Xarelto 20 mg PO DAILY 05/12/21 magnesium oxide 400 mg PO DAILY 05/12/21 Pj (with collagen) 1 packet PO BIDCM 05/23/21 ferrous sulfate [FeroSul] 325 mg PO QODAY@1200 05/23/21 guaifenesin 1,200 mg PO BID 05/23/21 menthol-zinc oxide [Calmoseptine] 1 applic TOPICAL BID 05/23/21 Santyl 1 applic TOPICAL DAILY 30 Days #30 g 05/26/21 acetaminophen 1,000 mg PO Q6H PRN PRN #0 tab 05/26/21 amoxicillin-pot clavulanate [Augmentin] 1 tab PO BID 4 Days #8 tab 05/26/21 furosemide 40 mg PO DAILY 30 Days #30 tab 05/26/21 linezolid 600 mg PO BID 6 Days #12 tab 05/26/21 nystatin [Nyamyc] 1 applic TOPICAL BID 30 Days #60 g 05/26/21 Hospital Course Operations None Procedures None Summary of Care Provided Minutes Spent on Discharge: 35 Hospital Course: 75 year old female with below past medical history hospitalized for right lower extremity cellulitis, left lower extremity ulcer, complicated by hyponatremia secondary to 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 Discharge home with 05/27/2021, [facility] PT/OT/SN/SENIOR CLINICAL DATA MANAGER. Physical Exam Const alert and oriented x3 General Appearance: cooperative HEENT normocephalic Eyes PERRL and EOMs intact bilaterally Neck supple, no JVD and no carotid bruits Resp normal respiratory effort, normal air movement and clear to auscultation bilaterally Cardio regular rate and regular rhythm GI normal to inspection, nondistended, normoactive bowel sounds, non-tender and non-distended Extremity normal capillary refill Extremity Narrative: Bilateral lower extremity edema. General Extremity: Negative for edema Skin no rashes or lesions noted General Skin Exam: no breakdown Psych affect normal Appearance: appropriate Medical Records Data Medical Nutrition Assessment Dietitian: Nutrition Therapy Diagnosis Start: 05/24/21 12:39 Freq: Status: Active Protocol: Document 05/24/21 12:57 DERIC (Rec: 05/24/21 12:57 DERIC [id number]) Nutrition Malnutrition Evidence of Malnutrition Exists No Intake Problem Increased Nutrient Needs (specify) Etiology (protein) due to skin status Signs/Symptoms as evidenced by shearing coccyx/ nik LE cellulitis ( reddened) Status Active Problem Recommendation Dietitian Recommendations/Changes Will continue diet as ordered Rec d/c Pj when no longer indicated Weight / BMI Weight Weight: 70.307 kg Body Mass Index (BMI) 27.4 ABG / Lab / Microbiology Data Result Diagrams: 05/24/21 05:10 05/24/21 05:10 Laboratory: Laboratory Results - last 24 hr 05/26/21 06:15: POC Glucose 102 D/C Instructions Discharge Diet: 6 Cup Fluid Restriction Discharge Activity: Return to Normal Activity, May Shower and Use Walker Weight Bearing Status: Weight bearing as tolerated Call your doctor if you observe: Fever of 101 or Higher, Inability to urinate, Inability to have a bowel movement, Shortness of breath, Chest pain, Prolonged hiccupping and Uncontrolled pain Additional Instructions: Discharge home with 05/27/2021, [facility] PT/OT/SN/SENIOR CLINICAL DATA MANAGER. Please Follow Up With: Matt Casillas MD When: As scheduled. Meaningful Use Info Meaningful Use Diagnoses (Choose all that apply): None applicable Discharge Plan Admission Admit Date/Time: 05/23/21 15:35 Primary Reason for Your Visit: Debility. Attending Provider: Andrea Rosenthal Chi Primary Care Provider: Amber Sanders Consulting Providers: Matt Casillas ; Vignesh Georges ; Tony Ying Instructions Additional Instructions / Restrictions: [facility] PT/OT/SN/SENIOR CLINICAL DATA MANAGER Discharge Orders/Prescriptions Prescriptions: New furosemide 40 mg Tablet 40 mg PO DAILY 30 Days Qty: 30 RF: 0 acetaminophen 500 mg Tablet 1,000 mg PO Q6H PRN PRN (Reason: Pain Score 1-10) Qty: 0 RF: 0 linezolid 600 mg Tablet 600 mg PO BID 6 Days Qty: 12 RF: 0 Continued yxhaascs-xwx-barw-FA-lutein 1 EACH tablet 1 tab PO DAILY RF: 0 carvedilol 25 MG tablet 25 mg PO BID RF: 0 fluticasone propion-salmeterol 1 PUFF inhaler 2 puff inhalation BID RF: 0 magnesium oxide 400 mg (241.3 mg magnesium) tablet 400 mg PO DAILY RF: 0 Xarelto 20 mg tablet 20 mg PO DAILY RF: 0 Spiriva Respimat 2.5 mcg/actuation mist 2 inh INHALATION BID RF: 0 ferrous sulfate [FeroSul] 325 mg (65 mg iron) tablet 325 mg PO QODAY@1200 RF: 0 guaifenesin 1,200 MG tablet extended release 12hr 1,200 mg PO BID RF: 0 menthol-zinc oxide [Calmoseptine] 0.44-20.6 % ointment 1 applic topical BID RF: 0 Pj (with collagen) 7-7-1.5 gram powder in packet 1 packet PO BIDCM RF: 0 nystatin [Nyamyc] 100,000 unit/gram powder 1 applic topical BID 30 Days Qty: 60 RF: 0 Santyl 250 unit/gram ointment 1 applic topical DAILY 30 Days Qty: 30 RF: 0 amoxicillin-pot clavulanate [Augmentin] 875-125 mg tablet 1 tab PO BID 4 Days Qty: 8 RF: 0 Discontinued sennosides-docusate sodium [Stool Softener-Stimulant Laxat] 8.6-50 mg tablet 2 tab PO BID RF: 0 miconazole nitrate 2 % cream 1 applic vaginal QHS RF: 0 albuterol sulfate 90 mcg/actuation HFA aerosol inhaler 1 - 2 puff INHALATION Q4H PRN PRN (Reason: Asthma) Qty: 18 RF: 6 Referrals / Follow Up: Amber Sanders MD [Primary Care Provider] - Disposition Disposition (needs filled in before D/C Order can be placed): Home Health Service
--- NOTE | 2021-05-26 14:22 | CASEMGMT ---
BIMS and PHQ9 interviews completed on this date for MDS assessment. RADHA Webber
[2021-05-26 14:29] VITALS: BP 117/56; PULSE 82; RESP 16; TEMP 36.6; O2SAT 98
[2021-05-26] MEDS: Collagenase 30gm Tube 1 APPLIC TOPICAL (16:23)
--- NOTE | 2021-05-26 16:25 | NURSING ---
Seeping noted to LLE dressing. Dressing change done. Legs elevated in chair.
[2021-05-26] MEDS: Rivaroxaban 20 MG Tablet PO (17:18)
[2021-05-27 05:15] VITALS: BP 100/56; PULSE 86; RESP 16; TEMP 36.4; O2SAT 97
[2021-05-27] MEDS: Umeclidinium Bromide Inhaler 1 PUFF INHALATION (05:25)
[2021-05-27] MEDS: Linezolid 600 MG Tablet PO (05:25)
[2021-05-27] MEDS: Nystatin Powder 15gm Bottle 1 APPLIC TOPICAL (05:25)
[2021-05-27] MEDS: Fluticasone/Salmeterol 232-14 Inhaler 1 PUFF INHALATION (05:25)
[2021-05-27] MEDS: Menthol/Lanolin/Calamine/Znox 113 GM Tube 1 APPLIC TOPICAL (05:25)
[2021-05-27] MEDS: guaiFENesin 1,200 MG Tablet 1200 MG PO (05:25)
--- NOTE | 2021-05-27 06:16 | NURSING ---
Dr Rosenthal notified of pt having a moderate amount of dark red, liquid bloody stool this morning. BP 100/56, HR 86. Hgb on 05/24 11.5, pt denied having previous bloody stools while admitted. Per Dr Rosenthal, pt is discharging today per her own request and can follow-up with her own PCP.
[2021-05-27 06:21] LABS: Bedside Glucose 99 mg/dL (70-110)
[2021-05-27] MEDS: Collagenase 30gm Tube 1 APPLIC TOPICAL (07:12)
[2021-05-27] MEDS: Amox/Clavulanate 875 MG Tablet PO (09:29)
[2021-05-27] MEDS: Magnesium Chloride 64 MG Delay Rel.Tablet 128 MG PO (09:30)
[2021-05-27] MEDS: Multivitamins,Ther W-Minerals Tablet 1 TABLET PO (09:30)
[2021-05-27 09:31] VITALS: BP 104/64; PULSE 74; RESP 16; TEMP 36.7; O2SAT 97
--- NOTE | 2021-05-31 07:49 | MDS.RN ---
Information for the mds was obtained from review of the clinical record, interview of resident, staff, and direct observation of resident's care.
== END 2021-05-27 09:45 | disposition home health service (06) | DRG 603 ==
PROVIDERS: Admitting Provider Family Medicine Geriatric Medicine; PCP Internal Medicine; Visit Provider Family Medicine Geriatric Medicine
DX: L03.115 Cellulitis of right lower limb (principal); E22.2 Syndrome of inappropriate secretion of antidiuretic hormone; C34.90 Malignant neoplasm of unspecified part of unspecified bronchus or lung; I50.22 Chronic systolic (congestive) heart failure; I42.8 Other cardiomyopathies; L97.922 Non-pressure chronic ulcer of unspecified part of left lower leg with fat layer exposed; Z16.39 Resistance to other specified antimicrobial drug; D50.9 Iron deficiency anemia, unspecified; B37.3 Candidiasis of vulva and vagina; B35.4 Tinea corporis; I11.0 Hypertensive heart disease with heart failure; J44.9 Chronic obstructive pulmonary disease, unspecified; I48.0 Paroxysmal atrial fibrillation; I27.21 Secondary pulmonary arterial hypertension; F17.210 Nicotine dependence, cigarettes, uncomplicated; Z99.81 Dependence on supplemental oxygen; Z79.899 Other long term (current) drug therapy; B95.7 Other staphylococcus as the cause of diseases classified elsewhere
CPT/HCPCS: 36415; 80048; 82962; 85025; 97110; 97116; 97162; 97166; 97530; 97535; 97803

== ENCOUNTER 2021-07-15 17:06 | Inpatient (IN) | payer MEDICARE, OTHER, SELFPAY ==
[2021-07-15] VITALS (11 sets, daily range): BP systolic 70–102; BP diastolic 53–73; PULSE 87–103; RESP 18–26; TEMP 36.3–36.9; O2SAT 65–99; BMI 23.6; BMI 23.3
--- NOTE | 2021-07-15 17:42 | RAD_ITS ---
STUDY: X-RAY - RIGHT FOOT CLINICAL: Female, 75 years old. INFECTION TECHNIQUE: 3 view(s) of the foot. COMPARISON: None. FINDINGS: Diffuse osteopenia. Normal visualized subtalar, talonavicular, calcaneocuboid, tarsal and tarsometatarsal articulations. Normal metatarsi. Normal metatarsophalangeal joint of the great toe. Normal tibial and fibular sesamoid bones. Normal interphalangeal joint of the great toe. Normal phalanges of the great toe. Normal second through fifth metatarsophalangeal joints. Normal interphalangeal joints and phalanges of the lesser toes. Soft tissue swelling of the dorsal forefoot. RAD/Foot min 3 Views IMPRESSION: No destructive bony process. Soft tissue swelling. Electronically Signed: Jason Colunga MD ([place]) at 19:47 EDT , Service support ,
--- NOTE | 2021-07-15 17:42 | EKG12_ITS ---
Test Reason : Blood Pressure : / mmHG Vent. Rate : 096 BPM Atrial Rate : 100 BPM P-R Int : 000 ms QRS Dur : 104 ms QT Int : 356 ms P-R-T Axes : 000 -75 092 degrees QTc Int : 449 ms Atrial fibrillation Left axis deviation Anterior- Septal infarct , age undetermined Abnormal ECG Confirmed by ANIKET GILBERT, CATALINA ([id number]), art editor DANIEL GRANGER ([id number]) on 07/17/2021 1:24:05 PM Referred By: Jesisca Plaza Confirmed By:CATALINA MARCIAL MD
--- NOTE | 2021-07-15 17:42 | RAD_ITS ---
STUDY: X-RAY - LEFT FOOT CLINICAL: Female, 75 years old. infection TECHNIQUE: 3 view(s) of the foot. COMPARISON: None. FINDINGS: Diffuse osteopenia. Normal visualized subtalar, talonavicular, calcaneocuboid, tarsal and tarsometatarsal articulations. Normal metatarsi. There is degenerative arthrosis of the metatarsophalangeal joint of the hallux . Normal tibial and fibular sesamoid bones. Normal interphalangeal joint of the great toe. Normal phalanges of the great toe. Normal second through fifth metatarsophalangeal joints. Normal interphalangeal joints and phalanges of the lesser toes. Soft tissue swelling of the dorsal midfoot. RAD/Foot min 3 Views IMPRESSION: Soft tissue swelling. No destructive bony process. Electronically Signed: Jason Colunga MD ([place]) at 19:48 EDT , Service support ,
--- NOTE | 2021-07-15 17:47 | EDS_ITS ---
HPI History of Present Illness Chief Complaint: Diarrhea Informant: patient and family Narrative Narrative: 75-year-old female presenting with fatigue and generalized weakness. She states that she has not been feeling well for several days. She has diarrhea. She has bilateral lower extremity redness. states she has not been able to ambulate for the past week. He states prior to that she was able to use a wheelchair. He has been picking her up and putting her on the toilet. She is not vaccinated for Covid. Prior similar symptoms: Yes PFSH PFS Medical History Acute on chronic systolic (congestive) heart failure Bilateral leg ulcer COPD (chronic obstructive pulmonary disease) Debility Dependence on supplemental oxygen Dependent edema Essential (primary) hypertension History of breast cancer Hyponatremia Immobility Irregular heart beat Leg edema, left Leg edema, right Leg swelling Lumbar disc disease Lung mass Lymphangitis of lower extremity Lymphedema of both lower extremities New onset A. fib with RVR Nicotine dependence Non-ischemic cardiomyopathy Non-rheumatic tricuspid valve insufficiency Nonrheumatic mitral (valve) insufficiency Osteoporosis Paroxysmal atrial fibrillation Secondary pulmonary arterial hypertension Smoker Suspected chronic obstructive pulmonary disease based on initial evaluation Thrush, oral Tobacco abuse Tobacco abuse counseling Ulcer of left lower extremity with fat layer exposed Wound cellulitis Home Medications [id number] 1 tab PO DAILY 10/05/19 [History Last Taken 05/11/21] carvedilol 25 mg PO BID 07/12/20 [History Last Taken 05/11/21] fluticasone propion-salmeterol 2 puff INHALATION BID 07/12/20 [History Last Taken 05/11/21] Spiriva Respimat 2 inh INHALATION BID 05/12/21 [History Last Taken 05/11/21] Xarelto 20 mg PO DAILY 05/12/21 [History Last Taken 05/11/21] magnesium oxide 400 mg PO DAILY 05/12/21 [History Last Taken 05/11/21] ferrous sulfate [FeroSul] 325 mg PO QODAY@1200 05/23/21 [History Last Taken Unknown] acetaminophen 1,000 mg PO Q6H PRN PRN #0 tab 05/26/21 [Rx Last Taken Unknown] amoxicillin-pot clavulanate [Augmentin] 1 tab PO BID 4 Days #8 tab 05/26/21 [Rx Last Taken Unknown] Allergy/AdvReac Type Severity Reaction Status Date / Time albuterol sulfate Allergy Swelling Verified 07/15/21 17:19 [From Combivent] ipratropium bromide Allergy Swelling Verified 07/15/21 17:19 [From Combivent] metoprolol Allergy Laryngospas Verified 07/15/21 17:19 ms Sulfa (Sulfonamide Allergy Rash Verified 07/15/21 17:19 Antibiotics) beclomethasone [From Qvar] AdvReac COUGHING Verified 07/15/21 17:19 benzalkonium chloride AdvReac Rash Verified 07/15/21 17:19 [From Merthiolate (benzalkonium)] codeine AdvReac Chest Verified 07/15/21 17:19 tightness doxycycline AdvReac Abd Verified 07/15/21 17:19 cramps/diarrhea formoterol fumarate AdvReac PT UNSURE Verified 07/15/21 17:19 [From Dulera] OF REACTION hydrochlorothiazide AdvReac PT UNSURE Verified 07/15/21 17:19 OF REACTION ibuprofen [From Advil] AdvReac PT UNSURE Verified 07/15/21 17:19 OF REACTION iodine AdvReac Itching Verified 07/15/21 17:19 merbromin AdvReac PT UNSURE Verified 07/15/21 17:19 OF REACTION mometasone furoate AdvReac PT UNSURE Verified 07/15/21 17:19 [From Dulera] OF REACTION oseltamivir [From Tamiflu] AdvReac uterine Verified 07/15/21 17:19 pain prednisone AdvReac Abd Verified 07/15/21 17:19 cramps/diarrhea PLASTIC TAPE Allergy Rash Uncoded 07/15/21 17:19 Family History Father Emphysema of lung Sister Cancer uterine cancer Surgical History History of left heart catheterization (11/09/19) History of left mastectomy History of lumpectomy of right breast History of tubal ligation polyp removal S/P lumpectomy, right breast Social History household members: spouse Smoking Status: Current every day smoker tobacco type: cigarettes second hand exposure: Yes alcohol intake: current alcohol intake frequency: 0-2 drinks per day Alcohol type: wine substance use type: does not use caffeine: No what type of physical activity do you participate in: none seatbelt use: always do you feel safe at home: Yes ROS ROS ED Constitutional Constitutional ED: Denies fever(s) Eyes Eyes: Denies change in vision ENT ENT ED: Denies rhinorrhea or sore throat Cardiovascular Cardiovascular: Denies chest pain or palpitations Respiratory/Chest Respiratory/Chest: Denies cough or dyspnea Gastrointestinal Gastrointestinal: Reports diarrhea; Denies abdominal pain, nausea or vomiting Genitourinary Genitourinary ED: Denies dysuria Musculoskeletal Musculoskeletal: Reports myalgias Integumentary Denies rash Neurologic Neurologic: Denies headache(s) Psychiatric Psychiatric: Denies suicidal thoughts EXAM Physical Exam Const Vital Signs: 07/15/21 17:10 07/15/21 17:17 07/15/21 17:59 Temperature 97.3 F L 97.3 F L 97.4 F L Temperature Source Temporal Temporal Temporal Pulse Rate 95 100 Respiratory Rate 18 18 Blood Pressure 70/53 L 70/53 L Blood Pressure Mean 58 58 Pulse Ox 65 95 Oxygen Delivery Method Room Air Room Air Room Air 07/15/21 18:07 07/15/21 18:47 07/15/21 19:00 Temperature 97.6 F L 98.3 F Temperature Source Oral Oral Pulse Rate 91 101 H 103 H Respiratory Rate 26 H 18 18 Blood Pressure 82/60 L 99/66 102/57 L Blood Pressure Mean 67 77 72 Pulse Ox 96 94 99 Oxygen Delivery Method Room Air Room Air Room Air 07/15/21 19:33 Temperature 98.2 F Temperature Source Temporal Pulse Rate 96 Respiratory Rate 22 H Blood Pressure 100/68 Blood Pressure Mean 78 Pulse Ox 95 Oxygen Delivery Method Positive well nourished and well developed General Appearance ED: well developed HEENT Reports normocephalic and head/scalp atraumatic Eyes PERRL and EOMs intact bilaterally Neck supple General: Negative for tenderness Chest Wall inspection of chest normal Resp normal respiratory effort and clear to auscultation bilaterally Cardio regular rate Rhythm: abnormal rhythm irregularly irregular GI non-tender and non-distended Palpation: soft; Negative for guarding or rebound tenderness present no CVA tenderness Back/Spine Back/Spine Narrative: Excoriated skin lower back. Extremity Extremity Narrative: Diffuse erythema bilateral lower extremities. There are maggots surrounding her left foot. Neuro oriented x3 Sensorium / Orientation: alert Psych mental status grossly normal MDM MDM MDM Narrative Medical decision making narrative: Patient initially hypotensive. She was given 30 cc/kg bolus of IV fluids. She was given vancomycin and Zosyn. EKG shows A. fib rate of 96. Her blood pressure is responsive to fluids with a repeat of 102/57. CBC shows white count 17.9. Sodium 122, potassium 5.8. Creatinine 7.03, previous creatinine 0.44. Covid is negative. Urinalysis is unremarkable. Lactic acid 1.7. Discussed with hospitalist for admission. Lab Data Attestation: I reviewed the patient's lab results. Labs: Laboratory Results - last 24 hr 07/15/21 07/15/21 07/15/21 17:48 17:48 17:48 WBC 17.9 H RBC 5.10 Hgb 15.4 H Hct 46.2 MCV 90.6 MCH 30.2 MCHC 33.3 RDW Std Deviation 47.8 H RDW Coeff of Malini 14.4 Plt Count 416 MPV 8.3 Immature Gran % (Auto) 1.700 H Neut % (Auto) 91.5 H Lymph % (Auto) 3.5 L [place] % (Auto) 3.0 Eos % (Auto) 0.1 Baso % (Auto) 0.2 Absolute Neuts (auto) 16.4 H Absolute Lymphs (auto) 0.62 L Nucleated RBC % 0 PT 13.7 INR 1.1 APTT 29.7 Sodium 122 L Potassium 5.8 H Chloride 90 L Carbon Dioxide 17.0 L Anion Gap 15 BUN 103 H* Creatinine 7.03 H Estim Creat Clear Calc 5.81 Est GFR (MDRD) Af Amer 7 L Est GFR (MDRD) Non-Af 6 L BUN/Creatinine Ratio 14.7 Glucose 87 Lactic Acid Calcium 10.4 H Total Bilirubin 0.70 AST 22 ALT 19 Alkaline Phosphatase 110 Troponin I High Sens 25 Total Protein 8.1 Albumin 3.2 Globulin 4.9 H Albumin/Globulin Ratio 0.7 L Urine Color Urine Clarity Urine pH Ur Specific [place] Urine Protein Urine Glucose (UA) Urine Ketones Urine Occult Blood Urine Nitrite Urine Bilirubin Urine Urobilinogen Ur Leukocyte Esterase Urine RBC Urine WBC Ur Squamous Epith Cells Urine Bacteria Urine Mucus 09/25/21 09/25/21 17:48 18:25 WBC RBC Hgb Hct MCV MCH MCHC RDW Std Deviation RDW Coeff of [place] Plt Count MPV Immature Gran % (Auto) Neut % (Auto) Lymph % (Auto) [place] % (Auto) Eos % (Auto) Baso % (Auto) Absolute Neuts (auto) Absolute Lymphs (auto) Nucleated RBC % PT INR APTT Sodium Potassium Chloride Carbon Dioxide Anion Gap BUN Creatinine Estim Creat Clear Calc Est GFR (MDRD) Af Amer Est GFR (MDRD) Non-Af BUN/Creatinine Ratio Glucose Lactic Acid 1.7 Calcium Total Bilirubin AST ALT Alkaline Phosphatase Troponin I High Sens Total Protein Albumin Globulin Albumin/Globulin Ratio Urine Color Yellow Urine Clarity Clear Urine pH 5.0 Ur Specific [place] 1.025 Urine Protein 15 H Urine Glucose (UA) Normal Urine Ketones 5 H Urine Occult Blood Negative Urine Nitrite Negative Urine Bilirubin 3 H Urine Urobilinogen Normal Ur Leukocyte Esterase 100 H Urine RBC 0 SEEN Urine WBC 0-5 SEEN Ur Squamous Epith Cells 0 SEEN Urine Bacteria 0 SEEN Urine Mucus 0 SEEN Radiography Chest X-Ray - ED: 1 View, Read by ED Physician and Read by Radiologist Diagnostic Testing: Radiology Impression Foot X-Ray 07/15/21 17:42 IMPRESSION: Soft tissue swelling. No destructive bony process. Electronically Signed: Jason Colunga MD ([place]) at 19:48 EDT , Service support , Foot X-Ray 07/15/21 17:42 IMPRESSION: No destructive bony process. Soft tissue swelling. Electronically Signed: Jason Colunga MD ([facility]) at 19:47 EDT , Service support , Chest X-Ray 07/15/21 18:50 IMPRESSION: No airspace consolidation or pleural effusion. Stable. Left perihilar mass. Electronically Signed: Jason Colunga MD ([facility]) at 19:46 EDT , Service support , EKG Initial EKG: Attestation: I personally reviewed and interpreted this EKG as follows: Interpretation: Atrial Fibrillation Discharge Plan Dx/Rx/DC Orders Clinical Impression: Acute renal failure, Diarrhea, Bilateral lower leg cellulitis, Infestation, maggot Disposition Disposition: Acute Care Hospital [facility]
[2021-07-15 18:02] LABS: Absolute Lymphocyte Count 0.62 X10^3/uL (0.83-4.51); Absolute Neutrophil Count 16.4 X10^3/uL (2.0-7.7); Basophil# 0.04 X10^3/uL; Basophil% 0.2 % (0-1); Eosinophil# 0.01 X10^3/uL; Eosinophils% 0.1 % (0-5); Hematocrit 46.2 % (37-47); Hemoglobin 15.4 g/dL (12.0-15.0); Lymphocyte # 0.62 X10^3/ul (0.83-4.51); Lymphocyte % 3.5 % (19-41); Mean Corp Hgb Conc 33.3 g/dL (32-36); Mean Corpuscular Hgb 30.2 pg (27.0-32.0); Mean Corpuscular Volume 90.6 fL (81-99); Mean Platelet Vol. 8.3 fl (6.2-12.0); Monocyte# 0.53 X10^3/uL; NRBC Flagged by Analyzer 0 % (0-5); Neutrophil # 16.41 X10^3/uL (2.7-7.7); Neutrophil % 91.5 % (47-70); Platelet Count 416 K/mm3 (150-450); RBC Distribution Width CV 14.4 % (11.6-14.6); RBC Distribution Width SD 47.8 fl (35.1-43.9); White Blood Count 17.9 K/mm3 (4.4-11.0)
[2021-07-15 18:20] LABS: International Normalized Ratio 1.1; Partial Thromboplast Time 29.7 Seconds (24.1-36.2); Prothrombin Time (Protime)PT. 13.7 SECONDS (11.7-14.9)
[2021-07-15] MEDS: 0.9% Normal Saline 1,000 ML 999 ML IV ×2 (18:23→19:50)
[2021-07-15 18:28] LABS: ALB/GLOB Ratio 0.7 RATIO (0.9-2.4); AST(SGOT) 22 U/L (15-37); Alanine Aminotransfer ALT/SGPT 19 U/L (13-56); Albumin, Serum 3.2 g/dL (3.2-5.0); Alkaline Phosphatase 110 U/L (45-117); Anion Gap 15 (5-15); BUN 103 mg/dL (7-18); BUN/Creat Ratio 14.7 RATIO (10-20); Calcium,Total 10.4 mg/dL (8.5-10.1); Chloride 90 mmol/L (98-107); Creatinine, Serum 7.03 mg/dL (0.55-1.02); EST Glomerular Filtration Rate 6 mL/min (>60); Est Glom Filt Rate - Afr Amer 7 mL/min (>60); Estimated Creatinine Clearance 5.81 ml/min; Globulin 4.9 g/dL (2.2-4.2); Glucose 87 mg/dL (74-106); Potassium 5.8 mmol/L (3.5-5.1); Protein, Total 8.1 g/dL (6.4-8.2); Sodium Level 122 mmol/L (136-145); Troponin-I HS 25 pg/mL (3.0-54.0)
[2021-07-15 18:33] LABS: Bacteria 0 SEEN /hpf (None Seen); Mucous, Urine 0 SEEN /hpf (<or=2+); Red Blood Cells-Urine 0 SEEN /hpf (0-5); Squamous Epithelial Cells - UA 0 SEEN /hpf (5-10)
[2021-07-15 18:39] LABS: Color, Urine Yellow (Yellow); Glucose, Dipstick Normal (Normal); Ketone-Dipstick 5 mg/dl (Negative); Leukocyte Esterase-Dipstick 100 /ul (Negative); Nitrite-Dipstick Negative (Negative); Occult Blood-Urine Negative /ul (Negative); Protein-Dipstick 15 mg/dl (Negative); Specific Gravity, Urine 1.025 (1.002-1.030); Urine Clarity Clear (Clear); Urine Urobilinogen Normal (Normal)
[2021-07-15 18:40] LABS: Urine Bilirubin Dipstick 3 mg/dL (Negative)
[2021-07-15 18:44] LABS: Lactic Acid 1.7 mmol/L (0.4-1.9)
[2021-07-15 18:46] LABS: White Blood Cells 0-5 SEEN /hpf (0-5)
--- NOTE | 2021-07-15 18:50 | RAD_ITS ---
STUDY: X-RAY CHEST REASON FOR EXAM: Female, 75 years old. sob TECHNIQUE: AP COMPARISON: 04/19/2020 FINDINGS: EKG leads project over the chest. Surgical clips overlie each axilla. Left perihilar partially calcific mass is stable. There is no demonstrated pleural abnormality. Normal size heart. Normal mediastinum and mike. Normal visualized pulmonary arteries. There is atherosclerotic calcification of the aortic arch with tortuosity. There is a dextroscoliosis of the thoracic spine. Normal visualized ribs, clavicles, and shoulders. There is no demonstrated abnormality of the visualized soft tissue structures of the upper abdomen. RAD/Chest 1 View (Portable) IMPRESSION: No airspace consolidation or pleural effusion. Stable. Left perihilar mass. Electronically Signed: Jason Colunga MD ([place]) at 19:46 EDT , Service support ,
[2021-07-15] MEDS: Vancomycin IV 1,000 MG/200 ML BAG 200 MG IV (19:09)
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
--- NOTE | 2021-07-15 19:47 | ED.RN ---
patient on bed fu and has not had a BM yet. Pwr lab call, they need more stool to test. Water given to patient per her request.
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
[2021-07-15 21:04] LABS: Magnesium 3.4 mg/dL (1.6-2.6); Phosphorus 6.6 mg/dL (2.5-4.9)
[2021-07-15 21:38] LABS: Erythrocyte Sedimentation Rate 88 mm/hr (0-30)
[2021-07-15] MEDS: Menthol/Lanolin/Calamine/Znox 113 GM Tube 1 APPLIC TOPICAL (22:29)
[2021-07-15] MEDS: 0.9% Normal Saline 1,000 ML 100 ML IV (22:30)
[2021-07-16] VITALS (12 sets, daily range): BP systolic 84–96; BP diastolic 53–66; PULSE 67–104; RESP 16–18; TEMP 36.1–36.7; O2SAT 94–99
[2021-07-16 01:22] LABS: Anion Gap 15 (5-15); BUN 103 mg/dL (7-18); BUN/Creat Ratio 16.2 RATIO (10-20); Calcium,Total 9.6 mg/dL (8.5-10.1); Chloride 96 mmol/L (98-107); Creatinine, Serum 6.34 mg/dL (0.55-1.02); EST Glomerular Filtration Rate 7 mL/min (>60); Est Glom Filt Rate - Afr Amer 8 mL/min (>60); Estimated Creatinine Clearance 6.44 ml/min; Glucose 84 mg/dL (74-106); Potassium 5.1 mmol/L (3.5-5.1); Sodium Level 126 mmol/L (136-145)
[2021-07-16 02:21] LABS: Urine Sodium < 5 mmol/L (Not Establ.)
[2021-07-16 06:01] LABS: Absolute Lymphocyte Count 0.64 X10^3/uL (0.83-4.51); Absolute Neutrophil Count 14.9 X10^3/uL (2.0-7.7); Basophil# 0.03 X10^3/uL; Basophil% 0.2 % (0-1); Eosinophil# 0.03 X10^3/uL; Eosinophils% 0.2 % (0-5); Hematocrit 40.9 % (37-47); Hemoglobin 12.8 g/dL (12.0-15.0); Lymphocyte # 0.64 X10^3/ul (0.83-4.51); Lymphocyte % 3.9 % (19-41); Mean Corp Hgb Conc 31.3 g/dL (32-36); Mean Corpuscular Hgb 30.3 pg (27.0-32.0); Mean Corpuscular Volume 96.9 fL (81-99); Mean Platelet Vol. 8.5 fl (6.2-12.0); Monocyte% 4.2 % (0-10); NRBC Flagged by Analyzer 0 % (0-5); Neutrophil # 14.94 X10^3/uL (2.7-7.7); Neutrophil % 90.2 % (47-70); Platelet Count 335 K/mm3 (150-450); RBC Distribution Width CV 14.6 % (11.6-14.6); RBC Distribution Width SD 52.2 fl (35.1-43.9); Red Blood Count 4.22 M/mm3 (4.2-5.4); White Blood Count 16.6 K/mm3 (4.4-11.0)
[2021-07-16 06:38] LABS: Differential Indicated SCAN CRITERIA MET
[2021-07-16 06:49] LABS: ALB/GLOB Ratio 0.6 RATIO (0.9-2.4); AST(SGOT) 21 U/L (15-37); Alanine Aminotransfer ALT/SGPT 14 U/L (13-56); Albumin, Serum 2.3 g/dL (3.2-5.0); Alkaline Phosphatase 87 U/L (45-117); Anion Gap 16 (5-15); BUN 99 mg/dL (7-18); Calcium,Total 9.2 mg/dL (8.5-10.1); Chloride 96 mmol/L (98-107); Creatinine, Serum 6.18 mg/dL (0.55-1.02); EST Glomerular Filtration Rate 7 mL/min (>60); Est Glom Filt Rate - Afr Amer 9 mL/min (>60); Estimated Creatinine Clearance 6.61 ml/min; Glucose 69 mg/dL (74-106); Potassium 5.3 mmol/L (3.5-5.1); Protein, Total 6.3 g/dL (6.4-8.2); Sodium Level 127 mmol/L (136-145)
[2021-07-16] MEDS: Multivitamins,Ther W-Minerals Tablet 1 TABLET PO (08:21)
[2021-07-16] MEDS: Rivaroxaban 15 MG Tablet PO (08:22)
[2021-07-16] MEDS: Magnesium Chloride 64 MG Delay Rel.Tablet 128 MG PO (08:22)
[2021-07-16] MEDS: 0.9% Normal Saline 1,000 ML 100 ML IV (08:34)
[2021-07-16] MEDS: Menthol/Lanolin/Calamine/Znox 113 GM Tube 1 APPLIC TOPICAL ×3 (08:34→19:39)
--- NOTE | 2021-07-16 12:11 | PCM.RX.CS ---
Consult Pharmacy has been consulted to manage selected antiobiotic: Vancomycin Type of Consult: New start Suspected Infection: Skin/Soft tissue Prior Doses of Antibiotics Received/Current Regimen: Received 1x dose of 1gm iv on 07.15.21. Labs: Sodium 127 mmol/L (136-145) L 07/16/21 05:20 Potassium 5.3 mmol/L (3.5-5.1) H 07/16/21 05:20 Chloride 96 mmol/L (98-107) L 07/16/21 05:20 Carbon Dioxide 15.0 mmol/L (21.0-32.0) L 07/16/21 05:20 Anion Gap 16 (5-15) H 07/16/21 05:20 BUN 99 mg/dL (7-18) H 07/16/21 05:20 Creatinine 6.18 mg/dL (0.55-1.02) H 07/16/21 05:20 Est GFR (MDRD) Af Amer 9 mL/min (>60) L 07/16/21 05:20 Est GFR (MDRD) Non-Af 7 mL/min (>60) L 07/16/21 05:20 BUN/Creatinine Ratio 16.0 RATIO (10-20) 07/16/21 05:20 Glucose 69 mg/dL (74-106) L 07/16/21 05:20 Microbiology: Microbiology 07/15/21 18:38 Stool Enteric Bacteriology - Final 07/15/21 18:38 Stool C. difficile GDH Antigen & Toxins - Final 07/15/21 18:38 Stool C. difficile DNA Amplification - Final 07/15/21 17:45 Nasal Secretion SARS-CoV-2 Antigen (Rapid) - Final Weight used for dosin.7 kg Estimated Creatinine Clearance: ~7ml/min Goal Trough: 15-20 mcg/mL Pharmacy Plan for Drug Dosing: Ordered a random level for today 24hrs after initial dose given. Pharmacy Service will continue to monitor and adjust dosing as required. Follow-Up Labs: Trough Vancomycin - random level 07.16.21 @1900
--- NOTE | 2021-07-16 12:44 | PCM.PN.HOSP ---
Documented by User: Teodora Parsons NP, BEE ROBBER-C 07/16/21 13:22 Subjective Subjective Patient seen and examined. She denies further diarrhea. States she wants to go home. later presented at bedside and concern for taking patient home. Anticipate placement. Patient denies other symptoms or complaints. Objective Data Objective Data Vital Signs: Vital Signs Temp Pulse Resp BP Pulse Ox 97.5 F L 89 16 90/55 L 94 07/16/21 10:30 07/16/21 10:30 07/16/21 10:30 07/16/21 10:30 07/16/21 10:30 Oxygen Delivery Method Room Air Weight: 131 lb 9.855 oz Body Mass Index (BMI) 23.3 Intake & Output: Intake and Output for Last 24 Hours 07/14/21 07/15/21 07/16/21 23:59 23:59 23:59 Intake Total 2300 / 2300 1200 / 1200 Output Total 200 / 200 Balance 2300 / 2100 1000 / 1000 Lab / Micro Data Result Diagrams: 07/16/21 05:20 07/16/21 05:20 Labs: Laboratory Results - last 24 hr 07/15/21 17:48: WBC 17.9 H, RBC 5.10, Hgb 15.4 H, Hct 46.2, MCV 90.6, MCH 30.2, MCHC 33.3, RDW Std Deviation 47.8 H, RDW Coeff of Malini 14.4, Plt Count 416, MPV 8.3, Immature Gran % (Auto) 1.700 H, Neut % (Auto) 91.5 H, Lymph % (Auto) 3.5 L, [place] % (Auto) 3.0, Eos % (Auto) 0.1, Baso % (Auto) 0.2, Absolute Neuts (auto) 16.4 H, Absolute Lymphs (auto) 0.62 L, Nucleated RBC % 0 07/15/21 17:48: PT 13.7, INR 1.1, APTT 29.7 07/15/21 17:48: Sodium 122 L, Potassium 5.8 H, Chloride 90 L, Carbon Dioxide 17.0 L, Anion Gap 15, BUN 103 H*, Creatinine 7.03 H, Estim Creat Clear Calc 5.81, Est GFR (MDRD) Af Amer 7 L, Est GFR (MDRD) Non-Af 6 L, BUN/Creatinine Ratio 14.7, Glucose 87, Calcium 10.4 H, Total Bilirubin 0.70, AST 22, ALT 19, Alkaline Phosphatase 110, Troponin I High Sens 25, Total Protein 8.1, Albumin 3.2, Globulin 4.9 H, Albumin/Globulin Ratio 0.7 L 07/15/21 17:48: Lactic Acid 1.7 07/15/21 17:48: Phosphorus 6.6 H, Magnesium 3.4 H 07/15/21 17:48: ESR 88 H 07/15/21 17:48: C-React Prot Ext Range 39.50 H 07/15/21 18:25: Urine Color Yellow, Urine Clarity Clear, Urine pH 5.0, Ur Specific [place] 1.025, Urine Protein 15 H, Urine Glucose (UA) Normal, Urine Ketones 5 H, Urine Occult Blood Negative, Urine Nitrite Negative, Urine Bilirubin 3 H, Urine Urobilinogen Normal, Ur Leukocyte Esterase 100 H, Urine RBC 0 SEEN, Urine WBC 0-5 SEEN, Ur Squamous Epith Cells 0 SEEN, Urine Bacteria 0 SEEN, Urine Mucus 0 SEEN 07/16/21 00:50: Sodium 126 L, Potassium 5.1, Chloride 96 L, Carbon Dioxide 15.0 L, Anion Gap 15, BUN 103 H*, Creatinine 6.34 H, Estim Creat Clear Calc 6.44, Est GFR (MDRD) Af Amer 8 L, Est GFR (MDRD) Non-Af 7 L, BUN/Creatinine Ratio 16.2, Glucose 84, Calcium 9.6 07/16/21 01:40: Ur Random Sodium < 5, Urine Creatinine 159.00 07/16/21 05:20: WBC 16.6 H, RBC 4.22, Hgb 12.8, Hct 40.9, MCV 96.9 D, MCH 30.3, MCHC 31.3 L D, RDW Std Deviation 52.2 H, RDW Coeff of [place] 14.6, Plt Count 335, MPV 8.5, Immature Gran % (Auto) 1.300 H, Neut % (Auto) 90.2 H, Lymph % (Auto) 3.9 L, [place] % (Auto) 4.2, Eos % (Auto) 0.2, Baso % (Auto) 0.2, Absolute Neuts (auto) 14.9 H, Absolute Lymphs (auto) 0.64 L, Nucleated RBC % 0 07/16/21 05:20: Sodium 127 L, Potassium 5.3 H, Chloride 96 L, Carbon Dioxide 15.0 L, Anion Gap 16 H, BUN 99 H, Creatinine 6.18 H, Estim Creat Clear Calc 6.61, Est GFR (MDRD) Af Amer 9 L, Est GFR (MDRD) Non-Af 7 L, BUN/Creatinine Ratio 16.0, Glucose 69 L, Calcium 9.2, Total Bilirubin 0.60, AST 21, ALT 14, Alkaline Phosphatase 87, Total Protein 6.3 L, Albumin 2.3 L, Globulin 4.0, Albumin/Globulin Ratio 0.6 L Micro: Microbiology 07/15/21 18:38 Stool Enteric Bacteriology - Final 07/15/21 18:38 Stool C. difficile GDH Antigen & Toxins - Final 07/15/21 18:38 Stool C. difficile DNA Amplification - Final 07/15/21 17:45 Nasal Secretion SARS-CoV-2 Antigen (Rapid) - Final Radiography Diagnostic Testing: Radiology Impression Foot X-Ray 07/15/21 17:42 IMPRESSION: Soft tissue swelling. No destructive bony process. Electronically Signed: Jason Colunga MD ([facility]) at 19:48 EDT , Service support , Foot X-Ray 07/15/21 17:42 IMPRESSION: No destructive bony process. Soft tissue swelling. Electronically Signed: Jason Colunga MD ([facility]) at 19:47 EDT , Service support , Chest X-Ray 07/15/21 18:50 IMPRESSION: No airspace consolidation or pleural effusion. Stable. Left perihilar mass. Electronically Signed: Jason Colunga MD ([facility]) at 19:46 EDT , Service support , Physical Exam Const alert, oriented x3 and no apparent distress Constitutional Narrative: Appears unkempt Orientation / Consciousness: awake, oriented to person, oriented to place and oriented to time Nutritional Appearance: cachectic HEENT normocephalic Mouth: dry mucous membranes Eyes PERRL, EOMs intact bilaterally and conjunctivae normal Neck no lymphadenopathy Resp normal respiratory effort and clear to auscultation bilaterally Cardio regular rate, regular rhythm and no murmurs Peripheral Pulses: pulses 2+ throughout GI normal to inspection, nondistended, normoactive bowel sounds, non-tender and non-distended Extremity normal to inspection Skin no rashes or lesions noted Skin Narrative: Bilateral lower extremity significant excoriation with stasis ulcerations and oozing. Patient has buttock wound as well, dressing intact, did not examine at this time. Lesions: no lesions Rashes: no rashes Trauma: no lacerations or abrasions Neuro CN's II-XII intact bilaterally, no focal motor deficits, no sensory deficits noted and deep tendon reflexes 2+ bilaterally Psych Mood & Affect: flat affect Assessment & Plan Assessment/Plan (1) Failure to thrive: PLAN: 1. Severe diarrhea, worsening debility-diarrhea has since resolved. C. difficile antigen positive however toxin negative. Given intractable diarrhea prior to admission, will complete course of oral vancomycin. 2. Acute kidney injury-suspect secondary to GI loss. IV fluids, trend BMP. Nephrology consulted 3. Failure to thrive-PT/OT. Case management consult. Will likely need placement. 4. Acute on chronic hyponatremia/SIADH-improving with IV fluids. Trend BMP. 5. Chronic lower extremity venous stasis ulcerations/peripheral vascular disease/lymphedema-doubt bilateral cellulitis. IV cefazolin empirically. Obtain cultures. Wound RN consult for wound care. Patient has chronic buttock wound as well. Frequent position changes. Patient noted to have maggots on initial evaluation of lower extremity ulcerations. 6. Severe protein calorie malnutrition-as evidenced by muscle and fat loss, poor oral intake. Dietitian consulted. 7. Chronic heart failure with reduced ejection fraction/nonischemic cardiomyopathy-no acute failure. 8. Chronic atrial fibrillation-on Xarelto, carvedilol. 9. Chronic COPD with chronic hypoxic respiratory failure-continue supplemental oxygen to maintain O2 above 90%. As needed albuterol aerosol. 10. History of breast cancer/non-small cell lung cancer 11. Tobacco dependence-encouraged cessation DVT prophylaxis- xarelto This patient was seen by RAFAEL Le under the supervision of Dr. Yeh. Documented by User: Dr. Rohan Yeh MD 07/16/21 13:49 Objective Data Lab / Micro Data Result Diagrams: 07/16/21 05:20 07/16/21 05:20 Assessment & Plan Addt'l Comments This patient was seen in conjunction with RAFAEL Le . I have independently interviewed and examined the patient and reviewed pertinent historical, laboratory, and other data. Please refer to RAFAEL Le note for details of this patient's presentation, findings, and recommendations. I have reviewed RAFAEL Le note and concur with documented findings. In brief, patient is a 75-year-old lady brought to the emergency department with progressive generalized weakness and diarrhea. Patient was found to have positive C. difficile antigen but negative toxin however given patient's diarrhea was empirically started on vancomycin Physical Examination: GENERAL: cooperative but frail looking HEENT: Atraumatic; EYES; Anicteric, Normal Conjunctiva NECK; supple, normal thyroid, RESPIRATORY: Diminished to auscultation CARDIOVASCULAR: Regular S1 S2, GI: soft, normoactive bowel sounds, NEURO: Awake; no lateralizing signs. SKIN: No Rash PSYCH; Flat affect Assessment: 1. Diarrhea with positive C. difficile antigen negative toxin 2. Acute kidney injury 3. Hypovolemic hyponatremia (superimposed on chronic hyponatremia) 4. Severe protein calorie malnutrition 5. Chronic congestive heart failure with reduced ejection fraction 6. Hyperkalemia 7. Paroxysmal A. fib 8. COPD with chronic hypoxic respite failure 9. History of breast CA currently remission 10. History of non-small cell lung CA 11. Tobacco dependence 12. Bilateral venous stasis 13. Physical deconditioning 14. DVT prophylaxis Recommendations: 1. I have discussed the results of my overview and impressions with the patient 2. Options for management were reviewed Charges/Coding Visit Charges Inpatient E&M: 09707 Subs Hosp L3
--- NOTE | 2021-07-16 18:26 | PCM.CONS.R ---
Assessment & Plan Assessment/Plan (1) ZA (acute kidney injury): PLAN: The patient has no prior history of CKD. Serum creatinine was 0.44 mg/dL in May 2021. ZA is secondary to volume depletion from poor oral intake and ongoing diarrhea causing prerenal azotemia. Urine sodium on presentation was less than 5 mmol/L. Fractional excretion of sodium was less than 1%. There is risk that the patient could progress to ischemic ATN as well. Low suspicion for other causes of ZA at this time. However, I would still check renal ultrasound to make sure were not missing obstructive causes for ZA. I agree with volume repletion. However, I would change IV fluid to LR instead of normal saline. Normal saline can exacerbate acidosis which can lead to worsening hyperkalemia. Although LR has potassium in his component, there is only 4 mEq of potassium per liter of LR. Risk of worsening hyperkalemia is actually higher with ongoing use of saline at this point. There is no urgent need for kidney replacement therapy today. Current medications are reviewed and are appropriately dosed for the patient's estimated creatinine clearance. Recheck renal function tomorrow. (2) Hyponatremia: PLAN: The patient has a history of chronic hyponatremia which was attributed to SIADH. Her baseline serum sodium has been around 129 to 131 mmol/L. Acute worsening of hyponatremia is likely due to decreased effective blood volume. The patient is not overly symptomatic from hyponatremia. There is no need for 3% saline. We will continue to monitor serum sodium. (3) Metabolic acidosis: PLAN: Serum bicarbonate level is 15 mmol/L. The patient also has an anion gap of 16. Acidosis is likely due to acute kidney injury along with diarrhea. As mentioned above, I will switch maintenance IV fluid to LR which is less likely to exacerbate acidosis than normal saline (4) Hyperkalemia: PLAN: The patient has mild hyperkalemia. Potassium level is 5.3 mEq/L today. Hyperkalemia is likely due to acute kidney injury along with acidosis. Continue treatment of ZA with volume repletion. Improving renal function and acidosis should help attenuate further rise in potassium. (5) Failure to thrive: PLAN: Management as per hospital medicine service. HPI Consult Data Date of Consult: 07/16/21 HPI Narrative Reason for Consultation: Acute kidney injury HPI Narrative: The patient is a 75-year-old woman with past history of hypertension, atrial fibrillation, heart failure with reduced ejection fraction secondary to nonischemic cardiomyopathy, COPD, non-small cell lung cancer, history of breast cancer, PAD, and chronic lymphedema. The patient has been seen by our service in the past for chronic hyponatremia which is believed to be secondary to SIADH. Her baseline serum sodium has been around 129 to 131 mmol/L. The patient presented from home on 07/15/2021 with 1 week history of worsening fatigue, malaise and inability to care for herself. The patient also had diarrhea for about 1 week prior to admission as well. During the work-up in the emergency department, the patient was found to have a new onset acute kidney injury with serum creatinine of 7.03 mg/dL on 07/15/2021. Prior baseline serum creatinine has been normal. Her serum creatinine was 0.44 mg/dL as recently as 05/24/2021. The patient was started on IV fluid for volume resuscitation. Currently, she denies chest pain or shortness of breath. There has been no nausea or vomiting today. Her appetite remains poor. There is no diarrhea today. The patient denies lower urinary tract symptoms prior to admission. There has been no gross hematuria or dysuria. The patient denies chronic use of NSAIDs prior to admission. Home medication list was reviewed. She was not on NSAIDs or RASS inhibitor. [facility] Medical History (Updated 07/16/21 @ 18:[address] Flako May MD) Acute on chronic systolic (congestive) heart failure Acute on chronic systolic heart failure Bilateral leg ulcer COPD (chronic obstructive pulmonary disease) Debility Dependence on supplemental oxygen Dependent edema Essential (primary) hypertension History of breast cancer Hypertension Hyponatremia Hyponatremia Immobility Irregular heart beat Leg edema Leg edema, left Leg edema, right Leg swelling Lumbar disc disease Lung mass Lymphangitis of lower extremity Lymphedema of both lower extremities New onset A. fib with RVR Nicotine dependence Non-ischemic cardiomyopathy Non-rheumatic tricuspid valve insufficiency Nonrheumatic mitral (valve) insufficiency On home oxygen therapy Osteoporosis Paroxysmal atrial fibrillation Pressure sore on buttocks Secondary pulmonary arterial hypertension Smoker Suspected chronic obstructive pulmonary disease based on initial evaluation Thrush, oral Tobacco abuse Tobacco abuse counseling Ulcer of left lower extremity with fat layer exposed Wound cellulitis Wound of lower extremity Home Medications [id number] 1 tab PO DAILY 10/05/19 [History Last Taken 07/15/21 1] carvedilol 25 mg PO BID 07/12/20 [History Last Taken 07/14/21 25 mg] fluticasone propion-salmeterol 2 puff INHALATION BID 07/12/20 [History Last Taken 05/11/21] Spiriva Respimat 2 inh INHALATION BID 05/12/21 [History Last Taken 05/11/21] Xarelto 20 mg PO DAILY 05/12/21 [History Last Taken 07/14/21 20] magnesium oxide 400 mg PO DAILY 05/12/21 [History Last Taken 05/11/21] ferrous sulfate [FeroSul] 325 mg PO QODAY@1200 05/23/21 [History Last Taken Unknown] acetaminophen 1,000 mg PO Q6H PRN PRN #0 tab 05/26/21 [Rx Last Taken 07/15/21 500 mg] amoxicillin-pot clavulanate [Augmentin] 1 tab PO BID 4 Days #8 tab 05/26/21 [Rx Last Taken Unknown] Allergy/AdvReac Type Severity Reaction Status Date / Time albuterol sulfate Allergy Swelling Verified 07/15/21 17:19 [From Combivent] ipratropium bromide Allergy Swelling Verified 07/15/21 17:19 [From Combivent] metoprolol Allergy Laryngospas Verified 07/15/21 17:19 ms Sulfa (Sulfonamide Allergy Rash Verified 07/15/21 17:19 Antibiotics) beclomethasone [From Qvar] AdvReac COUGHING Verified 07/15/21 17:19 benzalkonium chloride AdvReac Rash Verified 07/15/21 17:19 [From Merthiolate (benzalkonium)] codeine AdvReac Chest Verified 07/15/21 17:19 tightness doxycycline AdvReac Abd Verified 07/15/21 17:19 cramps/diarrhea formoterol fumarate AdvReac PT UNSURE Verified 07/15/21 17:19 [From Dulera] OF REACTION hydrochlorothiazide AdvReac PT UNSURE Verified 07/15/21 17:19 OF REACTION ibuprofen [From Advil] AdvReac PT UNSURE Verified 07/15/21 17:19 OF REACTION iodine AdvReac Itching Verified 07/15/21 17:19 merbromin AdvReac PT UNSURE Verified 07/15/21 17:19 OF REACTION mometasone furoate AdvReac PT UNSURE Verified 07/15/21 17:19 [From Dulera] OF REACTION oseltamivir [From Tamiflu] AdvReac uterine Verified 07/15/21 17:19 pain prednisone AdvReac Abd Verified 07/15/21 17:19 cramps/diarrhea PLASTIC TAPE Allergy Rash Uncoded 07/15/21 17:19 Family History (Updated 07/15/21 @ 21:[address] Jessica Plaza MD) Father Emphysema of lung Sister Cancer uterine cancer Mother Hypertension Surgical History History of left heart catheterization (11/09/19) History of left mastectomy History of lumpectomy of right breast History of tubal ligation polyp removal S/P lumpectomy, right breast Social History (Updated 07/15/21 @ 21:[address] Jessica Plaza MD) household members: spouse Smoking Status: Current every day smoker tobacco type: cigarettes Smoking packs per day: 0.5 Smoking cigarettes per day: 10.0 second hand exposure: Yes alcohol intake: current alcohol intake frequency: 0-2 drinks per day Alcohol type: wine substance use type: does not use caffeine: No what type of physical activity do you participate in: none seatbelt use: always do you feel safe at home: Yes ROS ROS Narrative 10 out of 10 review of system was done. Review of system was otherwise noncontributory aside from HPI. Physical Exam Narrative General: Ill-appearing woman who appears to be older than stated age. HEENT: Normocephalic, atraumatic. Mucous membrane is dry. There is no mucosal erythema. PERRLA, EOMI. Neck: Supple, no JVD or bruit. Heart: Irregularly irregular S1-S2. There is no rubs or murmurs. Lungs: Clear to auscultation anteriorly. Abdomen: Normal bowel sound, soft, nontender, no guarding or rebound. Extremity: There is chronic appearing erythema and 1+ swelling of the lower extremities bilaterally. There is no pain on palpation. There is no crepitus. Passive range of motion is full. Neurologic: There is no focal neurologic deficit. Psychiatric: Affect is flat. Medical Records Data Medical Nutrition Assessment Dietitian: Malnutrition Criteria Met Start: 07/16/21 14:48 Freq: Status: Active Protocol: Document 07/16/21 14:48 BP (Rec: 07/16/21 14:48 BP [id number]) Nutrition Malnutrition Evidence of Malnutrition Exists Yes Malnutrition (severe): Acute Illness/Injury Evidenced By Suboptimal Energy Intake ( Severe),Weight Loss (Severe), Physical Changes (Moderate) Clinical Problem Acute Disease or Injury Related Malnutrition Etiology Severe malnutrition in the context of acute illness/ injury related to inadequate oral intake, unintentional wt loss, & increased nutrition needs Signs/Symptoms as evidenced by pt w/ 17% wt loss x 1 1/2 month, pt report pt with poor intake per comments pt consuming </= 50% energy intake compared to pt estimated nutrition needs x >/=5 days, pt with no PO intake x 3 day prior to admission, pt w/ increased protein needs d/t lower extremity wounds, and pt w/ moderates muscle/fat wasting observed in temporal & orbital regions. Status Active Problem Recommendation Dietitian Recommendations/Changes Will liberalize pt diet to regular no added salt d/t poor PO intake & s/s of malnutrition. Will provide ONS: ensure enlive 120 ml w/ medpass, Pj 1 pkt BID w/ B&L, and ensure pudding or magic cup w/ pt meals. Lab / Micro Data Result Diagrams: 07/16/21 05:20 07/16/21 05:20 Labs: Laboratory Results - last 24 hr 07/15/21 17:48: Sodium 122 L, Potassium 5.8 H, Chloride 90 L, Carbon Dioxide 17.0 L, Anion Gap 15, BUN 103 H*, Creatinine 7.03 H, Estim Creat Clear Calc 5.81, Est GFR (MDRD) Af Amer 7 L, Est GFR (MDRD) Non-Af 6 L, BUN/Creatinine Ratio 14.7, Glucose 87, Calcium 10.4 H, Total Bilirubin 0.70, AST 22, ALT 19, Alkaline Phosphatase 110, Troponin I High Sens 25, Total Protein 8.1, Albumin 3.2, Globulin 4.9 H, Albumin/Globulin Ratio 0.7 L 07/15/21 17:48: Lactic Acid 1.7 07/15/21 17:48: Phosphorus 6.6 H, Magnesium 3.4 H 07/15/21 17:48: ESR 88 H 07/15/21 17:48: C-React Prot Ext Range 39.50 H 07/15/21 18:25: Urine Color Yellow, Urine Clarity Clear, Urine pH 5.0, Ur Specific [place] 1.025, Urine Protein 15 H, Urine Glucose (UA) Normal, Urine Ketones 5 H, Urine Occult Blood Negative, Urine Nitrite Negative, Urine Bilirubin 3 H, Urine Urobilinogen Normal, Ur Leukocyte Esterase 100 H, Urine RBC 0 SEEN, Urine WBC 0-5 SEEN, Ur Squamous Epith Cells 0 SEEN, Urine Bacteria 0 SEEN, Urine Mucus 0 SEEN 07/16/21 00:50: Sodium 126 L, Potassium 5.1, Chloride 96 L, Carbon Dioxide 15.0 L, Anion Gap 15, BUN 103 H*, Creatinine 6.34 H, Estim Creat Clear Calc 6.44, Est GFR (MDRD) Af Amer 8 L, Est GFR (MDRD) Non-Af 7 L, BUN/Creatinine Ratio 16.2, Glucose 84, Calcium 9.6 07/16/21 01:40: Ur Random Sodium < 5, Urine Creatinine 159.00 07/16/21 05:20: WBC 16.6 H, RBC 4.22, Hgb 12.8, Hct 40.9, MCV 96.9 D, MCH 30.3, MCHC 31.3 L D, RDW Std Deviation 52.2 H, RDW Coeff of Malini 14.6, Plt Count 335, MPV 8.5, Immature Gran % (Auto) 1.300 H, Neut % (Auto) 90.2 H, Lymph % (Auto) 3.9 L, [place] % (Auto) 4.2, Eos % (Auto) 0.2, Baso % (Auto) 0.2, Absolute Neuts (auto) 14.9 H, Absolute Lymphs (auto) 0.64 L, Nucleated RBC % 0 07/16/21 05:20: Sodium 127 L, Potassium 5.3 H, Chloride 96 L, Carbon Dioxide 15.0 L, Anion Gap 16 H, BUN 99 H, Creatinine 6.18 H, Estim Creat Clear Calc 6.61, Est GFR (MDRD) Af Amer 9 L, Est GFR (MDRD) Non-Af 7 L, BUN/Creatinine Ratio 16.0, Glucose 69 L, Calcium 9.2, Total Bilirubin 0.60, AST 21, ALT 14, Alkaline Phosphatase 87, Total Protein 6.3 L, Albumin 2.3 L, Globulin 4.0, Albumin/Globulin Ratio 0.6 L Micro: Microbiology 07/15/21 18:25 Urine, Catheterized Urine Culture - Preliminary GNR lactose director of respiratory therapy 07/15/21 18:38 Stool Enteric Bacteriology - Final 07/15/21 18:38 Stool C. difficile GDH Antigen & Toxins - Final 07/15/21 18:38 Stool C. difficile DNA Amplification - Final 07/15/21 17:45 Nasal Secretion SARS-CoV-2 Antigen (Rapid) - Final Radiology Impression Foot X-Ray 07/15/21 17:42 IMPRESSION: Soft tissue swelling. No destructive bony process. Electronically Signed: Jason Colunga MD ([facility]) at 19:48 EDT , Service support , Foot X-Ray 07/15/21 17:42 IMPRESSION: No destructive bony process. Soft tissue swelling. Electronically Signed: Jason Colunga MD (Brooks) at 19:47 EDT , Service support , Chest X-Ray 07/15/21 18:50 IMPRESSION: No airspace consolidation or pleural effusion. Stable. Left perihilar mass. Electronically Signed: Jason Colunga MD (Brooks) at 19:46 EDT , Service support ,
[2021-07-16] MEDS: Vancomycin 125 MG/5 ML Susp PO.SYRINGE PO ×2 (18:45→23:54)
[2021-07-16] MEDS: Lactated Ringers 1,000 ML 100 ML IV (19:39)
[2021-07-16 20:52] LABS: Vancomycin, Random Level 12.8 ug/mL (0.0-15.0)
[2021-07-16] MEDS: Vancomycin IV 1,000 MG/200 ML BAG 200 MG IV (23:51)
[2021-07-17] VITALS (13 sets, daily range): BP systolic 84–101; BP diastolic 47–86; PULSE 73–111; RESP 16–18; TEMP 36.3–36.9; O2SAT 94–97
--- NOTE | 2021-07-17 | US_ITS ---
STUDY: RENAL ULTRASOUND - COMPLETE REASON FOR EXAM: Female, 75 years old. ZA TECHNIQUE: Ultrasound evaluation of the kidneys was performed with real-time and static anderson-scale imaging. COMPARISON: None. FINDINGS: RIGHT KIDNEY: Normal location of the right kidney, which is normal in size. The right kidney measures 9.2 cm x 5.4 cm x 4.8 cm. There is a normal cortex of the right kidney. The renal cortex measures 1.1 cm. There is no right renal mass or cyst. There are no right renal calculi. There is no right hydronephrosis. DISTAL RIGHT URETER: There is non-visualization of the distal right ureter. There is no demonstrated right ureterovesical junction calculus. There is no demonstrated right ureteral jet. LEFT KIDNEY: Normal location of the left kidney, which is normal in size. The left kidney measures 9.8 cm x 5.9 cm x 5.3 cm. There is a normal cortex of the left kidney. The renal cortex measures 1.1 cm. There is no left renal mass or cyst. There are no left renal calculi. There is no left hydronephrosis. DISTAL LEFT URETER: There is non-visualization of the distal left ureter. There is no demonstrated left ureterovesical junction calculus. There is no demonstrated left ureteral jet. BLADDER: A CASTRO catheter is seen within the urinary bladder. The bladder is almost empty. This limits the evaluation of the bladder. US/Kidney and Bladder IMPRESSION: Normal ultrasound of the kidneys. Electronically Signed: Kenneth Salinas MD at 10:02 EDT , Service support ,
--- NOTE | 2021-07-17 01:22 | PHA.PHARE_ITS ---
Consult Pharmacy has been consulted to manage selected antiobiotic: Vancomycin Type of Consult: Follow-up Labs: Sodium 127 mmol/L (136-145) L 07/16/21 05:20 Potassium 5.3 mmol/L (3.5-5.1) H 07/16/21 05:20 Chloride 96 mmol/L (98-107) L 07/16/21 05:20 Carbon Dioxide 15.0 mmol/L (21.0-32.0) L 07/16/21 05:20 Anion Gap 16 (5-15) H 07/16/21 05:20 BUN 99 mg/dL (7-18) H 07/16/21 05:20 Creatinine 6.18 mg/dL (0.55-1.02) H 07/16/21 05:20 Est GFR (MDRD) Af Amer 9 mL/min (>60) L 07/16/21 05:20 Est GFR (MDRD) Non-Af 7 mL/min (>60) L 07/16/21 05:20 BUN/Creatinine Ratio 16.0 RATIO (10-20) 07/16/21 05:20 Glucose 69 mg/dL (74-106) L 07/16/21 05:20 Random Vancomycin 12.8 ug/mL (0.0-15.0) 07/16/21 20:12 Microbiology: Microbiology 07/15/21 18:25 Urine, Catheterized Urine Culture - Preliminary GNR lactose senior clinical consultant 07/15/21 18:38 Stool Enteric Bacteriology - Final 07/15/21 18:38 Stool C. difficile GDH Antigen & Toxins - Final 07/15/21 18:38 Stool C. difficile DNA Amplification - Final 07/15/21 17:45 Nasal Secretion SARS-CoV-2 Antigen (Rapid) - Final Goal Trough: 15-20 mcg/mL Pharmacy Plan for Drug Dosing: Pharmacy Service will continue to monitor and adjust dosing as required. RANDOM LEVEL 12.8. PER PROTOCOL, GIVE 1GM X1 AND RECHECK RANDOM LEVEL 07/18 @ 0600 Follow-Up Labs: Trough Vancomycin Labs to be done on [date and time ordered]: 07/18 @ 0600 RANDOM
[2021-07-17] MEDS: Vancomycin 125 MG/5 ML Susp PO.SYRINGE PO ×4 (05:25→23:16)
[2021-07-17 05:51] LABS: Absolute Lymphocyte Count 0.53 X10^3/uL (0.83-4.51); Absolute Neutrophil Count 14.9 X10^3/uL (2.0-7.7); Basophil# 0.02 X10^3/uL; Basophil% 0.1 % (0-1); Eosinophil# 0.14 X10^3/uL; Eosinophils% 0.9 % (0-5); Hemoglobin 12.2 g/dL (12.0-15.0); Lymphocyte # 0.53 X10^3/ul (0.83-4.51); Lymphocyte % 3.2 % (19-41); Mean Corp Hgb Conc 33.9 g/dL (32-36); Mean Corpuscular Hgb 30.9 pg (27.0-32.0); Mean Corpuscular Volume 91.1 fL (81-99); Mean Platelet Vol. 8.5 fl (6.2-12.0); Monocyte# 0.77 X10^3/uL; Monocyte% 4.7 % (0-10); NRBC Flagged by Analyzer 0 % (0-5); Neutrophil # 14.85 X10^3/uL (2.7-7.7); Neutrophil % 90.2 % (47-70); POSITIVE DIFFERENTIAL YES; Platelet Count 295 K/mm3 (150-450); RBC Distribution Width CV 14.8 % (11.6-14.6); RBC Distribution Width SD 49.3 fl (35.1-43.9); Red Blood Count 3.95 M/mm3 (4.2-5.4); White Blood Count 16.5 K/mm3 (4.4-11.0)
[2021-07-17 06:33] LABS: Anion Gap 12 (5-15); BUN 80 mg/dL (7-18); BUN/Creat Ratio 21.6 RATIO (10-20); Calcium,Total 9.4 mg/dL (8.5-10.1); Chloride 103 mmol/L (98-107); Creatinine, Serum 3.71 mg/dL (0.55-1.02); EST Glomerular Filtration Rate 13 mL/min (>60); Est Glom Filt Rate - Afr Amer 15 mL/min (>60); Glucose 84 mg/dL (74-106); Potassium 4.2 mmol/L (3.5-5.1); Sodium Level 133 mmol/L (136-145)
[2021-07-17] MEDS: Lactated Ringers 1,000 ML 100 ML IV ×2 (06:41→22:31)
[2021-07-17 06:55] LABS: Differential Indicated SCAN CRITERIA MET
[2021-07-17 07:46] LABS: Platelet Estimate ADEQUATE (ADEQ); Red Cell Morphology NORM C+C NORMAL (NORM C&C)
[2021-07-17] MEDS: 0.9% Saline Lock 10 ML Syringe IV ×2 (09:07→11:29)
[2021-07-17] MEDS: Rivaroxaban 15 MG Tablet PO (09:07)
[2021-07-17] MEDS: Menthol/Lanolin/Calamine/Znox 113 GM Tube 1 APPLIC TOPICAL ×4 (09:08→21:29)
[2021-07-17] MEDS: Magnesium Chloride 64 MG Delay Rel.Tablet 128 MG PO (09:08)
[2021-07-17] MEDS: Multivitamins,Ther W-Minerals Tablet 1 TABLET PO (09:08)
--- NOTE | 2021-07-17 10:47 | CASEMGMT ---
Assessment- SW completed assessment with patient. Her was at bedside. Living situation- Patient lives with her in a 1 story home with 4 entry steps. PCP: Dr Sanders Specialists: None Pharmacy: [facility]: walker, grab bars, and wheelchair ADL's/IADL's: Per patient she bathes herself, she uses a walker to get around, she said she toilets herself and manages her own meds. Patient's spoke up and said he is doing just about everything for her. Past SNF/rehab: Yes. [facility] TCU in May Past HH: Yes. [facility] LW: Yes POA: Yes and on file at [facility]. Her is her Healthcare POA. Plan: SW brought up to patient and her discharge planning. SW mentioned that patient did not do well with therapy. SW said it looks like normally she can walk a little, but yesterday she could not and it took 2 people. Patient's said he is doing everything for her. SW asked if he feels it is too much for him and should patient go to a SNF. He said they likely are not going to do any better anywhere else. He said everyone is understaffed. He retired years ago and has been taking care of her ever since. He prefers to take her home with home health. He said he would need transportation set up to get patient home. They have a ramp entrance. SW called [facility] and made a referral. Await response. Myrtle ERICKSON MSW
[2021-07-17] MEDS: 0.9% Normal Saline 1,000 ML 999 ML IV (11:30)
[2021-07-17] MEDS: Ferrous Sulfate 325 MG Tablet PO (11:34)
--- NOTE | 2021-07-17 12:41 | CASEMGMT ---
REUBEN received a return call from Rachele with [facility] and they can accept patient at discharge. REUBEN will notify patient and her . REUBEN will also follow up with Adult Protective Services. Myrtle ERICKSON
--- NOTE | 2021-07-17 12:47 | PN.HOSP_ITS ---
Documented by User: Teodora Parsons TEST AND TURN UP TECHNICIAN, TEST AND TURN UP TECHNICIAN-C 07/17/21 12:59 Subjective Subjective Patient seen and examined. Denies further diarrhea. States she wants to go home. Patient and declined SNF. Objective Data Objective Data Vital Signs: Vital Signs Temp Pulse Resp BP Pulse Ox 97.6 F L 94 16 87/57 L 94 07/17/21 11:15 07/17/21 11:15 07/17/21 11:15 07/17/21 11:15 07/17/21 11:15 Oxygen Delivery Method Room Air Weight: 131 lb 2.801 oz Body Mass Index (BMI) 23.3 Intake & Output: Intake and Output for Last 24 Hours 07/15/21 07/16/21 07/17/21 23:59 23:59 23:59 Intake Total 2300 / 2300 4009.5 / 4249.5 2755 / 2755 Output Total 550 / 725 175 / 175 Balance 2300 / 2100 3459.5 / 3524.5 2580 / 2580 Medical Nutrition Assessment Dietitian: Malnutrition Criteria Met Start: 07/16/21 14:48 Freq: Status: Active Protocol: Document 07/16/21 14:48 BP (Rec: 07/16/21 14:48 BP [id number]) Nutrition Malnutrition Evidence of Malnutrition Exists Yes Malnutrition (severe): Acute Illness/Injury Evidenced By Suboptimal Energy Intake ( Severe),Weight Loss (Severe), Physical Changes (Moderate) Clinical Problem Acute Disease or Injury Related Malnutrition Etiology Severe malnutrition in the context of acute illness/ injury related to inadequate oral intake, unintentional wt loss, & increased nutrition needs Signs/Symptoms as evidenced by pt w/ 17% wt loss x 1 1/2 month, pt report pt with poor intake per comments pt consuming </= 50% energy intake compared to pt estimated nutrition needs x >/=5 days, pt with no PO intake x 3 day prior to admission, pt w/ increased protein needs d/t lower extremity wounds, and pt w/ moderates muscle/fat wasting observed in temporal & orbital regions. Status Active Problem Recommendation Dietitian Recommendations/Changes Will liberalize pt diet to regular no added salt d/t poor PO intake & s/s of malnutrition. Will provide ONS: ensure enlive 120 ml w/ medpass, Pj 1 pkt BID w/ B&L, and ensure pudding or magic cup w/ pt meals. Lab / Micro Data Result Diagrams: 07/17/21 05:38 07/17/21 05:38 Labs: Laboratory Results - last 24 hr 07/16/21 20:12: Random Vancomycin 12.8 07/17/21 05:38: WBC 16.5 H, RBC 3.95 L, Hgb 12.2, Hct 36.0 L, MCV 91.1 D, MCH 30.9, MCHC 33.9 D, RDW Std Deviation 49.3 H, RDW Coeff of Malini 14.8 H, Plt Count 295, MPV 8.5, Immature Gran % (Auto) 0.900, Neut % (Auto) 90.2 H, Lymph % (Auto) 3.2 L, [place] % (Auto) 4.7, Eos % (Auto) 0.9, Baso % (Auto) 0.1, Absolute Neuts (auto) 14.9 H, Absolute Lymphs (auto) 0.53 L, Nucleated RBC % 0, Platelet Estimate ADEQUATE, RBC Morphology NORM C+C 07/17/21 05:38: Sodium 133 L, Potassium 4.2, Chloride 103, Carbon Dioxide 18.0 L , Anion Gap 12, BUN 80 H, Creatinine 3.71 H, Estim Creat Clear Calc 11.00, Est GFR (MDRD) Af Amer 15 L, Est GFR (MDRD) Non-Af 13 L, BUN/Creatinine Ratio 21.6 H , Glucose 84, Calcium 9.4 Micro: Microbiology 07/16/21 14:10 Wound - Leg, Left Gram Stain - Final 07/15/21 18:25 Urine, Catheterized Urine Culture - Final Enterobacter aerogenes 07/15/21 18:38 Stool Enteric Bacteriology - Final 07/15/21 18:38 Stool C. difficile GDH Antigen & Toxins - Final 07/15/21 18:38 Stool C. difficile DNA Amplification - Final 07/15/21 17:45 Nasal Secretion SARS-CoV-2 Antigen (Rapid) - Final Radiography Diagnostic Testing: Radiology Impression Renal Ultrasound 07/17/21 00:00 IMPRESSION: Normal ultrasound of the kidneys. Electronically Signed: Kenneth Salinas MD at 10:02 EDT , Service support , Physical Exam Const alert, oriented x3 and no apparent distress Orientation / Consciousness: awake, oriented to person, oriented to place and oriented to time Nutritional Appearance: cachectic HEENT normocephalic and moist oral mucous membranes Eyes PERRL, EOMs intact bilaterally and conjunctivae normal Neck no lymphadenopathy Resp normal respiratory effort and clear to auscultation bilaterally Cardio regular rate, regular rhythm and no murmurs Peripheral Pulses: pulses 2+ throughout GI normal to inspection, nondistended, normoactive bowel sounds, non-tender and non-distended Extremity normal to inspection Skin no rashes or lesions noted Skin Narrative: Bilateral lower extremity significant excoriation with stasis ulcerations and oozing. Patient has buttock wound as well, dressing intact, did not examine at this time. Lesions: no lesions Rashes: no rashes Trauma: no lacerations or abrasions Neuro CN's II-XII intact bilaterally, no focal motor deficits, no sensory deficits noted and deep tendon reflexes 2+ bilaterally Psych mental status grossly normal and affect normal Assessment & Plan Assessment/Plan (1) ZA (acute kidney injury): PLAN: 1. Severe diarrhea, worsening debility-diarrhea has since resolved. C. difficile antigen positive however toxin negative. Given intractable diarrhea prior to admission, will complete course of oral vancomycin. 2. Acute kidney injury-suspect secondary to GI loss. IV fluids, trend BMP. Nephrology consulted. Improving. 3. Failure to thrive-PT/OT. Case management consult. Patient and declined rehab/SNF. Plan for home with home health. Recent APS referral. 4. Acute on chronic hyponatremia/SIADH-improving with IV fluids. Trend BMP. 5. Chronic lower extremity venous stasis ulcerations/peripheral vascular disease/lymphedema-doubt bilateral cellulitis. IV cefazolin empirically. Obtain cultures. Wound RN consult for wound care. Patient has chronic buttock wound as well. Frequent position changes. Patient noted to have maggots on initial evaluation of lower extremity ulcerations. 6. Severe protein calorie malnutrition-as evidenced by muscle and fat loss, poor oral intake. Dietitian consulted. 7. Chronic heart failure with reduced ejection fraction/nonischemic cardiomyopathy-no acute failure. 8. Chronic atrial fibrillation-on Xarelto, carvedilol. 9. Chronic COPD with chronic hypoxic respiratory failure-continue supplemental oxygen to maintain O2 above 90%. As needed albuterol aerosol. 10. History of breast cancer/non-small cell lung cancer 11. Tobacco dependence-encouraged cessation DVT prophylaxis- xarelto This patient was seen by [facility] under the supervision of Dr. Ovalle. Documented by User: Dr. Gay Ovalle DO 07/17/21 14:12 Subjective Subjective This patient was seen in conjunction with Teodora Parsons NP. The following is a representation my independent history and physical examination. Please see below for addendum to the above. Patient is fairly adamant that she does not want to be placed and wants to go home. Per discussion with the she is lost a significant amount of w eight and is having significant failure to thrive. She evidently was diagnosed with lung CA previously and had been undergoing recurrent imaging to evaluate for metastatic disease but has been lost to follow-up. Her indicates that she is not eating and drinking much at home. She does admit to some depression on my questioning. Objective Data Lab / Micro Data Result Diagrams: 07/17/21 05:38 07/17/21 05:38 Physical Exam Const alert and oriented x3 Constitutional Narrative: Thin, emaciated, older white female sitting up in bed, appears comfortable, at the bedside, eye contact is poor, patient just repeatedly states she would like to go home Exam Limitations: no limitations HEENT head/scalp atraumatic and moist oral mucous membranes HEENT Narrative: Edentulous, no thrush, temporal wasting Head and Scalp: normocephalic Resp normal respiratory effort, no retractions, no use of accessory muscles and clear to auscultation bilaterally Resp Narrative: Diffusely diminished but clear Auscultation: Negative for crackles, rales, rhonchi or wheezes Cardio regular rate, regular rhythm, S1 normal heart sound, S2 normal heart sound, no murmurs, no rub, no gallops, no clicks and no JVD GI normal to inspection, nondistended, normoactive bowel sounds, soft to palpation, non-tender and non-distended Extremity Extremity Narrative: Bilateral lower extremity edema edema-trace, pitting, bilateral wounds and erythema Peripheral Pulses: Yes pulses 2+ throughout Skin skin turgor normal, no jaundice, no petechiae and no mottling Skin Narrative: Bilateral lower extremity wounds right greater than left, dressing in place Neuro oriented x3, CN's II-XII intact bilaterally, moves all extremities and no focal motor deficits Neuro Narrative: Marked generalized weakness Sensorium / Orientation: awake and alert Psych Psych Narrative: Very flat affect with depressed mood, poor eye contact and limited interaction Mood & Affect: depressed Assessment & Plan Assessment/Plan (1) ZA (acute kidney injury): (2) Bilateral leg ulcer: QUALIFIERS: Qualified Code(s): L97.921 - Non-pressure chronic ulcer of unspecified part of left lower leg limited to breakdown of skin (3) Infestation, maggot: (4) Metabolic acidosis: PLAN: Assessment: Diarrhea-now resolved C. difficile associated colitis ZA Hypotension Metabolic acidosis SIADH with chronic hyponatremia Acute on chronic bilateral lower extremity venous stasis ulcerations Chronic buttock pressure ulcer Severe malnutrition Compensated nonischemic cardiomyopathy Chronic atrial fibrillation COPD Chronic hypoxic respiratory failure History of breast cancer History of non-small cell lung CA Ongoing tobacco abuse Depression Adult failure to thrive Plan: -We will check CT of chest since patient has been lost to follow-up with regards to her lung cancer and has had significant weight loss -Consider CT abdomen and pelvis depending on results from CT chest -Start Lexapro 10 mg but watch sodium closely as patient does have a history of SIADH -Continue IV fluids -1 L bolus given this morning for hypotension -Continue to monitor CBC and BMP -Sodium is improving -Last echo done 10/05/2019 shows an EF of 37% with no regional wall motion abnormalities, moderate pulmonary hypertension with a pulmonary artery systolic pressure of 90 mmHg -Patient has required thoracentesis for recurrent pleural effusion--> suspect this may be related to her lung CA -Per discussion with her it sounds like the only treatment she did have for her lung cancer was stereotactic radiation and he reports her last follow-up chest CT was approximately 18 to 24 months ago Charges/Coding Visit Charges Inpatient E&M: 54261 Subs Hosp L2
--- NOTE | 2021-07-17 12:55 | PCS.PANDOC ---
PANDEMIC DOCUMENTATION INITIATED: Date: 07/15/2021 Time: 2019
--- NOTE | 2021-07-17 13:59 | CT_ITS ---
STUDY: CT CHEST WITHOUT CONTRAST REASON FOR EXAM: Female, 75 years old. History of the breast cancer and left mastectomy with radiation and chemotherapy. RADIATION DOSAGE (If Supplied By Facility): CTDIvol = ( 10.05 ) mGy, DLP = ( 366.66 ) mGycm TECHNIQUE: Transaxial imaging was performed without the administration of intravenous contrast material. Multiplanar coronal and sagittal images were reformatted. Individualized dose optimization techniques were used for this CT. COMPARISON: Comparison is made with prior study dated 10/07/2019. FINDINGS: The patient is status post left mastectomy. There is evidence of a 3.7cm x 2.5 cm wedge-shaped mass in the anterior aspect of the left upper lobe deep to densely sclerotic ribs. This most likely represents post radiation sclerosis of the overlying rib and possible mass in the lingular segment of the left upper lobe. This has progressed as compared to prior study. Focal infiltrates are seen at the right lung base with small bilateral pleural effusions. The right pleural effusion has improved as compared to prior study. There are calcifications of the coronary arteries. Mitral valve calcification. Normal mediastinum. Normal hilar regions. Normal unenhanced pulmonary arteries. There is atherosclerotic calcification of the aortic arch with tortuosity and elongation of the aortic arch and descending thoracic aorta. There are multi-level degenerative changes of the thoracic spine. Dextroscoliosis. There is no demonstrated abnormality of the visualized upper abdomen. CT/Chest without Contrast IMPRESSION: 3.7 cm x 2.5 cm wedge-shaped mass in the anterior aspect of the left upper lobe deep to the densely sclerotic ribs. This has progressed as compared to prior study. A neoplastic process should BE ruled out. Small bilateral pleural effusions with patchy infiltrates in the right lower lobe. Dextroscoliosis. Electronically Signed: Kenneth Salinas MD at 15:14 EDT , Service support ,
--- NOTE | 2021-07-17 15:20 | PN.RENAL_ITS ---
Subjective Subjective no new complaints Objective Data Objective Data Vital Signs: Vital Signs Temp Pulse Resp BP Pulse Ox 97.6 F L 103 H 18 92/59 L 95 07/17/21 13:05 07/17/21 13:05 07/17/21 13:05 07/17/21 13:05 07/17/21 13:05 Oxygen Delivery Method Room Air Weight: 59.5 kg Body Mass Index (BMI) 23.3 Intake & Output: Intake and Output for Last 24 Hours 07/15/21 07/16/21 07/17/21 23:59 23:59 23:59 Intake Total 2300 / 2300 4009.5 / 4249.5 2913.33 / 2913.33 Output Total 550 / 725 500 / 500 Balance 2300 / 2100 3459.5 / 3524.5 2413.33 / 2413.33 Medical Nutrition Assessment Dietitian: Malnutrition Criteria Met Start: 07/16/21 14:48 Freq: Status: Active Protocol: Document 07/16/21 14:48 BP (Rec: 07/16/21 14:48 BP [id number]) Nutrition Malnutrition Evidence of Malnutrition Exists Yes Malnutrition (severe): Acute Illness/Injury Evidenced By Suboptimal Energy Intake ( Severe),Weight Loss (Severe), Physical Changes (Moderate) Clinical Problem Acute Disease or Injury Related Malnutrition Etiology Severe malnutrition in the context of acute illness/ injury related to inadequate oral intake, unintentional wt loss, & increased nutrition needs Signs/Symptoms as evidenced by pt w/ 17% wt loss x 1 1/2 month, pt report pt with poor intake per comments pt consuming </= 50% energy intake compared to pt estimated nutrition needs x >/=5 days, pt with no PO intake x 3 day prior to admission, pt w/ increased protein needs d/t lower extremity wounds, and pt w/ moderates muscle/fat wasting observed in temporal & orbital regions. Status Active Problem Recommendation Dietitian Recommendations/Changes Will liberalize pt diet to regular no added salt d/t poor PO intake & s/s of malnutrition. Will provide ONS: ensure enlive 120 ml w/ medpass, Pj 1 pkt BID w/ B&L, and ensure pudding or magic cup w/ pt meals. Lab / Micro Data Result Diagrams: 07/17/21 05:38 07/17/21 05:38 Labs: Laboratory Results - last 24 hr 07/16/21 20:12: Random Vancomycin 12.8 07/17/21 05:38: WBC 16.5 H, RBC 3.95 L, Hgb 12.2, Hct 36.0 L, MCV 91.1 D, MCH 30.9, MCHC 33.9 D, RDW Std Deviation 49.3 H, RDW Coeff of Malini 14.8 H, Plt Count 295, MPV 8.5, Immature Gran % (Auto) 0.900, Neut % (Auto) 90.2 H, Lymph % (Auto) 3.2 L, [place] % (Auto) 4.7, Eos % (Auto) 0.9, Baso % (Auto) 0.1, Absolute Neuts (auto) 14.9 H, Absolute Lymphs (auto) 0.53 L, Nucleated RBC % 0, Platelet Estimate ADEQUATE, RBC Morphology NORM C+C 07/17/21 05:38: Sodium 133 L, Potassium 4.2, Chloride 103, Carbon Dioxide 18.0 L , Anion Gap 12, BUN 80 H, Creatinine 3.71 H, Estim Creat Clear Calc 11.00, Est GFR (MDRD) Af Amer 15 L, Est GFR (MDRD) Non-Af 13 L, BUN/Creatinine Ratio 21.6 H , Glucose 84, Calcium 9.4 Micro: Microbiology 07/16/21 14:10 Wound - Leg, Left Gram Stain - Final 07/16/21 14:10 Wound - Leg, Left Wound Culture - Preliminary Staphylococcus species GNR Poss Pseudomonas sp 07/15/21 18:25 Urine, Catheterized Urine Culture - Final Enterobacter aerogenes 07/15/21 18:38 Stool Enteric Bacteriology - Final 07/15/21 18:38 Stool C. difficile GDH Antigen & Toxins - Final 07/15/21 18:38 Stool C. difficile DNA Amplification - Final 07/15/21 17:45 Nasal Secretion SARS-CoV-2 Antigen (Rapid) - Final Radiography Diagnostic Testing: Radiology Impression Renal Ultrasound 07/17/21 00:00 IMPRESSION: Normal ultrasound of the kidneys. Electronically Signed: Kenneth Salinas MD at 10:02 EDT , Service support , Chest CT 07/17/21 13:59 IMPRESSION: 3.7 cm x 2.5 cm wedge-shaped mass in the anterior aspect of the left upper lobe deep to the densely sclerotic ribs. This has progressed as compared to prior study. A neoplastic process should BE ruled out. Small bilateral pleural effusions with patchy infiltrates in the right lower lobe. Dextroscoliosis. Electronically Signed: Kenneth Salinas MD at 15:14 EDT , Service support , Physical Exam Narrative General: Ill-appearing woman who appears to be older than stated age. HEENT: Normocephalic, atraumatic. Mucous membrane is dry. There is no mucosal erythema. PERRLA, EOMI. Neck: Supple, no JVD or bruit. Heart: Irregularly irregular S1-S2. There is no rubs or murmurs. Lungs: Clear to auscultation anteriorly. Abdomen: Normal bowel sound, soft, nontender, no guarding or rebound. Extremity: There is chronic appearing erythema and 1+ swelling of the lower extremities bilaterally. There is no pain on palpation. There is no crepitus. Passive range of motion is full. Neurologic: There is no focal neurologic deficit. Psychiatric: Affect is flat. Assessment & Plan Assessment/Plan (1) ZA (acute kidney injury): PLAN: The patient has no prior history of CKD. Serum creatinine was 0.44 mg/dL in May 2021. ZA is secondary to volume depletion from poor oral intake and ongoing diarrhea causing prerenal azotemia. Urine sodium on presentation was less than 5 mmol/L. Fractional excretion of sodium was less than 1%. Renal ultrasound without hydronephrosis BUN and creatinine better (2) Hyponatremia: PLAN: The patient has a history of chronic hyponatremia which was attributed to SIADH. Her baseline serum sodium has been around 129 to 131 mmol/L. Acute worsening of hyponatremia is likely due to decreased effective blood volume. Better now. She has known history of lung malignancy. Repeat CT chest from today shows increase in size of the mass compared to previous imaging. (3) Metabolic acidosis: PLAN: Improving (4) Hyperkalemia: PLAN: Resolved (5) Failure to thrive: PLAN: Management as per hospital medicine service.
--- NOTE | 2021-07-17 15:53 | WOUNDNOTE ---
wound photo: buttocks
--- NOTE | 2021-07-17 15:54 | WOUNDNOTE ---
skin photo: bilateral lower legs/feet
--- NOTE | 2021-07-17 15:54 | WOUNDNOTE ---
skin photo: left posterior lower leg
[2021-07-17] MEDS: MELATONIN 3 MG TABLET PO (23:34)
[2021-07-17] MEDS: Loperamide 2 MG Capsule PO (23:34)
[2021-07-18] VITALS (8 sets, daily range): BP systolic 92–117; BP diastolic 58–83; PULSE 52–101; RESP 16–20; TEMP 36.3–36.8; O2SAT 94–98
[2021-07-18] MEDS: Loperamide 2 MG Capsule PO ×3 (02:25→23:35)
[2021-07-18] MEDS: Vancomycin 125 MG/5 ML Susp PO.SYRINGE PO ×4 (05:22→23:35)
[2021-07-18 06:56] LABS: Absolute Lymphocyte Count 0.61 X10^3/uL (0.83-4.51); Basophil# 0.03 X10^3/uL; Basophil% 0.2 % (0-1); Eosinophil# 0.26 X10^3/uL; Hematocrit 33.3 % (37-47); Hemoglobin 10.8 g/dL (12.0-15.0); Lymphocyte # 0.61 X10^3/ul (0.83-4.51); Lymphocyte % 4.8 % (19-41); Mean Corp Hgb Conc 32.4 g/dL (32-36); Mean Corpuscular Hgb 30.3 pg (27.0-32.0); Mean Corpuscular Volume 93.5 fL (81-99); Mean Platelet Vol. 8.7 fl (6.2-12.0); Monocyte# 0.64 X10^3/uL; NRBC Flagged by Analyzer 0 % (0-5); Neutrophil # 11.01 X10^3/uL (2.7-7.7); Neutrophil % 86.9 % (47-70); Platelet Count 275 K/mm3 (150-450); RBC Distribution Width CV 15.3 % (11.6-14.6); RBC Distribution Width SD 52.4 fl (35.1-43.9); Red Blood Count 3.56 M/mm3 (4.2-5.4); White Blood Count 12.7 K/mm3 (4.4-11.0)
[2021-07-18] MEDS: Budesonide Respules 0.5 MG/2 ML AMPUL.NEB. INHALATION ×2 (07:05→19:14)
[2021-07-18 07:35] LABS: ALB/GLOB Ratio 0.5 RATIO (0.9-2.4); AST(SGOT) 23 U/L (15-37); Alanine Aminotransfer ALT/SGPT 13 U/L (13-56); Albumin, Serum 1.8 g/dL (3.2-5.0); Alkaline Phosphatase 84 U/L (45-117); Anion Gap 7 (5-15); BUN 50 mg/dL (7-18); BUN/Creat Ratio 30.5 RATIO (10-20); Chloride 108 mmol/L (98-107); Creatinine, Serum 1.64 mg/dL (0.55-1.02); EST Glomerular Filtration Rate 33 mL/min (>60); Est Glom Filt Rate - Afr Amer 39 mL/min (>60); Globulin 3.3 g/dL (2.2-4.2); Glucose 99 mg/dL (74-106); Potassium 3.7 mmol/L (3.5-5.1); Protein, Total 5.1 g/dL (6.4-8.2); Sodium Level 136 mmol/L (136-145)
--- NOTE | 2021-07-18 09:13 | CASEMGMT ---
REUBEN spoke with Misbah from Adult Protective Services regarding concerns with patient's care. She will follow up at discharge. Myrtle Alberto NEGATIVE TURNER DRE
--- NOTE | 2021-07-18 09:42 | CT_ITS ---
EXAM: CT ABDOMEN AND PELVIS WITH INTRAVENOUS CONTRAST : 1945 CLINICAL INDICATION: lung cancer -- oral contrast too TECHNIQUE: Helically acquired images were obtained of the abdomen and pelvis with intravenous contrast. This CT exam was performed using one or more of the following dose reduction techniques: automated exposure control, adjustment of the mA and/or kV according to patient size, and/or use of iterative reconstruction technique. This report was created using [facility] report generation technology. CONTRAST: IV 100mL Isovue-300 COMPARISON: CT chest July 17, 2021 FINDINGS: LOWER THORAX: Small bilateral pleural effusions again noted. Airspace opacification of the right lower lobe consistent with pneumonia. Stable cardiomegaly. ABDOMEN: LIVER: Unremarkable. Homogeneous. No focal mass. GALLBLADDER AND BILE DUCTS: Stone/sludge noted within the gallbladder. No gallbladder distention or wall edema. No intra- or extrahepatic biliary ductal dilation. PANCREAS: Unremarkable. No focal cystic or solid mass. SPLEEN: Unremarkable. Normal size without focal cystic or solid mass. ADRENALS: Unremarkable. No nodules. KIDNEYS AND URETERS: Unremarkable. Normal renal size and position. No hydronephrosis. STOMACH AND BOWEL: Colon diverticulosis noted without evidence of acute diverticulitis. No stomach or bowel distention. PELVIS: APPENDIX: Appendix is visualised and normal in appearance. BLADDER: Unremarkable. REPRODUCTIVE: Small calcified and noncalcified uterine fibroids are noted. Uterus measures 6.5 cm in length. ABDOMEN and PELVIS: INTRAPERITONEAL SPACE: Unremarkable. No ascites or other fluid collection. No free air. BONES/JOINTS: Multilevel disc degeneration noted within the spine. Advanced arthritic changes of the right hip noted and to a lesser degree the left hip. Prominent levoscoliosis of the lumbar spine. No suspicious lytic or blastic abnormality. SOFT TISSUES: Unremarkable. No discrete abdominal or pelvic wall hernia. VASCULATURE: Unremarkable. Abdominal aorta is non-dilated. LYMPH NODES: Unremarkable. No enlarged lymph nodes. CT/Abdomen/Pelvis WITH Contrast IMPRESSION: 1. Right lower lobe pneumonia. 2. Small bilateral pleural effusions. 3. Cardiomegaly. 4. Gallbladder sludge's/stones. 5. Diverticulosis coli. Individualized dose optimization techniques were used for this CT. at 1711 Reported and signed by: Alex Silver MD Electronically Signed: Alex Silver MD at 17:10 EDT Tel , Service support ,
--- NOTE | 2021-07-18 10:05 | WOUNDNOTE ---
Washed legs and feet with soap and water. pat dry. was able to remove more dry skin today. few small areas of bleeding noted. placed Adaptic to the bleeding areas. applied aloe vesta to all of the dry skin. covered with dry dressings and wrapped with kerlix. pt tolerated well. will continue to monitor. patient still plans to return home rather than going to a longterm. present in room.
[2021-07-18] MEDS: Menthol/Lanolin/Calamine/Znox 113 GM Tube 1 APPLIC TOPICAL ×4 (10:12→20:48)
[2021-07-18] MEDS: Lactated Ringers 1,000 ML 100 ML IV ×2 (10:27→20:48)
[2021-07-18] MEDS: Magnesium Chloride 64 MG Delay Rel.Tablet 128 MG PO (10:28)
[2021-07-18] MEDS: Multivitamins,Ther W-Minerals Tablet 1 TABLET PO (10:28)
[2021-07-18] MEDS: Rivaroxaban 15 MG Tablet PO (10:29)
[2021-07-18] MEDS: Escitalopram Oxalate 10 MG Tablet PO (10:30)
--- NOTE | 2021-07-18 10:47 | CASEMGMT ---
Call to Palliative and they state pt was referred to them in May and pt declined services once home. Brenton MARION CM
--- NOTE | 2021-07-18 13:10 | CASEMGMT ---
REUBEN left a message for Rachele with [facility] and let her know patient is not going to be discharged today. Myrtle ERICKSON
--- NOTE | 2021-07-18 13:27 | PN.HOSP_ITS ---
Documented by User: Teodora Parsons NP, [employer]-C 07/18/21 13:39 Subjective Subjective Patient seen and examined. Reports continued weakness, now amendable to rehab at discharge. Discussed with patient history of non-small cell lung cancer and she states she stopped following up because she felt better. Given worsening appearance on chest CT, patient is amenable to oncology consult and discuss treatment options. Objective Data Objective Data Vital Signs: Vital Signs Temp Pulse Resp BP Pulse Ox 98.2 F 52 L 16 92/58 L 94 07/18/21 12:00 07/18/21 12:00 07/18/21 12:00 07/18/21 12:00 07/18/21 12:00 Oxygen Delivery Method Room Air Weight: 131 lb 6.328 oz Body Mass Index (BMI) 23.3 Intake & Output: Intake and Output for Last 24 Hours 07/16/21 07/17/21 07/18/21 23:59 23:59 23:59 Intake Total 4009.5 / 4249.5 3642.50 / 3642.50 1360 / 1360 Output Total 550 / 725 750 / 1200 1075 / 1075 Balance 3459.5 / 3524.5 2892.50 / 2442.50 285 / 285 Medical Nutrition Assessment Dietitian: Malnutrition Criteria Met Start: 07/16/21 14:48 Freq: Status: Active Protocol: Document 07/16/21 14:48 BP (Rec: 07/16/21 14:48 BP [id number]) Nutrition Malnutrition Evidence of Malnutrition Exists Yes Malnutrition (severe): Acute Illness/Injury Evidenced By Suboptimal Energy Intake ( Severe),Weight Loss (Severe), Physical Changes (Moderate) Clinical Problem Acute Disease or Injury Related Malnutrition Etiology Severe malnutrition in the context of acute illness/ injury related to inadequate oral intake, unintentional wt loss, & increased nutrition needs Signs/Symptoms as evidenced by pt w/ 17% wt loss x 1 1/2 month, pt report pt with poor intake per comments pt consuming </= 50% energy intake compared to pt estimated nutrition needs x >/=5 days, pt with no PO intake x 3 day prior to admission, pt w/ increased protein needs d/t lower extremity wounds, and pt w/ moderates muscle/fat wasting observed in temporal & orbital regions. Status Active Problem Recommendation Dietitian Recommendations/Changes Will liberalize pt diet to regular no added salt d/t poor PO intake & s/s of malnutrition. Will provide ONS: ensure enlive 120 ml w/ medpass, Pj 1 pkt BID w/ B&L, and ensure pudding or magic cup w/ pt meals. Lab / Micro Data Result Diagrams: 07/18/21 05:25 07/18/21 05:25 Labs: Laboratory Results - last 24 hr 07/18/21 05:25: WBC 12.7 H, RBC 3.56 L, Hgb 10.8 L, Hct 33.3 L, MCV 93.5, MCH 30.3, MCHC 32.4, RDW Std Deviation 52.4 H, RDW Coeff of Malini 15.3 H, Plt Count 275, MPV 8.7, Immature Gran % (Auto) 1.100 H, Neut % (Auto) 86.9 H, Lymph % (Auto) 4.8 L, [place] % (Auto) 5.0, Eos % (Auto) 2.0, Baso % (Auto) 0.2, Absolute Neuts (auto) 11.0 H, Absolute Lymphs (auto) 0.61 L, Nucleated RBC % 0 07/18/21 05:25: Sodium 136, Potassium 3.7, Chloride 108 H, Carbon Dioxide 21.0, Anion Gap 7, BUN 50 H, Creatinine 1.64 H, Estim Creat Clear Calc 24.90, Est GFR (MDRD) Af Amer 39 L, Est GFR (MDRD) Non-Af 33 L, BUN/Creatinine Ratio 30.5 H, Glucose 99, Calcium 9.0, Total Bilirubin 0.60, AST 23, ALT 13, Alkaline Phosphatase 84, Total Protein 5.1 L, Albumin 1.8 L, Globulin 3.3, Albumin/Globulin Ratio 0.5 L Micro: Microbiology 07/16/21 14:10 Wound - Leg, Left Gram Stain - Final 07/16/21 14:10 Wound - Leg, Left Wound Culture - Final Staphylococcus sciuri Pseudomonas aeroginosa 07/15/21 16:04 Blood Culture (Wb) - Anticubital Left Blood Culture - Preliminary No growth in 48 hours. 07/15/21 17:48 Blood Culture (Wb) - Anticubital Right Blood Culture - Preliminary No growth in 48 hours. 07/15/21 18:25 Urine, Catheterized Urine Culture - Final Enterobacter aerogenes 07/15/21 18:38 Stool Enteric Bacteriology - Final 07/15/21 18:38 Stool C. difficile GDH Antigen & Toxins - Final 07/15/21 18:38 Stool C. difficile DNA Amplification - Final 07/15/21 17:45 Nasal Secretion SARS-CoV-2 Antigen (Rapid) - Final Radiography Diagnostic Testing: Radiology Impression Chest CT 07/17/21 13:59 IMPRESSION: 3.7 cm x 2.5 cm wedge-shaped mass in the anterior aspect of the left upper lobe deep to the densely sclerotic ribs. This has progressed as compared to prior study. A neoplastic process should BE ruled out. Small bilateral pleural effusions with patchy infiltrates in the right lower lobe. Dextroscoliosis. Electronically Signed: Kenneth Salinas MD at 15:14 EDT , Service support , Physical Exam Const alert, oriented x3 and no apparent distress Orientation / Consciousness: awake, oriented to person, oriented to place and oriented to time Nutritional Appearance: cachectic HEENT normocephalic and moist oral mucous membranes Eyes PERRL, EOMs intact bilaterally and conjunctivae normal Neck no lymphadenopathy Resp normal respiratory effort and clear to auscultation bilaterally Cardio regular rate, regular rhythm and no murmurs Peripheral Pulses: pulses 2+ throughout GI normal to inspection, nondistended, normoactive bowel sounds, non-tender and non-distended Extremity normal to inspection Skin no rashes or lesions noted Skin Narrative: Lower extremity venous stasis skin changes with excoriation, dressings intact. Superficial buttock wounds, dressing intact. Lesions: no lesions Rashes: no rashes Trauma: no lacerations or abrasions Neuro CN's II-XII intact bilaterally, no focal motor deficits, no sensory deficits noted and deep tendon reflexes 2+ bilaterally Psych mental status grossly normal Mood & Affect: flat affect Assessment & Plan Assessment/Plan (1) ZA (acute kidney injury): PLAN: 1. Acute kidney injury-suspect secondary to GI loss. IV fluids, trend BMP. Nephrology consulted. Improving. Renal ultrasound without hydronephrosis. 2. Severe diarrhea-diarrhea has resolved. C. difficile antigen positive however toxin negative. Given intractable diarrhea prior to admission, will complete course of oral vancomycin. 3. History of breast cancer/non-small cell lung cancer-patient now amendable to oncology consult and treatment options for non-small cell lung cancer. Chest CT with wedge shaped mass in the left upper lobe, progressed from prior study. Small bilateral pleural effusions. CT of abdomen and pelvis pending. Oncology consult placed. 4. Failure to thrive-PT/OT. Case management consult. Recent APS referral. Now amendable to SNF/rehab at discharge. 5. Acute on chronic hyponatremia/SIADH-resolved with IV fluids. Trend BMP. 6. Chronic lower extremity venous stasis ulcerations/peripheral vascular disease/lymphedema-cellulitis ruled out. Discontinue further antibiotics. Patient has chronic buttock wound as well. Frequent position changes. Patient noted to have maggots on initial evaluation of lower extremities. Continue wound care as ordered. Lower extremities appear significantly improved following aggressive wound care. 7. Severe protein calorie malnutrition-as evidenced by muscle and fat loss, poor oral intake. Dietitian consulted. 8. Chronic heart failure with reduced ejection fraction/nonischemic cardiomyopathy-no acute failure. 9. Chronic atrial fibrillation-on Xarelto, carvedilol. 10. Chronic COPD with chronic hypoxic respiratory failure-continue supplemental oxygen to maintain O2 above 90%. As needed albuterol aerosol. 11. Tobacco dependence-encouraged cessation DVT prophylaxis- xarelto This patient was seen by Teodora Parsons NP-C under the supervision of Dr. Ovalle. Documented by User: Dr. Gay Ovalle DO 07/18/21 14:19 Subjective Subjective This patient was seen in conjunction with Teodora Parsons NP. The following represents my independent history and physical examination. Please see below for addendum to the above. The patient was seen with her at the bedside. He indicates that she had followed with Dr. Cazares previously for her lung cancer. It sounds like she only had stereotactic radiation and I doubt she would be a candidate for any treatment at this time although the patient indicates that she is not ready to and would like to be evaluated for possible treatment. I did indicate to er that she would need to be healthier and more functional and she is now agreeable to placement. They would like to talk to Dr. Cazares with regards to her potential options if she is healthy enough to receive any treatment. If not then will it sounds that they may be willing to discuss hospice. Objective Data Lab / Micro Data Result Diagrams: 07/18/21 05:25 07/18/21 05:25 Physical Exam Const alert, oriented x3 and no apparent distress Constitutional Narrative: Thin, emaciated, older white female sitting up in bed, appears comfortable, at the bedside, patient is more interactive in the conversation today Orientation / Consciousness: awake, oriented to person, oriented to place and oriented to time Exam Limitations: no limitations Nutritional Appearance: cachectic HEENT normocephalic, head/scalp atraumatic and moist oral mucous membranes HEENT Narrative: Temporal wasting present Head and Scalp: normocephalic Resp normal respiratory effort, no retractions, no use of accessory muscles and clear to auscultation bilaterally Resp Narrative: Diffusely diminished but clear Auscultation: Negative for crackles, rales, rhonchi or wheezes Cardio regular rate, regular rhythm, S1 normal heart sound, S2 normal heart sound, no murmurs, no rub, no gallops, no clicks and no JVD Peripheral Pulses: pulses 2+ throughout GI normal to inspection, nondistended, normoactive bowel sounds, soft to palpation, non-tender and non-distended GI Narrative: Very thin Extremity normal to inspection Extremity Narrative: Bilateral lower extremity edema edema-trace, pitting, bilateral wounds and erythema Peripheral Pulses: Yes pulses 2+ throughout Skin no rashes or lesions noted, skin turgor normal, no jaundice, no petechiae and no mottling Skin Narrative: Lower extremity venous stasis skin changes with excoriation, dressings intact. Superficial buttock wounds, dressing intact. Lesions: no lesions Rashes: no rashes Trauma: no lacerations or abrasions Neuro oriented x3, CN's II-XII intact bilaterally, moves all extremities, no focal motor deficits, no sensory deficits noted and deep tendon reflexes 2+ bilaterally Neuro Narrative: Marked generalized weakness Sensorium / Orientation: awake and alert Psych mental status grossly normal Psych Narrative: V mood seems a bit better today, affect remains flat Mood & Affect: depressed and flat affect Assessment & Plan Assessment/Plan (1) ZA (acute kidney injury): (2) Hyponatremia: (3) Failure to thrive: (4) Non-small cell lung cancer: QUALIFIERS: Laterality: left Qualified Code(s): C34.92 - M alignant neoplasm of unspecified part of left bronchus or lung PLAN: Assessment: Diarrhea-now resolved C. difficile associated colitis ZA-improved Hypotension-improved Metabolic acidosis-resolved SIADH with chronic hyponatremia Acute on chronic bilateral lower extremity venous stasis ulcerations Chronic buttock pressure ulcer Severe malnutrition Compensated nonischemic cardiomyopathy Chronic atrial fibrillation COPD Chronic hypoxic respiratory failure History of breast cancer History of non-small cell lung CA Ongoing tobacco abuse Depression Adult failure to thrive Plan: -CT shows enlargement of her left upper lobe mass -CT abdomen and pelvis with IV and p.o. contrast pending at this time -Continue Lexapro 10 mg but watch sodium closely as patient does have a history of SIADH -Continue IV fluids serum creatinine is much improved and down to 1.64 from 6.18 on admission -Continue to monitor CBC and BMP -Hyponatremia has resolved -Last echo done 10/05/2019 shows an EF of 37% with no regional wall motion a bnormalities, moderate pulmonary hypertension with a pulmonary artery systolic pressure of 90 mmHg -Patient has required thoracentesis for recurrent pleural effusion--> suspect this may be related to her lung CA -We will consult oncology as patient is interested did and treatment options--> as noted above I did discuss with her that she is likely not a candidate for any treatment at this time and less she can get much stronger and well. With discuss question she does agree to placement at discharge Charges/Coding Visit Charges Inpatient E&M: 77871 Subs Hosp L2
[2021-07-18] MEDS: DiphenhydrAMINE 50 MG/ML Syringe IV (15:51)
--- NOTE | 2021-07-18 16:44 | PN.RENAL_ITS ---
Subjective Subjective no new complaints Objective Data Objective Data Vital Signs: Vital Signs Temp Pulse Resp BP Pulse Ox 98.2 F 52 L 16 92/58 L 94 07/18/21 12:00 07/18/21 12:00 07/18/21 12:00 07/18/21 12:00 07/18/21 12:00 Oxygen Delivery Method Room Air Weight: 59.6 kg Body Mass Index (BMI) 23.3 Intake & Output: Intake and Output for Last 24 Hours 07/16/21 07/17/21 07/18/21 23:59 23:59 23:59 Intake Total 4009.5 / 4249.5 3642.50 / 3642.50 1360 / 1360 Output Total 550 / 725 750 / 1200 1075 / 1075 Balance 3459.5 / 3524.5 2892.50 / 2442.50 285 / 285 Medical Nutrition Assessment Dietitian: Malnutrition Criteria Met Start: 07/16/21 14:48 Freq: Status: Active Protocol: Document 07/18/21 14:35 RMA (Rec: 07/18/21 14:36 RMA [id number]) Nutrition Malnutrition Evidence of Malnutrition Exists Yes Malnutrition (severe): Acute Illness/Injury Evidenced By Suboptimal Energy Intake ( Severe),Weight Loss (Severe), Physical Changes (Moderate) Clinical Problem Acute Disease or Injury Related Malnutrition Etiology Severe malnutrition in the context of acute illness/ injury related to inadequate oral intake & increased nutrition needs Signs/Symptoms as evidenced by pt w/ 17% wt loss x 1 1/2 month, pt report pt with poor intake per comments pt consuming </= 50% energy intake compared to pt estimated nutrition needs x >/=5 days, pt with no PO intake x 3 day prior to admission, pt w/ increased protein needs d/t lower extremity wounds, and pt w/ moderates muscle/fat wasting observed in temporal & orbital regions. Status Active Problem Recommendation Dietitian Recommendations/Changes Will liberalize pt diet to regular/no added salt d/t poor PO intake & s/s of malnutrition. Will provide ONS: ensure enlive 120 ml w/ medpass, Pj 1 pkt BID w/ B&L, and ensure pudding or magic cup w/ pt meals. May need to consider TF support if PO does not improve and weight continues to decline. Lab / Micro Data Result Diagrams: 07/18/21 05:25 07/18/21 05:25 Labs: Laboratory Results - last 24 hr 07/18/21 05:25: WBC 12.7 H, RBC 3.56 L, Hgb 10.8 L, Hct 33.3 L, MCV 93.5, MCH 30.3, MCHC 32.4, RDW Std Deviation 52.4 H, RDW Coeff of Malini 15.3 H, Plt Count 275, MPV 8.7, Immature Gran % (Auto) 1.100 H, Neut % (Auto) 86.9 H, Lymph % (Auto) 4.8 L, [place] % (Auto) 5.0, Eos % (Auto) 2.0, Baso % (Auto) 0.2, Absolute Neuts (auto) 11.0 H, Absolute Lymphs (auto) 0.61 L, Nucleated RBC % 0 07/18/21 05:25: Sodium 136, Potassium 3.7, Chloride 108 H, Carbon Dioxide 21.0, Anion Gap 7, BUN 50 H, Creatinine 1.64 H, Estim Creat Clear Calc 24.90, Est GFR (MDRD) Af Amer 39 L, Est GFR (MDRD) Non-Af 33 L, BUN/Creatinine Ratio 30.5 H, Glucose 99, Calcium 9.0, Total Bilirubin 0.60, AST 23, ALT 13, Alkaline Phosphatase 84, Total Protein 5.1 L, Albumin 1.8 L, Globulin 3.3, Albumin/Globulin Ratio 0.5 L Micro: Microbiology 07/16/21 14:10 Wound - Leg, Left Gram Stain - Final 07/16/21 14:10 Wound - Leg, Left Wound Culture - Final Staphylococcus sciuri Pseudomonas aeroginosa 07/15/21 16:04 Blood Culture (Wb) - Anticubital Left Blood Culture - Preliminary No growth in 48 hours. 07/15/21 17:48 Blood Culture (Wb) - Anticubital Right Blood Culture - Preliminary No growth in 48 hours. 07/15/21 18:25 Urine, Catheterized Urine Culture - Final Enterobacter aerogenes 07/15/21 18:38 Stool Enteric Bacteriology - Final 07/15/21 18:38 Stool C. difficile GDH Antigen & Toxins - Final 07/15/21 18:38 Stool C. difficile DNA Amplification - Final 07/15/21 17:45 Nasal Secretion SARS-CoV-2 Antigen (Rapid) - Final Physical Exam Narrative General: Ill-appearing woman who appears to be older than stated age. HEENT: Normocephalic, atraumatic. Mucous membrane is dry. There is no mucosal erythema. PERRLA, EOMI. Neck: Supple, no JVD or bruit. Heart: Irregularly irregular S1-S2. There is no rubs or murmurs. Lungs: Clear to auscultation anteriorly. Abdomen: Normal bowel sound, soft, nontender, no guarding or rebound. Extremity: There is chronic appearing erythema and 1+ swelling of the lower extremities bilaterally. There is no pain on palpation. There is no crepitus. Passive range of motion is full. Neurologic: There is no focal neurologic deficit. Psychiatric: Affect is flat. Assessment & Plan Assessment/Plan (1) ZA (acute kidney injury): PLAN: The patient has no prior history of CKD. Serum creatinine was 0.44 mg/dL in May 2021. ZA is secondary to volume depletion from poor oral intake and ongoing diarrhea causing prerenal azotemia. Urine sodium on presentation was less than 5 mmol/L. Fractional excretion of sodium was less than 1%. Renal ultrasound without hydronephrosis BUN and creatinine better off fluids (2) Hyponatremia: PLAN: The patient has a history of chronic hyponatremia which was attributed to SIADH. Her baseline serum sodium has been around 129 to 131 mmol/L. Acute worsening of hyponatremia is likely due to decreased effective blood volume. Better now. She has known history of lung malignancy. Repeat CT chest shows increase in size of the mass compared to previous imaging. CT abd today as per staff (3) Metabolic acidosis: PLAN: Improving (4) Hyperkalemia: PLAN: Resolved (5) Failure to thrive: PLAN: Management as per hospital medicine service.
--- NOTE | 2021-07-18 17:05 | PCM.CONS.B ---
Consult Date of Consult: 07/18/[address] Ovalle regarding patient known to Dr. Cazares with history of breast cancer and non-small cell lung cancer. My final recommendation will be communicated to the medical staff and also by electronic medical record. HPI Narrative The patient is a 75 y/o F w/ PMHx: Chronic Systolic CHF/Nonischemic cardiomyopathy, Chronic COPD w/ Chronic Hypoxic Respiratory Failure, Chronic BL LE PVD/Stasis Ulcers w/ Chronic Lymphedema, tobacco user. Hx SIADH w/ chronic hyponatremia, Chronic Fe Deficiency. Hx Breast CA in remission, initially diagnosed in September 1996 with infiltrating ductal carcinoma left breast. She underwent modified radical l mastectomy, she then received 3 cycles of FEC chemotherapy completed December 1996. She discontinued treatment because intolerance to chemotherapy with severe malaise and anorexia. She had radiation therapy to her left chest wall. She was diagnosed with stage I right breast cancer in 2003. Underwent lumpectomy and sentinel lymph node dissection January 03, 2014. She had adjuvant radiation therapy but did not receive endocrine therapy She also had, she was diagnosed with non-small cell lung CA, December 2017. PET scan confirmed a 2.9 x 1.9 cm left upper lobe mass positive on PET scan CT-guided lung biopsy consistent with non-small cell lung cancer, adenocarcinoma. PDL 1-no expression. She was seen by thoracic surgery and was deemed a nonsurgical candidate. She was recommended to have stereotactic radiation therapy but developed cellulitis lower extremity and did not follow through with her treatment. Her last office visit with Dr. Cazares was 3 years ago. She presents to the [facility] ED on 07/15/21 with history of increasing fatigue, malaise, diarrhea ongoing for 1 week per Spouse report with profound weakness, malaise and debility prompting spouse to bring patient to the ED for evaluation. In the ED patient appearance is concerning, she is extremely disheveled and staff noted upon her initial presentation maggots to her lower extremity chronic wounds prompting initiation of APS evaluation per ED staff. Work-up in the ED included T 97.3, heart rate 96-1 03, BP initially 70/53 with eventual improvement to 102/57, respiratory rate 18-26, 94 to 99% on room air, CBC with WBC 17.9, hemoglobin 15.4, platelet 416 with left shift and lymphopenia, unremarkable coags, CMP with sodium 122, potassium 5.8, chloride 90, carbon oxide 17, anion gap 15, BUN/creatinine 103/7.03, lactic acid 1.7 otherwise hepatic profile not marked appearing, urinalysis with evidence of dehydration otherwise no obvious evidence acute UTI, rapid COVID negative, EKG with rate controlled atrial fibrillation, chest x-ray with no airspace consolidation or pleural effusion with stable left perihilar mass noted on previous imaging, right foot plain film with no destructive bony process with soft tissue swelling, left foot plain film with soft tissue swelling with no destructive bony process. In the ED patient with noted maggots to small wounds on her lower extremities. APS initiated per ED staff. In the ED patient administered IV vancomycin and Zosyn as well as 30 cc/kg bolus IV fluids. [facility] Medical History (Updated 07/15/21 @ 21:[address] Jessica Plaza MD) Acute on chronic systolic (congestive) heart failure Acute on chronic systolic heart failure Bilateral leg ulcer COPD (chronic obstructive pulmonary disease) Debility Dependence on supplemental oxygen Dependent edema Essential (primary) hypertension History of breast cancer Hypertension Hyponatremia Hyponatremia Immobility Irregular heart beat Leg edema Leg edema, left Leg edema, right Leg swelling Lumbar disc disease Lung mass Lymphangitis of lower extremity Lymphedema of both lower extremities New onset A. fib with RVR Nicotine dependence Non-ischemic cardiomyopathy Non-rheumatic tricuspid valve insufficiency Nonrheumatic mitral (valve) insufficiency On home oxygen therapy Osteoporosis Paroxysmal atrial fibrillation Pressure sore on buttocks Secondary pulmonary arterial hypertension Smoker Suspected chronic obstructive pulmonary disease based on initial evaluation Thrush, oral Tobacco abuse Tobacco abuse counseling Ulcer of left lower extremity with fat layer exposed Wound cellulitis Wound of lower extremity Home Medications qvsyhbuw-lmq-hncm-FA-lutein 1 tab PO DAILY 10/05/19 [History Last Taken 07/15/21 1] carvedilol 25 mg PO BID 07/12/20 [History Last Taken 07/14/21 25 mg] fluticasone propion-salmeterol 2 puff INHALATION BID 07/12/20 [History Last Taken 05/11/21] Spiriva Respimat 2 inh INHALATION BID 05/12/21 [History Last Taken 05/11/21] Xarelto 20 mg PO DAILY 05/12/21 [History Last Taken 07/14/21 20] magnesium oxide 400 mg PO DAILY 05/12/21 [History Last Taken 05/11/21] ferrous sulfate [FeroSul] 325 mg PO QODAY@1200 05/23/21 [History Last Taken Unknown] acetaminophen 1,000 mg PO Q6H PRN PRN #0 tab 05/26/21 [Rx Last Taken 07/15/21 500 mg] amoxicillin-pot clavulanate [Augmentin] 1 tab PO BID 4 Days #8 tab 05/26/21 [Rx Last Taken Unknown] Allergy/AdvReac Type Severity Reaction Status Date / Time albuterol sulfate Allergy Swelling Verified 07/15/21 17:19 [From Combivent] ipratropium bromide Allergy Swelling Verified 07/15/21 17:19 [From Combivent] metoprolol Allergy Laryngospas Verified 07/15/21 17:19 ms Sulfa (Sulfonamide Allergy Rash Verified 07/15/21 17:19 Antibiotics) beclomethasone [From Qvar] AdvReac COUGHING Verified 07/15/21 17:19 benzalkonium chloride AdvReac Rash Verified 07/15/21 17:19 [From Merthiolate (benzalkonium)] codeine AdvReac Chest Verified 07/15/21 17:19 tightness doxycycline AdvReac Abd Verified 07/15/21 17:19 cramps/diarrhea formoterol fumarate AdvReac PT UNSURE Verified 07/15/21 17:19 [From Dulera] OF REACTION hydrochlorothiazide AdvReac PT UNSURE Verified 07/15/21 17:19 OF REACTION ibuprofen [From Advil] AdvReac PT UNSURE Verified 07/15/21 17:19 OF REACTION iodine AdvReac Itching Verified 07/15/21 17:19 merbromin AdvReac PT UNSURE Verified 07/15/21 17:19 OF REACTION mometasone furoate AdvReac PT UNSURE Verified 07/15/21 17:19 [From Dulera] OF REACTION oseltamivir [From Tamiflu] AdvReac uterine Verified 07/15/21 17:19 pain prednisone AdvReac Abd Verified 07/15/21 17:19 cramps/diarrhea PLASTIC TAPE Allergy Rash Uncoded 07/15/21 17:19 Family History (Updated 07/15/21 @ 21:[address] Jessica Plaza MD) Father Emphysema of lung Sister Cancer uterine cancer Mother Hypertension Surgical History History of left heart catheterization (11/09/19) History of left mastectomy History of lumpectomy of right breast History of tubal ligation polyp removal S/P lumpectomy, right breast Social History (Updated 07/15/21 @ 21:[address] Jessica Plaza MD) household members: spouse Smoking Status: Current every day smoker tobacco type: cigarettes Smoking packs per day: 0.5 Smoking cigarettes per day: 10.0 second hand exposure: Yes alcohol intake: current alcohol intake frequency: 0-2 drinks per day Alcohol type: wine substance use type: does not use caffeine: No what type of physical activity do you participate in: none seatbelt use: always do you feel safe at home: Yes ROS ROS Narrative Admission Review of Systems: CONSTITUTIONAL: No weight loss, fever, chills, + weakness or fatigue. HEENT: Eyes: No visual loss, blurred vision, double vision or yellow sclerae. Ears, Nose, Throat: No hearing loss, sneezing, congestion, runny nose or sore throat. SKIN: + Significant bilateral lower extremity wounds, stasis disease, maggot infestation. CARDIOVASCULAR: + Chronic BL LE edema. No chest pain, chest pressure or chest discomfort, palpitations, orthopnea, syncopal events. RESPIRATORY: + shortness of breath, No marked cough or sputum, wheezing, hemoptysis. GASTROINTESTINAL: + anorexia, diarrhea. No nausea, vomiting, abdominal pain, melena, BRBPR. GENITOURINARY: No dysuria, frequency, urgency or retention. NEUROLOGICAL: No headache, dizziness, syncope, paralysis, ataxia, numbness or tingling in the extremities, focal weakness, change in bowel or bladder control, seizure. MUSCULOSKELETAL: + muscle, back pain, joint pain or stiffness. HEMATOLOGIC: + anemia, bleeding or bruising. LYMPHATICS: No enlarged nodes. No history of splenectomy. PSYCHIATRIC: + history of depression or anxiety. ENDOCRINOLOGIC: No reports of sweating, cold or heat intolerance. No polyuria or polydipsia. ALLERGIES: No history of asthma, hives, eczema or rhinitis. Vital Signs Vital Signs Vital Signs: 07/15/21 17:10 07/15/21 17:17 07/15/21 17:59 Temperature 97.3 F L 97.3 F L 97.4 F L Temperature Source Temporal Temporal Temporal Pulse Rate 95 100 Respiratory Rate 18 18 Blood Pressure 70/53 L 70/53 L Blood Pressure Mean 58 58 Pulse Ox 65 95 Oxygen Delivery Method Room Air Room Air Room Air 07/15/21 18:07 07/15/21 18:47 07/15/21 19:00 Temperature 97.6 F L 98.3 F Temperature Source Oral Oral Pulse Rate 91 101 H 103 H Respiratory Rate 26 H 18 18 Blood Pressure 82/60 L 99/66 102/57 L Blood Pressure Mean 67 77 72 Pulse Ox 96 94 99 Oxygen Delivery Method Room Air Room Air Room Air Weight Weight: 133 lb 9.602 oz Body Mass Index (BMI) 23.6 Physical Exam Narrative Physical Examination: Performance status 50% General: Awake, alert, oriented x 3 and cooperative, disheveled, ill-appearing, foul-smelling. Skin: Normal color, normal turgor, no icterus, no cyanosis except significant bilateral lower extremity stasis disease, stasis ulcers, erythematous from muñoz to pedal bilaterally, worse left, evidence of maggot infestation. HEENT: AT/NC, EOMI, PERRLA, dry MM, no carotid bruits or JVD noted. Lungs: Diffusely diminished, bilaterally bases, moderate effort, no rales, ronchi or wheezing. Heart: Irregular, irregular; no gallop, rub audible. Abdomen: Soft, nontender to palpation, not markedly distended, hyperactive bowel sounds, no obvious HSM. Extremities: No cyanosis, no clubbing, see skin, significant bilateral lower extremity lymphedema, pitting, tender to palpation. Neurological: Patient awake, alert, oriented as noted, cognitive function appears intact; pupils equally reactive to light and accommodation, cranial nerves II-XII grossly normal, moving all 4 extremities, no focal deficits, strength severely global decrease secondary to acute presentation. Psychiatric: Affect appears flat, ill-appearing, fatigued, no acute evidence of depressive or anxiety feelings. Results Lab / Micro Data Result Diagrams: 07/15/21 17:48 document embedded image 07/15/21 17:48 document embedded image Labs:Laboratory Results - last 24 hr 07/15/21 17:48: WBC 17.9 H, RBC 5.10, Hgb 15.4 H, Hct 46.2, MCV 90.6, MCH 30.2, MCHC 33.3, RDW Std Deviation 47.8 H, RDW Coeff of Malini 14.4, Plt Count 416, MPV 8.3, Immature Gran % (Auto) 1.700 H, Neut % (Auto) 91.5 H, Lymph % (Auto) 3.5 L, [place] % (Auto) 3.0, Eos % (Auto) 0.1, Baso % (Auto) 0.2, Absolute Neuts (auto) 16.4 H, Absolute Lymphs (auto) 0.62 L, Nucleated RBC % 0 07/15/21 17:48: PT 13.7, INR 1.1, APTT 29.7 07/15/21 17:48: Sodium 122 L, Potassium 5.8 H, Chloride 90 L, Carbon Dioxide 17.0 L, Anion Gap 15, BUN 103 H*, Creatinine 7.03 H, Estim Creat Clear Calc 5.81, Est GFR (MDRD) Af Amer 7 L, Est GFR (MDRD) Non-Af 6 L, BUN/Creatinine Ratio 14.7, Glucose 87, Calcium 10.4 H, Total Bilirubin 0.70, AST 22, ALT 19, Alkaline Phosphatase 110, Troponin I High Sens 25, Total Protein 8.1, Albumin 3.2, Globulin 4.9 H, Albumin/Globulin Ratio 0.7 L 07/15/21 17:48: Lactic Acid 1.7 07/15/21 18:25: Urine Color Yellow, Urine Clarity Clear, Urine pH 5.0, Ur Specific [place] 1.025, Urine Protein 15 H, Urine Glucose (UA) Normal, Urine Ketones 5 H, Urine Occult Blood Negative, Urine Nitrite Negative, Urine Bilirubin 3 H, Urine Urobilinogen Normal, Ur Leukocyte Esterase 100 H, Urine RBC 0 SEEN, Urine WBC 0-5 SEEN, Ur Squamous Epith Cells 0 SEEN, Urine Bacteria 0 SEEN, Urine Mucus 0 SEEN Micro:Microbiology 07/15/21 17:45 Nasal Secretion SARS-CoV-2 Antigen (Rapid) - Final CT chest: Increased size of left upper lobe mass with bilateral pleural effusion Assessment & Plan Assessment/Plan In summary the patient is a 75 y/o F w/ PMHx: Chronic Systolic CHF/Nonischemic cardiomyopathy, Chronic COPD w/ Chronic Hypoxic Respiratory Failure, Chronic BL LE PVD/Stasis Ulcers w/ Chronic Lymphedema, Hx Breast CA, PAF, Tobacco use, Non-small cell lung CA, Hx SIADH w/ chronic hyponatremia, Chronic Fe Deficiency who presents to the [facility] ED on 07/15/21 with history of increasing fatigue, malaise, debility, acute renal failure, and possible metastatic non-small cell lung cancer. She never had treatment 3 years ago for her lung cancer and she is not a candidate for palliative chemotherapy. 1. Possible metastatic non-small cell lung cancer -Severe debility and malnutrition -She is not a candidate for palliative chemotherapy. -KEYTRUDA is not an option either, PD-L1 negative & no targetable mutations Plan: -I recommend hospice referral for pain and symptoms management 2. Adult failure to thrive: Patient with significant disheveled appearance, unable to care for self and from current presentation spouse unable to do so as well, APS involved, -Secondary to comorbidities and possible metastatic lung cancer, COPD and congestive heart failure. -Severe protein caloric malnutrition Plan: -Dietary consult -Possibly starting Megace 400mg daily 3. Chronic pain secondary to above -Sacral decubitus ulcers -Chronic lymphedema & PVD stasis ulcers Plan: -Wound care and prevention, -Pain management. Assessment & Plan Assessment/Plan (1) Non-small cell lung cancer: QUALIFIERS: Laterality: left Qualified Code(s): C34.92 - Malignant neoplasm of unspecified part of left bronchus or lung PLAN: -Awaiting results of CT abdomen pelvis -Family conference tomorrow to discuss plans of care -Hospice referral and address DNR status.
[2021-07-18] MEDS: Acetaminophen 325 MG Tablet 650 MG PO (21:17)
[2021-07-18] MEDS: MELATONIN 3 MG TABLET PO (21:17)
[2021-07-19 03:00] VITALS: PULSE 83
[2021-07-19 03:25] VITALS: BP 111/77; PULSE 72; RESP 16; TEMP 36.4; O2SAT 97
[2021-07-19] MEDS: Vancomycin 125 MG/5 ML Susp PO.SYRINGE PO (04:56)
[2021-07-19] MEDS: Lactated Ringers 1,000 ML 100 ML IV (04:58)
[2021-07-19 05:38] LABS: Absolute Lymphocyte Count 0.46 X10^3/uL (0.83-4.51); Absolute Neutrophil Count 8.4 X10^3/uL (2.0-7.7); Basophil# 0.02 X10^3/uL; Basophil% 0.2 % (0-1); Hematocrit 33.2 % (37-47); Hemoglobin 10.8 g/dL (12.0-15.0); Lymphocyte # 0.46 X10^3/ul (0.83-4.51); Mean Corp Hgb Conc 32.5 g/dL (32-36); Mean Corpuscular Hgb 30.7 pg (27.0-32.0); Mean Corpuscular Volume 94.3 fL (81-99); Mean Platelet Vol. 8.5 fl (6.2-12.0); Monocyte# 0.13 X10^3/uL; Monocyte% 1.4 % (0-10); NRBC Flagged by Analyzer 0 % (0-5); Neutrophil # 8.42 X10^3/uL (2.7-7.7); Neutrophil % 92.1 % (47-70); POSITIVE DIFFERENTIAL YES; Platelet Count 260 K/mm3 (150-450); RBC Distribution Width CV 15.7 % (11.6-14.6); RBC Distribution Width SD 53.6 fl (35.1-43.9); Red Blood Count 3.52 M/mm3 (4.2-5.4); White Blood Count 9.2 K/mm3 (4.4-11.0)
[2021-07-19 05:46] LABS: Differential Indicated SCAN CRITERIA MET
[2021-07-19 06:00] LABS: Anion Gap 7 (5-15); BUN 32 mg/dL (7-18); BUN/Creat Ratio 33.9 RATIO (10-20); Calcium,Total 9.1 mg/dL (8.5-10.1); Chloride 108 mmol/L (98-107); Creatinine, Serum 0.94 mg/dL (0.55-1.02); EST Glomerular Filtration Rate 62 mL/min (>60); Est Glom Filt Rate - Afr Amer 74 mL/min (>60); Estimated Creatinine Clearance 43.43 ml/min; Glucose 123 mg/dL (74-106); Potassium 4.5 mmol/L (3.5-5.1); Sodium Level 137 mmol/L (136-145)
[2021-07-19 06:22] LABS: Differential Comment SCANNED
[2021-07-19 06:44] VITALS: PULSE 93
[2021-07-19] MEDS: Multivitamins,Ther W-Minerals Tablet 1 TABLET PO (07:55)
[2021-07-19] MEDS: Loperamide 2 MG Capsule PO (07:55)
[2021-07-19 09:54] VITALS: BP 117/81; PULSE 73; RESP 16; TEMP 36.4; O2SAT 97
[2021-07-19] MEDS: Menthol/Lanolin/Calamine/Znox 113 GM Tube 1 APPLIC TOPICAL ×2 (09:56→14:30)
[2021-07-19] MEDS: Magnesium Chloride 64 MG Delay Rel.Tablet 128 MG PO (09:57)
[2021-07-19] MEDS: Escitalopram Oxalate 10 MG Tablet PO (09:57)
[2021-07-19] MEDS: Rivaroxaban 15 MG Tablet PO (10:01)
--- NOTE | 2021-07-19 10:10 | WOUNDNOTE ---
washed legs and feet with soap and water. pat dry. was able to remove more dry flaking skin. applied aloe vesta. placed Adaptic to the bleeding areas. covered with dry dressings. wrapped with kerlix. pt tolerated well.
[2021-07-19 11:04] VITALS: PULSE 84
--- NOTE | 2021-07-19 11:13 | CASEMGMT ---
Physicians spoke with patient and her about Hospice and they are agreeable to home with Hospice. SW spoke with patient's as patient was sleeping. SW confirmed they do want home with Hospice. SW explained how it works. Patient's said he wants to get her home today. SW told him SW will get things started and let them know they want to go home today. SW called Hospice with referral. SW let Ileana at Hospice know that they want to go home today. Information was faxed. Plan: home with Hospice Myrtle ERICKSON
--- NOTE | 2021-07-19 11:24 | CASEMGMT ---
REUBEN called [facility] and notified Rcahele that patient will be going home on Hospice. REUBEN also called Misbah at [facility] and left her a message letting her know. REUBEN did receive a call from Ileana at Hospice and they are meeting with patient and at 1230p. Myrtle ERICKSON
--- NOTE | 2021-07-19 11:39 | PCM.DC ---
Discharge Instructions Diet Discharge Diet: No restrictions Activity Discharge Activity: Return to Normal Activity Follow Up Care Test Results: Test results from this visit will be discussed in further detail at your follow-up appointment, if applicable. Discharge Plan Admission Admit Date/Time: 07/15/21 20:36 Primary Reason for Your Visit: Non-small cell lung cancer, failure to thrive Attending Provider: Gay Ovalle Primary Care Provider: Amber Sanders Consulting Providers: Flako May ; Aníbal Hilliard Instructions Additional Instructions / Restrictions: Patient Problems: Altered Health Status related to Hospitalization Patient Goals: *Optimal Level of Health *Keep Appointments *Medication Compliance *Remain Safe Discharge Orders/Prescriptions Prescriptions: New escitalopram oxalate 10 mg Tablet 10 mg PO DAILY Qty: 30 RF: 0 vancomycin 125 mg capsule 125 mg PO Q6H 7 Days Qty: 28 RF: 0 Continued gxisrama-lyh-zmau-FA-lutein 1 EACH tablet 1 tab PO DAILY RF: 0 fluticasone propion-salmeterol 1 PUFF inhaler 2 puff inhalation BID RF: 0 magnesium oxide 400 mg (241.3 mg magnesium) tablet 400 mg PO DAILY RF: 0 Xarelto 20 mg tablet 20 mg PO DAILY RF: 0 Spiriva Respimat 2.5 mcg/actuation mist 2 inh INHALATION BID RF: 0 ferrous sulfate [FeroSul] 325 mg (65 mg iron) tablet 325 mg PO QODAY@1200 RF: 0 acetaminophen 500 mg Tablet 1,000 mg PO Q6H PRN PRN (Reason: Pain Score 1-10) Qty: 0 RF: 0 Discontinued carvedilol 25 MG tablet 25 mg PO BID RF: 0 amoxicillin-pot clavulanate [Augmentin] 875-125 mg tablet 1 tab PO BID 4 Days Qty: 8 RF: 0 Referrals / Follow Up: [facility] [Outside] - See Referral Note (Home with hospice at discharge) Amber Sanders MD [Primary Care Provider] - Disposition Disposition (needs filled in before D/C Order can be placed): Hospice in Home
--- NOTE | 2021-07-19 11:42 | CASEMGMT ---
IMM(medicare rights form) explained to pt's (pt is sleeping) and awaiting hospice liasion. voices understanding and signs form for pt at this time. Original to chart and copy to . voices no further questions/concerns/needs. SStnoam MARION CM
--- NOTE | 2021-07-19 11:51 | DS.PCM_ITS ---
Documented by User: Teodora Parsons NP, TRAFFIC EXPERT-C 07/19/21 12:03 Providers Date of Admission: 07/15/21 Date of Discharge: 07/19/21 Primary Care Physician: Dr. Amber Sanders MD Consultations 07/15/21 21:06 Consult: Nephrology Routine Consulting Provider: Flako May Reason for Consult: ZA, Acute on chronic hyponatremia EMERGENT Consult: No MD Notified: Yes Date Notified: 07/16/21 Time Notified: 08:06 Method of Notification: Answering Service Consult: Onc/Wound/wood technologist Routine Comment: 07/18/21 13:24 Consult: Oncology/Hematology Routine Consulting Provider: Aníbal Hilliard Reason for Consult: Non sm cell lung cancer-lost follow up. previously followed with cindy/mary lou EMERGENT Consult: No Notified: Yes Date Notified: 07/18/21 Time Notified: 13:32 Method of Notification: voicemail left Reason For Visit: ZA, DIARRHEA, BL LE CHRONIC INFECTED WOUNDS Diagnosis Discharge Diagnosis (1) Non-small cell lung cancer: Status: Chronic Code(s): C34.90 - Malignant neoplasm of unspecified part of unspecified bronchus or lung Qualifiers: Laterality: left Qualified Code(s): C34.92 - Malignant neoplasm of unspecified part of left bronchus or lung Medications at Discharge Home Medications mighekgm-pue-ivgh-FA-lutein 1 tab PO DAILY 10/05/19 fluticasone propion-salmeterol 2 puff INHALATION BID 07/12/20 Spiriva Respimat 2 inh INHALATION BID 05/12/21 Xarelto 20 mg PO DAILY 05/12/21 magnesium oxide 400 mg PO DAILY 05/12/21 ferrous sulfate [FeroSul] 325 mg PO QODAY@1200 05/23/21 acetaminophen 1,000 mg PO Q6H PRN PRN #0 tab 05/26/21 escitalopram oxalate 10 mg PO DAILY #30 tab 07/19/21 vancomycin 125 mg PO Q6H 7 Days #28 cap 07/19/21 Hospital Course Operations None Procedures None Summary of Care Provided Minutes Spent on Discharge: 35 Hospital Course: Patient is a 75-year-old female admitted 07/15/2021 due to fatigue, weakness and diarrhea. 1. Acute kidney injury-suspect secondary to GI loss. Resolved with IV fluids. Nephrology consulted. Renal ultrasound without hydronephrosis. 2. Severe diarrhea-diarrhea has resolved. C. difficile antigen positive however toxin negative. Given intractable diarrhea prior to admission, will complete course of oral vancomycin. 3. History of breast cancer/non-small cell lung cancer-Chest CT with wedge shaped mass in the left upper lobe, progressed from prior study. Small bilateral pleural effusions. Oncology consulted. Not a candidate for palliativ e chemotherapy. Recommended hospice referral, patient and amendable. 4. Failure to thrive- Recent APS referral. Plan for home with hospice at discharge. 5. Acute on chronic hyponatremia/SIADH-resolved with IV fluids. 6. Chronic lower extremity venous stasis ulcerations/peripheral vascular disease/lymphedema-cellulitis ruled out. Discontinue further antibiotics. Patient has chronic buttock wound as well. Frequent position changes. Patient noted to have maggots on initial evaluation of lower extremities. Continue wound care. Lower extremities appear significantly improved following aggressive wound care. 7. Severe protein calorie malnutrition-as evidenced by muscle and fat loss, poor oral intake. Continue dietary supplementation per nutrition recommendations. 8. Chronic heart failure with reduced ejection fraction/nonischemic cardiomyopathy-no acute failure. 9. Chronic atrial fibrillation-on Xarelto. Carvedilol discontinued due to low blood pressure. 10. Chronic COPD with chronic hypoxic respiratory failure-continue supplemental oxygen to maintain O2 above 90%. As needed inhaler. 11. Tobacco dependence-encouraged cessation Physical Exam Const alert, oriented x3 and no apparent distress Orientation / Consciousness: awake, oriented to person, oriented to place and oriented to time Nutritional Appearance: cachectic HEENT normocephalic and moist oral mucous membranes Eyes PERRL, EOMs intact bilaterally and conjunctivae normal Neck no lymphadenopathy Resp normal respiratory effort and clear to auscultation bilaterally Cardio regular rate, regular rhythm and no murmurs Peripheral Pulses: pulses 2+ throughout GI normal to inspection, nondistended, normoactive bowel sounds, non-tender and non-distended Extremity normal to inspection Skin no rashes or lesions noted Skin Narrative: Lower extremity venous stasis skin changes with excoriation, dressings intact. Superficial buttock wounds, dressing intact. Lesions: no lesions Rashes: no rashes Trauma: no lacerations or abrasions Neuro CN's II-XII intact bilaterally, no focal motor deficits, no sensory deficits noted and deep tendon reflexes 2+ bilaterally Psych mental status grossly normal Mood & Affect: flat affect Patient seen and examined prior to discharge. Physical assessment as noted above. Home with hospice transition. This patient was seen by RAFAEL Le under the supervision of Dr. Ovalle. Medical Records Data Medical Nutrition Assessment Dietitian: Malnutrition Criteria Met Start: 07/16/21 14:48 Freq: Status: Active Protocol: Document 07/18/21 14:35 RMA (Rec: 07/18/21 14:36 RMA [id number]) Nutrition Malnutrition Evidence of Malnutrition Exists Yes Malnutrition (severe): Acute Illness/Injury Evidenced By Suboptimal Energy Intake ( Severe),Weight Loss (Severe), Physical Changes (Moderate) Clinical Problem Acute Disease or Injury Related Malnutrition Etiology Severe malnutrition in the context of acute illness/ injury related to inadequate oral intake & increased nutrition needs Signs/Symptoms as evidenced by pt w/ 17% wt loss x 1 1/2 month, pt report pt with poor intake per comments pt consuming </= 50% energy intake compared to pt estimated nutrition needs x >/=5 days, pt with no PO intake x 3 day prior to admission, pt w/ increased protein needs d/t lower extremity wounds, and pt w/ moderates muscle/fat wasting observed in temporal & orbital regions. Status Active Problem Recommendation Dietitian Recommendations/Changes Will liberalize pt diet to regular/no added salt d/t poor PO intake & s/s of malnutrition. Will provide ONS: ensure enlive 120 ml w/ medpass, Pj 1 pkt BID w/ B&L, and ensure pudding or magic cup w/ pt meals. May need to consider TF support if PO does not improve and weight continues to decline. Weight / BMI Weight Weight: 150 lb 12.739 oz Body Mass Index (BMI) 23.3 ABG / Lab / Microbiology Data Result Diagrams: 07/19/21 05:26 07/19/21 05:26 Laboratory: Laboratory Results - last 24 hr 07/19/21 05:26: WBC 9.2, RBC 3.52 L, Hgb 10.8 L, Hct 33.2 L, MCV 94.3, MCH 30.7, MCHC 32.5, RDW Std Deviation 53.6 H, RDW Coeff of Malini 15.7 H, Plt Count 260, MPV 8.5, Immature Gran % (Auto) 1.300 H, Neut % (Auto) 92.1 H, Lymph % (Auto) 5.0 L, [place] % (Auto) 1.4, Eos % (Auto) 0.0, Baso % (Auto) 0.2, Absolute Neuts (auto) 8.4 H, Absolute Lymphs (auto) 0.46 L, Nucleated RBC % 0, Differential Comment SCANNED 07/19/21 05:26: Sodium 137, Potassium 4.5, Chloride 108 H, Carbon Dioxide 22.0, Anion Gap 7, BUN 32 H, Creatinine 0.94, Estim Creat Clear Calc 43.43, Est GFR (MDRD) Af Amer 74, Est GFR (MDRD) Non-Af 62, BUN/Creatinine Ratio 33.9 H, Glucose 123 H, Calcium 9.1 Microbiology: Microbiology 07/16/21 14:10 Wound - Leg, Left Gram Stain - Final 07/16/21 14:10 Wound - Leg, Left Wound Culture - Final Staphylococcus sciuri Pseudomonas aeroginosa 07/15/21 16:04 Blood Culture (Wb) - Anticubital Left Blood Culture - Preliminary No growth in 48 hours. 07/15/21 17:48 Blood Culture (Wb) - Anticubital Right Blood Culture - Preliminary No growth in 48 hours. 07/15/21 18:25 Urine, Catheterized Urine Culture - Final Enterobacter aerogenes 07/15/21 18:38 Stool Enteric Bacteriology - Final 07/15/21 18:38 Stool C. difficile GDH Antigen & Toxins - Final 07/15/21 18:38 Stool C. difficile DNA Amplification - Final 07/15/21 17:45 Nasal Secretion SARS-CoV-2 Antigen (Rapid) - Final Radiography Diagnostic Testing: Radiology Impression Abdomen/Pelvis CT 07/18/21 09:42 IMPRESSION: 1. Right lower lobe pneumonia. 2. Small bilateral pleural effusions. 3. Cardiomegaly. 4. Gallbladder sludge's/stones. 5. Diverticulosis coli. Individualized dose optimization techniques were used for this CT. at 1711 Reported and signed by: Alex Silver MD Electronically Signed: Alex Silver MD at 17:10 EDT Tel , Service support , D/C Instructions Discharge Diet: No restrictions Meaningful Use Info Meaningful Use Diagnoses (Choose all that apply): None applicable Discharge Plan Admission Admit Date/Time: 07/15/21 20:36 Primary Reason for Your Visit: Non-small cell lung cancer, failure to thrive Attending Provider: Gay Ovalle Primary Care Provider: Amber Sanders Consulting Providers: Flako May ; Aníbal Hilliard Instructions Additional Instructions / Restrictions: Patient Problems: Altered Health Status related to Hospitalization Patient Goals: *Optimal Level of Health *Keep Appointments *Medication Compliance *Remain Safe Discharge Orders/Prescriptions Prescriptions: New escitalopram oxalate 10 mg Tablet 10 mg PO DAILY Qty: 30 RF: 0 vancomycin 125 mg capsule 125 mg PO Q6H 7 Days Qty: 28 RF: 0 Continued ciwmcdsb-tor-bxfm-FA-lutein 1 EACH tablet 1 tab PO DAILY RF: 0 fluticasone propion-salmeterol 1 PUFF inhaler 2 puff inhalation BID RF: 0 magnesium oxide 400 mg (241.3 mg magnesium) tablet 400 mg PO DAILY RF: 0 Xarelto 20 mg tablet 20 mg PO DAILY RF: 0 Spiriva Respimat 2.5 mcg/actuation mist 2 inh INHALATION BID RF: 0 ferrous sulfate [FeroSul] 325 mg (65 mg iron) tablet 325 mg PO QODAY@1200 RF: 0 acetaminophen 500 mg Tablet 1,000 mg PO Q6H PRN PRN (Reason: Pain Score 1-10) Qty: 0 RF: 0 Discontinued carvedilol 25 MG tablet 25 mg PO BID RF: 0 amoxicillin-pot clavulanate [Augmentin] 875-125 mg tablet 1 tab PO BID 4 Days Qty: 8 RF: 0 Referrals / Follow Up: [facility] [Outside] - See Referral Note (Home with hospice at discharge) Amber Sanders MD [Primary Care Provider] - Disposition Disposition (needs filled in before D/C Order can be placed): Hospice in Home Documented by User: Dr. Gay Ovalle DO 07/19/21 12:47 Providers Date of Admission: 07/15/21 Reason For Visit: ZA, DIARRHEA, BL LE CHRONIC INFECTED WOUNDS Medications at Discharge Home Medications lfnxljch-oue-rfsv-FA-lutein 1 tab PO DAILY 10/05/19 fluticasone propion-salmeterol 2 puff INHALATION BID 07/12/20 Spiriva Respimat 2 inh INHALATION BID 05/12/21 Xarelto 20 mg PO DAILY 05/12/21 magnesium oxide 400 mg PO DAILY 05/12/21 ferrous sulfate [FeroSul] 325 mg PO QODAY@1200 05/23/21 acetaminophen 1,000 mg PO Q6H PRN PRN #0 tab 05/26/21 escitalopram oxalate 10 mg PO DAILY #30 tab 07/19/21 vancomycin 125 mg PO Q6H 7 Days #28 cap 07/19/21 Hospital Course Summary of Care Provided Minutes Spent on Discharge: 38 Hospital Course: Mrs. Vallejo is a 75-year-old white female who presented to the emergency department at [facility] on 07/15/2021 with a chief complaint of fatigue, weakness, malaise, and diarrhea. Her spouse gave most of her history and brought her to the emergency department for evaluation given her above symptoms. Upon presentation the patient was extremely disheveled and her lower extremity chronic wounds were noted to have maggots in them which prompted an APS evaluation by the ED staff. Her blood pressure was initially low at 70/53 but this did improve with fluid bolus, her respiratory rate was normal she was afebrile and her oxygen saturations were 94 to 99% on room air. Her CBC showed a leukocytosis and and erythrocytosis. Her CMP showed a low sodium at 122, hyperkalemia at 5.8, a bicarb of 17, and anion gap of 15, a BUN and creatinine of 103/7.03, her lactic acid was normal and her hepatic profile was otherwise unremarkable. Her UA showed an elevated specific gravity but otherwise showed no signs of UTI. A rapid Covid test was negative. Her EKG s howed rate controlled atrial fibrillation. Her chest x-ray showed no airspace disease and a left stable perihilar mass. Given her wounds plain films were done of her feet and showed no bony destructive processes. She was admitted to PCU given her hyperkalemia and started on vancomycin and Zosyn as well as IV fluids. Consultations were made to nephrology and oncology during her hospitalization. Her markedly elevated renal function improved significantly with IV hydration only and was normalized upon discharge. Per discussion with her she had had significant weight loss and her p.o. intake was poor and given her malignancy history a CT of her chest was performed which showed an e nlarged left sided mass. Oncology was consulted for evaluation as the patient desired aggressive treatment. I did tell her that I doubt she would be a candidate for any aggressive treatment prior to consultation to oncology given her poor performance status and her overall condition but she did want to discuss things with him. She was seen by oncology and he did note she had a history of stereotactic radiation 3 years ago for adenocarcinoma but has progression of disease on her CT. A CT of her abdomen pelvis did not show any notable metastatic disease at this time but her CT of her chest showed enlarging lung mass and she is not a surgical candidate and was not a candidate for palliative chemo or immunotherapy and therefore a referral to hospice was made. CODE STATUS was changed to DNR CC oh and she was discharged home with hospice on 07/19/2021 Discharge diagnoses: Diarrhea-now resolved C. difficile associated colitis ZA-resolved Lung adenocarcinoma-worsening Hypotension-resolved Metabolic acidosis-resolved SIADH with chronic hyponatremia Acute on chronic bilateral lower extremity venous stasis ulcerations Chronic buttock pressure ulcer Severe malnutrition Compensated nonischemic cardiomyopathy Chronic atrial fibrillation COPD Chronic hypoxic respiratory failure History of breast cancer Ongoing tobacco abuse Depression Adult failure to thrive Physical Exam Const alert, oriented x3 and no apparent distress Constitutional Narrative: Thin, emaciated, older white female sitting up in bed, appears comfortable, at the bedside, affect remains markedly flat but patient is more interactive than she was on admission General Appearance: cooperative, comfortable, disheveled and frail Orientation / Consciousness: awake Exam Limitations: no limitations Nutritional Appearance: cachectic, underweight and thin HEENT normocephalic, head/scalp atraumatic, hearing grossly normal bilaterally and moist oral mucous membranes HEENT Narrative: No thrush, dentition poor Eyes PERRL, EOMs intact bilaterally and conjunctivae normal Neck no lymphadenopathy Neck Narrative: Trachea midline, no thyroid enlargement noted Resp normal respiratory effort, no retractions, no use of accessory muscles and clear to auscultation bilaterally Resp Narrative: Diffusely diminished but clear, intermittent cough that is rhonchorous sounding Auscultation: Negative for crackles, rales, rhonchi or wheezes Cardio regular rate, regular rhythm, S1 normal heart sound, S2 normal heart sound, no murmurs, no rub, no gallops, no clicks and no JVD Peripheral Pulses: pulses 2+ throughout GI normal to inspection, nondistended, normoactive bowel sounds, soft to palpation, non-tender and non-distended GI Narrative: Very thin Extremity normal to inspection Extremity Narrative: Bilateral lower extremity edema edema-trace, pitting, bilateral wounds and erythema Skin no rashes or lesions noted, skin turgor normal, no jaundice, no petechiae and no mottling Skin Narrative: Lower extremity venous stasis skin changes with excoriation, dressings intact. Superficial buttock wounds, dressing intact., Overall skin condition is poor patchy erythematous changes Lesions: no lesions Rashes: no rashes Trauma: no lacerations or abrasions Neuro oriented x3, CN's II-XII intact bilaterally, moves all extremities, no focal motor deficits, no sensory deficits noted and deep tendon reflexes 2+ bilaterally Neuro Narrative: Marked generalized weakness Sensorium / Orientation: awake and alert Psych mental status grossly normal Psych Narrative: mood seems a bit better today, affect remains flat Mood & Affect: depressed and flat affect ABG / Lab / Microbiology Data Result Diagrams: 07/19/21 05:26 07/19/21 05:26 Discharge Plan Admission Admit Date/Time: 07/15/21 20:36 Primary Reason for Your Visit: Non-small cell lung cancer, failure to thrive Attending Provider: Gay Ovalle Primary Care Provider: Amber Sanders Consulting Providers: Flako May ; Aníbal Hilliard Instructions Additional Instructions / Restrictions: Patient Problems: Altered Health Status related to Hospitalization Patient Goals: *Optimal Level of Health *Keep Appointments *Medication Compliance *Remain Safe Discharge Orders/Prescriptions Prescriptions: New escitalopram oxalate 10 mg Tablet 10 mg PO DAILY Qty: 30 RF: 0 vancomycin 125 mg capsule 125 mg PO Q6H 7 Days Qty: 28 RF: 0 Continued chloying-zev-kcrx-FA-lutein 1 EACH tablet 1 tab PO DAILY RF: 0 fluticasone propion-salmeterol 1 PUFF inhaler 2 puff inhalation BID RF: 0 magnesium oxide 400 mg (241.3 mg magnesium) tablet 400 mg PO DAILY RF: 0 Xarelto 20 mg tablet 20 mg PO DAILY RF: 0 Spiriva Respimat 2.5 mcg/actuation mist 2 inh INHALATION BID RF: 0 ferrous sulfate [FeroSul] 325 mg (65 mg iron) tablet 325 mg PO QODAY@1200 RF: 0 acetaminophen 500 mg Tablet 1,000 mg PO Q6H PRN PRN (Reason: Pain Score 1-10) Qty: 0 RF: 0 Discontinued carvedilol 25 MG tablet 25 mg PO BID RF: 0 amoxicillin-pot clavulanate [Augmentin] 875-125 mg tablet 1 tab PO BID 4 Days Qty: 8 RF: 0 Referrals / Follow Up: [facility] [Outside] - See Referral Note (Home with hospice at discharge) Amber Sanders MD [Primary Care Provider] - Disposition Disposition (needs filled in before D/C Order can be placed): Hospice in Home Charges/Coding Visit Charges Inpatient E&M: 05690 Disch Hosp
--- NOTE | 2021-07-19 11:57 | PCM.PN.BLA ---
Progress Note Condition unchanged. Respond to questions, severe debility. Chronic cough but no shortness of breath. She denies nausea, vomiting, or diarrhea No significant pain. Physical Exam Const General Appearance: ill appearing Orientation / Consciousness: confused Eyes PERRL Neck full ROM, no lymphadenopathy and supple Lymph Lymphatic: no lymphadenopathy noted Resp Resp Narrative: Diminished breath sounds lung bases. GI normal to inspection, nondistended, normoactive bowel sounds Assessment & Plan Assessment/Plan (1) Non-small cell lung cancer: QUALIFIERS: Laterality: left Qualified Code(s): C34.92 - Malignant neoplasm of unspecified part of left bronchus or lung PLAN: -Previous SBRT 3 years ago for adenocarcinoma lung cancer. Progression of disease on CT scan of chest, and possible metastatic disease. -She is not a candidate for palliative chemotherapy or immunotherapy. -Patient and family agree to hospice -Consider Megace 400mg for anorexia and weight loss -DNR status addressed. (2) COPD (chronic obstructive pulmonary disease): PLAN: -Consider low-dose morphine for dyspnea -Continue rescue inhalers. (3) Acute on chronic systolic (congestive) heart failure: PLAN: -Stable, creatinine back to baseline -Continue Xarelto for atrial fibrillation -Follow-up with PCP
--- NOTE | 2021-07-19 12:06 | PHA.DC.MR ---
Pharmacy Service has performed discharge medication reconciliation for this patient. The patient's discharge medication list was reviewed for discrepancies and discrepancies were resolved. Home Medications lkoplkwp-hrn-imqu-FA-lutein 1 tab PO DAILY 10/05/19 fluticasone propion-salmeterol 2 puff INHALATION BID 07/12/20 Spiriva Respimat 2 inh INHALATION BID 05/12/21 Xarelto 20 mg PO DAILY 05/12/21 magnesium oxide 400 mg PO DAILY 05/12/21 ferrous sulfate [FeroSul] 325 mg PO QODAY@1200 05/23/21 acetaminophen 1,000 mg PO Q6H PRN PRN #0 tab 05/26/21 escitalopram oxalate 10 mg PO DAILY #30 tab 07/19/21 vancomycin 125 mg PO Q6H 7 Days #28 cap 07/19/21
--- NOTE | 2021-07-19 13:30 | CASEMGMT ---
Patient's wants to get patient home as soon as possible. REUBEN arranged for patient to get picked up at 2p via cot by [facility]. SW notified church secretary, RN, patient's , and Jeanette from Hospice. REUBEN faxed d/c summary to Hospice. Plan: d/c home with [facility]. [facility] transported via cot. Myrtle ERICKSON
--- NOTE | 2021-07-19 14:11 | CASEMGMT ---
Addendum entered by Myrtle Alberto 07/19/21 14:17: SW did finally get a hold of Ileana at Hospice and let her know change in pick and shovel man time. Myrtle ERICKSON Original Note: [facility] called and said they are running behind. They will be here between 3 and 330. SW attempted 2 times to call Hospice to notify them, however SW as on hold for 10 minutes with no one answering. Patient's was aware and RN is aware. Myrtle ERICKSON
== END 2021-07-19 15:21 | disposition hospice, home (50) | DRG 371 ==
LOC: ED 18:18 → PCU 19:54
PROVIDERS: Nurse Practitioner Family; Admitting Provider Family Medicine; Emergency Provider Emergency Medicine; PCP Internal Medicine; Referring Provider Family Medicine; Visit Provider Internal Medicine
DX: A04.72 Enterocolitis due to Clostridium difficile, not specified as recurrent (principal); E43 Unspecified severe protein-calorie malnutrition; N17.9 Acute kidney failure, unspecified; I42.8 Other cardiomyopathies; I50.22 Chronic systolic (congestive) heart failure; J96.11 Chronic respiratory failure with hypoxia; C34.12 Malignant neoplasm of upper lobe, left bronchus or lung; I48.20 Chronic atrial fibrillation, unspecified; E22.2 Syndrome of inappropriate secretion of antidiuretic hormone; E87.2 Acidosis; L97.919 Non-pressure chronic ulcer of unspecified part of right lower leg with unspecified severity; L97.922 Non-pressure chronic ulcer of unspecified part of left lower leg with fat layer exposed; L97.921 Non-pressure chronic ulcer of unspecified part of left lower leg limited to breakdown of skin; Z68.23 Body mass index [BMI] 23.0-23.9, adult; I11.0 Hypertensive heart disease with heart failure; E87.5 Hyperkalemia; L89.309 Pressure ulcer of unspecified buttock, unspecified stage; I87.2 Venous insufficiency (chronic) (peripheral); B87.1 Wound myiasis; Z20.822 Contact with and (suspected) exposure to COVID-19; E86.1 Hypovolemia; E86.0 Dehydration; I89.0 Lymphedema, not elsewhere classified; R62.7 Adult failure to thrive; I95.9 Hypotension, unspecified; J44.9 Chronic obstructive pulmonary disease, unspecified; I36.1 Nonrheumatic tricuspid (valve) insufficiency; I34.0 Nonrheumatic mitral (valve) insufficiency; I27.21 Secondary pulmonary arterial hypertension; M81.0 Age-related osteoporosis without current pathological fracture; F32.9 Major depressive disorder, single episode, unspecified; F41.9 Anxiety disorder, unspecified; F17.210 Nicotine dependence, cigarettes, uncomplicated; Z79.01 Long term (current) use of anticoagulants; Z79.899 Other long term (current) drug therapy; Z99.81 Dependence on supplemental oxygen; Z85.3 Personal history of malignant neoplasm of breast; Z90.12 Acquired absence of left breast and nipple
CPT/HCPCS: 36415; 51702; 71045; 71250; 73630; 74177; 76770; 80048; 80053; 80202; 81001; 82570; 83605; 83735; 84100; 84300; 84484; 85025; 85610; 85652; 85730; 86140; 87040; 87070; 87077; 87086; 87088; 87177; 87184; 87186; 87205; 87209; 87426; 87493; 87506; 93005; 94640; 97163; 97166; 97530; 97802; 99285; 99406; J7030; J7050; J7120; Q9967; A4216